=== PATIENT | female | born 1995 | race Caucasian/White ===

== ENCOUNTER 2022-09-23 14:35 | Outpatient (OUT) | payer BC, OTHER, SELFPAY ==
--- NOTE | 2022-09-23 14:37 | US_ITS ---
[address] [address] Patient Name: CARLOS ADAMS MRN: [id number] date: 1995 Sex: F Assigned Patient Location: [place] Current Patient Location: [place] Accession/Order Number: [id number] Exam Date: 09/23/2022 14:37 Report Date: 09/23/2022 16:47 At the request of: EDDIE VALIENTE Procedure: US OB growth EXAMINATION: US OB growth HISTORY: SIZE INCONSISTENT WITH DATES COMPARISON: No relevant comparison available. FINDINGS: Saavedra intrauterine gestation position: Cephalic presentation, longitudinal lie Amniotic fluid volume: 13.0 cm, normal. Largest fluid pocket: 4.8 cm Heart rate: 138 bpm BPD: 8.4 cm, 34 weeks 0 days, 65% Head circumference: 31.8 cm, 35 weeks 5 days, 77% Abdominal circumference: 32.5 cm, 36 weeks 3 days, greater than 97% Femur length: 7 cm, 35 weeks 5 days, 92% Estimated weight: 6 lbs. 2 oz., greater than 97% Clinical age: 33 weeks 2 days Clinical ROLANDO: 11/09/2022 Ultrasound age: 35 weeks 3 days Ultrasound ROLANDO: 10/25/2022 IMPRESSION: Large for gestational age with abdominal circumference and estimated weight greater than the 97th percentile Electronically authenticated by: EDITH WILLIS Date: 09/23/2022 16:47
== END 2022-09-23 14:36 ==
LOC: US 14:35
PROVIDERS: Visit Provider Obstetrics & Gynecology
DX: O26.843 Uterine size-date discrepancy, third trimester (principal); Z3A.33 33 weeks gestation of pregnancy
CPT/HCPCS: 76816

== ENCOUNTER 2022-10-04 07:44 | Outpatient (OUT) | payer BC, OTHER, SELFPAY ==
[2022-10-04 17:22] VITALS: BP 114/74; PULSE 87
--- NOTE | 2022-10-04 17:56 | US_ITS ---
[address] [address] Patient Name: CARLOS ADAMS MRN: [id number] date: 1995 Sex: F Assigned Patient Location: [facility] Current Patient Location: Accession/Order Number: [id number] Exam Date: 10/04/2022 18:00 Report Date: 10/07/2022 10:36 At the request of: EDDIE VALIENTE Procedure: US OB growth EXAMINATION: US OB growth HISTORY: LGA 036.60X9 ; large for gestational age COMPARISON: Ultrasound OB growth 09/23/2022 FINDINGS: Heart Rate: 159.8 bpm Number: 1.0 Position: CEPHALIC Amniotic Fluid Volume: 14.6 cm Maximum Vertical Pocket: 5.7 cm BIOMETRY: BPD: 8.9 cm cm; 36 weeks 1 days; 84% HC: 33.5 cmcm; 38 weeks 2 days; 92% AC: 36.1 cm cm; 40 weeks 0 days; >97% FL: 6.9 cm cm; 35 weeks 3 days; 59% EFW: 3468.7 grams; >97% FL/AC: 19.2 FL/BPD: 77.4 HC/AC: 0.9 GESTATIONAL AGE: Age by EDC: 34 weeks 6 days ROLANDO by EDC: 11/09/2022 Age by US: 37 weeks 3 days ROLANDO by US: 10/22/2022 IMPRESSION: 1. Single live intrauterine with growth detailed above. 2. Estimated weight is greater than 97th percentile. Electronically authenticated by: ABRIL SCANLON Date: 10/07/2022 10:36
--- NOTE | 2022-10-04 17:56 | US_ITS ---
[address] [address] Patient Name: CARLOS ADAMS MRN: [id number] date: 1995 Sex: F Assigned Patient Location: [facility] Current Patient Location: Accession/Order Number: [id number] Exam Date: 10/04/2022 18:00 Report Date: 10/07/2022 10:36 At the request of: EDDIE VALIENTE Procedure: US OB BPP w non-stress EXAMINATION: US OB BPP w non-stress HISTORY: LGA O36.60X9 COMPARISON: Ultrasound growth 09/23/2022 TECHNIQUE: Ultrasound biophysical profile was performed in the radiology department. BREATHING MOVEMENTS: 2.0 GROSS BODY MOVEMENTS: 2.0 TONE: 2.0 QUALITATIVE AMNIOTIC FLUID VOLUME: 2.0 PRESENTATION: CEPHALIC HEART RATE: 159.8 bpm bpm. AMNIOTIC FLUID VOLUME: 14.6 cm GESTATIONAL AGE: 34 weeks 6 days CONCLUSION: Total biophysical profile score 8.0. Electronically authenticated by: ABRIL SCANLON Date: 10/07/2022 10:36
== END 2022-10-04 19:00 | disposition home or self-care (01) ==
LOC: US 17:11 → FBC 17:17
PROVIDERS: Visit Provider Obstetrics & Gynecology
DX: O36.63X0 Maternal care for excessive fetal growth, third trimester, not applicable or unspecified (principal); Z3A.34 34 weeks gestation of pregnancy
CPT/HCPCS: 76816; 76818

== ENCOUNTER 2022-10-08 10:06 | Outpatient (OUT) | payer BC, OTHER, SELFPAY ==
[2022-10-08 10:21] VITALS: BP 106/64; PULSE 74
== END 2022-10-08 10:52 | disposition home or self-care (01) ==
LOC: US 10:07 → FBC 10:08
PROVIDERS: Visit Provider Obstetrics & Gynecology
DX: O36.60X0 Maternal care for excessive fetal growth, unspecified trimester, not applicable or unspecified (principal); Z3A.00 Weeks of gestation of pregnancy not specified
CPT/HCPCS: 59025

== ENCOUNTER 2022-10-11 10:03 | Outpatient (OUT) | payer BC, OTHER, SELFPAY ==
--- NOTE | 2022-10-11 10:03 | US_ITS ---
[address] [address] Patient Name: CARLOS ADAMS MRN: [id number] date: 1995 Sex: F Assigned Patient Location: [facility] Current Patient Location: Accession/Order Number: [id number] Exam Date: 10/11/2022 10:04 Report Date: 10/11/2022 16:34 At the request of: EDDIE VALIENTE Procedure: US OB BPP w non-stress EXAMINATION: US OB BPP w non-stress HISTORY: O36.60X9 LGA COMPARISON: No relevant comparison available. TECHNIQUE: Ultrasound biophysical profile was performed in the radiology department. FINDINGS: BREATHING MOVEMENTS: 2.0 GROSS BODY MOVEMENTS: 2.0 TONE: 2.0 QUALITATIVE AMNIOTIC FLUID VOLUME: 2.0 PRESENTATION: CEPHALIC HEART RATE: 146.7 bpm H.B./min AMNIOTIC FLUID VOLUME: 13.9 cm cm GESTATIONAL AGE: 35 weeks 6 days CONCLUSION: Total biophysical profile score: 8.0 Electronically authenticated by: EDITH WILLIS Date: 10/11/2022 16:34
== END 2022-10-11 10:56 | disposition home or self-care (01) ==
LOC: US 10:03 → FBC 10:06
PROVIDERS: Visit Provider Obstetrics & Gynecology
DX: O36.63X0 Maternal care for excessive fetal growth, third trimester, not applicable or unspecified (principal); Z3A.35 35 weeks gestation of pregnancy
CPT/HCPCS: 76818

== ENCOUNTER 2022-10-15 10:00 | Outpatient (OUT) | payer BC, OTHER, SELFPAY ==
[2022-10-15 10:07] VITALS: BP 110/68; PULSE 77
== END 2022-10-15 10:30 | disposition home or self-care (01) ==
LOC: FBCO 10:04 → FBC 10:04
PROVIDERS: Visit Provider Obstetrics & Gynecology
DX: O36.6 Maternal care for excessive fetal growth (principal)
CPT/HCPCS: 59025; 87081

== ENCOUNTER 2022-10-15 21:52 | Outpatient (REF) | payer BC, OTHER, SELFPAY | END 2022-10-15 21:53 | disposition home or self-care (01) | LOC: LAB 21:52 | PROVIDERS: Visit Provider Obstetrics & Gynecology | DX: Z34.93 Encounter for supervision of normal pregnancy, unspecified, third trimester (principal) | CPT/HCPCS: 87081 ==

== ENCOUNTER 2022-10-18 09:55 | Outpatient (OUT) | payer BC, OTHER, SELFPAY ==
--- NOTE | 2022-10-18 09:56 | US_ITS ---
[address] [address] Patient Name: CARLSO ADAMS MRN: [id number] date: 1995 Sex: F Assigned Patient Location: [facility] Current Patient Location: Accession/Order Number: [id number] Exam Date: 10/18/2022 09:57 Report Date: 10/18/2022 19:04 At the request of: EDDIE VALIENTE Procedure: US OB BPP w non-stress EXAMINATION: US OB BPP w non-stress HISTORY: O36.60X9 LARGE FOR GESTATIONAL AGE COMPARISON: Ultrasound biophysical 10/11/2022 TECHNIQUE: Ultrasound biophysical profile was performed in the radiology department. BREATHING MOVEMENTS: 2.0 GROSS BODY MOVEMENTS: 2.0 TONE: 2.0 QUALITATIVE AMNIOTIC FLUID VOLUME: 2.0 PRESENTATION: CEPHALIC HEART RATE: 153.4 bpm bpm. AMNIOTIC FLUID VOLUME: 14.8 cm GESTATIONAL AGE: 36 weeks 6 days CONCLUSION: Total biophysical profile score 8.0. Electronically authenticated by: ABRIL SCANLON Date: 10/18/2022 19:04
[2022-10-18 10:33] VITALS: BP 110/69; PULSE 74
== END 2022-10-18 11:10 | disposition home or self-care (01) ==
LOC: US 09:55 → FBC 09:57
PROVIDERS: Visit Provider Obstetrics & Gynecology
DX: O36.63X0 Maternal care for excessive fetal growth, third trimester, not applicable or unspecified (principal); Z3A.36 36 weeks gestation of pregnancy
CPT/HCPCS: 76818

== ENCOUNTER 2022-10-22 10:04 | Outpatient (OUT) | payer BC, OTHER, SELFPAY ==
[2022-10-22 10:14] VITALS: BP 118/76; PULSE 81
== END 2022-10-22 10:34 | disposition home or self-care (01) ==
LOC: FBCO 10:05 → FBC 10:07
PROVIDERS: Visit Provider Midwife
DX: O36.63X0 Maternal care for excessive fetal growth, third trimester, not applicable or unspecified (principal); Z3A.00 Weeks of gestation of pregnancy not specified
CPT/HCPCS: 59025

== ENCOUNTER 2022-10-25 10:02 | Outpatient (OUT) | payer BC, OTHER, SELFPAY ==
--- NOTE | 2022-10-25 10:03 | US_ITS ---
[address] [address] Patient Name: CARLOS ADAMS MRN: [id number] date: 1995 Sex: F Assigned Patient Location: [facility] Current Patient Location: Accession/Order Number: [id number] Exam Date: 10/25/2022 10:07 Report Date: 10/25/2022 18:07 At the request of: EDDIE VALIENTE Procedure: US OB BPP w non-stress EXAMINATION: US OB BPP w non-stress HISTORY: LGA 9O36.60X9 COMPARISON: No relevant comparison available. TECHNIQUE: Ultrasound biophysical profile was performed in the radiology department. FINDINGS: BREATHING MOVEMENTS: 2.0 GROSS BODY MOVEMENTS: 2.0 TONE: 2.0 QUALITATIVE AMNIOTIC FLUID VOLUME: 2.0 PRESENTATION: CEPHALIC HEART RATE: 147.5 bpm H.B./min AMNIOTIC FLUID VOLUME: 12.9 cm cm GESTATIONAL AGE: 37 weeks 6 days CONCLUSION: Total biophysical profile score: 8.0 Electronically authenticated by: EDITH WILLIS Date: 10/25/2022 18:07
[2022-10-25 10:41] VITALS: BP 115/75; PULSE 82
== END 2022-10-25 11:06 | disposition home or self-care (01) ==
LOC: US 10:02 → FBC 10:03
PROVIDERS: Visit Provider Obstetrics & Gynecology
DX: O36.63X0 Maternal care for excessive fetal growth, third trimester, not applicable or unspecified (principal); Z3A.37 37 weeks gestation of pregnancy
CPT/HCPCS: 59025; 76818

== ENCOUNTER 2022-10-29 10:12 | Outpatient (OUT) | payer BC, OTHER, SELFPAY ==
[2022-10-29 10:27] VITALS: BP 124/70; PULSE 102
== END 2022-10-29 10:49 | disposition home or self-care (01) ==
LOC: FBCO 10:13 → FBC 10:14
PROVIDERS: Visit Provider Obstetrics & Gynecology
DX: O36.6 Maternal care for excessive fetal growth (principal); Z3A.00 Weeks of gestation of pregnancy not specified
CPT/HCPCS: 59025

== ENCOUNTER 2022-11-01 10:00 | Outpatient (OUT) | payer BC, OTHER, SELFPAY ==
--- NOTE | 2022-11-01 10:13 | US_ITS ---
[address] [address] Patient Name: CARLOS ADAMS MRN: [id number] date: 1995 Sex: F Assigned Patient Location: [facility] Current Patient Location: Accession/Order Number: [id number] Exam Date: 11/01/2022 10:15 Report Date: 11/01/2022 15:39 At the request of: EDDIE VALIENTE Procedure: US OB BPP w non-stress EXAMINATION: US OB BPP w non-stress HISTORY: LGA O36.60X9 COMPARISON: Ultrasound biophysical 10/25/2022 TECHNIQUE: Ultrasound biophysical profile was performed in the radiology department. BREATHING MOVEMENTS: 2.0 GROSS BODY MOVEMENTS: 2.0 TONE: 2.0 QUALITATIVE AMNIOTIC FLUID VOLUME: 2.0 PRESENTATION: CEPHALIC HEART RATE: 147.5 bpm bpm. AMNIOTIC FLUID VOLUME: 8.0 cm GESTATIONAL AGE: 38 weeks 6 days CONCLUSION: Total biophysical profile score 8.0. Electronically authenticated by: ABRIL SCANLON Date: 11/01/2022 15:39
--- NOTE | 2022-11-01 10:14 | US_ITS ---
[address] [address] Patient Name: CARLOS ADAMS MRN: [id number] date: 1995 Sex: F Assigned Patient Location: [facility] Current Patient Location: Accession/Order Number: [id number] Exam Date: 11/01/2022 10:15 Report Date: 11/01/2022 15:16 At the request of: EDDIE VALIENTE Procedure: US OB growth EXAMINATION: US OB growth HISTORY: LGA 036.60X9 COMPARISON: Ultrasound OB growth 10/04/2022 FINDINGS: Heart Rate: 147.5 bpm Number: 1.0 Position: CEPHALIC Amniotic Fluid Volume: 8.0 cm Maximum Vertical Pocket: 3.3 cm BIOMETRY: BPD: 9.3 cm cm; 37 weeks 6 days; 55% HC: 35.9 cmcm; not recorded; 96% AC: 36.4 cm cm; 40 weeks 2 days; 95% FL: 7.6 cm cm; 38 weeks 5 days; 53% EFW: 3924.6 grams; 88% FL/AC: 20.8 FL/BPD: 81.3 HC/AC: 1.0 GESTATIONAL AGE: Age by EDC: 38 weeks 6 days ROLANDO by EDC: 11/09/2022 Age by US: 39 weeks 0 days ROLANDO by US: 11/08/2022 US/US OB growth IMPRESSION: 1. Single live intrauterine with growth detailed above. Electronically authenticated by: ABRIL SCANLON Date: 11/01/2022 15:16
[2022-11-01 10:44] VITALS: BP 112/68; PULSE 76
== END 2022-11-01 11:18 | disposition home or self-care (01) ==
LOC: US 10:07 → FBC 10:07
PROVIDERS: Visit Provider Obstetrics & Gynecology
DX: O36.6 Maternal care for excessive fetal growth (principal); Z3A.00 Weeks of gestation of pregnancy not specified
CPT/HCPCS: 76816; 76818

== ENCOUNTER 2022-11-05 10:00 | Outpatient (OUT) | payer BC, OTHER, SELFPAY ==
[2022-11-05 10:10] VITALS: BP 121/78; PULSE 71
== END 2022-11-05 10:35 | disposition home or self-care (01) ==
LOC: FBCO 10:02 → FBC 10:03
PROVIDERS: Visit Provider Midwife
DX: O36.6 Maternal care for excessive fetal growth (principal)
CPT/HCPCS: 59025

== ENCOUNTER 2022-11-08 04:45 | Inpatient (IN) | payer BC, OTHER, SELFPAY ==
[2022-11-08] VITALS (116 sets, daily range): BP systolic 95–144; BP diastolic 55–92; PULSE 58–141; RESP 6–25; TEMP 36.1–37.2; O2SAT 95–99
[2022-11-08 05:35] LABS: Hematocrit 32.8 % (36.0-48.0); Hemoglobin 10.8 g/dL (12.0-16.0); Mean Corpuscular HGB Conc 32.9 g/dL (29.9-35.2); Mean Corpuscular Hemoglobin 26.7 pg (26.7-34.0); Mean Platelet Volume 11.2 fL (9.5-13.5); Platelet Count 183 10^3/uL (150-450); Red Blood Count 4.05 10^6/uL (4.20-5.40); Red Cell Distribution Width 13.2 % (11.0-15.0); White Blood Count 9.2 10^3/uL (4.0-11.0)
[2022-11-08] MEDS: 0.9 % SODIUM CHLORIDE 1,000 ML 125 ML IV (05:35)
[2022-11-08 05:52] LABS: Amphetamine Screen Urine NEGATIVE (NEGATIVE); Barbiturates Screen Urine NEGATIVE (NEGATIVE); Benzodiazepines Screen Urine NEGATIVE (NEGATIVE); Buprenorphine Screen Urine NEGATIVE (NEGATIVE); Cannabinoid Screen Urine NEGATIVE (NEGATIVE); Cocaine Screen Urine NEGATIVE (NEGATIVE); Methadone Screen Urine NEGATIVE (NEGATIVE); Methamphetamines Screen Urine NEGATIVE (NEGATIVE); Opiate Screen Urine NEGATIVE (NEGATIVE); Oxycodone Screen Urine NEGATIVE (NEGATIVE); Phencyclidine Screen Urine NEGATIVE (NEGATIVE); Tricyclic Antidepressant Urine NEGATIVE (NEGATIVE)
[2022-11-08] MEDS: OXYTOCIN 10 UNIT in 0.9 % SODIUM CHLORIDE 500 ML 6.012 UNIT IV (06:11)
--- NOTE | 2022-11-08 07:24 | W.PC.ACHO ---
Registration Status: ADM IN Primary Language: Welsh Preferred Language: Welsh Active Medications Generic Name Dose Route Start Last Admin Trade Name Radha PRN Reason Stop Dose Admin Carboprost Tromethamine 250 mcg 11/08/22 04:48 Carboprost Tromethamine 250 Mcg/Ml 1 Ml Vial IM Q15M PRN Bleeding Diphenhydramine HCl 25 mg 11/08/22 05:22 Diphenhydramine Hcl 50 Mg/Ml (1ml) Vial IV Q6H PRN Itching Ephedrine Sulfate 5 mg 11/08/22 05:22 Ephedrine Sulfate 50 Mg/Ml Vial IV Q5M PRN Blood Pressure - Low Fentanyl Citrate 100 mcg 11/08/22 05:22 Fentanyl Citrate/Pf 100 Mcg/2 Ml Vial EPIDURAL Q4H PRN Pain Sodium Chloride 1,000 mls @ 125 mls/hr 11/08/22 05:00 11/08/22 05:35 Sodium Chloride 0.9% 1,000 Ml IV 125 mls/hr .Q8H PK Administration Oxytocin 10 unit/ Sodium 501 mls @ 6.012 mls/hr 11/08/22 05:00 11/08/22 06:11 Chloride IV 2 milliunit/min Q24H PK 6.012 mls/hr Administration 2 MILLIUNIT/MIN Ropivacaine/Sodium Chloride 400 mg in 200 mls @ 6 mls/hr 11/08/22 05:30 Naropin 0.2% 400 Mg/200 Ml Bag EPIDURAL Q24H PK Lidocaine 5 ml 11/08/22 04:48 Lidocaine Viscous 2% 15 Ml Topical Solution TOPICAL ONCE PRN Pain Lidocaine 1 ml 11/08/22 04:48 Lidocaine Hcl 1% 200 Mg/20 Ml Mdv INJ ONCE PRN Pain Lidocaine 5 ml 11/08/22 05:22 Lidocaine Hcl 2% Pf 100 Mg/5 Ml Vial INJ Q1H PRN Labor Pain Methylergonovine Maleate 0.2 mg 11/08/22 04:48 Methylergonovine Maleate 0.2 Mg Tablet PO Q4H PRN Uterine Contractility/Contract Methylergonovine Maleate 0.2 mg 11/08/22 04:48 Methylergonovine Maleate 0.2 Mg/Ml Ampule IM ONCE PRN Uterine Contractility/Contract Misoprostol 600 mcg 11/08/22 04:48 Misoprostol 100 Mcg Tablet PO ONCE PRN Uterine Bleeding Misoprostol 800 mcg 11/08/22 04:48 Misoprostol 100 Mcg Tablet SL ONCE PRN Uterine Bleeding Misoprostol 1,000 mcg 11/08/22 04:48 Misoprostol 100 Mcg Tablet TX ONCE PRN Uterine Bleeding Ondansetron HCl 4 mg 11/08/22 04:48 Ondansetron Pf 4 Mg/2 Ml Vial IV Q6H PRN Nausea And Vomiting Ondansetron HCl 4 mg 11/08/22 04:48 Ondansetron 4 Mg Rapdis Tablet SL Q6H PRN Nausea And Vomiting Oxytocin 10 unit 11/08/22 04:48 Oxytocin 100 Unit/10 Ml Vial IM ONCE PRN Uterine Bleeding Diet Category Date Time Status Clear Liquid Diet Diet 11/08/22 Breakfast Active Consults Category Date Time Status Consult to Anesthesiology Routine Cons 11/08/22 Ordered IV Insertion/Site Date of IV Line Insertion [20g 11/08/22 right Hand] IV Insertion Time [20g right 05:18 Hand] Neurology Patient orientation (short person,place,time,situation list)
[2022-11-08] MEDS: ROPIVACAINE HCL/PF 400 MG/200 ML PREMIX 6 MG EPIDURAL (08:03)
[2022-11-08] MEDS: FENTANYL CITRATE/PF 100 MCG/2 ML VIAL EPIDURAL (08:04)
[2022-11-08] MEDS: 0.9 % SODIUM CHLORIDE 1,000 ML 1000 ML IV ×2 (08:06→15:02)
--- NOTE | 2022-11-08 14:43 | PC.NURSE ---
b called iv wo pit off
[2022-11-08] MEDS: CLINDAMYCIN PHOSPHATE/D5W 900 MG/50 ML PIGGYBACK IV (15:03)
[2022-11-08] MEDS: FAMOTIDINE/PF 20 MG/2 ML VIAL IV (15:15)
[2022-11-08] MEDS: LACTATED RINGER'S SOLUTION 1,000 ML 50 ML IV (15:39)
[2022-11-08 19:14] LABS: Basophils Percent Auto 0.2 % (0.2-2.0); Hematocrit 27.9 % (36.0-48.0); Hemoglobin 8.8 g/dL (12.0-16.0); Immature Granulocytes Abs Auto 0.06 10^3/uL (0.00-0.03); Immature Granulocytes Pct Auto 0.5 % (0.0-0.5); Lymphocytes Absolute Auto 1.1 10^3/uL (1.2-3.8); Lymphocytes Percent Auto 9.2 % (20.5-60.0); Mean Corpuscular HGB Conc 31.5 g/dL (29.9-35.2); Mean Corpuscular Hemoglobin 26.4 pg (26.7-34.0); Mean Corpuscular Volume 83.8 fL (81.0-99.0); Monocytes Absolute Auto 1.1 10^3/uL (0.3-0.8); Monocytes Percent Auto 9.6 % (1.7-12.0); Neutrophils Absolute Auto 9.5 10^3/uL (1.4-6.5); Neutrophils Percent Auto 80.5 % (43.0-75.0); Platelet Count 151 10^3/uL (150-450); Red Blood Count 3.33 10^6/uL (4.20-5.40); Red Cell Distribution Width 13.3 % (11.0-15.0); White Blood Count 11.9 10^3/uL (4.0-11.0)
[2022-11-08] MEDS: CARBOPROST TROMETHAMINE 250 MCG/ML 1 ML VIAL IM (19:40)
[2022-11-08] MEDS: MORPHINE SULFATE 2 MG/ML SYRINGE 1 MG IV (19:40)
--- NOTE | 2022-11-08 21:34 | PC.NURSE ---
1830 pt has moderate gush blood, fundus firm, pericare done, gushes when lifts buttocks, pericare done and chux changed
--- NOTE | 2022-11-08 21:35 | PC.NURSE ---
1840 Pt states feels moderately large gush blood with one small clot, fundal massage, deviated to rt, Dr Bhatt called and notified, solorio draining watermelon pink color
--- NOTE | 2022-11-08 21:37 | PC.NURSE ---
[address] Bhatt, uterus now deviated to rt, large rubra noted, pt appears pale to lips, solorio now appears diamond red with clots, third chux and peripad saturated through with blood changed
--- NOTE | 2022-11-08 21:39 | PC.NURSE ---
190 Dr carcamo en route, orders for blood recieved after cbc drawn
[2022-11-08] MEDS: CLINDAMYCIN PHOSPHATE/D5W 900 MG/50 ML PIGGYBACK 100 MG IV (22:31)
[2022-11-09] VITALS (18 sets, daily range): BP systolic 102–129; BP diastolic 61–76; PULSE 67–90; RESP 9–20; TEMP 36.8–37.3; O2SAT 98–100
--- NOTE | 2022-11-09 00:42 | PC.NURSE ---
1930 Dr Bhatt at bedside, after assessing the patient, he manually evacuates large amount of clots and blood. orders received for stat morphine 1mg IV and hemabate per protocol. 1949 solorio irrigated and pericare provided. 1999 fundus 1/u, small to moderate lochia without clots. 1999 Dr Bhatt remains on unit and orders received for 1 unit PRBC'S now with PRN order for 2nd unit of PRBC's if patient becomes symptomatic and repeat cbc in the morning.
--- NOTE | 2022-11-09 01:24 | PC.NURSE ---
blood loss total from [id number] free flow and manual evacuation with clots.
[2022-11-09] MEDS: 0.9 % SODIUM CHLORIDE 1,000 ML 125 ML IV ×2 (02:00→08:45)
[2022-11-09] MEDS: KETOROLAC TROMETHAMINE 30 MG/ML VIAL IVP ×3 (04:29→20:38)
[2022-11-09 05:53] LABS: Basophils Percent Auto 0.2 % (0.2-2.0); Eosinophils Percent Auto 0.2 % (0.9-7.0); Hemoglobin 7.3 g/dL (12.0-16.0); Immature Granulocytes Abs Auto 0.03 10^3/uL (0.00-0.03); Immature Granulocytes Pct Auto 0.3 % (0.0-0.5); Lymphocytes Absolute Auto 1.4 10^3/uL (1.2-3.8); Lymphocytes Percent Auto 15.4 % (20.5-60.0); Mean Corpuscular HGB Conc 32.7 g/dL (29.9-35.2); Mean Corpuscular Hemoglobin 27.1 pg (26.7-34.0); Mean Corpuscular Volume 82.9 fL (81.0-99.0); Mean Platelet Volume 11.1 fL (9.5-13.5); Monocytes Absolute Auto 0.8 10^3/uL (0.3-0.8); Monocytes Percent Auto 8.3 % (1.7-12.0); Neutrophils Absolute Auto 6.9 10^3/uL (1.4-6.5); Neutrophils Percent Auto 75.6 % (43.0-75.0); Platelet Count 119 10^3/uL (150-450); Red Blood Count 2.69 10^6/uL (4.20-5.40); Red Cell Distribution Width 13.5 % (11.0-15.0); White Blood Count 9.1 10^3/uL (4.0-11.0)
[2022-11-09 06:14] LABS: Hematocrit 22.3 % (36.0-48.0)
[2022-11-09] MEDS: DOCUSATE SODIUM 100 MG CAPSULE PO ×2 (08:18→20:38)
[2022-11-09] MEDS: CITALOPRAM HYDROBROMIDE 20 MG TABLET 10 MG PO (08:18)
--- NOTE | 2022-11-09 10:13 | P.OBPN_ITS ---
OB - PN: Subj Subjective Patient comments: no complaints, pain well controlled, tolerating diet and flatus present [place] status: doing well Exam Constitutional Vital Signs, click to edit/add: Last Vital Signs Temp 98.3 F 11/09/22 04:30 Pulse 75 11/09/22 04:30 Resp 16 11/09/22 04:30 BP 115/72 11/09/22 04:30 Pulse Ox 100 11/09/22 04:30 O2 Del Method Room Air 11/09/22 04:30 Documenting provider has reviewed patient's vital signs: yes Common normals: no apparent distress Respiratory Common normals: normal respiratory effort and clear to auscultation bilaterally Cardio Common normals: regular rate and regular rhythm GI Common normals: Normal to inspection, nondistended, normoactive bowel sounds present and soft to palpation Extremity Common normals: no clubbing, cyanosis or edema and no calf tenderness Results Labs Labs: Short CBC 11/08/22 11/09/22 Range/Units 19:05 05:45 WBC 11.9 H 9.1 (4.0-11.0) 10^3/uL Hgb 8.8 L 7.3 L (12.0-16.0) g/dL Hct 27.9 L 22.3 L* (36.0-48.0) % Plt Count 151 119 L (150-450) 10^3/uL OB - PN: A/P Assessment and Plan (1) Acute blood loss anemia: Assessment and Plan: transfuse 2u prbcs Plan acute blood loss anemia-obtained 2u prbcs, cont to monitor, pt doing well Plan - day: 1 Plan: routine postop care Time Spent with Patient Time: Total time spent is greater than 50% in coordination of care (as documented) at patient's floor/unit and/or counseling patient: Total time spent with greater than 50% in coordination of care (as documented) at patient's floor/unit and/or counseling patient: less than 15 minutes
--- NOTE | 2022-11-09 14:48 | P.OBPRC_ITS ---
Procedure Pre-op/Post-op diagnoses: Pre-Op/Post-Op Diagnoses Operation Date: 11/08/22 15:30 <No data on this case meets the specified criteria> Procedure: Procedures Operation Date: 11/08/22 15:30 Actual Procedure Side Surgeon p Not Applicable Asif Bhatt DO Administrative Volunteer: Harmony Guzman Estimated blood loss (mL): 575 Disposition: PACU Anesthesia type: Epidural
--- NOTE | 2022-11-09 14:49 | P.ON_ITS ---
Brief Operative Note Date of procedure: 11/09/22 Pre-op diagnosis: iup at 39wks, lga, nonreassuring heart tones Post-op diagnosis: same Procedure: NAME OF PROCEDURE: [ section ] PROCEDURE: Patient was taken back to the Operating Room where she was given a spinal anesthesia with Duramorph without difficulty. She was prepped and draped in the normal sterile fashion. A Pfannenstiel skin incision was then made 2 cm above the symphysis pubis and carried down to underlying rectus fascia using a Bovie. The fascia was incised in the midline and extended laterally using Villagomez scissors. Two Brandon clamps were placed on the superior aspect of the fascia and dissected off the underlying rectus muscles. The same was performed on the inferior aspect as well. The muscles were then in the midline. Peritoneum was identified and entered bluntly. The peritoneum was then extended superiorly and inferiorly with good visualization of the bladder. The bladder blade was inserted. A low transverse incision was made on the patient's uterus and extended laterally digitally. The was then delivered atraumatically after the bladder blade was removed in the cephalic position. The cord was clamped and cut. Cord blood was obtained. The was handed off to awaiting team. The patient's placenta was spontaneously delivered. The uterus was then exteriorized. The uterus was cleared of all clots and debris. The bladder blade was reinserted. The patient's uterine incision was closed using #0 Vicryl in a running lock fashion. Excellent hemostasis was assured. The uterus was then returned to the patient's abdomen. The patient's abdomen was copiously irrigated using warm saline. Peritoneal gutters were cleared of all clots and debris. Again excellent hemostasis was assured. The patient's peritoneum was closed using 3-0 Vicryl in a running fashion. The patient's fascia was closed using #0 Vicryl in a running fashion. The patient's skin was closed using 4-0 Vicryl subcuticularly. The patient tolerated the procedure well. Sponge, lap, and needle counts were correct x2. The patient was taken to the Recovery Room in stable condition. Anesthesia: epidural Surgeon: Asif Bhatt [employer] Lab Technician: Harmony Guzman Estimated blood loss (mL): 575 Pathology: other (placenta) Condition: stable Disposition: floor
--- NOTE | 2022-11-09 19:44 | W.PC.ACHO ---
Registration Status: ADM IN Primary Language: Indonesian Preferred Language: Indonesian Active Medications Generic Name Dose Route Start Last Admin Trade Name Freq PRN Reason Stop Dose Admin Al Hydroxide/Mg Hydroxide 2,400 mg 11/08/22 15:54 Magnesium Hydroxide 2,400 Mg/10 Ml Oral.Susp PO Q6H PRN Dyspepsia Carboprost Tromethamine 250 mcg 11/08/22 04:48 11/08/22 19:40 Carboprost Tromethamine 250 Mcg/Ml 1 Ml Vial IM 250 mcg Q15M PRN Administration Bleeding Celecoxib 10 mg 11/09/22 09:00 11/09/22 08:18 Citalopram Hydrobromide 20 Mg Tablet PO 10 mg QD PK Administration Diphenhydramine HCl 25 mg 11/08/22 05:22 Diphenhydramine Hcl 50 Mg/Ml (1ml) Vial IV Q6H PRN Itching Diphenhydramine HCl 12.5 mg 11/08/22 08:46 Diphenhydramine Hcl 50 Mg/Ml (1ml) Vial IV ONCE PRN Itching Docusate Sodium 100 mg 11/09/22 09:00 11/09/22 08:18 Docusate Sodium 100 Mg Capsule PO 100 mg BID PK Administration Ephedrine Sulfate 5 mg 11/08/22 05:22 Ephedrine Sulfate 50 Mg/Ml Vial IV Q5M PRN Blood Pressure - Low Fentanyl Citrate 100 mcg 11/08/22 05:22 11/08/22 08:04 Fentanyl Citrate/Pf 100 Mcg/2 Ml Vial EPIDURAL 100 mcg Q4H PRN Administration Pain Sodium Chloride 1,000 mls @ 125 mls/hr 11/08/22 05:00 11/09/22 08:45 Sodium Chloride 0.9% 1,000 Ml IV 125 mls/hr .Q8H PK Administration Oxytocin 10 unit/ Sodium 501 mls @ 6.012 mls/hr 11/08/22 05:00 11/08/22 06:11 Chloride IV 2 milliunit/min Q24H PK 6.012 mls/hr Administration 2 MILLIUNIT/MIN Ropivacaine/Sodium Chloride 400 mg in 200 mls @ 6 mls/hr 11/08/22 05:30 11/08/22 08:03 Naropin 0.2% 400 Mg/200 Ml Bag EPIDURAL 6 ml/hr Q24H PK 6 mls/hr Administration Lactated Ringer's 1,000 mls @ 50 mls/hr 11/08/22 15:45 11/08/22 15:39 Lactated Ringers IV 50 mls/hr .Q20H PK Administration Ibuprofen 800 mg 11/08/22 15:54 Ibuprofen 400 Mg Tablet PO Q8H PRN Pain Ketorolac Tromethamine 30 mg 11/08/22 15:54 11/09/22 13:24 Ketorolac Tromethamine 30 Mg/Ml Vial IVP 11/10/22 15:55 30 mg Q6H PRN Administration Pain Lidocaine 5 ml 11/08/22 04:48 Lidocaine Viscous 2% 15 Ml Topical Solution TOPICAL ONCE PRN Pain Lidocaine 1 ml 11/08/22 04:48 Lidocaine Hcl 1% 200 Mg/20 Ml Mdv INJ ONCE PRN Pain Lidocaine 5 ml 11/08/22 05:22 Lidocaine Hcl 2% Pf 100 Mg/5 Ml Vial INJ Q1H PRN Labor Pain Methylergonovine Maleate 0.2 mg 11/08/22 04:48 Methylergonovine Maleate 0.2 Mg Tablet PO Q4H PRN Uterine Contractility/Contract Methylergonovine Maleate 0.2 mg 11/08/22 04:48 Methylergonovine Maleate 0.2 Mg/Ml Ampule IM ONCE PRN Uterine Contractility/Contract Misoprostol 600 mcg 11/08/22 04:48 Misoprostol 100 Mcg Tablet PO ONCE PRN Uterine Bleeding Misoprostol 800 mcg 11/08/22 04:48 Misoprostol 100 Mcg Tablet SL ONCE PRN Uterine Bleeding Misoprostol 1,000 mcg 11/08/22 04:48 Misoprostol 100 Mcg Tablet [place] ONCE PRN Uterine Bleeding Omeprazole 40 mg 11/09/22 09:00 11/09/22 08:20 Omeprazole 20 Mg Capsule.Dr PO Not Given QD PK Ondansetron HCl 4 mg 11/08/22 04:48 Ondansetron Pf 4 Mg/2 Ml Vial IV Q6H PRN Nausea And Vomiting Ondansetron HCl 4 mg 11/08/22 04:48 Ondansetron 4 Mg Rapdis Tablet SL Q6H PRN Nausea And Vomiting Ondansetron HCl 4 mg 11/08/22 15:54 Ondansetron Pf 4 Mg/2 Ml Vial IV Q6H PRN Nausea And Vomiting Ondansetron HCl 4 mg 11/08/22 15:54 Ondansetron 4 Mg Rapdis Tablet PO Q6H PRN Nausea And Vomiting Oxycodone/Acetaminophen 1 each 11/08/22 15:54 Oxycodone Hcl/Acetaminophen 5-325 Mg Tablet PO Q4H PRN Pain Oxycodone/Acetaminophen 2 each 11/08/22 15:54 Oxycodone Hcl/Acetaminophen 5-325 Mg Tablet PO Q4H PRN Pain Oxytocin 10 unit 11/08/22 04:48 Oxytocin 100 Unit/10 Ml Vial IM ONCE PRN Uterine Bleeding Senna 17.2 mg 11/08/22 20:00 Sennosides 8.6 Mg Tablet PO QHS PRN Constipation Simethicone 80 mg 11/08/22 15:54 Simethicone 80 Mg Tab.Chew PO QID PRN Abdominal Distention IV Insertion/Site Date of IV Line Insertion [20g 11/08/22 right Hand] IV Insertion Time [20g right 19:45 Hand] Respiratory Lung sounds [Bilateral Upper clear Lobe] Lung sounds [Bilateral Upper clear Lobe] Pulse Oximetry 100 Pulse Oximetry 100 Pulse Oximetry 100 Pulse Oximetry 100 Pulse Oximetry 100 Pulse Oximetry 99 Pulse Oximetry 98 Pulse Oximetry 99 Pulse Oximetry 99 Pulse Oximetry 98 Pulse Oximetry 98 Pulse Oximetry 98 Pulse Oximetry 98 Pulse Oximetry 98 Pulse Oximetry 97 Pulse Oximetry 97 Pulse Oximetry 97 Pulse Oximetry 98 Pulse Oximetry 98 Oxygen Delivery Method Room Air Oxygen Delivery Method Room Air Oxygen Delivery Method Room Air Oxygen Delivery Method Room Air Oxygen Delivery Method Room Air Oxygen Delivery Method Room Air Oxygen Delivery Method Room Air Oxygen Delivery Method Room Air Oxygen Delivery Method Room Air Oxygen Delivery Method Room Air Oxygen Delivery Method Room Air Catheter Date Urinary Catheter Removed 11/09/22
[2022-11-09] MEDS: SIMETHICONE 80 MG TAB.CHEW PO (20:37)
[2022-11-10] VITALS (7 sets, daily range): BP systolic 111–142; BP diastolic 63–89; PULSE 60–82; RESP 16–20; TEMP 36.6–37; O2SAT 97–100
[2022-11-10] MEDS: ACETAMINOPHEN 500 MG TABLET 1000 MG PO (00:16)
[2022-11-10 07:50] LABS: Basophils Percent Auto 0.1 % (0.2-2.0); Eosinophils Absolute Auto 0.1 10^3/uL (0.0-0.7); Eosinophils Percent Auto 0.9 % (0.9-7.0); Hematocrit 24.1 % (36.0-48.0); Hemoglobin 7.9 g/dL (12.0-16.0); Immature Granulocytes Abs Auto 0.11 10^3/uL (0.00-0.03); Immature Granulocytes Pct Auto 1.1 % (0.0-0.5); Lymphocytes Absolute Auto 1.9 10^3/uL (1.2-3.8); Lymphocytes Percent Auto 19.7 % (20.5-60.0); Mean Corpuscular HGB Conc 32.8 g/dL (29.9-35.2); Mean Corpuscular Hemoglobin 27.1 pg (26.7-34.0); Mean Corpuscular Volume 82.8 fL (81.0-99.0); Mean Platelet Volume 10.5 fL (9.5-13.5); Monocytes Absolute Auto 0.7 10^3/uL (0.3-0.8); Neutrophils Percent Auto 71.2 % (43.0-75.0); Nucleated Red Blood Cells 0; Platelet Count 132 10^3/uL (150-450); Red Blood Count 2.91 10^6/uL (4.20-5.40); Red Cell Distribution Width 14.3 % (11.0-15.0); White Blood Count 9.8 10^3/uL (4.0-11.0)
[2022-11-10] MEDS: KETOROLAC TROMETHAMINE 30 MG/ML VIAL IVP ×2 (08:00→14:17)
--- NOTE | 2022-11-10 08:04 | P.OBPN_ITS ---
OB - PN: Subj Subjective Patient comments: no complaints [place] status: doing well [place] feeding status: exclusively Exam Constitutional Vital Signs, click to edit/add: Last Vital Signs Temp 98.4 F 11/09/22 23:30 Pulse 86 11/09/22 23:30 Resp 18 11/09/22 23:30 BP 123/75 11/09/22 23:30 Pulse Ox 98 11/09/22 23:30 O2 Del Method Room Air 11/09/22 23:30 Documenting provider has reviewed patient's vital signs: yes Common normals: no apparent distress and oriented x3 General appearance: cooperative Orientation/consciousness: Yes awake, Yes oriented to person, Yes oriented to place and Yes oriented to time HENMT Common normals: normocephalic Neck & C-Spine Common normals: full ROM Lymph Lymphatic: no lymphadenopathy noted Chest Common normals: inspection of chest normal Respiratory Common normals: normal respiratory effort Auscultation: clear to auscultation bilaterally Cardio Common normals: regular rate and regular rhythm Rate: regular rate Rhythm: regular rhythm GI Common normals: Normal to inspection, nondistended, normoactive bowel sounds present Inspection: normal to inspection Auscultation: normoactive bowel sounds Common normals: no CVA tenderness Back & Pelvis Common normals: no CVA tenderness Extremity Common normals: normal to inspection Neuro Common normals: oriented x3 Psych Common normals: mental status grossly normal and thought process normal Attitude: calm Activity/motor behavior: appropriate eye contact Results Labs Labs: Short CBC 11/10/22 Range/Units 07:30 WBC 9.8 (4.0-11.0) 10^3/uL Hgb 7.9 L (12.0-16.0) g/dL Hct 24.1 L (36.0-48.0) % Plt Count 132 L (150-450) 10^3/uL OB - PN: A/P Assessment and Plan (1) Acute blood loss anemia: Plan - day: 1 Plan: routine postop care Time Spent with Patient Time: Total time spent is greater than 50% in coordination of care (as documented) at patient's floor/unit and/or counseling patient: Total time spent with greater than 50% in coordination of care (as documented) at patient's floor/unit and/or counseling patient: less than 15 minutes
[2022-11-10] MEDS: FERROUS SULFATE 325 MG TABLET PO ×2 (08:36→21:28)
[2022-11-10] MEDS: DOCUSATE SODIUM 100 MG CAPSULE PO ×2 (08:36→21:28)
[2022-11-10] MEDS: OMEPRAZOLE 20 MG CAPSULE.DR 40 MG PO (08:38)
[2022-11-10] MEDS: CITALOPRAM HYDROBROMIDE 20 MG TABLET 10 MG PO (08:38)
--- NOTE | 2022-11-10 09:37 | W.PC.ACHO ---
Registration Status: ADM IN Primary Language: [place] Preferred Language: [place] report received at 0700. Active Medications Generic Name Dose Route Start Last Admin Trade Name Freq PRN Reason Stop Dose Admin Acetaminophen 1,000 mg 11/09/22 23:20 11/10/22 00:16 Acetaminophen 500 Mg Tablet PO 1,000 mg Q6H PRN Administration Pain Scale 4-6 Al Hydroxide/Mg Hydroxide 2,400 mg 11/08/22 15:54 Magnesium Hydroxide 2,400 Mg/10 Ml Oral.Susp PO Q6H PRN Dyspepsia Carboprost Tromethamine 250 mcg 11/08/22 04:48 11/08/22 19:40 Carboprost Tromethamine 250 Mcg/Ml 1 Ml Vial IM 250 mcg Q15M PRN Administration Bleeding Celecoxib 10 mg 11/09/22 09:00 11/10/22 08:38 Citalopram Hydrobromide 20 Mg Tablet PO 10 mg QD PK Administration Diphenhydramine HCl 25 mg 11/08/22 05:22 Diphenhydramine Hcl 50 Mg/Ml (1ml) Vial IV Q6H PRN Itching Diphenhydramine HCl 12.5 mg 11/08/22 08:46 Diphenhydramine Hcl 50 Mg/Ml (1ml) Vial IV ONCE PRN Itching Docusate Sodium 100 mg 11/09/22 09:00 11/10/22 08:36 Docusate Sodium 100 Mg Capsule PO 100 mg BID PK Administration Ephedrine Sulfate 5 mg 11/08/22 05:22 Ephedrine Sulfate 50 Mg/Ml Vial IV Q5M PRN Blood Pressure - Low Fentanyl Citrate 100 mcg 11/08/22 05:22 11/08/22 08:04 Fentanyl Citrate/Pf 100 Mcg/2 Ml Vial EPIDURAL 100 mcg Q4H PRN Administration Pain Ferrous Sulfate 325 mg 11/10/22 09:00 11/10/22 08:36 Ferrous Sulfate 325 Mg Tablet PO 325 mg BID PK Administration Sodium Chloride 1,000 mls @ 125 mls/hr 11/08/22 05:00 11/09/22 08:45 Sodium Chloride 0.9% 1,000 Ml IV 125 mls/hr .Q8H PK Administration Oxytocin 10 unit/ Sodium 501 mls @ 6.012 mls/hr 11/08/22 05:00 11/08/22 06:11 Chloride IV 2 milliunit/min Q24H PK 6.012 mls/hr Administration 2 MILLIUNIT/MIN Ropivacaine/Sodium Chloride 400 mg in 200 mls @ 6 mls/hr 11/08/22 05:30 11/08/22 08:03 Naropin 0.2% 400 Mg/200 Ml Bag EPIDURAL 6 ml/hr Q24H PK 6 mls/hr Administration Lactated Ringer's 1,000 mls @ 50 mls/hr 11/08/22 15:45 11/08/22 15:39 Lactated Ringers IV 50 mls/hr .Q20H PK Administration Ibuprofen 800 mg 11/08/22 15:54 Ibuprofen 400 Mg Tablet PO Q8H PRN Pain Ketorolac Tromethamine 30 mg 11/08/22 15:54 11/10/22 08:00 Ketorolac Tromethamine 30 Mg/Ml Vial IVP 11/10/22 15:55 30 mg Q6H PRN Administration Pain Lidocaine 5 ml 11/08/22 04:48 Lidocaine Viscous 2% 15 Ml Topical Solution TOPICAL ONCE PRN Pain Lidocaine 1 ml 11/08/22 04:48 Lidocaine Hcl 1% 200 Mg/20 Ml Mdv INJ ONCE PRN Pain Lidocaine 5 ml 11/08/22 05:22 Lidocaine Hcl 2% Pf 100 Mg/5 Ml Vial INJ Q1H PRN Labor Pain Methylergonovine Maleate 0.2 mg 11/08/22 04:48 Methylergonovine Maleate 0.2 Mg Tablet PO Q4H PRN Uterine Contractility/Contract Methylergonovine Maleate 0.2 mg 11/08/22 04:48 Methylergonovine Maleate 0.2 Mg/Ml Ampule IM ONCE PRN Uterine Contractility/Contract Misoprostol 600 mcg 11/08/22 04:48 Misoprostol 100 Mcg Tablet PO ONCE PRN Uterine Bleeding Misoprostol 800 mcg 11/08/22 04:48 Misoprostol 100 Mcg Tablet SL ONCE PRN Uterine Bleeding Misoprostol 1,000 mcg 11/08/22 04:48 Misoprostol 100 Mcg Tablet [place] ONCE PRN Uterine Bleeding Omeprazole 40 mg 11/09/22 09:00 11/10/22 08:38 Omeprazole 20 Mg Capsule.Dr PO 40 mg QD PK Administration Ondansetron HCl 4 mg 11/08/22 04:48 Ondansetron Pf 4 Mg/2 Ml Vial IV Q6H PRN Nausea And Vomiting Ondansetron HCl 4 mg 11/08/22 04:48 Ondansetron 4 Mg Rapdis Tablet SL Q6H PRN Nausea And Vomiting Ondansetron HCl 4 mg 11/08/22 15:54 Ondansetron Pf 4 Mg/2 Ml Vial IV Q6H PRN Nausea And Vomiting Ondansetron HCl 4 mg 11/08/22 15:54 Ondansetron 4 Mg Rapdis Tablet PO Q6H PRN Nausea And Vomiting Oxycodone/Acetaminophen 1 each 11/08/22 15:54 Oxycodone Hcl/Acetaminophen 5-325 Mg Tablet PO Q4H PRN Pain Oxycodone/Acetaminophen 2 each 11/08/22 15:54 Oxycodone Hcl/Acetaminophen 5-325 Mg Tablet PO Q4H PRN Pain Oxytocin 10 unit 11/08/22 04:48 Oxytocin 100 Unit/10 Ml Vial IM ONCE PRN Uterine Bleeding Senna 17.2 mg 11/08/22 20:00 Sennosides 8.6 Mg Tablet PO QHS PRN Constipation Simethicone 80 mg 11/08/22 15:54 11/09/22 20:37 Simethicone 80 Mg Tab.Chew PO 80 mg QID PRN Administration Abdominal Distention Respiratory Lung sounds [Bilateral Upper clear Lobe] Lung sounds [Bilateral Upper clear Lobe] Lung sounds [Bilateral Upper clear Lobe] Pulse Oximetry 98 Pulse Oximetry 98 Pulse Oximetry 98 Pulse Oximetry 100 Pulse Oximetry 100 Pulse Oximetry 100 Oxygen Delivery Method Room Air Oxygen Delivery Method Room Air Oxygen Delivery Method Room Air Oxygen Delivery Method Room Air Oxygen Delivery Method Room Air Oxygen Delivery Method Room Air Bowels Bowel Pattern No Bowel Movement Renal Bladder Pattern Continent Catheter Date Urinary Catheter Removed 11/09/22
[2022-11-10] MEDS: SIMETHICONE 80 MG TAB.CHEW PO (14:19)
[2022-11-10] MEDS: IBUPROFEN 400 MG TABLET 800 MG PO (21:28)
[2022-11-11] MEDS: ACETAMINOPHEN 500 MG TABLET 1000 MG PO ×2 (03:35→09:59)
--- NOTE | 2022-11-11 07:58 | W.PC.ACHO ---
Registration Status: ADM IN Primary Language: [place] Preferred Language: [place] report received from [facility] Active Medications Generic Name Dose Route Start Last Admin Trade Name Freq PRN Reason Stop Dose Admin Acetaminophen 1,000 mg 11/09/22 23:20 11/11/22 03:35 Acetaminophen 500 Mg Tablet PO 1,000 mg Q6H PRN Administration Pain Scale 4-6 Al Hydroxide/Mg Hydroxide 2,400 mg 11/08/22 15:54 Magnesium Hydroxide 2,400 Mg/10 Ml Oral.Susp PO Q6H PRN Dyspepsia Carboprost Tromethamine 250 mcg 11/08/22 04:48 11/08/22 19:40 Carboprost Tromethamine 250 Mcg/Ml 1 Ml Vial IM 250 mcg Q15M PRN Administration Bleeding Celecoxib 10 mg 11/09/22 09:00 11/10/22 08:38 Citalopram Hydrobromide 20 Mg Tablet PO 10 mg QD PK Administration Diphenhydramine HCl 25 mg 11/08/22 05:22 Diphenhydramine Hcl 50 Mg/Ml (1ml) Vial IV Q6H PRN Itching Diphenhydramine HCl 12.5 mg 11/08/22 08:46 Diphenhydramine Hcl 50 Mg/Ml (1ml) Vial IV ONCE PRN Itching Docusate Sodium 100 mg 11/09/22 09:00 11/10/22 21:28 Docusate Sodium 100 Mg Capsule PO 100 mg BID PK Administration Ephedrine Sulfate 5 mg 11/08/22 05:22 Ephedrine Sulfate 50 Mg/Ml Vial IV Q5M PRN Blood Pressure - Low Fentanyl Citrate 100 mcg 11/08/22 05:22 11/08/22 08:04 Fentanyl Citrate/Pf 100 Mcg/2 Ml Vial EPIDURAL 100 mcg Q4H PRN Administration Pain Ferrous Sulfate 325 mg 11/10/22 09:00 11/10/22 21:28 Ferrous Sulfate 325 Mg Tablet PO 325 mg BID PK Administration Sodium Chloride 1,000 mls @ 125 mls/hr 11/08/22 05:00 11/09/22 08:45 Sodium Chloride 0.9% 1,000 Ml IV 125 mls/hr .Q8H PK Administration Oxytocin 10 unit/ Sodium 501 mls @ 6.012 mls/hr 11/08/22 05:00 11/08/22 06:11 Chloride IV 2 milliunit/min Q24H PK 6.012 mls/hr Administration 2 MILLIUNIT/MIN Ropivacaine/Sodium Chloride 400 mg in 200 mls @ 6 mls/hr 11/08/22 05:30 11/08/22 08:03 Naropin 0.2% 400 Mg/200 Ml Bag EPIDURAL 6 ml/hr Q24H PK 6 mls/hr Administration Lactated Ringer's 1,000 mls @ 50 mls/hr 11/08/22 15:45 11/08/22 15:39 Lactated Ringers IV 50 mls/hr .Q20H PK Administration Ibuprofen 800 mg 11/08/22 15:54 11/10/22 21:28 Ibuprofen 400 Mg Tablet PO 800 mg Q8H PRN Administration Pain Lidocaine 5 ml 11/08/22 04:48 Lidocaine Viscous 2% 15 Ml Topical Solution TOPICAL ONCE PRN Pain Lidocaine 1 ml 11/08/22 04:48 Lidocaine Hcl 1% 200 Mg/20 Ml Mdv INJ ONCE PRN Pain Lidocaine 5 ml 11/08/22 05:22 Lidocaine Hcl 2% Pf 100 Mg/5 Ml Vial INJ Q1H PRN Labor Pain Methylergonovine Maleate 0.2 mg 11/08/22 04:48 Methylergonovine Maleate 0.2 Mg Tablet PO Q4H PRN Uterine Contractility/Contract Methylergonovine Maleate 0.2 mg 11/08/22 04:48 Methylergonovine Maleate 0.2 Mg/Ml Ampule IM ONCE PRN Uterine Contractility/Contract Misoprostol 600 mcg 11/08/22 04:48 Misoprostol 100 Mcg Tablet PO ONCE PRN Uterine Bleeding Misoprostol 800 mcg 11/08/22 04:48 Misoprostol 100 Mcg Tablet SL ONCE PRN Uterine Bleeding Misoprostol 1,000 mcg 11/08/22 04:48 Misoprostol 100 Mcg Tablet [place] ONCE PRN Uterine Bleeding Omeprazole 40 mg 11/09/22 09:00 11/10/22 08:38 Omeprazole 20 Mg Capsule.Dr PO 40 mg QD PK Administration Ondansetron HCl 4 mg 11/08/22 04:48 Ondansetron Pf 4 Mg/2 Ml Vial IV Q6H PRN Nausea And Vomiting Ondansetron HCl 4 mg 11/08/22 04:48 Ondansetron 4 Mg Rapdis Tablet SL Q6H PRN Nausea And Vomiting Ondansetron HCl 4 mg 11/08/22 15:54 Ondansetron Pf 4 Mg/2 Ml Vial IV Q6H PRN Nausea And Vomiting Ondansetron HCl 4 mg 11/08/22 15:54 Ondansetron 4 Mg Rapdis Tablet PO Q6H PRN Nausea And Vomiting Oxycodone/Acetaminophen 1 each 11/08/22 15:54 Oxycodone Hcl/Acetaminophen 5-325 Mg Tablet PO Q4H PRN Pain Oxycodone/Acetaminophen 2 each 11/08/22 15:54 Oxycodone Hcl/Acetaminophen 5-325 Mg Tablet PO Q4H PRN Pain Oxytocin 10 unit 11/08/22 04:48 Oxytocin 100 Unit/10 Ml Vial IM ONCE PRN Uterine Bleeding Senna 17.2 mg 11/08/22 20:00 Sennosides 8.6 Mg Tablet PO QHS PRN Constipation Simethicone 80 mg 11/08/22 15:54 11/10/22 14:19 Simethicone 80 Mg Tab.Chew PO 80 mg QID PRN Administration Abdominal Distention Respiratory Lung sounds [Bilateral Upper clear Lobe] Lung sounds [Bilateral Upper clear Lobe] Pulse Oximetry 98 Pulse Oximetry 97 Pulse Oximetry 97 Pulse Oximetry 100 Oxygen Delivery Method Room Air Oxygen Delivery Method Room Air Oxygen Delivery Method Room Air Oxygen Delivery Method Room Air Cardiology Heart Sounds Regular Renal Bladder Pattern Continent
[2022-11-11 08:40] VITALS: BP 134/82; PULSE 56
[2022-11-11] MEDS: DOCUSATE SODIUM 100 MG CAPSULE PO (08:48)
[2022-11-11] MEDS: FERROUS SULFATE 325 MG TABLET PO (08:48)
[2022-11-11 10:02] VITALS: RESP 18; TEMP 36.4
--- NOTE | 2022-11-11 11:19 | PM.OBDS ---
DS: Providers Provider Date of admission: 11/08/22 04:45 Primary care physician: Non-Staff Physician, Attending physician on admission: Alejandra Bergeron Consults: 11/08/22 Consult to Anesthesiology Routine Consulting Provider: Mauricio Akins DS: Diagnosis Discharge Diagnosis (1) Acute blood loss anemia: Assessment and plan: ASSYMPTOMATIC, S/P TWO UNITS OF PRBC'S, TAKING IRON AND PNV (2) delivery delivered: Assessment and plan: NORMAL POST OP COURSE INSTRUCTIONS GIVEN WITH STATED UNDERSTANDING FOR DISCHARGE GIVEN SCRIPTS FOR PERCOCET, IRON AND COLACE CALL FOR PROBLEM OR CONCERN INCISION CHECK IN ONE WEEK AFTER DISCHARGE OB - DS: Summary Hospital Course Hospital Course: UNCOMPLICATED Time spent discussing smoking cessation with patient: more than 10 minutes Peripartum Data - Procedures: Procedures Operation Date: 11/08/22 15:30 Actual Procedure Side Surgeon p Not Applicable Asif Bhatt DO Peripartum Data - Vaginal Delivery Procedures: Procedures Operation Date: 11/08/22 15:30 Actual Procedure Side Surgeon p Not Applicable Asif Bhatt DO Complications complications: none Infant Delivery method: section Gender: male Discharge plan: home Time Spent with Patient Time attestation: Total time spent providing and/or coordinating discharge services: Time spent: greater than 30 minutes Exam Constitutional Vital Signs, click to edit/add: Last Vital Signs Temp 97.6 F 11/11/22 10:02 Pulse 56 L 11/11/22 08:40 Resp 18 11/11/22 10:02 BP 134/82 11/11/22 08:40 Pulse Ox 98 11/10/22 23:36 O2 Del Method Room Air 11/11/22 10:03 Documenting provider has reviewed patient's vital signs: yes Common normals: no apparent distress General appearance: cooperative, comfortable and well kempt Orientation/consciousness: Yes awake, Yes oriented to person, Yes oriented to place and Yes oriented to time HENMT Common normals: normocephalic and head/scalp atraumatic Eye Common normals: PERRL Pupil: accommodation reflex normal Neck & C-Spine Common normals: full ROM Respiratory Common normals: normal respiratory effort Cardio Common normals: regular rate and regular rhythm GI Common normals: Normal to inspection, nondistended, normoactive bowel sounds present Common normals: no CVA tenderness Extremity Common normals: normal to inspection (NORMAL POST CS DEPENDENT EDEMA) and full ROM Neuro Sensorium/orientation: awake, alert, oriented to person, oriented to place and oriented to time Motor exam: strength 5/5 throughout Psych Common normals: mental status grossly normal Discharge Plan Discharge Disposition: Home, Self-Care Assessment: AMBULATING, EATING AND ELIMINATING NORMALLY. NO SYMPTOMS FROM ANEMIA. PUMPING AND BREAST FEEDING. MOOD NORMAL. BONDING WELL WITH CHILD. INVOLVED AND GOOD SUPPORT PERSON. CLINICAL EXAM NON FOCAL. UNDERSTANDS DEPENDENT EDEMA WILL RESORB IN ABOUT THREE WEEKS. NO PROBLEMS OR COMPLAINTS VOICED Health Concerns: WILL CONTINUE PNV AND IRON FOR NEXT MONTH Plan of Treatment: DISCHARGE HOME, INSTRUCTIONS GIVEN, STATED UNDERSTANDING, SCRIPTS TO PATIENT FOR PERCOCET 5 325 # TEN, COLACE # SIXTY AND IRON 325 # SIXTY Discharge Medications: Continued pantoprazole 40 mg tablet,delayed release (DR/EC) 40 mg PO DAILY citalopram [Celexa] 20 mg tablet 10 mg PO DAILY PNV [id number] fumarate-FA [] 28 mg iron- 800 mcg tablet 1 tab PO DAILY Activity: resume usual activities as tolerated Diet: regular diet Patient Instructions: Acute Posthemorrhagic Anemia (DC) Activity Restrictions/Additional Instructions: INSTRUCTED ON ACCEPTABLE ACTIVITY AND EXERCISE NO SWIMMING SIX WEEKS NO BATHTUB 4 WEEKS, MAY SHOWER NO SEX SIX WEEKS ONLY LIFT BABY SPORTS BRA IF DECIDES TO STOP PUMPING AND KEEP ON 28/10 CALL FOR PROBLEM OR CONCERN Forms: Portal Instructions Follow Up Appointments: MAKE AN APPOINTMENT IN ONE WEEK WITH DR. BHATT FOR INCISION CHECK, BABY TO SEE PEDS WITHIN ONE WEEK OF DISCHARGE Discharge location: HOME
[2022-11-11 11:43] VITALS: O2SAT 98
== END 2022-11-11 12:30 | disposition home or self-care (01) | DRG 787 ==
PROVIDERS: Admitting Provider Obstetrics & Gynecology; Visit Provider Obstetrics & Gynecology
PROC: 10D00Z1 Extraction of Products of Conception, Low, Open Approach (ICD-10-PCS; CPT 59514; principal; 2022-11-08 15:30)
DX: O36.63X0 Maternal care for excessive fetal growth, third trimester, not applicable or unspecified (principal); D62 Acute posthemorrhagic anemia; O99.892 Other specified diseases and conditions complicating childbirth; O90.81 Anemia of the puerperium; O76 Abnormality in fetal heart rate and rhythm complicating labor and delivery; O99.62 Diseases of the digestive system complicating childbirth; Z3A.39 39 weeks gestation of pregnancy; Z37.0 Single live birth; M41.9 Scoliosis, unspecified; K21.9 Gastro-esophageal reflux disease without esophagitis; O99.344 Other mental disorders complicating childbirth; F43.21 Adjustment disorder with depressed mood; F41.9 Anxiety disorder, unspecified; Z79.899 Other long term (current) drug therapy; Z98.890 Other specified postprocedural states; Z88.0 Allergy status to penicillin; Z88.8 Allergy status to other drugs, medicaments and biological substances; Z81.8 Family history of other mental and behavioral disorders; Z80.8 Family history of malignant neoplasm of other organs or systems
CPT/HCPCS: 36415; 36430; 59050; 80307; 85025; 85027; 86850; 86900; 86901; 86920; 88307; 94667; 94668; 94761; 96374; 96375; 96376; P9016

== ENCOUNTER 2022-11-14 09:15 | Outpatient (RCR) | payer BC, OTHER, SELFPAY ==
[2022-11-14 17:08] VITALS: BP 129/88; PULSE 91; RESP 16; TEMP 37.1; O2SAT 96
--- NOTE | 2022-11-14 17:14 | PC.NURSE ---
Mom doing well, has been feeding with nipple shield today worked on latching without shield and does well. Aware of need for deep latch and how to assist baby to achieve. Does well with minimal assistance, verbal instructions mostly. Father of baby attentive and engaged.
--- NOTE | 2022-11-14 17:18 | PC.NURSE ---
Incision open to air, steristrips intact. Small blister to right of incision edge intact yet tender. Incision line clean, no redness or edema noted, no drainage noted. No concerns voiced by mom or partner at this time. States fels confident in care for self and .
== END 2022-11-14 11:30 | disposition home or self-care (01) ==
LOC: FBCO 09:15
PROVIDERS: Visit Provider Obstetrics & Gynecology
DX: Z39.2 Encounter for routine postpartum follow-up (principal)

== ENCOUNTER 2022-11-18 09:57 | Outpatient (OUT) | payer BC, OTHER, SELFPAY ==
[2022-11-18 10:16] LABS: Basophils Absolute Auto 0.1 10^3/uL (0.0-0.1); Basophils Percent Auto 0.4 % (0.2-2.0); Eosinophils Absolute Auto 0.1 10^3/uL (0.0-0.7); Hematocrit 32.5 % (36.0-48.0); Hemoglobin 10.4 g/dL (12.0-16.0); Immature Granulocytes Abs Auto 0.07 10^3/uL (0.00-0.03); Immature Granulocytes Pct Auto 0.6 % (0.0-0.5); Lymphocytes Absolute Auto 1.6 10^3/uL (1.2-3.8); Lymphocytes Percent Auto 14.3 % (20.5-60.0); Mean Corpuscular Hemoglobin 27.1 pg (26.7-34.0); Mean Corpuscular Volume 84.6 fL (81.0-99.0); Mean Platelet Volume 8.9 fL (9.5-13.5); Monocytes Absolute Auto 0.7 10^3/uL (0.3-0.8); Monocytes Percent Auto 6.1 % (1.7-12.0); Neutrophils Absolute Auto 8.9 10^3/uL (1.4-6.5); Neutrophils Percent Auto 77.6 % (43.0-75.0); Platelet Count 269 10^3/uL (150-450); Red Blood Count 3.84 10^6/uL (4.20-5.40); Red Cell Distribution Width 15.7 % (11.0-15.0); White Blood Count 11.5 10^3/uL (4.0-11.0)
== END 2022-11-18 09:58 | disposition home or self-care (01) ==
LOC: LAB 09:59
PROVIDERS: Visit Provider Physician Assistant
DX: R39.9 Unspecified symptoms and signs involving the genitourinary system (principal); Z98.890 Other specified postprocedural states
CPT/HCPCS: 36415; 85025

== ENCOUNTER 2022-11-18 20:09 | Outpatient (REF) | payer BC, OTHER, SELFPAY | END 2022-11-18 20:10 | disposition home or self-care (01) | LOC: LAB 20:09 | PROVIDERS: Visit Provider Physician Assistant | DX: R39.9 Unspecified symptoms and signs involving the genitourinary system (principal); Z98.890 Other specified postprocedural states | CPT/HCPCS: 36415; 85025; 87086; 87150; 87186 ==

== ENCOUNTER 2022-11-19 09:10 | Outpatient (RCR) | payer BC, OTHER, SELFPAY | END 2022-11-19 13:35 | disposition home or self-care (01) | LOC: FBCO 09:10 | PROVIDERS: Visit Provider Obstetrics & Gynecology | DX: Z39.1 Encounter for care and examination of lactating mother (principal) | CPT/HCPCS: G0463 ==

== ENCOUNTER 2022-12-04 08:20 | Outpatient (RCR) | payer BC, OTHER, SELFPAY | END 2022-12-04 11:15 | disposition home or self-care (01) | LOC: FBCO 08:20 | PROVIDERS: Visit Provider Obstetrics & Gynecology | DX: Z39.1 Encounter for care and examination of lactating mother (principal) | CPT/HCPCS: G0463 ==

== ENCOUNTER 2023-03-05 19:25 | Outpatient (REF) | payer BC, OTHER, SELFPAY ==
[2023-03-10 12:14] LABS: Age Gdln ACOG Testing Note (.); IGP, rfx Aptima HPV ASCU Note (.)
== END 2023-03-05 19:26 | disposition home or self-care (01) ==
LOC: LAB 19:25
PROVIDERS: Visit Provider Obstetrics & Gynecology
DX: Z01.419 Encounter for gynecological examination (general) (routine) without abnormal findings (principal)
CPT/HCPCS: G0145

== ENCOUNTER 2023-08-09 07:17 | Outpatient (OUT) | payer BC, SELFPAY ==
--- OUTSIDE RECORDS SUMMARY | 2023-08-09 07:22 | XMS_ITS | CCD ---
Author Organization [facility] Care Team Providers Care Child Welfare Counselor Name Role Phone Ben Rose Unavailable Mikael PHOTOGRAPH MOUNTER-C, Angeles A Admitting Unavailable Mikael PHOTOGRAPH MOUNTER-C, Angeles A Attending Unavailable Mikael PHOTOGRAPH MOUNTER-C, Angeles A Primary Care Unavailable Mikael PHOTOGRAPH MOUNTER-C, Angeles A Attending Unavailable Mikael PHOTOGRAPH MOUNTER-C, Angeles A Primary Care Unavailable ROCCO ., DR MORGAN Consulting Unavailable ROCCO ., DR MORGAN Attending Unavailable ROCCO ., DR MORGAN Admitting Unavailable REQUEST, DR NONE LISTED Primary Care Unavaila ble MIKAEL, ANGELES Attending Unavailable MIKAEL, ANGELES Primary Care Unavailable MIKAEL, ANGELES Admitting Unavailable ROCCO ., DR MORGAN Consulting Unavailable ROCCO ., DR MORGAN Attending Unavailable ROCCO ., DR MORGAN Admitting Unavailable REQUEST, DR NONE LISTED Primary Care Unavaila ble ZIEBER, DR ABRIL Jennings Consulting Unavailable MIKAEL, ANGELES Primary Care Unavailable ROCCO ., DR MORGAN Attending Unavailable ROCCO ., DR MORGAN Consulting Unavailable ROCCO ., DR MORGAN Admitting Unavailable ROCCO ., DR MORGNA Attending Unavailable ROCCO ., DR MORGAN Admitting Unavailable REQUEST, DR NONE LISTED Primary Care Unavaila ble TIN ., NNAMDI Consulting Unavailable TIN ., NNAMDI Attending Unavailable TIN ., NNAMDI Admitting Unavailable MIKAEL, ANGELES Primary Care Unavailable ROCCO ., DR MORGAN Consulting Unavailable ROCCO ., DR MORGAN Attending Unavailable ROCCO ., DR MORGAN Admitting Unavailable REQUEST, DR NONE LISTED Primary Care Unavaila ble MIKAEL, ANGELES Primary Care Unavailable ROCCO ., DR MORGAN Attending Unavailable ROCCO ., DR MORGAN Admitting Unavailable ROCCO ., DR MORGAN Consulting Unavailable ROCCO ., DR MORGAN Attending Unavailable ROCCO ., DR MORGAN Consulting Unavailable REQUEST, DR NONE LISTED Primary Care Unavaila ble ROCCO ., DR MORGAN Admitting Unavailable SHERRON ., NORA Consulting Unavailable SHERRON ., NORA Attending Unavailable SHERRON ., NORA Admitting Unavailable MIKAEL, ANGELES Primary Care Unavailable MIKAEL, ANGELES Primary Care Unavailable ROCCO ., DR MORGAN Attending Unavailable [place], DR EDITH Corey Consulting Unavailable ROCCO ., DR MORGAN Admitting Unavailable ROCCO ., DR MORGAN Consulting Unavailable ROCCO ., DR MORGAN Consulting Unavailable ROCCO ., DR MORGAN Admitting Unavailable REQUEST, DR NONE LISTED Primary Care Unavaila ble ROCCO ., DR MORGAN Attending Unavailable MIKAEL, ANGELES Primary Care Unavailable ROCCO ., DR MORGAN Attending Unavailable [place], DR EDITH Corey Consulting Unavailable ROCCO ., DR MORGAN Admitting Unavailable ROCCO ., DR MORGAN Consulting Unavailable MIKAEL, ANGELES Primary Care Unavailable ROCCO ., DR MORGAN Attending Unavailable ROCCO ., DR MORGAN Consulting Unavailable ROCCO ., DR MORGAN Admitting Unavailable ROCCO ., DR MORGAN Consulting Unavailable ROCCO ., DR MORGAN Attending Unavailable ROCCO ., DR MORGAN Admitting Unavailable REQUEST, DR NONE LISTED Primary Care Unavaila ble ROCCO ., DR MORGAN Consulting Unavailable ROCCO ., DR MORGAN Attending Unavailable ROCCO ., DR MORGAN Admitting Unavailable REQUEST, DR NONE LISTED Primary Care Unavaila ble ROCCO, EDDIE Attending Unavailable GENTRY KIM Attending Unavailable Allergies Allergy Classification Reported Allergen(s) Allergy Type Date of Onset Reaction(s) Facility (3 sources) Penicillin G Drug Allergy Unknown [employer] Other (1 source) busPIRone; Translations: [buspirone hcl] Drug Allergy [facility] Repository (1 source) Coconut extract; Translations: [coconut] Drug Allergy [facility] Repository (1 source) Penicillins; Translations: [penicillins] Propensity to adverse reactions to drug (disorder) [facility] Repository (1 source) Amoxicillin Drug Allergy [facility] Repository (1 source) Penicillin Drug Allergy [facility] Repository Medications Current Medications Medication Drug Class(es) Dates Sig (Normalized) Sig (Original) Cetirizine (2 sources) Histamine-1 Receptor Antagonist ZyrTEC Allergy Active hyoscyamine sulfate 0.125 mg sublingual tablet (2 sources) Start: 12-04-2021 take 1 tablet under the tongue four times daily as needed Hyoscyamine Sulfate 0.125 MG 1 tablet under the tongue and allow to dissolve as needed Sublingual FOUR TIMES DAILY NEEDED for 30 days PRN Nov, Active loratadine 10 mg oral tablet (1 source) take 1 tablet by mouth every twenty-four hours Claritin 10 MG 1 tablet Orally Once a day Active pantoprazole 40 mg delayed release oral tablet (3 sources) Proton Pump Inhibitor Start: 02-28-2021 take 1 tablet by mouth every twenty-four hours Pantoprazole Sodium 40 MG 1 tablet Orally Once a day for 30 days Feb, Active Probiotic (3 sources) Probiotic EVERY OTHER MONTH Active Problems Active Problems Problem Classification Problem Date Documented Da te Episodic/Chronic Abdominal pain (3 sources) Epigastric pain; Translations: [Lower abdominal pain, unspecified] Episodic Conditions associated with dizziness or vertigo (5 sources) Dizziness and giddiness; Translations: [DIZZINESS AND GIDDINESS] Onset: 3 Episodic Esophageal disorders (5 sources) Gastroesophageal reflux disease; Translations: [Gastro-esophageal reflux disease without esophagitis] Chronic Gastritis and duodenitis (3 sources) Gastritis; Translations: [Gastritis, unspecified, without bleeding] Episodic Headache; including migraine (3 sources) Tension-type headache; Translations: [Tension-type headache, unspecified, not intractable] Chronic Hemorrhage during ; abruptio placenta; placenta previa (1 source) Low lying placenta NOS or without hemorrhage, second trimester; Translations: [LOW LYING PL NOS W/O HEMORR 2ND TRI] Onset: 3 Episodic Immunizations and screening for infectious disease (2 sources) Encounter for screening for infections with a predominantly sexual mode of transmission; Translations: [Encounter for screening for human papillomavirus (HPV)] Onset: 2 Episodic Menstrual disorders (10 sources) Irregular menstruation, unspecified; Translations: [Dysmenorrhea, unspecified] Onset: 2 Chronic Nausea and vomiting (1 source) Nausea Episodic Other acquired deformities (4 sources) Scoliosis, unspecified; Translations: [SCOLIOSIS UNSPECIFIED] Onset: 2 Chronic Other complications of (1 source) Other specified related conditions, second trimester; Translations: [OTH SPEC PREG RELATED COND 2ND TRI] Onset: 3 Episodic Other disorders of stomach and duodenum (3 sources) Nonulcer dyspepsia; Translations: [Functional dyspepsia] Episodic Other disorders of stomach and duodenum (1 source) Functional dyspepsia Episodic Other female genital disorders (4 sources) Other specified noninflammatory disorders of vagina; Translations: [OTH SPEC NONINFLAMMATORY D/O VAGINA] Onset: 3 Episodic Other gastrointestinal disorders (1 source) Abdominal distension (gaseous) Episodic Other gastrointestinal disorders (1 source) Constipation; Translations: [Constipation, unspecified] Episodic Other gastrointestinal disorders (1 source) Constipation, unspecified Episodic Other and delivery including normal (9 sources) Encounter for supervision of normal , unspecified, unspecified trimester; Translations: [Encounter for supervision of normal first , first trimester] Onset: 3 Episodic Other screening for suspected conditions (not mental disorders or infectious disease) (12 sources) Encounter for screening for diabetes mellitus; Translations: [Encounter for screening, unspecified] Onset: 2 Episodic Residual codes; unclassified (1 source) 21 weeks gestation of ; Translations: [21 WEEKS GESTATION OF ] Onset: 3 Episodic Residual codes; unclassified (1 source) 16 weeks gestation of ; Translations: [16 WEEKS GESTATION OF ] Onset: 3 Episodic Syncope (1 source) Syncope and collapse; Translations: [SYNCOPE AND COLLAPSE] Onset: 3 Episodic Unclassified (1 source) LOW BACK PAIN, UNSPECIFIED; Translations: [LOW BACK PAIN, UNSPECIFIED] Onset: 2 Past or Other Problems Problem Classification Problem Date Documented Da te Episodic/Chronic Other connective tissue disease (1 source) Pain in right leg; Translations: [PAIN IN RIGHT LEG] Onset: 11-12-2021 Episodic Other connective tissue disease (1 source) Abnormal posture; Translations: [ABNORMAL POSTURE] Onset: 11-15-2021 Episodic Ovarian cyst (1 source) Other ovarian cyst, right side; Translations: [OTHER OVARIAN CYST RIGHT SIDE] Onset: 02-18-2022 Episodic Residual codes; unclassified (1 source) 9 weeks gestation of ; Translations: [9 WEEKS GESTATION OF ] Onset: 04-11-2022 Episodic Results Test Name Value Interpretation Reference Range Facility CBC AUTO DIFFon 07-25-2022 BASO # 0.0 103/ul Normal 0.0-0.1 [facility] Comment on above: Performed By: #### C BC #### [facility] [address] [address] [address] Jerry Samuel Basophils/100 WBC (Bld) 0.3 % Normal 0.2-2.0 [facility] Comment on above: Performed By: #### C BC #### [facility] [address] [address] [address] Jerry Samuel EO # 0.1 103/ul Normal 0.0-0.7 [facility] Comment on above: Performed By: #### C BC #### [facility] [address] [place] [address] Dr. Jerry Samuel Eosinophils/100 WBC (Bld) 1.4 % Normal 0.9-7.0 [facility] Comment on above: Performed By: #### C BC #### [facility] [address] [address] [address] Jerry Samuel Erythrocyte distribution width (RBC) [Ratio] 13.2 % Normal 11.0-15.0 [facility] Comment on above: Performed By: #### C BC #### [facility] [address] [place] [address] Dr. Jerry Samuel Hematocrit (Bld) [Volume fraction] 33.9 % Critically low 36.0-48.0 [facility] Comment on above: Performed By: #### C BC #### [facility] [address] [place] [address] Dr. Jerry Samuel Hemoglobin (Bld) [Mass/Vol] 11.3 g/dL Critically low 12.0-16.0 [facility] Comment on above: Performed By: #### C BC #### [facility] [address] [place] [address] Dr. Jerry Samuel IG # 0.04 10e3/ul Critically high 0.00-0.03 [facility] Comment on above: Performed By: #### C BC #### [facility] [address] [place] [address] Dr. Jerry Samuel IG % 0.6 % Critically high 0.0-0.5 [facility] Comment on above: Performed By: #### C BC #### [facility] [address] [place] [address] Dr. Jerry Samuel LYMPH # 1.9 103/ul Normal 1.2-3.8 [facility] Comment on above: Performed By: #### C BC #### [facility] [address] [place] [address] Dr. Jerry Samuel Lymphocytes/100 WBC (Bld) 30.2 % Normal 20.5-60.0 [facility] Comment on above: Performed By: #### C BC #### [facility] [address] [place] [address] Dr. Jerry Samuel MANUAL DIFF REQ NO Normal [facility] Comment on above: Performed By: #### C BC #### [facility] [address] [place] [address] Dr. Jerry Samuel MCH (RBC) [Entitic mass] 29.9 pg Normal 26.7-34.0 [facility] Comment on above: Performed By: #### C BC #### [facility] [address] [place] [address] Dr. Jerry Samuel MCHC (RBC) [Mass/Vol] 33.3 g/dL Normal 29.9-35.2 [facility] Comment on above: Performed By: #### C BC #### [facility] [address] [place] [address] Dr. Jerry aSmuel MCV (RBC) [Entitic vol] 89.7 fL Normal 81.0-99.0 [facility] Comment on above: Performed By: #### C BC #### [facility] [address] [place] [address] Dr. Jerry Samuel MONO # 0.5 103/ul Normal 0.3-0.8 [facility] Comment on above: Performed By: #### C BC #### [facility] [address] [place] [address] Dr. Jerry Samuel Monocytes/100 WBC (Bld) 7.2 % Normal 1.7-12.0 [facility] Comment on above: Performed By: #### C BC #### [facility] [address] [place] [address] Dr. Jerry Samuel NEUT # 3.8 103/ul Normal 1.4-6.5 [facility] Comment on above: Performed By: #### C BC #### [facility] [address] [place] [address] Dr. Jerry Samuel Neutrophils/100 WBC (Bld) 60.3 % Normal 43.0-75.0 [facility] Comment on above: Performed By: #### C BC #### [facility] [address] [place] [address] Dr. Jerry Samuel Platelet mean volume (Bld) [Entitic vol] 9.8 fL Normal 9.5-13.5 [facility] Comment on above: Performed By: #### C BC #### [facility] [address] [place] [address] Dr. Jerry Samuel PLT 188 103/ul Normal 150-450 [facility] Comment on above: Performed By: #### C BC #### [facility] [address] [place] [address] Dr. Jerry Samuel RBC 3.78 106/ul Critically low 4.20-5.40 [facility] Comment on above: Performed By: #### C BC #### [facility] [address] [place] [address] Dr. Jerry Samuel WBC 6.2 103/ul Normal 4.0-11.0 [facility] Comment on above: Performed By: #### C BC #### [facility] [address] [place] [address] Dr. Jerry Samuel GLUCOSE - 1HRon 07-25-2022 Glucose [Mass/Vol] 100 mg/dL Normal 74-106 [facility] Comment on above: Performed By: #### N BOX #### [facility] [address] [address] [address] Jerry Samuel US PREG ANATOMY SINGLEon US PREG ANATOMY SINGLE EXAMINATION: US PREG ANATOMY SINGLE HISTORY: anatomy study COMPARISON: No relevant comparison available. TECHNIQUE: Transabdominal sonographic examination was performed for obstetrical and evaluation. FINDINGS: Number: 1 Heart Rate: 150.0 bpm H.B. /min Amniotic Fluid Volume: Subjectively normal Placental Location: Posterior with lower margin 2.9 cm from internal os. Cervix Length: 4.9 cm, closed. ANATOMY: Normal Structures -cerebellum, choroid plexus, cisterna magna, lateral cerebral ventricles, orbits, midline falx, hard palate, four-chamber heart, RVOT, LVOT, stomach, kidneys, bladder, umbilical cord insertion into abdomen, three-vessel cord, cervical spine, thoracic spine, lumbar spine, sacral spine, right upper extremity, left upper extremity, right lower extremity, left lower extremity. SUBOPTIMALLY SEEN: None ABNORMALITIES: None BIOMETRY: BPD: 5.1 cm 21 weeks 2 days HC: 20.4 cm 22 weeks 3 days AC: 17.7 cm 22 weeks 4 days FL: 3.8 cm 22 weeks 2 days EFW:502.1 grams; ; 90% FL/AC: 21.7 FL/BPD: 76.0 HC/AC: 1.2 GESTATIONAL AGE: Age by EDC: 21 weeks 3 days ROLANDO by EDC: 11/09/2022 Age by current US: 22 weeks 1 days ROLANDO by current US: 11/04/2022 IMPRESSION: 1. Single live intrauterine with growth detailed above. 2. Low-lying posterior placenta. Electronically authenticated by: ABRIL SCANLON Date: 2022-07-02 13:45 Normal [facility] AFP MATERNAL FOR SPINA BIFID Aon 06-14-2022 AFP MoM 0.87 Normal [facility] Comment on above: Performed By: #### R PRQ #### [facility] [address] [address] [address] Jeryr Samuel AFP Value 39.6 ng/mL Normal [facility] Comment on above: Performed By: #### R PRQ #### [facility] [address] [address] [address] Jerry Samuel AFP, Serum for Spina Bifida Report Normal [facility] Comment on above: Performed By: #### R PRQ #### [facility] [address] [address] [address] Jerry Samuel Comment Comment Normal [facility] Comment on above: Result Comment: Irina Petersen, Ph.D., [facility] Director . References: Available Upon Request. . Multiples Of Median Cutoffs For AFP Elevations Patrick 2.5 Black 2.8 IDD 2.0 Twins 4.5 Abbreviation Definitions IDD - Insulin Dep Diabetes OSBR - Open Spina Bifida Risk . For further inquiries contact [facility] at [phone]. . This test was developed and its performance characteristics determined by [facility]. It has not been cleared or approved by the Food and Drug Administration. Performed By: #### R PRQ #### [facility] [address] [address] [address] Jerry Samuel Gest Age Collection Date 18.9 weeks Normal [facility] Comment on above: Performed By: #### R PRQ #### [facility] [address] [address] [address] Jerry Samuel Gestat, Age Based on Ultrasound Normal [facility] Comment on above: Result Comment: 09.0 on 04/04/2022 Recalculations are not recommended when gestational dating by LMP and ultrasound are within 10 days. Performed By: #### R PRQ #### [facility] [address] [place] [address] Dr. Jerry Samuel Insulin Dep Diabetes No Normal [facility] Comment on above: Performed By: #### R PRQ #### [facility] [address] [place] [address] Dr. Jerry Samuel Interpretation Comment Normal [facility] Comment on above: Result Comment: Inte rpretation: Screen Negative . This result is screen negative for OSB. The AFP MoM calculated is based on the gestational age provided. MS-AFP can identify up to 80% of open neural tube defects. Closed neural tube defects and some open defects may not be detected by this test. This test does not screen for Down Syndrome or Trisomy 18. If screening for Down Syndrome or Trisomy 18 is desired, contact [employer] [facility] to discuss available options. The [employer] recommends amniocentesis be offered to women age 35 and older. Performed By: #### R PRQ #### [facility] [address] [place] [address] Dr. Jerry Samuel [age] Normal [facility] Comment on above: Performed By: #### R PRQ #### [facility] [address] [place] [address] Dr. Jerry Samuel Multiple Gestation No Normal [facility] Comment on above: Performed By: #### R PRQ #### [facility] [address] [place] [address] Dr. Jerry Samuel OS[place] [address] Normal [facility] Comment on above: Performed By: #### R PRQ #### [facility] [address] [place] [address] Dr. Jerry Samuel PDF . Normal [facility] Comment on above: Performed By: #### R PRQ #### [facility] [address] [place] [address] Dr. Jerry Samuel Race Normal [facility] Comment on above: Performed By: #### R PRQ #### [facility] [address] [place] [address] Dr. Jerry Samuel Test Results: Negative Normal [facility] Comment on above: Performed By: #### R PRQ #### [facility] [address] [place] [address] Dr. Jerry Samuel CHLAMYDIA/GONOCOCCUS ELINOR (SW AB/URINE/PAPon 06-07-2022 Chlamydia trachomatis, ELINOR Negative Normal Negative [facility] Comment on above: Performed By: #### R PRQ #### [facility] [address] [place] [address] Dr. Jerry Samuel Neisseria gonorrhoeae, ELINOR Negative Normal Negative [facility] Comment on above: Performed By: #### R PRQ #### [facility] [address] [place] [address] Dr. Jerry Samuel VAGINITIS/VAGINOSIS DNA PROB Nayan 06-06-2022 Margaret species Negative Normal Negative [facility] Comment on above: Performed By: #### V AGINT #### [facility] [address] [place] [address] Dr. Jerry Samuel Gardnerella vaginalis Negative Normal Negative [facility] Comment on above: Performed By: #### V AGINT #### [facility] [address] [place] [address] Dr. Jerry Samuel Trichomonas vaginalis Negative Normal Negative [facility] Comment on above: Performed By: #### V AGINT #### [facility] [address] [place] [address] Dr. Jerry Samuel CBC AUTO DIFFon 05-26-2022 BASO # 0.0 103/ul Normal 0.0-0.1 [facility] Comment on above: Performed By: #### C BC #### [facility] [address] [place] [address] Dr. Jerry Samuel Basophils/100 WBC (Bld) 0.1 % Critically low 0.2-2.0 [facility] Comment on above: Performed By: #### C BC #### [facility] [address] [place] [address] Dr. Jerry Samuel EO # 0.0 103/ul Normal 0.0-0.7 [facility] Comment on above: Performed By: #### C BC #### [facility] [address] [place] [address] Dr. Jerry Samuel Eosinophils/100 WBC (Bld) 0.4 % Critically low 0.9-7.0 [facility] Comment on above: Performed By: #### C BC #### [facility] [address] [place] [address] Dr. Jerry Samuel Erythrocyte distribution width (RBC) [Ratio] 12.6 % Normal 11.0-15.0 [facility] Comment on above: Performed By: #### C BC #### [facility] [address] [place] [address] Dr. Jerry Samuel Hematocrit (Bld) [Volume fraction] 34.0 % Critically low 36.0-48.0 [facility] Comment on above: Performed By: #### C BC #### [facility] [address] [address] [address] Jerry Samuel Hemoglobin (Bld) [Mass/Vol] 11.6 g/dL Critically low 12.0-16.0 [facility] Comment on above: Performed By: #### C BC #### [facility] [address] [address] [address] Jerry Samuel IG # 0.03 10e3/ul Normal 0.00-0.03 [facility] Comment on above: Performed By: #### C BC #### [facility] [address] [place] [address] Dr. Jerry Samuel IG % 0.4 % Normal 0.0-0.5 [facility] Comment on above: Performed By: #### C BC #### [facility] [address] [place] [address] Dr. Jerry Samuel LYMPH # 1.1 103/ul Critically low 1.2-3.8 [facility] Comment on above: Performed By: #### C BC #### [facility] [address] [place] [address] Dr. Jerry Samuel Lymphocytes/100 WBC (Bld) 16.5 % Critically low 20.5-60.0 [facility] Comment on above: Performed By: #### C BC #### [facility] [address] [place] [address] Dr. Jerry Samuel MANUAL DIFF REQ NO Normal [facility] Comment on above: Performed By: #### C BC #### [facility] [address] [place] [address] Dr. Jerry Samuel MCH (RBC) [Entitic mass] 29.1 pg Normal 26.7-34.0 [facility] Comment on above: Performed By: #### C BC #### [facility] [address] [place] [address] Dr. Jerry Samuel MCHC (RBC) [Mass/Vol] 34.1 g/dL Normal 29.9-35.2 [facility] Comment on above: Performed By: #### C BC #### [facility] [address] [address] [address] Jerry Samuel MCV (RBC) [Entitic vol] 85.2 fL Normal 81.0-99.0 [facility] Comment on above: Performed By: #### C BC #### [facility] [address] [address] [address] Jerry Samuel MONO # 0.4 103/ul Normal 0.3-0.8 [facility] Comment on above: Performed By: #### C BC #### [facility] [address] [address] [address] Jerry Samuel Monocytes/100 WBC (Bld) 6.0 % Normal 1.7-12.0 [facility] Comment on above: Performed By: #### C BC #### [facility] [address] [address] [address] Jerry Samuel NEUT # 5.1 103/ul Normal 1.4-6.5 [facility] Comment on above: Performed By: #### C BC #### [facility] [address] [address] [address] Jerry Samuel Neutrophils/100 WBC (Bld) 76.6 % Critically high 43.0-75.0 [facility] Comment on above: Performed By: #### C BC #### [facility] [address] [address] [address] Jerry Samuel Platelet mean volume (Bld) [Entitic vol] 10.5 fL Normal 9.5-13.5 [facility] Comment on above: Performed By: #### C BC #### [facility] [address] [address] [address] Jerry Samuel PLT 207 103/ul Normal 150-450 [facility] Comment on above: Performed By: #### C BC #### [facility] [address] [address] [address] Jerry Samuel RBC 3.99 106/ul Critically low 4.20-5.40 [facility] Comment on above: Performed By: #### C BC #### [facility] [address] [address] [address] Jerry Samuel WBC 6.7 103/ul Normal 4.0-11.0 [facility] Comment on above: Performed By: #### C BC #### [facility] [address] [place] [address] Dr. Jerry Samuel ER URINE PROFILEon 3 Bilirubin Ql (U) Negative Normal NEGATIVE [facility] Comment on above: Performed By: #### E RUR #### [facility] [address] [place] [address] Dr. Jerry Samuel Clarity (U) CLEAR Normal CLEAR [facility] Comment on above: Performed By: #### E RUR #### [facility] [address] [place] [address] Dr. Jerry Samuel Color (U) LT. YELLOW Normal YELLOW [facility] Comment on above: Performed By: #### E RUR #### [facility] [address] [place] [address] Dr. Jerry Samuel ERUAHD A micrscopic examina tion will be performed if indicated. Normal [facility] Comment on above: Performed By: #### E RUR #### [facility] [address] [place] [address] Dr. Jerry Samuel Glucose Ql (U) Negative Normal NEGATIVE [facility] Comment on above: Performed By: #### E RUR #### [facility] [address] [place] [address] Dr. Jerry Samuel Hemoglobin Ql (U) Negative Normal NEGATIVE [facility] Comment on above: Performed By: #### E RUR #### [facility] [address] [place] [address] Dr. Jerry Samuel Ketones Ql (U) Negative Normal NEGATIVE [facility] Comment on above: Performed By: #### E RUR #### [facility] [address] [place] [address] Dr. Jerry Samuel LEUKOCYTES Negative Normal NEGATIVE [facility] Comment on above: Performed By: #### E RUR #### [facility] [address] [place] [address] Dr. Jerry Samuel Nitrite Ql (U) Negative Normal NEGATIVE [facility] Comment on above: Performed By: #### E RUR #### [facility] [address] [place] [address] Dr. Jerry Samuel pH (U) 6.5 [pH] Normal 5-9 [facility] Comment on above: Performed By: #### E RUR #### [facility] [address] [place] [address] Dr. Jerry Samuel SPEC GRAVITY <=1.005 Abnormal 1.005-<=1.025 [facility] Comment on above: Performed By: #### E RUR #### [facility] [address] [place] [address] Dr. Jerry Samuel UA PROTEIN Negative Normal NEGATIVE/ TRACE [facility] Comment on above: Performed By: #### E RUR #### [facility] [address] [place] [address] Dr. Jerry Samuel UR MICRO IND NOT INDICATED Normal [facility] Comment on above: Performed By: #### E RUR #### [facility] [address] [place] [address] Dr. Jerry Samuel Urobilinogen Qn (U) 0.2 {Charlette'U}/dL Normal 0.2 - 1. 0 [facility] Comment on above: Performed By: #### E RUR #### [facility] [address] [place] [address] Dr. Jerry Samuel PROF 14(COMP METB)on 023 Albumin [Mass/Vol] 3.4 g/dL Normal 3.4-5.0 [facility] Comment on above: Performed By: #### R PRQ #### [facility] [address] [place] [address] Dr. Jerry Samuel Albumin/Globulin [Mass ratio] 1.0 {ratio} Normal [facility] Comment on above: Performed By: #### R PRQ #### [facility] [address] [place] [address] Dr. Jerry Samuel ALP [Catalytic activity/Vol] 33 U/L Critically low 46-116 [facility] Comment on above: Performed By: #### R PRQ #### [facility] [address] [place] [address] Dr. Jerry Samuel ALT [Catalytic activity/Vol] 16 U/L Normal 14-59 [facility] Comment on above: Performed By: #### R PRQ #### [facility] [address] [address] [address] Jerry Samuel Anion gap [Moles/Vol] 8.5 mmol/L Normal [facility] Comment on above: Performed By: #### R PRQ #### [facility] [address] [place] [address] Dr. Jerry Samuel AST [Catalytic activity/Vol] 12 U/L Critically low 15-37 [facility] Comment on above: Performed By: #### R PRQ #### [facility] [address] [place] [address] Dr. Jerry Samuel Bilirubin [Mass/Vol] 0.3 mg/dL Normal 0.2-1.0 [facility] Comment on above: Performed By: #### R PRQ #### [facility] [address] [place] [address] Dr. Jerry Samuel Calcium [Mass/Vol] 9.2 mg/dL Normal 8.5-10.1 [facility] Comment on above: Performed By: #### R PRQ #### [facility] [address] [address] [address] Jerry Samuel Chloride [Moles/Vol] 105 mmol/L Normal 98-107 [facility] Comment on above: Performed By: #### R PRQ #### [facility] [address] [address] [address] Jerry Samuel CO2 [Moles/Vol] 25.0 mmol/L Normal 21.0-32.0 [facility] Comment on above: Performed By: #### R PRQ #### [facility] [address] [place] [address] Dr. Jerry Samuel Creatinine [Mass/Vol] 0.40 mg/dL Critically low 0.55-1.02 [facility] Comment on above: Performed By: #### R PRQ #### [facility] [address] [address] [address] Jerry Samuel EGFR-AF [place]AST [place] >60 Normal >=60 [facility] Comment on above: Performed By: #### R PRQ #### [facility] [address] [address] [address] Jerry Samuel EGFR-NON AF [place] >60 Normal >=60 [facility] Comment on above: Performed By: #### R PRQ #### [facility] [address] [address] [address] Jerry Samuel Globulin (S) [Mass/Vol] 3.5 g/dL Normal [facility] Comment on above: Performed By: #### R PRQ #### [facility] [address] [address] [address] Jerry Samuel Glucose [Mass/Vol] 94 mg/dL Normal 74-106 [facility] Comment on above: Performed By: #### R PRQ #### [facility] [address] [address] [address] Jerry Samuel Potassium [Moles/Vol] 3.5 mmol/L Normal 3.5-5.1 [facility] Comment on above: Performed By: #### R PRQ #### [facility] [address] [address] [address] Jerry Samuel Protein [Mass/Vol] 6.9 g/dL Normal 6.4-8.2 [facility] Comment on above: Performed By: #### R PRQ #### [facility] [address] [address] [address] Jerry Samuel Sodium [Moles/Vol] 135 mmol/L Critically low 136-145 [facility] Comment on above: Performed By: #### R PRQ #### [facility] [address] [address] [address] Jerry Samuel Urea nitrogen [Mass/Vol] 6.0 mg/dL Critically low 7.0-18.0 [facility] Comment on above: Performed By: #### R PRQ #### [facility] [address] [place] [address] Dr. Jerry Samuel Urea nitrogen/Creatinine [Mass ratio] 15.0 mg/mg Normal [facility] Comment on above: Performed By: #### R PRQ #### [facility] [address] [place] [address] Dr. Jerry Samuel DOROTEO BOX TEST PT SEND OUTo n 05-02-2022 SENT TO REF LAB 05/02/2022 Normal [facility] Comment on above: Performed By: #### N BOX #### [facility] [address] [place] [address] Dr. Jerry Samuel HEP B SURFACE ANTIGEN SCREEN on 04-05-2022 HBsAg Screen Negative Normal Negative [facility] Comment on above: Performed By: #### N BOX #### [facility] [address] [place] [address] Dr. Jerry Samuel HEPATITIS C VIRUS AB W/ REFL EX QUANTon 04-05-2022 HCV AB <0.1 Normal 0.0-0.9 [facility] Comment on above: Performed By: #### H CVPCRR #### [facility] [address] [place] [address] Dr. Jerry Samuel Interpretation: Comment Normal [facility] Comment on above: Result Comment: Nega tive Not infected with HCV, unless recent infection is suspected or other evidence exists to indicate HCV infection. Performed By: #### H CVPCRR #### [facility] [address] [place] [address] Dr. Jerry Samuel HIV 1 AND 2 WITH REFLEXon HIV Screen 4th Generation wRfx Non-Reactive Normal Non Reactive [facility] Comment on above: Result Comment: HIV Negative HIV-1/HIV-2 antibodies and HIV-1 p24 antigen were NOT detected. There is no laboratory evidence of HIV infection. Performed By: #### R PRQ #### [facility] [address] [place] [address] Dr. Jerry Samuel RPR QUANTon 04-05-2022 Rapid Plasma Reagin, Quant Non-Reactive Normal NonRea<1:1 [facility] Comment on above: Result Comment: Plea se Note: This test does not meet current guidelines for screening and diagnosis of syphilis. This test is intended for following treatment response in patients being treated for syphilis infection. To screen for syphilis infection, a reflex cascade that includes both RPR and a treponema-specific assay should be utilized, such as Treponema pallidum (Syphilis) Screening [place] (659825) or Rapid Plasma Reagin (RPR) Test With Reflex to Quantitative RPR and Confirmatory Treponema pallidum Antibodies (051126). Performed By: #### R PRQ #### [facility] [address] [place] [address] Dr. Jerry Samuel RUBELLA AB IGGon 04-05-2022 Rubella Antibodies, IgG 1.97 index Normal Immune >0.99 [facility] Comment on above: Result Comment: Non- immune <0.90 Equivocal 0.90 - 0.99 Immune >0.99 Performed By: #### R UBIGG #### [facility] [address] [place] [address] Dr. Jerry Samuel CBC AUTO DIFFon 04-04-2022 BASO # 0.0 103/ul Normal 0.0-0.1 [facility] Comment on above: Performed By: #### R PRQ #### [facility] [address] [place] [address] Dr. Jerry Samuel Basophils/100 WBC (Bld) 0.3 % Normal 0.2-2.0 [facility] Comment on above: Performed By: #### R PRQ #### [facility] [address] [place] [address] Dr. Jerry Samuel EO # 0.1 103/ul Normal 0.0-0.7 [facility] Comment on above: Performed By: #### R PRQ #### [facility] [address] [place] [address] Dr. Jerry Samuel Eosinophils/100 WBC (Bld) 0.7 % Critically low 0.9-7.0 [facility] Comment on above: Performed By: #### R PRQ #### [facility] [address] [place] [address] Dr. Jerry Samuel Erythrocyte distribution width (RBC) [Ratio] 12.3 % Normal 11.0-15.0 [facility] Comment on above: Performed By: #### R PRQ #### [facility] [address] [place] [address] Dr. Jerry Samuel Hematocrit (Bld) [Volume fraction] 35.1 % Critically low 36.0-48.0 [facility] Comment on above: Performed By: #### R PRQ #### [facility] [address] [place] [address] Dr. Jerry Samuel Hemoglobin (Bld) [Mass/Vol] 11.8 g/dL Critically low 12.0-16.0 [facility] Comment on above: Performed By: #### R PRQ #### [facility] [address] [place] [address] Dr. Jerry Samuel IG # 0.02 10e3/ul Normal 0.00-0.03 [facility] Comment on above: Performed By: #### R PRQ #### [facility] [address] [place] [address] Dr. Jerry Samuel IG % 0.3 % Normal 0.0-0.5 [facility] Comment on above: Performed By: #### R PRQ #### [facility] [address] [place] [address] Dr. Jerry Samuel LYMPH # 2.0 103/ul Normal 1.2-3.8 [facility] Comment on above: Performed By: #### R PRQ #### [facility] [address] [place] [address] Dr. Jerry Samuel Lymphocytes/100 WBC (Bld) 26.7 % Normal 20.5-60.0 [facility] Comment on above: Performed By: #### R PRQ #### [facility] [address] [place] [address] Dr. Jerry Samuel MANUAL DIFF REQ NO Normal [facility] Comment on above: Performed By: #### R PRQ #### [facility] [address] [place] [address] Dr. Jerry Samuel MCH (RBC) [Entitic mass] 29.0 pg Normal 26.7-34.0 [facility] Comment on above: Performed By: #### R PRQ #### [facility] [address] [place] [address] Dr. Jerry Samuel MCHC (RBC) [Mass/Vol] 33.6 g/dL Normal 29.9-35.2 [facility] Comment on above: Performed By: #### R PRQ #### [facility] [address] [place] [address] Dr. Jerry Samuel MCV (RBC) [Entitic vol] 86.2 fL Normal 81.0-99.0 [facility] Comment on above: Performed By: #### R PRQ #### [facility] [address] [place] [address] Dr. Jerry Samuel MONO # 0.5 103/ul Normal 0.3-0.8 [facility] Comment on above: Performed By: #### R PRQ #### [facility] [address] [place] [address] Dr. Jerry Samuel Monocytes/100 WBC (Bld) 6.7 % Normal 1.7-12.0 [facility] Comment on above: Performed By: #### R PRQ #### [facility] [address] [place] [address] Dr. Jerry Samuel NEUT # 4.9 103/ul Normal 1.4-6.5 [facility] Comment on above: Performed By: #### R PRQ #### [facility] [address] [place] [address] Dr. Jerry Samuel Neutrophils/100 WBC (Bld) 65.3 % Normal 43.0-75.0 [facility] Comment on above: Performed By: #### R PRQ #### [facility] [address] [place] [address] Dr. Jerry Samuel Platelet mean volume (Bld) [Entitic vol] 10.0 fL Normal 9.5-13.5 [facility] Comment on above: Performed By: #### R PRQ #### [facility] [address] [address] [address] Jerry Samuel PLT 218 103/ul Normal 150-450 [facility] Comment on above: Performed By: #### R PRQ #### [facility] [address] [address] [address] Jerry Samuel RBC 4.07 106/ul Critically low 4.20-5.40 [facility] Comment on above: Performed By: #### R PRQ #### [facility] [address] [address] [address] Jerry Samuel WBC 7.5 103/ul Normal 4.0-11.0 [facility] Comment on above: Performed By: #### R PRQ #### [facility] [address] [place] [address] Dr. Jerry Samuel CULTURE URINEon 04-04-2022 CULTURE URINE Culture Observations : NO GROWTH. Normal [facility] Comment on above: Performed By: #### N BOX #### [facility] [address] [place] [address] Dr. Jerry Samuel GLYCOHEMOGLOBIN A1Con 2021 ADA RECOMMENDATION SEE BELOW Normal [facility] Comment on above: Result Comment: ADA RECOMMENDED LIMIT 4.0 - 6.0 ADA THERAPEUTIC TARGET < 7.0 ACTION SUGGESTED > 7.0 Performed By: #### N BOX #### [facility] [address] [place] [address] Dr. Jerry Samuel Glucose [Mass/Vol] 97 mg/dL Normal [facility] Comment on above: Performed By: #### N BOX #### [facility] [address] [place] [address] Dr. Jerry Samuel HbA1c (Bld) [Mass fraction] 5.0 % Normal 4.5-6.2 [facility] Comment on above: Performed By: #### N BOX #### [facility] [address] [place] [address] Dr. Jerry Samuel TYPE AND SCREENon 04-04-2022 TYPE AND SCREEN Negative Normal [facility] Comment on above: Performed By: #### N BOX #### [facility] [address] [place] [address] Dr. Jerry Samuel US PREG TVon 04-04-2022 US PREG TV EXAMINATION: US PREG TV HISTORY: Missed period COMPARISON: No relevant comparison available. FINDINGS: Patrick intrauterine gestation Gestational sac: 3.6 cm, 9 weeks 1 day CRL: 2.32 cm, 9 weeks 0 days Yolk sac: 5.4 mm Heart rate: 182 bpm Cervix: Closed, 3.9 cm The uterus is normal in appearance, anteverted, anteflexed The ovaries are normal in appearance. Clinical age: 8 weeks 5 days Clinical ROLANDO: 11/09/2022 Ultrasound age: 9 weeks 0 days Ultrasound ROLANDO: 11/07/2022 IMPRESSION: Viable patrick intrauterine gestation measuring 9 weeks 0 days Electronically authenticated by: EDITH WILLIS Date: 2022-04-04 16:13 Normal [facility] PREG QUANT HCGon 03-07-2022 HCG QUANT 2201 mIU/mL Normal [facility] Comment on above: Performed By: #### R PRQ #### [facility] [address] [place] [address] Dr. Jerry Samuel HCG RANGE SEE BELOW Normal [facility] Comment on above: Result Comment: 5-50 0.2-1 WEEK 50-500 1-2 WEEKS 100-5,000 2-3 WEEKS 500-10,000 3-4 WEEKS 1,000-50,000 4-5 WEEKS 10,000-100,000 5-6 WEEKS 15,000-200,000 6-8 WEEKS 10,000-100,000 2-3 MONTHS Performed By: #### R PRQ #### [facility] [address] [place] [address] Dr. Jerry Samuel PREG QUANT HCGon 03-05-2022 HCG QUANT 820 mIU/mL Normal [facility] Comment on above: Performed By: #### R PRQ #### [facility] [address] [place] [address] Dr. Jerry Samuel HCG RANGE SEE BELOW Normal [facility] Comment on above: Result Comment: 5-50 0.2-1 WEEK 50-500 1-2 WEEKS 100-5,000 2-3 WEEKS 500-10,000 3-4 WEEKS 1,000-50,000 4-5 WEEKS 10,000-100,000 5-6 WEEKS 15,000-200,000 6-8 WEEKS 10,000-100,000 2-3 MONTHS Performed By: #### R PRQ #### [facility] [address] [address] [address] Jerry Samuel PAP ACOG PANEL 2: 21 to 29on 02-21-2022 . . Normal [facility] Comment on above: Performed By: #### R PRQ #### [facility] [address] [address] [address] Jerry Samuel Age Gdln ACOG Testing - [facility] Comment on above: Performed By: #### R PRQ #### [facility] [address] [place] [address] Dr. Jerry Samuel DIAGNOSIS: Comment [facility] Comment on above: Result Comment: NEGA TIVE FOR INTRAEPITHELIAL LESION OR MALIGNANCY. SPECIMEN REPROCESSED FOR INTERPRETATION. Performed By: #### R PRQ #### [facility] [address] [address] [address] Jerry Samuel Methodology: Comment [facility] Comment on above: Result Comment: This liquid based ThinPrep(R) pap test was screened with the use of an image guided system. Performed By: #### R PRQ #### [facility] [address] [place] [address] Dr. Jerry Samuel Note: Comment [facility] Comment on above: Result Comment: The Pap smear is a screening test designed to aid in the detection of premalignant and malignant conditions of the uterine cervix. It is not a diagnostic procedure and should not be used as the sole means of detecting cervical cancer. Both false-positive and false-negative reports do occur. . Performed By: #### R PRQ #### [facility] [address] [address] [address] Jerry Samuel Performed by: Comment [facility] Comment on above: Result Comment: Anders Roman, Reading Interventionist (ASCP) Performed By: #### R PRQ #### [facility] [address] [place] [address] Dr. Jerry Samule Reflex Criteria: Comment Normal [facility] Comment on above: Result Comment: The HPV DNA reflex criteria were not met with this specimen result therefore, no HPV testing was performed. . Performed By: #### R PRQ #### [facility] [address] [place] [address] Dr. Jerry Samuel Specimen adequacy: Comment Normal [facility] Comment on above: Result Comment: Sati sfactory for evaluation. Endocervical and/or squamous metaplastic cells (endocervical component) are present. Performed By: #### R PRQ #### [facility] [address] [place] [address] Dr. Jerry Samuel US PELVIS AND TRANSVAGon US PELVIS AND TRANSVAG EXAMINATION: US PELVIS AND TRANSVAG HISTORY: Dysmenorrhea COMPARISON: No relevant comparison available. FINDINGS: The uterus is normal in size, contour and echotexture measuring 7.4 x 4.6 x 3.7 cm. Anteverted. 1.3 cm hyperechogenic left uterine mass. The endometrium measures 10 mm, normal. The right ovary measures 3.1 x 1.8 x 2.2 cm. Normal color and Doppler flow. Area of anechoic echogenicity measuring 1.5 cm, simple cyst Left ovary is normal in appearance measuring 2.7 x 2.6 x 2.2 cm. Normal color and Doppler flow No free fluid IMPRESSION: 1.3 cm myometrial mass, a fibroid is favored 1.5 cm right ovarian simple cyst Electronically authenticated by: EDITH WILLIS Date: 2022-02-13 14:34 Normal [facility] CBC AUTO DIFFon 02-12-2022 BASO # 0.0 103/ul Normal 0.0-0.1 [facility] Comment on above: Performed By: #### C BC #### [facility] [address] [place] [address] Dr. Jerry Samuel Basophils/100 WBC (Bld) 0.6 % Normal 0.2-2.0 [facility] Comment on above: Performed By: #### C BC #### [facility] [address] [place] [address] Dr. Jerry Samuel EO # 0.1 103/ul Normal 0.0-0.7 [facility] Comment on above: Performed By: #### C BC #### [facility] [address] [place] [address] Dr. Jerry Samuel Eosinophils/100 WBC (Bld) 1.2 % Normal 0.9-7.0 [facility] Comment on above: Performed By: #### C BC #### [facility] [address] [place] [address] Dr. Jerry Samuel Erythrocyte distribution width (RBC) [Ratio] 11.9 % Normal 11.0-15.0 [facility] Comment on above: Performed By: #### C BC #### [facility] [address] [place] [address] Dr. Jerry Samuel Hematocrit (Bld) [Volume fraction] 39.1 % Normal 36.0-48.0 [facility] Comment on above: Performed By: #### C BC #### [facility] [address] [place] [address] Dr. Jerry Samuel Hemoglobin (Bld) [Mass/Vol] 13.0 g/dL Normal 12.0-16.0 [facility] Comment on above: Performed By: #### C BC #### [facility] [address] [place] [address] Dr. Jerry Samuel IG # 0.01 10e3/ul Normal 0.00-0.03 [facility] Comment on above: Performed By: #### C BC #### [facility] [address] [place] [address] Dr. Jerry Samuel IG % 0.2 % Normal 0.0-0.5 [facility] Comment on above: Performed By: #### C BC #### [facility] [address] [place] [address] Dr. Jerry Samuel LYMPH # 2.4 103/ul Normal 1.2-3.8 [facility] Comment on above: Performed By: #### C BC #### [facility] [address] [place] [address] Dr. Jerry Samuel Lymphocytes/100 WBC (Bld) 37.7 % Normal 20.5-60.0 [facility] Comment on above: Performed By: #### C BC #### [facility] [address] [place] [address] Dr. Jerry Samuel MANUAL DIFF REQ NO Normal [facility] Comment on above: Performed By: #### C BC #### [facility] [address] [place] [address] Dr. Jerry Samuel MCH (RBC) [Entitic mass] 29.2 pg Normal 26.7-34.0 [facility] Comment on above: Performed By: #### C BC #### [facility] [address] [place] [address] Dr. Jerry Samuel MCHC (RBC) [Mass/Vol] 33.2 g/dL Normal 29.9-35.2 [facility] Comment on above: Performed By: #### C BC #### [facility] [address] [place] [address] Dr. Jerry Samuel MCV (RBC) [Entitic vol] 87.9 fL Normal 81.0-99.0 [facility] Comment on above: Performed By: #### C BC #### [facility] [address] [place] [address] Dr. Jerry Samuel MONO # 0.4 103/ul Normal 0.3-0.8 [facility] Comment on above: Performed By: #### C BC #### [facility] [address] [place] [address] Dr. Jerry Samuel Monocytes/100 WBC (Bld) 5.9 % Normal 1.7-12.0 [facility] Comment on above: Performed By: #### C BC #### [facility] [address] [place] [address] Dr. Jerry Samuel NEUT # 3.5 103/ul Normal 1.4-6.5 [facility] Comment on above: Performed By: #### C BC #### [facility] [address] [place] [address] Dr. Jerry Samuel Neutrophils/100 WBC (Bld) 54.4 % Normal 43.0-75.0 [facility] Comment on above: Performed By: #### C BC #### [facility] [address] [place] [address] Dr. Jerry Samuel Platelet mean volume (Bld) [Entitic vol] 9.9 fL Normal 9.5-13.5 [facility] Comment on above: Performed By: #### C BC #### [facility] [address] [place] [address] Dr. Jerry Samuel PLT 229 103/ul Normal 150-450 [facility] Comment on above: Performed By: #### C BC #### [facility] [address] [place] [address] Dr. Jerry Samuel RBC 4.45 106/ul Normal 4.20-5.40 [facility] Comment on above: Performed By: #### C BC #### [facility] [address] [place] [address] Dr. Jerry Samuel WBC 6.5 103/ul Normal 4.0-11.0 [facility] Comment on above: Performed By: #### C BC #### [facility] [address] [place] [address] Dr. Jerry Samuel FREE T4on 02-12-2022 Free T4 [Mass/Vol] 0.99 ng/dL Normal 0.76-1.[address] [facility] Comment on above: Performed By: #### R PRQ #### [facility] [address] [place] [address] Dr. Jerry Samuel GLYCOHEMOGLOBIN A1Con 2021 ADA RECOMMENDATION SEE BELOW Normal [facility] Comment on above: Result Comment: ADA RECOMMENDED LIMIT 4.0 - 6.0 ADA THERAPEUTIC TARGET < 7.0 ACTION SUGGESTED > 7.0 Performed By: #### R PRQ #### [facility] [address] [place] [address] Dr. Jerry Samuel Glucose [Mass/Vol] 103 mg/dL Normal [facility] Comment on above: Performed By: #### R PRQ #### [facility] [address] [place] [address] Dr. Jerry Samuel HbA1c (Bld) [Mass fraction] 5.2 % Normal 4.5-6.2 [facility] Comment on above: Performed By: #### R PRQ #### [facility] [address] [place] [address] Dr. Jerry Samuel PROTIMEon 02-12-2022 INR Coag (PPP) [Relative time] 1.00 {INR} Normal [facility] Comment on above: Performed By: #### N BOX #### [facility] [address] [place] [address] Dr. Jerry Samuel INR GUIDELINES SEE BELOW Normal [facility] Comment on above: Result Comment: SACHA RED INR: 2.0 - 3.0 CONDITIONS NOT LISTED BELOW 2.5 - 3.5 FOR PROSTHETIC HEART VALVE REPLACEMENT 2.5 - 3.5 RECURRENT THROMBOSIS Performed By: #### N BOX #### [facility] [address] [place] [address] Dr. Jerry Samuel PT Coag (PPP) [Time] 10.8 s Normal 9.0-11.6 [facility] Comment on above: Performed By: #### N BOX #### [facility] [address] [place] [address] Dr. Jerry Samuel PTTon 02-12-2022 aPTT Coag (Bld) [Time] 27.8 s Normal 22.3-36.2 [facility] Comment on above: Performed By: #### N BOX #### [facility] [address] [place] [address] Dr. Jerry Samuel TSHon 02-12-2022 TSH 1.741 uIU/mL Normal 0.358-3.740 [facility] Comment on above: Performed By: #### T SH #### [facility] [address] [place] [address] Dr. Jerry Samuel Outside Recordson 11-20-2021 Outside Records [id number]#1.00OTG TIFF Normal [facility] Outside Recordson 11-16-2021 Outside Records [id number]#1.00OT GTIFF Normal [facility] HCG,Urineon 02-22-2021 Beta HCG ( test) Ql (U) Negative Normal [facility] Comment on above: Result Comment: PERF ORMED BY: [address] [place] [address] PATHOLOGIST [employer] PRIYA WHITE M.D. Performed By: #### U HCG #### [place] [id number] [facility] [place] Aditya 02-22-2021 L ---- Specimen: [id number] Received: 02/23/21 Status: DRE Elizabeth Num: [id number] Spec Type: Surgical Subm Dr: Edith Cagle Jr, DO Tissues: A Duodenum - Biopsy (DUODENUM BX) B Stomach - Biopsy/Polyp (ANTRUM BX) C Colon Biopsy (RANDOM COLON) Procedures: HE Stain/6, Gross/Micro L4/3 Patient Age/Sex Location Account Attending Physician Will Shay Jose Luis / [id number] Edith Cagle Jr, DO SPEC NUM: [id number] RECD: 02/23/21 STATUS: DRE ELIZABETH NUM: [id number] CASIMIRO: 02/22/21- DR: Edith Cagle Jr, DO ENTERED: 02/23/[address]: ANITA TYPE: Surgical DEPT: S ENTERED BY: [id number] RECV BY: [id number] ORDERED: HE Stain/6, Gross/Micro L4/3 ORDERED: HE Stain/6, Gross/Micro L4/3 Pathological Diagnosis A. Duodenum, biopsy: - Duodenal mucosa with no significant pathologic findings. - No villous atrophy are intraepithelial lymphocytosis identified. B. Stomach, antrum, biopsy: - Mild chronic gastritis. - H. pylori stain is negative for microorganisms. C. Random colon, biopsy: - Colonic mucosa with no significant pathologic findings. Clinical Information Dyspnea, GERD, abdominal pain, diarrhea Gross Description A. Received in formalin labeled with the patient's name, number and duodenum rule out celiac are 2 marsh tissue fragments, 0.3 cm and 0.4 cm. Entirely submitted in one cassette labeled A1. (SM/YJ) B. Received in formalin labeled with the patient's name, number and antrum rule out H. pylori is a 0.5 cm marsh tissue fragment. Entirely submitted in one cassette labeled B1. (SM/YJ) Specimen: [id number] Received: 02/23/21 Status: DRE Elizabeth Num: [id number] Spec Type: Surgical Subm Dr: Edith Cagle Jr, DO Tissues: A Duodenum - Biopsy (DUODENUM BX) B Stomach - Biopsy/Polyp (ANTRUM BX) C Colon Biopsy (RANDOM COLON) Procedures: HE Stain/6, Gross/Micro L4/3 Patient: Will Shay Jose Luis [id number] (Continued) Specimen: Received: 02/23/21 (Continued) Gross Description (Continued) Signed (signature on file) Gail Corckett MD 02/26/21 1601 Specimen: Received: 02/23/21 Status: DRE Elizabeth Num: [id number] Spec Type: Surgical Subm Dr: Edith Cagle Jr, DO Tissues: A Duodenum - Biopsy (DUODENUM BX) B Stomach - Biopsy/Polyp (ANTRUM BX) C Colon Biopsy (RANDOM COLON) Procedures: HE Stain/6, Gross/Micro L4/3 Patient: Wlil Shay [id number] (Continued) Specimen: [id number] Received: 02/23/21 (Continued) Gross Description (Continued) C. Received in formalin labeled with the patient's name, number and random colon rule out microscopic colitis are 2 marsh tissue fragments, 0.3 cm and 0.9 cm. Entirely submitted in one cassette labeled C1. (/Keith) Microscopic Description A. Two glass slides with H E stained material have been examined. The microscopic findings support the above pathologic diagnosis. B. Two glass slides with H E stained material and one IHC stained slide have been examined. The microscopic findings support the above pathologic diagnosis. C. Two glass slides with H E stained material have been examined. The microscopic findings support the above pathologic diagnosis. The use of one or more reagents in the above tests is regulated as an analyte specific reagent (ASR). The performance characteristics were determined by the Laboratory of [facility]. Immunohistochemistry assays have not been validated on decalcified tissue. Results should be interpreted with caution given the possibility of false negative results on decalcified specimens. They have not been cleared by the US Food and Drug Administration. The FDA has determined that such clearance or approval is not necessary. CPT Codes 32874?3, 03351 (more content not included)... 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 This test has not been FDA cleared or approved. This test has been authorized by FDA under an Emergency Use Authorization (EUA). This test has been validated in accordance with the FDA's Guidance Document (Policy for Diagnostics Testing in Laboratories Certified to Perform High Complexity Testing under CLIA prior to Emergency Use Authorization for Coronavirus Disease-2019 during the Public Health Emergency) issued on July 08, 2019. This test is only authorized for the duration of time the declaration that circumstances exist justifying the authorization of the emergency use of in vitro diagnostic tests for detection of SARS-CoV-2 virus and/or diagnosis of COVID-19 infection under section 564(b)(1) of the Act, 21 U.S.C. 360bbb-3(b)(1), unless the authorization is terminated or revoked sooner. PERFORMED BY: [facility] [place] [place] [address] PATHOLOGIST [employer] PRIYA WHITE M.D. Performed By: #### C OVID 19 [facility] [place] #### [address] Vital Signs Date Time Vital Sign Value Performing Clinician Facility 03-26-2023 13:45-0500 Body height 164.47 cm Ben Rose Other [facility] Other 03-26-2023 13:45-0500 Body mass index (BMI) [Ratio] 29.6 kg/m2 Ben Rose Other [facility] Other 03-26-2023 13:45-0500 Body weight 80.06 kg Ben Rose Other [facility] Other 03-26-2023 13:45-0500 Diastolic blood pressure 74 mm[Hg] Ben Moralesy Other [facility] Other 03-26-2023 13:45-0500 Systolic blood pressure 120 mm[Hg] Ben Elinortty Other [facility] Other 06-14-2022 17:07-0500 Body weight 79.[address] EDDIE VALIENTE . [facility] Comment on above: Performed By: #### RPRQ #### [facility] [address] [place] [address] Dr. Jerry Samuel 03-08-2022 11:15-0500 Body height 164.47 cm Ben Rose Other [facility] Other 03-08-2022 11:15-0500 Body mass index (BMI) [Ratio] 29.01 kg/m2 Ben Rose Other [facility] Other 03-08-2022 11:15-0500 Body weight 78.47 kg Ben Rose Other [facility] Other 03-08-2022 11:15-0500 Diastolic blood pressure 73 mm[Hg] Ben Rose Other [facility] Other 03-08-2022 11:15-0500 Systolic blood pressure 113 mm[Hg] Ben Rose Other [facility] Other Encounters Encounter Date Encounter Type Care Provider Facility Start: 03-27-2023 End: 03-27-2023 ambulatory GENTRY KIM Not Available Start: 03-26-2023 End: 03-26-2023 ambulatory Ben Rose Other [facility] Other Start: 03-26-2023 Patient encounter procedure Ben [facility] Start: 03-05-2023 End: 03-05-2023 ambulatory EDDIE VALIENTE Not Available Start: 01-24-2023 End: 01-24-2023 ambulatory Ben Rose Other [facility] Other Start: 01-24-2023 Telephone encounter Ben FORD [facility] Start: 07-25-2022 End: 07-26-[address] EDDIE VALIENTE . Facility:[facility] Start: 07-02-2022 End: 07-03-[address] EDDIE VALIENTE . Facility:[facility] Start: 06-12-2022 End: 06-13-[address] EDDIE VALIENTE . Facility:[facility] Start: 06-04-2022 End: 06-04-[address] EDDIE VALIENTE . Facility:[facility] Start: 05-26-2022 End: 05-26-2022 ambulatory NNAMDI CASTLE . Facility:[facility] Start: 05-02-2022 End: 05-03-[address] EDDIE VALIENTE . Facility:[facility] Start: 04-19-2022 End: 04-20-2022 ambulatory NORA SIU . Facility:[facility] Start: 04-04-2022 End: 04-05-[address] EDDIE VALIENTE . Facility:[facility] Start: 04-04-2022 End: 04-05-2022 ambulatory ANGELES MIKAEL Facility:[facility] Start: 03-08-2022 End: 03-08-2022 ambulatory Ben Rose Other [facility] Other Start: 03-08-2022 Patient encounter procedure Ben Rose [facility] Start: 03-07-2022 End: 03-08-[address] EDDIE VALIENTE . Facility:[facility] Start: 03-05-2022 End: 03-06-2022 ambulatory ANGELES MIKAEL Facility:[facility] Start: 02-13-2022 End: 02-14-2022 ambulatory ANGELES MIKAEL Facility:[facility] Start: 02-12-2022 End: 02-12-2022 ambulatory ANGELES MIKAEL Facility:[facility] Start: 02-12-2022 End: 02-13-2022 ambulatory ANGELES MIKAEL Facility:[facility] Start: 11-12-2021 End: 11-20-2021 ambulatory ANGELES MIKAEL Facility:[facility] Start: 11-06-2021 End: 11-06-2021 ambulatory Angeles A Mikael [employer] Facility:[facility] Start: 11-05-2021 End: 11-06-2021 ambulatory Angeles A Mikael [employer] Facility:[facility] Immunizations Immunization Date Immunization Notes Care Provider Michael albright 11-08-2014 human papilloma viru s vaccine, quadrivalent Ben Rose Other [facility] Other Payers Date Payer Category Payer Unknown [id number] 2021 Unknown [id number] 1996 Unknown [id number] 2.16.84 0.1.253932.3.579.2.8 1996 Unknown [id number] 2.16.8 40.1.293932.3.579.2.8 1996 Unknown [id number] 2.16.84 0.1.516212.3.579.2.593 1996 Unknown [id number] 2.16.84 0.1.517169.3.579.2.593 1996 Unknown [id number] 2.16.84 0.1.936896.3.579.2.593 1996 Unknown [id number] 2.16.84 0.1.365601.3.579.2.593 1996 Unknown [id number] 2.16.84 0.1.517656.3.579.2.593 1996 Unknown [id number] .16.84 0.1.463109.3.579.2.593 1996 Unknown [id number] .16.84 0.1.059042.3.579.2.593 1996 Unknown [id number] .16.84 0.1.020798.3.579.2.593 1996 Unknown [id number] 2.16.84 0.1.531830.3.579.2.593 1996 Unknown [id number] .16.84 0.1.625272.3.579.2.593 1996 Unknown [id number] .16.84 0.1.192219.3.579.2.593 1996 Unknown [id number] .16.84 0.1.620915.3.579.2.593 1996 Unknown [id number] .16.84 0.1.271903.3.579.2.593 1996 Unknown [id number] .16.84 0.1.171183.3.579.2.593 1996 Unknown [id number] .16.84 0.1.796404.3.579.2.593 1996 Unknown [id number] .16.840 .1.198870.3.579.2.1259 1996 Unknown [id number] 2.16.840 .1.588705.3.579.2.1259 1959 Self-pay 1959 Unknown [id number] 2.16. 840.1.692189.19 1959 Unknown [id number] 2. 16.840.1.288336.19 1959 Unknown [id number] 1959 Unknown [id number] Unknown [id number] 2.16.84 0.1.672431.3.579.2.593 Social History Date Type Detail Facility Unknown if ever smoked [facility] Other Sex Assigned At Sex Assigned At Bir th [facility] Other Evaluation note 03-26-2023 Note Date & Type Note Facility 03-26-2023 Evaluation note Encounter Date Diagnosis Assessment Notes Mar, GERD (gastroesophage al reflux disease) (ICD-10 - K21.9) Patient reports that she is doing well on pantoprazole 40 mg daily and will continue therapy Mar, Constipation (ICD-10 - K59.00) Patient reports that she has intermittent constipation Patient reports that she is Patient is advised to take an OTC fiber and will call office if she has no improvement [facility] Other Evaluation note 01-24-2023 Note Date & Type Note Facility 01-24-2023 Evaluation note Encounter Date Diagnosis Assessment Notes Jan, Epigastric burning sensation (ICD-10 - R10.13) [facility] Other Evaluation note 03-08-2022 Note Date & Type Note Facility 03-08-2022 Evaluation note Encounter Date Diagnosis Assessment Notes Mar, Nausea (ICD-10 - R11.0) Mar, Epigastric burning sensation (ICD-10 - R10.13) Mar, Lower abdominal pain (ICD-10 - R10.30) Mar, Bloating (ICD-10 - R14.0) Mar, Functional dyspepsia (ICD-10 - K30) Mar, GERD (gastroesopha geal reflux disease) (ICD-10 - K21.9) CONTINUE PANTOPRAZOLE 40 MG DAILY CONTINUE LEVSIN NEEDED RTO 1 YR [facility] Other History general Narrative - Reported Note Date & Type Note Facility History general Narrative - Reported Type Medical History scoliosis Medical History hx of mono Surgical History [place] teeth x4 [facility] Other History general Narrative - Reported Note Date & Type Note Facility History general Narrative - Reported Type Medical History scoliosis Medical History hx of mono Surgical History [place] teeth x4 Surgical History C section [employer] [facility] [employer] Other Summary Purpose Family History No Family History Records FoundNo Family History Records FoundNo Family History Records FoundNo Family History Records Found Advance Directives No Advanced Directives Records FoundNo Advanced Directives Records FoundNo Advanced Directives Records FoundNo Advanced Directives Records Found Additional Source Comments INFORMATION SOURCE (unrecogn ized section and content) DATE CREATED AUTHOR 02/27/2021 [facility] [place] DATE CREATED AUTHOR AUTHOR'S ORGANIZ ATION 07/24/2022 [facility] DATE CREATED AUTHOR AUTHOR'S ORGANIZ ATION 08/08/2022 [facility] DATE CREATED AUTHOR AUTHOR'S ORGANIZ ATION 03/28/2023 [facility] Special[facility] EPIC REASON FOR VISIT (unrecogniz ed section and content) PT HERE FOR 4 MONTH FOLLOW U PREFILL1 year Follow up FOR RECORDS PERTAINING TO PATIENTS WHO ARE OR HAVE BEEN ENROLLED IN A CHEMICAL DEPENDENCY/SUBSTANCEABUSE PROGRAM, SOME INFORMATION MAY BE OMITTED. This clinical summary was aggregated from multiple sources. Caution should be exercised in using it in the provision of clinical care. This summary normalizes information from multiple sources, and as a consequence, information in this document may materially change the coding, format and clinical context of patient data. In addition, data may be omitted in some cases. CLINICAL DECISIONS SHOULD BE BASED ON THE PRIMARY CLINICAL RECORDS. [employer] provides no warranty or guarantee of the accuracy or completeness of information in this document.
[2023-08-09 08:03] LABS: Basophils Percent Auto 0.7 % (0.2-2.0); Eosinophils Absolute Auto 0.1 10^3/uL (0.0-0.7); Eosinophils Percent Auto 1.7 % (0.9-7.0); Hematocrit 38.4 % (36.0-48.0); Hemoglobin 12.1 g/dL (12.0-16.0); Immature Granulocytes Abs Auto 0.01 10^3/uL (0.00-0.03); Immature Granulocytes Pct Auto 0.2 % (0.0-0.5); Lymphocytes Absolute Auto 2.2 10^3/uL (1.2-3.8); Lymphocytes Percent Auto 38.1 % (20.5-60.0); Mean Corpuscular HGB Conc 31.5 g/dL (29.9-35.2); Mean Corpuscular Hemoglobin 27.9 pg (26.7-34.0); Mean Corpuscular Volume 88.5 fL (81.0-99.0); Mean Platelet Volume 10.4 fL (9.5-13.5); Monocytes Absolute Auto 0.4 10^3/uL (0.3-0.8); Monocytes Percent Auto 6.4 % (1.7-12.0); Neutrophils Absolute Auto 3.1 10^3/uL (1.4-6.5); Neutrophils Percent Auto 52.9 % (43.0-75.0); Platelet Count 229 10^3/uL (150-450); Red Blood Count 4.34 10^6/uL (4.20-5.40); Red Cell Distribution Width 13.2 % (11.0-15.0); White Blood Count 5.8 10^3/uL (4.0-11.0)
[2023-08-09 08:19] LABS: Percent Iron Saturation 22.8 %
[2023-08-09 08:30] LABS: Alanine Aminotransferase 18 U/L (14-59); Albumin Level 3.7 g/dL (3.4-5.0); Alkaline Phosphatase 89 U/L (46-116); Anion Gap 12.8; Aspartate Amino Transferase 14 U/L (15-37); BUN Creatinine Ratio 16.9; Bilirubin Total 0.8 mg/dL (0.2-1.0); Calcium 8.8 mg/dL (8.5-10.1); Carbon Dioxide 27.1 mmol/L (21.0-32.0); Chloride 104 mmol/L (98-107); Chol HDL Ratio 2.1; Cholesterol 155 mg/dL (<=200); Estimated GFR (African America >60 (>=60); Estimated GFR (Non-African Ame >60 (>=60); Globulin 3.7 g/dL; Glucose 96 mg/dL (74-106); HDL Cholesterol 73 mg/dL (40-60); Potassium 3.9 mmol/L (3.5-5.1); Sodium 140 mmol/L (136-145); TSH W/ REFLEX FT4 1.701 uIU/mL (0.358-3.740); Total Protein 7.4 g/dL (6.4-8.2); Triglycerides 31 mg/dL (<=150); VLDL CHOLESTEROL 6.2 mg/dL
[2023-08-10 08:18] LABS: Estradiol 13.6 pg/mL (.); Luteinizing Hormone(LH) 7.6 mIU/mL (.); Progesterone 0.3 ng/mL (.)
== END 2023-08-09 07:18 | disposition home or self-care (01) ==
LOC: LAB 07:19
PROVIDERS: Visit Provider Nurse Practitioner Family
DX: R53.83 Other fatigue (principal); R23.3 Spontaneous ecchymoses; Z13.220 Encounter for screening for lipoid disorders; E55.9 Vitamin D deficiency, unspecified; Z13.228 Encounter for screening for other metabolic disorders; N92.6 Irregular menstruation, unspecified
CPT/HCPCS: 36415; 80053; 80061; 82306; 82670; 82672; 83002; 83540; 83550; 84144; 84443; 85025

== ENCOUNTER 2023-11-10 16:19 | Outpatient (OUT) | payer BC, SELFPAY ==
--- OUTSIDE RECORDS SUMMARY | 2023-11-10 16:33 | XMS_ITS | CCD ---
Author Organization [facility] CliniSyar Care Team Providers Care Lead Trainer Name Role Phone Ben Rose Unavailable Mikael HELIUM ARC WELDER-C, Angeles A Admitting Unavailable Mikael HELIUM ARC WELDER-C, Angeles A Attending Unavailable Mikael HELIUM ARC WELDER-C, Angeles A Primary Care Unavailable Mikael HELIUM ARC WELDER-C, Angeles A Attending Unavailable Mikael HELIUM ARC WELDER-C, Angeles A Primary Care Unavailable ROCCO ., [...] MORGAN Admitting Unavailable ROCCO ., DR MORGAN Attending Unavailable [...] DR MORGAN Attending Unavailable ROCCO ., DR MROGAN Admitting Unavailable ROCCO ., DR MORGAN Consulting [...] Unavailable ROCCO ., DR MORGAN Attending Unavailable HANCOCK, DR EDITH [employer] Consult[employer] Unavailable ROCCO ., DR MORGAN Admitting Unavailable ROCCO ., DR MORGAN Consulting Unavailable ROCCO ., DR MORGAN Consulting Unavailable ROCCO ., DR MORGAN Admitting Unavailable REQUEST, DR NONE LISTED Primary Care Unavaila ble ROCCO ., DR MORGAN Attending Unavailable MIKAEL, ANGELES Primary Care Unavailable ROCCO ., DR MORGAN Attending Unavailable HANCOCK, DR EDITH [employer] Unavailable ROCCO ., [...] (3 sources) Penicillin G Drug Allergy Unknown [employer] Other (1 source) busPIRone; Translations: [buspirone hcl] Drug Allergy [facility] Repository (1 source) Coconut extract; Translations: [coconut] Drug Allergy [facility] Repository (1 source) Penicillins; Translations: [penicillins] Propensity to adverse reactions to drug (disorder) [facility] Repository (1 source) Amoxicillin Drug Allergy [facility] Repository (1 source) Penicillin Drug Allergy [facility] Rep[facility] Medications Current Medications Medication Drug Class(es) [...] TIMES DAILY NEEDED for 30 days PRN 30 Nov, 2021 Active loratadine 10 mg oral tablet (1 [...] 07-25-2022 BASO # 0.0 103/ul Normal 0.0-0.1 [facility] Comment on above: Performed By: #### C BC #### [facility] [address] [address] [address] Jerry Samuel Basophils/100 WBC (Bld) 0.3 % Normal 0.2-2.0 [facility] Comment on above: Performed By: #### C BC #### [facility] [address] [address] [address] Jerry Samuel EO # 0.1 103/ul Normal 0.0-0.7 [facility] Comment on above: Performed By: #### C BC #### [facility] [address] [address] [address] Jerry Samuel Eosinophils/100 WBC (Bld) 1.4 % Normal 0.9-7.0 [facility] Comment on above: Performed By: #### C BC #### [facility] [address] [address] [address] Jerry Samuel Erythrocyte distribution width (RBC) [Ratio] 13.2 % Normal 11.0-15.0 [facility] Comment on above: Performed By: #### C BC #### [facility] [address] [address] [address] Jerry Samuel Hematocrit (Bld) [Volume fraction] 33.9 % Critically low 36.0-48.0 [facility] Comment on above: Performed By: #### C BC #### [facility] [address] [address] [address] Jerry Samuel Hemoglobin (Bld) [Mass/Vol] 11.3 g/dL Critically low 12.0-16.0 [facility] Comment on above: Performed By: #### C BC #### [facility] [address] [address] [address] Jerry Samuel IG # 0.04 10e3/ul Critically high 0.00-0.03 [facility] Comment on above: Performed By: #### C BC #### [facility] [address] [place] [address] Dr. Jerry Samuel IG % 0.6 % Critically high 0.0-0.5 [facility] Comment on above: Performed By: #### C BC #### [facility] [address] [place] [address] Dr. Jerry Samuel LYMPH # 1.9 103/ul Normal 1.2-3.8 [facility] Comment on above: Performed By: #### C BC #### [facility] [address] [place] [address] Dr. Jerry Samuel Lymphocytes/100 WBC (Bld) 30.2 % Normal 20.5-60.0 [facility] Comment on above: Performed By: #### C BC #### [facility] [address] [place] [address] Dr. Jerry Samuel MANUAL DIFF REQ NO Normal [facility] Comment on above: Performed By: #### C BC #### [facility] [address] [place] [address] Dr. Jerry Samuel MCH (RBC) [Entitic mass] 29.9 pg Normal 26.7-34.0 [facility] Comment on above: Performed By: #### C BC #### [facility] [address] [place] [address] Dr. Jerry Samuel MCHC (RBC) [Mass/Vol] 33.3 g/dL Normal 29.9-35.2 [facility] Comment on above: Performed By: #### C BC #### [facility] [address] [place] [address] Dr. Jerry Samuel MCV (RBC) [Entitic vol] 89.7 fL Normal 81.0-99.0 [facility] Comment on above: Performed By: #### C BC #### [facility] [address] [place] [address] Dr. Jerry Samuel MONO # 0.5 103/ul Normal 0.3-0.8 [facility] Comment on above: Performed By: #### C BC #### [facility] [address] [place] [address] Dr. Jerry Samuel Monocytes/100 WBC (Bld) 7.2 % Normal 1.7-12.0 [facility] Comment on above: Performed By: #### C BC #### [facility] [address] [address] [address] Jerry Samuel NEUT # 3.8 103/ul Normal 1.4-6.5 [facility] Comment on above: Performed By: #### C BC #### [facility] [address] [place] [address] Dr. Jerry Samuel Neutrophils/100 WBC (Bld) 60.3 % Normal 43.0-75.0 [facility] Comment on above: Performed By: #### C BC #### [facility] [address] [place] [address] Dr. Jerry Samuel Platelet mean volume (Bld) [Entitic vol] 9.8 fL Normal 9.5-13.5 [facility] Comment on above: Performed By: #### C BC #### [facility] [address] [place] [address] Dr. Jerry Samuel PLT 188 103/ul Normal 150-450 [facility] Comment on above: Performed By: #### C BC #### [facility] [address] [place] [address] Dr. Jerry Samuel RBC 3.78 106/ul Critically low 4.20-5.40 [facility] Comment on above: Performed By: #### C BC #### [facility] [address] [place] [address] Dr. Jerry Samuel WBC 6.2 103/ul Normal 4.0-11.0 [facility] Comment on above: Performed By: #### C BC #### [facility] [address] [place] [address] Dr. Jerry Samuel GLUCOSE - 1HRon 07-25-2022 Glucose [Mass/Vol] 100 mg/dL Normal 74-106 [facility] Comment on above: Performed By: #### N BOX #### [facility] [address] [address] [address] Jerry Samuel US PREG ANATOMY SINGLEon [...] ABRIL SCANLON Date: 2022-07-02 13:45 Normal [facility] AFP MATERNAL FOR SPINA BIFID Aon 06-14-2022 AFP MoM 0.87 Normal [facility] Comment on above: Performed By: #### R PRQ #### [facility] [address] [address] [address] Jerry Samuel AFP Value 39.6 ng/mL Normal [facility] Comment on above: Performed By: #### R PRQ #### [facility] [address] [address] [address] Jerry Samuel AFP, Serum for Spina Bifida Report Normal [facility] Comment on above: Performed By: #### R PRQ #### [facility] [address] [address] [address] Jerry Samuel Comment Comment Normal [facility] Comment on above: Result Comment: Irina Petersen, Ph.D., [facility] Director . References: Available Upon Request. . Multiples Of Median Cutoffs For AFP Elevations Patrick 2.5 Black 2.8 IDD 2.0 Twins 4.5 Abbreviation Definitions IDD - Insulin Dep Diabetes OSBR - Open Spina Bifida Risk . For further inquiries contact [employer] at [phone]. . This test was developed and its performance characteristics determined by [employer]. It has not been cleared or approved by the Food and Drug Administration. Performed By: #### R PRQ #### [facility] [address] [place] [address] Dr. Jerry Samuel Gest Age Collection Date 18.9 weeks Normal [facility] Comment on above: Performed By: #### R PRQ #### [facility] [address] [address] [address] Jerry Samuel Gestat, Age Based on Ultrasound Normal [facility] Comment on above: Result Comment: 09.0 on 04/04/2022 Recalculations are not recommended when gestational dating by LMP and ultrasound are within 10 days. Performed By: #### R PRQ #### [facility] [address] [place] [address] Dr. Jerry Samuel Insulin Dep Diabetes No Normal [facility] Comment on above: Performed By: #### R PRQ #### [facility] [address] [address] [address] Jerry Samuel Interpretation Comment Normal [facility] Comment on above: Result Comment: Inte rpretation: [...] Customer Services to discuss available options. The [employer] recommends amniocentesis be offered to women age 35 and older. Performed By: #### R PRQ #### [facility] [address] [place] [address] Dr. Jerry Samuel [age] Normal [facility] Comment on above: Performed By: #### R PRQ #### [facility] [address] [place] [address] Dr. Jerry Samuel Multiple Gestation No Normal [facility] Comment on above: Performed By: #### R PRQ #### [facility] [address] [place] [address] Dr. Jerry Samuel [place] [address] Normal [facility] Comment on above: Performed By: #### R PRQ #### [facility] [address] [place] [address] Dr. Jerry Samuel PDF . Normal [facility] Comment on above: Performed By: #### R PRQ #### [facility] [address] [place] [address] Dr. Jerry Samuel [facility] Comment on above: Performed By: #### R PRQ #### [facility] [address] [place] [address] Dr. Jerry Samuel Test Results: Negative Normal [facility] Comment on above: Performed By: #### R PRQ #### [facility] [address] [place] [address] Dr. Jerry Samuel CHLAMYDIA/GONOCOCCUS ELINOR (SW AB/URINE/PAPon 06-07-2022 Chlamydia trachomatis, ELINOR Negative Normal Negative [facility] Comment on above: Performed By: #### R PRQ #### [facility] [address] [place] [address] Dr. Jerry Samuel Neisseria gonorrhoeae, ELINOR Negative Normal Negative [facility] Comment on above: Performed By: #### R PRQ #### [facility] [address] [place] [address] Dr. Jerry Samuel VAGINITIS/VAGINOSIS DNA PROB Nayan 06-06-2022 Margaret species Negative Normal Negative [facility] Comment on above: Performed By: #### V AGINT #### [facility] [address] [place] [address] Dr. Jerry Samuel Gardnerella vaginalis Negative Normal Negative [facility] Comment on above: Performed By: #### V AGINT #### [facility] [address] [place] [address] Dr. Jerry Samuel Trichomonas vaginalis Negative Normal Negative [facility] Comment on above: Performed By: #### V AGINT #### [facility] [address] [place] [address] Dr. Jerry Samuel CBC AUTO DIFFon 05-26-2022 BASO # 0.0 103/ul Normal 0.0-0.1 [facility] Comment on above: Performed By: #### C BC #### [facility] [address] [place] [address] Dr. Jerry Samuel Basophils/100 WBC (Bld) 0.1 % Critically low 0.2-2.0 [facility] Comment on above: Performed By: #### C BC #### [facility] [address] [place] [address] Dr. Jerry Samuel EO # 0.0 103/ul Normal 0.0-0.7 [facility] Comment on above: Performed By: #### C BC #### [facility] [address] [place] [address] Dr. Jerry Samuel Eosinophils/100 WBC (Bld) 0.4 % Critically low 0.9-7.0 [facility] Comment on above: Performed By: #### C BC #### [facility] [address] [place] [address] Dr. Jerry Samuel Erythrocyte distribution width (RBC) [Ratio] 12.6 % Normal 11.0-15.0 [facility] Comment on above: Performed By: #### C BC #### [facility] [address] [place] [address] Dr. Jerry Samuel Hematocrit (Bld) [Volume fraction] 34.0 % Critically low 36.0-48.0 [facility] Comment on above: Performed By: #### C BC #### [facility] [address] [place] [address] Dr. Jerry Samuel Hemoglobin (Bld) [Mass/Vol] 11.6 g/dL Critically low 12.0-16.0 [facility] Comment on above: Performed By: #### C BC #### [facility] [address] [place] [address] Dr. Jerry Samuel IG # 0.03 10e3/ul Normal 0.00-0.03 [facility] Comment on above: Performed By: #### C BC #### [facility] [address] [place] [address] Dr. Jerry Samuel IG % 0.4 % Normal 0.0-0.5 [facility] Comment on above: Performed By: #### C BC #### [facility] [address] [place] [address] Dr. Jerry Samuel LYMPH # 1.1 103/ul Critically low 1.2-3.8 [facility] Comment on above: Performed By: #### C BC #### [facility] [address] [place] [address] Dr. Jerry Samuel Lymphocytes/100 WBC (Bld) 16.5 % Critically low 20.5-60.0 [facility] Comment on above: Performed By: #### C BC #### [facility] [address] [place] [address] Dr. Jerry Samuel MANUAL DIFF REQ NO Normal [facility] Comment on above: Performed By: #### C BC #### [facility] [address] [place] [address] Dr. Jerry Samuel MCH (RBC) [Entitic mass] 29.1 pg Normal 26.7-34.0 [facility] Comment on above: Performed By: #### C BC #### [facility] [address] [place] [address] Dr. Jerry Samuel MCHC (RBC) [Mass/Vol] 34.1 g/dL Normal 29.9-35.2 [facility] Comment on above: Performed By: #### C BC #### [facility] [address] [address] [address] Jerry Samuel MCV (RBC) [Entitic vol] 85.2 fL Normal 81.0-99.0 [facility] Comment on above: Performed By: #### C BC #### [facility] [address] [address] [address] Jerry Samuel MONO # 0.4 103/ul Normal 0.3-0.8 [facility] Comment on above: Performed By: #### C BC #### [facility] [address] [address] [address] Jerry Samuel Monocytes/100 WBC (Bld) 6.0 % Normal 1.7-12.0 [facility] Comment on above: Performed By: #### C BC #### [facility] [address] [address] [address] Jerry Samuel NEUT # 5.1 103/ul Normal 1.4-6.5 [facility] Comment on above: Performed By: #### C BC #### [facility] [address] [address] [address] Jerry Samuel Neutrophils/100 WBC (Bld) 76.6 % Critically high 43.0-75.0 [facility] Comment on above: Performed By: #### C BC #### [facility] [address] [address] [address] Jerry Samuel Platelet mean volume (Bld) [Entitic vol] 10.5 fL Normal 9.5-13.5 [facility] Comment on above: Performed By: #### C BC #### [facility] [address] [address] [address] Jerry Samuel PLT 207 103/ul Normal 150-450 [facility] Comment on above: Performed By: #### C BC #### [facility] [address] [address] [address] Jerry Samuel RBC 3.99 106/ul Critically low 4.20-5.40 [facility] Comment on above: Performed By: #### C BC #### [facility] [address] [place] [address] Dr. Jerry Samuel WBC 6.7 103/ul Normal 4.0-11.0 [facility] Comment on above: Performed By: #### C BC #### [facility] [address] [place] [address] Dr. Jerry Samuel ER URINE PROFILEon 3 Bilirubin Ql (U) Negative Normal NEGATIVE [facility] Comment on above: Performed By: #### E RUR #### [facility] [address] [place] [address] Dr. Jerry Samuel Clarity (U) CLEAR Normal CLEAR [facility] Comment on above: Performed By: #### E RUR #### [facility] [address] [place] [address] Dr. Jerry Samuel Color (U) LT. YELLOW Normal YELLOW [facility] Comment on above: Performed By: #### E RUR #### [facility] [address] [place] [address] Dr. Jerry Samuel ERUAHAnahy A micrscopic examina tion will be performed if indicated. Normal [facility] Comment on above: Performed By: #### E RUR #### [facility] [address] [place] [address] Dr. Jerry Samuel Glucose Ql (U) Negative Normal NEGATIVE [facility] Comment on above: Performed By: #### E RUR #### [facility] [address] [place] [address] Dr. Jerry Samuel Hemoglobin Ql (U) Negative Normal NEGATIVE [facility] Comment on above: Performed By: #### E RUR #### [facility] [address] [place] [address] Dr. Jerry Samuel Ketones Ql (U) Negative Normal NEGATIVE [facility] Comment on above: Performed By: #### E RUR #### [facility] [address] [place] [address] Dr. Jerry Samuel LEUKOCYTES Negative Normal NEGATIVE [facility] Comment on above: Performed By: #### E RUR #### [facility] [address] [place] [address] Dr. Jerry Samuel Nitrite Ql (U) Negative Normal NEGATIVE [facility] Comment on above: Performed By: #### E RUR #### [facility] [address] [place] [address] Dr. Jerry Samuel pH (U) 6.5 [pH] Normal 5-9 [facility] Comment on above: Performed By: #### E RUR #### [facility] [address] [place] [address] Dr. Jerry Samuel SPEC GRAVITY <=1.005 Abnormal 1.005-<=1.025 [facility] Comment on above: Performed By: #### E RUR #### [facility] [address] [place] [address] Dr. Jerry Samuel UA PROTEIN Negative Normal NEGATIVE/ TRACE [facility] Comment on above: Performed By: #### E RUR #### [facility] [address] [place] [address] Dr. Jerry Samuel UR MICRO IND NOT INDICATED Normal [facility] Comment on above: Performed By: #### E RUR #### [facility] [address] [place] [address] Dr. Jerry Samuel Urobilinogen Qn (U) 0.2 {Charlette'U}/dL Normal 0.2 - 1. 0 [facility] Comment on above: Performed By: #### E RUR #### [facility] [address] [place] [address] Dr. Jerry Samuel PROF 14(COMP METB)on 023 Albumin [Mass/Vol] 3.4 g/dL Normal 3.4-5.0 [facility] Comment on above: Performed By: #### R PRQ #### [facility] [address] [place] [address] Dr. Jerry Samuel Albumin/Globulin [Mass ratio] 1.0 {ratio} Normal [facility] Comment on above: Performed By: #### R PRQ #### [facility] [address] [place], [place] [id number] Dr. Jerry Samuel ALP [Catalytic activity/Vol] 33 U/L Critically low 46-116 [facility] Comment on above: Performed By: #### R PRQ #### [facility] [address] [place] [address] Dr. Jerry Samuel ALT [Catalytic activity/Vol] 16 U/L Normal 14-59 [facility] Comment on above: Performed By: #### R PRQ #### [facility] [address] [place] [address] Dr. Jerry Samuel Anion gap [Moles/Vol] 8.5 mmol/L Normal [facility] Comment on above: Performed By: #### R PRQ #### [facility] [address] [place] [address] Dr. Jerry Samuel AST [Catalytic activity/Vol] 12 U/L Critically low 15-37 [facility] Comment on above: Performed By: #### R PRQ #### [facility] [address] [place] [address] Dr. Jerry Samuel Bilirubin [Mass/Vol] 0.3 mg/dL Normal 0.2-1.0 [facility] Comment on above: Performed By: #### R PRQ #### [facility] [address] [place] [address] Dr. Jerry Samuel Calcium [Mass/Vol] 9.2 mg/dL Normal 8.5-10.1 [facility] Comment on above: Performed By: #### R PRQ #### [facility] [address] [place] [address] Dr. Jerry Samuel Chloride [Moles/Vol] 105 mmol/L Normal 98-107 [facility] Comment on above: Performed By: #### R PRQ #### [facility] [address] [place] [address] Dr. Jerry Samuel CO2 [Moles/Vol] 25.0 mmol/L Normal 21.0-32.0 [facility] Comment on above: Performed By: #### R PRQ #### [facility] [address] [place] [address] Dr. Jerry Samuel Creatinine [Mass/Vol] 0.40 mg/dL Critically low 0.55-1.02 [facility] Comment on above: Performed By: #### R PRQ #### [facility] [address] [address] [address] Jerry Samuel EGFR-AF ECUADOREAN >60 Normal >=60 [facility] Comment on above: Performed By: #### R PRQ #### [facility] [address] [address] [address] Jerry Samuel EGFR-NON AF ECUADOREAN >60 Normal >=60 [facility] Comment on above: Performed By: #### R PRQ #### [facility] [address] [address] [address] Jerry Samuel Globulin (S) [Mass/Vol] 3.5 g/dL Normal [facility] Comment on above: Performed By: #### R PRQ #### [facility] [address] [place] [address] Dr. Jerry Samuel Glucose [Mass/Vol] 94 mg/dL Normal 74-106 [facility] Comment on above: Performed By: #### R PRQ #### [facility] [address] [address] [address] Jerry Samuel Potassium [Moles/Vol] 3.5 mmol/L Normal 3.5-5.1 [facility] Comment on above: Performed By: #### R PRQ #### [facility] [address] [place] [address] Dr. Jerry Samuel Protein [Mass/Vol] 6.9 g/dL Normal 6.4-8.2 [facility] Comment on above: Performed By: #### R PRQ #### [facility] [address] [address] [address] Jerry Samuel Sodium [Moles/Vol] 135 mmol/L Critically low 136-145 [facility] Comment on above: Performed By: #### R PRQ #### [facility] [address] [place] [address] Dr. Jerry Samuel Urea nitrogen [Mass/Vol] 6.0 mg/dL Critically low 7.0-18.0 [facility] Comment on above: Performed By: #### R PRQ #### [facility] [address] [place] [address] Dr. Jerry Samuel Urea nitrogen/Creatinine [Mass ratio] 15.0 mg/mg Normal [facility] Comment on above: Performed By: #### R PRQ #### [facility] [address] [place] [address] Dr. Jerry Samuel DOROTEO BOX TEST PT SEND OUTo n 05-02-2022 SENT TO REF LAB 05/02/2022 Normal [facility] Comment on above: Performed By: #### N BOX #### [facility] [address] [place] [address] Dr. Jerry Samuel HEP B SURFACE ANTIGEN SCREEN on 04-05-2022 HBsAg Screen Negative Normal Negative [facility] Comment on above: Performed By: #### N BOX #### [facility] [address] [place] [address] Dr. Jerry Samuel HEPATITIS C VIRUS AB W/ REFL EX QUANTon 04-05-2022 HCV AB <0.1 Normal 0.0-0.9 [facility] Comment on above: Performed By: #### H CVPCRR #### [facility] [address] [place] [address] Dr. Jerry Samuel Interpretation: Comment Normal [facility] Comment on above: Result Comment: Nega tive Not infected with HCV, unless recent infection is suspected or other evidence exists to indicate HCV infection. Performed By: #### H CVPCRR #### [facility] [address] [place] [address] Dr. Jerry Samuel HIV 1 AND 2 WITH REFLEXon HIV Screen 4th Generation wRfx Non-Reactive Normal Non Reactive [facility] Comment on above: Result Comment: HIV Negative HIV-1/HIV-2 antibodies and HIV-1 p24 antigen were NOT detected. There is no laboratory evidence of HIV infection. Performed By: #### R PRQ #### [facility] [address] [place] [address] Dr. Jerry Samuel RPR QUANTon 04-05-2022 Rapid Plasma Reagin, Quant Non-Reactive Normal NonRea<1:1 [facility] Comment on above: Result Comment: Nathaly wilkes Note: This test does not meet current guidelines for screening and diagnosis of syphilis. This test is intended for following treatment response in patients being treated for syphilis infection. To screen for syphilis infection, a reflex cascade that includes both RPR and a treponema-specific assay should be utilized, such as Treponema pallidum (Syphilis) Screening [place] (545836) or Rapid Plasma Reagin (RPR) Test With Reflex to Quantitative RPR and Confirmatory Treponema pallidum Antibodies (884005). Performed By: #### R PRQ #### [facility] [address] [place] [address] Dr. Jerry Samuel RUBELLA AB IGGon 04-05-2022 Rubella Antibodies, IgG 1.97 index Normal Immune >0.99 [facility] Comment on above: Result Comment: Non- immune <0.90 Equivocal 0.90 - 0.99 Immune >0.99 Performed By: #### R UBIGG #### [facility] [address] [place] [address] Dr. Jerry Samuel CBC AUTO DIFFon 04-04-2022 BASO # 0.0 103/ul Normal 0.0-0.1 [facility] Comment on above: Performed By: #### R PRQ #### [facility] [address] [place] [address] Dr. Jerry Samuel Basophils/100 WBC (Bld) 0.3 % Normal 0.2-2.0 [facility] Comment on above: Performed By: #### R PRQ #### [facility] [address] [place] [address] Dr. Jerry Samuel EO # 0.1 103/ul Normal 0.0-0.7 [facility] Comment on above: Performed By: #### R PRQ #### [facility] [address] [place] [address] Dr. Jerry Samuel Eosinophils/100 WBC (Bld) 0.7 % Critically low 0.9-7.0 [facility] Comment on above: Performed By: #### R PRQ #### [facility] [address] [place] [address] Dr. Jerry Samuel Erythrocyte distribution width (RBC) [Ratio] 12.3 % Normal 11.0-15.0 [facility] Comment on above: Performed By: #### R PRQ #### [facility] [address] [place] [address] Dr. Jerry Samuel Hematocrit (Bld) [Volume fraction] 35.1 % Critically low 36.0-48.0 [facility] Comment on above: Performed By: #### R PRQ #### [facility] [address] [place] [address] Dr. Jerry Samuel Hemoglobin (Bld) [Mass/Vol] 11.8 g/dL Critically low 12.0-16.0 [facility] Comment on above: Performed By: #### R PRQ #### [facility] [address] [place] [address] Dr. Jerry Samuel IG # 0.02 10e3/ul Normal 0.00-0.03 [facility] Comment on above: Performed By: #### R PRQ #### [facility] [address] [place] [address] Dr. Jerry Samuel IG % 0.3 % Normal 0.0-0.5 [facility] Comment on above: Performed By: #### R PRQ #### [facility] [address] [place] [address] Dr. Jerry Samuel LYMPH # 2.0 103/ul Normal 1.2-3.8 [facility] Comment on above: Performed By: #### R PRQ #### [facility] [address] [place] [address] Dr. Jerry Samuel Lymphocytes/100 WBC (Bld) 26.7 % Normal 20.5-60.0 [facility] Comment on above: Performed By: #### R PRQ #### [facility] [address] [place] [address] Dr. Jerry Samuel MANUAL DIFF REQ NO Normal [facility] Comment on above: Performed By: #### R PRQ #### [facility] [address] [place] [address] Dr. Jerry Samuel MCH (RBC) [Entitic mass] 29.0 pg Normal 26.7-34.0 [facility] Comment on above: Performed By: #### R PRQ #### [facility] [address] [place] [address] Dr. Jerry Samuel MCHC (RBC) [Mass/Vol] 33.6 g/dL Normal 29.9-35.2 [facility] Comment on above: Performed By: #### R PRQ #### [facility] [address] [place] [address] Dr. Jerry Samuel MCV (RBC) [Entitic vol] 86.2 fL Normal 81.0-99.0 [facility] Comment on above: Performed By: #### R PRQ #### [facility] [address] [place] [address] Dr. Jerry Samuel MONO # 0.5 103/ul Normal 0.3-0.8 [facility] Comment on above: Performed By: #### R PRQ #### [facility] [address] [place] [address] Dr. Jerry Samuel Monocytes/100 WBC (Bld) 6.7 % Normal 1.7-12.0 [facility] Comment on above: Performed By: #### R PRQ #### [facility] [address] [place] [address] Dr. Jerry Samuel NEUT # 4.9 103/ul Normal 1.4-6.5 [facility] Comment on above: Performed By: #### R PRQ #### [facility] [address] [place] [address] Dr. Jerry Samuel Neutrophils/100 WBC (Bld) 65.3 % Normal 43.0-75.0 [facility] Comment on above: Performed By: #### R PRQ #### [facility] [address] [place] [address] Dr. Jerry Samuel Platelet mean volume (Bld) [Entitic vol] 10.0 fL Normal 9.5-13.5 [facility] Comment on above: Performed By: #### R PRQ #### [facility] [address] [address] [address] Jerry Samuel PLT 218 103/ul Normal 150-450 [facility] Comment on above: Performed By: #### R PRQ #### [facility] [address] [address] [address] Jerry Samuel RBC 4.07 106/ul Critically low 4.20-5.40 [facility] Comment on above: Performed By: #### R PRQ #### [facility] [address] [address] [address] Jerry Samuel WBC 7.5 103/ul Normal 4.0-11.0 [facility] Comment on above: Performed By: #### R PRQ #### [facility] [address] [place] [address] Dr. Jerry Samuel CULTURE URINEon 04-04-2022 CULTURE URINE Culture Observations : NO GROWTH. Normal [facility] Comment on above: Performed By: #### N BOX #### [facility] [address] [place] [address] Dr. Jerry Samuel GLYCOHEMOGLOBIN A1Con 2021 ADA RECOMMENDATION SEE BELOW Normal [facility] Comment on above: Result Comment: ADA RECOMMENDED LIMIT 4.0 - 6.0 ADA THERAPEUTIC TARGET < 7.0 ACTION SUGGESTED > 7.0 Performed By: #### N BOX #### [facility] [address] [place] [address] Dr. Jerry Samuel Glucose [Mass/Vol] 97 mg/dL Normal [facility] Comment on above: Performed By: #### N BOX #### [facility] [address] [address] [address] Jerry Samuel HbA1c (Bld) [Mass fraction] 5.0 % Normal 4.5-6.2 [facility] Comment on above: Performed By: #### N BOX #### [facility] [address] [place] [address] Dr. Jerry Samuel TYPE AND SCREENon 04-04-2022 TYPE AND SCREEN Negative Normal [facility] Comment on above: Performed By: #### N BOX #### [facility] [address] [place] [address] Dr. Jerry Samuel US PREG TVon 04-04-2022 [...] EDITH WILLIS Date: 2022-04-04 16:13 Normal [facility] PREG QUANT HCGon 03-07-2022 HCG QUANT 2201 mIU/mL Normal [facility] Comment on above: Performed By: #### R PRQ #### [facility] [address] [place] [address] Dr. Jerry Samuel HCG RANGE SEE BELOW Normal [facility] Comment on above: Result Comment: 5-50 0.2-1 WEEK 50-500 1-2 WEEKS 100-5,000 2-3 WEEKS 500-10,000 3-4 WEEKS 1,000-50,000 4-5 WEEKS 10,000-100,000 5-6 WEEKS 15,000-200,000 6-8 WEEKS 10,000-100,000 2-3 MONTHS Performed By: #### R PRQ #### [facility] [address] [place] [address] Dr. Jerry Samuel PREG QUANT HCGon 03-05-2022 HCG QUANT 820 mIU/mL Normal [facility] Comment on above: Performed By: #### R PRQ #### [facility] [address] [place] [address] Dr. Jerry Samuel HCG RANGE SEE BELOW Normal [facility] Comment on above: Result Comment: 5-50 0.2-1 WEEK 50-500 1-2 WEEKS 100-5,000 2-3 WEEKS 500-10,000 3-4 WEEKS 1,000-50,000 4-5 WEEKS 10,000-100,000 5-6 WEEKS 15,000-200,000 6-8 WEEKS 10,000-100,000 2-3 MONTHS Performed By: #### R PRQ #### [facility] [address] [place] [address] Dr. Jerry Samuel PAP ACOG PANEL 2: 21 to 29on 02-21-2022 . . Normal [facility] Comment on above: Performed By: #### R PRQ #### [facility] [address] [place] [address] Dr. Jerry Samuel Age Gdln ACOG Testing - [facility] Comment on above: Performed By: #### R PRQ #### [facility] [address] [place] [address] Dr. Jerry Samuel DIAGNOSIS: Comment [facility] Comment on above: Result Comment: NEGA TIVE FOR INTRAEPITHELIAL LESION OR MALIGNANCY. SPECIMEN REPROCESSED FOR INTERPRETATION. Performed By: #### R PRQ #### [facility] [address] [place] [address] Dr. Jerry Samuel Methodology: Comment [facility] Comment on above: Result Comment: This liquid based ThinPrep(R) pap test was screened with the use of an image guided system. Performed By: #### R PRQ #### [facility] [address] [place] [address] Dr. Jerry Samuel Note: Comment [facility] Comment on above: Result Comment: The Pap smear is a screening test designed to aid in the detection of premalignant and malignant conditions of the uterine cervix. It is not a diagnostic procedure and should not be used as the sole means of detecting cervical cancer. Both false-positive and false-negative reports do occur. . Performed By: #### R PRQ #### [facility] [address] [place] [address] Dr. Jerry Samuel Performed by: Comment [facility] Comment on above: Result Comment: Anders Roman, Mop Handle Assembler (ASCP) Performed By: #### R PRQ #### [facility] [address] [place] [address] Dr. Jerry Samuel Reflex Criteria: Comment Normal [facility] Comment on above: Result Comment: The HPV DNA reflex criteria were not met with this specimen result therefore, no HPV testing was performed. . Performed By: #### R PRQ #### [facility] [address] [place] [address] Dr. Jerry Samuel Specimen adequacy: Comment Normal [facility] Comment on above: Result Comment: Sati sfactory for evaluation. Endocervical and/or squamous metaplastic cells (endocervical component) are present. Performed By: #### R PRQ #### [facility] [address] [place] [address] Dr. Jerry Samuel US PELVIS AND TRANSVAGon [...] by: EDITH WILLIS Date: 2022-02-13 14:34 Normal [facility] CBC AUTO DIFFon 02-12-2022 BASO # 0.0 103/ul Normal 0.0-0.1 [facility] Comment on above: Performed By: #### C BC #### [facility] [address] [place] [address] Dr. Jerry Samuel Basophils/100 WBC (Bld) 0.6 % Normal 0.2-2.0 [facility] Comment on above: Performed By: #### C BC #### [facility] [address] [place] [address] Dr. Jerry Samuel EO # 0.1 103/ul Normal 0.0-0.7 [facility] Comment on above: Performed By: #### C BC #### [facility] [address] [place] [address] Dr. Jerry Samuel Eosinophils/100 WBC (Bld) 1.2 % Normal 0.9-7.0 [facility] Comment on above: Performed By: #### C BC #### [facility] [address] [place] [address] Dr. Jerry Samuel Erythrocyte distribution width (RBC) [Ratio] 11.9 % Normal 11.0-15.0 [facility] Comment on above: Performed By: #### C BC #### [facility] [address] [place] [address] Dr. Jerry Samuel Hematocrit (Bld) [Volume fraction] 39.1 % Normal 36.0-48.0 [facility] Comment on above: Performed By: #### C BC #### [facility] [address] [place] [address] Dr. Jerry Samuel Hemoglobin (Bld) [Mass/Vol] 13.0 g/dL Normal 12.0-16.0 [facility] Comment on above: Performed By: #### C BC #### [facility] [address] [place] [address] Dr. Jerry Samuel IG # 0.01 10e3/ul Normal 0.00-0.03 [facility] Comment on above: Performed By: #### C BC #### [facility] [address] [place] [address] Dr. Jerry Samuel IG % 0.2 % Normal 0.0-0.5 [facility] Comment on above: Performed By: #### C BC #### [facility] [address] [place] [address] Dr. Jerry Samuel LYMPH # 2.4 103/ul Normal 1.2-3.8 [facility] Comment on above: Performed By: #### C BC #### [facility] [address] [place] [address] Dr. Jerry Samuel Lymphocytes/100 WBC (Bld) 37.7 % Normal 20.5-60.0 [facility] Comment on above: Performed By: #### C BC #### [facility] [address] [place] [address] Dr. Jerry Samuel MANUAL DIFF REQ NO Normal [facility] Comment on above: Performed By: #### C BC #### [facility] [address] [place] [address] Dr. Jerry Samuel MCH (RBC) [Entitic mass] 29.2 pg Normal 26.7-34.0 [facility] Comment on above: Performed By: #### C BC #### [facility] [address] [place] [address] Dr. Jerry Samuel MCHC (RBC) [Mass/Vol] 33.2 g/dL Normal 29.9-35.2 [facility] Comment on above: Performed By: #### C BC #### [facility] [address] [place] [address] Dr. Jerry Samuel MCV (RBC) [Entitic vol] 87.9 fL Normal 81.0-99.0 [facility] Comment on above: Performed By: #### C BC #### [facility] [address] [place] [address] Dr. Jerry Samuel MONO # 0.4 103/ul Normal 0.3-0.8 [facility] Comment on above: Performed By: #### C BC #### [facility] [address] [place] [address] Dr. Jerry Samuel Monocytes/100 WBC (Bld) 5.9 % Normal 1.7-12.0 [facility] Comment on above: Performed By: #### C BC #### [facility] [address] [place] [address] Dr. Jerry Samuel NEUT # 3.5 103/ul Normal 1.4-6.5 [facility] Comment on above: Performed By: #### C BC #### [facility] [address] [place] [address] Dr. Jerry Samuel Neutrophils/100 WBC (Bld) 54.4 % Normal 43.0-75.0 [facility] Comment on above: Performed By: #### C BC #### [facility] [address] [place] [address] Dr. Jerry Samuel Platelet mean volume (Bld) [Entitic vol] 9.9 fL Normal 9.5-13.5 [facility] Comment on above: Performed By: #### C BC #### [facility] [address] [place] [address] Dr. Jerry Samuel PLT 229 103/ul Normal 150-450 [facility] Comment on above: Performed By: #### C BC #### [facility] [address] [place] [address] Dr. Jerry Samuel RBC 4.45 106/ul Normal 4.20-5.40 [facility] Comment on above: Performed By: #### C BC #### [facility] [address] [place] [address] Dr. Jerry Samuel WBC 6.5 103/ul Normal 4.0-11.0 [facility] Comment on above: Performed By: #### C BC #### [facility] [address] [place] [address] Dr. Jerry Samuel FREE T4on 02-12-2022 Free T4 [Mass/Vol] 0.99 ng/dL Normal 0.76-1.46 [facility] Comment on above: Performed By: #### R PRQ #### [facility] [address] [place] [address] Dr. Jerry Samuel GLYCOHEMOGLOBIN A1Con 2021 ADA RECOMMENDATION SEE BELOW Normal [facility] Comment on above: Result Comment: ADA RECOMMENDED LIMIT 4.0 - 6.0 ADA THERAPEUTIC TARGET < 7.0 ACTION SUGGESTED > 7.0 Performed By: #### R PRQ #### [facility] [address] [place] [address] Dr. Jerry Samuel Glucose [Mass/Vol] 103 mg/dL Normal [facility] Comment on above: Performed By: #### R PRQ #### [facility] [address] [place] [address] Dr. Jerry Samuel HbA1c (Bld) [Mass fraction] 5.2 % Normal 4.5-6.2 [facility] Comment on above: Performed By: #### R PRQ #### [facility] [address] [place] [address] Dr. Jerry Samuel PROTIMEon 02-12-2022 INR Coag (PPP) [Relative time] 1.00 {INR} Normal [facility] Comment on above: Performed By: #### N BOX #### [facility] [address] [place] [address] Dr. Jerry Samuel INR GUIDELINES SEE BELOW Normal [facility] Comment on above: Result Comment: SACHA RED INR: 2.0 - 3.0 CONDITIONS NOT LISTED BELOW 2.5 - 3.5 FOR PROSTHETIC HEART VALVE REPLACEMENT 2.5 - 3.5 RECURRENT THROMBOSIS Performed By: #### N BOX #### [facility] [address] [place] [address] Dr. Jerry Samuel PT Coag (PPP) [Time] 10.8 s Normal 9.0-11.6 [facility] Comment on above: Performed By: #### N BOX #### [facility] [address] [place] [address] Dr. Jerry Samuel PTTon 02-12-2022 aPTT Coag (Bld) [Time] 27.8 s Normal 22.3-36.2 [facility] Comment on above: Performed By: #### N BOX #### [facility] [address] [place] [address] Dr. Jerry Samuel TSHon 02-12-2022 TSH 1.741 uIU/mL Normal 0.358-3.740 [facility] Comment on above: Performed By: #### T SH #### [facility] [address] [place] [address] Dr. Jerry Samuel Outside [facility] 11-20-2021 Outside Records [id number]#1.00OTG TIFF Normal [facility] Outside [facility] 11-16-2021 Outside Records [id number]#1.00OT GTIFF Normal [facility] HCG,Urineon 02-22-2021 Beta HCG ( test) Ql (U) Negative Normal [facility] Comment on above: Result Comment: PERF ORMED BY: [place] [address] PATHOLOGIST MOTORMAN/WOMAN PRIYA WHITE M.D. Performed By: #### U HCG #### [id number] [facility] 02-22-2021 L ---- Specimen: [id number] Received: 02/23/21 Status: DRE Elizabeth Num: [id number] Spec Type: Surgical Subm Dr: Edith Cgale Jr, Tissues: A Duodenum - Biopsy (DUODENUM BX) B Stomach - Biopsy/Polyp (ANTRUM BX) C Colon Biopsy (RANDOM COLON) Procedures: HE Stain/6, Gross/Micro L4/3 Patient Age/Sex Location Account Attending Physician Will Shay Jose Luis / [id number] Edith Cagle Jr, DO SPEC NUM: [id number] RECD: 02/23/21 STATUS: DRE ELIZABETH NUM: [id number] CASIMIRO: 02/22/21- DR: Edith Cagle Jr, DO ENTERED: 02/23/[address]: ANITA TYPE: Surgical DEPT: S ENTERED BY: [id number] RECV BY: [id number] ORDERED: HE Stain/6, Gross/Micro L4/3 ORDERED: HE [...] in one cassette labeled B1. (SM/YJ) Specimen: [id number] Received: 02/23/21 Status: DRE Elizabeth Num: [id number] Spec Type: Surgical Subm Dr: Edith Cagle Jr, DO Tissues: A Duodenum - Biopsy (DUODENUM BX) B Stomach - Biopsy/Polyp (ANTRUM BX) C Colon Biopsy (RANDOM COLON) Procedures: HE Stain/6, Gross/Micro L4/3 Patient: LauritaNenomaria e Amaya [id number] (Continued) Specimen: Received: 02/23/21 (Continued) Gross Description (Continued) Signed (signature on file) Gail Crockett MD 02/26/21 1601 Specimen: [id number] Received: 02/23/21 Status: DRE Elizabeth Num: [id number] Spec Type: Surgical Subm Dr: Edith Cagle Jr, DO Tissues: A Duodenum - Biopsy (DUODENUM BX) B Stomach - Biopsy/Polyp (ANTRUM BX) C Colon Biopsy (RANDOM COLON) Procedures: HE Stain/6, Gross/Micro L4/3 Patient: Will Shay [id number] (Continued) Specimen: [id number] Received: 02/23/21 (Continued) Gross Description (Continued) C. Received in formalin labeled with the patient's name, number and random colon rule out microscopic colitis are 2 marsh tissue fragments, 0.3 cm and 0.9 cm. Entirely submitted in one cassette labeled C1. (/) Microscopic Description A. Two glass slides with [...] characteristics were determined by the Laboratory [facility]. Immunohistochemistry assays have not been validated on decalcified tissue. Results should be interpreted with caution given the possibility of false negative results on decalcified specimens. They have not been cleared by the [place] Food and Drug Administration. The FDA has determined that such clearance or approval is not necessary. CPT Codes 98851?3, 13101 (more content not included)... Normal [facility] [place]19 [facility] [place] [facility] [place] SARS-CoV-2 (COVID-19) RNA ELINOR+probe Ql (Unsp spec) Negative Normal Negative [facility] Comment on above: Order Comment: Healt hcare Worker?: N Result Comment: Testing for SARS-CoV-2 by RT-PCR This test was developed and its performance characteristics determined by [employer] and validated at the [facility]. This test has not been FDA cleared [...] is terminated or revoked sooner. PERFORMED BY: [facility] [address] PATHOLOGIST MOTORMAN/WOMAN PRIYA WHITE M.D. Performed By: #### C OVID 19 [facility] [place] #### [address] Vital Signs Date Time Vital Sign Value Performing Clinician Facility 03-26-2023 13:45-0500 Body height 164.47 cm Ben Rose Other [facility] Other 03-26-2023 13:45-0500 Body mass index (BMI) [Ratio] 29.6 kg/m2 Ben Rose Other [facility] Other 03-26-2023 13:45-0500 Body weight 80.06 kg Ben Rose Other [facility] Other 03-26-2023 13:45-0500 Diastolic blood pressure 74 mm[Hg] Ben Rose Other [facility] Other 03-26-2023 13:45-0500 Systolic blood pressure 120 mm[Hg] Ben Rose Other [facility] Other 06-14-2022 17:07-0500 Body weight 79.[address] EDDIE VALIENTE . [facility] Comment on above: Performed By: #### RPR[facility] #### [facility] [address] [place] [address] Dr. Jerry Samuel 03-08-2022 11:15-0500 Body height 164.47 cm Ben Rose Other [facility] Other 03-08-2022 11:15-0500 Body mass index (BMI) [Ratio] 29.01 kg/m2 Ben Rose Other [facility] Other 03-08-2022 11:15-0500 Body weight 78.47 kg Ben Rose Other [facility] Other 03-08-2022 11:15-0500 Diastolic blood pressure 73 mm[Hg] Ben Rose Other [facility] Other 03-08-2022 11:15-0500 Systolic blood pressure 113 mm[Hg] Ben Rose Other [facility] Other Encounters Encounter Date Encounter Type Care Provider Facility Start: 03-27-2023 End: 03-27-2023 ambulatory GENTRY KIM Not Available Start: 03-26-2023 End: 03-26-2023 ambulatory Ben Rose Other [facility] Other Start: 03-26-2023 Patient encounter procedure [facility] Start: 03-05-2023 End: 03-05-2023 ambulatory EDDIE VALIENTE Not Available Start: 01-24-2023 End: 01-24-2023 ambulatory Ben Rose Other [facility] Other Start: 01-24-2023 Telephone encounter Ben FORD [...] 03-08-2022 End: 03-08-2022 ambulatory Ben Rose Other [facility] Other Start: 03-08-2022 Patient encounter procedure Ben [...] 11-06-2021 End: 11-06-2021 ambulatory [place] A Mikael HELIUM ARC WELDER-C [facility] Start: 11-05-2021 End: 11-06-2021 ambulatory [place] A Mikael HELIUM AR[facility] WELDER-C Facility[facility] Immunizations Immunization Date Immunization Notes Care Provider Michael albright 11-08-2014 human papilloma viru s vaccine, quadrivalent Ben Rose Other [facility] Other Payers Date Payer Category Payer Unknown [id number] 2021 Unknown [id number] 1996 Unknown [id number] 2.16.84 0.1.374543.3.579.2.718 1996 Unknown [id number] 2.16.8 40.1.148838.3.579.2.718 1996 Unknown [id number] 2.16.84 0.1.385921.3.579.2.593 1996 Unknown [id number] 2.16.84 0.1.995731.3.579.2.593 1996 Unknown [id number] 2.16.84 0.1.702334.3.579.2.593 1996 Unknown [id number] 2.16.84 0.1.877799.3.579.2.593 1996 Unknown [id number] 2.16.84 0.1.336290.3.579.2.593 1996 Unknown [id number] 2.16.84 0.1.643994.3.579.2.593 1996 Unknown [id number] 2.16.84 0.1.174708.3.579.2.593 1996 Unknown [id number] 2.16.84 0.1.927177.3.579.2.593 1996 Unknown [id number] 2.16.84 0.1.448618.3.579.2.593 1996 Unknown [id number] 2.16.84 0.1.250893.3.579.2.593 1996 Unknown [id number] 2.16.84 0.1.170277.3.579.2.593 1996 Unknown [id number] 2.16.84 0.1.715219.3.579.2.593 1996 Unknown [id number] 2.16.84 0.1.905639.3.579.2.593 1996 Unknown [id number] 2.16.84 0.1.117207.3.579.2.593 1996 Unknown [id number] 2.16.84 0.1.723355.3.579.2.593 1996 Unknown [id number] 2.16.840 .1.966744.3.579.2.1259 1996 Unknown [id number] 2.16.840 .1.430014.3.579.2.1259 1959 Self-pay 1959 Unknown [id number] 2.16. 840.1.106557.19 1959 Unknown [id number] 2. 16.840.1.682828.19 1959 Unknown [id number] 1959 Unknown [id number] Unknown [id number] 2.16.84 0.1.246695.3.579.2.593 Social History Date Type Detail Facility Unknown if ever smoked [facility] Other Sex Assigned At [facility] Assigned At [facility] Other Evaluation note 03-26-2023 Note Date & [...] call office if she has no improvement [facility] Other Evaluation note 01-24-2023 Note Date & Type Note Facility 01-24-2023 Evaluation note Encounter Date Diagnosis Assessment Notes Jan, Epigastric burning sensation (ICD-10 - R10.13) [facility] Other Evaluation note 03-08-2022 Note Date & [...] DAILY CONTINUE LEVSIN NEEDED RTO 1 YR [facility] Other History general Narrative - Reported Note Date & Type Note Facility History general Narrative - Reported Type Medical History scoliosis Medical History hx of mono Surgical History [place] teeth x4 [facility] Other History general Narrative - Reported Note Date & Type Note Facility History general Narrative - Reported Type Medical History scoliosis Medical History hx of mono Surgical History [place] teeth x4 Surgical History C [facility] Other Summary Purpose Family History No Family History Records FoundNo Family History Records FoundNo Family History Records FoundNo Family History Records Found Advance Directives No Advanced Directives Records FoundNo Advanced Directives Records FoundNo Advanced Directives Records FoundNo Advanced Directives Records Found Additional Source Comments INFORMATION SOURCE (unrecogn ized section and content) DATE CREATED AUTHOR 02/27/2021 [facility] DATE CREATED AUTHOR AUTHOR'S ORGANIZ ATION 07/24/2022 [facility] DATE CREATED AUTHOR AUTHOR'S ORGANIZ ATION 08/08/2022 [facility] DATE CREATED AUTHOR AUTHOR'S ORGANIZ ATION 03/28/2023 [facility] EPIC REASON FOR VISIT (unrecogniz ed [...] BE BASED ON THE PRIMARY CLINICAL RECORDS. [employer] provides no warranty or guarantee of the accuracy or completeness of information in this document.
[2023-11-10 16:57] LABS: HCG Quantitative 116 mIU/mL
== END 2023-11-10 16:20 | disposition home or self-care (01) ==
PROVIDERS: Visit Provider Obstetrics & Gynecology
DX: N92.6 Irregular menstruation, unspecified (principal)
CPT/HCPCS: 36415; 84702

== ENCOUNTER 2023-11-12 16:20 | Outpatient (OUT) | payer BC, SELFPAY ==
--- OUTSIDE RECORDS SUMMARY | 2023-11-12 16:26 | XMS_ITS | CCD ---
Author Organization [facility] CliniSynv Care Team Providers Care Waste Collector Name Role Phone Ben Rose Unavailable Mikael ARTIST COLOR SEPARATION-C, Angeles A Admitting Unavailable Mikael ARTIST COLOR SEPARATION-C, Angeles A Attending Unavailable Mikael ARTIST COLOR SEPARATION-C, Angeles A Primary Care Unavailable Mikael ARTIST COLOR SEPARATION-C, Angeles A Attending Unavailable Mikael ARTIST COLOR SEPARATION-C, Angeles A Primary Care Unavailable ROCCO ., [...] Unavailable ROCCO ., DR MORGAN Attending Unavailable [place], DR EDITH Corey Consulting Unavailable ROCCO ., DR MORGAN Admitting Unavailable ROCCO ., DR MORGAN Consulting Unavailable ROCCO ., DR MORGAN Consulting Unavailable ROCCO ., DR MORGAN Admitting Unavailable REQUEST, DR NONE LISTED Primary Care Unavaila ble ROCCO ., DR MORGAN Attending Unavailable MIKAEL, ANGELES Primary Care Unavailable ROCCO ., DR MORGAN Attending Unavailable [place], DR EDITH Corey Consulting Unavailable ROCCO ., DR MORGAN Admitting Unavailable ROCCO ., DR MROGAN Consulting Unavailable MIKAEL, ANGELES Primary Care Unavailable [...] Care Unavaila ble ROCCO, EDDIE Attending Unavailable GETNRY KIM Attending Unavailable Allergies Allergy Classification Reported Allergen(s) Allergy Type Date of Onset Reaction(s) Facility (3 sources) Penicillin G Drug Allergy Unknown [facility] Other (1 source) busPIRone; Translations: [buspirone hcl] Drug Allergy [facility] Repository (1 source) Coconut extract; Translations: [coconut] Drug Allergy [facility] Repository (1 source) Penicillins; Translations: [penicillins] Propensity to adverse reactions to drug (disorder) [facility] Repository (1 source) Amoxicillin Drug Allergy [facility] Repository (1 source) Penicillin Drug Allergy [facility] Repository Medications Current Medications Medication Drug [...] 07-25-2022 BASO # 0.0 103/ul Normal 0.0-0.1 [facility] Comment on above: Performed By: #### C BC #### [facility] [address] [address] [address] Jerry Samuel Basophils/100 WBC (Bld) 0.3 % Normal 0.2-2.0 [facility] Comment on above: Performed By: #### C BC #### [facility] [address] [address] [address] Jerry Samuel EO # 0.1 103/ul Normal 0.0-0.7 [facility] Comment on above: Performed By: #### C BC #### [facility] [address] [address] [address] Jerry Samuel Eosinophils/100 WBC (Bld) 1.4 % Normal 0.9-7.0 [facility] Comment on above: Performed By: #### C BC #### [facility] [address] [address] [address] Jerry Samuel Erythrocyte distribution width (RBC) [Ratio] 13.2 % Normal 11.0-15.0 [facility] Comment on above: Performed By: #### C BC #### [facility] [address] [address] [address] Jerry Samuel Hematocrit (Bld) [Volume fraction] 33.9 % Critically low 36.0-48.0 [facility] Comment on above: Performed By: #### C BC #### [facility] [address] [address] [address] Jerry Samuel Hemoglobin (Bld) [Mass/Vol] 11.3 g/dL Critically low 12.0-16.0 [facility] Comment on above: Performed By: #### C BC #### [facility] [address] [address] [address] Jerry Samuel IG # 0.04 10e3/ul Critically high 0.00-0.03 [facility] Comment on above: Performed By: #### C BC #### [facility] [address] [place] [address] Dr. Jerry Samuel IG % 0.6 % Critically high 0.0-0.5 [facility] Comment on above: Performed By: #### C BC #### [facility] [address] [place] [address] Dr. Jerry Samuel LYMPH # 1.9 103/ul Normal 1.2-3.8 [facility] Comment on above: Performed By: #### C BC #### [facility] [address] [place] [address] Dr. Jerry Samuel Lymphocytes/100 WBC (Bld) 30.2 % Normal 20.5-60.0 [facility] Comment on above: Performed By: #### C BC #### [facility] [address] [place] [address] Dr. Jerry Samuel MANUAL DIFF REQ NO Normal [facility] Comment on above: Performed By: #### C BC #### [facility] [address] [place] [address] Dr. Jerry Samuel MCH (RBC) [Entitic mass] 29.9 pg Normal 26.7-34.0 [facility] Comment on above: Performed By: #### C BC #### [facility] [address] [place] [address] Dr. Jerry Samuel MCHC (RBC) [Mass/Vol] 33.3 g/dL Normal 29.9-35.2 [facility] Comment on above: Performed By: #### C BC #### [facility] [address] [place] [address] Dr. Jerry Samuel MCV (RBC) [Entitic vol] 89.7 fL Normal 81.0-99.0 [facility] Comment on above: Performed By: #### C BC #### [facility] [address] [place] [address] Dr. Jerry Samuel MONO # 0.5 103/ul Normal 0.3-0.8 [facility] Comment on above: Performed By: #### C BC #### [facility] [address] [place] [address] Dr. Jerry Samuel Monocytes/100 WBC (Bld) 7.2 % Normal 1.7-12.0 [facility] Comment on above: Performed By: #### C BC #### [facility] [address] [address] [address] Jerry Samuel NEUT # 3.8 103/ul Normal 1.4-6.5 [facility] Comment on above: Performed By: #### C BC #### [facility] [address] [place] [address] Dr. Jerry Samuel Neutrophils/100 WBC (Bld) 60.3 % Normal 43.0-75.0 [facility] Comment on above: Performed By: #### C BC #### [facility] [address] [place] [address] Dr. Jerry Samuel Platelet mean volume (Bld) [Entitic vol] 9.8 fL Normal 9.5-13.5 [facility] Comment on above: Performed By: #### C BC #### [facility] [address] [place] [address] Dr. Jerry Samuel PLT 188 103/ul Normal 150-450 [facility] Comment on above: Performed By: #### C BC #### [facility] [address] [place] [address] Dr. Jerry Samuel RBC 3.78 106/ul Critically low 4.20-5.40 [facility] Comment on above: Performed By: #### C BC #### [facility] [address] [place] [address] Dr. Jerry Samuel WBC 6.2 103/ul Normal 4.0-11.0 [facility] Comment on above: Performed By: #### C BC #### [facility] [address] [place] [address] Dr. Jerry Samuel GLUCOSE - 1HRon 07-25-2022 Glucose [Mass/Vol] 100 mg/dL Normal 74-106 [facility] Comment on above: Performed By: #### N BOX #### [facility] [address] [address] [address] Jerry Samuel US PREG ANATOMY SINGLEon [...] ABRIL SCANLON Date: 2022-07-02 13:45 Normal [facility] AFP MATERNAL FOR SPINA BIFID Aon 06-14-2022 AFP MoM 0.87 Normal [facility] Comment on above: Performed By: #### R PRQ #### [facility] [address] [address] [address] Jerry Samuel AFP Value 39.6 ng/mL Normal [facility] Comment on above: Performed By: #### R PRQ #### [facility] [address] [address] [address] Jerry Samuel AFP, Serum for Spina Bifida Report Normal [facility] Comment on above: Performed By: #### R PRQ #### [facility] [address] [address] [address] Jerry Samuel Comment Comment Normal [facility] Comment on above: Result Comment: Irina Petersen, Ph.D., [facility] Director . References: Available Upon Request. . Multiples Of Median Cutoffs For AFP Elevations Patrick 2.5 Black 2.8 IDD 2.0 Twins 4.5 Abbreviation Definitions IDD - Insulin Dep Diabetes OSBR - Open Spina Bifida Risk . For further inquiries contact [employer] at [phone]. . This test was developed and its performance characteristics determined by [employer]. It has not been cleared or approved by the Food and Drug Administration. Performed By: #### R PRQ #### [facility] [address] [place] [address] Dr. Jerry Samuel Gest Age Collection Date 18.9 weeks Normal [facility] Comment on above: Performed By: #### R PRQ #### [facility] [address] [address] [address] Jerry Samuel Gestat, Age Based on Ultrasound Normal [facility] Comment on above: Result Comment: 09.0 on 04/04/2022 Recalculations are not recommended when gestational dating by LMP and ultrasound are within 10 days. Performed By: #### R PRQ #### [facility] [address] [place] [address] Dr. Jerry Samuel Insulin Dep Diabetes No Normal [facility] Comment on above: Performed By: #### R PRQ #### [facility] [address] [address] [address] Jerry Samuel Interpretation Comment Normal [facility] Comment on above: Result Comment: Inte rpretation: [...] Customer Services to discuss available options. The [employer] recommends amniocentesis be offered to women age 35 and older. Performed By: #### R PRQ #### [facility] [address] [place] [address] Dr. Jerry Samuel [age] Normal [facility] Comment on above: Performed By: #### R PRQ #### [facility] [address] [place] [address] Dr. Jerry Samuel Multiple Gestation No Normal [facility] Comment on above: Performed By: #### R PRQ #### [facility] [address] [place] [address] Dr. Jerry Samuel [place] [id number] Normal [facility] Comment on above: Performed By: #### R PRQ #### [facility] [address] [place] [address] Dr. Jerry Samuel PDF . Normal [facility] Comment on above: Performed By: #### R PRQ #### [facility] [address] [place] [address] Dr. Jerry Samuel Race [facility] Comment on above: Performed By: #### R PRQ #### [facility] [address] [place] [address] Dr. Jerry Samuel Test Results: Negative Normal [facility] Comment on above: Performed By: #### R PRQ #### [facility] [address] [place] [address] Dr. Jerry Samuel CHLAMYDIA/GONOCOCCUS ELINOR (SW AB/URINE/PAPon 06-07-2022 Chlamydia trachomatis, ELINOR Negative Normal Negative [facility] Comment on above: Performed By: #### R PRQ #### [facility] [address] [place] [address] Dr. Jerry Samuel Neisseria gonorrhoeae, ELINOR Negative Normal Negative [facility] Comment on above: Performed By: #### R PRQ #### [facility] [address] [place] [address] Dr. Jerry Samuel VAGINITIS/VAGINOSIS DNA PROB Nayan 06-06-2022 Margaret species Negative Normal Negative [facility] Comment on above: Performed By: #### V AGINT #### [facility] [address] [place] [address] Dr. Jerry Samuel Gardnerella vaginalis Negative Normal Negative [facility] Comment on above: Performed By: #### V AGINT #### [facility] [address] [place] [address] Dr. Jerry Samuel Trichomonas vaginalis Negative Normal Negative [facility] Comment on above: Performed By: #### V AGINT #### [facility] [address] [place] [address] Dr. Jerry Samuel CBC AUTO DIFFon 05-26-2022 BASO # 0.0 103/ul Normal 0.0-0.1 [facility] Comment on above: Performed By: #### C BC #### [facility] [address] [place] [address] Dr. Jerry Samuel Basophils/100 WBC (Bld) 0.1 % Critically low 0.2-2.0 [facility] Comment on above: Performed By: #### C BC #### [facility] [address] [place] [address] Dr. Jerry Samuel EO # 0.0 103/ul Normal 0.0-0.7 [facility] Comment on above: Performed By: #### C BC #### [facility] [address] [place] [address] Dr. Jerry Samuel Eosinophils/100 WBC (Bld) 0.4 % Critically low 0.9-7.0 [facility] Comment on above: Performed By: #### C BC #### [facility] [address] [place] [address] Dr. Jerry Samuel Erythrocyte distribution width (RBC) [Ratio] 12.6 % Normal 11.0-15.0 [facility] Comment on above: Performed By: #### C BC #### [facility] [address] [place] [address] Dr. Jerry Samuel Hematocrit (Bld) [Volume fraction] 34.0 % Critically low 36.0-48.0 [facility] Comment on above: Performed By: #### C BC #### [facility] [address] [place] [address] Dr. Jerry Samuel Hemoglobin (Bld) [Mass/Vol] 11.6 g/dL Critically low 12.0-16.0 [facility] Comment on above: Performed By: #### C BC #### [facility] [address] [place] [address] Dr. Jerry Samuel IG # 0.03 10e3/ul Normal 0.00-0.03 [facility] Comment on above: Performed By: #### C BC #### [facility] [address] [place] [address] Dr. Jerry Samuel IG % 0.4 % Normal 0.0-0.5 [facility] Comment on above: Performed By: #### C BC #### [facility] [address] [place] [address] Dr. Jerry Samuel LYMPH # 1.1 103/ul Critically low 1.2-3.8 [facility] Comment on above: Performed By: #### C BC #### [facility] [address] [place] [address] Dr. Jerry Samuel Lymphocytes/100 WBC (Bld) 16.5 % Critically low 20.5-60.0 [facility] Comment on above: Performed By: #### C BC #### [facility] [address] [place] [address] Dr. Jerry Samuel MANUAL DIFF REQ NO Normal [facility] Comment on above: Performed By: #### C BC #### [facility] [address] [place] [address] Dr. Jerry Samuel MCH (RBC) [Entitic mass] 29.1 pg Normal 26.7-34.0 [facility] Comment on above: Performed By: #### C BC #### [facility] [address] [place] [address] Dr. Jerry Samuel MCHC (RBC) [Mass/Vol] 34.1 g/dL Normal 29.9-35.2 [facility] Comment on above: Performed By: #### C BC #### [facility] [address] [address] [address] Jerry Samuel MCV (RBC) [Entitic vol] 85.2 fL Normal 81.0-99.0 [facility] Comment on above: Performed By: #### C BC #### [facility] [address] [address] [address] Jerry Samuel MONO # 0.4 103/ul Normal 0.3-0.8 [facility] Comment on above: Performed By: #### C BC #### [facility] [address] [address] [address] Jerry Samuel Monocytes/100 WBC (Bld) 6.0 % Normal 1.7-12.0 [facility] Comment on above: Performed By: #### C BC #### [facility] [address] [address] [address] Jerry Samuel NEUT # 5.1 103/ul Normal 1.4-6.5 [facility] Comment on above: Performed By: #### C BC #### [facility] [address] [address] [address] Jerry Samuel Neutrophils/100 WBC (Bld) 76.6 % Critically high 43.0-75.0 [facility] Comment on above: Performed By: #### C BC #### [facility] [address] [address] [address] Jerry Samuel Platelet mean volume (Bld) [Entitic vol] 10.5 fL Normal 9.5-13.5 [facility] Comment on above: Performed By: #### C BC #### [facility] [address] [address] [address] Jerry Samuel PLT 207 103/ul Normal 150-450 [facility] Comment on above: Performed By: #### C BC #### [facility] [address] [address] [address] Jerry Samuel RBC 3.99 106/ul Critically low 4.20-5.40 [facility] Comment on above: Performed By: #### C BC #### [facility] [address] [place] [address] Dr. Jerry Samuel WBC 6.7 103/ul Normal 4.0-11.0 [facility] Comment on above: Performed By: #### C BC #### [facility] [address] [place] [address] Dr. Jerry Samuel ER URINE PROFILEon 3 Bilirubin Ql (U) Negative Normal NEGATIVE [facility] Comment on above: Performed By: #### E RUR #### [facility] [address] [place] [address] Dr. Jerry Samuel Clarity (U) CLEAR Normal CLEAR [facility] Comment on above: Performed By: #### E RUR #### [facility] [address] [place] [address] Dr. Jerry Samuel Color (U) LT. YELLOW Normal YELLOW [facility] Comment on above: Performed By: #### E RUR #### [facility] [address] [place] [address] Dr. Jerry Samuel ERUAHAnahy A micrscopic examina tion will be performed if indicated. Normal [facility] Comment on above: Performed By: #### E RUR #### [facility] [address] [place] [address] Dr. Jerry Samuel Glucose Ql (U) Negative Normal NEGATIVE [facility] Comment on above: Performed By: #### E RUR #### [facility] [address] [place] [address] Dr. Jerry Samuel Hemoglobin Ql (U) Negative Normal NEGATIVE [facility] Comment on above: Performed By: #### E RUR #### [facility] [address] [place] [address] Dr. Jerry Samuel Ketones Ql (U) Negative Normal NEGATIVE [facility] Comment on above: Performed By: #### E RUR #### [facility] [address] [place] [address] Dr. Jerry Samuel LEUKOCYTES Negative Normal NEGATIVE [facility] Comment on above: Performed By: #### E RUR #### [facility] [address] [place] [address] Dr. Jerry Samuel Nitrite Ql (U) Negative Normal NEGATIVE [facility] Comment on above: Performed By: #### E RUR #### [facility] [address] [place] [address] Dr. Jerry Samuel pH (U) 6.5 [pH] Normal 5-9 [facility] Comment on above: Performed By: #### E RUR #### [facility] [address] [place] [address] Dr. Jerry Samuel SPEC GRAVITY <=1.005 Abnormal 1.005-<=1.025 [facility] Comment on above: Performed By: #### E RUR #### [facility] [address] [place] [address] Dr. Jerry Samuel UA PROTEIN Negative Normal NEGATIVE/ TRACE [facility] Comment on above: Performed By: #### E RUR #### [facility] [address] [place] [address] Dr. Jerry Samuel UR MICRO IND NOT INDICATED Normal [facility] Comment on above: Performed By: #### E RUR #### [facility] [address] [place] [address] Dr. Jerry Samuel Urobilinogen Qn (U) 0.2 {Charlette'U}/dL Normal 0.2 - 1. 0 [facility] Comment on above: Performed By: #### E RUR #### [facility] [address] [place] [address] Dr. Jerry Samuel PROF 14(COMP METB)on 023 Albumin [Mass/Vol] 3.4 g/dL Normal 3.4-5.0 [facility] Comment on above: Performed By: #### R PRQ #### [facility] [address] [place] [address] Dr. Jerry Samuel Albumin/Globulin [Mass ratio] 1.0 {ratio} Normal [facility] Comment on above: Performed By: #### R PRQ #### [facility] [address] [place], [place] [id number] Dr. Jerry Samuel ALP [Catalytic activity/Vol] 33 U/L Critically low 46-116 [facility] Comment on above: Performed By: #### R PRQ #### [facility] [address] [place] [address] Dr. Jerry Samuel ALT [Catalytic activity/Vol] 16 U/L Normal 14-59 [facility] Comment on above: Performed By: #### R PRQ #### [facility] [address] [place] [address] Dr. Jerry Samuel Anion gap [Moles/Vol] 8.5 mmol/L Normal [facility] Comment on above: Performed By: #### R PRQ #### [facility] [address] [place] [address] Dr. Jerry Samuel AST [Catalytic activity/Vol] 12 U/L Critically low 15-37 [facility] Comment on above: Performed By: #### R PRQ #### [facility] [address] [place] [address] Dr. Jerry Samuel Bilirubin [Mass/Vol] 0.3 mg/dL Normal 0.2-1.0 [facility] Comment on above: Performed By: #### R PRQ #### [facility] [address] [place] [address] Dr. Jerry Samuel Calcium [Mass/Vol] 9.2 mg/dL Normal 8.5-10.1 [facility] Comment on above: Performed By: #### R PRQ #### [facility] [address] [place] [address] Dr. Jerry Samuel Chloride [Moles/Vol] 105 mmol/L Normal 98-107 [facility] Comment on above: Performed By: #### R PRQ #### [facility] [address] [place] [address] Dr. Jerry Samuel CO2 [Moles/Vol] 25.0 mmol/L Normal 21.0-32.0 [facility] Comment on above: Performed By: #### R PRQ #### [facility] [address] [place] [address] Dr. Jerry Samuel Creatinine [Mass/Vol] 0.40 mg/dL Critically low 0.55-1.02 [facility] Comment on above: Performed By: #### R PRQ #### [facility] [address] [address] [address] Jerry Samuel EGFR-AF ARMENIAN >60 Normal >=60 [facility] Comment on above: Performed By: #### R PRQ #### [facility] [address] [address] [address] Jerry Samuel EGFR-NON AF ARMENIAN >60 Normal >=60 [facility] Comment on above: Performed By: #### R PRQ #### [facility] [address] [address] [address] Jerry Samuel Globulin (S) [Mass/Vol] 3.5 g/dL Normal [facility] Comment on above: Performed By: #### R PRQ #### [facility] [address] [place] [address] Dr. Jerry Samuel Glucose [Mass/Vol] 94 mg/dL Normal 74-106 [facility] Comment on above: Performed By: #### R PRQ #### [facility] [address] [address] [address] Jerry Samuel Potassium [Moles/Vol] 3.5 mmol/L Normal 3.5-5.1 [facility] Comment on above: Performed By: #### R PRQ #### [facility] [address] [place] [address] Dr. Jerry Samuel Protein [Mass/Vol] 6.9 g/dL Normal 6.4-8.2 [facility] Comment on above: Performed By: #### R PRQ #### [facility] [address] [address] [address] Jerry Samuel Sodium [Moles/Vol] 135 mmol/L Critically low 136-145 [facility] Comment on above: Performed By: #### R PRQ #### [facility] [address] [place] [address] Dr. Jerry Samuel Urea nitrogen [Mass/Vol] 6.0 mg/dL Critically low 7.0-18.0 [facility] Comment on above: Performed By: #### R PRQ #### [facility] [address] [place] [address] Dr. Jerry Samuel Urea nitrogen/Creatinine [Mass ratio] 15.0 mg/mg Normal [facility] Comment on above: Performed By: #### R PRQ #### [facility] [address] [place] [address] Dr. Jerry Samuel DOROTEO BOX TEST PT SEND OUTo n 05-02-2022 SENT TO REF LAB 05/02/2022 Normal [facility] Comment on above: Performed By: #### N BOX #### [facility] [address] [place] [address] Dr. Jerry Samuel HEP B SURFACE ANTIGEN SCREEN on 04-05-2022 HBsAg Screen Negative Normal Negative [facility] Comment on above: Performed By: #### N BOX #### [facility] [address] [place] [address] Dr. Jerry Samuel HEPATITIS C VIRUS AB W/ REFL EX QUANTon 04-05-2022 HCV AB <0.1 Normal 0.0-0.9 [facility] Comment on above: Performed By: #### H CVPCRR #### [facility] [address] [place] [address] Dr. Jerry Samuel Interpretation: Comment Normal [facility] Comment on above: Result Comment: Nega tive Not infected with HCV, unless recent infection is suspected or other evidence exists to indicate HCV infection. Performed By: #### H CVPCRR #### [facility] [address] [place] [address] Dr. Jerry Samuel HIV 1 AND 2 WITH REFLEXon HIV Screen 4th Generation wRfx Non-Reactive Normal Non Reactive [facility] Comment on above: Result Comment: HIV Negative HIV-1/HIV-2 antibodies and HIV-1 p24 antigen were NOT detected. There is no laboratory evidence of HIV infection. Performed By: #### R PRQ #### [facility] [address] [place] [address] Dr. Jerry Samuel RPR QUANTon 04-05-2022 Rapid Plasma Reagin, Quant Non-Reactive Normal NonRea<1:1 [facility] Comment on above: Result Comment: Nathaly wilkes Note: This test does not meet current guidelines for screening and diagnosis of syphilis. This test is intended for following treatment response in patients being treated for syphilis infection. To screen for syphilis infection, a reflex cascade that includes both RPR and a treponema-specific assay should be utilized, such as Treponema pallidum (Syphilis) Screening [place] (226481) or Rapid Plasma Reagin (RPR) Test With Reflex to Quantitative RPR and Confirmatory Treponema pallidum Antibodies (060992). Performed By: #### R PRQ #### [facility] [address] [place] [address] Dr. Jerry Samuel RUBELLA AB IGGon 04-05-2022 Rubella Antibodies, IgG 1.97 index Normal Immune >0.99 [facility] Comment on above: Result Comment: Non- immune <0.90 Equivocal 0.90 - 0.99 Immune >0.99 Performed By: #### R UBIGG #### [facility] [address] [place] [address] Dr. Jerry Samuel CBC AUTO DIFFon 04-04-2022 BASO # 0.0 103/ul Normal 0.0-0.1 [facility] Comment on above: Performed By: #### R PRQ #### [facility] [address] [place] [address] Dr. Jerry Samuel Basophils/100 WBC (Bld) 0.3 % Normal 0.2-2.0 [facility] Comment on above: Performed By: #### R PRQ #### [facility] [address] [place] [address] Dr. Jerry Samuel EO # 0.1 103/ul Normal 0.0-0.7 [facility] Comment on above: Performed By: #### R PRQ #### [facility] [address] [place] [address] Dr. Jerry Samuel Eosinophils/100 WBC (Bld) 0.7 % Critically low 0.9-7.0 [facility] Comment on above: Performed By: #### R PRQ #### [facility] [address] [place] [address] Dr. Jerry Samuel Erythrocyte distribution width (RBC) [Ratio] 12.3 % Normal 11.0-15.0 [facility] Comment on above: Performed By: #### R PRQ #### [facility] [address] [place] [address] Dr. Jerry Samuel Hematocrit (Bld) [Volume fraction] 35.1 % Critically low 36.0-48.0 [facility] Comment on above: Performed By: #### R PRQ #### [facility] [address] [place] [address] Dr. Jerry Samuel Hemoglobin (Bld) [Mass/Vol] 11.8 g/dL Critically low 12.0-16.0 [facility] Comment on above: Performed By: #### R PRQ #### [facility] [address] [place] [address] Dr. Jerry Samuel IG # 0.02 10e3/ul Normal 0.00-0.03 [facility] Comment on above: Performed By: #### R PRQ #### [facility] [address] [place] [address] Dr. Jerry Samuel IG % 0.3 % Normal 0.0-0.5 [facility] Comment on above: Performed By: #### R PRQ #### [facility] [address] [place] [address] Dr. Jerry Samuel LYMPH # 2.0 103/ul Normal 1.2-3.8 [facility] Comment on above: Performed By: #### R PRQ #### [facility] [address] [place] [address] Dr. Jerry Samuel Lymphocytes/100 WBC (Bld) 26.7 % Normal 20.5-60.0 [facility] Comment on above: Performed By: #### R PRQ #### [facility] [address] [place] [address] Dr. Jerry Samuel MANUAL DIFF REQ NO Normal [facility] Comment on above: Performed By: #### R PRQ #### [facility] [address] [place] [address] Dr. Jerry Samuel MCH (RBC) [Entitic mass] 29.0 pg Normal 26.7-34.0 [facility] Comment on above: Performed By: #### R PRQ #### [facility] [address] [place] [address] Dr. Jerry Samuel MCHC (RBC) [Mass/Vol] 33.6 g/dL Normal 29.9-35.2 [facility] Comment on above: Performed By: #### R PRQ #### [facility] [address] [place] [address] Dr. Jerry Samuel MCV (RBC) [Entitic vol] 86.2 fL Normal 81.0-99.0 [facility] Comment on above: Performed By: #### R PRQ #### [facility] [address] [place] [address] Dr. Jerry Samuel MONO # 0.5 103/ul Normal 0.3-0.8 [facility] Comment on above: Performed By: #### R PRQ #### [facility] [address] [place] [address] Dr. Jerry Samuel Monocytes/100 WBC (Bld) 6.7 % Normal 1.7-12.0 [facility] Comment on above: Performed By: #### R PRQ #### [facility] [address] [place] [address] Dr. Jerry Samuel NEUT # 4.9 103/ul Normal 1.4-6.5 [facility] Comment on above: Performed By: #### R PRQ #### [facility] [address] [place] [address] Dr. Jerry Samuel Neutrophils/100 WBC (Bld) 65.3 % Normal 43.0-75.0 [facility] Comment on above: Performed By: #### R PRQ #### [facility] [address] [place] [address] Dr. Jerry Samuel Platelet mean volume (Bld) [Entitic vol] 10.0 fL Normal 9.5-13.5 [facility] Comment on above: Performed By: #### R PRQ #### [facility] [address] [address] [address] Jerry Samuel PLT 218 103/ul Normal 150-450 [facility] Comment on above: Performed By: #### R PRQ #### [facility] [address] [address] [address] Jerry Samuel RBC 4.07 106/ul Critically low 4.20-5.40 [facility] Comment on above: Performed By: #### R PRQ #### [facility] [address] [address] [address] Jerry Samuel WBC 7.5 103/ul Normal 4.0-11.0 [facility] Comment on above: Performed By: #### R PRQ #### [facility] [address] [place] [address] Dr. Jerry Samuel CULTURE URINEon 04-04-2022 CULTURE URINE Culture Observations : NO GROWTH. Normal [facility] Comment on above: Performed By: #### N BOX #### [facility] [address] [place] [address] Dr. Jerry Samuel GLYCOHEMOGLOBIN A1Con 2021 ADA RECOMMENDATION SEE BELOW Normal [facility] Comment on above: Result Comment: ADA RECOMMENDED LIMIT 4.0 - 6.0 ADA THERAPEUTIC TARGET < 7.0 ACTION SUGGESTED > 7.0 Performed By: #### N BOX #### [facility] [address] [place] [address] Dr. eJrry Samuel Glucose [Mass/Vol] 97 mg/dL Normal [facility] Comment on above: Performed By: #### N BOX #### [facility] [address] [address] [address] Jerry Samuel HbA1c (Bld) [Mass fraction] 5.0 % Normal 4.5-6.2 [facility] Comment on above: Performed By: #### N BOX #### [facility] [address] [place] [address] Dr. Jerry Samuel TYPE AND SCREENon 04-04-2022 TYPE AND SCREEN Negative Normal [facility] Comment on above: Performed By: #### N BOX #### [facility] [address] [place] [address] Dr. Jerry Samuel US PREG TVon 04-04-2022 [...] EDITH WILLIS Date: 2022-04-04 16:13 Normal [facility] PREG QUANT HCGon 03-07-2022 HCG QUANT 2201 mIU/mL Normal [facility] Comment on above: Performed By: #### R PRQ #### [facility] [address] [place] [address] Dr. Jerry Samuel HCG RANGE SEE BELOW Normal [facility] Comment on above: Result Comment: 5-50 0.2-1 WEEK 50-500 1-2 WEEKS 100-5,000 2-3 WEEKS 500-10,000 3-4 WEEKS 1,000-50,000 4-5 WEEKS 10,000-100,000 5-6 WEEKS 15,000-200,000 6-8 WEEKS 10,000-100,000 2-3 MONTHS Performed By: #### R PRQ #### [facility] [address] [place] [address] Dr. Jerry Samuel PREG QUANT HCGon 03-05-2022 HCG QUANT 820 mIU/mL Normal [facility] Comment on above: Performed By: #### R PRQ #### [facility] [address] [place] [address] Dr. Jerry Samuel HCG RANGE SEE BELOW Normal [facility] Comment on above: Result Comment: 5-50 0.2-1 WEEK 50-500 1-2 WEEKS 100-5,000 2-3 WEEKS 500-10,000 3-4 WEEKS 1,000-50,000 4-5 WEEKS 10,000-100,000 5-6 WEEKS 15,000-200,000 6-8 WEEKS 10,000-100,000 2-3 MONTHS Performed By: #### R PRQ #### [facility] [address] [place] [address] Dr. Jerry Samuel PAP ACOG PANEL 2: 21 to 29on 02-21-2022 . . Normal [facility] Comment on above: Performed By: #### R PRQ #### [facility] [address] [place] [address] Dr. Jerry Samuel Age Gdln ACOG Testing - [facility] Comment on above: Performed By: #### R PRQ #### [facility] [address] [place] [address] Dr. Jerry Samuel DIAGNOSIS: Comment [facility] Comment on above: Result Comment: NEGA TIVE FOR INTRAEPITHELIAL LESION OR MALIGNANCY. SPECIMEN REPROCESSED FOR INTERPRETATION. Performed By: #### R PRQ #### [facility] [address] [place] [address] Dr. Jerry Samuel Methodology: Comment [facility] Comment on above: Result Comment: This liquid based ThinPrep(R) pap test was screened with the use of an image guided system. Performed By: #### R PRQ #### [facility] [address] [place] [address] Dr. Jerry Samuel Note: Comment [facility] Comment on above: Result Comment: The Pap smear is a screening test designed to aid in the detection of premalignant and malignant conditions of the uterine cervix. It is not a diagnostic procedure and should not be used as the sole means of detecting cervical cancer. Both false-positive and false-negative reports do occur. . Performed By: #### R PRQ #### [facility] [address] [place] [address] Dr. Jerry Samuel Performed by: Comment [facility] Comment on above: Result Comment: Anders Roman, Mirror Maker (ASCP) Performed By: #### R PRQ #### [facility] [address] [place] [address] Dr. Jerry Samuel Reflex Criteria: Comment Normal [facility] Comment on above: Result Comment: The HPV DNA reflex criteria were not met with this specimen result therefore, no HPV testing was performed. . Performed By: #### R PRQ #### [facility] [address] [place] [address] Dr. Jerry Samuel Specimen adequacy: Comment Normal [facility] Comment on above: Result Comment: Sati sfactory for evaluation. Endocervical and/or squamous metaplastic cells (endocervical component) are present. Performed By: #### R PRQ #### [facility] [address] [place] [address] Dr. Jerry Samuel US PELVIS AND TRANSVAGon [...] EDITH WILLIS Date: 2022-02-13 14:34 Normal [facility] CBC AUTO DIFFon 02-12-2022 BASO # 0.0 103/ul Normal 0.0-0.1 [facility] Comment on above: Performed By: #### C BC #### [facility] [address] [place] [address] Dr. Jerry Samuel Basophils/100 WBC (Bld) 0.6 % Normal 0.2-2.0 [facility] Comment on above: Performed By: #### C BC #### [facility] [address] [place] [address] Dr. Jerry Samuel EO # 0.1 103/ul Normal 0.0-0.7 [facility] Comment on above: Performed By: #### C BC #### [facility] [address] [place] [address] Dr. Jerry Samuel Eosinophils/100 WBC (Bld) 1.2 % Normal 0.9-7.0 [facility] Comment on above: Performed By: #### C BC #### [facility] [address] [place] [address] Dr. Jerry Samuel Erythrocyte distribution width (RBC) [Ratio] 11.9 % Normal 11.0-15.0 [facility] Comment on above: Performed By: #### C BC #### [facility] [address] [place] [address] Dr. Jerry Samuel Hematocrit (Bld) [Volume fraction] 39.1 % Normal 36.0-48.0 [facility] Comment on above: Performed By: #### C BC #### [facility] [address] [place] [address] Dr. Jerry Samuel Hemoglobin (Bld) [Mass/Vol] 13.0 g/dL Normal 12.0-16.0 [facility] Comment on above: Performed By: #### C BC #### [facility] [address] [place] [address] Dr. Jerry Samuel IG # 0.01 10e3/ul Normal 0.00-0.03 [facility] Comment on above: Performed By: #### C BC #### [facility] [address] [place] [address] Dr. Jerry Samuel IG % 0.2 % Normal 0.0-0.5 [facility] Comment on above: Performed By: #### C BC #### [facility] [address] [place] [address] Dr. Jerry Samuel LYMPH # 2.4 103/ul Normal 1.2-3.8 [facility] Comment on above: Performed By: #### C BC #### [facility] [address] [place] [address] Dr. Jerry Samuel Lymphocytes/100 WBC (Bld) 37.7 % Normal 20.5-60.0 [facility] Comment on above: Performed By: #### C BC #### [facility] [address] [place] [address] Dr. Jerry Samuel MANUAL DIFF REQ NO Normal [facility] Comment on above: Performed By: #### C BC #### [facility] [address] [place] [address] Dr. Jerry Samuel MCH (RBC) [Entitic mass] 29.2 pg Normal 26.7-34.0 [facility] Comment on above: Performed By: #### C BC #### [facility] [address] [place] [address] Dr. Jerry Samuel MCHC (RBC) [Mass/Vol] 33.2 g/dL Normal 29.9-35.2 [facility] Comment on above: Performed By: #### C BC #### [facility] [address] [place] [address] Dr. Jerry Samuel MCV (RBC) [Entitic vol] 87.9 fL Normal 81.0-99.0 [facility] Comment on above: Performed By: #### C BC #### [facility] [address] [place] [address] Dr. Jerry Samuel MONO # 0.4 103/ul Normal 0.3-0.8 [facility] Comment on above: Performed By: #### C BC #### [facility] [address] [place] [address] Dr. Jerry Samuel Monocytes/100 WBC (Bld) 5.9 % Normal 1.7-12.0 [facility] Comment on above: Performed By: #### C BC #### [facility] [address] [place] [address] Dr. Jerry Samuel NEUT # 3.5 103/ul Normal 1.4-6.5 [facility] Comment on above: Performed By: #### C BC #### [facility] [address] [place] [address] Dr. Jerry Samuel Neutrophils/100 WBC (Bld) 54.4 % Normal 43.0-75.0 [facility] Comment on above: Performed By: #### C BC #### [facility] [address] [place] [address] Dr. Jerry Samuel Platelet mean volume (Bld) [Entitic vol] 9.9 fL Normal 9.5-13.5 [facility] Comment on above: Performed By: #### C BC #### [facility] [address] [place] [address] Dr. Jerry Samuel PLT 229 103/ul Normal 150-450 [facility] Comment on above: Performed By: #### C BC #### [facility] [address] [place] [address] Dr. Jerry Samuel RBC 4.45 106/ul Normal 4.20-5.40 [facility] Comment on above: Performed By: #### C BC #### [facility] [address] [place] [address] Dr. Jerry Samuel WBC 6.5 103/ul Normal 4.0-11.0 [facility] Comment on above: Performed By: #### C BC #### [facility] [address] [place] [address] Dr. Jerry Samuel FREE T4on 02-12-2022 Free T4 [Mass/Vol] 0.99 ng/dL Normal 0.76-1.46 [facility] Comment on above: Performed By: #### R PRQ #### [facility] [address] [place] [address] Dr. Jerry Samuel GLYCOHEMOGLOBIN A1Con 2021 ADA RECOMMENDATION SEE BELOW Normal [facility] Comment on above: Result Comment: ADA RECOMMENDED LIMIT 4.0 - 6.0 ADA THERAPEUTIC TARGET < 7.0 ACTION SUGGESTED > 7.0 Performed By: #### R PRQ #### [facility] [address] [place] [address] Dr. Jerry Samuel Glucose [Mass/Vol] 103 mg/dL Normal [facility] Comment on above: Performed By: #### R PRQ #### [facility] [address] [place] [address] Dr. Jerry Samuel HbA1c (Bld) [Mass fraction] 5.2 % Normal 4.5-6.2 [facility] Comment on above: Performed By: #### R PRQ #### [facility] [address] [place] [address] Dr. Jerry Samuel PROTIMEon 02-12-2022 INR Coag (PPP) [Relative time] 1.00 {INR} Normal [facility] Comment on above: Performed By: #### N BOX #### [facility] [address] [place] [address] Dr. Jerry Samuel INR GUIDELINES SEE BELOW Normal [facility] Comment on above: Result Comment: SACHA RED INR: 2.0 - 3.0 CONDITIONS NOT LISTED BELOW 2.5 - 3.5 FOR PROSTHETIC HEART VALVE REPLACEMENT 2.5 - 3.5 RECURRENT THROMBOSIS Performed By: #### N BOX #### [facility] [address] [place] [address] Dr. Jerry Samuel PT Coag (PPP) [Time] 10.8 s Normal 9.0-11.6 [facility] Comment on above: Performed By: #### N BOX #### [facility] [address] [place] [address] Dr. Jerry Samuel PTTon 02-12-2022 aPTT Coag (Bld) [Time] 27.8 s Normal 22.3-36.2 [facility] Comment on above: Performed By: #### N BOX #### [facility] [address] [place] [address] Dr. Jerry Samuel TSHon 02-12-2022 TSH 1.741 uIU/mL Normal 0.358-3.740 [facility] Comment on above: Performed By: #### T SH #### [facility] [address] [place] [address] Dr. Jerry Samuel [facility] 11-20-2021 Outside Records [id number] TIFF Normal [facility] 11-16-2021 Outside Records [id number] GTIFF Normal [facility] HCG,Urineon 02-22-2021 Beta HCG ( test) Ql (U) Negative Normal [facility] Comment on above: Result Comment: PERF ORMED BY: [place] [address] PATHOLOGIST PIPELINE GANG SUPERVISOR PRIYA WHITE M.D. Performed By: #### U HCG #### [place] [id number] [facility] 02-22-2021 L ---- Specimen: [id number] Received: 02/23/21 Status: DRE Elizabeth Num: [id number] Spec Type: Surgical Subm Dr: Edith Cagle Jr, Tissues: A Duodenum - Biopsy (DUODENUM BX) B Stomach - Biopsy/Polyp (ANTRUM BX) C Colon Biopsy (RANDOM COLON) Procedures: HE Stain/6, Gross/Micro L4/3 Patient Age/Sex Location Account Attending Physician Will Shay Jose Luis / [id number] Edith Cagle Jr, DO SPEC NUM: [id number] RECD: 02/23/21 STATUS: DRE ELIZABETH NUM: [id number] CASIMIRO: 02/22/21- DR: Edith Cagle Jr, DO ENTERED: 02/23/[address]: ANITA TYPE: Surgical DEPT: S ENTERED BY: [id number] RECV BY: [id number] ORDERED: HE Stain/6, Gross/Micro L4/3 ORDERED: HE [...] in one cassette labeled B1. (SM/YJ) Specimen: [id number] Received: 02/23/21 Status: DRE Elizabeth Num: [id number] Spec Type: Surgical Subm Dr: Edith Cagle Jr, DO Tissues: A Duodenum - Biopsy (DUODENUM BX) B Stomach - Biopsy/Polyp (ANTRUM BX) C Colon Biopsy (RANDOM COLON) Procedures: HE Stain/6, Gross/Micro L4/3 Patient: LauritaNenomaria e Amaya [id number] (Continued) Specimen: Received: 02/23/21 (Continued) Gross Description (Continued) Signed (signature on file) Gail Crockett MD 02/26/21 1601 Specimen: [id number] Received: 02/23/21 Status: DRE Elizabeth Num: [id number] Spec Type: Surgical Subm Dr: Edith Cagle Jr, DO Tissues: A Duodenum - Biopsy (DUODENUM BX) B Stomach - Biopsy/Polyp (ANTRUM BX) C Colon Biopsy (RANDOM COLON) Procedures: HE Stain/6, Gross/Micro L4/3 Patient: Will Shay [id number] (Continued) Specimen: [id number] Received: 02/23/21 (Continued) Gross Description (Continued) C. [...] characteristics were determined by the Laboratory of [facility]. Immunohistochemistry assays have not been validated on decalcified tissue. Results should be interpreted with caution given the possibility of false negative results on decalcified specimens. They have not been cleared by the [place] Food and Drug Administration. The FDA has determined that such clearance or approval is not necessary. CPT Codes 49884?3, 21923 (more content not included)... Normal [facility] SARS-CoV-2 (COVID-19) RNA ELINOR+probe Ql (Unsp spec) Negative Normal Negative [facility] Comment on above: Order Comment: Healt hcare Worker?: N Result Comment: Testing for SARS-CoV-2 by RT-PCR This test was developed and its performance characteristics determined by [employer] and validated at the [facility]. This test has not been FDA [...] is terminated or revoked sooner. PERFORMED BY: [facility] [place] [address] PATHOLOGIST [employer] SUPERVISOR PRIYA WHITE M.D. Performed By: #### C OVID 19 [facility] #### [address] Vital Signs Date Time Vital Sign Value Performing Clinician Facility 03-26-2023 13:45-0500 Body height 164.47 cm Ben [facility] Other [facility] 03-26-2023 13:45-0500 Body mass index (BMI) [Ratio] 29.6 kg/m2 Ben [facility] Other [facility] 03-26-2023 13:45-0500 Body weight 80.06 kg Ben Rose Other [facility] 03-26-2023 13:45-0500 Diastolic blood pressure 74 mm[Hg] Ben Rose Other [facility] 03-26-2023 13:45-0500 Systolic blood pressure 120 mm[Hg] Ben Rose Other [facility] 06-14-2022 17:07-0500 Body weight 79.[address] EDDIE VALIENTE . [facility] Comment on above: Performed By: #### RPRQ #### [facility] [address] [place] [address] Dr. Jerry Samuel 03-08-2022 11:15-0500 Body height 164.47 cm Ben Rose Other [facility] 03-08-2022 11:15-0500 Body mass index (BMI) [Ratio] 29.01 kg/m2 Ben Rose Other [facility] 03-08-2022 11:15-0500 Body weight 78.47 kg Ben Rose Other [facility] 03-08-2022 11:15-0500 Diastolic blood pressure 73 mm[Hg] Ben Rose Other [facility] 03-08-2022 11:15-0500 Systolic blood pressure 113 mm[Hg] Ben Rose Other [facility] Other Encounters Encounter Date Encounter Type Care Provider Facility Start: 03-27-2023 End: 03-27-2023 ambulatory GENTRY KIM Not Available Start: 03-26-2023 End: 03-26-2023 ambulatory Ben Rose Other [facility] Start: 03-26-2023 Patient encounter procedure [facility] Start: 03-05-2023 End: 03-05-2023 ambulatory EDDIE VALIENTE Not Available Start: 01-24-2023 End: 01-24-2023 ambulatory Ben Rose Other [facility] Start: 01-24-2023 Telephone encounter Ben FORD [...] MIKAEL Facility:[facility] Start: 03-08-2022 End: 03-08-2022 ambulatory Bne Rose Other [facility] Start: 03-08-2022 Patient encounter procedure Ben [...] 11-06-2021 End: 11-06-2021 ambulatory Angeles A Mikael [facility]PAR[facility]-C [facility] Start: 11-05-2021 End: 11-06-2021 ambulatory Angeles A Mikael ARTIST [facility] SEPARATION-C Facility[facility] Immunizations Immunization Date Immunization Notes Care Provider Michael albright 11-08-2014 human papilloma viru s vaccine, quadrivalent Ben Rose Other [facility] Other Payers Date Payer Category Payer Unknown [id number] 2021 Unknown [id number] 1996 Unknown [id number] 2.16.84 0.1.253466.3.579.2.718 1996 Unknown [id number] 2.16.8 40.1.256838.3.579.2.718 1996 Unknown [id number] 2.16.84 0.1.352494.3.579.2.593 1996 Unknown [id number] 2.16.84 0.1.328103.3.579.2.593 1996 Unknown [id number] 2.16.84 0.1.059260.3.579.2.593 1996 Unknown [id number] 2.16.84 0.1.463032.3.579.2.593 1996 Unknown [id number] 2.16.84 0.1.487031.3.579.2.593 1996 Unknown [id number] 2.16.84 0.1.878367.3.579.2.593 1996 Unknown [id number] 2.16.84 0.1.163890.3.579.2.593 1996 Unknown [id number] 2.16.84 0.1.941575.3.579.2.593 1996 Unknown [id number] 2.16.84 0.1.086037.3.579.2.593 1996 Unknown [id number] 2.16.84 0.1.526560.3.579.2.593 1996 Unknown [id number] 2.16.84 0.1.780531.3.579.2.593 1996 Unknown [id number] 2.16.84 0.1.872677.3.579.2.593 1996 Unknown [id number] 2.16.84 0.1.051032.3.579.2.593 1996 Unknown [id number] 2.16.84 0.1.476621.3.579.2.593 1996 Unknown [id number] 2.16.84 0.1.967728.3.579.2.593 1996 Unknown [id number] 2.16.840 .1.057448.3.579.2.1259 1996 Unknown [id number] 2.16.840 .1.877721.3.579.2.1259 1959 Self-pay 1959 Unknown [id number] 2.16. 840.1.972014.19 1959 Unknown [id number] 2. 16.840.1.701800.19 1959 Unknown [id number] 1959 Unknown [id number] Unknown [id number] 2.16.84 0.1.552353.3.579.2.593 Social History Date Type Detail Facility Unknown if ever smoked [facility] Sex Assigned At Sex Assigned At [facility] Evaluation note 03-26-2023 Note Date & [...] call office if she has no improvement [facility] Other Evaluation note 01-24-2023 Note Date & Type Note Facility 01-24-2023 Evaluation note Encounter Date Diagnosis Assessment Notes Jan, Epigastric burning sensation (ICD-10 - R10.13) [facility] Other Evaluation note 03-08-2022 Note Date & [...] DAILY CONTINUE LEVSIN NEEDED RTO 1 YR [facility] Other History general Narrative - Reported Note Date & Type Note Facility History general Narrative - Reported Type Medical History scoliosis Medical History hx of mono Surgical History [place] teeth x4 [facility] Other History general Narrative - Reported Note Date & Type Note Facility History general Narrative - Reported Type Medical History scoliosis Medical History hx of mono Surgical History [place] teeth x4 Surgical History C section [facility] [place] Other Summary Purpose Family History No Family History Records FoundNo Family History Records FoundNo Family History Records FoundNo Family History Records Found Advance Directives No Advanced Directives Records FoundNo Advanced Directives Records FoundNo Advanced Directives Records FoundNo Advanced Directives Records Found Additional Source Comments INFORMATION SOURCE (unrecogn ized section and content) DATE CREATED AUTHOR 02/27/2021 [facility] DATE CREATED AUTHOR AUTHOR'S ORGANIZ ATION 07/24/2022 [facility] DATE CREATED AUTHOR AUTHOR'S ORGANIZ ATION [facility] [facility] DATE CREATED AUTHOR AUTHOR'S ORGANIZ ATION 03/28/2023 [facility] EPIC REASON FOR VISIT (unrecogniz ed [...] BE BASED ON THE PRIMARY CLINICAL RECORDS. [employer] provides no warranty or guarantee of the accuracy or completeness of information in this document.
[2023-11-12 17:00] LABS: HCG Quantitative 277 mIU/mL
== END 2023-11-12 16:21 | disposition home or self-care (01) ==
PROVIDERS: Visit Provider Obstetrics & Gynecology
DX: N92.6 Irregular menstruation, unspecified (principal)
CPT/HCPCS: 36415; 84702

== ENCOUNTER 2023-11-13 08:57 | Emergency (ER) | payer BC, SELFPAY ==
[2023-11-13] VITALS (21 sets, daily range): BP systolic 91–118; BP diastolic 50–89; PULSE 65–86; TEMP 36.5; O2SAT 66–100; BMI 33.7
--- OUTSIDE RECORDS SUMMARY | 2023-11-13 09:12 | XMS_ITS | CCD ---
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 Role Phone Ben Rose Unavailable Mikael REROLLER HAND-C, Angeles A Admitting Unavailable Mikael REROLLER HAND-C, Angeles A Attending Unavailable Mikael REROLLER HAND-C, Angeles A Primary Care Unavailable Mikael REROLLER HAND-C, Angeles A Attending Unavailable Mikael REROLLER HAND-C, Angeles A Primary Care Unavailable ROCCO ., [...] Unavailable ROCCO ., DR MORGAN Attending Unavailable [place], DR EDITH Corey Consulting Unavailable ROCCO ., DR MORGAN Admitting Unavailable ROCCO ., DR MORGNA Consulting Unavailable ROCCO ., DR MORGAN Consulting Unavailable ROCCO ., DR MORGAN Admitting Unavailable REQUEST, DR NONE LISTED Primary Care Unavaila ble ROCCO ., DR MORGAN Attending Unavailable MIKAEL, ANGELES Primary Care Unavailable ROCCO ., DR MORGAN Attending Unavailable [place], DR EDITH Corey Consulting Unavailable ROCCO ., DR MORGAN Admitting Unavailable ROCCO ., DR MORGAN Consulting Unavailable MIKAEL, ANGEELS Primary Care Unavailable ROCCO ., DR MORGAN [...] (3 sources) Penicillin G Drug Allergy Unknown [employer] Other (1 source) busPIRone; Translations: [buspirone hcl] Drug Allergy [facility] Repository (1 source) Coconut extract; Translations: [coconut] Drug Allergy [facility] Repository (1 source) Penicillins; Translations: [penicillins] Propensity to adverse reactions to drug (disorder) [facility] Repository (1 source) Amoxicillin Drug Allergy [facility] Repository (1 source) Penicillin Drug Allergy [facility] Repository Medications Current Medications Medication Drug Class(es) [...] 07-25-2022 BASO # 0.0 103/ul Normal 0.0-0.1 [facility] Comment on above: Performed By: #### C BC #### [facility] [address] [address] [address] Jerry Samuel Basophils/100 WBC (Bld) 0.3 % Normal 0.2-2.0 [facility] Comment on above: Performed By: #### C BC #### [facility] [address] [address] [address] Jerry Samuel EO # 0.1 103/ul Normal 0.0-0.7 [facility] Comment on above: Performed By: #### C BC #### [facility] [address] [address] [address] Jerry Samuel Eosinophils/100 WBC (Bld) 1.4 % Normal 0.9-7.0 [facility] Comment on above: Performed By: #### C BC #### [facility] [address] [address] [address] Jerry Samuel Erythrocyte distribution width (RBC) [Ratio] 13.2 % Normal 11.0-15.0 [facility] Comment on above: Performed By: #### C BC #### [facility] [address] [address] [address] Jerry Samuel Hematocrit (Bld) [Volume fraction] 33.9 % Critically low 36.0-48.0 [facility] Comment on above: Performed By: #### C BC #### [facility] [address] [address] [address] Jerry Samuel Hemoglobin (Bld) [Mass/Vol] 11.3 g/dL Critically low 12.0-16.0 [facility] Comment on above: Performed By: #### C BC #### [facility] [address] [address] [address] Jerry Samuel IG # 0.04 10e3/ul Critically high 0.00-0.03 [facility] Comment on above: Performed By: #### C BC #### [facility] [address] [place] [address] Dr. Jerry Samuel IG % 0.6 % Critically high 0.0-0.5 [facility] Comment on above: Performed By: #### C BC #### [facility] [address] [place] [address] Dr. Jerry Samuel LYMPH # 1.9 103/ul Normal 1.2-3.8 [facility] Comment on above: Performed By: #### C BC #### [facility] [address] [place] [address] Dr. Jerry Samuel Lymphocytes/100 WBC (Bld) 30.2 % Normal 20.5-60.0 [facility] Comment on above: Performed By: #### C BC #### [facility] [address] [place] [address] Dr. Jerry Samuel MANUAL DIFF REQ NO Normal [facility] Comment on above: Performed By: #### C BC #### [facility] [address] [place] [address] Dr. Jerry Samuel MCH (RBC) [Entitic mass] 29.9 pg Normal 26.7-34.0 [facility] Comment on above: Performed By: #### C BC #### [facility] [address] [place] [address] Dr. Jerry Samuel MCHC (RBC) [Mass/Vol] 33.3 g/dL Normal 29.9-35.2 [facility] Comment on above: Performed By: #### C BC #### [facility] [address] [place] [address] Dr. Jerry Samuel MCV (RBC) [Entitic vol] 89.7 fL Normal 81.0-99.0 [facility] Comment on above: Performed By: #### C BC #### [facility] [address] [place] [address] Dr. Jerry Samuel MONO # 0.5 103/ul Normal 0.3-0.8 [facility] Comment on above: Performed By: #### C BC #### [facility] [address] [place] [address] Dr. Jerry Samuel Monocytes/100 WBC (Bld) 7.2 % Normal 1.7-12.0 [facility] Comment on above: Performed By: #### C BC #### [facility] [address] [address] [address] Jerry Samuel NEUT # 3.8 103/ul Normal 1.4-6.5 [facility] Comment on above: Performed By: #### C BC #### [facility] [address] [place] [address] Dr. Jerry Samuel Neutrophils/100 WBC (Bld) 60.3 % Normal 43.0-75.0 [facility] Comment on above: Performed By: #### C BC #### [facility] [address] [place] [address] Dr. Jerry Samuel Platelet mean volume (Bld) [Entitic vol] 9.8 fL Normal 9.5-13.5 [facility] Comment on above: Performed By: #### C BC #### [facility] [address] [place] [address] Dr. Jerry Samuel PLT 188 103/ul Normal 150-450 [facility] Comment on above: Performed By: #### C BC #### [facility] [address] [place] [address] Dr. Jerry Samuel RBC 3.78 106/ul Critically low 4.20-5.40 [facility] Comment on above: Performed By: #### C BC #### [facility] [address] [place] [address] Dr. Jerry Samuel WBC 6.2 103/ul Normal 4.0-11.0 [facility] Comment on above: Performed By: #### C BC #### [facility] [address] [place] [address] Dr. Jerry Samuel GLUCOSE - 1HRon 07-25-2022 Glucose [Mass/Vol] 100 mg/dL Normal 74-106 [facility] Comment on above: Performed By: #### N BOX #### [facility] [address] [address] [address] Jerry Samuel US PREG ANATOMY SINGLEon [...] ABRIL SCANLON Date: 2022-07-02 13:45 Normal [facility] AFP MATERNAL FOR SPINA BIFID Aon 06-14-2022 AFP MoM 0.87 Normal [facility] Comment on above: Performed By: #### R PRQ #### [facility] [address] [address] [address] Jerry Samuel AFP Value 39.6 ng/mL Normal [facility] Comment on above: Performed By: #### R PRQ #### [facility] [address] [address] [address] Jerry Samuel AFP, Serum for Spina Bifida Report Normal [facility] Comment on above: Performed By: #### R PRQ #### [facility] [address] [address] [address] Jerry Samuel Comment Comment Normal [facility] Comment on above: Result Comment: Irina Petersen, Ph.D., [facility] Director . References: Available Upon Request. . Multiples Of Median Cutoffs For AFP Elevations Patrick 2.5 Black 2.8 IDD 2.0 Twins 4.5 Abbreviation Definitions IDD - Insulin Dep Diabetes OSBR - Open Spina Bifida Risk . For further inquiries contact [employer] at [phone]. . This test was developed and its performance characteristics determined by [employer]. It has not been cleared or approved by the Food and Drug Administration. Performed By: #### R PRQ #### [facility] [address] [place] [address] Dr. Jerry Samuel Gest Age Collection Date 18.9 weeks Normal [facility] Comment on above: Performed By: #### R PRQ #### [facility] [address] [address] [address] Jerry Samuel Gestat, Age Based on Ultrasound Normal [facility] Comment on above: Result Comment: 09.0 on 04/04/2022 Recalculations are not recommended when gestational dating by LMP and ultrasound are within 10 days. Performed By: #### R PRQ #### [facility] [address] [place] [address] Dr. Jerry Samuel Insulin Dep Diabetes No Normal [facility] Comment on above: Performed By: #### R PRQ #### [facility] [address] [address] [address] Jerry Samuel Interpretation Comment Normal [facility] Comment on above: Result Comment: Inte rpretation: [...] Customer Services to discuss available options. The [employer] recommends amniocentesis be offered to women age 35 and older. Performed By: #### R PRQ #### [facility] [address] [place] [address] Dr. Jerry Samuel [age] Normal [facility] Comment on above: Performed By: #### R PRQ #### [facility] [address] [place] [address] Dr. Jerry Samuel Multiple Gestation No Normal [facility] Comment on above: Performed By: #### R PRQ #### [facility] [address] [place] [address] Dr. Jerry Samuel OS[place] [id number] Normal [facility] Comment on above: Performed By: #### R PRQ #### [facility] [address] [place] [address] Dr. Jerry Samuel PDF . Normal [facility] Comment on above: Performed By: #### R PRQ #### [facility] [address] [place] [address] Dr. Jerry Samuel Race [facility] Comment on above: Performed By: #### R PRQ #### [facility] [address] [place] [address] Dr. Jerry Samuel Test Results: Negative Normal [facility] Comment on above: Performed By: #### R PRQ #### [facility] [address] [place] [address] Dr. Jerry Samuel CHLAMYDIA/GONOCOCCUS ELINOR (SW AB/URINE/PAPon 06-07-2022 Chlamydia trachomatis, ELINOR Negative Normal Negative [facility] Comment on above: Performed By: #### R PRQ #### [facility] [address] [place] [address] Dr. Jerry Samuel Neisseria gonorrhoeae, ELINOR Negative Normal Negative [facility] Comment on above: Performed By: #### R PRQ #### [facility] [address] [place] [address] Dr. Jerry Samuel VAGINITIS/VAGINOSIS DNA PROB Nayan 06-06-2022 Margaret species Negative Normal Negative [facility] Comment on above: Performed By: #### V AGINT #### [facility] [address] [place] [address] Dr. Jerry Samuel Gardnerella vaginalis Negative Normal Negative [facility] Comment on above: Performed By: #### V AGINT #### [facility] [address] [place] [address] Dr. Jerry Samuel Trichomonas vaginalis Negative Normal Negative [facility] Comment on above: Performed By: #### V AGINT #### [facility] [address] [place] [address] Dr. Jerry Samuel CBC AUTO DIFFon 05-26-2022 BASO # 0.0 103/ul Normal 0.0-0.1 [facility] Comment on above: Performed By: #### C BC #### [facility] [address] [place] [address] Dr. Jerry Samuel Basophils/100 WBC (Bld) 0.1 % Critically low 0.2-2.0 [facility] Comment on above: Performed By: #### C BC #### [facility] [address] [place] [address] Dr. Jerry Samuel EO # 0.0 103/ul Normal 0.0-0.7 [facility] Comment on above: Performed By: #### C BC #### [facility] [address] [place] [address] Dr. Jerry Samuel Eosinophils/100 WBC (Bld) 0.4 % Critically low 0.9-7.0 [facility] Comment on above: Performed By: #### C BC #### [facility] [address] [place] [address] Dr. Jerry Samuel Erythrocyte distribution width (RBC) [Ratio] 12.6 % Normal 11.0-15.0 [facility] Comment on above: Performed By: #### C BC #### [facility] [address] [place] [address] Dr. Jerry Samuel Hematocrit (Bld) [Volume fraction] 34.0 % Critically low 36.0-48.0 [facility] Comment on above: Performed By: #### C BC #### [facility] [address] [place] [address] Dr. Jerry Samuel Hemoglobin (Bld) [Mass/Vol] 11.6 g/dL Critically low 12.0-16.0 [facility] Comment on above: Performed By: #### C BC #### [facility] [address] [place] [address] Dr. Jerry Samuel IG # 0.03 10e3/ul Normal 0.00-0.03 [facility] Comment on above: Performed By: #### C BC #### [facility] [address] [place] [address] Dr. Jerry Samuel IG % 0.4 % Normal 0.0-0.5 [facility] Comment on above: Performed By: #### C BC #### [facility] [address] [place] [address] Dr. Jerry Samuel LYMPH # 1.1 103/ul Critically low 1.2-3.8 [facility] Comment on above: Performed By: #### C BC #### [facility] [address] [place] [address] Dr. Jerry Samuel Lymphocytes/100 WBC (Bld) 16.5 % Critically low 20.5-60.0 [facility] Comment on above: Performed By: #### C BC #### [facility] [address] [place] [address] Dr. Jerry Samuel MANUAL DIFF REQ NO Normal [facility] Comment on above: Performed By: #### C BC #### [facility] [address] [place] [address] Dr. Jerry Samuel MCH (RBC) [Entitic mass] 29.1 pg Normal 26.7-34.0 [facility] Comment on above: Performed By: #### C BC #### [facility] [address] [place] [address] Dr. Jerry Samuel MCHC (RBC) [Mass/Vol] 34.1 g/dL Normal 29.9-35.2 [facility] Comment on above: Performed By: #### C BC #### [facility] [address] [address] [address] Jerry Samuel MCV (RBC) [Entitic vol] 85.2 fL Normal 81.0-99.0 [facility] Comment on above: Performed By: #### C BC #### [facility] [address] [address] [address] Jerry Samuel MONO # 0.4 103/ul Normal 0.3-0.8 [facility] Comment on above: Performed By: #### C BC #### [facility] [address] [address] [address] Jerry Samuel Monocytes/100 WBC (Bld) 6.0 % Normal 1.7-12.0 [facility] Comment on above: Performed By: #### C BC #### [facility] [address] [address] [address] Jerry Samuel NEUT # 5.1 103/ul Normal 1.4-6.5 [facility] Comment on above: Performed By: #### C BC #### [facility] [address] [address] [address] Jerry Samuel Neutrophils/100 WBC (Bld) 76.6 % Critically high 43.0-75.0 [facility] Comment on above: Performed By: #### C BC #### [facility] [address] [address] [address] Jerry Samuel Platelet mean volume (Bld) [Entitic vol] 10.5 fL Normal 9.5-13.5 [facility] Comment on above: Performed By: #### C BC #### [facility] [address] [address] [address] Jerry Samuel PLT 207 103/ul Normal 150-450 [facility] Comment on above: Performed By: #### C BC #### [facility] [address] [address] [address] Jerry Samuel RBC 3.99 106/ul Critically low 4.20-5.40 [facility] Comment on above: Performed By: #### C BC #### [facility] [address] [place] [address] Dr. Jerry Samuel WBC 6.7 103/ul Normal 4.0-11.0 [facility] Comment on above: Performed By: #### C BC #### [facility] [address] [place] [address] Dr. Jerry Samuel ER URINE PROFILEon 3 Bilirubin Ql (U) Negative Normal NEGATIVE [facility] Comment on above: Performed By: #### E RUR #### [facility] [address] [place] [address] Dr. Jerry Samuel Clarity (U) CLEAR Normal CLEAR [facility] Comment on above: Performed By: #### E RUR #### [facility] [address] [place] [address] Dr. Jerry Samuel Color (U) LT. YELLOW Normal YELLOW [facility] Comment on above: Performed By: #### E RUR #### [facility] [address] [place] [address] Dr. Jerry Samuel ERUAHAnahy A micrscopic examina tion will be performed if indicated. Normal [facility] Comment on above: Performed By: #### E RUR #### [facility] [address] [place] [address] Dr. Jerry Samuel Glucose Ql (U) Negative Normal NEGATIVE [facility] Comment on above: Performed By: #### E RUR #### [facility] [address] [place] [address] Dr. Jerry Samuel Hemoglobin Ql (U) Negative Normal NEGATIVE [facility] Comment on above: Performed By: #### E RUR #### [facility] [address] [place] [address] Dr. Jerry Samuel Ketones Ql (U) Negative Normal NEGATIVE [facility] Comment on above: Performed By: #### E RUR #### [facility] [address] [place] [address] Dr. Jerry Samuel LEUKOCYTES Negative Normal NEGATIVE [facility] Comment on above: Performed By: #### E RUR #### [facility] [address] [place] [address] Dr. Jerry Samuel Nitrite Ql (U) Negative Normal NEGATIVE [facility] Comment on above: Performed By: #### E RUR #### [facility] [address] [place] [address] Dr. Jerry Samuel pH (U) 6.5 [pH] Normal 5-9 [facility] Comment on above: Performed By: #### E RUR #### [facility] [address] [place] [address] Dr. Jerry Saumel SPEC GRAVITY <=1.005 Abnormal 1.005-<=1.025 [facility] Comment on above: Performed By: #### E RUR #### [facility] [address] [place] [address] Dr. Jerry Samuel UA PROTEIN Negative Normal NEGATIVE/ TRACE [facility] Comment on above: Performed By: #### E RUR #### [facility] [address] [place] [address] Dr. Jerry Samuel UR MICRO IND NOT INDICATED Normal [facility] Comment on above: Performed By: #### E RUR #### [facility] [address] [place] [address] Dr. Jerry Samuel Urobilinogen Qn (U) 0.2 {Charlette'U}/dL Normal 0.2 - 1. 0 [facility] Comment on above: Performed By: #### E RUR #### [facility] [address] [place] [address] Dr. Jerry Samuel PROF 14(COMP METB)on 023 Albumin [Mass/Vol] 3.4 g/dL Normal 3.4-5.0 [facility] Comment on above: Performed By: #### R PRQ #### [facility] [address] [place] [address] Dr. Jerry Samuel Albumin/Globulin [Mass ratio] 1.0 {ratio} Normal [facility] Comment on above: Performed By: #### R PRQ #### [facility] [address] [place], [place] [id number] Dr. Jerry Samuel ALP [Catalytic activity/Vol] 33 U/L Critically low 46-116 [facility] Comment on above: Performed By: #### R PRQ #### [facility] [address] [place] [address] Dr. Jerry Samuel ALT [Catalytic activity/Vol] 16 U/L Normal 14-59 [facility] Comment on above: Performed By: #### R PRQ #### [facility] [address] [place] [address] Dr. Jerry Samuel Anion gap [Moles/Vol] 8.5 mmol/L Normal [facility] Comment on above: Performed By: #### R PRQ #### [facility] [address] [place] [address] Dr. Jerry Samuel AST [Catalytic activity/Vol] 12 U/L Critically low 15-37 [facility] Comment on above: Performed By: #### R PRQ #### [facility] [address] [place] [address] Dr. Jerry Samuel Bilirubin [Mass/Vol] 0.3 mg/dL Normal 0.2-1.0 [facility] Comment on above: Performed By: #### R PRQ #### [facility] [address] [place] [address] Dr. Jerry Samuel Calcium [Mass/Vol] 9.2 mg/dL Normal 8.5-10.1 [facility] Comment on above: Performed By: #### R PRQ #### [facility] [address] [place] [address] Dr. Jerry Samuel Chloride [Moles/Vol] 105 mmol/L Normal 98-107 [facility] Comment on above: Performed By: #### R PRQ #### [facility] [address] [place] [address] Dr. Jerry Samuel CO2 [Moles/Vol] 25.0 mmol/L Normal 21.0-32.0 [facility] Comment on above: Performed By: #### R PRQ #### [facility] [address] [place] [address] Dr. Jerry Samuel Creatinine [Mass/Vol] 0.40 mg/dL Critically low 0.55-1.02 [facility] Comment on above: Performed By: #### R PRQ #### [facility] [address] [address] [address] Jerry Samuel EGFR-AF NIUEAN >60 Normal >=60 [facility] Comment on above: Performed By: #### R PRQ #### [facility] [address] [address] Dr. Jerry Samuel EGFR-NON AF NIUEAN >60 Normal >=60 [facility] Comment on above: Performed By: #### R PRQ #### [facility] [address] [address] [address] Jerry Samuel Globulin (S) [Mass/Vol] 3.5 g/dL Normal [facility] Comment on above: Performed By: #### R PRQ #### [facility] [address] [place] [address] Dr. Jerry Samuel Glucose [Mass/Vol] 94 mg/dL Normal 74-106 [facility] Comment on above: Performed By: #### R PRQ #### [facility] [address] [address] [address] Jerry Samuel Potassium [Moles/Vol] 3.5 mmol/L Normal 3.5-5.1 [facility] Comment on above: Performed By: #### R PRQ #### [facility] [address] [place] [address] Dr. Jerry Samuel Protein [Mass/Vol] 6.9 g/dL Normal 6.4-8.2 [facility] Comment on above: Performed By: #### R PRQ #### [facility] [address] [address] [address] Jerry Samuel Sodium [Moles/Vol] 135 mmol/L Critically low 136-145 [facility] Comment on above: Performed By: #### R PRQ #### [facility] [address] [place] [address] Dr. Jerry Samuel Urea nitrogen [Mass/Vol] 6.0 mg/dL Critically low 7.0-18.0 [facility] Comment on above: Performed By: #### R PRQ #### [facility] [address] [place] [address] Dr. Jerry Samuel Urea nitrogen/Creatinine [Mass ratio] 15.0 mg/mg Normal [facility] Comment on above: Performed By: #### R PRQ #### [facility] [address] [place] [address] Dr. Jerry Samuel DOROTEO BOX TEST PT SEND OUTo n 05-02-2022 SENT TO REF LAB 05/02/2022 Normal [facility] Comment on above: Performed By: #### N BOX #### [facility] [address] [place] [address] Dr. Jerry Samuel HEP B SURFACE ANTIGEN SCREEN on 04-05-2022 HBsAg Screen Negative Normal Negative [facility] Comment on above: Performed By: #### N BOX #### [facility] [address] [place] [address] Dr. Jerry Samuel HEPATITIS C VIRUS AB W/ REFL EX QUANTon 04-05-2022 HCV AB <0.1 Normal 0.0-0.9 [facility] Comment on above: Performed By: #### H CVPCRR #### [facility] [address] [place] [address] Dr. Jerry Samuel Interpretation: Comment Normal [facility] Comment on above: Result Comment: Nega tive Not infected with HCV, unless recent infection is suspected or other evidence exists to indicate HCV infection. Performed By: #### H CVPCRR #### [facility] [address] [place] [address] Dr. Jerry Samuel HIV 1 AND 2 WITH REFLEXon HIV Screen 4th Generation wRfx Non-Reactive Normal Non Reactive [facility] Comment on above: Result Comment: HIV Negative HIV-1/HIV-2 antibodies and HIV-1 p24 antigen were NOT detected. There is no laboratory evidence of HIV infection. Performed By: #### R PRQ #### [facility] [address] [place] [address] Dr. Jerry Samuel RPR QUANTon 04-05-2022 Rapid Plasma Reagin, Quant Non-Reactive Normal NonRea<1:1 [facility] Comment on above: Result Comment: Nathaly wilkes Note: This test does not meet current guidelines for screening and diagnosis of syphilis. This test is intended for following treatment response in patients being treated for syphilis infection. To screen for syphilis infection, a reflex cascade that includes both RPR and a treponema-specific assay should be utilized, such as Treponema pallidum (Syphilis) Screening [place] (875111) or Rapid Plasma Reagin (RPR) Test With Reflex to Quantitative RPR and Confirmatory Treponema pallidum Antibodies (638524). Performed By: #### R PRQ #### [facility] [address] [place] [address] Dr. Jerry Samuel RUBELLA AB IGGon 04-05-2022 Rubella Antibodies, IgG 1.97 index Normal Immune >0.99 [facility] Comment on above: Result Comment: Non- immune <0.90 Equivocal 0.90 - 0.99 Immune >0.99 Performed By: #### R UBIGG #### [facility] [address] [place] [address] Dr. Jerry Samuel CBC AUTO DIFFon 04-04-2022 BASO # 0.0 103/ul Normal 0.0-0.1 [facility] Comment on above: Performed By: #### R PRQ #### [facility] [address] [place] [address] Dr. Jerry Samuel Basophils/100 WBC (Bld) 0.3 % Normal 0.2-2.0 [facility] Comment on above: Performed By: #### R PRQ #### [facility] [address] [place] [address] Dr. Jerry Samuel EO # 0.1 103/ul Normal 0.0-0.7 [facility] Comment on above: Performed By: #### R PRQ #### [facility] [address] [place] [address] Dr. Jerry Samuel Eosinophils/100 WBC (Bld) 0.7 % Critically low 0.9-7.0 [facility] Comment on above: Performed By: #### R PRQ #### [facility] [address] [place] [address] Dr. Jerry Samuel Erythrocyte distribution width (RBC) [Ratio] 12.3 % Normal 11.0-15.0 [facility] Comment on above: Performed By: #### R PRQ #### [facility] [address] [place] [address] Dr. Jerry Samuel Hematocrit (Bld) [Volume fraction] 35.1 % Critically low 36.0-48.0 [facility] Comment on above: Performed By: #### R PRQ #### [facility] [address] [place] [address] Dr. Jerry Samuel Hemoglobin (Bld) [Mass/Vol] 11.8 g/dL Critically low 12.0-16.0 [facility] Comment on above: Performed By: #### R PRQ #### [facility] [address] [place] [address] Dr. Jerry Samuel IG # 0.02 10e3/ul Normal 0.00-0.03 [facility] Comment on above: Performed By: #### R PRQ #### [facility] [address] [place] [address] Dr. Jerry Samuel IG % 0.3 % Normal 0.0-0.5 [facility] Comment on above: Performed By: #### R PRQ #### [facility] [address] [place] [address] Dr. Jerry Samuel LYMPH # 2.0 103/ul Normal 1.2-3.8 [facility] Comment on above: Performed By: #### R PRQ #### [facility] [address] [place] [address] Dr. Jerry Samuel Lymphocytes/100 WBC (Bld) 26.7 % Normal 20.5-60.0 [facility] Comment on above: Performed By: #### R PRQ #### [facility] [address] [place] [address] Dr. Jerry Samuel MANUAL DIFF REQ NO Normal [facility] Comment on above: Performed By: #### R PRQ #### [facility] [address] [place] [address] Dr. Jerry Samuel MCH (RBC) [Entitic mass] 29.0 pg Normal 26.7-34.0 [facility] Comment on above: Performed By: #### R PRQ #### [facility] [address] [place] [address] Dr. Jerry Samuel MCHC (RBC) [Mass/Vol] 33.6 g/dL Normal 29.9-35.2 [facility] Comment on above: Performed By: #### R PRQ #### [facility] [address] [place] [address] Dr. Jerry Samuel MCV (RBC) [Entitic vol] 86.2 fL Normal 81.0-99.0 [facility] Comment on above: Performed By: #### R PRQ #### [facility] [address] [place] [address] Dr. Jerry Samuel MONO # 0.5 103/ul Normal 0.3-0.8 [facility] Comment on above: Performed By: #### R PRQ #### [facility] [address] [place] [address] Dr. Jerry Samuel Monocytes/100 WBC (Bld) 6.7 % Normal 1.7-12.0 [facility] Comment on above: Performed By: #### R PRQ #### [facility] [address] [place] [address] Dr. Jerry Samuel NEUT # 4.9 103/ul Normal 1.4-6.5 [facility] Comment on above: Performed By: #### R PRQ #### [facility] [address] [place] [address] Dr. Jerry Samuel Neutrophils/100 WBC (Bld) 65.3 % Normal 43.0-75.0 [facility] Comment on above: Performed By: #### R PRQ #### [facility] [address] [place] [address] Dr. Jerry Samuel Platelet mean volume (Bld) [Entitic vol] 10.0 fL Normal 9.5-13.5 [facility] Comment on above: Performed By: #### R PRQ #### [facility] [address] [address] [address] Jerry Samuel PLT 218 103/ul Normal 150-450 [facility] Comment on above: Performed By: #### R PRQ #### [facility] [address] [address] [address] Jerry Samuel RBC 4.07 106/ul Critically low 4.20-5.40 [facility] Comment on above: Performed By: #### R PRQ #### [facility] [address] [address] [address] Jerry Samuel WBC 7.5 103/ul Normal 4.0-11.0 [facility] Comment on above: Performed By: #### R PRQ #### [facility] [address] [place] [address] Dr. Jerry Samuel CULTURE URINEon 04-04-2022 CULTURE URINE Culture Observations : NO GROWTH. Normal [facility] Comment on above: Performed By: #### N BOX #### [facility] [address] [place] [address] Dr. Jerry Samuel GLYCOHEMOGLOBIN A1Con 2021 ADA RECOMMENDATION SEE BELOW Normal [facility] Comment on above: Result Comment: ADA RECOMMENDED LIMIT 4.0 - 6.0 ADA THERAPEUTIC TARGET < 7.0 ACTION SUGGESTED > 7.0 Performed By: #### N BOX #### [facility] [address] [place] [address] Dr. Jerry Samuel Glucose [Mass/Vol] 97 mg/dL Normal [facility] Comment on above: Performed By: #### N BOX #### [facility] [address] [address] [address] Jerry Samuel HbA1c (Bld) [Mass fraction] 5.0 % Normal 4.5-6.2 [facility] Comment on above: Performed By: #### N BOX #### [facility] [address] [place] [address] Dr. Jerry Samuel TYPE AND SCREENon 04-04-2022 TYPE AND SCREEN Negative Normal [facility] Comment on above: Performed By: #### N BOX #### [facility] [address] [place] [address] Dr. Jerry Samuel US PREG TVon 04-04-2022 [...] EDITH WILLIS Date: 2022-04-04 16:13 Normal [facility] PREG QUANT HCGon 03-07-2022 HCG QUANT 2201 mIU/mL Normal [facility] Comment on above: Performed By: #### R PRQ #### [facility] [address] [place] [address] Dr. Jerry Samuel HCG RANGE SEE BELOW Normal [facility] Comment on above: Result Comment: 5-50 0.2-1 WEEK 50-500 1-2 WEEKS 100-5,000 2-3 WEEKS 500-10,000 3-4 WEEKS 1,000-50,000 4-5 WEEKS 10,000-100,000 5-6 WEEKS 15,000-200,000 6-8 WEEKS 10,000-100,000 2-3 MONTHS Performed By: #### R PRQ #### [facility] [address] [place] [address] Dr. Jerry Samuel PREG QUANT HCGon 03-05-2022 HCG QUANT 820 mIU/mL Normal [facility] Comment on above: Performed By: #### R PRQ #### [facility] [address] [place] [address] Dr. Jerry Samuel HCG RANGE SEE BELOW Normal [facility] Comment on above: Result Comment: 5-50 0.2-1 WEEK 50-500 1-2 WEEKS 100-5,000 2-3 WEEKS 500-10,000 3-4 WEEKS 1,000-50,000 4-5 WEEKS 10,000-100,000 5-6 WEEKS 15,000-200,000 6-8 WEEKS 10,000-100,000 2-3 MONTHS Performed By: #### R PRQ #### [facility] [address] [place] [address] Dr. Jerry Samuel PAP ACOG PANEL 2: 21 to 29on 02-21-2022 . . Normal [facility] Comment on above: Performed By: #### R PRQ #### [facility] [address] [place] [address] Dr. Jerry Samuel Age Gdln ACOG Testing - [facility] Comment on above: Performed By: #### R PRQ #### [facility] [address] [place] [address] Dr. Jerry Samuel DIAGNOSIS: Comment [facility] Comment on above: Result Comment: NEGA TIVE FOR INTRAEPITHELIAL LESION OR MALIGNANCY. SPECIMEN REPROCESSED FOR INTERPRETATION. Performed By: #### R PRQ #### [facility] [address] [place] [address] Dr. Jerry Samuel Methodology: Comment [facility] Comment on above: Result Comment: This liquid based ThinPrep(R) pap test was screened with the use of an image guided system. Performed By: #### R PRQ #### [facility] [address] [place] [address] Dr. Jerry Samuel Note: Comment [facility] Comment on above: Result Comment: The Pap smear is a screening test designed to aid in the detection of premalignant and malignant conditions of the uterine cervix. It is not a diagnostic procedure and should not be used as the sole means of detecting cervical cancer. Both false-positive and false-negative reports do occur. . Performed By: #### R PRQ #### [facility] [address] [place] [address] Dr. Jerry Samuel Performed by: Comment [facility] Comment on above: Result Comment: Anders Roman, Ore Bridge Operator (ASCP) Performed By: #### R PRQ #### [facility] [address] [place] [address] Dr. Jerry Samuel Reflex Criteria: Comment Normal [facility] Comment on above: Result Comment: The HPV DNA reflex criteria were not met with this specimen result therefore, no HPV testing was performed. . Performed By: #### R PRQ #### [facility] [address] [place] [address] Dr. Jerry Samuel Specimen adequacy: Comment Normal [facility] Comment on above: Result Comment: Sati sfactory for evaluation. Endocervical and/or squamous metaplastic cells (endocervical component) are present. Performed By: #### R PRQ #### [facility] [address] [place] [address] Dr. Jerry Samuel US PELVIS AND TRANSVAGon [...] EDITH WILLIS Date: 2022-02-13 14:34 Normal [facility] CBC AUTO DIFFon 02-12-2022 BASO # 0.0 103/ul Normal 0.0-0.1 [facility] Comment on above: Performed By: #### C BC #### [facility] [address] [place] [address] Dr. Jerry Samuel Basophils/100 WBC (Bld) 0.6 % Normal 0.2-2.0 [facility] Comment on above: Performed By: #### C BC #### [facility] [address] [place] [address] Dr. Jerry Samuel EO # 0.1 103/ul Normal 0.0-0.7 [facility] Comment on above: Performed By: #### C BC #### [facility] [address] [place] [address] Dr. Jerry Samuel Eosinophils/100 WBC (Bld) 1.2 % Normal 0.9-7.0 [facility] Comment on above: Performed By: #### C BC #### [facility] [address] [place] [address] Dr. Jerry Samuel Erythrocyte distribution width (RBC) [Ratio] 11.9 % Normal 11.0-15.0 [facility] Comment on above: Performed By: #### C BC #### [facility] [address] [place] [address] Dr. Jerry Samuel Hematocrit (Bld) [Volume fraction] 39.1 % Normal 36.0-48.0 [facility] Comment on above: Performed By: #### C BC #### [facility] [address] [place] [address] Dr. Jerry Samuel Hemoglobin (Bld) [Mass/Vol] 13.0 g/dL Normal 12.0-16.0 [facility] Comment on above: Performed By: #### C BC #### [facility] [address] [place] [address] Dr. Jerry Samuel IG # 0.01 10e3/ul Normal 0.00-0.03 [facility] Comment on above: Performed By: #### C BC #### [facility] [address] [place] [address] Dr. Jerry Samuel IG % 0.2 % Normal 0.0-0.5 [facility] Comment on above: Performed By: #### C BC #### [facility] [address] [place] [address] Dr. Jerry Samuel LYMPH # 2.4 103/ul Normal 1.2-3.8 [facility] Comment on above: Performed By: #### C BC #### [facility] [address] [place] [address] Dr. Jerry Samuel Lymphocytes/100 WBC (Bld) 37.7 % Normal 20.5-60.0 [facility] Comment on above: Performed By: #### C BC #### [facility] [address] [place] [address] Dr. Jerry Samuel MANUAL DIFF REQ NO Normal [facility] Comment on above: Performed By: #### C BC #### [facility] [address] [place] [address] Dr. Jerry Samuel MCH (RBC) [Entitic mass] 29.2 pg Normal 26.7-34.0 [facility] Comment on above: Performed By: #### C BC #### [facility] [address] [place] [address] Dr. Jerry Samuel MCHC (RBC) [Mass/Vol] 33.2 g/dL Normal 29.9-35.2 [facility] Comment on above: Performed By: #### C BC #### [facility] [address] [place] [address] Dr. Jerry Samuel MCV (RBC) [Entitic vol] 87.9 fL Normal 81.0-99.0 [facility] Comment on above: Performed By: #### C BC #### [facility] [address] [place] [address] Dr. Jerry Samuel MONO # 0.4 103/ul Normal 0.3-0.8 [facility] Comment on above: Performed By: #### C BC #### [facility] [address] [place] [address] Dr. Jerry Samuel Monocytes/100 WBC (Bld) 5.9 % Normal 1.7-12.0 [facility] Comment on above: Performed By: #### C BC #### [facility] [address] [place] [address] Dr. Jerry Samuel NEUT # 3.5 103/ul Normal 1.4-6.5 [facility] Comment on above: Performed By: #### C BC #### [facility] [address] [place] [address] Dr. Jerry Samuel Neutrophils/100 WBC (Bld) 54.4 % Normal 43.0-75.0 [facility] Comment on above: Performed By: #### C BC #### [facility] [address] [place] [address] Dr. Jerry Samuel Platelet mean volume (Bld) [Entitic vol] 9.9 fL Normal 9.5-13.5 [facility] Comment on above: Performed By: #### C BC #### [facility] [address] [place] [address] Dr. Jerry Samuel PLT 229 103/ul Normal 150-450 [facility] Comment on above: Performed By: #### C BC #### [facility] [address] [place] [address] Dr. Jerry Samuel RBC 4.45 106/ul Normal 4.20-5.40 [facility] Comment on above: Performed By: #### C BC #### [facility] [address] [place] [address] Dr. Jerry Samuel WBC 6.5 103/ul Normal 4.0-11.0 [facility] Comment on above: Performed By: #### C BC #### [facility] [address] [place] [address] Dr. Jerry Samuel FREE T4on 02-12-2022 Free T4 [Mass/Vol] 0.99 ng/dL Normal 0.76-1.46 [facility] Comment on above: Performed By: #### R PRQ #### [facility] [address] [place] [address] Dr. Jerry Samuel GLYCOHEMOGLOBIN A1Con 2021 ADA RECOMMENDATION SEE BELOW Normal [facility] Comment on above: Result Comment: ADA RECOMMENDED LIMIT 4.0 - 6.0 ADA THERAPEUTIC TARGET < 7.0 ACTION SUGGESTED > 7.0 Performed By: #### R PRQ #### [facility] [address] [place] [address] Dr. Jerry Samuel Glucose [Mass/Vol] 103 mg/dL Normal [facility] Comment on above: Performed By: #### R PRQ #### [facility] [address] [place] [address] Dr. Jerry Samuel HbA1c (Bld) [Mass fraction] 5.2 % Normal 4.5-6.2 [facility] Comment on above: Performed By: #### R PRQ #### [facility] [address] [place] [address] Dr. Jerry Samuel PROTIMEon 02-12-2022 INR Coag (PPP) [Relative time] 1.00 {INR} Normal [facility] Comment on above: Performed By: #### N BOX #### [facility] [address] [place] [address] Dr. Jerry Samuel INR GUIDELINES SEE BELOW Normal [facility] Comment on above: Result Comment: SACHA RED INR: 2.0 - 3.0 CONDITIONS NOT LISTED BELOW 2.5 - 3.5 FOR PROSTHETIC HEART VALVE REPLACEMENT 2.5 - 3.5 RECURRENT THROMBOSIS Performed By: #### N BOX #### [facility] [address] [place] [address] Dr. Jerry Samuel PT Coag (PPP) [Time] 10.8 s Normal 9.0-11.6 [facility] Comment on above: Performed By: #### N BOX #### [facility] [address] [place] [address] Dr. Jerry Samuel PTTon 02-12-2022 aPTT Coag (Bld) [Time] 27.8 s Normal 22.3-36.2 [facility] Comment on above: Performed By: #### N BOX #### [facility] [address] [place] [address] Dr. Jerry Samuel TSHon 02-12-2022 TSH 1.741 uIU/mL Normal 0.358-3.740 [facility] Comment on above: Performed By: #### T SH #### [facility] [address] [place] [address] Dr. Jerry Samuel Outside Recordson 11-20-2021 Outside Records [id number]#1.00OTG TIFF Normal [facility] Outside Recordson 11-16-2021 Outside Records [id number]#1.00OT GTIFF Normal [facility] HCG,Urineon 02-22-2021 Beta HCG ( test) Ql (U) Negative Normal [facility] Comment on above: Result Comment: PERF ORMED BY: [place] [address] PATHOLOGIST LITHOGRAPH PRESS OPERATOR TINWARE PRIYA WHITE M.D. Performed By: #### U HCG #### [id number] [facility] [place] [facility] 02-22-2021 L ---- Specimen: [id number] Received: 02/23/21 Status: DRE Elizabeth Num: [id number] Spec Type: Surgical Subm Dr: Edith Cagle Jr, Tissues: A Duodenum - Biopsy (DUODENUM BX) B Stomach - Biopsy/Polyp (ANTRUM BX) C Colon Biopsy (RANDOM COLON) Procedures: HE Stain/6, Gross/Micro L4/3 Patient Age/Sex Location Account Attending Physician Will Shay Jose Luis / [id number] Edith Cagle Jr, DO SPEC NUM: [id number] RECD: 02/23/21 STATUS: DRE ELIZABETH NUM: [id number] CASIMIRO: 02/22/21- DR: Edith Cagle Jr, DO ENTERED: 02/23/[address]: ANITA TYPE: Surgical DEPT: S ENTERED BY: [id number] RECV BY: [id number] ORDERED: HE Stain/6, Gross/Micro L4/3 ORDERED: HE [...] in one cassette labeled B1. (SM/YJ) Specimen: [id number] Received: 02/23/21 Status: DRE Elizabeth Num: [id number] Spec Type: Surgical Subm Dr: Edith Cagle Jr, DO Tissues: A Duodenum - Biopsy (DUODENUM BX) B Stomach - Biopsy/Polyp (ANTRUM BX) C Colon Biopsy (RANDOM COLON) Procedures: HE Stain/6, Gross/Micro L4/3 Patient: LauritaNenomaria e Amaya [id number] (Continued) Specimen: Received: 02/23/21 (Continued) Gross Description (Continued) Signed (signature on file) Gail Crockett MD 02/26/21 1601 Specimen: [id number] Received: 02/23/21 Status: DRE Elizabeth Num: [id number] Spec Type: Surgical Subm Dr: Edith Cagle Jr, DO Tissues: A Duodenum - Biopsy (DUODENUM BX) B Stomach - Biopsy/Polyp (ANTRUM BX) C Colon Biopsy (RANDOM COLON) Procedures: HE Stain/6, Gross/Micro L4/3 Patient: Will Shay [id number] (Continued) Specimen: [id number] Received: 02/23/21 (Continued) Gross Description (Continued) C. [...] characteristics were determined by the Laboratory of [facility]. Immunohistochemistry assays have not been validated on decalcified tissue. Results should be interpreted with caution given the possibility of false negative results on decalcified specimens. They have not been cleared by the US Food and Drug Administration. The FDA has determined that such clearance or approval is not necessary. CPT Codes 56957?3, 56196 (more content not included)... Normal [facility] COVID[facility]19 [facility] SARS-CoV-2 (COVID-19) RNA ELINOR+probe Ql (Unsp spec) Negative Normal Negative [facility] Comment on above: Order Comment: Healt hcare Worker?: N Result Comment: Testing for SARS-CoV-2 by RT-PCR This test was developed and its performance characteristics determined by [employer], [employer]) and validated at the [facility]. This test has not been FDA [...] is terminated or revoked sooner. PERFORMED BY: [facility] [address] PATHOLOGIST LITHOGRAPH PRESS OPERATOR TINWARE PRIYA WHITE M.D. Performed By: #### C OVID 19 [facility] #### [address] Vital Signs Date Time Vital Sign Value Performing Clinician Facility 03-26-2023 13:45-0500 Body height 164.47 cm Ben Rose Other [facility] Other 03-26-2023 13:45-0500 Body mass index (BMI) [Ratio] 29.6 kg/m2 Ben Rose Other [facility] Other 03-26-2023 13:45-0500 Body weight 80.06 kg Ben Rose Other [facility] Other 03-26-2023 13:45-0500 Diastolic blood pressure 74 mm[Hg] Ben Rose Other [facility] Other 03-26-2023 13:45-0500 Systolic blood pressure 120 mm[Hg] Ben Rose Other [facility] Other 06-14-2022 17:07-0500 Body weight 79.[address] EDDIE VALIENTE . [facility] Comment on above: Performed By: #### RPRQ #### [facility] [address] [place] [address] Dr. Jerry Samuel 03-08-2022 11:15-0500 Body height 164.47 cm Ben Rose Other [facility] Other 03-08-2022 11:15-0500 Body mass index (BMI) [Ratio] 29.01 kg/m2 Ben Rose Other [facility] Other 03-08-2022 11:15-0500 Body weight 78.47 kg Ben Rose Other [facility] Other 03-08-2022 11:15-0500 Diastolic blood pressure 73 mm[Hg] Ben Rose Other [facility] Other 03-08-2022 11:15-0500 Systolic blood pressure 113 mm[Hg] Ben Rose Other [facility] Other Encounters Encounter Date Encounter Type Care Provider Facility Start: 03-27-2023 End: 03-27-2023 ambulatory GENTRY KIM Not Available Start: 03-26-2023 End: 03-26-2023 ambulatory Ben Rose Other [facility] Other Start: 03-26-2023 Patient encounter procedure Ben [facility] Start: 03-05-2023 End: 03-05-2023 ambulatory EDDIE VALIENTE Not Available Start: 01-24-2023 End: 01-24-2023 ambulatory Ben Rose Other [facility] Other Start: 01-24-2023 Telephone encounter Ben FORD [...] 03-08-2022 End: 03-08-2022 ambulatory Ben Rose Other [facility] Other Start: 03-08-2022 Patient encounter procedure Ben [...] 11-06-2021 End: 11-06-2021 ambulatory Angeles A Mikael REROLLER HAND-C Facility:[facility] Start: 11-05-2021 End: 11-06-2021 ambulatory Angeles A Mikael REROLLER HAND-C Facility:[facility] Immunizations Immunization Date Immunization Notes Care Provider Michael albright 11-08-2014 human papilloma viru s vaccine, quadrivalent Ben Rose Other [facility] Other Payers Date Payer Category Payer Unknown [id number] 2021 Unknown [id number] 1995 Unknown [id number] 2.16.84 0.1.522245.3.579.2.718 1996 Unknown [id number] 2.16.8 40.1.266574.3.579.2.718 1996 Unknown [id number] 2.16.84 0.1.460224.3.579.2.593 1996 Unknown [id number] 2.16.84 0.1.853307.3.579.2.593 1996 Unknown [id number] 2.16.84 0.1.250855.3.579.2.593 1996 Unknown [id number] 2.16.84 0.1.201530.3.579.2.593 1996 Unknown [id number] 2.16.84 0.1.104205.3.579.2.593 1996 Unknown [id number] 2.16.84 0.1.951324.3.579.2.593 1996 Unknown [id number] 2.16.84 0.1.653327.3.579.2.593 1996 Unknown [id number] 2.16.84 0.1.054488.3.579.2.593 1996 Unknown [id number] 2.16.84 0.1.175847.3.579.2.593 1996 Unknown [id number] 2.16.84 0.1.376971.3.579.2.593 1996 Unknown [id number] 2.16.84 0.1.173542.3.579.2.593 1996 Unknown [id number] 2.16.84 0.1.274227.3.579.2.593 1996 Unknown [id number] 2.16.84 0.1.978268.3.579.2.593 1996 Unknown [id number] 2.16.84 0.1.546746.3.579.2.593 1996 Unknown [id number] 2.16.84 0.1.757062.3.579.2.593 1996 Unknown [id number] 2.16.840 .1.050360.3.579.2.1259 1996 Unknown [id number] 2.16.840 .1.286990.3.579.2.1259 1959 Self-pay 1959 Unknown [id number] 2.16. 840.1.560969.19 1959 Unknown [id number] 2. 16.840.1.884952.19 1959 Unknown [id number] 1959 Unknown [id number] Unknown [id number] 2.16.84 0.1.377751.3.579.2.593 Social History Date Type Detail Facility Unknown if ever smoked [facility] Other Sex Assigned At Sex Assigned At [facility] th [facility] Other Evaluation note 03-26-2023 Note Date & [...] call office if she has no improvement [facility] Other Evaluation note 01-24-2023 Note Date & Type Note Facility 01-24-2023 Evaluation note Encounter Date Diagnosis Assessment Notes Jan, Epigastric burning sensation (ICD-10 - R10.13) [facility] Other Evaluation note 03-08-2022 Note Date & [...] DAILY CONTINUE LEVSIN NEEDED RTO 1 YR [facility] Other History general Narrative - Reported Note Date & Type Note Facility History general Narrative - Reported Type Medical History scoliosis Medical History hx of mono Surgical History [place] teeth x4 [facility] Other History general Narrative - Reported Note Date & Type Note Facility History general Narrative - Reported Type Medical History scoliosis Medical History hx of mono Surgical History [employer] [place] teeth x4 Surgical History C section Organic To Go [facility] Other Summary Purpose Family History No Family History Records FoundNo Family History Records FoundNo Family History Records FoundNo Family History Records Found Advance Directives No Advanced Directives Records FoundNo Advanced Directives Records FoundNo Advanced Directives Records FoundNo Advanced Directives Records Found Additional Source Comments INFORMATION SOURCE (unrecogn ized section and content) DATE CREATED AUTHOR 02/27/2021 [facility] DATE CREATED AUTHOR AUTHOR'S ORGANIZ ATION 07/24/2022 [facility] DATE CREATED AUTHOR AUTHOR'S ORGANIZ ATION 08/08/2022 [facility] DATE CREATED AUTHOR AUTHOR'S ORGANIZ ATION 03/28/2023 [facility] EPIC REASON FOR VISIT (unrecogniz ed [...] BE BASED ON THE PRIMARY CLINICAL RECORDS. [employer] provides no warranty or guarantee of the accuracy or completeness of information in this document.
--- NOTE | 2023-11-13 09:17 | ECG_ITS ---
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
--- NOTE | 2023-11-13 09:22 | ED.DIZZY1 ---
HPI - Dizziness General Chief Complaint: Dizziness Stated Complaint: DIZZY NEASUA Time Seen by Provider: 11/13/23 09:03 Source: patient Mode of arrival: Wheelchair Limitations: no limitations History of Present Illness HPI Narrative: 28-year-old female presents for dizziness. It started this morning. She feels like she is spinning and prefers to keep her eyes closed. This has never happened to her before. She is 4 weeks , no bleeding or abdominal pain. No recent fever cough or vomiting. Related Data Home Medications ?Medication ?Instructions ?Recorded ?Confirmed citalopram 20 mg tablet (Celexa) 10 mg PO DAILY 10/11/22 11/08/22 pantoprazole 40 mg tablet,delayed 40 mg PO DAILY 10/11/22 11/08/22 release vit no.95-ferrous 1 tab PO DAILY 10/15/22 11/08/22 fumarate 28 mg-folic acid 800 mcg tablet () Previous Rx's ?Medication ?Instructions ?Recorded meclizine 25 mg tablet 25 mg PO QID PRN dizziness #20 tabs 11/13/23 ondansetron 4 mg disintegrating 4 mg PO Q6H PRN nausea and 11/13/23 tablet vomiting #20 tabs Allergies Allergy/AdvReac Type Severity Reaction Status Date / Time Penicillins Allergy Verified 11/08/22 05:18 Review of Systems ROS Narrative A ten point review of systems is negative except as noted above. [facility] Medical History (Updated 11/13/23 @ 10:54 by Richard Herrera MD) delivery delivered ?O82 - Encounter for delivery without indication (ICD-10) Gastritis ?K29.70 - Gastritis, unspecified, without bleeding (ICD-10) Depression ?F32.A - Depression, unspecified (ICD-10) Anxiety ?F41.9 - Anxiety disorder, unspecified (ICD-10) Family History (Updated 11/08/22 @ 05:12 by Ivan Silverman) Grandmother Family history of cancer Family history of diabetes mellitus Grandfather Family history of myocardial infarction Other Family history of stroke Social History (Updated 11/08/22 @ 05:14 by Ivan Silverman) Within the past year, how often did you have a drink containing alcohol: never Within the past year, how often did you have six or more drinks on one occasion: never Score interpretation: A score less than 3 is consistent with normal alcohol consumption. Smoking status: Never smoker Non-prescribed substance use: denies use Highest level of school completed/degree received: Associate degree: academic program Are you now , , , , never or living with a partner: In a typical week, how many times do you talk on the telephone with family, friends, or neighbors: 3 or more times per week How often do you get together with friends or relatives: twice per week How often do you attend restorationist or oriental orthodox services: 4 or more times per year Do you belong to any clubs or organizations such as restorationist groups unions, fraternal or athletic groups, or school groups: no Total score: 3 Score interpretation: A score of greater than or equal to 2 indicates the lowest level of social isolation. Little interest or pleasure in doing things: not at all Feeling down, depressed, or hopeless: not at all Feel stressed/tense/nervous/anxious/difficulty sleeping: only a little Do you think of yourself as: straight/heterosexual Gender Identity: female Exam Narrative Exam Narrative: Nurses note and vital signs reviewed and patient is not hypoxic. General: The patient appears well and in no apparent distress. Patient is resting comfortably on cart. Skin: Warm, dry, pallor noted. There is no rash noted. Head: Normocephalic, atraumatic Eye: Normal conjunctiva, no drainage Ears, Nose, Mouth, and Throat: oral mucosa is moist. Nares patent. Cardiovascular: Regular Rate and Rhythm Respiratory: Patient is in no distress, no accessory muscle use, lungs are clear to auscultation, no wheezing, rales or rhonchi Back: non-tender GI: Soft and nontender Musculoskeletal: The patient has no evidence of calf tenderness, no pitting edema, symmetrical pulses noted bilaterally Neurological: A&O x4, normal speech, upper and lower extremity strength intact Psychiatric: Cooperative Constitutional Vital Signs, click to edit/add: Last Vital Signs Temp 97.7 F 11/13/23 09:02 Pulse 85 11/13/23 09:02 Resp 17 11/13/23 09:02 BP 118/89 11/13/23 09:02 Pulse Ox 98 11/13/23 09:02 O2 Del Method Room Air 11/13/23 09:02 Course Vital Signs Vital signs: Vital Signs Temperature 97.7 F 11/13/23 09:02 Pulse Rate 85 11/13/23 09:02 Respiratory Rate 17 11/13/23 09:02 Blood Pressure 118/89 11/13/23 09:02 Pulse Oximetry 98 11/13/23 09:02 Oxygen Delivery Method Room Air 11/13/23 09:02 Temperature 97.7 F 11/13/23 09:02 Pulse Rate 85 11/13/23 09:02 Respiratory Rate 17 11/13/23 09:02 Blood Pressure 118/89 11/13/23 09:02 Pulse Oximetry 98 11/13/23 09:02 Oxygen Delivery Method Room Air 11/13/23 09:02 MDM - Dizziness MDM Narrative Medical decision making narrative: Laboratory analysis is negative. She feels much better after being given Antivert and was given Zofran as well. She will be discharged home on Antivert and Zofran. Treatment diagnosis and follow-up were discussed with the patient. Her employee relations representative is being contacted. Differential Diagnosis Differential diagnosis: Likely benign paroxysmal positional vertigo and other (Dehydration, dysrhythmia) Lab Data Attestation: I reviewed the patient's lab results. Labs: Lab Results 11/13/23 Range/Units 09:14 WBC 5.2 (4.0-11.0) 10^3/uL RBC 4.51 (4.20-5.40) 10^6/uL Hgb 12.4 (12.0-16.0) g/dL Hct 38.5 (36.0-48.0) % MCV 85.4 (81.0-99.0) fL MCH 27.5 (26.7-34.0) pg MCHC 32.2 (29.9-35.2) g/dL RDW 13.0 (11.0-15.0) % Plt Count 211 (150-450) 10^3/uL MPV 10.7 (9.5-13.5) fL Neut % (Auto) 53.6 (43.0-75.0) % Lymph % (Auto) 35.7 (20.5-60.0) % [place] % (Auto) 8.5 (1.7-12.0) % Eos % (Auto) 1.2 (0.9-7.0) % Baso % (Auto) 0.6 (0.2-2.0) % Neut # (Auto) 2.8 (1.4-6.5) 10^3/uL Lymph # (Auto) 1.9 (1.2-3.8) 10^3/uL [place] # (Auto) 0.4 (0.3-0.8) 10^3/uL Eos # (Auto) 0.1 (0.0-0.7) 10^3/uL Baso # (Auto) 0.0 (0.0-0.1) 10^3/uL Abs Immat Gran (auto) 0.02 (0.00-0.03) 10^3/uL Imm/Tot Granulo (auto) 0.4 (0.0-0.5) % Sodium 135 L (136-145) mmol/L Potassium 3.5 (3.5-5.1) mmol/L Chloride 102 (98-107) mmol/L Carbon Dioxide 25.5 (21.0-32.0) mmol/L Anion Gap 11.0 BUN 8.0 (7.0-18.0) mg/dL Creatinine 0.55 (0.55-1.02) mg/dL Est GFR ( Amer) >60 (>=60) Est GFR (Non-Af Amer) >60 (>=60) BUN/Creatinine Ratio 14.5 Glucose 119 H (74-106) mg/dL Calcium 8.7 (8.5-10.1) mg/dL ECG Data Attestation: I personally reviewed and interpreted this ECG as follows: (EKG on my interpretation shows normal sinus rhythm with a rate of 86.) Discharge Plan Discharge Stand Alone Forms: Portal Instructions Chief Complaint: Dizziness Clinical Impression: Vertigo Patient Disposition: Home, Self-Care Time of Disposition Decision: 10:54 Condition: Good Mode of Transportation: Private Vehicle Prescriptions / Home Meds: New meclizine 25 mg tablet 25 mg PO QID PRN (Reason: dizziness) Qty: 20 0RF ondansetron 4 mg tablet,disintegrating 4 mg PO Q6H PRN (Reason: nausea and vomiting) Qty: 20 0RF No Action pantoprazole 40 mg tablet,delayed release (DR/EC) 40 mg PO DAILY citalopram [Celexa] 20 mg tablet 10 mg PO DAILY PNV cmb#95-ferrous fumarate-FA [] 28 mg iron- 800 mcg tablet 1 tab PO DAILY Print Language: Mohawk Instructions: Vertigo (ED) Referrals: Physician,Non-Staff, MD [Primary Care Provider] - 1 week
--- NOTE | 2023-11-13 09:22 | PC.NURSE ---
patient c/o dizziness, room spinning, that began about 1 hour after waking up when she stood up from eating breakfast. patient noted to be pale and nauseated.
[2023-11-13] MEDS: MECLIZINE HCL 12.5 MG TABLET 25 MG PO (09:31)
[2023-11-13] MEDS: 0.9 % SODIUM CHLORIDE 1,000 ML 1000 ML IV (09:31)
[2023-11-13] MEDS: ONDANSETRON PF 4 MG/2 ML VIAL IV (09:32)
[2023-11-13 09:42] LABS: Basophils Percent Auto 0.6 % (0.2-2.0); Eosinophils Absolute Auto 0.1 10^3/uL (0.0-0.7); Eosinophils Percent Auto 1.2 % (0.9-7.0); Hematocrit 38.5 % (36.0-48.0); Hemoglobin 12.4 g/dL (12.0-16.0); Immature Granulocytes Abs Auto 0.02 10^3/uL (0.00-0.03); Immature Granulocytes Pct Auto 0.4 % (0.0-0.5); Lymphocytes Absolute Auto 1.9 10^3/uL (1.2-3.8); Lymphocytes Percent Auto 35.7 % (20.5-60.0); Mean Corpuscular HGB Conc 32.2 g/dL (29.9-35.2); Mean Corpuscular Hemoglobin 27.5 pg (26.7-34.0); Mean Corpuscular Volume 85.4 fL (81.0-99.0); Mean Platelet Volume 10.7 fL (9.5-13.5); Monocytes Absolute Auto 0.4 10^3/uL (0.3-0.8); Monocytes Percent Auto 8.5 % (1.7-12.0); Neutrophils Absolute Auto 2.8 10^3/uL (1.4-6.5); Neutrophils Percent Auto 53.6 % (43.0-75.0); Platelet Count 211 10^3/uL (150-450); Red Blood Count 4.51 10^6/uL (4.20-5.40); White Blood Count 5.2 10^3/uL (4.0-11.0)
[2023-11-13 09:55] LABS: BUN Creatinine Ratio 14.5; Calcium 8.7 mg/dL (8.5-10.1); Carbon Dioxide 25.5 mmol/L (21.0-32.0); Chloride 102 mmol/L (98-107); Estimated GFR (African America >60 (>=60); Estimated GFR (Non-African Ame >60 (>=60); Glucose 119 mg/dL (74-106); Potassium 3.5 mmol/L (3.5-5.1); Sodium 135 mmol/L (136-145)
== END 2023-11-13 11:33 | disposition home or self-care (01) ==
PROVIDERS: Emergency Provider Emergency Medicine
DX: O26.891 Other specified pregnancy related conditions, first trimester (principal); R42 Dizziness and giddiness; Z3A.01 Less than 8 weeks gestation of pregnancy
CPT/HCPCS: 36415; 80048; 85025; 93005; 96361; 96374; 99284; J2405

== ENCOUNTER 2023-11-14 15:15 | Outpatient (RCR) | payer BC, SELFPAY ==
[2023-11-14 16:15] LABS: HCG Quantitative 606 mIU/mL
== END 2023-12-06 23:59 | disposition home or self-care (01) ==
LOC: LAB 15:15
PROVIDERS: Visit Provider Obstetrics & Gynecology
DX: N92.6 Irregular menstruation, unspecified (principal)
CPT/HCPCS: 36415; 84702

== ENCOUNTER 2023-12-12 08:32 | Outpatient (OUT) | payer BC, SELFPAY ==
--- NOTE | 2023-12-12 08:34 | US_ITS ---
[address] [address] Patient Name: CARLOS ADAMS MRN: [id number] date: 1995 Sex: F Assigned Patient Location: [facility] Current Patient Location: [facility] Accession/Order Number: [id number] Exam Date: 12/12/2023 08:34 Report Date: 12/12/2023 11:37 At the request of: EDDIE VALIENTE Procedure: US OB transvaginal EXAMINATION: US OB transvaginal HISTORY: MISSED MENSES COMPARISON: No relevant comparison available. FINDINGS: GESTATIONAL SAC: Present and normal appearing. YOLK SAC: Present and normal appearing. POLE: Present and normal appearing. CARDIAC: Present. UTERUS: Normal size and appearance. OVARIES: Right: Normal. Left: Normal. CERVIX: 3.6 cm in length and closed. CUL-DE-SAC: Normal. OTHER: None. AGE BY LMP: 8 weeks 4 days ROLANDO BY LMP: 07/19/2024 AGE BY US CRL: 8 weeks 4 days ROLANDO BY US CRL: 07/19/2024 US/US OB transvaginal IMPRESSION: 1. Single live intrauterine . Electronically authenticated by: ABRIL SCANLON Date: 12/12/2023 11:37
--- OUTSIDE RECORDS SUMMARY | 2023-12-12 08:37 | XMS_ITS | CCD ---
Author Organization [facility] Care Team Providers Care Adolescent Specialist Name Role Phone Ben Rose Unavailable Mikael RENT AND HOUSING INVESTIGATOR-C, [place] A Admitting Unavailable Mikael RENT AND HOUSING INVESTIGATOR-C, [place] A Attending Unavailable Mikael RENT AND HOUSING INVESTIGATOR-C, [place] A Primary Care Unavailable Mikael RENT AND HOUSING INVESTIGATOR-C, [place] A Attending Unavailable Mikael RENT AND HOUSING INVESTIGATOR-C, [place] A Primary Care Unavailable ROCCO ., [...] DR MORGAN Attending Unavailable ROCCO ., DR OMRGAN Consulting Unavailable REQUEST, DR NONE LISTED Primary Care Unavaila ble ROCCO ., DR MORGAN Admitting Unavailable SHERRON ., NORA Consulting Unavailable SHERRON ., NORA Attending Unavailable SHERRON ., NORA Admitting Unavailable MIKAEL, ANGELES Primary Care Unavailable MIKAEL, ANGELES Primary Care Unavailable ROCCO ., DR MORGAN Attending Unavailable [place], DR EDITH Corey Consulting Unavailable ROCCO ., DR MORGAN Admitting Unavailable ROCCO ., DR MORGAN Consulting Unavailable ROCCO ., DR MORGAN Consulting Unavailable ROCCO ., DR MORGAN Admitting Unavailable REQUEST, DR NONE LISTED Primary Care Unavaila ble ROCCO ., DR MORGAN Attending Unavailable MIKAEL, ANGELES Primary Care Unavailable ROCCO ., DR MORGAN Attending Unavailable [place], DR EDITH Corey Consulting Unavailable ROCCO ., [...] (3 sources) Penicillin G Drug Allergy Unknown [employer] Other (1 source) busPIRone; Translations: [buspirone hcl] Drug Allergy [facility] Repository (1 source) Coconut extract; Translations: [coconut] Drug Allergy [facility] Repository (1 source) Penicillins; Translations: [penicillins] Propensity to adverse reactions to drug (disorder) [facility] Repository (1 source) Amoxicillin Drug Allergy [facility] Repository (1 source) Penicillin Drug Allergy [facility] Repository Medications Current Medications Medication Drug Class(es) [...] 07-25-2022 BASO # 0.0 103/ul Normal 0.0-0.1 [facility] Comment on above: Performed By: #### C BC #### [facility] [address] [address] [address] Jerry Samuel Basophils/100 WBC (Bld) 0.3 % Normal 0.2-2.0 [facility] Comment on above: Performed By: #### C BC #### [facility] [address] [address] [address] Jerry Samuel EO # 0.1 103/ul Normal 0.0-0.7 [facility] Comment on above: Performed By: #### C BC #### [facility] [address] [address] [address] Jerry Samuel Eosinophils/100 WBC (Bld) 1.4 % Normal 0.9-7.0 [facility] Comment on above: Performed By: #### C BC #### [facility] [address] [address] [address] Jerry Samuel Erythrocyte distribution width (RBC) [Ratio] 13.2 % Normal 11.0-15.0 [facility] Comment on above: Performed By: #### C BC #### [facility] [address] [address] [address] Jerry Samuel Hematocrit (Bld) [Volume fraction] 33.9 % Critically low 36.0-48.0 [facility] Comment on above: Performed By: #### C BC #### [facility] [address] [address] [address] Jerry Samuel Hemoglobin (Bld) [Mass/Vol] 11.3 g/dL Critically low 12.0-16.0 [facility] Comment on above: Performed By: #### C BC #### [facility] [address] [address] [address] Jerry Samuel IG # 0.04 10e3/ul Critically high 0.00-0.03 [facility] Comment on above: Performed By: #### C BC #### [facility] [address] [place] [address] Dr. Jerry Samuel IG % 0.6 % Critically high 0.0-0.5 [facility] Comment on above: Performed By: #### C BC #### [facility] [address] [place] [address] Dr. Jerry Samuel LYMPH # 1.9 103/ul Normal 1.2-3.8 [facility] Comment on above: Performed By: #### C BC #### [facility] [address] [place] [address] Dr. Jerry Samuel Lymphocytes/100 WBC (Bld) 30.2 % Normal 20.5-60.0 [facility] Comment on above: Performed By: #### C BC #### [facility] [address] [place] [address] Dr. Jerry Samuel MANUAL DIFF REQ NO Normal [facility] Comment on above: Performed By: #### C BC #### [facility] [address] [place] [address] Dr. Jerry Samuel MCH (RBC) [Entitic mass] 29.9 pg Normal 26.7-34.0 [facility] Comment on above: Performed By: #### C BC #### [facility] [address] [place] [address] Dr. Jerry Samuel MCHC (RBC) [Mass/Vol] 33.3 g/dL Normal 29.9-35.2 [facility] Comment on above: Performed By: #### C BC #### [facility] [address] [place] [address] Dr. Jerry Samuel MCV (RBC) [Entitic vol] 89.7 fL Normal 81.0-99.0 [facility] Comment on above: Performed By: #### C BC #### [facility] [address] [place] [address] Dr. Jerry Samuel MONO # 0.5 103/ul Normal 0.3-0.8 [facility] Comment on above: Performed By: #### C BC #### [facility] [address] [place] [address] Dr. Jerry Samuel Monocytes/100 WBC (Bld) 7.2 % Normal 1.7-12.0 [facility] Comment on above: Performed By: #### C BC #### [facility] [address] [address] [address] Jerry Sameul NEUT # 3.8 103/ul Normal 1.4-6.5 [facility] Comment on above: Performed By: #### C BC #### [facility] [address] [place] [address] Dr. Jerry Samuel Neutrophils/100 WBC (Bld) 60.3 % Normal 43.0-75.0 [facility] Comment on above: Performed By: #### C BC #### [facility] [address] [place] [address] Dr. Jerry Samuel Platelet mean volume (Bld) [Entitic vol] 9.8 fL Normal 9.5-13.5 [facility] Comment on above: Performed By: #### C BC #### [facility] [address] [place] [address] Dr. Jerry Samuel PLT 188 103/ul Normal 150-450 [facility] Comment on above: Performed By: #### C BC #### [facility] [address] [place] [address] Dr. Jerry Samuel RBC 3.78 106/ul Critically low 4.20-5.40 [facility] Comment on above: Performed By: #### C BC #### [facility] [address] [place] [address] Dr. Jerry Samuel WBC 6.2 103/ul Normal 4.0-11.0 [facility] Comment on above: Performed By: #### C BC #### [facility] [address] [place] [address] Dr. Jerry Samuel GLUCOSE - 1HRon 07-25-2022 Glucose [Mass/Vol] 100 mg/dL Normal 74-106 [facility] Comment on above: Performed By: #### N BOX #### [facility] [address] [address] [address] Jerry Samuel US PREG ANATOMY SINGLEon [...] ABRIL SCANLON Date: 2022-07-02 13:45 Normal [facility] AFP MATERNAL FOR SPINA BIFID Aon 06-14-2022 AFP MoM 0.87 Normal [facility] Comment on above: Performed By: #### R PRQ #### [facility] [address] [address] [address] Jerry Samuel AFP Value 39.6 ng/mL Normal [facility] Comment on above: Performed By: #### R PRQ #### [facility] [address] [address] [address] Jerry Samuel AFP, Serum for Spina Bifida Report Normal [facility] Comment on above: Performed By: #### R PRQ #### [facility] [address] [address] [address] Jerry Samuel Comment Comment Normal [facility] Comment on above: Result Comment: Irina Petersen, Ph.D., [facility] Director . References: Available Upon Request. . Multiples Of Median Cutoffs For AFP Elevations Patrick 2.5 Black 2.8 IDD 2.0 Twins 4.5 Abbreviation Definitions IDD - Insulin Dep Diabetes OSBR - Open Spina Bifida Risk . For further inquiries contact [employer] at [phone]. . This test was developed and its performance characteristics determined by [employer]. It has not been cleared or approved by the Food and Drug Administration. Performed By: #### R PRQ #### [facility] [address] [place] [address] Dr. Jerry Samuel Gest Age Collection Date 18.9 weeks Normal [facility] Comment on above: Performed By: #### R PRQ #### [facility] [address] [address] [address] Jerry Samuel Gestat, Age Based on Ultrasound Normal [facility] Comment on above: Result Comment: 09.0 on 04/04/2022 Recalculations are not recommended when gestational dating by LMP and ultrasound are within 10 days. Performed By: #### R PRQ #### [facility] [address] [place] [address] Dr. Jerry Samuel Insulin Dep Diabetes No Normal [facility] Comment on above: Performed By: #### R PRQ #### [facility] [address] [address] [address] Jerry Samuel Interpretation Comment Normal [facility] Comment on above: Result Comment: Inte [...] Customer Services to discuss available options. The [employer] recommends amniocentesis be offered to women age 35 and older. Performed By: #### R PRQ #### [facility] [address] [place] [address] Dr. Jerry Samuel [age] Normal [facility] Comment on above: Performed By: #### R PRQ #### [facility] [address] [place] [address] Dr. Jerry Samuel Multiple Gestation No Normal [facility] Comment on above: Performed By: #### R PRQ #### [facility] [address] [place] [address] Dr. Jerry Samuel OS[place] [address] Normal [facility] Comment on above: Performed By: #### R PRQ #### [facility] [address] [place] [address] Dr. Jerry Samuel PDF . Normal [facility] Comment on above: Performed By: #### R PRQ #### [facility] [address] [place] [address] Dr. Jerry Samuel [facility] Comment on above: Performed By: #### R PRQ #### [facility] [address] [place] [address] Dr. Jerry Samuel Test Results: Negative Normal [facility] Comment on above: Performed By: #### R PRQ #### [facility] [address] [place] [address] Dr. Jerry Samuel CHLAMYDIA/GONOCOCCUS ELINOR (SW AB/URINE/PAPon 06-07-2022 Chlamydia trachomatis, ELINOR Negative Normal Negative [facility] Comment on above: Performed By: #### R PRQ #### [facility] [address] [place] [address] Dr. Jerry Samuel Neisseria gonorrhoeae, ELINOR Negative Normal Negative [facility] Comment on above: Performed By: #### R PRQ #### [facility] [address] [place] [address] Dr. Jerry Samuel VAGINITIS/VAGINOSIS DNA PROB Nayan 06-06-2022 Margaret species Negative Normal Negative [facility] Comment on above: Performed By: #### V AGINT #### [facility] [address] [place] [address] Dr. Jerry Samuel Gardnerella vaginalis Negative Normal Negative [facility] Comment on above: Performed By: #### V AGINT #### [facility] [address] [place] [address] Dr. Jerry Samuel Trichomonas vaginalis Negative Normal Negative [facility] Comment on above: Performed By: #### V AGINT #### [facility] [address] [place] [address] Dr. Jerry Samuel CBC AUTO DIFFon 05-26-2022 BASO # 0.0 103/ul Normal 0.0-0.1 [facility] Comment on above: Performed By: #### C BC #### [facility] [address] [place] [address] Dr. Jerry Samuel Basophils/100 WBC (Bld) 0.1 % Critically low 0.2-2.0 [facility] Comment on above: Performed By: #### C BC #### [facility] [address] [place] [address] Dr. Jerry Samuel EO # 0.0 103/ul Normal 0.0-0.7 [facility] Comment on above: Performed By: #### C BC #### [facility] [address] [place] [address] Dr. Jerry Saumel Eosinophils/100 WBC (Bld) 0.4 % Critically low 0.9-7.0 [facility] Comment on above: Performed By: #### C BC #### [facility] [address] [place] [address] Dr. Jerry Samuel Erythrocyte distribution width (RBC) [Ratio] 12.6 % Normal 11.0-15.0 [facility] Comment on above: Performed By: #### C BC #### [facility] [address] [place] [address] Dr. Jerry Samuel Hematocrit (Bld) [Volume fraction] 34.0 % Critically low 36.0-48.0 [facility] Comment on above: Performed By: #### C BC #### [facility] [address] [place] [address] Dr. Jerry Samuel Hemoglobin (Bld) [Mass/Vol] 11.6 g/dL Critically low 12.0-16.0 [facility] Comment on above: Performed By: #### C BC #### [facility] [address] [place] [address] Dr. Jerry Samuel IG # 0.03 10e3/ul Normal 0.00-0.03 [facility] Comment on above: Performed By: #### C BC #### [facility] [address] [place] [address] Dr. Jerry Samuel IG % 0.4 % Normal 0.0-0.5 [facility] Comment on above: Performed By: #### C BC #### [facility] [address] [place] [address] Dr. Jerry Samuel LYMPH # 1.1 103/ul Critically low 1.2-3.8 [facility] Comment on above: Performed By: #### C BC #### [facility] [address] [place] [address] Dr. Jerry Samuel Lymphocytes/100 WBC (Bld) 16.5 % Critically low 20.5-60.0 [facility] Comment on above: Performed By: #### C BC #### [facility] [address] [place] [address] Dr. Jerry Samuel MANUAL DIFF REQ NO Normal [facility] Comment on above: Performed By: #### C BC #### [facility] [address] [place] [address] Dr. Jerry Samuel MCH (RBC) [Entitic mass] 29.1 pg Normal 26.7-34.0 [facility] Comment on above: Performed By: #### C BC #### [facility] [address] [place] [address] Dr. Jerry Samuel MCHC (RBC) [Mass/Vol] 34.1 g/dL Normal 29.9-35.2 [facility] Comment on above: Performed By: #### C BC #### [facility] [address] [address] [address] Jerry Samuel MCV (RBC) [Entitic vol] 85.2 fL Normal 81.0-99.0 [facility] Comment on above: Performed By: #### C BC #### [facility] [address] [address] [address] Jerry Samuel MONO # 0.4 103/ul Normal 0.3-0.8 [facility] Comment on above: Performed By: #### C BC #### [facility] [address] [address] [address] Jerry Samuel Monocytes/100 WBC (Bld) 6.0 % Normal 1.7-12.0 [facility] Comment on above: Performed By: #### C BC #### [facility] [address] [address] [address] Jerry Samuel NEUT # 5.1 103/ul Normal 1.4-6.5 [facility] Comment on above: Performed By: #### C BC #### [facility] [address] [address] [address] Jerry Samuel Neutrophils/100 WBC (Bld) 76.6 % Critically high 43.0-75.0 [facility] Comment on above: Performed By: #### C BC #### [facility] [address] [address] [address] Jerry Samuel Platelet mean volume (Bld) [Entitic vol] 10.5 fL Normal 9.5-13.5 [facility] Comment on above: Performed By: #### C BC #### [facility] [address] [address] [address] Jerry Samuel PLT 207 103/ul Normal 150-450 [facility] Comment on above: Performed By: #### C BC #### [facility] [address] [address] [address] Jerry Samuel RBC 3.99 106/ul Critically low 4.20-5.40 [facility] Comment on above: Performed By: #### C BC #### [facility] [address] [place] [address] Dr. Jerry Samuel WBC 6.7 103/ul Normal 4.0-11.0 [facility] Comment on above: Performed By: #### C BC #### [facility] [address] [place] [address] Dr. Jerry Samuel ER URINE PROFILEon 3 Bilirubin Ql (U) Negative Normal NEGATIVE [facility] Comment on above: Performed By: #### E RUR #### [facility] [address] [place] [address] Dr. Jerry Samuel Clarity (U) CLEAR Normal CLEAR [facility] Comment on above: Performed By: #### E RUR #### [facility] [address] [place] [address] Dr. Jerry Samuel Color (U) LT. YELLOW Normal YELLOW [facility] Comment on above: Performed By: #### E RUR #### [facility] [address] [place] [address] Dr. Jerry Samuel ERUAHAnahy A micrscopic examina tion will be performed if indicated. Normal [facility] Comment on above: Performed By: #### E RUR #### [facility] [address] [place] [address] Dr. Jerry Samuel Glucose Ql (U) Negative Normal NEGATIVE [facility] Comment on above: Performed By: #### E RUR #### [facility] [address] [place] [address] Dr. Jerry Samuel Hemoglobin Ql (U) Negative Normal NEGATIVE [facility] Comment on above: Performed By: #### E RUR #### [facility] [address] [place] [address] Dr. Jerry Samuel Ketones Ql (U) Negative Normal NEGATIVE [facility] Comment on above: Performed By: #### E RUR #### [facility] [address] [place] [address] Dr. Jerry Samuel LEUKOCYTES Negative Normal NEGATIVE [facility] Comment on above: Performed By: #### E RUR #### [facility] [address] [place] [address] Dr. Jerry Samuel Nitrite Ql (U) Negative Normal NEGATIVE [facility] Comment on above: Performed By: #### E RUR #### [facility] [address] [place] [address] Dr. Jerry Samuel pH (U) 6.5 [pH] Normal 5-9 [facility] Comment on above: Performed By: #### E RUR #### [facility] [address] [place] [address] Dr. Jerry Samuel SPEC GRAVITY <=1.005 Abnormal 1.005-<=1.025 [facility] Comment on above: Performed By: #### E RUR #### [facility] [address] [place] [address] Dr. Jerry Samuel UA PROTEIN Negative Normal NEGATIVE/ TRACE [facility] Comment on above: Performed By: #### E RUR #### [facility] [address] [place] [address] Dr. Jerry Samuel UR MICRO IND NOT INDICATED Normal [facility] Comment on above: Performed By: #### E RUR #### [facility] [address] [place] [address] Dr. Jerry Samuel Urobilinogen Qn (U) 0.2 {Charlette'U}/dL Normal 0.2 - 1. 0 [facility] Comment on above: Performed By: #### E RUR #### [facility] [address] [place] [address] Dr. Jerry Samuel PROF 14(COMP METB)on 023 Albumin [Mass/Vol] 3.4 g/dL Normal 3.4-5.0 [facility] Comment on above: Performed By: #### R PRQ #### [facility] [address] [place] [address] Dr. Jerry Samuel Albumin/Globulin [Mass ratio] 1.0 {ratio} Normal [facility] Comment on above: Performed By: #### R PRQ #### [facility] [address] [place], [place] [id number] Dr. Jerry Samuel ALP [Catalytic activity/Vol] 33 U/L Critically low 46-116 [facility] Comment on above: Performed By: #### R PRQ #### [facility] [address] [place] [address] Dr. Jerry Samuel ALT [Catalytic activity/Vol] 16 U/L Normal 14-59 [facility] Comment on above: Performed By: #### R PRQ #### [facility] [address] [place] [address] Dr. Jerry Samuel Anion gap [Moles/Vol] 8.5 mmol/L Normal [facility] Comment on above: Performed By: #### R PRQ #### [facility] [address] [place] [address] Dr. Jerry Samuel AST [Catalytic activity/Vol] 12 U/L Critically low 15-37 [facility] Comment on above: Performed By: #### R PRQ #### [facility] [address] [place] [address] Dr. Jerry Samuel Bilirubin [Mass/Vol] 0.3 mg/dL Normal 0.2-1.0 [facility] Comment on above: Performed By: #### R PRQ #### [facility] [address] [place] [address] Dr. Jerry Samuel Calcium [Mass/Vol] 9.2 mg/dL Normal 8.5-10.1 [facility] Comment on above: Performed By: #### R PRQ #### [facility] [address] [place] [address] Dr. Jerry Samuel Chloride [Moles/Vol] 105 mmol/L Normal 98-107 [facility] Comment on above: Performed By: #### R PRQ #### [facility] [address] [place] [address] Dr. Jerry Samuel CO2 [Moles/Vol] 25.0 mmol/L Normal 21.0-32.0 [facility] Comment on above: Performed By: #### R PRQ #### [facility] [address] [place] [address] Dr. Jerry Samuel Creatinine [Mass/Vol] 0.40 mg/dL Critically low 0.55-1.02 [facility] Comment on above: Performed By: #### R PRQ #### [facility] [address] [address] [address] Jerry Samuel EGFR-AF ANDORRAN >60 Normal >=60 [facility] Comment on above: Performed By: #### R PRQ #### [facility] [address] [address] [address] Jerry Samuel EGFR-NON AF ANDORRAN >60 Normal >=60 [facility] Comment on above: Performed By: #### R PRQ #### [facility] [address] [address] [address] Jerry Samuel Globulin (S) [Mass/Vol] 3.5 g/dL Normal [facility] Comment on above: Performed By: #### R PRQ #### [facility] [address] [place] [address] Dr. Jerry Samuel Glucose [Mass/Vol] 94 mg/dL Normal 74-106 [facility] Comment on above: Performed By: #### R PRQ #### [facility] [address] [address] [address] Jerry Samuel Potassium [Moles/Vol] 3.5 mmol/L Normal 3.5-5.1 [facility] Comment on above: Performed By: #### R PRQ #### [facility] [address] [place] [address] Dr. Jerry Samuel Protein [Mass/Vol] 6.9 g/dL Normal 6.4-8.2 [facility] Comment on above: Performed By: #### R PRQ #### [facility] [address] [address] [address] Jerry Samuel Sodium [Moles/Vol] 135 mmol/L Critically low 136-145 [facility] Comment on above: Performed By: #### R PRQ #### [facility] [address] [place] [address] Dr. Jerry Samuel Urea nitrogen [Mass/Vol] 6.0 mg/dL Critically low 7.0-18.0 [facility] Comment on above: Performed By: #### R PRQ #### [facility] [address] [place] [address] Dr. Jerry Samuel Urea nitrogen/Creatinine [Mass ratio] 15.0 mg/mg Normal [facility] Comment on above: Performed By: #### R PRQ #### [facility] [address] [place] [address] Dr. Jerry Samuel DOROTEO BOX TEST PT SEND OUTo n 05-02-2022 SENT TO REF LAB 05/02/2022 Normal [facility] Comment on above: Performed By: #### N BOX #### [facility] [address] [place] [address] Dr. Jerry Samuel HEP B SURFACE ANTIGEN SCREEN on 04-05-2022 HBsAg Screen Negative Normal Negative [facility] Comment on above: Performed By: #### N BOX #### [facility] [address] [place] [address] Dr. Jerry Samuel HEPATITIS C VIRUS AB W/ REFL EX QUANTon 04-05-2022 HCV AB <0.1 Normal 0.0-0.9 [facility] Comment on above: Performed By: #### H CVPCRR #### [facility] [address] [place] [address] Dr. Jerry Samuel Interpretation: Comment Normal [facility] Comment on above: Result Comment: Nega tive Not infected with HCV, unless recent infection is suspected or other evidence exists to indicate HCV infection. Performed By: #### H CVPCRR #### [facility] [address] [place] [address] Dr. Jerry Samuel HIV 1 AND 2 WITH REFLEXon HIV Screen 4th Generation wRfx Non-Reactive Normal Non Reactive [facility] Comment on above: Result Comment: HIV Negative HIV-1/HIV-2 antibodies and HIV-1 p24 antigen were NOT detected. There is no laboratory evidence of HIV infection. Performed By: #### R PRQ #### [facility] [address] [place] [address] Dr. Jerry Samuel RPR QUANTon 04-05-2022 Rapid Plasma Reagin, Quant Non-Reactive Normal NonRea<1:1 [facility] Comment on above: Result Comment: Nathaly wilkes Note: This test does not meet current guidelines for screening and diagnosis of syphilis. This test is intended for following treatment response in patients being treated for syphilis infection. To screen for syphilis infection, a reflex cascade that includes both RPR and a treponema-specific assay should be utilized, such as Treponema pallidum (Syphilis) Screening [place] (303421) or Rapid Plasma Reagin (RPR) Test With Reflex to Quantitative RPR and Confirmatory Treponema pallidum Antibodies (250175). Performed By: #### R PRQ #### [facility] [address] [place] [address] Dr. Jerry Samuel RUBELLA AB IGGon 04-05-2022 Rubella Antibodies, IgG 1.97 index Normal Immune >0.99 [facility] Comment on above: Result Comment: Non- immune <0.90 Equivocal 0.90 - 0.99 Immune >0.99 Performed By: #### R UBIGG #### [facility] [address] [place] [address] Dr. Jerry Samuel CBC AUTO DIFFon 04-04-2022 BASO # 0.0 103/ul Normal 0.0-0.1 [facility] Comment on above: Performed By: #### R PRQ #### [facility] [address] [place] [address] Dr. Jerry Samuel Basophils/100 WBC (Bld) 0.3 % Normal 0.2-2.0 [facility] Comment on above: Performed By: #### R PRQ #### [facility] [address] [place] [address] Dr. Jerry Samuel EO # 0.1 103/ul Normal 0.0-0.7 [facility] Comment on above: Performed By: #### R PRQ #### [facility] [address] [place] [address] Dr. Jerry Samuel Eosinophils/100 WBC (Bld) 0.7 % Critically low 0.9-7.0 [facility] Comment on above: Performed By: #### R PRQ #### [facility] [address] [place] [address] Dr. Jerry Samuel Erythrocyte distribution width (RBC) [Ratio] 12.3 % Normal 11.0-15.0 [facility] Comment on above: Performed By: #### R PRQ #### [facility] [address] [place] [address] Dr. Jerry Samuel Hematocrit (Bld) [Volume fraction] 35.1 % Critically low 36.0-48.0 [facility] Comment on above: Performed By: #### R PRQ #### [facility] [address] [place] [address] Dr. Jerry Samuel Hemoglobin (Bld) [Mass/Vol] 11.8 g/dL Critically low 12.0-16.0 [facility] Comment on above: Performed By: #### R PRQ #### [facility] [address] [place] [address] Dr. Jerry Samuel IG # 0.02 10e3/ul Normal 0.00-0.03 [facility] Comment on above: Performed By: #### R PRQ #### [facility] [address] [place] [address] Dr. Jerry Samuel IG % 0.3 % Normal 0.0-0.5 [facility] Comment on above: Performed By: #### R PRQ #### [facility] [address] [place] [address] Dr. Jerry Samuel LYMPH # 2.0 103/ul Normal 1.2-3.8 [facility] Comment on above: Performed By: #### R PRQ #### [facility] [address] [place] [address] Dr. Jerry Samuel Lymphocytes/100 WBC (Bld) 26.7 % Normal 20.5-60.0 [facility] Comment on above: Performed By: #### R PRQ #### [facility] [address] [place] [address] Dr. Jerry Samuel MANUAL DIFF REQ NO Normal [facility] Comment on above: Performed By: #### R PRQ #### [facility] [address] [place] [address] Dr. Jerry Samuel MCH (RBC) [Entitic mass] 29.0 pg Normal 26.7-34.0 [facility] Comment on above: Performed By: #### R PRQ #### [facility] [address] [place] [address] Dr. Jerry Samuel MCHC (RBC) [Mass/Vol] 33.6 g/dL Normal 29.9-35.2 [facility] Comment on above: Performed By: #### R PRQ #### [facility] [address] [place] [address] Dr. Jerry Samuel MCV (RBC) [Entitic vol] 86.2 fL Normal 81.0-99.0 [facility] Comment on above: Performed By: #### R PRQ #### [facility] [address] [place] [address] Dr. Jerry Samuel MONO # 0.5 103/ul Normal 0.3-0.8 [facility] Comment on above: Performed By: #### R PRQ #### [facility] [address] [place] [address] Dr. Jerry Samuel Monocytes/100 WBC (Bld) 6.7 % Normal 1.7-12.0 [facility] Comment on above: Performed By: #### R PRQ #### [facility] [address] [place] [address] Dr. Jerry Samuel NEUT # 4.9 103/ul Normal 1.4-6.5 [facility] Comment on above: Performed By: #### R PRQ #### [facility] [address] [place] [address] Dr. Jerry Samuel Neutrophils/100 WBC (Bld) 65.3 % Normal 43.0-75.0 [facility] Comment on above: Performed By: #### R PRQ #### [facility] [address] [place] [address] Dr. Jerry Samuel Platelet mean volume (Bld) [Entitic vol] 10.0 fL Normal 9.5-13.5 [facility] Comment on above: Performed By: #### R PRQ #### [facility] [address] [address] [address] Jerry Samuel PLT 218 103/ul Normal 150-450 [facility] Comment on above: Performed By: #### R PRQ #### [facility] [address] [address] [address] Jerry Samuel RBC 4.07 106/ul Critically low 4.20-5.40 [facility] Comment on above: Performed By: #### R PRQ #### [facility] [address] [address] [address] Jerry Samuel WBC 7.5 103/ul Normal 4.0-11.0 [facility] Comment on above: Performed By: #### R PRQ #### [facility] [address] [place] [address] Dr. Jerry Samuel CULTURE URINEon 04-04-2022 CULTURE URINE Culture Observations : NO GROWTH. Normal [facility] Comment on above: Performed By: #### N BOX #### [facility] [address] [place] [address] Dr. Jerry Samuel GLYCOHEMOGLOBIN A1Con 2021 ADA RECOMMENDATION SEE BELOW Normal [facility] Comment on above: Result Comment: ADA RECOMMENDED LIMIT 4.0 - 6.0 ADA THERAPEUTIC TARGET < 7.0 ACTION SUGGESTED > 7.0 Performed By: #### N BOX #### [facility] [address] [place] [address] Dr. Jerry Samuel Glucose [Mass/Vol] 97 mg/dL Normal [facility] Comment on above: Performed By: #### N BOX #### [facility] [address] [address] [address] Jerry Samuel HbA1c (Bld) [Mass fraction] 5.0 % Normal 4.5-6.2 [facility] Comment on above: Performed By: #### N BOX #### [facility] [address] [place] [address] Dr. Jerry Samuel TYPE AND SCREENon 04-04-2022 TYPE AND SCREEN Negative Normal [facility] Comment on above: Performed By: #### N BOX #### [facility] [address] [place] [address] Dr. Jerry Samuel US PREG TVon 04-04-2022 [...] EDITH WILLIS Date: 2022-04-04 16:13 Normal [facility] PREG QUANT HCGon 03-07-2022 HCG QUANT 2201 mIU/mL Normal [facility] Comment on above: Performed By: #### R PRQ #### [facility] [address] [place] [address] Dr. Jerry Samuel HCG RANGE SEE BELOW Normal [facility] Comment on above: Result Comment: 5-50 0.2-1 WEEK 50-500 1-2 WEEKS 100-5,000 2-3 WEEKS 500-10,000 3-4 WEEKS 1,000-50,000 4-5 WEEKS 10,000-100,000 5-6 WEEKS 15,000-200,000 6-8 WEEKS 10,000-100,000 2-3 MONTHS Performed By: #### R PRQ #### [facility] [address] [place] [address] Dr. Jerry Samuel PREG QUANT HCGon 03-05-2022 HCG QUANT 820 mIU/mL Normal [facility] Comment on above: Performed By: #### R PRQ #### [facility] [address] [place] [address] Dr. Jerry Samuel HCG RANGE SEE BELOW Normal [facility] Comment on above: Result Comment: 5-50 0.2-1 WEEK 50-500 1-2 WEEKS 100-5,000 2-3 WEEKS 500-10,000 3-4 WEEKS 1,000-50,000 4-5 WEEKS 10,000-100,000 5-6 WEEKS 15,000-200,000 6-8 WEEKS 10,000-100,000 2-3 MONTHS Performed By: #### R PRQ #### [facility] [address] [place] [address] Dr. Jerry Sameul PAP ACOG PANEL 2: 21 to 29on 02-21-2022 . . Normal [facility] Comment on above: Performed By: #### R PRQ #### [facility] [address] [place] [address] Dr. Jerry Samuel Age Gdln ACOG Testing - [facility] Comment on above: Performed By: #### R PRQ #### [facility] [address] [place] [address] Dr. Jerry Samuel DIAGNOSIS: Comment [facility] Comment on above: Result Comment: NEGA TIVE FOR INTRAEPITHELIAL LESION OR MALIGNANCY. SPECIMEN REPROCESSED FOR INTERPRETATION. Performed By: #### R PRQ #### [facility] [address] [place] [address] Dr. Jerry Samuel Methodology: Comment [facility] Comment on above: Result Comment: This liquid based ThinPrep(R) pap test was screened with the use of an image guided system. Performed By: #### R PRQ #### [facility] [address] [place] [address] Dr. Jerry Samuel Note: Comment [facility] Comment on above: Result Comment: The Pap smear is a screening test designed to aid in the detection of premalignant and malignant conditions of the uterine cervix. It is not a diagnostic procedure and should not be used as the sole means of detecting cervical cancer. Both false-positive and false-negative reports do occur. . Performed By: #### R PRQ #### [facility] [address] [place] [address] Dr. Jerry Samuel Performed by: Comment [facility] Comment on above: Result Comment: Anders Roman, Enrober Tender (ASCP) Performed By: #### R PRQ #### [facility] [address] [place] [address] Dr. Jerry Samuel Reflex Criteria: Comment Normal [facility] Comment on above: Result Comment: The HPV DNA reflex criteria were not met with this specimen result therefore, no HPV testing was performed. . Performed By: #### R PRQ #### [facility] [address] [place] [address] Dr. Jerry Samuel Specimen adequacy: Comment Normal [facility] Comment on above: Result Comment: Sati sfactory for evaluation. Endocervical and/or squamous metaplastic cells (endocervical component) are present. Performed By: #### R PRQ #### [facility] [address] [place] [address] Dr. Jerry Samuel US PELVIS AND TRANSVAGon [...] EDITH WILLIS Date: 2022-02-13 14:34 Normal [facility] CBC AUTO DIFFon 02-12-2022 BASO # 0.0 103/ul Normal 0.0-0.1 [facility] Comment on above: Performed By: #### C BC #### [facility] [address] [place] [address] Dr. Jerry Samuel Basophils/100 WBC (Bld) 0.6 % Normal 0.2-2.0 [facility] Comment on above: Performed By: #### C BC #### [facility] [address] [place] [address] Dr. Jerry Samuel EO # 0.1 103/ul Normal 0.0-0.7 [facility] Comment on above: Performed By: #### C BC #### [facility] [address] [place] [address] Dr. Jerry Samuel Eosinophils/100 WBC (Bld) 1.2 % Normal 0.9-7.0 [facility] Comment on above: Performed By: #### C BC #### [facility] [address] [place] [address] Dr. Jerry Samuel Erythrocyte distribution width (RBC) [Ratio] 11.9 % Normal 11.0-15.0 [facility] Comment on above: Performed By: #### C BC #### [facility] [address] [place] [address] Dr. Jerry Samuel Hematocrit (Bld) [Volume fraction] 39.1 % Normal 36.0-48.0 [facility] Comment on above: Performed By: #### C BC #### [facility] [address] [place] [address] Dr. Jerry Samuel Hemoglobin (Bld) [Mass/Vol] 13.0 g/dL Normal 12.0-16.0 [facility] Comment on above: Performed By: #### C BC #### [facility] [address] [place] [address] Dr. Jerry Samuel IG # 0.01 10e3/ul Normal 0.00-0.03 [facility] Comment on above: Performed By: #### C BC #### [facility] [address] [place] [address] Dr. Jerry Samuel IG % 0.2 % Normal 0.0-0.5 [facility] Comment on above: Performed By: #### C BC #### [facility] [address] [place] [address] Dr. Jerry Samuel LYMPH # 2.4 103/ul Normal 1.2-3.8 [facility] Comment on above: Performed By: #### C BC #### [facility] [address] [place] [address] Dr. Jerry Samuel Lymphocytes/100 WBC (Bld) 37.7 % Normal 20.5-60.0 [facility] Comment on above: Performed By: #### C BC #### [facility] [address] [place] [address] Dr. Jerry Samuel MANUAL DIFF REQ NO Normal [facility] Comment on above: Performed By: #### C BC #### [facility] [address] [place] [address] Dr. Jerry Samuel MCH (RBC) [Entitic mass] 29.2 pg Normal 26.7-34.0 [facility] Comment on above: Performed By: #### C BC #### [facility] [address] [place] [address] Dr. Jerry Samuel MCHC (RBC) [Mass/Vol] 33.2 g/dL Normal 29.9-35.2 [facility] Comment on above: Performed By: #### C BC #### [facility] [address] [place] [address] Dr. Jerry Samuel MCV (RBC) [Entitic vol] 87.9 fL Normal 81.0-99.0 [facility] Comment on above: Performed By: #### C BC #### [facility] [address] [place] [address] Dr. Jerry Samuel MONO # 0.4 103/ul Normal 0.3-0.8 [facility] Comment on above: Performed By: #### C BC #### [facility] [address] [place] [address] Dr. Jerry Samuel Monocytes/100 WBC (Bld) 5.9 % Normal 1.7-12.0 [facility] Comment on above: Performed By: #### C BC #### [facility] [address] [place] [address] Dr. Jerry Samuel NEUT # 3.5 103/ul Normal 1.4-6.5 [facility] Comment on above: Performed By: #### C BC #### [facility] [address] [place] [address] Dr. Jerry Samuel Neutrophils/100 WBC (Bld) 54.4 % Normal 43.0-75.0 [facility] Comment on above: Performed By: #### C BC #### [facility] [address] [place] [address] Dr. Jerry Samuel Platelet mean volume (Bld) [Entitic vol] 9.9 fL Normal 9.5-13.5 [facility] Comment on above: Performed By: #### C BC #### [facility] [address] [place] [address] Dr. Jerry Samuel PLT 229 103/ul Normal 150-450 [facility] Comment on above: Performed By: #### C BC #### [facility] [address] [place] [address] Dr. Jerry Samuel RBC 4.45 106/ul Normal 4.20-5.40 [facility] Comment on above: Performed By: #### C BC #### [facility] [address] [place] [address] Dr. Jerry Samuel WBC 6.5 103/ul Normal 4.0-11.0 [facility] Comment on above: Performed By: #### C BC #### [facility] [address] [place] [address] Dr. Jerry Samuel FREE T4on 02-12-2022 Free T4 [Mass/Vol] 0.99 ng/dL Normal 0.76-1.46 [facility] Comment on above: Performed By: #### R PRQ #### [facility] [address] [place] [address] Dr. Jerry Samuel GLYCOHEMOGLOBIN A1Con 2021 ADA RECOMMENDATION SEE BELOW Normal [facility] Comment on above: Result Comment: ADA RECOMMENDED LIMIT 4.0 - 6.0 ADA THERAPEUTIC TARGET < 7.0 ACTION SUGGESTED > 7.0 Performed By: #### R PRQ #### [facility] [address] [place] [address] Dr. Jerry Samuel Glucose [Mass/Vol] 103 mg/dL Normal [facility] Comment on above: Performed By: #### R PRQ #### [facility] [address] [place] [address] Dr. Jerry Samuel HbA1c (Bld) [Mass fraction] 5.2 % Normal 4.5-6.2 [facility] Comment on above: Performed By: #### R PRQ #### [facility] [address] [place] [address] Dr. Jerry Samuel PROTIMEon 02-12-2022 INR Coag (PPP) [Relative time] 1.00 {INR} Normal [facility] Comment on above: Performed By: #### N BOX #### [facility] [address] [place] [address] Dr. Jerry Samuel INR GUIDELINES SEE BELOW Normal [facility] Comment on above: Result Comment: SACHA RED INR: 2.0 - 3.0 CONDITIONS NOT LISTED BELOW 2.5 - 3.5 FOR PROSTHETIC HEART VALVE REPLACEMENT 2.5 - 3.5 RECURRENT THROMBOSIS Performed By: #### N BOX #### [facility] [address] [place] [address] Dr. Jerry Samuel PT Coag (PPP) [Time] 10.8 s Normal 9.0-11.6 [facility] Comment on above: Performed By: #### N BOX #### [facility] [address] [place] [address] Dr. Jerry Samuel PTTon 02-12-2022 aPTT Coag (Bld) [Time] 27.8 s Normal 22.3-36.2 [facility] Comment on above: Performed By: #### N BOX #### [facility] [address] [place] [address] Dr. Jerry Samuel TSHon 02-12-2022 TSH 1.741 uIU/mL Normal 0.358-3.740 [facility] Comment on above: Performed By: #### T SH #### [facility] [address] [place] [address] Dr. Jerry Samuel Outside [facility]son 11-20-2021 Outside Records [id number] TIFF Normal [facility] Outside [facility] 11-16-2021 Outside Records [id number]#1.00OT GTIFF Normal [facility] HCG,Urineon 02-22-2021 Beta HCG ( test) Ql (U) Negative Normal [facility] Comment on above: Result Comment: PERF ORMED BY: [place] [address] PATHOLOGIST STRAIN TECHNICIAN PRIYA WHITE M.D. Performed By: #### U HCG #### [id number] [facility] 02-22-2021 L ---- Specimen: [id number] Received: 02/23/21 Status: DRE Elizabeth Num: [id number] Spec Type: Surgical Subm Dr: Edith Cagle Jr, Tissues: A Duodenum - Biopsy (DUODENUM BX) B Stomach - Biopsy/Polyp (ANTRUM BX) C Colon Biopsy (RANDOM COLON) Procedures: HE Stain/6, Gross/Micro L4/3 Patient Age/Sex Location Account Attending Physician Will Shay Jose Luis / [id number] Edith Cagle Jr, DO SPEC NUM: [id number] RECD: 02/23/21 STATUS: DRE ELIZABETH NUM: [id number] CASIMIRO: 02/22/21- DR: Edith Cagle Jr, DO ENTERED: 02/23/[address]: ANITA TYPE: Surgical DEPT: S ENTERED BY: [id number] RECV BY: [id number] ORDERED: HE Stain/6, Gross/Micro L4/3 ORDERED: HE [...] in one cassette labeled B1. (SM/YJ) Specimen: [id number] Received: 02/23/21 Status: DRE Elizabeth Num: [id number] Spec Type: Surgical Subm Dr: Edith Cagle Jr, DO Tissues: A Duodenum - Biopsy (DUODENUM BX) B Stomach - Biopsy/Polyp (ANTRUM BX) C Colon Biopsy (RANDOM COLON) Procedures: HE Stain/6, Gross/Micro L4/3 Patient: LauritaNenomaria e Amaya [id number] (Continued) Specimen: Received: 02/23/21 (Continued) Gross Description (Continued) Signed (signature on file) Gail Crockett MD 02/26/21 1601 Specimen: [id number] Received: 02/23/21 Status: DRE Elizabeth Num: [id number] Spec Type: Surgical Subm Dr: Edith Cagle Jr, DO Tissues: A Duodenum - Biopsy (DUODENUM BX) B Stomach - Biopsy/Polyp (ANTRUM BX) C Colon Biopsy (RANDOM COLON) Procedures: HE Stain/6, Gross/Micro L4/3 Patient: Will Shay [id number] (Continued) Specimen: [id number] Received: 02/23/21 (Continued) Gross Description (Continued) C. [...] characteristics were determined by the [facility]. Immunohistochemistry assays have not been validated on decalcified tissue. Results should be interpreted with caution given the possibility of false negative results on decalcified specimens. They have not been cleared by the [place] Food and Drug Administration. The FDA has determined that such clearance or approval is not necessary. CPT Codes 45643?3, 92824 (more content not included)... Normal [facility] SARS-CoV-2 (COVID-19) RNA ELINOR+probe Ql (Unsp spec) Negative Normal Negative [facility] Comment on above: Order Comment: Healt hcare Worker?: N Result Comment: Testing for SARS-CoV-2 by RT-PCR This test was developed and its performance characteristics determined by [employer] and validated at the [facility]. This test has not been FDA [...] is terminated or revoked sooner. PERFORMED BY: [facility] [place] [place] [address] PATHOLOGIST STRAIN TECHNICIAN PRIYA WHITE M.D. Performed By: #### C OVID 19 [facility] #### [address] Vital Signs Date Time Vital Sign Value Performing Clinician Facility 03-26-2023 13:45-0500 Body height 164.47 cm Ben Rose Other [facility] Other 03-26-2023 13:45-0500 Body mass index (BMI) [Ratio] 29.6 kg/m2 Ben Rose Other [facility] Other 03-26-2023 13:45-0500 Body weight 80.06 kg Ben Rose Other [facility] Other 03-26-2023 13:45-0500 Diastolic blood pressure 74 mm[Hg] Ben Rose Other [facility] Other 03-26-2023 13:45-0500 Systolic blood pressure 120 mm[Hg] Ben Rose Other [facility] Other 06-14-2022 17:07-0500 Body weight 79.[address] EDDIE VALIENTE . [facility] Comment on above: Performed By: #### RPRQ #### [facility] [address] [place] [address] Dr. Jerry Samuel 03-08-2022 11:15-0500 Body height 164.47 cm Ben Rose Other [facility] Other 03-08-2022 11:15-0500 Body mass index (BMI) [Ratio] 29.01 kg/m2 Ben Rose Other [facility] Other 03-08-2022 11:15-0500 Body weight 78.47 kg Ben Rose Other [facility] Other 03-08-2022 11:15-0500 Diastolic blood pressure 73 mm[Hg] Ben Rose Other [facility] Other 03-08-2022 11:15-0500 Systolic blood pressure 113 mm[Hg] Ben Rose Other [facility] Other Encounters Encounter Date Encounter Type Care Provider Facility Start: 03-27-2023 End: 03-27-2023 ambulatory GENTRY KIM Not Available Start: 03-26-2023 End: 03-26-2023 ambulatory Ben Rose Other [facility] Other Start: 03-26-2023 Patient encounter procedure Ben FLOR[facility] Start: 03-05-2023 End: 03-05-2023 ambulatory EDDIE VALIENTE Not Available Start: 01-24-2023 End: 01-24-2023 ambulatory Ben Rose Other [facility] Other Start: 01-24-2023 Telephone encounter Ben FORD [...] 03-08-2022 End: 03-08-2022 ambulatory Ben Rose Other [facility] Other Start: 03-08-2022 Patient encounter procedure Ben [...] 11-06-2021 End: 11-06-2021 ambulatory [place] A Mikael [employer] INVESTIGATOR-C [facility] Start: 11-05-2021 End: 11-06-2021 ambulatory [place] A 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046701.3.579.2.593 1996 Unknown [id number] 2.16.84 0.1.256055.3.579.2.593 1996 Unknown [id number] 2.16.84 0.1.470954.3.579.2.593 1996 Unknown [id number] 2.16.84 0.1.368235.3.579.2.593 1996 Unknown [id number] 2.16.84 0.1.945904.3.579.2.593 1996 Unknown [id number] 2.16.84 0.1.654244.3.579.2.593 1996 Unknown [id number] 2.16.84 0.1.958080.3.579.2.593 1996 Unknown [id number] 2.16.84 0.1.200472.3.579.2.593 1996 Unknown [id number] 2.16.84 0.1.392726.3.579.2.593 1996 Unknown [id number] 2.16.84 0.1.557122.3.579.2.593 1996 Unknown [id number] 2.16.84 0.1.494964.3.579.2.593 1996 Unknown [id number] 2.16.84 0.1.817156.3.579.2.593 1996 Unknown [id number] 2.16.840 .1.208008.3.579.2.1259 1996 Unknown [id number] 2.16.840 .1.227944.3.579.2.1259 1959 Self-pay 1959 Unknown [id number] 2.16. 840.1.241419.19 1959 Unknown [id number] 2. 16.840.1.368374.19 1959 Unknown [id number] 1959 Unknown [id number] Unknown [id number] 2.16.84 0.1.234755.3.579.2.593 Social History Date Type Detail Facility Unknown if ever smoked [facility] Other Sex Assigned At [facility] Assigned At [facility] Other Evaluation note 03-26-2023 Note Date & [...] call office if she has no improvement [facility] Other Evaluation note 01-24-2023 Note Date & Type Note Facility 01-24-2023 Evaluation note Encounter Date Diagnosis Assessment Notes Jan, Epigastric burning sensation (ICD-10 - R10.13) [facility] Other Evaluation note 03-08-2022 Note Date & [...] DAILY CONTINUE LEVSIN NEEDED RTO 1 YR [facility] Other History general Narrative - Reported Note Date & Type Note Facility History general Narrative - Reported Type Medical History scoliosis Medical History hx of mono Surgical History [place] teeth x4 [facility] Other History general Narrative - Reported Note Date & Type Note Facility History general Narrative - Reported Type Medical History scoliosis Medical History hx of mono Surgical History [place] teeth x4 Surgical History [facility] [employer] [facility] Other Summary Purpose Family History No Family History Records FoundNo Family History Records FoundNo Family History Records FoundNo Family History Records Found Advance Directives No Advanced Directives Records FoundNo Advanced Directives Records FoundNo Advanced Directives Records FoundNo Advanced Directives Records Found Additional Source Comments INFORMATION SOURCE (unrecogn ized section and content) DATE CREATED AUTHOR 02/27/2021 [facility] DATE CREATED AUTHOR AUTHOR'S ORGANIZ ATION 07/24/2022 [facility] DATE CREATED AUTHOR AUTHOR'S ORGANIZ ATION [facility] DATE CREATED AUTHOR AUTHOR'S ORGANIZ ATION 03/28/[address] [facility] EPIC REASON FOR VISIT (unrecogniz ed [...] BE BASED ON THE PRIMARY CLINICAL RECORDS. [employer] provides no warranty or guarantee of the accuracy or completeness of information in this document.
== END 2023-12-12 08:33 | disposition home or self-care (01) ==
LOC: NOMS 08:32
PROVIDERS: Visit Provider Obstetrics & Gynecology
DX: Z34.91 Encounter for supervision of normal pregnancy, unspecified, first trimester (principal); Z3A.08 8 weeks gestation of pregnancy; N92.6 Irregular menstruation, unspecified
CPT/HCPCS: 76817

== ENCOUNTER 2023-12-16 15:12 | Emergency (ER) | payer BC, SELFPAY ==
[2023-12-16 15:34] VITALS: BP 130/79; PULSE 92; TEMP 36.6; O2SAT 100; BMI 35.4
--- OUTSIDE RECORDS SUMMARY | 2023-12-16 16:05 | XMS_ITS | CCD ---
Author Organization [facility] CliniSyoh Care Team Providers Care Rn Visiting Name Role Phone Ben Rose Unavailable Mikael COTTRELL OPERATOR-C, Angeles A Admitting Unavailable Mikael COTTRELL OPERATOR-C, Angeles A Attending Unavailable Mikael COTTRELL OPERATOR-C, Angeles A Primary Care Unavailable Mikael COTTRELL OPERATOR-C, Angeles A Attending Unavailable Mikael COTTRELL OPERATOR-C, Angeles A Primary Care Unavailable ROCCO ., [...] Unavailable ROCCO ., DR MORGAN Attending Unavailable WILLMAR, DR EDITH Corey Consulting Unavailable ORCCO ., DR MORGAN Admitting Unavailable ROCCO ., DR MORGAN Consulting Unavailable ROCCO ., DR MORGAN Consulting Unavailable ROCCO ., DR MORGAN Admitting Unavailable REQUEST, DR NONE LISTED Primary Care Unavaila ble ROCCO ., DR MORGAN Attending Unavailable MIKAEL, ANGELES Primary Care Unavailable ROCCO ., DR MORGAN Attending Unavailable WEST, DR EDITH Corey Consulting Unavailable ROCCO ., [...] DR NONE LISTED Primary Care Unavaila ble DANTEMOND, GENTRY Lal Attending Unavailable ROCCO, EDDIE Attending Unavailable Allergies Allergy Classification Reported Allergen(s) Allergy Type Date of Onset Reaction(s) Facility (3 sources) Penicillin G Drug Allergy Unknown Viverae Other (1 source) busPIRone; Translations: [buspirone hcl] Drug Allergy [facility] Repository (1 source) Coconut extract; Translations: [coconut] Drug Allergy [facility] Repository (1 source) Penicillins; Translations: [penicillins] Propensity to adverse reactions to drug (disorder) [facility] Repository (1 source) Amoxicillin Drug Allergy [facility] Repository (1 source) Penicillin Drug Allergy [facility] Repository Medications Current Medications Medication Drug [...] 07-25-2022 BASO # 0.0 103/ul Normal 0.0-0.[address] [facility] Comment on above: Performed By: #### C BC #### [facility] [address] [address] [address] Jerry Samuel Basophils/100 WBC (Bld) 0.3 % Normal 0.2-2.[address] [facility] Comment on above: Performed By: #### C BC #### [facility] [address] [address] [address] Jerry Samuel EO # 0.1 103/ul Normal 0.0-0.[address] [facility] Comment on above: Performed By: #### C BC #### [facility] [address] [address] [address] Jerry Samuel Eosinophils/100 WBC (Bld) 1.4 % Normal 0.9-7.[address] [facility] Comment on above: Performed By: #### C BC #### [facility] [address] [address] [address] Jerry Samuel Erythrocyte distribution width (RBC) [Ratio] 13.2 % Normal 11.0-15.[address] [facility] Comment on above: Performed By: #### C BC #### [facility] [address] [address] [address] Jerry Samuel Hematocrit (Bld) [Volume fraction] 33.9 % Critically low 36.0-48.[address] [facility] Comment on above: Performed By: #### C BC #### [facility] [address] [address] [address] Jerry Samuel Hemoglobin (Bld) [Mass/Vol] 11.3 g/dL Critically low 12.0-16.[address] [facility] Comment on above: Performed By: #### C BC #### [facility] [address] [address] [address] Jerry Samuel IG # 0.04 10e3/ul Critically high 0.00-0.03 [facility] Comment on above: Performed By: #### C BC #### [facility] [address] [place] [address] Dr. Jerry Samuel IG % 0.6 % Critically high 0.0-0.5 [facility] Comment on above: Performed By: #### C BC #### [facility] [address] [place] [address] Dr. Jerry Samuel LYMPH # 1.9 103/ul Normal 1.2-3.[address] [facility] Comment on above: Performed By: #### C BC #### [facility] [address] [place] [address] Dr. Jerry Samuel Lymphocytes/100 WBC (Bld) 30.2 % Normal 20.5-60.[address] [facility] Comment on above: Performed By: #### C BC #### [facility] [address] [place] [address] Dr. Jerry Samuel MANUAL DIFF REQ NO Normal [facility] Comment on above: Performed By: #### C BC #### [facility] [address] [place] [address] Dr. Jerry Samuel MCH (RBC) [Entitic mass] 29.9 pg Normal 26.7-34.[address] [facility] Comment on above: Performed By: #### C BC #### [facility] [address] [place] [address] Dr. Jerry Samuel MCHC (RBC) [Mass/Vol] 33.3 g/dL Normal 29.9-35.[address] [facility] Comment on above: Performed By: #### C BC #### [facility] [address] [place] [address] Dr. Jerry Samuel MCV (RBC) [Entitic vol] 89.7 fL Normal 81.0-99.[address] [facility] Comment on above: Performed By: #### C BC #### [facility] [address] [place] [address] Dr. Jerry Samuel MONO # 0.5 103/ul Normal 0.3-0.[address] [facility] Comment on above: Performed By: #### C BC #### [facility] [address] [place] [address] Dr. Jerry Samuel Monocytes/100 WBC (Bld) 7.2 % Normal 1.7-12.[address] [facility] Comment on above: Performed By: #### C BC #### [facility] [address] [address] [address] Jerry Samuel NEUT # 3.8 103/ul Normal 1.4-6.[address] [facility] Comment on above: Performed By: #### C BC #### [facility] [address] [place] [address] Dr. Jerry Samuel Neutrophils/100 WBC (Bld) 60.3 % Normal 43.0-75.[address] [facility] Comment on above: Performed By: #### C BC #### [facility] [address] [place] [address] Dr. Jerry Samuel Platelet mean volume (Bld) [Entitic vol] 9.8 fL Normal 9.5-13.[address] [facility] Comment on above: Performed By: #### C BC #### [facility] [address] [place] [address] Dr. Jerry Samuel PLT 188 103/ul Normal 150-[address] [facility] Comment on above: Performed By: #### C BC #### [facility] [address] [place] [address] Dr. Jerry Samuel RBC 3.78 106/ul Critically low 4.20-5.40 [facility] Comment on above: Performed By: #### C BC #### [facility] [address] [place] [address] Dr. Jerry Samuel WBC 6.2 103/ul Normal 4.0-11.0 [facility] Comment on above: Performed By: #### C BC #### [facility] [address] [place] [address] Dr. Jerry Samuel GLUCOSE - 1HRon 07-25-2022 Glucose [Mass/Vol] 100 mg/dL Normal 74-106 [facility] Comment on above: Performed By: #### N BOX #### [facility] [address] [address] [address] Jerry Samuel US PREG ANATOMY SINGLEon [...] ABRIL SCANLON Date: 2022-07-02 13:45 Normal [facility] AFP MATERNAL FOR SPINA BIFID Aon 06-14-2022 AFP MoM 0.87 Normal [facility] Comment on above: Performed By: #### R PRQ #### [facility] [address] [address] [address] Jerry aSmuel AFP Value 39.6 ng/mL Normal [facility] Comment on above: Performed By: #### R PRQ #### [facility] [address] [address] [address] Jerry Samuel AFP, Serum for Spina Bifida Report Normal [facility] Comment on above: Performed By: #### R PRQ #### [facility] [address] [address] [address] Jerry Samuel Comment Comment Normal [facility] Comment on above: Result Comment: Irina Petersen, Ph.D., [facility] Director . References: Available Upon Request. . Multiples Of Median Cutoffs For AFP Elevations Patrick 2.5 Black 2.8 IDD 2.0 Twins 4.5 Abbreviation Definitions IDD - Insulin Dep Diabetes OSBR - Open Spina Bifida Risk . For further inquiries contact [employer] at [phone]. . This test was developed and its performance characteristics determined by [employer]. It has not been cleared or approved by the Food and Drug Administration. Performed By: #### R PRQ #### [facility] [address] [place] [address] Dr. Jerry Samuel Gest Age Collection Date 18.9 weeks Normal [facility] Comment on above: Performed By: #### R PRQ #### [facility] [address] [address] [address] Jerry Samuel Gestat, Age Based on Ultrasound Normal [facility] Comment on above: Result Comment: 09.0 on 04/04/2022 Recalculations are not recommended when gestational dating by LMP and ultrasound are within 10 days. Performed By: #### R PRQ #### [facility] [address] [place] [address] Dr. Jerry Samuel Insulin Dep Diabetes No Normal [facility] Comment on above: Performed By: #### R PRQ #### [facility] [address] [address] [address] Jerry Samuel Interpretation Comment Normal [facility] Comment on above: Result Comment: Inte rpretation: [...] Customer Services to discuss available options. The [employer] recommends amniocentesis be offered to women age 35 and older. Performed By: #### R PRQ #### [facility] [address] [place] [address] Dr. Jerry Samuel [age] Normal [facility] Comment on above: Performed By: #### R PRQ #### [facility] [address] [place] [address] Dr. Jerry Samuel Multiple Gestation No Normal [facility] Comment on above: Performed By: #### R PRQ #### [facility] [address] [place] [address] Dr. Jerry Samuel [place] [address] Normal [facility] Comment on above: Performed By: #### R PRQ #### [facility] [address] [place] [address] Dr. Jerry Samuel PDF . Normal [facility] Comment on above: Performed By: #### R PRQ #### [facility] [address] [place] [address] Dr. Jerry Samuel Race [facility] Comment on above: Performed By: #### R PRQ #### [facility] [address] [place] [address] Dr. Jerry Samuel Test Results: Negative Normal [facility] Comment on above: Performed By: #### R PRQ #### [facility] [address] [place] [address] Dr. Jerry Samuel CHLAMYDIA/GONOCOCCUS ELINOR (SW AB/URINE/PAPon 06-07-2022 Chlamydia trachomatis, ELINOR Negative Normal Negative [facility] Comment on above: Performed By: #### R PRQ #### [facility] [address] [place] [address] Dr. Jerry Samuel Neisseria gonorrhoeae, ELINOR Negative Normal Negative [facility] Comment on above: Performed By: #### R PRQ #### [facility] [address] [place] [address] Dr. Jerry Samuel VAGINITIS/VAGINOSIS DNA PROB Nayan 06-06-2022 Margaret species Negative Normal Negative [facility] Comment on above: Performed By: #### V AGINT #### [facility] [address] [place] [address] Dr. Jerry Samuel Gardnerella vaginalis Negative Normal Negative [facility] Comment on above: Performed By: #### V AGINT #### [facility] [address] [place] [address] Dr. Jerry Samuel Trichomonas vaginalis Negative Normal Negative [facility] Comment on above: Performed By: #### V AGINT #### [facility] [address] [place] [address] Dr. Jerry Samuel CBC AUTO DIFFon 05-26-2022 BASO # 0.0 103/ul Normal 0.0-0.[address] [facility] Comment on above: Performed By: #### C BC #### [facility] [address] [place] [address] Dr. Jerry Samuel Basophils/100 WBC (Bld) 0.1 % Critically low 0.2-2.[address] [facility] Comment on above: Performed By: #### C BC #### [facility] [address] [place] [address] Dr. Jerry Samuel EO # 0.0 103/ul Normal 0.0-0.[address] [facility] Comment on above: Performed By: #### C BC #### [facility] [address] [place] [address] Dr. Jerry Samuel Eosinophils/100 WBC (Bld) 0.4 % Critically low 0.9-7.[address] [facility] Comment on above: Performed By: #### C BC #### [facility] [address] [place] [address] Dr. Jerry Samuel Erythrocyte distribution width (RBC) [Ratio] 12.6 % Normal 11.0-15.[address] [facility] Comment on above: Performed By: #### C BC #### [facility] [address] [place] [address] Dr. Jerry Samuel Hematocrit (Bld) [Volume fraction] 34.0 % Critically low 36.0-48.[address] [facility] Comment on above: Performed By: #### C BC #### [facility] [address] [place] [address] Dr. Jerry Samuel Hemoglobin (Bld) [Mass/Vol] 11.6 g/dL Critically low 12.0-16.[address] [facility] Comment on above: Performed By: #### C BC #### [facility] [address] [place] [address] Dr. Jerry Samuel IG # 0.03 10e3/ul Normal 0.00-0.[address] [facility] Comment on above: Performed By: #### C BC #### [facility] [address] [place] [address] Dr. Jerry Samuel IG % 0.4 % Normal 0.0-0.[address] [facility] Comment on above: Performed By: #### C BC #### [facility] [address] [place] [address] Dr. Jerry Samuel LYMPH # 1.1 103/ul Critically low 1.2-3.8 [facility] Comment on above: Performed By: #### C BC #### [facility] [address] [place] [address] Dr. Jerry Samuel Lymphocytes/100 WBC (Bld) 16.5 % Critically low 20.5-60.[address] [facility] Comment on above: Performed By: #### C BC #### [facility] [address] [place] [address] Dr. Jerry Samuel MANUAL DIFF REQ NO Normal [facility] Comment on above: Performed By: #### C BC #### [facility] [address] [place] [address] Dr. Jerry Samuel MCH (RBC) [Entitic mass] 29.1 pg Normal 26.7-34.[address] [facility] Comment on above: Performed By: #### C BC #### [facility] [address] [place] [address] Dr. Jerry Samuel MCHC (RBC) [Mass/Vol] 34.1 g/dL Normal 29.9-35.[address] [facility] Comment on above: Performed By: #### C BC #### [facility] [address] [address] [address] Jerry Samuel MCV (RBC) [Entitic vol] 85.2 fL Normal 81.0-99.[address] [facility] Comment on above: Performed By: #### C BC #### [facility] [address] [address] [address] Jerry Samuel MONO # 0.4 103/ul Normal 0.3-0.[address] [facility] Comment on above: Performed By: #### C BC #### [facility] [address] [address] [address] Jerry Samuel Monocytes/100 WBC (Bld) 6.0 % Normal 1.7-12.[address] [facility] Comment on above: Performed By: #### C BC #### [facility] [address] [address] [address] Jerry Samuel NEUT # 5.1 103/ul Normal 1.4-6.[address] [facility] Comment on above: Performed By: #### C BC #### [facility] [address] [address] [address] Jerry Samuel Neutrophils/100 WBC (Bld) 76.6 % Critically high 43.0-75.[address] [facility] Comment on above: Performed By: #### C BC #### [facility] [address] [address] [address] Jerry Samuel Platelet mean volume (Bld) [Entitic vol] 10.5 fL Normal 9.5-13.[address] [facility] Comment on above: Performed By: #### C BC #### [facility] [address] [address] [address] Jerry Samuel PLT 207 103/ul Normal 150-450 [facility] Comment on above: Performed By: #### C BC #### [facility] [address] [address] [address] Jerry Samuel RBC 3.99 106/ul Critically low 4.20-5.40 [facility] Comment on above: Performed By: #### C BC #### [facility] [address] [place] [address] Dr. Jerry Samuel WBC 6.7 103/ul Normal 4.0-11.[address] [facility] Comment on above: Performed By: #### C BC #### [facility] [address] [place] [address] Dr. Jerry Samuel ER URINE PROFILEon 3 Bilirubin Ql (U) Negative Normal NEGATIVE [facility] Comment on above: Performed By: #### E RUR #### [facility] [address] [place] [address] Dr. Jerry Samuel Clarity (U) CLEAR Normal CLEAR [facility] Comment on above: Performed By: #### E RUR #### [facility] [address] [place] [address] Dr. Jerry Samuel Color (U) LT. YELLOW Normal YELLOW [facility] Comment on above: Performed By: #### E RUR #### [facility] [address] [place] [address] Dr. Jerry Samuel ERUAHAnahy A micrscopic examina tion will be performed if indicated. Normal [facility] Comment on above: Performed By: #### E RUR #### [facility] [address] [place] [address] Dr. Jerry Samuel Glucose Ql (U) Negative Normal NEGATIVE [facility] Comment on above: Performed By: #### E RUR #### [facility] [address] [place] [address] Dr. Jerry Samuel Hemoglobin Ql (U) Negative Normal NEGATIVE [facility] Comment on above: Performed By: #### E RUR #### [facility] [address] [place] [address] Dr. Jerry Samuel Ketones Ql (U) Negative Normal NEGATIVE [facility] Comment on above: Performed By: #### E RUR #### [facility] [address] [place] [address] Dr. Jerry Samuel LEUKOCYTES Negative Normal NEGATIVE [facility] Comment on above: Performed By: #### E RUR #### [facility] [address] [place] [address] Dr. Jerry Samuel Nitrite Ql (U) Negative Normal NEGATIVE [facility] Comment on above: Performed By: #### E RUR #### [facility] [address] [place] [address] Dr. Jerry Samuel pH (U) 6.5 [pH] Normal 5-[address] [facility] Comment on above: Performed By: #### E RUR #### [facility] [address] [place] [address] Dr. Jerry Samuel SPEC GRAVITY <=1.005 Abnormal 1.005-<=1.025 [facility] Comment on above: Performed By: #### E RUR #### [facility] [address] [place] [address] Dr. Jerry Samuel UA PROTEIN Negative Normal NEGATIVE/ TRACE [facility] Comment on above: Performed By: #### E RUR #### [facility] [address] [place] [address] Dr. Jerry Samuel UR MICRO IND NOT INDICATED Normal [facility] Comment on above: Performed By: #### E RUR #### [facility] [address] [place] [address] Dr. Jerry Samuel Urobilinogen Qn (U) 0.2 {Charlette'U}/dL Normal 0.2 - 1. [address] [facility] Comment on above: Performed By: #### E RUR #### [facility] [address] [place] [address] Dr. Jerry Samuel PROF 14(COMP METB)on 023 Albumin [Mass/Vol] 3.4 g/dL Normal 3.4-5.0 [facility] Comment on above: Performed By: #### R PRQ #### [facility] [address] [place] [address] Dr. Jerry Samuel Albumin/Globulin [Mass ratio] 1.0 {ratio} Normal [facility] Comment on above: Performed By: #### R PRQ #### [facility] [address] [place], [place] [id number] Dr. Jerry Samuel ALP [Catalytic activity/Vol] 33 U/L Critically low 46-[address] [facility] Comment on above: Performed By: #### R PRQ #### [facility] [address] [place] [address] Dr. Jerry Samuel ALT [Catalytic activity/Vol] 16 U/L Normal 14-[address] [facility] Comment on above: Performed By: #### R PRQ #### [facility] [address] [place] [address] Dr. Jerry Samuel Anion gap [Moles/Vol] 8.5 mmol/L Normal [facility] Comment on above: Performed By: #### R PRQ #### [facility] [address] [place] [address] Dr. Jerry Samuel AST [Catalytic activity/Vol] 12 U/L Critically low 15-[address] [facility] Comment on above: Performed By: #### R PRQ #### [facility] [address] [place] [address] Dr. Jerry Samuel Bilirubin [Mass/Vol] 0.3 mg/dL Normal 0.2-1.[address] [facility] Comment on above: Performed By: #### R PRQ #### [facility] [address] [place] [address] Dr. Jerry Samuel Calcium [Mass/Vol] 9.2 mg/dL Normal 8.5-10.1 [facility] Comment on above: Performed By: #### R PRQ #### [facility] [address] [place] [address] Dr. Jerry Samuel Chloride [Moles/Vol] 105 mmol/L Normal 98-[address] [facility] Comment on above: Performed By: #### R PRQ #### [facility] [address] [place] [address] Dr. Jerry Samuel CO2 [Moles/Vol] 25.0 mmol/L Normal 21.0-32.0 [facility] Comment on above: Performed By: #### R PRQ #### [facility] [address] [place] [address] Dr. Jerry Samuel Creatinine [Mass/Vol] 0.40 mg/dL Critically low 0.55-1.[address] [facility] Comment on above: Performed By: #### R PRQ #### [facility] [address] [address] [address] Jerry Samuel EGFR-AF BAHAMIAN >60 Normal >=60 [facility] Comment on above: Performed By: #### R PRQ #### [facility] [address] [address] [address] Jerry Samuel EGFR-NON AF BAHAMIAN >60 Normal >=[address] [facility] Comment on above: Performed By: #### R PRQ #### [facility] [address] [address] [address] Jerry Samuel Globulin (S) [Mass/Vol] 3.5 g/dL Normal [facility] Comment on above: Performed By: #### R PRQ #### [facility] [address] [place] [address] Dr. Jerry Samuel Glucose [Mass/Vol] 94 mg/dL Normal 74-106 [facility] Comment on above: Performed By: #### R PRQ #### [facility] [address] [address] [address] Jerry Samuel Potassium [Moles/Vol] 3.5 mmol/L Normal 3.5-5.[address] [facility] Comment on above: Performed By: #### R PRQ #### [facility] [address] [place] [address] Dr. Jerry Samuel Protein [Mass/Vol] 6.9 g/dL Normal 6.4-8.2 [facility] Comment on above: Performed By: #### R PRQ #### [facility] [address] [address] [address] Jerry Samuel Sodium [Moles/Vol] 135 mmol/L Critically low 136-145 [facility] Comment on above: Performed By: #### R PRQ #### [facility] [address] [place] [address] Dr. Jerry Samuel Urea nitrogen [Mass/Vol] 6.0 mg/dL Critically low 7.0-18.[address] [facility] Comment on above: Performed By: #### R PRQ #### [facility] [address] [place] [address] Dr. Jerry Samuel Urea nitrogen/Creatinine [Mass ratio] 15.0 mg/mg Normal [facility] Comment on above: Performed By: #### R PRQ #### [facility] [address] [place] [address] Dr. Jerry Samuel DOROTEO BOX TEST PT SEND OUTo n 05-02-2022 SENT TO REF LAB 05/02/2022 Normal [facility] Comment on above: Performed By: #### N BOX #### [facility] [address] [place] [address] Dr. Jerry Samuel HEP B SURFACE ANTIGEN SCREEN on 04-05-2022 HBsAg Screen Negative Normal Negative [facility] Comment on above: Performed By: #### N BOX #### [facility] [address] [place] [address] Dr. Jerry Samuel HEPATITIS C VIRUS AB W/ REFL EX QUANTon 04-05-2022 HCV AB <0.1 Normal 0.0-0.[address] [facility] Comment on above: Performed By: #### H CVPCRR #### [facility] [address] [place] [address] Dr. Jerry Samuel Interpretation: Comment Normal [facility] Comment on above: Result Comment: Nega tive Not infected with HCV, unless recent infection is suspected or other evidence exists to indicate HCV infection. Performed By: #### H CVPCRR #### [facility] [address] [place] [address] Dr. Jerry Samuel HIV 1 AND 2 WITH REFLEXon HIV Screen 4th Generation wRfx Non-Reactive Normal Non Reactive [facility] Comment on above: Result Comment: HIV Negative HIV-1/HIV-2 antibodies and HIV-1 p24 antigen were NOT detected. There is no laboratory evidence of HIV infection. Performed By: #### R PRQ #### [facility] [address] [place] [address] Dr. Jerry Samuel RPR QUANTon 04-05-2022 Rapid Plasma Reagin, Quant Non-Reactive Normal NonRea<1:1 [facility] Comment on above: Result Comment: Nathaly wilkes Note: This test does not meet current guidelines for screening and diagnosis of syphilis. This test is intended for following treatment response in patients being treated for syphilis infection. To screen for syphilis infection, a reflex cascade that includes both RPR and a treponema-specific assay should be utilized, such as Treponema pallidum (Syphilis) Screening [place] (125051) or Rapid Plasma Reagin (RPR) Test With Reflex to Quantitative RPR and Confirmatory Treponema pallidum Antibodies (155324). Performed By: #### R PRQ #### [facility] [address] [place] [address] Dr. Jerry Samuel RUBELLA AB IGGon 04-05-2022 Rubella Antibodies, IgG 1.97 index Normal Immune >0.[address] [facility] Comment on above: Result Comment: Non- immune <0.90 Equivocal 0.90 - 0.99 Immune >0.99 Performed By: #### R UBIGG #### [facility] [address] [place] [address] Dr. Jerry Samuel CBC AUTO DIFFon 04-04-2022 BASO # 0.0 103/ul Normal 0.0-0.[address] [facility] Comment on above: Performed By: #### R PRQ #### [facility] [address] [place] [address] Dr. Jerry aSmuel Basophils/100 WBC (Bld) 0.3 % Normal 0.2-2.0 [facility] Comment on above: Performed By: #### R PRQ #### [facility] [address] [place] [address] Dr. Jerry Samuel EO # 0.1 103/ul Normal 0.0-0.7 [facility] Comment on above: Performed By: #### R PRQ #### [facility] [address] [place] [address] Dr. Jerry Samuel Eosinophils/100 WBC (Bld) 0.7 % Critically low 0.9-7.0 [facility] Comment on above: Performed By: #### R PRQ #### [facility] [address] [place] [address] Dr. Jerry Samuel Erythrocyte distribution width (RBC) [Ratio] 12.3 % Normal 11.0-15.[address] [facility] Comment on above: Performed By: #### R PRQ #### [facility] [address] [place] [address] Dr. Jerry Samuel Hematocrit (Bld) [Volume fraction] 35.1 % Critically low 36.0-48.[address] [facility] Comment on above: Performed By: #### R PRQ #### [facility] [address] [place] [address] Dr. Jerry Samuel Hemoglobin (Bld) [Mass/Vol] 11.8 g/dL Critically low 12.0-16.[address] [facility] Comment on above: Performed By: #### R PRQ #### [facility] [address] [place] [address] Dr. Jerry Samuel IG # 0.02 10e3/ul Normal 0.00-0.[address] [facility] Comment on above: Performed By: #### R PRQ #### [facility] [address] [place] [address] Dr. Jerry Samuel IG % 0.3 % Normal 0.0-0.[address] [facility] Comment on above: Performed By: #### R PRQ #### [facility] [address] [place] [address] Dr. Jerry Samuel LYMPH # 2.0 103/ul Normal 1.2-3.8 [facility] Comment on above: Performed By: #### R PRQ #### [facility] [address] [place] [address] Dr. Jerry Samuel Lymphocytes/100 WBC (Bld) 26.7 % Normal 20.5-60.[address] [facility] Comment on above: Performed By: #### R PRQ #### [facility] [address] [place] [address] Dr. Jerry Samuel MANUAL DIFF REQ NO Normal [facility] Comment on above: Performed By: #### R PRQ #### [facility] [address] [place] [address] Dr. Jerry Samuel MCH (RBC) [Entitic mass] 29.0 pg Normal 26.7-34.0 [facility] Comment on above: Performed By: #### R PRQ #### [facility] [address] [place] [address] Dr. Jerry Samuel MCHC (RBC) [Mass/Vol] 33.6 g/dL Normal 29.9-35.2 [facility] Comment on above: Performed By: #### R PRQ #### [facility] [address] [place] [address] Dr. Jerry Samuel MCV (RBC) [Entitic vol] 86.2 fL Normal 81.0-99.[address] [facility] Comment on above: Performed By: #### R PRQ #### [facility] [address] [place] [address] Dr. Jerry Samuel MONO # 0.5 103/ul Normal 0.3-0.8 [facility] Comment on above: Performed By: #### R PRQ #### [facility] [address] [place] [address] Dr. Jerry Samuel Monocytes/100 WBC (Bld) 6.7 % Normal 1.7-12.0 [facility] Comment on above: Performed By: #### R PRQ #### [facility] [address] [place] [address] Dr. Jerry Samuel NEUT # 4.9 103/ul Normal 1.4-6.5 [facility] Comment on above: Performed By: #### R PRQ #### [facility] [address] [place] [address] Dr. Jerry Samuel Neutrophils/100 WBC (Bld) 65.3 % Normal 43.0-75.0 [facility] Comment on above: Performed By: #### R PRQ #### [facility] [address] [place] [address] Dr. Jerry Samuel Platelet mean volume (Bld) [Entitic vol] 10.0 fL Normal 9.5-13.5 [facility] Comment on above: Performed By: #### R PRQ #### [facility] [address] [address] [address] Jerry Samuel PLT 218 103/ul Normal 150-[address] [facility] Comment on above: Performed By: #### R PRQ #### [facility] [address] [address] [address] Jerry Samuel RBC 4.07 106/ul Critically low 4.20-5.40 [facility] Comment on above: Performed By: #### R PRQ #### [facility] [address] [address] [address] Jerry Samuel WBC 7.5 103/ul Normal 4.0-11.[address] [facility] Comment on above: Performed By: #### R PRQ #### [facility] [address] [place] [address] Dr. Jerry Samuel CULTURE URINEon 04-04-2022 CULTURE URINE Culture Observations : NO GROWTH. Normal [facility] Comment on above: Performed By: #### N BOX #### [facility] [address] [place] [address] Dr. Jerry Samuel GLYCOHEMOGLOBIN A1Con 2021 ADA RECOMMENDATION SEE BELOW Normal [facility] Comment on above: Result Comment: ADA RECOMMENDED LIMIT 4.0 - 6.0 ADA THERAPEUTIC TARGET < 7.0 ACTION SUGGESTED > 7.0 Performed By: #### N BOX #### [facility] [address] [place] [address] Dr. Jerry Samuel Glucose [Mass/Vol] 97 mg/dL Normal [facility] Comment on above: Performed By: #### N BOX #### [facility] [address] [address] [address] Jerry Samuel HbA1c (Bld) [Mass fraction] 5.0 % Normal 4.5-6.[address] [facility] Comment on above: Performed By: #### N BOX #### [facility] [address] [place] [address] Dr. Jerry Samuel TYPE AND SCREENon 04-04-2022 TYPE AND SCREEN Negative Normal [facility] Comment on above: Performed By: #### N BOX #### [facility] [address] [place] [address] Dr. Jerry Samuel US PREG TVon 04-04-2022 [...] EDITH WILLIS Date: 2022-04-04 16:13 Normal [facility] PREG QUANT HCGon 03-07-2022 HCG QUANT 2201 mIU/mL Normal [facility] Comment on above: Performed By: #### R PRQ #### [facility] [address] [place] [address] Dr. Jerry Samuel HCG RANGE SEE BELOW Normal [facility] Comment on above: Result Comment: 5-50 0.2-1 WEEK 50-500 1-2 WEEKS 100-5,000 2-3 WEEKS 500-10,000 3-4 WEEKS 1,000-50,000 4-5 WEEKS 10,000-100,000 5-6 WEEKS 15,000-200,000 6-8 WEEKS 10,000-100,000 2-3 MONTHS Performed By: #### R PRQ #### [facility] [address] [place] [address] Dr. Jerry Samuel PREG QUANT HCGon 03-05-2022 HCG QUANT 820 mIU/mL Normal [facility] Comment on above: Performed By: #### R PRQ #### [facility] [address] [place] [address] Dr. Jerry Samuel HCG RANGE SEE BELOW Normal [facility] Comment on above: Result Comment: 5-50 0.2-1 WEEK 50-500 1-2 WEEKS 100-5,000 2-3 WEEKS 500-10,000 3-4 WEEKS 1,000-50,000 4-5 WEEKS 10,000-100,000 5-6 WEEKS 15,000-200,000 6-8 WEEKS 10,000-100,000 2-3 MONTHS Performed By: #### R PRQ #### [facility] [address] [place] [address] Dr. Jerry Samuel PAP ACOG PANEL 2: 21 to 29on 02-21-2022 . . Normal [facility] Comment on above: Performed By: #### R PRQ #### [facility] [address] [place] [address] Dr. Jerry Samuel Age Gdln ACOG Testing - [facility] Comment on above: Performed By: #### R PRQ #### [facility] [address] [place] [address] Dr. Jerry Samuel DIAGNOSIS: Comment [facility] Comment on above: Result Comment: NEGA TIVE FOR INTRAEPITHELIAL LESION OR MALIGNANCY. SPECIMEN REPROCESSED FOR INTERPRETATION. Performed By: #### R PRQ #### [facility] [address] [place] [address] Dr. Jerry Samuel Methodology: Comment [facility] Comment on above: Result Comment: This liquid based ThinPrep(R) pap test was screened with the use of an image guided system. Performed By: #### R PRQ #### [facility] [address] [place] [address] Dr. Jerry Samuel Note: Comment [facility] Comment on above: Result Comment: The Pap smear is a screening test designed to aid in the detection of premalignant and malignant conditions of the uterine cervix. It is not a diagnostic procedure and should not be used as the sole means of detecting cervical cancer. Both false-positive and false-negative reports do occur. . Performed By: #### R PRQ #### [facility] [address] [place] [address] Dr. Jerry Samuel Performed by: Comment [facility] Comment on above: Result Comment: Anders Roman, Airdox Fitter (ASCP) Performed By: #### R PRQ #### [facility] [address] [place] [address] Dr. Jerry Samuel Reflex Criteria: Comment Normal [facility] Comment on above: Result Comment: The HPV DNA reflex criteria were not met with this specimen result therefore, no HPV testing was performed. . Performed By: #### R PRQ #### [facility] [address] [place] [address] Dr. Jerry Samuel Specimen adequacy: Comment Normal [facility] Comment on above: Result Comment: Sati sfactory for evaluation. Endocervical and/or squamous metaplastic cells (endocervical component) are present. Performed By: #### R PRQ #### [facility] [address] [place] [address] Dr. Jerry Samuel US PELVIS AND TRANSVAGon [...] EDITH WILLIS Date: 2022-02-13 14:34 Normal [facility] CBC AUTO DIFFon 02-12-2022 BASO # 0.0 103/ul Normal 0.0-0.[address] [facility] Comment on above: Performed By: #### C BC #### [facility] [address] [place] [address] Dr. Jerry Samuel Basophils/100 WBC (Bld) 0.6 % Normal 0.2-2.[address] [facility] Comment on above: Performed By: #### C BC #### [facility] [address] [place] [address] Dr. Jerry Samuel EO # 0.1 103/ul Normal 0.0-0.7 [facility] Comment on above: Performed By: #### C BC #### [facility] [address] [place] [address] Dr. Jerry Samuel Eosinophils/100 WBC (Bld) 1.2 % Normal 0.9-7.0 [facility] Comment on above: Performed By: #### C BC #### [facility] [address] [place] [address] Dr. Jerry Samuel Erythrocyte distribution width (RBC) [Ratio] 11.9 % Normal 11.0-15.0 [facility] Comment on above: Performed By: #### C BC #### [facility] [address] [place] [address] Dr. Jerry Samuel Hematocrit (Bld) [Volume fraction] 39.1 % Normal 36.0-48.[address] [facility] Comment on above: Performed By: #### C BC #### [facility] [address] [place] [address] Dr. Jerry Samuel Hemoglobin (Bld) [Mass/Vol] 13.0 g/dL Normal 12.0-16.[address] [facility] Comment on above: Performed By: #### C BC #### [facility] [address] [place] [address] Dr. Jerry Samuel IG # 0.01 10e3/ul Normal 0.00-0.03 [facility] Comment on above: Performed By: #### C BC #### [facility] [address] [place] [address] Dr. Jerry Samuel IG % 0.2 % Normal 0.0-0.5 [facility] Comment on above: Performed By: #### C BC #### [facility] [address] [place] [address] Dr. Jerry Samuel LYMPH # 2.4 103/ul Normal 1.2-3.8 [facility] Comment on above: Performed By: #### C BC #### [facility] [address] [place] [address] Dr. Jerry Samuel Lymphocytes/100 WBC (Bld) 37.7 % Normal 20.5-60.[address] [facility] Comment on above: Performed By: #### C BC #### [facility] [address] [place] [address] Dr. Jerry Samuel MANUAL DIFF REQ NO Normal [facility] Comment on above: Performed By: #### C BC #### [facility] [address] [place] [address] Dr. Jerry Samuel MCH (RBC) [Entitic mass] 29.2 pg Normal 26.7-34.0 [facility] Comment on above: Performed By: #### C BC #### [facility] [address] [place] [address] Dr. Jerry Samuel MCHC (RBC) [Mass/Vol] 33.2 g/dL Normal 29.9-35.[address] [facility] Comment on above: Performed By: #### C BC #### [facility] [address] [place] [address] Dr. Jerry Samuel MCV (RBC) [Entitic vol] 87.9 fL Normal 81.0-99.0 [facility] Comment on above: Performed By: #### C BC #### [facility] [address] [place] [address] Dr. Jerry Samuel MONO # 0.4 103/ul Normal 0.3-0.8 [facility] Comment on above: Performed By: #### C BC #### [facility] [address] [place] [address] Dr. Jerry Samuel Monocytes/100 WBC (Bld) 5.9 % Normal 1.7-12.0 [facility] Comment on above: Performed By: #### C BC #### [facility] [address] [place] [address] Dr. Jerry Samuel NEUT # 3.5 103/ul Normal 1.4-6.5 [facility] Comment on above: Performed By: #### C BC #### [facility] [address] [place] [address] Dr. Jerry Samuel Neutrophils/100 WBC (Bld) 54.4 % Normal 43.0-75.[address] [facility] Comment on above: Performed By: #### C BC #### [facility] [address] [place] [address] Dr. Jerry Samuel Platelet mean volume (Bld) [Entitic vol] 9.9 fL Normal 9.5-13.[address] [facility] Comment on above: Performed By: #### C BC #### [facility] [address] [place] [address] Dr. Jerry Samuel PLT 229 103/ul Normal 150-450 [facility] Comment on above: Performed By: #### C BC #### [facility] [address] [place] [address] Dr. Jerry Samuel RBC 4.45 106/ul Normal 4.20-5.[address] [facility] Comment on above: Performed By: #### C BC #### [facility] [address] [place] [address] Dr. Jerry Samuel WBC 6.5 103/ul Normal 4.0-11.[address] [facility] Comment on above: Performed By: #### C BC #### [facility] [address] [place] [address] Dr. Jerry Samuel FREE T4on 02-12-2022 Free T4 [Mass/Vol] 0.99 ng/dL Normal 0.76-1.46 [facility] Comment on above: Performed By: #### R PRQ #### [facility] [address] [place] [address] Dr. Jerry Samuel GLYCOHEMOGLOBIN A1Con 2021 ADA RECOMMENDATION SEE BELOW Normal [facility] Comment on above: Result Comment: ADA RECOMMENDED LIMIT 4.0 - 6.0 ADA THERAPEUTIC TARGET < 7.0 ACTION SUGGESTED > 7.0 Performed By: #### R PRQ #### [facility] [address] [place] [address] Dr. Jerry Samuel Glucose [Mass/Vol] 103 mg/dL Normal [facility] Comment on above: Performed By: #### R PRQ #### [facility] [address] [place] [address] Dr. Jerry Samuel HbA1c (Bld) [Mass fraction] 5.2 % Normal 4.5-6.2 [facility] Comment on above: Performed By: #### R PRQ #### [facility] [address] [place] [address] Dr. Jerry Samuel PROTIMEon 02-12-2022 INR Coag (PPP) [Relative time] 1.00 {INR} Normal [facility] Comment on above: Performed By: #### N BOX #### [facility] [address] [place] [address] Dr. Jerry Samuel INR GUIDELINES SEE BELOW Normal [facility] Comment on above: Result Comment: SACHA RED INR: 2.0 - 3.0 CONDITIONS NOT LISTED BELOW 2.5 - 3.5 FOR PROSTHETIC HEART VALVE REPLACEMENT 2.5 - 3.5 RECURRENT THROMBOSIS Performed By: #### N BOX #### [facility] [address] [place] [address] Dr. Jerry Samuel PT Coag (PPP) [Time] 10.8 s Normal 9.0-11.6 [facility] Comment on above: Performed By: #### N BOX #### [facility] [address] [place] [address] Dr. Jerry Samuel PTTon 02-12-2022 aPTT Coag (Bld) [Time] 27.8 s Normal 22.3-36.2 [facility] Comment on above: Performed By: #### N BOX #### [facility] [address] [place] [address] Dr. Jerry Samuel TSHon 02-12-2022 TSH 1.741 uIU/mL Normal 0.358-3.740 [facility] Comment on above: Performed By: #### T SH #### [facility] [address] [place] [address] Dr. Jerry Samuel [facility] 11-20-2021 Outside Records [id number]#1.00OTG TIFF Normal [facility] Outside [facility] 11-16-2021 Outside Records [id number]#1.00OT GTIFF Normal [facility] HCG,Urineon 02-22-2021 Beta HCG ( test) Ql (U) Negative Normal [facility] Comment on above: Result Comment: PERF ORMED BY: [place] [address] PATHOLOGIST ASSISTANT PROFESSOR OF FORESTRY PRIYA WHITE M.D. Performed By: #### U HCG #### [id number] [facility] 02-22-2021 L ---- Specimen: [id number] Received: 02/23/21 Status: DRE Elizabeth Num: [id number] Spec Type: Surgical Subm Dr: Edith Cagle Jr, Tissues: A Duodenum - Biopsy (DUODENUM BX) B Stomach - Biopsy/Polyp (ANTRUM BX) C Colon Biopsy (RANDOM COLON) Procedures: HE Stain/6, Gross/Micro L4/3 Patient Age/Sex Location Account Attending Physician Will Shay Jose Luis / [id number] Edith Cagle Jr, DO SPEC NUM: [id number] RECD: 02/23/21 STATUS: DRE ELIZABETH NUM: [id number] CASIMIRO: 02/22/21- DR: Edith Cagle Jr, DO ENTERED: 02/23/[address]: ANITA TYPE: Surgical DEPT: S ENTERED BY: [id number] RECV BY: [id number] ORDERED: HE Stain/6, Gross/Micro L4/3 ORDERED: HE [...] in one cassette labeled B1. (SM/YJ) Specimen: [id number] Received: 02/23/21 Status: DRE Elizabeth Num: [id number] Spec Type: Surgical Subm Dr: Edith Cagle Jr, DO Tissues: A Duodenum - Biopsy (DUODENUM BX) B Stomach - Biopsy/Polyp (ANTRUM BX) C Colon Biopsy (RANDOM COLON) Procedures: HE Stain/6, Gross/Micro L4/3 Patient: LauritaNenomaria e Amaya [id number] (Continued) Specimen: Received: 02/23/21 (Continued) Gross Description (Continued) Signed (signature on file) Gail Crockett MD 02/26/21 1601 Specimen: [id number] Received: 02/23/21 Status: DRE Elizabeth Num: [id number] Spec Type: Surgical Subm Dr: Edith Cagle Jr, DO Tissues: A Duodenum - Biopsy (DUODENUM BX) B Stomach - Biopsy/Polyp (ANTRUM BX) C Colon Biopsy (RANDOM COLON) Procedures: HE Stain/6, Gross/Micro L4/3 Patient: Will Shay [id number] (Continued) Specimen: [id number] Received: 02/23/21 (Continued) Gross Description (Continued) C. [...] were determined by the Laboratory of [facility]. Immunohistochemistry assays have not been validated on decalcified tissue. Results should be interpreted with caution given the possibility of false negative results on decalcified specimens. They have not been cleared by the [place] Food and Drug Administration. The FDA has determined that such clearance or approval is not necessary. CPT Codes 06879?3, 77668 (more content not included)... Normal [facility] SARS-CoV-2 (COVID-19) RNA ELINOR+probe Ql (Unsp spec) Negative Normal Negative [facility] Comment on above: Order Comment: Healt hcare Worker?: N Result Comment: Testing for SARS-CoV-2 by RT-PCR This test was developed and its performance characteristics determined by [employer] ([employer]) and validated at the [facility] [facility]. This test has not been FDA cleared [...] is terminated or revoked sooner. PERFORMED BY: [facility] [place] [address] PATHOLOGIST ASSISTANT PROFESSOR OF FORESTRY PRIYA WHITE M.D. Performed By: #### C OVID 19 [facility] #### [address] Vital Signs Date Time Vital Sign Value Performing Clinician Facility 03-26-2023 13:45-0500 Body height 164.47 cm Ben Rose Other [facility] Other 03-26-2023 13:45-0500 Body mass index (BMI) [Ratio] 29.6 kg/m2 Ben Rose Other [facility] Other 03-26-2023 13:45-0500 Body weight 80.06 kg Ben Rose Other [facility] Other 03-26-2023 13:45-0500 Diastolic blood pressure 74 mm[Hg] Ben Rose Other [facility] Other 03-26-2023 13:45-0500 Systolic blood pressure 120 mm[Hg] Ben Rose Other [facility] Other 06-14-2022 17:07-0500 Body weight 79.[address] EDDIE VALIENTE . [facility] Comment on above: Performed By: #### RPRQ #### [facility] [address] [place] [address] Dr. Jerry Samuel 03-08-2022 11:15-0500 Body height 164.47 cm Ben Rose Other [facility] Other 03-08-2022 11:15-0500 Body mass index (BMI) [Ratio] 29.01 kg/m2 Ben Rose Other [facility] Other 03-08-2022 11:15-0500 Body weight 78.47 kg Ben Rose Other [facility] Other 03-08-2022 11:15-0500 Diastolic blood pressure 73 mm[Hg] Ben Rose Other [facility] Other 03-08-2022 11:15-0500 Systolic blood pressure 113 mm[Hg] Ben Rose Other [facility] Other Encounters Encounter Date Encounter Type Care Provider Facility Start: 12-12-2023 End: 12-12-2023 ambulatory GENTRY KIM Not Available Start: 03-27-2023 End: 03-27-2023 ambulatory GENTRY KIM Not Available Start: 03-26-2023 End: 03-26-2023 ambulatory Ben Rose Other [facility] Other Start: 03-26-2023 Patient encounter procedure [facility] Start: 03-05-2023 End: 03-05-2023 ambulatory EDDIE VALIENTE Not Available Start: 01-24-2023 End: 01-24-2023 ambulatory Ben Rose Other [facility] Other Start: 01-24-2023 Telephone encounter Ben FORD [...] 03-08-2022 End: 03-08-2022 ambulatory Ben Rose Other [facility] Other Start: 03-08-2022 Patient encounter procedure Ben Rose [facility] Start: 03-07-2022 End: 03-08-[address] EDDIE VALIENTE . Facility:[facility] Start: 03-05-2022 End: 03-06-2022 ambulatory ANGELES MIKAEL Facility:[facility] Start: 02-13-2022 End: 02-14-2022 ambulatory AGNELES MIKAEL Facility:[facility] Start: 02-12-2022 End: 02-12-2022 ambulatory ANGELES MIKAEL Facility:[facility] Start: 02-12-2022 End: 02-13-2022 ambulatory ANGELES MIKAEL Facility:[facility] Start: 11-12-2021 End: 11-20-2021 ambulatory ANGELES MIKAEL Facility:[facility] Start: 11-06-2021 End: 11-06-2021 ambulatory Angeles A Mikael COTTRELL OPERATOR-C Facility:[facility] Start: 11-05-2021 End: 11-06-2021 ambulatory Angeles A Mikael COTTRELL OPERATOR-C Facility:[facility] Immunizations Immunization Date Immunization Notes Care Provider [facility] 11-08-2014 human papilloma viru s vaccine, quadrivalent Ben Rose Other [facility] Other Payers Date Payer Category Payer Unknown [id number] 2021 Unknown [id number] 1996 Unknown [id number] 2.16.84 0.1.209667.3.579.2.718 1996 Unknown [id number] 2.16.8 40.1.333397.3.579.2.718 1996 Unknown [id number] 2.16.84 0.1.353522.3.579.2.593 1996 Unknown [id number] 2.16.84 0.1.993506.3.579.2.593 1996 Unknown [id number] 2.16.84 0.1.223091.3.579.2.593 1996 Unknown [id number] 2.16.84 0.1.563170.3.579.2.593 1996 Unknown [id number] 2.16.84 0.1.532657.3.579.2.593 1996 Unknown [id number] 2.16.84 0.1.935721.3.579.2.593 1996 Unknown [id number] 2.16.84 0.1.787518.3.579.2.593 1996 Unknown [id number] 2.16.84 0.1.884913.3.579.2.593 1996 Unknown [id number] 2.16.84 0.1.611876.3.579.2.593 1996 Unknown [id number] 2.16.84 0.1.475267.3.579.2.593 1996 Unknown [id number] 2.16.84 0.1.850599.3.579.2.593 1996 Unknown [id number] 2.16.84 0.1.804874.3.579.2.593 1996 Unknown [id number] 2.16.84 0.1.314514.3.579.2.593 1996 Unknown [id number] 2.16.84 0.1.908562.3.579.2.593 1996 Unknown [id number] 2.16.84 0.1.471198.3.579.2.593 1996 Unknown [id number] 2.16.84 0.1.546808.3.579.2.1259 1996 Unknown [id number] 2.16.840 .1.886818.3.579.2.1259 1996 Unknown [id number] 2.16.840 .1.366049.3.579.2.1259 1959 Self-pay 1959 Unknown [id number] 2.16. 840.1.141351.19 1959 Unknown [id number] 2. 16.840.1.678481.19 1959 Unknown [id number] 1959 Unknown [id number] Unknown [id number] 2.16.84 0.1.216582.3.579.2.593 Social History Date Type Detail Facility Unknown if ever smoked [facility] Other Sex Assigned At Sex Assigned At [facility] Other Evaluation note 03-26-2023 Note Date & [...] call office if she has no improvement [facility] Other Evaluation note 01-24-2023 Note Date & Type Note Facility 01-24-2023 Evaluation note Encounter Date Diagnosis Assessment Notes Jan, Epigastric burning sensation (ICD-10 - R10.13) [facility] Other Evaluation note 03-08-2022 Note Date & [...] DAILY CONTINUE LEVSIN NEEDED RTO 1 YR [facility] Other History general Narrative - Reported Note Date & Type Note Facility History general Narrative - Reported Type Medical History scoliosis Medical History hx of mono Surgical History [place] teeth x4 [facility] Other History general Narrative - Reported Note Date & Type Note Facility History general Narrative - Reported Type Medical History scoliosis Medical History hx of mono Surgical History [place] teeth x4 Surgical History C section [facility] Other Summary Purpose Family History No Family History Records FoundNo Family History Records FoundNo Family History Records FoundNo Family History Records Found Advance Directives No Advanced Directives Records FoundNo Advanced Directives Records FoundNo Advanced Directives Records FoundNo Advanced Directives Records Found Additional Source Comments INFORMATION SOURCE (unrecogn ized section and content) DATE CREATED AUTHOR 02/27/2021 [facility] DATE CREATED AUTHOR AUTHOR'S ORGANIZ ATION 07/24/2022 [facility] DATE CREATED AUTHOR AUTHOR'S ORGANIZ ATION 08/08/2022 [facility] DATE CREATED AUTHOR AUTHOR'S ORGANIZ ATION 12/14/2023 [facility] EPIC REASON FOR VISIT (unrecogniz ed [...] BE BASED ON THE PRIMARY CLINICAL RECORDS. [employer] provides no warranty or guarantee of the accuracy or completeness of information in this document.
[2023-12-16 16:42] LABS: Basophils Percent Auto 0.4 % (0.2-2.0); Eosinophils Percent Auto 0.4 % (0.9-7.0); Hematocrit 38.1 % (36.0-48.0); Hemoglobin 12.5 g/dL (12.0-16.0); Immature Granulocytes Abs Auto 0.02 10^3/uL (0.00-0.03); Immature Granulocytes Pct Auto 0.3 % (0.0-0.5); Lymphocytes Absolute Auto 1.5 10^3/uL (1.2-3.8); Lymphocytes Percent Auto 20.9 % (20.5-60.0); Mean Corpuscular HGB Conc 32.8 g/dL (29.9-35.2); Mean Corpuscular Volume 85.4 fL (81.0-99.0); Mean Platelet Volume 10.4 fL (9.5-13.5); Monocytes Absolute Auto 0.7 10^3/uL (0.3-0.8); Monocytes Percent Auto 9.4 % (1.7-12.0); Neutrophils Absolute Auto 4.8 10^3/uL (1.4-6.5); Neutrophils Percent Auto 68.6 % (43.0-75.0); Platelet Count 257 10^3/uL (150-450); Red Blood Count 4.46 10^6/uL (4.20-5.40); Red Cell Distribution Width 13.1 % (11.0-15.0)
[2023-12-16] MEDS: 0.9 % SODIUM CHLORIDE 1,000 ML 1000 ML IV ×2 (17:04→17:55)
[2023-12-16] MEDS: ONDANSETRON PF 4 MG/2 ML VIAL IV (17:04)
[2023-12-16 17:13] LABS: Alanine Aminotransferase 19 U/L (14-59); Albumin Level 3.6 g/dL (3.4-5.0); Alkaline Phosphatase 43 U/L (46-116); Aspartate Amino Transferase 19 U/L (15-37); BUN Creatinine Ratio 11.8; Bilirubin Total 0.5 mg/dL (0.2-1.0); Carbon Dioxide 25.8 mmol/L (21.0-32.0); Chloride 101 mmol/L (98-107); Estimated GFR (African America >60 (>=60); Estimated GFR (Non-African Ame >60 (>=60); Globulin 3.7 g/dL; Glucose 91 mg/dL (74-106); Potassium 3.8 mmol/L (3.5-5.1); Sodium 137 mmol/L (136-145); Total Protein 7.3 g/dL (6.4-8.2)
[2023-12-16] MEDS: PROMETHAZINE HCL 12.5 MG in 0.9 % SODIUM CHLORIDE 50 ML 202 MG IV (18:26)
--- NOTE | 2023-12-16 18:32 | PC.NURSE ---
1822 JOSIAH Lofton, in the room discussing next steps with pt. Promethazine hung at this time. Pt denies any needs
[2023-12-16 19:17] LABS: Bilirubin Urine NEGATIVE (NEGATIVE); Blood Urine NEGATIVE (NEGATIVE); Clarity Urine CLEAR (CLEAR); Color Urine YELLOW (YELLOW); Glucose Urine UA NEGATIVE (NEGATIVE); Ketones Urine >=80 mg/dL (NEGATIVE); Leukocyte Esterase Urine NEGATIVE (NEGATIVE); Nitrite Urine NEGATIVE (NEGATIVE); Protein Urine NEGATIVE (NEG/TRACE); Specific Gravity Urine >=1.030 (1.005-1.025); Urobilinogen Urine 0.2 EU/dL (0.2-1.0)
--- NOTE | 2023-12-16 19:29 | ED_ITS ---
HPI HPI - General Adult General Chief complaint: Nausea/Vomiting/Diarrhea Stated complaint: General Weakness Time Seen by Provider: 12/16/23 16:19 Source: patient Mode of arrival: walk-in Limitations: no limitations History of Present Illness HPI narrative: 28-year-old 2 para 1 presents chief complaint nausea vomiting. She states she been able unable to keep any fluids down. She had her intake last week by her [facility] office. Patient called office today was referred to the emergency room for fluids as the office was closed. Patient did not need a Zofran pump previously but she was taking Zofran. Patient is alert and oriented denies any pain vaginal bleeding or discharge. She is afebrile nontoxic Related Data Home Medications ?Medication ?Instructions ?Recorded ?Confirmed citalopram 20 mg tablet (Celexa) 10 mg PO DAILY 10/11/22 12/16/23 pantoprazole 40 mg tablet,delayed 40 mg PO DAILY 10/11/22 12/16/23 release vit no.95-ferrous 1 tab PO DAILY 10/15/22 12/16/23 fumarate 28 mg-folic acid 800 mcg tablet () esomeprazole magnesium 40 mg mg 12/16/23 capsule,delayed release metoclopramide HCl 10 mg tablet mg 12/16/23 nitrofurantoin 12/16/23 monohydrate/macrocrystals 100 mg capsule Previous Rx's ?Medication ?Instructions ?Recorded meclizine 25 mg tablet 25 mg PO QID PRN dizziness #20 tabs 11/13/23 ondansetron 4 mg disintegrating 4 mg PO Q6H PRN nausea and 11/13/23 tablet vomiting #20 tabs Allergies Allergy/AdvReac Type Severity Reaction Status Date / Time Penicillins AdvReac Intermediate rash Verified 12/16/23 15:32 Opioid HPI Opioid Management Most Recent Opioid Data: Last Pain Scale 2 11/11/22 12:08 Ur Phencyclidine Scrn Negative (NEGATIVE) 11/08/22 05:15 Review of Systems ROS Narrative All Systems are negative except as noted/marked.All systems reviewed and otherwise negative [facility] Medical History (Updated 12/16/23 @ 19:27 by Kirsty Fenton) delivery delivered ?O82 - Encounter for delivery without indication (ICD-10) Gastritis ?K29.70 - Gastritis, unspecified, without bleeding (ICD-10) Depression ?F32.A - Depression, unspecified (ICD-10) Anxiety ?F41.9 - Anxiety disorder, unspecified (ICD-10) Family History (Updated 11/08/22 @ 05:12 by Ivan Silverman) Grandmother Family history of cancer Family history of diabetes mellitus Grandfather Family history of myocardial infarction Other Family history of stroke Social History (Updated 11/08/22 @ 05:14 by Ivan Silverman) Within the past year, how often did you have a drink containing alcohol: never Within the past year, how often did you have six or more drinks on one occasion: never Score interpretation: A score less than 3 is consistent with normal alcohol consumption. Smoking status: Never smoker Non-prescribed substance use: denies use Highest level of school completed/degree received: Associate degree: academic program Are you now , , , , never or living with a partner: In a typical week, how many times do you talk on the telephone with family, friends, or neighbors: 3 or more times per week How often do you get together with friends or relatives: twice per week How often do you attend sikh or islam services: 4 or more times per year Do you belong to any clubs or organizations such as sikh groups unions, fraternal or athletic groups, or school groups: no Total score: 3 Score interpretation: A score of greater than or equal to [address] [facility] [address] level of social isolation. Little interest or pleasure in doing things: not at all Feeling down, depressed, or hopeless: not at all Feel stressed/tense/nervous/anxious/difficulty sleeping: only a little Do you think of yourself as: straight/heterosexual Gender Identity: female Exam Narrative Exam Narrative: Nurses note and vital signs reviewed and patient is not hypoxic. General: The patient appears well and in no apparent distress. Patient is resting comfortably on cart. Skin: Warm, dry, no pallor noted. There is no rash noted. Head: Normocephalic, atraumatic Eye: Normal conjunctiva, no drainage, EOMI. PERRL Ears, Nose, Mouth, and Throat: oral mucosa is moist. Nares patent. Mouth without vesicles. Ear canals patent. Tm's without Erythema Cardiovascular: Regular Rate and Rhythm Respiratory: Patient is in no distress, no accessory muscle use, lungs are clear to auscultation, no wheezing, rales or rhonchi Back: non-tender, no CVA tenderness bilaterally to percussion. GI: Normal bowel sounds, no tenderness to palpation, no masses appreciated. No rebound, guarding, or rigidity noted. Musculoskeletal: The patient has no evidence of calf tenderness, no pitting edema, symmetrical pulses noted bilaterally Neurological: A&O x4, normal speech Psychiatric: Cooperative Constitutional Vital Signs, click to edit/add: Last Vital Signs Temp 97.9 F 12/16/23 15:34 Pulse 92 H 12/16/23 15:34 Resp 16 12/16/23 15:34 BP 130/79 12/16/23 15:34 Pulse Ox 100 12/16/23 15:34 O2 Del Method Room Air 12/16/23 15:34 Course Vital Signs Vital signs: Vital Signs Temperature 97.9 F 12/16/23 15:34 Pulse Rate 92 H 12/16/23 15:34 Respiratory Rate 16 12/16/23 15:34 Blood Pressure 130/79 12/16/23 15:34 Pulse Oximetry 100 12/16/23 15:34 Oxygen Delivery Method Room Air 12/16/23 15:34 Temperature 97.9 F 12/16/23 15:34 Pulse Rate 92 H 12/16/23 15:34 Respiratory Rate 16 12/16/23 15:34 Blood Pressure 130/79 12/16/23 15:34 Pulse Oximetry 100 12/16/23 15:34 Oxygen Delivery Method Room Air 12/16/23 15:34 Medical Decision Making MDM Narrative Medical decision making narrative: 28-year-old 2 para 1 presents chief complaint nausea vomiting. She states she been able unable to keep any fluids down. She had her intake last week by her [facility] office. Patient called office today was referred to the emergency room for fluids as the office was closed. Patient did not need a Zofran pump previously but she was taking Zofran. Patient is alert and oriented denies any pain vaginal bleeding or discharge. She is afebrile nontoxic Room IV was established she was given 2 L of IV fluids Zofran and then Phenergan. She was able to tolerate crackers and ice chips. She does feel be tter at this time. Patient is going to follow-up in her [facility] office tomorrow. It has been sped up and she will have it IV Zofran pump at home through [facility]. We will discuss this in office with her tomorrow. Patient is stable to discharge to home feels much better. Vital signs are stable blood work including CBC CMP are within normal limits. Urinalysis is negative for infection. Medical Records Medical records reviewed: Yes I reviewed the patient's medical records Lab Data Lab results reviewed: Yes I reviewed the patient's lab results Labs: Lab Results 12/16/23 12/16/23 Range/Units 16:15 18:40 WBC 7.0 (4.0-11.0) 10^3/uL RBC 4.46 (4.20-5.40) 10^6/uL Hgb 12.5 (12.0-16.0) g/dL Hct 38.1 (36.0-48.0) % MCV 85.4 (81.0-99.0) fL MCH 28.0 (26.7-34.0) pg MCHC 32.8 (29.9-35.2) g/dL RDW 13.1 (11.0-15.0) % Plt Count 257 (150-450) 10^3/uL MPV 10.4 (9.5-13.5) fL Neut % (Auto) 68.6 (43.0-75.0) % Lymph % (Auto) 20.9 (20.5-60.0) % [place] % (Auto) 9.4 (1.7-12.0) % Eos % (Auto) 0.4 L (0.9-7.0) % Baso % (Auto) 0.4 (0.2-2.0) % Neut # (Auto) 4.8 (1.4-6.5) 10^3/uL Lymph # (Auto) 1.5 (1.2-3.8) 10^3/uL [place] # (Auto) 0.7 (0.3-0.8) 10^3/uL Eos # (Auto) 0.0 (0.0-0.7) 10^3/uL Baso # (Auto) 0.0 (0.0-0.1) 10^3/uL Abs Immat Gran (auto) 0.02 (0.00-0.03) 10^3/uL Imm/Tot Granulo (auto) 0.3 (0.0-0.5) % Sodium 137 (136-145) mmol/L Potassium 3.8 (3.5-5.1) mmol/L Chloride 101 (98-107) mmol/L Carbon Dioxide 25.8 (21.0-32.0) mmol/L Anion Gap 14.0 BUN 6.0 L (7.0-18.0) mg/dL Creatinine 0.51 L (0.55-1.02) mg/dL Est GFR ( Amer) >60 (>=60) Est GFR (Non-Af Amer) >60 (>=60) BUN/Creatinine Ratio 11.8 Glucose 91 (74-106) mg/dL Calcium 9.0 (8.5-10.1) mg/dL Total Bilirubin 0.5 (0.2-1.0) mg/dL AST 19 (15-37) U/L ALT 19 (14-59) U/L Alkaline Phosphatase 43 L (46-116) U/L Total Protein 7.3 (6.4-8.2) g/dL Albumin 3.6 (3.4-5.0) g/dL Globulin 3.7 g/dL Albumin/Globulin Ratio 1.0 Urine Color Yellow (YELLOW) Urine Clarity Clear (CLEAR) Urine pH 6.0 (5.0-9.0) Ur Specific [place] >=1.030 A (1.005-1.025) Urine Protein Negative (NEG/TRACE) mg/dL Urine Glucose (UA) Negative (NEGATIVE) mg/dL Urine Ketones >=80 A (NEGATIVE) mg/dL Urine Occult Blood Negative (NEGATIVE) Urine Nitrite Negative (NEGATIVE) Urine Bilirubin Negative (NEGATIVE) Urine Urobilinogen 0.2 (0.2-1.0) EU/dL Ur Leukocyte Esterase Negative (NEGATIVE) Discharge Plan Discharge Chief Complaint: Nausea/Vomiting/Diarrhea Clinical Impression: Hyperemesis gravidarum Patient Disposition: Home, Self-Care Time of Disposition Decision: 19:26 Condition: Good Prescriptions / Home Meds: No Action pantoprazole 40 mg tablet,delayed release (DR/EC) 40 mg PO DAILY Hold Instructions: change medication citalopram [Celexa] 20 mg tablet 10 mg PO DAILY meclizine 25 mg tablet 25 mg PO QID PRN (Reason: dizziness) Qty: 20 0RF ondansetron 4 mg tablet,disintegrating 4 mg PO Q6H PRN (Reason: nausea and vomiting) Qty: 20 0RF PNV cmb#95-ferrous fumarate-FA [] 28 mg iron- 800 mcg tablet 1 tab PO DAILY esomeprazole magnesium 40 mg capsule,delayed release(DR/EC) nitrofurantoin monohyd/m-cryst 100 mg capsule metoclopramide HCl 10 mg tablet Print Language: [place] Instructions: Hyperemesis Gravidarum (ED) Referrals: Asif Bhatt DO [Physician] - 12/17/23 Physician,Non-Staff, [Primary Care Provider] - 1 week
[2023-12-16 19:31] LABS: Bacteria Urine TRACE #/HPF (NONE SEEN); Cast Seen? NONE SEEN #/LPF (NONE SEEN); Crystals Seen? None Seen #/HPF (None Seen); Mucus Urine NONE SEEN (NONE SEEN); RBC Urine 0-2 #/HPF (0-2); Squamous Epithelial Cell Urine MANY #/LPF (NONE/RARE); WBC Urine 0-2 #/HPF (NONE SEEN)
== END 2023-12-16 19:35 | disposition home or self-care (01) ==
PROVIDERS: Physician Assistant; Emergency Provider Emergency Medicine Emergency Medical Services
DX: O21.0 Mild hyperemesis gravidarum (principal); Z3A.09 9 weeks gestation of pregnancy
CPT/HCPCS: 36415; 80053; 81001; 85025; 96361; 96365; 96375; 99284; J2250; J2405

== ENCOUNTER 2023-12-22 16:15 | Outpatient (OUT) | payer BC, SELFPAY ==
--- OUTSIDE RECORDS SUMMARY | 2023-12-22 16:26 | XMS_ITS | CCD ---
Author Organization [facility]iniSy[facility] Care Team Providers Care Public Accountant Name Role Phone Ben Rose Unavailable Mikael FIELD MARKETING ASSOCIATE-C, [place] A Admitting Unavailable Mikael FIELD MARKETING ASSOCIATE-C, [place] A Attending Unavailable Mikael FIELD MARKETING ASSOCIATE-C, [place] A Primary Care Unavailable Mikael FIELD MARKETING ASSOCIATE-C, [place] A Attending Unavailable Mikael FIELD MARKETING ASSOCIATE-C, [place] A Primary Care Unavailable ROCCO ., [...] Unavailable ROCCO ., DR MORGAN Attending Unavailable [place], DR EDITH [employer] Unavailable ROCCO ., [...] Care Unavaila ble ROCCO, EDDIE Attending Unavailable SHERRON, NORA Attending Unavailable TESGENTRY MCQUEEN Attending Unavailable Allergies Allergy Classification Reported Allergen(s) Allergy Type Date of Onset Reaction(s) Facility (3 sources) Penicillin G Drug Allergy Unknown [facility] Other (1 source) busPIRone; Translations: [buspirone hcl] Drug Allergy [facility] Repository (1 source) Coconut extract; Translations: [coconut] Drug Allergy [facility] Repository (1 source) Penicillins; Translations: [penicillins] Propensity to adverse reactions to drug (disorder) [facility] Repository (1 source) Amoxicillin Drug Allergy [facility] Repository (1 source) Penicillin Drug Allergy [facility] Repository Medications Current Medications Medication Drug Class(es) [...] 07-25-2022 BASO # 0.0 103/ul Normal 0.0-0.1 [facility] Comment on above: Performed By: #### C BC #### [facility] [address] [address] [address] Jerry Samuel Basophils/100 WBC (Bld) 0.3 % Normal 0.2-2.0 [facility] Comment on above: Performed By: #### C BC #### [facility] [address] [address] [address] Jerry Samuel EO # 0.1 103/ul Normal 0.0-0.7 [facility] Comment on above: Performed By: #### C BC #### [facility] [address] [address] [address] Jerry Samuel Eosinophils/100 WBC (Bld) 1.4 % Normal 0.9-7.0 [facility] Comment on above: Performed By: #### C BC #### [facility] [address] [address] [address] Jerry Samuel Erythrocyte distribution width (RBC) [Ratio] 13.2 % Normal 11.0-15.0 [facility] Comment on above: Performed By: #### C BC #### [facility] [address] [address] [address] Jerry Samuel Hematocrit (Bld) [Volume fraction] 33.9 % Critically low 36.0-48.0 [facility] Comment on above: Performed By: #### C BC #### [facility] [address] [address] [address] Jerry Samuel Hemoglobin (Bld) [Mass/Vol] 11.3 g/dL Critically low 12.0-16.0 [facility] Comment on above: Performed By: #### C BC #### [facility] [address] [address] [address] Jerry Samuel IG # 0.04 10e3/ul Critically high 0.00-0.03 [facility] Comment on above: Performed By: #### C BC #### [facility] [address] [place] [address] Dr. Jerry Samuel IG % 0.6 % Critically high 0.0-0.5 [facility] Comment on above: Performed By: #### C BC #### [facility] [address] [place] [address] Dr. Jerry Samuel LYMPH # 1.9 103/ul Normal 1.2-3.8 [facility] Comment on above: Performed By: #### C BC #### [facility] [address] [place] [address] Dr. Jerry Samuel Lymphocytes/100 WBC (Bld) 30.2 % Normal 20.5-60.0 [facility] Comment on above: Performed By: #### C BC #### [facility] [address] [place] [address] Dr. Jerry Samuel MANUAL DIFF REQ NO Normal [facility] Comment on above: Performed By: #### C BC #### [facility] [address] [place] [address] Dr. Jerry Samuel MCH (RBC) [Entitic mass] 29.9 pg Normal 26.7-34.0 [facility] Comment on above: Performed By: #### C BC #### [facility] [address] [place] [address] Dr. Jerry Samuel MCHC (RBC) [Mass/Vol] 33.3 g/dL Normal 29.9-35.2 [facility] Comment on above: Performed By: #### C BC #### [facility] [address] [place] [address] Dr. Jerry Samuel MCV (RBC) [Entitic vol] 89.7 fL Normal 81.0-99.0 [facility] Comment on above: Performed By: #### C BC #### [facility] [address] [place] [address] Dr. Jerry Samuel MONO # 0.5 103/ul Normal 0.3-0.8 [facility] Comment on above: Performed By: #### C BC #### [facility] [address] [address] [address] Jerry Samuel Monocytes/100 WBC (Bld) 7.2 % Normal 1.7-12.0 [facility] Comment on above: Performed By: #### C BC #### [facility] [address] [address] [address] Jerry Samuel NEUT # 3.8 103/ul Normal 1.4-6.5 [facility] Comment on above: Performed By: #### C BC #### [facility] [address] [address] [address] Jerry Samuel Neutrophils/100 WBC (Bld) 60.3 % Normal 43.0-75.0 [facility] Comment on above: Performed By: #### C BC #### [facility] [address] [place] [address] Dr. Jerry Samuel Platelet mean volume (Bld) [Entitic vol] 9.8 fL Normal 9.5-13.5 [facility] Comment on above: Performed By: #### C BC #### [facility] [address] [address] [address] Jerry Samuel PLT 188 103/ul Normal 150-450 [facility] Comment on above: Performed By: #### C BC #### [facility] [address] [place] [address] Dr. Jerry Samuel RBC 3.78 106/ul Critically low 4.20-5.40 [facility] Comment on above: Performed By: #### C BC #### [facility] [address] [place] [address] Dr. Jerry Samuel WBC 6.2 103/ul Normal 4.0-11.0 [facility] Comment on above: Performed By: #### C BC #### [facility] [address] [place] [address] Dr. Jerry Samuel GLUCOSE - 1HRon 07-25-2022 Glucose [Mass/Vol] 100 mg/dL Normal 74-106 [facility] Comment on above: Performed By: #### N BOX #### [facility] [address] [address] [address] Jerry Samuel US PREG ANATOMY SINGLEon [...] ABRIL SCANLON Date: 2022-07-02 13:45 Normal [facility] AFP MATERNAL FOR SPINA BIFID Aon 06-14-2022 AFP MoM 0.87 Normal [facility] Comment on above: Performed By: #### R PRQ #### [facility] [address] [place] [address] Dr. Jerry Samuel AFP Value 39.6 ng/mL Normal [facility] Comment on above: Performed By: #### R PRQ #### [facility] [address] [place] [address] Dr. Jerry Samuel AFP, Serum for Spina Bifida Report Normal [facility] Comment on above: Performed By: #### R PRQ #### [facility] [address] [place] [address] Dr. Jerry Samuel Comment Comment Normal [facility] Comment on above: Result Comment: Irina Petersen, Ph.D., [facility] Director . References: Available Upon Request. . Multiples Of Median Cutoffs For AFP Elevations Patrick 2.5 Black 2.8 IDD 2.0 Twins 4.5 Abbreviation Definitions IDD - Insulin Dep Diabetes OSBR - Open Spina Bifida Risk . For further inquiries contact [employer] Services at [phone]. . This test was developed and its performance characteristics determined by [employer]. It has not been cleared or approved by the Food and Drug Administration. Performed By: #### R PRQ #### [facility] [address] [place] [address] Dr. Jerry Samuel Gest Age Collection Date 18.9 weeks Normal [facility] Comment on above: Performed By: #### R PRQ #### [facility] [address] [place] [address] Dr. Jerry Samuel Gestat, Age Based on Ultrasound Normal [facility] Comment on above: Result Comment: 09.0 on 04/04/2022 Recalculations are not recommended when gestational dating by LMP and ultrasound are within 10 days. Performed By: #### R PRQ #### [facility] [address] [place] [address] Dr. Jerry Samuel Insulin Dep Diabetes No Normal [facility] Comment on above: Performed By: #### R PRQ #### [facility] [address] [place] [address] Dr. Jerry Samuel Interpretation Comment Normal [facility] Comment on above: Result Comment: Inte rpretation: [...] Customer Services to discuss available options. The [employer] recommends amniocentesis be offered to women age 35 and older. Performed By: #### R PRQ #### [facility] [address] [address] [address] Jerry Samuel [age] Normal [facility] Comment on above: Performed By: #### R PRQ #### [facility] [address] [address] [address] Jerry Samuel Multiple Gestation No Normal [facility] Comment on above: Performed By: #### R PRQ #### [facility] [address] [place] [address] Dr. Jerry Samuel OS[place] [address] [place] [address] Normal [facility] Comment on above: Performed By: #### R PRQ #### [facility] [address] [place] [address] Dr. Jerry Samuel PDF . Normal [facility] Comment on above: Performed By: #### R PRQ #### [facility] [address] [address] [address] Jerry Samuel Race [facility] Comment on above: Performed By: #### R PRQ #### [facility] [address] [place] [address] Dr. Jerry Samuel Test Results: Negative Normal [facility] Comment on above: Performed By: #### R PRQ #### [facility] [address] [place] [address] Dr. Jerry Samuel CHLAMYDIA/GONOCOCCUS ELINOR (SW AB/URINE/PAPon 06-07-2022 Chlamydia trachomatis, ELINOR Negative Normal Negative [facility] Comment on above: Performed By: #### R PRQ #### [facility] [address] [place] [address] Dr. Jerry Samuel Neisseria gonorrhoeae, ELINOR Negative Normal Negative [facility] Comment on above: Performed By: #### R PRQ #### [facility] [address] [place] [address] Dr. Jerry Samuel VAGINITIS/VAGINOSIS DNA PROB Nayan 06-06-2022 Margaret species Negative Normal Negative [facility] Comment on above: Performed By: #### V AGINT #### [facility] [address] [place] [address] Dr. Jerry Samuel Gardnerella vaginalis Negative Normal Negative [facility] Comment on above: Performed By: #### V AGINT #### [facility] [address] [place] [address] Dr. Jerry Samuel Trichomonas vaginalis Negative Normal Negative [facility] Comment on above: Performed By: #### V AGINT #### [facility] [address] [place] [address] Dr. Jerry Samuel CBC AUTO DIFFon 05-26-2022 BASO # 0.0 103/ul Normal 0.0-0.1 [facility] Comment on above: Performed By: #### C BC #### [facility] [address] [place] [address] Dr. Jerry Samuel Basophils/100 WBC (Bld) 0.1 % Critically low 0.2-2.0 [facility] Comment on above: Performed By: #### C BC #### [facility] [address] [place] [address] Dr. Jerry Samuel EO # 0.0 103/ul Normal 0.0-0.7 [facility] Comment on above: Performed By: #### C BC #### [facility] [address] [place] [address] Dr. Jerry Samuel Eosinophils/100 WBC (Bld) 0.4 % Critically low 0.9-7.0 [facility] Comment on above: Performed By: #### C BC #### [facility] [address] [place] [address] Dr. Jerry Samuel Erythrocyte distribution width (RBC) [Ratio] 12.6 % Normal 11.0-15.0 [facility] Comment on above: Performed By: #### C BC #### [facility] [address] [place] [address] Dr. Jerry Samuel Hematocrit (Bld) [Volume fraction] 34.0 % Critically low 36.0-48.0 [facility] Comment on above: Performed By: #### C BC #### [facility] [address] [place] [address] Dr. Jerry Samuel Hemoglobin (Bld) [Mass/Vol] 11.6 g/dL Critically low 12.0-16.0 [facility] Comment on above: Performed By: #### C BC #### [facility] [address] [place] [address] Dr. Jerry Samuel IG # 0.03 10e3/ul Normal 0.00-0.03 [facility] Comment on above: Performed By: #### C BC #### [facility] [address] [place] [address] Dr. Jerry Samuel IG % 0.4 % Normal 0.0-0.5 [facility] Comment on above: Performed By: #### C BC #### [facility] [address] [place] [address] Dr. Jerry Samuel LYMPH # 1.1 103/ul Critically low 1.2-3.8 [facility] Comment on above: Performed By: #### C BC #### [facility] [address] [place] [address] Dr. Jerry Samuel Lymphocytes/100 WBC (Bld) 16.5 % Critically low 20.5-60.0 [facility] Comment on above: Performed By: #### C BC #### [facility] [address] [place] [address] Dr. Jerry Samuel MANUAL DIFF REQ NO Normal [facility] Comment on above: Performed By: #### C BC #### [facility] [address] [place] [address] Dr. Jerry Samuel MCH (RBC) [Entitic mass] 29.1 pg Normal 26.7-34.0 [facility] Comment on above: Performed By: #### C BC #### [facility] [address] [place] [address] Dr. Jerry Samuel MCHC (RBC) [Mass/Vol] 34.1 g/dL Normal 29.9-35.2 [facility] Comment on above: Performed By: #### C BC #### [facility] [address] [place] [address] Dr. Jerry Samuel MCV (RBC) [Entitic vol] 85.2 fL Normal 81.0-99.0 [facility] Comment on above: Performed By: #### C BC #### [facility] [address] [place] [address] Dr. Jerry Samuel MONO # 0.4 103/ul Normal 0.3-0.8 [facility] Comment on above: Performed By: #### C BC #### [facility] [address] [place] [address] Dr. Jerry Samuel Monocytes/100 WBC (Bld) 6.0 % Normal 1.7-12.0 [facility] Comment on above: Performed By: #### C BC #### [facility] [address] [place] [address] Dr. Jerry Samuel NEUT # 5.1 103/ul Normal 1.4-6.5 [facility] Comment on above: Performed By: #### C BC #### [facility] [address] [place] [address] Dr. Jerry Samuel Neutrophils/100 WBC (Bld) 76.6 % Critically high 43.0-75.0 [facility] Comment on above: Performed By: #### C BC #### [facility] [address] [place] [address] Dr. Jerry Samuel Platelet mean volume (Bld) [Entitic vol] 10.5 fL Normal 9.5-13.5 [facility] Comment on above: Performed By: #### C BC #### [facility] [address] [place] [address] Dr. Jerry Samuel PLT 207 103/ul Normal 150-450 [facility] Comment on above: Performed By: #### C BC #### [facility] [address] [place] [address] Dr. Jerry Samuel RBC 3.99 106/ul Critically low 4.20-5.40 [facility] Comment on above: Performed By: #### C BC #### [facility] [address] [place] [address] Dr. Jerry Samuel WBC 6.7 103/ul Normal 4.0-11.0 [facility] Comment on above: Performed By: #### C BC #### [facility] [address] [place] [address] Dr. Jerry Samuel ER URINE PROFILEon 3 Bilirubin Ql (U) Negative Normal NEGATIVE [facility] Comment on above: Performed By: #### E RUR #### [facility] [address] [place] [address] Dr. Jerry Samuel Clarity (U) CLEAR Normal CLEAR [facility] Comment on above: Performed By: #### E RUR #### [facility] [address] [place] [address] Dr. Jerry Samuel Color (U) LT. YELLOW Normal YELLOW [facility] Comment on above: Performed By: #### E RUR #### [facility] [address] [place] [address] Dr. Jerry Samuel ERUAHD A micrscopic examina tion will be performed if indicated. Normal [facility] Comment on above: Performed By: #### E RUR #### [facility] [address] [place] [address] Dr. Jerry Samuel Glucose Ql (U) Negative Normal NEGATIVE [facility] Comment on above: Performed By: #### E RUR #### [facility] [address] [address] [address] Jerry Samuel Hemoglobin Ql (U) Negative Normal NEGATIVE [facility] Comment on above: Performed By: #### E RUR #### [facility] [address] [place] [address] Dr. Jerry Samuel Ketones Ql (U) Negative Normal NEGATIVE [facility] Comment on above: Performed By: #### E RUR #### [facility] [address] [place] [address] Dr. Jerry Samuel LEUKOCYTES Negative Normal NEGATIVE [facility] Comment on above: Performed By: #### E RUR #### [facility] [address] [place] [address] Dr. Jerry Samuel Nitrite Ql (U) Negative Normal NEGATIVE [facility] Comment on above: Performed By: #### E RUR #### [facility] [address] [place] [address] Dr. Jerry Samuel pH (U) 6.5 [pH] Normal 5-9 [facility] Comment on above: Performed By: #### E RUR #### [facility] [address] [place] [address] Dr. Jerry Samuel SPEC GRAVITY <=1.005 Abnormal 1.005-<=1.025 [facility] Comment on above: Performed By: #### E RUR #### [facility] [address] [place] [address] Dr. Jerry Samuel UA PROTEIN Negative Normal NEGATIVE/ TRACE [facility] Comment on above: Performed By: #### E RUR #### [facility] [address] [place] [address] Dr. Jerry Samuel UR MICRO IND NOT INDICATED Normal [facility] Comment on above: Performed By: #### E RUR #### [facility] [address] [place] [address] Dr. Jerry Smauel Urobilinogen Qn (U) 0.2 {Charlette'U}/dL Normal 0.2 - 1. 0 [facility] Comment on above: Performed By: #### E RUR #### [facility] [address] [place] [address] Dr. Jerry Samuel PROF 14(COMP METB)on 023 Albumin [Mass/Vol] 3.4 g/dL Normal 3.4-5.0 [facility] Comment on above: Performed By: #### R PRQ #### [facility] [address] [place] [address] Dr. Jerry Samuel Albumin/Globulin [Mass ratio] 1.0 {ratio} Normal [facility] Comment on above: Performed By: #### R PRQ #### [facility] [address] [address] [address] Jerry Samuel ALP [Catalytic activity/Vol] 33 U/L Critically low 46-116 [facility] Comment on above: Performed By: #### R PRQ #### [facility] [address] [place] [address] Dr. Jerry Samuel ALT [Catalytic activity/Vol] 16 U/L Normal 14-59 [facility] Comment on above: Performed By: #### R PRQ #### [facility] [address] [address] [address] Jerry Samuel Anion gap [Moles/Vol] 8.5 mmol/L Normal [facility] Comment on above: Performed By: #### R PRQ #### [facility] [address] [place] [address] Dr. Jerry Samuel AST [Catalytic activity/Vol] 12 U/L Critically low 15-37 [facility] Comment on above: Performed By: #### R PRQ #### [facility] [address] [place] [address] Dr. Jerry Samuel Bilirubin [Mass/Vol] 0.3 mg/dL Normal 0.2-1.0 [facility] Comment on above: Performed By: #### R PRQ #### [facility] [address] [place] [address] Dr. Jerry Samuel Calcium [Mass/Vol] 9.2 mg/dL Normal 8.5-10.1 [facility] Comment on above: Performed By: #### R PRQ #### [facility] [address] [place] [address] Dr. Jerry Samuel Chloride [Moles/Vol] 105 mmol/L Normal 98-107 [facility] Comment on above: Performed By: #### R PRQ #### [facility] [address] [address] [address] Jerry Samuel CO2 [Moles/Vol] 25.0 mmol/L Normal 21.0-32.0 [facility] Comment on above: Performed By: #### R PRQ #### [facility] [address] [place] [address] Dr. Jerry Samuel Creatinine [Mass/Vol] 0.40 mg/dL Critically low 0.55-1.02 [facility] Comment on above: Performed By: #### R PRQ #### [facility] [address] [place] [address] Dr. Jerry Samuel EGFR-AF LIBYAN >60 Normal >=60 [facility] Comment on above: Performed By: #### R PRQ #### [facility] [address] [address] [address] Jerry Samuel EGFR-NON AF LIBYAN >60 Normal >=60 [facility] Comment on above: Performed By: #### R PRQ #### [facility] [address] [place] [address] Dr. Jerry Samuel Globulin (S) [Mass/Vol] 3.5 g/dL Normal [facility] Comment on above: Performed By: #### R PRQ #### [facility] [address] [place] [address] Dr. Jerry Samuel Glucose [Mass/Vol] 94 mg/dL Normal 74-106 [facility] Comment on above: Performed By: #### R PRQ #### [facility] [address] [place] [address] Dr. Jerry Samuel Potassium [Moles/Vol] 3.5 mmol/L Normal 3.5-5.1 [facility] Comment on above: Performed By: #### R PRQ #### [facility] [address] [place] [address] Dr. Jerry Samuel Protein [Mass/Vol] 6.9 g/dL Normal 6.4-8.2 [facility] Comment on above: Performed By: #### R PRQ #### [facility] [address] [place] [address] Dr. Jerry Samuel Sodium [Moles/Vol] 135 mmol/L Critically low 136-145 [facility] Comment on above: Performed By: #### R PRQ #### [facility] [address] [place] [address] Dr. Jerry Samuel Urea nitrogen [Mass/Vol] 6.0 mg/dL Critically low 7.0-18.0 [facility] Comment on above: Performed By: #### R PRQ #### [facility] [address] [place] [address] Dr. Jerry Samuel Urea nitrogen/Creatinine [Mass ratio] 15.0 mg/mg Normal [facility] Comment on above: Performed By: #### R PRQ #### [facility] [address] [place] [address] Dr. Jerry Samuel DOROTEO BOX TEST PT SEND OUTo n 05-02-2022 SENT TO REF LAB 05/02/2022 Normal [facility] Comment on above: Performed By: #### N BOX #### [facility] [address] [place] [address] Dr. Jerry Samuel HEP B SURFACE ANTIGEN SCREEN on 04-05-2022 HBsAg Screen Negative Normal Negative [facility] Comment on above: Performed By: #### N BOX #### [facility] [address] [place] [address] Dr. Jerry Samuel HEPATITIS C VIRUS AB W/ REFL EX QUANTon 04-05-2022 HCV AB <0.1 Normal 0.0-0.9 [facility] Comment on above: Performed By: #### H CVPCRR #### [facility] [address] [place] [address] Dr. Jerry Samuel Interpretation: Comment Normal [facility] Comment on above: Result Comment: Nega tive Not infected with HCV, unless recent infection is suspected or other evidence exists to indicate HCV infection. Performed By: #### H CVPCRR #### [facility] [address] [place] [address] Dr. Jerry Samuel HIV 1 AND 2 WITH REFLEXon HIV Screen 4th Generation wRfx Non-Reactive Normal Non Reactive [facility] Comment on above: Result Comment: HIV Negative HIV-1/HIV-2 antibodies and HIV-1 p24 antigen were NOT detected. There is no laboratory evidence of HIV infection. Performed By: #### R PRQ #### [facility] [address] [place] [address] Dr. Jerry Samuel RPR QUANTon 04-05-2022 Rapid Plasma Reagin, Quant Non-Reactive Normal NonRea<1:1 [facility] Comment on above: Result Comment: Nathaly wilkes Note: This test does not meet current guidelines for screening and diagnosis of syphilis. This test is intended for following treatment response in patients being treated for syphilis infection. To screen for syphilis infection, a reflex cascade that includes both RPR and a treponema-specific assay should be utilized, such as Treponema pallidum (Syphilis) Screening [place] (339857) or Rapid Plasma Reagin (RPR) Test With Reflex to Quantitative RPR and Confirmatory Treponema pallidum Antibodies (160768). Performed By: #### R PRQ #### [facility] [address] [place] [address] Dr. Jerry Samuel RUBELLA AB IGGon 04-05-2022 Rubella Antibodies, IgG 1.97 index Normal Immune >0.99 [facility] Comment on above: Result Comment: Non- immune <0.90 Equivocal 0.90 - 0.99 Immune >0.99 Performed By: #### R UBIGG #### [facility] [address] [place] [address] Dr. Jerry Samuel CBC AUTO DIFFon 04-04-2022 BASO # 0.0 103/ul Normal 0.0-0.1 [facility] Comment on above: Performed By: #### R PRQ #### [facility] [address] [place] [address] Dr. Jerry Samuel Basophils/100 WBC (Bld) 0.3 % Normal 0.2-2.0 [facility] Comment on above: Performed By: #### R PRQ #### [facility] [address] [place] [address] Dr. Jerry Samuel EO # 0.1 103/ul Normal 0.0-0.7 [facility] Comment on above: Performed By: #### R PRQ #### [facility] [address] [place] [address] Dr. Jerry Samuel Eosinophils/100 WBC (Bld) 0.7 % Critically low 0.9-7.0 [facility] Comment on above: Performed By: #### R PRQ #### [facility] [address] [place] [address] Dr. Jerry Samuel Erythrocyte distribution width (RBC) [Ratio] 12.3 % Normal 11.0-15.0 [facility] Comment on above: Performed By: #### R PRQ #### [facility] [address] [place] [address] Dr. Jerry Samuel Hematocrit (Bld) [Volume fraction] 35.1 % Critically low 36.0-48.0 [facility] Comment on above: Performed By: #### R PRQ #### [facility] [address] [place] [address] Dr. Jerry Samuel Hemoglobin (Bld) [Mass/Vol] 11.8 g/dL Critically low 12.0-16.0 [facility] Comment on above: Performed By: #### R PRQ #### [facility] [address] [place] [address] Dr. Jerry Samuel IG # 0.02 10e3/ul Normal 0.00-0.03 [facility] Comment on above: Performed By: #### R PRQ #### [facility] [address] [place] [address] Dr. Jerry Samuel IG % 0.3 % Normal 0.0-0.5 [facility] Comment on above: Performed By: #### R PRQ #### [facility] [address] [place] [address] Dr. Jerry Samuel LYMPH # 2.0 103/ul Normal 1.2-3.8 [facility] Comment on above: Performed By: #### R PRQ #### [facility] [address] [place] [address] Dr. Jerry Samuel Lymphocytes/100 WBC (Bld) 26.7 % Normal 20.5-60.0 [facility] Comment on above: Performed By: #### R PRQ #### [facility] [address] [place] [address] Dr. Jerry Samuel MANUAL DIFF REQ NO Normal [facility] Comment on above: Performed By: #### R PRQ #### [facility] [address] [address] [address] Jerry Samuel MCH (RBC) [Entitic mass] 29.0 pg Normal 26.7-34.0 [facility] Comment on above: Performed By: #### R PRQ #### [facility] [address] [place] [address] Dr. Jerry Samuel MCHC (RBC) [Mass/Vol] 33.6 g/dL Normal 29.9-35.2 [facility] Comment on above: Performed By: #### R PRQ #### [facility] [address] [place] [address] Dr. Jerry Samuel MCV (RBC) [Entitic vol] 86.2 fL Normal 81.0-99.0 [facility] Comment on above: Performed By: #### R PRQ #### [facility] [address] [place] [address] Dr. Jerry Samuel MONO # 0.5 103/ul Normal 0.3-0.8 [facility] Comment on above: Performed By: #### R PRQ #### [facility] [address] [place] [address] Dr. Jerry Samuel Monocytes/100 WBC (Bld) 6.7 % Normal 1.7-12.0 [facility] Comment on above: Performed By: #### R PRQ #### [facility] [address] [place] [address] Dr. Jerry Samuel NEUT # 4.9 103/ul Normal 1.4-6.5 [facility] Comment on above: Performed By: #### R PRQ #### [facility] [address] [place] [address] Dr. Jerry Samuel Neutrophils/100 WBC (Bld) 65.3 % Normal 43.0-75.0 [facility] Comment on above: Performed By: #### R PRQ #### [facility] [address] [place] [address] Dr. Jerry Samuel Platelet mean volume (Bld) [Entitic vol] 10.0 fL Normal 9.5-13.5 [facility] Comment on above: Performed By: #### R PRQ #### [facility] [address] [address] [address] Jerry Samuel PLT 218 103/ul Normal 150-450 [facility] Comment on above: Performed By: #### R PRQ #### [facility] [address] [address] [address] Jerry Samuel RBC 4.07 106/ul Critically low 4.20-5.[address] [facility] Comment on above: Performed By: #### R PRQ #### [facility] [address] [address] [address] Jerry Samuel WBC 7.5 103/ul Normal 4.0-11.0 [facility] Comment on above: Performed By: #### R PRQ #### [facility] [address] [place] [address] Dr. Jerry Samuel CULTURE URINEon 04-04-2022 CULTURE URINE Culture Observations : NO GROWTH. Normal [facility] Comment on above: Performed By: #### N BOX #### [facility] [address] [address] [address] Jerry Samuel GLYCOHEMOGLOBIN A1Con 2021 ADA RECOMMENDATION SEE BELOW Normal [facility] Comment on above: Result Comment: ADA RECOMMENDED LIMIT 4.0 - 6.0 ADA THERAPEUTIC TARGET < 7.0 ACTION SUGGESTED > 7.0 Performed By: #### N BOX #### [facility] [address] [address] [address] Jerry Samuel Glucose [Mass/Vol] 97 mg/dL Normal [facility] Comment on above: Performed By: #### N BOX #### [facility] [address] [address] [address] Jerry Samuel HbA1c (Bld) [Mass fraction] 5.0 % Normal 4.5-6.2 [facility] Comment on above: Performed By: #### N BOX #### [facility] [address] [address] [address] Jerry Samuel TYPE AND SCREENon 04-04-2022 TYPE AND SCREEN Negative Normal [facility] Comment on above: Performed By: #### N BOX #### [facility] [address] [address] [address] Jerry Samuel US PREG TVon 04-04-2022 [...] EDITH WILLIS Date: 2022-04-04 16:13 Normal [facility] PREG QUANT HCGon 03-07-2022 HCG QUANT 2201 mIU/mL Normal [facility] Comment on above: Performed By: #### R PRQ #### [facility] [address] [place] [address] Dr. Jerry Samuel HCG RANGE SEE BELOW Normal [facility] Comment on above: Result Comment: 5-50 0.2-1 WEEK 50-500 1-2 WEEKS 100-5,000 2-3 WEEKS 500-10,000 3-4 WEEKS 1,000-50,000 4-5 WEEKS 10,000-100,000 5-6 WEEKS 15,000-200,000 6-8 WEEKS 10,000-100,000 2-3 MONTHS Performed By: #### R PRQ #### [facility] [address] [place] [address] Dr. Jerry Samuel PREG QUANT HCGon 03-05-2022 HCG QUANT 820 mIU/mL Normal [facility] Comment on above: Performed By: #### R PRQ #### [facility] [address] [place] [address] Dr. Jerry Samuel HCG RANGE SEE BELOW Normal [facility] Comment on above: Result Comment: 5-50 0.2-1 WEEK 50-500 1-2 WEEKS 100-5,000 2-3 WEEKS 500-10,000 3-4 WEEKS 1,000-50,000 4-5 WEEKS 10,000-100,000 5-6 WEEKS 15,000-200,000 6-8 WEEKS 10,000-100,000 2-3 MONTHS Performed By: #### R PRQ #### [facility] [address] [place] [address] Dr. Jerry Samuel PAP ACOG PANEL 2: 21 to 29on 02-21-2022 . . Normal [facility] Comment on above: Performed By: #### R PRQ #### [facility] [address] [place] [address] Dr. Jerry Samuel Age Gdln ACOG Testing - [facility] Comment on above: Performed By: #### R PRQ #### [facility] [address] [place] [address] Dr. Jerry Samuel DIAGNOSIS: Comment [facility] Comment on above: Result Comment: NEGA TIVE FOR INTRAEPITHELIAL LESION OR MALIGNANCY. SPECIMEN REPROCESSED FOR INTERPRETATION. Performed By: #### R PRQ #### [facility] [address] [place] [address] Dr. Jerry Samuel Methodology: Comment [facility] Comment on above: Result Comment: This liquid based ThinPrep(R) pap test was screened with the use of an image guided system. Performed By: #### R PRQ #### [facility] [address] [place] [address] Dr. Jerry Samuel Note: Comment [facility] Comment on above: Result Comment: The Pap smear is a screening test designed to aid in the detection of premalignant and malignant conditions of the uterine cervix. It is not a diagnostic procedure and should not be used as the sole means of detecting cervical cancer. Both false-positive and false-negative reports do occur. . Performed By: #### R PRQ #### [facility] [address] [place] [address] Dr. Jerry Samuel Performed by: Comment [facility] Comment on above: Result Comment: Anders Roman, [employer] (ASCP) Performed By: #### R PRQ #### [facility] [address] [place] [address] Dr. Jerry Samuel Reflex Criteria: Comment Normal [facility] Comment on above: Result Comment: The HPV DNA reflex criteria were not met with this specimen result therefore, no HPV testing was performed. . Performed By: #### R PRQ #### [facility] [address] [place] [address] Dr. Jerry Samuel Specimen adequacy: Comment Normal [facility] Comment on above: Result Comment: Sati sfactory for evaluation. Endocervical and/or squamous metaplastic cells (endocervical component) are present. Performed By: #### R PRQ #### [facility] [address] [place] [address] Dr. Jerry Samuel US PELVIS AND TRANSVAGon [...] EDITH WILLIS Date: 2022-02-13 14:34 Normal [facility] CBC AUTO DIFFon 02-12-2022 BASO # 0.0 103/ul Normal 0.0-0.1 [facility] Comment on above: Performed By: #### C BC #### [facility] [address] [place] [address] Dr. Jerry Samuel Basophils/100 WBC (Bld) 0.6 % Normal 0.2-2.0 [facility] Comment on above: Performed By: #### C BC #### [facility] [address] [place] [address] Dr. Jerry Samuel EO # 0.1 103/ul Normal 0.0-0.7 [facility] Comment on above: Performed By: #### C BC #### [facility] [address] [place] [address] Dr. Jerry Samuel Eosinophils/100 WBC (Bld) 1.2 % Normal 0.9-7.0 [facility] Comment on above: Performed By: #### C BC #### [facility] [address] [place] [address] Dr. Jerry Samuel Erythrocyte distribution width (RBC) [Ratio] 11.9 % Normal 11.0-15.0 [facility] Comment on above: Performed By: #### C BC #### [facility] [address] [place] [address] Dr. Jerry Samuel Hematocrit (Bld) [Volume fraction] 39.1 % Normal 36.0-48.0 [facility] Comment on above: Performed By: #### C BC #### [facility] [address] [place] [address] Dr. Jerry Samuel Hemoglobin (Bld) [Mass/Vol] 13.0 g/dL Normal 12.0-16.0 [facility] Comment on above: Performed By: #### C BC #### [facility] [address] [place] [address] Dr. Jerry Samuel IG # 0.01 10e3/ul Normal 0.00-0.03 [facility] Comment on above: Performed By: #### C BC #### [facility] [address] [place] [address] Dr. Jerry Samuel IG % 0.2 % Normal 0.0-0.5 [facility] Comment on above: Performed By: #### C BC #### [facility] [address] [place] [address] Dr. Jerry Samuel LYMPH # 2.4 103/ul Normal 1.2-3.8 [facility] Comment on above: Performed By: #### C BC #### [facility] [address] [place] [address] Dr. Jerry Samuel Lymphocytes/100 WBC (Bld) 37.7 % Normal 20.5-60.0 [facility] Comment on above: Performed By: #### C BC #### [facility] [address] [place] [address] Dr. Jerry Samuel MANUAL DIFF REQ NO Normal [facility] Comment on above: Performed By: #### C BC #### [facility] [address] [place] [address] Dr. Jerry Samuel MCH (RBC) [Entitic mass] 29.2 pg Normal 26.7-34.0 [facility] Comment on above: Performed By: #### C BC #### [facility] [address] [place] [address] Dr. Jerry Samuel MCHC (RBC) [Mass/Vol] 33.2 g/dL Normal 29.9-35.2 [facility] Comment on above: Performed By: #### C BC #### [facility] [address] [place] [address] Dr. Jerry Samuel MCV (RBC) [Entitic vol] 87.9 fL Normal 81.0-99.0 [facility] Comment on above: Performed By: #### C BC #### [facility] [address] [place] [address] Dr. Jerry Samuel MONO # 0.4 103/ul Normal 0.3-0.8 [facility] Comment on above: Performed By: #### C BC #### [facility] [address] [place] [address] Dr. Jerry Samuel Monocytes/100 WBC (Bld) 5.9 % Normal 1.7-12.0 [facility] Comment on above: Performed By: #### C BC #### [facility] [address] [place] [address] Dr. Jerry Samuel NEUT # 3.5 103/ul Normal 1.4-6.5 [facility] Comment on above: Performed By: #### C BC #### [facility] [address] [place] [address] Dr. Jerry Samuel Neutrophils/100 WBC (Bld) 54.4 % Normal 43.0-75.0 [facility] Comment on above: Performed By: #### C BC #### [facility] [address] [place] [address] Dr. Jerry Samuel Platelet mean volume (Bld) [Entitic vol] 9.9 fL Normal 9.5-13.5 [facility] Comment on above: Performed By: #### C BC #### [facility] [address] [place] [address] Dr. Jerry Samuel PLT 229 103/ul Normal 150-450 [facility] Comment on above: Performed By: #### C BC #### [facility] [address] [place] [address] Dr. Jerry Samuel RBC 4.45 106/ul Normal 4.20-5.40 [facility] Comment on above: Performed By: #### C BC #### [facility] [address] [place] [address] Dr. Jerry Samuel WBC 6.5 103/ul Normal 4.0-11.0 [facility] Comment on above: Performed By: #### C BC #### [facility] [address] [place] [address] Dr. Jerry Samuel FREE T4on 02-12-2022 Free T4 [Mass/Vol] 0.99 ng/dL Normal 0.76-1.46 [facility] Comment on above: Performed By: #### R PRQ #### [facility] [address] [place] [address] Dr. Jerry Samuel GLYCOHEMOGLOBIN A1Con 2021 ADA RECOMMENDATION SEE BELOW Normal [facility] Comment on above: Result Comment: ADA RECOMMENDED LIMIT 4.0 - 6.0 ADA THERAPEUTIC TARGET < 7.0 ACTION SUGGESTED > 7.0 Performed By: #### R PRQ #### [facility] [address] [place] [address] Dr. Jerry Samuel Glucose [Mass/Vol] 103 mg/dL Normal [facility] Comment on above: Performed By: #### R PRQ #### [facility] [address] [place] [address] Dr. Jerry Samuel HbA1c (Bld) [Mass fraction] 5.2 % Normal 4.5-6.2 [facility] Comment on above: Performed By: #### R PRQ #### [facility] [address] [place] [address] Dr. Jerry Samuel PROTIMEon 02-12-2022 INR Coag (PPP) [Relative time] 1.00 {INR} Normal [facility] Comment on above: Performed By: #### N BOX #### [facility] [address] [place] [address] Dr. Jerry Samuel INR GUIDELINES SEE BELOW Normal [facility] Comment on above: Result Comment: SACHA RED INR: 2.0 - 3.0 CONDITIONS NOT LISTED BELOW 2.5 - 3.5 FOR PROSTHETIC HEART VALVE REPLACEMENT 2.5 - 3.5 RECURRENT THROMBOSIS Performed By: #### N BOX #### [facility] [address] [place] [address] Dr. Jerry Samuel PT Coag (PPP) [Time] 10.8 s Normal 9.0-11.6 [facility] Comment on above: Performed By: #### N BOX #### [facility] [address] [place] [address] Dr. Jerry Samuel PTTon 02-12-2022 aPTT Coag (Bld) [Time] 27.8 s Normal 22.3-36.2 [facility] Comment on above: Performed By: #### N BOX #### [facility] [address] [place] [address] Dr. Jerry Samuel TSHon 02-12-2022 TSH 1.741 uIU/mL Normal 0.358-3.740 [facility] Comment on above: Performed By: #### T SH #### [facility] [address] [place] [address] Dr. Jerry Samuel Outside Recordson 11-20-2021 Outside Records [id number] TIFF Normal [facility] Outside [facility] 11-16-2021 Outside Records [id number]#1.00OT GTIFF Normal [facility] HCG,Urineon 02-22-2021 Beta HCG ( test) Ql (U) Negative Normal [facility] Comment on above: Result Comment: PERF ORMED BY: [place] [address] PATHOLOGIST [employer] PRIYA WHITE M.D. Performed By: #### U HCG #### [place] [id number] [facility] 02-22-2021 L ---- Specimen: [id number] Received: 02/23/21 Status: DRE [place] Num: [id number] Spec Type: Surgical Subm Dr: Edith Cagle Jr, Tissues: A Duodenum - Biopsy (DUODENUM BX) B Stomach - Biopsy/Polyp (ANTRUM BX) C Colon Biopsy (RANDOM COLON) Procedures: HE Stain/6, Gross/Micro L4/3 Patient Age/Sex Location Account Attending Physician Will Shay Jose Luis [id number] Edith Cagle Jr, DO SPEC NUM: [id number] RECD: 02/23/21 STATUS: DRE ELIZABETH NUM: [id number] CASIMIRO: 02/22/21- DR: Edith Cagle Jr, ENTERED: 02/23/[address]: ANITA TYPE: Surgical DEPT: S ENTERED BY: [id number] RECV BY: [id number] ORDERED: HE Stain/6, Gross/Micro L4/3 ORDERED: HE [...] in one cassette labeled B1. (SM/YJ) Specimen: [id number] Received: 02/23/21 Status: DRE Elizabeth Num: [id number] Spec Type: Surgical Subm Dr: Edith Cagle Jr, Tissues: A Duodenum - Biopsy (DUODENUM BX) B Stomach - Biopsy/Polyp (ANTRUM BX) C Colon Biopsy (RANDOM COLON) Procedures: HE Stain/6, Gross/Micro L4/3 Patient: Will Shay [id number] (Continued) Specimen: [id number] Received: 02/23/21 (Continued) Gross Description (Continued) Signed (signature on file) Gail Crockett MD 02/26/21 1601 Specimen: [id number] Received: 02/23/21 Status: DRE Elizabeth Num: [id number] Spec Type: Surgical Subm Dr: Edith Cagle Jr, DO Tissues: A Duodenum - Biopsy (DUODENUM BX) B Stomach - Biopsy/Polyp (ANTRUM BX) C Colon Biopsy (RANDOM COLON) Procedures: HE Stain/6, Gross/Micro L4/3 Patient: Will Shay [id number] (Continued) Specimen: [id number] Received: 02/23/21 (Continued) Gross Description (Continued) C. Received in formalin labeled with the patient's name, number and random colon rule out microscopic colitis are 2 marsh tissue fragments, 0.3 cm and 0.9 cm. Entirely submitted in one cassette labeled C1. (/REINA) Microscopic Description A. Two glass slides with [...] determined by the Laboratory of [facility]. Immunohistochemistry assays have not been validated on decalcified tissue. Results should be interpreted with caution given the possibility of false negative results on decalcified specimens. They have not been cleared by the [place] Food and Drug Administration. The FDA has determined that such clearance or approval is not necessary. CPT Codes 75419?3, 35297 (more content not included)... Normal [facility] SARS-CoV-2 (COVID-19) RNA ELINOR+probe Ql (Unsp spec) Negative Normal Negative [facility] Comment on above: Order Comment: Healt hcare Worker?: N Result Comment: Testing for SARS-CoV-2 by RT-PCR This test was developed and its performance characteristics determined by [employer] and validated at the [facility]. This test has not been FDA [...] is terminated or revoked sooner. PERFORMED BY: [place] [address] PATHOLOGIST [employer] PRIYA WHITE M.D. Performed By: #### C OVID 19 [facility] #### [address] Vital Signs Date Time Vital Sign Value Performing Clinician Facility 03-26-2023 13:45-0500 Body height 164.47 cm Ben Rose Other [facility] Other 03-26-2023 13:45-0500 Body mass index (BMI) [Ratio] 29.6 kg/m2 Ben Rose Other [facility] Other 03-26-2023 13:45-0500 Body weight 80.06 kg Ben Rose Other [facility] Other 03-26-2023 13:45-0500 Diastolic blood pressure 74 mm[Hg] Ben Moralesy Other [facility] Other 03-26-2023 13:45-0500 Systolic blood pressure 120 mm[Hg] Ben Dirigobertoy Other [facility] Other 06-14-2022 17:07-0500 Body weight 79.[address] EDDIE VALIENTE . [facility] Comment on above: Performed By: #### RPRQ #### [facility] [address] [place] [address] Dr. Jerry Samuel 03-08-2022 11:15-0500 Body height 164.47 cm Ben Rose Other [facility] Other 03-08-2022 11:15-0500 Body mass index (BMI) [Ratio] 29.01 kg/m2 Ben Rose Other [facility] Other 03-08-2022 11:15-0500 Body weight 78.47 kg Ben Rose Other [facility] Other 03-08-2022 11:15-0500 Diastolic blood pressure 73 mm[Hg] Ben Rose Other [facility] Other 03-08-2022 11:15-0500 Systolic blood pressure 113 mm[Hg] Ben Rose Other [facility] Other Encounters Encounter Date Encounter Type Care Provider Facility Start: 12-17-2023 End: 12-17-2023 ambulatory NORA [facility] Not Available Start: 12-12-2023 End: 12-12-2023 ambulatory EDDIE VALIENTE Not Available Start: 03-27-2023 End: 03-27-2023 ambulatory GENTRY KIM Not Available Start: 03-26-2023 End: 03-26-2023 ambulatory Ben Rose Other [facility] Other Start: 03-26-2023 Patient encounter procedure [facility] Start: 03-05-2023 End: 03-05-2023 ambulatory EDDIE VALIENTE Not Available Start: 01-24-2023 End: 01-24-2023 ambulatory Ben Rose Other [facility] Other Start: 01-24-2023 Telephone encounter Ben FORD [...] 03-08-2022 End: 03-08-2022 ambulatory Ben Rose Other [facility] Other Start: 03-08-2022 Patient encounter procedure Ben [...] 11-06-2021 End: 11-06-2021 ambulatory [place] A Mikael [employer]ATE[employer]C Facility:[facility] Start: 11-05-2021 End: 11-06-2021 ambulatory [place] A Mikael [employer] MARKET[employer]OCIATE-C Facility:[facility] Immunizations Immunization Date Immunization Notes Care Provider Fa cility 11-08-2014 human papilloma viru s vaccine, quadrivalent Ben Rose Other [facility] Other Payers Date Payer Category Payer Unknown [id number] 2021 Unknown [id number] 1996 Unknown [id number] 2.16.84 0.1.657238.3.579.2.718 1996 Unknown [id number] 2.16.8 40.1.977513.3.579.2.718 1996 Unknown [id number] 2.16.84 0.1.091500.3.579.2.593 1996 Unknown [id number] 2.16.84 0.1.986827.3.579.2.593 1996 Unknown [id number] 2.16.84 0.1.694178.3.579.2.593 1996 Unknown [id number] 2.16.84 0.1.950464.3.579.2.593 1996 Unknown [id number] 2.16.84 0.1.944772.3.579.2.593 1996 Unknown [id number] ..84 0.1.156840.3.579.2.593 1996 Unknown [id number] .16.84 0.1.738071.3.579.2.593 1996 Unknown [id number] 2.16.84 0.1.091809.3.579.2.593 1996 Unknown [id number] .16.84 0.1.419277.3.579.2.593 1996 Unknown [id number] .16.84 0.1.694035.3.579.2.593 1996 Unknown [id number] .16.84 0.1.033575.3.579.2.593 1996 Unknown [id number] .16.84 0.1.865482.3.579.2.593 1996 Unknown [id number] 2.16.84 0.1.486166.3.579.2.593 1996 Unknown [id number] .16.84 0.1.630626.3.579.2.593 1996 Unknown [id number] 2.16.84 0.1.574795.3.579.2.593 1996 Unknown [id number] 2.16.84 0.1.908026.3.579.2.9 1996 Unknown [id number] 2.16.84 0.1.575684.3.579.2.1259 1996 Unknown [id number] 2.16.840 .1.136672.3.579.2.1259 1996 Unknown [id number] 2.16.840 .1.066639.3.579.2.1259 1959 Self-pay 1959 Unknown [id number] 2.16. 840.1.034719.19 1959 Unknown [id number] 2. 16.840.1.129483.19 1959 Unknown [id number] 1959 Unknown [id number] Unknown [id number] 2.16.84 0.1.439958.3.579.2.593 Social History Date Type Detail Facility Unknown if ever smoked [facility] Other Sex Assigned At Sex Assigned At Bir th [facility] Other Evaluation note 03-26-2023 Note Date & [...] call office if she has no improvement [facility] Other Evaluation note 01-24-2023 Note Date & Type Note Facility 01-24-2023 Evaluation note Encounter Date Diagnosis Assessment Notes Jan, Epigastric burning sensation (ICD-10 - R10.13) [facility] Other Evaluation note 03-08-2022 Note Date & [...] DAILY CONTINUE LEVSIN NEEDED RTO 1 YR [facility] Other History general Narrative - Reported Note Date & Type Note Facility History general Narrative - Reported Type Medical History scoliosis Medical History hx of mono Surgical History Shonto teeth x4 [facility] Other History general Narrative - Reported Note Date & Type Note Facility History general Narrative - Reported Type Medical History scoliosis Medical History hx of mono Surgical History Shonto teeth x4 Surgical History C section [facility] Other Summary Purpose Family History No Family History Records FoundNo Family History Records FoundNo Family History Records FoundNo Family History Records Found Advance Directives No Advanced Directives Records FoundNo Advanced Directives Records FoundNo Advanced Directives Records FoundNo Advanced Directives Records Found Additional Source Comments INFORMATION SOURCE (unrecogn ized section and content) DATE CREATED AUTHOR 02/27/2021 [facility] DATE CREATED AUTHOR AUTHOR'S ORGANIZ ATION 07/24/2022 [facility] DATE CREATED AUTHOR AUTHOR'S ORGANIZ ATION 08/08/2022 [facility] DATE CREATED AUTHOR AUTHOR'S ORGANIZ ATION 12/19/2023 [facility] EPIC REASON FOR VISIT (unrecogniz ed [...] BE BASED ON THE PRIMARY CLINICAL RECORDS. [employer] [facility]. provides no warranty or guarantee of the accuracy or completeness of information in this document.
[2023-12-22 16:39] LABS: Basophils Percent Auto 0.3 % (0.2-2.0); Eosinophils Absolute Auto 0.1 10^3/uL (0.0-0.7); Eosinophils Percent Auto 0.9 % (0.9-7.0); Hematocrit 39.1 % (36.0-48.0); Hemoglobin 12.8 g/dL (12.0-16.0); Immature Granulocytes Abs Auto 0.02 10^3/uL (0.00-0.03); Immature Granulocytes Pct Auto 0.3 % (0.0-0.5); Lymphocytes Absolute Auto 1.6 10^3/uL (1.2-3.8); Lymphocytes Percent Auto 20.4 % (20.5-60.0); Mean Corpuscular HGB Conc 32.7 g/dL (29.9-35.2); Mean Corpuscular Hemoglobin 27.8 pg (26.7-34.0); Mean Corpuscular Volume 84.8 fL (81.0-99.0); Mean Platelet Volume 10.2 fL (9.5-13.5); Monocytes Absolute Auto 0.6 10^3/uL (0.3-0.8); Monocytes Percent Auto 7.1 % (1.7-12.0); Neutrophils Absolute Auto 5.5 10^3/uL (1.4-6.5); Platelet Count 254 10^3/uL (150-450); Red Blood Count 4.61 10^6/uL (4.20-5.40); White Blood Count 7.7 10^3/uL (4.0-11.0)
[2023-12-22 17:24] LABS: Estimated Average Glucose 97 mg/dL
[2023-12-24 06:09] LABS: HBsAg Screen Negative (Negative); HCV Ab Non Reactive (Non Reactive); HIV Ab/p24 Ag Screen Non Reactive (Non Reactive); Rubella Antibodies, IgG 1.96 index (Immune >0.99)
[2023-12-24 14:10] LABS: Rapid Plasma Reagin, Quant Non Reactive titer (NonRea<1:1)
== END 2023-12-22 16:16 | disposition home or self-care (01) ==
PROVIDERS: Visit Provider Obstetrics & Gynecology
DX: N92.6 Irregular menstruation, unspecified (principal)
CPT/HCPCS: 36415; 83036; 85025; 86592; 86762; 86803; 86850; 86900; 86901; 87086; 87340; 87389

== ENCOUNTER 2024-01-08 12:09 | Outpatient (OUT) | payer BC, SELFPAY ==
--- OUTSIDE RECORDS SUMMARY | 2024-01-08 12:15 | XMS_ITS | CCD ---
Author Organization [facility] CliniSyde Care Team Providers Care Digital Marketing Intern Name Role Phone Ben Rose Unavailable Mikael PRESSFITTER-C, Angeles A Admitting Unavailable Mikael PRESSFITTER-C, Angeles A Attending Unavailable Mikael PRESSFITTER-C, [place] A Primary Care Unavailable Mikael PRESSFITTER-C, [place] A Attending Unavailable Mikael PRESSFITTER-C, [place] A Primary Care Unavailable ROCCO ., [...] Unavailable ROCCO ., DR MORGAN Attending Unavailable [place], DR EDITH [employer] Unavailable ROCCO ., [...] (3 sources) Penicillin G Drug Allergy Unknown Ofuz Other (1 source) busPIRone; Translations: [buspirone hcl] Drug Allergy [facility] Repository (1 source) Coconut extract; Translations: [coconut] Drug Allergy [facility] Repository (1 source) Penicillins; Translations: [penicillins] Propensity to adverse reactions to drug (disorder) [facility] Repository (1 source) Amoxicillin Drug Allergy [facility] Repository (1 source) Penicillin Drug Allergy [facility] Repository Medications Current Medications Medication Drug [...] 07-25-2022 BASO # 0.0 103/ul Normal 0.0-0.1 [facility] Comment on above: Performed By: #### C BC #### [facility] [address] [address] [address] Jerry Samuel Basophils/100 WBC (Bld) 0.3 % Normal 0.2-2.0 [facility] Comment on above: Performed By: #### C BC #### [facility] [address] [address] [address] Jerry Samuel EO # 0.1 103/ul Normal 0.0-0.7 [facility] Comment on above: Performed By: #### C BC #### [facility] [address] [address] [address] Jerry Samuel Eosinophils/100 WBC (Bld) 1.4 % Normal 0.9-7.0 [facility] Comment on above: Performed By: #### C BC #### [facility] [address] [address] [address] Jerry Samuel Erythrocyte distribution width (RBC) [Ratio] 13.2 % Normal 11.0-15.0 [facility] Comment on above: Performed By: #### C BC #### [facility] [address] [address] [address] Jerry Samuel Hematocrit (Bld) [Volume fraction] 33.9 % Critically low 36.0-48.0 [facility] Comment on above: Performed By: #### C BC #### [facility] [address] [address] [address] Jerry Samuel Hemoglobin (Bld) [Mass/Vol] 11.3 g/dL Critically low 12.0-16.0 [facility] Comment on above: Performed By: #### C BC #### [facility] [address] [address] [address] Jerry Samuel IG # 0.04 10e3/ul Critically high 0.00-0.03 [facility] Comment on above: Performed By: #### C BC #### [facility] [address] [place] [address] Dr. Jerry Samuel IG % 0.6 % Critically high 0.0-0.5 [facility] Comment on above: Performed By: #### C BC #### [facility] [address] [place] [address] Dr. Jerry Samuel LYMPH # 1.9 103/ul Normal 1.2-3.8 [facility] Comment on above: Performed By: #### C BC #### [facility] [address] [place] [address] Dr. Jerry Samuel Lymphocytes/100 WBC (Bld) 30.2 % Normal 20.5-60.0 [facility] Comment on above: Performed By: #### C BC #### [facility] [address] [place] [address] Dr. Jerry Samuel MANUAL DIFF REQ NO Normal [facility] Comment on above: Performed By: #### C BC #### [facility] [address] [place] [address] Dr. Jerry Samuel MCH (RBC) [Entitic mass] 29.9 pg Normal 26.7-34.0 [facility] Comment on above: Performed By: #### C BC #### [facility] [address] [place] [address] Dr. Jerry Samuel MCHC (RBC) [Mass/Vol] 33.3 g/dL Normal 29.9-35.2 [facility] Comment on above: Performed By: #### C BC #### [facility] [address] [place] [address] Dr. Jerry Samuel MCV (RBC) [Entitic vol] 89.7 fL Normal 81.0-99.0 [facility] Comment on above: Performed By: #### C BC #### [facility] [address] [place] [address] Dr. Jerry Samuel MONO # 0.5 103/ul Normal 0.3-0.8 [facility] Comment on above: Performed By: #### C BC #### [facility] [address] [address] [address] Jerry Samuel Monocytes/100 WBC (Bld) 7.2 % Normal 1.7-12.0 [facility] Comment on above: Performed By: #### C BC #### [facility] [address] [address] [address] Jerry Samuel NEUT # 3.8 103/ul Normal 1.4-6.5 [facility] Comment on above: Performed By: #### C BC #### [facility] [address] [address] [address] Jerry Samuel Neutrophils/100 WBC (Bld) 60.3 % Normal 43.0-75.0 [facility] Comment on above: Performed By: #### C BC #### [facility] [address] [place] [address] Dr. Jerry Samuel Platelet mean volume (Bld) [Entitic vol] 9.8 fL Normal 9.5-13.5 [facility] Comment on above: Performed By: #### C BC #### [facility] [address] [address] [address] Jerry Samuel PLT 188 103/ul Normal 150-450 [facility] Comment on above: Performed By: #### C BC #### [facility] [address] [place] [address] Dr. Jerry Samuel RBC 3.78 106/ul Critically low 4.20-5.40 [facility] Comment on above: Performed By: #### C BC #### [facility] [address] [place] [address] Dr. Jerry Samuel WBC 6.2 103/ul Normal 4.0-11.0 [facility] Comment on above: Performed By: #### C BC #### [facility] [address] [place] [address] Dr. Jerry Samuel GLUCOSE - 1HRon 07-25-2022 Glucose [Mass/Vol] 100 mg/dL Normal 74-[address] [facility] Comment on above: Performed By: #### N BOX #### [facility] [address] [address] [address] Jerry Samuel US PREG ANATOMY SINGLEon [...] ABRIL SCANLON Date: 2022-07-02 13:45 Normal [facility] AFP MATERNAL FOR SPINA BIFID Aon 06-14-2022 AFP MoM 0.87 Normal [facility] Comment on above: Performed By: #### R PRQ #### [facility] [address] [place] [address] Dr. Jerry Samuel AFP Value 39.6 ng/mL Normal [facility] Comment on above: Performed By: #### R PRQ #### [facility] [address] [place] [address] Dr. Jerry Samuel AFP, Serum for Spina Bifida Report Normal [facility] Comment on above: Performed By: #### R PRQ #### [facility] [address] [place] [address] Dr. Jerry Samuel Comment Comment Normal [facility] Comment on above: Result Comment: Irina Petersen, Ph.D., [facility] Director . References: Available Upon Request. . Multiples Of Median Cutoffs For AFP Elevations Ptarick 2.5 Black 2.8 IDD 2.0 Twins 4.5 Abbreviation Definitions IDD - Insulin Dep Diabetes OSBR - Open Spina Bifida Risk . For further inquiries contact [employer] at [phone]. . This test was developed and its performance characteristics determined by [employer]. It has not been cleared or approved by the Food and Drug Administration. Performed By: #### R PRQ #### [facility] [address] [place] [address] Dr. Jerry Samuel Gest Age Collection Date 18.9 weeks Normal [facility] Comment on above: Performed By: #### R PRQ #### [facility] [address] [place] [address] Dr. Jerry Samuel Gestat, Age Based on Ultrasound Normal [facility] Comment on above: Result Comment: 09.0 on 04/04/2022 Recalculations are not recommended when gestational dating by LMP and ultrasound are within 10 days. Performed By: #### R PRQ #### [facility] [address] [place] [address] Dr. Jerry Samuel Insulin Dep Diabetes No Normal [facility] Comment on above: Performed By: #### R PRQ #### [facility] [address] [place] [address] Dr. Jerry Samuel Interpretation Comment Normal [facility] Comment on above: Result Comment: [...] Customer Services to discuss available options. The [employer] recommends amniocentesis be offered to women age 35 and older. Performed By: #### R PRQ #### [facility] [address] [address] [address] Jerry Samuel [age] Normal [facility] Comment on above: Performed By: #### R PRQ #### [facility] [address] [address] [address] Jerry Samuel Multiple Gestation No Normal [facility] Comment on above: Performed By: #### R PRQ #### [facility] [address] [place] [address] Dr. Jerry Samuel [place] [address] Normal [facility] Comment on above: Performed By: #### R PRQ #### [facility] [address] [place] [address] Dr. Jerry Samuel PDF . Normal [facility] Comment on above: Performed By: #### R PRQ #### [facility] [address] [address] [address] Jerry Samuel [facility] Comment on above: Performed By: #### R PRQ #### [facility] [address] [place] [address] Dr. Jerry Samuel Test Results: Negative Normal [facility] Comment on above: Performed By: #### R PRQ #### [facility] [address] [place] [address] Dr. Jerry Samuel CHLAMYDIA/GONOCOCCUS ELINOR (SW AB/URINE/PAPon 06-07-2022 Chlamydia trachomatis, ELINOR Negative Normal Negative [facility] Comment on above: Performed By: #### R PRQ #### [facility] [address] [place] [address] Dr. Jerry Samuel Neisseria gonorrhoeae, ELINOR Negative Normal Negative [facility] Comment on above: Performed By: #### R PRQ #### [facility] [address] [place] [address] Dr. Jerry Samuel VAGINITIS/VAGINOSIS DNA PROB Nayan 06-06-2022 Margaret species Negative Normal Negative [facility] Comment on above: Performed By: #### V AGINT #### [facility] [address] [place] [address] Dr. Jerry Samuel Gardnerella vaginalis Negative Normal Negative [facility] Comment on above: Performed By: #### V AGINT #### [facility] [address] [place] [address] Dr. Jerry Samuel Trichomonas vaginalis Negative Normal Negative [facility] Comment on above: Performed By: #### V AGINT #### [facility] [address] [place] [address] Dr. Jerry Samuel CBC AUTO DIFFon 05-26-2022 BASO # 0.0 103/ul Normal 0.0-0.1 [facility] Comment on above: Performed By: #### C BC #### [facility] [address] [place] [address] Dr. Jerry Samuel Basophils/100 WBC (Bld) 0.1 % Critically low 0.2-2.0 [facility] Comment on above: Performed By: #### C BC #### [facility] [address] [place] [address] Dr. Jerry Samuel EO # 0.0 103/ul Normal 0.0-0.7 [facility] Comment on above: Performed By: #### C BC #### [facility] [address] [place] [address] Dr. Jerry Samuel Eosinophils/100 WBC (Bld) 0.4 % Critically low 0.9-7.0 [facility] Comment on above: Performed By: #### C BC #### [facility] [address] [place] [address] Dr. Jerry Samuel Erythrocyte distribution width (RBC) [Ratio] 12.6 % Normal 11.0-15.0 [facility] Comment on above: Performed By: #### C BC #### [facility] [address] [place] [address] Dr. Jerry Samuel Hematocrit (Bld) [Volume fraction] 34.0 % Critically low 36.0-48.0 [facility] Comment on above: Performed By: #### C BC #### [facility] [address] [place] [address] Dr. Jerry Samuel Hemoglobin (Bld) [Mass/Vol] 11.6 g/dL Critically low 12.0-16.0 [facility] Comment on above: Performed By: #### C BC #### [facility] [address] [place] [address] Dr. Jerry Samuel IG # 0.03 10e3/ul Normal 0.00-0.03 [facility] Comment on above: Performed By: #### C BC #### [facility] [address] [place] [address] Dr. Jerry Samuel IG % 0.4 % Normal 0.0-0.5 [facility] Comment on above: Performed By: #### C BC #### [facility] [address] [place] [address] Dr. Jerry Samuel LYMPH # 1.1 103/ul Critically low 1.2-3.8 [facility] Comment on above: Performed By: #### C BC #### [facility] [address] [place] [address] Dr. Jerry Samuel Lymphocytes/100 WBC (Bld) 16.5 % Critically low 20.5-60.0 [facility] Comment on above: Performed By: #### C BC #### [facility] [address] [place] [address] Dr. Jerry Samuel MANUAL DIFF REQ NO Normal [facility] Comment on above: Performed By: #### C BC #### [facility] [address] [place] [address] Dr. Jerry Samuel MCH (RBC) [Entitic mass] 29.1 pg Normal 26.7-34.0 [facility] Comment on above: Performed By: #### C BC #### [facility] [address] [place] [address] Dr. Jerry Samuel MCHC (RBC) [Mass/Vol] 34.1 g/dL Normal 29.9-35.2 [facility] Comment on above: Performed By: #### C BC #### [facility] [address] [place] [address] Dr. Jerry Samuel MCV (RBC) [Entitic vol] 85.2 fL Normal 81.0-99.0 [facility] Comment on above: Performed By: #### C BC #### [facility] [address] [place] [address] Dr. Jerry Samuel MONO # 0.4 103/ul Normal 0.3-0.8 [facility] Comment on above: Performed By: #### C BC #### [facility] [address] [place] [address] Dr. Jerry Samuel Monocytes/100 WBC (Bld) 6.0 % Normal 1.7-12.0 [facility] Comment on above: Performed By: #### C BC #### [facility] [address] [place] [address] Dr. Jerry Samuel NEUT # 5.1 103/ul Normal 1.4-6.5 [facility] Comment on above: Performed By: #### C BC #### [facility] [address] [place] [address] Dr. Jerry Samuel Neutrophils/100 WBC (Bld) 76.6 % Critically high 43.0-75.0 [facility] Comment on above: Performed By: #### C BC #### [facility] [address] [place] [address] Dr. Jerry Samuel Platelet mean volume (Bld) [Entitic vol] 10.5 fL Normal 9.5-13.5 [facility] Comment on above: Performed By: #### C BC #### [facility] [address] [place] [address] Dr. Jerry Samuel PLT 207 103/ul Normal 150-450 [facility] Comment on above: Performed By: #### C BC #### [facility] [address] [place] [address] Dr. Jerry Samuel RBC 3.99 106/ul Critically low 4.20-5.40 [facility] Comment on above: Performed By: #### C BC #### [facility] [address] [place] [address] Dr. Jerry Samuel WBC 6.7 103/ul Normal 4.0-11.0 [facility] Comment on above: Performed By: #### C BC #### [facility] [address] [place] [address] Dr. Jerry Samuel ER URINE PROFILEon 3 Bilirubin Ql (U) Negative Normal NEGATIVE [facility] Comment on above: Performed By: #### E RUR #### [facility] [address] [place] [address] Dr. Jerry Samuel Clarity (U) CLEAR Normal CLEAR [facility] Comment on above: Performed By: #### E RUR #### [facility] [address] [place] [address] Dr. Jerry Samuel Color (U) LT. YELLOW Normal YELLOW [facility] Comment on above: Performed By: #### E RUR #### [facility] [address] [place] [address] Dr. Jerry Samuel ERUAHD A micrscopic examina tion will be performed if indicated. Normal [facility] Comment on above: Performed By: #### E RUR #### [facility] [address] [place] [address] Dr. Jerry Samuel Glucose Ql (U) Negative Normal NEGATIVE [facility] Comment on above: Performed By: #### E RUR #### [facility] [address] [address] [address] Jerry Samuel Hemoglobin Ql (U) Negative Normal NEGATIVE [facility] Comment on above: Performed By: #### E RUR #### [facility] [address] [place] [address] Dr. Jerry Samuel Ketones Ql (U) Negative Normal NEGATIVE [facility] Comment on above: Performed By: #### E RUR #### [facility] [address] [place] [address] Dr. Jerry Samuel LEUKOCYTES Negative Normal NEGATIVE [facility] Comment on above: Performed By: #### E RUR #### [facility] [address] [place] [address] Dr. Jerry Samuel Nitrite Ql (U) Negative Normal NEGATIVE [facility] Comment on above: Performed By: #### E RUR #### [facility] [address] [place] [address] Dr. Jerry Samuel pH (U) 6.5 [pH] Normal 5-9 [facility] Comment on above: Performed By: #### E RUR #### [facility] [address] [place] [address] Dr. Jerry Samuel SPEC GRAVITY <=1.005 Abnormal 1.005-<=1.025 [facility] Comment on above: Performed By: #### E RUR #### [facility] [address] [place] [address] Dr. Jerry Samuel UA PROTEIN Negative Normal NEGATIVE/ TRACE [facility] Comment on above: Performed By: #### E RUR #### [facility] [address] [place] [address] Dr. Jerry Samuel UR MICRO IND NOT INDICATED Normal [facility] Comment on above: Performed By: #### E RUR #### [facility] [address] [place] [address] Dr. Jerry Samuel Urobilinogen Qn (U) 0.2 {Charlette'U}/dL Normal 0.2 - 1. 0 [facility] Comment on above: Performed By: #### E RUR #### [facility] [address] [place] [address] Dr. Jerry Samuel PROF 14(COMP METB)on 023 Albumin [Mass/Vol] 3.4 g/dL Normal 3.4-5.[address] [facility] Comment on above: Performed By: #### R PRQ #### [facility] [address] [place] [address] Dr. Jerry Samuel Albumin/Globulin [Mass ratio] 1.0 {ratio} Normal [facility] Comment on above: Performed By: #### R PRQ #### [facility] [address] [address] [address] Jerry Samuel ALP [Catalytic activity/Vol] 33 U/L Critically low 46-116 [facility] Comment on above: Performed By: #### R PRQ #### [facility] [address] [place] [address] Dr. Jerry Samuel ALT [Catalytic activity/Vol] 16 U/L Normal 14-59 [facility] Comment on above: Performed By: #### R PRQ #### [facility] [address] [address] [address] Jerry Samuel Anion gap [Moles/Vol] 8.5 mmol/L Normal [facility] Comment on above: Performed By: #### R PRQ #### [facility] [address] [place] [address] Dr. Jerry Samuel AST [Catalytic activity/Vol] 12 U/L Critically low 15-37 [facility] Comment on above: Performed By: #### R PRQ #### [facility] [address] [place] [address] Dr. Jerry Samuel Bilirubin [Mass/Vol] 0.3 mg/dL Normal 0.2-1.0 [facility] Comment on above: Performed By: #### R PRQ #### [facility] [address] [place] [address] Dr. Jerry Samuel Calcium [Mass/Vol] 9.2 mg/dL Normal 8.5-10.[address] [facility] Comment on above: Performed By: #### R PRQ #### [facility] [address] [place] [address] Dr. Jerry Samuel Chloride [Moles/Vol] 105 mmol/L Normal 98-107 [facility] Comment on above: Performed By: #### R PRQ #### [facility] [address] [address] [address] Jerry Samuel CO2 [Moles/Vol] 25.0 mmol/L Normal 21.0-32.0 [facility] Comment on above: Performed By: #### R PRQ #### [facility] [address] [place] [address] Dr. Jerry Samuel Creatinine [Mass/Vol] 0.40 mg/dL Critically low 0.55-1.02 [facility] Comment on above: Performed By: #### R PRQ #### [facility] [address] [place] [address] Dr. Jerry Samuel EGFR-AF JAMAICAN >60 Normal >=60 [facility] Comment on above: Performed By: #### R PRQ #### [facility] [address] [address] [address] Jerry Samuel EGFR-NON AF J[place]ICAN >60 Normal >=60 [facility] Comment on above: Performed By: #### R PRQ #### [facility] [address] [place] [address] Dr. Jerry Samuel Globulin (S) [Mass/Vol] 3.5 g/dL Normal [facility] Comment on above: Performed By: #### R PRQ #### [facility] [address] [place] [address] Dr. Jerry Samuel Glucose [Mass/Vol] 94 mg/dL Normal 74-[address] [facility] Comment on above: Performed By: #### R PRQ #### [facility] [address] [place] [address] Dr. Jerry Samuel Potassium [Moles/Vol] 3.5 mmol/L Normal 3.5-5.1 [facility] Comment on above: Performed By: #### R PRQ #### [facility] [address] [place] [address] Dr. Jerry Samuel Protein [Mass/Vol] 6.9 g/dL Normal 6.4-8.[address] [facility] Comment on above: Performed By: #### R PRQ #### [facility] [address] [place] [address] Dr. Jerry Samuel Sodium [Moles/Vol] 135 mmol/L Critically low 136-145 [facility] Comment on above: Performed By: #### R PRQ #### [facility] [address] [place] [address] Dr. Jerry Samuel Urea nitrogen [Mass/Vol] 6.0 mg/dL Critically low 7.0-18.0 [facility] Comment on above: Performed By: #### R PRQ #### [facility] [address] [place] [address] Dr. Jerry Samuel Urea nitrogen/Creatinine [Mass ratio] 15.0 mg/mg Normal [facility] Comment on above: Performed By: #### R PRQ #### [facility] [address] [place] [address] Dr. Jerry Samuel DOROTEO BOX TEST PT SEND OUTo n 05-02-2022 SENT TO REF LAB 05/02/2022 Normal [facility] Comment on above: Performed By: #### N BOX #### [facility] [address] [place] [address] Dr. Jerry Samuel HEP B SURFACE ANTIGEN SCREEN on 04-05-2022 HBsAg Screen Negative Normal Negative [facility] Comment on above: Performed By: #### N BOX #### [facility] [address] [place] [address] Dr. Jerry Samuel HEPATITIS C VIRUS AB W/ REFL EX QUANTon 04-05-2022 HCV AB <0.1 Normal 0.0-0.9 [facility] Comment on above: Performed By: #### H CVPCRR #### [facility] [address] [place] [address] Dr. Jerry Samuel Interpretation: Comment Normal [facility] Comment on above: Result Comment: Nega tive Not infected with HCV, unless recent infection is suspected or other evidence exists to indicate HCV infection. Performed By: #### H CVPCRR #### [facility] [address] [place] [address] Dr. Jerry Samuel HIV 1 AND 2 WITH REFLEXon HIV Screen 4th Generation wRfx Non-Reactive Normal Non Reactive [facility] Comment on above: Result Comment: HIV Negative HIV-1/HIV-2 antibodies and HIV-1 p24 antigen were NOT detected. There is no laboratory evidence of HIV infection. Performed By: #### R PRQ #### [facility] [address] [place] [place] [address] Dr. Jerry Samuel RPR QUANTon 04-05-2022 Rapid Plasma Reagin, Quant Non-Reactive Normal NonRea<1:1 [facility] Comment on above: Result Comment: Nathaly wilkes Note: This test does not meet current guidelines for screening and diagnosis of syphilis. This test is intended for following treatment response in patients being treated for syphilis infection. To screen for syphilis infection, a reflex cascade that includes both RPR and a treponema-specific assay should be utilized, such as Treponema pallidum (Syphilis) Screening [place] (851802) or Rapid Plasma Reagin (RPR) Test With Reflex to Quantitative RPR and Confirmatory Treponema pallidum Antibodies (851390). Performed By: #### R PRQ #### [facility] [address] [place] [address] Dr. Jerry Samuel RUBELLA AB IGGon 04-05-2022 Rubella Antibodies, IgG 1.97 index Normal Immune >0.99 [facility] Comment on above: Result Comment: Non- immune <0.90 Equivocal 0.90 - 0.99 Immune >0.99 Performed By: #### R UBIGG #### [facility] [address] [place] [address] Dr. Jerry Samuel CBC AUTO DIFFon 04-04-2022 BASO # 0.0 103/ul Normal 0.0-0.1 [facility] Comment on above: Performed By: #### R PRQ #### [facility] [address] [place] [address] Dr. Jerry Samuel Basophils/100 WBC (Bld) 0.3 % Normal 0.2-2.0 [facility] Comment on above: Performed By: #### R PRQ #### [facility] [address] [place] [address] Dr. Jerry Samuel EO # 0.1 103/ul Normal 0.0-0.7 [facility] Comment on above: Performed By: #### R PRQ #### [facility] [address] [place] [address] Dr. Jerry Samuel Eosinophils/100 WBC (Bld) 0.7 % Critically low 0.9-7.0 [facility] Comment on above: Performed By: #### R PRQ #### [facility] [address] [place] [address] Dr. Jerry Samuel Erythrocyte distribution width (RBC) [Ratio] 12.3 % Normal 11.0-15.0 [facility] Comment on above: Performed By: #### R PRQ #### [facility] [address] [place] [address] Dr. Jerry Samuel Hematocrit (Bld) [Volume fraction] 35.1 % Critically low 36.0-48.0 [facility] Comment on above: Performed By: #### R PRQ #### [facility] [address] [place] [address] Dr. Jerry Samuel Hemoglobin (Bld) [Mass/Vol] 11.8 g/dL Critically low 12.0-16.0 [facility] Comment on above: Performed By: #### R PRQ #### [facility] [address] [place] [address] Dr. Jerry Samuel IG # 0.02 10e3/ul Normal 0.00-0.03 [facility] Comment on above: Performed By: #### R PRQ #### [facility] [address] [place] [address] Dr. Jerry Samuel IG % 0.3 % Normal 0.0-0.5 [facility] Comment on above: Performed By: #### R PRQ #### [facility] [address] [place] [address] Dr. Jerry Samuel LYMPH # 2.0 103/ul Normal 1.2-3.8 [facility] Comment on above: Performed By: #### R PRQ #### [facility] [address] [place] [address] Dr. Jerry Samuel Lymphocytes/100 WBC (Bld) 26.7 % Normal 20.5-60.0 [facility] Comment on above: Performed By: #### R PRQ #### [facility] [address] [place] [address] Dr. Jerry Samuel MANUAL DIFF REQ NO Normal [facility] Comment on above: Performed By: #### R PRQ #### [facility] [address] [address] [address] Jerry Samuel MCH (RBC) [Entitic mass] 29.0 pg Normal 26.7-34.0 [facility] Comment on above: Performed By: #### R PRQ #### [facility] [address] [place] [address] Dr. Jerry Samuel MCHC (RBC) [Mass/Vol] 33.6 g/dL Normal 29.9-35.2 [facility] Comment on above: Performed By: #### R PRQ #### [facility] [address] [place] [address] Dr. Jerry Samuel MCV (RBC) [Entitic vol] 86.2 fL Normal 81.0-99.0 [facility] Comment on above: Performed By: #### R PRQ #### [facility] [address] [place] [address] Dr. Jerry Samuel MONO # 0.5 103/ul Normal 0.3-0.8 [facility] Comment on above: Performed By: #### R PRQ #### [facility] [address] [place] [address] Dr. Jerry Samuel Monocytes/100 WBC (Bld) 6.7 % Normal 1.7-12.0 [facility] Comment on above: Performed By: #### R PRQ #### [facility] [address] [place] [address] Dr. Jerry Samuel NEUT # 4.9 103/ul Normal 1.4-6.5 [facility] Comment on above: Performed By: #### R PRQ #### [facility] [address] [place] [address] Dr. Jerry Samuel Neutrophils/100 WBC (Bld) 65.3 % Normal 43.0-75.0 [facility] Comment on above: Performed By: #### R PRQ #### [facility] [address] [place] [address] Dr. Jerry Samuel Platelet mean volume (Bld) [Entitic vol] 10.0 fL Normal 9.5-13.5 [facility] Comment on above: Performed By: #### R PRQ #### [facility] [address] [address] [address] Jerry Samuel PLT 218 103/ul Normal 150-450 [facility] Comment on above: Performed By: #### R PRQ #### [facility] [address] [address] [address] Jerry Samuel RBC 4.07 106/ul Critically low 4.20-5.[address] [facility] Comment on above: Performed By: #### R PRQ #### [facility] [address] [address] [address] Jerry Samuel WBC 7.5 103/ul Normal 4.0-11.0 [facility] Comment on above: Performed By: #### R PRQ #### [facility] [address] [place] [address] Dr. Jerry Samuel CULTURE URINEon 04-04-2022 CULTURE URINE Culture Observations : NO GROWTH. Normal [facility] Comment on above: Performed By: #### N BOX #### [facility] [address] [address] [address] Jerry Samuel GLYCOHEMOGLOBIN A1Con 2021 ADA RECOMMENDATION SEE BELOW Normal [facility] Comment on above: Result Comment: ADA RECOMMENDED LIMIT 4.0 - 6.0 ADA THERAPEUTIC TARGET < 7.0 ACTION SUGGESTED > 7.0 Performed By: #### N BOX #### [facility] [address] [address] [address] Jerry Samuel Glucose [Mass/Vol] 97 mg/dL Normal [facility] Comment on above: Performed By: #### N BOX #### [facility] [address] [address] [address] Jerry Samuel HbA1c (Bld) [Mass fraction] 5.0 % Normal 4.5-6.2 [facility] Comment on above: Performed By: #### N BOX #### [facility] [address] [address] [address] Jerry Samuel TYPE AND SCREENon 04-04-2022 TYPE AND SCREEN Negative Normal [facility] Comment on above: Performed By: #### N BOX #### [facility] [address] [address] [address] Jerry Samuel US PREG TVon 04-04-2022 [...] EDITH WILLIS Date: 2022-04-04 16:13 Normal [facility] PREG QUANT HCGon 03-07-2022 HCG QUANT 2201 mIU/mL Normal [facility] Comment on above: Performed By: #### R PRQ #### [facility] [address] [place] [address] Dr. Jerry Samuel HCG RANGE SEE BELOW Normal [facility] Comment on above: Result Comment: 5-50 0.2-1 WEEK 50-500 1-2 WEEKS 100-5,000 2-3 WEEKS 500-10,000 3-4 WEEKS 1,000-50,000 4-5 WEEKS 10,000-100,000 5-6 WEEKS 15,000-200,000 6-8 WEEKS 10,000-100,000 2-3 MONTHS Performed By: #### R PRQ #### [facility] [address] [place] [address] Dr. Jerry Samuel PREG QUANT HCGon 03-05-2022 HCG QUANT 820 mIU/mL Normal [facility] Comment on above: Performed By: #### R PRQ #### [facility] [address] [place] [address] Dr. Jerry Samuel HCG RANGE SEE BELOW Normal [facility] Comment on above: Result Comment: 5-50 0.2-1 WEEK 50-500 1-2 WEEKS 100-5,000 2-3 WEEKS 500-10,000 3-4 WEEKS 1,000-50,000 4-5 WEEKS 10,000-100,000 5-6 WEEKS 15,000-200,000 6-8 WEEKS 10,000-100,000 2-3 MONTHS Performed By: #### R PRQ #### [facility] [address] [place] [address] Dr. Jerry Samuel PAP ACOG PANEL 2: 21 to 29on 02-21-2022 . . Normal [facility] Comment on above: Performed By: #### R PRQ #### [facility] [address] [place] [address] Dr. Jerry Samuel Age Gdln ACOG Testing - [facility] Comment on above: Performed By: #### R PRQ #### [facility] [address] [place] [address] Dr. Jerry Samuel DIAGNOSIS: Comment [facility] Comment on above: Result Comment: NEGA TIVE FOR INTRAEPITHELIAL LESION OR MALIGNANCY. SPECIMEN REPROCESSED FOR INTERPRETATION. Performed By: #### R PRQ #### [facility] [address] [place] [address] Dr. Jerry Samuel Methodology: Comment [facility] Comment on above: Result Comment: This liquid based ThinPrep(R) pap test was screened with the use of an image guided system. Performed By: #### R PRQ #### [facility] [address] [place] [address] Dr. Jerry Samuel Note: Comment [facility] Comment on above: Result Comment: The Pap smear is a screening test designed to aid in the detection of premalignant and malignant conditions of the uterine cervix. It is not a diagnostic procedure and should not be used as the sole means of detecting cervical cancer. Both false-positive and false-negative reports do occur. . Performed By: #### R PRQ #### [facility] [address] [place] [address] Dr. Jerry Samuel Performed by: Comment [facility] Comment on above: Result Comment: Anders Roman, Psychologist Personnel (ASCP) Performed By: #### R PRQ #### [facility] [address] [place] [address] Dr. Jerry Samuel Reflex Criteria: Comment Normal [facility] Comment on above: Result Comment: The HPV DNA reflex criteria were not met with this specimen result therefore, no HPV testing was performed. . Performed By: #### R PRQ #### [facility] [address] [place] [address] Dr. Jerry Samuel Specimen adequacy: Comment Normal [facility] Comment on above: Result Comment: Sati sfactory for evaluation. Endocervical and/or squamous metaplastic cells (endocervical component) are present. Performed By: #### R PRQ #### [facility] [address] [place] [address] Dr. Jerry Samuel US PELVIS AND TRANSVAGon [...] EDITH WILLIS Date: 2022-02-13 14:34 Normal [facility] CBC AUTO DIFFon 02-12-2022 BASO # 0.0 103/ul Normal 0.0-0.1 [facility] Comment on above: Performed By: #### C BC #### [facility] [address] [place] [address] Dr. Jerry Samuel Basophils/100 WBC (Bld) 0.6 % Normal 0.2-2.0 [facility] Comment on above: Performed By: #### C BC #### [facility] [address] [place] [address] Dr. Jerry Samuel EO # 0.1 103/ul Normal 0.0-0.7 [facility] Comment on above: Performed By: #### C BC #### [facility] [address] [place] [address] Dr. Jerry Samuel Eosinophils/100 WBC (Bld) 1.2 % Normal 0.9-7.0 [facility] Comment on above: Performed By: #### C BC #### [facility] [address] [place] [address] Dr. Jerry Samuel Erythrocyte distribution width (RBC) [Ratio] 11.9 % Normal 11.0-15.0 [facility] Comment on above: Performed By: #### C BC #### [facility] [address] [place] [address] Dr. Jerry Samuel Hematocrit (Bld) [Volume fraction] 39.1 % Normal 36.0-48.0 [facility] Comment on above: Performed By: #### C BC #### [facility] [address] [place] [address] Dr. Jerry Samuel Hemoglobin (Bld) [Mass/Vol] 13.0 g/dL Normal 12.0-16.0 [facility] Comment on above: Performed By: #### C BC #### [facility] [address] [place] [address] Dr. Jerry Samuel IG # 0.01 10e3/ul Normal 0.00-0.03 [facility] Comment on above: Performed By: #### C BC #### [facility] [address] [place] [address] Dr. Jerry Samuel IG % 0.2 % Normal 0.0-0.5 [facility] Comment on above: Performed By: #### C BC #### [facility] [address] [place] [address] Dr. Jerry Samuel LYMPH # 2.4 103/ul Normal 1.2-3.8 [facility] Comment on above: Performed By: #### C BC #### [facility] [address] [place] [address] Dr. Jerry Samuel Lymphocytes/100 WBC (Bld) 37.7 % Normal 20.5-60.0 [facility] Comment on above: Performed By: #### C BC #### [facility] [address] [place] [address] Dr. Jerry Samuel MANUAL DIFF REQ NO Normal [facility] Comment on above: Performed By: #### C BC #### [facility] [address] [place] [address] Dr. Jerry Samuel MCH (RBC) [Entitic mass] 29.2 pg Normal 26.7-34.0 [facility] Comment on above: Performed By: #### C BC #### [facility] [address] [place] [address] Dr. Jerry Samuel MCHC (RBC) [Mass/Vol] 33.2 g/dL Normal 29.9-35.2 [facility] Comment on above: Performed By: #### C BC #### [facility] [address] [place] [address] Dr. Jerry Samuel MCV (RBC) [Entitic vol] 87.9 fL Normal 81.0-99.0 [facility] Comment on above: Performed By: #### C BC #### [facility] [address] [place] [address] Dr. Jerry Samuel MONO # 0.4 103/ul Normal 0.3-0.8 [facility] Comment on above: Performed By: #### C BC #### [facility] [address] [place] [address] Dr. Jerry Samuel Monocytes/100 WBC (Bld) 5.9 % Normal 1.7-12.0 [facility] Comment on above: Performed By: #### C BC #### [facility] [address] [place] [address] Dr. Jerry Samuel NEUT # 3.5 103/ul Normal 1.4-6.5 [facility] Comment on above: Performed By: #### C BC #### [facility] [address] [place] [address] Dr. Jerry Samuel Neutrophils/100 WBC (Bld) 54.4 % Normal 43.0-75.0 [facility] Comment on above: Performed By: #### C BC #### [facility] [address] [place] [address] Dr. Jerry Samuel Platelet mean volume (Bld) [Entitic vol] 9.9 fL Normal 9.5-13.5 [facility] Comment on above: Performed By: #### C BC #### [facility] [address] [place] [address] Dr. Jerry Samuel PLT 229 103/ul Normal 150-450 [facility] Comment on above: Performed By: #### C BC #### [facility] [address] [place] [address] Dr. Jerry Samuel RBC 4.45 106/ul Normal 4.20-5.40 [facility] Comment on above: Performed By: #### C BC #### [facility] [address] [place] [address] Dr. Jerry Samuel WBC 6.5 103/ul Normal 4.0-11.0 [facility] Comment on above: Performed By: #### C BC #### [facility] [address] [place] [address] Dr. Jerry Samuel FREE T4on 02-12-2022 Free T4 [Mass/Vol] 0.99 ng/dL Normal 0.76-1.46 [facility] Comment on above: Performed By: #### R PRQ #### [facility] [address] [place] [address] Dr. Jerry Samuel GLYCOHEMOGLOBIN A1Con 2021 ADA RECOMMENDATION SEE BELOW Normal [facility] Comment on above: Result Comment: ADA RECOMMENDED LIMIT 4.0 - 6.0 ADA THERAPEUTIC TARGET < 7.0 ACTION SUGGESTED > 7.0 Performed By: #### R PRQ #### [facility] [address] [place] [address] Dr. Jerry Samuel Glucose [Mass/Vol] 103 mg/dL Normal [facility] Comment on above: Performed By: #### R PRQ #### [facility] [address] [place] [address] Dr. Jerry Samuel HbA1c (Bld) [Mass fraction] 5.2 % Normal 4.5-6.2 [facility] Comment on above: Performed By: #### R PRQ #### [facility] [address] [place] [address] Dr. Jerry Samuel PROTIMEon 02-12-2022 INR Coag (PPP) [Relative time] 1.00 {INR} Normal [facility] Comment on above: Performed By: #### N BOX #### [facility] [address] [place] [address] Dr. Jerry Samuel INR GUIDELINES SEE BELOW Normal [facility] Comment on above: Result Comment: SACHA RED INR: 2.0 - 3.0 CONDITIONS NOT LISTED BELOW 2.5 - 3.5 FOR PROSTHETIC HEART VALVE REPLACEMENT 2.5 - 3.5 RECURRENT THROMBOSIS Performed By: #### N BOX #### [facility] [address] [place] [address] Dr. Jerry Samuel PT Coag (PPP) [Time] 10.8 s Normal 9.0-11.6 [facility] Comment on above: Performed By: #### N BOX #### [facility] [address] [place] [address] Dr. Jerry Samuel PTTon 02-12-2022 aPTT Coag (Bld) [Time] 27.8 s Normal 22.3-36.2 [facility] Comment on above: Performed By: #### N BOX #### [facility] [address] [place] [address] Dr. Jerry Samuel TSHon 02-12-2022 TSH 1.741 uIU/mL Normal 0.358-3.740 [facility] Comment on above: Performed By: #### T SH #### [facility] [address] [place] [address] Dr. Jerry Samuel Outside Recordson 11-20-2021 Outside Records [id number]#1.00OTG TIFF Normal [facility] Outside Recordson 11-16-2021 Outside Records [id number]#1.00OT GTIFF Normal [facility] HCG,Urineon 02-22-2021 Beta HCG ( test) Ql (U) Negative Normal [facility] Comment on above: Result Comment: PERF ORMED BY: [place] [address] PATHOLOGIST [facility] [employer] WHITE M.D. Performed By: #### U HCG #### [place] [id number] [facility] 02-22-2021 L ---- Specimen: [id number] Received: 02/23/21 Status: DRE [place] Num: [id number] Spec Type: Surgical Subm Dr: Edith Cagle Jr, Tissues: A Duodenum - Biopsy (DUODENUM BX) B Stomach - Biopsy/Polyp (ANTRUM BX) C Colon Biopsy (RANDOM COLON) Procedures: HE Stain/6, Gross/Micro L4/3 Patient Age/Sex Location Account Attending Physician Will Shay Jose Luis [id number] Edith Cagle Jr, DO SPEC NUM: [id number] RECD: 02/23/21 STATUS: DRE ELIZABETH NUM: [id number] CASIMIRO: 02/22/21- DR: Edith Cagle Jr, ENTERED: 02/23/[address]: ANITA TYPE: Surgical DEPT: S ENTERED BY: [id number] RECV BY: [id number] ORDERED: HE Stain/6, Gross/Micro L4/3 ORDERED: HE [...] in one cassette labeled B1. (SM/YJ) Specimen: [id number] Received: 02/23/21 Status: DRE Elizabeth Num: [id number] Spec Type: Surgical Subm Dr: Edith Cagle Jr, Tissues: A Duodenum - Biopsy (DUODENUM BX) B Stomach - Biopsy/Polyp (ANTRUM BX) C Colon Biopsy (RANDOM COLON) Procedures: HE Stain/6, Gross/Micro L4/3 Patient: Will Shay [id number] (Continued) Specimen: [id number] Received: 02/23/21 (Continued) Gross Description (Continued) Signed (signature on file) Gail Crockett MD 02/26/21 1601 Specimen: [id number] Received: 02/23/21 Status: DRE Elizabeth Num: [id number] Spec Type: Surgical Subm Dr: Edith Cagle Jr, DO Tissues: A Duodenum - Biopsy (DUODENUM BX) B Stomach - Biopsy/Polyp (ANTRUM BX) C Colon Biopsy (RANDOM COLON) Procedures: HE Stain/6, Gross/Micro L4/3 Patient: Will Shay [id number] (Continued) Specimen: [id number] Received: 02/23/21 (Continued) Gross Description (Continued) C. [...] characteristics were determined by the Laboratory of [facility]. Immunohistochemistry assays have not been validated on decalcified tissue. Results should be interpreted with caution given the possibility of false negative results on decalcified specimens. They have not been cleared by the [place] Food and Drug Administration. The FDA has determined that such clearance or approval is not necessary. CPT Codes 86526?3, 88209 (more content not included)... Normal [facility] COVID-19 [facility] SARS-CoV-2 (COVID-19) RNA ELINOR+probe Ql (Unsp spec) Negative Normal Negative [facility] Comment on above: Order Comment: Healt hcare Worker?: N Result Comment: Testing for SARS-CoV-2 by RT-PCR This test was developed and its performance characteristics determined by [employer], Shahab P. Tabatabai, Broker ([employer]) and validated at the [facility]. This test has not been FDA [...] is terminated or revoked sooner. PERFORMED BY: [facility] [place] [address] PATHOLOGIST [facility] WHITE M.D. Performed By: #### C OVID 19 [facility] #### [address] Vital Signs Date Time Vital Sign Value Performing Clinician Facility 03-26-2023 13:45-0500 Body height 164.47 cm Ben Rose Other [facility] Other 03-26-2023 13:45-0500 Body mass index (BMI) [Ratio] 29.6 kg/m2 Ben Rose Other [facility] Other 03-26-2023 13:45-0500 Body weight 80.06 kg Ben Rose Other [facility] Other 03-26-2023 13:45-0500 Diastolic blood pressure 74 mm[Hg] Ben Moralesy Other [facility] Other 03-26-2023 13:45-0500 Systolic blood pressure 120 mm[Hg] Ben Dirigobertoy Other [facility] Other 06-14-2022 17:07-0500 Body weight 79.[address] EDDIE VALIENTE . [facility] Comment on above: Performed By: #### RPRQ #### [facility] [address] [place] [address] Dr. Jerry Samuel 03-08-2022 11:15-0500 Body height 164.47 cm Ben Rose Other [facility] Other 03-08-2022 11:15-0500 Body mass index (BMI) [Ratio] 29.01 kg/m2 Ben Rose Other [facility] Other 03-08-2022 11:15-0500 Body weight 78.47 kg Ben Rose Other [facility] Other 03-08-2022 11:15-0500 Diastolic blood pressure 73 mm[Hg] Ben Rose Other [facility] Other 03-08-2022 11:15-0500 Systolic blood pressure 113 mm[Hg] Ben Rose Other [facility] Other Encounters Encounter Date Encounter Type Care Provider Facility Start: 12-17-2023 End: 12-17-2023 ambulatory NORA SIU Not Available Start: 12-12-2023 End: 12-12-2023 ambulatory EDDIE VALIENTE Not Available Start: 03-27-2023 End: 03-27-2023 ambulatory GENTRY KIM Not Available Start: 03-26-2023 End: 03-26-2023 ambulatory Ben Rose Other [facility] Other Start: 03-26-2023 Patient encounter procedure Ben [facility] Start: 03-05-2023 End: 03-05-2023 ambulatory EDDIE VALIENTE Not Available Start: 01-24-2023 End: 01-24-2023 ambulatory Ben Rose Other [facility] Other Start: 01-24-2023 Telephone encounter Ben FORD [...] 03-08-2022 End: 03-08-2022 ambulatory Ben Rose Other [facility] Other Start: 03-08-2022 Patient encounter procedure Ben [...] 11-06-2021 End: 11-06-2021 ambulatory Angeles A Mikael PRESSFITTER-C Facility:[facility] Start: 11-05-2021 End: 11-06-2021 ambulatory Angeles A Mikael PRESSFITTER-C Facility:[facility] Immunizations Immunization Date Immunization Notes Care Provider Fa cility 11-08-2014 human papilloma viru s vaccine, quadrivalent Ben Rose Other [facility] Other Payers Date Payer Category Payer Unknown [id number] 2021 Unknown [id number] 1996 Unknown [id number] 2.16.84 [id number] 1996 Unknown [id number] 2.16.8 [id number] 1996 Unknown [id number] 2.16.84 [id number] 1996 Unknown [id number] 2.16.84 [id number] 1996 Unknown [id number] 2.16.84 [id number] 1996 Unknown [id number] 2.16.84 [id number] 1996 Unknown [id number] 2.16.84 0.1.915428.3.579.2.593 1996 Unknown [id number] [id number] 1996 Unknown [id number] .16.84 0.1.484001.3.579.2.593 1996 Unknown [id number] 2.16.84 [id number] 1996 Unknown [id number] .16.84 0.1.344269.3.579.2.593 1996 Unknown [id number] .16.84 0.1.450689.3.579.2.593 1996 Unknown [id number] .16.84 0.1.820273.3.579.2.593 1996 Unknown [id number] .16.84 0.1.429846.3.579.2.593 1996 Unknown [id number] 2.16.84 0.1.021063.3.579.2.593 1996 Unknown [id number] .16.84 0.1.118165.3.579.2.593 1996 Unknown [id number] 2.16.84 0.1.252773.3.579.2.593 1996 Unknown [id number] 2.16.84 0.1.984693.3.579.2.9 1996 Unknown [id number] 2.16.84 0.1.466828.3.579.2.1259 1996 Unknown [id number] 2.16.840 .1.860182.3.579.2.1259 1996 Unknown [id number] 2.16.840 .1.891601.3.579.2.1259 1959 Self-pay 1959 Unknown [id number] 2.16. 840.1.030593.19 1959 Unknown [id number] 2. 16.840.1.841870.19 1959 Unknown [id number] 1959 Unknown [id number] Unknown [id number] 2.16.84 0.1.556038.3.579.2.593 Social History Date Type Detail Facility Unknown if ever smoked [facility] Other Sex Assigned At Sex Assigned At Bir [facility] Other Evaluation note 03-26-2023 Note Date & [...] call office if she has no improvement [facility] Other Evaluation note 01-24-2023 Note Date & Type Note Facility 01-24-2023 Evaluation note Encounter Date Diagnosis Assessment Notes Jan, Epigastric burning sensation (ICD-10 - R10.13) [facility] Other Evaluation note 03-08-2022 Note Date & [...] DAILY CONTINUE LEVSIN NEEDED RTO 1 YR [facility] Other History general Narrative - Reported Note Date & Type Note Facility History general Narrative - Reported Type Medical History scoliosis Medical History hx of mono Surgical History [place] teeth x4 [facility] Other History general Narrative - Reported Note Date & Type Note Facility History general Narrative - Reported Type Medical History scoliosis Medical History hx of mono Surgical History [place] teeth x4 Surgical History C section [facility] Other Summary Purpose Family History No Family History Records FoundNo Family History Records FoundNo Family History Records FoundNo Family History Records Found Advance Directives No Advanced Directives Records FoundNo Advanced Directives Records FoundNo Advanced Directives Records FoundNo Advanced Directives Records Found Additional Source Comments INFORMATION SOURCE (unrecogn ized section and content) DATE CREATED AUTHOR 02/27/2021 [facility] DATE CREATED AUTHOR AUTHOR'S ORGANIZ ATION 07/24/2022 [facility] DATE CREATED AUTHOR AUTHOR'S ORGANIZ ATION 08/08/2022 [facility] DATE CREATED AUTHOR AUTHOR'S ORGANIZ ATION 12/19/2023 [facility] EPIC REASON FOR VISIT (unrecogniz [...] BE BASED ON THE PRIMARY CLINICAL RECORDS. [employer] [facility] provides no warranty or guarantee of the accuracy or completeness of information in this document.
[2024-01-08 12:32] LABS: Basophils Percent Auto 0.1 % (0.2-2.0); Eosinophils Absolute Auto 0.1 10^3/uL (0.0-0.7); Hematocrit 36.4 % (36.0-48.0); Hemoglobin 11.9 g/dL (12.0-16.0); Immature Granulocytes Abs Auto 0.01 10^3/uL (0.00-0.03); Immature Granulocytes Pct Auto 0.1 % (0.0-0.5); Lymphocytes Absolute Auto 1.5 10^3/uL (1.2-3.8); Lymphocytes Percent Auto 22.8 % (20.5-60.0); Mean Corpuscular HGB Conc 32.7 g/dL (29.9-35.2); Mean Corpuscular Hemoglobin 28.1 pg (26.7-34.0); Mean Corpuscular Volume 86.1 fL (81.0-99.0); Mean Platelet Volume 10.7 fL (9.5-13.5); Monocytes Absolute Auto 0.4 10^3/uL (0.3-0.8); Neutrophils Absolute Auto 4.7 10^3/uL (1.4-6.5); Platelet Count 213 10^3/uL (150-450); Red Blood Count 4.23 10^6/uL (4.20-5.40); Red Cell Distribution Width 13.2 % (11.0-15.0); White Blood Count 6.7 10^3/uL (4.0-11.0)
== END 2024-01-08 12:10 | disposition home or self-care (01) ==
LOC: LAB 12:10
PROVIDERS: Visit Provider Obstetrics & Gynecology
DX: O21.9 Vomiting of pregnancy, unspecified (principal); O26.899 Other specified pregnancy related conditions, unspecified trimester; R42 Dizziness and giddiness; Z3A.00 Weeks of gestation of pregnancy not specified
CPT/HCPCS: 36415; 85025

== ENCOUNTER 2024-02-18 12:38 | Outpatient (OUT) | payer BC, SELFPAY ==
--- OUTSIDE RECORDS SUMMARY | 2024-02-18 13:05 | XMS_ITS | CCD ---
Author Organization [facility] Care Team Providers Care Content Editor Name Role Phone Ben Rose Unavailable Mikael WAREHOUSE HANDLER-C, Angeles A Admitting Unavailable Mikael WAREHOUSE HANDLER-C, Angeles A Attending Unavailable Mikael WAREHOUSE HANDLER-C, Angeles A Primary Care Unavailable Mikael WAREHOUSE HANDLER-C, Angeles A Attending Unavailable Mikael WAREHOUSE HANDLER-C, Angeles A Primary Care Unavailable NOVA ., DR MORGAN Consulting Unavailable NOVA ., DR MORGAN Attending Unavailable NOVA ., DR MORGAN Admitting Unavailable REQUEST, DR NONE LISTED Primary Care Unavaila ble MIKAEL, ANGELES Attending Unavailable MIKAEL, ANGELES Primary Care Unavailable MIKAEL, ANGELES Admitting Unavailable NOVA ., DR MORGAN Consulting Unavailable NOVA ., DR MORGAN Attending Unavailable NOVA ., DR MORGAN Admitting Unavailable REQUEST, DR NONE LISTED Primary Care Unavaila ble ZIEBER, DR ABRIL Jennings Consulting Unavailable MIKAEL, ANGELES Primary Care Unavailable NVOA ., DR MORGAN Attending Unavailable NOVA ., DR MORGAN Consulting Unavailable NOVA ., DR MORGAN Admitting Unavailable NOVA ., DR MORGAN Attending Unavailable NOVA ., DR MORGAN Admitting Unavailable REQUEST, DR NONE LISTED Primary Care Unavaila ble TIN ., NNAMDI Consulting Unavailable TIN ., NNAMDI Attending Unavailable TIN ., NNAMDI Admitting Unavailable MIKAEL, ANGELES Primary Care Unavailable NOVA ., DR MORGAN Consulting Unavailable NOVA ., DR MORGAN Attending Unavailable NOVA ., DR MORGAN Admitting Unavailable REQUEST, DR NONE LISTED Primary Care Unavaila ble MIKAEL, ANGELES Primary Care Unavailable NOVA ., DR MORGAN Attending Unavailable NOVA ., DR MORGAN Admitting Unavailable NOVA ., DR MORGAN Consulting Unavailable NOVA ., DR MORGAN Attending Unavailable NOVA ., DR MORGAN Consulting Unavailable REQUEST, DR NONE LISTED Primary Care Unavaila ble NOVA ., DR MORGAN Admitting Unavailable SHERRON ., KIRSTY Consulting Unavailable SHERRON ., KIRSTY Attending Unavailable SHERRON ., KIRSTY Admitting Unavailable MIKAEL, ANGELES Primary Care Unavailable MIKAEL, ANGELES Primary Care Unavailable NOVA ., DR MORGAN Attending Unavailable WEST, DR EDITH Corey Consulting Unavailable NOVA ., DR MORGAN Admitting Unavailable NOVA ., DR MORGAN Consulting Unavailable NOVA ., DR MORGAN Consulting Unavailable NOVA ., DR MORGAN Admitting Unavailable REQUEST, DR NONE LISTED Primary Care Unavaila ble NOVA ., DR MORGAN Attending Unavailable MIKAEL, ANGELES Primary Care Unavailable NOVA ., DR MORGAN Attending Unavailable WEST, DR EDITH Corey Consulting Unavailable ONVA ., DR MORGAN Admitting Unavailable NOVA ., DR MORGAN Consulting Unavailable MIKAEL, ANGELES Primary Care Unavailable NOVA ., DR MORGAN Attending Unavailable NOVA ., DR MORGAN Consulting Unavailable NOVA ., DR MORGAN Admitting Unavailable NOVA ., DR MORGAN Consulting Unavailable NOVA ., DR MORGAN Attending Unavailable NOVA ., DR MORGAN Admitting Unavailable REQUEST, DR NONE LISTED Primary Care Unavaila ble NOVA ., DR MORGAN Consulting Unavailable NOVA ., DR MORGAN Attending Unavailable NOVA ., DR MORGAN Admitting Unavailable REQUEST, DR NONE LISTED Primary Care Unavaila ble Unavailable Primary Care Provider Unavailabl e NOVA, EDDIE Attending Unavailable GENTRY KIM Attending Unavailable SHERRON, KIRSTY Attending Unavailable NOVA, EDDIE Attending Unavailable NOVA, EDDIE Attending Unavailable Allergies Allergy Classification Reported Allergen(s) Allergy Type Date of Onset Reaction(s) Facility (3 sources) Penicillin G Drug Allergy Unknown [facility] DX Other (1 source) busPIRone; Translations: [buspirone hcl] Drug Allergy [facility] Repository (1 source) Coconut extract; Translations: [coconut] Drug Allergy [facility] Repository (9 sources) Penicillins; Translations: [penicillins] Propensity to adverse reactions to drug (disorder) [address] [facility] Repository (1 source) Amoxicillin Drug Allergy [facility] Repository (1 source) Penicillin Drug Allergy [facility] Repository (8 sources) busPIRone Drug Allergy 3 [facility] Work Phone: (8 sources) Minocycline Drug Allergy 3 Hives [facility] Medications Current Medications Medication Drug Class(es) Dates Sig (Normalized) Sig (Original) azithromycin 250 mg oral tablet (8 sources) Macrolide Antimicrobial Start: 3 azithromycin (Zithromax Z-Fredrick) 250 MG tablet Indications: COVID-19 Take as directed 6 tablet 03/27/2023 Active Cetirizine (2 sources) Histamine-1 Receptor Antagonist ZyrTEC Allergy Activ e citalopram 20 mg oral tablet (8 sources) Serotonin Reuptake Inhibitor Start: 4 End: 5 take 1 tablet by mouth in the morning citalopram (CeleXA) 20 MG tablet Indications: Anxiety, generalized (CMS/HCC) Take 1 tablet (20 mg) by mouth in the morning. 30 tablet 11 12/15/2023 12/14/2024 Active docusate sodium 100 mg oral capsule (7 sources) Start: 4 End: 5 take 1 capsule by mouth twice daily as needed for constipation docusate sodium (Colace) 100 MG capsule Indications: Constipation during in first trimester Take 1 capsule (100 mg) by mouth 2 (two) times a day as needed for constipation 60 capsule 5 01/07/2024 01/06/2025 Active esomeprazole 40 mg delayed release oral capsule (3 sources) Proton Pump Inhibitor Start: 4 take 1 capsule by mouth once daily esomeprazole (NexIUM) [address] capsule TAKE ONE CAPSULE BY MOUTH ONCE DAILY FOR 30 DAYS 10/29/2023 Active hyoscyamine sulfate 0.125 mg sublingual tablet (2 sources) Start: 2 take 1 tablet under the tongue four times daily as needed Hyoscyamine Sulfate 0.125 MG 1 tablet under the tongue and allow to dissolve as needed Sublingual FOUR TIMES DAILY NEEDED for 30 days PRN Nov, Active loratadine 10 mg oral tablet (1 source) take 1 tablet by mouth every twenty-four hours Claritin 10 MG 1 tablet Orally Once a day Active methylPREDNISolone (8 sources) Corticosteroid Start: 3 methylPREDNISolone (Medrol Dospak) 4 MG tablets Indications: COVID-19 As directed 21 tablet 03/27/2023 Active metoclopramide 10 mg oral tablet (7 sources) Dopamine-2 Receptor Antagonist Start: 4 End: 4 metoclopramide (Reglan) 10 MG tablet Indications: Nausea and vomiting in Take 1 tablet (10 mg) by mouth in the morning and 1 tablet (10 mg) at noon and 1 tablet (10 mg) in the evening. Take before meals. Take 1 tablet by mouth 30 minutes prior to meals 3 times daily as needed for nausea.. 90 tablet 3 12/11/2023 Active Misc. Devices (Medela Double Breast Pump) misc (7 sources) Start: 3 Misc. Devices (Medela Double Breast Pump) misc Indications: Mother currently breast-feeding 1 Device if needed (Use for based on desired schedule). 1 each 11/15/2022 Active omeprazole 20 mg delayed release oral capsule (4 sources) Proton Pump Inhibitor Start: 4 End: 4 take 1 capsule by mouth before mealtime omeprazole (PriLOSEC) [address] capsule Indications: Gastroesophageal Reflux Disease , Heartburn Take 1 capsule (20 mg) by mouth in the morning. Take before meals. Do not crush or chew.. 30 capsule 11 02/02/2024 03/03/2024 Active ondansetron 4 mg disintegrating oral tablet (4 sources) Serotonin-3 Receptor Antagonist Start: 4 End: 4 take 1 tablet by mouth every six hours for nausea ondansetron ODT (Zofran-ODT) 4 MG disintegrating tablet Indications: Nausea and vomiting during Take 1 tablet (4 mg) by mouth every 6 (six) hours if needed for nausea or vomiting 30 tablet 11 01/26/2024 02/25/2024 Active pantoprazole 40 mg delayed release oral tablet (7 sources) Proton Pump Inhibitor Start: 1 take 1 tablet by mouth every twenty-four hours Pantoprazole Sodium 40 MG 1 tablet Orally Once a day for 30 days Feb, Active Probiotic (3 sources) Probiotic EVERY OTHER MONTH Active promethazine hydrochloride 12.5 mg oral tablet (8 sources) Phenothiazine Start: 4 take 1 tablet by mouth every six hours as needed for nausea and nausea, then take 1 tablet by mouth every six hours as needed for nausea and nausea promethazine (Phenergan) 12.5 MG tablet Indications: Nausea and vomiting in Take 1 tablet (12.5 mg) by mouth every 6 (six) hours if needed for nausea or vomiting for up to 30 doses Take 1 tablet by mouth every 6 hours as needed for nausea. 30 tablet 11/24/2023 Active Problems Active Problems Problem Classification Problem Date Documented Da te Episodic/Chronic Abdominal pain (3 sources) Epigastric pain; Translations: [Lower abdominal pain, unspecified] Episodic Adjustment disorders (8 sources) Adjustment disorder with depressed mood; Translations: [Adjustment disorder with depressed mood] Onset: 3 09-13-2022 Chronic Anxiety disorders (8 sources) Anxiety; Translations: [Anxiety disorder, unspecified] Onset: 3 09-13-2022 Chronic Conditions associated with dizziness or vertigo (7 sources) Dizziness and giddiness; Translations: [Dizziness] Onset: 3 Episodic Esophageal disorders (13 sources) Gastroesophageal reflux disease; Translations: [Gastro-esophageal reflux disease without esophagitis] Onset: 3 Chronic Gastritis and duodenitis (3 sources) Gastritis; Translations: [Gastritis, unspecified, without bleeding] Episodic Headache; including migraine (3 sources) Tension-type headache; Translations: [Tension-type headache, unspecified, not intractable] Chronic Hemorrhage during ; abruptio placenta; placenta previa (1 source) Low lying placenta NOS or without hemorrhage, second trimester; Translations: [LOW LYING PL NOS W/O HEMORR 2ND TRI] Onset: 3 Episodic Immunizations and screening for infectious disease (4 sources) Encounter for screening for infections with a predominantly sexual mode of transmission; Translations: [Encounter for screening for human papillomavirus (HPV)] Onset: 2 02-09-2024 Episodic Menstrual disorders (18 sources) Irregular menstruation, unspecified; Translations: [Dysmenorrhea, unspecified] Onset: 2 Chronic Nausea and vomiting (1 source) Nausea Episodic Other acquired deformities (4 sources) Scoliosis, unspecified; Translations: [SCOLIOSIS UNSPECIFIED] Onset: 2 Chronic Other acquired deformities (8 sources) Acquired scoliosis; Translations: [Scoliosis, unspecified] Onset: 3 09-13-2022 Chronic Other complications of (1 source) Other specified related conditions, second trimester; Translations: [OTH SPEC PREG RELATED COND 2ND TRI] Onset: 3 Episodic Other complications of (2 sources) Vomiting of , unspecified; Translations: [Unspecified vomiting of , unspecified as to episode of care or not applicable] 01-07-2024 Episodic Other complications of (2 sources) Diseases of the digestive system complicating , first trimester; Translations: [Other current conditions classifiable elsewhere of mother, antepartum condition or complication] 01-07-2024 Episodic Other complications of (2 sources) Alpha-fetoprotein level - finding; Translations: [Abnormal hematological finding on screening of mother] 02-09-2024 Episodic Other disorders of stomach and duodenum [...] unspecified Episodic Other and delivery including normal (13 sources) Encounter for supervision of normal , unspecified, unspecified trimester; Translations: [Encounter for supervision of normal first , first trimester] Onset: 3 Episodic Other screening for suspected conditions (not mental disorders or infectious disease) (14 sources) Encounter for screening for diabetes mellitus; Translations: [Encounter for screening, unspecified] Onset: 2 Episodic Other upper respiratory disease (8 sources) Allergic rhinitis; Translations: [Allergic rhinitis, unspecified] Onset: 3 09-13-2022 Chronic Residual codes; unclassified (1 source) 21 weeks gestation of ; Translations: [21 WEEKS GESTATION OF ] Onset: 3 Episodic Residual codes; unclassified (1 source) 16 weeks gestation of ; Translations: [16 WEEKS GESTATION OF ] Onset: 3 Episodic Residual codes; unclassified (2 sources) Gestation period, 12 weeks; Translations: [12 weeks gestation of ] 01-07-2024 Episodic Residual codes; unclassified (2 sources) Gestation period, 17 weeks; Translations: [17 weeks gestation of ] 02-09-2024 Episodic Syncope (1 source) Syncope and collapse; Translations: [SYNCOPE AND COLLAPSE] Onset: 3 Episodic Unclassified (1 source) LOW BACK PAIN, UNSPECIFIED; Translations: [LOW BACK PAIN, UNSPECIFIED] Onset: 2 Past or Other Problems Problem Classification Problem Date Documented Da te Episodic/Chronic Gastrointestinal hemorrhage (8 sources) Blood-tinged feces; Translations: [Melena] Onset: 09-13-2022 09-13-2022 Episodic Mycoses (16 sources) Opportunistic mycosis; 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 09-13-2022 Episodic Other connective tissue disease (1 source) Pain in right leg; Translations: [PAIN IN RIGHT LEG] Onset: 11-12-2021 Episodic Other connective tissue disease (1 source) Abnormal posture; Translations: [ABNORMAL POSTURE] Onset: 11-15-2021 Episodic Other non-traumatic joint disorders (8 sources) Multiple joint pain; Translations: [Pain in unspecified joint] Onset: 09-13-2022 09-13-2022 Episodic Other skin disorders (8 sources) Acne; Translations: [Acne, unspecified] Onset: 09-13-2022 09-13-2022 Episodic Other skin disorders (8 sources) Subcutaneous nodule; Translations: [Localized swelling, mass and lump, unspecified] Onset: 09-13-2022 09-13-2022 Episodic Other upper respiratory infections (8 sources) Acute upper respiratory infection; Translations: [Acute upper respiratory infection, unspecified] Onset: 09-13-2022 09-13-2022 Episodic Ovarian cyst (1 source) Other ovarian cyst, right side; Translations: [OTHER OVARIAN CYST RIGHT SIDE] Onset: 02-18-2022 Episodic Residual codes; unclassified (1 source) 9 weeks gestation of ; Translations: [9 WEEKS GESTATION OF ] Onset: 04-11-2022 Episodic Residual codes; unclassified (8 sources) FH: Thyroid disorder; Translations: [Family history of other endocrine, nutritional and metabolic diseases] Onset: 09-13-2022 09-13-2022 Episodic Spondylosis; intervertebral disc disorders; other back problems (8 sources) Low back pain; Translations: [Low back pain] Onset: 09-13-2022 09-13-2022 Episodic Results Test Name Value Interpretation Reference Range Facility RECURRENT VAGINITIS (HTRX)on 02-11-2024 ATOPOBIUM VAGINAE 0 [facility] ATOPOBIUM VAGINAE Not detected [facility] BVAB 2,3 (BACTERIAL VAGINOSIS ASSOCIATED BACTERIA 2, 3); MOBILUNCUS SPP 0 [facility] BVAB 2,3 (BACTERIAL VAGINOSIS ASSOCIATED BACTERIA 2, 3); MOBILUNCUS SPP Not detected [facility] MARGARET ALBICANS, PARAPSILOSIS, TROPICALIS 0 [facility] MARGARET ALBICANS, PARAPSILOSIS, TROPICALIS Not detected [facility] MARGARET GLABRATA 0 [facility] MARGARET GLABRATA Not detected [facility] MARGARET KRUSEI 0 [facility] MARGARET KRUSEI Not detected [facility] CHLAMYDIA TRACHOMATIS 0 [facility] CHLAMYDIA TRACHOMATIS Not detected [facility] GARDNERELLA VAGINALIS 0 [facility] GARDNERELLA VAGINALIS Not detected [facility] MEGASPHAERA (TYPES 1, 2) 0 [facility] MEGASPHAERA (TYPES 1, 2) Not detected [facility] MYCOPLASMA GENITALIUM 0 [facility] MYCOPLASMA GENITALIUM Not detected [facility] NEISSERIA GONORRHOEAE 0 [facility] NEISSERIA GONORRHOEAE Not detected [facility] TRICHOMONAS VAGINALIS 0 [facility] TRICHOMONAS VAGINALIS Not detected [facility] Urinalysis macro (dipstick) panel (U)on 02-09-2024 Bilirubin, UA Negative Negative - 4(70) +++ mg/dL [facility] Blood, UA Negative Negative - 50 Daniel/mcL [facility] Clarity, UA Clear [facility] Color, UA Yellow [facility] Glucose, UA Negative Negative - 2000(110) ++++ mg/dL [facility] Interpretation and review of laboratory results Normal [facility] Ketones, UA Negative Negative - 160(16) ++++ mg/dL [facility] Leukocytes, UA Negative Negative - 500+++ Gavin/mcL [facility] Nitrite, UA Negative Negative - Positive [facility] pH, UA 5.5 5 - 9 [facility] Protein, UA Negative Negative - 2000(20) ++++ mg/dL [facility] Spec Grav, UA 1.02 1 - 1.03 [facility] Urobilinogen, UA 0.2 0.2 - 12 mg/dL [facility] ALL CBC WITH AUTO DIFFon BASOPHILS ABSOLUTE AUTO 0.0 [facility] Basophils/100 WBC (Bld) 0.1 % Low 0.2 - 2.0 % [facility] Eosinophils/100 WBC (Bld) 1.0 % 0.9 - 7.0 % [facility] Erythrocyte distribution width (RBC) [Ratio] 13.2 % 11.0 - 15.0 % [facility] Hematocrit (Bld) [Volume fraction] 36.4 % 36.0 - 48.0 % [facility] Hemoglobin (Bld) [Mass/Vol] 11.9 g/dL Low 12.0 - 16.0 g/dL [facility] IMMATURE GRANULOCYTES ABS AUTO 0.01 [facility] Immature granulocytes/100 WBC (Bld) 0.1 % 0.0 - 0.5 % [facility] Interpretation and review of laboratory results Abnormal [facility] LYMPHOCYTES ABSOLUTE AUTO 1.5 [facility] Lymphocytes/100 WBC (Bld) 22.8 % 20.5 - 60.0 % [facility] MCH (RBC) [Entitic mass] 28.1 pg 26.7 - 34.0 pg [facility] MCHC (RBC) [Mass/Vol] 32.7 g/dL 29.9 - 35.2 g/dL [facility] MCV (RBC) [Entitic vol] 86.1 fL 81.0 - 99.0 fL [facility] MONOCYTES ABSOLUTE AUTO 0.4 [facility] Monocytes/100 WBC (Bld) 6.0 % 1.7 - 12.0 % [facility] NEUTROPHILS ABSOLUTE AUTO 4.7 [facility] Neutrophils/100 WBC (Bld) 70.0 % 43.0 - 75.0 % [facility] Platelet mean volume (Bld) [Entitic vol] 10.7 fL 9.5 - 13.5 fL [facility] TBH EO # 0.1 [facility] PLT 213 [facility] RBC 4.23 [facility] WBC 6.7 [facility] Urinalysis macro (dipstick) panel (U)on 01-07-2024 Bilirubin, UA Negative Negative - 4(70) +++ mg/dL [facility] Blood, UA Negative Negative - 50 Daniel/mcL [facility] Clarity, UA Clear [facility] Color, UA Yellow [facility] Glucose, UA Negative Negative - 2000(110) ++++ mg/dL [facility] Interpretation and review of laboratory results Normal [facility] Ketones, UA Negative Negative - 160(16) ++++ mg/dL [facility] Leukocytes, UA Negative Negative - 500+++ Gavin/mcL [facility] Nitrite, UA Negative Negative - Positive [facility] pH, UA 6.5 5 - 9 [facility] Protein, UA Negative Negative - 2000(20) ++++ mg/dL [facility] Spec Grav, UA 1.020 1 - 1.03 [facility] Urobilinogen, UA 1.0 0.2 - 12 mg/dL [facility] CBC AUTO DIFFon 07-25-2022 BASO # 0.0 103/ul Normal 0.0-0.1 [facility] Comment on above: Performed By: #### C BC #### [facility] [address] [place] [address] Dr. Jerry Samuel Basophils/100 WBC (Bld) 0.3 % Normal 0.2-2.0 [facility] Comment on above: Performed By: #### C BC #### [facility] [address] [place] [address] Dr. Jerry Samuel EO # 0.1 103/ul Normal 0.0-0.7 [facility] Comment on above: Performed By: #### C BC #### [facility] [address] [place] [address] Dr. Jerry Samuel Eosinophils/100 WBC (Bld) 1.4 % Normal 0.9-7.0 [facility] Comment on above: Performed By: #### C BC #### [facility] [address] [place] [address] Dr. Jerry Samuel Erythrocyte distribution width (RBC) [Ratio] 13.2 % Normal 11.0-15.0 [facility] Comment on above: Performed By: #### C BC #### [facility] [address] [place] [address] Dr. Jerry Samuel Hematocrit (Bld) [Volume fraction] 33.9 % Critically low 36.0-48.0 [facility] Comment on above: Performed By: #### C BC #### [facility] [address] [place] [address] Dr. Jerry Samuel Hemoglobin (Bld) [Mass/Vol] 11.3 g/dL Critically low 12.0-16.0 [facility] Comment on above: Performed By: #### C BC #### [facility] [address] [place] [address] Dr. Jerry Samuel IG # 0.04 10e3/ul Critically high 0.00-0.03 [facility] Comment on above: Performed By: #### C BC #### [facility] [address] [place] [address] Dr. Jerry Samuel IG % 0.6 % Critically high 0.0-0.5 [facility] Comment on above: Performed By: #### C BC #### [facility] [address] [place] [address] Dr. Jerry Samuel LYMPH # 1.9 103/ul Normal 1.2-3.8 [facility] Comment on above: Performed By: #### C BC #### [facility] [address] [place] [address] Dr. Jerry Samuel Lymphocytes/100 WBC (Bld) 30.2 % Normal 20.5-60.0 [facility] Comment on above: Performed By: #### C BC #### [facility] [address] [place] [address] Dr. Jerry Samuel MANUAL DIFF REQ NO Normal [facility] Comment on above: Performed By: #### C BC #### [facility] [address] [place] [address] Dr. Jerry Samuel MCH (RBC) [Entitic mass] 29.9 pg Normal 26.7-34.0 [facility] Comment on above: Performed By: #### C BC #### [facility] [address] [address] [address] Jerry Samuel MCHC (RBC) [Mass/Vol] 33.3 g/dL Normal 29.9-35.2 [facility] Comment on above: Performed By: #### C BC #### [facility] [address] [place] [address] Dr. Jerry Samuel MCV (RBC) [Entitic vol] 89.7 fL Normal 81.0-99.0 [facility] Comment on above: Performed By: #### C BC #### [facility] [address] [place] [address] Dr. Jerry Samuel MONO # 0.5 103/ul Normal 0.3-0.8 [facility] Comment on above: Performed By: #### C BC #### [facility] [address] [place] [address] Dr. Jerry Samuel Monocytes/100 WBC (Bld) 7.2 % Normal 1.7-12.0 [facility] Comment on above: Performed By: #### C BC #### [facility] [address] [place] [address] Dr. Jerry Samuel NEUT # 3.8 103/ul Normal 1.4-6.5 [facility] Comment on above: Performed By: #### C BC #### [facility] [address] [place] [address] Dr. Jerry Samuel Neutrophils/100 WBC (Bld) 60.3 % Normal 43.0-75.0 [facility] Comment on above: Performed By: #### C BC #### [facility] [address] [place] [address] Dr. Jerry Samuel Platelet mean volume (Bld) [Entitic vol] 9.8 fL Normal 9.5-13.5 [facility] Comment on above: Performed By: #### C BC #### [facility] [address] [place] [address] Dr. Jerry Samuel PLT 188 103/ul Normal 150-450 [facility] Comment on above: Performed By: #### C BC #### [facility] [address] [place], [place] [address] Dr. Jerry Samuel RBC 3.78 106/ul Critically low 4.20-5.40 [facility] Comment on above: Performed By: #### C BC #### [facility] [address] [place], [place] [address] Dr. Jerry Samuel WBC 6.2 103/ul Normal 4.0-11.0 [facility] Comment on above: Performed By: #### C BC #### [facility] [address] [place], [place] [address] Dr. Jerry Samuel GLUCOSE - 1HRon 07-25-2022 Glucose [Mass/Vol] 100 mg/dL Normal 74-[address] [facility] Comment on above: Performed By: #### N BOX #### [facility] [address] [place], [place] [address] Dr. Jerry Samuel US PREG ANATOMY SINGLEon [...] ABRIL SCANLON Date: 2022-07-02 13:45 Normal [facility] AFP MATERNAL FOR SPINA BIFID Aon 06-14-2022 AFP MoM 0.87 Normal [facility] Comment on above: Performed By: #### R PRQ #### [facility] [address] [address] [address] Jerry Samuel AFP Value 39.6 ng/mL Normal [facility] Comment on above: Performed By: #### R PRQ #### [facility] [address] [address] [address] Jerry Samuel AFP, Serum for Spina Bifida Report Normal [facility] Comment on above: Performed By: #### R PRQ #### [facility] [address] [address] [address] Jerry Samuel Comment Comment Normal [facility] Comment on above: Result Comment: Irina Petersen, Ph.D., [facility] Director . References: Available Upon Request. . Multiples Of Median Cutoffs For AFP Elevations Patrick 2.5 Black 2.8 IDD 2.0 Twins 4.5 Abbreviation Definitions IDD - Insulin Dep Diabetes OSBR - Open Spina Bifida Risk . For further inquiries contact [employer] [facility] at [phone]. . This test was developed and its performance characteristics determined by [employer]. It has not been cleared or approved by the Food and Drug Administration. Performed By: #### R PRQ #### [facility] [address] [address] [address] Jerry Chinchilla Age Collection Date 18.9 weeks Normal [facility] Comment on above: Performed By: #### R PRQ #### [facility] [address] [address] [address] Jerry Samuel Gestat, Age Based on Ultrasound Normal [facility] Comment on above: Result Comment: 09.0 on 04/04/2022 Recalculations are not recommended when gestational dating by LMP and ultrasound are within 10 days. Performed By: #### R PRQ #### [facility] [address] [place] [address] Dr. Jerry Samuel Insulin Dep Diabetes No Normal [facility] Comment on above: Performed By: #### R PRQ #### [facility] [address] [place] [address] Dr. Jerry Samuel Interpretation Comment Normal [facility] Comment on above: Result Comment: [...] Customer Services to discuss available options. The [place] [employer] recommends amniocentesis be offered to women age 35 and older. Performed By: #### R PRQ #### [facility] [address] [place] [address] Dr. Jerry Samuel [age] [facility] Comment on above: Performed By: #### R PRQ #### [facility] [address] [place] [address] Dr. Jerry Samuel Multiple Gestation No Normal [facility] Comment on above: Performed By: #### R PRQ #### [facility] [address] [place] [address] Dr. Jerry Samuel OSBR Risk 1 [place] [address] [facility] Comment on above: Performed By: #### R PRQ #### [facility] [address] [place] [address] Dr. Jerry Samuel PDF . [facility] Comment on above: Performed By: #### R PRQ #### [facility] [address] [place] [address] Dr. Jerry Samuel [facility] Comment on above: Performed By: #### R PRQ #### [facility] [address] [place] [address] Dr. Jerry Samuel Test Results: Negative Normal [facility] Comment on above: Performed By: #### R PRQ #### [facility] [address] [place] [address] Dr. Jerry Samuel CHLAMYDIA/GONOCOCCUS ELINOR (SW AB/URINE/PAPon 06-07-2022 Chlamydia trachomatis, ELINOR Negative Normal Negative [facility] Comment on above: Performed By: #### R PRQ #### [facility] [address] [place] [address] Dr. Jerry Samuel Neisseria gonorrhoeae, ELINOR Negative Normal Negative [facility] Comment on above: Performed By: #### R PRQ #### [facility] [address] [place] [address] Dr. Jerry Samuel VAGINITIS/VAGINOSIS DNA PROB Nayan 06-06-2022 Margaret species Negative Normal Negative [facility] Comment on above: Performed By: #### V AGINT #### [facility] [address] [place] [address] Dr. Jerry Samuel Gardnerella vaginalis Negative Normal Negative [facility] Comment on above: Performed By: #### V AGINT #### [facility] [address] [place] [address] Dr. Jerry Samuel Trichomonas vaginalis Negative Normal Negative [facility] Comment on above: Performed By: #### V AGINT #### [facility] [address] [place] [address] Dr. Jerry Samuel CBC AUTO DIFFon 05-26-2022 BASO # 0.0 103/ul Normal 0.0-0.1 [facility] Comment on above: Performed By: #### C BC #### [facility] [address] [place] [address] Dr. Jerry Samuel Basophils/100 WBC (Bld) 0.1 % Critically low 0.2-2.0 [facility] Comment on above: Performed By: #### C BC #### [facility] [address] [place] [address] Dr. Jerry Samuel EO # 0.0 103/ul Normal 0.0-0.7 [facility] Comment on above: Performed By: #### C BC #### [facility] [address] [place] [address] Dr. Jerry Samuel Eosinophils/100 WBC (Bld) 0.4 % Critically low 0.9-7.0 [facility] Comment on above: Performed By: #### C BC #### [facility] [address] [place] [address] Dr. Jerry Samuel Erythrocyte distribution width (RBC) [Ratio] 12.6 % Normal 11.0-15.0 [facility] Comment on above: Performed By: #### C BC #### [facility] [address] [place] [address] Dr. Jerry Samuel Hematocrit (Bld) [Volume fraction] 34.0 % Critically low 36.0-48.0 [facility] Comment on above: Performed By: #### C BC #### [facility] [address] [place] [address] Dr. Jerry Samuel Hemoglobin (Bld) [Mass/Vol] 11.6 g/dL Critically low 12.0-16.0 [facility] Comment on above: Performed By: #### C BC #### [facility] [address] [place] [address] Dr. Jerry Samuel IG # 0.03 10e3/ul Normal 0.00-0.03 [facility] Comment on above: Performed By: #### C BC #### [facility] [address] [place] [address] Dr. Jerry Samuel IG % 0.4 % Normal 0.0-0.5 [facility] Comment on above: Performed By: #### C BC #### [facility] [address] [place] [address] Dr. Jerry Samuel LYMPH # 1.1 103/ul Critically low 1.2-3.8 [facility] Comment on above: Performed By: #### C BC #### [facility] [address] [place] [address] Dr. Jerry Samuel Lymphocytes/100 WBC (Bld) 16.5 % Critically low 20.5-60.0 [facility] Comment on above: Performed By: #### C BC #### [facility] [address] [place] [address] Dr. Jerry Samuel MANUAL DIFF REQ NO Normal [facility] Comment on above: Performed By: #### C BC #### [facility] [address] [place] [address] Dr. Jerry Samuel MCH (RBC) [Entitic mass] 29.1 pg Normal 26.7-34.0 [facility] Comment on above: Performed By: #### C BC #### [facility] [address] [place] [address] Dr. Jerry Samuel MCHC (RBC) [Mass/Vol] 34.1 g/dL Normal 29.9-35.2 [facility] Comment on above: Performed By: #### C BC #### [facility] [address] [place] [address] Dr. Jerry Samuel MCV (RBC) [Entitic vol] 85.2 fL Normal 81.0-99.0 [facility] Comment on above: Performed By: #### C BC #### [facility] [address] [place] [address] Dr. Jerry Samuel MONO # 0.4 103/ul Normal 0.3-0.8 [facility] Comment on above: Performed By: #### C BC #### [facility] [address] [place] [address] Dr. Jerry Samuel Monocytes/100 WBC (Bld) 6.0 % Normal 1.7-12.0 [facility] Comment on above: Performed By: #### C BC #### [facility] [address] [place] [address] Dr. Jerry Samuel NEUT # 5.1 103/ul Normal 1.4-6.5 [facility] Comment on above: Performed By: #### C BC #### [facility] [address] [place] [address] Dr. Jerry Samuel Neutrophils/100 WBC (Bld) 76.6 % Critically high 43.0-75.0 [facility] Comment on above: Performed By: #### C BC #### [facility] [address] [place] [address] Dr. Jerry Samuel Platelet mean volume (Bld) [Entitic vol] 10.5 fL Normal 9.5-13.5 [facility] Comment on above: Performed By: #### C BC #### [facility] [address] [place] [address] Dr. Jerry Samuel PLT 207 103/ul Normal 150-450 [facility] Comment on above: Performed By: #### C BC #### [facility] [address] [place] [address] Dr. Jerry Samuel RBC 3.99 106/ul Critically low 4.20-5.40 [facility] Comment on above: Performed By: #### C BC #### [facility] [address] [place] [address] Dr. Jerry Samuel WBC 6.7 103/ul Normal 4.0-11.0 [facility] Comment on above: Performed By: #### C BC #### [facility] [address] [place] [address] Dr. Jerry Samuel ER URINE PROFILEon 3 Bilirubin Ql (U) Negative Normal NEGATIVE [facility] Comment on above: Performed By: #### E RUR #### [facility] [address] [place] [address] Dr. Jerry Samuel Clarity (U) CLEAR Normal CLEAR [facility] Comment on above: Performed By: #### E RUR #### [facility] [address] [place] [address] Dr. Jerry Samuel Color (U) LT. YELLOW Normal YELLOW [facility] Comment on above: Performed By: #### E RUR #### [facility] [address] [place] [address] Dr. Jerry Samuel ERUAHD A micrscopic examina tion will be performed if indicated. Normal [facility] Comment on above: Performed By: #### E RUR #### [facility] [address] [place] [address] Dr. Jerry Samuel Glucose Ql (U) Negative Normal NEGATIVE [facility] Comment on above: Performed By: #### E RUR #### [facility] [address] [place] [address] Dr. Jerry Samuel Hemoglobin Ql (U) Negative Normal NEGATIVE [facility] Comment on above: Performed By: #### E RUR #### [facility] [address] [place] [address] Dr. Jerry Samuel Ketones Ql (U) Negative Normal NEGATIVE [facility] Comment on above: Performed By: #### E RUR #### [facility] [address] [place] [address] Dr. Jerry Samuel LEUKOCYTES Negative Normal NEGATIVE [facility] Comment on above: Performed By: #### E RUR #### [facility] [address] [place] [address] Dr. Jerry Samuel Nitrite Ql (U) Negative Normal NEGATIVE [facility] Comment on above: Performed By: #### E RUR #### [facility] [address] [place] [address] Dr. Jerry Samuel pH (U) 6.5 [pH] Normal 5-9 [facility] Comment on above: Performed By: #### E RUR #### [facility] [address] [place] [address] Dr. Jerry Samuel SPEC GRAVITY <=1.005 Abnormal 1.005-<=1.025 [facility] Comment on above: Performed By: #### E RUR #### [facility] [address] [place] [address] Dr. Jerry Samuel UA PROTEIN Negative Normal NEGATIVE/ TRACE [facility] Comment on above: Performed By: #### E RUR #### [facility] [address] [place] [address] Dr. Jerry Samuel UR MICRO IND NOT INDICATED Normal [facility] Comment on above: Performed By: #### E RUR #### [facility] [address] [place] [address] Dr. Jerry Samuel Urobilinogen Qn (U) 0.2 {Charlette'U}/dL Normal 0.2 - 1. 0 [facility] Comment on above: Performed By: #### E RUR #### [facility] [address] [address] [address] Jerry Samuel PROF 14(COMP METB)on 023 Albumin [Mass/Vol] 3.4 g/dL Normal 3.4-5.[address] [facility] Comment on above: Performed By: #### R PRQ #### [facility] [address] [place] [address] Dr. Jerry Samuel Albumin/Globulin [Mass ratio] 1.0 {ratio} Normal [facility] Comment on above: Performed By: #### R PRQ #### [facility] [address] [place] [address] Dr. Jerry Samuel ALP [Catalytic activity/Vol] 33 U/L Critically low 46-116 [facility] Comment on above: Performed By: #### R PRQ #### [facility] [address] [place] [address] Dr. Jerry Samuel ALT [Catalytic activity/Vol] 16 U/L Normal 14-59 [facility] Comment on above: Performed By: #### R PRQ #### [facility] [address] [place] [address] Dr. Jerry Samuel Anion gap [Moles/Vol] 8.5 mmol/L Normal [facility] Comment on above: Performed By: #### R PRQ #### [facility] [address] [place] [address] Dr. Jerry Samuel AST [Catalytic activity/Vol] 12 U/L Critically low 15-37 [facility] Comment on above: Performed By: #### R PRQ #### [facility] [address] [place] [address] Dr. Jerry Samuel Bilirubin [Mass/Vol] 0.3 mg/dL Normal 0.2-1.0 [facility] Comment on above: Performed By: #### R PRQ #### [facility] [address] [address] [address] Jerry Samuel Calcium [Mass/Vol] 9.2 mg/dL Normal 8.5-10.1 [facility] Comment on above: Performed By: #### R PRQ #### [facility] [address] [address] [address] Jerry Samuel Chloride [Moles/Vol] 105 mmol/L Normal 98-107 [facility] Comment on above: Performed By: #### R PRQ #### [facility] [address] [address] [address] Jerry Samuel CO2 [Moles/Vol] 25.0 mmol/L Normal 21.0-32.0 [facility] Comment on above: Performed By: #### R PRQ #### [facility] [address] [place] [address] Dr. Jerry Samuel Creatinine [Mass/Vol] 0.40 mg/dL Critically low 0.55-1.02 [facility] Comment on above: Performed By: #### R PRQ #### [facility] [address] [address] [address] Jerry Samuel EGFR-AF CAMBODIAN >60 Normal >=60 [facility] Comment on above: Performed By: #### R PRQ #### [facility] [address] [place] [address] Dr. Jerry Samuel EGFR-NON AF CAMBODIAN >60 Normal >=60 [facility] Comment on above: Performed By: #### R PRQ #### [facility] [address] [address] [address] Jerry Samuel Globulin (S) [Mass/Vol] 3.5 g/dL Normal [facility] Comment on above: Performed By: #### R PRQ #### [facility] [address] [address] [address] Jerry Samuel Glucose [Mass/Vol] 94 mg/dL Normal 74-106 [facility] Comment on above: Performed By: #### R PRQ #### [facility] [address] [place] [address] Dr. Jerry Samuel Potassium [Moles/Vol] 3.5 mmol/L Normal 3.5-5.1 [facility] Comment on above: Performed By: #### R PRQ #### [facility] [address] [address] [address] Jerry Samuel Protein [Mass/Vol] 6.9 g/dL Normal 6.4-8.[address] [facility] Comment on above: Performed By: #### R PRQ #### [facility] [address] [address] [address] Jerry Samuel Sodium [Moles/Vol] 135 mmol/L Critically low 136-145 [facility] Comment on above: Performed By: #### R PRQ #### [facility] [address] [place] [address] Dr. Jerry Samuel Urea nitrogen [Mass/Vol] 6.0 mg/dL Critically low 7.0-18.0 [facility] Comment on above: Performed By: #### R PRQ #### [facility] [address] [place] [address] Dr. Jerry Samuel Urea nitrogen/Creatinine [Mass ratio] 15.0 mg/mg Normal [facility] Comment on above: Performed By: #### R PRQ #### [facility] [address] [place] [address] Dr. Jerry BABIN TEST PT SEND OUTo n 05-02-2022 SENT TO REF LAB 05/02/2022 Normal [facility] Comment on above: Performed By: #### N BOX #### [facility] [address] [place] [address] Dr. Jerry Samuel HEP B SURFACE ANTIGEN SCREEN on 04-05-2022 HBsAg Screen Negative Normal Negative [facility] Comment on above: Performed By: #### N BOX #### [facility] [address] [place] [address] Dr. Jerry Samuel HEPATITIS C VIRUS AB W/ REFL EX QUANTon 04-05-2022 HCV AB <0.1 Normal 0.0-0.9 [facility] Comment on above: Performed By: #### H CVPCRR #### [facility] [address] [place] [address] Dr. Jerry Samuel Interpretation: Comment Normal [facility] Comment on above: Result Comment: Nega tive Not infected with HCV, unless recent infection is suspected or other evidence exists to indicate HCV infection. Performed By: #### H CVPCRR #### [facility] [address] [place] [address] Dr. Jerry Samuel HIV 1 AND 2 WITH REFLEXon HIV Screen 4th Generation wRfx Non-Reactive Normal Non Reactive [facility] Comment on above: Result Comment: HIV Negative HIV-1/HIV-2 antibodies and HIV-1 p24 antigen were NOT detected. There is no laboratory evidence of HIV infection. Performed By: #### R PRQ #### [facility] [address] [place] [address] Dr. Jerry Samuel RPR QUANTon 04-05-2022 Rapid Plasma Reagin, Quant Non-Reactive Normal NonRea<1:1 [facility] Comment on above: Result Comment: Plea se Note: This test does not meet current guidelines for screening and diagnosis of syphilis. This test is intended for following treatment response in patients being treated for syphilis infection. To screen for syphilis infection, a reflex cascade that includes both RPR and a treponema-specific assay should be utilized, such as Treponema pallidum (Syphilis) Screening [place] (108027) or Rapid Plasma Reagin (RPR) Test With Reflex to Quantitative RPR and Confirmatory Treponema pallidum Antibodies (007198). Performed By: #### R PRQ #### [facility] [address] [place] [address] Dr. Jerry Samuel RUBELLA AB IGGon 04-05-2022 Rubella Antibodies, IgG 1.97 index Normal Immune >0.99 [facility] Comment on above: Result Comment: Non- immune <0.90 Equivocal 0.90 - 0.99 Immune >0.99 Performed By: #### R UBIGG #### [facility] [address] [place] [address] Dr. Jerry Samuel CBC AUTO DIFFon 04-04-2022 BASO # 0.0 103/ul Normal 0.0-0.1 [facility] Comment on above: Performed By: #### R PRQ #### [facility] [address] [place] [address] Dr. Jerry Samuel Basophils/100 WBC (Bld) 0.3 % Normal 0.2-2.0 [facility] Comment on above: Performed By: #### R PRQ #### [facility] [address] [place] [address] Dr. Jerry Samuel EO # 0.1 103/ul Normal 0.0-0.7 [facility] Comment on above: Performed By: #### R PRQ #### [facility] [address] [place] [address] Dr. Jerry Samuel Eosinophils/100 WBC (Bld) 0.7 % Critically low 0.9-7.0 [facility] Comment on above: Performed By: #### R PRQ #### [facility] [address] [place] [address] Dr. Jerry Samuel Erythrocyte distribution width (RBC) [Ratio] 12.3 % Normal 11.0-15.0 [facility] Comment on above: Performed By: #### R PRQ #### [facility] [address] [place] [address] Dr. Jerry Samuel Hematocrit (Bld) [Volume fraction] 35.1 % Critically low 36.0-48.0 [facility] Comment on above: Performed By: #### R PRQ #### [facility] [address] [place] [address] Dr. Jerry Samuel Hemoglobin (Bld) [Mass/Vol] 11.8 g/dL Critically low 12.0-16.0 [facility] Comment on above: Performed By: #### R PRQ #### [facility] [address] [place] [address] Dr. Jerry Samuel IG # 0.02 10e3/ul Normal 0.00-0.03 [facility] Comment on above: Performed By: #### R PRQ #### [facility] [address] [place] [address] Dr. Jerry Samuel IG % 0.3 % Normal 0.0-0.5 [facility] Comment on above: Performed By: #### R PRQ #### [facility] [address] [place] [address] Dr. Jerry Samuel LYMPH # 2.0 103/ul Normal 1.2-3.8 [facility] Comment on above: Performed By: #### R PRQ #### [facility] [address] [place] [address] Dr. Jerry Samuel Lymphocytes/100 WBC (Bld) 26.7 % Normal 20.5-60.0 [facility] Comment on above: Performed By: #### R PRQ #### [facility] [address] [place] [address] Dr. Jeryr Samuel MANUAL DIFF REQ NO Normal [facility] Comment on above: Performed By: #### R PRQ #### [facility] [address] [place] [address] Dr. Jerry Samuel MCH (RBC) [Entitic mass] 29.0 pg Normal 26.7-34.0 [facility] Comment on above: Performed By: #### R PRQ #### [facility] [address] [place] [address] Dr. Jerry Samuel MCHC (RBC) [Mass/Vol] 33.6 g/dL Normal 29.9-35.2 [facility] Comment on above: Performed By: #### R PRQ #### [facility] [address] [place] [address] Dr. Jerry Samuel MCV (RBC) [Entitic vol] 86.2 fL Normal 81.0-99.0 [facility] Comment on above: Performed By: #### R PRQ #### [facility] [address] [place] [address] Dr. Jerry Samuel MONO # 0.5 103/ul Normal 0.3-0.8 [facility] Comment on above: Performed By: #### R PRQ #### [facility] [address] [place] [address] Dr. Jerry Samuel Monocytes/100 WBC (Bld) 6.7 % Normal 1.7-12.0 [facility] Comment on above: Performed By: #### R PRQ #### [facility] [address] [place] [address] Dr. Jerry Samuel NEUT # 4.9 103/ul Normal 1.4-6.5 [facility] Comment on above: Performed By: #### R PRQ #### [facility] [address] [address] [address] Jerry Samuel Neutrophils/100 WBC (Bld) 65.3 % Normal 43.0-75.0 [facility] Comment on above: Performed By: #### R PRQ #### [facility] [address] [place] [address] Dr. Jerry Samuel Platelet mean volume (Bld) [Entitic vol] 10.0 fL Normal 9.5-13.5 [facility] Comment on above: Performed By: #### R PRQ #### [facility] [address] [place] [address] Dr. Jerry Samuel PLT 218 103/ul Normal 150-450 [facility] Comment on above: Performed By: #### R PRQ #### [facility] [address] [place] [address] Dr. Jerry Samuel RBC 4.07 106/ul Critically low 4.20-5.40 [facility] Comment on above: Performed By: #### R PRQ #### [facility] [address] [place] [address] Dr. Jerry Samuel WBC 7.5 103/ul Normal 4.0-11.0 [facility] Comment on above: Performed By: #### R PRQ #### [facility] [address] [place] [address] Dr. Jerry Samuel CULTURE URINEon 04-04-2022 CULTURE URINE Culture Observations : NO GROWTH. Normal [facility] Comment on above: Performed By: #### N BOX #### [facility] [address] [place] [address] Dr. Jerry Samuel GLYCOHEMOGLOBIN A1Con 2021 ADA RECOMMENDATION SEE BELOW Normal [facility] Comment on above: Result Comment: ADA RECOMMENDED LIMIT 4.0 - 6.0 ADA THERAPEUTIC TARGET < 7.0 ACTION SUGGESTED > 7.0 Performed By: #### N BOX #### [facility] [address] [place] [address] Dr. Jerry Samuel Glucose [Mass/Vol] 97 mg/dL Normal [facility] Comment on above: Performed By: #### N BOX #### [facility] [address] [address] [address] Jerry Samuel HbA1c (Bld) [Mass fraction] 5.0 % Normal 4.5-6.2 [facility] Comment on above: Performed By: #### N BOX #### [facility] [address] [place] [address] Dr. Jerry Samuel TYPE AND SCREENon 04-04-2022 TYPE AND SCREEN Negative Normal [facility] Comment on above: Performed By: #### N BOX #### [facility] [address] [place] [address] Dr. Jerry Samuel US PREG TVon 04-04-2022 [...] EDITH WILLIS Date: 2022-04-04 16:13 Normal [facility] PREG QUANT HCGon 03-07-2022 HCG QUANT 2201 mIU/mL Normal [facility] Comment on above: Performed By: #### R PRQ #### [facility] [address] [place] [address] Dr. Jerry Samuel HCG RANGE SEE BELOW Normal [facility] Comment on above: Result Comment: 5-50 0.2-1 WEEK 50-500 1-2 WEEKS 100-5,000 2-3 WEEKS 500-10,000 3-4 WEEKS 1,000-50,000 4-5 WEEKS 10,000-100,000 5-6 WEEKS 15,000-200,000 6-8 WEEKS 10,000-100,000 2-3 MONTHS Performed By: #### R PRQ #### [facility] [address] [address] [address] Jerry Samuel PREG QUANT HCGon 03-05-2022 HCG QUANT 820 mIU/mL [facility] Comment on above: Performed By: #### R PRQ #### [facility] [address] [place] [address] Dr. Jerry Samuel HCG RANGE SEE BELOW [facility] Comment on above: Result Comment: 5-50 0.2-1 WEEK 50-500 1-2 WEEKS 100-5,000 2-3 WEEKS 500-10,000 3-4 WEEKS 1,000-50,000 4-5 WEEKS 10,000-100,000 5-6 WEEKS 15,000-200,000 6-8 WEEKS 10,000-100,000 2-3 MONTHS Performed By: #### R PRQ #### [facility] [address] [place] [address] Dr. Jerry Samuel PAP ACOG PANEL 2: 22 to 29on 02-21-2022 . . [facility] Comment on above: Performed By: #### R PRQ #### [facility] [address] [place] [address] Dr. Jerry Samuel Age Gdln ACOG Testing [facility] Comment on above: Performed By: #### R PRQ #### [facility] [address] [place] [address] Dr. Jerry Samuel DIAGNOSIS: Comment [facility] Comment on above: Result Comment: NEGA TIVE FOR INTRAEPITHELIAL LESION OR MALIGNANCY. SPECIMEN REPROCESSED FOR INTERPRETATION. Performed By: #### R PRQ #### [facility] [address] [place] [address] Dr. Jerry Samuel Methodology: Comment [facility] Comment on above: Result Comment: This liquid based ThinPrep(R) pap test was screened with the use of an image guided system. Performed By: #### R PRQ #### [facility] [address] [place] [address] Dr. Jerry Samuel Note: Comment Normal [facility] Comment on above: Result Comment: The Pap smear is a screening test designed to aid in the detection of premalignant and malignant conditions of the uterine cervix. It is not a diagnostic procedure and should not be used as the sole means of detecting cervical cancer. Both false-positive and false-negative reports do occur. . Performed By: #### R PRQ #### [facility] [address] [place] [address] Dr. Jerry Samuel Performed by: Comment Normal [facility] Comment on above: Result Comment: Anders Roman, Weaving Loom Operator (ASCP) Performed By: #### R PRQ #### [facility] [address] [place] [address] Dr. Jerry Samuel Reflex Criteria: Comment Normal [facility] Comment on above: Result Comment: The HPV DNA reflex criteria were not met with this specimen result therefore, no HPV testing was performed. . Performed By: #### R PRQ #### [facility] [address] [place] [address] Dr. Jerry Samuel Specimen adequacy: Comment Normal [facility] Comment on above: Result Comment: Sati sfactory for evaluation. Endocervical and/or squamous metaplastic cells (endocervical component) are present. Performed By: #### R PRQ #### [facility] [address] [place] [address] Dr. Jerry Samuel US PELVIS AND TRANSVAGon [...] EDITH WILLIS Date: 2022-02-13 14:34 Normal [facility] CBC AUTO DIFFon 02-12-2022 BASO # 0.0 103/ul Normal 0.0-0.1 [facility] Comment on above: Performed By: #### C BC #### [facility] [address] [place] [address] Dr. Jerry Samuel Basophils/100 WBC (Bld) 0.6 % Normal 0.2-2.0 [facility] Comment on above: Performed By: #### C BC #### [facility] [address] [place] [address] Dr. Jerry Samuel EO # 0.1 103/ul Normal 0.0-0.7 [facility] Comment on above: Performed By: #### C BC #### [facility] [address] [place] [address] Dr. Jerry Samuel Eosinophils/100 WBC (Bld) 1.2 % Normal 0.9-7.0 [facility] Comment on above: Performed By: #### C BC #### [facility] [address] [place] [address] Dr. Jerry Samuel Erythrocyte distribution width (RBC) [Ratio] 11.9 % Normal 11.0-15.0 [facility] Comment on above: Performed By: #### C BC #### [facility] [address] [place] [address] Dr. Jerry Samuel Hematocrit (Bld) [Volume fraction] 39.1 % Normal 36.0-48.0 [facility] Comment on above: Performed By: #### C BC #### [facility] [address] [place] [address] Dr. Jerry Samuel Hemoglobin (Bld) [Mass/Vol] 13.0 g/dL Normal 12.0-16.0 [facility] Comment on above: Performed By: #### C BC #### [facility] [address] [place] [address] Dr. Jerry Samuel IG # 0.01 10e3/ul Normal 0.00-0.03 [facility] Comment on above: Performed By: #### C BC #### [facility] [address] [place] [address] Dr. Jerry Samuel IG % 0.2 % Normal 0.0-0.5 [facility] Comment on above: Performed By: #### C BC #### [facility] [address] [place] [address] Dr. Jerry Samuel LYMPH # 2.4 103/ul Normal 1.2-3.8 [facility] Comment on above: Performed By: #### C BC #### [facility] [address] [place] [address] Dr. Jerry Samuel Lymphocytes/100 WBC (Bld) 37.7 % Normal 20.5-60.0 [facility] Comment on above: Performed By: #### C BC #### [facility] [address] [place] [address] Dr. Jerry Samuel MANUAL DIFF REQ NO Normal [facility] Comment on above: Performed By: #### C BC #### [facility] [address] [place] [address] Dr. Jerry Samuel MCH (RBC) [Entitic mass] 29.2 pg Normal 26.7-34.0 [facility] Comment on above: Performed By: #### C BC #### [facility] [address] [place] [address] Dr. Jerry Samuel MCHC (RBC) [Mass/Vol] 33.2 g/dL Normal 29.9-35.2 [facility] Comment on above: Performed By: #### C BC #### [facility] [address] [place] [address] Dr. Jerry Samuel MCV (RBC) [Entitic vol] 87.9 fL Normal 81.0-99.0 [facility] Comment on above: Performed By: #### C BC #### [facility] [address] [place] [address] Dr. Jerry Samuel MONO # 0.4 103/ul Normal 0.3-0.8 [facility] Comment on above: Performed By: #### C BC #### [facility] [address] [place] [address] Dr. Jerry Samuel Monocytes/100 WBC (Bld) 5.9 % Normal 1.7-12.0 [facility] Comment on above: Performed By: #### C BC #### [facility] [address] [place] [address] Dr. Jerry Samuel NEUT # 3.5 103/ul Normal 1.4-6.5 [facility] Comment on above: Performed By: #### C BC #### [facility] [address] [place] [address] Dr. Jerry Samuel Neutrophils/100 WBC (Bld) 54.4 % Normal 43.0-75.0 [facility] Comment on above: Performed By: #### C BC #### [facility] [address] [place] [address] Dr. Jerry Samuel Platelet mean volume (Bld) [Entitic vol] 9.9 fL Normal 9.5-13.5 [facility] Comment on above: Performed By: #### C BC #### [facility] [address] [place] [address] Dr. Jerry Samuel PLT 229 103/ul Normal 150-450 [facility] Comment on above: Performed By: #### C BC #### [facility] [address] [place] [address] Dr. Jerry Samuel RBC 4.45 106/ul Normal 4.20-5.40 [facility] Comment on above: Performed By: #### C BC #### [facility] [address] [place] [address] Dr. Jerry Samuel WBC 6.5 103/ul Normal 4.0-11.0 [facility] Comment on above: Performed By: #### C BC #### [facility] [address] [place] [address] Dr. Jerry Samuel FREE T4on 02-12-2022 Free T4 [Mass/Vol] 0.99 ng/dL Normal 0.76-1.46 [facility] Comment on above: Performed By: #### R PRQ #### [facility] [address] [place] [address] Dr. Jerry Samuel GLYCOHEMOGLOBIN A1Con 2021 ADA RECOMMENDATION SEE BELOW Normal [facility] Comment on above: Result Comment: ADA RECOMMENDED LIMIT 4.0 - 6.0 ADA THERAPEUTIC TARGET < 7.0 ACTION SUGGESTED > 7.0 Performed By: #### R PRQ #### [facility] [address] [address] [address] Jerry Samuel Glucose [Mass/Vol] 103 mg/dL Normal [facility] Comment on above: Performed By: #### R PRQ #### [facility] [address] [place] [address] Dr. Jerry Samuel HbA1c (Bld) [Mass fraction] 5.2 % Normal 4.5-6.2 [facility] Comment on above: Performed By: #### R PRQ #### [facility] [address] [address] [address] Jerry Samuel PROTIMEon 02-12-2022 INR Coag (PPP) [Relative time] 1.00 {INR} Normal [facility] Comment on above: Performed By: #### N BOX #### [facility] [address] [place] [address] Dr. Jerry Samuel INR GUIDELINES SEE BELOW Normal [facility] Comment on above: Result Comment: SACHA RED INR: 2.0 - 3.0 CONDITIONS NOT LISTED BELOW 2.5 - 3.5 FOR PROSTHETIC HEART VALVE REPLACEMENT 2.5 - 3.5 RECURRENT THROMBOSIS Performed By: #### N BOX #### [facility] [address] [place] [address] Dr. Jerry Samuel PT Coag (PPP) [Time] 10.8 s Normal 9.0-11.6 [facility] Comment on above: Performed By: #### N BOX #### [facility] [address] [place] [address] Dr. Jerry Samuel PTTon 02-12-2022 aPTT Coag (Bld) [Time] 27.8 s Normal 22.3-36.2 [facility] Comment on above: Performed By: #### N BOX #### [facility] [address] [address] [address] Jerry Samuel TSHon 02-12-2022 TSH 1.741 uIU/mL Normal 0.358-3.740 [facility] Comment on above: Performed By: #### T SH #### [facility] [address] [address] [address] Jerry Samuel Outside Recordson 11-20-2021 Outside Records [id number] TIFF [facility] Outside Recordson 11-16-2021 Outside Records [id number]#1.00OT GTIFF [facility] HCG,Urineon 02-22-2021 Beta HCG ( test) Ql (U) Negative Normal [facility] Comment on above: Result Comment: PERF ORMED BY: [place] [address] PATHOLOGIST WORKDAY MANAGER PRIYA WHITE M.D. Performed By: #### U HCG #### [address] 02-22-2021 L ---- Specimen: [id number] Received: 02/23/21 Status: DRE Elizabeth Num: [id number] Spec Type: Surgical Subm Dr: Edith Cagle Jr, DO Tissues: A Duodenum - Biopsy (DUODENUM BX) B Stomach - Biopsy/Polyp (ANTRUM BX) C Colon Biopsy (RANDOM COLON) Procedures: HE Stain/6, Gross/Micro L4/3 Patient Age/Sex Location Account Attending Physician Will Shay / [id number] Edith Cagle Jr, DO SPEC NUM: [id number] RECD: 02/23/21 STATUS: DRE ELIZABETH NUM: [id number] CASIMIRO: 02/22/21- SUBM DR: Edith Cagle Jr, DO ENTERED: 02/23/21 [facility] DR: ANITA TYPE: Surgical DEPT: S ENTERED BY: [id number] RECV BY: [id number] ORDERED: HE Stain/6, Gross/Micro L4/3 ORDERED: HE [...] in one cassette labeled B1. (SM/YJ) Specimen: [id number] Received: 02/23/21 Status: DRE Glenn Num: [id number] Spec Type: Surgical Subm Dr: Edith Cagle Jr, DO Tissues: A Duodenum - Biopsy (DUODENUM BX) B Stomach - Biopsy/Polyp (ANTRUM BX) C Colon Biopsy (RANDOM COLON) Procedures: HE Stain/6, Gross/Micro L4/3 Patient: Will Shay [id number] (Continued) Specimen: [id number] Received: 02/23/21 (Continued) Gross Description (Continued) Signed (signature on file) Gail Crockett MD 02/26/21 1601 Specimen: [id number] Received: 02/23/21 Status: DRE [place] Num: [id number] Spec Type: Surgical Subm Dr: Edith Cagle Jr, DO Tissues: A Duodenum - Biopsy (DUODENUM BX) B Stomach - Biopsy/Polyp (ANTRUM BX) C Colon Biopsy (RANDOM COLON) Procedures: HE Stain/6, Gross/Micro L4/3 Patient: Will Shay [id number] (Continued) Specimen: [id number] Received: 02/23/21 (Continued) Gross Description (Continued) C. Received in formalin labeled with the patient's name, number and random colon rule out microscopic colitis are 2 marsh tissue fragments, 0.3 cm and 0.9 cm. Entirely submitted in one cassette labeled C1. (SM/YJ) Microscopic Description A. Two glass slides with [...] characteristics were determined by the [facility] of [facility]. Immunohistochemistry assays have not been validated on decalcified tissue. Results should be interpreted with caution given the possibility of false negative results on decalcified specimens. They have not been cleared by the [place] Food and Drug Administration. The FDA has determined that such clearance or approval is not necessary. CPT Codes 71957?3, 35415 (more content not included)... Normal [facility] SARS-CoV-2 (COVID-19) RNA ELINOR+probe Ql (Unsp spec) Negative Normal Negative [facility] Comment on above: Order Comment: Healt hcare Worker?: N Result Comment: Testing for SARS-CoV-2 by RT-PCR This test was developed and its performance characteristics determined by [facility] [facility]) and validated at the [facility]. This test has not been [...] is terminated or revoked sooner. PERFORMED BY: [place] [id number] PATHOLOGIST WORKDAY MANAGER PRIYA WHITE M.D. Performed By: #### C OVID 19 [facility] #### [id number] [facility] Vital Signs Date Time Vital Sign Value Performing Clinician Facility 02-09-2024 16:03-0500 Body mass index (BMI) [Ratio] 30.11 kg/m2 EddieZigmo DO Work Phone: [facility] 02-09-2024 16:03-0500 Body weight 89.81 kg Eddie Nova DO Work Phone: [facility] 02-09-2024 16:03-0500 Diastolic blood pressure 70 mm[Hg] Eddie Nova DO Work Phone: [facility] 02-09-2024 16:03-0500 Systolic blood pressure 118 mm[Hg] Eddie Nova DO Work Phone: [facility] 01-07-2024 15:50-0400 Body mass index (BMI) [Ratio] 29.97 kg/m2 Eddie Nova DO Work Phone: [facility] 01-07-2024 15:50-0400 Body weight 89.41 kg Eddie Nova DO Work Phone: [facility] 01-07-2024 15:50-0400 Diastolic blood pressure 72 mm[Hg] Eddie Nova DO Work Phone: [facility] 01-07-2024 15:50-0400 Systolic blood pressure 106 mm[Hg] Eddie Nova DO Work Phone: [facility] 03-26-2023 13:45-0500 Body height 164.47 cm Ben Rose Other [facility] Other 03-26-2023 13:45-0500 Body mass index (BMI) [Ratio] 29.6 kg/m2 Ben Rose Other [facility] Other 03-26-2023 13:45-0500 Body weight 80.06 kg Ben Rose Other [facility] Other 03-26-2023 13:45-0500 Diastolic blood pressure 74 mm[Hg] Ben Dirigobertoy Other [facility] Other 03-26-2023 13:45-0500 Systolic blood pressure 120 mm[Hg] Ben Dirigobertoy Other [facility] Other 06-14-2022 17:07-0500 Body weight 79.[address] EDDIE BHATT . [facility] Comment on above: Performed By: #### RPRQ #### [facility] [address] [place] [address] Dr. Jerry Samuel 03-08-2022 11:15-0500 Body height 164.47 cm Ben Rose Other [facility] Other 03-08-2022 11:15-0500 Body mass index (BMI) [Ratio] 29.01 kg/m2 Ben Rose Other [facility] Other 03-08-2022 11:15-0500 Body weight 78.47 kg Ben Rose Other [facility] Other 03-08-2022 11:15-0500 Diastolic blood pressure 73 mm[Hg] Ben Rose Other [facility] Other 03-08-2022 11:15-0500 Systolic blood pressure 113 mm[Hg] Ben Rose Other [facility] Other Encounters Encounter Date Encounter Type Care Provider Facility Start: 02-09-2024 End: 02-09-2024 Patient encounter procedure Eddie Nova DO Work Phone: [facility] Start: 02-09-2024 End: 02-09-2024 flow sheet Eddie Nova DO Work Phone: [facility] Comment on above: Second trimester pre gnancy; 17 weeks gestation of ; Well woman exam with routine gynecological exam; Exposure to STD; MSAFP (maternal serum alpha-fetoprotein) decreased; Screening, , for anatomic survey Start: 02-09-2024 End: 02-09-2024 ambulatory EDDIE NOVA Not Available Start: 02-09-2024 End: 02-09-2024 Bamboo flowsheet Eddie Nova DO Work Phone: [facility] Start: 02-09-2024 End: 02-11-2024 Bamboo flowsheet Eddie Nova DO Work Phone: [facility] Start: 02-09-2024 End: 02-11-2024 External Result Encounter Kirsty RAHMAN Work Phone: [facility] Unsolicited Start: 01-08-2024 End: 01-08-2024 Clinisync Result Encounter Eddie Nova DO Work Phone: [facility] Unsolicited Start: 01-08-2024 End: 01-08-2024 Clinisync Result Encounter Eddie Nova DO Work Phone: [facility] External Department Unsolicited Start: 01-07-2024 End: 01-07-2024 flow sheet Eddie Nova DO Work Phone: [facility] Comment on above: First trimester preg baldev; 12 weeks gestation of ; Nausea and vomiting during ; Dizziness; Constipation during in first trimester Start: 01-07-2024 End: 01-07-2024 ambulatory EDDIE NOVA Not Available Start: 01-07-2024 End: 01-07-2024 Bamboo flowsheet Eddie Nova DO Work Phone: [facility] Start: 01-07-2024 End: 01-07-2024 Bamboo flowsheet Eddie Nova DO Work Phone: [facility] Start: 12-17-2023 End: 12-17-2023 ambulatory KIRSTY SIU Not Available Start: 12-12-2023 End: 12-12-2023 ambulatory EDDIE NOVA Not Available Start: 03-27-2023 End: 03-27-2023 ambulatory GENTRY KIM Not Available Start: 03-26-2023 End: 03-26-2023 ambulatory Ben Rose Other [facility] Other Start: 03-26-2023 Patient encounter procedure Ben FLORES [facility] Start: 03-05-2023 End: 03-05-2023 ambulatory EDDIE NOVA Not Available Start: 01-24-2023 End: 01-24-2023 ambulatory Ben Rose Other [facility] Other Start: 01-24-2023 Telephone encounter Ben FORD G [facility] Start: 07-25-2022 End: 07-26-[address] EDDIE BHATT . Facility: Start: 07-02-2022 End: 07-03-[address] EDDIE BHATT . Facility:[facility] Start: 06-12-2022 End: 06-13-[address] EDDIE BHATT . Facility:[facility] Start: 06-04-2022 End: 06-04-[address] EDDIE BHATT . Facility:[facility] Start: 05-26-2022 End: 05-26-2022 ambulatory NNAMDI CASTLE . Facility:[facility] Start: 05-02-2022 End: 05-03-[address] EDDIE BHATT . Facility:[facility] Start: 04-19-2022 End: 04-20-2022 ambulatory KIRSTY SHERRON . Facility:[facility] Start: 04-04-2022 End: 04-05-[address] EDDIE BHATT . Facility:[facility] Start: 04-04-2022 End: 04-05-2022 ambulatory ANGELES MIKAEL Facility:[facility] Start: 03-08-2022 End: 03-08-2022 ambulatory Ben Rose Other [facility] Other Start: 03-08-2022 Patient encounter procedure Ben Rose [facility] Start: 03-07-2022 End: 03-08-[address] EDDIE BHATT . Facility: Start: 03-05-2022 End: 03-06-2022 ambulatory ANGELES MIKAEL Facility: Start: 02-13-2022 End: 02-14-2022 ambulatory ANGELES MIKAEL Facility: Start: 02-12-2022 End: 02-12-2022 ambulatory ANGELES MIKAEL Facility:[facility] Start: 02-12-2022 End: 02-13-2022 ambulatory ANGELES MIKAEL Facility:[facility] Start: 11-12-2021 End: 11-20-2021 ambulatory ANGELES MIKAEL Facility:[facility] Start: 11-06-2021 End: 11-06-2021 ambulatory Angeles A Mikael [employer]HOUSE [employer]ER[employer] Facility: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 Facility:[facility] Procedures Date Procedure Procedure Detail Performing Clinician Start: 02-09-2024 Urnls dip stick/tabl et rgnt non-auto w/o micrscp Eddie Bhatt DO Work Phone: Start: 02-09-2024 RECURRENT VAGINITIS (HTRX) Kirsty Siu PA Work Phone: Start: 01-08-2024 ALL CBC WITH AUTO DIFF Eddie Rodriguezzio DO Work Phone: Start: 01-07-2024 Urnls dip stick/tabl et rgnt non-auto w/o micrscp Eddie Bhatt DO Work Phone: Plan of Treatment Date Care Activity Detail Author Start: 03-10-2024 End: 03-10-2024 Alpha fetoprotein, maternal Alpha fetoprotein, maternal Lab Routine MSAFP (maternal serum alpha-fetoprotein) decreased Expected: 03/10/2024 (Approximate), Expires: 03/10/2024 [facility] Comment on above: Expected: 03/10/2024 (Approximate), Expires: 03/10/2024 Start: 03-08-2024 End: 03-08-2024 Patient encounter procedure 03/08/2024 3:50 PM EST Routine [facility] [address] [place] [address] Eddie Bhatt, DO [address] [place], [place] [id number] [facility] Start: 03-01-2024 End: 03-01-2024 Professional / ancillary services management 03/01/2024 1:30 PM EST Ancillary Procedure [facility] [address] [place] [id number] [facility] Start: 02-09-2024 End: 02-09-2024 Patient encounter procedure [facility] Comment on above: Arrived Start: 02-09-2024 End: 02-08-2025 US for US OB ANATOMY SINGLE W US OB CERVICAL LENGTH Imaging Routine Screening, , for anatomic survey Expected: 02/09/2024 (Approximate), Expires: 02/08/2025 [facility] Comment on above: Expected: 02/09/2024 (Approximate), Expires: 02/08/2025 Start: 01-07-2024 End: 01-07-2024 Patient encounter procedure 01/07/2024 3:10 PM EDT Routine [facility] [address] [place] [place] [address] Eddie Bhatt, DO [address] [place] [address] Arrived [facility] Comment on above: Arrived CBC W Auto Different ial panel - Blood CBC and differential Lab Routine Nausea and vomiting during Dizziness Ordered: 01/07/2024 [facility] Work Phone: Comment on above: Ordered: 01/07/2024 CHLAMYDIA TRACHOMATI S (GENITO/STI) CHLAMYDIA TRACHOMATIS (GENITO/STI) Lab Routine Exposure to STD Ordered: 02/09/2024 [facility] Comment on above: Ordered: 02/09/2024 Neisseria gonorrhoea e DNA [Presence] in Unspecified specimen by ELINOR with probe detection Neisseria gonorrhea DNA probe, direct Lab Routine Exposure to STD Ordered: 02/09/2024 [facility] Comment on above: Ordered: 02/09/2024 SURESWAB(R) ADVANCED VAGINITIS PLUS, TMA SURESWAB(R) ADVANCED VAGINITIS PLUS, TMA Pathology and Cytology Routine Exposure to STD Ordered: 02/09/2024 [facility] Work Phone: Comment on above: Ordered: 02/09/2024 Immunizations Immunization Date Immunization Notes Care Provider Michael albright 11-08-2014 human papilloma viru s vaccine, quadrivalent Ben Rose Other [facility] Other Payers Date Payer Category Payer [facility] BCBS [id number] 2022 Unknown BCBS BCBS [id number] 2022-Present [phone] [address] [place] [id number] 2022 Unknown [id number] 2021 Unknown [id number] 1996 Unknown [id number] 2.16.840.1.524480.3.579.2.71 8 1996 Unknown [id number] 2.16.840.1.311435.3.579.2.71 8 1996 Unknown [id number] 2.16.840.1.767169.3.579.2.59 3 1996 Unknown [id number] 2.16.840.1.686582.3.579.2.59 3 1996 Unknown [id number] 2.16.840.1.011820.3.579.2.59 3 1996 Unknown [id number] 2.16.840.1.746145.3.579.2.59 3 1996 Unknown [id number] 2.16.840.1.670895.3.579.2.59 3 1996 Unknown [id number] 2.16.840.1.318372.3.579.2.59 3 1996 Unknown [id number] 2.16.840.1.086346.3.579.2.59 3 1996 Unknown [id number] 2.16.840.1.541103.3.579.2.59 3 1996 Unknown [id number] 2.16.840.1.726260.3.579.2.59 3 1996 Unknown [id number] 2.16.840.1.512854.3.579.2.59 3 1996 Unknown [id number] 2.16.840.1.518380.3.579.2.59 3 1996 Unknown [id number] 2.16.840.1.762564.3.579.2.59 3 1996 Unknown [id number] 2.16.840.1.201680.3.579.2.59 3 1996 Unknown [id number] 2.16.840.1.459012.3.579.2.59 3 1996 Unknown [id number] 2.16.840.1.355690.3.579.2.59 3 1996 Unknown [id number] 2.16.840.1.905533.3.579.2.12 59 1996 Unknown [id number] 2.16.840.1.595588.3.579.2.12 59 1996 Unknown [id number] 2.16.840.1.029091.3.579.2.12 59 1996 Unknown [id number] 2.16.840.1.584020.3.579.2.12 59 1995 Unknown [id number] 1995 Unknown [id number] 1959 Self-pay 1959 Unknown [id number] 1959 Unknown [id number] 1959 Unknown [id number] 1959 Unknown [id number] Unknown [id number] Social History Date Type Detail Facility Unknown if ever smoked [facility] [employer] Other Start: 03-27-2023 Sex Assigned At N [facility] [employer] Other Start: 09-17-2022 [facility] Start: 09-17-2022 Tobacco use and exposure Smokeless tobacco non-user [facility] Start: 12-17-2023 End: 01-07-2024 Alcoholic beverage intake Lifetime non-drinker (finding) [facility] Start: 03-27-2023 History of Social function [facility] Start: 10-27-2023 [facility] Start: 1995 Sex assigned at Not on file [facility] History of Present illness Narrative 02-09-2024 Leahjose f RamanYANIQUE - 02/09/2024 3:10 PM EST Note Date & Type Note Facility 02-09-2024 History of Presen t illness Narrative Reason for Appointment: Patient ID: Will Shay is a 28 y.o. female who presents for Routine Visit Patient presents today for Return OB appointment. MEDICATIONS Current Outpatient Medications Medication Instructions azithromycin (Zithromax Z-Fredrick) 250 MG tablet Take as directed citalopram (CELEXA) 20 mg, Oral, Every morning docusate sodium (COLACE) 100 mg, Oral, 2 times daily PRN methylPREDNISolone (Medrol Dospak) 4 MG tablets As directed metoclopramide (REGLAN) 10 mg, Oral, 3 times daily before meals, Take 1 tablet by mouth 30 minutes prior to meals 3 times daily as needed for nausea. Misc. Devices (Medela Double Breast Pump) misc 1 Device, Does not apply, As needed omeprazole (PRILOSEC) 20 mg, Oral, Daily before breakfast, Do not crush or chew. ondansetron ODT (ZOFRAN-ODT) 4 mg, Oral, Every 6 hours PRN promethazine (PHENERGAN) 12.5 mg, Oral, Every 6 hours PRN, Take 1 tablet by mouth every 6 hours as needed for nausea. 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 Subcutaneous nodule 09/13/2022 Tinea pedis 09/13/2022 Resolved Ambulatory Problems Diagnosis Date Noted No Resolved Ambulatory Problems Past Medical History: Diagnosis Date Depression ([facility]) HISTORY PAST MEDICAL HISTORY SOCIAL HISTORY Past Medical History: Diagnosis Date Anxiety Depression ([facility]) Social History Tobacco Use Smoking status: Never Smokeless tobacco: Never Substance Use Topics Alcohol use: Never Drug use: Never FAMILY HISTORY Family History Problem Relation Name Age of Onset Mental illness Mother Melanoma Neg Hx SURGICAL HISTORY Past Surgical History: Procedure Laterality Date SECTION, LOW TRANSVERSE 11/08/2022 MOUTH SURGERY REVIEW OF SYSTEMS Review of Systems: Review of Systems All other systems reviewed and are negative. OBJECTIVE Objective: Physical Exam Constitutional: Appearance: Normal appearance. She is well-developed. Genitourinary: Right Adnexa: not tender and no mass present. Left Adnexa: not tender and no mass present. No cervical discharge. Breasts: Breasts are soft. Right: Normal. Left: Normal. HENT: Head: Normocephalic. Nose: Nose normal. Mouth/Throat: Mouth: Mucous membranes are moist. Cardiovascular: Rate and Rhythm: Normal rate and regular rhythm. Pulmonary: Effort: Pulmonary effort is normal. Breath sounds: Normal breath sounds. Abdominal: General: Bowel sounds are normal. There is no distension. Palpations: Abdomen is soft. Tenderness: There is no abdominal tenderness. There is no guarding or rebound. Musculoskeletal: General: No swelling. Normal range of motion. Cervical back: Normal range of motion. Right lower leg: No edema. Left lower leg: No edema. Neurological: General: No focal deficit present. Mental Status: She is alert and oriented to person, place, and time. Skin: General: Skin is warm and dry. Psychiatric: Mood and Affect: Mood normal. Behavior: Behavior normal. Vitals and nursing note reviewed. Exam conducted with a pump service supervisor present. Vitals: Estimated body mass index is 29.97 kg/m as calculated from the following: Height as of 12/25/22: 5' 8 . Weight as of 01/07/24: 197 lb 1.9 oz. BP: Patient's last menstrual period was 10/13/2023. ASSESSMENT & PLAN ICD-10-CM 1. Second trimester Z34.92 POCT urinalysis dipstick manually resulted 2. 17 weeks gestation of Z3A.17 3. Well woman exam with routine gynecological exam Z01.419 Pap Smear 4. Exposure to STD Z20.2 SURESWAB(R) ADVANCED VAGINITIS PLUS, TMA CHLAMYDIA TRACHOMATIS (GENITO/STI) Neisseria gonorrhea DNA probe, direct 5. MSAFP (maternal serum alpha-fetoprotein) decreased O28.0 Alpha fetoprotein, maternal Alpha fetoprotein, maternal 6. Screening, , for anatomic survey Z36.89 US OB ANATOMY SINGLE W US OB CERVICAL LENGTH Return OB/Annual Exam: Patient presents today for CX'S/routine obstetrics appointment. Patient is currently 17w0d . Patient is doing well and states she has no complaints. Cultures was obtained without difficulty and patient was given msAFP and US anatomy order to have obtained. Orders Placed This Encounter Procedures US OB ANATOMY SINGLE W US OB CERVICAL LENGTH CHLAMYDIA TRACHOMATIS (GENITO/STI) Neisseria gonorrhea DNA probe, direct Alpha fetoprotein, maternal POCT urinalysis dipstick manually resulted Follow Up: Patient is to return to our office in 4 weeks for routine OB appointment Documented by Vicky Leyva LPN on behalf of: Kirsty Rico documented in this encounter [facility] History of Present illness Narrative 01-07-2024 Carmen Foster LPN - 01/07/2024 3:10 PM EDT Note Date & Type Note Facility 01-07-2024 History of Presen t illness Narrative Reason for Appointment: Patient ID: Will Shay is a 28 y.o. female who presents for Routine Visit Patient presents today for Return OB appointment. MEDICATIONS Current Outpatient Medications Medication Instructions azithromycin (Zithromax Z-Fredrick) 250 MG tablet Take as directed citalopram (CELEXA) 20 mg, Oral, Every morning esomeprazole (NexIUM) [address] capsule TAKE ONE CAPSULE BY MOUTH ONCE DAILY FOR 30 DAYS methylPREDNISolone (Medrol Dospak) 4 MG tablets As directed metoclopramide (REGLAN) 10 mg, Oral, 3 times daily before meals, Take 1 tablet by mouth 30 minutes prior to meals 3 times daily as needed for nausea. Misc. Devices (Medela Double Breast Pump) misc 1 Device, Does not apply, As needed promethazine (PHENERGAN) 12.5 mg, Oral, Every 6 hours PRN, Take 1 tablet by mouth every 6 hours as needed for nausea. 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 Subcutaneous nodule 09/13/2022 Tinea pedis 09/13/2022 Resolved Ambulatory Problems Diagnosis Date Noted No Resolved Ambulatory Problems Past Medical History: Diagnosis Date Depression ([facility]) HISTORY PAST MEDICAL HISTORY SOCIAL HISTORY Past Medical History: Diagnosis Date Anxiety Depression ([facility]) Social History Tobacco Use Smoking status: Never Smokeless tobacco: Never Substance Use Topics Alcohol use: Never Drug use: Never FAMILY HISTORY Family History Problem Relation Name Age of Onset Mental illness Mother Melanoma Neg Hx SURGICAL HISTORY Past Surgical History: Procedure Laterality Date SECTION, LOW TRANSVERSE 11/08/2022 MOUTH SURGERY REVIEW OF SYSTEMS Review of Systems: Review of Systems Constitutional: Negative. HENT: Negative. Eyes: Negative. Respiratory: Negative. Cardiovascular: Negative. Gastrointestinal: Negative. Genitourinary: Negative. Musculoskeletal: Negative. Skin: Negative. Neurological: Negative. All other systems reviewed and are negative. Hematological: Negative. Endocrine: Negative. Allergic/Immunologic: Negative. OBJECTIVE Objective: Physical Exam Constitutional: Appearance: Normal appearance. She is well-developed. Cardiovascular: Rate and Rhythm: Normal rate and regular rhythm. Pulmonary: Effort: Pulmonary effort is normal. Breath sounds: Normal breath sounds. Abdominal: General: Bowel sounds are normal. There is no distension. Palpations: Abdomen is soft. Tenderness: There is no abdominal tenderness. There is no guarding or rebound. Musculoskeletal: General: No swelling. Normal range of motion. Right lower leg: No edema. Left lower leg: No edema. Neurological: Mental Status: She is alert and oriented to person, place, and time. Skin: General: Skin is warm and dry. Psychiatric: Mood and Affect: Mood normal. Behavior: Behavior normal. Vitals and nursing note reviewed. Exam conducted with a pump service supervisor present. Vitals: Estimated body mass index is 29.97 kg/m as calculated from the following: Height as of 12/25/22: 5' 8 . Weight as of this encounter: 197 lb 1.9 oz. BP: 106/72 Patient's last menstrual period was 10/13/2023. ASSESSMENT & PLAN ICD-10-CM 1. First trimester Z34.91 Urine dip 2. 12 weeks gestation of Z3A.12 Urine dip New OB: Patient presents today for 1st time obstetrics appointment with provider. Patient is currently 12w2d . Patients history has been reviewed in great detail including any potential risks. Patient stated she currently has complaints of nausea and vomiting and vertigo. Given order for CBC- Expectations throughout regarding labs, ultrasounds, and appointments have been discussed with the patient in detail. It was reiterated that the patient is to drink 6-8 glasses of water a day, eat 6 small meals a day, do not consume raw or undercooked meat, and stay away from [facility]. Patient has been consulted regarding any further do's and don'ts of . Patient voiced understanding and all questions and concerns were answered. Orders Placed This Encounter Procedures Urine dip Follow Up: Patient is to return in 4 weeks for routine OB appointment. Documented by Carmen Foster LPN on behalf of: Kirsty Siu PA-C documented in this encounter [facility] Evaluation note 03-26-2023 Note Date & Type [...] call office if she has no improvement [facility] Other Evaluation note 01-24-2023 Note Date & Type Note Facility 01-24-2023 Evaluation note Encounter Date Diagnosis Assessment Notes Jan, Epigastric burning sensation (ICD-10 - R10.13) [facility] Other Evaluation note 03-08-2022 Note Date & [...] DAILY CONTINUE LEVSIN NEEDED RTO 1 YR [facility] Other Evaluation note Note Date & Type Note Facility Evaluation note Diagnosis First trimester state, incidental 12 weeks gestation of Nausea and vomiting during Dizziness Dizziness and giddiness Constipation during in first trimester documented in this encounter [facility] Evaluation note Note Date & Type Note Facility Evaluation note Diagnosis Second trimester state, incidental 17 weeks gestation of Well woman exam with routine gynecological exam Routine gynecological examination Exposure to STD MSAFP (maternal serum alpha-fetoprotein) decreased Abnormal findings on screening Screening, , for anatomic survey Encounter for anatomic survey documented in this encounter [facility] History general Narrative - Reported Note Date & Type Note Facility History general Narrative - Reported Type Medical History scoliosis Medical History hx of mono Surgical History [place] teeth x4 [facility] [employer] Other History general Narrative - Reported Note Date & Type Note Facility History general Narrative - Reported Type Medical History scoliosis Medical History hx of mono Surgical History [place] teeth x4 Surgical History C section [facility] [employer] Other Summary Purpose Family History No Family History Records FoundNo Family History Records FoundNo Family History Records FoundNo Family History Records Found Advance Directives No Advanced Directives Records FoundNo Advanced Directives Records FoundNo Advanced Directives Records FoundNo Advanced Directives Records Found Additional Source Comments INFORMATION SOURCE (unrecogn ized section and content) DATE CREATED AUTHOR 02/27/2021 [facility] DATE CREATED AUTHOR AUTHOR'S ORGANIZ ATION 07/24/2022 [facility] DATE CREATED AUTHOR AUTHOR'S ORGANIZ ATION 08/08/2022 [facility] DATE CREATED AUTHOR AUTHOR'S ORGANIZ ATION 02/10/2024 [facility] EPIC REASON FOR VISIT (unrecogniz ed section and content) Reason Comments Routine Visit FOR RECORDS PERTAINING TO PATIENTS WHO ARE [...] BE BASED ON THE PRIMARY CLINICAL RECORDS. [employer] provides no warranty or guarantee of the accuracy or completeness of information in this document.
[2024-02-20 01:08] LABS: AFP Value 27.2 ng/mL (.); Gest. Age on Collection Date 18.3 weeks (.); Insulin Dep Diabetes No (.); Maternal Age At EDD 27.7 yr (.); OSBR Risk 1 IN 10000 (.); Results Report (.)
== END 2024-02-18 12:39 | disposition home or self-care (01) ==
LOC: LAB 12:42
PROVIDERS: PCP Nurse Practitioner Family; Visit Provider Obstetrics & Gynecology
DX: O28.0 Abnormal hematological finding on antenatal screening of mother (principal)
CPT/HCPCS: 36415; 82105

== ENCOUNTER 2024-03-01 13:26 | Outpatient (OUT) | payer BC, SELFPAY ==
--- NOTE | 2024-03-01 13:27 | US_ITS ---
[address] [address] Patient Name: CARLOS ADAMS MRN: [id number] date: 1995 Sex: F Assigned Patient Location: [facility] Current Patient Location: Accession/Order Number: [id number] Exam Date: 03/01/2024 13:45 Report Date: 03/02/2024 06:27 At the request of: EDDIE VALIENTE Procedure: US OB anatomy EXAMINATION: US OB anatomy, US OB cervical length HISTORY: ANATOMY COMPARISON: No relevant comparison available. TECHNIQUE: Transabdominal sonographic examination was performed for obstetrical and evaluation. FINDINGS: Number: 1 Heart Rate: 136 bpm Amniotic Fluid Volume: Subjectively normal Placental Location: ANTERIOR with lower margin 7.3 cm from os. Cervix Length: 4.43 cm ; closed. ANATOMY: Normal Structures -cerebellum, choroid plexus, cisterna magna, lateral cerebral ventricles, orbits, midline falx, hard palate, four-chamber heart, RVOT, LVOT, stomach, kidneys, bladder, umbilical cord insertion into abdomen, three-vessel cord, cervical spine, thoracic spine, lumbar spine, sacral spine, right upper extremity, left upper extremity, right lower extremity, left lower extremity. SUBOPTIMALLY SEEN: None ABNORMALITIES: None BIOMETRY: BPD: 4.85 cm; 20 weeks 5 days; 85.30 % HC: 17.74 cm; 20 weeks 2 days; 66.20 % AC: 15.32 cm; 20 weeks 4 days; 71.50 % FL: 3.72 cm; 21 weeks 6 days; 96.30 % EFW:366.45 g; 97 % FL/AC: 24.28 FL/BPD: 76.70 HC/AC: 1.16 GESTATIONAL AGE: Age by EDC: 19 weeks 5 days Age by current US: 20 weeks 6 days ROLANDO by current US: 2024-07-13 ROLANDO by EDC: 2024-07-21 US/US OB anatomy IMPRESSION: 1. Single live intrauterine with growth detailed above. Electronically authenticated by: ABRIL SCNALON Date: 03/02/2024 06:27
--- NOTE | 2024-03-01 13:27 | US_ITS ---
[address] [address] Patient Name: CARLOS ADAMS MRN: [id number] date: 1995 Sex: F Assigned Patient Location: [facility] Current Patient Location: Accession/Order Number: [id number] Exam Date: 03/01/2024 13:45 Report Date: 03/02/2024 06:27 At the request of: EDDIE VALIENTE Procedure: US OB cervical length EXAMINATION: US OB anatomy, US OB cervical length HISTORY: ANATOMY COMPARISON: No relevant comparison available. TECHNIQUE: Transabdominal sonographic examination was performed for obstetrical and evaluation. FINDINGS: Number: 1 Heart Rate: 136 bpm Amniotic Fluid Volume: Subjectively normal Placental Location: ANTERIOR with lower margin 7.3 cm from os. Cervix Length: 4.43 cm ; closed. ANATOMY: Normal Structures -cerebellum, choroid plexus, cisterna magna, lateral cerebral ventricles, orbits, midline falx, hard palate, four-chamber heart, RVOT, LVOT, stomach, kidneys, bladder, umbilical cord insertion into abdomen, three-vessel cord, cervical spine, thoracic spine, lumbar spine, sacral spine, right upper extremity, left upper extremity, right lower extremity, left lower extremity. SUBOPTIMALLY SEEN: None ABNORMALITIES: None BIOMETRY: BPD: 4.85 cm; 20 weeks 5 days; 85.30 % HC: 17.74 cm; 20 weeks 2 days; 66.20 % AC: 15.32 cm; 20 weeks 4 days; 71.50 % FL: 3.72 cm; 21 weeks 6 days; 96.30 % EFW:366.45 g; 97 % FL/AC: 24.28 FL/BPD: 76.70 HC/AC: 1.16 GESTATIONAL AGE: Age by EDC: 19 weeks 5 days Age by current US: 20 weeks 6 days ROLANDO by current US: 2024-07-13 ROLANDO by EDC: 2024-07-21 US/US OB cervical length IMPRESSION: 1. Single live intrauterine with growth detailed above. Electronically authenticated by: ABRIL SCANLON Date: 03/02/2024 06:27
--- OUTSIDE RECORDS SUMMARY | 2024-03-01 13:49 | XMS_ITS | CCD ---
Author Organization [facility] Care Team Providers Care Human Capital Consultant Name Role Phone Ben Rose Unavailable Mikael WOODYARD OPERATOR-C, [place] A Admitting Unavailable Mikael WOODYARD OPERATOR-C, [place] A Attending Unavailable Mikael WOODYARD OPERATOR-C, [place] A Primary Care Unavailable Mikael WOODYARD OPERATOR-C, [place] A Attending Unavailable Mikael WOODYARD OPERATOR-C, [place] A Primary Care Unavailable NOVA ., [...] (3 sources) Penicillin G Drug Allergy Unknown [employer] Other (1 source) busPIRone; Translations: [buspirone hcl] Drug Allergy [facility] Repository (1 source) Coconut extract; Translations: [coconut] Drug Allergy [facility] Repository (10 sources) Penicillins; Translations: [penicillins] Propensity to adverse reactions to drug (disorder) 3 Rash [facility] Repository (1 source) Amoxicillin Drug Allergy [facility] Repository (1 source) Penicillin Drug Allergy [facility] Repository (9 sources) busPIRone Drug Allergy 3 [facility] Work Phone: (9 sources) Minocycline Drug Allergy 3 Hives [facility] Medications Current Medications Medication Drug Class(es) Dates Sig (Normalized) Sig (Original) azithromycin 250 mg oral tablet (9 sources) Macrolide Antimicrobial Start: 3 azithromycin (Zithromax Z-Fredrick) 250 MG tablet Indications: COVID-19 Take as directed 6 tablet 03/27/2023 Active 24 hr buPROPion hydrochloride 150 mg extended release oral tablet (1 source) Aminoketone Start: 4 End: 5 take 1 tablet by mouth once daily buPROPion XL (Wellbutrin XL) 150 MG 24 hr tablet Indications: Anxiety, generalized (CMS/HCC) Take 1 tablet (150 mg) by mouth Daily Do not crush, chew, or split. 30 tablet 11 02/18/2024 02/17/2025 Active Cetirizine (2 sources) Histamine-1 Receptor Antagonist ZyrTEC Allergy Activ e citalopram 20 mg oral tablet (9 sources) Serotonin Reuptake Inhibitor Start: 4 End: 5 take 1 tablet by mouth in the morning citalopram (CeleXA) 20 MG tablet Indications: Anxiety, generalized (CMS/HCC) Take 1 tablet (20 mg) by mouth in the morning. 30 tablet 11 12/15/2023 12/14/2024 Active docusate sodium 100 mg oral capsule (8 sources) Start: 4 End: 5 take 1 [...] tablet Orally Once a day Active methylPREDNISolone (9 sources) Corticosteroid Start: 3 methylPREDNISolone (Medrol Dospak) [...] omeprazole 20 mg delayed release oral capsule (5 sources) Proton Pump Inhibitor Start: 4 End: 4 take 1 capsule by mouth before mealtime omeprazole (PriLOSEC) [address] capsule Indications: Gastroesophageal Reflux Disease , Heartburn Take 1 capsule (20 mg) by mouth in the morning. Take before meals. Do not crush or chew.. 30 capsule 11 02/02/2024 03/03/2024 Active pantoprazole 40 mg delayed release oral tablet (7 sources) Proton Pump Inhibitor Start: 1 take 1 tablet by mouth every twenty-four hours Pantoprazole Sodium 40 MG 1 tablet Orally Once a day for 30 days Feb, Active Probiotic (3 sources) Probiotic EVERY OTHER MONTH Active promethazine hydrochloride 12.5 mg oral tablet (9 sources) Phenothiazine Start: take 1 tablet by mouth every six [...] needed for nausea. 30 tablet 11/24/2023 Active Completed/Discontinued Medications Medication Drug Class(es) Dates Sig (Normalized) Sig (Original) ondansetron 4 mg disintegrating oral tablet (5 sources) Serotonin-3 Receptor Antagonist Start: 01-26-2024 End: 02-25-2024 take 1 tablet by mouth every six hours for nausea ondansetron ODT (Zofran-ODT) 4 MG disintegrating tablet Indications: Nausea and vomiting during Take 1 tablet (4 mg) by mouth every 6 (six) hours if needed for nausea or vomiting 30 tablet 11 01/26/2024 02/25/2024 Problems Active Problems Problem Classification Problem Date Documented Da te Episodic/Chronic Abdominal pain (3 sources) Epigastric pain; Translations: [Lower abdominal pain, unspecified] Episodic Adjustment disorders (9 sources) Adjustment disorder with depressed mood; Translations: [Adjustment disorder with depressed mood] Onset: 3 09-13-2022 Chronic Anxiety disorders (9 sources) Anxiety; Translations: [Anxiety disorder, unspecified] Onset: 3 09-13-2022 Chronic Conditions associated with dizziness or vertigo (7 sources) Dizziness and giddiness; Translations: [Dizziness] Onset: 3 Episodic Esophageal disorders (14 sources) Gastroesophageal reflux disease; Translations: [Gastro-esophageal reflux [...] (HPV)] Onset: 2 02-09-2024 Episodic Menstrual disorders (19 sources) Irregular menstruation, unspecified; Translations: [Dysmenorrhea, unspecified] Onset: 2 Chronic Nausea and vomiting (1 source) Nausea Episodic Other acquired deformities (4 sources) Scoliosis, unspecified; Translations: [SCOLIOSIS UNSPECIFIED] Onset: 2 Chronic Other acquired deformities (9 sources) Acquired scoliosis; Translations: [Scoliosis, unspecified] Onset: [...] Onset: 2 Episodic Other upper respiratory disease (9 sources) Allergic rhinitis; Translations: [Allergic rhinitis, unspecified] [...] Date Documented Da te Episodic/Chronic Gastrointestinal hemorrhage (9 sources) Blood-tinged feces; Translations: [Melena] Onset: 09-13-2022 09-13-2022 Episodic Mycoses (18 sources) Opportunistic mycosis; 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 09-13-2022 Episodic Other connective tissue disease (1 source) Pain in right leg; Translations: [PAIN IN RIGHT LEG] Onset: 11-12-2021 Episodic Other connective tissue disease (1 source) Abnormal posture; Translations: [ABNORMAL POSTURE] Onset: 11-15-2021 Episodic Other non-traumatic joint disorders (9 sources) Multiple joint pain; Translations: [Pain in unspecified joint] Onset: 09-13-2022 09-13-2022 Episodic Other skin disorders (9 sources) Acne; Translations: [Acne, unspecified] Onset: 09-13-2022 09-13-2022 Episodic Other skin disorders (9 sources) Subcutaneous nodule; Translations: [Localized swelling, mass and lump, unspecified] Onset: 09-13-2022 09-13-2022 Episodic Other upper respiratory infections (9 sources) Acute upper respiratory infection; Translations: [Acute upper respiratory infection, unspecified] Onset: 09-13-2022 09-13-2022 Episodic Ovarian cyst (1 source) Other ovarian cyst, right side; Translations: [OTHER OVARIAN CYST RIGHT SIDE] Onset: 02-18-2022 Episodic Residual codes; unclassified (1 source) 9 weeks gestation of ; Translations: [9 WEEKS GESTATION OF ] Onset: 04-11-2022 Episodic Residual codes; unclassified (9 sources) FH: Thyroid disorder; Translations: [Family history of other endocrine, nutritional and metabolic diseases] Onset: 09-13-2022 09-13-2022 Episodic Spondylosis; intervertebral disc disorders; other back problems (9 sources) Low back pain; Translations: [Low back pain] Onset: 09-13-2022 09-13-2022 Episodic Results Test Name Value Interpretation Reference Range Facility AFP, SERUM, OPEN SPINA BIFID Aon 02-20-2024 AFP MOM 0.72 . [facility] AFP VALUE 27.2 ng/mL . [facility] COMMENT: Comment . [facility] Comment on above: Tiffanie Petersen , Ph.D., [facility] Director References: Available Upon Request. Multiples Of Median Cutoffs For AFP Elevations Patrick 2.5 Black 2.8 IDD 2.0 Twins 4.5 Abbreviation Definitions IDD - Insulin Dep Diabetes OSBR - Open Spina Bifida Risk For further inquiries contact [employer] [facility] at [phone]. This test was developed and its performance characteristics determined by [employer]. It has not been cleared or approved by the Food and Drug Administration. Performed at: [facility], [place], [place] [id number] [employer] Consultant: Tor Real [facility], Phone: [phone] GEST. AGE ON COLLECTION DATE 18.3 . weeks [facility] GESTAT. AGE BASED ON LMP . [facility] Comment on above: Recalculations are n ot recommended when gestational dating by LMP and ultrasound are within 10 days. INSULIN DEP DIABETES No . [facility] INTERPRETATION Comment . [facility] Comment on above: Interpretation: Scre en Negative This result is screen negative for OSB. [...] Customer Services to discuss available options. The [employer] recommends amniocentesis be offered to women age 35 and older. [age] [facility] MULTIPLE GESTATION No . [facility] [place] [id number] . [facility] RACE . [facility] RESULTS Report . [facility] TEST RESULTS: Negative . [facility] WEIGHT 198 . lbs [facility] N N LMP [id number] 17 N 1 Y 198 N N N N N White/ [facility] RECURRENT VAGINITIS (HTRX)on 02-11-2024 ATOPOBIUM VAGINAE 0 [facility] ATOPOBIUM VAGINAE Not detected [facility] BVAB 2,3 (BACTERIAL VAGINOSIS ASSOCIATED BACTERIA 2, 3); MOBILUNCUS SPP 0 [facility] BVAB 2,3 (BACTERIAL VAGINOSIS ASSOCIATED BACTERIA 2, 3); MOBILUNCUS SPP Not detected [facility] MARGARET ALBICANS, PARAPSILOSIS, TROPICALIS 0 [facility] MARGARET ALBICANS, PARAPSILOSIS, TROPICALIS Not detected [facility] MARGARET GLABRATA 0 [facility] MARGARET GLABRATA Not detected [facility] MARGARET KRUSEI 0 [facility] MARGARET KRUSEI Not detected [facility] CHLAMYDIA TRACHOMATIS 0 [facility] CHLAMYDIA TRACHOMATIS Not detected [facility] GARDNERELLA VAGINALIS 0 [facility] GARDNERELLA VAGINALIS Not detected [facility] MEGASPHAERA (TYPES 1, 2) 0 [facility] MEGASPHAERA (TYPES 1, 2) Not detected [facility] MYCOPLASMA GENITALIUM 0 [facility] MYCOPLASMA GENITALIUM Not detected [facility] NEISSERIA GONORRHOEAE 0 [facility] NEISSERIA GONORRHOEAE Not detected [facility] TRICHOMONAS VAGINALIS 0 [facility] TRICHOMONAS VAGINALIS Not detected [facility] Urinalysis macro (dipstick) panel (U)on 02-09-2024 Bilirubin, UA Negative Negative - 4(70) +++ mg/dL [facility] Blood, UA Negative Negative - 50 Daniel/mcL [facility] Clarity, UA Clear [facility] Color, UA Yellow [facility] Glucose, UA Negative Negative - 1999(110) ++++ mg/dL [facility] Interpretation and review of laboratory results Normal [facility] Ketones, UA Negative Negative - 160(16) ++++ mg/dL [facility] Leukocytes, UA Negative Negative - 500+++ Gavin/mcL [facility] Nitrite, UA Negative Negative - Positive [facility] pH, UA 5.5 5 - 9 [facility] Protein, UA Negative Negative - 1999(20) ++++ mg/dL [facility] Spec Grav, UA 1.02 1 - 1.03 [facility] Urobilinogen, UA 0.2 0.2 - 12 mg/dL [facility] ALL CBC WITH AUTO DIFFon BASOPHILS ABSOLUTE AUTO 0.0 [facility] Basophils/100 WBC (Bld) 0.1 % Low 0.2 - 2.0 % [facility] Eosinophils/100 WBC (Bld) 1.0 % 0.9 - 7.0 % [facility] Erythrocyte distribution width (RBC) [Ratio] 13.2 % 11.0 - 15.0 % [facility] Hematocrit (Bld) [Volume fraction] 36.4 % 36.0 - 48.0 % [facility] Hemoglobin (Bld) [Mass/Vol] 11.9 g/dL Low 12.0 - 16.0 g/dL [facility] IMMATURE GRANULOCYTES ABS AUTO 0.01 [facility] Immature granulocytes/100 WBC (Bld) 0.1 % 0.0 - 0.5 % [facility] Interpretation and review of laboratory results Abnormal [facility] LYMPHOCYTES ABSOLUTE AUTO 1.5 [facility] Lymphocytes/100 WBC (Bld) 22.8 % 20.5 - 60.0 % [facility] MCH (RBC) [Entitic mass] 28.1 pg 26.7 - 34.0 pg [facility] MCHC (RBC) [Mass/Vol] 32.7 g/dL 29.9 - 35.2 g/dL [facility] MCV (RBC) [Entitic vol] 86.1 fL 81.0 - 99.0 fL [facility] MONOCYTES ABSOLUTE AUTO 0.4 [facility] Monocytes/100 WBC (Bld) 6.0 % 1.7 - 12.0 % [facility] NEUTROPHILS ABSOLUTE AUTO 4.7 [facility] Neutrophils/100 WBC (Bld) 70.0 % 43.0 - 75.0 % [facility] Platelet mean volume (Bld) [Entitic vol] 10.7 fL 9.5 - 13.5 fL [facility] TBH EO # 0.1 [facility]H PLT [address] [facility] RBC 4.23 [facility] WBC 6.7 [facility] Urinalysis macro (dipstick) panel (U)on 01-07-2024 Bilirubin, UA Negative Negative - 4(70) +++ mg/dL [facility] Blood, UA Negative Negative - 50 Daniel/mcL [facility] Clarity, UA Clear [facility] Color, UA Yellow [facility] Glucose, UA Negative Negative - 2000(110) ++++ mg/dL [facility] Interpretation and review of laboratory results Normal [facility] Ketones, UA Negative Negative - 160(16) ++++ mg/dL [facility] Leukocytes, UA Negative Negative - 500+++ Gavin/mcL [facility] Nitrite, UA Negative Negative - Positive [facility] pH, UA 6.5 5 - 9 [facility] Protein, UA Negative Negative - 1999(20) ++++ mg/dL [facility] Spec Grav, UA 1.020 1 - 1.03 [facility] Urobilinogen, UA 1.0 0.2 - 12 mg/dL [facility] CBC AUTO DIFFon 07-25-2022 BASO # 0.0 103/ul Normal 0.0-0.1 [facility] Comment on above: Performed By: #### C BC #### [facility] [address] [place], [place] [address] Dr. Jerry Samuel Basophils/100 WBC (Bld) 0.3 % Normal 0.2-2.0 [facility] Comment on above: Performed By: #### C BC #### [facility] [address] [place], [place] [address] Dr. Jerry Samuel EO # 0.1 103/ul Normal 0.0-0.7 [facility] Comment on above: Performed By: #### C BC #### [facility] [address] [place] [address] [address] Jerry Samuel Eosinophils/100 WBC (Bld) 1.4 % Normal 0.9-7.0 [facility] Comment on above: Performed By: #### C BC #### [facility] [address] [place] [address] Dr. Jerry Samuel Erythrocyte distribution width (RBC) [Ratio] 13.2 % Normal 11.0-15.0 [facility] Comment on above: Performed By: #### C BC #### [facility] [address] [place] [address] Dr. Jerry Samuel Hematocrit (Bld) [Volume fraction] 33.9 % Critically low 36.0-48.0 [facility] Comment on above: Performed By: #### C BC #### [facility] [address] [place] [address] Dr. Jerry Samuel Hemoglobin (Bld) [Mass/Vol] 11.3 g/dL Critically low 12.0-16.0 [facility] Comment on above: Performed By: #### C BC #### [facility] [address] [place] [address] Dr. Jerry Samuel IG # 0.04 10e3/ul Critically high 0.00-0.03 [facility] Comment on above: Performed By: #### C BC #### [facility] [address] [place] [address] Dr. Jerry Samuel IG % 0.6 % Critically high 0.0-0.5 [facility] Comment on above: Performed By: #### C BC #### [facility] [address] [place] [address] Dr. Jerry Samuel LYMPH # 1.9 103/ul Normal 1.2-3.8 [facility] Comment on above: Performed By: #### C BC #### [facility] [address] [place] [address] Dr. Jerry Samuel Lymphocytes/100 WBC (Bld) 30.2 % Normal 20.5-60.0 [facility] Comment on above: Performed By: #### C BC #### [facility] [address] [place] [address] Dr. Jerry Samuel MANUAL DIFF REQ NO Normal [facility] Comment on above: Performed By: #### C BC #### [facility] [address] [place] [address] Dr. Jerry Samuel MCH (RBC) [Entitic mass] 29.9 pg Normal 26.7-34.0 [facility] Comment on above: Performed By: #### C BC #### [facility] [address] [place] [address] Dr. Jerry Samuel MCHC (RBC) [Mass/Vol] 33.3 g/dL Normal 29.9-35.2 [facility] Comment on above: Performed By: #### C BC #### [facility] [address] [place] [address] Dr. Jerry Samuel MCV (RBC) [Entitic vol] 89.7 fL Normal 81.0-99.0 [facility] Comment on above: Performed By: #### C BC #### [facility] [address] [place] [address] Dr. Jerry Samuel MONO # 0.5 103/ul Normal 0.3-0.8 [facility] Comment on above: Performed By: #### C BC #### [facility] [address] [place] [address] Dr. Jerry Samuel Monocytes/100 WBC (Bld) 7.2 % Normal 1.7-12.0 [facility] Comment on above: Performed By: #### C BC #### [facility] [address] [place] [address] Dr. Jerry Samuel NEUT # 3.8 103/ul Normal 1.4-6.5 [facility] Comment on above: Performed By: #### C BC #### [facility] [address] [place] [address] Dr. Jerry Samuel Neutrophils/100 WBC (Bld) 60.3 % Normal 43.0-75.0 [facility] Comment on above: Performed By: #### C BC #### [facility] [address] [place], [place] [id number] Dr. Jerry Samuel Platelet mean volume (Bld) [Entitic vol] 9.8 fL Normal 9.5-13.5 [facility] Comment on above: Performed By: #### C BC #### [facility] [address] [place] [address] Dr. Jerry Samuel PLT 188 103/ul Normal 150-450 [facility] Comment on above: Performed By: #### C BC #### [facility] [address] [place] [address] [address] Jerry Samuel RBC 3.78 106/ul Critically low 4.20-5.40 [facility] Comment on above: Performed By: #### C BC #### [facility] [address] [place] [address] Dr. Jerry Samuel WBC 6.2 103/ul Normal 4.0-11.0 [facility] Comment on above: Performed By: #### C BC #### [facility] [address] [place] [address] Dr. Jerry Samuel GLUCOSE - 1HRon 07-25-2022 Glucose [Mass/Vol] 100 mg/dL Normal 74-106 [facility] Comment on above: Performed By: #### N BOX #### [facility] [address] [place] [address] Dr. Jerry Samuel US PREG ANATOMY SINGLEon [...] ABRIL SCANLON Date: 2022-07-02 13:45 Normal [facility] AFP MATERNAL FOR SPINA BIFID Aon 06-14-2022 AFP MoM 0.87 Normal [facility] Comment on above: Performed By: #### R PRQ #### [facility] [address] [place] [address] [address] Jerry Samuel AFP Value 39.6 ng/mL Normal [facility] Comment on above: Performed By: #### R PRQ #### [facility] [address] [place] [address] [address] Jerry Samuel AFP, Serum for Spina Bifida Report Normal [facility] Comment on above: Performed By: #### R PRQ #### [facility] [address] [place] [address] [address] Jerry Samuel Comment Comment Normal [facility] Comment on above: Result Comment: Irina Petersen, Ph.D., [facility] Director . References: Available Upon Request. . Multiples Of Median Cutoffs For AFP Elevations Patrick 2.5 Black 2.8 IDD 2.0 Twins 4.5 Abbreviation Definitions IDD - Insulin Dep Diabetes OSBR - Open Spina Bifida Risk . For further inquiries contact [employer] [facility] [facility] at [phone]. . This test was developed and its performance characteristics determined by [employer]. It has not been cleared or approved by the Food and Drug Administration. Performed By: #### R PRQ #### [facility] [address] [place] [address] [address] Jerry Samuel Gest Age Collection Date 18.9 weeks Normal [facility] Comment on above: Performed By: #### R PRQ #### [facility] [address] [place] [address] [address] Jerry Samuel Gestat, Age Based on Ultrasound Normal [facility] Comment on above: Result Comment: 09.0 on 04/04/2022 Recalculations are not recommended when gestational dating by LMP and ultrasound are within 10 days. Performed By: #### R PRQ #### [facility] [address] [place] [address] [address] Jerry Samuel Insulin Dep Diabetes No Normal [facility] Comment on above: Performed By: #### R PRQ #### [facility] [address] [place] [address] Dr. Jerry Samuel Interpretation Comment Normal [facility] Comment on above: Result Comment: [...] Customer Services to discuss available options. The [employer] recommends amniocentesis be offered to women age 35 and older. Performed By: #### R PRQ #### [facility] [address] [place] [address] Dr. Jerry Samuel [age] Normal [facility] Comment on above: Performed By: #### R PRQ #### [facility] [address] [place] [address] Dr. Jerry Samuel Multiple Gestation No Normal [facility] Comment on above: Performed By: #### R PRQ #### [facility] [address] [place] [address] Dr. Jerry Samuel OS[place] 1 [place] [id number] Normal [facility] Comment on above: Performed By: #### R PRQ #### [facility] [address] [place] [address] Dr. Jerry Samuel PDF . Normal [facility] Comment on above: Performed By: #### R PRQ #### [facility] [address] [place] [address] Dr. Jerry Samuel Race Normal [facility] Comment on above: Performed By: #### R PRQ #### [facility] [address] [place] [address] Dr. Jerry Samuel Test Results: Negative Normal [facility] Comment on above: Performed By: #### R PRQ #### [facility] [address] [place] [address] Dr. Jerry Samuel CHLAMYDIA/GONOCOCCUS ELINOR ( AB/URINE/PAPon 06-07-2022 Chlamydia trachomatis, ELINOR Negative Normal Negative [facility] Comment on above: Performed By: #### R PRQ #### [facility] [address] [place] [address] Dr. Jerry Samuel Neisseria gonorrhoeae, ELINOR Negative Normal Negative [facility] Comment on above: Performed By: #### R PRQ #### [facility] [address] [place] [address] Dr. Jerry Samuel VAGINITIS/VAGINOSIS DNA PROB Nayan 06-06-2022 Margaret species Negative Normal Negative [facility] Comment on above: Performed By: #### V AGINT #### [facility] [address] [place] [address] Dr. Jerry Samule Gardnerella vaginalis Negative Normal Negative [facility] Comment on above: Performed By: #### V AGINT #### [facility] [address] [place] [address] Dr. Jerry Samuel Trichomonas vaginalis Negative Normal Negative [facility] Comment on above: Performed By: #### V AGINT #### [facility] [address] [place] [address] Dr. Jerry Samuel CBC AUTO DIFFon 05-26-2022 BASO # 0.0 103/ul Normal 0.0-0.1 [facility] Comment on above: Performed By: #### C BC #### [facility] [address] [address] [address] Jerry Samuel Basophils/100 WBC (Bld) 0.1 % Critically low 0.2-2.0 [facility] Comment on above: Performed By: #### C BC #### [facility] [address] [address] [address] Jerry Samuel EO # 0.0 103/ul Normal 0.0-0.7 [facility] Comment on above: Performed By: #### C BC #### [facility] [address] [address] [address] Jerry Samuel Eosinophils/100 WBC (Bld) 0.4 % Critically low 0.9-7.0 [facility] Comment on above: Performed By: #### C BC #### [facility] [address] [place] [address] Dr. Jerry Samuel Erythrocyte distribution width (RBC) [Ratio] 12.6 % Normal 11.0-15.0 [facility] Comment on above: Performed By: #### C BC #### [facility] [address] [place] [address] Dr. Jerry Samuel Hematocrit (Bld) [Volume fraction] 34.0 % Critically low 36.0-48.0 [facility] Comment on above: Performed By: #### C BC #### [facility] [address] [place] [address] Dr. Jerry Samuel Hemoglobin (Bld) [Mass/Vol] 11.6 g/dL Critically low 12.0-16.0 [facility] Comment on above: Performed By: #### C BC #### [facility] [address] [place] [address] Dr. Jerry Samuel IG # 0.03 10e3/ul Normal 0.00-0.03 [facility] Comment on above: Performed By: #### C BC #### [facility] [address] [place] [address] Dr. Jerry Samuel IG % 0.4 % Normal 0.0-0.5 [facility] Comment on above: Performed By: #### C BC #### [facility] [address] [address] [address] Jerry Samuel LYMPH # 1.1 103/ul Critically low 1.2-3.8 [facility] Comment on above: Performed By: #### C BC #### [facility] [address] [place] [address] Dr. Jerry Samuel Lymphocytes/100 WBC (Bld) 16.5 % Critically low 20.5-60.0 [facility] Comment on above: Performed By: #### C BC #### [facility] [address] [place] [address] Dr. Jerry Samuel MANUAL DIFF REQ NO Normal [facility] Comment on above: Performed By: #### C BC #### [facility] [address] [place] [address] Dr. Jerry Samuel MCH (RBC) [Entitic mass] 29.1 pg Normal 26.7-34.0 [facility] Comment on above: Performed By: #### C BC #### [facility] [address] [place] [address] Dr. Jerry Samuel MCHC (RBC) [Mass/Vol] 34.1 g/dL Normal 29.9-35.2 [facility] Comment on above: Performed By: #### C BC #### [facility] [address] [place] [address] Dr. Jerry Samuel MCV (RBC) [Entitic vol] 85.2 fL Normal 81.0-99.0 [facility] Comment on above: Performed By: #### C BC #### [facility] [address] [place] [address] Dr. Jerry Samuel MONO # 0.4 103/ul Normal 0.3-0.8 [facility] Comment on above: Performed By: #### C BC #### [facility] [address] [place] [address] Dr. Jerry Samuel Monocytes/100 WBC (Bld) 6.0 % Normal 1.7-12.0 [facility] Comment on above: Performed By: #### C BC #### [facility] [address] [place] [address] Dr. Jerry Samuel NEUT # 5.1 103/ul Normal 1.4-6.5 [facility] Comment on above: Performed By: #### C BC #### [facility] [address] [place] [address] Dr. Jerry Samuel Neutrophils/100 WBC (Bld) 76.6 % Critically high 43.0-75.0 [facility] Comment on above: Performed By: #### C BC #### [facility] [address] [place] [address] Dr. Jerry Samuel Platelet mean volume (Bld) [Entitic vol] 10.5 fL Normal 9.5-13.5 [facility] Comment on above: Performed By: #### C BC #### [facility] [address] [place] [address] Dr. Jerry Samuel PLT 207 103/ul Normal 150-450 [facility] Comment on above: Performed By: #### C BC #### [facility] [address] [place] [address] Dr. Jerry Samuel RBC 3.99 106/ul Critically low 4.20-5.40 [facility] Comment on above: Performed By: #### C BC #### [facility] [address] [place] [address] Dr. Jerry Samuel WBC 6.7 103/ul Normal 4.0-11.0 [facility] Comment on above: Performed By: #### C BC #### [facility] [address] [place] [address] Dr. Jerry Samuel ER URINE PROFILEon 3 Bilirubin Ql (U) Negative Normal NEGATIVE [facility] Comment on above: Performed By: #### E RUR #### [facility] [address] [place] [address] Dr. Jerry Samuel Clarity (U) CLEAR Normal CLEAR [facility] Comment on above: Performed By: #### E RUR #### [facility] [address] [place] [address] Dr. Jerry Samuel Color (U) LT. YELLOW Normal YELLOW [facility] Comment on above: Performed By: #### E RUR #### [facility] [address] [place] [address] Dr. Jerry HERMOSILLO A micrscopic examina tion will be performed if indicated. Normal [facility] Comment on above: Performed By: #### E RUR #### [facility] [address] [place] [address] Dr. Jerry Samuel Glucose Ql (U) Negative Normal NEGATIVE [facility] Comment on above: Performed By: #### E RUR #### [facility] [address] [place] [address] Dr. Jerry Samuel Hemoglobin Ql (U) Negative Normal NEGATIVE [facility] Comment on above: Performed By: #### E RUR #### [facility] [address] [place] [address] Dr. Jerry Samuel Ketones Ql (U) Negative Normal NEGATIVE [facility] Comment on above: Performed By: #### E RUR #### [facility] [address] [place] [address] Dr. Jerry Samuel LEUKOCYTES Negative Normal NEGATIVE [facility] Comment on above: Performed By: #### E RUR #### [facility] [address] [place] [address] Dr. Jerry Samuel Nitrite Ql (U) Negative Normal NEGATIVE [facility] Comment on above: Performed By: #### E RUR #### [facility] [address] [place] [address] Dr. Jerry Samuel pH (U) 6.5 [pH] Normal 5-9 [facility] Comment on above: Performed By: #### E RUR #### [facility] [address] [place] [address] Dr. Jerry Samuel SPEC GRAVITY <=1.005 Abnormal 1.005-<=1.025 [facility] Comment on above: Performed By: #### E RUR #### [facility] [address] [place] [address] Dr. Jerry Samuel UA PROTEIN Negative Normal NEGATIVE/ TRACE [facility] Comment on above: Performed By: #### E RUR #### [facility] [address] [address] [address] Jerry Samuel UR MICRO IND NOT INDICATED Normal [facility] Comment on above: Performed By: #### E RUR #### [facility] [address] [place] [address] Dr. Jerry Samuel Urobilinogen Qn (U) 0.2 {Charlette'U}/dL Normal 0.2 - 1. 0 [facility] Comment on above: Performed By: #### E RUR #### [facility] [address] [place] [address] Dr. Jerry Samuel PROF 14(COMP METB)on 023 Albumin [Mass/Vol] 3.4 g/dL Normal 3.4-5.0 [facility] Comment on above: Performed By: #### R PRQ #### [facility] [address] [place] [address] Dr. Jerry Samuel Albumin/Globulin [Mass ratio] 1.0 {ratio} Normal [facility] Comment on above: Performed By: #### R PRQ #### [facility] [address] [place] [address] Dr. Jerry Samuel ALP [Catalytic activity/Vol] 33 U/L Critically low 46-116 [facility] Comment on above: Performed By: #### R PRQ #### [facility] [address] [address] [address] Jerry Samuel ALT [Catalytic activity/Vol] 16 U/L Normal 14-59 [facility] Comment on above: Performed By: #### R PRQ #### [facility] [address] [place] [address] Dr. Jerry Samuel Anion gap [Moles/Vol] 8.5 mmol/L Normal [facility] Comment on above: Performed By: #### R PRQ #### [facility] [address] [place] [address] Dr. Jerry Samuel AST [Catalytic activity/Vol] 12 U/L Critically low 15-37 [facility] Comment on above: Performed By: #### R PRQ #### [facility] [address] [place] [address] Dr. Jerry Samuel Bilirubin [Mass/Vol] 0.3 mg/dL Normal 0.2-1.0 [facility] Comment on above: Performed By: #### R PRQ #### [facility] [address] [place] [address] Dr. Jerry Samuel Calcium [Mass/Vol] 9.2 mg/dL Normal 8.5-10.1 [facility] Comment on above: Performed By: #### R PRQ #### [facility] [address] [place] [address] Dr. Jerry Samuel Chloride [Moles/Vol] 105 mmol/L Normal 98-107 [facility] Comment on above: Performed By: #### R PRQ #### [facility] [address] [place] [address] Dr. Jerry Samuel CO2 [Moles/Vol] 25.0 mmol/L Normal 21.0-32.0 [facility] Comment on above: Performed By: #### R PRQ #### [facility] [address] [place] [address] Dr. Jerry Samuel Creatinine [Mass/Vol] 0.40 mg/dL Critically low 0.55-1.02 [facility] Comment on above: Performed By: #### R PRQ #### [facility] [address] [place] [address] Dr. Jerry Samuel EGFR-AF GAMBIAN >60 Normal >=60 [facility] Comment on above: Performed By: #### R PRQ #### [facility] [address] [place] [address] Dr. Jerry Samuel EGFR-NON AF GAMBIAN >60 Normal >=60 [facility] Comment on above: Performed By: #### R PRQ #### [facility] [address] [place] [address] Dr. Jerry Samuel Globulin (S) [Mass/Vol] 3.5 g/dL Normal [facility] Comment on above: Performed By: #### R PRQ #### [facility] [address] [address] [address] Jerry Samuel Glucose [Mass/Vol] 94 mg/dL Normal 74-106 [facility] Comment on above: Performed By: #### R PRQ #### [facility] [address] [address] [address] Jerry Samuel Potassium [Moles/Vol] 3.5 mmol/L Normal 3.5-5.1 [facility] Comment on above: Performed By: #### R PRQ #### [facility] [address] [address] [address] Jerry Samuel Protein [Mass/Vol] 6.9 g/dL Normal 6.4-8.2 [facility] Comment on above: Performed By: #### R PRQ #### [facility] [address] [address] [address] Jerry Samuel Sodium [Moles/Vol] 135 mmol/L Critically low 136-145 [facility] Comment on above: Performed By: #### R PRQ #### [facility] [address] [address] [address] Jerry Samuel Urea nitrogen [Mass/Vol] 6.0 mg/dL Critically low 7.0-18.0 [facility] Comment on above: Performed By: #### R PRQ #### [facility] [address] [address] [address] Jerry Samuel Urea nitrogen/Creatinine [Mass ratio] 15.0 mg/mg Normal [facility] Comment on above: Performed By: #### R PRQ #### [facility] [address] [address] [address] Jerry SADLER BOX TEST PT SEND OUTo n 05-02-2022 SENT TO REF LAB 05/02/2022 Normal [facility] Comment on above: Performed By: #### N BOX #### [facility] [address] [address] [address] Jerry Samuel HEP B SURFACE ANTIGEN SCREEN on 04-05-2022 HBsAg Screen Negative Normal Negative [facility] Comment on above: Performed By: #### N BOX #### [facility] [address] [address] [address] Jerry Samuel HEPATITIS C VIRUS AB W/ REFL EX QUANTon 04-05-2022 HCV AB <0.1 Normal 0.0-0.9 [facility] Comment on above: Performed By: #### H CVPCRR #### [facility] [address] [place] [address] Dr. Jerry Samuel Interpretation: Comment Normal [facility] Comment on above: Result Comment: Nega tive Not infected with HCV, unless recent infection is suspected or other evidence exists to indicate HCV infection. Performed By: #### H CVPCRR #### [facility] [address] [place] [address] Dr. Jerry Samuel HIV 1 AND 2 WITH REFLEXon HIV Screen 4th Generation wRfx Non-Reactive Normal Non Reactive [facility] Comment on above: Result Comment: HIV Negative HIV-1/HIV-2 antibodies and HIV-1 p24 antigen were NOT detected. There is no laboratory evidence of HIV infection. Performed By: #### R PRQ #### [facility] [address] [place] [address] Dr. Jerry Samuel RPR QUANTon 04-05-2022 Rapid Plasma Reagin, Quant Non-Reactive Normal NonRea<1:1 [facility] Comment on above: Result Comment: Plea se Note: This test does not meet current guidelines for screening and diagnosis of syphilis. This test is intended for following treatment response in patients being treated for syphilis infection. To screen for syphilis infection, a reflex cascade that includes both RPR and a treponema-specific assay should be utilized, such as Treponema pallidum (Syphilis) Screening [place] (786000) or Rapid Plasma Reagin (RPR) Test With Reflex to Quantitative RPR and Confirmatory Treponema pallidum Antibodies (522066). Performed By: #### R PRQ #### [facility] [address] [place] [address] Dr. Jerry Samuel RUBELLA AB IGGon 04-05-2022 Rubella Antibodies, IgG 1.97 index Normal Immune >0.99 [facility] Comment on above: Result Comment: Non- immune <0.90 Equivocal 0.90 - 0.99 Immune >0.99 Performed By: #### R UBIGG #### [facility] [address] [place] [address] Dr. Jerry Samuel CBC AUTO DIFFon 04-04-2022 BASO # 0.0 103/ul Normal 0.0-0.1 [facility] Comment on above: Performed By: #### R PRQ #### [facility] [address] [place] [address] Dr. Jerry Samuel Basophils/100 WBC (Bld) 0.3 % Normal 0.2-2.0 [facility] Comment on above: Performed By: #### R PRQ #### [facility] [address] [place] [address] Dr. Jerry Samuel EO # 0.1 103/ul Normal 0.0-0.7 [facility] Comment on above: Performed By: #### R PRQ #### [facility] [address] [place] [address] Dr. Jerry Samuel Eosinophils/100 WBC (Bld) 0.7 % Critically low 0.9-7.0 [facility] Comment on above: Performed By: #### R PRQ #### [facility] [address] [place] [address] Dr. Jerry Samuel Erythrocyte distribution width (RBC) [Ratio] 12.3 % Normal 11.0-15.0 [facility] Comment on above: Performed By: #### R PRQ #### [facility] [address] [place] [address] Dr. Jerry Samuel Hematocrit (Bld) [Volume fraction] 35.1 % Critically low 36.0-48.0 [facility] Comment on above: Performed By: #### R PRQ #### [facility] [address] [place] [address] Dr. Jerry Samuel Hemoglobin (Bld) [Mass/Vol] 11.8 g/dL Critically low 12.0-16.0 [facility] Comment on above: Performed By: #### R PRQ #### [facility] [address] [address] [address] Jerry Samuel IG # 0.02 10e3/ul Normal 0.00-0.03 [facility] Comment on above: Performed By: #### R PRQ #### [facility] [address] [place] [address] Dr. Jerry Samuel IG % 0.3 % Normal 0.0-0.5 [facility] Comment on above: Performed By: #### R PRQ #### [facility] [address] [place] [address] Dr. Jerry Samuel LYMPH # 2.0 103/ul Normal 1.2-3.8 [facility] Comment on above: Performed By: #### R PRQ #### [facility] [address] [place] [address] Dr. Jerry Samuel Lymphocytes/100 WBC (Bld) 26.7 % Normal 20.5-60.0 [facility] Comment on above: Performed By: #### R PRQ #### [facility] [address] [place] [address] Dr. Jerry Samuel MANUAL DIFF REQ NO Normal [facility] Comment on above: Performed By: #### R PRQ #### [facility] [address] [place] [address] Dr. Jerry Samuel MCH (RBC) [Entitic mass] 29.0 pg Normal 26.7-34.0 [facility] Comment on above: Performed By: #### R PRQ #### [facility] [address] [place] [address] Dr. Jerry Samuel MCHC (RBC) [Mass/Vol] 33.6 g/dL Normal 29.9-35.2 [facility] Comment on above: Performed By: #### R PRQ #### [facility] [address] [place] [address] Dr. Jerry Samuel MCV (RBC) [Entitic vol] 86.2 fL Normal 81.0-99.0 [facility] Comment on above: Performed By: #### R PRQ #### [facility] [address] [address] [address] Jerry Samuel MONO # 0.5 103/ul Normal 0.3-0.8 [facility] Comment on above: Performed By: #### R PRQ #### [facility] [address] [place] [address] Dr. Jerry Samuel Monocytes/100 WBC (Bld) 6.7 % Normal 1.7-12.0 [facility] Comment on above: Performed By: #### R PRQ #### [facility] [address] [place] [address] Dr. Jerry Samuel NEUT # 4.9 103/ul Normal 1.4-6.5 [facility] Comment on above: Performed By: #### R PRQ #### [facility] [address] [place] [address] Dr. Jerry Samuel Neutrophils/100 WBC (Bld) 65.3 % Normal 43.0-75.0 [facility] Comment on above: Performed By: #### R PRQ #### [facility] [address] [place] [address] Dr. Jerry Samuel Platelet mean volume (Bld) [Entitic vol] 10.0 fL Normal 9.5-13.5 [facility] Comment on above: Performed By: #### R PRQ #### [facility] [address] [place] [address] Dr. Jerry Samuel PLT 218 103/ul Normal 150-450 [facility] Comment on above: Performed By: #### R PRQ #### [facility] [address] [place] [address] Dr. Jerry Samuel RBC 4.07 106/ul Critically low 4.20-5.40 [facility] Comment on above: Performed By: #### R PRQ #### [facility] [address] [address] [address] Jerry Samuel WBC 7.5 103/ul Normal 4.0-11.0 [facility] Comment on above: Performed By: #### R PRQ #### [facility] [address] [place] [address] Dr. Jerry Samuel CULTURE URINEon 04-04-2022 CULTURE URINE Culture Observations : NO GROWTH. Normal [facility] Comment on above: Performed By: #### N BOX #### [facility] [address] [address] [address] Jerry Samuel GLYCOHEMOGLOBIN A1Con 2021 ADA RECOMMENDATION SEE BELOW Normal [facility] Comment on above: Result Comment: ADA RECOMMENDED LIMIT 4.0 - 6.0 ADA THERAPEUTIC TARGET < 7.0 ACTION SUGGESTED > 7.0 Performed By: #### N BOX #### [facility] [address] [address] [address] Jerry Samuel Glucose [Mass/Vol] 97 mg/dL Normal [facility] Comment on above: Performed By: #### N BOX #### [facility] [address] [address] [address] Jerry Samuel HbA1c (Bld) [Mass fraction] 5.0 % Normal 4.5-6.2 [facility] Comment on above: Performed By: #### N BOX #### [facility] [address] [address] [address] Jerry Samuel TYPE AND SCREENon 04-04-2022 TYPE AND SCREEN Negative Normal [facility] Comment on above: Performed By: #### N BOX #### [facility] [address] [place] [address] Dr. Jerry Samuel US PREG TVon 04-04-2022 [...] by: EDITH WILLIS Date: 2022-04-04 16:13 Normal [facility] PREG QUANT HCGon 03-07-2022 HCG QUANT 2201 mIU/mL Normal [facility] Comment on above: Performed By: #### R PRQ #### [facility] [address] [place] [address] Dr. Jerry Samuel HCG RANGE SEE BELOW Normal [facility] Comment on above: Result Comment: 5-50 0.2-1 WEEK 50-500 1-2 WEEKS 100-5,000 2-3 WEEKS 500-10,000 3-4 WEEKS 1,000-50,000 4-5 WEEKS 10,000-100,000 5-6 WEEKS 15,000-200,000 6-8 WEEKS 10,000-100,000 2-3 MONTHS Performed By: #### R PRQ #### [facility] [address] [place] [address] Dr. Jerry Samuel PREG QUANT HCGon 03-05-2022 HCG QUANT 820 mIU/mL Normal [facility] Comment on above: Performed By: #### R PRQ #### [facility] [address] [place] [address] Dr. Jerry Samuel HCG RANGE SEE BELOW [place] [facility] Comment on above: Result Comment: 5-50 0.2-1 WEEK 50-500 1-2 WEEKS 100-5,000 2-3 WEEKS 500-10,000 3-4 WEEKS 1,000-50,000 4-5 WEEKS 10,000-100,000 5-6 WEEKS 15,000-200,000 6-8 WEEKS 10,000-100,000 2-3 MONTHS Performed By: #### R PRQ #### [facility] [address] [place] [address] Dr. Jerry Samuel PAP ACOG PANEL 2: 21 to 29on 02-21-2022 . . Normal [facility] Comment on above: Performed By: #### R PRQ #### [facility] [address] [place] [address] Dr. Jerry Samuel Age Gdln ACOG Testing - [facility] Comment on above: Performed By: #### R PRQ #### [facility] [address] [place] [address] Dr. Jerry Samuel DIAGNOSIS: Comment Normal [facility] Comment on above: Result Comment: NEGA TIVE FOR INTRAEPITHELIAL LESION OR MALIGNANCY. SPECIMEN REPROCESSED FOR INTERPRETATION. Performed By: #### R PRQ #### [facility] [address] [place] [address] Dr. Jerry Samuel Methodology: Comment Normal [facility] Comment on above: Result Comment: This liquid based ThinPrep(R) pap test was screened with the use of an image guided system. Performed By: #### R PRQ #### [facility] [address] [place] [address] Dr. Jerry Samuel Note: Comment Normal [facility] Comment on above: Result Comment: The Pap smear is a screening test designed to aid in the detection of premalignant and malignant conditions of the uterine cervix. It is not a diagnostic procedure and should not be used as the sole means of detecting cervical cancer. Both false-positive and false-negative reports do occur. . Performed By: #### R PRQ #### [facility] [address] [place] [address] Dr. Jerry Samuel Performed by: Comment Normal [facility] Comment on above: Result Comment: Anders Roman, Cattle Examiner (ASCP) Performed By: #### R PRQ #### [facility] [address] [place] [address] Dr. Jerry Samuel Reflex Criteria: Comment Normal [facility] Comment on above: Result Comment: The HPV DNA reflex criteria were not met with this specimen result therefore, no HPV testing was performed. . Performed By: #### R PRQ #### [facility] [address] [place] [address] Dr. Jerry Samuel Specimen adequacy: Comment Normal [facility] Comment on above: Result Comment: Sati sfactory for evaluation. Endocervical and/or squamous metaplastic cells (endocervical component) are present. Performed By: #### R PRQ #### [facility] [address] [place] [address] Dr. Jerry Samuel US PELVIS AND TRANSVAGon [...] EDITH WILLIS Date: 2022-02-13 14:34 Normal [facility] CBC AUTO DIFFon 02-12-2022 BASO # 0.0 103/ul Normal 0.0-0.1 [facility] Comment on above: Performed By: #### C BC #### [facility] [address] [place] [address] Dr. Jerry Samuel Basophils/100 WBC (Bld) 0.6 % Normal 0.2-2.0 [facility] Comment on above: Performed By: #### C BC #### [facility] [address] [place] [address] Dr. Jerry Samuel EO # 0.1 103/ul Normal 0.0-0.7 [facility] Comment on above: Performed By: #### C BC #### [facility] [address] [place] [address] Dr. Jerry Samuel Eosinophils/100 WBC (Bld) 1.2 % Normal 0.9-7.0 [facility] Comment on above: Performed By: #### C BC #### [facility] [address] [place] [address] Dr. Jerry Samuel Erythrocyte distribution width (RBC) [Ratio] 11.9 % Normal 11.0-15.0 [facility] Comment on above: Performed By: #### C BC #### [facility] [address] [place] [address] Dr. Jerry Samuel Hematocrit (Bld) [Volume fraction] 39.1 % Normal 36.0-48.0 [facility] Comment on above: Performed By: #### C BC #### [facility] [address] [place] [address] Dr. Jerry Samuel Hemoglobin (Bld) [Mass/Vol] 13.0 g/dL Normal 12.0-16.0 [facility] Comment on above: Performed By: #### C BC #### [facility] [address] [place] [address] Dr. Jerry Samuel IG # 0.01 10e3/ul Normal 0.00-0.03 [facility] Comment on above: Performed By: #### C BC #### [facility] [address] [place] [address] Dr. Jerry Samuel IG % 0.2 % Normal 0.0-0.5 [facility] Comment on above: Performed By: #### C BC #### [facility] [address] [place] [address] Dr. Jerry Samuel LYMPH # 2.4 103/ul Normal 1.2-3.8 [facility] Comment on above: Performed By: #### C BC #### [facility] [address] [place] [address] Dr. Jerry Samuel Lymphocytes/100 WBC (Bld) 37.7 % Normal 20.5-60.0 [facility] Comment on above: Performed By: #### C BC #### [facility] [address] [place] [address] Dr. Jerry Samuel MANUAL DIFF REQ NO Normal [facility] Comment on above: Performed By: #### C BC #### [facility] [address] [place] [address] Dr. Jerry Samuel MCH (RBC) [Entitic mass] 29.2 pg Normal 26.7-34.0 [facility] Comment on above: Performed By: #### C BC #### [facility] [address] [place] [address] Dr. Jerry Samuel MCHC (RBC) [Mass/Vol] 33.2 g/dL Normal 29.9-35.2 [facility] Comment on above: Performed By: #### C BC #### [facility] [address] [place] [address] Dr. Jerry Samuel MCV (RBC) [Entitic vol] 87.9 fL Normal 81.0-99.0 [facility] Comment on above: Performed By: #### C BC #### [facility] [address] [place] [address] Dr. Jerry Samuel MONO # 0.4 103/ul Normal 0.3-0.8 [facility] Comment on above: Performed By: #### C BC #### [facility] [address] [place] [address] Dr. Jerry Samuel Monocytes/100 WBC (Bld) 5.9 % Normal 1.7-12.0 [facility] Comment on above: Performed By: #### C BC #### [facility] [address] [place] [address] Dr. Jerry Samuel NEUT # 3.5 103/ul Normal 1.4-6.5 [facility] Comment on above: Performed By: #### C BC #### [facility] [address] [place] [address] Dr. Jerry Samuel Neutrophils/100 WBC (Bld) 54.4 % Normal 43.0-75.0 [facility] Comment on above: Performed By: #### C BC #### [facility] [address] [place] [address] Dr. Jerry Samuel Platelet mean volume (Bld) [Entitic vol] 9.9 fL Normal 9.5-13.5 [facility] Comment on above: Performed By: #### C BC #### [facility] [address] [place] [address] Dr. Jerry Samuel PLT 229 103/ul Normal 150-450 [facility] Comment on above: Performed By: #### C BC #### [facility] [address] [place] [address] Dr. Jerry Samuel RBC 4.45 106/ul Normal 4.20-5.40 [facility] Comment on above: Performed By: #### C BC #### [facility] [address] [address] [address] Jerry Samuel WBC 6.5 103/ul Normal 4.0-11.0 [facility] Comment on above: Performed By: #### C BC #### [facility] [address] [address] [address] Jerry Samuel FREE T4on 02-12-2022 Free T4 [Mass/Vol] 0.99 ng/dL Normal 0.76-1.46 [facility] Comment on above: Performed By: #### R PRQ #### [facility] [address] [address] [address] Jerry Samuel GLYCOHEMOGLOBIN A1Con 2021 ADA RECOMMENDATION SEE BELOW Normal [facility] Comment on above: Result Comment: ADA RECOMMENDED LIMIT 4.0 - 6.0 ADA THERAPEUTIC TARGET < 7.0 ACTION SUGGESTED > 7.0 Performed By: #### R PRQ #### [facility] [address] [place] [address] Dr. Jerry Samuel Glucose [Mass/Vol] 103 mg/dL Normal [facility] Comment on above: Performed By: #### R PRQ #### [facility] [address] [address] [address] Jerry Samuel HbA1c (Bld) [Mass fraction] 5.2 % Normal 4.5-6.2 [facility] Comment on above: Performed By: #### R PRQ #### [facility] [address] [address] [address] Jerry Samuel PROTIMEon 02-12-2022 INR Coag (PPP) [Relative time] 1.00 {INR} Normal [facility] Comment on above: Performed By: #### N BOX #### [facility] [address] [place] [address] Dr. Jerry Samuel INR GUIDELINES SEE BELOW Normal [facility] Comment on above: Result Comment: SACHA RED INR: 2.0 - 3.0 CONDITIONS NOT LISTED BELOW 2.5 - 3.5 FOR PROSTHETIC HEART VALVE REPLACEMENT 2.5 - 3.5 RECURRENT THROMBOSIS Performed By: #### N BOX #### [facility] [address] [address] [address] Jerry Samuel PT Coag (PPP) [Time] 10.8 s Normal 9.0-11.6 [facility] Comment on above: Performed By: #### N BOX #### [facility] [address] [place] [address] Dr. Jerry Samuel PTTon 02-12-2022 aPTT Coag (Bld) [Time] 27.8 s Normal 22.3-36.2 [facility] Comment on above: Performed By: #### N BOX #### [facility] [address] [address] [address] Jerry Samuel TSHon 02-12-2022 TSH 1.741 uIU/mL Normal 0.358-3.740 [facility] Comment on above: Performed By: #### T SH #### [facility] [address] [place] [address] Dr. Jerry Samuel Outside Recordson 11-20-2021 Outside Records [id number] TIFF [facility] Outside Recordson 11-16-2021 Outside Records [id number] GTIFF [facility] HCG,Urineon 02-22-2021 Beta HCG ( test) Ql (U) Negative Normal [facility] Comment on above: Result Comment: PERF ORMED BY: [place] [address] PATHOLOGIST WOMEN'S MINISTRY DIRECTOR PRIYA WHITE M.D. Performed By: #### U HCG #### [address] Aditya 02-22-2021 L ---- Specimen: [id number] Received: 02/23/21 Status: DRE Ellsworthcornel Num: [id number] Spec Type: Surgical Subm Dr: Edith Cagle Jr, DO Tissues: A Duodenum - Biopsy (DUODENUM BX) B Stomach - Biopsy/Polyp (ANTRUM BX) C Colon Biopsy (RANDOM COLON) Procedures: HE Stain/6, Gross/Micro L4/3 Patient Age/Sex Location Account Attending Physician Will Shay 25/ [id number] Edith Cagle Jr, SPEC NUM: [id number] RECD: 02/23/21 STATUS: DRE MAGALLANES NUM: [id number] CASIMIRO: 02/22/21- [facility] DR: Edith Cagle Jr, DO ENTERED: 02/23/21 WOOD MARTÍNEZ: SPEC TYPE: Surgical DEPT: S ENTERED BY: [id number] RECV BY: [id number] ORDERED: HE Stain/6, Gross/Micro L4/3 ORDERED: HE [...] in one cassette labeled B1. (SM/YJ) Specimen: [id number] Received: 02/23/21 Status: DRE Glenn Num: [id number] Spec Type: Surgical Subm Dr: Edith Cagle Jr, DO Tissues: A Duodenum - Biopsy (DUODENUM BX) B Stomach - Biopsy/Polyp (ANTRUM BX) C Colon Biopsy (RANDOM COLON) Procedures: HE Stain/6, Gross/Micro L4/3 Patient: Will Shay [id number] (Continued) Specimen: [id number] Received: 02/23/21 (Continued) Gross Description (Continued) Signed (signature on file) Gail Crockett MD 02/26/21 1601 Specimen: [id number] Received: 02/23/21 Status: DER Glenn Num: [id number] Spec Type: Surgical Subm Dr: Edith Cagle Jr, Tissues: A Duodenum - Biopsy (DUODENUM BX) B Stomach - Biopsy/Polyp (ANTRUM BX) C Colon Biopsy (RANDOM COLON) Procedures: HE Stain/6, Gross/Micro L4/3 Patient: Will Shay [id number] (Continued) Specimen: [id number] Received: 02/23/21 (Continued) Gross Description (Continued) C. Received in formalin labeled with the patient's name, number and random colon rule out microscopic colitis are 2 marsh tissue fragments, 0.3 cm and 0.9 cm. Entirely submitted in one cassette labeled C1. (/YJose Luis) Microscopic Description A. Two glass slides with [...] characteristics were determined by the Laboratory of [facility]. Immunohistochemistry assays have not been validated on decalcified tissue. Results should be interpreted with caution given the possibility of false negative results on decalcified specimens. They have not been cleared by the [place] Food and Drug Administration. The FDA has determined that such clearance or approval is not necessary. CPT Codes 28972?3, 81252 (more content not included)... Normal [facility] COVID-19 [facility] 02-20-2021 SARS-CoV-2 (COVID-19) RNA ELINOR+probe Ql (Unsp spec) Negative Normal Negative [facility] Comment on above: Order Comment: Healt hcare Worker?: N Result Comment: Testing for SARS-CoV-2 by RT-PCR This test was developed and its performance characteristics determined by [employer] ([employer]) and validated at the [facility]. This test has not been FDA [...] is terminated or revoked sooner. PERFORMED BY: [place] [address] PATHOLOGIST WOMEN'S MINISTRY DIRECTOR PRIYA WHITE M.D. Performed By: #### C OVID 19 [facility] #### [address] Vital Signs Date Time Vital Sign Value Performing Clinician Facility 02-09-2024 16:03-0500 Body mass index (BMI) [Ratio] 30.11 kg/m2 Diaferon DO Work Phone: [facility] 02-09-2024 16:03-0500 Body weight 89.81 kg SergeMD Work Phone: [facility] 02-09-2024 16:03-0500 Diastolic blood pressure 70 mm[Hg] SergeMD Work Phone: [facility] 02-09-2024 16:03-0500 Systolic blood pressure 118 mm[Hg] SergeMD Work Phone: [facility] 01-07-2024 15:50-0400 Body mass index (BMI) [Ratio] 29.97 kg/m2 Eddie Nova DO Work Phone: [facility] 01-07-2024 15:50-0400 Body weight 89.41 kg Eddie Nova DO Work Phone: [facility] 01-07-2024 15:50-0400 Diastolic blood pressure 72 mm[Hg] Eddie Nova DO Work Phone: [facility] 01-07-2024 15:50-0400 Systolic blood pressure 106 mm[Hg] Eddie Nova DO Work Phone: [facility] 03-26-2023 13:45-0500 Body height 164.47 cm Ben Rose Other [employer] Other 03-26-2023 13:45-0500 Body mass index (BMI) [Ratio] 29.6 kg/m2 Ben Rose Other [employer] Other 03-26-2023 13:45-0500 Body weight 80.06 kg Ben Rose Other [employer] Other 03-26-2023 13:45-0500 Diastolic blood pressure 74 mm[Hg] Ben Rose Other [employer] Other 03-26-2023 13:45-0500 Systolic blood pressure 120 mm[Hg] Ben Rose Other [employer] Other 06-14-2022 17:07-0500 Body weight 79.[address] EDDIE BHATT . [facility] Comment on above: Performed By: #### RPRQ #### [facility] [address] [place] [address] Dr. Jerry Samuel 03-08-2022 11:15-0500 Body height 164.47 cm Ben Rose Other [employer] Other 03-08-2022 11:15-0500 Body mass index (BMI) [Ratio] 29.01 kg/m2 Ben Rose Other [employer] Other 03-08-2022 11:15-0500 Body weight 78.47 kg Ben Rose Other [employer] Other 03-08-2022 11:15-0500 Diastolic blood pressure 73 mm[Hg] Ben Rose Other [employer] Other 03-08-2022 11:15-0500 Systolic blood pressure 113 mm[Hg] Ben Rose Other [employer] Other Encounters Encounter Date Encounter Type Care Provider Facility Start: 02-18-2024 End: 02-20-2024 Clinisync Result Encounter Eddie Perezo DO Work Phone: [facility] External Department Unsolicited Start: 02-18-2024 End: 02-20-2024 Clinisync Result Encounter Eddie Perezo DO Work Phone: [facility] External Department Unsolicited Start: 02-09-2024 End: 02-09-2024 Patient encounter procedure Eddie Perezo DO Work Phone: [facility] Healthcare Start: 02-09-2024 End: 02-09-2024 flow sheet Eddie Perezo DO Work Phone: [facility] Comment on above: Second trimester [...] 02-09-2024 End: 02-11-2024 External Result Encounter Kirsty Siu PA Work Phone: [facility] External Department Unsolicited Start: 01-08-2024 End: 01-08-2024 Clinisync Result Encounter Eddie Nova DO Work Phone: [facility] External Department Unsolicited Start: 01-08-2024 End: 01-08-2024 Clinisync Result Encounter Eddie Nova DO Work Phone: [facility] External Department Unsolicited Start: 01-07-2024 End: 01-07-2024 flow sheet Eddie Nova DO Work Phone: [facility] Comment on above: First trimester preg baldev; 12 weeks gestation of ; Nausea and vomiting during ; Dizziness; Constipation during in first trimester Start: 01-07-2024 End: 01-07-2024 ambulatory EDDIE NOVA Not Available Start: 01-07-2024 End: 01-07-2024 Bamboo flowsheet Eddie Nova DO Work Phone: [facility] Start: 01-07-2024 End: 01-07-2024 Bamboo flowsheet Eddie Nova DO Work Phone: [facility] Start: 12-17-2023 End: 12-17-2023 ambulatory KIRSTY SIU Not Available Start: 12-12-2023 End: 12-12-2023 ambulatory EDDIE NOVA Not Available Start: 03-27-2023 End: 03-27-2023 ambulatory GENTRY KIM Not Available Start: 03-26-2023 End: 03-26-2023 ambulatory Ben Rose Other [employer] Other Start: 03-26-2023 Patient encounter procedure Ben Elinorvitaliy [facility] Start: 03-05-2023 End: 03-05-2023 ambulatory EDDIE BHATT Not Available Start: 01-24-2023 End: 01-24-2023 ambulatory Ben Elinorvitaliy Other [employer] Other Start: 01-24-2023 Telephone encounter Ben Rose [facility] Start: 07-25-2022 End: 07-26-[address] EDDIE BHATT . Facility:[facility] Start: 07-02-2022 End: 07-03-[address] EDDIE BHATT . Facility:[facility] Start: 06-12-2022 End: 06-13-[address] EDDIE BHATT . Facility:[facility] Start: 06-04-2022 End: 06-04-[address] EDDIE BHATT . Facility:[facility] Start: 05-26-2022 End: 05-26-2022 ambulatory NNAMDI CASTLE . Facility:[facility] Start: 05-02-2022 End: 05-03-[address] EDDIE BHATT . Facility:[facility] Start: 04-19-2022 End: 04-20-2022 ambulatory KIRSTY SIU . Facility:[facility] Start: 04-04-2022 End: 04-05-[address] EDDIE BHATT . Facility:[facility] Start: 04-04-2022 End: 04-05-2022 ambulatory ANGELES MIKAEL Facility:[facility] Start: 03-08-2022 End: 03-08-2022 ambulatory Ben Rose Other [employer] Other Start: 03-08-2022 Patient encounter procedure Ben Elinorrigobertoaugusto [facility] Start: 03-07-2022 End: 03-08-[address] EDDIE BHATT . Facility:[facility] Start: 03-05-2022 End: 03-06-2022 ambulatory ANGELES MIKAEL Facility:[facility] Start: 02-13-2022 End: 02-14-2022 ambulatory ANGELES MIKAEL Facility:[facility] Start: 02-12-2022 End: 02-12-2022 ambulatory ANGELES MIKAEL Facility:[facility] Start: 02-12-2022 End: 02-13-2022 ambulatory ANGELES MIKAEL Facility:[facility] Start: 11-12-2021 End: 11-20-2021 ambulatory ANGELES MIKAEL Facility:[facility] Start: 11-06-2021 End: 11-06-2021 ambulatory Angeles A Mikael WOODYARD OPERATOR-C Facility:[facility] Start: 11-05-2021 End: 11-06-2021 ambulatory Angeles A Mikael WOODYARD OPERATOR-C Facility:[facility] Procedures Date Procedure Procedure Detail Performing Clinician Start: 02-18-2024 AFP, SERUM, OPEN SPI NA BIFIDA Eddie Nova DO Work Phone: Start: 02-09-2024 Urnls dip stick/tabl et rgnt non-auto w/o micrscp Eddie Nova DO Work Phone: Start: 02-09-2024 RECURRENT VAGINITIS (HTRX) Kirsty RAHMAN Work Phone: Start: 01-08-2024 ALL CBC WITH AUTO DIFF Eddie Nova DO Work Phone: Start: 01-07-2024 Urnls dip stick/tabl et rgnt non-auto w/o micrscp Eddie Nova DO Work Phone: Plan of Treatment Date Care Activity Detail Author Start: 03-10-2024 End: 03-10-2024 Alpha fetoprotein, maternal Alpha fetoprotein, maternal Lab Routine MSAFP (maternal serum alpha-fetoprotein) decreased Expected: 03/10/2024 (Approximate), Expires: 03/10/2024 [facility] Comment on above: Expected: 03/10/2024 (Approximate), Expires: 03/10/2024 Start: 03-08-2024 End: 03-08-2024 Patient encounter procedure 03/08/2024 3:50 PM EST Routine [facility] [address] [place] [address] Eddie Bhatt, DO [address] [place] [address] [facility] Start: 03-01-2024 End: 03-01-2024 Professional / ancillary services management 03/01/2024 1:30 PM EST Ancillary Procedure [facility] [address] [facility] [place] [id number] [facility] Start: 02-09-2024 End: 02-09-2024 Patient encounter procedure [facility] Comment on above: Arrived Start: 02-09-2024 End: 02-08-2025 US for US OB ANATOMY SINGLE W US OB CERVICAL LENGTH Imaging Routine Screening, , for anatomic survey Expected: 02/09/2024 (Approximate), Expires: 02/08/2025 [facility] Comment on above: Expected: 02/09/2024 (Approximate), Expires: 02/08/2025 Start: 01-07-2024 End: 01-07-2024 Patient encounter procedure 01/07/2024 3:10 PM EDT Routine [facility] [address] [facility] [place] [id number] Eddie Bhatt, [address], [place] [id number] Arrived [facility] Comment on above: Arrived CBC W Auto Different ial panel - Blood CBC and differential Lab Routine Nausea and vomiting during Dizziness Ordered: 01/07/2024 [facility] Work Phone: Comment on above: Ordered: 01/07/2024 CHLAMYDIA TRACHOMATI S (GENITO/STI) CHLAMYDIA TRACHOMATIS (GENITO/STI) Lab Routine Exposure to STD Ordered: 02/09/2024 [facility] Comment on above: Ordered: 02/09/2024 Neisseria gonorrhoea e DNA [Presence] in Unspecified specimen by ELINOR with probe detection Neisseria gonorrhea DNA probe, direct Lab Routine Exposure to STD Ordered: 02/09/2024 [facility] Comment on above: Ordered: 02/09/2024 SURESWAB(R) ADVANCED VAGINITIS PLUS, TMA SURESWAB(R) ADVANCED VAGINITIS PLUS, TMA Pathology and Cytology Routine Exposure to STD Ordered: 02/09/2024 [facility] Work Phone: Comment on above: Ordered: 02/09/2024 Immunizations Immunization Date Immunization Notes Care Provider Michael albright 11-08-2014 human papilloma viru s vaccine, quadrivalent Ben Rose Other [employer] Other Payers Date Payer Category Payer [facility] BCBS Member Subscriber Plan / Payer (Effective 2022-Present) Name: Will Shay Member ID: [id number] Relation to Subscriber: Spouse Name: JUAN J SHAY V Subscriber ID: [id number] Date of : 1994 Address: [address] [place] [address] Payer ID: Not on file Type: Not on file Address: [id number] [place] [id number]. [id number] 2022 Unknown [facility] [id number] 2022-Present [id number] [place], [place] [address] [id number]. [id number] 2022 Unknown [id number] 2021 Unknown [id number] 1995 Unknown [id number] 2.16.840.1.517991.3.579.2.71 8 1996 Unknown [id number] 2.16.840.1.371551.3.579.2.71 8 1996 Unknown [id number] 2.16.840.1.716245.3.579.2.59 3 1996 Unknown [id number] 2.16.840.1.523972.3.579.2.59 3 1996 Unknown [id number] 2.16.840.1.855187.3.579.2.59 3 1996 Unknown [id number] 2.16.840.1.509900.3.579.2.59 3 1996 Unknown [id number] 2.16.840.1.433709.3.579.2.59 3 1996 Unknown [id number] 2.16.840.1.645810.3.579.2.59 3 1996 Unknown [id number] 2.16.840.1.507279.3.579.2.59 3 1996 Unknown [id number] 2.16.840.1.462382.3.579.2.59 3 1996 Unknown [id number] 2.16.840.1.752391.3.579.2.59 3 1996 Unknown [id number] 2.16.840.1.370898.3.579.2.59 3 1996 Unknown [id number] 2.16.840.1.604386.3.579.2.59 3 1996 Unknown [id number] 2.16.840.1.154918.3.579.2.59 3 1996 Unknown [id number] 2.16.840.1.986726.3.579.2.59 3 1996 Unknown [id number] 2.16.840.1.613210.3.579.2.59 3 1996 Unknown [id number] 2.16.840.1.670272.3.579.2.59 3 1996 Unknown [id number] 2.16.840.1.341565.3.579.2.12 59 1996 Unknown [id number] 2.16.840.1.157204.3.579.2.12 59 1996 Unknown [id number] 2.16.840.1.050839.3.579.2.12 59 1996 Unknown [id number] 2.16.840.1.325451.3.579.2.12 59 1996 Unknown [id number] 2.16.840.1.288167.3.579.2.12 59 1996 Unknown [id number] 2.16.840.1.748596.3.579.2.12 59 1959 Self-pay 1959 Unknown [id number] 2.16.840.1.109765.19 1959 Unknown [id number] 2.16.840.1.231742.19 1959 Unknown [id number] 1959 Unknown [id number] Unknown [id number] 2.16.840.1.481370.3.579.2.59 3 Social History Date Type Detail Facility Unknown if ever smoked [facility] [email or web address] Other Start: 03-27-2023 Sex Assigned At [address] [facility] [email or web address] Other Start: 09-17-2022 Tobacco smoking stat [facility] Never smoked tobacco [facility] Start: 09-17-2022 Tobacco use and exposure Smokeless tobacco non-user [facility] Start: 12-17-2023 End: 01-07-2024 Alcoholic beverage intake Lifetime non-drinker (finding) [facility] Start: 03-27-2023 History of Social function [facility] Start: 10-27-2023 [facility] Start: 1995 Sex assigned at Not on file [facility] History of Present illness Narrative 02-09-2024 Leah Raman MA - 02/09/2024 3:10 PM EST Note Date [...] infection 09/13/2022 Adjustment disorder with depressed mood ([facility]/HCC) 09/13/2022 Allergic rhinitis 09/13/2022 Anxiety 09/13/2022 Arthralgia of multiple joints 09/13/2022 Dysmenorrhea 09/13/2022 Family history of thyroid disease 09/13/2022 Hematochezia 09/13/2022 Low back pain 09/13/2022 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 Exam conducted with a structures technician present. Vitals: Estimated body mass index is [...] of: Kirsty Rico documented in this encounter [facility] History of Present illness Narrative 01-07-2024 Carmen [...] infection 09/13/2022 Adjustment disorder with depressed mood (CMS/HCC) 09/13/2022 Allergic rhinitis 09/13/2022 Anxiety 09/13/2022 Arthralgia of multiple joints 09/13/2022 Dysmenorrhea 09/13/2022 Family history of thyroid disease 09/13/2022 Hematochezia 09/13/2022 Low back pain 09/13/2022 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CMS/HCC) 09/13/2022 Subcutaneous nodule 09/13/2022 Tinea pedis 09/13/2022 Resolved Ambulatory Problems Diagnosis Date Noted No Resolved Ambulatory Problems Past Medical History: Diagnosis Date Depression (CMS/HCC) HISTORY PAST MEDICAL HISTORY SOCIAL HISTORY Past Medical History: Diagnosis Date Anxiety Depression ([facility]) Social History Tobacco Use Smoking status: Never [...] nursing note reviewed. Exam conducted with a structures technician present. Vitals: Estimated body mass index is [...] or undercooked meat, and stay away from [facility]. Patient has been consulted regarding any further do's and don'ts of . Patient voiced understanding and all questions and concerns were answered. Orders Placed This Encounter Procedures Urine dip Follow Up: Patient is to return in 4 weeks for routine OB appointment. Documented by Carmen Foster LPN on behalf of: Kirsty Siu PA-C documented in this encounter [facility] Evaluation note 03-26-2023 Note Date & Type [...] call office if she has no improvement [employer] Other Evaluation note 01-24-2023 Note Date & Type Note Facility 01-24-2023 Evaluation note Encounter Date Diagnosis Assessment Notes Jan, Epigastric burning sensation (ICD-10 - R10.13) [employer] Other Evaluation note 03-08-2022 Note Date & Type Note Facility 03-08-2022 Evaluation note Encounter Date Diagnosis Assessment Notes Mar, Nausea (ICD-10 - R11.0) Mar, Epigastric burning sensation (ICD-10 - R10.13) 02 Dec, 2022 Lower abdominal pain (ICD-10 - R10.30) Mar, Bloating (ICD-10 - R14.0) Mar, Functional dyspepsia (ICD-10 - K30) Mar, GERD (gastroesopha geal reflux disease) (ICD-10 - K21.9) CONTINUE PANTOPRAZOLE 40 MG DAILY CONTINUE LEVSIN NEEDED RTO 1 YR [employer] Other Evaluation note Note Date & Type Note Facility Evaluation note Diagnosis First trimester state, incidental 12 weeks gestation of Nausea and vomiting during Dizziness Dizziness and giddiness Constipation during in first trimester documented in this encounter [facility] Evaluation note Note Date & Type Note Facility Evaluation note Diagnosis Second trimester state, incidental 17 weeks gestation of Well woman exam with routine gynecological exam Routine gynecological examination Exposure to STD MSAFP (maternal serum alpha-fetoprotein) decreased Abnormal findings on screening Screening, , for anatomic survey Encounter for anatomic survey documented in this encounter [facility] History general Narrative - Reported Note Date & Type Note Facility History general Narrative - Reported Type Medical History scoliosis Medical History hx of mono Surgical History [place] teeth x4 [employer] Other History general Narrative - Reported Note Date & Type Note Facility History general Narrative - Reported Type Medical History scoliosis Medical History hx of mono Surgical History [place] teeth x4 Surgical History C section [employer] Other Summary Purpose Family History No Family History Records FoundNo Family History Records FoundNo Family History Records FoundNo Family History Records Found Advance Directives No Advanced Directives Records FoundNo Advanced Directives Records FoundNo Advanced Directives Records FoundNo Advanced Directives Records Found Additional Source Comments INFORMATION SOURCE (unrecogn ized section and content) DATE CREATED AUTHOR 02/27/2021 [facility] DATE CREATED AUTHOR AUTHOR'S ORGANIZ ATION 07/24/2022 [facility] DATE CREATED AUTHOR AUTHOR'S ORGANIZ ATION [facility] DATE CREATED AUTHOR AUTHOR'S ORGANIZ ATION 02/10/2024 [facility] EPIC REASON FOR VISIT (unrecogniz [...] BE BASED ON THE PRIMARY CLINICAL RECORDS. [facility]. provides no warranty or guarantee of the accuracy or completeness of information in this document.
== END 2024-03-01 13:27 | disposition home or self-care (01) ==
LOC: NOMS 13:26
PROVIDERS: PCP Nurse Practitioner Family; Visit Provider Obstetrics & Gynecology
DX: Z34.92 Encounter for supervision of normal pregnancy, unspecified, second trimester (principal); Z36.89 Encounter for other specified antenatal screening; Z3A.19 19 weeks gestation of pregnancy
CPT/HCPCS: 76805; 76817

== ENCOUNTER 2024-04-10 07:32 | Outpatient (OUT) | payer BC, SELFPAY ==
[2024-04-10 08:53] LABS: Basophils Percent Auto 0.5 % (0.2-2.0); Eosinophils Percent Auto 0.5 % (0.9-7.0); Hematocrit 33.7 % (36.0-48.0); Hemoglobin 10.8 g/dL (12.0-16.0); Immature Granulocytes Abs Auto 0.04 10^3/uL (0.00-0.03); Immature Granulocytes Pct Auto 0.6 % (0.0-0.5); Lymphocytes Absolute Auto 1.3 10^3/uL (1.2-3.8); Lymphocytes Percent Auto 20.2 % (20.5-60.0); Mean Corpuscular Hemoglobin 26.9 pg (26.7-34.0); Mean Corpuscular Volume 83.8 fL (81.0-99.0); Mean Platelet Volume 10.3 fL (9.5-13.5); Monocytes Absolute Auto 0.5 10^3/uL (0.3-0.8); Monocytes Percent Auto 8.6 % (1.7-12.0); Neutrophils Absolute Auto 4.4 10^3/uL (1.4-6.5); Neutrophils Percent Auto 69.6 % (43.0-75.0); Platelet Count 200 10^3/uL (150-450); Red Blood Count 4.02 10^6/uL (4.20-5.40); Red Cell Distribution Width 12.9 % (11.0-15.0); White Blood Count 6.3 10^3/uL (4.0-11.0)
[2024-04-10 09:20] LABS: Glucose 1 Hour 128 mg/dL (<130)
== END 2024-04-10 07:33 | disposition home or self-care (01) ==
LOC: LAB 07:33
PROVIDERS: PCP Nurse Practitioner Family; Visit Provider Physician Assistant
DX: Z34.92 Encounter for supervision of normal pregnancy, unspecified, second trimester (principal); Z3A.25 25 weeks gestation of pregnancy
CPT/HCPCS: 36415; 82950; 85025

== ENCOUNTER 2024-04-12 11:15 | Outpatient (OUT) | payer BC, SELFPAY ==
--- NOTE | 2024-04-12 | ECG_ITS ---
[facility] Test Date: 2024-04-12 Pat Name: CARLOS ADAMS Department: Room: - Gender: Female Foundation Maker: : 1995 Requested By: Britt Harris Order Number: [id number] Reading MD: LUIZ CHANG Measurements Intervals [place] Rate: 81 P: 70 TX: 150 QRS: 71 QRSD: 82 T: 44 QT: 356 QTc: 415 Interpretive Statements SINUS RHYTHM LOW QRS VOLTAGE IN PRECORDIAL LEADS [QRS DEFLECTION < 1.0 mV IN CHEST LEADS] NONSPECIFIC T-WAVE ABNORMALITY Compared to ECG 11/13/2023 09:06:11 Low QRS voltage now present T-wave abnormality now present Electronically Signed On 04-12-2024 20:27:39 EST by LUIZ CHANG
== END 2024-04-12 11:16 | disposition home or self-care (01) ==
LOC: CARD 11:16
PROVIDERS: PCP Nurse Practitioner Family; Visit Provider Nurse Practitioner Family
DX: R07.89 Other chest pain (principal)
CPT/HCPCS: 93005

== ENCOUNTER 2024-06-21 20:32 | Outpatient (REF) | payer BC, SELFPAY ==
--- OUTSIDE RECORDS SUMMARY | 2024-06-21 20:36 | XMS_ITS | CCD ---
Author Organization [facility] Care Team Providers Care Diver'S Tender Name Role Phone Ben Rose Unavailable Mikael ELEVATING GRADER OPERATOR-C, Angeles A Admitting Unavailable Mikael ELEVATING GRADER OPERATOR-C, Angeles A Attending Unavailable Mikael ELEVATING GRADER OPERATOR-C, Angeles A Primary Care Unavailable Mikael ELEVATING GRADER OPERATOR-C, Angeles A Attending Unavailable Mikael ELEVATING GRADER OPERATOR-C, Angeles A Primary Care Unavailable NOVA [...] NOVA ., DR MORGAN Attending Unavailable MIKAEL, ANEGLES Primary Care Unavailable NOVA ., DR MORGAN [...] Provider Unavailabl e NOVA, EDDIE Attending Unavailable SHERRON, KIRSTY Attending Unavailable SHERRON, KIRSTY Referring Unavailable NOVA, EDDIE Attending Unavailable NOVA, EDDIE Attending Unavailable SHERRON, KIRSTY Attending Unavailable NOVA, EDDIE Attending Unavailable NOVA, EDDIE Attending Unavailable NOVA, EDDIE Attending Unavailable SHERRON, KIRSTY Attending Unavailable Allergies Allergy Classification Reported Allergen(s) Allergy Type Date of Onset Reaction(s) Facility (3 sources) Penicillin G Drug Allergy Unknown IMN Other (1 source) busPIRone; Translations: [buspirone hcl] Drug Allergy [facility] Repository (1 source) Coconut extract; Translations: [coconut] Drug Allergy [facility] Repository (20 sources) Penicillins; Translations: [penicillins] Propensity to adverse reactions to drug (disorder) 3 Rash [facility] Repository (1 source) Amoxicillin Drug Allergy [facility] Repository (1 source) Penicillin Drug Allergy [facility] Repository (20 sources) busPIRone Drug Allergy 3 [facility] Work Phone: (20 sources) Minocycline Drug Allergy 3 Hives [facility] Medications Current Medications Medication Drug Class(es) Dates Sig (Normalized) Sig (Original) azithromycin 250 mg oral tablet (20 sources) Macrolide Antimicrobial Start: 03-27-2023 End: 05-11-2024 azithromycin (Zithromax Z-Fredrick) 250 MG tablet Indications: COVID-19 Take as directed 6 tablet 03/27/2023 05/11/2024 Discontinued 12 hr buPROPion hydrochloride 150 mg extended release oral tablet (19 sources) Aminoketone Start: 03-15-2024 End: 06-13-2024 take 1 tablet by mouth every twelve hours in the morning buPROPion SR (Wellbutrin SR) 150 MG 12 hr tablet Indications: Anxiety Take 1 tablet (150 mg) by mouth in the morning and 1 tablet (150 mg) before bedtime. Do not crush, chew, or split.. 180 tablet 1 03/15/2024 06/13/2024 Active Start: 02-18-2024 End: 02-17-2025 take 1 tablet by mouth once daily buPROPion XL (Wellbutrin XL) 150 MG 24 hr tablet Indications: Anxiety, generalized (CMS/HCC) Take 1 tablet (150 mg) by mouth Daily Do not crush, chew, or split. 30 tablet 11 02/18/2024 02/17/2025 Active Cetirizine (2 sources) Histamine-1 Receptor Antagonist ZyrTEC Allergy Active citalopram 10 mg oral tablet (20 sources) Serotonin Reuptake Inhibitor Start: End: 6 take 1 tablet by mouth at bedtime citalopram (CeleXA) 10 MG tablet Indications: Anxiety Take 1 tablet (10 mg) by mouth at bedtime 30 tablet 11 05/24/2024 05/24/2025 Active Start: 12-15-2023 End: 12-14-2024 take 1 tablet by mouth in the morning citalopram (CeleXA) 20 MG tablet Indications: Anxiety, generalized (CMS/HCC) Take 1 tablet (20 mg) by mouth in the morning. 30 tablet 11 12/15/2023 12/14/2024 Active Start: 06-11-2023 take 1 tablet by gia th once daily in the morning citalopram (CeleXA) 20 MG tablet Indications: Anxiety, generalized (CMS/HCC) TAKE ONE TABLET BY MOUTH ONCE DAILY IN THE MORNING 30 tablet 5 06/11/2023 Active esomeprazole 40 mg delayed release oral capsule (3 sources) Proton Pump Inhibitor Start: 10-29-2023 take 1 capsule by mouth once daily esomeprazole (NexIUM) [address] capsule TAKE ONE CAPSULE BY MOUTH ONCE DAILY FOR 30 DAYS 10/29/2023 Active hydrOXYzine hydrochloride 10 mg oral tablet (2 sources) Antihistamine Start: 06-07-2024 take 1 tablet by mouth every six hours as needed for anxiety and anxiety hydrOXYzine HCl (Atarax) 10 MG tablet Indications: Anxiety Take 1 tablet (10 mg) by mouth every 6 (six) hours if needed for itching for up to 30 doses 30 tablet 06/07/2024 Active hyoscyamine sulfate 0.125 mg sublingual tablet (2 sources) Start: 12-04-2021 take 1 tablet under the tongue four times daily as needed Hyoscyamine Sulfate 0.125 MG 1 tablet under the tongue and allow to dissolve as needed Sublingual FOUR TIMES DAILY NEEDED for 30 days PRN 30 Nov, 2021 Active loratadine 10 mg oral tablet (1 source) take 1 tablet by mouth every twenty-fou r hours Claritin 10 MG 1 tablet Orally Once a day Active methylPREDNISolone (20 sources) Corticosteroid Start: 03-27-2023 End: 05-11-2024 methylPREDNISolone (Medrol Dospak) 4 MG tablets Indications: COVID-19 As directed 21 tablet 03/27/2023 05/11/2024 Discontinued Start: 03-27-2023 methylPREDNISo lone (Medrol Dospak) 4 MG tablets Indications: COVID-19 As directed 21 tablet 03/27/2023 Active metoclopramide 10 mg oral tablet (20 sources) Dopamine-2 Receptor Antagonist Start: 04-14-2024 End: 08-03-2024 metoclopramide (Reglan) 10 MG tablet Indications: Heartburn during in second trimester Take 1 tablet (10 mg) by mouth in the morning and 1 tablet (10 mg) at noon and 1 tablet (10 mg) in the evening. Take before meals. Take 1 tablet by mouth 30 minutes prior to meals 3 times daily as needed for nausea.. 90 tablet 2 05/05/2024 08/03/2024 Active Start: 12-11-2023 End: 04-27-2024 metoclopramide (Reglan) 10 M G tablet Indications: Nausea and vomiting in Take 1 tablet (10 mg) by mouth in the morning and 1 tablet (10 mg) at noon and 1 tablet (10 mg) in the evening. Take before meals. Take 1 tablet by mouth 30 minutes prior to meals 3 times daily as needed for nausea.. 90 tablet 3 12/11/2023 04/27/2024 Discontinued (Other) nitrofurantoin, macrocrystals 25 mg / nitrofurantoin, monohydrate 75 mg oral capsule (3 sources) Nitrofuran Antibacterial Start: 12-12-2023 End: 12-19-2023 take 1 capsule by mouth in the morning nitrofurantoin, macrocrystal-monohydrate, (Macrobid) 100 MG capsule Indications: UTI symptoms Take 1 capsule (100 mg) by mouth in the morning and 1 capsule (100 mg) before bedtime. Do all this for 7 days. 14 capsule 12/12/2023 12/19/2023 Active ondansetron 4 mg disintegrating oral tablet (16 sources) Serotonin-3 Receptor Antagonist Start: 04-19-2024 take 1 tablet by mouth every eight hours as needed for nausea ondansetron ODT (Zofran-ODT) 4 MG disintegrating tablet Take 4 mg by mouth every 8 (eight) hours if needed for nausea 04/19/2024 Active Start: 01-26-2024 End: 02-25-2024 take 1 tablet by mouth every six hours for nausea ondansetron ODT (Zofran-ODT) 4 MG disintegrating tablet Indications: Nausea and vomiting during Take 1 tablet (4 mg) by mouth every 6 (six) hours if needed for nausea or vomiting 30 tablet 11 01/26/2024 02/25/2024 Start: 11-17-2023 End: 12-17-2023 take 1 tablet by mouth every six hours for nausea ondansetron ODT (Zofran-ODT) 4 MG disintegrating tablet Indications: Nausea and vomiting in Take 1 tablet (4 mg) by mouth every 6 (six) hours if needed for nausea or vomiting 30 tablet 3 11/17/2023 12/17/2023 Active pantoprazole 40 mg delayed release oral tablet (20 sources) Proton Pump Inhibitor Start: 02-28-2021 take 1 tablet by mouth every twenty-four hours Pantoprazole Sodium 40 MG 1 tablet Orally Once a day for 30 days Feb, Active Probiotic (3 sources) Probiotic EVERY OTHER MONTH Active promethazine hydrochloride 12.5 mg oral tablet (20 sources) Phenothiazine Start: 11-24-2023 End: 05-11-2024 take 1 tablet by mouth every six [...] as needed for nausea. 30 tablet 11/24/2023 05/11/2024 Discontinued Completed/Discontinued Medications Medication Drug Class(es) Dates Sig (Normalized) Sig (Original) docusate sodium 100 mg oral capsule (20 sources) Start: 01-07-2024 End: 01-06-2025 take 1 capsule by mouth twice daily as needed for constipation docusate sodium (Colace) 100 MG capsule Indications: Constipation during in first trimester Take 1 capsule (100 mg) by mouth 2 (two) times a day as needed for constipation 60 capsule 5 01/07/2024 06/07/2024 Discontinued Misc. Devices (Medela Double Breast Pump) misc (20 sources) Start: 11-15-2022 End: 04-27-2024 Misc. Devices (Medela Double Breast Pump) misc Indications: Mother currently breast-feeding 1 Device if needed (Use for based on desired schedule). 1 each 11/15/2022 04/27/2024 Discontinued (Other) Start: 11-15-2022 Misc. Devices (Medela Double Breast Pump) misc Indications: Mother currently breast-feeding 1 Device if needed (Use for based on desired schedule). 1 each 11/15/2022 Active omeprazole 20 mg delayed release oral capsule (15 sources) Proton Pump Inhibitor Start: 02-02-2024 End: 04-27-2024 take 1 capsule by mouth before mealtime omeprazole (PriLOSEC) [address] capsule Indications: Gastroesophageal Reflux Disease , Heartburn Take 1 capsule (20 mg) by mouth in the morning. Take before meals. Do not crush or chew.. 30 capsule 11 02/02/2024 04/27/2024 Discontinued (Other) Problems Active Problems Problem Classification Problem Date Documented Da te Episodic/Chronic Abdominal pain (3 sources) Epigastric pain; Translations: [Lower abdominal pain, unspecified] Episodic Adjustment disorders (20 sources) Adjustment disorder with depressed mood; Translations: [Adjustment disorder with depressed mood] Onset: 3 09-13-2022 Chronic Anxiety disorders (20 sources) Anxiety; Translations: [Anxiety disorder, unspecified] Onset: 3 09-13-2022 Chronic Conditions associated with dizziness or vertigo (7 sources) Dizziness and giddiness; Translations: [Dizziness] Onset: 3 Episodic Esophageal disorders (20 sources) Gastroesophageal reflux disease; Translations: [Gastro-esophageal reflux [...] (HPV)] Onset: 2 02-09-2024 Episodic Menstrual disorders (20 sources) Irregular menstruation, unspecified; Translations: [Dysmenorrhea, unspecified] Onset: 2 Chronic Nausea and vomiting (1 source) Nausea Episodic Other acquired deformities (4 sources) Scoliosis, unspecified; Translations: [SCOLIOSIS UNSPECIFIED] Onset: 2 Chronic Other acquired deformities (20 sources) Acquired scoliosis; Translations: [Scoliosis, unspecified] Onset: [...] on screening of mother] 02-09-2024 Episodic Other complications of (2 sources) size does not accord with dates; Translations: [Uterine size-date discrepancy, unspecified trimester] 05-11-2024 Episodic Other disorders of stomach and duodenum [...] unspecified Episodic Other and delivery including normal (20 sources) Encounter for supervision of normal , unspecified, unspecified trimester; Translations: [Encounter for supervision of normal first , first trimester] Onset: 3 Episodic Other screening for suspected conditions (not mental disorders or infectious disease) (15 sources) Encounter for screening for diabetes mellitus; Translations: [Encounter for screening, unspecified] Onset: 2 Episodic Other upper respiratory disease (20 sources) Allergic rhinitis; Translations: [Allergic rhinitis, unspecified] [...] [17 weeks gestation of ] 02-09-2024 Episodic Residual codes; unclassified (2 sources) Gestation period, 21 weeks; Translations: [21 weeks gestation of ] 03-08-2024 Episodic Residual codes; unclassified (15 sources) Gestation period, 25 weeks; Translations: [25 weeks gestation of ] Onset: 4 04-05-2024 Episodic Residual codes; unclassified (2 sources) Gestation period, 28 weeks; Translations: [28 weeks gestation of ] 04-27-2024 Episodic Residual codes; unclassified (2 sources) Gestation period, 30 weeks; Translations: [30 weeks gestation of ] 05-11-2024 Episodic Residual codes; unclassified (2 sources) Gestation period, 32 weeks; Translations: [32 weeks gestation of ] 05-24-2024 Episodic Residual codes; unclassified (2 sources) Gestation period, 34 weeks; Translations: [34 weeks gestation of ] 06-07-2024 Episodic Syncope (1 source) Syncope and collapse; Translations: [SYNCOPE AND COLLAPSE] Onset: 3 Episodic Unclassified (1 source) LOW BACK PAIN, UNSPECIFIED; Translations: [LOW BACK PAIN, UNSPECIFIED] Onset: 2 Past or Other Problems Problem Classification Problem Date Documented Da te Episodic/Chronic Gastrointestinal hemorrhage (20 sources) Blood-tinged feces; Translations: [Melena] Onset: 09-13-2022 09-13-2022 Episodic Mycoses (20 sources) Opportunistic mycosis; 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 09-13-2022 Episodic Other connective tissue disease (1 source) Pain in right leg; Translations: [PAIN IN RIGHT LEG] Onset: 11-12-2021 Episodic Other connective tissue disease (1 source) Abnormal posture; Translations: [ABNORMAL POSTURE] Onset: 11-15-2021 Episodic Other non-traumatic joint disorders (20 sources) Multiple joint pain; Translations: [Pain in unspecified joint] Onset: 09-13-2022 09-13-2022 Episodic Other skin disorders (20 sources) Acne; Translations: [Acne, unspecified] Onset: 09-13-2022 09-13-2022 Episodic Other skin disorders (20 sources) Subcutaneous nodule; Translations: [Localized swelling, mass and lump, unspecified] Onset: 09-13-2022 09-13-2022 Episodic Other upper respiratory infections (20 sources) Acute upper respiratory infection; Translations: [Acute upper respiratory infection, unspecified] Onset: 09-13-2022 09-13-2022 Episodic Ovarian cyst (1 source) Other ovarian cyst, right side; Translations: [OTHER OVARIAN CYST RIGHT SIDE] Onset: 02-18-2022 Episodic Residual codes; unclassified (1 source) 9 weeks gestation of ; Translations: [9 WEEKS GESTATION OF ] Onset: 04-11-2022 Episodic Residual codes; unclassified (20 sources) FH: Thyroid disorder; Translations: [Family history of other endocrine, nutritional and metabolic diseases] Onset: 09-13-2022 09-13-2022 Episodic Spondylosis; intervertebral disc disorders; other back problems (20 sources) Low back pain; Translations: [Low back pain] Onset: 09-13-2022 09-13-2022 Episodic Results Test Name Value Interpretation Reference Range Facility Urinalysis macro (dipstick) panel (U)on 06-07-2024 Bilirubin, UA Negative Negative - 4(70) +++ mg/dL [facility] Blood, UA Negative Negative - 50 Daniel/mcL [facility] Clarity, UA Clear [facility] Color, UA Colorless [facility] Glucose, UA Positive Negative - 2000(110) ++++ mg/dL [facility] Comment on above: 100 Interpretation and review of laboratory results Abnormal [facility] Ketones, UA Negative Negative - 160(16) ++++ mg/dL [facility] Leukocytes, UA Negative Negative - 500+++ Gavin/mcL [facility] Nitrite, UA Negative Negative - Positive [facility] pH, UA 6 5 - 9 [facility] Protein, UA Negative Negative - 2000(20) ++++ mg/dL [facility] Spec Grav, UA 1.005 1 - 1.03 [facility] Urobilinogen, UA 0.2 0.2 - 12 mg/dL Formerly [facility], 1928–1983 US OB FOLLOW UP TRANSABDOMIN AL APPROACHon 05-24-2024 US OB FOLLOW UP TRANSABDOMINAL APPROACH FINDINGS: No prior exams. A single, live intrauterine is present with normal cardiac rate of 134 beats per minute. Normal activity and amniotic fluid volume. Amniotic fluid index is 12 cm. Morphology is grossly normal. The cervix is not visualized due to positioning. The current sonographic age is 32 weeks and 5 days, based on the following measurements: BPD 7.6 cm (30 weeks, 4 days) Head Circumference 30.8 cm (34 weeks, 3 days) Abdominal Circumference 28.9 cm (33 weeks, 0 days) Femur Length 6.3 cm (32 weeks, 4 days) Presentation Cephalic Weight (g) by Percentile 65 % * These measurements result in an estimated date of delivery of July 14, 2024 The current estimated weight is 2048 grams IMPRESSION: Single, live intrauterine , current sonographic age of 32 weeks and 5 days, with an estimated date of delivery of July 14, 2024 * Estimated Weight (g) by Percentile is based upon an accurate estimated age based on last menstrual period. TRANSCRIBED BY: ELECTRONICALLY SIGNED BY: Ricardo Awan MD Normal Not Available Comment on above: Order Comment: US OB SCAN FOR GROWTH Estimated Date of Delivery: 07/19/24 Gestational Age as of 05/11/2024: 30w1d Urinalysis macro (dipstick) panel (U)on 05-24-2024 Bilirubin, UA Negative Negative - 4(70) +++ mg/dL [facility] Blood, UA Positive Negative - 50 Daniel/mcL [facility] Comment on above: TRACE-INTACT Clarity, UA Clear [facility] Color, UA Yellow [facility] Glucose, UA Negative Negative - 2000(110) ++++ mg/dL [facility] Interpretation and review of laboratory results Abnormal [facility] Ketones, UA Negative Negative - 160(16) ++++ mg/dL [facility] Leukocytes, UA Negative Negative - 500+++ Gavin/mcL [facility] Nitrite, UA Negative Negative - Positive [facility] pH, UA 6 5 - 9 [facility] Protein, UA Negative Negative - 1999(20) ++++ mg/dL [facility] Spec Grav, UA 1.005 1 - 1.03 [facility] Urobilinogen, UA 0.2 0.2 - 12 mg/dL [facility], [facility] Urinalysis macro (dipstick) panel (U)on 05-11-2024 Bilirubin, UA Negative Negative - 4(70) +++ mg/dL [facility] Blood, UA Negative Negative - 50 Daniel/mcL [facility] Clarity, UA Clear [facility] Color, UA Yellow [facility] Glucose, UA Negative Negative - 1999(110) ++++ mg/dL [facility] Interpretation and review of laboratory results Abnormal [facility] Ketones, UA Negative Negative - 160(16) ++++ mg/dL [facility] Leukocytes, UA Trace Negative - 500+++ Gavin/mcL [facility] Nitrite, UA Negative Negative - Positive [facility] pH, UA 6.5 5 - 9 [facility] Protein, UA Negative Negative - 1999(20) ++++ mg/dL [facility] Spec Grav, UA 1.02 1 - 1.03 [facility] Urobilinogen, UA 0.2 0.2 - 12 mg/dL [facility], [facility] Urinalysis macro (dipstick) panel (U)on 04-27-2024 Bilirubin, UA Negative Negative - 4(70) +++ mg/dL [facility] Blood, UA Negative Negative - 50 Daniel/mcL [facility] Clarity, UA Clear [facility] Color, UA Yellow [facility] Glucose, UA Negative Negative - 1999(110) ++++ mg/dL [facility] Interpretation and review of laboratory results Abnormal [facility] Ketones, UA Negative Negative - 160(16) ++++ mg/dL [facility] Leukocytes, UA Trace Negative - 500+++ Gavin/mcL [facility] Nitrite, UA Negative Negative - Positive [facility] pH, UA 7 5 - 9 [facility] Protein, UA Negative Negative - 1999(20) ++++ mg/dL [facility] Spec Grav, UA 1.01 1 - 1.03 [facility] Urobilinogen, UA 0.2 0.2 - 12 mg/dL [facility]ly [facility], [facility] ALL CBC WITH AUTO DIFFon BASOPHILS ABSOLUTE AUTO 0 [facility] Basophils/100 WBC (Bld) 0.5 % 0.2 - 2.0 % [facility] Eosinophils/100 WBC (Bld) 0.5 % Low 0.9 - 7.0 % [facility] Erythrocyte distribution width (RBC) [Ratio] 12.9 % 11.0 - 15.0 % [facility] Hematocrit (Bld) [Volume fraction] 33.7 % Low 36.0 - 48.0 % [facility] Hemoglobin (Bld) [Mass/Vol] 10.8 g/dL Low 12.0 - 16.0 g/dL [facility] IMMATURE GRANULOCYTES ABS AUTO 0.04 High [facility] Immature granulocytes/100 WBC (Bld) 0.6 % High 0.0 - 0.5 % [facility] Interpretation and review of laboratory results Abnormal [facility] LYMPHOCYTES ABSOLUTE AUTO 1.3 [facility] Lymphocytes/100 WBC (Bld) 20.2 % Low 20.5 - 60.0 % [facility] MCH (RBC) [Entitic mass] 26.9 pg 26.7 - 34.0 pg [facility] MCHC (RBC) [Mass/Vol] 32 g/dL 29.9 - 35.2 g/dL [facility] MCV (RBC) [Entitic vol] 83.8 fL 81.0 - 99.0 fL [facility] MONOCYTES ABSOLUTE AUTO 0.5 [facility] Monocytes/100 WBC (Bld) 8.6 % 1.7 - 12.0 % [facility] NEUTROPHILS ABSOLUTE AUTO 4.4 [facility] Neutrophils/100 WBC (Bld) 69.6 % 43.0 - 75.0 % [facility] Platelet mean volume (Bld) [Entitic vol] 10.3 fL 9.5 - 13.5 fL [facility] TBH EO # 0 [facility] TBH PLT 200 [facility] TB RBC 4.02 Low [facility] TBH WBC 6.3 [facility] Urinalysis macro (dipstick) panel (U)on 04-05-2024 Bilirubin, UA Negative Negative - 4(70) +++ mg/dL [facility] Blood, UA Negative Negative - 50 Daniel/mcL [facility] Clarity, UA Clear [facility] Color, UA Yellow [facility] Glucose, UA Negative Negative - 1999(110) ++++ mg/dL [facility] Interpretation and review of laboratory results Normal [facility] Ketones, UA Negative Negative - 160(16) ++++ mg/dL [facility] Leukocytes, UA Negative Negative - 500+++ Gavin/mcL [facility] Nitrite, UA Negative Negative - Positive [facility] pH, UA 5.5 5 - 9 [facility] Protein, UA Negative Negative - 2000(20) ++++ mg/dL [facility] Spec Grav, UA 1.025 1 - 1.03 [facility] Urobilinogen, UA 0.2 0.2 - 12 mg/dL [facility]ly [facility], [facility] AFP, SERUM, OPEN SPINA BIFID Aon 02-20-2024 AFP MOM 0.72 . [facility] AFP VALUE 27.2 ng/mL . [facility] COMMENT: Comment . [facility] Comment on above: Tiffanie Petersen , Ph.D., [facility] Director References: Available Upon Request. Multiples Of Median Cutoffs For AFP Elevations Patrick 2.5 Black 2.8 IDD 2.0 Twins 4.5 Abbreviation Definitions IDD - Insulin Dep Diabetes OSBR - Open Spina Bifida Risk For further inquiries contact [employer] [facility] at [phone]. This test was developed and its performance characteristics determined by [employer] It has not been cleared or approved by the Food and Drug Administration. Performed at: [facility] [address], [place] [id number] Staffing Analyst: Tor Real [facility], Phone: [phone] GEST. AGE ON COLLECTION DATE 18.3 . weeks [facility] GESTAT. AGE BASED ON LMP . [facility] Comment on above: Recalculations are n ot recommended when gestational dating by LMP and ultrasound are within 10 days. INSULIN DEP DIABETES No . [facility] INTERPRETATION Comment . [facility] [facility] Comment on above: Interpretation: Scre en [...] Customer Services to discuss available options. [employer] recommends amniocentesis be offered to women age 35 and older. [age] [facility] MULTIPLE GESTATION No . [facility] OSBR RISK [place] [id number] . [facility] RACE . [facility] RESULTS Report . [facility] TEST RESULTS: Negative . [facility] WEIGHT 198 . lbs [facility] N N LMP [id number] [phone] N 1 Y 198 N N N N N White/ [facility] RECURRENT VAGINITIS (HTRX)on 02-11-2024 ATOPOBIUM VAGINAE 0 [facility] ATOPOBIUM VAGINAE Not detected [facility] BVAB 2,3 (BACTERIAL VAGINOSIS ASSOCIATED BACTERIA 2, 3); MOBILUNCUS SPP 0 [facility] BVAB 2,3 (BACTERIAL VAGINOSIS ASSOCIATED BACTERIA 2, 3); MOBILUNCUS SPP Not detected [facility] MARGARET ALBICANS, PARAPSILOSIS, TROPICALIS 0 [facility] MARGARET ALBICANS, PARAPSILOSIS, TROPICALIS Not detected [facility] MARGARET GLABRATA 0 [facility] MARGARET GLABRATA Not detected [facility] MARGARET KRUSEI 0 [facility] MARGARET KRUSEI Not detected [facility] CHLAMYDIA TRACHOMATIS 0 [facility] CHLAMYDIA TRACHOMATIS Not detected [facility] GARDNERELLA VAGINALIS 0 [facility] GARDNERELLA VAGINALIS Not detected [facility] MEGASPHAERA (TYPES 1, 2) 0 [facility] MEGASPHAERA (TYPES 1, 2) Not detected [facility] MYCOPLASMA GENITALIUM 0 [facility] MYCOPLASMA GENITALIUM Not detected [facility] NEISSERIA GONORRHOEAE 0 [facility] NEISSERIA GONORRHOEAE Not detected [facility] TRICHOMONAS VAGINALIS 0 [facility] TRICHOMONAS VAGINALIS Not detected [facility], [facility] Urinalysis macro (dipstick) panel (U)on 02-09-2024 Bilirubin, UA Negative Negative - 4(70) +++ mg/dL [facility] Blood, UA Negative Negative - 50 Daniel/mcL [facility] Clarity, UA Clear [facility] Color, UA Yellow [facility] Glucose, UA Negative Negative - 2000(110) ++++ mg/dL [facility] Interpretation and review of laboratory results Normal [facility] Ketones, UA Negative Negative - 160(16) ++++ mg/dL [facility] Leukocytes, UA Negative Negative - 500+++ Gavin/mcL [facility] Nitrite, UA Negative Negative - Positive [facility] pH, UA 5.5 5 - 9 [facility] Protein, UA Negative Negative - 2000(20) ++++ mg/dL [facility] Spec Grav, UA 1.02 1 - 1.03 [facility] Urobilinogen, UA 0.2 0.2 - 12 mg/dL [facility] ALL CBC WITH AUTO DIFFon BASOPHILS ABSOLUTE AUTO 0.0 [facility] Basophils/100 WBC (Bld) 0.1 % Low 0.2 - 2.0 % [facility] Eosinophils/100 WBC (Bld) 1.0 % 0.9 - 7.0 % [facility] Erythrocyte distribution width (RBC) [Ratio] 13.2 % 11.0 - 15.0 % [facility] Hematocrit (Bld) [Volume fraction] 36.4 % 36.0 - 48.0 % [facility] Hemoglobin (Bld) [Mass/Vol] 11.9 g/dL Low 12.0 - 16.0 g/dL [facility] IMMATURE GRANULOCYTES ABS AUTO 0.01 [facility] Immature granulocytes/100 WBC (Bld) 0.1 % 0.0 - 0.5 % [facility] Interpretation and review of laboratory results Abnormal [facility] LYMPHOCYTES ABSOLUTE AUTO 1.5 [facility] Lymphocytes/100 WBC (Bld) 22.8 % 20.5 - 60.0 % [facility] MCH (RBC) [Entitic mass] 28.1 pg 26.7 - 34.0 pg [facility] MCHC (RBC) [Mass/Vol] 32.7 g/dL 29.9 - 35.2 g/dL [facility] MCV (RBC) [Entitic vol] 86.1 fL 81.0 - 99.0 fL [facility] MONOCYTES ABSOLUTE AUTO 0.4 [facility] Monocytes/100 WBC (Bld) 6.0 % 1.7 - 12.0 % [facility] NEUTROPHILS ABSOLUTE AUTO 4.7 [facility] Neutrophils/100 WBC (Bld) 70.0 % 43.0 - 75.0 % [facility] Platelet mean volume (Bld) [Entitic vol] 10.7 fL 9.5 - 13.5 fL [facility] TBH EO # 0.1 [facility] PLT 213 [facility] RBC 4.23 [facility] WBC 6.7 [facility] Urinalysis macro (dipstick) panel (U)on 01-07-2024 Bilirubin, UA Negative Negative - 4(70) +++ mg/dL [facility] Blood, UA Negative Negative - 50 Daniel/mcL [facility] Clarity, UA Clear [facility] Color, UA Yellow [facility] Glucose, UA Negative Negative - 1999(110) ++++ mg/dL [facility] Interpretation and review of laboratory results Normal [facility] Ketones, UA Negative Negative - 160(16) ++++ mg/dL [facility] Leukocytes, UA Negative Negative - 500+++ Gavin/mcL [facility] Nitrite, UA Negative Negative - Positive [facility] pH, UA 6.5 5 - 9 [facility] Protein, UA Negative Negative - 1999(20) ++++ mg/dL [facility] Spec Grav, UA 1.020 1 - 1.03 [facility] Urobilinogen, UA 1.0 0.2 - 12 mg/dL [facility], [facility] ALL CBC WITH AUTO DIFFon BASOPHILS ABSOLUTE AUTO 0.0 [facility] Basophils/100 WBC (Bld) 0.3 % 0.2 - 2.0 % [facility] Eosinophils/100 WBC (Bld) 0.9 % 0.9 - 7.0 % [facility] Erythrocyte distribution width (RBC) [Ratio] 13.0 % 11.0 - 15.0 % [facility] Hematocrit (Bld) [Volume fraction] 39.1 % 36.0 - 48.0 % [facility] Hemoglobin (Bld) [Mass/Vol] 12.8 g/dL 12.0 - 16.0 g/dL [facility] IMMATURE GRANULOCYTES ABS AUTO 0.02 [facility] Immature granulocytes/100 WBC (Bld) 0.3 % 0.0 - 0.5 % [facility] Interpretation and review of laboratory results Abnormal [facility] LYMPHOCYTES ABSOLUTE AUTO 1.6 [facility] Lymphocytes/100 WBC (Bld) 20.4 % Low 20.5 - 60.0 % [facility] MCH (RBC) [Entitic mass] 27.8 pg 26.7 - 34.0 pg [facility] MCHC (RBC) [Mass/Vol] 32.7 g/dL 29.9 - 35.2 g/dL [facility] MCV (RBC) [Entitic vol] 84.8 fL 81.0 - 99.0 fL [facility] MONOCYTES ABSOLUTE AUTO 0.6 [facility] Monocytes/100 WBC (Bld) 7.1 % 1.7 - 12.0 % [facility] NEUTROPHILS ABSOLUTE AUTO 5.5 [facility] Neutrophils/100 WBC (Bld) 71.0 % 43.0 - 75.0 % [facility] Platelet mean volume (Bld) [Entitic vol] 10.2 fL 9.5 - 13.5 fL [facility] TBH EO # 0.1 [facility] TB PLT 254 [facility] RBC 4.61 [facility] WBC 7.7 [facility] Urinalysis macro (dipstick) panel (U)on 12-17-2023 Bilirubin, UA Negative Negative - 4(70) +++ mg/dL [facility] Blood, UA Negative Negative - 50 Daniel/mcL [facility] Clarity, UA Clear [facility] Color, UA Yellow [facility] Glucose, UA Negative Negative - 1999(110) ++++ mg/dL [facility] Interpretation and review of laboratory results Abnormal [facility] Ketones, UA Positive Negative - 160(16) ++++ mg/dL [facility] Comment on above: 15 Leukocytes, UA Negative Negative - 500+++ Gavin/mcL [facility] Nitrite, UA Negative Negative - Positive [facility] pH, UA 6.5 5 - 9 [facility] Protein, UA Negative Negative - 1999(20) ++++ mg/dL [facility] Spec Grav, UA 1.030 1 - 1.03 [facility] Urobilinogen, UA 1.0 0.2 - 12 mg/dL [facility] HCG ( test) Ql (U)o n 12-12-2023 Interpretation and review of laboratory results Abnormal [facility] Preg Test, Ur Positive [facility] Urinalysis macro (dipstick) panel (U)on 12-12-2023 Bilirubin, UA Positive Negative - 4(70) +++ mg/dL [facility] Comment on above: small Blood, UA Negative Negative - 50 Daniel/mcL [facility] Clarity, UA Clear [facility] Color, UA Yellow [facility] Glucose, UA Negative Negative - 2000(110) ++++ mg/dL [facility] Interpretation and review of laboratory results Abnormal [facility] Ketones, UA Positive Negative - 160(16) ++++ mg/dL [facility] Comment on above: trace Leukocytes, UA Negative Negative - 500+++ Gavin/mcL [facility] Nitrite, UA Negative Negative - Positive [facility] pH, UA 6.0 5 - 9 [facility] Protein, UA Positive Negative - 2000(20) ++++ mg/dL [facility] Comment on above: 30 Spec Grav, UA 1.030 1 - 1.03 [facility] Urobilinogen, UA 0.2 0.2 - 12 mg/dL [facility] Cytology Cervical or vaginal smear or scraping studyon 03-05-2023 [facility] CBC AUTO DIFFon 07-25-2022 BASO # 0.0 103/ul Normal 0.0-0.1 [facility] Comment on above: Performed By: #### C BC #### [facility] [address] [place] [address] Dr. Jerry Samuel Basophils/100 WBC (Bld) 0.3 % Normal 0.2-2.0 [facility] Comment on above: Performed By: #### C BC #### [facility] [address] [place] [address] Dr. Jerry Samuel EO # 0.1 103/ul Normal 0.0-0.7 [facility] Comment on above: Performed By: #### C BC #### [facility] [address] [place] [address] Dr. Jerry Samuel Eosinophils/100 WBC (Bld) 1.4 % Normal 0.9-7.0 [facility] Comment on above: Performed By: #### C BC #### [facility] [address] [place] [address] Dr. Jerry Samuel Erythrocyte distribution width (RBC) [Ratio] 13.2 % Normal 11.0-15.0 [facility] Comment on above: Performed By: #### C BC #### [facility] [address] [place] [address] Dr. Jerry Samuel Hematocrit (Bld) [Volume fraction] 33.9 % Critically low 36.0-48.0 [facility] Comment on above: Performed By: #### C BC #### [facility] [address] [place] [address] Dr. Jerry Samuel Hemoglobin (Bld) [Mass/Vol] 11.3 g/dL Critically low 12.0-16.0 [facility] Comment on above: Performed By: #### C BC #### [facility] [address] [place] [address] Dr. Jerry Samuel IG # 0.04 10e3/ul Critically high 0.00-0.03 [facility] Comment on above: Performed By: #### C BC #### [facility] [address] [place] [address] Dr. Jerry Samuel IG % 0.6 % Critically high 0.0-0.5 [facility] Comment on above: Performed By: #### C BC #### [facility] [address] [place] [address] Dr. Jerry Samuel LYMPH # 1.9 103/ul Normal 1.2-3.8 [facility] Comment on above: Performed By: #### C BC #### [facility] [address] [place] [address] Dr. Jerry Samuel Lymphocytes/100 WBC (Bld) 30.2 % Normal 20.5-60.0 [facility] Comment on above: Performed By: #### C BC #### [facility] [address] [place] [address] Dr. Jerry Samuel MANUAL DIFF REQ NO Normal [facility] Comment on above: Performed By: #### C BC #### [facility] [address] [place] [address] Dr. Jerry Samuel MCH (RBC) [Entitic mass] 29.9 pg Normal 26.7-34.0 [facility] Comment on above: Performed By: #### C BC #### [facility] [address] [place] [address] Dr. Jerry Samuel MCHC (RBC) [Mass/Vol] 33.3 g/dL Normal 29.9-35.2 [facility] Comment on above: Performed By: #### C BC #### [facility] [address] [address] [address] Jerry Samuel MCV (RBC) [Entitic vol] 89.7 fL Normal 81.0-99.0 [facility] Comment on above: Performed By: #### C BC #### [facility] [address] [address] [address] Jerry Samuel MONO # 0.5 103/ul Normal 0.3-0.8 [facility] Comment on above: Performed By: #### C BC #### [facility] [address] [place] [address] Dr. Jerry Samuel Monocytes/100 WBC (Bld) 7.2 % Normal 1.7-12.0 [facility] Comment on above: Performed By: #### C BC #### [facility] [address] [place] [address] Dr. Jerry Samuel NEUT # 3.8 103/ul Normal 1.4-6.5 [facility] Comment on above: Performed By: #### C BC #### [facility] [address] [place] [address] Dr. Jerry Samuel Neutrophils/100 WBC (Bld) 60.3 % Normal 43.0-75.0 [facility] Comment on above: Performed By: #### C BC #### [facility] [address] [place] [address] Dr. Jerry Samuel Platelet mean volume (Bld) [Entitic vol] 9.8 fL Normal 9.5-13.5 [facility] Comment on above: Performed By: #### C BC #### [facility] [address] [place] [address] Dr. Jerry Samuel PLT 188 103/ul Normal 150-450 [facility] Comment on above: Performed By: #### C BC #### [facility] [address] [place] [address] Dr. Jerry Samuel RBC 3.78 106/ul Critically low 4.20-5.40 [facility] Comment on above: Performed By: #### C BC #### [facility] [address] [address] [address] Jerry Samuel WBC 6.2 103/ul Normal 4.0-11.0 [facility] Comment on above: Performed By: #### C BC #### [facility] [id number] Jerry Samuel GLUCOSE - 1HRon 07-25-2022 Glucose [Mass/Vol] 100 mg/dL Normal 74-106 [facility] Comment on above: Performed By: #### N BOX #### [facility] [address] [address] [address] Jerry Samuel US PREG ANATOMY SINGLEon [...] ABRIL SCANLON Date: 2022-07-02 13:45 Normal [facility] AFP MATERNAL FOR SPINA BIFID Aon 06-14-2022 AFP MoM 0.87 Normal [facility] Comment on above: Performed By: #### R PRQ #### [facility] [address] [address] [address] Jerry Samuel AFP Value 39.6 ng/mL Normal [facility] Comment on above: Performed By: #### R PRQ #### [facility] [address] [address] [address] Jerry Samuel AFP, Serum for Spina Bifida Report Normal [facility] Comment on above: Performed By: #### R PRQ #### [facility] [address] [place] [address] Dr. Jerry Samuel Comment Comment Normal [facility] Comment on above: Result Comment: Irina Petersen, Ph.D., [facility] Director . References: Available Upon Request. . Multiples Of Median Cutoffs For AFP Elevations Patrick 2.5 Black 2.8 IDD 2.0 Twins 4.5 Abbreviation Definitions IDD - Insulin Dep Diabetes OSBR - Open Spina Bifida Risk . For further inquiries contact [employer] [facility] at [phone]. . This test was developed and its performance characteristics determined by [employer] It has not been cleared or approved by the Food and Drug Administration. Performed By: #### R PRQ #### [facility] [address] [address] [address] Jerry Chinchilla Age Collection Date 18.9 weeks Normal [facility] Comment on above: Performed By: #### R PRQ #### [facility] [address] [place] [address] Dr. Jerry Samuel Gestat, Age Based on Ultrasound Normal [facility] Comment on above: Result Comment: 09.0 on 04/04/2022 Recalculations are not recommended when gestational dating by LMP and ultrasound are within 10 days. Performed By: #### R PRQ #### [facility] [address] [place] [address] Dr. Jerry Samuel Insulin Dep Diabetes No Normal [facility] Comment on above: Performed By: #### R PRQ #### [facility] [address] [place] [address] Dr. Jerry Samuel Interpretation Comment Normal [facility] Comment on above: Result Comment: Inte [...] Customer Services to discuss available options. [employer] recommends amniocentesis be offered to women age 35 and older. Performed By: #### R PRQ #### [facility] [address] [place] [address] Dr. Jerry Samuel [age] Normal [facility] Comment on above: Performed By: #### R PRQ #### [facility] [address] [place] [address] Dr. Jerry Samuel Multiple Gestation No Normal [facility] Comment on above: Performed By: #### R PRQ #### [facility] [address] [place] [address] Dr. Jerry Samuel OS[place] [id number] [facility] Comment on above: Performed By: #### R PRQ #### [facility] [address] [place] [address] Dr. Jerry Samuel PDF . [facility] Comment on above: Performed By: #### R PRQ #### [facility] [address] [place] [address] Dr. Jerry Samuel Race Normal [facility] Comment on above: Performed By: #### R PRQ #### [facility] [address] [place] [address] Dr. Jerry Samuel Test Results: Negative Normal [facility] Comment on above: Performed By: #### R PRQ #### [facility] [address] [place] [address] Dr. Jerry Samuel CHLAMYDIA/GONOCOCCUS ELINOR (SW AB/URINE/PAPon 06-07-2022 Chlamydia trachomatis, ELINOR Negative Normal Negative [facility] Comment on above: Performed By: #### R PRQ #### [facility] [address] [place] [address] Dr. Jerry Samuel Neisseria gonorrhoeae, ELINOR Negative Normal Negative [facility] Comment on above: Performed By: #### R PRQ #### [facility] [address] [place] [address] Dr. Jerry Samuel VAGINITIS/VAGINOSIS DNA PROB Nayan 06-06-2022 Margaret species Negative Normal Negative [facility] Comment on above: Performed By: #### V AGINT #### [facility] [address] [place] [address] Dr. Jerry Samuel Gardnerella vaginalis Negative Normal Negative [facility] Comment on above: Performed By: #### V AGINT #### [facility] [address] [place] [address] Dr. Jerry Samuel Trichomonas vaginalis Negative Normal Negative [facility] Comment on above: Performed By: #### V AGINT #### [facility] [address] [place] [address] Dr. Jerry Samuel CBC AUTO DIFFon 05-26-2022 BASO # 0.0 103/ul Normal 0.0-0.1 [facility] Comment on above: Performed By: #### C BC #### [facility] [address] [place] [address] Dr. Jerry Samuel Basophils/100 WBC (Bld) 0.1 % Critically low 0.2-2.0 [facility] Comment on above: Performed By: #### C BC #### [facility] [address] [place] [address] Dr. Jerry Samuel EO # 0.0 103/ul Normal 0.0-0.7 [facility] Comment on above: Performed By: #### C BC #### [facility] [address] [place] [address] Dr. Jerry Samuel Eosinophils/100 WBC (Bld) 0.4 % Critically low 0.9-7.0 [facility] Comment on above: Performed By: #### C BC #### [facility] [address] [place] [address] Dr. Jerry Samuel Erythrocyte distribution width (RBC) [Ratio] 12.6 % Normal 11.0-15.0 [facility] Comment on above: Performed By: #### C BC #### [facility] [address] [place] [address] Dr. Jerry Samuel Hematocrit (Bld) [Volume fraction] 34.0 % Critically low 36.0-48.0 [facility] Comment on above: Performed By: #### C BC #### [facility] [address] [place] [address] Dr. Jerry Samuel Hemoglobin (Bld) [Mass/Vol] 11.6 g/dL Critically low 12.0-16.0 [facility] Comment on above: Performed By: #### C BC #### [facility] [address] [place] [address] Dr. Jerry Samuel IG # 0.03 10e3/ul Normal 0.00-0.03 [facility] Comment on above: Performed By: #### C BC #### [facility] [address] [place] [address] Dr. Jerry Samuel IG % 0.4 % Normal 0.0-0.5 [facility] Comment on above: Performed By: #### C BC #### [facility] [address] [place] [address] Dr. Jerry Samuel LYMPH # 1.1 103/ul Critically low 1.2-3.8 [facility] Comment on above: Performed By: #### C BC #### [facility] [address] [place] [address] Dr. Jerry Samuel Lymphocytes/100 WBC (Bld) 16.5 % Critically low 20.5-60.0 [facility] Comment on above: Performed By: #### C BC #### [facility] [address] [place] [address] Dr. Jerry Samuel MANUAL DIFF REQ NO Normal [facility] Comment on above: Performed By: #### C BC #### [facility] [address] [place] [address] Dr. Jerry Samuel MCH (RBC) [Entitic mass] 29.1 pg Normal 26.7-34.0 [facility] Comment on above: Performed By: #### C BC #### [facility] [address] [place] [address] Dr. Jerry Samuel MCHC (RBC) [Mass/Vol] 34.1 g/dL Normal 29.9-35.2 [facility] Comment on above: Performed By: #### C BC #### [facility] [address] [place] [address] Dr. Jerry Samuel MCV (RBC) [Entitic vol] 85.2 fL Normal 81.0-99.0 [facility] Comment on above: Performed By: #### C BC #### [facility] [address] [place] [address] Dr. Jerry Samuel MONO # 0.4 103/ul Normal 0.3-0.8 [facility] Comment on above: Performed By: #### C BC #### [facility] [address] [place] [address] Dr. Jerry Samuel Monocytes/100 WBC (Bld) 6.0 % Normal 1.7-12.0 [facility] Comment on above: Performed By: #### C BC #### [facility] [address] [place] [address] Dr. Jerry Samuel NEUT # 5.1 103/ul Normal 1.4-6.5 [facility] Comment on above: Performed By: #### C BC #### [facility] [address] [place] [address] Dr. Jerry Samuel Neutrophils/100 WBC (Bld) 76.6 % Critically high 43.0-75.0 [facility] Comment on above: Performed By: #### C BC #### [facility] [address] [place] [address] Dr. Jerry Samuel Platelet mean volume (Bld) [Entitic vol] 10.5 fL Normal 9.5-13.5 [facility] Comment on above: Performed By: #### C BC #### [facility] [address] [place] [address] Dr. Jerry Samuel PLT 207 103/ul Normal 150-450 [facility] Comment on above: Performed By: #### C BC #### [facility] [address] [place] [address] Dr. Jerry Samuel RBC 3.99 106/ul Critically low 4.20-5.40 [facility] Comment on above: Performed By: #### C BC #### [facility] [address] [place] [address] Dr. Jerry Samuel WBC 6.7 103/ul Normal 4.0-11.0 [facility] Comment on above: Performed By: #### C BC #### [facility] [address] [place] [address] Dr. Jerry Samuel ER URINE PROFILEon 3 Bilirubin Ql (U) Negative Normal NEGATIVE [facility] Comment on above: Performed By: #### E RUR #### [facility] [address] [place] [address] Dr. Jerry Samuel Clarity (U) CLEAR Normal CLEAR [facility] Comment on above: Performed By: #### E RUR #### [facility] [address] [place] [address] Dr. Jerry Samuel Color (U) LT. YELLOW Normal YELLOW [facility] Comment on above: Performed By: #### E RUR #### [facility] [address] [place] [address] Dr. Jerry HERMOSILLO A micrscopic examina tion will be performed if indicated. Normal [facility] Comment on above: Performed By: #### E RUR #### [facility] [address] [place] [address] Dr. Jerry Samuel Glucose Ql (U) Negative Normal NEGATIVE [facility] Comment on above: Performed By: #### E RUR #### [facility] [address] [place] [address] Dr. Jerry Samuel Hemoglobin Ql (U) Negative Normal NEGATIVE [facility] [place] Comment on above: Performed By: #### E RUR #### [facility] [address] [place] [address] Dr. Jerry Samuel Ketones Ql (U) Negative Normal NEGATIVE [facility] Comment on above: Performed By: #### E RUR #### [facility] [address] [place] [address] Dr. Jerry Samuel LEUKOCYTES Negative Normal NEGATIVE [facility] Comment on above: Performed By: #### E RUR #### [facility] [address] [place] [address] Dr. Jerry Samuel Nitrite Ql (U) Negative Normal NEGATIVE [facility] Comment on above: Performed By: #### E RUR #### [facility] [address] [place] [address] Dr. Jerry Samuel pH (U) 6.5 [pH] Normal 5-9 [facility] Comment on above: Performed By: #### E RUR #### [facility] [address] [place] [address] Dr. Jerry Samuel SPEC GRAVITY <=1.005 Abnormal 1.005-<=1.025 [facility] Comment on above: Performed By: #### E RUR #### [facility] [address] [place] [address] Dr. Jerry Samuel UA PROTEIN Negative Normal NEGATIVE/ TRACE [facility] Comment on above: Performed By: #### E RUR #### [facility] [address] [place] [address] Dr. Jerry Samuel UR MICRO IND NOT INDICATED Normal [facility] Comment on above: Performed By: #### E RUR #### [facility] [address] [place] [address] Dr. Jerry Samuel Urobilinogen Qn (U) 0.2 {Charlette'U}/dL Normal 0.2 - 1. 0 [facility] Comment on above: Performed By: #### E RUR #### [facility] [address] [address] [address] Jerry Samuel PROF 14(COMP METB)on 023 Albumin [Mass/Vol] 3.4 g/dL Normal 3.4-5.0 [facility] Comment on above: Performed By: #### R PRQ #### [facility] [address] [place] [address] Dr. Jerry Samuel Albumin/Globulin [Mass ratio] 1.0 {ratio} Normal [facility] Comment on above: Performed By: #### R PRQ #### [facility] [address] [place] [address] Dr. Jerry Samuel ALP [Catalytic activity/Vol] 33 U/L Critically low 46-116 [facility] Comment on above: Performed By: #### R PRQ #### [facility] [address] [place] [address] Dr. Jerry Samuel ALT [Catalytic activity/Vol] 16 U/L Normal 14-59 [facility] Comment on above: Performed By: #### R PRQ #### [facility] [address] [place] [address] Dr. Jerry Samuel Anion gap [Moles/Vol] 8.5 mmol/L Normal [facility] Comment on above: Performed By: #### R PRQ #### [facility] [address] [place] [address] Dr. Jerry Samuel AST [Catalytic activity/Vol] 12 U/L Critically low 15-37 [facility] Comment on above: Performed By: #### R PRQ #### [facility] [address] [place] [address] Dr. Jerry Samuel Bilirubin [Mass/Vol] 0.3 mg/dL Normal 0.2-1.0 [facility] Comment on above: Performed By: #### R PRQ #### [facility] [address] [place] [address] Dr. Jerry Samuel Calcium [Mass/Vol] 9.2 mg/dL Normal 8.5-10.1 [facility] Comment on above: Performed By: #### R PRQ #### [facility] [address] [address] [address] Jerry Samuel Chloride [Moles/Vol] 105 mmol/L Normal 98-107 [facility] Comment on above: Performed By: #### R PRQ #### [facility] [address] [address] [address] Jerry Samuel CO2 [Moles/Vol] 25.0 mmol/L Normal 21.0-32.0 [facility] Comment on above: Performed By: #### R PRQ #### [facility] [address] [address] [address] Jerry Samuel Creatinine [Mass/Vol] 0.40 mg/dL Critically low 0.55-1.02 [facility] Comment on above: Performed By: #### R PRQ #### [facility] [address] [address] [address] Jerry Samuel EGFR-AF UGANDAN >60 Normal >=[address] [facility] Comment on above: Performed By: #### R PRQ #### [facility] [address] [address] [address] Jerry Samuel EGFR-NON AF UGANDAN >60 Normal >=60 [facility] Comment on above: Performed By: #### R PRQ #### [facility] [address] [address] [address] Jerry Samuel Globulin (S) [Mass/Vol] 3.5 g/dL Normal [facility] Comment on above: Performed By: #### R PRQ #### [facility] [address] [address] [address] Jerry Samuel Glucose [Mass/Vol] 94 mg/dL Normal 74-106 [facility] Comment on above: Performed By: #### R PRQ #### [facility] [address] [address] [address] Jerry Samuel Potassium [Moles/Vol] 3.5 mmol/L Normal 3.5-5.1 [facility] Comment on above: Performed By: #### R PRQ #### [facility] [address] [address] [address] Jerry Samuel Protein [Mass/Vol] 6.9 g/dL Normal 6.4-8.2 [facility] Comment on above: Performed By: #### R PRQ #### [facility] [address] [address] [address] Jerry Samuel Sodium [Moles/Vol] 135 mmol/L Critically low 136-145 [facility] Comment on above: Performed By: #### R PRQ #### [facility] [address] [place] [address] Dr. Jerry Samuel Urea nitrogen [Mass/Vol] 6.0 mg/dL Critically low 7.0-18.0 [facility] Comment on above: Performed By: #### R PRQ #### [facility] [address] [place] [address] Dr. Jerry Samuel Urea nitrogen/Creatinine [Mass ratio] 15.0 mg/mg Normal [facility] Comment on above: Performed By: #### R PRQ #### [facility] [address] [place] [address] Dr. Jerry BABIN TEST PT SEND OUTo n 05-02-2022 SENT TO REF LAB 05/02/2022 [facility] Comment on above: Performed By: #### N BOX #### [facility] [address] [place] [address] Dr. Jerry Samuel HEP B SURFACE ANTIGEN SCREEN on 04-05-2022 HBsAg Screen Negative Normal Negative [facility] Comment on above: Performed By: #### N BOX #### [facility] [address] [place] [address] Dr. Jerry Samuel HEPATITIS C VIRUS AB W/ REFL EX QUANTon 04-05-2022 HCV AB <0.1 Normal 0.0-0.9 [facility] Comment on above: Performed By: #### H CVPCRR #### [facility] [address] [place] [address] Dr. Jerry Samuel Interpretation: Comment Normal [facility] Comment on above: Result Comment: Nega tive Not infected with HCV, unless recent infection is suspected or other evidence exists to indicate HCV infection. Performed By: #### H CVPCRR #### [facility] [address] [place] [address] Dr. Jerry Samuel HIV 1 AND 2 WITH REFLEXon HIV Screen 4th Generation wRfx Non-Reactive Normal Non Reactive [facility] Comment on above: Result Comment: HIV Negative HIV-1/HIV-2 antibodies and HIV-1 p24 antigen were NOT detected. There is no laboratory evidence of HIV infection. Performed By: #### R PRQ #### [facility] [address] [place] [address] Dr. Jerry Samuel RPR QUANTon 04-05-2022 Rapid Plasma Reagin, Quant Non-Reactive Normal NonRea<1:1 [facility] Comment on above: Result Comment: Plea se Note: This test does not meet current guidelines for screening and diagnosis of syphilis. This test is intended for following treatment response in patients being treated for syphilis infection. To screen for syphilis infection, a reflex cascade that includes both RPR and a treponema-specific assay should be utilized, such as Treponema pallidum (Syphilis) Screening Pleasants (137242) or Rapid Plasma Reagin (RPR) Test With Reflex to Quantitative RPR and Confirmatory Treponema pallidum Antibodies (673623). Performed By: #### R PRQ #### [facility] [address] [place] [address] Dr. Jerry Samuel RUBELLA AB IGGon 04-05-2022 Rubella Antibodies, IgG 1.97 index Normal Immune >0.99 [facility] Comment on above: Result Comment: Non- immune <0.90 Equivocal 0.90 - 0.99 Immune >0.99 Performed By: #### R UBIGG #### [facility] [address] [place] [address] Dr. Jerry Samuel CBC AUTO DIFFon 04-04-2022 BASO # 0.0 103/ul Normal 0.0-0.1 [facility] Comment on above: Performed By: #### R PRQ #### [facility] [address] [place] [address] Dr. Jerry Samuel Basophils/100 WBC (Bld) 0.3 % Normal 0.2-2.0 [facility] Comment on above: Performed By: #### R PRQ #### [facility] [address] [place] [address] Dr. Jerry Samuel EO # 0.1 103/ul Normal 0.0-0.7 [facility] Comment on above: Performed By: #### R PRQ #### [facility] [address] [place] [address] Dr. Jerry Samuel Eosinophils/100 WBC (Bld) 0.7 % Critically low 0.9-7.0 [facility] Comment on above: Performed By: #### R PRQ #### [facility] [address] [place] [address] Dr. Jerry Samuel Erythrocyte distribution width (RBC) [Ratio] 12.3 % Normal 11.0-15.0 [facility] Comment on above: Performed By: #### R PRQ #### [facility] [address] [place] [address] Dr. Jerry Samuel Hematocrit (Bld) [Volume fraction] 35.1 % Critically low 36.0-48.0 [facility] Comment on above: Performed By: #### R PRQ #### [facility] [address] [place] [address] Dr. Jerry Samuel Hemoglobin (Bld) [Mass/Vol] 11.8 g/dL Critically low 12.0-16.0 [facility] Comment on above: Performed By: #### R PRQ #### [facility] [address] [place] [address] Dr. Jerry Samuel IG # 0.02 10e3/ul Normal 0.00-0.03 [facility] Comment on above: Performed By: #### R PRQ #### [facility] [address] [place] [address] Dr. Jerry Samuel IG % 0.3 % Normal 0.0-0.5 [facility] Comment on above: Performed By: #### R PRQ #### [facility] [address] [place] [address] Dr. Jerry Samuel LYMPH # 2.0 103/ul Normal 1.2-3.8 [facility] Comment on above: Performed By: #### R PRQ #### [facility] [address] [place] [address] Dr. Jerry Samuel Lymphocytes/100 WBC (Bld) 26.7 % Normal 20.5-60.0 [facility] Comment on above: Performed By: #### R PRQ #### [facility] [address] [place] [address] Dr. Jerry Samuel MANUAL DIFF REQ NO Normal [facility] Comment on above: Performed By: #### R PRQ #### [facility] [address] [place] [address] Dr. Jerry Samuel MCH (RBC) [Entitic mass] 29.0 pg Normal 26.7-34.0 [facility] Comment on above: Performed By: #### R PRQ #### [facility] [address] [place] [address] Dr. Jerry Samuel MCHC (RBC) [Mass/Vol] 33.6 g/dL Normal 29.9-35.2 [facility] Comment on above: Performed By: #### R PRQ #### [facility] [address] [place] [address] Dr. Jerry Samuel MCV (RBC) [Entitic vol] 86.2 fL Normal 81.0-99.0 [facility] Comment on above: Performed By: #### R PRQ #### [facility] [address] [place] [address] Dr. Jerry Samuel MONO # 0.5 103/ul Normal 0.3-0.8 [facility] Comment on above: Performed By: #### R PRQ #### [facility] [address] [place] [address] Dr. Jerry Samuel Monocytes/100 WBC (Bld) 6.7 % Normal 1.7-12.0 [facility] Comment on above: Performed By: #### R PRQ #### [facility] [address] [place] [address] Dr. Jerry Samuel NEUT # 4.9 103/ul Normal 1.4-6.5 [facility] Comment on above: Performed By: #### R PRQ #### [facility] [address] [place] [address] Dr. Jerry Samuel Neutrophils/100 WBC (Bld) 65.3 % Normal 43.0-75.0 [facility] Comment on above: Performed By: #### R PRQ #### [facility] [address] [place] [address] Dr. Jerry Samuel Platelet mean volume (Bld) [Entitic vol] 10.0 fL Normal 9.5-13.5 [facility] Comment on above: Performed By: #### R PRQ #### [facility] [address] [place] [address] Dr. Jerry Samuel PLT 218 103/ul Normal 150-450 [facility] Comment on above: Performed By: #### R PRQ #### [facility] [address] [place] [address] Dr. Jerry Samuel RBC 4.07 106/ul Critically low 4.20-5.40 [facility] Comment on above: Performed By: #### R PRQ #### [facility] [address] [place] [address] Dr. Jerry Samuel WBC 7.5 103/ul Normal 4.0-11.0 [facility] Comment on above: Performed By: #### R PRQ #### [facility] [address] [place] [address] Dr. Jerry Samuel CULTURE URINEon 04-04-2022 CULTURE URINE Culture Observations : NO GROWTH. Normal [facility] Comment on above: Performed By: #### N BOX #### [facility] [address] [place] [address] Dr. Jerry Samuel GLYCOHEMOGLOBIN A1Con 2021 ADA RECOMMENDATION SEE BELOW Normal [facility] Comment on above: Result Comment: ADA RECOMMENDED LIMIT 4.0 - 6.0 ADA THERAPEUTIC TARGET < 7.0 ACTION SUGGESTED > 7.0 Performed By: #### N BOX #### [facility] [address], [place] [address] Dr. Jerry Samuel Glucose [Mass/Vol] 97 mg/dL Normal [facility] Comment on above: Performed By: #### N BOX #### [facility] [id number] Jerry Samuel HbA1c (Bld) [Mass fraction] 5.0 % Normal 4.5-6.2 [facility] Comment on above: Performed By: #### N BOX #### [facility] [id number] Jerry Samuel TYPE AND SCREENon 04-04-2022 TYPE AND SCREEN Negative Normal [facility] Comment on above: Performed By: #### N BOX #### [facility] [id number] Jerry Samuel US PREG TVon 04-04-2022 [...] by: EDITH WILLIS Date: 2022-04-04 16:13 Normal [facility] PREG QUANT HCGon 03-07-2022 HCG QUANT 2201 mIU/mL Normal [facility] Comment on above: Performed By: #### R PRQ #### [facility] [address] [address] [address] Jerry Samuel HCG RANGE SEE BELOW Normal [facility] Comment on above: Result Comment: 5-50 0.2-1 WEEK 50-500 1-2 WEEKS 100-5,000 2-3 WEEKS 500-10,000 3-4 WEEKS 1,000-50,000 4-5 WEEKS 10,000-100,000 5-6 WEEKS 15,000-200,000 6-8 WEEKS 10,000-100,000 2-3 MONTHS Performed By: #### R PRQ #### [facility] [address] [place] [address] Dr. Jerry Samuel PREG QUANT HCGon 03-05-2022 HCG QUANT 820 mIU/mL [facility] Comment on above: Performed By: #### R PRQ #### [facility] [address] [place] [address] Dr. Jerry Samuel HCG RANGE SEE BELOW [facility] Comment on above: Result Comment: 5-50 0.2-1 WEEK 50-500 1-2 WEEKS 100-5,000 2-3 WEEKS 500-10,000 3-4 WEEKS 1,000-50,000 4-5 WEEKS 10,000-100,000 5-6 WEEKS 15,000-200,000 6-8 WEEKS 10,000-100,000 2-3 MONTHS Performed By: #### R PRQ #### [facility] [address] [place] [address] Dr. Jerry Samuel PAP ACOG PANEL 2: 21 to 29on 02-21-2022 . . Normal [facility] Comment on above: Performed By: #### R PRQ #### [facility] [address] [place] [address] Dr. Jerry Samuel Age Gdln ACOG Testing - [facility] Comment on above: Performed By: #### R PRQ #### [facility] [address] [place] [address] Dr. Jerry Samuel DIAGNOSIS: Comment [facility] Comment on above: Result Comment: NEGA TIVE FOR INTRAEPITHELIAL LESION OR MALIGNANCY. SPECIMEN REPROCESSED FOR INTERPRETATION. Performed By: #### R PRQ #### [facility] [address] [place] [address] Dr. Jerry Samuel Methodology: Comment [facility] Comment on above: Result Comment: This liquid based ThinPrep(R) pap test was screened with the use of an image guided system. Performed By: #### R PRQ #### [facility] [address] [place] [address] Dr. Jerry Samuel Note: Comment Normal [facility] Comment on above: Result Comment: The Pap smear is a screening test designed to aid in the detection of premalignant and malignant conditions of the uterine cervix. It is not a diagnostic procedure and should not be used as the sole means of detecting cervical cancer. Both false-positive and false-negative reports do occur. . Performed By: #### R PRQ #### [facility] [address] [place] [address] Dr. Jerry Samuel Performed by: Comment Normal [facility] Comment on above: Result Comment: Anders Roman, Instrument Tech (ASCP) Performed By: #### R PRQ #### [facility] [address] [place] [address] Dr. Jerry Samuel Reflex Criteria: Comment Normal [facility] Comment on above: Result Comment: The HPV DNA reflex criteria were not met with this specimen result therefore, no HPV testing was performed. . Performed By: #### R PRQ #### [facility] [address] [place] [address] Dr. Jerry Samuel Specimen adequacy: Comment Normal [facility] Comment on above: Result Comment: Sati sfactory for evaluation. Endocervical and/or squamous metaplastic cells (endocervical component) are present. Performed By: #### R PRQ #### [facility] [address] [place] [address] Dr. Jerry Samuel US PELVIS AND TRANSVAGon [...] EDITH WILLIS Date: 2022-02-13 14:34 Normal [facility] CBC AUTO DIFFon 02-12-2022 BASO # 0.0 103/ul Normal 0.0-0.1 [facility] Comment on above: Performed By: #### C BC #### [facility] [address] [place] [address] Dr. Jerry Samuel Basophils/100 WBC (Bld) 0.6 % Normal 0.2-2.0 [facility] Comment on above: Performed By: #### C BC #### [facility] [address] [place] [address] Dr. Jerry Samuel EO # 0.1 103/ul Normal 0.0-0.7 [facility] Comment on above: Performed By: #### C BC #### [facility] [address] [place] [address] Dr. Jerry Samuel Eosinophils/100 WBC (Bld) 1.2 % Normal 0.9-7.0 [facility] Comment on above: Performed By: #### C BC #### [facility] [address] [place] [address] Dr. Jerry Samuel Erythrocyte distribution width (RBC) [Ratio] 11.9 % Normal 11.0-15.0 [facility] Comment on above: Performed By: #### C BC #### [facility] [address] [place] [address] Dr. Jerry Samuel Hematocrit (Bld) [Volume fraction] 39.1 % Normal 36.0-48.0 [facility] Comment on above: Performed By: #### C BC #### [facility] [address] [place] [address] Dr. Jerry Samuel Hemoglobin (Bld) [Mass/Vol] 13.0 g/dL Normal 12.0-16.0 [facility] Comment on above: Performed By: #### C BC #### [facility] [address] [place] [address] Dr. Jerry Samuel IG # 0.01 10e3/ul Normal 0.00-0.03 [facility] Comment on above: Performed By: #### C BC #### [facility] [address] [place] [address] Dr. Jerry Samuel IG % 0.2 % Normal 0.0-0.5 [facility] Comment on above: Performed By: #### C BC #### [facility] [address] [place] [address] Dr. Jerry Samuel LYMPH # 2.4 103/ul Normal 1.2-3.8 [facility] Comment on above: Performed By: #### C BC #### [facility] [address] [place] [address] Dr. Jerry Samuel Lymphocytes/100 WBC (Bld) 37.7 % Normal 20.5-60.0 [facility] Comment on above: Performed By: #### C BC #### [facility] [address] [place] [address] Dr. Jerry Samuel MANUAL DIFF REQ NO Normal [facility] Comment on above: Performed By: #### C BC #### [facility] [address] [place] [address] Dr. Jerry Samuel MCH (RBC) [Entitic mass] 29.2 pg Normal 26.7-34.0 [facility] Comment on above: Performed By: #### C BC #### [facility] [address] [place] [address] Dr. Jerry Samuel MCHC (RBC) [Mass/Vol] 33.2 g/dL Normal 29.9-35.2 [facility] Comment on above: Performed By: #### C BC #### [facility] [address] [place] [address] Dr. Jerry Samuel MCV (RBC) [Entitic vol] 87.9 fL Normal 81.0-99.0 [facility] Comment on above: Performed By: #### C BC #### [facility] [address] [place] [address] Dr. Jerry Samuel MONO # 0.4 103/ul Normal 0.3-0.8 [facility] Comment on above: Performed By: #### C BC #### [facility] [address] [place] [address] Dr. Jerry Samule Monocytes/100 WBC (Bld) 5.9 % Normal 1.7-12.0 [facility] Comment on above: Performed By: #### C BC #### [facility] [address] [place] [address] Dr. Jerry Samuel NEUT # 3.5 103/ul Normal 1.4-6.5 [facility] Comment on above: Performed By: #### C BC #### [facility] [address] [place] [address] Dr. Jerry Samuel Neutrophils/100 WBC (Bld) 54.4 % Normal 43.0-75.0 [facility] Comment on above: Performed By: #### C BC #### [facility] [address] [place] [address] Dr. Jerry Samuel Platelet mean volume (Bld) [Entitic vol] 9.9 fL Normal 9.5-13.5 [facility] Comment on above: Performed By: #### C BC #### [facility] [address] [place] [address] Dr. Jerry Samuel PLT 229 103/ul Normal 150-450 [facility] Comment on above: Performed By: #### C BC #### [facility] [address] [place] [address] Dr. Jerry Samuel RBC 4.45 106/ul Normal 4.20-5.40 [facility] Comment on above: Performed By: #### C BC #### [facility] [address] [place] [address] Dr. Jerry Samuel WBC 6.5 103/ul Normal 4.0-11.0 [facility] Comment on above: Performed By: #### C BC #### [facility] [address] [place] [address] Dr. Jerry Samuel FREE T4on 02-12-2022 Free T4 [Mass/Vol] 0.99 ng/dL Normal 0.76-1.46 [facility] Comment on above: Performed By: #### R PRQ #### [facility] [address] [place] [address] Dr. Jerry Samuel GLYCOHEMOGLOBIN A1Con 2021 ADA RECOMMENDATION SEE BELOW Normal [facility] Comment on above: Result Comment: ADA RECOMMENDED LIMIT 4.0 - 6.0 ADA THERAPEUTIC TARGET < 7.0 ACTION SUGGESTED > 7.0 Performed By: #### R PRQ #### [facility] [address] [place] [address] Dr. Jrery Samuel Glucose [Mass/Vol] 103 mg/dL Normal [facility] Comment on above: Performed By: #### R PRQ #### [facility] [address] [place] [address] Dr. Jerry Samuel HbA1c (Bld) [Mass fraction] 5.2 % Normal 4.5-6.2 [facility] Comment on above: Performed By: #### R PRQ #### [facility] [address] [place] [address] Dr. Jerry Samuel PROTIMEon 02-12-2022 INR Coag (PPP) [Relative time] 1.00 {INR} Normal [facility] Comment on above: Performed By: #### N BOX #### [facility] [address] [place] [address] Dr. Jerry Samuel INR GUIDELINES SEE BELOW Normal [facility] Comment on above: Result Comment: SACHA RED INR: 2.0 - 3.0 CONDITIONS NOT LISTED BELOW 2.5 - 3.5 FOR PROSTHETIC HEART VALVE REPLACEMENT 2.5 - 3.5 RECURRENT THROMBOSIS Performed By: #### N BOX #### [facility] [address] [place] [address] Dr. Jerry Samuel PT Coag (PPP) [Time] 10.8 s Normal 9.0-11.6 [facility] Comment on above: Performed By: #### N BOX #### [facility] [address] [place] [address] Dr. Jerry Samuel PTTon 02-12-2022 aPTT Coag (Bld) [Time] 27.8 s Normal 22.3-36.2 [facility] Comment on above: Performed By: #### N BOX #### [facility] [address] [address] [address] Jerry Samuel TSHon 02-12-2022 TSH 1.741 uIU/mL Normal 0.358-3.740 [facility] Comment on above: Performed By: #### T SH #### [facility] [id number] Jerry Samuel Outside Recordson 11-20-2021 Outside Records [id number] TIFF [facility] Outside Recordson 11-16-2021 Outside Records [id number] GTIFF [facility] HCG,Urineon 02-22-2021 Beta HCG ( test) Ql (U) Negative Normal [facility] Comment on above: Result Comment: PERF ORMED BY: [place] [address] PATHOLOGIST WEED CUTTER PRIYA WHITE M.D. Performed By: #### U HCG #### [address] 02-22-2021 L ---- Specimen: [id number] Received: 02/23/21 Status: DRE Elizabeth Num: [id number] Spec Type: Surgical Subm Dr: Edith Cagle Jr, DO Tissues: A Duodenum - Biopsy (DUODENUM BX) B Stomach - Biopsy/Polyp (ANTRUM BX) C Colon Biopsy (RANDOM COLON) Procedures: HE Stain/6, Gross/Micro L4/3 Patient Age/Sex Location Account Attending Physician Will Shay [id number] Edith Cagle Jr, DO SPEC NUM: [id number] RECD: 02/23/21 STATUS: DRE ELIZABETH NUM: [id number] CASIMIRO: 02/22/21- [facility] DR: Edith Cagle Jr, DO ENTERED: 02/23/21 [facility] DR: ANITA TYPE: Surgical DEPT: S ENTERED BY: [id number] RECV BY: [id number] ORDERED: HE Stain/6, Gross/Micro L4/3 ORDERED: HE [...] Entirely submitted in one cassette labeled A1. (/YJ) B. Received in formalin labeled with the patient's name, number and antrum rule out H. pylori is a 0.5 cm marsh tissue fragment. Entirely submitted in one cassette labeled B1. (SM/YJ) Specimen: [id number] Received: 02/23/21 Status: DRE Elizabeth Num: [id number] Spec Type: Surgical Subm Dr: Edith Cagle Jr, DO Tissues: A Duodenum - Biopsy (DUODENUM BX) B Stomach - Biopsy/Polyp (ANTRUM BX) C Colon Biopsy (RANDOM COLON) Procedures: HE Stain/6, Gross/Micro L4/3 Patient: Will Shay [id number] (Continued) Specimen: [id number] Received: 02/23/21 (Continued) Gross Description (Continued) Signed (signature on file) Gail Crockett MD 02/26/21 1601 Specimen: [id number] Received: 02/23/21 Status: DRE Elizabeth Num: [id number] Spec Type: Surgical Subm Dr: Edith Cagle Jr, DO Tissues: A Duodenum - Biopsy (DUODENUM BX) B Stomach - Biopsy/Polyp (ANTRUM BX) C Colon Biopsy (RANDOM COLON) Procedures: HE Stain/6, Gross/Micro L4/3 Patient: Will Shay Jose Luis [id number] (Continued) Specimen: [id number] Received: 02/23/21 (Continued) Gross Description (Continued) C. Received in formalin labeled with the patient's name, number and random colon rule out microscopic colitis are 2 marsh tissue fragments, 0.3 cm and 0.9 cm. Entirely submitted in one cassette labeled C1. (MICHELE/REINA) Microscopic Description A. Two glass slides with [...] characteristics were determined by the [facility] of [facility]. Immunohistochemistry assays have not been validated on decalcified tissue. Results should be interpreted with caution given the possibility of false negative results on decalcified specimens. They have not been cleared by the [place] Food and Drug Administration. The FDA has determined that such clearance or approval is not necessary. CPT Codes 81626?3, 32679 (more content not included)... Normal [facility] SARS-CoV-2 (COVID-19) RNA ELINOR+probe Ql (Unsp spec) Negative Normal Negative [facility] Comment on above: Order Comment: Healt hcare Worker?: N Result Comment: Testing for SARS-CoV-2 by RT-PCR This test was developed and its performance characteristics determined by [employer]) and validated at the [facility]. This test has not been [...] is terminated or revoked sooner. PERFORMED BY: [place] [address] PATHOLOGIST WEED CUTTER PRIYA WHITE M.D. Performed By: #### C OVID 19 [facility] #### [address] Vital Signs Date Time Vital Sign Value Performing Clinician Facility 06-07-2024 15:03-0500 Body mass index (BMI) [Ratio] 28.86 kg/m2 Eddie Nova DO Work Phone: [facility] 06-07-2024 15:03-0500 Body weight 86.09 kg Eddie Nova DO Work Phone: [facility] 06-07-2024 15:03-0500 Diastolic blood pressure 70 mm[Hg] Eddie Nova DO Work Phone: [facility] 06-07-2024 15:03-0500 Systolic blood pressure 112 mm[Hg] Eddie Nova DO Work Phone: [facility] 05-24-2024 14:28-0500 Body mass index (BMI) [Ratio] 29.32 kg/m2 Eddie Nova DO Work Phone: [facility] 05-24-2024 14:28-0500 Body weight 87.45 kg Eddie Nova DO Work Phone: [facility] 05-24-2024 14:28-0500 Diastolic blood pressure 70 mm[Hg] Eddie Nova DO Work Phone: [facility] 05-24-2024 14:28-0500 Systolic blood pressure 120 mm[Hg] Eddie Nova DO Work Phone: [facility] 05-11-2024 13:15-0500 Body mass index (BMI) [Ratio] 29.19 kg/m2 Kirsty Sherron PA Work Phone: [facility] 05-11-2024 13:15-0500 Body weight 87.09 kg Kirsty Sherron PA Work Phone: [facility] 05-11-2024 13:15-0500 Diastolic blood pressure 60 mm[Hg] Kirsty Syracuse PA Work Phone: [facility] 05-11-2024 13:15-0500 Systolic blood pressure 110 mm[Hg] Kirsty Syracuse PA Work Phone: [facility] 04-27-2024 12:18-0500 Body mass index (BMI) [Ratio] 29.8 kg/m2 Eddie Nova DO Work Phone: [facility] 04-27-2024 12:18-0500 Body weight 88.91 kg Eddie Nova DO Work Phone: [facility] 04-27-2024 12:18-0500 Diastolic blood pressure 62 mm[Hg] Eddie Nova DO Work Phone: [facility] 04-27-2024 12:18-0500 Systolic blood pressure 106 mm[Hg] Eddie Nova DO Work Phone: [facility] 04-05-2024 13:24-0500 Body mass index (BMI) [Ratio] 30.38 kg/m2 Kirsty Sherron PA Work Phone: [facility] 04-05-2024 13:24-0500 Body weight 90.63 kg Kirsty Sherron PA Work Phone: [facility] 04-05-2024 13:24-0500 Diastolic blood pressure 64 mm[Hg] Kirsty Sherron PA Work Phone: [facility] 04-05-2024 13:24-0500 Systolic blood pressure 104 mm[Hg] Kirsty Sherron PA Work Phone: [facility] 03-08-2024 16:52-0500 Body mass index (BMI) [Ratio] 30.62 kg/m2 Eddie Nova DO Work Phone: [facility] 03-08-2024 16:52-0500 Body weight 91.35 kg Eddie Nova DO Work Phone: [facility] 03-08-2024 16:52-0500 Diastolic blood pressure 74 mm[Hg] Eddie Nova DO Work Phone: [facility] 03-08-2024 16:52-0500 Systolic blood pressure 116 mm[Hg] Eddie Nova DO Work Phone: [facility] 02-09-2024 16:03-0500 Body mass index (BMI) [Ratio] 30.11 kg/m2 Eddie Nova DO Work Phone: [facility] 02-09-2024 16:03-0500 Body weight 89.81 kg Eddie Nova DO Work Phone: [facility] 02-09-2024 16:03-0500 Diastolic blood pressure 70 mm[Hg] Eddie Nova DO Work Phone: [facility] 02-09-2024 16:03-0500 Systolic blood pressure 118 mm[Hg] Eddie Nova DO Work Phone: [facility] 01-07-2024 15:50-0400 Body mass index (BMI) [Ratio] 29.97 kg/m2 Eddie Nova DO Work Phone: [facility] 01-07-2024 15:50-0400 Body weight 89.41 kg Eddie Nova DO Work Phone: [facility] 01-07-2024 15:50-0400 Diastolic blood pressure 72 mm[Hg] Eddie Nova DO Work Phone: [facility] 01-07-2024 15:50-0400 Systolic blood pressure 106 mm[Hg] Eddie Nova DO Work Phone: [facility] 12-17-2023 11:17-0400 Body mass index (BMI) [Ratio] 30.33 kg/m2 Kirsty Siu PA Work Phone: [facility] 12-17-2023 11:17-0400 Body weight 90.49 kg Kirsty Siu PA Work Phone: [facility] 12-17-2023 11:17-0400 Diastolic blood pressure 70 mm[Hg] Kirsty Siu PA Work Phone: [facility] 12-17-2023 11:17-0400 Systolic blood pressure 104 mm[Hg] Kirsty Siu PA Work Phone: [facility] 12-12-2023 09:34-0400 Body mass index (BMI) [Ratio] 30.41 kg/m2 Noms Nurse [facility] 12-12-2023 09:34-0400 Body weight 90.72 kg Noms Nurse [facility] 12-12-2023 09:34-0400 Diastolic blood pressure 80 mm[Hg] Noms Nurse [facility] 12-12-2023 09:34-0400 Systolic blood pressure 120 mm[Hg] Noms Nurse [facility] 03-26-2023 13:45-0500 Body height 164.47 cm Ben Rose Other IM[facility] Other 03-26-2023 13:45-0500 Body mass index (BMI) [Ratio] 29.6 kg/m2 Ben Rose Other [facility] Other 03-26-2023 13:45-0500 Body weight 80.06 kg Ben Rose Other IM[facility] Other 03-26-2023 13:45-0500 Diastolic blood pressure 74 mm[Hg] Ben Rose Other IM[facility] Other 03-26-2023 13:45-0500 Systolic blood pressure 120 mm[Hg] Ben Rose Other IM[facility] Other 06-14-2022 17:07-0500 Body weight 79.[address] EDDIE BHATT . [facility] Comment on above: Performed By: #### RPRQ #### [facility] [address] [address] [address] Jerry Samuel 03-08-2022 11:15-0500 Body height 164.47 cm Ben Rose Other IM[facility] Other 03-08-2022 11:15-0500 Body mass index (BMI) [Ratio] 29.01 kg/m2 Ben Rose Other IM[facility] Other 03-08-2022 11:15-0500 Body weight 78.47 kg Ben Rose Other IM[facility] Other 03-08-2022 11:15-0500 Diastolic blood pressure 73 mm[Hg] Ben Rose Other IM[facility] Other 03-08-2022 11:15-0500 Systolic blood pressure 113 mm[Hg] Ben Rose Other IM[facility] Other Encounters Encounter Date Encounter Type Care Provider Facility Start: 06-07-2024 End: 06-07-2024 ambulatory EDDIE NOVA Not Available Start: 06-07-2024 End: 06-07-2024 flow sheet Eddie Nova DO Work Phone: [facility] Comment on above: 34 weeks gestation o f ; Third trimester ; Anxiety Start: 06-07-2024 End: 06-07-2024 Bamboo flowsheet Eddie Nova DO Work Phone: [facility] Start: 06-07-2024 End: 06-07-2024 Bamboo flowsheet Eddie Nova DO Work Phone: [facility] Start: 05-24-2024 End: 05-24-2024 flow sheet Eddie Nova DO Work Phone: [facility] Comment on above: 32 weeks gestation o f ; Third trimester ; Anxiety Start: 05-24-2024 End: 05-24-2024 ambulatory EDDIE NOVA Not Available Start: 05-11-2024 End: 05-11-2024 Bamboo flowsheet Kirsty RAHMAN Work Phone: [facility] Start: 05-11-2024 End: 05-11-2024 Bamboo flowsheet Kirsty RAHMAN Work Phone: [facility] Start: 05-11-2024 End: 05-11-2024 ambulatory KIRSTY SIU Not Available Start: 05-11-2024 End: 05-11-2024 flow sheet Kirsty RAHMAN Work Phone: [facility] Comment on above: size inconsist ent with dates (Primary Dx); 30 weeks gestation of ; Third trimester Start: 04-27-2024 End: 04-27-2024 Bamboo flowsheet Eddie Nova DO Work Phone: [facility] Start: 04-27-2024 End: 04-27-2024 Bamboo flowsheet Eddie Nova DO Work Phone: [facility] Start: 04-27-2024 End: 04-27-2024 ambulatory EDDIE NOVA Not Available Start: 04-27-2024 End: 04-27-2024 flow sheet Eddie Nova DO Work Phone: [facility] Comment on above: Second trimester pre gnancy; 28 weeks gestation of Start: 04-15-2024 End: 04-20-2024 Telephone encounter Alana Mcclendon LPN Work Phone: [facility] Start: 04-10-2024 End: 04-10-2024 Clinisync Result Encounter Kirsty RAHMAN Work Phone: [facility] Unsolicited Start: 04-10-2024 End: 04-10-2024 Clinisync Result Encounter Kirsty RAHMAN Work Phone: [facility] Unsolicited Start: 04-05-2024 End: 04-05-2024 Bamboo flowsheet Kirsty RAHMAN Work Phone: [facility] Start: 04-05-2024 End: 04-05-2024 Bamboo flowsheet Kirsty RAHMAN Work Phone: [facility] Start: 04-05-2024 End: 04-05-2024 flow sheet Kirsty RAHMAN Work Phone: [facility] Comment on above: 25 weeks gestation o f ; Second trimester ; Diabetes mellitus screening Start: 04-05-2024 End: 04-05-2024 ambulatory KIRSTY SIU Not Available Start: 03-08-2024 End: 03-08-2024 ambulatory EDDIE NOVA Not Available Start: 03-08-2024 End: 03-08-2024 flow sheet Eddie Nova DO Work Phone: [facility] Comment on above: Second trimester pre gnancy; 21 weeks gestation of Start: 03-08-2024 End: 03-08-2024 Bamboo flowsheet Eddie Nova DO Work Phone: [facility] Start: 03-08-2024 End: 03-08-2024 Bamboo flowsheet Eddie Nova DO Work Phone: [facility] Start: 02-18-2024 End: 02-20-2024 Clinisync Result Encounter Eddie Nova DO Work Phone: [facility] Unsolicited Start: 02-18-2024 End: 02-20-2024 Clinisync Result Encounter Eddie Nova DO Work Phone: [facility] Unsolicited Start: 02-09-2024 End: 02-09-2024 Patient encounter procedure Eddie Nova DO Work Phone: [facility] Start: 02-09-2024 End: 02-09-2024 flow sheet [...] Bamboo flowsheet Eddie Nova DO Work Phone: [facility] Start: 02-09-2024 End: 02-11-2024 External Result Encounter Kirsty Siu PA Work Phone: [facility] External Department Unsolicited Start: 01-08-2024 End: 01-08-2024 [...] Bamboo flowsheet Eddie Nova DO Work Phone: [facility] Start: 01-07-2024 End: 01-07-2024 Bamboo flowsheet Eddie Nova DO Work Phone: [facility] Start: 12-22-2023 End: 12-22-2023 Clinisync Result Encounter Eddie Nova DO Work Phone: [facility] Unsolicited Start: 12-22-2023 End: 12-22-2023 Clinisync Result Encounter Eddie Nova DO Work Phone: [facility] Unsolicited Start: 12-17-2023 End: 12-17-2023 Bamboo flowsheet Kirsty RAHMAN Work Phone: [facility] Start: 12-17-2023 End: 12-17-2023 Bamboo flowsheet Kirsty RAHMAN Work Phone: [facility] Start: 12-17-2023 End: 12-17-2023 flow sheet Kirsty RAHMAN Work Phone: [facility] Comment on above: First trimester preg baldev Start: 12-17-2023 End: 12-17-2023 ambulatory KIRSTY SIU Not Available Start: 12-12-2023 End: 12-12-2023 [facility]ulatory [facility] Nurse [facility] Comment on above: GA: 8w4d Start: 03-26-2023 End: 03-26-2023 ambulatory Ben Rose Other IMN Other Start: 03-26-2023 Patient encounter procedure Ben Rose [facility] Start: 01-24-2023 End: 01-24-2023 ambulatory Ben Rose Other IM[facility] Other Start: 01-24-2023 Telephone encounter Ben FORD [...] 03-08-2022 End: 03-08-2022 ambulatory Ben Rose Other IM[facility] Other Start: 03-08-2022 Patient encounter procedure Ben Rose [facility] Start: 03-07-2022 End: 03-08-[address] EDDIE BHATT . 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 Facility:[facility] Procedures Date Procedure Procedure Detail Performing Clinician Start: 06-07-2024 Urnls dip stick/tabl et rgnt non-auto w/o micrscp Eddie Bhatt DO Work Phone: Start: 05-24-2024 Urnls dip stick/tabl et rgnt non-auto w/o micrscp Eddie Nova DO Work Phone: Start: 05-11-2024 Urnls dip stick/tabl et rgnt non-auto w/o micrscp Kirsty RAHMAN Work Phone: Start: 04-27-2024 Urnls dip stick/tabl et rgnt non-auto w/o micrscp Eddie Nova DO Work Phone: Start: 04-10-2024 ALL CBC WITH AUTO DIFF Kirsty RAHMAN Work Phone: Start: 04-05-2024 Urnls dip stick/tabl et rgnt non-auto w/o micrscp Eddie Nova DO Work Phone: Start: 02-18-2024 AFP, SERUM, OPEN SPI NA [...] micrscp Eddie Nova DO Work Phone: Start: 12-22-2023 ALL CBC WITH AUTO DIFF Eddie Nova DO Work Phone: Start: 12-17-2023 Urnls dip stick/tabl et rgnt non-auto w/o micrscp Kirsty RAHMAN Work Phone: Start: 12-12-2023 Urnls dip stick/tabl et rgnt non-auto w/o micrscp Eddie Nova DO Work Phone: Start: 03-05-2023 Cytp cerv/vag auto t hin layer prep mnl screen Eddie Bhatt DO Work Phone: Plan of Treatment Date Care Activity Detail Author Start: 06-21-2024 End: 06-21-2024 Patient encounter procedure 06/21/2024 1:50 PM EDT Routine [facility] [address] [facility] [place] [address] Kirsty Siu, PA [address] [facility] [address] [place], [place] [id number] [facility] Start: 06-07-2024 End: 06-07-2024 Patient encounter procedure 06/07/2024 2:40 PM EST Routine [facility] [address] [place] [address] Eddie Bhatt, DO [address] [place], [place] [address]Ph[address] [place], [place] [id number] [facility] Start: 05-24-2024 End: 05-24-2024 Patient encounter procedure 05/24/2024 2:40 PM EST Routine [facility] [address] [place] [address] Eddie Bhatt, DO [address] [place] [address] Dr Sou[place], [place] [id number] [facility] Start: 05-24-2024 End: 05-24-2024 Professional / ancillary services management 05/24/2024 2:00 PM EST Ancillary Procedure [facility] [address] [place] [address] [facility] Start: 05-11-2024 End: 05-11-2025 US for US OB follow up transabdominal approach Imaging Routine size inconsistent with dates Expected: 05/11/2024, Expires: 05/11/2025 [facility] Work Phone: Comment on above: Expected: 05/11/2024 , Expires: 05/11/2025 Start: 05-11-2024 End: 05-11-2024 Patient encounter procedure 05/11/2024 1:00 PM EST Routine [facility] [address] [facility] [address] Eddie Bhatt, DO [address] [place] [address] [facility] Start: 04-27-2024 End: 04-27-2024 Patient encounter procedure 04/27/2024 11:20 AM EST Routine [facility] [address] [facility] [place] [address] Eddie Bhatt, DO [address] [place] [address] [facility] Start: 04-05-2024 End: 04-05-2025 CBC panel - Blood by Automated count CBC Lab Routine 25 weeks gestation of Second trimester Diabetes mellitus screening Expected: 04/05/2024 (Approximate), Expires: 04/05/2025 [facility] Work Phone: Comment on above: Expected: 04/05/2024 (Approximate), Expires: 04/05/2025 Start: 04-05-2024 End: 04-05-2025 Measurement of glucose 1 hour after glucose challenge for glucose tolerance test Glucose tolerance, 1 hour Lab Routine 25 weeks gestation of Second trimester Diabetes mellitus screening Expected: 04/05/2024 (Approximate), Expires: 04/05/2025 [facility] Comment on above: Expected: 04/05/2024 (Approximate), Expires: 04/05/2025 Start: 04-05-2024 End: 04-05-2024 Patient encounter procedure [facility] Comment on above: Arrived Start: 03-10-2024 End: 03-10-2024 Alpha fetoprotein, maternal Alpha fetoprotein, maternal Lab Routine MSAFP (maternal serum alpha-fetoprotein) decreased Expected: 03/10/2024 (Approximate), Expires: 03/10/2024 [facility] Comment on above: Expected: 03/10/2024 (Approximate), Expires: 03/10/2024 Start: 03-08-2024 End: 03-08-2024 Patient encounter procedure 03/08/2024 3:50 PM EST Routine [facility] [address] [facility] [place] [id number] Eddie Bhatt DO [address] [place], [place] [id number] [facility] Start: 03-01-2024 End: 03-01-2024 Professional / ancillary services management 03/01/2024 1:30 PM EST Ancillary Procedure [facility] [address] [facility] [place] [address] [facility] Start: 02-09-2024 End: 02-09-2024 Patient encounter procedure [facility] Comment on above: Arrived Start: 02-09-2024 End: 02-08-2025 US for US OB ANATOMY SINGLE W US OB CERVICAL LENGTH Imaging Routine Screening, , for anatomic survey Expected: 02/09/2024 (Approximate), Expires: 02/08/2025 [facility] Comment on above: Expected: 02/09/2024 (Approximate), Expires: 02/08/2025 Start: 01-07-2024 End: 01-07-2024 Patient encounter procedure [facility] Comment on above: Arrived Start: 12-17-2023 End: 12-17-2023 Patient encounter procedure 12/17/2023 11:00 AM EDT Office Visit [facility] [address] [place] [address] Kirsty Siu PA [address] [place], [place] [id number] Arrived [facility] Comment on above: Arrived Start: 12-12-2023 End: 12-11-2024 ABO/Rh ABO/Rh Lab Routine Missed menses Expected: 12/12/2023 (Approximate), Expires: 12/11/2024 [facility] Comment on above: Expected: 12/12/2023 (Approximate), Expires: 12/11/2024 Start: 12-12-2023 End: 12-11-2024 Blood type and Indirect antibody screen panel - Blood Type and screen Lab Routine Missed menses Expected: 12/12/2023 (Approximate), Expires: 12/11/2024 [facility] Work Phone: Comment on above: Expected: 12/12/2023 (Approximate), Expires: 12/11/2024 Start: 12-12-2023 End: 12-11-2024 US Pelvis transvaginal US OB transvaginal Imaging Routine Missed menses Expected: 12/12/2023 (Approximate), Expires: 12/11/2024 [facility] Comment on above: Expected: 12/12/2023 (Approximate), Expires: 12/11/2024 Bacteria identified in Urine by Culture Urine culture Microbiology Routine Missed menses Ordered: 12/12/2023 [facility] Comment on above: Ordered: 12/12/2023 CBC W Auto Different ial panel - Blood CBC and differential Lab Routine Nausea and vomiting during Dizziness Ordered: 01/07/2024 [facility] Work Phone: Comment on above: Ordered: 01/07/2024 CBC W Auto Different ial panel - Blood CBC and differential Lab Routine Missed menses Ordered: 12/12/2023 [facility] Comment on above: Ordered: 12/12/2023 CHLAMYDIA TRACHOMATI S (GENITO/STI) CHLAMYDIA TRACHOMATIS (GENITO/STI) Lab Routine Exposure to STD Ordered: 02/09/2024 [facility] Comment on above: Ordered: 02/09/2024 Hemoglobin A1c/Hemoglobin.total in Blood Hemoglobin A1c Lab Routine Missed menses Ordered: 12/12/2023 [facility] Comment on above: Ordered: 12/12/2023 Hepatitis B virus surface Ag [Presence] in Serum or Plasma by Immunoassay Hepatitis B surface antigen Lab Routine Missed menses Ordered: 12/12/2023 [facility] Comment on above: Ordered: 12/12/2023 Hepatitis C virus Ab [Presence] in Serum or Plasma by Immunoassay Hepatitis C antibody Lab Routine Missed menses Ordered: 12/12/2023 [facility] Comment on above: Ordered: 12/12/2023 HIV-1/HIV-2 antigen/antibody combination immunoassay HIV-1 and HIV-2 antibodies Lab Routine Missed menses Ordered: 12/12/2023 [facility] Comment on above: Ordered: 12/12/2023 Neisseria gonorrhoea e DNA [Presence] in Unspecified specimen by ELINOR with probe detection Neisseria gonorrhea DNA probe, direct Lab Routine Exposure to STD Ordered: 02/09/2024 [facility] Comment on above: Ordered: 02/09/2024 Reagin Ab [Presence] in Serum by RPR RPR Lab Routine Missed menses Ordered: 12/12/2023 [facility] Comment on above: Ordered: 12/12/2023 Rubella antibody, IgG Rubella an tibody, IgG Lab Routine Missed menses Ordered: 12/12/2023 [facility] Comment on above: Ordered: 12/12/2023 SURESWAB(R) ADVANCED VAGINITIS PLUS, TMA SURESWAB(R) ADVANCED VAGINITIS PLUS, TMA Pathology and Cytology Routine Exposure to STD Ordered: 02/09/2024 [facility] Work Phone: Comment on above: Ordered: 02/09/2024 Immunizations Immunization Date Immunization Notes Care Provider Michael albright 11-08-2014 human papilloma viru s vaccine, quadrivalent Ben Rose Other [employer] Other Payers Date Payer Category Payer Blue Cross Blue Shield [id number] 2022 Unknown BCBS BCBS [id number] 2022-Present [phone] [id number] [place] [address] [id number] 2022 Unknown [id number] 2021 Unknown [id number] 1996 Unknown [id number] 2.16.840.1.371707.3.579.2.718 1996 Unknown [id number] 2.16.840.1.006146.3.579.2.718 1996 Unknown [id number] 2.16.840.1.859930.3.579.2.593 1996 Unknown [id number] 2.16.840.1.215422.3.579.2.593 1996 Unknown [id number] 2.16.840.1.074921.3.579.2.593 1996 Unknown [id number] 2.16.840.1.354219.3.579.2.593 1996 Unknown [id number] 2.16.840.1.256181.3.579.2.593 1996 Unknown [id number] 2.16.840.1.164571.3.579.2.593 1996 Unknown [id number] 2.16.840.1.030279.3.579.2.593 1996 Unknown [id number] 2.16.840.1.422975.3.579.2.593 1996 Unknown [id number] 2.16.840.1.360125.3.579.2.593 1996 Unknown [id number] 2.16.840.1.203993.3.579.2.593 1996 Unknown [id number] 2.16.840.1.592054.3.579.2.593 1996 Unknown [id number] 2.16.840.1.530853.3.579.2.593 1996 Unknown [id number] 2.16.840.1.863828.3.579.2.593 1996 Unknown [id number] 2.16.840.1.912619.3.579.2.593 1996 Unknown [id number] 2.16.840.1.271698.3.579.2.593 1996 Unknown [id number] 2.16.840.1.510931.3.579.2.1258 1996 Unknown [id number] 2.16.840.1.468798.3.579.2.1258 1996 Unknown [id number] 2.16.840.1.083114.3.579.2.1258 1996 Unknown [id number] 2.16.840.1.625199.3.579.2.1258 1996 Unknown [id number] 2.16.840.1.639967.3.579.2.1258 1996 Unknown [id number] 2.16.840.1.334010.3.579.2.1258 1996 Unknown [id number] 2.16.840.1.381425.3.579.2.1258 1996 Unknown [id number] 2.16.840.1.393533.3.579.2.1258 1996 Unknown [id number] 2.16.840.1.840283.3.579.2.1258 1996 Unknown [id number] 2.16.840.1.349294.3.579.2.1258 1996 Unknown [id number] 2.16.840.1.053109.3.579.2.9 1959 Self-pay 1959 Unknown [id number] 2.16. 840.1.611831.19 1959 Unknown [id number] 2.16840.1.905814. 1959 Unknown [id number] 1959 Unknown [id number] Unknown [id number] 2.16.840.1.652084.3.579.2.593 Social History Date Type Detail Facility Unknown if ever smoked [facility] Other Start: 03-27-2023 End: 12-12-2023 Sex Assigned At [facility] Other Start[facility] 09[facility]17[facility] Start: 09-17-2022 Tobacco use and exposure Smokeless tobacco non-user [facility] Start: 12-17-2023 End: 06-07-2024 Alcoholic beverage intake Lifetime non-drinker (finding) [facility] Start: 03-27-2023 End: 12-12-2023 History of Social function [facility] Start: 10-27-2023 [facility] Start: 1995 Sex assigned at Not on file [facility] Clinical Notes 03-08-2022 to 06-07-2024 Vicky Leyva, [facility] - 06/07/2024 2:40 PM Rory Leyva, [facility] - 05/24/2024 2:40 PM Amaya Siu [facility] 05/11/2024 1:00 PM Farhan Foster, [facility] - 04/27/2024 11:20 AM EST Note Date & Type Note Facility 06-07-2024 History of Presen t illness Narrative Reason for Appointment: Patient ID: iWll Shay is a 28 y.o. female who presents for No chief complaint on file. Patient presents today for Return OB appointment. MEDICATIONS Current Outpatient Medications Medication Instructions buPROPion SR (WELLBUTRIN SR) 150 mg, Oral, 2 times daily, Do not crush, chew, or split. citalopram (CELEXA) 10 mg, Oral, Nightly citalopram (CELEXA) 10 mg, Oral, Nightly metoclopramide (REGLAN) 10 mg, Oral, 3 times daily before meals, Take 1 tablet by mouth 30 minutes prior to meals 3 times daily as needed for nausea. ondansetron ODT (ZOFRAN-ODT) 4 mg, Every 8 hours PRN pantoprazole (PROTONIX) 40 mg, Daily before breakfast ALLERGIES Allergies Allergen Reactions Buspirone Minocycline Hives Penicillins Rash PROBLEMS Active Ambulatory Problems Diagnosis Date Noted Acid reflux 09/13/2022 Acne 09/13/2022 Acquired scoliosis 09/13/2022 Acute upper respiratory infection 09/13/2022 Adjustment disorder with depressed mood ([facility]/HCC) 09/13/2022 Allergic rhinitis 09/13/2022 Anxiety 09/13/2022 Arthralgia of multiple joints 09/13/2022 Dysmenorrhea 09/13/2022 Family history of thyroid disease 09/13/2022 Hematochezia 09/13/2022 Low back pain 09/13/2022 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 Exam conducted with a needlemaker present. Vitals: Estimated body mass index is 28.86 kg/m as calculated from the following: Height as of 12/25/22: 5' 8 . Weight as of this encounter: 189 lb 12.8 oz. BP: 112/70 Patient's last menstrual period was 10/13/2023. ASSESSMENT & PLAN ICD-10-CM 1. 34 weeks gestation of Z3A.34 POCT urinalysis dipstick manually resulted 2. Third trimester Z34.93 POCT urinalysis dipstick manually resulted Patient presents today for a routine obstetrics appointment. Patient is currently 34w0d with a Estimated Date of Delivery: 07/19/24. Patient voiced that she has not had an appetite and is having some side effects from Celexa. Patient voiced she is still taking medication, but anxiety is still present. Patient also had questions answered in regards to . Atarax will be sent to patients pharmacy to help with symptoms. Patient to return to clinic in 1-2 weeks for routine OB appointment. Documented by Vicky Leyva LPN on behalf of: Eddie Bhatt DO documented in this encounter [facility] 05-24-2024 History of Presen t illness Narrative Reason for Appointment: Patient ID: Will Shay is a 28 y.o. female who presents for Routine Visit Patient presents today for Return OB appointment. MEDICATIONS Current Outpatient Medications Medication Instructions buPROPion SR (WELLBUTRIN SR) 150 mg, Oral, 2 times daily, Do not crush, chew, or split. citalopram (CELEXA) 10 mg, Oral, Nightly docusate sodium (COLACE) 100 mg, Oral, 2 times daily PRN metoclopramide (REGLAN) 10 mg, Oral, 3 times daily before meals, Take 1 tablet by mouth 30 minutes prior to meals 3 times daily as needed for nausea. ondansetron ODT (ZOFRAN-ODT) 4 mg, Every 8 hours PRN pantoprazole (PROTONIX) 40 mg, Daily before breakfast ALLERGIES Allergies Allergen Reactions [...] 09/13/2022 Subcutaneous nodule 09/13/2022 Tinea pedis 09/13/2022 25 weeks gestation of 04/05/2024 Second trimester 04/05/2024 Resolved Ambulatory Problems Diagnosis Date Noted No Resolved Ambulatory Problems Past Medical History: Diagnosis Date Depression (CMS/HCC) HISTORY PAST MEDICAL HISTORY SOCIAL HISTORY Past Medical History: Diagnosis Date Anxiety Depression (CMS/HCC) Social History Tobacco Use Smoking status: Never Smokeless tobacco: Never Substance Use Topics Alcohol use: Never Drug use: Never FAMILY HISTORY Family History Problem Relation Name Age of Onset Mental illness Mother Melanoma Neg Hx SURGICAL HISTORY Past Surgical History: Procedure Laterality Date SECTION, LOW TRANSVERSE 11/08/2022 MOUTH SURGERY REVIEW OF SYSTEMS Review of Systems: Review of Systems OBJECTIVE Objective: OBGyn Exam Vitals: Estimated body mass index is 29.32 kg/m as calculated from the following: Height as of 12/25/22: 5' 8 . Weight as of this encounter: 192 lb 12.8 oz. BP: 120/70 Patient's last menstrual period was 10/13/2023. ASSESSMENT & PLAN ICD-10-CM 1. 32 weeks gestation of Z3A.32 POCT urinalysis dipstick manually resulted 2. Third trimester Z34.93 POCT urinalysis dipstick manually resulted 3. Anxiety F41.9 citalopram (CeleXA) 10 MG tablet Patient presents today for a routine obstetrics appointment. Patient is currently 32w0d with a Estimated Date of Delivery: 07/19/24. Patient voiced that she jorge shave occasionally light-headed at times, but only mild symptoms. Discussed medication and patient is to start Celexa 10mg @ HS and patient will decrease Wellbutrin 150mg daily for 1 week and then every other day until weaned off medication. Documented by Vicky Leyva LPN on behalf of: Eddie Bhatt DO documented in this encounter [facility] 05-11-2024 History of Presen t illness Narrative Reason for Appointment: Patient ID: Will Shay is a 28 y.o. female who presents for Routine Visit Patient presents today for Return OB appointment. MEDICATIONS Current Outpatient Medications Medication Instructions buPROPion SR (WELLBUTRIN SR) 150 mg, Oral, 2 times daily, Do not crush, chew, or split. docusate sodium (COLACE) 100 mg, Oral, 2 times daily PRN metoclopramide (REGLAN) 10 mg, Oral, 3 times daily before meals, Take 1 tablet by mouth 30 minutes prior to meals 3 times daily as needed for nausea. ondansetron ODT (ZOFRAN-ODT) 4 mg, Every 8 hours PRN pantoprazole (PROTONIX) 40 mg, Daily before breakfast ALLERGIES Allergies Allergen Reactions Buspirone Minocycline Hives Penicillins Rash PROBLEMS Active Ambulatory Problems Diagnosis Date Noted Acid reflux 09/13/2022 Acne 09/13/2022 Acquired scoliosis 09/13/2022 Acute upper respiratory infection 09/13/2022 Adjustment disorder with depressed mood ([facility]/HCC) 09/13/2022 Allergic rhinitis 09/13/2022 Anxiety 09/13/2022 Arthralgia of multiple joints 09/13/2022 Dysmenorrhea 09/13/2022 Family history of thyroid disease 09/13/2022 Hematochezia 09/13/2022 Low back pain 09/13/2022 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[facility]) 09/13/2022 Subcutaneous nodule 09/13/2022 Tinea pedis 09/13/2022 25 weeks gestation of 04/05/2024 Second trimester 04/05/2024 Resolved Ambulatory Problems Diagnosis Date Noted No Resolved Ambulatory Problems Past Medical History: Diagnosis Date Depression ([facility]) HISTORY PAST MEDICAL HISTORY SOCIAL HISTORY Past Medical History: Diagnosis Date Anxiety Depression ([facility]) Social History Tobacco Use Smoking status: Never [...] Exam Constitutional: Appearance: Normal appearance. She is normal weight. HENT: Head: Normocephalic. Cardiovascular: Rate and Rhythm: Normal rate. Pulses: Normal pulses. Pulmonary: Effort: Pulmonary effort is normal. Breath sounds: Normal breath sounds. Abdominal: Palpations: Abdomen is soft. Musculoskeletal: General: Normal range of motion. Neurological: General: No focal deficit present. Mental Status: She is alert and oriented to person, place, and time. Psychiatric: Mood and Affect: Mood normal. Behavior: Behavior normal. Thought Content: Thought content normal. Judgment: Judgment normal. Vitals and nursing note reviewed. Vitals: Estimated body mass index is 29.19 kg/m as calculated from the following: Height as of 12/25/22: 5' 8 . Weight as of this encounter: 192 lb. BP: 110/60 Patient's last menstrual period was 10/13/2023. ASSESSMENT & PLAN ICD-10-CM 1. size inconsistent with dates O26.849 US OB follow up transabdominal approach 2. 30 weeks gestation of Z3A.30 POCT urinalysis dipstick manually resulted 3. Third trimester Z34.93 POCT urinalysis dipstick manually resulted Return OB: Patient presents today for a routine obstetrics appointment. Patient is currently 30w1d . Patient states she is doing well but has complaints of being tired due to current . Patient has verbalizes frequent movement. labor precautions was discussed/given and patient was instructed to perform kick counts three times a day. Orders Placed This Encounter Procedures US OB follow up transabdominal approach POCT urinalysis dipstick manually resulted Follow Up: Patient is to return to office in 2 week for routine OB appointment. Documented by JOSIAH Schilling on behalf of: JOSIAH Schilling documented in this encounter [facility] 04-27-2024 History of Presen t illness Narrative Reason for Appointment: Patient ID: Will Shay is a 28 y.o. female who presents for Routine Visit Patient presents today for Return OB appointment. MEDICATIONS Current Outpatient Medications Medication Instructions azithromycin (Zithromax Z-Fredrick) 250 MG tablet Take as directed buPROPion SR (WELLBUTRIN SR) 150 mg, Oral, 2 times daily, Do not crush, chew, or split. docusate sodium (COLACE) 100 mg, Oral, 2 times daily PRN methylPREDNISolone (Medrol Dospak) 4 MG tablets As directed metoclopramide (REGLAN) 10 mg, Oral, 3 times daily before meals, Take 1 tablet by mouth 30 minutes prior to meals 3 times daily as needed for nausea. pantoprazole (PROTONIX) 40 mg, Oral, Daily before breakfast, Do not crush, chew, or split. promethazine (PHENERGAN) 12.5 mg, Oral, Every 6 hours PRN, Take 1 tablet by mouth every 6 hours as needed for nausea. ALLERGIES Allergies Allergen Reactions Buspirone Minocycline Hives Penicillins Rash PROBLEMS Active Ambulatory Problems Diagnosis Date Noted Acid reflux 09/13/2022 Acne 09/13/2022 Acquired scoliosis 09/13/2022 Acute upper respiratory infection 09/13/2022 Adjustment disorder with depressed mood ([facility]) 09/13/2022 Allergic rhinitis 09/13/2022 Anxiety 09/13/2022 Arthralgia of multiple joints 09/13/2022 Dysmenorrhea 09/13/2022 Family history of thyroid disease 09/13/2022 Hematochezia 09/13/2022 Low back pain 09/13/2022 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[facility]) 09/13/2022 Subcutaneous nodule 09/13/2022 Tinea pedis 09/13/2022 25 weeks gestation of 04/05/2024 Second trimester 04/05/2024 Resolved Ambulatory Problems Diagnosis Date Noted No Resolved Ambulatory Problems Past Medical History: Diagnosis Date Depression ([facility]) HISTORY PAST MEDICAL HISTORY SOCIAL HISTORY Past Medical History: Diagnosis Date Anxiety Depression ([facility]) Social History Tobacco Use Smoking status: Never [...] nursing note reviewed. Exam conducted with a needlemaker present. Vitals: Estimated body mass index is 29.8 kg/m as calculated from the following: Height as of 12/25/22: 5' 8 . Weight as of this encounter: 196 lb. BP: 106/62 Patient's last menstrual period was 10/13/2023. ASSESSMENT & PLAN ICD-10-CM 1. Second trimester Z34.92 2. 28 weeks gestation of Z3A.28 POCT urinalysis dipstick manually resulted Return OB: Patient presents today for a routine obstetrics appointment. Patient is currently 28w1d . Patient states she is doing well but has complaints of being tired due to current . Patient has verbalizes frequent movement. labor precautions was discussed/given and patient was instructed to perform kick counts three times a day. Pt not feeling well. Pt to have growth ultrasound at 32 weeks. Orders Placed This Encounter Procedures POCT urinalysis dipstick manually resulted Follow Up: Patient is to return to office in 2 week for routine OB appointment. Documented by Carmen Foster LPN on behalf of: Eddie Bhatt DO documented in this encounter [facility] 04-15-2024 Telephone encount er Note Madhuri, my name is Will Shay. My birthday is 1995 and I was just calling because I am on Wellbutrin 150mg in the morning and 150mg at night and is not doing anything. I have been on it for a while now. I was trying to give it a chance, but I was also on Wellbutrin and then Celexa and the Celexa was like making me more anxious, I guess, but I had good luck with Celexa in my last , so I do not know if I should try that again or like how do I go off the well view trying to go on to something else? That makes me kind of nervous. But yeah, I do not know what my options are, but yeah, my anxiety is just out of control. So even with the Wellbutrin at 300, so I did not know if there was any other options or if maybe I should try Celexa again I do not know, but my phone numbers [phone], thank you, conye. I called pt to let her know that I would talk to Dr. Bhatt and see what he recommends. [facility] 04-15-2024 Miscellaneous Notes Formattin g of this note might be different from the original. Madhuri, my name is Will Shay. My birthday is 1995 and I was just calling because I am on Wellbutrin 150mg in the morning and 150mg at night and is not doing anything. I have been on it for a while now. I was trying to give it a chance, but I was also on Wellbutrin and then Celexa and the Celexa was like making me more anxious, I guess, but I had good luck with Celexa in my last , so I do not know if I should try that again or like how do I go off the well view trying to go on to something else? That makes me kind of nervous. But yeah, I do not know what my options are, but yeah, my anxiety is just out of control. So even with the Wellbutrin at 300, so I did not know if there was any other options or if maybe I should try Celexa again I do not know, but my phone numbers [phone], thank you, aurelio. I called pt to let her know that I would talk to Dr. Bhatt and see what he recommends. [facility]U documented in this encounter [facility] 04-05-2024 History of Presen t illness Narrative Reason for Appointment: Patient ID: Will Shay is a 28 y.o. female who presents for No chief complaint on file. Patient presents today for Return OB appointment. MEDICATIONS Current Outpatient Medications Medication Instructions azithromycin (Zithromax Z-Fredrick) 250 MG tablet Take as directed buPROPion SR (WELLBUTRIN SR) 150 mg, Oral, 2 times daily, Do not crush, chew, or split. docusate sodium (COLACE) 100 mg, Oral, 2 [...] before breakfast, Do not crush or chew. 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 She is normal weight. HENT: Head: Normocephalic. Cardiovascular: Rate and Rhythm: Normal rate. Pulses: Normal pulses. Pulmonary: Effort: Pulmonary effort is normal. Breath sounds: Normal breath sounds. Abdominal: Palpations: Abdomen is soft. Musculoskeletal: General: Normal range of motion. Neurological: General: No focal deficit present. Mental Status: She is alert and oriented to person, place, and time. Psychiatric: Mood and Affect: Mood normal. Behavior: Behavior normal. Thought Content: Thought content normal. Judgment: Judgment normal. Vitals and nursing note reviewed. Vitals: Estimated body mass index is 30.62 kg/m as calculated from the following: Height as of 12/25/22: 5' 8 . Weight as of 03/08/24: 201 lb 6.4 oz. BP: Patient's last menstrual period was 10/13/2023. ASSESSMENT & PLAN Patient presents today for a routine obstetrics appointment. Patient is currently 25w0d with a Estimated Date of Delivery: 07/19/24. Patient was given order for 1 hour gtt and CBC to have obtained prior to next appointment. Patient voiced that she is currently on Wellbutrin 150mg BID and would like to know if medication would be able to be increased and if so to how much. Patient does not desire to have increase at this time, but would like to know her options if needed. Documented by Vicky Leyva LPN on behalf of: JOSIAH Schilling documented in this encounter [facility] 03-08-2024 History of Presen t illness Narrative Reason for Appointment: Patient ID: Will Shay is a 28 y.o. female who presents for Routine Visit Patient presents today for Return OB appointment. MEDICATIONS Current Outpatient Medications Medication Instructions azithromycin (Zithromax Z-Fredrick) 250 MG tablet Take as directed buPROPion XL (WELLBUTRIN XL) 150 mg, Oral, Daily, Do not crush, chew, or split. citalopram (CELEXA) 20 mg, Oral, Every morning [...] before breakfast, Do not crush or chew. promethazine (PHENERGAN) 12.5 mg, Oral, Every 6 hours PRN, Take 1 tablet by mouth every 6 hours as needed for nausea. 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 Exam conducted with a needlemaker present. Vitals: Estimated body mass index is 30.62 kg/m as calculated from the following: Height as of 12/25/22: 5' 8 . Weight as of this encounter: 201 lb 6.4 oz. BP: 116/74 Patient's last menstrual period was 10/13/2023. ASSESSMENT & PLAN ICD-10-CM 1. Second trimester Z34.92 2. 21 weeks gestation of Z3A.21 Patient presents today for a routine obstetrics appointment. Patient is currently 21w0d with a Estimated Date of Delivery: 07/19/24. Patient to return to clinic in 4 weeks for routine OB appointment. Discussed as to when patient will restart Celexa if needed as well. Documented by Vicky Leyva LPN on behalf of: Eddie Bhatt DO documented in this encounter [facility] 02-09-2024 History of Presen t illness Narrative [...] infection 09/13/2022 Adjustment disorder with depressed mood ([facility]/HCC) 09/13/2022 Allergic rhinitis 09/13/2022 Anxiety 09/13/2022 Arthralgia of multiple joints 09/13/2022 Dysmenorrhea 09/13/2022 Family history of thyroid disease 09/13/2022 Hematochezia 09/13/2022 Low back pain 09/13/2022 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[facility]) 09/13/2022 Subcutaneous nodule 09/13/2022 Tinea pedis 09/13/2022 Resolved Ambulatory Problems Diagnosis Date Noted No Resolved Ambulatory Problems Past Medical History: Diagnosis Date Depression ([facility]) HISTORY PAST MEDICAL HISTORY SOCIAL HISTORY Past Medical History: Diagnosis Date Anxiety Depression ([facility]) Social History Tobacco Use Smoking status: Never [...] nursing note reviewed. Exam conducted with a needlemaker present. 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 Exam conducted with a needlemaker present. Vitals: Estimated body mass index is [...] or undercooked meat, and stay away from [facility]. Patient has been consulted regarding any further do's and don'ts of . Patient voiced understanding and all questions and concerns were answered. Orders Placed This Encounter Procedures Urine dip Follow Up: Patient is to return in 4 weeks for routine OB appointment. Documented by Carmen Foster LPN on behalf of: Kirsty Siu PA-C documented in this encounter [facility] 12-17-2023 History of Presen t illness Narrative Reason for Appointment: Patient ID: Will Shay is a 28 y.o. female who presents for No chief complaint on file. Patient presents today for Acute Visit. MEDICATIONS Current Outpatient Medications Medication Instructions azithromycin (Zithromax Z-Fredrick) 250 MG tablet Take as directed citalopram (CELEXA) 20 mg, Oral, Every morning methylPREDNISolone (Medrol Dospak) 4 MG tablets As directed metoclopramide (REGLAN) 10 mg, Oral, 3 times daily before meals, Take 1 tablet by mouth 30 minutes prior to meals 3 times daily as needed for nausea. Misc. Devices (Medela Double Breast Pump) misc 1 Device, Does not apply, As needed nitrofurantoin (macrocrystal-monohydrate) (MACROBID) 100 mg, Oral, 2 times daily ondansetron ODT (ZOFRAN-ODT) 4 mg, Oral, Every [...] infection 09/13/2022 Adjustment disorder with depressed mood ([facility]) 09/13/2022 Allergic rhinitis 09/13/2022 Anxiety 09/13/2022 Arthralgia of multiple joints 09/13/2022 Dysmenorrhea 09/13/2022 Family history of thyroid disease 09/13/2022 Hematochezia 09/13/2022 Low back pain 09/13/2022 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[facility]) 09/13/2022 Subcutaneous nodule 09/13/2022 Tinea pedis 09/13/2022 Resolved Ambulatory Problems Diagnosis Date Noted No Resolved Ambulatory Problems Past Medical History: Diagnosis Date Depression ([facility]) HISTORY PAST MEDICAL HISTORY SOCIAL HISTORY Past Medical History: Diagnosis Date Anxiety Depression ([facility]) Social History Tobacco Use Smoking status: Never [...] Exam Constitutional: Appearance: Normal appearance. She is normal weight. HENT: Head: Normocephalic. Cardiovascular: Rate and Rhythm: Normal rate. Pulses: Normal pulses. Pulmonary: Effort: Pulmonary effort is normal. Breath sounds: Normal breath sounds. Abdominal: Palpations: Abdomen is soft. Musculoskeletal: General: Normal range of motion. Neurological: General: No focal deficit present. Mental Status: She is alert and oriented to person, place, and time. Psychiatric: Mood and Affect: Mood normal. Behavior: Behavior normal. Thought Content: Thought content normal. Judgment: Judgment normal. Vitals and nursing note reviewed. Vitals: Estimated body mass index is 30.33 kg/m as calculated from the following: Height as of 12/25/22: 5' 8 . Weight as of this encounter: 199 lb 8 oz. BP: 104/70 Patient's last menstrual period was 10/13/2023. ASSESSMENT & PLAN ICD-10-CM 1. First trimester Z34.91 POCT urinalysis dipstick manually resulted Pt here for follow up er visit from yesterday. Pt has had nausea and vomiting for the past several days and felt dehydrated. She was seen in er and given 2l of iv fluids. Pt states she feels better today. We have discussed zofran pump for her but she is hesitant due to fear of needles. [employer] has been notified and will reach out to patient. Pt will follow up as scheduled or sooner if needed Documented by JOSIAH Schilling on behalf of: JOSIAH Schilling documented in this encounter [facility] 12-12-2023 History of Presen t illness Narrative Reason for Appointment: Patient ID: Will Shay is a 28 y.o. female who presents for Amenorrhea Patient presents today for a Nurse OB Intake appointment. Patient is 8w4d with a Estimated Date of Delivery: 07/19/24 OB History Para Term AB Living 2 1 1 1 SAB IAB Ectopic Multiple Live Births # Outcome Date GA Lbr Chilo/2nd Weight Sex Type Anes PTL Lv 2 Current 1 Term 11/08/22 39w6d 9 lb 10 oz M Current Medications: has a current medication list which includes the following prescription(s): azithromycin, citalopram, methylprednisolone, metoclopramide, medela double breast pump, ondansetron odt, promethazine, and protonix. Medical History: Active Ambulatory Problems Diagnosis Date Noted Acid [...] Past Medical History: Diagnosis Date Depression (CMS/HCC) Family History Problem Relation Name Age of Onset Mental illness Mother Melanoma Neg Hx Social History Tobacco Use Smoking status: Never Smokeless tobacco: Never Substance Use Topics Alcohol use: Never Drug use: Never Past Surgical History: Procedure Laterality Date SECTION, LOW TRANSVERSE 11/08/2022 MOUTH SURGERY Allergies Allergen Reactions Buspirone Minocycline Hives Penicillins Rash Vitals: Estimated body mass index is 30.41 kg/m as calculated from the following: Height as of 12/25/22: 5' 8 . Weight as of this encounter: 200 lb. BP: 120/80 Patient's last menstrual period was 10/13/2023. Assessment/Plan Diagnoses and all orders for this visit: Missed menses - Type and screen; Future - ABO/Rh; Future - CBC and differential - Hemoglobin A1c - RPR - Rubella antibody, IgG - Hepatitis B surface antigen - Hepatitis C antibody - HIV-1 and HIV-2 antibodies - Urine culture - US OB transvaginal; Future - POCT , urine manually resulted - POCT urinalysis dipstick manually resulted Nurse Note: Pt was given OB folder and desires [place] [facility]. Advised to have both and unity labs done at the same time at 10 weeks. Pt is currently 8 weeks 4 days . Pt is having nausea/vomiting symptoms w/ and was given reglan to begin taking. Advised if that does not work to call office so we can begin the [employer] zofran pump. Pt verbally understood. Pt to return in [address] Bhatt. Follow Up: Patient is to have labs drawn at directed and return to office for initial OB appointment with provider. Patient may call office as needed with any concerns or questions. Nurse Visit Completed by: Leah Raman MA documented in this encounter [facility] 03-26-2023 Evaluation note Encounter Date Diagnosis Assessment [...] call office if she has no improvement IMN Other 10-20-2023 Evaluation note* Encounter Date Diagnosis Assessment Notes Treatment Notes Treatment Clinical Notes Jan, Epigastric burning sensation (ICD-10 - R10.13) IMN Other 12-02-2022 Evaluation note* Encounter Date Diagnosis Assessment Notes Treatment Notes Treatment Clinical Notes Mar, Nausea (ICD-10 - R11.0) Mar, Epigastric burning sensation (ICD-10 - R10.13) Mar, Lower abdominal pain (ICD-10 - R10.30) Mar, Bloating (ICD-10 - R14.0) Mar, Functional dyspepsia (ICD-10 - K30) Mar, GERD (gastroesophageal reflux disease) (ICD-10 - K21.9) CONTINUE PANTOPRAZOLE 40 MG DAILY CONTINUE LEVSIN NEEDED RTO 1 YR IMN Other Evaluation note* Diagnosis First trimester state, incidental 12 weeks gestation of Nausea and vomiting during Dizziness Dizziness and giddiness Constipation during in first trimester documented in this encounter [facility]* Diagnosis Second trimester state, incidental 17 weeks gestation of Well woman exam with routine gynecological exam Routine gynecological examination Exposure to STD MSAFP (maternal serum alpha-fetoprotein) decreased Abnormal findings on screening Screening, , for anatomic survey Encounter for anatomic survey documented in this encounter [facility] HealthcareEvaluation note* Diagnosis Second trimester state, incidental 21 weeks gestation of documented in this encounter [facility] note* Diagnosis Missed menses documented in this encounter [facility]* Diagnosis First trimester state, incidental documented in this encounter [facility]* Diagnosis 25 weeks gestation of Second trimester state, incidental Diabetes mellitus screening Screening for diabetes mellitus documented in this encounter [facility]* Diagnosis Second trimester state, incidental 28 weeks gestation of documented in this encounter [facility]* Diagnosis size inconsistent with dates- Primary 30 weeks gestation of Third trimester state, incidental documented in this encounter [facility]* Diagnosis 32 weeks gestation of Third trimester state, incidental Anxiety Anxiety state, unspecified documented in this encounter [facility]* Diagnosis 34 weeks gestation of Third trimester state, incidental Anxiety Anxiety state, unspecified [facility] Narrative - Reported* Type Description Date Medical History scoliosis Medical History hx of mono Surgical History [place] teeth x4 IMN Other History general Narrative - Reported* Type Description Date Medical History scoliosis Medical History hx of mono Surgical History [place] teeth x4 Surgical History C section IMN Other Summary Purpose Family History No Family History Records FoundNo Family History Records FoundNo Family History Records FoundNo Family History Records Found Advance Directives No Advanced Directives Records FoundNo Advanced Directives Records FoundNo Advanced Directives Records FoundNo Advanced Directives Records Found Additional Source Comments INFORMATION SOURCE (unrecogn ized section and content) DATE CREATED AUTHOR 02/27/2021 [facility] DATE CREATED AUTHOR AUTHOR'S ORGANIZ ATION 07/24/2022 [facility] DATE CREATED AUTHOR AUTHOR'S ORGANIZ ATION 08/08/2022 [facility] DATE CREATED AUTHOR AUTHOR'S ORGANIZ ATION 06/08/2024 [facility] EPIC REASON FOR VISIT (unrecogniz ed section and content) Reason Comments Routine Visit Reason Comments Amenorrhea FOR RECORDS PERTAINING TO PATIENTS WHO ARE [...] BE BASED ON THE PRIMARY CLINICAL RECORDS. [facility] [employer] [facility]. provides no warranty or guarantee of the accuracy or completeness of information in this document.
== END 2024-06-21 20:33 | disposition home or self-care (01) ==
LOC: LAB 20:32
PROVIDERS: PCP Nurse Practitioner Family; Visit Provider Physician Assistant
DX: Z34.93 Encounter for supervision of normal pregnancy, unspecified, third trimester (principal)
CPT/HCPCS: 36415; 87081

== ENCOUNTER 2024-06-29 03:07 | Inpatient (IN) | payer BC, SELFPAY ==
[2024-06-29] VITALS (30 sets, daily range): BP systolic 91–143; BP diastolic 55–85; PULSE 45–110; TEMP 36.5–37.3; O2SAT 82–98
--- OUTSIDE RECORDS SUMMARY | 2024-06-29 03:12 | XMS_ITS | CCD ---
Author Organization [facility] Care Team Providers Care Benzene Washer Operator Name Role Phone Ben Rose Unavailable Mikael ACADEMIC SUPPORT ASSISTANT-C, Angeles A Admitting Unavailable Mikael ACADEMIC SUPPORT ASSISTANT-C, Angeles A Attending Unavailable Mikael ACADEMIC SUPPORT ASSISTANT-C, Angeles A Primary Care Unavailable Mikael ACADEMIC SUPPORT ASSISTANT-C, Angeles A Attending Unavailable Mikael ACADEMIC SUPPORT ASSISTANT-C, Angeles A Primary Care Unavailable NOVA ., [...] DR MORGAN Attending Unavailable NOVA ., DR MROGAN Admitting Unavailable REQUEST, DR NONE LISTED Primary [...] Unavailable NOVA ., DR MORGAN Admitting Unavailable ONVA ., DR MORGAN Consulting Unavailable MIKAEL, ANGELES [...] KIRSTY Attending Unavailable NOVA, EDDIE Attending Unavailable SHERRON, KIRSTY Attending Unavailable NOVA, EDDIE Attending Unavailable NOVA, EDDIE Attending Unavailable NOVA, EDDIE Attending Unavailable SHERRON, KIRSTY Attending Unavailable Allergies Allergy Classification Reported Allergen(s) Allergy Type Date of Onset Reaction(s) Facility (3 sources) Penicillin G Drug Allergy Unknown [id number] Other (1 source) busPIRone; Translations: [buspirone hcl] Drug Allergy [facility] Repository (1 source) Coconut extract; Translations: [coconut] Drug Allergy [facility] Repository (20 sources) Penicillins; Translations: [penicillins] Propensity to adverse reactions to drug (disorder) 3 Rash [facility] Repository (1 source) Amoxicillin Drug Allergy [facility] Repository (1 source) Penicillin Drug Allergy [facility] Repository (20 sources) busPIRone Drug Allergy [...] (20 sources) Serotonin Reuptake Inhibitor Start: End: take 1 tablet by mouth at bedtime [...] Active hydrOXYzine hydrochloride 10 mg oral tablet (3 sources) Antihistamine Start: 06-07-2024 take 1 tablet [...] Active ondansetron 4 mg disintegrating oral tablet (17 sources) Serotonin-3 Receptor Antagonist Start: 04-19-2024 take [...] each 11/15/2022 04/27/2024 Discontinued (Other) Start: 11-15-2022 [facility] [place]Medela [place] [facility] [place]: Mother currently breast-feeding 1 Device if [...] of ] 03-08-2024 Episodic Residual codes; unclassified (16 sources) Gestation period, 25 weeks; Translations: [25 [...] Test Name Value Interpretation Reference Range Facility ALL MISCELLANEOUS TESTon MISCELLANEOUS TEST COMMENT . [facility] Comment on above: Test Ordered: 760006 Strep Gp B Culture+Rflx Strep Gp B Culture+Rflx Positive [A ] CB Reference Range: Negative Centers for Disease Control and Prevention (CDC) and [place] [employer]nec[employer] (ACOG) guidelines for prevention of group B streptococcal (GBS) disease specify co-collection of a vaginal and rectal swab specimen to maximize sensitivity of GBS detection. Per the CDC and ACOG, swabbing both the lower vagina and rectum substantially increases the yield of detection compared with sampling the vagina alone. Penicillin G, ampicillin, or cefazolin are indicated for intrapartum prophylaxis of GBS colonization. Reflex susceptibility testing should be performed prior to use of clindamycin only on GBS isolates from penicillin- allergic women who are considered a high risk for anaphylaxis. Treatment with vancomycin without additional testing is warranted if resistance to clindamycin is noted. Organism Identification Comment Reference Range: . Beta hemolytic Streptococcus, group B Clindamycin Resistant [A ] CB Reference Range: . Testing for inducible clindamycin resistance was performed using erythromycin and clindamycin in the D-zone test. Per the Centers for Disease Control and Prevention (CDC), erythromycin is no longer an acceptable alternative for intrapartum group B Streptococcus (GBS) prophylaxis for penicillin-allergic women at high risk for anaphylaxis. Performed at: [facility] [id number] Outboard System Operator: Jose Alejandro Matthews PhD, Phone: [phone] GROUP B STREP [id number] CULTURE, GROUP B STREP [facility]USCEPT[facility] (dipstick) panel (U)on 06-07-2024 Bilirubin, UA Negative Negative - 4(70) +++ mg/dL [facility] Blood, UA Negative Negative - 50 Daniel/mcL [facility] Clarity, UA Clear [facility] Color, UA Colorless [facility] Glucose, UA Positive Negative - 2000(110) ++++ mg/dL [facility] Comment on above: 100 Interpretation and review of laboratory results Abnormal [facility] Ketones, UA Negative Negative - 160(16) ++++ mg/dL [facility] Leukocytes, UA Negative Negative - 500+++ Gavin/mcL [facility] Nitrite, UA Negative Negative - Positive [facility] pH, UA 6 5 - 9 [facility] Protein, UA Negative Negative - 2000(20) ++++ mg/dL [facility] Spec Grav, UA 1.005 1 - 1.03 [facility] Urobilinogen, UA 0.2 0.2 - 12 mg/dL [facility] US OB FOLLOW UP TRANSABDOMIN AL APPROACHon [...] UA Negative Negative - 4(70) +++ mg/dL [facility] Blood, UA Positive Negative - 50 Daniel/mcL [facility] Comment on above: TRACE-INTACT Clarity, UA Clear [facility] Color, UA Yellow [facility] Glucose, UA Negative Negative - 1999(110) ++++ mg/dL [facility] Interpretation and review of laboratory results Abnormal [facility] Ketones, UA Negative Negative - 160(16) ++++ mg/dL [facility] Leukocytes, UA Negative Negative - 500+++ Gavin/mcL [facility] Nitrite, UA Negative Negative - Positive [facility] pH, UA 6 5 - 9 [facility] Protein, UA Negative Negative - 2000(20) ++++ mg/dL [facility] Spec Grav, UA 1.005 1 - 1.03 [facility] Urobilinogen, UA 0.2 0.2 - 12 mg/dL [facility] Urinalysis macro (dipstick) panel (U)on 05-11-2024 Bilirubin, UA Negative Negative - 4(70) +++ mg/dL [facility] Blood, UA Negative Negative - 50 Daniel/mcL [facility] Clarity, UA Clear [facility] Color, UA Yellow [facility] Glucose, UA Negative Negative - 1999(110) ++++ mg/dL [facility] Interpretation and review of laboratory results Abnormal [facility] Ketones, UA Negative Negative - 160(16) ++++ mg/dL [facility] Leukocytes, UA Trace Negative - 500+++ Gavin/mcL [facility] Nitrite, UA Negative Negative - Positive [facility] pH, UA 6.5 5 - 9 [facility] Protein, UA Negative Negative - 1999(20) ++++ mg/dL [facility] Spec Grav, UA 1.02 1 - 1.03 [facility] Urobilinogen, UA 0.2 0.2 - 12 mg/dL [facility] Urinalysis macro (dipstick) panel (U)on 04-27-2024 Bilirubin, UA Negative Negative - 4(70) +++ mg/dL [facility] Blood, UA Negative Negative - 50 Daniel/mcL [facility] Clarity, UA Clear [facility] Color, UA Yellow [facility] Glucose, UA Negative Negative - 1999(110) ++++ mg/dL [facility] Interpretation and review of laboratory results Abnormal [facility] Ketones, UA Negative Negative - 160(16) ++++ mg/dL [facility] Leukocytes, UA Trace Negative - 500+++ Gavin/mcL [facility] Nitrite, UA Negative Negative - Positive [facility] pH, UA 7 5 - 9 [facility] Protein, UA Negative Negative - 1999(20) ++++ mg/dL [facility] Spec Grav, UA 1.01 1 - 1.03 [facility] Urobilinogen, UA 0.2 0.2 - 12 mg/dL [facility] ALL CBC WITH AUTO DIFFon BASOPHILS ABSOLUTE AUTO 0 [facility] Basophils/100 WBC (Bld) 0.5 % 0.2 - 2.0 % [facility] Eosinophils/100 WBC (Bld) 0.5 % Low 0.9 - 7.0 % [facility] Erythrocyte distribution width (RBC) [Ratio] 12.9 % 11.0 - 15.0 % [facility] Hematocrit (Bld) [Volume fraction] 33.7 % Low 36.0 - 48.0 % [facility] Hemoglobin (Bld) [Mass/Vol] 10.8 g/dL Low 12.0 - 16.0 g/dL [facility] IMMATURE GRANULOCYTES ABS AUTO 0.04 High [facility] Immature granulocytes/100 WBC (Bld) 0.6 % High 0.0 - 0.5 % [facility] Interpretation and review of laboratory results Abnormal [facility] LYMPHOCYTES ABSOLUTE AUTO 1.3 [facility] Lymphocytes/100 WBC (Bld) 20.2 % Low 20.5 - 60.0 % [facility] MCH (RBC) [Entitic mass] 26.9 pg 26.7 - 34.0 pg [facility] MCHC (RBC) [Mass/Vol] 32 g/dL 29.9 - 35.2 g/dL [facility] MCV (RBC) [Entitic vol] 83.8 fL 81.0 - 99.0 fL [facility] MONOCYTES ABSOLUTE AUTO 0.5 [facility] Monocytes/100 WBC (Bld) 8.6 % 1.7 - 12.0 % [facility] NEUTROPHILS ABSOLUTE AUTO 4.4 [facility] Neutrophils/100 WBC (Bld) 69.6 % 43.0 - 75.0 % [facility] Platelet mean volume (Bld) [Entitic vol] 10.3 fL 9.5 - 13.5 fL [facility] TBH EO # 0 [facility] TBH PLT 200 [facility] RBC 4.02 Low [facility] WBC 6.3 [facility] Urinalysis macro (dipstick) panel (U)on 04-05-2024 Bilirubin, UA Negative Negative - 4(70) +++ mg/dL [facility] Blood, UA Negative Negative - 50 Daniel/mcL [facility] Clarity, UA Clear [facility] Color, UA Yellow [facility] Glucose, UA Negative Negative - 1999(110) ++++ mg/dL [facility] Interpretation and review of laboratory results Normal [facility] Ketones, UA Negative Negative - 160(16) ++++ mg/dL [facility] Leukocytes, UA Negative Negative - 500+++ Gavin/mcL [facility] Nitrite, UA Negative Negative - Positive [facility] pH, UA 5.5 5 - 9 [facility] Protein, UA Negative Negative - 1999(20) ++++ mg/dL [facility] Spec Grav, UA 1.025 1 - 1.03 [facility] Urobilinogen, UA 0.2 0.2 - 12 mg/dL [facility] AFP, SERUM, OPEN SPINA BIFID Aon 02-20-2024 AFP MOM 0.72 . [facility] AFP VALUE 27.2 ng/mL . [facility] COMMENT: Comment . [facility] Comment on above: Tiffanie Petersen , Ph.D., [employer] Director References: Available Upon Request. Multiples Of Median Cutoffs For AFP Elevations Patrick 2.5 Black 2.8 IDD 2.0 Twins 4.5 Abbreviation Definitions IDD - Insulin Dep Diabetes OSBR - Open Spina Bifida Risk For further inquiries contact [employer] [facility] at [phone]. This test was developed and its performance characteristics determined by [employer]. It has not been cleared or approved by the Food and Drug Administration. Performed at: [facility] [address] [place], [place] [id number] Outboard System Operator: Tor Real [facility], Phone: [phone] GEST. AGE ON COLLECTION DATE 18.3 . weeks [facility] GESTAT. AGE BASED ON LMP . [facility] Comment on above: Recalculations are n ot recommended when gestational dating by LMP and ultrasound are within 10 days. INSULIN DEP DIABETES No . [facility] INTERPRETATION Comment . [facility] Comment on above: Interpretation: Scre [...] Customer Services to discuss available options. The [place] [employer] recommends amniocentesis be offered to women age 35 and older. [age] [facility] MULTIPLE GESTATION No . [facility] [place] [id number] . [facility] RACE . [facility] RESULTS Report . [facility] TEST RESULTS: Negative . [facility] WEIGHT 198 . lbs [facility] N N LMP [id number] N 1 Y 198 N N N N N White/ [facility] RECURRENT VAGINITIS (HTRX)on 02-11-2024 ATOPOBIUM VAGINAE 0 [facility] ATOPOBIUM VAGINAE Not detected [facility] BVAB 2,3 (BACTERIAL VAGINOSIS ASSOCIATED BACTERIA 2, 3); MOBILUNCUS SPP 0 [facility] BVAB 2,3 (BACTERIAL VAGINOSIS ASSOCIATED BACTERIA 2, 3); MOBILUNCUS SPP Not detected [facility] MARGARET ALBICANS, PARAPSILOSIS, TROPICALIS 0 [facility] MARGARET ALBICANS, PARAPSILOSIS, TROPICALIS Not detected [facility] MARGARET GLABRATA 0 [facility] MARGARET GLABRATA Not detected [facility] MARGARET KRUSEI 0 [facility] MARGARET KRUSEI Not detected [facility] CHLAMYDIA TRACHOMATIS 0 [facility] CHLAMYDIA TRACHOMATIS Not detected [facility] GARDNERELLA VAGINALIS 0 [facility] GARDNERELLA VAGINALIS Not detected [facility] MEGASPHAERA (TYPES 1, 2) 0 [facility] MEGASPHAERA (TYPES 1, 2) Not detected [facility] MYCOPLASMA GENITALIUM 0 [facility] MYCOPLASMA GENITALIUM Not detected [facility] NEISSERIA GONORRHOEAE 0 [facility] NEISSERIA GONORRHOEAE Not detected [facility] TRICHOMONAS VAGINALIS 0 [facility] TRICHOMONAS VAGINALIS Not detected [facility] Urinalysis macro (dipstick) panel (U)on 02-09-2024 Bilirubin, UA Negative Negative - 4(70) +++ mg/dL [facility] Blood, UA Negative Negative - 50 Daniel/mcL [facility] Clarity, UA Clear [facility] Color, UA Yellow [facility] Glucose, UA Negative Negative - 1999(110) ++++ mg/dL [facility] Interpretation and review of laboratory results Normal [facility] Ketones, UA Negative Negative - 160(16) ++++ mg/dL [facility] Leukocytes, UA Negative Negative - 500+++ Gavin/mcL [facility] Nitrite, UA Negative Negative - Positive [facility] pH, UA 5.5 5 - 9 [facility] Protein, UA Negative Negative - 1999(20) ++++ mg/dL [facility] Spec Grav, UA 1.02 1 - 1.03 [facility] Urobilinogen, UA 0.2 0.2 - 12 mg/dL [facility] ALL CBC WITH AUTO DIFFon BASOPHILS ABSOLUTE AUTO 0.0 [facility] Basophils/100 WBC (Bld) 0.1 % Low 0.2 - 2.0 % [facility] Eosinophils/100 WBC (Bld) 1.0 % 0.9 - 7.0 % [facility] Erythrocyte distribution width (RBC) [Ratio] 13.2 % 11.0 - 15.0 % [facility] Hematocrit (Bld) [Volume fraction] 36.4 % 36.0 - 48.0 % [facility] Hemoglobin (Bld) [Mass/Vol] 11.9 g/dL Low 12.0 - 16.0 g/dL [facility] IMMATURE GRANULOCYTES ABS AUTO 0.01 [facility] Immature granulocytes/100 WBC (Bld) 0.1 % 0.0 - 0.5 % [facility] Interpretation and review of laboratory results Abnormal [facility] LYMPHOCYTES ABSOLUTE AUTO 1.5 [facility] Lymphocytes/100 WBC (Bld) 22.8 % 20.5 - 60.0 % [facility] MCH (RBC) [Entitic mass] 28.1 pg 26.7 - 34.0 pg [facility] MCHC (RBC) [Mass/Vol] 32.7 g/dL 29.9 - 35.2 g/dL [facility] MCV (RBC) [Entitic vol] 86.1 fL 81.0 - 99.0 fL [facility] MONOCYTES ABSOLUTE AUTO 0.4 [facility] Monocytes/100 WBC (Bld) 6.0 % 1.7 - 12.0 % [facility] NEUTROPHILS ABSOLUTE AUTO 4.7 [facility] Neutrophils/100 WBC (Bld) 70.0 % 43.0 - 75.0 % [facility] Platelet mean volume (Bld) [Entitic vol] 10.7 fL 9.5 - 13.5 fL [facility] EO # 0.1 [facility] PLT 213 [facility] RBC 4.23 [facility] WBC 6.7 [facility] Urinalysis macro (dipstick) panel (U)on 01-07-2024 Bilirubin, UA Negative Negative - 4(70) +++ mg/dL [facility] Blood, UA Negative Negative - 50 Daniel/mcL [facility] Clarity, UA Clear [facility] Color, UA Yellow [facility] Glucose, UA Negative Negative - 2000(110) ++++ mg/dL [facility] Interpretation and review of laboratory results Normal [facility] Ketones, UA Negative Negative - 160(16) ++++ mg/dL [facility] Leukocytes, UA Negative Negative - 500+++ Gavin/mcL [facility] Nitrite, UA Negative Negative - Positive [facility] pH, UA 6.5 5 - 9 [facility] Protein, UA Negative Negative - 2000(20) ++++ mg/dL [facility] Spec Grav, UA 1.020 1 - 1.03 [facility] Urobilinogen, UA 1.0 0.2 - 12 mg/dL [facility] ALL CBC WITH AUTO DIFFon BASOPHILS ABSOLUTE AUTO 0.0 [facility] Basophils/100 WBC (Bld) 0.3 % 0.2 - 2.0 % [facility] Eosinophils/100 WBC (Bld) 0.9 % 0.9 - 7.0 % [facility] Erythrocyte distribution width (RBC) [Ratio] 13.0 % 11.0 - 15.0 % [facility] Hematocrit (Bld) [Volume fraction] 39.1 % 36.0 - 48.0 % [facility] Hemoglobin (Bld) [Mass/Vol] 12.8 g/dL 12.0 - 16.0 g/dL [facility] IMMATURE GRANULOCYTES ABS AUTO 0.02 [facility] Immature granulocytes/100 WBC (Bld) 0.3 % 0.0 - 0.5 % [facility] Interpretation and review of laboratory results Abnormal [facility] LYMPHOCYTES ABSOLUTE AUTO 1.6 [facility] Lymphocytes/100 WBC (Bld) 20.4 % Low 20.5 - 60.0 % [facility] MCH (RBC) [Entitic mass] 27.8 pg 26.7 - 34.0 pg [facility] MCHC (RBC) [Mass/Vol] 32.7 g/dL 29.9 - 35.2 g/dL [facility] MCV (RBC) [Entitic vol] 84.8 fL 81.0 - 99.0 fL [facility] MONOCYTES ABSOLUTE AUTO 0.6 [facility] Monocytes/100 WBC (Bld) 7.1 % 1.7 - 12.0 % [facility] NEUTROPHILS ABSOLUTE AUTO 5.5 [facility] Neutrophils/100 WBC (Bld) 71.0 % 43.0 - 75.0 % [facility] Platelet mean volume (Bld) [Entitic vol] 10.2 fL 9.5 - 13.5 fL [facility] EO # 0.1 [facility] PLT 254 [facility] RBC 4.61 [facility] WBC 7.7 [facility] Urinalysis macro (dipstick) panel (U)on 12-17-2023 Bilirubin, UA Negative Negative - 4(70) +++ mg/dL [facility] Blood, UA Negative Negative - 50 Daniel/mcL [facility] Clarity, UA Clear [facility] Color, UA Yellow [facility] Glucose, UA Negative Negative - 1999(110) ++++ mg/dL [facility] Interpretation and review of laboratory results Abnormal [facility] Ketones, UA Positive Negative - 160(16) ++++ mg/dL [facility] Comment on above: 15 Leukocytes, UA Negative Negative - 500+++ Gavin/mcL [facility] Nitrite, UA Negative Negative - Positive [facility] pH, UA 6.5 5 - 9 [facility] Protein, UA Negative Negative - 1999(20) ++++ mg/dL [facility] Spec Grav, UA 1.030 1 - 1.03 [facility] Urobilinogen, UA 1.0 0.2 - 12 mg/dL [facility] HCG ( test) Ql (U)o n 12-12-2023 Interpretation and review of laboratory results Abnormal [facility] Preg Test, Ur Positive [facility] Urinalysis macro (dipstick) panel (U)on 12-12-2023 Bilirubin, UA Positive Negative - 4(70) +++ mg/dL [facility] Comment on above: small Blood, UA Negative Negative - 50 Daniel/mcL [facility] Clarity, UA Clear [facility] Color, UA Yellow [facility] Glucose, UA Negative Negative - 1999(110) ++++ mg/dL [facility] Interpretation and review of laboratory results Abnormal [facility] Ketones, UA Positive Negative - 160(16) ++++ mg/dL [facility] Comment on above: trace Leukocytes, UA Negative Negative - 500+++ Gavin/mcL [facility] Nitrite, UA Negative Negative - Positive [facility] pH, UA 6.0 5 - 9 [facility] Protein, UA Positive Negative - 1999(20) ++++ mg/dL [facility] Comment on above: 30 Spec Grav, UA 1.030 1 - 1.03 [facility] Urobilinogen, UA 0.2 0.2 - 12 mg/dL [facility] Cytology Cervical or vaginal smear or scraping studyon 03-05-2023 [facility] CBC AUTO DIFFon 07-25-2022 BASO # 0.0 103/ul Normal 0.0-0.1 [facility] Comment on above: Performed By: #### C BC #### [facility] [address] [address] [address] Jerry Samuel Basophils/100 WBC (Bld) 0.3 % Normal 0.2-2.0 [facility] Comment on above: Performed By: #### C BC #### [facility] [address] [place] [address] Dr. Jerry Samuel EO # 0.1 103/ul Normal 0.0-0.7 [facility] Comment on above: Performed By: #### C BC #### [facility] [address] [place] [address] Dr. Jerry Samuel Eosinophils/100 WBC (Bld) 1.4 % Normal 0.9-7.0 [facility] Comment on above: Performed By: #### C BC #### [facility] [address] [place] [address] Dr. Jerry Samuel Erythrocyte distribution width (RBC) [Ratio] 13.2 % Normal 11.0-15.0 [facility] Comment on above: Performed By: #### C BC #### [facility] [address] [place] [address] Dr. Jerry Samuel Hematocrit (Bld) [Volume fraction] 33.9 % Critically low 36.0-48.0 [facility] Comment on above: Performed By: #### C BC #### [facility] [address] [place] [address] Dr. Jerry Samuel Hemoglobin (Bld) [Mass/Vol] 11.3 g/dL Critically low 12.0-16.0 [facility] Comment on above: Performed By: #### C BC #### [facility] [address] [place] [address] Dr. Jerry Samuel IG # 0.04 10e3/ul Critically high 0.00-0.03 [facility] Comment on above: Performed By: #### C BC #### [facility] [address] [place] [address] Dr. Jerry Samuel IG % 0.6 % Critically high 0.0-0.5 [facility] Comment on above: Performed By: #### C BC #### [facility] [address] [place] [address] Dr. Jerry Samuel LYMPH # 1.9 103/ul Normal 1.2-3.8 [facility] Comment on above: Performed By: #### C BC #### [facility] [address] [place] [address] Dr. Jerry Samuel Lymphocytes/100 WBC (Bld) 30.2 % Normal 20.5-60.0 [facility] Comment on above: Performed By: #### C BC #### [facility] [address] [place] [address] Dr. Jerry Samuel MANUAL DIFF REQ NO Normal [facility] Comment on above: Performed By: #### C BC #### [facility] [address] [place] [address] Dr. Jerry Samuel MCH (RBC) [Entitic mass] 29.9 pg Normal 26.7-34.0 [facility] Comment on above: Performed By: #### C BC #### [facility] [address] [place] [address] Dr. Jerry Samuel MCHC (RBC) [Mass/Vol] 33.3 g/dL Normal 29.9-35.2 [facility] Comment on above: Performed By: #### C BC #### [facility] [address] [place] [address] Dr. Jerry Samuel MCV (RBC) [Entitic vol] 89.7 fL Normal 81.0-99.0 [facility] Comment on above: Performed By: #### C BC #### [facility] [address] [place] [address] Dr. Jerry Samuel MONO # 0.5 103/ul Normal 0.3-0.8 [facility] Comment on above: Performed By: #### C BC #### [facility] [address] [place] [address] Dr. Jerry Samuel Monocytes/100 WBC (Bld) 7.2 % Normal 1.7-12.0 [facility] Comment on above: Performed By: #### C BC #### [facility] [address] [place] [address] Dr. Jerry Samuel NEUT # 3.8 103/ul Normal 1.4-6.5 [facility] Comment on above: Performed By: #### C BC #### [facility] [address] [place] [address] Dr. Jerry Samuel Neutrophils/100 WBC (Bld) 60.3 % Normal 43.0-75.0 [facility] Comment on above: Performed By: #### C BC #### [facility] [address] [place] [address] Dr. Jerry Samuel Platelet mean volume (Bld) [Entitic vol] 9.8 fL Normal 9.5-13.5 [facility] Comment on above: Performed By: #### C BC #### [facility] [address] [place] [address] Dr. Jerry Samuel PLT 188 103/ul Normal 150-450 [facility] Comment on above: Performed By: #### C BC #### [facility] [address] [place] [address] Dr. Jerry Samuel RBC 3.78 106/ul Critically low 4.20-5.40 [facility] Comment on above: Performed By: #### C BC #### [facility] [address] [place] [address] Dr. Jerry Samuel WBC 6.2 103/ul Normal 4.0-11.0 [facility] Comment on above: Performed By: #### C BC #### [facility] [address] [place] [address] Dr. Jerry Samuel GLUCOSE - 1HRon 07-25-2022 Glucose [Mass/Vol] 100 mg/dL Normal 74-106 [facility] Comment on above: Performed By: #### N BOX #### [facility] [address] [address] [address] Jerry Samuel US PREG ANATOMY SINGLEon [...] ABRIL SCANLON Date: 2022-07-02 13:45 Normal [facility] AFP MATERNAL FOR SPINA BIFID Aon 06-14-2022 AFP MoM 0.87 Normal [facility] Comment on above: Performed By: #### R PRQ #### [facility] [address] [address] [address] Jerry Samuel AFP Value 39.6 ng/mL Normal [facility] Comment on above: Performed By: #### R PRQ #### [facility] [address] [place] [address] Dr. Jerry Samuel AFP, Serum for Spina Bifida Report Normal [facility] Comment on above: Performed By: #### R PRQ #### [facility] [address] [place] [address] Dr. Jerry Samuel Comment Comment Normal [facility] Comment on above: Result Comment: Irina Petersen, Ph.D., [employer] Director . References: Available Upon Request. . Multiples Of Median Cutoffs For AFP Elevations Patrick 2.5 Black 2.8 IDD 2.0 Twins 4.5 Abbreviation Definitions IDD - Insulin Dep Diabetes OSBR - Open Spina Bifida Risk . For further inquiries contact [employer] [facility] at [phone]. . This test was developed and its performance characteristics determined by [employer]. It has not been cleared or approved by the Food and Drug Administration. Performed By: #### R PRQ #### [facility] [address] [place] [address] Dr. Jerry Samuel Gest Age Collection Date 18.9 weeks Normal [facility] Comment on above: Performed By: #### R PRQ #### [facility] [address] [place] [address] Dr. Jerry Samuel Gestat, Age Based on Ultrasound Normal [facility] Comment on above: Result Comment: 09.0 on 04/04/2022 Recalculations are not recommended when gestational dating by LMP and ultrasound are within 10 days. Performed By: #### R PRQ #### [facility] [address] [place] [address] Dr. Jerry Samuel Insulin Dep Diabetes No Normal [facility] Comment on above: Performed By: #### R PRQ #### [facility] [address] [place] [address] Dr. Jerry Samuel Interpretation Comment Normal [facility] Comment on above: Result Comment: Inte rpretation: [...] Customer Services to discuss available options. The [employer] recommends amniocentesis be offered to women age 35 and older. Performed By: #### R PRQ #### [facility] [address] [place] [address] Dr. Jerry Samuel Maternal Age at ROLANDO 27.[address] [facility] Comment on above: Performed By: #### R PRQ #### [facility] [address] [address] [address] Jerry Samuel Multiple Gestation No Normal [facility] Comment on above: Performed By: #### R PRQ #### [facility] [address] [place] [address] Dr. Jerry Samuel [place] [address] Normal [facility] Comment on above: Performed By: #### R PRQ #### [facility] [address] [place] [address] Dr. Jerry Samuel PDF . Normal [facility] Comment on above: Performed By: #### R PRQ #### [facility] [address] [place] [address] Dr. Jerry Samuel Race Normal [facility] Comment on above: Performed By: #### R PRQ #### [facility] [address] [place] [address] Dr. Jerry Samuel Test Results: Negative Normal [facility] Comment on above: Performed By: #### R PRQ #### [facility] [address] [place] [address] Dr. Jerry Samuel CHLAMYDIA/GONOCOCCUS ELINOR (SW AB/URINE/PAPon 06-07-2022 Chlamydia trachomatis, ELINOR Negative Normal Negative [facility] Comment on above: Performed By: #### R PRQ #### [facility] [address] [place] [address] Dr. Jerry Samuel Neisseria gonorrhoeae, ELINOR Negative Normal Negative [facility] Comment on above: Performed By: #### R PRQ #### [facility] [address] [place] [address] Dr. Jerry Samuel VAGINITIS/VAGINOSIS DNA PROB Nayan 06-06-2022 Margaret species Negative Normal Negative [facility] Comment on above: Performed By: #### V AGINT #### [facility] [address] [place] [address] Dr. Jerry Samuel Gardnerella vaginalis Negative Normal Negative [facility] Comment on above: Performed By: #### V AGINT #### [facility] [address] [place] [address] Dr. Jerry Samuel Trichomonas vaginalis Negative Normal Negative [facility] Comment on above: Performed By: #### V AGINT #### [facility] [address] [place] [address] Dr. Jerry Samuel CBC AUTO DIFFon 05-26-2022 BASO # 0.0 103/ul Normal 0.0-0.1 [facility] Comment on above: Performed By: #### C BC #### [facility] [address] [place] [address] Dr. Jerry Samuel Basophils/100 WBC (Bld) 0.1 % Critically low 0.2-2.0 [facility] Comment on above: Performed By: #### C BC #### [facility] [address] [place] [address] Dr. Jerry Samuel EO # 0.0 103/ul Normal 0.0-0.7 [facility] Comment on above: Performed By: #### C BC #### [facility] [address] [place] [address] Dr. Jerry Samuel Eosinophils/100 WBC (Bld) 0.4 % Critically low 0.9-7.0 [facility] Comment on above: Performed By: #### C BC #### [facility] [address] [place] [address] Dr. Jerry Samuel Erythrocyte distribution width (RBC) [Ratio] 12.6 % Normal 11.0-15.0 [facility] Comment on above: Performed By: #### C BC #### [facility] [address] [place] [address] Dr. Jerry Samuel Hematocrit (Bld) [Volume fraction] 34.0 % Critically low 36.0-48.0 [facility] Comment on above: Performed By: #### C BC #### [facility] [address] [place] [address] Dr. Jerry Samuel Hemoglobin (Bld) [Mass/Vol] 11.6 g/dL Critically low 12.0-16.0 [facility] Comment on above: Performed By: #### C BC #### [facility] [address] [place] [address] Dr. Jerry Samuel IG # 0.03 10e3/ul Normal 0.00-0.03 [facility] Comment on above: Performed By: #### C BC #### [facility] [address] [place] [address] Dr. Jerry Samuel IG % 0.4 % Normal 0.0-0.5 [facility] Comment on above: Performed By: #### C BC #### [facility] [address] [place] [address] Dr. Jerry Samuel LYMPH # 1.1 103/ul Critically low 1.2-3.8 [facility] Comment on above: Performed By: #### C BC #### [facility] [address] [place] [address] Dr. Jerry Samuel Lymphocytes/100 WBC (Bld) 16.5 % Critically low 20.5-60.0 [facility] Comment on above: Performed By: #### C BC #### [facility] [address] [place] [address] Dr. Jerry Samuel MANUAL DIFF REQ NO Normal [facility] Comment on above: Performed By: #### C BC #### [facility] [address] [place] [address] Dr. Jerry Samuel MCH (RBC) [Entitic mass] 29.1 pg Normal 26.7-34.0 [facility] Comment on above: Performed By: #### C BC #### [facility] [address] [place] [address] Dr. Jerry Samuel MCHC (RBC) [Mass/Vol] 34.1 g/dL Normal 29.9-35.2 [facility] Comment on above: Performed By: #### C BC #### [facility] [address] [place] [address] Dr. Jerry Samuel MCV (RBC) [Entitic vol] 85.2 fL Normal 81.0-99.0 [facility] Comment on above: Performed By: #### C BC #### [facility] [address] [place] [address] Dr. Jerry Samuel MONO # 0.4 103/ul Normal 0.3-0.8 [facility] Comment on above: Performed By: #### C BC #### [facility] [address] [place] [address] Dr. Jerry Samuel Monocytes/100 WBC (Bld) 6.0 % Normal 1.7-12.0 [facility] Comment on above: Performed By: #### C BC #### [facility] [address] [place] [address] Dr. Jerry Samuel NEUT # 5.1 103/ul Normal 1.4-6.5 [facility] Comment on above: Performed By: #### C BC #### [facility] [address] [place] [address] Dr. Jerry Samuel Neutrophils/100 WBC (Bld) 76.6 % Critically high 43.0-75.0 [facility] Comment on above: Performed By: #### C BC #### [facility] [address] [place] [address] Dr. Jerry Samuel Platelet mean volume (Bld) [Entitic vol] 10.5 fL Normal 9.5-13.5 [facility] Comment on above: Performed By: #### C BC #### [facility] [address] [place] [address] Dr. Jerry Samuel PLT 207 103/ul Normal 150-450 [facility] Comment on above: Performed By: #### C BC #### [facility] [address] [place] [address] Dr. Jerry Samuel RBC 3.99 106/ul Critically low 4.20-5.40 [facility] Comment on above: Performed By: #### C BC #### [facility] [address] [place] [address] Dr. Jerry Samuel WBC 6.7 103/ul Normal 4.0-11.0 [facility] Comment on above: Performed By: #### C BC #### [facility] [address] [place] [address] Dr. Jerry Samuel ER URINE PROFILEon 3 Bilirubin Ql (U) Negative Normal NEGATIVE [facility] Comment on above: Performed By: #### E RUR #### [facility] [address] [place] [address] Dr. Jerry Samuel Clarity (U) CLEAR Normal CLEAR [facility] Comment on above: Performed By: #### E RUR #### [facility] [address] [place] [address] Dr. Jerry Samuel Color (U) LT. YELLOW Normal YELLOW [facility] Comment on above: Performed By: #### E RUR #### [facility] [address] [place] [address] Dr. Jerry Samuel ERUSARAI A micrscopic examina tion will be performed if indicated. Normal [facility] Comment on above: Performed By: #### E RUR #### [facility] [address] [place] [address] Dr. Jerry Samuel Glucose Ql (U) Negative Normal NEGATIVE [facility] Comment on above: Performed By: #### E RUR #### [facility] [address] [place] [address] Dr. Jerry Samuel Hemoglobin Ql (U) Negative Normal NEGATIVE [facility] Comment on above: Performed By: #### E RUR #### [facility] [address] [place] [address] Dr. Jerry Samuel Ketones Ql (U) Negative Normal NEGATIVE [facility] Comment on above: Performed By: #### E RUR #### [facility] [address] [place] [address] Dr. Jerry Samuel LEUKOCYTES Negative Normal NEGATIVE [facility] Comment on above: Performed By: #### E RUR #### [facility] [address] [place] [address] Dr. Jerry Samuel Nitrite Ql (U) Negative Normal NEGATIVE [facility] Comment on above: Performed By: #### E RUR #### [facility] [address] [place] [address] Dr. Jerry Samuel pH (U) 6.5 [pH] Normal 5-9 [facility] Comment on above: Performed By: #### E RUR #### [facility] [address] [place] [address] Dr. Jerry Samuel SPEC GRAVITY <=1.005 Abnormal 1.005-<=1.025 [facility] Comment on above: Performed By: #### E RUR #### [facility] [address] [place] [address] Dr. Jerry Samuel UA PROTEIN Negative Normal NEGATIVE/ TRACE [facility] Comment on above: Performed By: #### E RUR #### [facility] [address] [place] [address] Dr. Jerry Samuel UR MICRO IND NOT INDICATED Normal [facility] Comment on above: Performed By: #### E RUR #### [facility] [address] [place] [address] Dr. Jerry Samuel Urobilinogen Qn (U) 0.2 {Charlette'U}/dL Normal 0.2 - 1. 0 [facility] Comment on above: Performed By: #### E RUR #### [facility] [address] [place] [address] Dr. Jerry Samuel PROF 14(COMP METB)on 023 Albumin [Mass/Vol] 3.4 g/dL Normal 3.4-5.0 [facility] Comment on above: Performed By: #### R PRQ #### [facility] [address] [place] [address] Dr. Jerry Samuel Albumin/Globulin [Mass ratio] 1.0 {ratio} Normal [facility] Comment on above: Performed By: #### R PRQ #### [facility] [address] [address] [address] Jerry Samuel ALP [Catalytic activity/Vol] 33 U/L Critically low 46-116 [facility] Comment on above: Performed By: #### R PRQ #### [facility] [address] [address] [address] Jerry Samuel ALT [Catalytic activity/Vol] 16 U/L Normal 14-59 [facility] Comment on above: Performed By: #### R PRQ #### [facility] [address] [address] [address] Jerry Samuel Anion gap [Moles/Vol] 8.5 mmol/L Normal [facility] Comment on above: Performed By: #### R PRQ #### [facility] [address] [place] [address] Dr. Jerry Samuel AST [Catalytic activity/Vol] 12 U/L Critically low 15-37 [facility] Comment on above: Performed By: #### R PRQ #### [facility] [address] [address] [address] Jerry Samuel Bilirubin [Mass/Vol] 0.3 mg/dL Normal 0.2-1.0 [facility] Comment on above: Performed By: #### R PRQ #### [facility] [address] [place] [address] Dr. Jerry Samuel Calcium [Mass/Vol] 9.2 mg/dL Normal 8.5-10.1 [facility] Comment on above: Performed By: #### R PRQ #### [facility] [address] [address] [address] Jerry Samuel Chloride [Moles/Vol] 105 mmol/L Normal 98-107 [facility] Comment on above: Performed By: #### R PRQ #### [facility] [address] [place] [address] Dr. Jerry Samuel CO2 [Moles/Vol] 25.0 mmol/L Normal 21.0-32.0 [facility] Comment on above: Performed By: #### R PRQ #### [facility] [address] [address] [address] Jerry Samuel Creatinine [Mass/Vol] 0.40 mg/dL Critically low 0.55-1.02 [facility] Comment on above: Performed By: #### R PRQ #### [facility] [address] [address] [address] Jerry Samuel EGFR-AF YEMENI >60 Normal >=60 [facility] Comment on above: Performed By: #### R PRQ #### [facility] [address] [address] [address] Jerry Samuel EGFR-NON AF YEMENI >60 Normal >=60 [facility] Comment on above: Performed By: #### R PRQ #### [facility] [address] [place] [address] Dr. Jerry Samuel Globulin (S) [Mass/Vol] 3.5 g/dL Normal [facility] Comment on above: Performed By: #### R PRQ #### [facility] [address] [place] [address] Dr. Jerry Samuel Glucose [Mass/Vol] 94 mg/dL Normal 74-106 [facility] Comment on above: Performed By: #### R PRQ #### [facility] [address] [place] [address] Dr. Jerry Samuel Potassium [Moles/Vol] 3.5 mmol/L Normal 3.5-5.1 [facility] Comment on above: Performed By: #### R PRQ #### [facility] [address] [place] [address] Dr. Jerry Samuel Protein [Mass/Vol] 6.9 g/dL Normal 6.4-8.2 [facility] Comment on above: Performed By: #### R PRQ #### [facility] [address] [place] [address] Dr. Jerry Samuel Sodium [Moles/Vol] 135 mmol/L Critically low 136-[address] [facility] Comment on above: Performed By: #### R PRQ #### [facility] [address] [place], [place] [address] Dr. Jerry Samuel Urea nitrogen [Mass/Vol] 6.0 mg/dL Critically low 7.0-18.0 [facility] Comment on above: Performed By: #### R PRQ #### [facility] [address] [place] [address] Dr. Jerry Samuel Urea nitrogen/Creatinine [Mass ratio] 15.0 mg/mg Normal [facility] Comment on above: Performed By: #### R PRQ #### [facility] [address] [place] [address] Dr. Jerry Samuel DOROTEO BOX TEST PT SEND OUTo n 05-02-2022 SENT TO REF LAB 05/02/2022 Normal [facility] Comment on above: Performed By: #### N BOX #### [facility] [address] [place] [address] Dr. Jerry Samuel HEP B SURFACE ANTIGEN SCREEN on 04-05-2022 HBsAg Screen Negative Normal Negative [facility] Comment on above: Performed By: #### N BOX #### [facility] [address] [place] [address] Dr. Jerry Samuel HEPATITIS C VIRUS AB W/ REFL EX QUANTon 04-05-2022 HCV AB <0.1 Normal 0.0-0.9 [facility] Comment on above: Performed By: #### H CVPCRR #### [facility] [address] [place] [address] Dr. Jerry Samuel Interpretation: Comment Normal [facility] Comment on above: Result Comment: Nega tive Not infected with HCV, unless recent infection is suspected or other evidence exists to indicate HCV infection. Performed By: #### H CVPCRR #### [facility] [address] [place] [address] Dr. Jerry Samuel HIV 1 AND 2 WITH REFLEXon HIV Screen 4th Generation wRfx Non-Reactive Normal Non Reactive [facility] Comment on above: Result Comment: HIV Negative HIV-1/HIV-2 antibodies and HIV-1 p24 antigen were NOT detected. There is no laboratory evidence of HIV infection. Performed By: #### R PRQ #### [facility] [address] [place] [address] Dr. Jerry Samuel RPR QUANTon 04-05-2022 Rapid Plasma Reagin, Quant Non-Reactive Normal NonRea<1:1 [facility] Comment on above: Result [...] utilized, such as Treponema pallidum (Syphilis) Screening [place] (591409) or Rapid Plasma Reagin (RPR) Test With Reflex to Quantitative RPR and Confirmatory Treponema pallidum Antibodies (823983). Performed By: #### R PRQ #### [facility] [address] [place] [address] Dr. Jerry Samuel RUBELLA AB IGGon 04-05-2022 Rubella Antibodies, IgG 1.97 index Normal Immune >0.99 [facility] Comment on above: Result Comment: Non- immune <0.90 Equivocal 0.90 - 0.99 Immune >0.99 Performed By: #### R UBIGG #### [facility] [address] [place] [address] Dr. Jerry Samuel CBC AUTO DIFFon 04-04-2022 BASO # 0.0 103/ul Normal 0.0-0.1 [facility] Comment on above: Performed By: #### R PRQ #### [facility] [address] [place] [address] Dr. Jerry Samuel Basophils/100 WBC (Bld) 0.3 % Normal 0.2-2.0 [facility] Comment on above: Performed By: #### R PRQ #### [facility] [address] [place] [address] Dr. Jerry Samuel EO # 0.1 103/ul Normal 0.0-0.7 [facility] Comment on above: Performed By: #### R PRQ #### [facility] [address] [place] [address] Dr. Jerry Samuel Eosinophils/100 WBC (Bld) 0.7 % Critically low 0.9-7.0 [facility] Comment on above: Performed By: #### R PRQ #### [facility] [address] [place] [address] Dr. Jerry Samuel Erythrocyte distribution width (RBC) [Ratio] 12.3 % Normal 11.0-15.0 [facility] Comment on above: Performed By: #### R PRQ #### [facility] [address] [place] [address] Dr. Jerry Samuel Hematocrit (Bld) [Volume fraction] 35.1 % Critically low 36.0-48.0 [facility] Comment on above: Performed By: #### R PRQ #### [facility] [address] [place] [address] Dr. Jerry Samuel Hemoglobin (Bld) [Mass/Vol] 11.8 g/dL Critically low 12.0-16.0 [facility] Comment on above: Performed By: #### R PRQ #### [facility] [address] [place] [address] Dr. Jerry Samuel IG # 0.02 10e3/ul Normal 0.00-0.03 [facility] Comment on above: Performed By: #### R PRQ #### [facility] [address] [place] [address] Dr. Jerry Samuel IG % 0.3 % Normal 0.0-0.5 [facility] Comment on above: Performed By: #### R PRQ #### [facility] [address] [place] [address] Dr. Jerry Samuel LYMPH # 2.0 103/ul Normal 1.2-3.8 [facility] Comment on above: Performed By: #### R PRQ #### [facility] [address] [place] [address] Dr. Jerry Samuel Lymphocytes/100 WBC (Bld) 26.7 % Normal 20.5-60.0 [facility] Comment on above: Performed By: #### R PRQ #### [facility] [address] [place] [address] Dr. Jerry Samuel MANUAL DIFF REQ NO Normal [facility] Comment on above: Performed By: #### R PRQ #### [facility] [address] [place] [address] Dr. Jerry Samuel MCH (RBC) [Entitic mass] 29.0 pg Normal 26.7-34.0 [facility] Comment on above: Performed By: #### R PRQ #### [facility] [address] [place] [address] Dr. Jerry Samuel MCHC (RBC) [Mass/Vol] 33.6 g/dL Normal 29.9-35.2 [facility] Comment on above: Performed By: #### R PRQ #### [facility] [address] [place] [address] Dr. Jerry Samuel MCV (RBC) [Entitic vol] 86.2 fL Normal 81.0-99.0 [facility] Comment on above: Performed By: #### R PRQ #### [facility] [address] [place] [address] Dr. Jerry Samuel MONO # 0.5 103/ul Normal 0.3-0.8 [facility] Comment on above: Performed By: #### R PRQ #### [facility] [address] [place] [address] Dr. Jerry Samuel Monocytes/100 WBC (Bld) 6.7 % Normal 1.7-12.0 [facility] Comment on above: Performed By: #### R PRQ #### [facility] [address] [place] [address] Dr. Jerry Samuel NEUT # 4.9 103/ul Normal 1.4-6.5 [facility] Comment on above: Performed By: #### R PRQ #### [facility] [address] [place] [address] Dr. Jerry Samuel Neutrophils/100 WBC (Bld) 65.3 % Normal 43.0-75.0 [facility] Comment on above: Performed By: #### R PRQ #### [facility] [address] [place] [address] Dr. Jerry Samuel Platelet mean volume (Bld) [Entitic vol] 10.0 fL Normal 9.5-13.5 [facility] Comment on above: Performed By: #### R PRQ #### [facility] [address] [place] [address] Dr. Jerry Samuel PLT 218 103/ul Normal 150-450 [facility] Comment on above: Performed By: #### R PRQ #### [facility] [address] [place] [address] Dr. Jerry Samuel RBC 4.07 106/ul Critically low 4.20-5.40 [facility] Comment on above: Performed By: #### R PRQ #### [facility] [address] [place] [address] Dr. Jerry Samuel WBC 7.5 103/ul Normal 4.0-11.0 [facility] Comment on above: Performed By: #### R PRQ #### [facility] [address] [place] [address] Dr. Jerry Samuel CULTURE URINEon 04-04-2022 CULTURE URINE Culture Observations : NO GROWTH. Normal [facility] Comment on above: Performed By: #### N BOX #### [facility] [address] [place] [address] Dr. Jerry Samuel GLYCOHEMOGLOBIN A1Con 2021 ADA RECOMMENDATION SEE BELOW Normal [facility] Comment on above: Result Comment: ADA RECOMMENDED LIMIT 4.0 - 6.0 ADA THERAPEUTIC TARGET < 7.0 ACTION SUGGESTED > 7.0 Performed By: #### N BOX #### [facility] [address] [place] [address] Dr. Jerry Samuel Glucose [Mass/Vol] 97 mg/dL Normal [facility] Comment on above: Performed By: #### N BOX #### [facility] [address] [place] [address] Dr. Jerry Samuel HbA1c (Bld) [Mass fraction] 5.0 % Normal 4.5-6.2 [facility] Comment on above: Performed By: #### N BOX #### [facility] [address] [place] [address] Dr. Jerry Samuel TYPE AND SCREENon 04-04-2022 TYPE AND SCREEN Negative Normal [facility] Comment on above: Performed By: #### N BOX #### [facility] [address] [place] [address] Dr. Jerry Samuel US PREG TVon 04-04-2022 [...] EDITH WILLIS Date: 2022-04-04 16:13 Normal [facility] PREG QUANT HCGon 03-07-2022 HCG QUANT 2201 mIU/mL Normal [facility] Comment on above: Performed By: #### R PRQ #### [facility] [address] [place] [address] Dr. Jerry Samuel HCG RANGE SEE BELOW Normal [facility] Comment on above: Result Comment: 5-50 0.2-1 WEEK 50-500 1-2 WEEKS 100-5,000 2-3 WEEKS 500-10,000 3-4 WEEKS 1,000-50,000 4-5 WEEKS 10,000-100,000 5-6 WEEKS 15,000-200,000 6-8 WEEKS 10,000-100,000 2-3 MONTHS Performed By: #### R PRQ #### [facility] [address] [address] [address] Jerry Samuel PREG QUANT HCGon 03-05-2022 HCG QUANT 820 mIU/mL Normal [facility] Comment on above: Performed By: #### R PRQ #### [facility] [address] [place] [address] Dr. Jerry Samuel HCG RANGE SEE BELOW Normal [facility] Comment on above: Result Comment: 5-50 0.2-1 WEEK 50-500 1-2 WEEKS 100-5,000 2-3 WEEKS 500-10,000 3-4 WEEKS 1,000-50,000 4-5 WEEKS 10,000-100,000 5-6 WEEKS 15,000-200,000 6-8 WEEKS 10,000-100,000 2-3 MONTHS Performed By: #### R PRQ #### [facility] [address] [place] [address] Dr. Jerry Samuel PAP ACOG PANEL 2: 22 to 30on 02-21-2022 . . [facility] Comment on above: Performed By: #### R PRQ #### [facility] [address] [place] [address] Dr. Jerry Samuel Age Gdln ACOG Testing - [facility] Comment on above: Performed By: #### R PRQ #### [facility] [address] [place] [address] Dr. Jerry Samuel DIAGNOSIS: Comment [facility] Comment on above: Result Comment: NEGA TIVE FOR INTRAEPITHELIAL LESION OR MALIGNANCY. SPECIMEN REPROCESSED FOR INTERPRETATION. Performed By: #### R PRQ #### [facility] [address] [place] [address] Dr. Jerry Samuel Methodology: Comment [facility] Comment on above: Result Comment: This liquid based ThinPrep(R) pap test was screened with the use of an image guided system. Performed By: #### R PRQ #### [facility] [address] [place] [address] Dr. Jerry Samuel Note: Comment [facility] Comment on above: Result Comment: The Pap smear is a screening test designed to aid in the detection of premalignant and malignant conditions of the uterine cervix. It is not a diagnostic procedure and should not be used as the sole means of detecting cervical cancer. Both false-positive and false-negative reports do occur. . Performed By: #### R PRQ #### [facility] [address] [place] [address] Dr. Jerry Samuel Performed by: Comment [facility] Comment on above: Result Comment: Anders Roman, Patient Transporter (ASCP) Performed By: #### R PRQ #### [facility] [address] [place] [address] Dr. Jerry Samuel Reflex Criteria: Comment Normal [facility] Comment on above: Result Comment: The HPV DNA reflex criteria were not met with this specimen result therefore, no HPV testing was performed. . Performed By: #### R PRQ #### [facility] [address] [place] [address] Dr. Jerry Samuel Specimen adequacy: Comment Normal [facility] Comment on above: Result Comment: Sati sfactory for evaluation. Endocervical and/or squamous metaplastic cells (endocervical component) are present. Performed By: #### R PRQ #### [facility] [address] [place] [address] Dr. Jerry Samuel US PELVIS AND TRANSVAGon [...] EDITH WILLIS Date: 2022-02-13 14:34 Normal [facility] CBC AUTO DIFFon 02-12-2022 BASO # 0.0 103/ul Normal 0.0-0.1 [facility] Comment on above: Performed By: #### C BC #### [facility] [address] [place] [address] Dr. Jerry Samuel Basophils/100 WBC (Bld) 0.6 % Normal 0.2-2.0 [facility] Comment on above: Performed By: #### C BC #### [facility] [address] [address] [address] Jerry Samuel EO # 0.1 103/ul Normal 0.0-0.7 [facility] Comment on above: Performed By: #### C BC #### [facility] [address] [place] [address] Dr. Jerry Samuel Eosinophils/100 WBC (Bld) 1.2 % Normal 0.9-7.0 [facility] Comment on above: Performed By: #### C BC #### [facility] [address] [place] [address] Dr. Jerry Samuel Erythrocyte distribution width (RBC) [Ratio] 11.9 % Normal 11.0-15.0 [facility] Comment on above: Performed By: #### C BC #### [facility] [address] [place] [address] Dr. Jerry Samuel Hematocrit (Bld) [Volume fraction] 39.1 % Normal 36.0-48.0 [facility] Comment on above: Performed By: #### C BC #### [facility] [address] [place] [address] Dr. Jerry Samuel Hemoglobin (Bld) [Mass/Vol] 13.0 g/dL Normal 12.0-16.0 [facility] Comment on above: Performed By: #### C BC #### [facility] [address] [place] [address] Dr. Jerry Samuel IG # 0.01 10e3/ul Normal 0.00-0.03 [facility] Comment on above: Performed By: #### C BC #### [facility] [address] [place] [address] Dr. Jerry Samuel IG % 0.2 % Normal 0.0-0.5 [facility] Comment on above: Performed By: #### C BC #### [facility] [address] [place] [address] Dr. Jerry Samuel LYMPH # 2.4 103/ul Normal 1.2-3.8 [facility] Comment on above: Performed By: #### C BC #### [facility] [address] [place] [address] Dr. Jerry Samuel Lymphocytes/100 WBC (Bld) 37.7 % Normal 20.5-60.0 [facility] Comment on above: Performed By: #### C BC #### [facility] [address] [place] [address] Dr. Jerry Samuel MANUAL DIFF REQ NO Normal [facility] Comment on above: Performed By: #### C BC #### [facility] [address] [place] [address] Dr. Jerry Samuel MCH (RBC) [Entitic mass] 29.2 pg Normal 26.7-34.0 [facility] Comment on above: Performed By: #### C BC #### [facility] [address] [place] [address] Dr. Jerry Samuel MCHC (RBC) [Mass/Vol] 33.2 g/dL Normal 29.9-35.2 [facility] Comment on above: Performed By: #### C BC #### [facility] [address] [place] [address] Dr. Jerry Samuel MCV (RBC) [Entitic vol] 87.9 fL Normal 81.0-99.0 [facility] Comment on above: Performed By: #### C BC #### [facility] [address] [place] [address] Dr. Jerry Samuel MONO # 0.4 103/ul Normal 0.3-0.8 [facility] Comment on above: Performed By: #### C BC #### [facility] [address] [place] [address] Dr. Jerry Samuel Monocytes/100 WBC (Bld) 5.9 % Normal 1.7-12.0 [facility] Comment on above: Performed By: #### C BC #### [facility] [address] [place] [address] Dr. Jerry Samuel NEUT # 3.5 103/ul Normal 1.4-6.5 [facility] Comment on above: Performed By: #### C BC #### [facility] [address] [place] [address] Dr. Jerry Samuel Neutrophils/100 WBC (Bld) 54.4 % Normal 43.0-75.0 [facility] Comment on above: Performed By: #### C BC #### [facility] [address] [place] [address] Dr. Jerry Samuel Platelet mean volume (Bld) [Entitic vol] 9.9 fL Normal 9.5-13.5 [facility] Comment on above: Performed By: #### C BC #### [facility] [address] [place] [address] Dr. Jerry Samuel PLT 229 103/ul Normal 150-450 [facility] Comment on above: Performed By: #### C BC #### [facility] [address] [place] [address] Dr. Jerry Samuel RBC 4.45 106/ul Normal 4.20-5.40 [facility] Comment on above: Performed By: #### C BC #### [facility] [address] [place] [address] Dr. Jerry Samuel WBC 6.5 103/ul Normal 4.0-11.0 [facility] Comment on above: Performed By: #### C BC #### [facility] [address] [place] [address] Dr. Jerry Samuel FREE T4on 02-12-2022 Free T4 [Mass/Vol] 0.99 ng/dL Normal 0.76-1.46 [facility] Comment on above: Performed By: #### R PRQ #### [facility] [address] [place] [address] Dr. Jerry Samuel GLYCOHEMOGLOBIN A1Con 2021 ADA RECOMMENDATION SEE BELOW Normal [facility] Comment on above: Result Comment: ADA RECOMMENDED LIMIT 4.0 - 6.0 ADA THERAPEUTIC TARGET < 7.0 ACTION SUGGESTED > 7.0 Performed By: #### R PRQ #### [facility] [address] [place] [address] Dr. Jerry Samuel Glucose [Mass/Vol] 103 mg/dL Normal [facility] Comment on above: Performed By: #### R PRQ #### [facility] [address] [address] [address] Jerry Samuel HbA1c (Bld) [Mass fraction] 5.2 % Normal 4.5-6.2 [facility] Comment on above: Performed By: #### R PRQ #### [facility] [address] [address] [address] Jerry Samuel PROTIMEon 02-12-2022 INR Coag (PPP) [Relative time] 1.00 {INR} Normal [facility] Comment on above: Performed By: #### N BOX #### [facility] [address] [place] [address] Dr. Jerry Samuel INR GUIDELINES SEE BELOW Normal [facility] Comment on above: Result Comment: SACHA RED INR: 2.0 - 3.0 CONDITIONS NOT LISTED BELOW 2.5 - 3.5 FOR PROSTHETIC HEART VALVE REPLACEMENT 2.5 - 3.5 RECURRENT THROMBOSIS Performed By: #### N BOX #### [facility] [address] [place] [address] Dr. Jerry Samuel PT Coag (PPP) [Time] 10.8 s Normal 9.0-11.6 [facility] Comment on above: Performed By: #### N BOX #### [facility] [address] [place] [address] Dr. Jerry Samuel PTTon 02-12-2022 aPTT Coag (Bld) [Time] 27.8 s Normal 22.3-36.2 [facility] Comment on above: Performed By: #### N BOX #### [facility] [address] [place] [address] Dr. Jerry Samuel TSHon 02-12-2022 TSH 1.741 uIU/mL Normal 0.358-3.740 [facility] Comment on above: Performed By: #### T SH #### [facility] [address] [place] [address] Dr. Jerry Samuel Outside Recordson 11-20-2021 Outside Records [id number]#1.00OTG TIFF [facility] Outside Recordson 11-16-2021 Outside Records [id number]#1.00OT GTIFF [facility] HCG,Urineon 02-22-2021 Beta HCG ( test) Ql (U) Negative Normal [facility] Comment on above: Result Comment: PERF ORMED BY: [facility] [address] [place] [address] PATHOLOGIST [employer] SPECIALIST PRIYA WHITE M.D. Performed By: #### U HCG #### [address] 02-22-2021 L ---- Specimen: [id number] Received: 02/23/21 Status: DRE Elizabeth Num: [id number] Spec Type: Surgical Subm Dr: Edith Cagle Jr, Tissues: A Duodenum - Biopsy (DUODENUM BX) B Stomach - Biopsy/Polyp (ANTRUM BX) C Colon Biopsy (RANDOM COLON) Procedures: HE Stain/6, Gross/Micro L4/3 Patient Age/Sex Location Account Attending Physician LauritaKarivilma Amaya [id number] Edith Cagle Jr, DO SPEC NUM: [id number] RECD: 02/23/21 STATUS: DRE ELIZABETH NUM: [id number] CASIMIRO: 02/22/21- SUBM DR: Edith Cagle Jr, DO ENTERED: 02/23/[address]: ANITA TYPE: Surgical DEPT: S ENTERED BY: [id number] RECV BY: [id number] ORDERED: HE Stain/6, Gross/Micro L4/3 ORDERED: HE [...] in one cassette labeled B1. (SM/YJ) Specimen: [id number] Received: 02/23/21 Status: DRE Elizabeth Num: [id number] Spec Type: Surgical Subm Dr: Edith Cagle Jr, DO Tissues: A Duodenum - Biopsy (DUODENUM BX) B Stomach - Biopsy/Polyp (ANTRUM BX) C Colon Biopsy (RANDOM COLON) Procedures: HE Stain/6, Gross/Micro L4/3 Patient: Will Shay [id number] (Continued) Specimen: [id number] Received: 02/23/21 (Continued) Gross Description (Continued) Signed (signature on file) Gail Crockett MD 02/26/21 1601 Specimen: [id number] Received: 02/23/21 Status: DRE Elizabeth Num: [id number] Spec Type: Surgical Subm Dr: Edith Cagle Jr, DO Tissues: A Duodenum - Biopsy (DUODENUM BX) B Stomach - Biopsy/Polyp (ANTRUM BX) C Colon Biopsy (RANDOM COLON) Procedures: HE Stain/6, Gross/Micro L4/3 Patient: Will Shay Jose Luis [id number] (Continued) Specimen: [id number] Received: 02/23/21 (Continued) Gross Description (Continued) C. Received in formalin labeled with the patient's name, number and random colon rule out microscopic colitis are 2 marsh tissue fragments, 0.3 cm and 0.9 cm. Entirely submitted in one cassette labeled C1. (/Augusto) Microscopic Description A. Two glass slides with [...] were determined by the [facility] of [facility]. Immunohistochemistry assays have not been validated on decalcified tissue. Results should be interpreted with caution given the possibility of false negative results on decalcified specimens. They have not been cleared by the [place] Food and Drug Administration. The FDA has determined that such clearance or approval is not necessary. CPT Codes 13957?3, 77098 (more content not included)... Normal [facility] SARS-CoV-2 (COVID-19) RNA ELINOR+probe Ql (Unsp spec) Negative Normal Negative [facility] Comment on above: Order Comment: Healt hcare Worker?: N Result Comment: Testing for SARS-CoV-2 by RT-PCR This test was developed and its performance characteristics determined by [employer] ([employer]) and validated at the [facility]. This test has not been [...] is terminated or revoked sooner. PERFORMED BY: [place] [address] PATHOLOGIST [employer] SPECIALIST PRIYA WHITE M.D. Performed By: #### C OVID 19 [facility] #### [id number] [facility] Vital Signs Date Time Vital Sign Value Performing Clinician Facility 06-07-2024 15:03-0500 Body mass index (BMI) [Ratio] 28.86 kg/m2 Eddie Nova DO Work Phone: [facility] 06-07-2024 15:03-0500 Body weight 86.09 kg Eddie Nova DO Work Phone: [facility] 06-07-2024 15:03-0500 Diastolic blood pressure 70 mm[Hg] Eddie Nova DO Work Phone: [facility] 06-07-2024 15:03-0500 Systolic blood pressure 112 mm[Hg] Eddie Nova DO Work Phone: [facility] 05-24-2024 14:28-0500 Body mass index (BMI) [Ratio] 29.32 kg/m2 Eddie Nova DO Work Phone: [facility] 05-24-2024 14:28-0500 Body weight 87.45 kg Eddie Nova DO Work Phone: [facility] 05-24-2024 14:28-0500 Diastolic blood pressure 70 mm[Hg] Eddie Nova DO Work Phone: [facility] 05-24-2024 14:28-0500 Systolic blood pressure 120 mm[Hg] Eddie Nova DO Work Phone: [facility] 05-11-2024 13:15-0500 Body mass index (BMI) [Ratio] 29.19 kg/m2 Kirsty RAHMAN Work Phone: [facility] 05-11-2024 13:15-0500 Body weight 87.09 kg Kirsty RAHMAN Work Phone: [facility] 05-11-2024 13:15-0500 Diastolic blood pressure 60 mm[Hg] Kirsty Siu PA Work Phone: [facility] 05-11-2024 13:15-0500 Systolic blood pressure 110 mm[Hg] Kirsty Siu PA Work Phone: [facility] 04-27-2024 12:18-0500 Body mass index (BMI) [Ratio] 29.8 kg/m2 Eddie Nova DO Work Phone: [facility] 04-27-2024 12:18-0500 Body weight 88.91 kg Eddie Nova DO Work Phone: [facility] 04-27-2024 12:18-0500 Diastolic blood pressure 62 mm[Hg] Eddie Nova DO Work Phone: [facility] 04-27-2024 12:18-0500 Systolic blood pressure 106 mm[Hg] Eddie Nova DO Work Phone: [facility] 04-05-2024 13:24-0500 Body mass index (BMI) [Ratio] 30.38 kg/m2 Kirsty Siu PA Work Phone: [facility] 04-05-2024 13:24-0500 Body weight 90.63 kg Kirsty Siu PA Work Phone: [facility] 04-05-2024 13:24-0500 Diastolic blood pressure 64 mm[Hg] Kirsty Siu PA Work Phone: [facility] 04-05-2024 13:24-0500 Systolic blood pressure 104 mm[Hg] Kirsty Siu PA Work Phone: [facility] 03-08-2024 16:52-0500 Body mass index (BMI) [Ratio] 30.62 kg/m2 Eddie Nova DO Work Phone: [facility] 03-08-2024 16:52-0500 Body weight 91.35 kg Eddie Nova DO Work Phone: [facility] 03-08-2024 16:52-0500 Diastolic blood pressure 74 mm[Hg] Eddie Nova DO Work Phone: [facility] 03-08-2024 16:52-0500 Systolic blood pressure 116 mm[Hg] Eddie Nova DO Work Phone: [facility] 02-09-2024 16:03-0500 Body mass index (BMI) [Ratio] 30.11 kg/m2 Eddie Nova DO Work Phone: [facility] 02-09-2024 16:03-0500 Body weight 89.81 kg Eddie Nova DO Work Phone: [facility] 02-09-2024 16:03-0500 Diastolic blood pressure 70 mm[Hg] Eddie Nova DO Work Phone: [facility] 02-09-2024 16:03-0500 Systolic blood pressure 118 mm[Hg] Eddie Nova DO Work Phone: [facility] 01-07-2024 15:50-0400 Body mass index (BMI) [Ratio] 29.97 kg/m2 Eddie Nova DO Work Phone: [facility] 01-07-2024 15:50-0400 Body weight 89.41 kg Eddie Nova DO Work Phone: [facility] 01-07-2024 15:50-0400 Diastolic blood pressure 72 mm[Hg] Eddie Nova DO Work Phone: [facility] 01-07-2024 15:50-0400 Systolic blood pressure 106 mm[Hg] Eddie Nova DO Work Phone: [facility] 12-17-2023 11:17-0400 Body mass index (BMI) [Ratio] 30.33 kg/m2 Kirsty RAHMAN Work Phone: [facility] 12-17-2023 11:17-0400 Body weight 90.49 kg Kirsty RAHMAN Work Phone: [facility] 12-17-2023 11:17-0400 Diastolic blood pressure 70 mm[Hg] Kirsty RAHMAN Work Phone: [facility] 12-17-2023 11:17-0400 Systolic blood pressure 104 mm[Hg] Kirsty RAHMAN Work Phone: [facility] 12-12-2023 09:34-0400 Body mass index (BMI) [Ratio] 30.41 kg/m2 [facility] 12-12-2023 09:34-0400 Body weight 90.72 kg [facility] Nurse [facility] 12-12-2023 09:34-0400 Diastolic blood pressure 80 mm[Hg] [facility] Nurse [facility] 12-12-2023 09:34-0400 Systolic blood pressure 120 mm[Hg] [facility] Nurse [facility] 03-26-2023 13:45-0500 Body height 164.47 cm Ben Rose Other [facility] Other 03-26-2023 13:45-0500 Body mass index (BMI) [Ratio] 29.6 kg/m2 Ben Rose Other [facility] Other 03-26-2023 13:45-0500 Body weight 80.06 kg Ben Rose Other [facility] Other 03-26-2023 13:45-0500 Diastolic blood pressure 74 mm[Hg] Ben Dirigobertoy Other [facility] Other 03-26-2023 13:45-0500 Systolic blood pressure 120 mm[Hg] Ben Moralesy Other [facility] Other 06-14-2022 17:07-0500 Body weight 79.[address] EDDIE BHATT . [facility] Comment on above: Performed By: #### RPRQ #### [facility] [address] [place] [address] Dr. Jerry Samuel 03-08-2022 11:15-0500 Body height 164.47 cm Ben Rose Other [facility] Other 03-08-2022 11:15-0500 Body mass index (BMI) [Ratio] 29.01 kg/m2 Ben Rose Other [facility] Other 03-08-2022 11:15-0500 Body weight 78.47 kg Ben Moralesaugusto Other [facility] Other 03-08-2022 11:15-0500 Diastolic blood pressure 73 mm[Hg] Ben Moralesaugusto Other [facility] Other 03-08-2022 11:15-0500 Systolic blood pressure 113 mm[Hg] Ben Rose Other [facility] Other Encounters Encounter Date Encounter Type Care Provider Facility Start: 06-28-2024 End: 06-28-2024 ambulatory EDDIE NOVA Not Available Start: 06-21-2024 End: 06-28-2024 Clinisync Result Encounter Kirsty RAHMAN Work Phone: [facility] Unsolicited Start: 06-21-2024 End: 06-28-2024 Clinisync Result Encounter Kirsty RAHMAN Work Phone: [facility] Unsolicited Start: 06-21-2024 End: 06-21-2024 ambulatory KIRSTY SIU Not Available Start: 06-07-2024 End: 06-07-2024 ambulatory EDDIE NOVA [...] encounter procedure Eddie Nova DO Work Phone: [facility] Start: 02-09-2024 End: [...] Bamboo flowsheet Eddie Nova DO Work Phone: [facility] Start: 02-09-2024 End: 02-11-2024 Bamboo flowsheet Eddie Nova DO Work Phone: [facility] Start: 02-09-2024 End: 02-11-2024 External Result Encounter Kirsty Siu PA Work Phone: [facility] External Department Unsolicited Start: 01-08-2024 End: 01-08-2024 Clinisync Result Encounter Eddie Nova DO Work Phone: [facility] Unsolicited Start: 01-08-2024 End: 01-08-2024 Clinisync Result Encounter Eddie Nova DO Work Phone: [facility] External Department Unsolicited Start: 01-07-2024 End: 01-07-2024 flow sheet Eddie Nova DO Work Phone: [facility] Comment on above: First trimester preg baldev; 12 weeks gestation of ; Nausea and vomiting during ; Dizziness; Constipation during in first trimester Start: 01-07-2024 End: 01-07-2024 ambulatory EDDIE NOVA Not Available Start: 01-07-2024 End: 01-07-2024 Bamboo flowsheet Eddie Nova DO Work Phone: [facility] Start: 01-07-2024 End: 01-07-2024 Bamboo flowsheet Eddie Nova DO Work Phone: [facility] Start: 12-22-2023 End: 12-22-2023 Clinisync Result Encounter Eddie Nvoa DO Work Phone: [facility] Unsolicited Start: 12-22-2023 End: 12-22-2023 Clinisync Result Encounter Eddie Noav DO Work Phone: [facility] Unsolicited Start: 12-17-2023 End: 12-17-2023 Bamboo flowsheet Kirsty RAHMAN Work Phone: [facility] Start: 12-17-2023 End: 12-17-2023 Bamboo flowsheet Kirsty RAHMAN Work Phone: [facility] Start: 12-17-2023 End: 12-17-2023 flow sheet Kirsty RAHMAN Work Phone: [facility] Comment on above: First trimester preg bladev Start: 12-17-2023 End: 12-17-2023 ambulatory KIRSTY SIU Not Available Start: 12-12-2023 End: 12-12-2023 ambulatory [facility] Nurse [facility] Comment on above: GA: 8w4d Start: 03-26-2023 End: 03-26-2023 ambulatory Ben Rose Other [facility] Other Start: 03-26-2023 Patient encounter procedure Ben FLORES [facility] Start: 01-24-2023 End: 01-24-2023 ambulatory Ben Rose Other [facility] Other Start: 01-24-2023 Telephone encounter Ben FORD [...] 03-08-2022 End: 03-08-2022 ambulatory Ben Rose Other [facility] Other Start: 03-08-2022 Patient encounter procedure Ben Rose [facility] Start: 03-07-2022 End: 03-08-[address] EDDIE BHATT . Facility:[facility] Start: 03-05-2022 End: 03-06-2022 ambulatory ANGELES MIKAEL Facility:[facility] Start: 02-13-2022 End: 02-14-2022 ambulatory ANGELSE MIKAEL Facility:[facility] Start: 02-12-2022 End: 02-12-2022 ambulatory ANGELES MIKAEL Facility:[facility] Start: 02-12-2022 End: 02-13-2022 ambulatory ANGELES MIKAEL Facility:[facility] Start: 11-12-2021 End: 11-20-2021 ambulatory ANGELES MIKAEL Facility:[facility] Start: 11-06-2021 End: 11-06-2021 ambulatory Angeles A Mikael ACADEMIC SUPPORT ASSISTANT-C Facility:[facility] Start: 11-05-2021 End: 11-06-2021 ambulatory Angeles A Mikael ACADEMIC SUPPORT ASSISTANT-C Facility:[facility] IC Procedures Date Procedure Procedure Detail Performing Clinician Start: 06-21-2024 ALL MISCELLANEOUS TEST Kirsty Siu PA Work Phone: Start: 06-07-2024 Urnls dip stick/tabl et rgnt non-auto w/o micrscp Eddie Nova DO Work Phone: Start: 05-24-2024 Urnls dip [...] micrscp Eddie Bhatt DO Work Phone: Start: 03-05-2023 Cytp cerv/vag auto t hin layer prep mnl screen Eddie Bhatt DO Work Phone: Plan of Treatment Date Care Activity Detail Author Start: 07-05-2024 End: 07-05-2024 Patient encounter procedure 07/05/2024 3:00 PM EDT Routine [facility] [address] [place] [phone] Eddie Bhatt, DO [address] [place], [place] [id number] [facility] Start: 06-21-2024 End: 06-21-2024 Patient encounter procedure 06/21/2024 1:50 PM EDT Routine [facility] [address] [place] [phone] Kirsty Siu PA [address] [place] [address] [facility] Start: 06-07-2024 End: 06-07-2024 Patient encounter procedure 06/07/2024 2:40 PM EST Routine [facility] [address] [place] [phone] Eddie Bhatt, [place] [address] [facility] Start: 05-24-2024 End: 05-24-2024 Patient encounter procedure 05/24/2024 2:40 PM EST Routine [facility] [address] [place] [phone] Eddie Bhatt, DO [address] [place] [address] [facility] Start: 05-24-2024 End: 05-24-2024 Professional / ancillary services management 05/24/2024 2:00 PM EST Ancillary Procedure [facility] [address] [place] [phone] [facility] Start: 05-11-2024 End: 05-11-2025 US for US OB follow up transabdominal approach Imaging Routine size inconsistent with dates Expected: 05/11/2024, Expires: 05/11/2025 [facility] Work Phone: Comment on above: Expected: 05/11/2024 , Expires: 05/11/2025 Start: 05-11-2024 End: 05-11-2024 Patient encounter procedure 05/11/2024 1:00 PM EST Routine [facility] [address] [place] [phone] Eddie Bhatt, DO [address], [place] [id number] [facility] Start: 04-27-2024 End: 04-27-2024 Patient encounter procedure 04/27/2024 11:20 AM EST Routine [facility] [address] [place] [phone] Eddie Bhatt, DO [address] [place] [address] [facility] Start: 04-05-2024 End: 04-05-2025 CBC panel - Blood by Automated count CBC Lab Routine 25 weeks gestation of Second trimester Diabetes mellitus screening Expected: 04/05/2024 (Approximate), Expires: 04/05/2025 [facility] [employer] Work Phone: Comment on above: Expected: 04/05/2024 (Approximate), Expires: 04/05/2025 Start: 04-05-2024 End: 04-05-2025 Measurement of glucose 1 hour after glucose challenge for glucose tolerance test Glucose tolerance, 1 hour Lab Routine 25 weeks gestation of Second trimester Diabetes mellitus screening Expected: 04/05/2024 (Approximate), Expires: 04/05/2025 [facility] Comment on above: Expected: 04/05/2024 (Approximate), Expires: [...] PM EST Routine [facility] [address] [facility] [phone] Eddie Bhatt, [address] [facility] [place] [address] [facility] Start: 03-01-2024 End: 03-01-2024 Professional / ancillary services management 03/01/2024 1:30 PM EST Ancillary Procedure [facility] [address] [facility] [phone] [facility] Start: 02-09-2024 End: 02-09-2024 [...] procedure 12/17/2023 11:00 AM EDT Office Visit [facility] [address] [facility] [address] Kirsty Siu PA [address] [facility] [place] [address] Arrived [facility] Comment on above: Arrived Start: 12-12-2023 End: 12-11-2024 ABO/Rh ABO/Rh Lab Routine Missed menses Expected: 12/12/2023 (Approximate), Expires: 12/11/2024 [facility] Comment on above: Expected: 12/12/2023 (Approximate), Expires: 12/11/2024 Start: 12-12-2023 End: 12-11-2024 Blood type and Indirect antibody screen panel - Blood Type and screen Lab Routine Missed menses Expected: 12/12/2023 (Approximate), Expires: 12/11/2024 [facility] Work Phone: Comment on above: Expected: 12/12/2023 (Approximate), Expires: 12/11/2024 Start: 12-12-2023 End: 12-11-2024 US Pelvis transvaginal US OB transvaginal Imaging Routine Missed menses Expected: 12/12/2023 (Approximate), Expires: 12/11/2024 [facility] Comment on above: Expected: 12/12/2023 (Approximate), Expires: 12/11/2024 Bacteria identified in Urine by Culture Urine culture Microbiology Routine Missed menses Ordered: 12/12/2023 [facility] Comment on above: Ordered: 12/12/2023 CBC W Auto Different ial panel - Blood CBC and differential Lab Routine Nausea and vomiting during Dizziness Ordered: 01/07/2024 [facility] Work Phone: Comment on above: Ordered: 01/07/2024 CBC W Auto Different ial panel - Blood CBC and differential Lab Routine Missed menses Ordered: 12/12/2023 [facility] Comment on above: Ordered: 12/12/2023 CHLAMYDIA TRACHOMATI S (GENITO/STI) CHLAMYDIA TRACHOMATIS (GENITO/STI) Lab Routine Exposure to STD Ordered: 02/09/2024 [facility] Comment on above: Ordered: 02/09/2024 Hemoglobin A1c/Hemoglobin.total in Blood Hemoglobin A1c Lab Routine Missed menses Ordered: 12/12/2023 [facility] Comment on above: Ordered: 12/12/2023 Hepatitis B virus surface Ag [Presence] in Serum or Plasma by Immunoassay Hepatitis B surface antigen Lab Routine Missed menses Ordered: 12/12/2023 [facility] Comment on above: Ordered: 12/12/2023 Hepatitis C virus Ab [Presence] in Serum or Plasma by Immunoassay Hepatitis C antibody Lab Routine Missed menses Ordered: 12/12/2023 [facility] Comment on above: Ordered: 12/12/2023 HIV-1/HIV-2 antigen/antibody combination immunoassay HIV-1 and HIV-2 antibodies Lab Routine Missed menses Ordered: 12/12/2023 [facility] Comment on above: Ordered: 12/12/2023 Neisseria gonorrhoea e DNA [Presence] in Unspecified specimen by ELINOR with probe detection Neisseria gonorrhea DNA probe, direct Lab Routine Exposure to STD Ordered: 02/09/2024 [facility] Comment on above: Ordered: 02/09/2024 Reagin Ab [Presence] in Serum by RPR RPR Lab Routine Missed menses Ordered: 12/12/2023 [facility] Comment on above: Ordered: 12/12/2023 Rubella antibody, IgG Rubella an tibody, IgG Lab Routine Missed menses Ordered: 12/12/2023 [facility] Comment on above: Ordered: 12/12/2023 SURESWAB(R) ADVANCED VAGINITIS PLUS, TMA SURESWAB(R) ADVANCED VAGINITIS PLUS, TMA Pathology and Cytology Routine Exposure to STD Ordered: 02/09/2024 [facility] Work Phone: Comment on above: Ordered: 02/09/2024 Immunizations Immunization Date Immunization Notes Care Provider Michael albright 11-08-2014 human papilloma viru s vaccine, quadrivalent Ben Rose Other [facility] Other Payers Date Payer Category Payer [employer] [id number] [id number] 2022 Unknown BCBS BCBS [id number] 2022-Present [phone] [address] [place] [address] [id number] 2022 Unknown [id number] 2021 Unknown [id number] 1996 Unknown [id number] 2.16.840.1.808109.3.579.2.718 1996 Unknown [id number] 2.16.840.1.783186.3.579.2.718 1996 Unknown [id number] 2.16.840.1.745344.3.579.2.593 1996 Unknown [id number] 2.16840.1.448378.3.579.2.593 1996 Unknown [id number] 2.16.840.1.866513.3.579.2.593 1996 Unknown [id number] 2.16.840.1.046893.3.579.2.593 1996 Unknown [id number] 2.16.840.1.400391.3.579.2.593 1996 Unknown [id number] 2.16.840.1.861488.3.579.2.593 1996 Unknown [id number] 2.16.840.1.838283.3.579.2.593 1996 Unknown [id number] 2.16.840.1.286092.3.579.2.593 1996 Unknown [id number] 2.16.840.1.989182.3.579.2.593 1996 Unknown [id number] 2.16.840.1.269777.3.579.2.593 1996 Unknown [id number] 2.16.840.1.986067.3.579.2.593 1996 Unknown [id number] 2.16.840.1.155208.3.579.2.593 1996 Unknown [id number] 2.16.840.1.426480.3.579.2.593 1996 Unknown [id number] 2.16.840.1.161280.3.579.2.59 1996 Unknown [id number] 2.16.840.1.196659.3.579.2.593 1996 Unknown [id number] 2.16.840.1.358891.3.579.2.1258 1996 Unknown [id number] 2.16840.1.422816.3.579.2.1258 1996 Unknown [id number] 2.16840.1.506514.3.579.2.1258 1996 Unknown [id number] 2.16840.1.177852.3.579.2.1258 1996 Unknown [id number] 2.16840.1.763713.3.579.2.1258 1996 Unknown [id number] 2.16.840.1.516513.3.579.2.1258 1996 Unknown [id number] 2.16.840.1.541082.3.579.2.1258 1996 Unknown [id number] 2.16.840.1.045033.3.579.2.1258 1996 Unknown [id number] 2.16.840.1.651779.3.579.2.1258 1996 Unknown [id number] 2.16.840.1.561768.3.579.2.1258 1996 Unknown [id number] 2.16.840.1.190619.3.579.2.1258 1996 Unknown [id number] 2.16.840.1.175671.3.579.2.1259 1996 Unknown [id number] 2.16.840.1.513717.3.579.2.1259 1959 Self-pay 1959 Unknown [id number] 2.16. 840.1.796363.19 1959 Unknown [id number] 2.16.840.1.432762.19 1959 Unknown [id number] 1959 Unknown [id number] Unknown [id number] 2.16.840.1.829482.3.579.2.593 Social History Date Type Detail Facility Unknown if ever smoked [id number] Other Start: 03-27-2023 End: 12-12-2023 Sex Assigned At [employer] Other Start: 09-17-2022 Tobacco smoking stat [facility] Never smoked tobacco [facility] Start: 09-17-2022 Tobacco use and exposure Smokeless tobacco non-user [facility] Start: 12-17-2023 End: 06-07-2024 Alcoholic beverage intake Lifetime non-drinker (finding) [facility] Start: 03-27-2023 End: 12-12-2023 History of Social function [facility] Start: 10-27-2023 [facility] Start: 1995 Sex assigned at Not on file [facility] Clinical Notes 03-08-2022 to 06-07-2024 Vicky Leyva LPN - 06/07/2024 2:40 PM Rory Leyva LPN - 05/24/2024 2:40 PM JOSIAH Acosta - 05/11/2024 1:00 PM Farhan Foster LPN - 04/27/2024 11:20 AM EST Note Date [...] infection 09/13/2022 Adjustment disorder with depressed mood ([facility]) 09/13/2022 Allergic rhinitis 09/13/2022 Anxiety 09/13/2022 Arthralgia of multiple joints 09/13/2022 Dysmenorrhea 09/13/2022 Family history of thyroid disease 09/13/2022 Hematochezia 09/13/2022 Low back pain 09/13/2022 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 Exam conducted with a hide paster present. 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 Subcutaneous nodule 09/13/2022 Tinea pedis 09/13/2022 25 weeks gestation of 04/05/2024 Second trimester 04/05/2024 Resolved Ambulatory Problems Diagnosis Date Noted No Resolved Ambulatory Problems Past Medical History: Diagnosis Date Depression ([facility]) HISTORY PAST MEDICAL HISTORY SOCIAL HISTORY Past Medical History: Diagnosis Date Anxiety Depression ([facility]) Social History Tobacco Use Smoking status: Never [...] Eddie Bhatt DO documented in this encounter [facility] 05-11-2024 History of Presen t illness [...] of: JOSIAH Schilling documented in this encounter [facility] 04-27-2024 History of Presen t illness [...] nursing note reviewed. Exam conducted with a hide paster present. Vitals: Estimated body mass index is [...] Eddie Bhatt DO documented in this encounter [facility] 04-15-2024 Telephone encount er Note Madhuri, my [...] do not know, but my phone numbers [phone], thank you, bye. I called pt to let her know that I would talk to Dr. Bhatt and see what he recommends. [facility] 04-15-2024 Miscellaneous Notes Formattin g of [...] do not know, but my phone numbers [phone], thank you, bye. I called pt to let her know that I would talk to Dr. Bhatt and see what he recommends. 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 Subcutaneous nodule 09/13/2022 Tinea pedis 09/13/2022 Resolved Ambulatory Problems Diagnosis Date Noted No Resolved Ambulatory Problems Past Medical History: Diagnosis Date Depression (CMS/HCC) HISTORY PAST MEDICAL HISTORY SOCIAL HISTORY Past Medical History: Diagnosis Date Anxiety Depression ([facility]) Social History Tobacco Use Smoking status: Never [...] of: JOSIAH Schilling documented in this encounter [facility] 03-08-2024 History of Presen t illness [...] infection 09/13/2022 Adjustment disorder with depressed mood ([facility]) 09/13/2022 Allergic rhinitis 09/13/2022 Anxiety 09/13/2022 Arthralgia of multiple joints 09/13/2022 Dysmenorrhea 09/13/2022 Family history of thyroid disease 09/13/2022 Hematochezia 09/13/2022 Low back pain 09/13/2022 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 Exam conducted with a hide paster present. 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 Exam conducted with a hide paster present. 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 Exam conducted with a hide paster present. Vitals: Estimated body mass index is [...] or undercooked meat, and stay away from [facility]. Patient has been consulted regarding any further do's and don'ts of . Patient voiced understanding and all questions and concerns were answered. Orders Placed This Encounter Procedures Urine dip Follow Up: Patient is to return in 4 weeks for routine OB appointment. 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 Subcutaneous nodule 09/13/2022 Tinea pedis 09/13/2022 Resolved Ambulatory Problems Diagnosis Date Noted No Resolved Ambulatory Problems Past Medical History: Diagnosis Date Depression ([facility]) HISTORY PAST MEDICAL HISTORY SOCIAL HISTORY Past Medical History: Diagnosis Date Anxiety Depression ([facility]) Social History Tobacco Use Smoking status: Never [...] of: JOSIAH Schilling documented in this encounter [facility] 12-12-2023 History of Presen t illness [...] infection 09/13/2022 Adjustment disorder with depressed mood ([facility]) 09/13/2022 Allergic rhinitis 09/13/2022 Anxiety 09/13/2022 Arthralgia of multiple joints 09/13/2022 Dysmenorrhea 09/13/2022 Family history of thyroid disease 09/13/2022 Hematochezia 09/13/2022 Low back pain 09/13/2022 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 Advised to have both and unity [...] Leah Raman MA documented in this encounter [facility] 03-26-2023 Evaluation note Encounter Date Diagnosis [...] call office if she has no improvement [id number] Other 10-20-2023 Evaluation note* Encounter Date Diagnosis Assessment Notes Treatment Notes Treatment Clinical Notes Jan, Epigastric burning sensation (ICD-10 - R10.13) e994 Other 12-02-2022 Evaluation note* Encounter Date Diagnosis Assessment Notes Treatment Notes Treatment Clinical Notes Mar, Nausea (ICD-10 - R11.0) Mar, Epigastric burning sensation (ICD-10 - R10.13) Mar, Lower abdominal pain (ICD-10 - R10.30) Mar, Bloating (ICD-10 - R14.0) Mar, Functional dyspepsia (ICD-10 - K30) Mar, GERD (gastroesophageal reflux disease) (ICD-10 - K21.9) CONTINUE PANTOPRAZOLE 40 MG DAILY CONTINUE LEVSIN NEEDED RTO 1 YR e994 Other Evaluation note* Diagnosis First trimester state, incidental 12 weeks gestation of Nausea and vomiting during Dizziness Dizziness and giddiness Constipation during in first trimester [facility] Diagnosis Second trimester state, incidental 17 weeks gestation of Well woman exam with routine gynecological exam Routine gynecological examination Exposure to STD MSAFP (maternal serum alpha-fetoprotein) decreased Abnormal findings on screening Screening, , for anatomic survey Encounter for anatomic survey [facility] Diagnosis Second trimester state, incidental 21 weeks gestation of [facility] Diagnosis Missed menses documented in [...] Medical History hx of mono Surgical History [place] teeth x4 e994 Other History general Narrative - Reported* Type Description Date Medical History scoliosis Medical History hx of mono Surgical History [place] teeth x4 Surgical History C section e994 Other Summary Purpose Family History No Family History Records FoundNo Family History Records FoundNo Family History Records FoundNo Family History Records Found Advance Directives No Advanced Directives Records FoundNo Advanced Directives Records FoundNo Advanced Directives Records FoundNo Advanced Directives Records Found Additional Source Comments INFORMATION SOURCE (unrecogn ized section and content) DATE CREATED AUTHOR 02/27/2021 [facility] DATE CREATED AUTHOR AUTHOR'S ORGANIZ ATION 07/24/2022 [facility] DATE CREATED AUTHOR AUTHOR'S ORGANIZ ATION 08/08/2022 [facility] DATE CREATED AUTHOR AUTHOR'S ORGANIZ ATION 06/28/2024 [facility] EPIC REASON FOR VISIT [...] BE BASED ON THE PRIMARY CLINICAL RECORDS. [employer] provides no warranty or guarantee of the accuracy or completeness of information in this document.
[2024-06-29 03:34] LABS: Bilirubin Urine NEGATIVE (NEGATIVE); Blood Urine NEGATIVE (NEGATIVE); Clarity Urine CLEAR (CLEAR); Color Urine LT. YELLOW (YELLOW); Glucose Urine UA NEGATIVE (NEGATIVE); Ketones Urine 40 mg/dL (NEGATIVE); Leukocyte Esterase Urine NEGATIVE (NEGATIVE); Nitrite Urine NEGATIVE (NEGATIVE); Protein Urine NEGATIVE (NEG/TRACE); Specific Gravity Urine 1.015 (1.005-1.025); Urine Microscopic Indicated YES; Urobilinogen Urine 0.2 EU/dL (0.2-1.0)
[2024-06-29 03:40] LABS: Bacteria Urine NONE SEEN #/HPF (NONE SEEN); Cast Seen? NONE SEEN #/LPF (NONE SEEN); Crystals Seen? None Seen #/HPF (None Seen); Mucus Urine NONE SEEN (NONE SEEN); RBC Urine 0-2 #/HPF (0-2); Squamous Epithelial Cell Urine RARE #/LPF (NONE/RARE); Transitional Epi Cells Urine RARE #/LPF (NONE SEEN); Urine Culture Indicated NO; WBC Urine 0-2 #/HPF (NONE SEEN)
[2024-06-29] MEDS: 0.9 % SODIUM CHLORIDE 1,000 ML 1000 ML IV ×2 (04:30→05:35)
[2024-06-29 04:36] LABS: Amphetamine Screen Urine NEGATIVE (NEGATIVE); Barbiturates Screen Urine NEGATIVE (NEGATIVE); Benzodiazepines Screen Urine NEGATIVE (NEGATIVE); Buprenorphine Screen Urine NEGATIVE (NEGATIVE); Cannabinoid Screen Urine NEGATIVE (NEGATIVE); Cocaine Screen Urine NEGATIVE (NEGATIVE); Methadone Screen Urine NEGATIVE (NEGATIVE); Methamphetamines Screen Urine NEGATIVE (NEGATIVE); Opiate Screen Urine NEGATIVE (NEGATIVE); Oxycodone Screen Urine NEGATIVE (NEGATIVE); Phencyclidine Screen Urine NEGATIVE (NEGATIVE); Tricyclic Antidepressant Urine NEGATIVE (NEGATIVE)
[2024-06-29 04:37] LABS: Basophils Percent Auto 0.3 % (0.2-2.0); Eosinophils Percent Auto 0.6 % (0.9-7.0); Hematocrit 31.6 % (36.0-48.0); Hemoglobin 10.2 g/dL (12.0-16.0); Immature Granulocytes Abs Auto 0.02 10^3/uL (0.00-0.03); Immature Granulocytes Pct Auto 0.3 % (0.0-0.5); Lymphocytes Absolute Auto 2.5 10^3/uL (1.2-3.8); Lymphocytes Percent Auto 35.7 % (20.5-60.0); Mean Corpuscular HGB Conc 32.3 g/dL (29.9-35.2); Mean Corpuscular Volume 74.4 fL (81.0-99.0); Monocytes Absolute Auto 0.5 10^3/uL (0.3-0.8); Monocytes Percent Auto 7.7 % (1.7-12.0); Neutrophils Absolute Auto 3.9 10^3/uL (1.4-6.5); Neutrophils Percent Auto 55.4 % (43.0-75.0); Platelet Count 213 10^3/uL (150-450); Red Blood Count 4.25 10^6/uL (4.20-5.40)
[2024-06-29] MEDS: CITRIC ACID/SODIUM CITRATE 30 ML SOLUTION ORACIT SHOHL'S SOLN PO (06:37)
[2024-06-29] MEDS: FAMOTIDINE/PF 20 MG/2 ML VIAL IV (06:38)
[2024-06-29] MEDS: CLINDAMYCIN PHOSPHATE/D5W 900 MG/50 ML PREMIX 100 MG IV ×2 (07:04→12:15)
[2024-06-29] MEDS: METOCLOPRAMIDE HCL 10 MG/2 ML VIAL IVP (07:05)
[2024-06-29] MEDS: LACTATED RINGER'S SOLUTION 1,000 ML 50 ML IV ×2 (07:44→07:55)
--- NOTE | 2024-06-29 07:47 | W.PC.ACHO ---
Registration Status: ADM IN Primary Language: [place] Citizen Preferred Language: [place] Citizen Report given to Terry WAYNE at 0700. Care relinquished. Active Medications Generic Name Dose Route Start Last Admin Trade Name Radha PRN Reason Stop Dose Admin Celecoxib 10 mg 06/30/24 06:15 Citalopram Hydrobromide 20 Mg Tablet PO QD PK Oxytocin/Sodium Chloride 20 units in 1,000 mls @ 125 mls/hr 06/29/24 05:14 Pitocin 20 Unit/1,000 Ml-Ns IV Q8H PRN POST DELIVERY Lactated Ringer's 1,000 mls @ 50 mls/hr 06/29/24 08:00 06/29/24 07:44 Lactated Ringers IV 50 mls/hr .Q20H PK Administration Consults Category Date Time Status Consult to Anesthesiology Routine Cons 06/29/24 Ordered IV Insertion/Site Date of IV Line Insertion [ 06/29/24 Short PIV (<1.75 in) 20g left Hand] Date of IV Line Insertion [ 06/29/24 Short PIV (<1.75 in) 20g left Antecubital] IV Insertion Time [Short PIV ( 04:25 <1.75 in) 20g left Hand] IV Insertion Time [Short PIV ( 04:10 <1.75 in) 20g left Antecubital ] Neurology Patient orientation (short person,place,time,situation list)
--- NOTE | 2024-06-29 07:47 | PC.NURSE ---
0320- Patient arrives to [facility] via ambulatory with . Pt calm, breathing through cxt's. Pt rates pain 4/10. Pt taken to room 250 and given gown and urine cup for sample. Pt states she began to have cxt's at 0000. Pt states she has been having to breath through cxt's. Pt denies vaginal bleeding or leaking of fluid. Pt states she had a cervical exam at office yesterday morning. Pt denies current complications. Pt repeat .Pt reports active movement. Pt placed on FHR/UC monitors. Allergies verified with pt.
--- NOTE | 2024-06-29 08:13 | P.ON_ITS ---
Brief Operative Note Date of procedure: 06/29/24 Pre-op diagnosis general: iup at 37 4/7wks, previous c/s Post-op diagnosis: same as pre-op Procedure: NAME OF PROCEDURE: [ section ] PROCEDURE: Patient was taken back to the Operating Room where she was given a spinal anesthesia with Duramorph without difficulty. She was prepped and draped in the normal sterile fashion. A Pfannenstiel skin incision was then made 2 cm above the symphysis pubis and carried down to underlying rectus fascia using a Bovie. The fascia was incised in the midline and extended laterally using Villagomez scissors. Two Brandon clamps were placed on the superior aspect of the fascia and dissected off the underlying rectus muscles. The same was performed on the inferior aspect as well. The muscles were then in the midline. Peritoneum was identified and entered bluntly. The peritoneum was then extended superiorly and inferiorly with good visualization of the bladder. The bladder blade was inserted. A low transverse incision was made on the patient's uterus and extended laterally digitally. The infant was then delivered atraumatically after the bladder blade was removed in the cephalic position. The cord was clamped and cut. Cord blood was obtained. The infant was handed off to awaiting team. The patient's placenta was spontaneously delivered. The uterus was then exteriorized. The uterus was cleared of all clots and debris. The bladder blade was reinserted. The patient's uterine incision was closed using #0 Vicryl in a running lock fashion. Excellent hemostasis was assured. The uterus was then returned to the patient's abdomen. The patient's abdomen was copiously irrigated using warm saline. Peritoneal gutters were cleared of all clots and debris. Again excellent hemostasis was assured. The patient's peritoneum was c losed using 3-0 Vicryl in a running fashion. The patient's fascia was closed using #0 Vicryl in a running fashion. The patient's skin was closed using 4-0 Vicryl subcuticularly. The patient tolerated the procedure well. Sponge, lap, and needle counts were correct x2. The patient was taken to the Recovery Room in stable condition. Anesthesia: SHAYNA Surgeon: Asif Bhatt [employer] Laborer: Asif Bhatt Estimated blood loss (mL): 575 Pathology: none sent Condition: stable Disposition: PACU Urinary Catheter Management Urinary Catheter Management Urethral: Cath placed during this visit: no
--- NOTE | 2024-06-29 08:14 | P.OBPRC_ITS ---
Procedure Pre-op/Post-op diagnoses: Pre-Op/Post-Op Diagnoses Operation Date: 06/29/24 07:30 <No data on this case meets the specified criteria> Procedure: Procedures Operation Date: 06/29/24 07:30 Actual Procedure Side Surgeon p Repeat , viable baby girl born Not Applicable Asif Bhatt DO [employer] Tester: Kim Alvarado Estimated blood loss (mL): 575 Disposition: PACU Anesthesia type: Spinal
[2024-06-29] MEDS: OXYTOCIN/0.9 % SODIUM CHLORIDE 20 UNITS/1,000 ML PLAST..BAG 125 UNIT IV (09:36)
[2024-06-29] MEDS: KETOROLAC TROMETHAMINE 30 MG/ML VIAL IVP ×2 (12:57→19:19)
[2024-06-29] MEDS: SIMETHICONE 80 MG TAB.CHEW PO ×2 (14:57→22:04)
[2024-06-29 16:09] LABS: Basophils Percent Auto 0.1 % (0.2-2.0); Eosinophils Percent Auto 0.1 % (0.9-7.0); Hematocrit 27.4 % (36.0-48.0); Hemoglobin 8.5 g/dL (12.0-16.0); Immature Granulocytes Abs Auto 0.03 10^3/uL (0.00-0.03); Immature Granulocytes Pct Auto 0.3 % (0.0-0.5); Lymphocytes Absolute Auto 0.8 10^3/uL (1.2-3.8); Lymphocytes Percent Auto 9.5 % (20.5-60.0); Mean Corpuscular Hemoglobin 23.3 pg (26.7-34.0); Mean Corpuscular Volume 75.1 fL (81.0-99.0); Mean Platelet Volume 10.9 fL (9.5-13.5); Monocytes Absolute Auto 0.3 10^3/uL (0.3-0.8); Monocytes Percent Auto 2.8 % (1.7-12.0); Neutrophils Absolute Auto 7.7 10^3/uL (1.4-6.5); Neutrophils Percent Auto 87.2 % (43.0-75.0); Platelet Count 169 10^3/uL (150-450); Red Blood Count 3.65 10^6/uL (4.20-5.40); Red Cell Distribution Width 13.8 % (11.0-15.0); White Blood Count 8.8 10^3/uL (4.0-11.0)
[2024-06-29] MEDS: ENOXAPARIN SODIUM 40 MG/0.4 ML SYRINGE SUBQ (20:50)
[2024-06-29] MEDS: OXYCODONE HCL/ACETAMINOPHEN 5MG/325MG 1 TAB PO (22:04)
[2024-06-30] VITALS (17 sets, daily range): BP systolic 111–135; BP diastolic 63–82; PULSE 50–86; TEMP 36.6–36.9
[2024-06-30] MEDS: KETOROLAC TROMETHAMINE 30 MG/ML VIAL IVP ×2 (02:01→13:08)
[2024-06-30] MEDS: OXYCODONE HCL/ACETAMINOPHEN 5MG/325MG 1 TAB PO ×3 (02:08→22:49)
[2024-06-30 06:46] LABS: Basophils Percent Auto 0.1 % (0.2-2.0); Hemoglobin 7.2 g/dL (12.0-16.0); Immature Granulocytes Abs Auto 0.04 10^3/uL (0.00-0.03); Immature Granulocytes Pct Auto 0.4 % (0.0-0.5); Lymphocytes Absolute Auto 2.4 10^3/uL (1.2-3.8); Lymphocytes Percent Auto 24.1 % (20.5-60.0); Mean Corpuscular HGB Conc 30.9 g/dL (29.9-35.2); Mean Corpuscular Hemoglobin 23.2 pg (26.7-34.0); Mean Corpuscular Volume 75.2 fL (81.0-99.0); Mean Platelet Volume 10.3 fL (9.5-13.5); Monocytes Absolute Auto 0.9 10^3/uL (0.3-0.8); Monocytes Percent Auto 9.4 % (1.7-12.0); Neutrophils Absolute Auto 6.6 10^3/uL (1.4-6.5); Platelet Count 169 10^3/uL (150-450); Red Cell Distribution Width 14.2 % (11.0-15.0); White Blood Count 10.1 10^3/uL (4.0-11.0)
[2024-06-30 06:57] LABS: Hematocrit 23.3 % (36.0-48.0)
[2024-06-30] MEDS: CITALOPRAM HYDROBROMIDE 20 MG TABLET 10 MG PO (08:24)
[2024-06-30] MEDS: SIMETHICONE 80 MG TAB.CHEW PO (08:25)
[2024-06-30] MEDS: DOCUSATE SODIUM 100 MG CAPSULE PO ×2 (08:25→21:00)
[2024-06-30] MEDS: 0.9 % SODIUM CHLORIDE 250 ML 10 ML IV (08:38)
--- NOTE | 2024-06-30 10:39 | PM.OBPN ---
OB - PN: Subj Subjective Patient comments: no complaints and pain well controlled [place] status: doing well Exam Constitutional Vital Signs, click to edit/add: Last Vital Signs Temp 97.9 F 06/30/24 10:30 Pulse 79 06/30/24 10:30 Resp 15 06/30/24 10:30 BP 112/77 06/30/24 10:30 Pulse Ox 94 L 06/29/24 10:45 O2 Del Method Room Air 06/30/24 08:00 Documenting provider has reviewed patient's vital signs: yes Common normals: no apparent distress Respiratory Common normals: normal respiratory effort and clear to auscultation bilaterally Cardio Common normals: regular rate and regular rhythm GI Common normals: Normal to inspection, nondistended, normoactive bowel sounds present Extremity Common normals: no calf tenderness Results Labs Labs: Short CBC 06/29/24 06/30/24 Range/Units 16:04 06:36 WBC 8.8 10.1 (4.0-11.0) 10^3/uL Hgb 8.5 L 7.2 L (12.0-16.0) g/dL Hct 27.4 L 23.3 L* (36.0-48.0) % Plt Count 169 169 (150-450) 10^3/uL Urinary Catheter Management Urinary Catheter Management Urethral: Cath placed during this visit: yes Urethral indwelling: No Insertion date: 06/29/24 Insertion time: 07:25 OB - PN: A/P Assessment and Plan (1) Acute blood loss as cause of postoperative anemia: Assessment and Plan: transfuse 2units, repeat cbc in am Plan - day: 1 Plan: routine postop care Time Spent with Patient Time: Total time spent is greater than 50% in coordination of care (as documented) at patient's floor/unit and/or counseling patient: Total time spent with greater than 50% in coordination of care (as documented) at patient's floor/unit and/or counseling patient: less than 15 minutes
[2024-06-30 15:24] LABS: Basophils Percent Auto 0.2 % (0.2-2.0); Eosinophils Percent Auto 0.3 % (0.9-7.0); Hematocrit 29.8 % (36.0-48.0); Hemoglobin 9.7 g/dL (12.0-16.0); Immature Granulocytes Abs Auto 0.05 10^3/uL (0.00-0.03); Immature Granulocytes Pct Auto 0.5 % (0.0-0.5); Lymphocytes Absolute Auto 3.1 10^3/uL (1.2-3.8); Lymphocytes Percent Auto 28.5 % (20.5-60.0); Mean Corpuscular HGB Conc 32.6 g/dL (29.9-35.2); Mean Corpuscular Hemoglobin 24.9 pg (26.7-34.0); Mean Corpuscular Volume 76.6 fL (81.0-99.0); Mean Platelet Volume 10.3 fL (9.5-13.5); Monocytes Absolute Auto 0.9 10^3/uL (0.3-0.8); Monocytes Percent Auto 8.4 % (1.7-12.0); Neutrophils Absolute Auto 6.7 10^3/uL (1.4-6.5); Neutrophils Percent Auto 62.1 % (43.0-75.0); Platelet Count 187 10^3/uL (150-450); Red Blood Count 3.89 10^6/uL (4.20-5.40); White Blood Count 10.8 10^3/uL (4.0-11.0)
[2024-06-30] MEDS: BUTALB/ACETAMINOPHEN/CAFFEINE 50-325-40MG TABLET 2 TAB PO (17:07)
[2024-06-30] MEDS: ONDANSETRON 4 MG RAPDIS TABLET PO (17:55)
[2024-06-30] MEDS: ENOXAPARIN SODIUM 40 MG/0.4 ML SYRINGE SUBQ (21:00)
[2024-07-01] VITALS (7 sets, daily range): BP systolic 108–134; BP diastolic 60–78; PULSE 56–81; TEMP 36.6–37.2
[2024-07-01] MEDS: OXYCODONE HCL/ACETAMINOPHEN 5MG/325MG 2 TAB PO (02:29)
[2024-07-01 06:24] LABS: Basophils Percent Auto 0.4 % (0.2-2.0); Eosinophils Absolute Auto 0.1 10^3/uL (0.0-0.7); Eosinophils Percent Auto 0.7 % (0.9-7.0); Hematocrit 28.8 % (36.0-48.0); Immature Granulocytes Abs Auto 0.04 10^3/uL (0.00-0.03); Immature Granulocytes Pct Auto 0.4 % (0.0-0.5); Lymphocytes Absolute Auto 3.8 10^3/uL (1.2-3.8); Lymphocytes Percent Auto 38.7 % (20.5-60.0); Mean Corpuscular HGB Conc 31.3 g/dL (29.9-35.2); Mean Corpuscular Hemoglobin 24.1 pg (26.7-34.0); Mean Corpuscular Volume 77.2 fL (81.0-99.0); Mean Platelet Volume 10.4 fL (9.5-13.5); Monocytes Absolute Auto 0.7 10^3/uL (0.3-0.8); Monocytes Percent Auto 7.2 % (1.7-12.0); Neutrophils Absolute Auto 5.1 10^3/uL (1.4-6.5); Neutrophils Percent Auto 52.6 % (43.0-75.0); Platelet Count 169 10^3/uL (150-450); Red Blood Count 3.73 10^6/uL (4.20-5.40); White Blood Count 9.7 10^3/uL (4.0-11.0)
--- NOTE | 2024-07-01 08:24 | P.OBPN_ITS ---
OB - PN: Subj Subjective Patient comments: no complaints and pain well controlled [place] status: doing well Exam Constitutional Vital Signs, click to edit/add: Last Vital Signs Temp 98.3 F 07/01/24 01:01 Pulse 56 L 07/01/24 01:01 Resp 15 06/30/24 13:32 BP 134/75 07/01/24 01:01 Pulse Ox 94 L 06/29/24 10:45 O2 Del Method Room Air 07/01/24 01:05 Documenting provider has reviewed patient's vital signs: yes Common normals: no apparent distress Respiratory Common normals: normal respiratory effort and clear to auscultation bilaterally Cardio Common normals: regular rate and regular rhythm GI Common normals: Normal to inspection, nondistended, normoactive bowel sounds present Extremity Common normals: no calf tenderness Results Labs Labs: Short CBC 06/30/24 07/01/24 Range/Units 15:19 06:16 WBC 10.8 9.7 (4.0-11.0) 10^3/uL Hgb 9.7 L 9.0 L (12.0-16.0) g/dL Hct 29.8 L 28.8 L (36.0-48.0) % Plt Count 187 169 (150-450) 10^3/uL Urinary Catheter Management Urinary Catheter Management Urethral: Cath placed during this visit: yes Urethral indwelling: No Insertion date: 06/29/24 Insertion time: 07:25 OB - PN: A/P Assessment and Plan (1) Acute blood loss as cause of postoperative anemia: Plan - day: 2 Plan: routine postop care, discharge home and other Comment: fu 1wk Time Spent with Patient Time: Total time spent is greater than 50% in coordination of care (as documented) at patient's floor/unit and/or counseling patient: Total time spent with greater than 50% in coordination of care (as documented) at patient's floor/unit and/or counseling patient: less than 15 minutes
[2024-07-01] MEDS: CITALOPRAM HYDROBROMIDE 20 MG TABLET 10 MG PO (09:02)
[2024-07-01] MEDS: DOCUSATE SODIUM 100 MG CAPSULE PO ×2 (09:03→20:47)
[2024-07-01] MEDS: OXYCODONE HCL/ACETAMINOPHEN 5MG/325MG 1 TAB PO ×4 (09:36→23:44)
[2024-07-01] MEDS: ONDANSETRON 4 MG RAPDIS TABLET PO (11:11)
--- NOTE | 2024-07-01 12:58 | W.PC.ACHO ---
Registration Status: ADM IN Primary Language: Iranian Preferred Language: Iranian Report received from Priti WAYNE at 0796. Active Medications Generic Name Dose Route Start Last Admin Trade Name Freq PRN Reason Stop Dose Admin Al Hydroxide/Mg Hydroxide 2,400 mg 06/29/24 08:15 Magnesium Hydroxide 2,400 Mg/10 Ml Oral.Susp PO Q6H PRN Dyspepsia Celecoxib 10 mg 06/30/24 06:15 07/01/24 09:02 Citalopram Hydrobromide 20 Mg Tablet PO 10 mg QD PK Administration Docusate Sodium 100 mg 06/30/24 09:00 07/01/24 09:03 Docusate Sodium 100 Mg Capsule PO 100 mg BID PK Administration Enoxaparin Sodium 40 mg 06/29/24 20:00 06/30/24 21:00 Enoxaparin Sodium 40 Mg/0.4 Ml Syringe SUBQ 40 mg Q24H PK Administration Promethazine HCl 25 mg/ Sodium 51 mls @ 204 mls/hr 06/29/24 08:15 Chloride IV Q6H PRN Nausea And Vomiting Sodium Chloride 1,000 mls @ 125 mls/hr 06/29/24 08:15 Sodium Chloride 0.9% 1,000 Ml IV .Q8H PRN IF NOT TOLERATING PO FLUIDS OR Sodium Chloride 250 mls @ 10 mls/hr 06/30/24 07:40 06/30/24 16:12 Sodium Chloride 0.9% 250 Ml IV Infused .Q24H PRN Infusion LINE CLEARANCE Ibuprofen 800 mg 06/29/24 08:15 Ibuprofen 400 Mg Tablet PO Q8H PRN Pain Ondansetron HCl 4 mg 06/29/24 08:15 Ondansetron Pf 4 Mg/2 Ml Vial IV Q6H PRN Nausea And Vomiting Ondansetron HCl 4 mg 06/29/24 08:15 07/01/24 11:11 Ondansetron 4 Mg Rapdis Tablet PO 4 mg Q6H PRN Administration Nausea And Vomiting Oxycodone/Acetaminophen 1 tab 06/30/24 19:27 07/01/24 09:36 Oxycodone Hcl/Acetaminophen 5mg/325mg PO 1 tab Q4H PRN Administration Pain Scale 4-6 Oxycodone/Acetaminophen 2 tab 06/30/24 19:27 07/01/24 02:29 Oxycodone Hcl/Acetaminophen 5mg/325mg PO 2 tab Q4H PRN Administration Pain Scale 7-10 Senna 17.2 mg 06/29/24 20:00 Sennosides 8.6 Mg Tablet PO QHS PRN Constipation Simethicone 80 mg 06/29/24 08:15 06/30/24 08:25 Simethicone 80 Mg Tab.Chew PO 80 mg QID PRN Administration Abdominal Distention Respiratory Oxygen Delivery Method Room Air Oxygen Delivery Method Room Air Bowels Bowel Pattern No Bowel Movement Renal Bladder Pattern Continent Bladder Pattern Continent Catheter Urinary Catheter Date of 06/29/24 Insertion [Urethral] Urinary Catheter Time of :25 Insertion [Urethral]
--- NOTE | 2024-07-01 13:57 | PC.NURSE ---
RN offers medications at this time. Pt denies.
--- NOTE | 2024-07-01 19:31 | W.PC.ACHO ---
Registration Status: ADM IN Primary Language: Burkinan Preferred Language: Burkinan Report given to Leslie WAYNE. Care relinquished. Active Medications Generic Name Dose Route Start Last Admin Trade Name Freq PRN Reason Stop Dose Admin Al Hydroxide/Mg Hydroxide 2,400 mg 06/29/24 08:15 Magnesium Hydroxide 2,400 Mg/10 Ml Oral.Susp PO Q6H PRN Dyspepsia Celecoxib 10 mg 06/30/24 06:15 07/01/24 09:02 Citalopram Hydrobromide 20 Mg Tablet PO 10 mg QD PK Administration Docusate Sodium 100 mg 06/30/24 09:00 07/01/24 09:03 Docusate Sodium 100 Mg Capsule PO 100 mg BID PK Administration Enoxaparin Sodium 40 mg 06/29/24 20:00 06/30/24 21:00 Enoxaparin Sodium 40 Mg/0.4 Ml Syringe SUBQ 40 mg Q24H PK Administration Promethazine HCl 25 mg/ Sodium 51 mls @ 204 mls/hr 06/29/24 08:15 Chloride IV Q6H PRN Nausea And Vomiting Sodium Chloride 1,000 mls @ 125 mls/hr 06/29/24 08:15 Sodium Chloride 0.9% 1,000 Ml IV .Q8H PRN IF NOT TOLERATING PO FLUIDS OR Sodium Chloride 250 mls @ 10 mls/hr 06/30/24 07:40 06/30/24 16:12 Sodium Chloride 0.9% 250 Ml IV Infused .Q24H PRN Infusion LINE CLEARANCE Ibuprofen 800 mg 06/29/24 08:15 Ibuprofen 400 Mg Tablet PO Q8H PRN Pain Ondansetron HCl 4 mg 06/29/24 08:15 Ondansetron Pf 4 Mg/2 Ml Vial IV Q6H PRN Nausea And Vomiting Ondansetron HCl 4 mg 06/29/24 08:15 07/01/24 11:11 Ondansetron 4 Mg Rapdis Tablet PO 4 mg Q6H PRN Administration Nausea And Vomiting Oxycodone/Acetaminophen 1 tab 06/30/24 19:27 07/01/24 19:27 Oxycodone Hcl/Acetaminophen 5mg/325mg PO 1 tab Q4H PRN Administration Pain Scale 4-6 Oxycodone/Acetaminophen 2 tab 06/30/24 19:27 07/01/24 02:29 Oxycodone Hcl/Acetaminophen 5mg/325mg PO 2 tab Q4H PRN Administration Pain Scale 7-10 Senna 17.2 mg 06/29/24 20:00 Sennosides 8.6 Mg Tablet PO QHS PRN Constipation Simethicone 80 mg 06/29/24 08:15 06/30/24 08:25 Simethicone 80 Mg Tab.Chew PO 80 mg QID PRN Administration Abdominal Distention Respiratory Oxygen Delivery Method Room Air Oxygen Delivery Method Room Air Oxygen Delivery Method Room Air Bowels Bowel Pattern No Bowel Movement Renal Bladder Pattern Continent Bladder Pattern Continent Bladder Pattern Continent Catheter Urinary Catheter Date of 06/29/24 Insertion [Urethral] Urinary Catheter Time of 07:25 Insertion [Urethral]
[2024-07-01] MEDS: ENOXAPARIN SODIUM 40 MG/0.4 ML SYRINGE SUBQ (20:47)
[2024-07-02] MEDS: OXYCODONE HCL/ACETAMINOPHEN 5MG/325MG 1 TAB PO ×3 (04:05→16:57)
--- NOTE | 2024-07-02 07:58 | P.OBPN_ITS ---
OB - PN: Subj Subjective Patient comments: no complaints and pain well controlled [place] status: doing well Exam Constitutional Vital Signs, click to edit/add: Last Vital Signs Temp 98.9 F 07/01/24 23:52 Pulse 58 L 07/01/24 20:52 Resp 16 07/01/24 23:53 BP 123/78 07/01/24 20:52 Pulse Ox 94 L 06/29/24 10:45 O2 Del Method Room Air 07/01/24 23:53 Documenting provider has reviewed patient's vital signs: yes Common normals: no apparent distress Respiratory Common normals: normal respiratory effort and clear to auscultation bilaterally Cardio Common normals: regular rate and regular rhythm GI Common normals: Normal to inspection, nondistended, normoactive bowel sounds present Urinary Catheter Management Urinary Catheter Management Urethral: Cath placed during this visit: yes Urethral indwelling: No Insertion date: 06/29/24 Insertion time: 07:25 OB - PN: A/P Assessment and Plan (1) Acute blood loss as cause of postoperative anemia: Plan - day: 3 Plan: routine postop care, discharge home and other Comment: fu 1wk Time Spent with Patient Time: Total time spent is greater than 50% in coordination of care (as documented) at patient's floor/unit and/or counseling patient: Total time spent with greater than 50% in coordination of care (as documented) at patient's floor/unit and/or counseling patient: less than 15 minutes
[2024-07-02] MEDS: CITALOPRAM HYDROBROMIDE 20 MG TABLET 10 MG PO (09:18)
[2024-07-02] MEDS: DOCUSATE SODIUM 100 MG CAPSULE PO (09:19)
[2024-07-02 09:23] VITALS: BP 113/70; PULSE 70
[2024-07-02 13:49] VITALS: BP 121/77; PULSE 85
--- NOTE | 2024-07-02 14:36 | PC.NURSE ---
1340: Blood patch procedure initiated per [facility]. 1345: 20 ml blood withdrawn form saline lock in left antecubital per Brian Collins RN and handed to [facility]. Saline lock removed at conclusion of procedure and site secured with bandaid. Patient lies supine with pillow support.Instructed per [facility] to lie supine for 2 hours. Vital signs recorded.
== END 2024-07-02 18:45 | disposition home or self-care (01) | DRG 787 ==
PROVIDERS: Admitting Provider Obstetrics & Gynecology; PCP Nurse Practitioner Family; Visit Provider Obstetrics & Gynecology
PROC: 10D00Z1 Extraction of Products of Conception, Low, Open Approach (ICD-10-PCS; CPT 59514; principal; 2024-06-29 07:30)
DX: O75.82 Onset (spontaneous) of labor after 37 completed weeks of gestation but before 39 completed weeks gestation, with delivery by (planned) cesarean section (principal); D62 Acute posthemorrhagic anemia; O34.211 Maternal care for low transverse scar from previous cesarean delivery; O99.824 Streptococcus B carrier state complicating childbirth; O90.81 Anemia of the puerperium; O74.5 Spinal and epidural anesthesia-induced headache during labor and delivery; Z3A.37 37 weeks gestation of pregnancy; Z37.0 Single live birth
CPT/HCPCS: 36415; 36430; 59025; 59050; 62273; 64488; 80307; 81001; 85025; 86850; 86900; 86901; 86923; 94667; 94668; J0131; J0665; J0736; J1100; J1650; J1885; J2274; J2371; J2405; J2590; J2704; J2765; J3490; P9016; Q0162

== ENCOUNTER 2024-07-07 08:26 | Outpatient (OUT) | payer BC, SELFPAY ==
--- OUTSIDE RECORDS SUMMARY | 2024-07-06 07:54 | XMS_ITS | CCD ---
Author Organization [facility] Care Team Providers Care Therapist Speech Name Role Phone Ben Rose Unavailable Mikael EXHIBITION SPECIALIST-C, Angeles A Admitting Unavailable Mikael EXHIBITION SPECIALIST-C, Angeles A Attending Unavailable Mikael EXHIBITION SPECIALIST-C, Angeles A Primary Care Unavailable Mikael EXHIBITION SPECIALIST-C, Angeles A Attending Unavailable Mikael EXHIBITION SPECIALIST-C, Angeles A Primary Care Unavailable NOVA ., [...] Referring Unavailable NOVA, EDDIE Attending Unavailable NOVA, DEDIE Attending Unavailable SHERRON, KIRSTY Attending Unavailable NOVA, EDDIE Attending Unavailable SHERRON, KIRSTY Attending Unavailable NOVA, EDDIE Attending Unavailable NOVA, EDDIE Attending Unavailable NOVA, EDDIE Attending Unavailable SHERRON, KIRSTY Attending Unavailable Allergies Allergy Classification Reported Allergen(s) Allergy Type Date of Onset Reaction(s) Facility (3 sources) Penicillin G Drug Allergy Unknown [employer] Other (1 source) busPIRone; Translations: [buspirone hcl] Drug Allergy [facility] Repository (1 source) Coconut extract; Translations: [coconut] Drug Allergy [facility] Repository (20 sources) Penicillins; Translations: [penicillins] Propensity to adverse reactions to drug (disorder) 3 Rash [facility] Repository (1 source) Amoxicillin Drug Allergy [facility] Repository (1 source) Penicillin Drug Allergy [facility] Repository (20 sources) busPIRone Drug Allergy 3 [facility] Work Phone: (20 sources) Minocycline Drug Allergy 3 Hives [facility] Medications Current Medications Medication Drug Class(es) Dates Sig (Normalized) Sig (Original) azithromycin 250 mg oral tablet (20 sources) Macrolide Antimicrobial Start: 03-27-2023 End: 05-11-2024 azithromycin (Zithromax Z-Fredrick) 250 MG tablet Indications: COVID-19 Take as directed 6 tablet 03/27/2023 05/11/2024 Discontinued Cetirizine (2 sources) Histamine-1 Receptor Antagonist ZyrTEC Allergy Active citalopram 20 mg oral tablet (20 sources) Serotonin Reuptake Inhibitor Start: 05-24-2024 End: 05-24-2025 take 1 tablet by mouth at bedtime citalopram (CeleXA) 10 MG tablet Indications: Anxiety Take 1 tablet (10 mg) by mouth at bedtime 30 tablet 11 05/24/2024 07/05/2024 Discontinued Start: 12-15-2023 End: 07-05-2025 take 1 tablet by mouth once daily citalopram (CeleXA) 20 MG tablet Indications: Anxiety Take 1 tablet (20 mg) by mouth Daily 30 tablet 11 07/05/2024 07/05/2025 Active Start: 06-11-2023 take 1 tablet by gia th once daily in the morning citalopram (CeleXA) 20 MG tablet Indications: Anxiety, generalized (CMS/HCC) TAKE ONE TABLET BY MOUTH ONCE DAILY IN THE MORNING 30 tablet 5 06/11/2023 Active hyoscyamine sulfate 0.125 mg sublingual tablet [...] COVID-19 As directed 21 tablet 03/27/2023 Active nitrofurantoin, macrocrystals 25 mg / nitrofurantoin, monohydrate [...] 7 days. 14 capsule 12/12/2023 12/19/2023 Active pantoprazole 40 mg delayed release oral tablet (20 sources) Proton Pump Inhibitor Start: 02-28-2021 take 1 tablet by mouth every twenty-fou r hours Pantoprazole Sodium 40 MG 1 tablet [...] Drug Class(es) Dates Sig (Normalized) Sig (Original) 12 hr buPROPion hydrochloride 150 mg extended release oral tablet (20 sources) Aminoketone Start: 03-15-2024 End: 07-05-2024 take 1 tablet by mouth every twelve hours in the morning buPROPion SR (Wellbutrin SR) 150 MG 12 hr tablet Indications: Anxiety Take 1 tablet (150 mg) by mouth in the morning and 1 tablet (150 mg) before bedtime. Do not crush, chew, or split.. 180 tablet 1 03/15/2024 07/05/2024 Discontinued Start: 02-18-2024 End: 02-17-2025 take 1 tablet by mouth once daily buPROPion XL (Wellbutrin XL) 150 MG 24 hr tablet Indications: Anxiety, generalized (CMS/HCC) Take 1 tablet (150 mg) by mouth Daily Do not crush, chew, or split. 30 tablet 11 02/18/2024 02/17/2025 Active docusate sodium 100 mg oral capsule (20 sources) Start: 01-07-2024 End: 01-06-2025 take 1 capsule by mouth twice daily as needed for constipation docusate sodium (Colace) 100 MG capsule Indications: Constipation during in first trimester Take 1 capsule (100 mg) by mouth 2 (two) times a day as needed for constipation 60 capsule 5 01/07/2024 06/07/2024 Discontinued esomeprazole 40 mg delayed release oral capsule (6 sources) Proton Pump Inhibitor Start: 04-15-2024 End: 07-05-2024 esomeprazole (NexIUM) [address] capsule TAKE ONE CAPSULE BY MOUTH DAILY 30 MINUTES BEFORE MORNING MEAL 04/15/2024 07/05/2024 Discontinued Start: 10-29-2023 take 1 capsule by [facility] once daily esomeprazole (NexIUM) [address] capsule TAKE ONE CAPSULE BY MOUTH ONCE DAILY FOR 30 DAYS 10/29/2023 Active hydrOXYzine hydrochloride 10 mg oral tablet (6 sources) Antihistamine Start: 06-07-2024 End: 07-05-2024 take 1 tablet by mouth every six hours as needed for anxiety and anxiety hydrOXYzine HCl (Atarax) 10 MG tablet Indications: Anxiety Take 1 tablet (10 mg) by mouth every 6 (six) hours if needed for itching for up to 30 doses 30 tablet 06/07/2024 07/05/2024 Discontinued metoclopramide 10 mg oral tablet (20 sources) [...] needed for nausea.. 90 tablet 2 05/05/2024 07/05/2024 Discontinued Start: 12-11-2023 End: 04-27-2024 metoclopramide (Reglan) 10 [...] 90 tablet 3 12/11/2023 04/27/2024 Discontinued (Other) Misc. Devices (Medela Double Breast Pump) misc [...] 30 capsule 11 02/02/2024 04/27/2024 Discontinued (Other) ondansetron 4 mg disintegrating oral tablet (20 sources) Serotonin-3 Receptor Antagonist Start: 04-19-2024 End: 07-05-2024 take 1 tablet by mouth every eight hours as needed for nausea ondansetron ODT (Zofran-ODT) 4 MG disintegrating tablet Take 4 mg by mouth every 8 (eight) hours if needed for nausea 04/19/2024 07/05/2024 Discontinued Start: 01-26-2024 End: 02-25-2024 take 1 tablet [...] vomiting 30 tablet 3 11/17/2023 12/17/2023 Active Problems Active Problems Problem Classification Problem [...] disorders (1 source) Constipation, unspecified Episodic Other screening for suspected conditions (not [...] of ] 03-08-2024 Episodic Residual codes; unclassified (2 sources) Gestation [...] unspecified joint] Onset: 09-13-2022 09-13-2022 Episodic Other and delivery including normal (20 sources) Encounter for supervision of normal , unspecified, unspecified trimester; Translations: [Encounter for supervision of normal first , first trimester] Onset: 04-11-2022 Episodic Other skin disorders (20 sources) Acne; [...] and metabolic diseases] Onset: 09-13-2022 09-13-2022 Episodic Residual codes; unclassified (19 sources) Gestation period, 25 weeks; Translations: [25 weeks gestation of ] Onset: 04-05-2024 04-05-2024 Episodic Spondylosis; intervertebral disc disorders; other back problems (20 sources) Low back pain; Translations: [Low back pain] Onset: 09-13-2022 09-13-2022 Episodic Results Test Name Value Interpretation Reference Range Facility Urinalysis macro (dipstick) panel (U)on 07-05-2024 Bilirubin, UA Negative Negative - 4(70) +++ mg/dL [facility] Blood, UA Positive Negative - 50 Daniel/mcL [facility] Clarity, UA Clear [facility] Color, UA Yellow [facility] Glucose, UA Negative Negative - 2000(110) ++++ mg/dL [facility] Interpretation and review of laboratory results Abnormal [facility] Ketones, UA Negative Negative - 160(16) ++++ mg/dL [facility] Leukocytes, UA Negative Negative - 500+++ Gavin/mcL [facility] Nitrite, UA Negative Negative - Positive [facility] pH, UA 7 5 - 9 [facility] Protein, UA Negative Negative - 2000(20) ++++ mg/dL [facility] Spec Grav, UA 1.015 1 - 1.03 [facility] Urobilinogen, UA 0.2 0.2 - 12 mg/dL [facility]H UA (CLEAN/CATCH) ANALYTICAL DATA MINER/AMBERLY RO IF IND.on 06-29-2024 BILIRUBIN URINE Negative NEGATIVE [facility] BLOOD URINE Negative NEGATIVE [facility] Clarity (U) CLEAR CLEAR [facility] Color (U) LT. YELLOW YELLOW [facility] GLUCOSE URINE UA Negative NEGATIVE mg/dL [facility] Interpretation and review of laboratory results Abnormal [facility] Ketones Ql (U) 40 mg/dL Abnormal NEGATIVE [facility] Leukocyte esterase Test strip Ql (U) Negative NEGATIVE [facility] NITRITE URINE Negative NEGATIVE [facility] pH (U) 6.0 [pH] 5.0 - 9.0 [facility] PROTEIN URINE Negative NEG/TRACE mg/dL [facility] SPECIFIC GRAVITY URINE 1.015 1.005 - 1.025 [facility] URINE MICROSCOPIC INDICATED YES [facility] UROBILINOGEN URINE 0.2 EU/dL 0.2 - 1.0 EU/dL [facility] ALL MISCELLANEOUS TESTon MISCELLANEOUS TEST COMMENT . [facility] Comment on above: Test Ordered: [id number] Strep Gp B Culture+Rflx Strep Gp B Culture+Rflx Positive [A ] CB Reference Range: Negative Centers for Disease Control and Prevention (CDC) and [place] [employer]stetricians and Gynecologists (ACOG) guidelines [...] to clindamycin is noted. Organism Identification Comment CB Reference Range: . Beta hemolytic Streptococcus, group [...] at high risk for anaphylaxis. Performed at: [facility] [address] [id number] [employer] Machine Operator: Jose Alejandro Matthews PhD, Phone: [phone] GROUP B STREP [id number] CULTURE, GROUP B STREP WITH [facility]USCEPTIBILITY [facility] macro (dipstick) panel (U)on 06-07-2024 Bilirubin, UA Negative Negative - 4(70) +++ mg/dL [facility] Blood, UA Negative Negative - 50 Daniel/mcL [facility] Clarity, UA Clear [facility] Color, UA Colorless [facility] Glucose, UA Positive Negative - 2000(110) ++++ mg/dL [facility] Comment on above: 100 Interpretation and review of laboratory results Abnormal [facility] Ketones, UA Negative Negative - 160(16) ++++ mg/dL [facility] Leukocytes, UA Negative Negative - 500+++ Gavin/mcL [facility] Nitrite, UA Negative Negative - Positive [facility] pH, UA 6 5 - 9 [facility] Protein, UA Negative Negative - 2000(20) ++++ mg/dL [facility] Spec Grav, UA 1.005 1 - 1.03 [facility] Urobilinogen, UA 0.2 0.2 - 12 mg/dL [facility] US OB FOLLOW UP TRANSABDOMIN AL [...] UA Negative Negative - 4(70) +++ mg/dL [facility] Blood, UA Positive Negative - 50 Daniel/mcL [facility] Comment on above: TRACE-INTACT Clarity, UA Clear [facility] Color, UA Yellow [facility] Glucose, UA Negative Negative - 1999(110) ++++ mg/dL [facility] Interpretation and review of laboratory results Abnormal [facility] Ketones, UA Negative Negative - 160(16) ++++ mg/dL [facility] Leukocytes, UA Negative Negative - 500+++ Gavin/mcL [facility] Nitrite, UA Negative Negative - Positive [facility] pH, UA 6 5 - 9 [facility] Protein, UA Negative Negative - 1999(20) ++++ mg/dL [facility] Spec Grav, UA 1.005 1 - 1.03 [facility] Urobilinogen, UA 0.2 0.2 - 12 mg/dL [facility] Urinalysis macro (dipstick) panel (U)on 05-11-2024 Bilirubin, UA Negative Negative - 4(70) +++ mg/dL [facility] Blood, UA Negative Negative - 50 Daniel/mcL [facility] Clarity, UA Clear [facility] Color, UA Yellow [facility] Glucose, UA Negative Negative - 1999(110) ++++ mg/dL [facility] Interpretation and review of laboratory results Abnormal [facility] Ketones, UA Negative Negative - 160(16) ++++ mg/dL [facility] Leukocytes, UA Trace Negative - 500+++ Gavin/mcL [facility] Nitrite, UA Negative Negative - Positive [facility] pH, UA 6.5 5 - 9 [facility] Protein, UA Negative Negative - 1999(20) ++++ mg/dL [facility] Spec Grav, UA 1.02 1 - 1.03 [facility] Urobilinogen, UA 0.2 0.2 - 12 mg/dL [facility] Urinalysis macro (dipstick) panel (U)on 04-27-2024 Bilirubin, UA Negative Negative - 4(70) +++ mg/dL [facility] Blood, UA Negative Negative - 50 Daniel/mcL [facility] Clarity, UA Clear [facility] Color, UA Yellow [facility] Glucose, UA Negative Negative - 1999(110) ++++ mg/dL [facility] Interpretation and review of laboratory results Abnormal [facility] Ketones, UA Negative Negative - 160(16) ++++ mg/dL [facility] Leukocytes, UA Trace Negative - 500+++ Gavin/mcL [facility] Nitrite, UA Negative Negative - Positive [facility] pH, UA 7 5 - 9 [facility] Protein, UA Negative Negative - 1999(20) ++++ mg/dL [facility] Spec Grav, UA 1.01 1 - 1.03 [facility] Urobilinogen, UA 0.2 0.2 - 12 mg/dL [facility] ALL CBC WITH AUTO DIFFon BASOPHILS ABSOLUTE AUTO 0 [facility] Basophils/100 WBC (Bld) 0.5 % 0.2 - 2.0 % [facility] Eosinophils/100 WBC (Bld) 0.5 % Low 0.9 - 7.0 % [facility] Erythrocyte distribution width (RBC) [Ratio] 12.9 % 11.0 - 15.0 % [facility] Hematocrit (Bld) [Volume fraction] 33.7 % Low 36.0 - 48.0 % [facility] Hemoglobin (Bld) [Mass/Vol] 10.8 g/dL Low 12.0 - 16.0 g/dL [facility] IMMATURE GRANULOCYTES ABS AUTO 0.04 High [facility] Immature granulocytes/100 WBC (Bld) 0.6 % High 0.0 - 0.5 % [facility] Interpretation and review of laboratory results Abnormal [facility] LYMPHOCYTES ABSOLUTE AUTO 1.3 [facility] Lymphocytes/100 WBC (Bld) 20.2 % Low 20.5 - 60.0 % [facility] MCH (RBC) [Entitic mass] 26.9 pg 26.7 - 34.0 pg [facility] MCHC (RBC) [Mass/Vol] 32 g/dL 29.9 - 35.2 g/dL [facility] MCV (RBC) [Entitic vol] 83.8 fL 81.0 - 99.0 fL [facility] MONOCYTES ABSOLUTE AUTO 0.5 [facility] Monocytes/100 WBC (Bld) 8.6 % 1.7 - 12.0 % [facility] NEUTROPHILS ABSOLUTE AUTO 4.4 [facility] Neutrophils/100 WBC (Bld) 69.6 % 43.0 - 75.0 % [facility] Platelet mean volume (Bld) [Entitic vol] 10.3 fL 9.5 - 13.5 fL [facility] TBH EO # 0 [facility] [address] [facility] RBC 4.02 Low [facility] WBC 6.3 [facility] Urinalysis macro (dipstick) panel (U)on 04-05-2024 Bilirubin, UA Negative Negative - 4(70) +++ mg/dL [facility] Blood, UA Negative Negative - 50 Daniel/mcL [facility] Clarity, UA Clear [facility] Color, UA Yellow [facility] Glucose, UA Negative Negative - 1999(110) ++++ mg/dL [facility] Interpretation and review of laboratory results Normal [facility] Ketones, UA Negative Negative - 160(16) ++++ mg/dL [facility] Leukocytes, UA Negative Negative - 500+++ Gavin/mcL [facility] Nitrite, UA Negative Negative - Positive [facility] pH, UA 5.5 5 - 9 [facility] Protein, UA Negative Negative - 1999(20) ++++ mg/dL [facility] Spec Grav, UA 1.025 1 - 1.03 [facility] Urobilinogen, UA 0.2 0.2 - 12 mg/dL [facility] AFP, SERUM, OPEN SPINA BIFID Aon 02-20-2024 AFP MOM 0.72 . [facility] AFP VALUE 27.2 ng/mL . [facility] COMMENT: Comment . [facility] Comment on above: Tiffanie Petersen , Ph.D., [facility] Director References: Available Upon Request. Multiples Of Median Cutoffs For AFP Elevations Patrick 2.5 Black 2.8 IDD 2.0 Twins 4.5 Abbreviation Definitions IDD - Insulin Dep Diabetes OSBR - Open Spina Bifida Risk For further inquiries contact [email or web address] at [phone]. This test was developed and its performance characteristics determined by [facility]. It has not been cleared or approved by the Food and Drug Administration. Performed at: [facility] [address] [place], [place] [id number] [employer] Machine Operator: Tor Real [facility], Phone: [phone] GEST. AGE ON COLLECTION DATE 18.3 . weeks [facility] GESTAT. AGE BASED ON LMP . [facility] Comment on above: Recalculations are n ot recommended when gestational dating by LMP and ultrasound are within 10 days. INSULIN DEP DIABETES No . [facility] INTERPRETATION Comment . [facility] Comment on above: Interpretation: Scre en Negative [...] Customer Services to discuss available options. The [employer] recommends amniocentesis be offered to women age 35 and older. [age] [facility] MULTIPLE GESTATION No . [facility] OSBR RISK [address] [place] [id number] . [facility] RACE . [facility] RESULTS Report . [facility] TEST RESULTS: Negative . [facility] WEIGHT 198 . lbs [facility] N N LMP [id number] [phone] N 1 Y 198 N N N N N White/ [facility] RECURRENT VAGINITIS (HTRX)on 02-11-2024 ATOPOBIUM VAGINAE 0 [facility] ATOPOBIUM VAGINAE Not detected [facility] BVAB 2,3 (BACTERIAL VAGINOSIS ASSOCIATED BACTERIA 2, 3); MOBILUNCUS SPP 0 [facility] BVAB 2,3 (BACTERIAL VAGINOSIS ASSOCIATED BACTERIA 2, 3); MOBILUNCUS SPP Not detected [facility] MARGARET ALBICANS, PARAPSILOSIS, TROPICALIS 0 [facility] MARGARET ALBICANS, PARAPSILOSIS, TROPICALIS Not detected [facility] MARGARET GLABRATA 0 [facility] MARGARET GLABRATA Not detected [facility] MARGARET KRUSEI 0 [facility] MARGARET KRUSEI Not detected [facility] CHLAMYDIA TRACHOMATIS 0 [facility] CHLAMYDIA TRACHOMATIS Not detected [facility] GARDNERELLA VAGINALIS 0 [facility] GARDNERELLA VAGINALIS Not detected [facility] MEGASPHAERA (TYPES 1, 2) 0 [facility] MEGASPHAERA (TYPES 1, 2) Not detected [facility] MYCOPLASMA GENITALIUM 0 [facility] MYCOPLASMA GENITALIUM Not detected [facility] NEISSERIA GONORRHOEAE 0 [facility] NEISSERIA GONORRHOEAE Not detected [facility] TRICHOMONAS VAGINALIS 0 [facility] TRICHOMONAS VAGINALIS Not detected [facility] Urinalysis macro (dipstick) panel (U)on 02-09-2024 Bilirubin, UA Negative Negative - 4(70) +++ mg/dL [facility] Blood, UA Negative Negative - 50 Daniel/mcL [facility] Clarity, UA Clear [facility] Color, UA Yellow [facility] Glucose, UA Negative Negative - 1999(110) ++++ mg/dL [facility] Interpretation and review of laboratory results Normal [facility] Ketones, UA Negative Negative - 160(16) ++++ mg/dL [facility] Leukocytes, UA Negative Negative - 500+++ Gavin/mcL [facility] Nitrite, UA Negative Negative - Positive [facility] pH, UA 5.5 5 - 9 [facility] Protein, UA Negative Negative - 1999(20) ++++ mg/dL [facility] Spec Grav, UA 1.02 1 - 1.03 [facility] Urobilinogen, UA 0.2 0.2 - 12 mg/dL [facility] ALL CBC WITH AUTO DIFFon BASOPHILS ABSOLUTE AUTO 0.0 [facility] Basophils/100 WBC (Bld) 0.1 % Low 0.2 - 2.0 % [facility] Eosinophils/100 WBC (Bld) 1.0 % 0.9 - 7.0 % [facility] Erythrocyte distribution width (RBC) [Ratio] 13.2 % 11.0 - 15.0 % [facility] Hematocrit (Bld) [Volume fraction] 36.4 % 36.0 - 48.0 % [facility] Hemoglobin (Bld) [Mass/Vol] 11.9 g/dL Low 12.0 - 16.0 g/dL [facility] IMMATURE GRANULOCYTES ABS AUTO 0.01 [facility] Immature granulocytes/100 WBC (Bld) 0.1 % 0.0 - 0.5 % [facility] Interpretation and review of laboratory results Abnormal [facility] LYMPHOCYTES ABSOLUTE AUTO 1.5 [facility] Lymphocytes/100 WBC (Bld) 22.8 % 20.5 - 60.0 % [facility] MCH (RBC) [Entitic mass] 28.1 pg 26.7 - 34.0 pg [facility] MCHC (RBC) [Mass/Vol] 32.7 g/dL 29.9 - 35.2 g/dL [facility] MCV (RBC) [Entitic vol] 86.1 fL 81.0 - 99.0 fL [facility] MONOCYTES ABSOLUTE AUTO 0.4 [facility] Monocytes/100 WBC (Bld) 6.0 % 1.7 - 12.0 % [facility] NEUTROPHILS ABSOLUTE AUTO 4.7 [facility] Neutrophils/100 WBC (Bld) 70.0 % 43.0 - 75.0 % [facility] Platelet mean volume (Bld) [Entitic vol] 10.7 fL 9.5 - 13.[address] [facility] EO # 0.[address] [facility] [address] [facility] RBC 4.23 [facility] WBC 6.7 [facility] Urinalysis macro (dipstick) panel (U)on 01-07-2024 Bilirubin, UA Negative Negative - 4(70) +++ mg/dL [facility] Blood, UA Negative Negative - 50 Daniel/mcL [facility] Clarity, UA Clear [facility] Color, UA Yellow [facility] Glucose, UA Negative Negative - 2000(110) ++++ mg/dL [facility] Interpretation and review of laboratory results Normal [facility] Ketones, UA Negative Negative - 160(16) ++++ mg/dL [facility] Leukocytes, UA Negative Negative - 500+++ Gavin/mcL [facility] Nitrite, UA Negative Negative - Positive [facility] pH, UA 6.5 5 - 9 [facility] Protein, UA Negative Negative - 2000(20) ++++ mg/dL [facility] Spec Grav, UA 1.020 1 - 1.03 [facility] Urobilinogen, UA 1.0 0.2 - 12 mg/dL [facility] ALL CBC WITH AUTO DIFFon BASOPHILS ABSOLUTE AUTO 0.0 [facility] Basophils/100 WBC (Bld) 0.3 % 0.2 - 2.0 % [facility] Eosinophils/100 WBC (Bld) 0.9 % 0.9 - 7.0 % [facility] Erythrocyte distribution width (RBC) [Ratio] 13.0 % 11.0 - 15.0 % [facility] Hematocrit (Bld) [Volume fraction] 39.1 % 36.0 - 48.0 % [facility] Hemoglobin (Bld) [Mass/Vol] 12.8 g/dL 12.0 - 16.0 g/dL [facility] IMMATURE GRANULOCYTES ABS AUTO 0.02 [facility] Immature granulocytes/100 WBC (Bld) 0.3 % 0.0 - 0.5 % [facility] Interpretation and review of laboratory results Abnormal [facility] [facility] LYMPHOCYTES ABSOLUTE AUTO 1.6 [facility] Lymphocytes/100 WBC (Bld) 20.4 % Low 20.5 - 60.0 % [facility] MCH (RBC) [Entitic mass] 27.8 pg 26.7 - 34.0 pg [facility] MCHC (RBC) [Mass/Vol] 32.7 g/dL 29.9 - 35.2 g/dL [facility] MCV (RBC) [Entitic vol] 84.8 fL 81.0 - 99.0 fL [facility] MONOCYTES ABSOLUTE AUTO 0.6 [facility] Monocytes/100 WBC (Bld) 7.1 % 1.7 - 12.0 % [facility] NEUTROPHILS ABSOLUTE AUTO 5.5 [facility] Neutrophils/100 WBC (Bld) 71.0 % 43.0 - 75.0 % [facility] Platelet mean volume (Bld) [Entitic vol] 10.2 fL 9.5 - 13.5 fL [facility] TBH EO # 0.1 [facility] PLT 254 [facility] RBC 4.61 [facility] WBC 7.7 [facility] Urinalysis macro (dipstick) panel (U)on 12-17-2023 Bilirubin, UA Negative Negative - 4(70) +++ mg/dL [facility] Blood, UA Negative Negative - 50 Daniel/mcL [facility] Clarity, UA Clear [facility] Color, UA Yellow [facility] Glucose, UA Negative Negative - 1999(110) ++++ mg/dL [facility] Interpretation and review of laboratory results Abnormal [facility] Ketones, UA Positive Negative - 160(16) ++++ mg/dL [facility] Comment on above: 15 Leukocytes, UA Negative Negative - 500+++ Gavin/mcL [facility] Nitrite, UA Negative Negative - Positive [facility] pH, UA 6.5 5 - 9 [facility] Protein, UA Negative Negative - 1999(20) ++++ mg/dL [facility] Spec Grav, UA 1.030 1 - 1.03 [facility] Urobilinogen, UA 1.0 0.2 - 12 mg/dL [facility] HCG ( test) Ql (U)o n 12-12-2023 Interpretation and review of laboratory results Abnormal [facility] Preg Test, Ur Positive [facility] Urinalysis macro (dipstick) panel (U)on 12-12-2023 Bilirubin, UA Positive Negative - 4(70) +++ mg/dL [facility] Comment on above: small Blood, UA Negative Negative - 50 Daniel/mcL [facility] Clarity, UA Clear [facility] Color, UA Yellow [facility] Glucose, UA Negative Negative - 1999(110) ++++ mg/dL [facility] Interpretation and review of laboratory results Abnormal [facility] Ketones, UA Positive Negative - 160(16) ++++ mg/dL [facility] Comment on above: trace Leukocytes, UA Negative Negative - 500+++ Gavin/mcL [facility] Nitrite, UA Negative Negative - Positive [facility] pH, UA 6.0 5 - 9 [facility] Protein, UA Positive Negative - 1999(20) ++++ mg/dL [facility] Comment on above: 30 Spec Grav, UA 1.030 1 - 1.03 [facility] Urobilinogen, UA 0.2 0.2 - 12 mg/dL [facility] Cytology Cervical or vaginal smear or scraping studyon 03-05-2023 [facility] CBC AUTO DIFFon 07-25-2022 BASO # 0.0 103/ul Normal 0.0-0.1 [facility] Comment on above: Performed By: #### C BC #### [facility] [address] [address] [address] Jerry Samuel Basophils/100 WBC (Bld) 0.3 % Normal 0.2-2.0 [facility] Comment on above: Performed By: #### C BC #### [facility] [address] [address] [address] Jerry Samuel EO # 0.1 103/ul Normal 0.0-0.7 [facility] Comment on above: Performed By: #### C BC #### [facility] [address] [address] [address] Jerry Samuel Eosinophils/100 WBC (Bld) 1.4 % Normal 0.9-7.0 [facility] Comment on above: Performed By: #### C BC #### [facility] [address] [address] [address] Jerry Samuel Erythrocyte distribution width (RBC) [Ratio] 13.2 % Normal 11.0-15.0 [facility] Comment on above: Performed By: #### C BC #### [facility] [address] [address] [address] Jerry Samuel Hematocrit (Bld) [Volume fraction] 33.9 % Critically low 36.0-48.0 [facility] Comment on above: Performed By: #### C BC #### [facility] [address] [address] [address] Jerry Samuel Hemoglobin (Bld) [Mass/Vol] 11.3 g/dL Critically low 12.0-16.0 [facility] Comment on above: Performed By: #### C BC #### [facility] [address] [address] [address] Jerry Samuel IG # 0.04 10e3/ul Critically high 0.00-0.[address] [facility] Comment on above: Performed By: #### C BC #### [facility] [address] [place] [address] Dr. Jerry Samuel IG % 0.6 % Critically high 0.0-0.5 [facility] Comment on above: Performed By: #### C BC #### [facility] [address] [place] [address] Dr. Jerry Samuel LYMPH # 1.9 103/ul Normal 1.2-3.8 [facility] Comment on above: Performed By: #### C BC #### [facility] [address] [place] [address] Dr. Jerry Samuel Lymphocytes/100 WBC (Bld) 30.2 % Normal 20.5-60.0 [facility] Comment on above: Performed By: #### C BC #### [facility] [address] [place] [address] Dr. Jerry Samuel MANUAL DIFF REQ NO Normal [facility] Comment on above: Performed By: #### C BC #### [facility] [address] [place] [address] Dr. Jerry Samuel MCH (RBC) [Entitic mass] 29.9 pg Normal 26.7-34.0 [facility] Comment on above: Performed By: #### C BC #### [facility] [address] [place] [address] Dr. Jerry Samuel MCHC (RBC) [Mass/Vol] 33.3 g/dL Normal 29.9-35.2 [facility] Comment on above: Performed By: #### C BC #### [facility] [address] [place] [address] Dr. Jerry Samuel MCV (RBC) [Entitic vol] 89.7 fL Normal 81.0-99.0 [facility] Comment on above: Performed By: #### C BC #### [facility] [address] [place] [address] Dr. Jerry Samuel MONO # 0.5 103/ul Normal 0.3-0.8 [facility] Comment on above: Performed By: #### C BC #### [facility] [address] [address] [address] Jerry Samuel Monocytes/100 WBC (Bld) 7.2 % Normal 1.7-12.0 [facility] Comment on above: Performed By: #### C BC #### [facility] [address] [address] [address] Jerry Samuel NEUT # 3.8 103/ul Normal 1.4-6.5 [facility] Comment on above: Performed By: #### C BC #### [facility] [address] [address] [address] Jerry Samuel Neutrophils/100 WBC (Bld) 60.3 % Normal 43.0-75.0 [facility] Comment on above: Performed By: #### C BC #### [facility] [address] [place] [address] Dr. Jerry Samuel Platelet mean volume (Bld) [Entitic vol] 9.8 fL Normal 9.5-13.5 [facility] Comment on above: Performed By: #### C BC #### [facility] [address] [address] [address] Jerry Samuel PLT 188 103/ul Normal 150-450 [facility] Comment on above: Performed By: #### C BC #### [facility] [address] [place] [address] Dr. Jerry Samuel RBC 3.78 106/ul Critically low 4.20-5.40 [facility] Comment on above: Performed By: #### C BC #### [facility] [address] [place] [address] Dr. Jerry Samuel WBC 6.2 103/ul Normal 4.0-11.0 [facility] Comment on above: Performed By: #### C BC #### [facility] [address] [place] [address] Dr. Jerry Samuel GLUCOSE - 1HRon 07-25-2022 Glucose [Mass/Vol] 100 mg/dL Normal 74-106 [facility] Comment on above: Performed By: #### N BOX #### [facility] [address] [address] [address] Jerry Samuel US PREG ANATOMY SINGLEon [...] ABRIL SCANLON Date: 2022-07-02 13:45 Normal [facility] AFP MATERNAL FOR SPINA BIFID Aon 06-14-2022 AFP MoM 0.87 Normal [facility] Comment on above: Performed By: #### R PRQ #### [facility] [address] [place] [address] Dr. Jerry Samuel AFP Value 39.6 ng/mL Normal [facility] Comment on above: Performed By: #### R PRQ #### [facility] [address] [place] [address] Dr. Jerry Samuel AFP, Serum for Spina Bifida Report Normal [facility] Comment on above: Performed By: #### R PRQ #### [facility] [address] [place] [address] Dr. Jerry Samuel Comment Comment Normal [facility] Comment on above: Result Comment: Irina Petersen, Ph.D., [facility] Director . References: Available Upon Request. . Multiples Of Median Cutoffs For AFP Elevations Patrick 2.5 Black 2.8 IDD 2.0 Twins 4.5 Abbreviation Definitions IDD - Insulin Dep Diabetes OSBR - Open Spina Bifida Risk . For further inquiries contact [email or web address] at [phone]. . This test was developed and its performance characteristics determined by [employer]. It has not been cleared or approved by the Food and Drug Administration. Performed By: #### R PRQ #### [facility] [address] [place] [address] Dr. Jerry Samuel Gest Age Collection Date 18.9 weeks Normal [facility] Comment on above: Performed By: #### R PRQ #### [facility] [address] [place] [address] Dr. Jerry Samuel Gestat, Age Based on Ultrasound Normal [facility] Comment on above: Result Comment: 09.0 on 04/04/2022 Recalculations are not recommended when gestational dating by LMP and ultrasound are within 10 days. Performed By: #### R PRQ #### [facility] [address] [place] [address] Dr. Jerry Samuel Insulin Dep Diabetes No Normal [facility] Comment on above: Performed By: #### R PRQ #### [facility] [address] [place] [address] Dr. Jerry Samuel Interpretation Comment Normal [facility] Comment on above: Result Comment: [...] Customer Services to discuss available options. The [employer] recommends amniocentesis be offered to women age 35 and older. Performed By: #### R PRQ #### [facility] [address] [address] [address] Jerry Samuel [age] Normal [facility] Comment on above: Performed By: #### R PRQ #### [facility] [address] [address] [address] Jerry Samuel Multiple Gestation No Normal [facility] Comment on above: Performed By: #### R PRQ #### [facility] [address] [place] [address] Dr. Jerry Samuel OS[place] [address] Normal [facility] Comment on above: Performed By: #### R PRQ #### [facility] [address] [place] [address] Dr. Jerry Samuel PDF . Normal [facility] Comment on above: Performed By: #### R PRQ #### [facility] [address] [address] [address] Jerry Samuel Race [facility] Comment on above: Performed By: #### R PRQ #### [facility] [address] [place] [address] Dr. Jerry Samuel Test Results: Negative Normal [facility] Comment on above: Performed By: #### R PRQ #### [facility] [address] [place] [address] Dr. Jerry Samuel CHLAMYDIA/GONOCOCCUS ELINOR (SW AB/URINE/PAPon 06-07-2022 Chlamydia trachomatis, ELINOR Negative Normal Negative [facility] Comment on above: Performed By: #### R PRQ #### [facility] [address] [place] [address] Dr. Jerry Samuel Neisseria gonorrhoeae, ELINOR Negative Normal Negative [facility] Comment on above: Performed By: #### R PRQ #### [facility] [address] [place] [address] Dr. Jerry Samuel VAGINITIS/VAGINOSIS DNA PROB Nayan 06-06-2022 Margaret species Negative Normal Negative [facility] Comment on above: Performed By: #### V AGINT #### [facility] [address] [place] [address] Dr. Jerry Samuel Gardnerella vaginalis Negative Normal Negative [facility] Comment on above: Performed By: #### V AGINT #### [facility] [address] [place] [address] Dr. Jerry Samuel Trichomonas vaginalis Negative Normal Negative [facility] Comment on above: Performed By: #### V AGINT #### [facility] [address] [place] [address] Dr. Jerry Samuel CBC AUTO DIFFon 05-26-2022 BASO # 0.0 103/ul Normal 0.0-0.1 [facility] Comment on above: Performed By: #### C BC #### [facility] [address] [place] [address] Dr. Jerry Samuel Basophils/100 WBC (Bld) 0.1 % Critically low 0.2-2.0 [facility] Comment on above: Performed By: #### C BC #### [facility] [address] [place] [address] Dr. Jerry Samuel EO # 0.0 103/ul Normal 0.0-0.7 [facility] Comment on above: Performed By: #### C BC #### [facility] [address] [place] [address] Dr. Jerry Samuel Eosinophils/100 WBC (Bld) 0.4 % Critically low 0.9-7.0 [facility] Comment on above: Performed By: #### C BC #### [facility] [address] [place] [address] Dr. Jerry Samuel Erythrocyte distribution width (RBC) [Ratio] 12.6 % Normal 11.0-15.0 [facility] Comment on above: Performed By: #### C BC #### [facility] [address] [place] [address] Dr. Jerry Samuel Hematocrit (Bld) [Volume fraction] 34.0 % Critically low 36.0-48.0 [facility] Comment on above: Performed By: #### C BC #### [facility] [address] [place] [address] Dr. Jerry Samuel Hemoglobin (Bld) [Mass/Vol] 11.6 g/dL Critically low 12.0-16.0 [facility] Comment on above: Performed By: #### C BC #### [facility] [address] [place] [address] Dr. Jerry Samuel IG # 0.03 10e3/ul Normal 0.00-0.03 [facility] Comment on above: Performed By: #### C BC #### [facility] [address] [place] [address] Dr. Jerry Samuel IG % 0.4 % Normal 0.0-0.5 [facility] Comment on above: Performed By: #### C BC #### [facility] [address] [place] [address] Dr. Jerry Samuel LYMPH # 1.1 103/ul Critically low 1.2-3.8 [facility] Comment on above: Performed By: #### C BC #### [facility] [address] [place] [address] Dr. Jerry Samuel Lymphocytes/100 WBC (Bld) 16.5 % Critically low 20.5-60.0 [facility] Comment on above: Performed By: #### C BC #### [facility] [address] [place] [address] Dr. Jerry Samuel MANUAL DIFF REQ NO Normal [facility] Comment on above: Performed By: #### C BC #### [facility] [address] [place] [address] Dr. Jerry Samuel MCH (RBC) [Entitic mass] 29.1 pg Normal 26.7-34.0 [facility] Comment on above: Performed By: #### C BC #### [facility] [address] [place] [address] Dr. Jerry Samuel MCHC (RBC) [Mass/Vol] 34.1 g/dL Normal 29.9-35.2 [facility] Comment on above: Performed By: #### C BC #### [facility] [address] [place] [address] Dr. Jerry Samuel MCV (RBC) [Entitic vol] 85.2 fL Normal 81.0-99.0 [facility] Comment on above: Performed By: #### C BC #### [facility] [address] [place] [address] Dr. Jerry Samuel MONO # 0.4 103/ul Normal 0.3-0.8 [facility] Comment on above: Performed By: #### C BC #### [facility] [address] [place] [address] Dr. Jerry Samuel Monocytes/100 WBC (Bld) 6.0 % Normal 1.7-12.0 [facility] Comment on above: Performed By: #### C BC #### [facility] [address] [place] [address] Dr. Jerry Samuel NEUT # 5.1 103/ul Normal 1.4-6.5 [facility] Comment on above: Performed By: #### C BC #### [facility] [address] [place] [address] Dr. Jerry Samuel Neutrophils/100 WBC (Bld) 76.6 % Critically high 43.0-75.0 [facility] Comment on above: Performed By: #### C BC #### [facility] [address] [place] [address] Dr. Jerry Samuel Platelet mean volume (Bld) [Entitic vol] 10.5 fL Normal 9.5-13.5 [facility] Comment on above: Performed By: #### C BC #### [facility] [address] [place] [address] Dr. Jerry Samuel PLT 207 103/ul Normal 150-450 [facility] Comment on above: Performed By: #### C BC #### [facility] [address] [place] [address] Dr. Jerry Samuel RBC 3.99 106/ul Critically low 4.20-5.40 [facility] Comment on above: Performed By: #### C BC #### [facility] [address] [place] [address] Dr. Jerry Samuel WBC 6.7 103/ul Normal 4.0-11.0 [facility] Comment on above: Performed By: #### C BC #### [facility] [address] [place] [address] Dr. Jerry Samuel ER URINE PROFILEon 3 Bilirubin Ql (U) Negative Normal NEGATIVE [facility] Comment on above: Performed By: #### E RUR #### [facility] [address] [place] [address] Dr. Jerry Samuel Clarity (U) CLEAR Normal CLEAR [facility] Comment on above: Performed By: #### E RUR #### [facility] [address] [place] [address] Dr. Jerry Samuel Color (U) LT. YELLOW Normal YELLOW [facility] Comment on above: Performed By: #### E RUR #### [facility] [address] [place] [address] Dr. Jerry Samuel ERUAHD A micrscopic examina tion will be performed if indicated. Normal [facility] Comment on above: Performed By: #### E RUR #### [facility] [address] [place] [address] Dr. Jerry Samuel Glucose Ql (U) Negative Normal NEGATIVE [facility] Comment on above: Performed By: #### E RUR #### [facility] [address] [address] [address] Jerry Samuel Hemoglobin Ql (U) Negative Normal NEGATIVE [facility] Comment on above: Performed By: #### E RUR #### [facility] [address] [place] [address] Dr. Jerry Samuel Ketones Ql (U) Negative Normal NEGATIVE [facility] Comment on above: Performed By: #### E RUR #### [facility] [address] [place] [address] Dr. Jerry Samuel LEUKOCYTES Negative Normal NEGATIVE [facility] Comment on above: Performed By: #### E RUR #### [facility] [address] [place] [address] Dr. Jerry Samuel Nitrite Ql (U) Negative Normal NEGATIVE [facility] Comment on above: Performed By: #### E RUR #### [facility] [address] [place] [address] Dr. Jerry Samuel pH (U) 6.5 [pH] Normal 5-9 [facility] Comment on above: Performed By: #### E RUR #### [facility] [address] [place] [address] Dr. Jerry Samuel SPEC GRAVITY <=1.005 Abnormal 1.005-<=1.025 [facility] Comment on above: Performed By: #### E RUR #### [facility] [address] [place] [address] Dr. Jerry Samuel UA PROTEIN Negative Normal NEGATIVE/ TRACE [facility] Comment on above: Performed By: #### E RUR #### [facility] [address] [place] [address] Dr. Jerry Smauel UR MICRO IND NOT INDICATED Normal [facility] Comment on above: Performed By: #### E RUR #### [facility] [address] [place] [address] Dr. Jerry Samuel Urobilinogen Qn (U) 0.2 {Charlette'U}/dL Normal 0.2 - 1. 0 [facility] Comment on above: Performed By: #### E RUR #### [facility] [address] [place] [address] Dr. Jerry Samuel PROF 14(COMP METB)on 023 Albumin [Mass/Vol] 3.4 g/dL Normal 3.4-5.0 [facility] Comment on above: Performed By: #### R PRQ #### [facility] [address] [place] [address] Dr. Jerry Samuel Albumin/Globulin [Mass ratio] 1.0 {ratio} Normal [facility] Comment on above: Performed By: #### R PRQ #### [facility] [address] [address] [address] Jerry Samuel ALP [Catalytic activity/Vol] 33 U/L Critically low 46-116 [facility] Comment on above: Performed By: #### R PRQ #### [facility] [address] [place] [address] Dr. Jerry Samuel ALT [Catalytic activity/Vol] 16 U/L Normal 14-59 [facility] Comment on above: Performed By: #### R PRQ #### [facility] [address] [address] [address] Jerry Samuel Anion gap [Moles/Vol] 8.5 mmol/L Normal [facility] Comment on above: Performed By: #### R PRQ #### [facility] [address] [place] [address] Dr. Jerry Samuel AST [Catalytic activity/Vol] 12 U/L Critically low 15-37 [facility] Comment on above: Performed By: #### R PRQ #### [facility] [address] [place] [address] Dr. Jerry Samuel Bilirubin [Mass/Vol] 0.3 mg/dL Normal 0.2-1.0 [facility] Comment on above: Performed By: #### R PRQ #### [facility] [address] [place] [address] Dr. Jerry Samuel Calcium [Mass/Vol] 9.2 mg/dL Normal 8.5-10.1 [facility] Comment on above: Performed By: #### R PRQ #### [facility] [address] [place] [address] Dr. Jerry Samuel Chloride [Moles/Vol] 105 mmol/L Normal 98-107 [facility] Comment on above: Performed By: #### R PRQ #### [facility] [address] [address] [address] Jerry Samuel CO2 [Moles/Vol] 25.0 mmol/L Normal 21.0-32.0 [facility] Comment on above: Performed By: #### R PRQ #### [facility] [address] [place] [address] Dr. Jerry Samuel Creatinine [Mass/Vol] 0.40 mg/dL Critically low 0.55-1.02 [facility] Comment on above: Performed By: #### R PRQ #### [facility] [address] [place] [address] Dr. Jerry Samuel EGFR-AF MALTESE >60 Normal >=60 [facility] Comment on above: Performed By: #### R PRQ #### [facility] [address] [address] [address] Jerry Samuel EGFR-NON AF MALTESE >60 Normal >=60 [facility] Comment on above: Performed By: #### R PRQ #### [facility] [facility] [address] [place] [address] Dr. Jerry Samuel Globulin (S) [Mass/Vol] 3.5 g/dL Normal [facility] Comment on above: Performed By: #### R PRQ #### [facility] [address] [place] [address] Dr. Jerry Samuel Glucose [Mass/Vol] 94 mg/dL Normal 74-106 [facility] Comment on above: Performed By: #### R PRQ #### [facility] [address] [place] [address] Dr. Jerry Samuel Potassium [Moles/Vol] 3.5 mmol/L Normal 3.5-5.1 [facility] Comment on above: Performed By: #### R PRQ #### [facility] [address] [place] [address] Dr. Jerry Samuel Protein [Mass/Vol] 6.9 g/dL Normal 6.4-8.2 [facility] Comment on above: Performed By: #### R PRQ #### [facility] [address] [place] [address] Dr. Jerry Samuel Sodium [Moles/Vol] 135 mmol/L Critically low 136-145 [facility] Comment on above: Performed By: #### R PRQ #### [facility] [address] [place] [address] Dr. Jerry Samuel Urea nitrogen [Mass/Vol] 6.0 mg/dL Critically low 7.0-18.0 [facility] Comment on above: Performed By: #### R PRQ #### [facility] [address] [place] [address] Dr. Jerry Samuel Urea nitrogen/Creatinine [Mass ratio] 15.0 mg/mg Normal [facility] Comment on above: Performed By: #### R PRQ #### [facility] [address] [place] [address] Dr. Jerry Samuel DOROTEO BOX TEST PT SEND OUTo n 05-02-2022 SENT TO REF LAB 05/02/2022 Normal [facility] Comment on above: Performed By: #### N BOX #### [facility] [address] [place] [address] Dr. Jerry Samuel HEP B SURFACE ANTIGEN SCREEN on 04-05-2022 HBsAg Screen Negative Normal Negative [facility] Comment on above: Performed By: #### N BOX #### [facility] [address] [place] [address] Dr. Jerry Samuel HEPATITIS C VIRUS AB W/ REFL EX QUANTon 04-05-2022 HCV AB <0.1 Normal 0.0-0.9 [facility] Comment on above: Performed By: #### H CVPCRR #### [facility] [address] [place] [address] Dr. Jerry Samuel Interpretation: Comment Normal [facility] Comment on above: Result Comment: Nega tive Not infected with HCV, unless recent infection is suspected or other evidence exists to indicate HCV infection. Performed By: #### H CVPCRR #### [facility] [address] [place] [address] Dr. Jerry Samuel HIV 1 AND 2 WITH REFLEXon HIV Screen 4th Generation wRfx Non-Reactive Normal Non Reactive [facility] Comment on above: Result Comment: HIV Negative HIV-1/HIV-2 antibodies and HIV-1 p24 antigen were NOT detected. There is no laboratory evidence of HIV infection. Performed By: #### R PRQ #### [facility] [address] [place] [address] Dr. Jerry Samuel RPR QUANTon 04-05-2022 Rapid Plasma Reagin, Quant Non-Reactive Normal NonRea<1:1 [facility] Comment on above: Result Comment: Nathaly wilkes Note: This test does not meet current guidelines for screening and diagnosis of syphilis. This test is intended for following treatment response in patients being treated for syphilis infection. To screen for syphilis infection, a reflex cascade that includes both RPR and a treponema-specific assay should be utilized, such as Treponema pallidum (Syphilis) Screening [place] (186479) or Rapid Plasma Reagin (RPR) Test With Reflex to Quantitative RPR and Confirmatory Treponema pallidum Antibodies (165554). Performed By: #### R PRQ #### [facility] [address] [place] [address] Dr. Jerry Samuel RUBELLA AB IGGon 04-05-2022 Rubella Antibodies, IgG 1.97 index Normal Immune >0.99 [facility] Comment on above: Result Comment: Non- immune <0.90 Equivocal 0.90 - 0.99 Immune >0.99 Performed By: #### R UBIGG #### [facility] [address] [place] [address] Dr. Jerry Samuel CBC AUTO DIFFon 04-04-2022 BASO # 0.0 103/ul Normal 0.0-0.1 [facility] Comment on above: Performed By: #### R PRQ #### [facility] [address] [place] [address] Dr. Jerry Samuel Basophils/100 WBC (Bld) 0.3 % Normal 0.2-2.0 [facility] Comment on above: Performed By: #### R PRQ #### [facility] [address] [place] [address] Dr. Jerry Samuel EO # 0.1 103/ul Normal 0.0-0.7 [facility] Comment on above: Performed By: #### R PRQ #### [facility] [address] [place] [address] Dr. Jerry Samuel Eosinophils/100 WBC (Bld) 0.7 % Critically low 0.9-7.0 [facility] Comment on above: Performed By: #### R PRQ #### [facility] [address] [place] [address] Dr. Jerry Samuel Erythrocyte distribution width (RBC) [Ratio] 12.3 % Normal 11.0-15.0 [facility] Comment on above: Performed By: #### R PRQ #### [facility] [address] [place] [address] Dr. Jerry Samuel Hematocrit (Bld) [Volume fraction] 35.1 % Critically low 36.0-48.0 [facility] Comment on above: Performed By: #### R PRQ #### [facility] [address] [place] [address] Dr. Jerry Samuel Hemoglobin (Bld) [Mass/Vol] 11.8 g/dL Critically low 12.0-16.0 [facility] Comment on above: Performed By: #### R PRQ #### [facility] [address] [place] [address] Dr. Jerry Samuel IG # 0.02 10e3/ul Normal 0.00-0.03 [facility] Comment on above: Performed By: #### R PRQ #### [facility] [address] [place] [address] Dr. Jerry Samuel IG % 0.3 % Normal 0.0-0.5 [facility] Comment on above: Performed By: #### R PRQ #### [facility] [address] [place] [address] Dr. Jerry Samuel LYMPH # 2.0 103/ul Normal 1.2-3.8 [facility] Comment on above: Performed By: #### R PRQ #### [facility] [address] [place] [address] Dr. Jerry Samuel Lymphocytes/100 WBC (Bld) 26.7 % Normal 20.5-60.0 [facility] Comment on above: Performed By: #### R PRQ #### [facility] [address] [place] [address] Dr. Jerry Samuel MANUAL DIFF REQ NO Normal [facility] Comment on above: Performed By: #### R PRQ #### [facility] [address] [address] [address] Jerry Samuel MCH (RBC) [Entitic mass] 29.0 pg Normal 26.7-34.0 [facility] Comment on above: Performed By: #### R PRQ #### [facility] [address] [place] [address] Dr. Jerry Samuel MCHC (RBC) [Mass/Vol] 33.6 g/dL Normal 29.9-35.2 [facility] Comment on above: Performed By: #### R PRQ #### [facility] [address] [place] [address] Dr. Jerry Samuel MCV (RBC) [Entitic vol] 86.2 fL Normal 81.0-99.0 [facility] Comment on above: Performed By: #### R PRQ #### [facility] [address] [place] [address] Dr. Jerry Samuel MONO # 0.5 103/ul Normal 0.3-0.8 [facility] Comment on above: Performed By: #### R PRQ #### [facility] [address] [place] [address] Dr. Jerry Samuel Monocytes/100 WBC (Bld) 6.7 % Normal 1.7-12.0 [facility] Comment on above: Performed By: #### R PRQ #### [facility] [address] [place] [address] Dr. Jerry Samuel NEUT # 4.9 103/ul Normal 1.4-6.5 [facility] Comment on above: Performed By: #### R PRQ #### [facility] [address] [place] [address] Dr. Jerry Samuel Neutrophils/100 WBC (Bld) 65.3 % Normal 43.0-75.0 [facility] Comment on above: Performed By: #### R PRQ #### [facility] [address] [place] [address] Dr. Jerry Samuel Platelet mean volume (Bld) [Entitic vol] 10.0 fL Normal 9.5-13.5 [facility] Comment on above: Performed By: #### R PRQ #### [facility] [address] [address] [address] Jerry Samuel PLT 218 103/ul Normal 150-450 [facility] Comment on above: Performed By: #### R PRQ #### [facility] [address] [address] [address] Jerry Samuel RBC 4.07 106/ul Critically low 4.20-5.40 [facility] Comment on above: Performed By: #### R PRQ #### [facility] [address] [address] [address] Jerry Samuel WBC 7.5 103/ul Normal 4.0-11.0 [facility] Comment on above: Performed By: #### R PRQ #### [facility] [address] [place] [address] Dr. Jerry Samuel CULTURE URINEon 04-04-2022 CULTURE URINE Culture Observations : NO GROWTH. Normal [facility] Comment on above: Performed By: #### N BOX #### [facility] [address] [address] [address] Jerry Samuel GLYCOHEMOGLOBIN A1Con 2021 ADA RECOMMENDATION SEE BELOW Normal [facility] Comment on above: Result Comment: ADA RECOMMENDED LIMIT 4.0 - 6.0 ADA THERAPEUTIC TARGET < 7.0 ACTION SUGGESTED > 7.0 Performed By: #### N BOX #### [facility] [address] [address] [address] Jerry Samuel Glucose [Mass/Vol] 97 mg/dL Normal [facility] Comment on above: Performed By: #### N BOX #### [facility] [address] [address] [address] Jerry Samuel HbA1c (Bld) [Mass fraction] 5.0 % Normal 4.5-6.2 [facility] Comment on above: Performed By: #### N BOX #### [facility] [address] [address] [address] Jerry Samuel TYPE AND SCREENon 04-04-2022 TYPE AND SCREEN Negative Normal [facility] Comment on above: Performed By: #### N BOX #### [facility] [address] [address] [address] Jerry Samuel US PREG TVon 04-04-2022 [...] EDITH WILLIS Date: 2022-04-04 16:13 Normal [facility] PREG QUANT HCGon 03-07-2022 HCG QUANT 2201 mIU/mL Normal [facility] Comment on above: Performed By: #### R PRQ #### [facility] [address] [place] [address] Dr. Jerry Samuel HCG RANGE SEE BELOW Normal [facility] Comment on above: Result Comment: 5-50 0.2-1 WEEK 50-500 1-2 WEEKS 100-5,000 2-3 WEEKS 500-10,000 3-4 WEEKS 1,000-50,000 4-5 WEEKS 10,000-100,000 5-6 WEEKS 15,000-200,000 6-8 WEEKS 10,000-100,000 2-3 MONTHS Performed By: #### R PRQ #### [facility] [address] [place] [address] Dr. Jerry Samuel PREG QUANT HCGon 03-05-2022 HCG QUANT 820 mIU/mL Normal [facility] Comment on above: Performed By: #### R PRQ #### [facility] [address] [place] [address] Dr. Jerry Samuel HCG RANGE SEE BELOW Normal [facility] Comment on above: Result Comment: 5-50 0.2-1 WEEK 50-500 1-2 WEEKS 100-5,000 2-3 WEEKS 500-10,000 3-4 WEEKS 1,000-50,000 4-5 WEEKS 10,000-100,000 5-6 WEEKS 15,000-200,000 6-8 WEEKS 10,000-100,000 2-3 MONTHS Performed By: #### R PRQ #### [facility] [address] [place] [address] Dr. Jerry Samuel PAP ACOG PANEL 2: 22 to 30on 02-21-2022 . . Normal [facility] Comment on above: Performed By: #### R PRQ #### [facility] [address] [place] [address] Dr. Jerry Samuel Age Gdln ACOG Testing - [facility] Comment on above: Performed By: #### R PRQ #### [facility] [address] [place] [address] Dr. Jerry Samuel DIAGNOSIS: Comment [facility] Comment on above: Result Comment: NEGA TIVE FOR INTRAEPITHELIAL LESION OR MALIGNANCY. SPECIMEN REPROCESSED FOR INTERPRETATION. Performed By: #### R PRQ #### [facility] [address] [place] [address] Dr. Jerry Samuel Methodology: Comment [facility] Comment on above: Result Comment: This liquid based ThinPrep(R) pap test was screened with the use of an image guided system. Performed By: #### R PRQ #### [facility] [address] [place] [address] Dr. Jerry Samuel Note: Comment [facility] Comment on above: Result Comment: The Pap smear is a screening test designed to aid in the detection of premalignant and malignant conditions of the uterine cervix. It is not a diagnostic procedure and should not be used as the sole means of detecting cervical cancer. Both false-positive and false-negative reports do occur. . Performed By: #### R PRQ #### [facility] [address] [place] [address] Dr. Jerry Samuel Performed by: Comment [facility] Comment on above: Result Comment: Anders Roman, Aerial Lineman (ASCP) Performed By: #### R PRQ #### [facility] [address] [place] [address] Dr. Jerry Samuel Reflex Criteria: Comment Normal [facility] Comment on above: Result Comment: The HPV DNA reflex criteria were not met with this specimen result therefore, no HPV testing was performed. . Performed By: #### R PRQ #### [facility] [address] [place] [address] Dr. Jerry Samuel Specimen adequacy: Comment Normal [facility] Comment on above: Result Comment: Sati sfactory for evaluation. Endocervical and/or squamous metaplastic cells (endocervical component) are present. Performed By: #### R PRQ #### [facility] [address] [place] [address] Dr. Jerry Samuel US PELVIS AND TRANSVAGon [...] EDITH WILLIS Date: 2022-02-13 14:34 Normal [facility] CBC AUTO DIFFon 02-12-2022 BASO # 0.0 103/ul Normal 0.0-0.1 [facility] Comment on above: Performed By: #### C BC #### [facility] [address] [place] [address] Dr. Jerry Samuel Basophils/100 WBC (Bld) 0.6 % Normal 0.2-2.0 [facility] Comment on above: Performed By: #### C BC #### [facility] [address] [place] [address] Dr. Jerry Samuel EO # 0.1 103/ul Normal 0.0-0.7 [facility] Comment on above: Performed By: #### C BC #### [facility] [address] [place] [address] Dr. Jerry Samuel Eosinophils/100 WBC (Bld) 1.2 % Normal 0.9-7.0 [facility] Comment on above: Performed By: #### C BC #### [facility] [address] [place] [address] Dr. Jerry Samuel Erythrocyte distribution width (RBC) [Ratio] 11.9 % Normal 11.0-15.0 [facility] Comment on above: Performed By: #### C BC #### [facility] [address] [place] [address] Dr. Jerry Samuel Hematocrit (Bld) [Volume fraction] 39.1 % Normal 36.0-48.0 [facility] Comment on above: Performed By: #### C BC #### [facility] [address] [place] [address] Dr. Jerry Samuel Hemoglobin (Bld) [Mass/Vol] 13.0 g/dL Normal 12.0-16.0 [facility] Comment on above: Performed By: #### C BC #### [facility] [address] [place] [address] Dr. Jerry Samuel IG # 0.01 10e3/ul Normal 0.00-0.03 [facility] Comment on above: Performed By: #### C BC #### [facility] [address] [place] [address] Dr. Jerry Samuel IG % 0.2 % Normal 0.0-0.5 [facility] Comment on above: Performed By: #### C BC #### [facility] [address] [place] [address] Dr. Jerry Samuel LYMPH # 2.4 103/ul Normal 1.2-3.8 [facility] Comment on above: Performed By: #### C BC #### [facility] [address] [place] [address] Dr. Jerry Samuel Lymphocytes/100 WBC (Bld) 37.7 % Normal 20.5-60.0 [facility] Comment on above: Performed By: #### C BC #### [facility] [address] [place] [address] Dr. Jerry Samuel MANUAL DIFF REQ NO Normal [facility] Comment on above: Performed By: #### C BC #### [facility] [address] [place] [address] Dr. Jerry Samuel MCH (RBC) [Entitic mass] 29.2 pg Normal 26.7-34.0 [facility] Comment on above: Performed By: #### C BC #### [facility] [address] [place] [address] Dr. Jerry Samuel MCHC (RBC) [Mass/Vol] 33.2 g/dL Normal 29.9-35.2 [facility] Comment on above: Performed By: #### C BC #### [facility] [address] [place] [address] Dr. Jerry Samuel MCV (RBC) [Entitic vol] 87.9 fL Normal 81.0-99.0 [facility] Comment on above: Performed By: #### C BC #### [facility] [address] [place] [address] Dr. Jerry Samuel MONO # 0.4 103/ul Normal 0.3-0.8 [facility] Comment on above: Performed By: #### C BC #### [facility] [address] [place] [address] Dr. Jerry Samuel Monocytes/100 WBC (Bld) 5.9 % Normal 1.7-12.0 [facility] Comment on above: Performed By: #### C BC #### [facility] [address] [place] [address] Dr. Jerry Samuel NEUT # 3.5 103/ul Normal 1.4-6.5 [facility] Comment on above: Performed By: #### C BC #### [facility] [address] [place] [address] Dr. Jerry Samuel Neutrophils/100 WBC (Bld) 54.4 % Normal 43.0-75.0 [facility] Comment on above: Performed By: #### C BC #### [facility] [address] [place] [address] Dr. Jerry Samuel Platelet mean volume (Bld) [Entitic vol] 9.9 fL Normal 9.5-13.5 [facility] Comment on above: Performed By: #### C BC #### [facility] [address] [place] [address] Dr. Jerry Samuel PLT 229 103/ul Normal 150-450 [facility] Comment on above: Performed By: #### C BC #### [facility] [address] [place] [address] Dr. Jerry Samuel RBC 4.45 106/ul Normal 4.20-5.40 [facility] Comment on above: Performed By: #### C BC #### [facility] [address] [place] [address] Dr. Jerry Samuel WBC 6.5 103/ul Normal 4.0-11.0 [facility] Comment on above: Performed By: #### C BC #### [facility] [address] [place] [address] Dr. Jerry Samuel FREE T4on 02-12-2022 Free T4 [Mass/Vol] 0.99 ng/dL Normal 0.76-1.[address] [facility] Comment on above: Performed By: #### R PRQ #### [facility] [address] [place] [address] Dr. Jerry Samuel GLYCOHEMOGLOBIN A1Con 2021 ADA RECOMMENDATION SEE BELOW Normal [facility] Comment on above: Result Comment: ADA RECOMMENDED LIMIT 4.0 - 6.0 ADA THERAPEUTIC TARGET < 7.0 ACTION SUGGESTED > 7.0 Performed By: #### R PRQ #### [facility] [address] [place] [address] Dr. Jerry Samuel Glucose [Mass/Vol] 103 mg/dL Normal [facility] Comment on above: Performed By: #### R PRQ #### [facility] [address] [place] [address] Dr. Jerry Samuel HbA1c (Bld) [Mass fraction] 5.2 % Normal 4.5-6.2 [facility] Comment on above: Performed By: #### R PRQ #### [facility] [address] [place] [address] Dr. Jerry Samuel PROTIMEon 02-12-2022 INR Coag (PPP) [Relative time] 1.00 {INR} Normal [facility] Comment on above: Performed By: #### N BOX #### [facility] [address] [place] [address] Dr. Jerry Samuel INR GUIDELINES SEE BELOW Normal [facility] Comment on above: Result Comment: SACHA RED INR: 2.0 - 3.0 CONDITIONS NOT LISTED BELOW 2.5 - 3.5 FOR PROSTHETIC HEART VALVE REPLACEMENT 2.5 - 3.5 RECURRENT THROMBOSIS Performed By: #### N BOX #### [facility] [address] [place] [address] Dr. Jerry Samuel PT Coag (PPP) [Time] 10.8 s Normal 9.0-11.6 [facility] Comment on above: Performed By: #### N BOX #### [facility] [address] [place] [address] Dr. Jerry Samuel PTTon 02-12-2022 aPTT Coag (Bld) [Time] 27.8 s Normal 22.3-36.2 [facility] Comment on above: Performed By: #### N BOX #### [facility] [address] [place] [address] Dr. Jerry Samuel TSHon 02-12-2022 TSH 1.741 uIU/mL Normal 0.358-3.740 [facility] Comment on above: Performed By: #### T SH #### [facility] [address] [place] [address] Dr. Jerry Samuel Outside Recordson 11-20-2021 Outside Records [id number] TIFF Normal [facility] Outside Recordson 11-16-2021 Outside Records [id number]#1.00OT GTIFF Normal [facility] HCG,Urineon 02-22-2021 Beta HCG ( test) Ql (U) Negative Normal [facility] Comment on above: Result Comment: PERF ORMED BY: [place] [address] PATHOLOGIST MANAGER TRANSITION PRIYA WHITE M.D. Performed By: #### U HCG #### [place] [id number] [facility] 02-22-2021 L ---- Specimen: [id number] Received: 02/23/21 Status: DRE [place] Num: [id number] Spec Type: Surgical Subm Dr: Edith Cagle Jr, Tissues: A Duodenum - Biopsy (DUODENUM BX) B Stomach - Biopsy/Polyp (ANTRUM BX) C Colon Biopsy (RANDOM COLON) Procedures: HE Stain/6, Gross/Micro L4/3 Patient Age/Sex Location Account Attending Physician Will Shay Jose Luis [id number] Edith Cagle Jr, DO SPEC NUM: [id number] RECD: 02/23/21 STATUS: DRE ELIZABETH NUM: [id number] CASIMIRO: 02/22/21- DR: Edith Cagle Jr, ENTERED: 02/23/[address]: ANITA TYPE: Surgical DEPT: S ENTERED BY: [id number] RECV BY: [id number] ORDERED: HE Stain/6, Gross/Micro L4/3 ORDERED: HE [...] in one cassette labeled B1. (SM/YJ) Specimen: [id number] Received: 02/23/21 Status: DRE Elizabeth Num: [id number] Spec Type: Surgical Subm Dr: Edith Cagle Jr, Tissues: A Duodenum - Biopsy (DUODENUM BX) B Stomach - Biopsy/Polyp (ANTRUM BX) C Colon Biopsy (RANDOM COLON) Procedures: HE Stain/6, Gross/Micro L4/3 Patient: Will Shay [id number] (Continued) Specimen: [id number] Received: 02/23/21 (Continued) Gross Description (Continued) Signed (signature on file) Gail Crockett MD 02/26/21 1601 Specimen: [id number] Received: 02/23/21 Status: DRE Elizabeth Num: [id number] Spec Type: Surgical Subm Dr: Edith Cagle Jr, DO Tissues: A Duodenum - Biopsy (DUODENUM BX) B Stomach - Biopsy/Polyp (ANTRUM BX) C Colon Biopsy (RANDOM COLON) Procedures: HE Stain/6, Gross/Micro L4/3 Patient: Will Shay [id number] (Continued) Specimen: [id number] Received: 02/23/21 (Continued) Gross Description (Continued) C. [...] characteristics were determined by the Laboratory of [facility]. Immunohistochemistry assays have not been validated on decalcified tissue. Results should be interpreted with caution given the possibility of false negative results on decalcified specimens. They have not been cleared by the [place] Food and Drug Administration. The FDA has determined that such clearance or approval is not necessary. CPT Codes 20060?3, 82736 (more content not included)... Normal [facility] SARS-CoV-2 (COVID-19) RNA ELINOR+probe Ql (Unsp spec) Negative Normal Negative [facility] Comment on above: Order Comment: Healt hcare Worker?: N Result Comment: Testing for SARS-CoV-2 by RT-PCR This test was developed and its performance characteristics determined by [employer] ([id number]) and validated at the [facility]. This test has not been FDA [...] or revoked sooner. PERFORMED BY: [facility] [place] [address] PATHOLOGIST MANAGER TRANSITION PRIYA WHITE M.D. Performed By: #### C OVID 19 [facility] #### [address] Vital Signs Date Time Vital Sign Value Performing Clinician Facility 07-05-2024 15:29-0400 Body mass index (BMI) [Ratio] 28.55 kg/m2 Eddie Nova DO Work Phone: [facility] 07-05-2024 15:29-0400 Body weight 85.19 kg Eddie Nova DO Work Phone: [facility] 07-05-2024 15:29-0400 Diastolic blood pressure 78 mm[Hg] Eddie Nova DO Work Phone: [facility] 07-05-2024 15:29-0400 Systolic blood pressure 118 mm[Hg] Eddie Nova DO Work Phone: [facility] 06-07-2024 15:03-0500 Body mass index (BMI) [Ratio] 28.86 kg/m2 Eddei Nova DO Work Phone: [facility] 06-07-2024 15:03-0500 Body weight 86.09 kg Eddie Nova DO Work Phone: [facility] 06-07-2024 15:03-0500 Diastolic blood pressure 70 mm[Hg] Eddie Nova DO Work Phone: [facility] 06-07-2024 15:03-0500 Systolic blood pressure 112 mm[Hg] Eddie Nova DO Work Phone: [facility] 05-24-2024 14:28-0500 Body mass index (BMI) [Ratio] 29.32 kg/m2 Eddie Nova DO Work Phone: [facility] 05-24-2024 14:28-0500 Body weight 87.45 kg Eddie Nova DO Work Phone: [facility] 05-24-2024 14:28-0500 Diastolic blood pressure 70 mm[Hg] Eddie Nova DO Work Phone: [facility] 05-24-2024 14:28-0500 Systolic blood pressure 120 mm[Hg] Eddie Nova DO Work Phone: [facility] 05-11-2024 13:15-0500 Body mass index (BMI) [Ratio] 29.19 kg/m2 Kirsty Sherron PA Work Phone: [facility] 05-11-2024 13:15-0500 Body weight 87.09 kg Kirsty Julian PA Work Phone: [facility] 05-11-2024 13:15-0500 Diastolic blood pressure 60 mm[Hg] Kirsty Sherron PA Work Phone: [facility] 05-11-2024 13:15-0500 Systolic blood pressure 110 mm[Hg] Kirsty Julian PA Work Phone: [facility] 04-27-2024 12:18-0500 Body mass index (BMI) [Ratio] 29.8 kg/m2 Eddie Nova DO Work Phone: [facility] 04-27-2024 12:18-0500 Body weight 88.91 kg Eddie Nova DO Work Phone: [facility] 04-27-2024 12:18-0500 Diastolic blood pressure 62 mm[Hg] Eddie Nova DO Work Phone: [facility] 04-27-2024 12:18-0500 Systolic blood pressure 106 mm[Hg] Eddie Nova DO Work Phone: [facility] 04-05-2024 13:24-0500 Body mass index (BMI) [Ratio] 30.38 kg/m2 Kirsty Sherron PA Work Phone: [facility] 04-05-2024 13:24-0500 Body weight 90.63 kg Kirsty Julian PA Work Phone: [facility] 04-05-2024 13:24-0500 Diastolic blood pressure 64 mm[Hg] Kirsty Sherron PA Work Phone: [facility] 04-05-2024 13:24-0500 Systolic blood pressure 104 mm[Hg] Kirsty RAHMAN Work Phone: [facility] 03-08-2024 16:52-0500 Body mass index (BMI) [Ratio] 30.62 kg/m2 Eddie Nova DO Work Phone: [facility] 03-08-2024 16:52-0500 Body weight 91.35 kg Eddie Nova DO Work Phone: [facility] 03-08-2024 16:52-0500 Diastolic blood pressure 74 mm[Hg] Eddie Nova DO Work Phone: [facility] 03-08-2024 16:52-0500 Systolic blood pressure 116 mm[Hg] Eddie Nova DO Work Phone: [facility] 02-09-2024 16:03-0500 Body mass index (BMI) [Ratio] 30.11 kg/m2 Eddie Nova DO Work Phone: [facility] 02-09-2024 16:03-0500 Body weight 89.81 kg Eddie Nova DO Work Phone: [facility] 02-09-2024 16:03-0500 Diastolic blood pressure 70 mm[Hg] Eddie Nova DO Work Phone: [facility] 02-09-2024 16:03-0500 Systolic blood pressure 118 mm[Hg] Eddie Nova DO Work Phone: [facility] 01-07-2024 15:50-0400 Body mass index (BMI) [Ratio] 29.97 kg/m2 Eddie Nova DO Work Phone: [facility] 01-07-2024 15:50-0400 Body weight 89.41 kg Eddie Nova DO Work Phone: [facility] 01-07-2024 15:50-0400 Diastolic blood pressure 72 mm[Hg] Eddie Nova DO Work Phone: [facility] 01-07-2024 15:50-0400 Systolic blood pressure 106 mm[Hg] Eddie Nova DO Work Phone: [facility] 12-17-2023 11:17-0400 Body mass index (BMI) [Ratio] 30.33 kg/m2 Kirsty Siu PA Work Phone: [facility] 12-17-2023 11:17-0400 Body weight 90.49 kg Kirsty Siu PA Work Phone: [facility] 12-17-2023 11:17-0400 Diastolic blood pressure 70 mm[Hg] Kirsty Siu PA Work Phone: [facility] 12-17-2023 11:17-0400 Systolic blood pressure 104 mm[Hg] Kirsty iSu PA Work Phone: [facility] 12-12-2023 09:34-0400 Body mass index (BMI) [Ratio] 30.41 kg/m2 [facility] Nurse [facility] 12-12-2023 09:34-0400 Body weight 90.72 kg Noms Nurse [facility] 12-12-2023 09:34-0400 Diastolic blood pressure 80 mm[Hg] [facility] Nurse [facility] 12-12-2023 09:34-0400 Systolic blood pressure 120 mm[Hg] [facility] 03-26-2023 13:45-0500 Body height 164.47 cm Ben Rose Other [employer] Other 03-26-2023 13:45-0500 Body mass index (BMI) [Ratio] 29.6 kg/m2 Ben Rose Other [employer] [facility] Other 03-26-2023 13:45-0500 Body weight 80.06 kg Ben Rose Other [employer] [facility] Other 03-26-2023 13:45-0500 Diastolic blood pressure 74 mm[Hg] Ben Rose Other [employer] [facility] Other 03-26-2023 13:45-0500 Systolic blood pressure 120 mm[Hg] Ben Rose Other [employer] Other 06-14-2022 17:07-0500 Body weight 79.[address] EDDIE BHATT . [facility] Comment on above: Performed By: #### RPRQ #### [facility] [address] [place] [address] Dr. Jerry Samuel 03-08-2022 11:15-0500 Body height 164.47 cm Ben Rose Other [employer] Other 03-08-2022 11:15-0500 Body mass index (BMI) [Ratio] 29.01 kg/m2 Ben Rose Other [facility] [employer] [facility] Other 03-08-2022 11:15-0500 Body weight 78.47 kg Ben Rose Other [facility] [employer] [facility] Other 03-08-2022 11:15-0500 Diastolic blood pressure 73 mm[Hg] Ben Rose Other [employer] [facility] Other 03-08-2022 11:15-0500 Systolic blood pressure 113 mm[Hg] Ben Rose Other [employer] Other Encounters Encounter Date Encounter Type Care Provider Facility Start: 07-05-2024 End: 07-05-2024 Postop follow up visit related to original px Eddie Bhatt DO Work Phone: [facility] Comment on above: S/P ; Anxiety Start: 06-29-2024 End: 06-29-2024 Clinisync Result Encounter Eddie Bhatt DO Work Phone: [facility] Unsolicited Start: 06-29-2024 End: 06-29-2024 Clinisync Result Encounter Eddie Nova DO Work Phone: [facility] Unsolicited Start: 06-28-2024 End: 06-28-2024 ambulatory EDDIE NOVA [...] Start: 05-11-2024 End: 05-11-2024 flow sheet Kirsty RHAMAN Work Phone: [facility] Comment on [...] 04-15-2024 End: 04-20-2024 Telephone encounter Alana Mcclendon CLAIMS CUSTOMER SERVICE REPRESENTATIVE Work Phone: [facility] Start: 04-10-2024 [...] Available Start: 03-08-2024 End: 03-08-2024 ambulatory EDDIE ALTAMIRANOO Not Available Start: 03-08-2024 End: 03-08-2024 flow [...] encounter procedure Eddie Nova DO Work Phone: [facility] Start: 02-09-2024 End: 02-09-2024 flow sheet Eddie [...] Start: 12-17-2023 End: 12-17-2023 flow sheet Kirsty Siu PA Work Phone: [facility] Comment on above: First trimester preg baldev Start: 12-17-2023 End: 12-17-2023 ambulatory KIRSTY SIU Not Available Start: 12-12-2023 End: 12-12-2023 ambulatory [facility] Nova Nurse [facility] Comment on above: GA: 8w4d Start: 03-26-2023 End: 03-26-2023 ambulatory Ben Rose Other [facility] Other Start: 03-26-2023 Patient encounter procedure Ben Rose [facility] Start: 01-24-2023 End: 01-24-2023 ambulatory Ben Rose Other [facility] Other Start: 01-24-2023 Telephone encounter Ben Rose [...] Facility:[facility] Start: 04-04-2022 End: 04-05-2022 ambulatory ANGELES NICOLE Facility:[facility] Start: 03-08-2022 End: 03-08-2022 ambulatory Ben Rose Other [facility] Other Start: 03-08-2022 Patient encounter procedure Ben Rose [facility] Start: 03-07-2022 End: 03-08-[address] EDDIE BHATT . Facility: Start: 03-05-2022 End: 03-06-2022 ambulatory ANGELES MIKAEL Facility: Start: 02-13-2022 End: 02-14-2022 ambulatory ANGELES MIKAEL Facility:[facility] Start: 02-12-2022 End: 02-12-2022 ambulatory ANGELES MIKAEL Facility:[facility] Start: 02-12-2022 End: 02-13-2022 ambulatory ANGELES MIKAEL Facility:[facility] Start: 11-12-2021 End: 11-20-2021 ambulatory ANGELES MIKAEL Facility: Start: 11-06-2021 End: 11-06-2021 ambulatory Angeles A Mikael EXHIBITION SPECIALIST-C Facility:[facility] Start: 11-05-2021 End: 11-06-2021 ambulatory Angeles A Mikael EXHIBITION SPECIALIST-C Facility:[facility] IC Procedures Date Procedure Procedure Detail Performing Clinician Start: 07-05-2024 Urnls dip stick/tabl et rgnt non-auto w/o micrscp Eddie Nova DO Work Phone: Start: 06-29-2024 TB UA (CLEAN/CATCH) ANALYTICAL DATA MINER/MICRO IF IND. Eddie Nova DO Work Phone: Start: 06-21-2024 ALL MISCELLANEOUS TEST Kirsty RAHMAN Work Phone: Start: 06-07-2024 Urnls dip stick/tabl [...] t hin layer prep mnl screen Eddie Nova DO Work Phone: H/O: section S/P Eddie Nova DO Work Phone: Plan of Treatment Date Care Activity Detail Author Start: 08-09-2024 End: 08-09-2024 ambulatory 08/09/2024 2:30 PM EDT Visit [facility] [address] [place] [address] Kirsty Siu PA [address] [place] [address] [facility] Start: 07-05-2024 End: 07-05-2024 Patient encounter procedure 07/05/2024 3:00 PM EDT Routine [facility] [address] [place] [id number] Eddie Bhatt, DO [address] [place] [address] [facility] Start: 06-21-2024 End: 06-21-2024 Patient encounter procedure 06/21/2024 1:50 PM EDT Routine [facility] [address] [place] [address] Kirsty Siu PA [address] [facility] [place] [address] [facility] Start: 06-07-2024 End: 06-07-2024 Patient encounter procedure 06/07/2024 2:40 PM EST Routine [facility] [address] [place] [id number] Eddie Bhatt, DO [address] [place] [address] [facility] Start: 05-24-2024 End: 05-24-2024 Patient encounter procedure 05/24/2024 2:40 PM EST Routine [facility] [address] [place] [id number] Eddie Bhatt, DO [address] [place] [address] [facility] Start: 05-24-2024 End: 05-24-2024 Professional / ancillary services management 05/24/2024 2:00 PM EST Ancillary Procedure [facility] [address] [place] [id number] [facility] Start: 05-11-2024 End: 05-11-2025 US for US OB follow up transabdominal approach Imaging Routine size inconsistent with dates Expected: 05/11/2024, Expires: 05/11/2025 [facility] Work Phone: Comment on above: Expected: 05/11/2024 , Expires: 05/11/2025 Start: 05-11-2024 End: 05-11-2024 Patient encounter procedure 05/11/2024 1:00 PM EST Routine [facility] [address] [place] [phone] Eddie Bhatt, DO [address] [place] [address] [facility] Start: 04-27-2024 End: 04-27-2024 Patient encounter procedure 04/27/2024 11:20 AM EST Routine [facility] [address] [place] [address] Eddie Bhatt, DO [address] [place] [address] [facility] Start: 04-05-2024 End: 04-05-2025 CBC panel - Blood by Automated count CBC Lab Routine 25 weeks gestation of Second trimester Diabetes mellitus screening Expected: 04/05/2024 (Approximate), Expires: 04/05/2025 [facility] Work Phone: Comment on above: Expected: 04/05/2024 [...] PM EST Routine [facility] [address] [facility] [place] [address] Eddie Bhatt, [address] [facility] [place] [address] [facility] Start: 03-01-2024 End: 03-01-2024 Professional / ancillary services management 03/01/2024 1:30 PM EST Ancillary Procedure [facility] [address] [facility] [place] [phone] [facility] Start: 02-09-2024 End: 02-09-2024 [...] procedure 12/17/2023 11:00 AM EDT Office Visit [facility] [address] [facility] [place] [address] Kirsty Siu PA [address] [facility] [place] [address] Arrived [facility] Comment on above: Arrived Start: 12-12-2023 End: 12-11-2024 ABO/Rh ABO/Rh Lab Routine Missed menses Expected: 12/12/2023 (Approximate), Expires: 12/11/2024 [facility] Comment on above: Expected: 12/12/2023 (Approximate), Expires: 12/11/2024 Start: 12-12-2023 End: 12-11-2024 Blood type and Indirect antibody screen panel - Blood Type and screen Lab Routine Missed menses Expected: 12/12/2023 (Approximate), Expires: 12/11/2024 [facility] Work Phone: Comment on above: Expected: 12/12/2023 (Approximate), Expires: 12/11/2024 Start: 12-12-2023 End: 12-11-2024 US Pelvis transvaginal US OB transvaginal Imaging Routine Missed menses Expected: 12/12/2023 (Approximate), Expires: 12/11/2024 [facility] Comment on above: Expected: 12/12/2023 (Approximate), Expires: 12/11/2024 Bacteria identified in Urine by Culture Urine culture Microbiology Routine Missed menses Ordered: 12/12/2023 [facility] Comment on above: Ordered: 12/12/2023 CBC W Auto Different ial panel - Blood CBC and differential Lab Routine Nausea and vomiting during Dizziness Ordered: 01/07/2024 [facility] Work Phone: Comment on above: Ordered: 01/07/2024 CBC W Auto Different ial panel - Blood CBC and differential Lab Routine Missed menses Ordered: 12/12/2023 [facility] Comment on above: Ordered: 12/12/2023 CHLAMYDIA TRACHOMATI S (GENITO/STI) CHLAMYDIA TRACHOMATIS (GENITO/STI) Lab Routine Exposure to STD Ordered: 02/09/2024 [facility] Comment on above: Ordered: 02/09/2024 Hemoglobin A1c/Hemoglobin.total in Blood Hemoglobin A1c Lab Routine Missed menses Ordered: 12/12/2023 [facility] Comment on above: Ordered: 12/12/2023 Hepatitis B virus surface Ag [Presence] in Serum or Plasma by Immunoassay Hepatitis B surface antigen Lab Routine Missed menses Ordered: 12/12/2023 [facility] Comment on above: Ordered: 12/12/2023 Hepatitis C virus Ab [Presence] in Serum or Plasma by Immunoassay Hepatitis C antibody Lab Routine Missed menses Ordered: 12/12/2023 [facility] Comment on above: Ordered: 12/12/2023 HIV-1/HIV-2 antigen/antibody combination immunoassay HIV-1 and HIV-2 antibodies Lab Routine Missed menses Ordered: 12/12/2023 [facility] Comment on above: Ordered: 12/12/2023 Neisseria gonorrhoea e DNA [Presence] in Unspecified specimen by ELINOR with probe detection Neisseria gonorrhea DNA probe, direct Lab Routine Exposure to STD Ordered: 02/09/2024 [facility] Comment on above: Ordered: 02/09/2024 Reagin Ab [Presence] in Serum by RPR RPR Lab Routine Missed menses Ordered: 12/12/2023 [facility] Comment on above: Ordered: 12/12/2023 Rubella antibody, IgG Rubella an tibody, IgG Lab Routine Missed menses Ordered: 12/12/2023 [facility] Comment on above: Ordered: 12/12/2023 SURESWAB(R) ADVANCED VAGINITIS PLUS, TMA SURESWAB(R) ADVANCED VAGINITIS PLUS, TMA Pathology and Cytology Routine Exposure to STD Ordered: 02/09/2024 [facility] Work Phone: Comment on above: Ordered: 02/09/2024 Immunizations Immunization Date Immunization Notes Care Provider Michael albright 11-08-2014 human papilloma viru s vaccine, quadrivalent Ben Rose Other [employer] [facility] Other Payers Date Payer Category Payer Blue Cross Blue Shield [id number] [id number] 2022 Unknown BCBS BCBS [id number] 2022-Present [phone] [address] [place] [address] [id number]. [id number] 2022 Unknown [id number] 2021 Unknown [id number] 1996 Unknown [id number] 2.16.840.1.368869.3.579.2.718 1996 Unknown [id number] 2.16.840.1.392347.3.579.2.718 1996 Unknown [id number] 2.16.840.1.835789.3.579.2.593 1996 Unknown [id number] 2.16.840.1.183947.3.579.2.593 1996 Unknown [id number] 2.16.840.1.398972.3.579.2.593 1996 Unknown [id number] 2.16.840.1.272768.3.579.2.593 1996 Unknown [id number] 2.16.840.1.037139.3.579.2.593 1996 Unknown [id number] 2.16.840.1.002226.3.579.2.593 1996 Unknown [id number] 2.16.840.1.445537.3.579.2.593 1996 Unknown [id number] 2.16.840.1.970928.3.579.2.593 1996 Unknown [id number] 2.16.840.1.711001.3.579.2.593 1996 Unknown [id number] 2.16.840.1.191715.3.579.2.593 1996 Unknown [id number] 2.16.840.1.808449.3.579.2.593 1996 Unknown [id number] 2.16.840.1.175913.3.579.2.593 1996 Unknown [id number] 2.16.840.1.527710.3.579.2.593 1996 Unknown [id number] 2.16.840.1.519731.3.579.2.59 1996 Unknown [id number] 2.16.840.1.944836.3.579.2.59 1996 Unknown [id number] 2.16.840.1.629236.3.579.2.1258 1996 Unknown [id number] 2.16.840.1.045716.3.579.2.1258 1996 Unknown [id number] 2.16840.1.180410.3.579.2.1258 1996 Unknown [id number] 2.16.840.1.199211.3.579.2.1258 1996 Unknown [id number] 2.16.840.1.270485.3.579.2.1258 1996 Unknown [id number] 2.16.840.1.157769.3.579.2.1258 1996 Unknown [id number] 2.16.840.1.711556.3.579.2.1258 1996 Unknown [id number] 2.16.840.1.692742.3.579.2.1258 1996 Unknown [id number] 2.16.840.1.151672.3.579.2.1258 1996 Unknown [id number] 2.16.840.1.066823.3.579.2.1258 1996 Unknown [id number] 2.16.840.1.385463.3.579.2.9 1996 Unknown [id number] 2.16.840.1.697743.3.579.2.1259 1996 Unknown [id number] 2.16.840.1.616317.3.579.2.1259 1959 Self-pay 1959 Unknown [id number] 2.16. 840.1.884483.19 1959 Unknown [id number] 2.16.840.1.509609.19 1959 Unknown [id number] 1959 Unknown [id number] Unknown [id number] 2.16.840.1.601250.3.579.2.593 Social History Date Type Detail Facility Unknown if ever smoked [employer] [facility] Other Start: 03-27-2023 End: 12-12-2023 Sex Assigned At [employer] Other Start: 09-17-2022 Tobacco smoking stat [facility] Never smoked tobacco [facility] Start: 09-17-2022 Tobacco use and exposure Smokeless tobacco non-user [facility] Start: 12-17-2023 End: 07-05-2024 Alcoholic beverage intake Lifetime non-drinker (finding) [facility] Start: 03-27-2023 End: 12-12-2023 History of Social function [facility] Start: 10-27-2023 [facility] Start: 1995 Sex assigned at Not on file [facility] Clinical Notes 03-08-2022 to 07-05-2024 Peri Peterson NP - 07/05/2024 3:00 PM Sammie Leyva LPN - 06/07/2024 2:40 PM Rory Leyva LPN - 05/24/2024 2:40 PM JOSIAH Acosta - 05/11/2024 1:00 PM EST Note Date & Type Note Facility 07-05-2024 History of Presen t illness Narrative Reason for Appointment: Patient ID: Will Shay is a 28 y.o. female who presents for s/p c- section Patient presents today for 1 Week Post Op Follow Up appointment. MEDICATIONS Current Outpatient Medications Medication Instructions pantoprazole (PROTONIX) 40 mg, Daily before breakfast ALLERGIES Allergies Allergen Reactions Buspirone Minocycline Hives Penicillins Rash PROBLEMS Active Ambulatory Problems Diagnosis Date Noted Acid reflux 09/13/2022 Acne 09/13/2022 Acquired scoliosis 09/13/2022 Acute upper respiratory infection 09/13/2022 Adjustment disorder with depressed mood ([facility]/HCC) 09/13/2022 Allergic rhinitis 09/13/2022 Anxiety 09/13/2022 Arthralgia of multiple joints 09/13/2022 Dysmenorrhea 09/13/2022 Family history of thyroid disease 09/13/2022 Hematochezia 09/13/2022 Low back pain 09/13/2022 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 Subcutaneous nodule 09/13/2022 Tinea pedis 09/13/2022 25 weeks gestation of 04/05/2024 Second trimester 04/05/2024 Resolved Ambulatory Problems Diagnosis Date Noted No Resolved Ambulatory Problems Past Medical History: Diagnosis Date Depression (CMS/HCC) HISTORY PAST MEDICAL HISTORY SOCIAL HISTORY Past Medical History: Diagnosis Date Anxiety Depression ([facility]) Social History Tobacco Use Smoking status: Never Smokeless tobacco: Never Substance Use Topics Alcohol use: Never Drug use: Never FAMILY HISTORY Family History Problem Relation Name Age of Onset Mental illness Mother Melanoma Neg Hx SURGICAL HISTORY Past Surgical History: Procedure Laterality Date SECTION, LOW TRANSVERSE 11/08/2022 SECTION, LOW TRANSVERSE 06/29/2024 MOUTH SURGERY REVIEW OF SYSTEMS Review of Systems: Review of Systems Constitutional: Negative. HENT: Negative. Eyes: Negative. Respiratory: Negative. Cardiovascular: Negative. Gastrointestinal: Negative. Genitourinary: Negative. Musculoskeletal: Negative. Skin: Negative. Neurological: Negative. All other systems reviewed and are negative. Hematological: Negative. Endocrine: Negative. Allergic/Immunologic: Negative. OBJECTIVE Objective: Physical Exam Constitutional: Appearance: Normal appearance. She is well-developed. HENT: Right Ear: External ear normal. Cardiovascular: Rate and Rhythm: Normal rate and [...] Skin: General: Skin is warm and dry. Comments: Low transverse incision with wound edges that are well approximated without drainage, discharge or surrounding erythema no evidence of secondary infection Psychiatric: Mood and Affect: Mood normal. Behavior: Behavior normal. Vitals and nursing note reviewed. Exam conducted with a business strategist present. Vitals: Estimated body mass index is 28.55 kg/m as calculated from the following: Height as of 12/25/22: 5' 8 . Weight as of this encounter: 187 lb 12.8 oz. BP: 118/78 Patient's last menstrual period was 10/13/2023. ASSESSMENT & PLAN ICD-10-CM 1. S/P Z98.891 POCT urinalysis dipstick manually resulted 2. Anxiety F41.9 Patient presents today for a one week postop section check. Patient is doing well with minor complaints of pain. Incision has been noted as healing well with no signs and symptoms of infection. Patient reports increased anxiety and we will increase dose of Celexa. Follow Up: Patient is to return in 5 weeks for 6 week evaluation. 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 Exam conducted with a business strategist present. 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 Subcutaneous nodule 09/13/2022 Tinea pedis 09/13/2022 25 weeks gestation of 04/05/2024 Second trimester 04/05/2024 Resolved Ambulatory Problems Diagnosis Date Noted No Resolved Ambulatory Problems Past Medical History: Diagnosis Date Depression ([facility]) HISTORY PAST MEDICAL HISTORY SOCIAL HISTORY Past Medical History: Diagnosis Date Anxiety Depression ([facility]) Social History Tobacco Use Smoking status: [...] Eddie Bhatt DO documented in this encounter [facility] 05-11-2024 History of Presen t illness Narrative [...] infection 09/13/2022 Adjustment disorder with depressed mood ([facility]/HCC) 09/13/2022 Allergic rhinitis 09/13/2022 Anxiety 09/13/2022 Arthralgia of multiple joints 09/13/2022 Dysmenorrhea 09/13/2022 Family history of thyroid disease 09/13/2022 Hematochezia 09/13/2022 Low back pain 09/13/2022 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 Subcutaneous nodule 09/13/2022 Tinea pedis 09/13/2022 25 weeks gestation of 04/05/2024 Second trimester 04/05/2024 Resolved Ambulatory Problems Diagnosis Date Noted No Resolved Ambulatory Problems Past Medical History: Diagnosis Date Depression ([facility]/HCC) HISTORY PAST MEDICAL HISTORY SOCIAL HISTORY Past Medical History: Diagnosis Date Anxiety Depression ([facility]) Social History Tobacco Use Smoking status: [...] of: JOSIAH Schilling documented in this encounter [facility] 04-27-2024 History of Presen t illness Narrative [...] infection 09/13/2022 Adjustment disorder with depressed mood ([facility]) 09/13/2022 Allergic rhinitis 09/13/2022 Anxiety 09/13/2022 Arthralgia of multiple joints 09/13/2022 Dysmenorrhea 09/13/2022 Family history of thyroid disease 09/13/2022 Hematochezia 09/13/2022 Low back pain 09/13/2022 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 Exam conducted with a business strategist present. Vitals: Estimated body mass index is [...] Eddie Bhatt DO documented in this encounter [facility] 04-15-2024 Telephone encount er Note Madhuri, my [...] do not know, but my phone numbers [phone], thank you, bymatilda. I called pt to let her know that I would talk to Dr. Bhatt and see what he recommends. [facility] 04-15-2024 Miscellaneous Notes Formattin g of this [...] do not know, but my phone numbers [phone], thank you, bye. I called pt to let her know that I would talk to Dr. Bhatt and see what he recommends. 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 Subcutaneous nodule 09/13/2022 Tinea pedis 09/13/2022 Resolved Ambulatory Problems Diagnosis Date Noted No Resolved Ambulatory Problems Past Medical History: Diagnosis Date Depression ([facility]) HISTORY PAST MEDICAL HISTORY SOCIAL HISTORY Past Medical History: Diagnosis Date Anxiety Depression ([facility]) Social History Tobacco Use Smoking status: [...] of: JOSIAH Schilling documented in this encounter [facility] 03-08-2024 History of Presen t illness Narrative [...] infection 09/13/2022 Adjustment disorder with depressed mood ([facility]/HCC) 09/13/2022 Allergic rhinitis 09/13/2022 Anxiety 09/13/2022 Arthralgia of multiple joints 09/13/2022 Dysmenorrhea 09/13/2022 Family history of thyroid disease 09/13/2022 Hematochezia 09/13/2022 Low back pain 09/13/2022 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[facility]/HCC) 09/13/2022 Subcutaneous nodule 09/13/2022 Tinea pedis 09/13/2022 Resolved Ambulatory Problems Diagnosis Date Noted No Resolved Ambulatory Problems Past Medical History: Diagnosis Date Depression ([facility]/HCC) HISTORY PAST MEDICAL HISTORY SOCIAL HISTORY Past Medical History: Diagnosis Date Anxiety Depression ([facility]) Social History Tobacco Use Smoking status: [...] nursing note reviewed. Exam conducted with a business strategist present. Vitals: Estimated body mass index is [...] Eddie Bhatt DO documented in this encounter [facility] 02-09-2024 History of Presen t illness Narrative [...] nursing note reviewed. Exam conducted with a business strategist present. 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 Exam conducted with a business strategist present. Vitals: Estimated body mass index is [...] or undercooked meat, and stay away from [facility]. Patient has been consulted regarding any further do's and don'ts of . Patient voiced understanding and all questions and concerns were answered. Orders Placed This Encounter Procedures Urine dip Follow Up: Patient is to return in 4 weeks for routine OB appointment. 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 Subcutaneous nodule 09/13/2022 Tinea pedis 09/13/2022 Resolved Ambulatory Problems Diagnosis Date Noted No Resolved Ambulatory Problems Past Medical History: Diagnosis Date Depression ([facility]) HISTORY PAST MEDICAL HISTORY SOCIAL HISTORY Past Medical History: Diagnosis Date Anxiety Depression ([facility]) Social History Tobacco Use Smoking status: [...] of: JOSIAH Schilling documented in this encounter [facility] 12-12-2023 History of Presen t illness Narrative [...] infection 09/13/2022 Adjustment disorder with depressed mood ([facility]/HCC) 09/13/2022 Allergic rhinitis 09/13/2022 Anxiety 09/13/2022 Arthralgia of multiple joints 09/13/2022 Dysmenorrhea 09/13/2022 Family history of thyroid disease 09/13/2022 Hematochezia 09/13/2022 Low back pain 09/13/2022 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 Advised to have both and unity [...] Leah Raman MA documented in this encounter [facility] 03-26-2023 Evaluation note Encounter Date Diagnosis Assessment [...] call office if she has no improvement [employer] [facility] Other 10-20-2023 Evaluation note* Encounter Date Diagnosis Assessment Notes Treatment Notes Treatment Clinical Notes Jan, Epigastric burning sensation (ICD-10 - R10.13) [facility] Other 12-02-2022 Evaluation note* Encounter Date Diagnosis Assessment Notes Treatment Notes Treatment Clinical Notes Mar, Nausea (ICD-10 - R11.0) Mar, Epigastric burning sensation (ICD-10 - R10.13) Mar, Lower abdominal pain (ICD-10 - R10.30) Mar, Bloating (ICD-10 - R14.0) Mar, Functional dyspepsia (ICD-10 - K30) Mar, GERD (gastroesophageal reflux disease) (ICD-10 - K21.9) CONTINUE PANTOPRAZOLE 40 MG DAILY CONTINUE LEVSIN NEEDED RTO 1 YR [facility] Other Evaluation note* Diagnosis First trimester state, incidental 12 weeks gestation of Nausea and vomiting during Dizziness Dizziness and giddiness Constipation during in first trimester [facility] Second trimester state, incidental 17 [...] [facility] S/P Anxiety Anxiety state, unspecified [facility] - Reported* Type Description Date Medical History scoliosis Medical History hx of mono Surgical History [place] teeth x4 [employer] [facility] Other History general Narrative - Reported* Type Description Date Medical History scoliosis Medical History hx of mono Surgical History [place] teeth x4 Surgical History C section [employer] [facility] Other Summary Purpose Family History No Family History Records FoundNo Family History Records FoundNo Family History Records FoundNo Family History Records Found Advance Directives No Advanced Directives Records FoundNo Advanced Directives Records FoundNo Advanced Directives Records FoundNo Advanced Directives Records Found Additional Source Comments INFORMATION SOURCE (unrecogn ized section and content) DATE CREATED AUTHOR 02/27/2021 [facility] DATE CREATED AUTHOR AUTHOR'S ORGANIZ ATION 07/24/2022 [facility] DATE CREATED AUTHOR AUTHOR'S ORGANIZ ATION 08/08/2022 [facility] DATE CREATED AUTHOR AUTHOR'S LOUIE MCDUFFIE 06/28/2024 [facility] EPIC REASON FOR VISIT (unrecogniz ed section and content) Reason Comments Routine Visit Reason Comments Amenorrhea Reason Comments s/p c- section FOR RECORDS PERTAINING TO PATIENTS WHO ARE [...] BE BASED ON THE PRIMARY CLINICAL RECORDS. [facility] [employer] provides no warranty or guarantee of the accuracy or completeness of information in this document.
--- OUTSIDE RECORDS SUMMARY | 2024-07-07 08:46 | XMS_ITS | CCD ---
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 Name Role Phone Ben Rose Unavailable Mikael ATHLETE MANAGER-C, Angeles A Admitting Unavailable Mikael ATHLETE MANAGER-C, Angeles A Attending Unavailable Mikael ATHLETE MANAGER-C, Angeles A Primary Care Unavailable Mikael ATHLETE MANAGER-C, Angeles A Attending Unavailable Mikael ATHLETE MANAGER-C, Angeles A Primary Care Unavailable NOVA ., [...] DR MORGAN Consulting Unavailable NOVA ., DR MROGAN Attending Unavailable NOVA ., DR MORGAN Admitting [...] Unavailable SHERRON, KIRSTY Attending Unavailable SHERRON, KIRSTY Attending Unavailable NOVA, EDDIE Attending Unavailable NOVA, EDDIE Attending Unavailable NOVA, EDDIE Attending Unavailable SHERRON, KIRSTY Attending Unavailable NOVA, EDDIE Attending Unavailable NOVA, EDDIE Attending Unavailable Allergies Allergy Classification Reported Allergen(s) Allergy Type Date of Onset Reaction(s) Facility (3 sources) Penicillin G Drug Allergy Unknown [facility] Other (1 source) busPIRone; Translations: [buspirone hcl] Drug Allergy [facility] Repository (1 source) Coconut extract; Translations: [coconut] Drug Allergy [facility] Repository (20 sources) Penicillins; Translations: [penicillins] Propensity to adverse reactions to drug (disorder) 3 Rash [facility] Repository (1 source) Amoxicillin Drug Allergy [facility] Repository (1 source) Penicillin Drug Allergy [facility] Repository (20 sources) busPIRone Drug Allergy [...] Discontinued Start: 10-29-2023 take 1 capsule by [facility] once daily esomeprazole (NexIUM) 40 MG [...] mycosis; 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 3 Episodic Other connective tissue disease (1 source) [...] UA Negative Negative - 4(70) +++ mg/dL [facility] Blood, UA Positive Negative - 50 Daniel/mcL [facility] Clarity, UA Clear [facility] Color, UA Yellow [facility] Glucose, UA Negative Negative - 2000(110) ++++ mg/dL [facility] Interpretation and review of laboratory results Abnormal [facility] Ketones, UA Negative Negative - 160(16) ++++ mg/dL [facility] Leukocytes, UA Negative Negative - 500+++ Gavin/mcL [facility] Nitrite, UA Negative Negative - Positive [facility] pH, UA 7 5 - 9 [facility] Protein, UA Negative Negative - 2000(20) ++++ mg/dL [facility] Spec Grav, UA 1.015 1 - 1.03 [facility] Urobilinogen, UA 0.2 0.2 - 12 mg/dL [facility] UA (CLEAN/CATCH) GRE TUTOR/AMBERLY RO IF IND.on 06-29-2024 BILIRUBIN URINE Negative NEGATIVE [facility] BLOOD URINE Negative NEGATIVE [facility] Clarity (U) CLEAR CLEAR [facility] Color (U) LT. YELLOW YELLOW [facility] GLUCOSE URINE UA Negative NEGATIVE mg/dL [facility] Interpretation and review of laboratory results Abnormal [facility] Ketones Ql (U) 40 mg/dL Abnormal NEGATIVE [facility] Leukocyte esterase Test strip Ql (U) Negative NEGATIVE [facility] NITRITE URINE Negative NEGATIVE [facility] pH (U) 6.0 [pH] 5.0 - 9.0 [facility] PROTEIN URINE Negative NEG/TRACE mg/dL [facility] SPECIFIC GRAVITY URINE 1.015 1.005 - 1.025 [facility] URINE MICROSCOPIC INDICATED YES [facility] UROBILINOGEN URINE 0.2 EU/dL 0.2 - 1.0 EU/dL [facility] ALL MISCELLANEOUS TESTon MISCELLANEOUS TEST COMMENT . [facility] Comment on above: Test Ordered: [id number] Strep Gp B Culture+Rflx Strep Gp B Culture+Rflx Positive [A ] CB Reference Range: Negative Centers for Disease Control and Prevention (CDC) and [place] [employer]nec[employer] (ACOG) guidelines [...] at high risk for anaphylaxis. Performed at: [facility] [address] [id number] Scraper Tender: Jose Alejandro Matthews PhD, Phone: [phone] GROUP B STREP [id number] CULTURE, GROUP B STRE[facility]CEPT[facility] (dipstick) panel (U)on 06-07-2024 Bilirubin, UA Negative Negative - 4(70) +++ mg/dL [facility] Blood, UA Negative Negative - 50 Daniel/mcL [facility] Clarity, UA Clear [facility] Color, UA Colorless [facility] Glucose, UA Positive Negative - 2000(110) ++++ mg/dL [facility] Comment on above: 100 Interpretation and review of laboratory results Abnormal [facility] Ketones, UA Negative Negative - 160(16) ++++ mg/dL [facility] Leukocytes, UA Negative Negative - 500+++ Gavin/mcL [facility] Nitrite, UA Negative Negative - Positive [facility] pH, UA 6 5 - 9 [facility] Protein, UA Negative Negative - 2000(20) ++++ mg/dL [facility] Spec Grav, UA 1.005 1 - 1.03 [facility] Urobilinogen, UA 0.2 0.2 - 12 mg/dL [facility] US OB FOLLOW UP TRANSABDOMIN AL APPROACHon [...] 14, 2024 The current estimated weight is 8 grams IMPRESSION: Single, live intrauterine , current [...] UA Negative Negative - 4(70) +++ mg/dL [facility] Blood, UA Positive Negative - 50 Daniel/mcL [facility] Comment on above: TRACE-INTACT Clarity, UA Clear [facility] Color, UA Yellow [facility] Glucose, UA Negative Negative - 1999(110) ++++ mg/dL [facility] Interpretation and review of laboratory results Abnormal [facility] Ketones, UA Negative Negative - 160(16) ++++ mg/dL [facility] Leukocytes, UA Negative Negative - 500+++ Gavin/mcL [facility] Nitrite, UA Negative Negative - Positive [facility] pH, UA 6 5 - 9 [facility] Protein, UA Negative Negative - 2000(20) ++++ mg/dL [facility] Spec Grav, UA 1.005 1 - 1.03 [facility] Urobilinogen, UA 0.2 0.2 - 12 mg/dL [facility] Urinalysis macro (dipstick) panel (U)on 05-11-2024 Bilirubin, UA Negative Negative - 4(70) +++ mg/dL [facility] Blood, UA Negative Negative - 50 Daniel/mcL [facility] Clarity, UA Clear [facility] Color, UA Yellow [facility] Glucose, UA Negative Negative - 1999(110) ++++ mg/dL [facility] Interpretation and review of laboratory results Abnormal [facility] Ketones, UA Negative Negative - 160(16) ++++ mg/dL [facility] Leukocytes, UA Trace Negative - 500+++ Gavin/mcL [facility] Nitrite, UA Negative Negative - Positive [facility] pH, UA 6.5 5 - 9 [facility] Protein, UA Negative Negative - 1999(20) ++++ mg/dL [facility] Spec Grav, UA 1.02 1 - 1.03 [facility] Urobilinogen, UA 0.2 0.2 - 12 mg/dL [facility] Urinalysis macro (dipstick) panel (U)on 04-27-2024 Bilirubin, UA Negative Negative - 4(70) +++ mg/dL [facility] Blood, UA Negative Negative - 50 Daniel/mcL [facility] Clarity, UA Clear [facility] Color, UA Yellow [facility] Glucose, UA Negative Negative - 1999(110) ++++ mg/dL [facility] Interpretation and review of laboratory results Abnormal [facility] Ketones, UA Negative Negative - 160(16) ++++ mg/dL [facility] Leukocytes, UA Trace Negative - 500+++ Gavin/mcL [facility] Nitrite, UA Negative Negative - Positive [facility] pH, UA 7 5 - 9 [facility] Protein, UA Negative Negative - 1999(20) ++++ mg/dL [facility] Spec Grav, UA 1.01 1 - 1.03 [facility] Urobilinogen, UA 0.2 0.2 - 12 mg/dL [facility] ALL CBC WITH AUTO DIFFon BASOPHILS ABSOLUTE AUTO 0 [facility] Basophils/100 WBC (Bld) 0.5 % 0.2 - 2.0 % [facility] Eosinophils/100 WBC (Bld) 0.5 % Low 0.9 - 7.0 % [facility] Erythrocyte distribution width (RBC) [Ratio] 12.9 % 11.0 - 15.0 % [facility] Hematocrit (Bld) [Volume fraction] 33.7 % Low 36.0 - 48.0 % [facility] Hemoglobin (Bld) [Mass/Vol] 10.8 g/dL Low 12.0 - 16.0 g/dL [facility] IMMATURE GRANULOCYTES ABS AUTO 0.04 High [facility] Immature granulocytes/100 WBC (Bld) 0.6 % High 0.0 - 0.5 % [facility] Interpretation and review of laboratory results Abnormal [facility] LYMPHOCYTES ABSOLUTE AUTO 1.3 [facility] Lymphocytes/100 WBC (Bld) 20.2 % Low 20.5 - 60.0 % [facility] MCH (RBC) [Entitic mass] 26.9 pg 26.7 - 34.0 pg [facility] MCHC (RBC) [Mass/Vol] 32 g/dL 29.9 - 35.2 g/dL [facility] MCV (RBC) [Entitic vol] 83.8 fL 81.0 - 99.0 fL [facility] MONOCYTES ABSOLUTE AUTO 0.5 [facility] Monocytes/100 WBC (Bld) 8.6 % 1.7 - 12.0 % [facility] NEUTROPHILS ABSOLUTE AUTO 4.4 [facility] Neutrophils/100 WBC (Bld) 69.6 % 43.0 - 75.0 % [facility] Platelet mean volume (Bld) [Entitic vol] 10.3 fL 9.5 - 13.5 fL [facility] EO # 0 [facility] PLT 200 [facility] RBC 4.02 Low [facility] WBC 6.3 [facility] Urinalysis macro (dipstick) panel (U)on 04-05-2024 Bilirubin, UA Negative Negative - 4(70) +++ mg/dL [facility] Blood, UA Negative Negative - 50 Daniel/mcL [facility] Clarity, UA Clear [facility] Color, UA Yellow [facility] Glucose, UA Negative Negative - 1999(110) ++++ mg/dL [facility] Interpretation and review of laboratory results Normal [facility] Ketones, UA Negative Negative - 160(16) ++++ mg/dL [facility] Leukocytes, UA Negative Negative - 500+++ Gavin/mcL [facility] Nitrite, UA Negative Negative - Positive [facility] pH, UA 5.5 5 - 9 [facility] Protein, UA Negative Negative - 1999(20) ++++ mg/dL [facility] Spec Grav, UA 1.025 1 - 1.03 [facility] Urobilinogen, UA 0.2 0.2 - 12 mg/dL [facility] AFP, SERUM, OPEN SPINA BIFID Aon 02-20-2024 AFP MOM 0.72 . [facility] AFP VALUE 27.2 ng/mL . [facility] COMMENT: Comment . [facility] Comment on above: Tiffanie Petersen , Ph.D., [facility] Director References: Available Upon Request. Multiples Of Median Cutoffs For AFP Elevations Patrick 2.5 Black 2.8 IDD 2.0 Twins 4.5 Abbreviation Definitions IDD - Insulin Dep Diabetes OSBR - Open Spina Bifida Risk For further inquiries contact [facility] at [phone]. This test was developed and its performance characteristics determined by [employer]. It has not been cleared or approved by the Food and Drug Administration. Performed at: [facility] [address] [place] [id number] Scraper Tender: Tor Real [facility], Phone: [phone] GEST. AGE ON COLLECTION DATE 18.3 . weeks [facility] GESTAT. AGE BASED ON LMP . [facility] Comment on above: Recalculations are n ot recommended when gestational dating by LMP and ultrasound are within 10 days. INSULIN DEP DIABETES No . [facility] INTERPRETATION Comment . [facility] Comment on above: Interpretation: Scre en Negative [...] Customer Services to discuss available options. The [place] [employer] recommends amniocentesis be offered to women age 35 and older. [age] [facility] MULTIPLE GESTATION No . [facility] [place] [id number] . [facility] RACE . [facility] RESULTS Report . [facility] TEST RESULTS: Negative . [facility] WEIGHT 198 . lbs [facility] N N LMP [id number] N 1 Y 198 N N N N N White/ [facility] RECURRENT VAGINITIS (HTRX)on 02-11-2024 ATOPOBIUM VAGINAE 0 [facility] ATOPOBIUM VAGINAE Not detected [facility] BVAB 2,3 (BACTERIAL VAGINOSIS ASSOCIATED BACTERIA 2, 3); MOBILUNCUS SPP 0 [facility] BVAB 2,3 (BACTERIAL VAGINOSIS ASSOCIATED BACTERIA 2, 3); MOBILUNCUS SPP Not detected [facility] MARGARET ALBICANS, PARAPSILOSIS, TROPICALIS 0 [facility] MARGARET ALBICANS, PARAPSILOSIS, TROPICALIS Not detected [facility] MARGARET GLABRATA 0 [facility] MARGARET GLABRATA Not detected [facility] MARGARET KRUSEI 0 [facility] MARGARET KRUSEI Not detected [facility] CHLAMYDIA TRACHOMATIS 0 [facility] CHLAMYDIA TRACHOMATIS Not detected [facility] GARDNERELLA VAGINALIS 0 [facility] GARDNERELLA VAGINALIS Not detected [facility] MEGASPHAERA (TYPES 1, 2) 0 [facility] MEGASPHAERA (TYPES 1, 2) Not detected [facility] MYCOPLASMA GENITALIUM 0 [facility] MYCOPLASMA GENITALIUM Not detected [facility] NEISSERIA GONORRHOEAE 0 [facility] NEISSERIA GONORRHOEAE Not detected [facility] TRICHOMONAS VAGINALIS 0 [facility] TRICHOMONAS VAGINALIS Not detected [facility] Urinalysis macro (dipstick) panel (U)on 02-09-2024 Bilirubin, UA Negative Negative - 4(70) +++ mg/dL [facility] Blood, UA Negative Negative - 50 Daniel/mcL [facility] Clarity, UA Clear [facility] Color, UA Yellow [facility] Glucose, UA Negative Negative - 1999(110) ++++ mg/dL [facility] Interpretation and review of laboratory results Normal [facility] Ketones, UA Negative Negative - 160(16) ++++ mg/dL [facility] Leukocytes, UA Negative Negative - 500+++ Gavin/mcL [facility] Nitrite, UA Negative Negative - Positive [facility] pH, UA 5.5 5 - 9 [facility] Protein, UA Negative Negative - 1999(20) ++++ mg/dL [facility] Spec Grav, UA 1.02 1 - 1.03 [facility] Urobilinogen, UA 0.2 0.2 - 12 mg/dL [facility] ALL CBC WITH AUTO DIFFon BASOPHILS ABSOLUTE AUTO 0.0 [facility] Basophils/100 WBC (Bld) 0.1 % Low 0.2 - 2.0 % [facility] Eosinophils/100 WBC (Bld) 1.0 % 0.9 - 7.0 % [facility] Erythrocyte distribution width (RBC) [Ratio] 13.2 % 11.0 - 15.0 % [facility] Hematocrit (Bld) [Volume fraction] 36.4 % 36.0 - 48.0 % [facility] Hemoglobin (Bld) [Mass/Vol] 11.9 g/dL Low 12.0 - 16.0 g/dL [facility] IMMATURE GRANULOCYTES ABS AUTO 0.01 [facility] Immature granulocytes/100 WBC (Bld) 0.1 % 0.0 - 0.5 % [facility] Interpretation and review of laboratory results Abnormal [facility] LYMPHOCYTES ABSOLUTE AUTO 1.5 [facility] Lymphocytes/100 WBC (Bld) 22.8 % 20.5 - 60.0 % [facility] MCH (RBC) [Entitic mass] 28.1 pg 26.7 - 34.0 pg [facility] MCHC (RBC) [Mass/Vol] 32.7 g/dL 29.9 - 35.2 g/dL [facility] MCV (RBC) [Entitic vol] 86.1 fL 81.0 - 99.0 fL [facility] MONOCYTES ABSOLUTE AUTO 0.4 [facility] Monocytes/100 WBC (Bld) 6.0 % 1.7 - 12.0 % [facility] NEUTROPHILS ABSOLUTE AUTO 4.7 [facility] Neutrophils/100 WBC (Bld) 70.0 % 43.0 - 75.0 % [facility] Platelet mean volume (Bld) [Entitic vol] 10.7 fL 9.5 - 13.5 [facility] PLT 213 [facility] RBC 4.23 [facility] WBC 6.7 [facility] Urinalysis macro (dipstick) panel (U)on 01-07-2024 Bilirubin, UA Negative Negative - 4(70) +++ mg/dL [facility] Blood, UA Negative Negative - 50 Daniel/mcL [facility] Clarity, UA Clear [facility] Color, UA Yellow [facility] Glucose, UA Negative Negative - 2000(110) ++++ mg/dL [facility] Interpretation and review of laboratory results Normal [facility] Ketones, UA Negative Negative - 160(16) ++++ mg/dL [facility] Leukocytes, UA Negative Negative - 500+++ Gavin/mcL [facility] Nitrite, UA Negative Negative - Positive [facility] pH, UA 6.5 5 - 9 [facility] Protein, UA Negative Negative - 2000(20) ++++ mg/dL [facility] Spec Grav, UA 1.020 1 - 1.03 [facility] Urobilinogen, UA 1.0 0.2 - 12 mg/dL [facility] ALL CBC WITH AUTO DIFFon BASOPHILS ABSOLUTE AUTO 0.0 [facility] Basophils/100 WBC (Bld) 0.3 % 0.2 - 2.0 % [facility] Eosinophils/100 WBC (Bld) 0.9 % 0.9 - 7.0 % [facility] Erythrocyte distribution width (RBC) [Ratio] 13.0 % 11.0 - 15.0 % [facility] Hematocrit (Bld) [Volume fraction] 39.1 % 36.0 - 48.0 % [facility] Hemoglobin (Bld) [Mass/Vol] 12.8 g/dL 12.0 - 16.0 g/dL [facility] IMMATURE GRANULOCYTES ABS AUTO 0.02 [facility] Immature granulocytes/100 WBC (Bld) 0.3 % 0.0 - 0.5 % [facility] Interpretation and review of laboratory results Abnormal [facility] LYMPHOCYTES ABSOLUTE AUTO 1.6 [facility] Lymphocytes/100 WBC (Bld) 20.4 % Low 20.5 - 60.0 % [facility] MCH (RBC) [Entitic mass] 27.8 pg 26.7 - 34.0 pg [facility] MCHC (RBC) [Mass/Vol] 32.7 g/dL 29.9 - 35.2 g/dL [facility] MCV (RBC) [Entitic vol] 84.8 fL 81.0 - 99.0 fL [facility] MONOCYTES ABSOLUTE AUTO 0.6 [facility] Monocytes/100 WBC (Bld) 7.1 % 1.7 - 12.0 % [facility] NEUTROPHILS ABSOLUTE AUTO 5.5 [facility] Neutrophils/100 WBC (Bld) 71.0 % 43.0 - 75.0 % [facility] Platelet mean volume (Bld) [Entitic vol] 10.2 fL 9.5 - 13.5 fL [facility] EO # 0.1 [facility] PLT 254 [facility] RBC 4.61 [facility] WBC 7.7 [facility] Urinalysis macro (dipstick) panel (U)on 12-17-2023 Bilirubin, UA Negative Negative - 4(70) +++ mg/dL [facility] Blood, UA Negative Negative - 50 Daniel/mcL [facility] Clarity, UA Clear [facility] Color, UA Yellow [facility] Glucose, UA Negative Negative - 1999(110) ++++ mg/dL [facility] Interpretation and review of laboratory results Abnormal [facility] Ketones, UA Positive Negative - 160(16) ++++ mg/dL [facility] Comment on above: 15 Leukocytes, UA Negative Negative - 500+++ Gavin/mcL [facility] Nitrite, UA Negative Negative - Positive [facility] pH, UA 6.5 5 - 9 [facility] Protein, UA Negative Negative - 1999(20) ++++ mg/dL [facility] Spec Grav, UA 1.030 1 - 1.03 [facility] Urobilinogen, UA 1.0 0.2 - 12 mg/dL [facility] HCG ( test) Ql (U)o n 12-12-2023 Interpretation and review of laboratory results Abnormal [facility] Preg Test, Ur Positive [facility] Urinalysis macro (dipstick) panel (U)on 12-12-2023 Bilirubin, UA Positive Negative - 4(70) +++ mg/dL [facility] Comment on above: small Blood, UA Negative Negative - 50 Daniel/mcL [facility] Clarity, UA Clear [facility] Color, UA Yellow [facility] Glucose, UA Negative Negative - 2000(110) ++++ mg/dL [facility] Interpretation and review of laboratory results Abnormal [facility] Ketones, UA Positive Negative - 160(16) ++++ mg/dL [facility] Comment on above: trace Leukocytes, UA Negative Negative - 500+++ Gavin/mcL [facility] Nitrite, UA Negative Negative - Positive [facility] pH, UA 6.0 5 - 9 [facility] Protein, UA Positive Negative - 1999(20) ++++ mg/dL [facility] Comment on above: 30 Spec Grav, UA 1.030 1 - 1.03 [facility] Urobilinogen, UA 0.2 0.2 - 12 mg/dL [facility] Cytology Cervical or vaginal smear or scraping studyon 03-05-2023 [facility] CBC AUTO DIFFon 07-25-2022 BASO # 0.0 103/ul Normal 0.0-0.1 [facility] Comment on above: Performed By: #### C BC #### [facility] [address] [place] [address] Dr. Jerry Samuel Basophils/100 WBC (Bld) 0.3 % Normal 0.2-2.0 [facility] Comment on above: Performed By: #### C BC #### [facility] [address] [place] [address] Dr. Jerry Samuel EO # 0.1 103/ul Normal 0.0-0.7 [facility] Comment on above: Performed By: #### C BC #### [facility] [address] [place] [address] Dr. Jerry Samuel Eosinophils/100 WBC (Bld) 1.4 % Normal 0.9-7.0 [facility] Comment on above: Performed By: #### C BC #### [facility] [address] [place] [address] Dr. Jerry Samuel Erythrocyte distribution width (RBC) [Ratio] 13.2 % Normal 11.0-15.0 [facility] Comment on above: Performed By: #### C BC #### [facility] [address] [place] [address] Dr. Jerry Samuel Hematocrit (Bld) [Volume fraction] 33.9 % Critically low 36.0-48.0 [facility] Comment on above: Performed By: #### C BC #### [facility] [address] [place] [address] Dr. Jerry Samuel Hemoglobin (Bld) [Mass/Vol] 11.3 g/dL Critically low 12.0-16.0 [facility] Comment on above: Performed By: #### C BC #### [facility] [address] [place] [address] Dr. Jerry Samuel IG # 0.04 10e3/ul Critically high 0.00-0.03 [facility] Comment on above: Performed By: #### C BC #### [facility] [address] [place] [address] Dr. Jerry Samuel IG % 0.6 % Critically high 0.0-0.5 [facility] Comment on above: Performed By: #### C BC #### [facility] [address] [place] [address] Dr. Jerry Samuel LYMPH # 1.9 103/ul Normal 1.2-3.8 [facility] Comment on above: Performed By: #### C BC #### [facility] [address] [place] [address] Dr. Jerry Samuel Lymphocytes/100 WBC (Bld) 30.2 % Normal 20.5-60.0 [facility] Comment on above: Performed By: #### C BC #### [facility] [address] [place] [address] Dr. Jerry Samuel MANUAL DIFF REQ NO Normal [facility] Comment on above: Performed By: #### C BC #### [facility] [address] [place] [address] Dr. Jerry Samuel MCH (RBC) [Entitic mass] 29.9 pg Normal 26.7-34.0 [facility] Comment on above: Performed By: #### C BC #### [facility] [address] [place] [address] Dr. Jerry Samuel MCHC (RBC) [Mass/Vol] 33.3 g/dL Normal 29.9-35.2 [facility] Comment on above: Performed By: #### C BC #### [facility] [address] [place] [address] Dr. Jerry Samuel MCV (RBC) [Entitic vol] 89.7 fL Normal 81.0-99.0 [facility] Comment on above: Performed By: #### C BC #### [facility] [address] [place] [address] Dr. Jerry Samuel MONO # 0.5 103/ul Normal 0.3-0.8 [facility] Comment on above: Performed By: #### C BC #### [facility] [address] [address] [address] Jerry Samuel Monocytes/100 WBC (Bld) 7.2 % Normal 1.7-12.0 [facility] Comment on above: Performed By: #### C BC #### [facility] [address] [address] [address] Jerry Samuel NEUT # 3.8 103/ul Normal 1.4-6.5 [facility] Comment on above: Performed By: #### C BC #### [facility] [address] [address] [address] Jerry Samuel Neutrophils/100 WBC (Bld) 60.3 % Normal 43.0-75.0 [facility] Comment on above: Performed By: #### C BC #### [facility] [address] [place] [address] Dr. Jerry Samuel Platelet mean volume (Bld) [Entitic vol] 9.8 fL Normal 9.5-13.5 [facility] Comment on above: Performed By: #### C BC #### [facility] [address] [place] [address] Dr. Jerry Samuel PLT 188 103/ul Normal 150-450 [facility] Comment on above: Performed By: #### C BC #### [facility] [address] [address] [address] Jerry Samuel RBC 3.78 106/ul Critically low 4.20-5.40 [facility] Comment on above: Performed By: #### C BC #### [facility] [address] [address] [address] Jerry Samuel WBC 6.2 103/ul Normal 4.0-11.0 [facility] Comment on above: Performed By: #### C BC #### [facility] [address] [place] [address] Dr. Jerry Samuel GLUCOSE - 1HRon 07-25-2022 Glucose [Mass/Vol] 100 mg/dL Normal 74-106 [facility] Comment on above: Performed By: #### N BOX #### [facility] [address] [place], [place] [address] Dr. Jerry Samuel US PREG ANATOMY SINGLEon [...] ABRIL SCANLON Date: 2022-07-02 13:45 Normal [facility] AFP MATERNAL FOR SPINA BIFID Aon 06-14-2022 AFP MoM 0.87 Normal [facility] Comment on above: Performed By: #### R PRQ #### [facility] [address] [place], [place] [address] Dr. Jerry Samuel AFP Value 39.6 ng/mL Normal [facility] Comment on above: Performed By: #### R PRQ #### [facility] [address] [place] [address] Dr. Jerry Samuel AFP, Serum for Spina Bifida Report Normal [facility] Comment on above: Performed By: #### R PRQ #### [facility] [address] [place] [address] Dr. Jerry Samuel Comment Comment Normal [facility] Comment on above: Result Comment: Irina Petersen, Ph.D., [facility] Director . References: Available Upon Request. . Multiples Of Median Cutoffs For AFP Elevations Patrick 2.5 Black 2.8 IDD 2.0 Twins 4.5 Abbreviation Definitions IDD - Insulin Dep Diabetes OSBR - Open Spina Bifida Risk . For further inquiries contact [facility] at [phone]. . This test was developed and its performance characteristics determined by [employer]. It has not been cleared or approved by the Food and Drug Administration. Performed By: #### R PRQ #### [facility] [address] [place] [address] Dr. Jerry Samuel Gest Age Collection Date 18.9 weeks Normal [facility] Comment on above: Performed By: #### R PRQ #### [facility] [address] [place] [address] Dr. Jerry Samuel Gestat, Age Based on Ultrasound Normal [facility] Comment on above: Result Comment: 09.0 on 04/04/2022 Recalculations are not recommended when gestational dating by LMP and ultrasound are within 10 days. Performed By: #### R PRQ #### [facility] [address] [place] [address] Dr. Jerry Samuel Insulin Dep Diabetes No Normal [facility] Comment on above: Performed By: #### R PRQ #### [facility] [address] [place] [address] Dr. Jerry Samuel Interpretation Comment Normal [facility] Comment on above: Result Comment: Inte [...] Customer Services to discuss available options. The [employer] recommends amniocentesis be offered to women age 35 and older. Performed By: #### R PRQ #### [facility] [address] [place] [address] Dr. Jerry Smauel [age] Normal [facility] Comment on above: Performed By: #### R PRQ #### [facility] [address] [place] [address] Dr. Jerry Samuel Multiple Gestation No Normal [facility] Comment on above: Performed By: #### R PRQ #### [facility] [address] [place] [address] Dr. Jerry Samuel [place] [address] Normal [facility] Comment on above: Performed By: #### R PRQ #### [facility] [address] [address] [address] Jerry Samuel PDF . Normal [facility] Comment on above: Performed By: #### R PRQ #### [facility] [address] [place] [address] Dr. Jerry Samuel Race Normal [facility] Comment on above: Performed By: #### R PRQ #### [facility] [address] [place] [address] Dr. Jerry Samuel Test Results: Negative Normal [facility] Comment on above: Performed By: #### R PRQ #### [facility] [address] [place] [address] Dr. Jerry Samuel CHLAMYDIA/GONOCOCCUS ELINOR (SW AB/URINE/PAPon 06-07-2022 Chlamydia trachomatis, ELINOR Negative Normal Negative [facility] Comment on above: Performed By: #### R PRQ #### [facility] [address] [place] [address] Dr. Jerry Samuel Neisseria gonorrhoeae, ELINOR Negative Normal Negative [facility] Comment on above: Performed By: #### R PRQ #### [facility] [address] [place] [address] Dr. Jerry Samuel VAGINITIS/VAGINOSIS DNA PROB Nayan 06-06-2022 Margaret species Negative Normal Negative [facility] Comment on above: Performed By: #### V AGINT #### [facility] [address] [place] [address] Dr. Jerry Samuel Gardnerella vaginalis Negative Normal Negative [facility] Comment on above: Performed By: #### V AGINT #### [facility] [address] [place] [address] Dr. Jerry Samuel Trichomonas vaginalis Negative Normal Negative [facility] Comment on above: Performed By: #### V AGINT #### [facility] [address] [place] [address] Dr. Jerry Samuel CBC AUTO DIFFon 05-26-2022 BASO # 0.0 103/ul Normal 0.0-0.1 [facility] Comment on above: Performed By: #### C BC #### [facility] [address] [place] [address] Dr. Jerry Samuel Basophils/100 WBC (Bld) 0.1 % Critically low 0.2-2.0 [facility] Comment on above: Performed By: #### C BC #### [facility] [address] [place] [address] Dr. Jerry Samuel EO # 0.0 103/ul Normal 0.0-0.7 [facility] Comment on above: Performed By: #### C BC #### [facility] [address] [place] [address] Dr. Jerry Samuel Eosinophils/100 WBC (Bld) 0.4 % Critically low 0.9-7.0 [facility] Comment on above: Performed By: #### C BC #### [facility] [address] [place] [address] Dr. Jerry Samuel Erythrocyte distribution width (RBC) [Ratio] 12.6 % Normal 11.0-15.0 [facility] Comment on above: Performed By: #### C BC #### [facility] [address] [place] [address] Dr. Jerry Samuel Hematocrit (Bld) [Volume fraction] 34.0 % Critically low 36.0-48.0 [facility] Comment on above: Performed By: #### C BC #### [facility] [address] [place] [address] Dr. Jerry Samuel Hemoglobin (Bld) [Mass/Vol] 11.6 g/dL Critically low 12.0-16.0 [facility] Comment on above: Performed By: #### C BC #### [facility] [address] [place] [address] Dr. Jerry Samuel IG # 0.03 10e3/ul Normal 0.00-0.03 [facility] Comment on above: Performed By: #### C BC #### [facility] [address] [place] [address] Dr. Jerry Samuel IG % 0.4 % Normal 0.0-0.5 [facility] Comment on above: Performed By: #### C BC #### [facility] [address] [place] [address] Dr. Jerry Samuel LYMPH # 1.1 103/ul Critically low 1.2-3.8 [facility] Comment on above: Performed By: #### C BC #### [facility] [address] [place] [address] Dr. Jerry Samuel Lymphocytes/100 WBC (Bld) 16.5 % Critically low 20.5-60.0 [facility] Comment on above: Performed By: #### C BC #### [facility] [address] [place] [address] Dr. Jerry Samuel MANUAL DIFF REQ NO Normal [facility] Comment on above: Performed By: #### C BC #### [facility] [address] [place] [address] Dr. Jerry Samuel MCH (RBC) [Entitic mass] 29.1 pg Normal 26.7-34.0 [facility] Comment on above: Performed By: #### C BC #### [facility] [address] [place] [address] Dr. Jerry Sameul MCHC (RBC) [Mass/Vol] 34.1 g/dL Normal 29.9-35.2 [facility] Comment on above: Performed By: #### C BC #### [facility] [address] [place] [address] Dr. Jerry Samuel MCV (RBC) [Entitic vol] 85.2 fL Normal 81.0-99.0 [facility] Comment on above: Performed By: #### C BC #### [facility] [address] [place] [address] Dr. Jerry Samuel MONO # 0.4 103/ul Normal 0.3-0.8 [facility] Comment on above: Performed By: #### C BC #### [facility] [address] [place] [address] Dr. Jerry Samuel Monocytes/100 WBC (Bld) 6.0 % Normal 1.7-12.0 [facility] Comment on above: Performed By: #### C BC #### [facility] [address] [place] [address] Dr. Jerry Samuel NEUT # 5.1 103/ul Normal 1.4-6.5 [facility] Comment on above: Performed By: #### C BC #### [facility] [address] [place] [address] Dr. Jerry Samuel Neutrophils/100 WBC (Bld) 76.6 % Critically high 43.0-75.0 [facility] Comment on above: Performed By: #### C BC #### [facility] [address] [place] [address] Dr. Jerry Samuel Platelet mean volume (Bld) [Entitic vol] 10.5 fL Normal 9.5-13.5 [facility] Comment on above: Performed By: #### C BC #### [facility] [address] [place] [address] Dr. Jerry Samuel PLT 207 103/ul Normal 150-450 [facility] Comment on above: Performed By: #### C BC #### [facility] [address] [place] [address] Dr. Jerry Samuel RBC 3.99 106/ul Critically low 4.20-5.40 [facility] Comment on above: Performed By: #### C BC #### [facility] [address] [place] [address] Dr. Jerry Samuel WBC 6.7 103/ul Normal 4.0-11.0 [facility] Comment on above: Performed By: #### C BC #### [facility] [address] [place] [address] Dr. Jerry Samuel ER URINE PROFILEon 3 Bilirubin Ql (U) Negative Normal NEGATIVE [place] Comment on above: Performed By: #### E RUR #### [facility] [address] [place] [address] Dr. Jerry Samuel Clarity (U) CLEAR Normal CLEAR [facility] Comment on above: Performed By: #### E RUR #### [facility] [address] [place] [address] Dr. Jerry Samuel Color (U) LT. YELLOW Normal YELLOW [facility] Comment on above: Performed By: #### E RUR #### [facility] [address] [place] [address] Dr. Jerry Samuel ERUAHD A micrscopic examina tion will be performed if indicated. Normal [facility] Comment on above: Performed By: #### E RUR #### [facility] [address] [place] [address] Dr. Jerry Samuel Glucose Ql (U) Negative Normal NEGATIVE [facility] Comment on above: Performed By: #### E RUR #### [facility] [address] [place] [address] Dr. Jerry Samuel Hemoglobin Ql (U) Negative Normal NEGATIVE [facility] Comment on above: Performed By: #### E RUR #### [facility] [address] [place] [address] Dr. Jerry Samuel Ketones Ql (U) Negative Normal NEGATIVE [facility] Comment on above: Performed By: #### E RUR #### [facility] [address] [place] [address] Dr. Jerry Samuel LEUKOCYTES Negative Normal NEGATIVE [facility] Comment on above: Performed By: #### E RUR #### [facility] [address] [place] [address] Dr. Jerry Samuel Nitrite Ql (U) Negative Normal NEGATIVE [facility] Comment on above: Performed By: #### E RUR #### [facility] [address] [place] [address] Dr. Jerry Samuel pH (U) 6.5 [pH] Normal 5-9 [facility] Comment on above: Performed By: #### E RUR #### [facility] [address] [place] [address] Dr. Jerry Samuel SPEC GRAVITY <=1.005 Abnormal 1.005-<=1.025 [facility] Comment on above: Performed By: #### E RUR #### [facility] [address] [place] [address] Dr. Jerry Samuel UA PROTEIN Negative Normal NEGATIVE/ TRACE [facility] Comment on above: Performed By: #### E RUR #### [facility] [address] [place] [address] Dr. Jerry Samuel UR MICRO IND NOT INDICATED Normal [facility] Comment on above: Performed By: #### E RUR #### [facility] [address] [place] [address] Dr. Jerry Samuel Urobilinogen Qn (U) 0.2 {Charlette'U}/dL Normal 0.2 - 1. 0 [facility] Comment on above: Performed By: #### E RUR #### [facility] [address] [place] [address] Dr. Jerry Samuel PROF 14(COMP METB)on 023 Albumin [Mass/Vol] 3.4 g/dL Normal 3.4-5.0 [facility] Comment on above: Performed By: #### R PRQ #### [facility] [address] [place] [address] Dr. Jerry Samuel Albumin/Globulin [Mass ratio] 1.0 {ratio} Normal [facility] Comment on above: Performed By: #### R PRQ #### [facility] [address] [address] [address] Jerry Samuel ALP [Catalytic activity/Vol] 33 U/L Critically low 46-116 [facility] Comment on above: Performed By: #### R PRQ #### [facility] [address] [address] [address] Jerry Samuel ALT [Catalytic activity/Vol] 16 U/L Normal 14-59 [facility] Comment on above: Performed By: #### R PRQ #### [facility] [address] [address] [address] Jerry Samuel Anion gap [Moles/Vol] 8.5 mmol/L Normal [facility] Comment on above: Performed By: #### R PRQ #### [facility] [address] [address] [address] Jerry Samuel AST [Catalytic activity/Vol] 12 U/L Critically low 15-37 [facility] Comment on above: Performed By: #### R PRQ #### [facility] [address] [address] [address] Jerry Samuel Bilirubin [Mass/Vol] 0.3 mg/dL Normal 0.2-1.0 [facility] Comment on above: Performed By: #### R PRQ #### [facility] [address] [address] [address] Jerry Samuel Calcium [Mass/Vol] 9.2 mg/dL Normal 8.5-10.1 [facility] Comment on above: Performed By: #### R PRQ #### [facility] [address] [address] [address] Jerry Samuel Chloride [Moles/Vol] 105 mmol/L Normal 98-107 [facility] Comment on above: Performed By: #### R PRQ #### [facility] [address] [address] [address] Jerry Samuel CO2 [Moles/Vol] 25.0 mmol/L Normal 21.0-32.0 [facility] Comment on above: Performed By: #### R PRQ #### [facility] [address] [place] [address] Dr. Jerry Samuel Creatinine [Mass/Vol] 0.40 mg/dL Critically low 0.55-1.02 [facility] Comment on above: Performed By: #### R PRQ #### [facility] [address] [address] [address] Jerry Samuel EGFR-AF [place]LANDER >60 Normal >=60 [place] Comment on above: Performed By: #### R PRQ #### [facility] [address] [address] [address] Jerry Samuel EGFR-NON AF [place]ER >60 Normal >=60 [facility] Comment on above: Performed By: #### R PRQ #### [facility] [address] [place] [address] Dr. Jerry Samuel Globulin (S) [Mass/Vol] 3.5 g/dL Normal [facility] Comment on above: Performed By: #### R PRQ #### [facility] [address] [address] [address] Jerry Samuel Glucose [Mass/Vol] 94 mg/dL Normal 74-106 [facility] Comment on above: Performed By: #### R PRQ #### [facility] [address] [place] [address] Dr. Jerry Samuel Potassium [Moles/Vol] 3.5 mmol/L Normal 3.5-5.1 [facility] Comment on above: Performed By: #### R PRQ #### [facility] [address] [address] [address] Jerry Samuel Protein [Mass/Vol] 6.9 g/dL Normal 6.4-8.2 [facility] Comment on above: Performed By: #### R PRQ #### [facility] [address] [place] [address] Dr. Jerry Samuel Sodium [Moles/Vol] 135 mmol/L Critically low 136-145 [facility] Comment on above: Performed By: #### R PRQ #### [facility] [address] [place] [address] Dr. Jerry Samuel Urea nitrogen [Mass/Vol] 6.0 mg/dL Critically low 7.0-18.0 [facility] Comment on above: Performed By: #### R PRQ #### [facility] [address] [place] [address] Dr. Jerry Samuel Urea nitrogen/Creatinine [Mass ratio] 15.0 mg/mg Normal [facility] Comment on above: Performed By: #### R PRQ #### [facility] [address] [place] [address] Dr. Jerry Samuel DOROTEO BOX TEST PT SEND OUTo n 05-02-2022 SENT TO REF LAB 05/02/2022 Normal [facility] Comment on above: Performed By: #### N BOX #### [facility] [address] [place] [address] Dr. Jerry Samuel HEP B SURFACE ANTIGEN SCREEN on 04-05-2022 HBsAg Screen Negative Normal Negative [facility] Comment on above: Performed By: #### N BOX #### [facility] [address] [place] [address] Dr. Jerry Samuel HEPATITIS C VIRUS AB W/ REFL EX QUANTon 04-05-2022 HCV AB <0.1 Normal 0.0-0.9 [facility] Comment on above: Performed By: #### H CVPCRR #### [facility] [address] [place] [address] Dr. Jerry Samuel Interpretation: Comment Normal [facility] Comment on above: Result Comment: Nega tive Not infected with HCV, unless recent infection is suspected or other evidence exists to indicate HCV infection. Performed By: #### H CVPCRR #### [facility] [address] [place] [address] Dr. Jerry Samuel HIV 1 AND 2 WITH REFLEXon HIV Screen 4th Generation wRfx Non-Reactive Normal Non Reactive [facility] Comment on above: Result Comment: HIV Negative HIV-1/HIV-2 antibodies and HIV-1 p24 antigen were NOT detected. There is no laboratory evidence of HIV infection. Performed By: #### R PRQ #### [facility] [address] [place] [address] Dr. Jerry Samuel RPR QUANTon 04-05-2022 Rapid Plasma Reagin, Quant Non-Reactive Normal NonRea<1:1 [facility] Comment on above: Result Comment: Nathaly wilkes Note: This test does not meet current guidelines for screening and diagnosis of syphilis. This test is intended for following treatment response in patients being treated for syphilis infection. To screen for syphilis infection, a reflex cascade that includes both RPR and a treponema-specific assay should be utilized, such as Treponema pallidum (Syphilis) Screening [place] (944200) or Rapid Plasma Reagin (RPR) Test With Reflex to Quantitative RPR and Confirmatory Treponema pallidum Antibodies (971947). Performed By: #### R PRQ #### [facility] [address] [place] [address] Dr. Jerry Samuel RUBELLA AB IGGon 04-05-2022 Rubella Antibodies, IgG 1.97 index Normal Immune >0.99 [facility] Comment on above: Result Comment: Non- immune <0.90 Equivocal 0.90 - 0.99 Immune >0.99 Performed By: #### R UBIGG #### [facility] [address] [place] [address] Dr. Jerry Samuel CBC AUTO DIFFon 04-04-2022 BASO # 0.0 103/ul Normal 0.0-0.1 [facility] Comment on above: Performed By: #### R PRQ #### [facility] [address] [place] [address] Dr. Jerry Samuel Basophils/100 WBC (Bld) 0.3 % Normal 0.2-2.0 [facility] Comment on above: Performed By: #### R PRQ #### [facility] [address] [place] [address] Dr. Jerry Samuel EO # 0.1 103/ul Normal 0.0-0.7 [facility] Comment on above: Performed By: #### R PRQ #### [facility] [address] [place] [address] Dr. Jerry Samuel Eosinophils/100 WBC (Bld) 0.7 % Critically low 0.9-7.0 [facility] Comment on above: Performed By: #### R PRQ #### [facility] [address] [place] [address] Dr. Jerry Samuel Erythrocyte distribution width (RBC) [Ratio] 12.3 % Normal 11.0-15.0 [facility] Comment on above: Performed By: #### R PRQ #### [facility] [address] [place] [address] Dr. Jerry Samuel Hematocrit (Bld) [Volume fraction] 35.1 % Critically low 36.0-48.0 [facility] Comment on above: Performed By: #### R PRQ #### [facility] [address] [place] [address] Dr. Jerry Samuel Hemoglobin (Bld) [Mass/Vol] 11.8 g/dL Critically low 12.0-16.0 [facility] Comment on above: Performed By: #### R PRQ #### [facility] [address] [place] [address] Dr. Jerry Samuel IG # 0.02 10e3/ul Normal 0.00-0.03 [facility] Comment on above: Performed By: #### R PRQ #### [facility] [address] [place] [address] Dr. Jerry Samuel IG % 0.3 % Normal 0.0-0.5 [facility] Comment on above: Performed By: #### R PRQ #### [facility] [address] [place] [address] Dr. Jerry Samuel LYMPH # 2.0 103/ul Normal 1.2-3.8 [facility] Comment on above: Performed By: #### R PRQ #### [facility] [address] [place] [address] Dr. Jerry Samuel Lymphocytes/100 WBC (Bld) 26.7 % Normal 20.5-60.0 [facility] Comment on above: Performed By: #### R PRQ #### [facility] [address] [place] [address] Dr. Jerry Samuel MANUAL DIFF REQ NO Normal [facility] Comment on above: Performed By: #### R PRQ #### [facility] [address] [address] [address] Jerry Samuel MCH (RBC) [Entitic mass] 29.0 pg Normal 26.7-34.0 [facility] Comment on above: Performed By: #### R PRQ #### [facility] [address] [place] [address] Dr. Jerry Samuel MCHC (RBC) [Mass/Vol] 33.6 g/dL Normal 29.9-35.2 [facility] Comment on above: Performed By: #### R PRQ #### [facility] [address] [place] [address] Dr. Jerry Samuel MCV (RBC) [Entitic vol] 86.2 fL Normal 81.0-99.0 [facility] Comment on above: Performed By: #### R PRQ #### [facility] [address] [place] [address] Dr. Jerry Samuel MONO # 0.5 103/ul Normal 0.3-0.8 [facility] Comment on above: Performed By: #### R PRQ #### [facility] [address] [place] [address] Dr. Jerry Samuel Monocytes/100 WBC (Bld) 6.7 % Normal 1.7-12.0 [facility] Comment on above: Performed By: #### R PRQ #### [facility] [address] [place] [address] Dr. Jerry Samuel NEUT # 4.9 103/ul Normal 1.4-6.5 [facility] Comment on above: Performed By: #### R PRQ #### [facility] [address] [place] [address] Dr. Jerry Samuel Neutrophils/100 WBC (Bld) 65.3 % Normal 43.0-75.0 [facility] Comment on above: Performed By: #### R PRQ #### [facility] [address] [place] [address] Dr. Jerry Samuel Platelet mean volume (Bld) [Entitic vol] 10.0 fL Normal 9.5-13.5 [facility] Comment on above: Performed By: #### R PRQ #### [facility] [address] [address] [address] Jerry Samuel PLT 218 103/ul Normal 150-450 [facility] Comment on above: Performed By: #### R PRQ #### [facility] [address] [address] [address] Jerry Samuel RBC 4.07 106/ul Critically low 4.20-5.40 [facility] Comment on above: Performed By: #### R PRQ #### [facility] [address] [address] [address] Jerry Samuel WBC 7.5 103/ul Normal 4.0-11.0 [facility] Comment on above: Performed By: #### R PRQ #### [facility] [address] [place] [address] Dr. Jerry Samuel CULTURE URINEon 04-04-2022 CULTURE URINE Culture Observations : NO GROWTH. Normal [facility] Comment on above: Performed By: #### N BOX #### [facility] [address] [address] [address] Jerry Samuel GLYCOHEMOGLOBIN A1Con 2021 ADA RECOMMENDATION SEE BELOW Normal [facility] Comment on above: Result Comment: ADA RECOMMENDED LIMIT 4.0 - 6.0 ADA THERAPEUTIC TARGET < 7.0 ACTION SUGGESTED > 7.0 Performed By: #### N BOX #### [facility] [address] [address] [address] Jerry Samuel Glucose [Mass/Vol] 97 mg/dL Normal [facility] Comment on above: Performed By: #### N BOX #### [facility] [address] [place] [address] Dr. Jerry Samuel HbA1c (Bld) [Mass fraction] 5.0 % Normal 4.5-6.2 [facility] Comment on above: Performed By: #### N BOX #### [facility] [address] [place] [address] Dr. Jerry Samuel TYPE AND SCREENon 04-04-2022 TYPE AND SCREEN Negative Normal [facility] Comment on above: Performed By: #### N BOX #### [facility] [address] [place] [address] Dr. Jerry Samuel US PREG TVon 04-04-2022 [...] EDITH WILLIS Date: 2022-04-04 16:13 Normal [facility] PREG QUANT HCGon 03-07-2022 HCG QUANT 2201 mIU/mL Normal [facility] Comment on above: Performed By: #### R PRQ #### [facility] [address] [place] [address] Dr. Jerry Samuel HCG RANGE SEE BELOW Normal [facility] Comment on above: Result Comment: 5-50 0.2-1 WEEK 50-500 1-2 WEEKS 100-5,000 2-3 WEEKS 500-10,000 3-4 WEEKS 1,000-50,000 4-5 WEEKS 10,000-100,000 5-6 WEEKS 15,000-200,000 6-8 WEEKS 10,000-100,000 2-3 MONTHS Performed By: #### R PRQ #### [facility] [address] [place] [address] Dr. Jerry Samuel PREG QUANT HCGon 03-05-2022 HCG QUANT 820 mIU/mL Normal [facility] Comment on above: Performed By: #### R PRQ #### [facility] [address] [place] [address] Dr. Jerry Samuel HCG RANGE SEE BELOW Normal [facility] Comment on above: Result Comment: 5-50 0.2-1 WEEK 50-500 1-2 WEEKS 100-5,000 2-3 WEEKS 500-10,000 3-4 WEEKS 1,000-50,000 4-5 WEEKS 10,000-100,000 5-6 WEEKS 15,000-200,000 6-8 WEEKS 10,000-100,000 2-3 MONTHS Performed By: #### R PRQ #### [facility] [address] [place] [address] Dr. Jerry Samuel PAP ACOG PANEL 2: 22 to 30on 02-21-2022 . . [facility] Comment on above: Performed By: #### R PRQ #### [facility] [address] [address] [address] Jerry Samuel Age Gdln ACOG Testing - [facility] Comment on above: Performed By: #### R PRQ #### [facility] [address] [place] [address] Dr. Jerry Samuel DIAGNOSIS: Comment [facility] Comment on above: Result Comment: NEGA TIVE FOR INTRAEPITHELIAL LESION OR MALIGNANCY. SPECIMEN REPROCESSED FOR INTERPRETATION. Performed By: #### R PRQ #### [facility] [address] [place] [address] Dr. Jerry Samuel Methodology: Comment [facility] Comment on above: Result Comment: This liquid based ThinPrep(R) pap test was screened with the use of an image guided system. Performed By: #### R PRQ #### [facility] [address] [place] [address] Dr. Jerry Samuel Note: Comment [facility] Comment on above: Result Comment: The Pap smear is a screening test designed to aid in the detection of premalignant and malignant conditions of the uterine cervix. It is not a diagnostic procedure and should not be used as the sole means of detecting cervical cancer. Both false-positive and false-negative reports do occur. . Performed By: #### R PRQ #### [facility] [address] [place] [address] Dr. Jerry Samuel Performed by: Comment [facility] Comment on above: Result Comment: Anders Roman, Glove Turner And Former (ASCP) Performed By: #### R PRQ #### [facility] [address] [place] [address] Dr. Jerry Samuel Reflex Criteria: Comment Normal [place] Comment on above: Result Comment: The HPV DNA reflex criteria were not met with this specimen result therefore, no HPV testing was performed. . Performed By: #### R PRQ #### [facility] [address] [place] [address] Dr. Jerry Samuel Specimen adequacy: Comment Normal [facility] Comment on above: Result Comment: Sati sfactory for evaluation. Endocervical and/or squamous metaplastic cells (endocervical component) are present. Performed By: #### R PRQ #### [facility] [address] [place] [address] Dr. Jerry Samuel US PELVIS AND TRANSVAGon [...] by: EDITH WILLIS Date: 2022-02-13 14:34 Normal [facility] CBC AUTO DIFFon 02-12-2022 BASO # 0.0 103/ul Normal 0.0-0.1 [facility] Comment on above: Performed By: #### C BC #### [facility] [address] [place] [address] Dr. Jerry Samuel Basophils/100 WBC (Bld) 0.6 % Normal 0.2-2.0 [facility] Comment on above: Performed By: #### C BC #### [facility] [address] [place] [address] Dr. Jerry Samuel EO # 0.1 103/ul Normal 0.0-0.7 [facility] Comment on above: Performed By: #### C BC #### [facility] [address] [place] [address] Dr. Jerry Samuel Eosinophils/100 WBC (Bld) 1.2 % Normal 0.9-7.0 [facility] Comment on above: Performed By: #### C BC #### [facility] [address] [place] [address] Dr. Jerry Samuel Erythrocyte distribution width (RBC) [Ratio] 11.9 % Normal 11.0-15.0 [facility] Comment on above: Performed By: #### C BC #### [facility] [address] [place] [address] Dr. Jerry Samuel Hematocrit (Bld) [Volume fraction] 39.1 % Normal 36.0-48.0 [facility] Comment on above: Performed By: #### C BC #### [facility] [address] [place] [address] Dr. Jerry Samuel Hemoglobin (Bld) [Mass/Vol] 13.0 g/dL Normal 12.0-16.0 [facility] Comment on above: Performed By: #### C BC #### [facility] [address] [place] [address] Dr. Jerry Samuel IG # 0.01 10e3/ul Normal 0.00-0.03 [facility] Comment on above: Performed By: #### C BC #### [facility] [address] [place] [address] Dr. Jerry Samuel IG % 0.2 % Normal 0.0-0.5 [facility] Comment on above: Performed By: #### C BC #### [facility] [address] [place] [address] Dr. Jerry Samuel LYMPH # 2.4 103/ul Normal 1.2-3.8 [facility] Comment on above: Performed By: #### C BC #### [facility] [address] [place] [address] Dr. Jerry Samuel Lymphocytes/100 WBC (Bld) 37.7 % Normal 20.5-60.0 [facility] Comment on above: Performed By: #### C BC #### [facility] [address] [place] [address] Dr. Jerry Samuel MANUAL DIFF REQ NO Normal [facility] Comment on above: Performed By: #### C BC #### [facility] [address] [place] [address] Dr. Jerry Samuel MCH (RBC) [Entitic mass] 29.2 pg Normal 26.7-34.0 [facility] Comment on above: Performed By: #### C BC #### [facility] [address] [place] [address] Dr. Jerry Samuel MCHC (RBC) [Mass/Vol] 33.2 g/dL Normal 29.9-35.2 [facility] Comment on above: Performed By: #### C BC #### [facility] [address] [place] [address] Dr. Jerry Samuel MCV (RBC) [Entitic vol] 87.9 fL Normal 81.0-99.0 [facility] Comment on above: Performed By: #### C BC #### [facility] [address] [place] [address] Dr. Jerry Samuel MONO # 0.4 103/ul Normal 0.3-0.8 [facility] Comment on above: Performed By: #### C BC #### [facility] [address] [place] [address] Dr. Jerry Samuel Monocytes/100 WBC (Bld) 5.9 % Normal 1.7-12.0 [facility] Comment on above: Performed By: #### C BC #### [facility] [address] [place] [address] Dr. Jerry Samuel NEUT # 3.5 103/ul Normal 1.4-6.5 [facility] Comment on above: Performed By: #### C BC #### [facility] [address] [place] [address] Dr. Jerry Samuel Neutrophils/100 WBC (Bld) 54.4 % Normal 43.0-75.0 [facility] Comment on above: Performed By: #### C BC #### [facility] [address] [place] [address] Dr. Jerry Samuel Platelet mean volume (Bld) [Entitic vol] 9.9 fL Normal 9.5-13.5 [facility] Comment on above: Performed By: #### C BC #### [facility] [address] [place] [address] Dr. Jerry Samuel PLT 229 103/ul Normal 150-450 [facility] Comment on above: Performed By: #### C BC #### [facility] [address] [place] [address] Dr. Jerry Samuel RBC 4.45 106/ul Normal 4.20-5.40 [facility] Comment on above: Performed By: #### C BC #### [facility] [address] [place] [address] Dr. Jerry Samuel WBC 6.5 103/ul Normal 4.0-11.0 [facility] Comment on above: Performed By: #### C BC #### [facility] [address] [place] [address] Dr. Jerry Samuel FREE T4on 02-12-2022 Free T4 [Mass/Vol] 0.99 ng/dL Normal 0.76-1.46 [facility] Comment on above: Performed By: #### R PRQ #### [facility] [address] [place] [address] Dr. Jerry Samuel GLYCOHEMOGLOBIN A1Con 2021 ADA RECOMMENDATION SEE BELOW Normal [facility] Comment on above: Result Comment: ADA RECOMMENDED LIMIT 4.0 - 6.0 ADA THERAPEUTIC TARGET < 7.0 ACTION SUGGESTED > 7.0 Performed By: #### R PRQ #### [facility] [address] [place] [address] Dr. Jerry Samuel Glucose [Mass/Vol] 103 mg/dL Normal [facility] Comment on above: Performed By: #### R PRQ #### [facility] [address] [address] [address] Jerry Samuel HbA1c (Bld) [Mass fraction] 5.2 % Normal 4.5-6.2 [facility] Comment on above: Performed By: #### R PRQ #### [facility] [address] [place] [address] Dr. Jerry Samuel PROTIMEon 02-12-2022 INR Coag (PPP) [Relative time] 1.00 {INR} Normal [facility] Comment on above: Performed By: #### N BOX #### [facility] [address] [place] [address] Dr. Jerry Samuel INR GUIDELINES SEE BELOW Normal [facility] Comment on above: Result Comment: SACHA RED INR: 2.0 - 3.0 CONDITIONS NOT LISTED BELOW 2.5 - 3.5 FOR PROSTHETIC HEART VALVE REPLACEMENT 2.5 - 3.5 RECURRENT THROMBOSIS Performed By: #### N BOX #### [facility] [address] [place] [address] Dr. Jerry Samuel PT Coag (PPP) [Time] 10.8 s Normal 9.0-11.6 [facility] Comment on above: Performed By: #### N BOX #### [facility] [address] [place] [address] Dr. Jerry Samuel PTTon 02-12-2022 aPTT Coag (Bld) [Time] 27.8 s Normal 22.3-36.2 [facility] Comment on above: Performed By: #### N BOX #### [facility] [address] [place] [address] Dr. Jerry Samuel TSHon 02-12-2022 TSH 1.741 uIU/mL Normal 0.358-3.740 [facility] Comment on above: Performed By: #### T SH #### [facility] [address] [place] [address] Dr. Jerry Samuel Outside Recordson 11-20-2021 Outside Records [id number]#[id number] TIFF [facility] Outside Recordson 11-16-2021 Outside Records [id number]#1.00OT GTIFF [facility] HCG,Urineon 02-22-2021 Beta HCG ( test) Ql (U) Negative Normal [facility] Comment on above: Result Comment: PERF ORMED BY: [place] [id number] PATHOLOGIST [employer]SEMBLER PRIYA WHITE M.D. Performed By: #### U HCG #### [address] 02-22-2021 L ---- Specimen: [id number] Received: 02/23/21 Status: DRE Glenn Num: [id number] Spec Type: Surgical Subm Dr: Edith Cagle Jr, DO Tissues: A Duodenum - Biopsy (DUODENUM BX) B Stomach - Biopsy/Polyp (ANTRUM BX) C Colon Biopsy (RANDOM COLON) Procedures: HE Stain/6, Gross/Micro L4/3 Patient Age/Sex Location Account Attending Physician LauritaKarivilma Amaya / [id number] Edith Cagle Jr, DO SPEC NUM: [id number] RECD: 02/23/21 STATUS: DRE ELIZABETH NUM: [id number] CASIMIRO: 02/22/21- SUBM DR: Edith Cagle Jr, DO ENTERED: 02/23/[address]: ANITA TYPE: Surgical DEPT: S ENTERED BY: [id number] RECV BY: [id number] ORDERED: HE Stain/6, Gross/Micro L4/3 ORDERED: HE [...] in one cassette labeled B1. (SM/YJ) Specimen: [id number] Received: 02/23/21 Status: DRE Elizabeth Num: [id number] Spec Type: Surgical Subm Dr: Edith Cagle Jr, DO Tissues: A Duodenum - Biopsy (DUODENUM BX) B Stomach - Biopsy/Polyp (ANTRUM BX) C Colon Biopsy (RANDOM COLON) Procedures: HE Stain/6, Gross/Micro L4/3 Patient: Will Shay [id number] (Continued) Specimen: [id number] Received: 02/23/21 (Continued) Gross Description (Continued) Signed (signature on file) Gail Crockett MD 02/26/21 1601 Specimen: [id number] Received: 02/23/21 Status: DRE Elizabeth Num: [id number] Spec Type: Surgical Subm Dr: Edith Cagle Jr, DO Tissues: A Duodenum - Biopsy (DUODENUM BX) B Stomach - Biopsy/Polyp (ANTRUM BX) C Colon Biopsy (RANDOM COLON) Procedures: HE Stain/6, Gross/Micro L4/3 Patient: Will Shay [id number] (Continued) Specimen: [id number] Received: 02/23/21 (Continued) Gross Description (Continued) C. Received in formalin labeled with the patient's name, number and random colon rule out microscopic colitis are 2 marsh tissue fragments, 0.3 cm and 0.9 cm. Entirely submitted in one cassette labeled C1. (/YJ) Microscopic Description A. Two glass slides with [...] characteristics were determined by the [facility] of [facility]. Immunohistochemistry assays have not been validated on decalcified tissue. Results should be interpreted with caution given the possibility of false negative results on decalcified specimens. They have not been cleared by the US Food and Drug Administration. The FDA has determined that such clearance or approval is not necessary. CPT Codes 07976?3, 64511 (more content not included)... Normal [facility] SARS-CoV-2 (COVID-19) RNA ELINOR+probe Ql (Unsp spec) Negative Normal Negative [facility] Comment on above: Order Comment: Healt hcare Worker?: N Result Comment: Testing for SARS-CoV-2 by RT-PCR This test was developed and its performance characteristics determined by [employer] and validated at the [facility]. This test has not been [...] is terminated or revoked sooner. PERFORMED BY: [facility] [place] [address] PATHOLOGIST [employer] ASSEMBLER PRIYA WHITE M.D. Performed By: #### C OVID 19 [facility] #### [address] Vital Signs Date Time Vital Sign Value Performing Clinician Facility 07-05-2024 15:29-0400 Body mass index (BMI) [Ratio] 28.55 kg/m2 Eddie Nova DO Work Phone: [facility] 07-05-2024 15:29-0400 Body weight 85.19 kg Eddie Nova DO Work Phone: [facility] 07-05-2024 15:29-0400 Diastolic blood pressure 78 mm[Hg] Eddie Nova DO Work Phone: [facility] 07-05-2024 15:29-0400 Systolic blood pressure 118 mm[Hg] Eddie Nova DO Work Phone: [facility] 06-07-2024 15:03-0500 Body mass index (BMI) [Ratio] 28.86 kg/m2 Eddie Nova DO Work Phone: [facility] 06-07-2024 15:03-0500 Body weight 86.09 kg Eddie Nova DO Work Phone: [facility] 06-07-2024 15:03-0500 Diastolic blood pressure 70 mm[Hg] Eddie Nova DO Work Phone: [facility] 06-07-2024 15:03-0500 Systolic blood pressure 112 mm[Hg] Eddie Nova DO Work Phone: [facility] 05-24-2024 14:28-0500 Body mass index (BMI) [Ratio] 29.32 kg/m2 Eddie Nova DO Work Phone: [facility] 05-24-2024 14:28-0500 Body weight 87.45 kg Eddie Nova DO Work Phone: [facility] 05-24-2024 14:28-0500 Diastolic blood pressure 70 mm[Hg] Eddie Nova DO Work Phone: [facility] 05-24-2024 14:28-0500 Systolic blood pressure 120 mm[Hg] Eddie Nova DO Work Phone: [facility] 05-11-2024 13:15-0500 Body mass index (BMI) [Ratio] 29.19 kg/m2 Kirsty Sherron PA Work Phone: [facility] 05-11-2024 13:15-0500 Body weight 87.09 kg Kirsty Sherron PA Work Phone: [facility] 05-11-2024 13:15-0500 Diastolic blood pressure 60 mm[Hg] Kirsty Sherron PA Work Phone: [facility] 05-11-2024 13:15-0500 Systolic blood pressure 110 mm[Hg] Kirsty Sherron PA Work Phone: [facility] 04-27-2024 12:18-0500 Body mass index (BMI) [Ratio] 29.8 kg/m2 Eddie Nova DO Work Phone: [facility] 04-27-2024 12:18-0500 Body weight 88.91 kg Eddie Nova DO Work Phone: [facility] 04-27-2024 12:18-0500 Diastolic blood pressure 62 mm[Hg] Eddie Nova DO Work Phone: [facility] 04-27-2024 12:18-0500 Systolic blood pressure 106 mm[Hg] Eddie Nova DO Work Phone: [facility] 04-05-2024 13:24-0500 Body mass index (BMI) [Ratio] 30.38 kg/m2 Kirsty Sherron PA Work Phone: [facility] 04-05-2024 13:24-0500 Body weight 90.63 kg Kirsty [place] PA Work Phone: [facility] 04-05-2024 13:24-0500 Diastolic blood pressure 64 mm[Hg] Kirsty Sherron PA Work Phone: [facility] 04-05-2024 13:24-0500 Systolic blood pressure 104 mm[Hg] Kirsty RAHMAN Work Phone: [facility] 03-08-2024 16:52-0500 Body mass index (BMI) [Ratio] 30.62 kg/m2 Eddie Nova DO Work Phone: [facility] 03-08-2024 16:52-0500 Body weight 91.35 kg Eddie Nova DO Work Phone: [facility] 03-08-2024 16:52-0500 Diastolic blood pressure 74 mm[Hg] Eddie Nova DO Work Phone: [facility] 03-08-2024 16:52-0500 Systolic blood pressure 116 mm[Hg] Eddie Nova DO Work Phone: [facility] 02-09-2024 16:03-0500 Body mass index (BMI) [Ratio] 30.11 kg/m2 Eddie Nova DO Work Phone: [facility] 02-09-2024 16:03-0500 Body weight 89.81 kg Eddie Nova DO Work Phone: [facility] 02-09-2024 16:03-0500 Diastolic blood pressure 70 mm[Hg] Eddie Nova DO Work Phone: [facility] 02-09-2024 16:03-0500 Systolic blood pressure 118 mm[Hg] Eddie Nova DO Work Phone: [facility] 01-07-2024 15:50-0400 Body mass index (BMI) [Ratio] 29.97 kg/m2 Eddie Nova DO Work Phone: [facility] 01-07-2024 15:50-0400 Body weight 89.41 kg Eddie Nova DO Work Phone: [facility] 01-07-2024 15:50-0400 Diastolic blood pressure 72 mm[Hg] Eddie Nova DO Work Phone: [facility] 01-07-2024 15:50-0400 Systolic blood pressure 106 mm[Hg] Eddie Bhatt DO Work Phone: [facility] 12-17-2023 11:17-0400 Body mass index (BMI) [Ratio] 30.33 kg/m2 Kirsty Siu PA Work Phone: [facility] 12-17-2023 11:17-0400 Body weight 90.49 kg Kirsty Siu PA Work Phone: [facility] 12-17-2023 11:17-0400 Diastolic blood pressure 70 mm[Hg] Kirsty Siu PA Work Phone: [facility] 12-17-2023 11:17-0400 Systolic blood pressure 104 mm[Hg] Kirsty Siu PA Work Phone: [facility] 12-12-2023 09:34-0400 Body mass index (BMI) [Ratio] 30.41 kg/m2 [facility] 12-12-2023 09:34-0400 Body weight 90.72 kg [facility] Nurse [facility] 12-12-2023 09:34-0400 Diastolic blood pressure 80 mm[Hg] [employer] [facility] [facility] 12-12-2023 09:34-0400 Systolic blood pressure 120 mm[Hg] [employer] [facility] 03-26-2023 13:45-0500 Body height 164.47 cm Ben Rose Other [facility] Other 03-26-2023 13:45-0500 Body mass index (BMI) [Ratio] 29.6 kg/m2 eBn Rose Other [facility] Other 03-26-2023 13:45-0500 Body weight 80.06 kg Ben Moralesaugusto Other [facility] Other 03-26-2023 13:45-0500 Diastolic blood pressure 74 mm[Hg] Ben Rose Other [facility] Other 03-26-2023 13:45-0500 Systolic blood pressure 120 mm[Hg] Ben Rose Other [facility] Other 06-14-2022 17:07-0500 Body weight 79.[address] EDDIE BHATT . [facility] Comment on above: Performed By: #### RPRQ #### [facility] [address] [place] [address] Dr. Jerry Samuel 03-08-2022 11:15-0500 Body height 164.47 cm Ben Rose Other [facility] Other 03-08-2022 11:15-0500 Body mass index (BMI) [Ratio] 29.01 kg/m2 Ben Rose Other [facility] Other 03-08-2022 11:15-0500 Body weight 78.47 kg Ben Rose Other [facility] Other 03-08-2022 11:15-0500 Diastolic blood pressure 73 mm[Hg] Ben Rose Other [facility] Other 03-08-2022 11:15-0500 Systolic blood pressure 113 mm[Hg] Ben Rose Other [facility] Other Encounters Encounter Date Encounter Type Care Provider Facility Start: 07-05-2024 End: 07-05-2024 ambulatory EDDIE BHATT Not Available Start: 07-05-2024 End: 07-05-2024 Postop follow up visit related to original px Eddie Perezo DO Work Phone: [facility] Comment [...] Not Available Start: 06-07-2024 End: 06-07-2024 ambulatory DEDIE NOVA Not Available Start: 06-07-2024 End: 06-07-2024 [...] 04-15-2024 End: 04-20-2024 Telephone encounter Alana Mcclendon GAY Work Phone: [facility] Start: 04-10-2024 [...] Result Encounter Eddie Nova DO Work Phone: [facility] External Department Unsolicited Start: 02-18-2024 End: 02-20-2024 Clinisync Result Encounter Eddie Nova DO Work Phone: [facility] External Department Unsolicited Start: 02-09-2024 End: 02-09-2024 Patient encounter procedure Eddie Nova DO Work Phone: [facility] Start: 02-09-2024 End: 02-09-2024 [...] flow sheet Eddie Nova DO Work Phone: [facility] Comment on above: First [...] 03-26-2023 End: 03-26-2023 ambulatory Ben Rose Other [facility] Other Start: 03-26-2023 Patient encounter procedure Ben Rose [facility] Start: 01-24-2023 End: 01-24-2023 ambulatory Ben Rose Other [facility] Other Start: 01-24-2023 Telephone encounter Ben Rose [...] 03-08-2022 End: 03-08-2022 ambulatory Ben Rose Other [facility] [employer] Other Start: 03-08-2022 Patient encounter procedure Ben Rose [facility] Start: 03-07-2022 End: 03-08-[address] EDDIE BHATT . Facility: Start: 03-05-2022 End: 03-06-2022 ambulatory ANGELES MIKAEL Facility: Start: 02-13-2022 End: 02-14-2022 ambulatory ANGELES MIKAEL Facility:[facility] Start: 02-12-2022 End: 02-12-2022 ambulatory ANGELES MIKAEL Facility: Start: 02-12-2022 End: 02-13-2022 ambulatory ANGELES MIKAEL Facility:[facility] Start: 11-12-2021 End: 11-20-2021 ambulatory ANGELES MIKAEL Facility: Start: 11-06-2021 End: 11-06-2021 ambulatory Angeles A Mikael ATHLETE MANAGER-C Facility:[facility] Start: 11-05-2021 End: 11-06-2021 ambulatory Angeles A Mikael ATHLETE MANAGER-C Facility:[facility] IC Procedures Date Procedure Procedure Detail Performing Clinician Start: 07-05-2024 Urnls dip stick/tabl et rgnt non-auto w/o micrscp Eddie Nova DO Work Phone: Start: 06-29-2024 TB UA (CLEAN/CATCH) GRE TUTOR/MICRO IF IND. Eddie Nova DO Work Phone: Start: 06-21-2024 ALL MISCELLANEOUS TEST Kirsty Siu [...] Phone: Start: 02-09-2024 RECURRENT VAGINITIS (HTRX) Kirsty RAHAMN Work Phone: Start: 01-08-2024 ALL CBC WITH [...] PM EDT Visit [facility] [address] [place] [id number] Kirsty Siu PA [address] [place] [address] [facility] Start: 07-05-2024 End: 07-05-2024 Patient encounter procedure 07/05/2024 3:00 PM EDT Routine [facility] [address] [place] [id number] Eddie Bhatt, DO [address] [place] [address] [facility] Start: 06-21-2024 End: 06-21-2024 Patient encounter procedure 06/21/2024 1:50 PM EDT Routine [facility] [address] [place] [address] Kirsty Siu, PA [address] [place] [address] [facility] Start: 06-07-2024 End: 06-07-2024 Patient encounter procedure 06/07/2024 2:40 PM EST Routine [facility] [address] [place] [address] Eddie Bhatt, DO [address] [place] [address] [facility] Start: 05-24-2024 End: 05-24-2024 Patient encounter procedure 05/24/2024 2:40 PM EST Routine [facility] [address] [place] [phone] Eddie Bhatt, DO [address] [place] [address] [facility] Start: 05-24-2024 End: 05-24-2024 Professional / ancillary services management 05/24/2024 2:00 PM EST Ancillary Procedure [facility] [address] [facility] [place] [address] [facility] Start: 05-11-2024 End: 05-11-2025 US for US OB follow up transabdominal approach Imaging Routine size inconsistent with dates Expected: 05/11/2024, Expires: 05/11/2025 [facility] Work Phone: Comment on above: Expected: 05/11/2024 , Expires: 05/11/2025 Start: 05-11-2024 End: 05-11-2024 Patient encounter procedure 05/11/2024 1:00 PM EST Routine [facility] [address] [facility] [place] [phone] Eddie Bhatt, DO [address] [facility] [place] [address] [facility] Start: 04-27-2024 End: 04-27-2024 Patient encounter procedure 04/27/2024 11:20 AM EST Routine [facility] [address] [facility] [place] [phone] Eddie Bhatt, DO [address] [place] [address] [facility] Start: 04-05-2024 End: 04-05-2025 CBC panel - Blood by Automated count CBC Lab Routine 25 weeks gestation of Second trimester Diabetes mellitus screening Expected: 04/05/2024 (Approximate), Expires: 04/05/2025 [facility] Work Phone: Comment on above: Expected: 04/05/2024 [...] alpha-fetoprotein) decreased Expected: 03/10/2024 (Approximate), Expires: 03/10/2024 [facility] Comment on above: Expected: 03/10/2024 (Approximate), Expires: 03/10/2024 Start: 03-08-2024 End: 03-08-2024 Patient encounter procedure 03/08/2024 3:50 PM EST Routine [facility] [address] [facility] [phone] Eddie Bhatt, DO [address] [place], [place] [id number] [facility] Start: 03-01-2024 End: 03-01-2024 Professional / ancillary services management 03/01/2024 1:30 PM EST Ancillary Procedure [facility] [address] [facility] [place] [phone] [facility] Start: 02-09-2024 End: 02-09-2024 Patient encounter procedure [facility] Comment on above: Arrived Start: 02-09-2024 End: 02-08-2025 US for US OB ANATOMY SINGLE W US OB CERVICAL LENGTH Imaging Routine Screening, , for anatomic survey Expected: 02/09/2024 (Approximate), Expires: 02/08/2025 [facility] Comment on above: Expected: 02/09/2024 (Approximate), Expires: 02/08/2025 Start: 01-07-2024 End: 01-07-2024 Patient encounter procedure [facility] Comment on above: Arrived Start: 12-17-2023 End: 12-17-2023 Patient encounter procedure 12/17/2023 11:00 AM EDT Office Visit [facility] [address] [facility] [address] Kirsty Siu PA [address] [facility] [place] [address] Arrived [facility] Comment on above: Arrived Start: 12-12-2023 End: 12-11-2024 ABO/Rh ABO/Rh Lab Routine Missed menses Expected: 12/12/2023 (Approximate), Expires: 12/11/2024 [facility] Comment on above: Expected: 12/12/2023 (Approximate), Expires: 12/11/2024 Start: 12-12-2023 End: 12-11-2024 Blood type and Indirect antibody screen panel - Blood Type and screen Lab Routine Missed menses Expected: 12/12/2023 (Approximate), Expires: 12/11/2024 [facility] Work Phone: Comment on above: Expected: 12/12/2023 (Approximate), Expires: 12/11/2024 Start: 12-12-2023 End: 12-11-2024 US Pelvis transvaginal US OB transvaginal Imaging Routine Missed menses Expected: 12/12/2023 (Approximate), Expires: 12/11/2024 [facility] Comment on above: Expected: 12/12/2023 (Approximate), Expires: 12/11/2024 Bacteria identified in Urine by Culture Urine culture Microbiology Routine Missed menses Ordered: 12/12/2023 [facility] Comment on above: Ordered: 12/12/2023 CBC W Auto Different ial panel - Blood CBC and differential Lab Routine Nausea and vomiting during Dizziness Ordered: 01/07/2024 [facility] Work Phone: Comment on above: Ordered: 01/07/2024 CBC W Auto Different ial panel - Blood CBC and differential Lab Routine Missed menses Ordered: 12/12/2023 [facility] Comment on above: Ordered: 12/12/2023 CHLAMYDIA TRACHOMATI S (GENITO/STI) CHLAMYDIA TRACHOMATIS (GENITO/STI) Lab Routine Exposure to STD Ordered: 02/09/2024 [facility] Comment on above: Ordered: 02/09/2024 Hemoglobin A1c/Hemoglobin.total in Blood Hemoglobin A1c Lab Routine Missed menses Ordered: 12/12/2023 [facility] Comment on above: Ordered: 12/12/2023 Hepatitis B virus surface Ag [Presence] in Serum or Plasma by Immunoassay Hepatitis B surface antigen Lab Routine Missed menses Ordered: 12/12/2023 [facility] Comment on above: Ordered: 12/12/2023 Hepatitis C virus Ab [Presence] in Serum or Plasma by Immunoassay Hepatitis C antibody Lab Routine Missed menses Ordered: 12/12/2023 [facility] Comment on above: Ordered: 12/12/2023 HIV-1/HIV-2 antigen/antibody combination immunoassay HIV-1 and HIV-2 antibodies Lab Routine Missed menses Ordered: 12/12/2023 [facility] Comment on above: Ordered: 12/12/2023 Neisseria gonorrhoea e DNA [Presence] in Unspecified specimen by ELINOR with probe detection Neisseria gonorrhea DNA probe, direct Lab Routine Exposure to STD Ordered: 02/09/2024 [facility] Comment on above: Ordered: 02/09/2024 Reagin Ab [Presence] in Serum by RPR RPR Lab Routine Missed menses Ordered: 12/12/2023 [facility] Comment on above: Ordered: 12/12/2023 Rubella antibody, IgG Rubella an tibody, IgG Lab Routine Missed menses Ordered: 12/12/2023 [facility] Comment on above: Ordered: 12/12/2023 SURESWAB(R) ADVANCED VAGINITIS PLUS, TMA SURESWAB(R) ADVANCED VAGINITIS PLUS, TMA Pathology and Cytology Routine Exposure to STD Ordered: 02/09/2024 [facility] Work Phone: Comment on above: Ordered: 02/09/2024 Immunizations Immunization Date Immunization Notes Care Provider Michael albright 11-08-2014 human papilloma viru s vaccine, quadrivalent [facility] Other [facility] Other Payers Date Payer Category Payer Blue Cross Blue Shield [id number] [id number] 2022 Unknown BCBS BCBS [id number] 2022-Present [phone] [address] [place] [address] [id number] 2022 Unknown [id number] 2021 Unknown [id number] 1996 Unknown [id number] 2.16.840.1.516547.3.579.2.718 1996 Unknown [id number] 2.16.840.1.661794.3.579.2.718 1996 Unknown [id number] 2.16.840.1.842491.3.579.2.593 1996 Unknown [id number] 2.16.840.1.183404.3.579.2.593 1996 Unknown [id number] 2.16.840.1.902995.3.579.2.593 1996 Unknown [id number] 2.16.840.1.235699.3.579.2.593 1996 Unknown [id number] 2.16.840.1.313077.3.579.2.593 1996 Unknown [id number] 2.16.840.1.994550.3.579.2.593 1996 Unknown [id number] 2.16.840.1.705916.3.579.2.593 1996 Unknown [id number] 2.16.840.1.843676.3.579.2.593 1996 Unknown [id number] 2.16.840.1.989525.3.579.2.593 1996 Unknown [id number] 2.16.840.1.576296.3.579.2.593 1996 Unknown [id number] 2.16.840.1.987275.3.579.2.593 1996 Unknown [id number] 2.16.840.1.321454.3.579.2.593 1996 Unknown [id number] 2.16.840.1.983396.3.579.2.59 1996 Unknown [id number] 2.16.840.1.835288.3.579.2.59 1996 Unknown [id number] 2.16.840.1.503780.3.579.2.59 1996 Unknown [id number] 2.16.840.1.549254.3.579.2.1258 1996 Unknown [id number] 2.16.840.1.677085.3.579.2.1258 1996 Unknown [id number] 2.16.840.1.986870.3.579.2.1258 1996 Unknown [id number] 2.16.840.1.367133.3.579.2.1258 1996 Unknown [id number] 2.16.840.1.234789.3.579.2.1258 1996 Unknown [id number] 2.16.840.1.824715.3.579.2.1258 1996 Unknown [id number] 2.16.840.1.168872.3.579.2.1258 1996 Unknown [id number] 2.16.840.1.499825.3.579.2.1258 1996 Unknown [id number] 2.16.840.1.961215.3.579.2.1258 1996 Unknown [id number] 2.16.840.1.069505.3.579.2.9 1996 Unknown [id number] 2.16.840.1.100195.3.579.2.1259 1996 Unknown [id number] 2.16.840.1.626516.3.579.2.1259 1996 Unknown [id number] 2.16.840.1.275072.3.579.2.1259 1996 Unknown [id number] 2.16.840.1.318402.3.579.2.1259 1959 Self-pay 1959 Unknown [id number] 2.16. 840.1.186057.19 1959 Unknown [id number] 2.16.840.1.937421.19 1959 Unknown [id number] 1959 Unknown [id number] Unknown [id number] 2.16.840.1.425906.3.579.2.593 Social History Date Type Detail Facility Unknown if ever smoked [facility] Other Start: 03-27-2023 End: 12-12-2023 Sex Assigned At [facility] Other Start: 09-17-2022 Tobacco smoking stat [facility] Never smoked tobacco [facility] Start: 09-17-2022 Tobacco use and exposure Smokeless tobacco non-user [facility] Start: 12-17-2023 End: 07-05-2024 Alcoholic beverage intake Lifetime non-drinker (finding) [facility] Start: 03-27-2023 End: 12-12-2023 History of Social function [facility] Start: 10-27-2023 [facility] Start: 1996 Sex assigned at Not on file N [facility] Clinical Notes 03-08-2022 to 07-05-2024 Peri Peterson, MATHEW - 07/05/2024 3:00 PM Sammie Leyva LPN - 06/07/2024 2:40 PM ESTSranda Leyva LPN - 05/24/2024 2:40 PM JOSIAH [...] infection 09/13/2022 Adjustment disorder with depressed mood ([facility]CC) 09/13/2022 Allergic rhinitis 09/13/2022 Anxiety 09/13/2022 Arthralgia of multiple joints 09/13/2022 Dysmenorrhea 09/13/2022 Family history of thyroid disease 09/13/2022 Hematochezia 09/13/2022 Low back pain 09/13/2022 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 Exam conducted with a gas cutting machine operator present. Vitals: Estimated body mass index is [...] Eddie Bhatt DO documented in this encounter [facility] 06-07-2024 History of Presen t illness Narrative [...] infection 09/13/2022 Adjustment disorder with depressed mood ([facility]CC) 09/13/2022 Allergic rhinitis 09/13/2022 Anxiety 09/13/2022 Arthralgia of multiple joints 09/13/2022 Dysmenorrhea 09/13/2022 Family history of thyroid disease 09/13/2022 Hematochezia 09/13/2022 Low back pain 09/13/2022 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[facility]) 09/13/2022 Subcutaneous nodule 09/13/2022 Tinea pedis 09/13/2022 25 weeks gestation of 04/05/2024 Second trimester 04/05/2024 Resolved Ambulatory Problems Diagnosis Date Noted No Resolved Ambulatory Problems Past Medical History: Diagnosis Date Depression ([facility]) HISTORY PAST MEDICAL HISTORY SOCIAL HISTORY Past Medical History: Diagnosis Date Anxiety Depression ([facility]) Social [...] nursing note reviewed. Exam conducted with a gas cutting machine operator present. Vitals: Estimated body mass index is [...] Eddie Bhatt DO documented in this encounter [facility] 05-24-2024 History of Presen t illness Narrative [...] infection 09/13/2022 Adjustment disorder with depressed mood ([facility]) 09/13/2022 Allergic rhinitis 09/13/2022 Anxiety 09/13/2022 Arthralgia of multiple joints 09/13/2022 Dysmenorrhea 09/13/2022 Family history of thyroid disease 09/13/2022 Hematochezia 09/13/2022 Low back pain 09/13/2022 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[facility]) 09/13/2022 Subcutaneous nodule 09/13/2022 Tinea pedis 09/13/2022 25 weeks gestation of 04/05/2024 Second trimester 04/05/2024 Resolved Ambulatory Problems Diagnosis Date Noted No Resolved Ambulatory Problems Past Medical History: Diagnosis Date Depression ([facility]) HISTORY PAST MEDICAL HISTORY SOCIAL HISTORY Past Medical History: Diagnosis Date Anxiety Depression ([facility]) Social [...] Eddie Bhatt DO documented in this encounter [facility] 05-11-2024 History of Presen t illness Narrative [...] infection 09/13/2022 Adjustment disorder with depressed mood ([facility]) 09/13/2022 Allergic rhinitis 09/13/2022 Anxiety 09/13/2022 Arthralgia of multiple joints 09/13/2022 Dysmenorrhea 09/13/2022 Family history of thyroid disease 09/13/2022 Hematochezia 09/13/2022 Low back pain 09/13/2022 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[facility]) 09/13/2022 Subcutaneous nodule 09/13/2022 Tinea pedis 09/13/2022 25 weeks gestation of 04/05/2024 Second trimester 04/05/2024 Resolved Ambulatory Problems Diagnosis Date Noted No Resolved Ambulatory Problems Past Medical History: Diagnosis Date Depression ([facility]) HISTORY PAST MEDICAL HISTORY SOCIAL HISTORY Past Medical History: Diagnosis Date Anxiety Depression ([facility]) Social History Tobacco Use Smoking status: Never [...] of: JOSIAH Schilling documented in this encounter [facility] 04-27-2024 History of Presen t illness Narrative [...] nursing note reviewed. Exam conducted with a gas cutting machine operator present. Vitals: Estimated body mass index is [...] Eddie Bhatt DO documented in this encounter [facility] 04-15-2024 Telephone encount er Note Madhuri, my [...] do not know, but my phone numbers [phone], thank you, bye. I called pt to let her know that I would talk to Dr. Bhatt and see what he recommends. [facility] 04-15-2024 Miscellaneous Notes Formattin g of this [...] do not know, but my phone numbers [phone], thank you, conye. I called pt to let her know that I would talk to Dr. Bhatt and see what he recommends. 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) HISTORY PAST MEDICAL HISTORY SOCIAL HISTORY Past Medical History: Diagnosis Date Anxiety Depression (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 Exam conducted with a gas cutting machine operator present. 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 Exam conducted with a gas cutting machine operator present. 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 Exam conducted with a gas cutting machine operator present. Vitals: Estimated body mass index is [...] or undercooked meat, and stay away from [facility]. Patient has been consulted regarding any further do's and don'ts of . Patient voiced understanding and all questions and concerns were answered. Orders Placed This Encounter Procedures Urine dip Follow Up: Patient is to return in 4 weeks for routine OB appointment. 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[facility]) 09/13/2022 Subcutaneous nodule 09/13/2022 Tinea pedis 09/13/2022 Resolved Ambulatory Problems Diagnosis Date Noted No Resolved Ambulatory Problems Past Medical History: Diagnosis Date Depression ([facility]) HISTORY PAST MEDICAL HISTORY SOCIAL HISTORY Past Medical History: Diagnosis Date Anxiety Depression ([facility]) Social [...] of: JOSIAH Schilling documented in this encounter [facility] 12-12-2023 History of Presen t illness Narrative [...] infection 09/13/2022 Adjustment disorder with depressed mood ([facility]) 09/13/2022 Allergic rhinitis 09/13/2022 Anxiety 09/13/2022 Arthralgia of multiple joints 09/13/2022 Dysmenorrhea 09/13/2022 Family history of thyroid disease 09/13/2022 Hematochezia 09/13/2022 Low back pain 09/13/2022 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 Advised to have both and unity [...] Leah Raman MA documented in this encounter [facility] 03-26-2023 Evaluation note Encounter Date Diagnosis Assessment [...] call office if she has no improvement [facility] Other 10-20-2023 Evaluation note* Encounter Date Diagnosis Assessment Notes Treatment Notes Treatment Clinical Notes Jan, Epigastric burning sensation (ICD-10 - R10.13) [facility] Other 12-02-2022 Evaluation note* Encounter Date Diagnosis Assessment Notes Treatment Notes Treatment Clinical Notes Mar, Nausea (ICD-10 - R11.0) Mar, Epigastric burning sensation (ICD-10 - R10.13) Mar, Lower abdominal pain (ICD-10 - R10.30) Mar, Bloating (ICD-10 - R14.0) Mar, Functional dyspepsia (ICD-10 - K30) Mar, GERD (gastroesophageal reflux disease) (ICD-10 - K21.9) CONTINUE PANTOPRAZOLE 40 MG DAILY CONTINUE LEVSIN NEEDED RTO 1 YR [facility] Other Evaluation note* Diagnosis First trimester state, [...] Medical History hx of mono Surgical History [place] teeth x4 [facility] Other History general Narrative - Reported* Type Description Date Medical History scoliosis Medical History hx of mono Surgical History [place] teeth x4 Surgical History C section [facility] Other Summary Purpose Family History No Family History Records FoundNo Family History Records FoundNo Family History Records FoundNo Family History Records Found Advance Directives No Advanced Directives Records FoundNo Advanced Directives Records FoundNo Advanced Directives Records FoundNo Advanced Directives Records Found Additional Source Comments INFORMATION SOURCE (unrecogn ized section and content) DATE CREATED AUTHOR 02/27/2021 [facility] DATE CREATED AUTHOR AUTHOR'S ORGANIZ ATION 07/24/2022 [facility] DATE CREATED AUTHOR AUTHOR'S ORGANIZ ATION 08/08/2022 [facility] DATE CREATED AUTHOR AUTHOR'S ORGANIZ ATION 07/06/2024 [facility] EPIC REASON FOR VISIT [...] BE BASED ON THE PRIMARY CLINICAL RECORDS. [employer] provides no warranty or guarantee of the accuracy or completeness of information in this document.
[2024-07-07 11:40] VITALS: BP 122/84; PULSE 83; TEMP 36.9; O2SAT 96
--- NOTE | 2024-07-07 12:26 | PC.NURSE ---
1035- arrives with mother for follow up visit. Mother states will not latch to breast, so has been feeding 2 oz. of pumped breastmilk every 2-3 hours. Adequate voids and yellow stool. Infant assessed and weight obtained. to breast on R side with shield, deep latch and active suck noted, occasional swallows at breast, maintains latch for 7 minutes on this side. 1100-Infant to L side, arching and crying at breast, assisted into football hold, infant latches with deep latch on shield, active suck with intermittent swallowing, maintains latch for 7 minutes. 1110- fed 50ml of pumped breast milk per bottle. Mother educated on slow-paced bottle feeding, states that will sometimes choke and stop breathing with bottle. Discussed suck, swallow, breathing with 37 week GA , does choke on bottle at end of feeding and becomes dusky in lips for 3-4 secs, mother sits infant upright and pats back and lips immediately pink and breathing non-labored. HR- 140, RR-40 Spo2- 97% immediately after episode. [place] lung sounds clear. Discussed respiratory s/s that would indicate infant needs immediately evaluation, verbalizes understanding. 1150- Feeding plan reviewed to continue to latch to breast with shield and feed 10 minutes/ side, unless vigorous and frequent swallow noted. After feeding at breast, feed 1-2 oz. of pumped breastmilk and continuing current pumping schedule, mother verbalizes understanding. Follow up visit scheduled 1200- Discharged home in stable condition.
== END 2024-07-07 08:27 | disposition home or self-care (01) ==
PROVIDERS: PCP Nurse Practitioner Family; Visit Provider Obstetrics & Gynecology
DX: Z39.1 Encounter for care and examination of lactating mother (principal)
CPT/HCPCS: G0463

== ENCOUNTER 2024-07-12 07:59 | Outpatient (OUT) | payer BC, SELFPAY ==
--- NOTE | 2024-07-12 11:03 | PC.NURSE ---
1030- Patient arrives with for visit. [place] asleep, mother states she is eating every 2-3 hours, a few minutes at the breast then 2 oz. of pumped breast milk, slow paced bottle fed. Mother states she is pumping 10-14 oz each pumping session, and pumps 3 times per day. Educated mother on potential need to pump every 4 hours during the day to maintain the milk supply, verbalizes understanding. States infant will go to breast for about 5 minutes each side, with the shield, but will not maintain a vigorous suck or swallow. weighed 7# 2 oz., 3220 grams. Infant to breast, latches to Right side without a shield, sucks a few time then falls asleep, previous feeding was at 0900. Attempt to re-latch however remains asleep. 1045- Plan of care reviewed to increase pumping schedule, also recommended to pump for 3-5 minutes prior to feeding, then latch to breast so that the milk is flowing and encourage infant to maintain vigorous latch, verbalizes understanding. follow up offered, pt. states will call for an appt. 1055- Discharged home with infant.
== END 2024-07-12 11:00 | disposition home or self-care (01) ==
LOC: FBCO 08:00
PROVIDERS: PCP Nurse Practitioner Family; Visit Provider Obstetrics & Gynecology
DX: Z39.1 Encounter for care and examination of lactating mother (principal)

== ENCOUNTER 2024-07-14 01:44 | Emergency (ER) | payer BC, SELFPAY ==
[2024-07-14 01:46] VITALS: BP 144/90; PULSE 72; TEMP 36.6; O2SAT 98; BMI 31.9
--- OUTSIDE RECORDS SUMMARY | 2024-07-14 01:51 | XMS_ITS | CCD ---
Author Organization [facility] Care Team Providers Care Cattle Sorter Name Role Phone Ben Rose Unavailable Mikael PHARMACY MANAGER-C, Angeles A Admitting Unavailable Mikael PHARMACY MANAGER-C, Angeles A Attending Unavailable Mikael PHARMACY MANAGER-C, Angeles A Primary Care Unavailable Mikael PHARMACY MANAGER-C, Angeles A Attending Unavailable Mikael PHARMACY MANAGER-C, Angeles A Primary Care Unavailable NOVA [...] NOVA ., DR MORGAN Consulting Unavailable MIKAEL, ANGEELS Primary Care Unavailable NOVA ., DR MORGAN [...] (3 sources) Penicillin G Drug Allergy Unknown [email or web address] Other (1 source) busPIRone; Translations: [buspirone hcl] Drug Allergy [facility] Repository (1 source) Coconut extract; Translations: [coconut] Drug Allergy [facility] Repository (20 sources) Penicillins; Translations: [penicillins] Propensity to adverse reactions to drug (disorder) 3 Rash [facility] Repository (1 source) Amoxicillin Drug Allergy [facility] Repository (1 source) Penicillin Drug Allergy [facility] Repository (20 sources) busPIRone Drug [...] Discontinued Start: 10-29-2023 take [facility] esomeprazole (NexIUM) 40 MG [...] UA Negative Negative - 4(70) +++ mg/dL [facility] Blood, UA Positive Negative - 50 Daniel/mcL [facility] Clarity, UA Clear [facility] Color, UA Yellow [facility] Glucose, UA Negative Negative - 2000(110) ++++ mg/dL [facility] Interpretation and review of laboratory results Abnormal [facility] Ketones, UA Negative Negative - 160(16) ++++ mg/dL [facility] Leukocytes, UA Negative Negative - 500+++ Gavin/mcL [facility] Nitrite, UA Negative Negative - Positive [facility] pH, UA 7 5 - 9 [facility] Protein, UA Negative Negative - 2000(20) ++++ mg/dL [facility] Spec Grav, UA 1.015 1 - 1.03 [facility] Urobilinogen, UA 0.2 0.2 - 12 mg/dL [facility] UA (CLEAN/CATCH) ADMINISTRATIVE PERSONAL ASSISTANT/AMBERLY RO IF IND.on 06-29-2024 BILIRUBIN URINE Negative NEGATIVE [facility] BLOOD URINE Negative NEGATIVE [facility] Clarity (U) CLEAR CLEAR [facility] Color (U) LT. YELLOW YELLOW [facility] GLUCOSE URINE UA Negative NEGATIVE mg/dL [facility] Interpretation and review of laboratory results Abnormal [facility] Ketones Ql (U) 40 mg/dL Abnormal NEGATIVE [facility] Leukocyte esterase Test strip Ql (U) Negative NEGATIVE [facility] NITRITE URINE Negative NEGATIVE [facility] pH (U) 6.0 [pH] 5.0 - 9.0 [facility] PROTEIN URINE Negative NEG/TRACE mg/dL [facility] SPECIFIC GRAVITY URINE 1.015 1.005 - 1.025 [facility] URINE MICROSCOPIC INDICATED YES [facility] UROBILINOGEN URINE 0.2 EU/dL 0.2 - 1.0 EU/dL [facility] ALL MISCELLANEOUS TESTon MISCELLANEOUS TEST COMMENT . [facility] Comment on above: Test Ordered: [id number] Strep Gp B Culture+Rflx Strep Gp B Culture+Rflx Positive [A ] CB Reference Range: Negative Centers for Disease Control and Prevention (CDC) and [place] [employer] Gynec[employer] (ACOG) guidelines [...] at high risk for anaphylaxis. Performed at: [facility] [address] [id number] [employer] Architect: Jose Alejandro Matthews PhD, Phone: [phone] GROUP B STREP [id number] CULTURE, GROUP B STREP WITH [facility]USCEPTIBILITY [facility] macro (dipstick) panel (U)on 06-07-2024 Bilirubin, UA Negative Negative - 4(70) +++ mg/dL [facility] Blood, UA Negative Negative - 50 Daniel/mcL [facility] Clarity, UA Clear [facility] Color, UA Colorless [facility] Glucose, UA Positive Negative - 2000(110) ++++ mg/dL [facility] Comment on above: 100 Interpretation and review of laboratory results Abnormal [facility] Ketones, UA Negative Negative - 160(16) ++++ mg/dL [facility] Leukocytes, UA Negative Negative - 500+++ Gavin/mcL [facility] Nitrite, UA Negative Negative - Positive [facility] pH, UA 6 5 - 9 [facility] Protein, UA Negative Negative - 2000(20) ++++ mg/dL [facility] Spec Grav, UA 1.005 1 - 1.03 [facility] Urobilinogen, UA 0.2 0.2 - 12 mg/dL [facility] US OB FOLLOW UP TRANSABDOMIN AL APPROACHon [...] UA Negative Negative - 4(70) +++ mg/dL [facility] Blood, UA Positive Negative - 50 Daniel/mcL [facility] Comment on above: TRACE-INTACT Clarity, UA Clear [facility] Color, UA Yellow [facility] Glucose, UA Negative Negative - 1999(110) ++++ mg/dL [facility] Interpretation and review of laboratory results Abnormal [facility] Ketones, UA Negative Negative - 160(16) ++++ mg/dL [facility] Leukocytes, UA Negative Negative - 500+++ Gavin/mcL [facility] Nitrite, UA Negative Negative - Positive [facility] pH, UA 6 5 - 9 [facility] Protein, UA Negative Negative - 2000(20) ++++ mg/dL [facility] Spec Grav, UA 1.005 1 - 1.03 [facility] Urobilinogen, UA 0.2 0.2 - 12 mg/dL [facility] Urinalysis macro (dipstick) panel (U)on 05-11-2024 Bilirubin, UA Negative Negative - 4(70) +++ mg/dL [facility] Blood, UA Negative Negative - 50 Daniel/mcL [facility] Clarity, UA Clear [facility] Color, UA Yellow [facility] Glucose, UA Negative Negative - 1999(110) ++++ mg/dL [facility] Interpretation and review of laboratory results Abnormal [facility] Ketones, UA Negative Negative - 160(16) ++++ mg/dL [facility] Leukocytes, UA Trace Negative - 500+++ Gavin/mcL [facility] Nitrite, UA Negative Negative - Positive [facility] pH, UA 6.5 5 - 9 [facility] Protein, UA Negative Negative - 1999(20) ++++ mg/dL [facility] Spec Grav, UA 1.02 1 - 1.03 [facility] Urobilinogen, UA 0.2 0.2 - 12 mg/dL [facility] Urinalysis macro (dipstick) panel (U)on 04-27-2024 Bilirubin, UA Negative Negative - 4(70) +++ mg/dL [facility] Blood, UA Negative Negative - 50 Daniel/mcL [facility] Clarity, UA Clear [facility] Color, UA Yellow [facility] Glucose, UA Negative Negative - 1999(110) ++++ mg/dL [facility] Interpretation and review of laboratory results Abnormal [facility] Ketones, UA Negative Negative - 160(16) ++++ mg/dL [facility] Leukocytes, UA Trace Negative - 500+++ Gavin/mcL [facility] Nitrite, UA Negative Negative - Positive [facility] pH, UA 7 5 - 9 [facility] Protein, UA Negative Negative - 1999(20) ++++ mg/dL [facility] Spec Grav, UA 1.01 1 - 1.03 [facility] Urobilinogen, UA 0.2 0.2 - 12 mg/dL [facility] ALL CBC WITH AUTO DIFFon BASOPHILS ABSOLUTE AUTO 0 [facility] Basophils/100 WBC (Bld) 0.5 % 0.2 - 2.0 % [facility] Eosinophils/100 WBC (Bld) 0.5 % Low 0.9 - 7.0 % [facility] Erythrocyte distribution width (RBC) [Ratio] 12.9 % 11.0 - 15.0 % [facility] Hematocrit (Bld) [Volume fraction] 33.7 % Low 36.0 - 48.0 % [facility] Hemoglobin (Bld) [Mass/Vol] 10.8 g/dL Low 12.0 - 16.0 g/dL [facility] IMMATURE GRANULOCYTES ABS AUTO 0.04 High [facility] Immature granulocytes/100 WBC (Bld) 0.6 % High 0.0 - 0.5 % [facility] Interpretation and review of laboratory results Abnormal [facility] LYMPHOCYTES ABSOLUTE AUTO 1.3 [facility] Lymphocytes/100 WBC (Bld) 20.2 % Low 20.5 - 60.0 % [facility] MCH (RBC) [Entitic mass] 26.9 pg 26.7 - 34.0 pg [facility] MCHC (RBC) [Mass/Vol] 32 g/dL 29.9 - 35.2 g/dL [facility] MCV (RBC) [Entitic vol] 83.8 fL 81.0 - 99.0 fL [facility] MONOCYTES ABSOLUTE AUTO 0.5 [facility] Monocytes/100 WBC (Bld) 8.6 % 1.7 - 12.0 % [facility] NEUTROPHILS ABSOLUTE AUTO 4.4 [facility] Neutrophils/100 WBC (Bld) 69.6 % 43.0 - 75.0 % [facility] Platelet mean volume (Bld) [Entitic vol] 10.3 fL 9.5 - 13.5 fL [facility] EO # 0 [facility] PLT 200 [facility] RBC 4.02 Low [facility] WBC 6.3 [facility] Urinalysis macro (dipstick) panel (U)on 04-05-2024 Bilirubin, UA Negative Negative - 4(70) +++ mg/dL [facility] Blood, UA Negative Negative - 50 Daniel/mcL [facility] Clarity, UA Clear [facility] Color, UA Yellow [facility] Glucose, UA Negative Negative - 1999(110) ++++ mg/dL [facility] Interpretation and review of laboratory results Normal [facility] Ketones, UA Negative Negative - 160(16) ++++ mg/dL [facility] Leukocytes, UA Negative Negative - 500+++ Gavin/mcL [facility] Nitrite, UA Negative Negative - Positive [facility] pH, UA 5.5 5 - 9 [facility] Protein, UA Negative Negative - 1999(20) ++++ mg/dL [facility] Spec Grav, UA 1.025 1 - 1.03 [facility] Urobilinogen, UA 0.2 0.2 - 12 mg/dL [facility] AFP, SERUM, OPEN SPINA BIFID Aon 02-20-2024 AFP MOM 0.72 . [facility] AFP VALUE 27.2 ng/mL . [facility] COMMENT: Comment . [facility] Comment on above: Tiffanie Petersen , Ph.D., [facility] Director References: Available Upon Request. Multiples Of Median Cutoffs For AFP Elevations Patrick 2.5 Black 2.8 IDD 2.0 Twins 4.5 Abbreviation Definitions IDD - Insulin Dep Diabetes OSBR - Open Spina Bifida Risk For further inquiries contact [employer] [facility] at [phone]. This test was developed and its performance characteristics determined by [employer]. It has not been cleared or approved by the Food and Drug Administration. Performed at: [facility] [address] [place] [id number] [employer] Architect: Tor Real [facility], Phone: [phone] GEST. AGE ON COLLECTION DATE 18.3 . weeks [facility] GESTAT. AGE BASED ON LMP . [facility] Comment on above: Recalculations are n ot recommended when gestational dating by LMP and ultrasound are within 10 days. INSULIN DEP DIABETES No . [facility] INTERPRETATION Comment . [facility] Comment on above: Interpretation: Scre en [...] Customer Services to discuss available options. The [place] [employer] recommends amniocentesis be offered to women age 35 and older. [age] [facility] MULTIPLE GESTATION No . [facility] [place] [id number] . [facility] RACE . [facility] RESULTS Report . [facility] TEST RESULTS: Negative . [facility] WEIGHT 198 . lbs [facility] N N LMP [id number] 17 N 1 Y 198 N N N N N [facility]/ [facility] RECURRENT VAGINITIS (HTRX)on 02-11-2024 ATOPOBIUM VAGINAE 0 [facility] ATOPOBIUM VAGINAE Not detected [facility] BVAB 2,3 (BACTERIAL VAGINOSIS ASSOCIATED BACTERIA 2, 3); MOBILUNCUS SPP 0 [facility] BVAB 2,3 (BACTERIAL VAGINOSIS ASSOCIATED BACTERIA 2, 3); MOBILUNCUS SPP Not detected [facility] MARGARET ALBICANS, PARAPSILOSIS, TROPICALIS 0 [facility] MARGARET ALBICANS, PARAPSILOSIS, TROPICALIS Not detected [facility] MARGARET GLABRATA 0 [facility] MARGARET GLABRATA Not detected [facility] MARGARET KRUSEI 0 [facility] MARGARET KRUSEI Not detected [facility] CHLAMYDIA TRACHOMATIS 0 [facility] CHLAMYDIA TRACHOMATIS Not detected [facility] GARDNERELLA VAGINALIS 0 [facility] GARDNERELLA VAGINALIS Not detected [facility] MEGASPHAERA (TYPES 1, 2) 0 [facility] MEGASPHAERA (TYPES 1, 2) Not detected [facility] MYCOPLASMA GENITALIUM 0 [facility] MYCOPLASMA GENITALIUM Not detected [facility] NEISSERIA GONORRHOEAE 0 [facility] NEISSERIA GONORRHOEAE Not detected [facility] TRICHOMONAS VAGINALIS 0 [facility] TRICHOMONAS VAGINALIS Not detected [facility] Urinalysis macro (dipstick) panel (U)on 02-09-2024 Bilirubin, UA Negative Negative - 4(70) +++ mg/dL [facility] Blood, UA Negative Negative - 50 Daniel/mcL [facility] Clarity, UA Clear [facility] Color, UA Yellow [facility] Glucose, UA Negative Negative - 1999(110) ++++ mg/dL [facility] Interpretation and review of laboratory results Normal [facility] Ketones, UA Negative Negative - 160(16) ++++ mg/dL [facility] Leukocytes, UA Negative Negative - 500+++ Gavin/mcL [facility] Nitrite, UA Negative Negative - Positive [facility] pH, UA 5.5 5 - 9 [facility] Protein, UA Negative Negative - 1999(20) ++++ mg/dL [facility] Spec Grav, UA 1.02 1 - 1.03 [facility] Urobilinogen, UA 0.2 0.2 - 12 mg/dL [facility] ALL CBC WITH AUTO DIFFon BASOPHILS ABSOLUTE AUTO 0.0 [facility] Basophils/100 WBC (Bld) 0.1 % Low 0.2 - 2.0 % [facility] Eosinophils/100 WBC (Bld) 1.0 % 0.9 - 7.0 % [facility] Erythrocyte distribution width (RBC) [Ratio] 13.2 % 11.0 - 15.0 % [facility] Hematocrit (Bld) [Volume fraction] 36.4 % 36.0 - 48.0 % [facility] Hemoglobin (Bld) [Mass/Vol] 11.9 g/dL Low 12.0 - 16.0 g/dL [facility] IMMATURE GRANULOCYTES ABS AUTO 0.01 [facility] Immature granulocytes/100 WBC (Bld) 0.1 % 0.0 - 0.5 % [facility] Interpretation and review of laboratory results Abnormal [facility] LYMPHOCYTES ABSOLUTE AUTO 1.5 [facility] Lymphocytes/100 WBC (Bld) 22.8 % 20.5 - 60.0 % [facility] MCH (RBC) [Entitic mass] 28.1 pg 26.7 - 34.0 pg [facility] MCHC (RBC) [Mass/Vol] 32.7 g/dL 29.9 - 35.2 g/dL [facility] MCV (RBC) [Entitic vol] 86.1 fL 81.0 - 99.0 fL [facility] MONOCYTES ABSOLUTE AUTO 0.4 [facility] Monocytes/100 WBC (Bld) 6.0 % 1.7 - 12.0 % [facility] NEUTROPHILS ABSOLUTE AUTO 4.7 [facility] Neutrophils/100 WBC (Bld) 70.0 % 43.0 - 75.0 % [facility] Platelet mean volume (Bld) [Entitic vol] 10.7 fL 9.5 - 13.5 fL [facility]1 [facility] PLT 213 [facility] RBC 4.23 [facility] WBC 6.7 [facility] Urinalysis macro (dipstick) panel (U)on 01-07-2024 Bilirubin, UA Negative Negative - 4(70) +++ mg/dL [facility] Blood, UA Negative Negative - 50 Daniel/mcL [facility] Clarity, UA Clear [facility] Color, UA Yellow [facility] Glucose, UA Negative Negative - 2000(110) ++++ mg/dL [facility] Interpretation and review of laboratory results Normal [facility] Ketones, UA Negative Negative - 160(16) ++++ mg/dL [facility] Leukocytes, UA Negative Negative - 500+++ Gavin/mcL [facility] Nitrite, UA Negative Negative - Positive [facility] pH, UA 6.5 5 - 9 [facility] Protein, UA Negative Negative - 2000(20) ++++ mg/dL [facility] Spec Grav, UA 1.020 1 - 1.03 [facility] Urobilinogen, UA 1.0 0.2 - 12 mg/dL [facility] ALL CBC WITH AUTO DIFFon BASOPHILS ABSOLUTE AUTO 0.0 [facility] Basophils/100 WBC (Bld) 0.3 % 0.2 - 2.0 % [facility] Eosinophils/100 WBC (Bld) 0.9 % 0.9 - 7.0 % [facility] Erythrocyte distribution width (RBC) [Ratio] 13.0 % 11.0 - 15.0 % [facility] Hematocrit (Bld) [Volume fraction] 39.1 % 36.0 - 48.0 % [facility] Hemoglobin (Bld) [Mass/Vol] 12.8 g/dL 12.0 - 16.0 g/dL [facility] IMMATURE GRANULOCYTES ABS AUTO 0.02 [facility] Immature granulocytes/100 WBC (Bld) 0.3 % 0.0 - 0.5 % [facility] Interpretation and review of laboratory results Abnormal [facility] LYMPHOCYTES ABSOLUTE AUTO 1.6 [facility] Lymphocytes/100 WBC (Bld) 20.4 % Low 20.5 - 60.0 % [facility] MCH (RBC) [Entitic mass] 27.8 pg 26.7 - 34.0 pg [facility] MCHC (RBC) [Mass/Vol] 32.7 g/dL 29.9 - 35.2 g/dL [facility] MCV (RBC) [Entitic vol] 84.8 fL 81.0 - 99.0 fL [facility] MONOCYTES ABSOLUTE AUTO 0.6 [facility] Monocytes/100 WBC (Bld) 7.1 % 1.7 - 12.0 % [facility] NEUTROPHILS ABSOLUTE AUTO 5.5 [facility] Neutrophils/100 WBC (Bld) 71.0 % 43.0 - 75.0 % [facility] Platelet mean volume (Bld) [Entitic vol] 10.2 fL 9.5 - 13.5 fL [facility] EO # 0.1 [facility] PLT 254 [facility] RBC 4.61 [facility] WBC 7.7 [facility] Urinalysis macro (dipstick) panel (U)on 12-17-2023 Bilirubin, UA Negative Negative - 4(70) +++ mg/dL [facility] Blood, UA Negative Negative - 50 Daniel/mcL [facility] Clarity, UA Clear [facility] Color, UA Yellow [facility] Glucose, UA Negative Negative - 1999(110) ++++ mg/dL [facility] Interpretation and review of laboratory results Abnormal [facility] Ketones, UA Positive Negative - 160(16) ++++ mg/dL [facility] Comment on above: 15 Leukocytes, UA Negative Negative - 500+++ Gavin/mcL [facility] Nitrite, UA Negative Negative - Positive [facility] pH, UA 6.5 5 - 9 [facility] Protein, UA Negative Negative - 1999(20) ++++ mg/dL [facility] Spec Grav, UA 1.030 1 - 1.03 [facility] Urobilinogen, UA 1.0 0.2 - 12 mg/dL [facility] HCG ( test) Ql (U)o n 12-12-2023 Interpretation and review of laboratory results Abnormal [facility] Preg Test, Ur Positive [facility] Urinalysis macro (dipstick) panel (U)on 12-12-2023 Bilirubin, UA Positive Negative - 4(70) +++ mg/dL [facility] Comment on above: small Blood, UA Negative Negative - 50 Daniel/mcL [facility] Clarity, UA Clear [facility] Color, UA Yellow [facility] Glucose, UA Negative Negative - 2000(110) ++++ mg/dL [facility] Interpretation and review of laboratory results Abnormal [facility] Ketones, UA Positive Negative - 160(16) ++++ mg/dL [facility] Comment on above: trace Leukocytes, UA Negative Negative - 500+++ Gavin/mcL [facility] Nitrite, UA Negative Negative - Positive [facility] pH, UA 6.0 5 - 9 [facility] Protein, UA Positive Negative - 1999(20) ++++ mg/dL [facility] Comment on above: 30 Spec Grav, UA 1.030 1 - 1.03 [facility] Urobilinogen, UA 0.2 0.2 - 12 mg/dL [facility] Cytology Cervical or vaginal smear or scraping studyon 03-05-2023 [facility] CBC AUTO DIFFon 07-25-2022 BASO # 0.0 103/ul Normal 0.0-0.1 [facility] Comment on above: Performed By: #### C BC #### [facility] [address] [place] [address] Dr. Jerry Samuel Basophils/100 WBC (Bld) 0.3 % Normal 0.2-2.0 [facility] Comment on above: Performed By: #### C BC #### [facility] [address] [place] [address] Dr. Jerry Samuel EO # 0.1 103/ul Normal 0.0-0.7 [facility] Comment on above: Performed By: #### C BC #### [facility] [address] [place] [address] Dr. Jerry Samuel Eosinophils/100 WBC (Bld) 1.4 % Normal 0.9-7.0 [facility] Comment on above: Performed By: #### C BC #### [facility] [address] [place] [address] Dr. Jerry Samuel Erythrocyte distribution width (RBC) [Ratio] 13.2 % Normal 11.0-15.0 [facility] Comment on above: Performed By: #### C BC #### [facility] [address] [place] [address] Dr. Jerry Samuel Hematocrit (Bld) [Volume fraction] 33.9 % Critically low 36.0-48.0 [facility] Comment on above: Performed By: #### C BC #### [facility] [address] [place] [address] Dr. Jerry Samuel Hemoglobin (Bld) [Mass/Vol] 11.3 g/dL Critically low 12.0-16.0 [facility] Comment on above: Performed By: #### C BC #### [facility] [address] [place] [address] Dr. Jerry Samuel IG # 0.04 10e3/ul Critically high 0.00-0.03 [facility] Comment on above: Performed By: #### C BC #### [facility] [address] [place] [address] Dr. Jerry Samuel IG % 0.6 % Critically high 0.0-0.5 [facility] Comment on above: Performed By: #### C BC #### [facility] [address] [place] [address] Dr. Jerry Samuel LYMPH # 1.9 103/ul Normal 1.2-3.8 [facility] Comment on above: Performed By: #### C BC #### [facility] [address] [place] [address] Dr. Jerry Samuel Lymphocytes/100 WBC (Bld) 30.2 % Normal 20.5-60.0 [facility] Comment on above: Performed By: #### C BC #### [facility] [address] [place] [address] Dr. Jerry Samuel MANUAL DIFF REQ NO Normal [facility] Comment on above: Performed By: #### C BC #### [facility] [address] [place] [address] Dr. Jerry Samuel MCH (RBC) [Entitic mass] 29.9 pg Normal 26.7-34.0 [facility] Comment on above: Performed By: #### C BC #### [facility] [address] [place] [address] Dr. Jerry Samuel MCHC (RBC) [Mass/Vol] 33.3 g/dL Normal 29.9-35.2 [facility] Comment on above: Performed By: #### C BC #### [facility] [address] [place] [address] Dr. Jerry Samuel MCV (RBC) [Entitic vol] 89.7 fL Normal 81.0-99.0 [facility] Comment on above: Performed By: #### C BC #### [facility] [address] [place] [address] Dr. Jerry Samuel MONO # 0.5 103/ul Normal 0.3-0.8 [facility] Comment on above: Performed By: #### C BC #### [facility] [address] [address] [address] Jerry Samuel Monocytes/100 WBC (Bld) 7.2 % Normal 1.7-12.0 [facility] Comment on above: Performed By: #### C BC #### [facility] [address] [address] [address] Jerry Samuel NEUT # 3.8 103/ul Normal 1.4-6.5 [facility] Comment on above: Performed By: #### C BC #### [facility] [address] [address] [address] Jerry Samuel Neutrophils/100 WBC (Bld) 60.3 % Normal 43.0-75.0 [facility] Comment on above: Performed By: #### C BC #### [facility] [address] [place] [address] Dr. Jerry Samuel Platelet mean volume (Bld) [Entitic vol] 9.8 fL Normal 9.5-13.5 [facility] Comment on above: Performed By: #### C BC #### [facility] [address] [place] [address] Dr. Jerry Samuel PLT 188 103/ul Normal 150-450 [facility] Comment on above: Performed By: #### C BC #### [facility] [address] [address] [address] Jerry Samuel RBC 3.78 106/ul Critically low 4.20-5.40 [facility] Comment on above: Performed By: #### C BC #### [facility] [address] [address] [address] Jerry Samuel WBC 6.2 103/ul Normal 4.0-11.0 [facility] Comment on above: Performed By: #### C BC #### [facility] [address] [place] [address] Dr. Jerry Samuel GLUCOSE - 1HRon 07-25-2022 Glucose [Mass/Vol] 100 mg/dL Normal 74-106 [facility] Comment on above: Performed By: #### N BOX #### [facility] [address] [place], [place] [address] Dr. Jerry Samuel US PREG ANATOMY SINGLEon [...] ABRIL SCANLON Date: 2022-07-02 13:45 Normal [facility] AFP MATERNAL FOR SPINA BIFID Aon 06-14-2022 AFP MoM 0.87 Normal [facility] Comment on above: Performed By: #### R PRQ #### [facility] [address] [place], [place] [address] Dr. Jerry Samuel AFP Value 39.6 ng/mL Normal [facility] Comment on above: Performed By: #### R PRQ #### [facility] [address] [place] [address] Dr. Jerry Samuel AFP, Serum for Spina Bifida Report Normal [facility] Comment on above: Performed By: #### R PRQ #### [facility] [address] [place] [address] Dr. Jerry Samuel Comment Comment Normal [facility] Comment on above: Result Comment: Irina Petersen, Ph.D., [facility] Director . References: Available Upon Request. . Multiples Of Median Cutoffs For AFP Elevations Patrick 2.5 Black 2.8 IDD 2.0 Twins 4.5 Abbreviation Definitions IDD - Insulin Dep Diabetes OSBR - Open Spina Bifida Risk . For further inquiries contact [employer] [facility] at [phone]. . This test was developed and its performance characteristics determined by [employer]. It has not been cleared or approved by the Food and Drug Administration. Performed By: #### R PRQ #### [facility] [address] [place] [address] Dr. Jerry Samuel Gest Age Collection Date 18.9 weeks Normal [facility] Comment on above: Performed By: #### R PRQ #### [facility] [address] [place] [address] Dr. Jerry Samuel Gestat, Age Based on Ultrasound Normal [facility] Comment on above: Result Comment: 09.0 on 04/04/2022 Recalculations are not recommended when gestational dating by LMP and ultrasound are within 10 days. Performed By: #### R PRQ #### [facility] [address] [place] [address] Dr. Jerry Samuel Insulin Dep Diabetes No Normal [facility] Comment on above: Performed By: #### R PRQ #### [facility] [address] [place] [address] Dr. Jerry Samuel Interpretation Comment Normal [facility] Comment on above: Result Comment: Inte [...] Customer Services to discuss available options. The [employer] recommends amniocentesis be offered to women age 35 and older. Performed By: #### R PRQ #### [facility] [address] [place] [address] Dr. Jrery Samuel [age] Normal [facility] Comment on above: Performed By: #### R PRQ #### [facility] [address] [place] [address] Dr. Jerry Samuel Multiple Gestation No Normal [facility] Comment on above: Performed By: #### R PRQ #### [facility] [address] [place] [address] Dr. Jerry Samuel [place] [address] Normal [facility] Comment on above: Performed By: #### R PRQ #### [facility] [address] [address] [address] Jerry Samuel PDF . Normal [facility] Comment on above: Performed By: #### R PRQ #### [facility] [address] [place] [address] Dr. Jerry Samuel Race Normal [facility] Comment on above: Performed By: #### R PRQ #### [facility] [address] [place] [address] Dr. Jerry Samuel Test Results: Negative Normal [facility] Comment on above: Performed By: #### R PRQ #### [facility] [address] [place] [address] Dr. Jerry Samuel CHLAMYDIA/GONOCOCCUS ELINOR (SW AB/URINE/PAPon 06-07-2022 Chlamydia trachomatis, ELINOR Negative Normal Negative [facility] Comment on above: Performed By: #### R PRQ #### [facility] [address] [place] [address] Dr. Jerry Samuel Neisseria gonorrhoeae, ELINOR Negative Normal Negative [facility] Comment on above: Performed By: #### R PRQ #### [facility] [address] [place] [address] Dr. Jerry Samuel VAGINITIS/VAGINOSIS DNA PROB Nayan 06-06-2022 Margaret species Negative Normal Negative [facility] Comment on above: Performed By: #### V AGINT #### [facility] [address] [place] [address] Dr. Jerry Samuel Gardnerella vaginalis Negative Normal Negative [facility] Comment on above: Performed By: #### V AGINT #### [facility] [address] [place] [address] Dr. Jerry Samuel Trichomonas vaginalis Negative Normal Negative [facility] Comment on above: Performed By: #### V AGINT #### [facility] [address] [place] [address] Dr. Jerry Samuel CBC AUTO DIFFon 05-26-2022 BASO # 0.0 103/ul Normal 0.0-0.1 [facility] Comment on above: Performed By: #### C BC #### [facility] [address] [place] [address] Dr. Jerry Samuel Basophils/100 WBC (Bld) 0.1 % Critically low 0.2-2.0 [facility] Comment on above: Performed By: #### C BC #### [facility] [address] [place] [address] Dr. Jerry Samuel EO # 0.0 103/ul Normal 0.0-0.7 [facility] Comment on above: Performed By: #### C BC #### [facility] [address] [place] [address] Dr. Jerry Samuel Eosinophils/100 WBC (Bld) 0.4 % Critically low 0.9-7.0 [facility] Comment on above: Performed By: #### C BC #### [facility] [address] [place] [address] Dr. Jerry Samuel Erythrocyte distribution width (RBC) [Ratio] 12.6 % Normal 11.0-15.0 [facility] Comment on above: Performed By: #### C BC #### [facility] [address] [place] [address] Dr. Jeryr Samuel Hematocrit (Bld) [Volume fraction] 34.0 % Critically low 36.0-48.0 [facility] Comment on above: Performed By: #### C BC #### [facility] [address] [place] [address] Dr. Jerry Samuel Hemoglobin (Bld) [Mass/Vol] 11.6 g/dL Critically low 12.0-16.0 [facility] Comment on above: Performed By: #### C BC #### [facility] [address] [place] [address] Dr. Jerry Samuel IG # 0.03 10e3/ul Normal 0.00-0.03 [facility] Comment on above: Performed By: #### C BC #### [facility] [address] [place] [address] Dr. Jerry Samuel IG % 0.4 % Normal 0.0-0.5 [facility] Comment on above: Performed By: #### C BC #### [facility] [address] [place] [address] Dr. Jerry Samuel LYMPH # 1.1 103/ul Critically low 1.2-3.8 [facility] Comment on above: Performed By: #### C BC #### [facility] [address] [place] [address] Dr. Jerry Samuel Lymphocytes/100 WBC (Bld) 16.5 % Critically low 20.5-60.0 [facility] Comment on above: Performed By: #### C BC #### [facility] [address] [place] [address] Dr. Jerry Samuel MANUAL DIFF REQ NO Normal [facility] Comment on above: Performed By: #### C BC #### [facility] [address] [place] [address] Dr. Jerry Samuel MCH (RBC) [Entitic mass] 29.1 pg Normal 26.7-34.0 [facility] Comment on above: Performed By: #### C BC #### [facility] [address] [place] [address] Dr. Jerry Samuel MCHC (RBC) [Mass/Vol] 34.1 g/dL Normal 29.9-35.2 [facility] Comment on above: Performed By: #### C BC #### [facility] [address] [place] [address] Dr. Jerry Samuel MCV (RBC) [Entitic vol] 85.2 fL Normal 81.0-99.0 [facility] Comment on above: Performed By: #### C BC #### [facility] [address] [place] [address] Dr. Jerry Samuel MONO # 0.4 103/ul Normal 0.3-0.8 [facility] Comment on above: Performed By: #### C BC #### [facility] [address] [place] [address] Dr. Jerry Samuel Monocytes/100 WBC (Bld) 6.0 % Normal 1.7-12.0 [facility] Comment on above: Performed By: #### C BC #### [facility] [address] [place] [address] Dr. Jerry Samuel NEUT # 5.1 103/ul Normal 1.4-6.5 [facility] Comment on above: Performed By: #### C BC #### [facility] [address] [place] [address] Dr. Jerry Samuel Neutrophils/100 WBC (Bld) 76.6 % Critically high 43.0-75.0 [facility] Comment on above: Performed By: #### C BC #### [facility] [address] [place] [address] Dr. Jerry Samuel Platelet mean volume (Bld) [Entitic vol] 10.5 fL Normal 9.5-13.5 [facility] Comment on above: Performed By: #### C BC #### [facility] [address] [place] [address] Dr. Jerry Samuel PLT 207 103/ul Normal 150-450 [facility] Comment on above: Performed By: #### C BC #### [facility] [address] [place] [address] Dr. Jerry Samuel RBC 3.99 106/ul Critically low 4.20-5.40 [facility] Comment on above: Performed By: #### C BC #### [facility] [address] [place] [address] Dr. Jerry Samuel WBC 6.7 103/ul Normal 4.0-11.0 [facility] Comment on above: Performed By: #### C BC #### [facility] [address] [place] [address] Dr. Jerry Samuel ER URINE PROFILEon 3 Bilirubin Ql (U) Negative Normal NEGATIVE [facility] Comment on above: Performed By: #### E RUR #### [facility] [address] [place] [address] Dr. Jerry Samuel Clarity (U) CLEAR Normal CLEAR [facility] Comment on above: Performed By: #### E RUR #### [facility] [address] [place] [address] Dr. Jerry Samuel Color (U) LT. YELLOW Normal YELLOW [facility] Comment on above: Performed By: #### E RUR #### [facility] [address] [place] [address] Dr. Jerry Samuel ERUAHD A micrscopic examina tion will be performed if indicated. Normal [facility] Comment on above: Performed By: #### E RUR #### [facility] [address] [place] [address] Dr. Jerry Samuel Glucose Ql (U) Negative Normal NEGATIVE [facility] Comment on above: Performed By: #### E RUR #### [facility] [address] [place] [address] Dr. Jerry Samuel Hemoglobin Ql (U) Negative Normal NEGATIVE [facility] Comment on above: Performed By: #### E RUR #### [facility] [address] [place] [address] Dr. Jerry Samuel Ketones Ql (U) Negative Normal NEGATIVE [facility] Comment on above: Performed By: #### E RUR #### [facility] [address] [place] [address] Dr. Jerry Samuel LEUKOCYTES Negative Normal NEGATIVE [facility] Comment on above: Performed By: #### E RUR #### [facility] [address] [place] [address] Dr. Jerry Samuel Nitrite Ql (U) Negative Normal NEGATIVE [facility] Comment on above: Performed By: #### E RUR #### [facility] [address] [place] [address] Dr. Jerry Samuel pH (U) 6.5 [pH] Normal 5-9 [facility] Comment on above: Performed By: #### E RUR #### [facility] [address] [place] [address] Dr. Jerry Samuel SPEC GRAVITY <=1.005 Abnormal 1.005-<=1.025 [facility] Comment on above: Performed By: #### E RUR #### [facility] [address] [place] [address] Dr. Jerry Samuel UA PROTEIN Negative Normal NEGATIVE/ TRACE [facility] Comment on above: Performed By: #### E RUR #### [facility] [address] [place] [address] Dr. Jerry Samuel UR MICRO IND NOT INDICATED Normal [facility] Comment on above: Performed By: #### E RUR #### [facility] [address] [place] [address] Dr. Jerry Samuel Urobilinogen Qn (U) 0.2 {Charlette'U}/dL Normal 0.2 - 1. 0 [facility] Comment on above: Performed By: #### E RUR #### [facility] [address] [place] [address] Dr. Jerry Samuel PROF 14(COMP METB)on 023 Albumin [Mass/Vol] 3.4 g/dL Normal 3.4-5.0 [facility] Comment on above: Performed By: #### R PRQ #### [facility] [address] [place] [address] Dr. Jerry Samuel Albumin/Globulin [Mass ratio] 1.0 {ratio} Normal [facility] Comment on above: Performed By: #### R PRQ #### [facility] [address] [address] [address] Jerry Samuel ALP [Catalytic activity/Vol] 33 U/L Critically low 46-116 [facility] Comment on above: Performed By: #### R PRQ #### [facility] [address] [address] [address] Jerry Samuel ALT [Catalytic activity/Vol] 16 U/L Normal 14-59 [facility] Comment on above: Performed By: #### R PRQ #### [facility] [address] [address] [address] Jerry Samuel Anion gap [Moles/Vol] 8.5 mmol/L Normal [facility] Comment on above: Performed By: #### R PRQ #### [facility] [address] [address] [address] Jerry Samuel AST [Catalytic activity/Vol] 12 U/L Critically low 15-37 [facility] Comment on above: Performed By: #### R PRQ #### [facility] [address] [address] [address] Jerry Samuel Bilirubin [Mass/Vol] 0.3 mg/dL Normal 0.2-1.0 [facility] Comment on above: Performed By: #### R PRQ #### [facility] [address] [address] [address] Jerry Samuel Calcium [Mass/Vol] 9.2 mg/dL Normal 8.5-10.1 [facility] Comment on above: Performed By: #### R PRQ #### [facility] [address] [address] [address] Jerry Samuel Chloride [Moles/Vol] 105 mmol/L Normal 98-107 [facility] Comment on above: Performed By: #### R PRQ #### [facility] [address] [address] [address] Jerry Samuel CO2 [Moles/Vol] 25.0 mmol/L Normal 21.0-32.0 [facility] Comment on above: Performed By: #### R PRQ #### [facility] [address] [place] [address] Dr. Jerry Samuel Creatinine [Mass/Vol] 0.40 mg/dL Critically low 0.55-1.02 [facility] Comment on above: Performed By: #### R PRQ #### [facility] [address] [address] [address] Jerry Samuel EGFR-AF CENTRAL AFRICAN >60 Normal >=60 [facility] Comment on above: Performed By: #### R PRQ #### [facility] [address] [address] [address] Jerry Samuel EGFR-NON AF CENTRAL AFRICAN >60 Normal >=60 [facility] Comment on above: Performed By: #### R PRQ #### [facility] [address] [place] [address] Dr. Jerry Samuel Globulin (S) [Mass/Vol] 3.5 g/dL Normal [facility] Comment on above: Performed By: #### R PRQ #### [facility] [address] [address] [address] Jerry Samuel Glucose [Mass/Vol] 94 mg/dL Normal 74-106 [facility] Comment on above: Performed By: #### R PRQ #### [facility] [address] [place] [address] Dr. Jerry Samule Potassium [Moles/Vol] 3.5 mmol/L Normal 3.5-5.1 [facility] Comment on above: Performed By: #### R PRQ #### [facility] [address] [address] [address] Jerry Samuel Protein [Mass/Vol] 6.9 g/dL Normal 6.4-8.2 [facility] Comment on above: Performed By: #### R PRQ #### [facility] [address] [place] [address] Dr. Jerry Samuel Sodium [Moles/Vol] 135 mmol/L Critically low 136-145 [facility] Comment on above: Performed By: #### R PRQ #### [facility] [address] [place] [address] Dr. Jerry Samuel Urea nitrogen [Mass/Vol] 6.0 mg/dL Critically low 7.0-18.0 [facility] Comment on above: Performed By: #### R PRQ #### [facility] [address] [place] [address] Dr. Jerry Samuel Urea nitrogen/Creatinine [Mass ratio] 15.0 mg/mg Normal [facility] Comment on above: Performed By: #### R PRQ #### [facility] [address] [place] [address] Dr. Jerry Samuel DOROTEO BOX TEST PT SEND OUTo n 05-02-2022 SENT TO REF LAB 05/02/2022 Normal [facility] Comment on above: Performed By: #### N BOX #### [facility] [address] [place] [address] Dr. Jerry Samuel HEP B SURFACE ANTIGEN SCREEN on 04-05-2022 HBsAg Screen Negative Normal Negative [facility] Comment on above: Performed By: #### N BOX #### [facility] [address] [place] [address] Dr. Jerry Samuel HEPATITIS C VIRUS AB W/ REFL EX QUANTon 04-05-2022 HCV AB <0.1 Normal 0.0-0.9 [facility] Comment on above: Performed By: #### H CVPCRR #### [facility] [address] [place] [address] Dr. Jerry Samuel Interpretation: Comment Normal [facility] Comment on above: Result Comment: Nega tive Not infected with HCV, unless recent infection is suspected or other evidence exists to indicate HCV infection. Performed By: #### H CVPCRR #### [facility] [address] [place] [address] Dr. Jerry Samuel HIV 1 AND 2 WITH REFLEXon HIV Screen 4th Generation wRfx Non-Reactive Normal Non Reactive [facility] Comment on above: Result Comment: HIV Negative HIV-1/HIV-2 antibodies and HIV-1 p24 antigen were NOT detected. There is no laboratory evidence of HIV infection. Performed By: #### R PRQ #### [facility] [address] [place] [address] Dr. Jerry Samuel RPR QUANTon 04-05-2022 Rapid Plasma Reagin, Quant Non-Reactive Normal NonRea<1:1 [facility] Comment on above: Result Comment: Nathaly wilkes Note: This test does not meet current guidelines for screening and diagnosis of syphilis. This test is intended for following treatment response in patients being treated for syphilis infection. To screen for syphilis infection, a reflex cascade that includes both RPR and a treponema-specific assay should be utilized, such as Treponema pallidum (Syphilis) Screening [place] (481578) or Rapid Plasma Reagin (RPR) Test With Reflex to Quantitative RPR and Confirmatory Treponema pallidum Antibodies (903821). Performed By: #### R PRQ #### [facility] [address] [place] [address] Dr. Jerry Samuel RUBELLA AB IGGon 04-05-2022 Rubella Antibodies, IgG 1.97 index Normal Immune >0.99 [facility] Comment on above: Result Comment: Non- immune <0.90 Equivocal 0.90 - 0.99 Immune >0.99 Performed By: #### R UBIGG #### [facility] [address] [place] [address] Dr. Jerry Samuel CBC AUTO DIFFon 04-04-2022 BASO # 0.0 103/ul Normal 0.0-0.1 [facility] [facility] Comment on above: Performed By: #### R PRQ #### [facility] [address] [place] [address] Dr. Jerry Samuel Basophils/100 WBC (Bld) 0.3 % Normal 0.2-2.0 [facility] Comment on above: Performed By: #### R PRQ #### [facility] [address] [place] [address] Dr. Jerry Samuel EO # 0.1 103/ul Normal 0.0-0.7 [facility] Comment on above: Performed By: #### R PRQ #### [facility] [address] [place] [address] Dr. Jerry Samuel Eosinophils/100 WBC (Bld) 0.7 % Critically low 0.9-7.0 [facility] Comment on above: Performed By: #### R PRQ #### [facility] [address] [place] [address] Dr. Jerry Samuel Erythrocyte distribution width (RBC) [Ratio] 12.3 % Normal 11.0-15.0 [facility] Comment on above: Performed By: #### R PRQ #### [facility] [address] [place] [address] Dr. Jerry Samuel Hematocrit (Bld) [Volume fraction] 35.1 % Critically low 36.0-48.0 [facility] Comment on above: Performed By: #### R PRQ #### [facility] [address] [place] [address] Dr. Jerry Samuel Hemoglobin (Bld) [Mass/Vol] 11.8 g/dL Critically low 12.0-16.0 [facility] Comment on above: Performed By: #### R PRQ #### [facility] [address] [place] [address] Dr. Jerry Samuel IG # 0.02 10e3/ul Normal 0.00-0.03 [facility] Comment on above: Performed By: #### R PRQ #### [facility] [address] [place] [address] Dr. Jerry Samuel IG % 0.3 % Normal 0.0-0.5 [facility] Comment on above: Performed By: #### R PRQ #### [facility] [address] [place] [address] Dr. Jerry Samule LYMPH # 2.0 103/ul Normal 1.2-3.8 [facility] Comment on above: Performed By: #### R PRQ #### [facility] [address] [place] [address] Dr. Jerry Samuel Lymphocytes/100 WBC (Bld) 26.7 % Normal 20.5-60.0 [facility] Comment on above: Performed By: #### R PRQ #### [facility] [address] [place] [address] Dr. Jerry Samuel MANUAL DIFF REQ NO Normal [facility] Comment on above: Performed By: #### R PRQ #### [facility] [address] [address] [address] Jerry Samuel MCH (RBC) [Entitic mass] 29.0 pg Normal 26.7-34.0 [facility] Comment on above: Performed By: #### R PRQ #### [facility] [address] [place] [address] Dr. Jerry Samuel MCHC (RBC) [Mass/Vol] 33.6 g/dL Normal 29.9-35.2 [facility] Comment on above: Performed By: #### R PRQ #### [facility] [address] [place] [address] Dr. Jerry Samuel MCV (RBC) [Entitic vol] 86.2 fL Normal 81.0-99.0 [facility] Comment on above: Performed By: #### R PRQ #### [facility] [address] [place] [address] Dr. Jerry Samuel MONO # 0.5 103/ul Normal 0.3-0.8 [facility] Comment on above: Performed By: #### R PRQ #### [facility] [address] [place] [address] Dr. Jerry Samuel Monocytes/100 WBC (Bld) 6.7 % Normal 1.7-12.0 [facility] Comment on above: Performed By: #### R PRQ #### [facility] [address] [place] [address] Dr. Jerry Samuel NEUT # 4.9 103/ul Normal 1.4-6.5 [facility] Comment on above: Performed By: #### R PRQ #### [facility] [address] [place] [address] Dr. Jerry Samuel Neutrophils/100 WBC (Bld) 65.3 % Normal 43.0-75.0 [facility] Comment on above: Performed By: #### R PRQ #### [facility] [address] [place] [address] Dr. Jerry Samuel Platelet mean volume (Bld) [Entitic vol] 10.0 fL Normal 9.5-13.5 [facility] Comment on above: Performed By: #### R PRQ #### [facility] [address] [address] [address] Jerry Samuel PLT 218 103/ul Normal 150-450 [facility] Comment on above: Performed By: #### R PRQ #### [facility] [address] [address] [address] Jerry Samuel RBC 4.07 106/ul Critically low 4.20-5.40 [facility] Comment on above: Performed By: #### R PRQ #### [facility] [address] [address] [address] Jerry Samuel WBC 7.5 103/ul Normal 4.0-11.0 [facility] Comment on above: Performed By: #### R PRQ #### [facility] [address] [place] [address] Dr. Jerry Samuel CULTURE URINEon 04-04-2022 CULTURE URINE Culture Observations : NO GROWTH. Normal [facility] Comment on above: Performed By: #### N BOX #### [facility] [address] [address] [address] Jerry Samuel GLYCOHEMOGLOBIN A1Con 2021 ADA RECOMMENDATION SEE BELOW Normal [facility] Comment on above: Result Comment: ADA RECOMMENDED LIMIT 4.0 - 6.0 ADA THERAPEUTIC TARGET < 7.0 ACTION SUGGESTED > 7.0 Performed By: #### N BOX #### [facility] [address] [address] [address] Jerry Samuel Glucose [Mass/Vol] 97 mg/dL Normal [facility] Comment on above: Performed By: #### N BOX #### [facility] [address] [place] [address] Dr. Jerry Samuel HbA1c (Bld) [Mass fraction] 5.0 % Normal 4.5-6.2 [facility] Comment on above: Performed By: #### N BOX #### [facility] [address] [place] [address] Dr. Jerry Samuel TYPE AND SCREENon 04-04-2022 TYPE AND SCREEN Negative Normal [facility] Comment on above: Performed By: #### N BOX #### [facility] [address] [place] [address] Dr. Jerry Samuel US PREG TVon 04-04-2022 [...] EDITH WILLIS Date: 2022-04-04 16:13 Normal [facility] PREG QUANT HCGon 03-07-2022 HCG QUANT 2201 mIU/mL Normal [facility] Comment on above: Performed By: #### R PRQ #### [facility] [address] [place] [address] Dr. Jerry Samuel HCG RANGE SEE BELOW Normal [facility] Comment on above: Result Comment: 5-50 0.2-1 WEEK 50-500 1-2 WEEKS 100-5,000 2-3 WEEKS 500-10,000 3-4 WEEKS 1,000-50,000 4-5 WEEKS 10,000-100,000 5-6 WEEKS 15,000-200,000 6-8 WEEKS 10,000-100,000 2-3 MONTHS Performed By: #### R PRQ #### [facility] [address] [place] [address] Dr. Jerry Samuel PREG QUANT HCGon 03-05-2022 HCG QUANT 820 mIU/mL Normal [facility] Comment on above: Performed By: #### R PRQ #### [facility] [address] [place] [address] Dr. Jerry Samuel HCG RANGE SEE BELOW Normal [facility] Comment on above: Result Comment: 5-50 0.2-1 WEEK 50-500 1-2 WEEKS 100-5,000 2-3 WEEKS 500-10,000 3-4 WEEKS 1,000-50,000 4-5 WEEKS 10,000-100,000 5-6 WEEKS 15,000-200,000 6-8 WEEKS 10,000-100,000 2-3 MONTHS Performed By: #### R PRQ #### [facility] [address] [place] [address] Dr. Jerry Samuel PAP ACOG PANEL 2: 21 to 29on 02-21-2022 . . [facility] Comment on above: Performed By: #### R PRQ #### [facility] [address] [address] [address] Jerry Samuel Age Gdln ACOG Testing - [facility] Comment on above: Performed By: #### R PRQ #### [facility] [address] [place] [address] Dr. Jerry Samuel DIAGNOSIS: Comment [facility] Comment on above: Result Comment: NEGA TIVE FOR INTRAEPITHELIAL LESION OR MALIGNANCY. SPECIMEN REPROCESSED FOR INTERPRETATION. Performed By: #### R PRQ #### [facility] [address] [place] [address] Dr. Jerry Samuel Methodology: Comment [facility] Comment on above: Result Comment: This liquid based ThinPrep(R) pap test was screened with the use of an image guided system. Performed By: #### R PRQ #### [facility] [address] [place] [address] Dr. Jerry Samuel Note: Comment [facility] Comment on above: Result Comment: The Pap smear is a screening test designed to aid in the detection of premalignant and malignant conditions of the uterine cervix. It is not a diagnostic procedure and should not be used as the sole means of detecting cervical cancer. Both false-positive and false-negative reports do occur. . Performed By: #### R PRQ #### [facility] [address] [place] [address] Dr. Jerry Samuel Performed by: Comment [facility] Comment on above: Result Comment: nAders Roman, Gold Layer (ASCP) Performed By: #### R PRQ #### [facility] [address] [place] [address] Dr. Jerry Samuel Reflex Criteria: Comment Normal [facility] Comment on above: Result Comment: The HPV DNA reflex criteria were not met with this specimen result therefore, no HPV testing was performed. . Performed By: #### R PRQ #### [facility] [address] [place] [address] Dr. Jerry Samuel Specimen adequacy: Comment Normal [facility] Comment on above: Result Comment: Sati sfactory for evaluation. Endocervical and/or squamous metaplastic cells (endocervical component) are present. Performed By: #### R PRQ #### [facility] [address] [place] [address] Dr. Jerry Samuel US PELVIS AND TRANSVAGon [...] by: EDITH WILLIS Date: 2022-02-13 14:34 Normal [facility] CBC AUTO DIFFon 02-12-2022 BASO # 0.0 103/ul Normal 0.0-0.1 [facility] Comment on above: Performed By: #### C BC #### [facility] [address] [place] [address] Dr. Jerry Samuel Basophils/100 WBC (Bld) 0.6 % Normal 0.2-2.0 [facility] Comment on above: Performed By: #### C BC #### [facility] [address] [place] [address] Dr. Jerry Samuel EO # 0.1 103/ul Normal 0.0-0.7 [facility] Comment on above: Performed By: #### C BC #### [facility] [address] [place] [address] Dr. Jerry Samuel Eosinophils/100 WBC (Bld) 1.2 % Normal 0.9-7.0 [facility] Comment on above: Performed By: #### C BC #### [facility] [address] [place] [address] Dr. Jerry Samuel Erythrocyte distribution width (RBC) [Ratio] 11.9 % Normal 11.0-15.0 [facility] Comment on above: Performed By: #### C BC #### [facility] [address] [place] [address] Dr. Jerry Samuel Hematocrit (Bld) [Volume fraction] 39.1 % Normal 36.0-48.0 [facility] Comment on above: Performed By: #### C BC #### [facility] [address] [place] [address] Dr. Jerry Samuel Hemoglobin (Bld) [Mass/Vol] 13.0 g/dL Normal 12.0-16.0 [facility] Comment on above: Performed By: #### C BC #### [facility] [address] [place] [address] Dr. Jerry Samuel IG # 0.01 10e3/ul Normal 0.00-0.03 [facility] Comment on above: Performed By: #### C BC #### [facility] [address] [place] [address] Dr. Jerry Samuel IG % 0.2 % Normal 0.0-0.5 [facility] Comment on above: Performed By: #### C BC #### [facility] [address] [place] [address] Dr. Jerry Samuel LYMPH # 2.4 103/ul Normal 1.2-3.8 [facility] Comment on above: Performed By: #### C BC #### [facility] [address] [place] [address] Dr. Jerry Sameul Lymphocytes/100 WBC (Bld) 37.7 % Normal 20.5-60.0 [facility] Comment on above: Performed By: #### C BC #### [facility] [address] [place] [address] Dr. Jerry Samuel MANUAL DIFF REQ NO Normal [facility] Comment on above: Performed By: #### C BC #### [facility] [address] [place] [address] Dr. Jerry Samuel MCH (RBC) [Entitic mass] 29.2 pg Normal 26.7-34.0 [facility] Comment on above: Performed By: #### C BC #### [facility] [address] [place] [address] Dr. Jerry Samuel MCHC (RBC) [Mass/Vol] 33.2 g/dL Normal 29.9-35.2 [facility] Comment on above: Performed By: #### C BC #### [facility] [address] [place] [address] Dr. Jerry Samuel MCV (RBC) [Entitic vol] 87.9 fL Normal 81.0-99.0 [facility] Comment on above: Performed By: #### C BC #### [facility] [address] [place] [address] Dr. Jerry Samuel MONO # 0.4 103/ul Normal 0.3-0.8 [facility] Comment on above: Performed By: #### C BC #### [facility] [address] [place] [address] Dr. Jerry Samuel Monocytes/100 WBC (Bld) 5.9 % Normal 1.7-12.0 [facility] Comment on above: Performed By: #### C BC #### [facility] [address] [place] [address] Dr. Jerry Samuel NEUT # 3.5 103/ul Normal 1.4-6.5 [facility] Comment on above: Performed By: #### C BC #### [facility] [address] [place] [address] Dr. Jerry Samuel Neutrophils/100 WBC (Bld) 54.4 % Normal 43.0-75.0 [facility] Comment on above: Performed By: #### C BC #### [facility] [address] [place] [address] Dr. Jerry Samuel Platelet mean volume (Bld) [Entitic vol] 9.9 fL Normal 9.5-13.5 [facility] Comment on above: Performed By: #### C BC #### [facility] [address] [place] [address] Dr. Jerry Samuel PLT 229 103/ul Normal 150-450 [facility] Comment on above: Performed By: #### C BC #### [facility] [address] [place] [address] Dr. Jerry Samuel RBC 4.45 106/ul Normal 4.20-5.40 [facility] Comment on above: Performed By: #### C BC #### [facility] [address] [place] [address] Dr. Jerry Samuel WBC 6.5 103/ul Normal 4.0-11.0 [facility] Comment on above: Performed By: #### C BC #### [facility] [address] [place] [address] Dr. Jerry Samuel FREE T4on 02-12-2022 Free T4 [Mass/Vol] 0.99 ng/dL Normal 0.76-1.46 [facility] Comment on above: Performed By: #### R PRQ #### [facility] [address] [place] [address] Dr. Jerry Samuel GLYCOHEMOGLOBIN A1Con 2021 ADA RECOMMENDATION SEE BELOW Normal [facility] Comment on above: Result Comment: ADA RECOMMENDED LIMIT 4.0 - 6.0 ADA THERAPEUTIC TARGET < 7.0 ACTION SUGGESTED > 7.0 Performed By: #### R PRQ #### [facility] [address] [place] [address] Dr. Jerry Samuel Glucose [Mass/Vol] 103 mg/dL Normal [facility] Comment on above: Performed By: #### R PRQ #### [facility] [address] [address] [address] Jerry Samuel HbA1c (Bld) [Mass fraction] 5.2 % Normal 4.5-6.2 [facility] Comment on above: Performed By: #### R PRQ #### [facility] [address] [place] [address] Dr. Jerry Samuel PROTIMEon 02-12-2022 INR Coag (PPP) [Relative time] 1.00 {INR} Normal [facility] Comment on above: Performed By: #### N BOX #### [facility] [address] [place] [address] Dr. Jerry Samuel INR GUIDELINES SEE BELOW Normal [facility] Comment on above: Result Comment: SACHA RED INR: 2.0 - 3.0 CONDITIONS NOT LISTED BELOW 2.5 - 3.5 FOR PROSTHETIC HEART VALVE REPLACEMENT 2.5 - 3.5 RECURRENT THROMBOSIS Performed By: #### N BOX #### [facility] [address] [place] [address] Dr. Jerry Samuel PT Coag (PPP) [Time] 10.8 s Normal 9.0-11.6 [facility] Comment on above: Performed By: #### N BOX #### [facility] [address] [place] [address] Dr. Jerry Samuel PTTon 02-12-2022 aPTT Coag (Bld) [Time] 27.8 s Normal 22.3-36.2 [facility] Comment on above: Performed By: #### N BOX #### [facility] [address] [place] [address] Dr. Jerry Samuel TSHon 02-12-2022 TSH 1.741 uIU/mL Normal 0.358-3.740 [facility] Comment on above: Performed By: #### T SH #### [facility] [address] [place] [address] Dr. Jerry Samuel Outside Recordson 11-20-2021 Outside Records [id number]#1.00OTG TIFF [facility] Outside Recordson 11-16-2021 Outside Records [id number]#1.00OT GTIFF [facility] HCG,Urineon 02-22-2021 Beta HCG ( test) Ql (U) Negative Normal [facility] Comment on above: Result Comment: PERF ORMED BY: [place] [id number] PATHOLOGIST [employer] PRIYA WHITE M.D. Performed By: #### U HCG #### [address] 02-22-2021 L ---- Specimen: [id number] Received: 02/23/21 Status: DRE Glenn Num: [id number] Spec Type: Surgical Subm Dr: Edith Cagle Jr, DO Tissues: A Duodenum - Biopsy (DUODENUM BX) B Stomach - Biopsy/Polyp (ANTRUM BX) C Colon Biopsy (RANDOM COLON) Procedures: HE Stain/6, Gross/Micro L4/3 Patient Age/Sex Location Account Attending Physician LauritaKarivilma Amaya / [id number] Edith Cagle Jr, DO SPEC NUM: [id number] RECD: 02/23/21 STATUS: DRE ELIZABETH NUM: [id number] CASIMIRO: 02/22/21- SUBM DR: Edith Cagle Jr, DO ENTERED: 02/23/[address]: ANITA TYPE: Surgical DEPT: S ENTERED BY: [id number] RECV BY: [id number] ORDERED: HE Stain/6, Gross/Micro L4/3 ORDERED: HE [...] in one cassette labeled B1. (SM/YJ) Specimen: [id number] Received: 02/23/21 Status: DRE Elizabeth Num: [id number] Spec Type: Surgical Subm Dr: Edith Cagle Jr, DO Tissues: A Duodenum - Biopsy (DUODENUM BX) B Stomach - Biopsy/Polyp (ANTRUM BX) C Colon Biopsy (RANDOM COLON) Procedures: HE Stain/6, Gross/Micro L4/3 Patient: Will Shay [id number] (Continued) Specimen: [id number] Received: 02/23/21 (Continued) Gross Description (Continued) Signed (signature on file) Gail Crockett MD 02/26/21 1601 Specimen: [id number] Received: 02/23/21 Status: DRE Elizabeth Num: [id number] Spec Type: Surgical Subm Dr: Edith Cagle Jr, DO Tissues: A Duodenum - Biopsy (DUODENUM BX) B Stomach - Biopsy/Polyp (ANTRUM BX) C Colon Biopsy (RANDOM COLON) Procedures: HE Stain/6, Gross/Micro L4/3 Patient: Will Shay [id number] (Continued) Specimen: [id number] Received: 02/23/21 (Continued) Gross Description (Continued) C. [...] determined by the Laboratory of [facility]. Immunohistochemistry assays have not been validated on decalcified tissue. Results should be interpreted with caution given the possibility of false negative results on decalcified specimens. They have not been cleared by the [place] Food and Drug Administration. The FDA has determined that such clearance or approval is not necessary. CPT Codes 84486?3, 03472 (more content not included)... Normal [facility] [place] [facility] [place] SARS-CoV-2 (COVID-19) RNA ELINOR+probe Ql (Unsp spec) Negative Normal Negative [facility] Comment on above: Order Comment: Healt hcare Worker?: N Result Comment: Testing for SARS-CoV-2 by RT-PCR This test was developed and its performance characteristics determined by [employer] and validated at the [facility]. This test has not been FDA cleared [...] is terminated or revoked sooner. PERFORMED BY: [facility] [place] [address] PATHOLOGIST [employer] PRIYA WHITE M.D. Performed By: #### C OVID 19 [facility] [place] #### [address] Vital Signs Date Time Vital Sign Value Performing Clinician Facility 07-05-2024 15:29-0400 Body mass index (BMI) [Ratio] 28.55 kg/m2 Eddie Nova DO Work Phone: [facility] 07-05-2024 15:29-0400 Body weight 85.19 kg Eddie Nova DO Work Phone: [facility] 07-05-2024 15:29-0400 Diastolic blood pressure 78 mm[Hg] Eddie Nova DO Work Phone: [facility] 07-05-2024 15:29-0400 Systolic blood pressure 118 mm[Hg] Eddie Nova DO Work Phone: [facility] 06-07-2024 15:03-0500 Body mass index (BMI) [Ratio] 28.86 kg/m2 Eddie Nova DO Work Phone: [facility] 06-07-2024 15:03-0500 Body weight 86.09 kg Eddie Nova DO Work Phone: [facility] 06-07-2024 15:03-0500 Diastolic blood pressure 70 mm[Hg] Eddie Nova DO Work Phone: [facility] 06-07-2024 15:03-0500 Systolic blood pressure 112 mm[Hg] Eddie Nova DO Work Phone: [facility] 05-24-2024 14:28-0500 Body mass index (BMI) [Ratio] 29.32 kg/m2 Eddie Nova DO Work Phone: [facility] 05-24-2024 14:28-0500 Body weight 87.45 kg Eddie Nova DO Work Phone: [facility] 05-24-2024 14:28-0500 Diastolic blood pressure 70 mm[Hg] Eddie Nova DO Work Phone: [facility] 05-24-2024 14:28-0500 Systolic blood pressure 120 mm[Hg] Eddie Nova DO Work Phone: [facility] 05-11-2024 13:15-0500 Body mass index (BMI) [Ratio] 29.19 kg/m2 Kirsty Sherron PA Work Phone: [facility] 05-11-2024 13:15-0500 Body weight 87.09 kg Kirsty Sherron PA Work Phone: [facility] 05-11-2024 13:15-0500 Diastolic blood pressure 60 mm[Hg] Kirsty Sherron PA Work Phone: [facility] 05-11-2024 13:15-0500 Systolic blood pressure 110 mm[Hg] Kirsty Sherron PA Work Phone: [facility] 04-27-2024 12:18-0500 Body mass index (BMI) [Ratio] 29.8 kg/m2 Eddie Nova DO Work Phone: [facility] 04-27-2024 12:18-0500 Body weight 88.91 kg Eddie Nova DO Work Phone: [facility] 04-27-2024 12:18-0500 Diastolic blood pressure 62 mm[Hg] Edide Nova DO Work Phone: [facility] [facility] 04-27-2024 12:18-0500 Systolic blood pressure 106 mm[Hg] Eddie Nova DO Work Phone: [facility] 04-05-2024 13:24-0500 Body mass index (BMI) [Ratio] 30.38 kg/m2 Kirsty Sherron PA Work Phone: [facility] 04-05-2024 13:24-0500 Body weight 90.63 kg Kirsty [place] PA Work Phone: [facility] 04-05-2024 13:24-0500 Diastolic blood pressure 64 mm[Hg] Kirsty Sherron PA Work Phone: [facility] 04-05-2024 13:24-0500 Systolic blood pressure 104 mm[Hg] Kirsty RAHMAN Work Phone: [facility] 03-08-2024 16:52-0500 Body mass index (BMI) [Ratio] 30.62 kg/m2 Eddie Nova DO Work Phone: [facility] 03-08-2024 16:52-0500 Body weight 91.35 kg Eddie Nova DO Work Phone: [facility] 03-08-2024 16:52-0500 Diastolic blood pressure 74 mm[Hg] Eddie Nova DO Work Phone: [facility] 03-08-2024 16:52-0500 Systolic blood pressure 116 mm[Hg] Eddie Nova DO Work Phone: [facility] 02-09-2024 16:03-0500 Body mass index (BMI) [Ratio] 30.11 kg/m2 Eddie Nova DO Work Phone: [facility] 02-09-2024 16:03-0500 Body weight 89.81 kg Eddie Nova DO Work Phone: [facility] 02-09-2024 16:03-0500 Diastolic blood pressure 70 mm[Hg] Eddie Nova DO Work Phone: [facility] 02-09-2024 16:03-0500 Systolic blood pressure 118 mm[Hg] Eddie Nova DO Work Phone: [facility] 01-07-2024 15:50-0400 Body mass index (BMI) [Ratio] 29.97 kg/m2 Eddie Nova DO Work Phone: [facility] 01-07-2024 15:50-0400 Body weight 89.41 kg Eddie Nova DO Work Phone: [facility] 01-07-2024 15:50-0400 Diastolic blood pressure 72 mm[Hg] Eddie Nova DO Work Phone: [facility] 01-07-2024 15:50-0400 Systolic blood pressure 106 mm[Hg] Eddie Bhatt DO Work Phone: [facility] 12-17-2023 11:17-0400 Body mass index (BMI) [Ratio] 30.33 kg/m2 Kirsty Siu PA Work Phone: [facility] 12-17-2023 11:17-0400 Body weight 90.49 kg Kirsty Siu PA Work Phone: [facility] 12-17-2023 11:17-0400 Diastolic blood pressure 70 mm[Hg] Kirsty Siu PA Work Phone: [facility] 12-17-2023 11:17-0400 Systolic blood pressure 104 mm[Hg] Kirsty Siu PA Work Phone: [facility] 12-12-2023 09:34-0400 Body mass index (BMI) [Ratio] 30.41 kg/m2 [facility] 12-12-2023 09:34-0400 Body weight 90.72 kg [facility] 12-12-2023 09:34-0400 Diastolic blood pressure 80 mm[Hg] [facility] Nurse [facility] 12-12-2023 09:34-0400 Systolic blood pressure 120 mm[Hg] [facility] Nurse [facility] 03-26-2023 13:45-0500 Body height 164.47 cm Ben Rose Other [email or web address] Other 03-26-2023 13:45-0500 Body mass index (BMI) [Ratio] 29.6 kg/m2 Ben Rose Other [email or web address] Other 03-26-2023 13:45-0500 Body weight 80.06 kg Ben Moralesaugusto Other [email or web address] Other 03-26-2023 13:45-0500 Diastolic blood pressure 74 mm[Hg] Ben Rose Other [email or web address] Other 03-26-2023 13:45-0500 Systolic blood pressure 120 mm[Hg] Ben Rose Other [email or web address] Other 06-14-2022 17:07-0500 Body weight 79.[address] EDDIE BHATT . [facility] Comment on above: Performed By: #### RPRQ #### [facility] [address] [place] [address] Dr. Jerry Samuel 03-08-2022 11:15-0500 Body height 164.47 cm Ben Rose Other [email or web address] Other 03-08-2022 11:15-0500 Body mass index (BMI) [Ratio] 29.01 kg/m2 Ben Rose Other [email or web address] Other 03-08-2022 11:15-0500 Body weight 78.47 kg Ben Rose Other [email or web address] Other 03-08-2022 11:15-0500 Diastolic blood pressure 73 mm[Hg] Ben Rose Other [email or web address] Other 03-08-2022 11:15-0500 Systolic blood pressure 113 mm[Hg] Ben Rose Other [email or web address] Other Encounters Encounter Date Encounter Type Care [...] Result Encounter Eddie Nova DO Work Phone: [facility] External Department Unsolicited Start: 02-18-2024 End: 02-20-2024 Clinisync Result Encounter Eddie Nova DO Work Phone: [facility] External Department Unsolicited Start: 02-09-2024 End: 02-09-2024 Patient encounter procedure Eddie Nova DO Work Phone: [facility] Start: 02-09-2024 End: 02-09-2024 flow [...] flow sheet Eddie Nova DO Work Phone: [facility] Comment on above: First [...] 03-26-2023 End: 03-26-2023 ambulatory Ben Rose Other [email or web address] Other Start: 03-26-2023 Patient encounter procedure Ben Rose [facility] Start: 01-24-2023 End: 01-24-2023 ambulatory Ben Rose Other [email or web address] Other Start: 01-24-2023 Telephone encounter Ben Rose [...] 03-08-2022 End: 03-08-2022 ambulatory Ben Rose Other [facility] [employer] Other Start: 03-08-2022 Patient encounter procedure Ben [...] 11-06-2021 End: 11-06-2021 ambulatory Angeles A Mikael PHARMACY MANAGER-C Facility:[facility] Start: 11-05-2021 End: 11-06-2021 ambulatory Angeles A Mikael PHARMACY MANAGER-C Facility:[facility] IC Procedures Date Procedure Procedure Detail Performing Clinician Start: 07-05-2024 Urnls dip stick/tabl et rgnt non-auto w/o micrscp Eddie Nova DO Work Phone: Start: 06-29-2024 TB UA (CLEAN/CATCH) ADMINISTRATIVE PERSONAL ASSISTANT/MICRO IF IND. Eddie Nova DO Work Phone: [...] [facility] [address] [place] [phone] Kirsty Siu PA [address] [place] [address] [facility] Start: 07-05-2024 End: 07-05-2024 Patient encounter procedure 07/05/2024 3:00 PM EDT Routine [facility] [address] [place] [phone] Eddie Bhatt, DO [address] [place] [address] [facility] Start: 06-21-2024 End: 06-21-2024 Patient encounter procedure 06/21/2024 1:50 PM EDT Routine [facility] [address] [place] [phone] Kirsty Siu, PA [address] [place] [address] [facility] Start: 06-07-2024 End: 06-07-2024 Patient encounter procedure 06/07/2024 2:40 PM EST Routine [facility] [address] [place] [phone] Eddie Bhatt, DO [address] [place] [address] [facility] Start: 05-24-2024 End: 05-24-2024 Patient encounter procedure 05/24/2024 2:40 PM EST Routine [facility] [address] [place] [phone] Eddie Bhatt, DO [address] [place] [address] [facility] Start: 05-24-2024 End: 05-24-2024 Professional / ancillary services management 05/24/2024 2:00 PM EST Ancillary Procedure [facility] [address] [facility] [place] [address] [facility] Start: 05-11-2024 End: 05-11-2025 US for US OB follow up transabdominal approach Imaging Routine size inconsistent with dates Expected: 05/11/2024, Expires: 05/11/2025 [facility] Work Phone: Comment on above: Expected: 05/11/2024 , Expires: 05/11/2025 Start: 05-11-2024 End: 05-11-2024 Patient encounter procedure 05/11/2024 1:00 PM EST Routine [facility] [address] [facility] [address] Eddie Bhatt, DO [address] [facility] [place] [address] [facility] Start: 04-27-2024 End: 04-27-2024 Patient encounter procedure 04/27/2024 11:20 AM EST Routine [facility] [address] [facility] [place] [phone] Eddie Bhatt, DO [address] [place] [address] [facility] Start: 04-05-2024 End: 04-05-2025 [...] PM EST Routine [facility] [address] [facility] [phone] Eddie Bhatt, DO [address] [place], [place] [id number] [facility] Start: 03-01-2024 End: 03-01-2024 Professional / ancillary services management 03/01/2024 1:30 PM EST Ancillary Procedure [facility] [address] [facility] [place] [phone] [facility] Start: 02-09-2024 End: 02-09-2024 Patient encounter procedure [facility] Comment on above: Arrived Start: 02-09-2024 End: 02-08-2025 US for US OB ANATOMY SINGLE W US OB CERVICAL LENGTH Imaging Routine Screening, , for anatomic survey Expected: 02/09/2024 (Approximate), Expires: 02/08/2025 [facility] Comment on above: Expected: 02/09/2024 (Approximate), Expires: 02/08/2025 Start: 01-07-2024 End: 01-07-2024 Patient encounter procedure [facility] Comment on above: Arrived Start: 12-17-2023 End: 12-17-2023 Patient encounter procedure 12/17/2023 11:00 AM EDT Office Visit [facility] [address] [facility] [address] Kirsty Siu PA [address] [facility] [place] [address] Arrived [facility] Comment on above: Arrived Start: 12-12-2023 End: 12-11-2024 ABO/Rh ABO/Rh Lab Routine Missed menses Expected: 12/12/2023 (Approximate), Expires: 12/11/2024 [facility] Comment on above: Expected: 12/12/2023 (Approximate), Expires: 12/11/2024 Start: 12-12-2023 End: 12-11-2024 Blood type and Indirect antibody screen panel - Blood Type and screen Lab Routine Missed menses Expected: 12/12/2023 (Approximate), Expires: 12/11/2024 [facility] Work Phone: Comment on above: Expected: 12/12/2023 (Approximate), Expires: 12/11/2024 Start: 12-12-2023 End: 12-11-2024 US Pelvis transvaginal US OB transvaginal Imaging Routine Missed menses Expected: 12/12/2023 (Approximate), Expires: 12/11/2024 [facility] Comment on above: Expected: 12/12/2023 (Approximate), Expires: 12/11/2024 Bacteria identified in Urine by Culture Urine culture Microbiology Routine Missed menses Ordered: 12/12/2023 [facility] Comment on above: Ordered: 12/12/2023 CBC W Auto Different ial panel - Blood CBC and differential Lab Routine Nausea and vomiting during Dizziness Ordered: 01/07/2024 [facility] Work Phone: Comment on above: Ordered: 01/07/2024 CBC W Auto Different ial panel - Blood CBC and differential Lab Routine Missed menses Ordered: 12/12/2023 [facility] Comment on above: Ordered: 12/12/2023 CHLAMYDIA TRACHOMATI S (GENITO/STI) CHLAMYDIA TRACHOMATIS (GENITO/STI) Lab Routine Exposure to STD Ordered: 02/09/2024 [facility] Comment on above: Ordered: 02/09/2024 Hemoglobin A1c/Hemoglobin.total in Blood Hemoglobin A1c Lab Routine Missed menses Ordered: 12/12/2023 [facility] Comment on above: Ordered: 12/12/2023 Hepatitis B virus surface Ag [Presence] in Serum or Plasma by Immunoassay Hepatitis B surface antigen Lab Routine Missed menses Ordered: 12/12/2023 [facility] Comment on above: Ordered: 12/12/2023 Hepatitis C virus Ab [Presence] in Serum or Plasma by Immunoassay Hepatitis C antibody Lab Routine Missed menses Ordered: 12/12/2023 [facility] Comment on above: Ordered: 12/12/2023 HIV-1/HIV-2 antigen/antibody combination immunoassay HIV-1 and HIV-2 antibodies Lab Routine Missed menses Ordered: 12/12/2023 [facility] Comment on above: Ordered: 12/12/2023 Neisseria gonorrhoea e DNA [Presence] in Unspecified specimen by ELINOR with probe detection Neisseria gonorrhea DNA probe, direct Lab Routine Exposure to STD Ordered: 02/09/2024 [facility] Comment on above: Ordered: 02/09/2024 Reagin Ab [Presence] in Serum by RPR RPR Lab Routine Missed menses Ordered: 12/12/2023 [facility] Comment on above: Ordered: 12/12/2023 Rubella antibody, IgG Rubella an tibody, IgG Lab Routine Missed menses Ordered: 12/12/2023 [facility] Comment on above: Ordered: 12/12/2023 SURESWAB(R) ADVANCED VAGINITIS PLUS, TMA SURESWAB(R) ADVANCED VAGINITIS PLUS, TMA Pathology and Cytology Routine Exposure to STD Ordered: 02/09/2024 [facility] Work Phone: Comment on above: Ordered: 02/09/2024 Immunizations Immunization Date Immunization Notes Care Provider Michael albright 11-08-2014 human papilloma viru s vaccine, quadrivalent Ben Rose Other [email or web address] Other Payers Date Payer Category Payer Blue Cross Blue Shield [id number] 2022 Unknown BCBS BCBS [id number] 2022-Present [phone] [address] [place] [address] [id number]. [id number] 2022 Unknown [id number] 2021 Unknown [id number] 1996 Unknown [id number] 2.16.840.1.219238.3.579.2.718 1996 Unknown [id number] 2.16.840.1.205473.3.579.2.718 1996 Unknown [id number] 2.16.840.1.813075.3.579.2.593 1996 Unknown [id number] 2.16.840.1.293221.3.579.2.593 1996 Unknown [id number] 2.16.840.1.132856.3.579.2.593 1996 Unknown [id number] 2.16.840.1.015079.3.579.2.593 1996 Unknown [id number] 2.16.840.1.329178.3.579.2.593 1996 Unknown [id number] 2.16.840.1.837951.3.579.2.593 1996 Unknown [id number] 2.16.840.1.032273.3.579.2.593 1996 Unknown [id number] 2.16.840.1.667119.3.579.2.593 1996 Unknown [id number] 2.16.840.1.556136.3.579.2.593 1996 Unknown [id number] 2.16.840.1.160698.3.579.2.593 1996 Unknown [id number] 2.16.840.1.184046.3.579.2.593 1996 Unknown [id number] 2.16.840.1.070267.3.579.2.593 1996 Unknown [id number] 2.16.840.1.494633.3.579.2.59 1996 Unknown [id number] 2.16.840.1.694084.3.579.2.59 1996 Unknown [id number] 2.16.840.1.350852.3.579.2.59 1996 Unknown [id number] 2.16.840.1.874916.3.579.2.1258 1996 Unknown [id number] 2.16.840.1.156715.3.579.2.1258 1996 Unknown [id number] 2.16.840.1.984508.3.579.2.1258 1996 Unknown [id number] 2.16.840.1.770303.3.579.2.1258 1996 Unknown [id number] 2.16.840.1.286743.3.579.2.1258 1996 Unknown [id number] 2.16.840.1.120129.3.579.2.1258 1996 Unknown [id number] 2.16.840.1.354076.3.579.2.1258 1996 Unknown [id number] 2.16.840.1.151879.3.579.2.1258 1996 Unknown [id number] 2.16.840.1.805474.3.579.2.1258 1996 Unknown [id number] 2.16.840.1.403109.3.579.2.9 1996 Unknown [id number] 2.16.840.1.695319.3.579.2.1259 1996 Unknown [id number] 2.16.840.1.718928.3.579.2.1259 1996 Unknown [id number] 2.16.840.1.076223.3.579.2.1259 1996 Unknown [id number] 2.16.840.1.912090.3.579.2.1259 1959 Self-pay 1959 Unknown [id number] 2.16. 840.1.093603.19 1959 Unknown [id number] 2.16.840.1.852619.19 1959 Unknown [id number] 1959 Unknown [id number] Unknown [id number] 2.16.840.1.671905.3.579.2.593 Social History Date Type Detail Facility Unknown if ever smoked [email or web address] Other Start: 03-27-2023 End: 12-12-2023 Sex Assigned At [facility] Other Start: 09-17-2022 Tobacco smoking stat [facility] Never smoked tobacco [facility] Start: 09-17-2022 Tobacco use and exposure Smokeless tobacco non-user [facility] Start: 12-17-2023 End: 07-05-2024 Alcoholic beverage intake Lifetime non-drinker (finding) [facility] Start: 03-27-2023 End: 12-12-2023 History of Social function [facility] Start: 10-27-2023 [facility] Start: 1995 Sex assigned at Not on file N [facility] Clinical Notes 03-08-2022 to 07-05-2024 Peri [...] infection 09/13/2022 Adjustment disorder with depressed mood ([facility]/HCC) 09/13/2022 Allergic rhinitis 09/13/2022 Anxiety 09/13/2022 Arthralgia of multiple joints 09/13/2022 Dysmenorrhea 09/13/2022 Family history of thyroid disease 09/13/2022 Hematochezia 09/13/2022 Low back pain 09/13/2022 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[facility]/HCC) 09/13/2022 Subcutaneous nodule 09/13/2022 Tinea pedis 09/13/2022 25 weeks gestation of 04/05/2024 Second trimester 04/05/2024 Resolved Ambulatory Problems Diagnosis Date Noted No Resolved Ambulatory Problems Past Medical History: Diagnosis Date Depression (CMS/HCC) HISTORY PAST MEDICAL HISTORY SOCIAL HISTORY Past Medical History: Diagnosis Date Anxiety Depression ([facility]) Social History Tobacco Use Smoking status: Never [...] nursing note reviewed. Exam conducted with a maxillofacial pathology present. Vitals: Estimated body mass index is [...] Eddie Bhatt DO documented in this encounter [facility] 06-07-2024 History of Presen t illness [...] infection 09/13/2022 Adjustment disorder with depressed mood ([facility]/HCC) 09/13/2022 Allergic rhinitis 09/13/2022 Anxiety 09/13/2022 Arthralgia of multiple joints 09/13/2022 Dysmenorrhea 09/13/2022 Family history of thyroid disease 09/13/2022 Hematochezia 09/13/2022 Low back pain 09/13/2022 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[facility]) 09/13/2022 Subcutaneous nodule 09/13/2022 Tinea pedis 09/13/2022 25 weeks gestation of 04/05/2024 Second trimester 04/05/2024 Resolved Ambulatory Problems Diagnosis Date Noted No Resolved Ambulatory Problems Past Medical History: Diagnosis Date Depression ([facility]) HISTORY PAST MEDICAL HISTORY SOCIAL HISTORY Past Medical History: Diagnosis Date Anxiety Depression ([facility]) Social History Tobacco Use Smoking status: Never [...] nursing note reviewed. Exam conducted with a maxillofacial pathology present. Vitals: Estimated body mass index is [...] Eddie Bhatt DO documented in this encounter [facility] 05-24-2024 History of Presen t illness [...] infection 09/13/2022 Adjustment disorder with depressed mood ([facility]/HCC) 09/13/2022 Allergic rhinitis 09/13/2022 Anxiety 09/13/2022 Arthralgia of multiple joints 09/13/2022 Dysmenorrhea 09/13/2022 Family history of thyroid disease 09/13/2022 Hematochezia 09/13/2022 Low back pain 09/13/2022 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[facility]) 09/13/2022 Subcutaneous nodule 09/13/2022 Tinea pedis 09/13/2022 25 weeks gestation of 04/05/2024 Second trimester 04/05/2024 Resolved Ambulatory Problems Diagnosis Date Noted No Resolved Ambulatory Problems Past Medical History: Diagnosis Date Depression ([facility]) HISTORY PAST MEDICAL HISTORY SOCIAL HISTORY Past Medical History: Diagnosis Date Anxiety Depression ([facility]) Social History Tobacco Use Smoking status: Never [...] Eddie Bhatt DO documented in this encounter [facility] 05-11-2024 History of Presen t illness [...] infection 09/13/2022 Adjustment disorder with depressed mood ([facility]/HCC) 09/13/2022 Allergic rhinitis 09/13/2022 Anxiety 09/13/2022 Arthralgia of multiple joints 09/13/2022 Dysmenorrhea 09/13/2022 Family history of thyroid disease 09/13/2022 Hematochezia 09/13/2022 Low back pain 09/13/2022 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[facility]) 09/13/2022 Subcutaneous nodule 09/13/2022 Tinea pedis 09/13/2022 25 weeks gestation of 04/05/2024 Second trimester 04/05/2024 Resolved Ambulatory Problems Diagnosis Date Noted No Resolved Ambulatory Problems Past Medical History: Diagnosis Date Depression ([facility]/HCC) HISTORY PAST MEDICAL HISTORY SOCIAL HISTORY Past Medical History: Diagnosis Date Anxiety Depression ([facility]/HCC) Social History Tobacco Use Smoking status: Never [...] of: JOSIAH Schilling documented in this encounter [facility] 04-27-2024 History of Presen t illness [...] nursing note reviewed. Exam conducted with a maxillofacial pathology present. Vitals: Estimated body mass index is [...] Eddie Bhatt DO documented in this encounter [facility] 04-15-2024 Telephone encount er Note Madhuri, [...] do not know, but my phone numbers [phone], thank you, bye. I called pt to let her know that I would talk to Dr. Bhatt and see what he recommends. [facility] 04-15-2024 Miscellaneous Notes Formattin g of [...] do not know, but my phone numbers [phone], thank you, conye. I called pt to let her know that I would talk to Dr. Bhatt and see what he recommends. [facility] documented in this encounter [facility] 04-05-2024 History of Presen t illness [...] infection 09/13/2022 Adjustment disorder with depressed mood ([facility]) 09/13/2022 Allergic rhinitis 09/13/2022 Anxiety 09/13/2022 Arthralgia of multiple joints 09/13/2022 Dysmenorrhea 09/13/2022 Family history of thyroid disease 09/13/2022 Hematochezia 09/13/2022 Low back pain 09/13/2022 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[facility]) 09/13/2022 Subcutaneous nodule 09/13/2022 Tinea pedis 09/13/2022 Resolved Ambulatory Problems Diagnosis Date Noted No Resolved Ambulatory Problems Past Medical History: Diagnosis Date Depression ([facility]) HISTORY PAST MEDICAL HISTORY SOCIAL HISTORY Past Medical History: Diagnosis Date Anxiety Depression ([facility]) Social History Tobacco Use Smoking status: Never [...] of: JOSIAH Schilling documented in this encounter [facility] 03-08-2024 History of Presen t illness [...] infection 09/13/2022 Adjustment disorder with depressed mood ([facility]/HCC) 09/13/2022 Allergic rhinitis 09/13/2022 Anxiety 09/13/2022 Arthralgia of multiple joints 09/13/2022 Dysmenorrhea 09/13/2022 Family history of thyroid disease 09/13/2022 Hematochezia 09/13/2022 Low back pain 09/13/2022 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[facility]) 09/13/2022 Subcutaneous nodule 09/13/2022 Tinea pedis 09/13/2022 Resolved Ambulatory Problems Diagnosis Date Noted No Resolved Ambulatory Problems Past Medical History: Diagnosis Date Depression ([facility]) HISTORY PAST MEDICAL HISTORY SOCIAL HISTORY Past Medical History: Diagnosis Date Anxiety Depression ([facility]) Social History Tobacco Use Smoking status: Never [...] nursing note reviewed. Exam conducted with a maxillofacial pathology present. Vitals: Estimated body mass index is [...] Eddie Bhatt DO documented in this encounter [facility] 02-09-2024 History of Presen t illness [...] infection 09/13/2022 Adjustment disorder with depressed mood (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) Social History Tobacco Use Smoking status: Never [...] nursing note reviewed. Exam conducted with a maxillofacial pathology present. Vitals: Estimated body mass index is [...] of: Kirsty Rico documented in this encounter [facility] 01-07-2024 History of Presen t illness [...] infection 09/13/2022 Adjustment disorder with depressed mood ([facility]) 09/13/2022 Allergic rhinitis 09/13/2022 Anxiety 09/13/2022 Arthralgia of multiple joints 09/13/2022 Dysmenorrhea 09/13/2022 Family history of thyroid disease 09/13/2022 Hematochezia 09/13/2022 Low back pain 09/13/2022 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[facility]) 09/13/2022 Subcutaneous nodule 09/13/2022 Tinea pedis 09/13/2022 Resolved Ambulatory Problems Diagnosis Date Noted No Resolved Ambulatory Problems Past Medical History: Diagnosis Date Depression ([facility]) HISTORY PAST MEDICAL HISTORY SOCIAL HISTORY Past Medical History: Diagnosis Date Anxiety Depression ([facility]) Social History Tobacco Use Smoking status: Never [...] nursing note reviewed. Exam conducted with a maxillofacial pathology present. Vitals: Estimated body mass index is [...] meat, and stay away from [facility]. Patient has been consulted regarding any further do's and don'ts of . Patient voiced understanding and all questions and concerns were answered. Orders Placed This Encounter Procedures Urine dip Follow Up: Patient is to return in 4 weeks for routine OB appointment. Documented by Carmen Foster LPN on behalf of: Kirsty Siu PA-C documented in this encounter [facility] 12-17-2023 History of Presen t illness [...] infection 09/13/2022 Adjustment disorder with depressed mood ([facility]/HCC) 09/13/2022 Allergic rhinitis 09/13/2022 Anxiety 09/13/2022 Arthralgia of multiple joints 09/13/2022 Dysmenorrhea 09/13/2022 Family history of thyroid disease 09/13/2022 Hematochezia 09/13/2022 Low back pain 09/13/2022 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[facility]) 09/13/2022 Subcutaneous nodule 09/13/2022 Tinea pedis 09/13/2022 Resolved Ambulatory Problems Diagnosis Date Noted No Resolved Ambulatory Problems Past Medical History: Diagnosis Date Depression ([facility]) HISTORY PAST MEDICAL HISTORY SOCIAL HISTORY Past Medical History: Diagnosis Date Anxiety Depression ([facility]) Social History Tobacco Use Smoking status: Never [...] of: JOSIAH Schilling documented in this encounter [facility] 12-12-2023 History of Presen t illness [...] infection 09/13/2022 Adjustment disorder with depressed mood ([facility]/HCC) 09/13/2022 Allergic rhinitis 09/13/2022 Anxiety 09/13/2022 Arthralgia of multiple joints 09/13/2022 Dysmenorrhea 09/13/2022 Family history of thyroid disease 09/13/2022 Hematochezia 09/13/2022 Low back pain 09/13/2022 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[facility]) 09/13/2022 Subcutaneous nodule 09/13/2022 Tinea pedis 09/13/2022 Resolved Ambulatory Problems Diagnosis Date Noted No Resolved Ambulatory Problems Past Medical History: Diagnosis Date Depression ([facility]) Family History Problem Relation Name Age of [...] Pt was given OB folder and desires [place] 22. Advised to have both and unity [...] Leah Raman MA documented in this encounter [facility] 03-26-2023 Evaluation note Encounter Date Diagnosis [...] call office if she has no improvement [email or web address] Other 10-20-2023 Evaluation note* Encounter Date Diagnosis Assessment Notes Treatment Notes Treatment Clinical Notes Jan, Epigastric burning sensation (ICD-10 - R10.13) [email or web address] Other 12-02-2022 Evaluation note* Encounter Date Diagnosis Assessment Notes Treatment Notes Treatment Clinical Notes Mar, Nausea (ICD-10 - R11.0) Mar, Epigastric burning sensation (ICD-10 - R10.13) Mar, Lower abdominal pain (ICD-10 - R10.30) Mar, Bloating (ICD-10 - R14.0) Mar, Functional dyspepsia (ICD-10 - K30) Mar, GERD (gastroesophageal reflux disease) (ICD-10 - K21.9) CONTINUE PANTOPRAZOLE 40 MG DAILY CONTINUE LEVSIN NEEDED RTO 1 YR [email or web address] Other Evaluation note* Diagnosis First trimester state, [...] Medical History hx of mono Surgical History [place] teeth x4 [email or web address] Other History general Narrative - Reported* Type Description Date Medical History scoliosis Medical History hx of mono Surgical History [place] teeth x4 Surgical History C section [email or web address] Other Summary Purpose Family History No Family History Records FoundNo Family History Records FoundNo Family History Records FoundNo Family History Records Found Advance Directives No Advanced Directives Records FoundNo Advanced Directives Records FoundNo Advanced Directives Records FoundNo Advanced Directives Records Found Additional Source Comments INFORMATION SOURCE (unrecogn ized section and content) DATE CREATED AUTHOR 02/27/2021 [facility] DATE CREATED AUTHOR AUTHOR'S ORGANIZ ATION 07/24/2022 [facility] DATE CREATED AUTHOR AUTHOR'S ORGANIZ ATION 08/08/2022 [facility] DATE CREATED AUTHOR AUTHOR'S ORGANIZ ATION 07/06/2024 [facility] EPIC REASON FOR VISIT [...] BE BASED ON THE PRIMARY CLINICAL RECORDS. [employer] provides no warranty or guarantee of the accuracy or completeness of information in this document.
--- NOTE | 2024-07-14 01:58 | ECG_ITS ---
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
--- NOTE | 2024-07-14 02:06 | ED_ITS ---
HPI - Abdominal Pain General Chief Complaint: Abdominal Pain Stated Complaint: ABDOMINAL PAIN Time Seen by Provider: 07/14/24 01:46 Source: patient and family Mode of arrival: walk-in History of Present Illness HPI narrative: This 28-year-old female who is 2 weeks after having a presents for evaluation of intermittent sharp, severe abdominal pain. She states the pain is in her upper abdomen and goes into her chest. When she is having the pain she is also short of breath. She has nausea but no vomiting. She has been having bowel movements every other day. She denies any diarrhea. She has not had a fever. She states she does not feel like the pain is in her pelvis. She denies any resting shortness of breath. She has not had any dizziness or syncope. She did require blood transfusions after her . She is currently breast-feeding but states she has milk set aside if she needs pain medication. She has not had a fever or cough. She does not smoke. She is not having any lower extremity pain or swelling. She states the pain started yesterday during the day and became increasingly severe as the day went on causing her to double over at times and become short of breath and sweaty. She is having some mild lochia but no bleeding or drainage from her incision site. Related Data Home Medications ?Medication ?Instructions ?Recorded ?Confirmed citalopram 20 mg tablet (Celexa) 10 mg PO DAILY 10/11/22 07/14/24 pantoprazole 40 mg tablet,delayed 40 mg PO DAILY 10/11/22 07/14/24 release vit no.95-ferrous 1 tab PO DAILY 10/15/22 06/29/24 fumarate 28 mg-folic acid 800 mcg tablet () metoclopramide HCl 10 mg tablet 10 mg PO PRN 12/16/23 06/29/24 Previous Rx's ?Medication ?Instructions ?Recorded meclizine 25 mg tablet 25 mg PO QID PRN dizziness #20 tabs 11/13/23 ondansetron 4 mg disintegrating 4 mg PO Q6H PRN nausea and 11/13/23 tablet vomiting #20 tabs ibuprofen 800 mg tablet 800 mg PO Q8H PRN pain 14 days #40 07/01/24 tabs oxycodone-acetaminophen 5 mg-325 1 tab PO Q6H PRN pain 7 days #28 07/01/24 mg tablet (Percocet) tabs Allergies Allergy/AdvReac Type Severity Reaction Status Date / Time Penicillins AdvReac Intermediate rash Verified 07/14/24 01:50 Review of Systems ROS Status of ROS 10 or more systems reviewed and unremark able except as noted in history and below [facility] Medical History (Updated 07/14/24 @ 04:44 by Jennifer Moe MD) Blood transfusion without reported diagnosis ?Z51.89 - Encounter for other specified aftercare (ICD-10) Delayed hemorrhage ?O72.2 - Delayed and secondary hemorrhage (ICD-10) delivery delivered ?O82 - Encounter for delivery without indication (ICD-10) Gastritis ?K29.70 - Gastritis, unspecified, without bleeding (ICD-10) Depression ?F32.A - Depression, unspecified (ICD-10) Anxiety ?F41.9 - Anxiety disorder, unspecified (ICD-10) Surgical History (Updated 06/29/24 @ 05:40 by Ania Castro) H/O wisdom tooth extraction ?K08.409 - Partial loss of teeth, unspecified cause, unspecified class (ICD- 10) Family History (Updated 06/29/24 @ 05:43 by Ania Castro) Grandmother Family history of cancer Family history of diabetes mellitus Grandfather Family history of myocardial infarction Family history of hypertension Other Family history of stroke Social History (Updated 11/08/22 @ 05:14 by Ivan Silverman) Within the past year, how often did you have a drink containing alcohol: never Within the past year, how often did you have six or more drinks on one occasion: never Score interpretation: A score less than 3 is consistent with normal alcohol consumption. Smoking status: Never smoker Non-prescribed substance use: denies use Highest level of school completed/degree received: Associate degree: academic program Are you now , , , , never or living with a partner: In a typical week, how many times do you talk on the telephone with family, friends, or neighbors: 3 or more times per week How often do you get together with friends or relatives: twice per week How often do you attend rastafari or mosque services: 4 or more times per year Do you belong to any clubs or organizations such as rastafari groups unions, fraternal or athletic groups, or school groups: no Total score: 3 Score interpretation: A score of greater than or equal to 2 indicates the lowest level of social isolation. Little interest or pleasure in doing things: not at all Feeling down, depressed, or hopeless: not at all Feel stressed/tense/nervous/anxious/difficulty sleeping: only a little Do you think of yourself as: straight/heterosexual Gender Identity: female Exam Narrative Exam Narrative: Vital signs and Nursing Notes reviewed: Patient is afebrile with a normal pulse, blood pressure is mildly elevated 144/90, she is not hypoxic with pulse ox of 98% on room air General: Awake, alert, oriented, no acute distress, lying comfortably on the stretcher-patient denied any complaint of pain during my initial assessment HEENT: Normocephalic atraumatic, mucous membranes are moist and pink, eyes are clear, normal conjunctiva, vision is grossly intact, posterior pharynx is normal in appearance. Neck: Supple, no meningeal signs Chest: Lungs are clear to auscultation with good air entry, there is no wheezing rhonchi or rales appreciated no accessory muscle use, patient is speaking in complete sentences-no chest wall tenderness to palpation CVS: Regular rate and rhythm S1-S2, no murmurs rubs or gallops, pulses are brisk and equal bilaterally ABD: Soft, nondistended, no reproducible tenderness in the right upper quadrant, epigastrium or left upper quadrant. No pulsatile masses appreciated. Lower abdomen is soft with no reproducible tenderness. There are some mild bruising in the left lower quadrant adjacent to the Pfannenstiel incision. Steri-Strips are still present over the Pfannenstiel incision without any notable redness, swelling drainage or tenderness in this area Extremities: Moving all extremities, no lower extremity tenderness or swelling noted, negative Homans' sign, pulses are brisk and equal bilaterally Skin: Normal in appearance without rash,pallor, petechiae or purpura Neuro: No focal deficits Constitutional Vital Signs, click to edit/add: Last Vital Signs Temp 97.9 F 07/14/24 01:46 Pulse 72 07/14/24 01:46 Resp 18 07/14/24 01:46 BP 144/90 H 07/14/24 01:46 Pulse Ox 98 07/14/24 01:46 O2 Del Method Room Air 07/14/24 01:46 Course Vital Signs Vital signs: Vital Signs Temperature 97.9 F 07/14/24 01:46 Pulse Rate 72 07/14/24 01:46 Respiratory Rate 18 07/14/24 01:46 Blood Pressure 144/90 H 07/14/24 01:46 Pulse Oximetry 98 07/14/24 01:46 Oxygen Delivery Method Room Air 07/14/24 01:46 Temperature 97.9 F 07/14/24 01:46 Pulse Rate 72 07/14/24 01:46 Respiratory Rate 18 07/14/24 01:46 Blood Pressure 144/90 H 07/14/24 01:46 Pulse Oximetry 98 07/14/24 01:46 Oxygen Delivery Method Room Air 07/14/24 01:46 MDM - Abdominal Pain MDM Narrative Medical decision making narrative: This 28-year-old female who is 2 weeks after having a delivery complicated by blood loss and requiring a blood patch after the procedure presents for evaluation of intermittent episodes of sharp stabbing cramping abdominal pain. She is having some degree of lochia. She is still breast-feeding. She has not had any fever or cough. She states she has been urinating normally. She has been having bowel movements approximately every other day. She is well-appearing. She has not had a fever. Her abdomen is soft and flat. I could not elicit any severe tenderness in her epigastrium right upper quadrant or left upper quadrant. There was no lower abdominal tenderness. Her Pfannenstiel incision is healing well with Steri-Strips in place at this time. Due to her status and the fact that she said that when her pain struck she was nauseated diaphoretic and short of breath a cardiac workup including D-dimer was ordered. EKG is a sinus bradycardia with no acute changes. Labs are reviewed. She has a normal white count and her hemoglobin has improved since discharge and is currently 10.9. Electrolytes are normal. D-dimer was elevated at 2.5. Urine is negative for infection. CT angiogram of the chest abdomen pelvis was ordered. It shows normal heart size with very small right and left pleural effusions, no thoracic aortic aneurysm or dissection. No pulmonary embolism. No endobronchial lesion. No pneumothorax. Normal thyroid gland. No acute process seen in the liver gallbladder spleen pancreas adrenal glands or kidneys. Mild constipation involving the right colon and transverse colon segments. Small umbilical hernia. Mildly enlarged uterus consistent with post gravid status. No acute process seen in the fluid-filled distended bladder. Her bladder was scanned after she urinated revealing only [address] scan also showed some mild stranding in the anterior pelvic wall subcutaneous fat consistent with postoperative change related to edema and stranding from prior and recent . There is no features of colitis or enteritis. Nonspecific right lower quadrant lymph nodes were also present. Results of the CT scan were discussed with the patient and her . She was given a copy for her records. Overall I suspect that her symptoms are related to some degree of constipation. She will be given a Colace prior to discharge and discharged home with prescription for Zofran and Colace. I also encouraged her to use a fiber supplement such as Metamucil or MiraLAX ongoing until her bowels have regulated and her status has resolved. Lab Data Labs: Lab Results 07/14/24 07/14/24 Range/Units 02:16 03:58 WBC 6.2 (4.0-11.0) 10^3/uL RBC 4.37 (4.20-5.40) 10^6/uL Hgb 10.9 L (12.0-16.0) g/dL Hct 35.1 L (36.0-48.0) % MCV 80.3 L (81.0-99.0) fL MCH 24.9 L (26.7-34.0) pg MCHC 31.1 (29.9-35.2) g/dL RDW 18.1 H (11.0-15.0) % Plt Count 195 (150-450) 10^3/uL MPV 10.6 (9.5-13.5) fL Neut % (Auto) 46.6 (43.0-75.0) % Lymph % (Auto) 43.9 (20.5-60.0) % Russell % (Auto) 6.9 (1.7-12.0) % Eos % (Auto) 1.8 (0.9-7.0) % Baso % (Auto) 0.5 (0.2-2.0) % Neut # (Auto) 2.9 (1.4-6.5) 10^3/uL Lymph # (Auto) 2.7 (1.2-3.8) 10^3/uL Russell # (Auto) 0.4 (0.3-0.8) 10^3/uL Eos # (Auto) 0.1 (0.0-0.7) 10^3/uL Baso # (Auto) 0.0 (0.0-0.1) 10^3/uL Abs Immat Gran (auto) 0.02 (0.00-0.03) 10^3/uL Imm/Tot Granulo (auto) 0.3 (0.0-0.5) % D-Dimer 2.52 H* (<=0.59) mg/L FEU Sodium 140 (136-145) mmol/L Potassium 3.9 (3.5-5.1) mmol/L Chloride 105 (98-107) mmol/L Carbon Dioxide 26.8 (21.0-32.0) mmol/L Anion Gap 12.1 BUN 9.0 (7.0-18.0) mg/dL Creatinine 0.56 (0.55-1.02) mg/dL Est GFR ( Amer) >60 (>=60 mL/min/1.73m^2) Est GFR (Non-Af Amer) >60 (>=60 mL/min/1.73m^2) BUN/Creatinine Ratio 16.1 Glucose 98 (74-106) mg/dL Lactate 0.9 (0.4-2.0) mmol/L Calcium 8.4 L (8.5-10.1) mg/dL Total Bilirubin 0.5 (0.2-1.0) mg/dL AST 14 L (15-37) U/L ALT 16 (14-59) U/L Alkaline Phosphatase 69 (46-116) U/L Troponin I High Sens <4.0 L (4.0-51.3) pg/mL Total Protein 6.2 L (6.4-8.2) g/dL Albumin 2.9 L (3.4-5.0) g/dL Globulin 3.3 g/dL Albumin/Globulin Ratio 0.9 Urine Color Lt. yellow (YELLOW) Urine Clarity Clear (CLEAR) Urine pH 7.0 (5.0-9.0) Ur Specific [place] <=1.005 A (1.005-1.025) Urine Protein Negative (NEG/TRACE) mg/dL Urine Glucose (UA) Negative (NEGATIVE) mg/dL Urine Ketones Negative (NEGATIVE) mg/dL Urine Occult Blood Large A (NEGATIVE) Urine Nitrite Negative (NEGATIVE) Urine Bilirubin Negative (NEGATIVE) Urine Urobilinogen 0.2 (0.2-1.0) EU/dL Ur Leukocyte Esterase Small A (NEGATIVE) Urine RBC 2-5 A (0-2) #/HPF Urine WBC 0-2 A (NONE SEEN) #/HPF Ur Squamous Epith Cells Few A (NONE/RARE) #/LPF Ur Transition Epith Cell Rare A (NONE SEEN) #/LPF Urine Crystals None seen (None Seen) #/HPF Urine Bacteria Small A (NONE SEEN) #/HPF Urine Casts None seen (NONE SEEN) #/LPF Urine Mucus None seen (NONE SEEN) Ur Culture Indicated? [facility] [place] ECG Data Attestation: I personally reviewed and interpreted this ECG as follows: (Sinus bradycardia with sinus arrhythmia at 40 bpm, right axis deviation, low QRS in chest leads, no acute ST segment elevation or T wave inversion) Discharge Plan Discharge Chief Complaint: Abdominal Pain Clinical Impression: Abdominal pain, Constipation Prescriptions / Home Meds: No Action pantoprazole 40 mg tablet,delayed release (DR/EC) 40 mg PO DAILY citalopram [Celexa] 20 mg tablet 10 mg PO DAILY meclizine 25 mg tablet 25 mg PO QID PRN (Reason: dizziness) Qty: 20 0RF ondansetron 4 mg tablet,disintegrating 4 mg PO Q6H PRN (Reason: nausea and vomiting) Qty: 20 0RF PNV cmb#95-ferrous fumarate-FA [] 28 mg iron- 800 mcg tablet 1 tab PO DAILY metoclopramide HCl 10 mg tablet 10 mg PO PRN ibuprofen 800 mg tablet 800 mg PO Q8H PRN (Reason: pain) 14 Days Qty: 40 0RF oxycodone-acetaminophen [Percocet] 5-325 mg tablet 1 tab PO Q6H PRN (Reason: pain) 7 Days Qty: 28 0RF Print Language: Divehi Referrals: BRAULIO FUENTES [Primary Care Provider] - 1 week
[2024-07-14 02:23] LABS: Basophils Percent Auto 0.5 % (0.2-2.0); Eosinophils Absolute Auto 0.1 10^3/uL (0.0-0.7); Eosinophils Percent Auto 1.8 % (0.9-7.0); Hematocrit 35.1 % (36.0-48.0); Hemoglobin 10.9 g/dL (12.0-16.0); Immature Granulocytes Abs Auto 0.02 10^3/uL (0.00-0.03); Immature Granulocytes Pct Auto 0.3 % (0.0-0.5); Lymphocytes Absolute Auto 2.7 10^3/uL (1.2-3.8); Lymphocytes Percent Auto 43.9 % (20.5-60.0); Mean Corpuscular HGB Conc 31.1 g/dL (29.9-35.2); Mean Corpuscular Hemoglobin 24.9 pg (26.7-34.0); Mean Corpuscular Volume 80.3 fL (81.0-99.0); Mean Platelet Volume 10.6 fL (9.5-13.5); Monocytes Absolute Auto 0.4 10^3/uL (0.3-0.8); Monocytes Percent Auto 6.9 % (1.7-12.0); Neutrophils Absolute Auto 2.9 10^3/uL (1.4-6.5); Neutrophils Percent Auto 46.6 % (43.0-75.0); Platelet Count 195 10^3/uL (150-450); Red Blood Count 4.37 10^6/uL (4.20-5.40); Red Cell Distribution Width 18.1 % (11.0-15.0); White Blood Count 6.2 10^3/uL (4.0-11.0)
[2024-07-14] MEDS: 0.9 % SODIUM CHLORIDE 1,000 ML 1000 ML IV (02:24)
[2024-07-14] MEDS: ONDANSETRON PF 4 MG/2 ML VIAL IV (02:24)
[2024-07-14 02:40] LABS: D Dimer 2.52 mg/L FEU (<=0.59)
[2024-07-14 02:42] LABS: Alanine Aminotransferase 16 U/L (14-59); Albumin Globulin Ratio 0.9; Albumin Level 2.9 g/dL (3.4-5.0); Alkaline Phosphatase 69 U/L (46-116); Anion Gap 12.1; Aspartate Amino Transferase 14 U/L (15-37); BUN Creatinine Ratio 16.1; Bilirubin Total 0.5 mg/dL (0.2-1.0); Calcium 8.4 mg/dL (8.5-10.1); Carbon Dioxide 26.8 mmol/L (21.0-32.0); Chloride 105 mmol/L (98-107); Estimated GFR (African America >60 (>=60 mL/min/1.73m^2); Estimated GFR (Non-African Ame >60 (>=60 mL/min/1.73m^2); Globulin 3.3 g/dL; Glucose 98 mg/dL (74-106); Lactate/Lactic Acid 0.9 mmol/L (0.4-2.0); Potassium 3.9 mmol/L (3.5-5.1); Sodium 140 mmol/L (136-145); Total Protein 6.2 g/dL (6.4-8.2); Troponin I High Sensitivity <4.0 pg/mL (4.0-51.3)
--- NOTE | 2024-07-14 04:01 | PC.NURSE ---
Urine sent to lab. Pt scanned for PVR --this was found to be 20 ml.
[2024-07-14 04:33] LABS: Bilirubin Urine NEGATIVE (NEGATIVE); Blood Urine LARGE (NEGATIVE); Clarity Urine CLEAR (CLEAR); Color Urine LT. YELLOW (YELLOW); Glucose Urine UA NEGATIVE (NEGATIVE); Ketones Urine NEGATIVE (NEGATIVE); Leukocyte Esterase Urine SMALL (NEGATIVE); Nitrite Urine NEGATIVE (NEGATIVE); Protein Urine NEGATIVE (NEG/TRACE); Specific Gravity Urine <=1.005 (1.005-1.025); Urobilinogen Urine 0.2 EU/dL (0.2-1.0)
[2024-07-14 04:41] LABS: Bacteria Urine SMALL #/HPF (NONE SEEN); Cast Seen? NONE SEEN #/LPF (NONE SEEN); Crystals Seen? None Seen #/HPF (None Seen); Mucus Urine NONE SEEN (NONE SEEN); Squamous Epithelial Cell Urine FEW #/LPF (NONE/RARE); Transitional Epi Cells Urine RARE #/LPF (NONE SEEN); Urine Culture Indicated YES-FRMC; WBC Urine 0-2 #/HPF (NONE SEEN)
[2024-07-14] MEDS: DOCUSATE SODIUM 100 MG CAPSULE PO (05:04)
[2024-07-14 05:07] VITALS: BP 141/80; PULSE 80; O2SAT 98
== END 2024-07-14 05:09 | disposition home or self-care (01) ==
PROVIDERS: Emergency Provider Emergency Medicine; PCP Nurse Practitioner Family
DX: O90.89 Other complications of the puerperium, not elsewhere classified (principal); R10.9 Unspecified abdominal pain; O99.63 Diseases of the digestive system complicating the puerperium; K59.00 Constipation, unspecified
CPT/HCPCS: 36415; 71275; 74174; 80053; 81001; 83605; 84484; 85025; 85378; 87086; 93005; 96374; 99285; J2405; Q9967

== ENCOUNTER 2024-11-19 09:59 | Outpatient (OUT) | payer BC, SELFPAY ==
--- OUTSIDE RECORDS SUMMARY | 2024-11-17 05:59 | XMS_ITS | Continuity of Care Document ---
Author Organization [facility] Address [address] [place] [address] Phone Care Team Providers Care Insulation Hoseman Name Role Phone Britt Harris APRN Primary Care Provider Ben Rose MD Attending Provider Britt Harris APRN Attending Provider Care Teams Patient Care Team Team Status: Active Member Role Status Dates Britt Harris APRN CARE COORDINATION MANAGER-C Primary Care Provider Active Visit Care Team Team Status: Inactive Member Role Status Dates Britt Harris APRN CARE COORDINATION MANAGER-C Primary Care Provider Active Start: September 08, 2024 End: September 08, 2024 Ben Rose MD Attending Provider Active S tart: September 08, 2024 End: September 08, 2024 Patient Care Team Team Status: Inactive Member Role Status Dates Britt Harris APRN CARE COORDINATION MANAGER-C Primary Care Provider Active Start: November 17, 2024 End: November 17, 2024 FRANNIE Jung Attending Provider Act ramsey Start: November 17, 2024 End: November 17, 2024 Chief Complaint and Reason for Visit Chief Complaint Admit Date 6 month follow up September 08, 2024 2:10p m hairloss, loss of appetite November 17, 2024 9:26am Reason for Visit Admit Date Chronic GERD September 08, 2024 2:10p m Anxiety November 17, 2024 9: 26am Easy bruising November 17, 2024 9: 26am Hair thinning November 17, 2024 9: 26am Allergies, Adverse Reactions, Alerts Allergen Type Severity Reaction Last Updated Verified Status Penicillins Allergy Unknown Rash November 17, 2024 9:27am Yes Active Social History Smoking Status Status Start Date End Date Date of Observa tion Never smoked tobacco (finding) February 22, 2021 12:53pm Observation Status Observation Response Date of Response Legal Sex Female (finding) Sex Assigned At Female 1995 Status N November 17 Family History Relationship Condition Age at Onset Recorded Date/T darrius grandparent Malignant neoplasm of breast Unknown mother Colitis Unknown Problems Active Problems Medical Problem Onset Date Status Comments Fatigue Unknown Active Irregular menses Unknown Active 26 weeks gestation of Unknown Active Anxiety Unknown Active Gastritis Unknown Active Wellness examination Unknown Active Easy bruising Unknown Active Screening for metabolic disorder Unknown Active Atypical chest pain Unknown Active Screening for lipid disorders Unknown Active Vertigo Unknown Active Chronic GERD Unknown Active Constipation Unknown Active Vitamin D deficiency Unknown Active Hair thinning Unknown Active Inactive/Resolved Problems Medical Problem Onset Date Status Comments Dyspepsia and disorder of function of stomach Unknown Resolved Problem List clean-u p per request of Phys. EHR Cmte Diarrhea Unknown Resolved Problem List cl alex-up per request of Phys. EHR Cmte GERD (gastroesophageal reflu x disease) Unknown Resolved Problem List clean-u p per request of Phys. EHR Cmte Abdominal pain Unknown Resolved Problem List clean-up per request of Phys. EHR Cmte Medications Medication Status Dose Units Route Directions Qty Days St art Date Stop Date End Date Instructions Adherence Pantoprazol e 40 mg tablet,huber yed release (DR/EC) Discont inued 40 MG PO Daily August 05, 2023 11:17a m October 29, 2023 1:39p m Omeprazole 40 mg capsule,del ayed release(DR/ EC) Discont inued 40 MG PO Daily August 28, 2023 12:00a m October 29, 2023 1:39p m 30 minutes prior to eating Esomeprazol e Magnesium 40 mg capsule,del ayed release(DR/ EC) Discont inued 40 MG PO Daily October 29, 2023 12:00a m Octob er 2023 9:06a m Esomeprazol e Magnesium 40 mg capsule,del ayed release(DR/ EC) Discont inued 40 MG PO Daily Janobe r 2023 12:00a m Decem thuy 2023 2:17p m Esomeprazol e Magnesium 40 mg capsule,del ayed release(DR/ EC) Discont inued 40 MG PO Daily 2024 1:00am August 12, 2024 2:14p m Take 1 capsule orally 30 minutes before morning meal. Pantoprazol e (Protonix) 40 mg tablet,huber yed release (DR/EC) Discont inued 40 MG PO Daily 2024 1:00am August 12, 2024 2:13p m Take 1 tablet orally 30 minutes before morning meal. Esomeprazol e Magnesium 40 mg capsule,del ayed release(DR/ EC) Discont inued 40 MG PO Daily August 12, 2024 2:14pm Augus t 2024 9:34a m Take 1 capsule orally 30 minutes before morning meal. Lactobacill us Combination No.4 (Probiotic) 3 billion cell Capsule Discont inued 3000 MMU CELLS PO Daily Novem er 2020 1:00am Octob er 2023 9:09a m Omeprazole 20 mg capsule,del ayed release(DR/ EC) Discont inued 20 MG PO Dece er 2023 1:00am 2024 11:41 am Bupropion Hcl 150 mg tablet extended release 24 hr Discont inued MG PO Dece er 2023 1:00am ry 2024 11:42 am Metoclopram hussein Hcl 10 mg tablet Discont inued 10 MG PO [facility] er 2023 1:00am September 08, 2024 2:16p m Omeprazole 40 mg capsule,del ayed release(DR/ EC) Discont inued 40 MG PO Daily er 2023 1:00am May 8th, 2025 2:13p m Metoclopram hussein Hcl 10 mg tablet Active 10 MG PO as needed September 08, 2024 2:15pm Complies with drug therapy Citalopram (Celexa) 20 mg tablet Active 20 MG PO Daily September 08, 2024 12:00a m Complies with drug therapy Esomeprazol e Magnesium 40 mg capsule,del ayed release(DR/ EC) Active 40 MG PO Twice daily 60 30 September 08, 2024 12:00a m Take 1 capsule orally 30 minutes before morning meal and 30 minutes before evening meal. Complies with drug therapy Loratadine (Claritin) 10 mg tablet Active 10 MG PO Daily August 05, 2023 12:00a m Complies with drug therapy Pantoprazol e 40 mg tablet,huber yed release (DR/EC) Discont inued 40 MG PO Daily August 05, 2023 12:00a m August 05, 2023 11:18 am Citalopram 20 mg tablet Discont inued 20 MG PO Daily August 06, 2023 12:00a m Octob er 2023 9:06a m vitamin d Discont inued PO August 06, 2023 12:00a m Octob er 2023 9:09a m Womens Multi Discont inued PO August 06, 2023 12:00a m Octob er 2023 9:09a m Omeprazole 40 mg capsule,del ayed release(DR/ EC) Discont inued 40 MG PO Daily Octobe r 2023 12:00a m Octob er 2023 10:05 am Meclizine 25 mg tablet Discont inued 25 MG PO as needed Octobe r 2023 12:00a m Octob er 2023 9:33a m 75-Iron Fum-Folic-O m3 (One Daily ) 28-800-440 mg-mcg-mg combo pack Active PKG PO Octobe r 2023 12:00a m Complies with drug therapy Meclizine 25 mg tablet Active 25 MG PO Three times daily as needed for dizziness 90 30 Octobe r 2023 9:25am Complies with drug therapy Bupropion Hcl 150 mg tablet extended release 24 hr Discont inued MG PO Twice daily 2024 11:42a m September 08, 2024 2:15p m Buspirone 5 mg tablet Active 5 MG PO Twice daily 60 30 November 17, 2024 12:00a m Complies with drug therapy Immunizations Immunization Event Date Not Given Reason Dose Number Radio Broadcaster Lot Number Vaccine Information Statement (VIS) Detail Administration Location Human Papillomavirus Vaccine, quadrivalent November 08, 2014 Vital Signs Vital Reading Result Reference Range Collection Date/Time Height 64.75 [in_i] September 08, 2024 2:13pm Weight 77.11 kg September 08, 2024 2:13pm Heart Rate 71 /min 60-100 September 08, 2024 2:13pm BP Systolic 135 mm[Hg] 100-140 September 08, 2024 2:13pm BP Diastolic 80 mm[Hg] 60-100 September 08, 2024 2:13pm BMI (Body Mass Index) 28.5 kg/m2 September 082024 2:13pm Height 64.75 [in_i] November 17 9:29am Weight 75.74 kg November 17 9:29am Body Temperature 97.6 [degF] 97.6-99.0 November 9:29am Heart Rate 91 /min 60-100 November 17 9:29am Oxygen saturation by Pulse oximetry 97 % 95-100 November 17, 2024 9: 29am BP Systolic 118 mm[Hg] 100-140 November 17 9:29am BP Diastolic 64 mm[Hg] 60-100 November 17 9:29am BMI (Body Mass Index) 28.0 kg/m2 November 17, 2024 9:29am Advance Directives Advance Directive Response Recorded Date/ Time Advance Directives No February 11:33am Insurance Providers Guarantor Will Shay Address [address] [facility] [address] Contact Info. Home Phone: Payer Policy Id Subscriber's Name Subscriber Id Effective Date Expiration Date [facility] [id number] Will Shay [id number] Esther CHEUNG/AKILA [id number] Jessica Shay [id number] [place] Advantage [id number] Will Shay [id number] [employer] [id number] Will Shay [id number] Encounters Encounter Location(s) Arrival/Admit Date Discharge/Depart Date Provider(s) Departed Physician/Prov ider Office Visit -[facility] September 08, 2024 2:10pm September 08, 2024 2:31pm Ben Rose MD Departed Physician/Prov ider Office Visit -[facility] November 17, 2024 9:26am November 17, 2024 9:58am Britt Harris APRN CNP Recent Diagnosis Onset Date Admit Date Chronic GERD Unknown September 08, 2024 2 :10pm Anxiety Unknown November 17 9:26am Easy bruising Unknown November 17 9:26am Hair thinning Unknown November 17 9:26am Assessments Diagnosis Onset Date Resolution Status Admit Date Chronic GERD acute September 08 2:10pm Anxiety acute November 17, 025 9:26am Easy bruising acute November 9:26am Hair thinning acute November 9:26am Plan of Treatment Author Ben Rose [facility] Authored September 08, 2024 2:31p m We did extensive counseling about dietary and lifestyle modification. Additionally getting back to her prepregnancy weight will be helpful in reducing her heartburn symptoms. She does not have any correctable organic causes such as a large hiatal hernia. We will increase her esomeprazole to 40 mg twice daily. I explained to her that this is present in breastmilk mostly within the first 4 hours of taking her medicine, however it is present and microtip picogram amounts, additionally I did explain that esomeprazole is a medicine that we do give babies and children with severe heartburn so micro exposures would generally be safe. She will decide whether she wants to pump and dump after taking her medicine for the first couple hours or not. I will see her back in about 8 weeks to ensure her symptoms are improving on the higher dose of esomeprazole, if not we will need to try to get her on Dexlansoprazole Moderate complexity medical decision making. I spent greater than 30 minutes for services relating to this encounter on this date, including reviewing other provider documentation, labs and radiology studies, endoscopy reports, discussion and counseling with patient/family and formulating a plan of care. Reviewing the chart prior to the visit. Time spent after the visit on documentation. Future Tests Future scheduled test information is unavailable Pending Tests Pending diagnostic test information is unavailable Future Visits Future appointment information is unavailable Referrals to Other Providers Referral information is unavailable Future Procedures Procedure Name Ordered Date Scheduled Date Iron and TIBC Profile November 17, 2024 9:46am Thyroid Stim Hormone w/Rflx November 17, 2024 9: 46am Future Medications Future medication information is unavailable Patient Instructions Patient instructions are unavailable
--- OUTSIDE RECORDS SUMMARY | 2024-11-19 10:02 | XMS_ITS | Encounter Summary ---
Author Organization [facility] Address [address] [place] [address] Care Team Providers Care Wrapper Sizer Name Role Phone Unavailable Primary Care Provider Unavailabl e Encounter Details Date Type Department Care Team (Late st Contact Info) Description 03/02/2024 Clinisync Result Encounter [facility] External Department Unsolicited Eddie Bhatt, DO [address] [facility] [address] Sou[address] Aburto [place], [place] [id number] Social History Tobacco Use Types Packs/Day Years Used Date Smoking Tobacco: Never Smokeless Tobacco: Never Alcohol Use Standard Drinks/Week Comments Never 0 (1 standard drink = 0.6 oz pur e alcohol) Comments Yes Sex and Gender Information Value Date Recorded Sex Assigned at Not on file Legal Sex Female 7:14 PM EDT Gender Identity Not on file Sexual Orientation Not on file documented as of this encounter Plan of Treatment Not on file documented as of this encounter Procedures Procedure Name Priority Date/Time Associated Diagnosis Comments US OB CERVICAL LENGTH 03/02/2024 6:27 AM EST documented in this encounter Results * US OB CERVICAL LENGTH (03/02/2024 6:27 AM EST) Anatomical Region Laterality Modality Other 03/02/2024 6:27 AM EST Narrative 03/02/2024 6:29 AM EST The [address] [address] Ultrasound Report Signed Patient: WILL DAAMS MR#: [id number] : 1995 Acct:[id number] Age/Sex: 28 / F ADM Date: 03/01/24 Loc: [facility] Attending Dr: Eddie Bhatt D.O. Ordering Physician: Eddie Bhatt D.O. Date of Service: 03/01/24 Procedure(s): US OB cervical length Accession Number(s): [id number] cc: Eddie Bhatt D.O.; BRAULIO FUENTES [place] [id number] Patient Name: WILL ADAMS MRN: [id number] date: 1995 Sex: F Assigned Patient Location: [facility] Current Patient Location: Accession/Order Number: [id number] Exam Date: 03/01/2024 13:45 Report Date: 03/02/2024 06:27 At the request of: EDDIE BHATT Procedure: US OB cervical length EXAMINATION: US OB anatomy, US OB cervical length HISTORY: ANATOMY COMPARISON: No relevant comparison available. TECHNIQUE: Transabdominal sonographic examination was performed for obstetrical and evaluation. FINDINGS: Number: 1 Heart Rate: 136 bpm Amniotic Fluid Volume: Subjectively normal Placental Location: ANTERIOR with lower margin 7.3 cm from os. Cervix Length: 4.43 cm ; closed. ANATOMY: Normal Structures -cerebellum, choroid plexus, cisterna magna, lateral cerebral ventricles, orbits, midline falx, hard palate, four-chamber heart, RVOT, LVOT, stomach, kidneys, bladder, umbilical cord insertion into abdomen, three-vessel cord, cervical spine, thoracic spine, lumbar spine, sacral spine, right upper extremity, left upper extremity, right lower extremity, left lower extremity. SUBOPTIMALLY SEEN: None ABNORMALITIES: None BIOMETRY: BPD: 4.85 cm; 20 weeks 5 days; 85.30 % HC: 17.74 cm; 20 weeks 2 days; 66.20 % AC: 15.32 cm; 20 weeks 4 days; 71.50 % FL: 3.72 cm; 21 weeks 6 days; 96.30 % EFW:366.45 g; 97 % FL/AC: 24.28 FL/BPD: 76.70 HC/AC: 1.16 GESTATIONAL AGE: Age by EDC: 19 weeks 5 days Age by current US: 20 weeks 6 days ROLANDO by current US: 2024-07-13 ROLANDO by EDC: 2024-07-21 US/US OB cervical length IMPRESSION: 1. Single live intrauterine with growth detailed above. Electronically authenticated by: TREVOR GUILLEN Date: 03/02/2024 06:27 Dictated By: Trevor Guillen M.D. Signed By: 03/02/24628 DD/ 6 TD/TT: Manager Hiv: Procedure Note Radiology, Radiologist, MD - 03/02/2024 [place] [address] Ultrasound Report Signed Patient: WILL ADAMS JMR#: [id number] : 1995Acct:[id number] Age/Sex: 28 FADM Date: 03/01/24 Loc: [facility] Attending Dr: Eddie Bhatt D.O. Ordering Physician: Eddie Bhatt D.O. Date of Service: 03/01/24 Procedure(s): US OB cervical length Accession Number(s): [id number] cc: Eddie Bhatt D.O.; BRAULIO FUENTES [place] [address] Patient Name: WILL ADAMS MRN: [id number] date: 1995 Sex: F Assigned Patient Location: [facility] Current Patient Location: Accession/Order Number: [id number] Exam Date: 03/01/2024 13:45 Report Date: 03/02/2024 06:27 At the request of: EDDIE BHATT Procedure: US OB cervical length EXAMINATION: US OB anatomy, US OB cervical length HISTORY: ANATOMY COMPARISON: No relevant comparison available. TECHNIQUE: Transabdominal sonographic examination was performed for obstetrical and evaluation. FINDINGS: Number: 1 Heart Rate: 136 bpm Amniotic Fluid Volume: Subjectively normal Placental Location: ANTERIOR with lower margin 7.3 cm from os. Cervix Length: 4.43 cm ; closed. ANATOMY: Normal Structures -cerebellum, choroid plexus, cisterna magna, lateral cerebral ventricles, orbits, midline falx, hard palate, four-chamberheart, RVOT, LVOT, stomach, kidneys, bladder, umbilical cord insertion intoabdomen, three-vessel cord, cervical spine, thoracic spine, lumbar spine, sacralspine, right upper extremity, left upper extremity, right lower extremity, leftlower extremity. SUBOPTIMALLY SEEN: None ABNORMALITIES: None BIOMETRY: BPD: 4.85 cm; 20 weeks 5 days; 85.30 % HC: 17.74 cm; 20 weeks 2 days; 66.20 % AC: 15.32 cm; 20 weeks 4 days; 71.50 % FL: 3.72 cm; 21 weeks 6 days; 96.30 % EFW:366.45 g; 97 % FL/AC: 24.28 FL/BPD: 76.70 HC/AC: 1.16 GESTATIONAL AGE: Age by EDC: 19 weeks 5 days Age by current US: 20 weeks 6 days ROLANDO by current US: 2024-07-13 ROLANDO by EDC: 2024-07-21 US/US OB cervical length IMPRESSION: 1. Single live intrauterine with growth detailed above. Electronically authenticated by: TREVOR GUILLEN Date: 03/02/2024 06:27 Dictated By: Trevor Guillen M.D. Signed By:03/02/24628 DD/ 6 TD/TT: Manager Hiv: Eddie Bhatt DO [facility] Final Result documented in this encounter Visit Diagnoses Not on filedocumented in this encounter
--- OUTSIDE RECORDS SUMMARY | 2024-11-19 10:02 | XMS_ITS | Patient Health Record ---
Author Organization [facility] [place] Address [address] [place] [address] Care Team Providers Care Ocean Freight Agent Name Role Phone None, Unknown or Primary Care Provider Unavailab le Allergies Allergen (clinical drug ingredient) Drug/Non Drug Allergy documented on EMR Reaction Allergy Type Onset Date Status pcn (uncoded) rash Allergy Active seasonal allergies (uncoded) Unknown Allergy Active Reason For Referral No Information Medications Medication SIG (Take, Route, Frequency, Duration) Notes Start Date End Date Status Sulfamethoxazole-Trimetho prim 200-40 MG/5ML 5 ml Orally BID 11/04/2017 Not-Ta ramya Zofran 8 MG 1 tablet Orally Twic e a day for 5 days 11/13/2017 Not-Taking Zithromax Z-Fredrick 250 MG 2 tablets on the first day, then 1 tablet daily for 4 days Orally Once a day for 5 day(s) 11/13/2017 Not-Taki ng Clindamycin Phosphate 1 % 1 application to affected area Externally Once a day 09/08/2017 Active Fexofenadine HCl 180 MG 1 tablet as need ed Orally Once a day for 30 day(s) 09/29/2017 Active Lexapro 10 MG 1 tablet Orally Once a day for 30 Active Bactrim DS 800-160 MG 1 tablet Orally Daily 2017 Not-Taking Immunizations Vaccine Route Administration Date Status Comme nts Tdap (Adacel) Unknown 09/08/2014 Administered Social History Tobacco Use: Social History Observation Description Date Details (start date - stop date) Never Smoker NA - NA Tobacco Use/Smoking Question Answer Notes Patient is a nonsmoker Alcohol Screen (Audit-C) Question Answer Notes Did you have a drink containing alcohol in the p ast year? No Points 0 Interpretation Negative Problems Problem Type SNOMED Code ICD Code Onset Dates Problem Status W/U Status Risk Notes Problem 434376348 Other obesity due to excess calories (E66.09) Active confirmed Problem 93696928 CONY (generalized anxiety disorder) (F41.1) Active confirmed Problem 61954847 Chronic fatigue (R53.82) Active confirmed Problem 887566986 Body mass index (BMI) of 31.0-31.9 in adult (Z68.31) Active confirmed Problem 05331584 Other depression (F32.89) Active confirmed Problem 047997 PMDD (premenstrual dysphoric disorder) (F32.81) Active confirmed Plan Of Treatment No Information Insurance Providers Payer Name Payer Address Payer Phone Subscriber Number Group Number Insured Name Patient Relationship to Insured Coverage Start Date Coverage End Date ANTHEM ACCESS PPO PLUS LOCAL PLAN [address] [place] [address] [id number] Will Verduzco Self - patient is the insured Medical (General) History Medical History History ICD Code acne scoliosis Surgical History Surgery Date(Month/Year) wisdom teeth 2014 Hospitalization History Reason Date(Month/Year) [facility] pain 11/11/17
--- OUTSIDE RECORDS SUMMARY | 2024-11-19 10:02 | XMS_ITS | Encounter Summary ---
Author Organization [facility] Address [address] [facility] [place] [address] Care Team Providers Care Control Clerk Repairs Name Role Phone Unavailable Primary Care Provider Unavailabl e Encounter Details Date Type Department Care Team (Late st Contact Info) Description 03/19/2024 Abstract [facility] [address] [facility] [place] [phone] Asif Bhatt DO [address] [place] [address] Social History Tobacco Use Types Packs/Day Years [...] on file documented as of this encounter Visit Diagnoses Not on filedocumented in this encounter
--- OUTSIDE RECORDS SUMMARY | 2024-11-19 10:02 | XMS_ITS | Encounter Summary ---
Author Organization [facility] Address [address] [place] [address] Care Team Providers Care [employer] Sales [employer] Lending Team Member Name Role Phone Wesley Jackson DO Unavailable [phone] Encounter Details Date Type Department Care Team (Late st Contact Info) Description 10/15/2022 Abstract [facility] [address] [place] [phone] Asif Bhatt DO [address] [facility] [address] [facility] [address] Sou[address] [place], [facility] Social History Tobacco Use Types Packs/Day Years [...] Diagnoses Not on filedocumented in this encounter Care Teams [employer] Team Member Relationship Specialty Start Date End Date Wesley Jackson DO [address] [place] [address] PCP - [place] [employer] 08/06/23 documented as of this encounter
--- OUTSIDE RECORDS SUMMARY | 2024-11-19 10:02 | XMS_ITS | Encounter Summary ---
Author Organization [facility] Address [address] [facility] [place] [address] Care Team Providers Care Commercial Census Taker Name Role Phone Unavailable Primary Care Provider Unavailabl e Encounter Details Date Type Department Care Team (Late st Contact Info) Description 06/29/2024 Abstract [facility] [address] [facility] [facility] [place] [phone] Asif Bhatt DO [address] [place] [address] Social History Tobacco Use Types Packs/Day Years [...]
--- OUTSIDE RECORDS SUMMARY | 2024-11-19 10:02 | XMS_ITS | Encounter Summary ---
Author Organization [facility] Address [address] [facility] [place] [address] Care Team Providers Care Refuge Manager Name Role Phone Unavailable Primary Care Provider Unavailabl e Encounter Details Date Type Department Care Team (Late st Contact Info) Description 03/19/2024 Abstract [facility] [address] [place] [phone] Asif Bhatt DO [address] [place] [address] Social History Tobacco Use Types Packs/Day Years [...]
--- OUTSIDE RECORDS SUMMARY | 2024-11-19 10:02 | XMS_ITS | Clinical Summary ---
Author Organization [facility] Healthcare Address [address] [place] [address] Care Team Providers Care Urban Design Consultant Name Role Phone Unavailable Primary Care Provider Unavailabl e Allergies Active Allergy Reactions Criticality Noted Date Comments Buspirone 09/03/2022 Minocycline Hives 09/03/2022 Penicillins Rash Low 09/03/2022 Medications pantoprazole (ProtoNix) 40 MG EC tablet Take 40 mg by mouth in the morning. Take before meals. Do not crush, chew, or split.. Active citalopram (CeleXA) 20 MG tabletIndication s:Anxiety Take 1 tablet (20 mg) by mouth Daily 30 tablet 11 07/05/2024 Active Active Problems Problem Noted Date Diagnosed Date 25 weeks gestation of ([facility]) 2023 Second trimester ([facility]) 04/05/2024 Acid reflux 09/13/2022 Acne 09/13/2022 Acquired scoliosis 09/13/2022 Acute upper respiratory infection 09/13/2022 Adjustment disorder with depressed mood 09/14/19 23 Allergic rhinitis 09/13/2022 Anxiety 09/13/2022 Arthralgia of multiple joints 09/13/2022 Dysmenorrhea 09/13/2022 Family history of thyroid disease 09/13/2022 Hematochezia 09/13/2022 Low back pain 09/13/2022 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 Subcutaneous nodule 09/13/2022 Tinea pedis 09/13/2022 Family History Medical History Relation Name Comments Mental illness Mother Melanoma Neg Hx Relation Name Status Comments Father Alive Mother Alive Social History Tobacco Use Types Packs/Day Years Used Date Smoking Tobacco: Never Smokeless Tobacco: Never Tobacco Cessation:Counseling Given: Not Answered Alcohol Use Standard Drinks/Week Comments Never 0 (1 standard drink = 0.6 oz pur e alcohol) Comments No Sex and Gender Information Value Date Recorded Sex Assigned at Not on file Legal Sex Female 7:14 PM EDT Gender Identity Not on file Sexual Orientation Not on file Last Filed Vital Signs Vital Sign Reading Time Taken Comments Blood Pressure 118/78 07/05/2024 3:29 PM EDT Pulse 130 03/27/2023 10:31 AM EST pt c/o anxiety Temperature 36.7 C (98 F) 03/27/2023 10:31 AM EST Respiratory Rate - - Oxygen Saturation 99% 03/27/2023 10: 31 AM EST Inhaled Oxygen Concentration - - Weight 85.2 kg (187 lb 12.8 oz) 07/05/2024 3:29 PM EDT Height 172.7 cm (5' 8 ) 12/25/2022 10:5 3 AM EDT Body Mass Index 28.55 12/25/2022 10:53 AM EDT Plan of Treatment Not on file Insurance [facility]
--- OUTSIDE RECORDS SUMMARY | 2024-11-19 10:02 | XMS_ITS | Encounter Summary ---
Author Organization [facility] Address [address] [place] [address] Care Team Providers Care Mutuel Machine Operator Name Role Phone Wesley Jackson DO Unavailable [phone] Encounter Details Date Type Department Care Team (Late st Contact Info) Description 11/14/2022 Abstract [facility] [address] [facility] [place] [phone] Kirsty Fenton PA [address] [facility] [address] [place], [facility] Social History Tobacco Use Types Packs/Day Years [...] on filedocumented in this encounter Care Teams Mutuel Machine Operator Relationship Specialty Start Date End Date Wesley Jackson DO [address] [place] [address] PCP - Esther Commercial 08/06/23 documented as of this encounter
--- OUTSIDE RECORDS SUMMARY | 2024-11-19 10:02 | XMS_ITS | Encounter Summary ---
Author Organization [facility] Address [address] [facility] [place] [address] Care Team Providers Care Transportation Aide Name Role Phone Unavailable Primary Care Provider Unavailabl e Encounter Details Date Type Department Care Team (Late st Contact Info) Description 02/09/2024 Abstract [facility] [address] [facility] [place] [phone] Asif Bhatt DO [address] [place] [address] Social History Tobacco Use Types Packs/Day Years [...]
--- OUTSIDE RECORDS SUMMARY | 2024-11-19 10:02 | XMS_ITS | Encounter Summary ---
Author Organization [facility] Address [address] [facility] [place] [address] Care Team Providers Care Vessel Captain Name Role Phone Unavailable Primary Care Provider Unavailabl e Encounter Details Date Type Department Care Team (Late st Contact Info) Description 04/01/2024 Abstract [facility] [address] [facility] [place] [phone] Asif Bhatt DO [address] [place] [address] Social History Tobacco Use Types Packs/Day Years [...]
--- OUTSIDE RECORDS SUMMARY | 2024-11-19 10:02 | XMS_ITS | Encounter Summary ---
Author Organization [facility] Address [address] [facility] [place] [address] Care Team Providers Care Spinner Fixer Name Role Phone Unavailable Primary Care Provider Unavailabl e Encounter Details Date Type Department Care Team (Late st Contact Info) Description 04/28/2024 Abstract [facility] [address] [facility] [place] [phone] Asif Bhatt DO [address] [place] [address] Social History Tobacco Use Types Packs/Day Years [...]
--- OUTSIDE RECORDS SUMMARY | 2024-11-19 10:02 | XMS_ITS | Encounter Summary ---
Author Organization [facility] Address [address] [place] [address] Care Team Providers Care Snap Attacher Name Role Phone Wesley Jackson DO Unavailable [phone] Encounter Details Date Type Department Care Team (Late st Contact Info) Description 10/04/2022 Abstract [facility] [address] [facility] [phone] Asif Bhatt DO [address] [facility] [address] Soumya Elizabeth, [facility] Social History Tobacco Use Types Packs/Day [...] on filedocumented in this encounter Care Teams Snap Attacher Relationship Specialty Start Date End Date Wesley Jackson DO [address] [place] [address] PCP - [place] Commercial 08/06/23 documented as of this encounter
--- OUTSIDE RECORDS SUMMARY | 2024-11-19 10:02 | XMS_ITS | Encounter Summary ---
Author Organization [facility] Address [address] [place] [address] Care Team Providers Care Events Director Name Role Phone Unavailable Primary Care Provider Unavailabl e Encounter Details Date Type Department Care Team (Late st Contact Info) Description 03/02/2024 Clinisync Result Encounter [facility] External Department Unsolicited Eddie Bhatt, DO [address] [facility] [address] Soumya Aburto [place] [phone] Social History Tobacco Use Types Packs/Day Years [...] Priority Date/Time Associated Diagnosis Comments US OB ANATOMY 03/02/2024 6:27 AM EST documented in this encounter Results * US OB ANATOMY (03/02/2024 6:27 AM EST) Anatomical Region Laterality Modality Other 03/02/2024 6:27 AM EST Narrative 03/02/2024 6:29 AM EST The [address] [address] Ultrasound Report Signed Patient: WILL ADAMS MR#: [id number] : 1995 Acct:[id number] Age/Sex: 28 / F ADM Date: 03/01/24 Loc: [facility] Attending Dr: Eddie Bhatt D.O. Ordering Physician: Eddie Bhatt D.O. Date of Service: 03/01/24 Procedure(s): US OB anatomy Accession Number(s): [id number] cc: Eddie Bhatt D.O.; BRAULIO FUENTES [place] [address] Patient Name: WILL ADAMS MRN: [facility]:[id number] date: 1995 Sex: F Assigned Patient Location: [facility] Current Patient Location: Accession/Order Number: [id number] Exam Date: 03/01/2024 13:45 Report Date: 03/02/2024 06:27 At the request of: EDDIE BHATT Procedure: US OB anatomy EXAMINATION: US OB anatomy, US OB cervical [...] 2024-07-13 ROLANDO by EDC: 2024-07-21 US/US OB anatomy IMPRESSION: 1. Single live intrauterine with growth detailed above. Electronically authenticated by: TREVOR GUILLEN Date: 03/02/2024 06:27 Dictated By: Trevor Guillen M.D. Signed By: 03/02/24628 DD/ 6 TD/TT: Commercial Lender: Procedure Note Radiology, Radiologist, MD - 03/02/2024 [place] [address] Ultrasound Report Signed Patient: WILL ADAMS JMR#: [id number] : 1995Acct:[id number] Age/Sex: Date: 03/01/24 Loc: [facility] Attending Dr: Eddie Bhatt D.O. Ordering Physician: Eddie Bhatt D.O. Date of Service: 03/01/24 Procedure(s): US OB anatomy Accession Number(s): [id number] cc: Eddie Bhatt D.O.; BRAULIO FUENTES [place] [id number] Patient Name: WILL ADAMS MRN: [id number] date: 1995 Sex: F Assigned Patient Location: [facility] Current Patient Location: Accession/Order Number: [id number] Exam Date: 03/01/2024 13:45 Report Date: 03/02/2024 06:27 At the request of: EDDIE BHATT Procedure: US OB anatomy EXAMINATION: US OB anatomy, US OB cervical [...] 2024-07-13 ROLANDO by EDC: 2024-07-21 US/US OB anatomy IMPRESSION: 1. Single live intrauterine with growth detailed above. Electronically authenticated by: TREVOR GUILLEN Date: 03/02/2024 06:27 Dictated By: Trevor Guillen M.D. Signed By:03/02/24628 DD/ 6 TD/TT: Commercial Lender: Eddie Bhatt DO [facility] Final Result documented in this encounter Visit Diagnoses Not on filedocumented in this encounter
--- OUTSIDE RECORDS SUMMARY | 2024-11-19 10:03 | XMS_ITS | Encounter Summary ---
Author Organization [facility] Address [address] [facility] [place] [address] Care Team Providers Care Prosthodontist Name Role Phone Unavailable Primary Care Provider Unavailabl e Encounter Details Date Type Department Care Team (Late st Contact Info) Description 12/18/2023 Abstract [facility] [address] [place] [phone] Alana Mcclendon LPN [address] [place] [address] Social History Tobacco Use Types Packs/Day Years [...]
--- OUTSIDE RECORDS SUMMARY | 2024-11-19 10:03 | XMS_ITS | Encounter Summary ---
Author Organization [facility] Address [address] [facility] [place] [address] Care Team Providers Care Outreach Team Member Name Role Phone Unavailable Primary Care Provider Unavailabl e Encounter Details Date Type Department Care Team (Late st Contact Info) Description 11/28/2023 Abstract [facility] [address] [facility] [place] [phone] Asif Bhatt DO [address] [place] [address] Social History Tobacco Use Types Packs/Day Years Used Date Smoking Tobacco: Never Smokeless Tobacco: Never Alcohol Use Standard Drinks/Week Comments Never 0 (1 standard drink = 0.6 oz pur e alcohol) Comments Unknown Sex and Gender Information Value Date Recorded Sex Assigned at Not on file Legal Sex Female 7:14 PM EDT Gender Identity Not on file Sexual Orientation Not on file documented as of this encounter Plan of Treatment Not on file documented as of this encounter Visit Diagnoses Not on filedocumented in this encounter
--- OUTSIDE RECORDS SUMMARY | 2024-11-19 10:03 | XMS_ITS | Encounter Summary ---
Author Organization [facility] Address [address] [facility] [place] [address] Care Team Providers Care Probate Judge Name Role Phone Unavailable Primary Care Provider Unavailabl e Encounter Details Date Type Department Care Team (Late st Contact Info) Description 12/22/2023 Abstract [facility] [address] [facility] [phone] Asif Bhatt DO [address] [place] [address] Social History Tobacco Use Types Packs/Day Years [...]
--- OUTSIDE RECORDS SUMMARY | 2024-11-19 10:03 | XMS_ITS | Encounter Summary ---
Author Organization [facility] Address [address] [facility] [place] [address] Care Team Providers Care Rugby Union Footballer Name Role Phone Unavailable Primary Care Provider Unavailabl e Encounter Details Date Type Department Care Team (Late st Contact Info) Description 11/21/2023 Abstract [facility] [address] [facility] [phone] Asif Bhatt DO [address] [place] [address] Social History Tobacco Use Types Packs/Day Years [...]
--- OUTSIDE RECORDS SUMMARY | 2024-11-19 10:03 | XMS_ITS | Encounter Summary ---
Author Organization [facility] Address [address] [place] [address] Care Team Providers Care Statistical Financial Analyst Name Role Phone Unavailable Primary Care Provider Unavailabl e Encounter Details Date Type Department Care Team (Late st Contact Info) Description 12/12/2023 Clinisync Result Encounter [facility] External Department Unsolicited Eddie Bhatt, DO [address] [facility] [address] Aburto [place], [place] [phone] Social History Tobacco Use Types Packs/Day Years [...] Priority Date/Time Associated Diagnosis Comments US OB TRANSVAGINAL 12/12/2023 11 :37 AM EDT documented in this encounter Results * US OB TRANSVAGINAL (12/12/2023 11:37 AM EDT) Anatomical Region Laterality Modality Other 12/12/2023 11:3 7 AM EDT Narrative 12/12/2023 11:39 AM EDT The [address] [address] Ultrasound Report Signed Patient: WILL ADAMS MR#: [id number] : 1995 Acct:[id number] Age/Sex: 28 / F ADM Date: 12/12/23 Loc: [facility] Attending Dr: Eddie Bhatt D.O. Ordering Physician: Eddie Bhatt D.O. Date of Service: 12/12/23 Procedure(s): US OB transvaginal Accession Number(s): [id number] cc: Eddie Bhatt D.O.; Physician,Non-Staff Talia The [place] [address] Patient Name: WILL ADAMS MRN: [id number] date: 1995 Sex: F Assigned Patient Location: [facility] Current Patient Location: [facility] Accession/Order Number: [id number] Exam Date: 12/12/2023 08:34 Report Date: 12/12/2023 11:37 At the request of: EDDIE BHATT Procedure: US OB transvaginal EXAMINATION: US OB transvaginal HISTORY: MISSED MENSES COMPARISON: No relevant comparison available. FINDINGS: GESTATIONAL SAC: Present and normal appearing. YOLK SAC: Present and normal appearing. POLE: Present and normal appearing. CARDIAC: Present. UTERUS: Normal size and appearance. OVARIES: Right: Normal. Left: Normal. CERVIX: 3.6 cm in length and closed. CUL-DE-SAC: Normal. OTHER: None. AGE BY LMP: 8 weeks 4 days ROLANDO BY LMP: 07/19/2024 AGE BY US CRL: 8 weeks 4 days ROLANDO BY US CRL: 07/19/2024 US/US OB transvaginal IMPRESSION: 1. Single live intrauterine . Electronically authenticated by: TREVOR GUILLEN Date: 12/12/2023 11:37 Dictated By: Trevor Guillen M.D. Signed By: 12/12/23 1139 DD/ 1137 TD/TT: Contact Printer Dry Film: Procedure Note Radiology, Radiologist, MD - 12/12/2023 [place] [address] Ultrasound Report Signed Patient: WILL ADAMS R#: [id number] : 1995Acct:[id number] Age/Sex: 28 / FADM Date: 12/12/23 Loc: [facility] Attending Dr: Eddie Bhatt D.O. Ordering Physician: Eddie Bhatt D.O. Date of Service: 12/12/23 Procedure(s): US OB transvaginal Accession Number(s): [id number] cc: Eddie Bhatt D.O.; Physician,Non-Staff Tal[place] [address] Patient Name: WILL ADAMS MRN: [id number] date: 1995 Sex: F Assigned Patient Location: [facility] Current Patient Location: [facility] Accession/Order Number: [id number] Exam Date: 12/12/2023 08:34 Report Date: 12/12/2023 11:37 At the request of: EDDIE BHATT Procedure: US OB transvaginal EXAMINATION: US OB transvaginal HISTORY: MISSED MENSES COMPARISON: No relevant comparison available. FINDINGS: GESTATIONAL SAC: Present and normal appearing. YOLK SAC: Present and normal appearing. POLE: Present and normal appearing. CARDIAC: Present. UTERUS: Normal size and appearance. OVARIES: Right: Normal. Left: Normal. CERVIX: 3.6 cm in length and closed. CUL-DE-SAC: Normal. OTHER: None. AGE BY LMP: 8 weeks 4 days ROLANDO BY LMP: 07/19/2024 AGE BY US CRL: 8 weeks 4 days ROLANDO BY US CRL: 07/19/2024 US/US OB transvaginal IMPRESSION: 1. Single live intrauterine . Electronically authenticated by: TREVOR GUILLEN Date: 12/12/2023 11:37 Dictated By: Trevor Guillen M.D. Signed By:12/12/23 1139 DD/ 1137 TD/TT: Contact Printer Dry Film: us Eddie Bhatt DO [facility] Final Result documented in this encounter Visit Diagnoses Not on filedocumented in this encounter
--- OUTSIDE RECORDS SUMMARY | 2024-11-19 10:03 | XMS_ITS | Encounter Summary ---
Author Organization [facility] Address [address] [facility] [place] [address] Care Team Providers Care Taper Operator Name Role Phone Unavailable Primary Care Provider Unavailabl e Encounter Details Date Type Department Care Team (Late st Contact Info) Description 12/12/2023 Abstract [facility] Elizabeth [facility] [address] [facility] [phone] Asif Bhatt DO [address] [address] Social History Tobacco Use Types Packs/Day Years [...]
--- OUTSIDE RECORDS SUMMARY | 2024-11-19 10:05 | XMS_ITS | CCD ---
Author Organization [facility] Team Providers Care Water Main P[employer] Name Role Phone Ben Rose Unavailable Mikael CONCILIATION COURT JUDGE-C, Angeles A Admitting Unavailable Mikael CONCILIATION COURT JUDGE-C, Angeles A Attending Unavailable Mikael CONCILIATION COURT JUDGE-C, Angeles A Primary Care Unavailable Mikael CONCILIATION COURT JUDGE-C, Angeles A Attending Unavailable Mikael CONCILIATION COURT JUDGE-C, Angeles A Primary Care Unavailable NOVA ., [...] ble NOVA ., DR MORGAN Admitting Unavailable ELICEO ., KIRSTY Consulting Unavailable ELICEO ., KIRSTY Attending Unavailable ELICEO ., KIRSTY Admitting Unavailable MIKAEL, ANGELES Primary Care Unavailable MIKAEL, ANGELES Primary Care Unavailable NOVA ., DR MORGAN Attending Unavailable EARLIMART, DR EDITH Corey Consulting Unavailable NOVA ., DR MORGAN Admitting Unavailable NOVA ., DR MORGAN Consulting Unavailable NOVA ., DR MORGAN Consulting Unavailable NOVA ., DR MORGAN Admitting Unavailable REQUEST, DR NONE LISTED Primary Care Unavaila ble NOVA ., DR MORGAN Attending Unavailable MIKAEL, ANGELES Primary Care Unavailable NOVA ., DR MORGAN Attending Unavailable EARLIMART, DR EDITH Corey Consulting Unavailable NOVA ., [...] Unavailable Primary Care Provider Unavailabl e NOVA, ASIF Attending Unavailable ELICEO, KIRSTY Attending Unavailable ELICEO, KIRSTY Referring Unavailable NOVA, ASIF Attending Unavailable NOVA, ASIF Attending Unavailable ELICEO, KIRSTY Attending Unavailable ELICEO, KIRSTY Attending Unavailable NOVA, ASIF Attending Unavailable NOVA, ASIF Attending Unavailable NOVA, ASIF Attending Unavailable ELICEO, KIRSTY Attending Unavailable NOVA, ASIF Attending Unavailable NOVA, ASIF Attending Unavailable Marker , Jennifer Wilcox Attending Provider [phone] MarkerJennifer Attending Unavailable Marker, Jennifer Wilcox Admitting Unavailable Britt Harris APRN Primary Care Provider Ben Rose MD Attending Provider Britt Harris APRN Attending Provider [phone] Allergies Allergy Classification Reported Allergen(s) Allergy Type Date of Onset Reaction(s) Facility (3 sources) Penicillin G Drug Allergy Unknown [employer] Other (1 source) busPIRone; Translations: [buspirone hcl] Drug Allergy [facility] (1 source) Coconut extract; Translations: [coconut] Drug Allergy [facility] (20 sources) Penicillins; Translations: [penicillins] Propensity to adverse reactions to drug (disorder) 3 Rash [facility] (1 source) Amoxicillin Drug Allergy [...] as directed 6 tablet 03/27/2023 05/11/2024 Discontinued busPIRone hydrochloride 5 mg oral tablet (1 source) Start: 11-17-2024 take 1 tablet by mouth twice daily Buspirone 5 mg tablet Active 5 MG PO Twice daily 60 November 17, 2024 12:00am Complies with drug therapy Cetirizine (2 sources) Histamine-1 Receptor Antagonist ZyrTEC Allergy Active citalopram 20 mg oral tablet (20 sources) Serotonin Reuptake Inhibitor Start: 05-24-2024 End: 05-24-2025 take 1 tablet by mouth at bedtime citalopram (CeleXA) 10 MG tablet Indications: Anxiety Take 1 tablet (10 mg) by mouth at bedtime 30 tablet 11 05/24/2024 07/05/2024 Discontinued Start: 06-11-2023 End: 07-05-2025 take 1 tablet by mouth once daily Citalopram 20 mg tablet Discontinued 20 MG PO Daily August 06, 2023 12:00am January 30, 2024 9:06am esomeprazole 40 mg delayed release oral capsule (19 sources) Proton Pump Inhibitor Start: 09-08-2024 Esomeprazole Magnesi um 40 mg capsule,delayed release(DR/EC) Active 40 MG PO Twice daily September 08, 2024 12:00am Take 1 capsule orally 30 minutes before morning meal and 30 minutes before evening meal. Complies with drug therapy Start: 04-15-2024 End: 11-17-2024 Esomeprazole Magnesium 40 mg capsule,delayed release(DR/EC) Discontinued 40 MG PO Daily August 12, 2024 2:14pm November 17, 2024 9:34am Take 1 capsule orally 30 minutes before morning meal. Start: 02-02-2024 End: 03-25-2024 take 1 capsule by mouth once daily Esomeprazole Magnesium 40 mg capsule,delayed release(DR/EC) Discontinued 40 MG PO Daily February 02, 2024 12:00am March 25, 2024 2:17pm Start: 10-29-2023 End: 01-30-2024 take 1 capsule by mouth once daily Esomeprazole Magnesium 40 mg capsule,delayed release(DR/EC) Discontinued 40 MG PO Daily October 29, 2023 12:00am January 30, 2024 9:06am hyoscyamine sulfate 0.125 mg sublingual tablet (2 sources) Start: 12-04-2021 take 1 tablet under the tongue four times daily as needed Hyoscyamine Sulfate 0.125 MG 1 tablet under the tongue and allow to dissolve as needed Sublingual FOUR TIMES DAILY NEEDED for 30 days PRN Nov, Active loratadine 10 mg oral tablet (4 sources) Start: 08-05-2023 take 1 tablet by mouth once daily Loratadine (Claritin) 10 mg tablet Active 10 MG PO Daily August 05, 2023 12:00am Complies with drug therapy take 1 tablet by gia th every twenty-four hours Claritin 10 MG 1 tablet Orally Once a day Active meclizine hydrochloride 25 mg oral tablet (6 sources) Antiemetic Start: 01-30-2024 End: 01-30-2024 take 1 tablet by mouth three times daily as needed for dizziness Meclizine 25 mg tablet Active 25 MG PO Three times daily as needed for dizziness January 30, 2024 9:25am Complies with drug therapy methylPREDNISolone (20 sources) Corticosteroid Start: 03-27-2023 End: [...] 2 05/05/2024 07/05/2024 Discontinued Start: 12-11-2023 End: 09-08-2024 Metoclopramide Hcl 10 mg tab let Discontinued 10 MG PO March 25, 2024 1:00am September 08, 2024 2:16pm nitrofurantoin, macrocrystals 25 mg / nitrofurantoin, monohydrate [...] 7 days. 14 capsule 12/12/2023 12/19/2023 Active Staghm42-[id number] Fum-Folic Ac-Om3 (One Daily ) 28-800-440 mg-mcg-mg combo pack (2 sources) Start: 01-30-2024 Ehihmx51-Xhxx Fum-Folic Ac-Om3 (One Daily ) 28-800-440 mg-mcg-mg combo pack Active PKG PO January 30, 2024 12:00am 75-Iron [id number] (One Daily ) 28-800-440 mg-mcg-mg combo pack (1 source) Start: 01-30-2024 75-Iron Zex-Webjz-Ps2 (One Daily ) 28-800-440 mg-mcg-mg combo pack Active PKG PO January 30, 2024 12:00am Complies with drug therapy Probiotic (3 sources) Probiotic EVERY OTHER MONTH [...] Drug Class(es) Dates Sig (Normalized) Sig (Original) 24 hr buPROPion hydrochloride 150 mg extended release oral tablet (20 sources) Aminoketone Start: 04-12-2024 End: 09-08-2024 take 1 tablet by mouth twice daily Bupropion Hcl 150 mg tablet extended release 24 hr Discontinued MG PO Twice daily April 12, 2024 11:42am September 08, 2024 2:15pm Start: 03-25-2024 End: 04-12-2024 take 1 tablet by mouth every twenty-four hours Bupropion Hcl 150 mg tablet extended release 24 hr Discontinued MG PO March 25, 2024 1:00am April 12, 2024 11:42am Start: 03-25-2024 End: 04-12-2024 take 1 tablet by mouth every twenty-four hours Bupropion Hcl 150 mg tablet extended release 24 hr Discontinued MG PO March 25, 2024 1:00am April 12, 2024 11:42am Start: 03-15-2024 End: 07-05-2024 take 1 tablet [...] tablet by mouth once daily buPROPion XL (Wellbu shanae XL) 150 MG 24 hr tablet Indications: [...] constipation 60 capsule 5 01/07/2024 06/07/2024 Discontinued hydrOXYzine hydrochloride 10 mg oral tablet (6 sources) Antihistamine Start: 06-07-2024 End: 07-05-2024 take 1 tablet by mouth every six hours as needed for anxiety and anxiety hydrOXYzine HCl (Atarax) 10 MG tablet Indications: Anxiety Take 1 tablet (10 mg) by mouth every 6 (six) hours if needed for itching for up to 30 doses 30 tablet 06/07/2024 07/05/2024 Discontinued Lactobacillus Combination No.4 (Probiotic) 3 billion cell Capsule (3 sources) Start: 02-22-2021 End: 01-30-2024 take 3 capsules by mouth once daily Lactobacillus Combination No.4 (Probiotic) 3 billion cell Capsule Discontinued 3000 MMU CELLS PO Daily February 22, 2021 1:00am January 30, 2024 9:09am Misc. Devices (Medela Double Breast Pump) misc [...] desired schedule). 1 each 11/15/2022 Active omeprazole 40 mg delayed release oral capsule (20 sources) Proton Pump Inhibitor Start: 03-25-2024 End: 08-12-2024 take 1 capsule by mouth once daily Omeprazole 40 mg capsule,delayed release(DR/EC) Discontinued 40 MG PO Daily March 25, 2024 1:00am August 12, 2024 2:13pm Start: 02-02-2024 End: 04-27-2024 Omeprazole 20 mg capsule,del ayed release(DR/EC) Discontinued 20 MG PO March 25, 2024 1:00am April 12, 2024 11:41am Start: 01-30-2024 End: 02-02-2024 take 1 capsule by mouth once daily Omeprazole 40 mg capsule,delayed release(DR/EC) Discontinued 40 MG PO Daily January 30, 2024 12:00am February 02, 2024 10:05am Start: 08-28-2023 End: 10-29-2023 take 1 capsule by mouth once daily Omeprazole 40 mg capsule,delayed release(DR/EC) Discontinued 40 MG PO Daily August 28, 2023 12:00am October 29, 2023 1:39pm 30 minutes prior to eating Omeprazole 20 mg capsule,delayed release(DR/EC) (2 sources) Start: 03-25-2024 End: 04-12-2024 Omeprazole 20 mg capsule,delayed release(DR/EC) Discontinued 20 MG PO March 25, 2024 1:00am April 12, 2024 11:41am ondansetron 4 mg disintegrating oral tablet (20 [...] tablet (20 sources) Proton Pump Inhibitor Start: 04-19-2024 End: 08-12-2024 Pantoprazole (Protonix) 40 mg tablet,delayed release (DR/EC) Discontinued 40 MG PO Daily April 19, 2024 1:00am August 12, 2024 2:13pm Take 1 tablet orally 30 minutes before morning meal. Start: 02-28-2021 End: 10-29-2023 take 1 tablet by mouth once daily Pantoprazole 40 mg tablet,delayed release (DR/EC) Discontinued 40 MG PO Daily August 05, 2023 12:00am August 05, 2023 11:18am Vitamin D (3 sources) Start: 08-06-2023 End: 01-30-2024 vitamin d Discontinued PO 2023 12:00am January 30, 2024 9:09am Womens Multi (3 sources) Start: 08-06-2023 End: 01-30-2024 Womens Multi Discontinued PO August 06, 2023 12:00am January 30, 2024 9:09am Problems Active Problems Problem Classification Problem Date Documented Da te Episodic/Chronic Abdominal pain (6 sources) Epigastric pain; Translations: [Lower abdominal pain, unspecified] Episodic Comment on above: Problem List clean-u p per request of Phys. EHR Cmte Adjustment disorders (20 sources) Adjustment disorder with depressed mood; Translations: [Adjustment disorder with depressed mood] Onset: 3 09-13-2022 Chronic Anxiety disorders (20 sources) Anxiety; Translations: [Anxiety disorder, unspecified] Onset: 3 09-13-2022 Chronic Coagulation and hemorrhagic disorders (4 sources) Easy bruising; Translations: [Spontaneous ecchymoses] 08-06-2023 Episodic Conditions associated with dizziness or vertigo (10 sources) Dizziness and giddiness; Translations: [Dizziness] Onset: 3 Episodic Esophageal disorders (20 sources) Gastroesophageal reflux disease; Translations: [Gastro-esophageal reflux disease without esophagitis] Onset: 3 Chronic Comment on above: Problem List clean-u p per request of Phys. EHR Cmte Gastritis and duodenitis (6 sources) Gastritis; Translations: [Gastritis, unspecified, without bleeding] 03-25-2024 Episodic Headache; including migraine (3 sources) Tension-type [...] human papillomavirus (HPV)] Onset: 2 02-09-2024 Episodic Malaise and fatigue (3 sources) Fatigue; Translations: [Other fatigue] 08-06-2023 Episodic Menstrual disorders (20 sources) Irregular menstruation, unspecified; Translations: [Dysmenorrhea, unspecified] Onset: 2 Chronic Nausea and vomiting (1 source) Nausea Episodic Nonspecific chest pain (3 sources) Atypical chest pain; Translations: [Other chest pain] 04-12-2024 Episodic Nutritional deficiencies (3 sources) Vitamin D deficiency; Translations: [Vitamin D deficiency, unspecified] 08-06-2023 Chronic Other acquired deformities (4 sources) Scoliosis, unspecified; [...] duodenum (1 source) Functional dyspepsia Episodic Other disorders of stomach and duodenum (3 sources) Disorder of function of stomach; Translations: [Disease of stomach and duodenum, unspecified] 03-19-2023 Episodic Comment on above: Problem List clean-u p per request of Phys. EHR Cmte Other female genital disorders (4 sources) Other specified noninflammatory disorders of vagina; Translations: [OTH SPEC NONINFLAMMATORY D/O VAGINA] Onset: 3 Episodic Other gastrointestinal disorders (1 source) Abdominal distension (gaseous) Episodic Other gastrointestinal disorders (4 sources) Constipation; Translations: [Constipation, unspecified] 03-25-2024 Episodic Other gastrointestinal disorders (1 source) Constipation, unspecified Episodic Other gastrointestinal disorders (3 sources) Diarrhea; Translations: [Diarrhea, unspecified] 03-19-2023 Episodic Comment on above: Problem List clean-u p per request of Phys. EHR Cmte Other screening for suspected conditions (not mental disorders or infectious disease) (20 sources) Encounter for screening for diabetes mellitus; Translations: [Encounter for screening, unspecified] Onset: 2 Episodic Other skin disorders (2 sources) Loss of hair; Translations: [Nonscarring hair loss, unspecified] 11-17-2024 Episodic Other upper respiratory disease (20 sources) [...] [34 weeks gestation of ] 06-07-2024 Episodic Residual codes; unclassified (3 sources) Gestation period, 26 weeks; Translations: [26 weeks gestation of ] 04-12-2024 Episodic Syncope (1 source) Syncope and collapse; [...] Test Name Value Interpretation Reference Range Facility Basophils Auto (Bld) [#/Vol] on 07-14-2024 Basophils (Bld) [#/Vol] Automated basophil count 0.0-0.1 [facility] Basophils/100 WBC Auto (Bld) on 07-14-2024 Basophils/100 WBC (Bld) Automated basophil % 0.2-2.0 [facility] Eosinophils/100 WBC Auto (Bl d)on 07-14-2024 Eosinophils/100 WBC (Bld) Automated eosinophil % 0.9-7.0 [facility] Erythrocyte distribution wid th Auto (RBC) [Ratio]on 07-14-2024 Erythrocyte distribution width (RBC) [Ratio] Erythrocyte distribution width [Ratio] by Automated count High 11.0-15.0 [facility] Estimated glomerular filtrat ion rate (GFR) non- Americanon 07-14-2024 GFR/1.73 sq M.predicted among non-blacks MDRD (S/P/Bld) [Vol rate/Area] Estimated glomerular filtration rate (GFR) non- >=60 mL/min/1.73m 2 [facility] Fibrin D-dimer [Presence] in Platelet poor plasma by Latex agglutinationon 07-14-2024 Fibrin D-dimer LA Ql (PPP) Fibrin D-dimer [Presence] in Platelet poor plasma by Latex agglutination Critically high <=0.59 [facility] Comment on above: RESULTS CALLED TO DAVI MEDINA RN @BY Linda Chi [phone] in D-Dimer concentration observed withthromboembolic events can be variable due to localization,size, and age of the thrombus. Therefore, a thromboembolicevent cannot be diagnosed with certainty on the basis of thereference range. D-Dimers may also be elevated for a varietyof disorders including advanced age, , coronarydisease, cancer, liver disease, infection, inflammation,hematoma, DIC, trauma, post-surgery, diabetes, thrombolyticor anticoagulant therapy, stress, and generalizedhospitalization. Globulin Calc (S) [Mass/Vol] on 07-14-2024 Globulin (S) [Mass/Vol] Serum globulin measurement by calculation (mass/volume) [facility] Hematocrit Auto (Bld) [Volum e fraction]on 07-14-2024 Hematocrit (Bld) [Volume fraction] Hematocrit [Volume Fraction] of Blood by Automated count Low 36.0-48.0 [facility] Hemoglobin [Mass/volume] in Bloodon 07-14-2024 Hemoglobin (Bld) [Mass/Vol] Hemoglobin [Mass/volume] in Blood Low 12.0-16.0 [facility] Laboratory - Chemistry and C hemistry - challengeon 07-14-2024 Albumin [Mass/Vol] 2.9 g/dL Low 3.4-5.0 [facility] ALP [Catalytic activity/Vol] 69 U/L 46-116 [facility] ALT [Catalytic activity/Vol] 16 U/L 14-59 [facility] AST [Catalytic activity/Vol] 14 U/L Low 15-37 [facility] Bilirubin [Mass/Vol] 0.5 mg/dL 0.2-1.0 [facility] Calcium [Mass/Vol] 8.4 mg/dL Low 8.5-10.1 [facility] Chloride [Moles/Vol] 105 mmol/L 98-107 [facility] CO2 [Moles/Vol] 26.8 mmol/L 21.0-32.0 [facility] Creatinine [Mass/Vol] 0.56 mg/dL 0.55-1.02 [facility] GFR/1.73 sq M.predicted MDRD (S/P/Bld) [Vol rate/Area] mL/min/{1.73_m2} >=60 mL/min/1.73m 2 [facility] Glucose [Mass/Vol] 98 mg/dL 74-106 [facility] Lactate [Moles/Vol] 0.9 mmol/L 0.4-2.0 [facility] Potassium [Moles/Vol] 3.9 mmol/L 3.5-5.1 [facility] Protein [Mass/Vol] 6.2 g/dL Low 6.4-8.2 [facility] Sodium [Moles/Vol] 140 mmol/L 136-145 [facility] Urea nitrogen [Mass/Vol] 9.0 mg/dL 7.0-18.0 [facility] Urea nitrogen/Creatinine [Mass ratio] 16.1 mg/mg [facility] Laboratory - Hematology and Cell countson 07-14-2024 Immature granulocytes/100 WBC (Bld) 0.3 % 0.0-0.5 [facility] Leukocytes [#/volume] correc ailyn for nucleated erythrocytes in Blood by Automated counon 07-14-2024 WBC corrected for nucl RBC Auto (Bld) [#/Vol] Leukocytes [#/volume] corrected for nucleated erythrocytes in Blood by Automated coun 4.0-11.0 [facility] Lymphocytes Auto (Bld) [#/Vo l]on 07-14-2024 Lymphocytes (Bld) [#/Vol] Lymphocytes [#/volume] in Blood by Automated count 1.2-3.8 [facility] Lymphocytes/100 WBC Auto (Bl d)on 07-14-2024 Lymphocytes/100 WBC (Bld) Lymphocytes/100 leukocytes in Blood by Automated count 20.5-60.0 [facility] MCH Auto (RBC) [Entitic mass ]on 07-14-2024 MCH (RBC) [Entitic mass] MCH [Entitic mass] by Automated count Low 26.7-34.0 [facility] MCHC Auto (RBC) [Mass/Vol]on 07-14-2024 MCHC (RBC) [Mass/Vol] MCHC [Mass/volume] by Automated count 29.9-35.2 [facility] MCV Auto (RBC) [Entitic vol] on 07-14-2024 MCV (RBC) [Entitic vol] MCV [Entitic volume] by Automated count Low 81.0-99.0 [facility] Monocytes Auto (Bld) [#/Vol] on 07-14-2024 Monocytes (Bld) [#/Vol] Automated blood monocyte count 0.3-0.8 [facility] Monocytes/100 WBC Auto (Bld) on 07-14-2024 Monocytes/100 WBC (Bld) Automated monocyte % 1.7-12.0 [facility] Neutrophils Auto (Bld) [#/Vo l]on 07-14-2024 Neutrophils (Bld) [#/Vol] Neutrophils [#/volume] in Blood by Automated count 1.4-6.5 [facility] Neutrophils/100 WBC Auto (Bl d)on 07-14-2024 Neutrophils/100 WBC (Bld) Automated neutrophil % 43.0-75.0 [facility] No Panel Informationon 07-14 Eosinophils # (Auto) 0.1 10 3/uL 0.0-0.7 [facility] Immature Granulocyte # (Auto) 0.02 10 3/uL 0.00-0.03 [facility] Troponin I High Sensitivity <4.0 pg/mL Low 4.0-51.3 [facility] Comment on above: CUT-OFF POINTS HAVE BEEN ESTABLISHED BASED ON THE FOURTHUNIVERSAL DEFINITION OF MYOCARDIAL INFARCTION. THE UPPERREFERENCE LIMIT (URL) OF TROPONIN, DEFINED THE 99THPERCENTILE OF cTnI DISTRIBUTION IN A REFERENCE POPULATION,HAS BEEN CONFIRMED THE DECISION THRESHOLD FOR MIDIAGNOSIS.99TH PERCENTILE = 51.4 PG/MLNOTE: HIGH-SENSITIVITY TROPONIN ASSAY IS NOT INTENDED TO BEUSED IN ISOLATION BUT SHOULD BE INTERPRETED IN CONJUNCTIONWITH OTHER DIAGNOSTIC AND CLINICAL INFORMATION. Platelet mean volume Auto (B ld) [Entitic vol]on 07-14-2024 Platelet mean volume (Bld) [Entitic vol] Platelet mean volume [Entitic volume] in Blood by Automated count 9.5-13.5 [facility] Platelets Auto (Bld) [#/Vol] on 07-14-2024 Platelets (Bld) [#/Vol] Platelets [#/volume] in Blood by Automated count 150-450 [facility] RBC Auto (Bld) [#/Vol]on RBC (Bld) [#/Vol] Erythrocytes [#/volu me] in Blood by Automated count 4.20-5.40 [facility] Serum or plasma albumin/glob ulin mass ratioon 07-14-2024 Albumin/Globulin [Mass ratio] Serum or plasma albumin/globulin mass ratio [facility] Serum or plasma anion gap de terminationon 07-14-2024 Anion gap [Moles/Vol] Serum or plasma anion gap determination [facility] Urine Cultureon 07-14-2024 Bacteria identified Cx Nom (U) 25,000 colonies/ml mixed bacterial skin contaminants 2 Days PERFORMED BY: [place] [address] PATHOLOGIST CLINICAL CODER STEVE RICK M.D. Normal [facility] Comment on above: Performed By: #### C UU #### [address] Urine cultureOrdered By: Myriam jenn Marker on 07-14-2024 Bacteria identified Cx Nom (U) Urine culture [facility] Urinalysis macro (dipstick) panel (U)on 07-05-2024 Bilirubin, UA Negative Negative - 4(70) +++ mg/dL [facility] Blood, UA Positive Negative - 50 Daniel/mcL [facility] Clarity, UA Clear [facility] Color, UA Yellow [facility] Glucose, UA Negative Negative - 1999(110) ++++ mg/dL [facility] Interpretation and review of laboratory results Abnormal [facility] Ketones, UA Negative Negative - 160(16) ++++ mg/dL [facility] Leukocytes, UA Negative Negative - 500+++ Gavin/mcL [facility] Nitrite, UA Negative Negative - Positive [facility] pH, UA 7 5 - 9 [facility] Protein, UA Negative Negative - 1999(20) ++++ mg/dL [facility] Spec Grav, UA 1.015 1 - 1.03 [facility] Urobilinogen, UA 0.2 0.2 - 12 mg/dL Count includes the [facility] Basophils Auto (Bld) [#/Vol] on 07-01-2024 Basophils (Bld) [#/Vol] Automated basophil count 0.0-0.1 [facility] Basophils/100 WBC Auto (Bld) on 07-01-2024 Basophils/100 WBC (Bld) Automated basophil % 0.2-2.0 [facility] Eosinophils/100 WBC Auto (Bl d)on 07-01-2024 Eosinophils/100 WBC (Bld) Automated eosinophil % Low 0.9-7.0 [facility] Erythrocyte distribution wid th Auto (RBC) [Ratio]on 07-01-2024 Erythrocyte distribution width (RBC) [Ratio] Erythrocyte distribution width [Ratio] by Automated count 11.0-15.0 [facility] Hematocrit Auto (Bld) [Volum e fraction]on 07-01-2024 Hematocrit (Bld) [Volume fraction] Hematocrit [Volume Fraction] of Blood by Automated count Low 36.0-48.0 [facility] Hemoglobin [Mass/volume] in Bloodon 07-01-2024 Hemoglobin (Bld) [Mass/Vol] Hemoglobin [Mass/volume] in Blood Low 12.0-16.0 [facility] Laboratory - Hematology and Cell countson 07-01-2024 Immature granulocytes/100 WBC (Bld) 0.4 % 0.0-0.5 [facility] Leukocytes [#/volume] correc ailyn for nucleated erythrocytes in Blood by Automated counon 07-01-2024 WBC corrected for nucl RBC Auto (Bld) [#/Vol] Leukocytes [#/volume] corrected for nucleated erythrocytes in Blood by Automated coun 4.0-11.0 [facility] Lymphocytes Auto (Bld) [#/Vo l]on 07-01-2024 Lymphocytes (Bld) [#/Vol] Lymphocytes [#/volume] in Blood by Automated count 1.2-3.8 [facility] Lymphocytes/100 WBC Auto (Bl d)on 07-01-2024 Lymphocytes/100 WBC (Bld) Lymphocytes/100 leukocytes in Blood by Automated count 20.5-60.0 [facility] MCH Auto (RBC) [Entitic mass ]on 07-01-2024 MCH (RBC) [Entitic mass] MCH [Entitic mass] by Automated count Low 26.7-34.0 [facility] MCHC Auto (RBC) [Mass/Vol]on 07-01-2024 MCHC (RBC) [Mass/Vol] MCHC [Mass/volume] by Automated count 29.9-35.2 [facility] MCV Auto (RBC) [Entitic vol] on 07-01-2024 MCV (RBC) [Entitic vol] MCV [Entitic volume] by Automated count Low 81.0-99.0 [facility] Monocytes Auto (Bld) [#/Vol] on 07-01-2024 Monocytes (Bld) [#/Vol] Automated blood monocyte count 0.3-0.8 [facility] Monocytes/100 WBC Auto (Bld) on 07-01-2024 Monocytes/100 WBC (Bld) Automated monocyte % 1.7-12.0 [facility] Neutrophils Auto (Bld) [#/Vo l]on 07-01-2024 Neutrophils (Bld) [#/Vol] Neutrophils [#/volume] in Blood by Automated count 1.4-6.5 [facility] Neutrophils/100 WBC Auto (Bl d)on 07-01-2024 Neutrophils/100 WBC (Bld) Automated neutrophil % 43.0-75.0 [facility] No Panel Informationon 07-01 Eosinophils # (Auto) 0.1 10 3/uL 0.0-0.7 [facility] Immature Granulocyte # (Auto) 0.04 10 3/uL High 0.00-0.03 [facility] Platelet mean volume Auto (B ld) [Entitic vol]on 07-01-2024 Platelet mean volume (Bld) [Entitic vol] Platelet mean volume [Entitic volume] in Blood by Automated count 9.5-13.5 [facility] Platelets Auto (Bld) [#/Vol] on 07-01-2024 Platelets (Bld) [#/Vol] Platelets [#/volume] in Blood by Automated count 150-450 [facility] RBC Auto (Bld) [#/Vol]on RBC (Bld) [#/Vol] Erythrocytes [#/volu me] in Blood by Automated count Low 4.20-5.40 [facility] Basophils Auto (Bld) [#/Vol] on 06-30-2024 Basophils (Bld) [#/Vol] Automated basophil count 0.0-0.1 [facility] Basophils/100 WBC Auto (Bld) on 06-30-2024 Basophils/100 WBC (Bld) Automated basophil % 0.2-2.0 [facility] Eosinophils/100 WBC Auto (Bl d)on 06-30-2024 Eosinophils/100 WBC (Bld) Automated eosinophil % Low 0.9-7.0 [facility] Erythrocyte distribution wid th Auto (RBC) [Ratio]on 06-30-2024 Erythrocyte distribution width (RBC) [Ratio] Erythrocyte distribution width [Ratio] by Automated count 11.0-15.0 [facility] Hematocrit Auto (Bld) [Volum e fraction]on 06-30-2024 Hematocrit (Bld) [Volume fraction] Hematocrit [Volume Fraction] of Blood by Automated count Low 36.0-48.0 [facility] Hemoglobin [Mass/volume] in Bloodon 06-30-2024 Hemoglobin (Bld) [Mass/Vol] Hemoglobin [Mass/volume] in Blood Low 12.0-16.0 [facility] Laboratory - Hematology and Cell countson 06-30-2024 Immature granulocytes/100 WBC (Bld) 0.5 % 0.0-0.5 [facility] Leukocytes [#/volume] correc ailyn for nucleated erythrocytes in Blood by Automated counon 06-30-2024 WBC corrected for nucl RBC Auto (Bld) [#/Vol] Leukocytes [#/volume] corrected for nucleated erythrocytes in Blood by Automated coun 4.0-11.0 [facility] Lymphocytes Auto (Bld) [#/Vo l]on 06-30-2024 Lymphocytes (Bld) [#/Vol] Lymphocytes [#/volume] in Blood by Automated count 1.2-3.8 [facility] Lymphocytes/100 WBC Auto (Bl d)on 06-30-2024 Lymphocytes/100 WBC (Bld) Lymphocytes/100 leukocytes in Blood by Automated count 20.5-60.0 [facility] MCH Auto (RBC) [Entitic mass ]on 06-30-2024 MCH (RBC) [Entitic mass] MCH [Entitic mass] by Automated count Low 26.7-34.0 [facility] MCHC Auto (RBC) [Mass/Vol]on 06-30-2024 MCHC (RBC) [Mass/Vol] MCHC [Mass/volume] by Automated count 29.9-35.2 [facility] MCV Auto (RBC) [Entitic vol] on 06-30-2024 MCV (RBC) [Entitic vol] MCV [Entitic volume] by Automated count Low 81.0-99.0 [facility] Monocytes Auto (Bld) [#/Vol] on 06-30-2024 Monocytes (Bld) [#/Vol] Automated blood monocyte count High 0.3-0.8 [facility] Monocytes/100 WBC Auto (Bld) on 06-30-2024 Monocytes/100 WBC (Bld) Automated monocyte % 1.7-12.0 [facility] Neutrophils Auto (Bld) [#/Vo l]on 06-30-2024 Neutrophils (Bld) [#/Vol] Neutrophils [#/volume] in Blood by Automated count High 1.4-6.5 [facility] Neutrophils/100 WBC Auto (Bl d)on 06-30-2024 Neutrophils/100 WBC (Bld) Automated neutrophil % 43.0-75.0 [facility] No Panel Informationon 06-30 Eosinophils # (Auto) 0.0 10 3/uL 0.0-0.7 [facility] Immature Granulocyte # (Auto) 0.05 10 3/uL High 0.00-0.03 [facility] Platelet mean volume Auto (B ld) [Entitic vol]on 06-30-2024 Platelet mean volume (Bld) [Entitic vol] Platelet mean volume [Entitic volume] in Blood by Automated count 9.5-13.5 [facility] Platelets Auto (Bld) [#/Vol] on 06-30-2024 Platelets (Bld) [#/Vol] Platelets [#/volume] in Blood by Automated count 150-450 [facility] RBC Auto (Bld) [#/Vol]on RBC (Bld) [#/Vol] Erythrocytes [#/volu me] in Blood by Automated count Low 4.20-5.40 [facility] Basophils Auto (Bld) [#/Vol] on 06-29-2024 Basophils (Bld) [#/Vol] Automated basophil count 0.0-0.1 [facility] Basophils/100 WBC Auto (Bld) on 06-29-2024 Basophils/100 WBC (Bld) Automated basophil % Low 0.2-2.0 [facility] Buprenorphine [Presence] in Urineon 06-29-2024 Buprenorphine Ql (U) Buprenorphine [Presence] in Urine NEGATIVE [facility] Comment on above: DRUG CLASS TEST SYST EM CUT-OFF CONCENTRATIONS ARE ASFOLLOWS:AMP (Amphetamine): 500 ng/mLBAR (Barbiturates): 200 ng/mLBZO (Benzodiazepines): 150 ng/mLBUP (Buprenorphine): 10 ng/mLCOC (Cocaine): 150 ng/mLmAMP (Methamphetamine): 500 ng/mLMTD (Methadone): 200 ng/mLOPI (Opiates): 100 ng/mLOXY (Oxycodone): 100 ng/mLPCP (Phencyclidine): 25 ng/mLTHC (Cannabinoids): 50 ng/mLTCA (Trycyclic Antidepressants): 300 ng/mL Eosinophils/100 WBC Auto (Bl d)on 06-29-2024 Eosinophils/100 WBC (Bld) Automated eosinophil % Low 0.9-7.0 [facility] Erythrocyte distribution wid th Auto (RBC) [Ratio]on 06-29-2024 Erythrocyte distribution width (RBC) [Ratio] Erythrocyte distribution width [Ratio] by Automated count 11.0-15.0 [facility] Hematocrit Auto (Bld) [Volum e fraction]on 06-29-2024 Hematocrit (Bld) [Volume fraction] Hematocrit [Volume Fraction] of Blood by Automated count Low 36.0-48.0 [facility] Hemoglobin [Mass/volume] in Bloodon 06-29-2024 Hemoglobin (Bld) [Mass/Vol] Hemoglobin [Mass/volume] in Blood Low 12.0-16.0 [facility] Laboratory - Drug toxicology on 06-29-2024 Amphetamines Ql (U) Negative NEGATIVE [facility] Benzodiazepines Ql (U) Negative NEGATIVE [facility] Cocaine Ql (U) Negative NEGATIVE [facility] Opiates Ql (U) Negative NEGATIVE [facility] Phencyclidine Ql (U) Negative NEGATIVE [facility] Laboratory - Hematology and Cell countson 06-29-2024 Immature granulocytes/100 WBC (Bld) 0.3 % 0.0-0.5 [facility] Laboratory - Urinalysison Mucus Ql (Urine sed) NONE SEEN NONE SEEN [facility] Leukocytes [#/volume] correc ailyn for nucleated erythrocytes in Blood by Automated counon 06-29-2024 WBC corrected for nucl RBC Auto (Bld) [#/Vol] Leukocytes [#/volume] corrected for nucleated erythrocytes in Blood by Automated coun 4.0-11.0 [facility] Lymphocytes Auto (Bld) [#/Vo l]on 06-29-2024 Lymphocytes (Bld) [#/Vol] Lymphocytes [#/volume] in Blood by Automated count Low 1.2-3.8 [facility] Lymphocytes/100 WBC Auto (Bl d)on 06-29-2024 Lymphocytes/100 WBC (Bld) Lymphocytes/100 leukocytes in Blood by Automated count Low 20.5-60.0 [facility] MCH Auto (RBC) [Entitic mass ]on 06-29-2024 MCH (RBC) [Entitic mass] MCH [Entitic mass] by Automated count Low 26.7-34.0 [facility] MCHC Auto (RBC) [Mass/Vol]on 06-29-2024 MCHC (RBC) [Mass/Vol] MCHC [Mass/volume] by Automated count 29.9-35.2 [facility] MCV Auto (RBC) [Entitic vol] on 06-29-2024 MCV (RBC) [Entitic vol] MCV [Entitic volume] by Automated count Low 81.0-99.0 [facility] Methadone [Presence] in Urin e by Screen methodon 06-29-2024 Methadone Screen Ql (U) Methadone [Presence] in Urine by Screen method NEGATIVE [facility] Monocytes Auto (Bld) [#/Vol] on 06-29-2024 Monocytes (Bld) [#/Vol] Automated blood monocyte count 0.3-0.8 [facility] Monocytes/100 WBC Auto (Bld) on 06-29-2024 Monocytes/100 WBC (Bld) Automated monocyte % 1.7-12.0 [facility] Neutrophils Auto (Bld) [#/Vo l]on 06-29-2024 Neutrophils (Bld) [#/Vol] Neutrophils [#/volume] in Blood by Automated count High 1.4-6.5 [facility] Neutrophils/100 WBC Auto (Bl d)on 06-29-2024 Neutrophils/100 WBC (Bld) Automated neutrophil % High 43.0-75.0 [facility] No Panel Informationon 06-29 Eosinophils # (Auto) 0.0 10 3/uL 0.0-0.7 [facility] Immature Granulocyte # (Auto) 0.03 10 3/uL 0.00-0.03 [facility] Urine Bacteria NONE SEEN #/HPF NONE SEEN [facility] Barbiturates Screen Negative NEGATIVE [facility] Urine Culture Reflexed NO [facility] Urine Marijuana (THC) Screen Negative NEGATIVE [facility] Urine Methamphetamines Screen Negative NEGATIVE [facility] Urine Other Casts NONE SEEN #/LPF NONE SEEN [facility] Urine Other Crystals None Seen #/HPF None Seen [facility] Urine RBC 0-2 #/HPF 0-2 [facility] Urine Squamous Epithelial Cells RARE #/LPF NONE/RARE [facility] Urine Transitional Epithelial Cells RARE #/LPF Abnormal NONE SEEN [facility] Urine WBC 0-2 #/HPF Abnormal NONE SEEN [facility] Platelet mean volume Auto (B ld) [Entitic vol]on 06-29-2024 Platelet mean volume (Bld) [Entitic vol] Platelet mean volume [Entitic volume] in Blood by Automated count 9.5-13.5 [facility] Platelets Auto (Bld) [#/Vol] on 06-29-2024 Platelets (Bld) [#/Vol] Platelets [#/volume] in Blood by Automated count 150-450 [facility] RBC Auto (Bld) [#/Vol]on RBC (Bld) [#/Vol] Erythrocytes [#/volu me] in Blood by Automated count Low 4.20-5.40 [facility] UA (CLEAN/CATCH) SPEECH AND LANGUAGE CLINICIAN/AMBERLY RO IF IND.on 06-29-2024 BILIRUBIN URINE Negative NEGATIVE [facility] BLOOD URINE Negative NEGATIVE [facility] Clarity (U) CLEAR CLEAR [facility] Color (U) LT. YELLOW YELLOW [facility] GLUCOSE URINE UA Negative NEGATIVE mg/dL [facility] Interpretation and review of laboratory results Abnormal [facility] Ketones Ql (U) 40 mg/dL Abnormal NEGATIVE [facility] Leukocyte esterase Test strip Ql (U) Negative NEGATIVE [facility] NITRITE URINE Negative NEGATIVE [facility] pH (U) 6.0 [pH] 5.0 - 9.0 [facility] PROTEIN URINE Negative NEG/TRACE mg/dL [facility] SPECIFIC GRAVITY URINE 1.015 1.005 - 1.025 [facility] URINE MICROSCOPIC INDICATED YES [facility] UROBILINOGEN URINE 0.2 EU/dL 0.2 - 1.0 EU/dL [facility] Urine tricyclic antidepressa nt measurementon 06-29-2024 Tricyclic antidepressants (U) [Mass/Vol] Urine tricyclic antidepressant measurement NEGATIVE [facility] oxyCODONE+oxyMORphone [Prese nce] in Urine by Screen methodon 06-29-2024 oxyCODONE+oxyMORphon e Screen Ql (U) oxyCODONE+oxyMORphone [Presence] in Urine by Screen method NEGATIVE [facility] ALL MISCELLANEOUS TESTon MISCELLANEOUS TEST COMMENT . [facility] Comment on above: Test Ordered: [id number] Strep Gp B Culture+Rflx Strep Gp B Culture+Rflx Positive [A ] CB Reference Range: Negative Centers for Disease Control and Prevention (CDC) and [place] [employer] (ACOG) guidelines [...] at high risk for anaphylaxis. Performed at: [facility] [id number] [employer] Operations Dispatch Clerk: Jose Alejandro Matthews PhD, Phone: [phone] GROUP B STREP [id number] CULTURE, GROUP B STREP WITH SUSCEPTIBILITY [facility] No Panel Informationon 06-21 Miscellaneous Test COMMENT . [facility] Comment on above: Test Ordered: [id number] Strep Gp B Culture+RflxStrep Gp B Culture+Rflx Positive [A ] CB Reference Range: NegativeCenters for Disease Control and Prevention (CDC) andAmerican Congress of Obstetricians and Gynecologists (ACOG)guidelines for prevention of group Bstreptococcal (GBS) disease specify co-collection of avaginal and rectal swab specimen to maximize sensitivity ofGBS detection. Per the CDC and ACOG, swabbing both thelower vagina and rectum substantially increases the yieldof detection compared with sampling the vagina alone.Penicillin G, ampicillin, or cefazolin are indicated forintrapartum prophylaxis of GBS colonization.Reflex susceptibility testing should be performed prior touse of clindamycin only on GBS isolates from penicillin-allergic women who are considered a high risk foranaphylaxis. Treatment with vancomycin without additionaltesting is warranted if resistance to clindamycin is noted.Organism Identification Comment Reference Range: .Beta hemolytic Streptococcus, group BClindamycin Resistant [A ] CB Reference Range: .Testing for inducible clindamycin resistance was performedusing erythromycin and clindamycin in the D-zone test. Pert Centers for Disease Control and Prevention (CDC),erythromycin is no longer an acceptable alternative forintrapartum group B Streptococcus (GBS) prophylaxis forpenicillin-allergic women at high risk for anaphylaxis.Performed at: [facility] [id number] Director: Jose Alejandro Matthews PhD, Phone: [phone] Urinalysis macro (dipstick) panel (U)on 06-07-2024 Bilirubin, UA Negative Negative - 4(70) +++ mg/dL [facility] Blood, UA Negative Negative - 50 Daniel/mcL [facility] Clarity, UA Clear [facility] Color, UA Colorless [facility] Glucose, UA Positive Negative - 2000(110) ++++ mg/dL [facility] Comment on above: 100 Interpretation and review of laboratory results Abnormal [facility] Ketones, UA Negative Negative - 160(16) ++++ mg/dL [facility] Leukocytes, UA Negative Negative - 500+++ Gavin/mcL [facility] Nitrite, UA Negative Negative - Positive [facility] pH, UA 6 5 - 9 [facility] Protein, UA Negative Negative - 2000(20) ++++ mg/dL [facility] Spec Grav, UA 1.005 1 - 1.03 [facility] Urobilinogen, UA 0.2 0.2 - 12 mg/dL Count includes the [facility] US OB FOLLOW UP TRANSABDOMIN AL [...] Negative Negative - 4(70) +++ mg/dL [facility] Blood, UA Positive Negative - 50 Daniel/mcL [facility] Comment on above: TRACE-INTACT Clarity, UA Clear [facility] Color, UA Yellow [facility] Glucose, UA Negative Negative - 1999(110) ++++ mg/dL [facility] Interpretation and review of laboratory results Abnormal [facility] Ketones, UA Negative Negative - 160(16) ++++ mg/dL [facility] Leukocytes, UA Negative Negative - 500+++ Gavin/mcL [facility] Nitrite, UA Negative Negative - Positive [facility] pH, UA 6 5 - 9 [facility] Protein, UA Negative Negative - 2000(20) ++++ mg/dL [facility] Spec Grav, UA 1.005 1 - 1.03 [facility] Urobilinogen, UA 0.2 0.2 - 12 mg/dL Count includes the [facility] Urinalysis macro (dipstick) panel (U)on 05-11-2024 Bilirubin, UA Negative Negative - 4(70) +++ mg/dL [facility] Blood, UA Negative Negative - 50 Daniel/mcL [facility] Clarity, UA Clear [facility] Color, UA Yellow [facility] Glucose, UA Negative Negative - 1999(110) ++++ mg/dL [facility] Interpretation and review of laboratory results Abnormal [facility] Ketones, UA Negative Negative - 160(16) ++++ mg/dL [facility] Leukocytes, UA Trace Negative - 500+++ Gavin/mcL [facility] Nitrite, UA Negative Negative - Positive [facility] pH, UA 6.5 5 - 9 [facility] Protein, UA Negative Negative - 1999(20) ++++ mg/dL [facility] Spec Grav, UA 1.02 1 - 1.03 [facility] Urobilinogen, UA 0.2 0.2 - 12 mg/dL Count includes the [facility] Urinalysis macro (dipstick) panel (U)on 04-27-2024 Bilirubin, UA Negative Negative - 4(70) +++ mg/dL [facility] Blood, UA Negative Negative - 50 Daniel/mcL [facility] Clarity, UA Clear [facility] Color, UA Yellow [facility] Glucose, UA Negative Negative - 1999(110) ++++ mg/dL [facility] Interpretation and review of laboratory results Abnormal [facility] Ketones, UA Negative Negative - 160(16) ++++ mg/dL [facility] Leukocytes, UA Trace Negative - 500+++ Gavin/mcL [facility] Nitrite, UA Negative Negative - Positive [facility] pH, UA 7 5 - 9 [facility] Protein, UA Negative Negative - 1999(20) ++++ mg/dL [facility] Spec Grav, UA 1.01 1 - 1.03 [facility] Urobilinogen, UA 0.2 0.2 - 12 mg/dL Count includes the [facility] ALL CBC WITH AUTO DIFFon BASOPHILS ABSOLUTE AUTO 0 [facility] Basophils/100 WBC (Bld) 0.5 % 0.2 - 2.0 % [facility] Eosinophils/100 WBC (Bld) 0.5 % Low 0.9 - 7.0 % [facility] Erythrocyte distribution width (RBC) [Ratio] 12.9 % 11.0 - 15.0 % [facility] Hematocrit (Bld) [Volume fraction] 33.7 % Low 36.0 - 48.0 % [facility] Hemoglobin (Bld) [Mass/Vol] 10.8 g/dL Low 12.0 - 16.0 g/dL [facility] IMMATURE GRANULOCYTES ABS AUTO 0.04 High [facility] Immature granulocytes/100 WBC (Bld) 0.6 % High 0.0 - 0.5 % [facility] Interpretation and review of laboratory results Abnormal [facility] LYMPHOCYTES ABSOLUTE AUTO 1.3 [facility] Lymphocytes/100 WBC (Bld) 20.2 % Low 20.5 - 60.0 % [facility] MCH (RBC) [Entitic mass] 26.9 pg 26.7 - 34.0 pg [facility] MCHC (RBC) [Mass/Vol] 32 g/dL 29.9 - 35.2 g/dL [facility] MCV (RBC) [Entitic vol] 83.8 fL 81.0 - 99.0 fL [facility] MONOCYTES ABSOLUTE AUTO 0.5 [facility] Monocytes/100 WBC (Bld) 8.6 % 1.7 - 12.0 % [facility] NEUTROPHILS ABSOLUTE AUTO 4.4 [facility] Neutrophils/100 WBC (Bld) 69.6 % 43.0 - 75.0 % [facility] Platelet mean volume (Bld) [Entitic vol] 10.3 fL 9.5 - 13.5 fL [facility]H EO # 0 [facility] PLT [address] [facility] RBC 4.[address] [facility] WBC 6.3 [facility] Urinalysis macro (dipstick) panel (U)on 04-05-2024 Bilirubin, UA Negative Negative - 4(70) +++ mg/dL [facility] Blood, UA Negative Negative - 50 Daniel/mcL [facility] Clarity, UA Clear [facility] Color, UA Yellow [facility] Glucose, UA Negative Negative - 1999(110) ++++ mg/dL [facility] Interpretation and review of laboratory results Normal [facility] Ketones, UA Negative Negative - 160(16) ++++ mg/dL [facility] Leukocytes, UA Negative Negative - 500+++ Gavin/mcL [facility] Nitrite, UA Negative Negative - Positive [facility] pH, UA 5.5 5 - 9 [facility] Protein, UA Negative Negative - 1999(20) ++++ mg/dL [facility] Spec Grav, UA 1.025 1 - 1.03 [facility] Urobilinogen, UA 0.2 0.2 - 12 mg/dL Count includes the [facility] AFP, SERUM, OPEN SPINA BIFID Aon 02-20-2024 AFP MOM 0.72 . [facility] AFP VALUE 27.2 ng/mL . [facility] COMMENT: Comment . [facility] Comment on above: Tiffanie Petersen , Ph.D., [facility] Director References: Available Upon Request. Multiples Of Median Cutoffs For AFP Elevations Patrick 2.5 Black 2.8 IDD 2.0 Twins 4.5 Abbreviation Definitions IDD - Insulin Dep Diabetes OSBR - Open Spina Bifida Risk For further inquiries contact [employer] [facility] at [phone]. This test was developed and its performance characteristics determined by [employer]. It has not been cleared or approved by the Food and Drug Administration. Performed at: [facility] [address] [place] [id number] Flight Operations Dispatch Clerk: Tor Real [facility], Phone: [phone] GEST. AGE ON COLLECTION DATE 18.3 . weeks [facility] GESTAT. AGE BASED ON LMP . [facility] Comment on above: Recalculations are n ot recommended when gestational dating by LMP and ultrasound are within 10 days. INSULIN DEP DIABETES No . [facility] INTERPRETATION Comment . [facility] Comment on above: Interpretation: Scre en Negative [...] Customer Services to discuss available options. The [place] [employer] recommends amniocentesis be offered to women age 35 and older. [age] [facility] MULTIPLE GESTATION No . [facility] OSBR RISK [place] [id number] . [facility] RACE . [facility] RESULTS Report . [facility] TEST RESULTS: Negative . [facility] WEIGHT 198 . lbs [facility] N N LMP [id number] [phone] N 1 Y 198 N N N N N White/ [facility] RECURRENT VAGINITIS (HTRX)on 02-11-2024 ATOPOBIUM VAGINAE 0 [facility] ATOPOBIUM VAGINAE Not detected [facility] BVAB 2,3 (BACTERIAL VAGINOSIS ASSOCIATED BACTERIA 2, 3); MOBILUNCUS SPP 0 [facility] BVAB 2,3 (BACTERIAL VAGINOSIS ASSOCIATED BACTERIA 2, 3); MOBILUNCUS SPP Not detected [facility] SAIRA ALBICANS, PARAPSILOSIS, TROPICALIS 0 [facility] SAIRA ALBICANS, PARAPSILOSIS, TROPICALIS Not detected [facility] SAIRA GLABRATA 0 [facility] SAIRA GLABRATA Not detected [facility] SAIRA KRUSEI 0 [facility] SAIRA KRUSEI Not detected [facility] CHLAMYDIA TRACHOMATIS 0 [facility] CHLAMYDIA TRACHOMATIS Not detected [facility] GARDNERELLA VAGINALIS 0 [facility] GARDNERELLA VAGINALIS Not detected [facility] MEGASPHAERA (TYPES 1, 2) 0 [facility] MEGASPHAERA (TYPES 1, 2) Not detected [facility] MYCOPLASMA GENITALIUM 0 [facility] MYCOPLASMA GENITALIUM Not detected [facility] NEISSERIA GONORRHOEAE 0 [facility] NEISSERIA GONORRHOEAE Not detected [facility] TRICHOMONAS VAGINALIS 0 [facility] TRICHOMONAS VAGINALIS Not detected Count includes the [facility] Urinalysis macro (dipstick) panel (U)on 02-09-2024 Bilirubin, UA Negative Negative - 4(70) +++ mg/dL [facility] Blood, UA Negative Negative - 50 Daniel/mcL [facility] Clarity, UA Clear [facility] Color, UA Yellow [facility] Glucose, UA Negative Negative - 1999(110) ++++ mg/dL [facility] Interpretation and review of laboratory results Normal [facility] Ketones, UA Negative Negative - 160(16) ++++ mg/dL [facility] Leukocytes, UA Negative Negative - 500+++ Gavin/mcL [facility] Nitrite, UA Negative Negative - Positive [facility] pH, UA 5.5 5 - 9 [facility] Protein, UA Negative Negative - 1999(20) ++++ mg/dL [facility] Spec Grav, UA 1.02 1 - 1.03 [facility] Urobilinogen, UA 0.2 0.2 - 12 mg/dL Count includes the [facility] ALL CBC WITH AUTO DIFFon BASOPHILS ABSOLUTE AUTO 0.0 [facility] Basophils/100 WBC (Bld) 0.1 % Low 0.2 - 2.0 % [facility] Eosinophils/100 WBC (Bld) 1.0 % 0.9 - 7.0 % [facility] Erythrocyte distribution width (RBC) [Ratio] 13.2 % 11.0 - 15.0 % [facility] Hematocrit (Bld) [Volume fraction] 36.4 % 36.0 - 48.0 % [facility] Hemoglobin (Bld) [Mass/Vol] 11.9 g/dL Low 12.0 - 16.0 g/dL [facility] IMMATURE GRANULOCYTES ABS AUTO 0.01 [facility] Immature granulocytes/100 WBC (Bld) 0.1 % 0.0 - 0.5 % [facility] Interpretation and review of laboratory results Abnormal [facility] LYMPHOCYTES ABSOLUTE AUTO 1.5 [facility] Lymphocytes/100 WBC (Bld) 22.8 % 20.5 - 60.0 % [facility] MCH (RBC) [Entitic mass] 28.1 pg 26.7 - 34.0 pg [facility] MCHC (RBC) [Mass/Vol] 32.7 g/dL 29.9 - 35.2 g/dL [facility] MCV (RBC) [Entitic vol] 86.1 fL 81.0 - 99.0 fL [facility] MONOCYTES ABSOLUTE AUTO 0.4 [facility] Monocytes/100 WBC (Bld) 6.0 % 1.7 - 12.0 % [facility] NEUTROPHILS ABSOLUTE AUTO 4.7 [facility] Neutrophils/100 WBC (Bld) 70.0 % 43.0 - 75.0 % [facility] Platelet mean volume (Bld) [Entitic vol] 10.7 fL 9.5 - 13.5 [facility]L [facility]1 [facility] PLT 213 [facility] RBC 4.23 [facility] WBC 6.7 [facility] Urinalysis macro (dipstick) panel (U)on 01-07-2024 Bilirubin, UA Negative Negative - 4(70) +++ mg/dL [facility] Blood, UA Negative Negative - 50 Daniel/mcL [facility] Clarity, UA Clear [facility] Color, UA Yellow [facility] Glucose, UA Negative Negative - 2000(110) ++++ mg/dL [facility] Interpretation and review of laboratory results Normal [facility] Ketones, UA Negative Negative - 160(16) ++++ mg/dL [facility] Leukocytes, UA Negative Negative - 500+++ Gavin/mcL [facility] Nitrite, UA Negative Negative - Positive [facility] pH, UA 6.5 5 - 9 [facility] Protein, UA Negative Negative - 2000(20) ++++ mg/dL [facility] Spec Grav, UA 1.020 1 - 1.03 [facility] Urobilinogen, UA 1.0 0.2 - 12 mg/dL Count includes the [facility] ALL CBC WITH AUTO DIFFon BASOPHILS ABSOLUTE AUTO 0.0 [facility] Basophils/100 WBC (Bld) 0.3 % 0.2 - 2.0 % [facility] Eosinophils/100 WBC (Bld) 0.9 % 0.9 - 7.0 % [facility] Erythrocyte distribution width (RBC) [Ratio] 13.0 % 11.0 - 15.0 % [facility] Hematocrit (Bld) [Volume fraction] 39.1 % 36.0 - 48.0 % [facility] Hemoglobin (Bld) [Mass/Vol] 12.8 g/dL 12.0 - 16.0 g/dL [facility] IMMATURE GRANULOCYTES ABS AUTO 0.02 [facility] Immature granulocytes/100 WBC (Bld) 0.3 % 0.0 - 0.5 % [facility] Interpretation and review of laboratory results Abnormal [facility] LYMPHOCYTES ABSOLUTE AUTO 1.6 [facility] Lymphocytes/100 WBC (Bld) 20.4 % Low 20.5 - 60.0 % [facility] MCH (RBC) [Entitic mass] 27.8 pg 26.7 - 34.0 pg [facility] MCHC (RBC) [Mass/Vol] 32.7 g/dL 29.9 - 35.2 g/dL [facility] MCV (RBC) [Entitic vol] 84.8 fL 81.0 - 99.0 fL [facility] MONOCYTES ABSOLUTE AUTO 0.6 [facility] Monocytes/100 WBC (Bld) 7.1 % 1.7 - 12.0 % [facility] NEUTROPHILS ABSOLUTE AUTO 5.5 [facility] Neutrophils/100 WBC (Bld) 71.0 % 43.0 - 75.0 % [facility] Platelet mean volume (Bld) [Entitic vol] 10.2 fL 9.5 - 13.[address] [facility] EO # 0.1 [facility] PLT 254 [facility] RBC 4.61 [facility] WBC 7.7 [facility] Urinalysis macro (dipstick) panel (U)on 12-17-2023 Bilirubin, UA Negative Negative - 4(70) +++ mg/dL [facility] Blood, UA Negative Negative - 50 Daniel/mcL [facility] Clarity, UA Clear [facility] Color, UA Yellow [facility] Glucose, UA Negative Negative - 1999(110) ++++ mg/dL [facility] Interpretation and review of laboratory results Abnormal [facility] Ketones, UA Positive Negative - 160(16) ++++ mg/dL [facility] Comment on above: 15 Leukocytes, UA Negative Negative - 500+++ Gavin/mcL [facility] Nitrite, UA Negative Negative - Positive [facility] pH, UA 6.5 5 - 9 [facility] Protein, UA Negative Negative - 1999(20) ++++ mg/dL [facility] Spec Grav, UA 1.030 1 - 1.03 [facility] Urobilinogen, UA 1.0 0.2 - 12 mg/dL Count includes the [facility] HCG ( test) Ql (U)o n 12-12-2023 Interpretation and review of laboratory results Abnormal [facility] Preg Test, Ur Positive Count includes the [facility] Urinalysis macro (dipstick) panel (U)on 12-12-2023 Bilirubin, UA Positive Negative - 4(70) +++ mg/dL [facility] Comment on above: small Blood, UA Negative Negative - 50 Daniel/mcL [facility] Clarity, UA Clear [facility] Color, UA Yellow [facility] Glucose, UA Negative Negative - 2000(110) ++++ mg/dL [facility] Interpretation and review of laboratory results Abnormal [facility] Ketones, UA Positive Negative - 160(16) ++++ mg/dL [facility] Comment on above: trace Leukocytes, UA Negative Negative - 500+++ Gavin/mcL [facility] Nitrite, UA Negative Negative - Positive [facility] pH, UA 6.0 5 - 9 [facility] Protein, UA Positive Negative - 1999(20) ++++ mg/dL [facility] Comment on above: 30 Spec Grav, UA 1.030 1 - 1.03 [facility] Urobilinogen, UA 0.2 0.2 - 12 mg/dL Count includes the [facility] Cytology Cervical or vaginal smear or scraping studyon 03-05-2023 [facility] CBC AUTO DIFFon 07-25-2022 BASO # 0.0 103/ul Normal 0.0-0.1 [facility] Comment on above: Performed By: #### C BC #### [facility] [address] [place] [address] Dr. Jerry Samuel Basophils/100 WBC (Bld) 0.3 % Normal 0.2-2.0 [facility] Comment on above: Performed By: #### C BC #### [facility] [address] [place] [address] Dr. Jerry Samuel EO # 0.1 103/ul Normal 0.0-0.7 [facility] Comment on above: Performed By: #### C BC #### [facility] [address] [place] [address] Dr. Jerry Samuel Eosinophils/100 WBC (Bld) 1.4 % Normal 0.9-7.0 [facility] Comment on above: Performed By: #### C BC #### [facility] [address] [place] [address] Dr. Jerry Samuel Erythrocyte distribution width (RBC) [Ratio] 13.2 % Normal 11.0-15.0 [facility] Comment on above: Performed By: #### C BC #### [facility] [address] [place] [address] Dr. Jerry Samuel Hematocrit (Bld) [Volume fraction] 33.9 % Critically low 36.0-48.0 [facility] Comment on above: Performed By: #### C BC #### [facility] [address] [place] [address] Dr. Jerry Samuel Hemoglobin (Bld) [Mass/Vol] 11.3 g/dL Critically low 12.0-16.0 [facility] Comment on above: Performed By: #### C BC #### [facility] [address] [place] [address] Dr. Jerry Samuel IG # 0.04 10e3/ul Critically high 0.00-0.03 [facility] Comment on above: Performed By: #### C BC #### [facility] [address] [place] [address] Dr. Jerry Samuel IG % 0.6 % Critically high 0.0-0.5 [facility] Comment on above: Performed By: #### C BC #### [facility] [address] [place] [address] Dr. Jerry Samuel LYMPH # 1.9 103/ul Normal 1.2-3.8 [facility] Comment on above: Performed By: #### C BC #### [facility] [address] [place] [address] Dr. Jerry Samuel Lymphocytes/100 WBC (Bld) 30.2 % Normal 20.5-60.0 [facility] Comment on above: Performed By: #### C BC #### [facility] [address] [place] [address] Dr. Jerry Samuel MANUAL DIFF REQ NO Normal [facility] Comment on above: Performed By: #### C BC #### [facility] [address] [place] [address] Dr. Jerry Samuel MCH (RBC) [Entitic mass] 29.9 pg Normal 26.7-34.0 [facility] Comment on above: Performed By: #### C BC #### [facility] [address] [place] [address] Dr. Jerry Samuel MCHC (RBC) [Mass/Vol] 33.3 g/dL Normal 29.9-35.2 [facility] Comment on above: Performed By: #### C BC #### [facility] [address] [place] [address] Dr. Jerry Samuel MCV (RBC) [Entitic vol] 89.7 fL Normal 81.0-99.0 [facility] Comment on above: Performed By: #### C BC #### [facility] [address] [place] [address] Dr. Jerry Samuel MONO # 0.5 103/ul Normal 0.3-0.8 [facility] Comment on above: Performed By: #### C BC #### [facility] [address] [address] [address] Jerry Samuel Monocytes/100 WBC (Bld) 7.2 % Normal 1.7-12.0 [facility] Comment on above: Performed By: #### C BC #### [facility] [address] [address] [address] Jerry Samuel NEUT # 3.8 103/ul Normal 1.4-6.5 [facility] Comment on above: Performed By: #### C BC #### [facility] [address] [address] [address] Jerry Samuel Neutrophils/100 WBC (Bld) 60.3 % Normal 43.0-75.0 [facility] Comment on above: Performed By: #### C BC #### [facility] [address] [place] [address] Dr. Jerry Samuel Platelet mean volume (Bld) [Entitic vol] 9.8 fL Normal 9.5-13.5 [facility] Comment on above: Performed By: #### C BC #### [facility] [address] [place] [address] Dr. Jerry Samuel PLT 188 103/ul Normal 150-450 [facility] Comment on above: Performed By: #### C BC #### [facility] [address] [address] [address] Jerry Samuel RBC 3.78 106/ul Critically low 4.20-5.40 [facility] Comment on above: Performed By: #### C BC #### [facility] [address] [address] [address] Jerry Samuel WBC 6.2 103/ul Normal 4.0-11.0 [facility] Comment on above: Performed By: #### C BC #### [facility] [address] [place] [address] Dr. Jerry Samuel GLUCOSE - 1HRon 07-25-2022 Glucose [Mass/Vol] 100 mg/dL Normal 74-106 [facility] Comment on above: Performed By: #### N BOX #### [facility] [address] [place], [place] [address] Dr. Jerry Samuel US PREG ANATOMY SINGLEon [...] PRQ #### [facility] [address] [place], [place] [address] Dr. Jerry Samuel AFP Value 39.6 ng/mL Normal [facility] Comment on above: Performed By: #### R PRQ #### [facility] [address] [place] [address] Dr. Jerry Samuel AFP, Serum for Spina Bifida Report Normal [facility] Comment on above: Performed By: #### R PRQ #### [facility] [address] [place] [address] Dr. Jerry Samuel Comment Comment Normal [facility] Comment on above: Result Comment: Irina Petersen, Ph.D., [facility] Director . References: Available Upon Request. . Multiples Of Median Cutoffs For AFP Elevations Patrick 2.5 Black 2.8 IDD 2.0 Twins 4.5 Abbreviation Definitions IDD - Insulin Dep Diabetes OSBR - Open Spina Bifida Risk . For further inquiries contact [employer] [facility] at [phone]. . This test was developed and its performance characteristics determined by [employer]. It has not been cleared or approved by the Food and Drug Administration. Performed By: #### R PRQ #### [facility] [address] [place] [address] Dr. Jerry Samuel Gest Age Collection Date 18.9 weeks Normal [facility] Comment on above: Performed By: #### R PRQ #### [facility] [address] [place] [address] Dr. Jerry Samuel Gestat, Age Based on Ultrasound Normal [facility] Comment on above: Result Comment: 09.0 on 04/04/2022 Recalculations are not recommended when gestational dating by LMP and ultrasound are within 10 days. Performed By: #### R PRQ #### [facility] [address] [place] [address] Dr. Jerry Samuel Insulin Dep Diabetes No Normal [facility] Comment on above: Performed By: #### R PRQ #### [facility] [address] [place] [address] Dr. Jerry Samuel Interpretation Comment Normal [facility] Comment on above: Result Comment: Inte [...] Customer Services to discuss available options. The [employer] recommends amniocentesis be offered to women age 35 and older. Performed By: #### R PRQ #### [facility] [address] [place] [address] Dr. Jerry Samuel [age] Normal [facility] Comment on above: Performed By: #### R PRQ #### [facility] [address] [place] [address] Dr. Jerry Samuel Multiple Gestation No Normal [facility] Comment on above: Performed By: #### R PRQ #### [facility] [address] [place] [address] Dr. Jerry Samuel [place] [address] Normal [facility] Comment on above: Performed By: #### R PRQ #### [facility] [address] [address] [address] Jerry Samuel PDF . Normal [facility] Comment on above: Performed By: #### R PRQ #### [facility] [address] [place] [address] Dr. Jerry Samuel Race Normal [facility] Comment on above: Performed By: #### R PRQ #### [facility] [address] [place] [address] Dr. Jerry Samuel Test Results: Negative Normal [facility] Comment on above: Performed By: #### R PRQ #### [facility] [address] [place] [address] Dr. Jerry Samuel CHLAMYDIA/GONOCOCCUS ELINOR (SW AB/URINE/PAPon 06-07-2022 Chlamydia trachomatis, ELINOR Negative Normal Negative [facility] Comment on above: Performed By: #### R PRQ #### [facility] [address] [place] [address] Dr. Jerry Samuel Neisseria gonorrhoeae, ELINOR Negative Normal Negative [facility] Comment on above: Performed By: #### R PRQ #### [facility] [address] [place] [address] Dr. Jerry Samuel VAGINITIS/VAGINOSIS DNA PROB Nayan 06-06-2022 Saira species Negative Normal Negative [facility] Comment on above: Performed By: #### V AGINT #### [facility] [address] [place] [address] Dr. Jerry Samuel Gardnerella vaginalis Negative Normal Negative [facility] Comment on above: Performed By: #### V AGINT #### [facility] [address] [place] [address] Dr. Jerry Samuel Trichomonas vaginalis Negative Normal Negative [facility] Comment on above: Performed By: #### V AGINT #### [facility] [address] [place] [address] Dr. Jerry Samuel CBC AUTO DIFFon 05-26-2022 BASO # 0.0 103/ul Normal 0.0-0.1 [facility] Comment on above: Performed By: #### C BC #### [facility] [address] [place] [address] Dr. Jerry Samuel Basophils/100 WBC (Bld) 0.1 % Critically low 0.2-2.0 [facility] Comment on above: Performed By: #### C BC #### [facility] [address] [place] [address] Dr. Jerry Samuel EO # 0.0 103/ul Normal 0.0-0.7 [facility] Comment on above: Performed By: #### C BC #### [facility] [address] [place] [address] Dr. Jerry Samuel Eosinophils/100 WBC (Bld) 0.4 % Critically low 0.9-7.0 [facility] Comment on above: Performed By: #### C BC #### [facility] [address] [place] [address] Dr. Jerry Samuel Erythrocyte distribution width (RBC) [Ratio] 12.6 % Normal 11.0-15.0 [facility] Comment on above: Performed By: #### C BC #### [facility] [address] [place] [address] Dr. Jerry Samuel Hematocrit (Bld) [Volume fraction] 34.0 % Critically low 36.0-48.0 [facility] Comment on above: Performed By: #### C BC #### [facility] [address] [place] [address] Dr. Jerry Samuel Hemoglobin (Bld) [Mass/Vol] 11.6 g/dL Critically low 12.0-16.0 [facility] Comment on above: Performed By: #### C BC #### [facility] [address] [place] [address] Dr. Jerry Samuel IG # 0.03 10e3/ul Normal 0.00-0.03 [facility] Comment on above: Performed By: #### C BC #### [facility] [address] [place] [address] Dr. Jerry Samuel IG % 0.4 % Normal 0.0-0.5 [facility] Comment on above: Performed By: #### C BC #### [facility] [address] [place] [address] Dr. Jerry Samuel LYMPH # 1.1 103/ul Critically low 1.2-3.8 [facility] Comment on above: Performed By: #### C BC #### [facility] [address] [place] [address] Dr. Jerry Samuel Lymphocytes/100 WBC (Bld) 16.5 % Critically low 20.5-60.0 [facility] Comment on above: Performed By: #### C BC #### [facility] [address] [place] [address] Dr. Jerry Samuel MANUAL DIFF REQ NO Normal [facility] Comment on above: Performed By: #### C BC #### [facility] [address] [place] [address] Dr. Jerry Samuel MCH (RBC) [Entitic mass] 29.1 pg Normal 26.7-34.0 [facility] Comment on above: Performed By: #### C BC #### [facility] [address] [place] [address] Dr. Jerry Samuel MCHC (RBC) [Mass/Vol] 34.1 g/dL Normal 29.9-35.2 [facility] Comment on above: Performed By: #### C BC #### [facility] [address] [place] [address] Dr. Jerry Samuel MCV (RBC) [Entitic vol] 85.2 fL Normal 81.0-99.0 [facility] Comment on above: Performed By: #### C BC #### [facility] [address] [place] [address] Dr. Jerry Samuel MONO # 0.4 103/ul Normal 0.3-0.8 [facility] Comment on above: Performed By: #### C BC #### [facility] [address] [place] [address] Dr. Jerry Samuel Monocytes/100 WBC (Bld) 6.0 % Normal 1.7-12.0 [facility] Comment on above: Performed By: #### C BC #### [facility] [address] [place] [address] Dr. Jerry Samuel NEUT # 5.1 103/ul Normal 1.4-6.5 [facility] Comment on above: Performed By: #### C BC #### [facility] [address] [place] [address] Dr. Jerry Samuel Neutrophils/100 WBC (Bld) 76.6 % Critically high 43.0-75.0 [facility] Comment on above: Performed By: #### C BC #### [facility] [address] [place] [address] Dr. Jerry Samuel Platelet mean volume (Bld) [Entitic vol] 10.5 fL Normal 9.5-13.5 [facility] Comment on above: Performed By: #### C BC #### [facility] [address] [place] [address] Dr. Jerry Samuel PLT 207 103/ul Normal 150-450 [facility] Comment on above: Performed By: #### C BC #### [facility] [address] [place] [address] Dr. Jerry Samuel RBC 3.99 106/ul Critically low 4.20-5.40 [facility] Comment on above: Performed By: #### C BC #### [facility] [address] [place] [address] Dr. Jeryr Samuel WBC 6.7 103/ul Normal 4.0-11.0 [facility] Comment on above: Performed By: #### C BC #### [facility] [address] [place] [address] Dr. Jerry Samuel ER URINE PROFILEon 3 Bilirubin Ql (U) Negative Normal NEGATIVE [facility] Comment on above: Performed By: #### E RUR #### [facility] [address] [place] [address] Dr. Jerry Samuel Clarity (U) CLEAR Normal CLEAR [facility] Comment on above: Performed By: #### E RUR #### [facility] [address] [place] [address] Dr. Jerry Samuel Color (U) LT. YELLOW Normal YELLOW [facility] Comment on above: Performed By: #### E RUR #### [facility] [address] [place] [address] Dr. Jerry MUÑIZAnhay A micrscopic examination will be performed if indicated. Normal [facility] Comment on above: Performed By: #### E RUR #### [facility] [address] [place] [address] Dr. Jerry Samuel Glucose Ql (U) Negative Normal NEGATIVE [facility] Comment on above: Performed By: #### E RUR #### [facility] [address] [place] [address] Dr. Jerry Samuel Hemoglobin Ql (U) Negative Normal NEGATIVE [facility] Comment on above: Performed By: #### E RUR #### [facility] [address] [place] [address] Dr. Jerry Samuel Ketones Ql (U) Negative Normal NEGATIVE [facility] Comment on above: Performed By: #### E RUR #### [facility] [address] [place] [address] Dr. Jerry Samuel LEUKOCYTES Negative Normal NEGATIVE [facility] Comment on above: Performed By: #### E RUR #### [facility] [address] [place] [address] Dr. Jerry Samuel Nitrite Ql (U) Negative Normal NEGATIVE [facility] Comment on above: Performed By: #### E RUR #### [facility] [address] [place] [address] Dr. Jerry Samuel pH (U) 6.5 [pH] Normal 5-9 [facility] Comment on above: Performed By: #### E RUR #### [facility] [address] [place] [address] Dr. Jerry Samuel SPEC GRAVITY <=1.005 Abnormal 1.005-<=1.025 [facility] Comment on above: Performed By: #### E RUR #### [facility] [address] [place] [address] Dr. Jerry Samuel UA PROTEIN Negative Normal NEGATIVE/ TRACE [facility] Comment on above: Performed By: #### E RUR #### [facility] [address] [place] [address] Dr. Jerry Samuel UR MICRO IND NOT INDICATED Normal [facility] Comment on above: Performed By: #### E RUR #### [facility] [address] [place] [address] Dr. Jerry Samuel Urobilinogen Qn (U) 0.2 {Charlette'U}/dL Normal 0.2 - 1. 0 [facility] Comment on above: Performed By: #### E RUR #### [facility] [address] [place] [address] Dr. Jerry Samuel PROF 14(COMP METB)on 023 Albumin [Mass/Vol] 3.4 g/dL Normal 3.4-5.0 [facility] Comment on above: Performed By: #### R PRQ #### [facility] [address] [place] [address] Dr. Jerry Samuel Albumin/Globulin [Mass ratio] 1.0 {ratio} Normal [facility] Comment on above: Performed By: #### R PRQ #### [facility] [address] [address] [address] Jerry Samuel ALP [Catalytic activity/Vol] 33 U/L Critically low 46-116 [facility] Comment on above: Performed By: #### R PRQ #### [facility] [address] [address] [address] Jerry Samuel ALT [Catalytic activity/Vol] 16 U/L Normal 14-59 [facility] Comment on above: Performed By: #### R PRQ #### [facility] [address] [address] [address] Jerry Samuel Anion gap [Moles/Vol] 8.5 mmol/L Normal [facility] Comment on above: Performed By: #### R PRQ #### [facility] [address] [place] [address] Dr. Jerry Samuel AST [Catalytic activity/Vol] 12 U/L Critically low 15-37 [facility] Comment on above: Performed By: #### R PRQ #### [facility] [address] [address] [address] Jerry Samuel Bilirubin [Mass/Vol] 0.3 mg/dL Normal 0.2-1.0 [facility] Comment on above: Performed By: #### R PRQ #### [facility] [address] [place] [address] Dr. Jerry Samuel Calcium [Mass/Vol] 9.2 mg/dL Normal 8.5-10.1 [facility] Comment on above: Performed By: #### R PRQ #### [facility] [address] [address] [address] Jerry Samuel Chloride [Moles/Vol] 105 mmol/L Normal 98-107 [facility] Comment on above: Performed By: #### R PRQ #### [facility] [address] [address] [address] Jerry Samuel CO2 [Moles/Vol] 25.0 mmol/L Normal 21.0-32.0 [facility] Comment on above: Performed By: #### R PRQ #### [facility] [address] [place] [address] Dr. Jerry Samuel Creatinine [Mass/Vol] 0.40 mg/dL Critically low 0.55-1.02 [facility] Comment on above: Performed By: #### R PRQ #### [facility] [address] [place] [address] Dr. Jerry Samuel EGFR-AF [place] >60 Normal >=60 [facility] Comment on above: Performed By: #### R PRQ #### [facility] [address] [place] [address] Dr. Jerry Samuel EGFR-NON AF [place] >60 Normal >=60 [facility] Comment on above: Performed By: #### R PRQ #### [facility] [address] [place] [address] Dr. Jerry Samuel Globulin (S) [Mass/Vol] 3.5 g/dL Normal [facility] Comment on above: Performed By: #### R PRQ #### [facility] [address] [place] [address] Dr. Jerry Samuel Glucose [Mass/Vol] 94 mg/dL Normal 74-106 [facility] Comment on above: Performed By: #### R PRQ #### [facility] [address] [place] [address] Dr. Jerry Samuel Potassium [Moles/Vol] 3.5 mmol/L Normal 3.5-5.1 [facility] Comment on above: Performed By: #### R PRQ #### [facility] [address] [place] [address] Dr. Jerry Samuel Protein [Mass/Vol] 6.9 g/dL Normal 6.4-8.2 [facility] Comment on above: Performed By: #### R PRQ #### [facility] [address] [place] [address] Dr. Jerry Samuel Sodium [Moles/Vol] 135 mmol/L Critically low 136-145 [facility] Comment on above: Performed By: #### R PRQ #### [facility] [address] [place] [address] Dr. Jerry Samuel Urea nitrogen [Mass/Vol] 6.0 mg/dL Critically low 7.0-18.0 [facility] Comment on above: Performed By: #### R PRQ #### [facility] [address] [place] [address] Dr. Jerry Samuel Urea nitrogen/Creatinine [Mass ratio] 15.0 mg/mg Normal [facility] Comment on above: Performed By: #### R PRQ #### [facility] [address] [place] [address] Dr. Jerry Samuel DOROTEO BOX TEST PT SEND OUTo n 05-02-2022 SENT TO REF LAB 05/02/2022 Normal [facility] Comment on above: Performed By: #### N BOX #### [facility] [address] [place] [address] Dr. Jerry Samuel HEP B SURFACE ANTIGEN SCREEN on 04-05-2022 HBsAg Screen Negative Normal Negative [facility] Comment on above: Performed By: #### N BOX #### [facility] [address] [place] [address] Dr. Jerry Samuel HEPATITIS C VIRUS AB W/ REFL EX QUANTon 04-05-2022 HCV AB <0.1 Normal 0.0-0.9 [facility] Comment on above: Performed By: #### H CVPCRR #### [facility] [address] [place] [address] Dr. Jerry Samuel Interpretation: Comment Normal [facility] Comment on above: Result Comment: Nega tive Not infected with HCV, unless recent infection is suspected or other evidence exists to indicate HCV infection. Performed By: #### H CVPCRR #### [facility] [address] [place] [address] Dr. Jerry Samuel HIV 1 AND 2 WITH REFLEXon HIV Screen 4th Generation wRfx Non-Reactive Normal Non Reactive [facility] Comment on above: Result Comment: HIV Negative HIV-1/HIV-2 antibodies and HIV-1 p24 antigen were NOT detected. There is no laboratory evidence of HIV infection. Performed By: #### R PRQ #### [facility] [address] [place] [address] Dr. Jerry Samuel RPR QUANTon 04-05-2022 Rapid Plasma Reagin, Quant Non-Reactive Normal NonRea<1:1 [facility] Comment on above: Result Comment: Nathaly wilkes Note: This test does not meet current guidelines for screening and diagnosis of syphilis. This test is intended for following treatment response in patients being treated for syphilis infection. To screen for syphilis infection, a reflex cascade that includes both RPR and a treponema-specific assay should be utilized, such as Treponema pallidum (Syphilis) Screening Qulin (648038) or Rapid Plasma Reagin (RPR) Test With Reflex to Quantitative RPR and Confirmatory Treponema pallidum Antibodies (135881). Performed By: #### R PRQ #### [facility] [address] [place] [address] Dr. Jerry Samuel RUBELLA AB IGGon 04-05-2022 Rubella Antibodies, IgG 1.97 index Normal Immune >0.99 [facility] Comment on above: Result Comment: Non- immune <0.90 Equivocal 0.90 - 0.99 Immune >0.99 Performed By: #### R UBIGG #### [facility] [address] [place] [address] Dr. Jerry Samuel CBC AUTO DIFFon 04-04-2022 BASO # 0.0 103/ul Normal 0.0-0.1 [facility] Comment on above: Performed By: #### R PRQ #### [facility] [address] [place] [address] Dr. Jerry Samuel Basophils/100 WBC (Bld) 0.3 % Normal 0.2-2.0 [facility] Comment on above: Performed By: #### R PRQ #### [facility] [address] [place] [address] Dr. Jerry Samuel EO # 0.1 103/ul Normal 0.0-0.7 [facility] Comment on above: Performed By: #### R PRQ #### [facility] [address] [place] [address] Dr. Jerry Samuel Eosinophils/100 WBC (Bld) 0.7 % Critically low 0.9-7.0 [facility] Comment on above: Performed By: #### R PRQ #### [facility] [address] [place] [address] Dr. Jerry Samuel Erythrocyte distribution width (RBC) [Ratio] 12.3 % Normal 11.0-15.0 [facility] Comment on above: Performed By: #### R PRQ #### [facility] [address] [place] [address] Dr. Jerry Samuel Hematocrit (Bld) [Volume fraction] 35.1 % Critically low 36.0-48.0 [facility] Comment on above: Performed By: #### R PRQ #### [facility] [address] [place] [address] Dr. Jerry Samuel Hemoglobin (Bld) [Mass/Vol] 11.8 g/dL Critically low 12.0-16.0 [facility] Comment on above: Performed By: #### R PRQ #### [facility] [address] [place] [address] Dr. Jerry Samuel IG # 0.02 10e3/ul Normal 0.00-0.03 [facility] Comment on above: Performed By: #### R PRQ #### [facility] [address] [place] [address] Dr. Jerry Samuel IG % 0.3 % Normal 0.0-0.5 [facility] Comment on above: Performed By: #### R PRQ #### [facility] [address] [place] [address] Dr. Jerry Samuel LYMPH # 2.0 103/ul Normal 1.2-3.8 [facility] Comment on above: Performed By: #### R PRQ #### [facility] [address] [place] [address] Dr. Jerry Samuel Lymphocytes/100 WBC (Bld) 26.7 % Normal 20.5-60.0 [facility] Comment on above: Performed By: #### R PRQ #### [facility] [address] [place] [address] Dr. Jerry Samuel MANUAL DIFF REQ NO Normal [facility] Comment on above: Performed By: #### R PRQ #### [facility] [address] [address] [address] Jerry Samuel MCH (RBC) [Entitic mass] 29.0 pg Normal 26.7-34.0 [facility] Comment on above: Performed By: #### R PRQ #### [facility] [address] [place] [address] Dr. Jerry Samuel MCHC (RBC) [Mass/Vol] 33.6 g/dL Normal 29.9-35.2 [facility] Comment on above: Performed By: #### R PRQ #### [facility] [address] [place] [address] Dr. Jerry Samuel MCV (RBC) [Entitic vol] 86.2 fL Normal 81.0-99.0 [facility] Comment on above: Performed By: #### R PRQ #### [facility] [address] [place] [address] Dr. Jerry Samuel MONO # 0.5 103/ul Normal 0.3-0.8 [facility] Comment on above: Performed By: #### R PRQ #### [facility] [address] [place] [address] Dr. Jerry Samuel Monocytes/100 WBC (Bld) 6.7 % Normal 1.7-12.0 [facility] Comment on above: Performed By: #### R PRQ #### [facility] [address] [place] [address] Dr. Jerry Samuel NEUT # 4.9 103/ul Normal 1.4-6.5 [facility] Comment on above: Performed By: #### R PRQ #### [facility] [address] [place] [address] Dr. Jerry Samuel Neutrophils/100 WBC (Bld) 65.3 % Normal 43.0-75.0 [facility] Comment on above: Performed By: #### R PRQ #### [facility] [address] [place] [address] Dr. Jerry Samuel Platelet mean volume (Bld) [Entitic vol] 10.0 fL Normal 9.5-13.5 [facility] Comment on above: Performed By: #### R PRQ #### [facility] [address] [address] [address] Jerry Samuel PLT 218 103/ul Normal 150-450 [facility] Comment on above: Performed By: #### R PRQ #### [facility] [address] [address] [address] Jerry Samuel RBC 4.07 106/ul Critically low 4.20-5.40 [facility] Comment on above: Performed By: #### R PRQ #### [facility] [address] [address] [address] Jerry Samuel WBC 7.5 103/ul Normal 4.0-11.0 [facility] Comment on above: Performed By: #### R PRQ #### [facility] [address] [place] [address] Dr. Jerry Samuel CULTURE URINEon 04-04-2022 CULTURE URINE Culture Observations : NO GROWTH. Normal [facility] Comment on above: Performed By: #### N BOX #### [facility] [address] [address] [address] Jerry Samuel GLYCOHEMOGLOBIN A1Con 2021 ADA RECOMMENDATION SEE BELOW Normal [facility] Comment on above: Result Comment: ADA RECOMMENDED LIMIT 4.0 - 6.0 ADA THERAPEUTIC TARGET < 7.0 ACTION SUGGESTED > 7.0 Performed By: #### N BOX #### [facility] [address] [address] [address] Jerry Samuel Glucose [Mass/Vol] 97 mg/dL Normal [facility] Comment on above: Performed By: #### N BOX #### [facility] [address] [address] [address] Jerry Samuel HbA1c (Bld) [Mass fraction] 5.0 % Normal 4.5-6.2 [facility] Comment on above: Performed By: #### N BOX #### [facility] [address] [address] [address] Jerry Samuel TYPE AND SCREENon 04-04-2022 TYPE AND SCREEN Negative Normal [facility] Comment on above: Performed By: #### N BOX #### [facility] [address] [place] [address] Dr. Jerry Samuel US PREG TVon 04-04-2022 [...] HCGon 03-07-2022 HCG QUANT 2201 mIU/mL Normal [facility] Comment on above: Performed By: #### R PRQ #### [facility] [address] [place] [address] Dr. Jerry Samuel HCG RANGE SEE BELOW Normal [facility] Comment on above: Result Comment: 5-50 0.2-1 WEEK 50-500 1-2 WEEKS 100-5,000 2-3 WEEKS 500-10,000 3-4 WEEKS 1,000-50,000 4-5 WEEKS 10,000-100,000 5-6 WEEKS 15,000-200,000 6-8 WEEKS 10,000-100,000 2-3 MONTHS Performed By: #### R PRQ #### [facility] [address] [place] [address] Dr. Jerry Samuel PREG QUANT HCGon 03-05-2022 HCG QUANT 820 mIU/mL Normal [facility] Comment on above: Performed By: #### R PRQ #### [facility] [address] [place] [address] Dr. Jerry Samuel HCG RANGE SEE BELOW Normal [facility] Comment on above: Result Comment: 5-50 0.2-1 WEEK 50-500 1-2 WEEKS 100-5,000 2-3 WEEKS 500-10,000 3-4 WEEKS 1,000-50,000 4-5 WEEKS 10,000-100,000 5-6 WEEKS 15,000-200,000 6-8 WEEKS 10,000-100,000 2-3 MONTHS Performed By: #### R PRQ #### [facility] [address] [place] [address] Dr. Jerry Samuel PAP ACOG PANEL 2: 22 to 30on 02-21-2022 . . [facility] Comment on above: Performed By: #### R PRQ #### [facility] [address] [place] [address] Dr. Jerry Samuel Age Gdln ACOG Testing - [facility] Comment on above: Performed By: #### R PRQ #### [facility] [address] [place] [address] Dr. Jerry Samuel DIAGNOSIS: Comment [facility] Comment on above: Result Comment: NEGA TIVE FOR INTRAEPITHELIAL LESION OR MALIGNANCY. SPECIMEN REPROCESSED FOR INTERPRETATION. Performed By: #### R PRQ #### [facility] [address] [address] [address] Jerry Samuel Methodology: Comment [facility] Comment on above: Result Comment: This liquid based ThinPrep(R) pap test was screened with the use of an image guided system. Performed By: #### R PRQ #### [facility] [address] [place] [address] Dr. Jerry Samuel Note: Comment [facility] Comment on above: Result Comment: The [...] R PRQ #### [facility] [address] [place] [address] Dr. Jerry Samuel Performed by: Comment [facility] Comment on above: Result Comment: Anders Roman, Floor Plan Adjuster (ASCP) Performed By: #### R PRQ #### [facility] [address] [place] [address] Dr. Jerry Samuel Reflex Criteria: Comment Normal [facility] Comment on above: Result Comment: The HPV DNA reflex criteria were not met with this specimen result therefore, no HPV testing was performed. . Performed By: #### R PRQ #### [facility] [address] [place] [address] Dr. Jerry Samuel Specimen adequacy: Comment Normal [facility] Comment on above: Result Comment: Sati sfactory for evaluation. Endocervical and/or squamous metaplastic cells (endocervical component) are present. Performed By: #### R PRQ #### [facility] [address] [place] [address] Dr. Jerry Samuel US PELVIS AND TRANSVAGon [...] EDITH WILLIS Date: 2022-02-13 14:34 Normal [facility] CBC AUTO DIFFon 02-12-2022 BASO # 0.0 103/ul Normal 0.0-0.1 [facility] Comment on above: Performed By: #### C BC #### [facility] [address] [place] [address] Dr. Jerry Samuel Basophils/100 WBC (Bld) 0.6 % Normal 0.2-2.0 [facility] Comment on above: Performed By: #### C BC #### [facility] [address] [place] [address] Dr. Jerry Samuel EO # 0.1 103/ul Normal 0.0-0.7 [facility] Comment on above: Performed By: #### C BC #### [facility] [address] [place] [address] Dr. Jerry Samuel Eosinophils/100 WBC (Bld) 1.2 % Normal 0.9-7.0 [facility] Comment on above: Performed By: #### C BC #### [facility] [address] [place] [address] Dr. Jerry Samuel Erythrocyte distribution width (RBC) [Ratio] 11.9 % Normal 11.0-15.0 [facility] Comment on above: Performed By: #### C BC #### [facility] [address] [place] [address] Dr. Jerry Samuel Hematocrit (Bld) [Volume fraction] 39.1 % Normal 36.0-48.0 [facility] Comment on above: Performed By: #### C BC #### [facility] [address] [place] [address] Dr. Jerry Samuel Hemoglobin (Bld) [Mass/Vol] 13.0 g/dL Normal 12.0-16.0 [facility] Comment on above: Performed By: #### C BC #### [facility] [address] [place] [address] Dr. Jerry Samuel IG # 0.01 10e3/ul Normal 0.00-0.03 [facility] Comment on above: Performed By: #### C BC #### [facility] [address] [place] [address] Dr. Jerry Samuel IG % 0.2 % Normal 0.0-0.5 [facility] Comment on above: Performed By: #### C BC #### [facility] [address] [place] [address] Dr. Jerry Samuel LYMPH # 2.4 103/ul Normal 1.2-3.8 [facility] Comment on above: Performed By: #### C BC #### [facility] [address] [place] [address] Dr. Jerry Samuel Lymphocytes/100 WBC (Bld) 37.7 % Normal 20.5-60.0 [facility] Comment on above: Performed By: #### C BC #### [facility] [address] [place] [address] Dr. Jerry Samuel MANUAL DIFF REQ NO Normal [facility] Comment on above: Performed By: #### C BC #### [facility] [address] [place] [address] Dr. Jerry Samuel MCH (RBC) [Entitic mass] 29.2 pg Normal 26.7-34.0 [facility] Comment on above: Performed By: #### C BC #### [facility] [address] [place] [address] Dr. Jerry Samuel MCHC (RBC) [Mass/Vol] 33.2 g/dL Normal 29.9-35.2 [facility] Comment on above: Performed By: #### C BC #### [facility] [address] [place] [address] Dr. Jerry Samuel MCV (RBC) [Entitic vol] 87.9 fL Normal 81.0-99.0 [facility] Comment on above: Performed By: #### C BC #### [facility] [address] [place] [address] Dr. Jerry Samuel MONO # 0.4 103/ul Normal 0.3-0.8 [facility] Comment on above: Performed By: #### C BC #### [facility] [address] [place] [address] Dr. Jerry Samuel Monocytes/100 WBC (Bld) 5.9 % Normal 1.7-12.0 [facility] Comment on above: Performed By: #### C BC #### [facility] [address] [place] [address] Dr. Jerry Samuel NEUT # 3.5 103/ul Normal 1.4-6.5 [facility] Comment on above: Performed By: #### C BC #### [facility] [address] [place] [address] Dr. Jerry Samuel Neutrophils/100 WBC (Bld) 54.4 % Normal 43.0-75.0 [facility] Comment on above: Performed By: #### C BC #### [facility] [address] [place] [address] Dr. Jerry Samuel Platelet mean volume (Bld) [Entitic vol] 9.9 fL Normal 9.5-13.5 [facility] Comment on above: Performed By: #### C BC #### [facility] [address] [place] [address] Dr. Jerry Samuel PLT 229 103/ul Normal 150-450 [facility] Comment on above: Performed By: #### C BC #### [facility] [address] [place] [address] Dr. Jerry Samuel RBC 4.45 106/ul Normal 4.20-5.40 [facility] Comment on above: Performed By: #### C BC #### [facility] [address] [place] [address] Dr. Jerry Samuel WBC 6.5 103/ul Normal 4.0-11.0 [facility] Comment on above: Performed By: #### C BC #### [facility] [address] [place] [address] Dr. Jerry Samuel FREE T4on 02-12-2022 Free T4 [Mass/Vol] 0.99 ng/dL Normal 0.76-1.46 [facility] Comment on above: Performed By: #### R PRQ #### [facility] [address] [place] [address] Dr. Jerry Samuel GLYCOHEMOGLOBIN A1Con 2021 ADA RECOMMENDATION SEE BELOW Normal [facility] Comment on above: Result Comment: ADA RECOMMENDED LIMIT 4.0 - 6.0 ADA THERAPEUTIC TARGET < 7.0 ACTION SUGGESTED > 7.0 Performed By: #### R PRQ #### [facility] [address] [place] [address] Dr. Jerry Samuel Glucose [Mass/Vol] 103 mg/dL Normal [facility] Comment on above: Performed By: #### R PRQ #### [facility] [address] [place] [address] Dr. Jerry Samuel HbA1c (Bld) [Mass fraction] 5.2 % Normal 4.5-6.2 [facility] Comment on above: Performed By: #### R PRQ #### [facility] [address] [place] [address] Dr. Jerry Samuel PROTIMEon 02-12-2022 INR Coag (PPP) [Relative time] 1.00 {INR} Normal [facility] Comment on above: Performed By: #### N BOX #### [facility] [address] [place] [address] Dr. Jerry Samuel INR GUIDELINES SEE BELOW Normal [facility] Comment on above: Result Comment: SACHA RED INR: 2.0 - 3.0 CONDITIONS NOT LISTED BELOW 2.5 - 3.5 FOR PROSTHETIC HEART VALVE REPLACEMENT 2.5 - 3.5 RECURRENT THROMBOSIS Performed By: #### N BOX #### [facility] [address] [place] [address] Dr. Jerry Samuel PT Coag (PPP) [Time] 10.8 s Normal 9.0-11.6 [facility] Comment on above: Performed By: #### N BOX #### [facility] [address] [place] [address] Dr. Jerry Samuel PTTon 02-12-2022 aPTT Coag (Bld) [Time] 27.8 s Normal 22.3-36.2 [facility] Comment on above: Performed By: #### N BOX #### [facility] [address] [place] [address] Dr. Jerry Samuel TSHon 02-12-2022 TSH 1.741 uIU/mL Normal 0.358-3.[address] [facility] Comment on above: Performed By: #### T SH #### [facility] [address] [place] [address] Dr. Jerry Samuel Outside [facility] 11-20-2021 Outside Records [id number] 11-16-2021 Outside Records [id number] [facility] Vital Signs Date Time Vital Sign Value Performing Clinician Facility 11-17-2024 09:29-0400 Body height 164.47 cm Britt Kimberly KATHLEEN Work Phone: [facility] 11-17-2024 09:29-0400 Body mass index (BMI) [Ratio] 28 kg/m2 Britt Kimberly FILLER SPREADER Work Phone: [facility] 11-17-2024 09:29-0400 Body temperature 97.6 [degF] Britt Kimberly CRUMN Work Phone: [facility] 11-17-2024 09:29-0400 Body weight 75.74 kg Britt Kimberly CRUMN Work Phone: [facility] 11-17-2024 09:29-0400 Diastolic blood pressure 64 mm[Hg] Britt Kimberly FILLER SPREADER Work Phone: [facility] 11-17-2024 09:29-0400 Heart rate 91 /min Britt Kimberly CRUMN Work Phone: [facility] 11-17-2024 09:29-0400 SaO2% (BldA) [Mass fraction] 97 % Britt Harris APRN Work Phone: [facility] 11-17-2024 09:29-0400 Systolic blood pressure 118 mm[Hg] Britt Harris APRN Work Phone: [facility] 09-08-2024 14:13-0400 Body height 164.47 cm Jennifer Marker DO Work Phone: [facility] 09-08-2024 14:13-0400 Body mass index (BMI) [Ratio] 28.5 kg/m2 Jennifer Marker DO Work Phone: [facility] 09-08-2024 14:13-0400 Body weight 77.11 kg Jennifer Marker DO Work Phone: [facility] 09-08-2024 14:13-0400 Diastolic blood pressure 80 mm[Hg] Jennifer Marker DO Work Phone: [facility] 09-08-2024 14:13-0400 Heart rate 71 /min Jennifer Marker DO Work Phone: [facility] 09-08-2024 14:13-0400 Systolic blood pressure 135 mm[Hg] Jennifer Marker DO Work Phone: [facility] 07-05-2024 15:29-0400 Body mass index (BMI) [Ratio] 28.55 kg/m2 Asif Nova DO Work Phone: [facility] 07-05-2024 15:29-0400 Body weight 85.19 kg Asif Nova DO Work Phone: [facility] 07-05-2024 15:29-0400 Diastolic blood pressure 78 mm[Hg] Asif Nova DO Work Phone: [facility] 07-05-2024 15:29-0400 Systolic blood pressure 118 mm[Hg] Asif Nova DO Work Phone: [facility] 06-07-2024 15:03-0500 Body mass index (BMI) [Ratio] 28.86 kg/m2 Asif Nova DO Work Phone: [facility] 06-07-2024 15:03-0500 Body weight 86.09 kg Asif Nova DO Work Phone: [facility] 06-07-2024 15:03-0500 Diastolic blood pressure 70 mm[Hg] Asif Nova DO Work Phone: [facility] 06-07-2024 15:03-0500 Systolic blood pressure 112 mm[Hg] Asif Nova DO Work Phone: [facility] 05-24-2024 14:28-0500 Body mass index (BMI) [Ratio] 29.32 kg/m2 Asif Nova DO Work Phone: [facility] 05-24-2024 14:28-0500 Body weight 87.45 kg Asif Nova DO Work Phone: [facility] 05-24-2024 14:28-0500 Diastolic blood pressure 70 mm[Hg] Asif Nova DO Work Phone: [facility] 05-24-2024 14:28-0500 Systolic blood pressure 120 mm[Hg] Asif Nova DO Work Phone: [facility] 05-11-2024 13:15-0500 Body mass index (BMI) [Ratio] 29.19 kg/m2 Kirsty Laurel PA Work Phone: [facility] 05-11-2024 13:15-0500 Body weight 87.09 kg Kirsty Laurel PA Work Phone: [facility] 05-11-2024 13:15-0500 Diastolic blood pressure 60 mm[Hg] Kirsty Eliceo PA Work Phone: [facility] 05-11-2024 13:15-0500 Systolic blood pressure 110 mm[Hg] Kirsty Laurel PA Work Phone: [facility] 04-27-2024 12:18-0500 Body mass index (BMI) [Ratio] 29.8 kg/m2 Asif Nova DO Work Phone: [facility] 04-27-2024 12:18-0500 Body weight 88.91 kg Asif Nova DO Work Phone: [facility] 04-27-2024 12:18-0500 Diastolic blood pressure 62 mm[Hg] Asif Nova DO Work Phone: [facility] 04-27-2024 12:18-0500 Systolic blood pressure 106 mm[Hg] Asif Nova DO Work Phone: [facility] 04-05-2024 13:24-0500 Body mass index (BMI) [Ratio] 30.38 kg/m2 Kirsty Siu JOSIAH Work Phone: [facility] 04-05-2024 13:24-0500 Body weight 90.63 kg Kirsty Siu PA Work Phone: [facility] 04-05-2024 13:24-0500 Diastolic blood pressure 64 mm[Hg] Kirsty Siu PA Work Phone: [facility] 04-05-2024 13:24-0500 Systolic blood pressure 104 mm[Hg] Kirsty Siu PA Work Phone: [facility] 03-08-2024 16:52-0500 Body mass index (BMI) [Ratio] 30.62 kg/m2 Asif Nova DO Work Phone: [facility] 03-08-2024 16:52-0500 Body weight 91.35 kg Asif Nova DO Work Phone: [facility] 03-08-2024 16:52-0500 Diastolic blood pressure 74 mm[Hg] Asif Nova DO Work Phone: [facility] 03-08-2024 16:52-0500 Systolic blood pressure 116 mm[Hg] Asif Nova DO Work Phone: [facility] 02-09-2024 16:03-0500 Body mass index (BMI) [Ratio] 30.11 kg/m2 Asif Onva DO Work Phone: [facility] 02-09-2024 16:03-0500 Body weight 89.81 kg Asif Nova DO Work Phone: [facility] 02-09-2024 16:03-0500 Diastolic blood pressure 70 mm[Hg] Asif Nova DO Work Phone: [facility] 02-09-2024 16:03-0500 Systolic blood pressure 118 mm[Hg] Asif Nova DO Work Phone: [facility] 01-07-2024 15:50-0400 Body mass index (BMI) [Ratio] 29.97 kg/m2 Asif Nova DO Work Phone: [facility] 01-07-2024 15:50-0400 Body weight 89.41 kg Asif Nova DO Work Phone: [facility] 01-07-2024 15:50-0400 Diastolic blood pressure 72 mm[Hg] Asif Nova DO Work Phone: [facility] 01-07-2024 15:50-0400 Systolic blood pressure 106 mm[Hg] Asif Nova DO Work Phone: [facility] 12-17-2023 11:17-0400 Body mass index (BMI) [Ratio] 30.33 kg/m2 Kirsty Eliceo PA Work Phone: [facility] 12-17-2023 11:17-0400 Body weight 90.49 kg Kirsty Laurel PA Work Phone: [facility] 12-17-2023 11:17-0400 Diastolic blood pressure 70 mm[Hg] Kirsty Laurel PA Work Phone: [facility] 12-17-2023 11:17-0400 Systolic blood pressure 104 mm[Hg] Kirsty Laurel PA Work Phone: [facility] 12-12-2023 09:34-0400 Body mass index (BMI) [Ratio] 30.41 kg/m2 [facility] 12-12-2023 09:34-0400 Body weight 90.72 kg Noms Nurse [facility] 12-12-2023 09:34-0400 Diastolic blood pressure 80 mm[Hg] [facility] 12-12-2023 09:34-0400 Systolic blood pressure 120 mm[Hg] [facility] 03-26-2023 13:45-0500 Body height 164.47 cm Ben Rose Other [employer] Other 03-26-2023 13:45-0500 Body mass index (BMI) [Ratio] 29.6 kg/m2 Ben Rsoe Other [employer] Other 03-26-2023 13:45-0500 Body weight 80.06 kg Ben Aldrichrigobertoaugusto Other [employer] Other 03-26-2023 13:45-0500 Diastolic blood pressure 74 mm[Hg] Ben Moralesy Other [employer] Other 03-26-2023 13:45-0500 Systolic blood pressure 120 mm[Hg] Ben Rose Other [employer] Other 06-14-2022 17:07-0500 Body weight 79.[address] ASIF BHATT . [facility] Comment on above: Performed By: #### RPRQ #### [facility] [address] [place] [address] Dr. Jerry Samuel 03-08-2022 11:15-0500 Body height 164.47 cm Ben Ditty Other [employer] Other 03-08-2022 11:15-0500 Body mass index (BMI) [Ratio] 29.01 kg/m2 Ben Elinorvitaliy Other [employer] Other 03-08-2022 11:15-0500 Body weight 78.47 kg Ben Rose Other [employer] Other 03-08-2022 11:15-0500 Diastolic blood pressure 73 mm[Hg] Ben Elinorrigobertoy Other [employer] Other 03-08-2022 11:15-0500 Systolic blood pressure 113 mm[Hg] Ben Elinortty Other [employer] Other Encounters Encounter Date Encounter Type Care Provider Facility Start: 11-17-2024 End: 11-17-2024 ambulatory Britt Kimberly KATHLEEN Work Phone: [facility] Work Phone: Start: 11-17-2024 End: 11-17-2024 Patient encounter procedure Britt Kimberly KATHLEEN [facility] Work Phone: Start: 09-08-2024 End: 09-08-2024 ambulatory Jennifer Marker DO Work Phone: [facility] Work Phone: Start: 09-08-2024 End: 09-08-2024 Patient encounter procedure Jennifer Marker DO Work Phone: [facility] Physician [facility] Work Phone: Start: 07-14-2024 Non-patient / Non-visit Meliss a Marker DO Work Phone: [facility] Physician [facility] Work Phone: Start: 07-14-2024 End: 07-14-2024 ambulatory Jennifer Jeri Marker [facility] Work Phone: Start: 07-14-2024 End: 07-14-2024 Departed Referred Jennifer Marker DO Work Phone: [facility] Start: 07-14-2024 Non-patient / Non-visit Meliss a Marker DO Work Phone: [facility] Physician [facility] Work Phone: Start: 07-05-2024 End: 07-05-2024 ambulatory ASIF NOVA Not Available Start: 07-05-2024 End: 07-05-2024 Postop follow up visit related to original px Asif Nova DO Work Phone: [facility] Comment on above: S/P ; Anxiety Start: 07-01-2024 Non-patient / Non-visit Meliss a Marker DO Work Phone: [facility] Work Phone: Start: 06-30-2024 Non-patient / Non-visit Meliss a Marker DO Work Phone: [facility] Work Phone: Start: 06-29-2024 End: 06-29-2024 Clinisync Result Encounter Asif Nova DO Work Phone: [facility] Unsolicited Start: 06-29-2024 End: 06-29-2024 Clinisync Result Encounter Asif Nova DO Work Phone: [facility] Unsolicited Start: 06-29-2024 Non-patient / Non-visit Meliss a Marker DO Work Phone: [facility] Work Phone: Start: 06-28-2024 End: 06-28-2024 ambulatory ASIF NOVA Not Available Start: 06-21-2024 Non-patient / Non-visit Meliss a Marker DO Work Phone: [facility] Work Phone: Start: 06-21-2024 End: 06-28-2024 Clinisync Result Encounter Kirsty RAHMAN Work Phone: [facility] Unsolicited Start: 06-21-2024 End: 06-28-2024 Clinisync Result Encounter Kirsty RAHMAN Work Phone: [facility] Unsolicited Start: 06-21-2024 End: 06-21-2024 ambulatory KIRSTY SIU Not Available Start: 06-07-2024 End: 06-07-2024 ambulatory ASIF NOVA Not Available Start: 06-07-2024 End: 06-07-2024 flow sheet Asif Nova DO Work Phone: [facility] Comment on above: 34 weeks gestation o f ; Third trimester ; Anxiety Start: 06-07-2024 End: 06-07-2024 Bamboo flowsheet Asif Nova DO Work Phone: [facility] Start: 06-07-2024 End: 06-07-2024 Bamboo flowsheet Asif Nova DO Work Phone: [facility] Start: 05-24-2024 End: 05-24-2024 flow sheet Asif Nova DO Work Phone: [facility] Comment on above: 32 weeks gestation o f ; Third trimester ; Anxiety Start: 05-24-2024 End: 05-24-2024 ambulatory ASIF NOVA Not Available Start: 05-11-2024 End: 05-11-2024 [...] trimester Start: 04-27-2024 End: 04-27-2024 Bamboo flowsheet Asif Nova DO Work Phone: [facility] Start: 04-27-2024 End: 04-27-2024 Bamboo flowsheet Asif Nova DO Work Phone: [facility] Start: 04-27-2024 End: 04-27-2024 ambulatory ASIF NOVA Not Available Start: 04-27-2024 End: 04-27-2024 flow sheet Asif Nova DO Work Phone: [facility] [...] Not Available Start: 03-08-2024 End: 03-08-2024 ambulatory ASIF NOVA Not Available Start: 03-08-2024 End: 03-08-2024 flow sheet Asif Nova DO Work Phone: [facility] Comment on above: Second trimester pre gnancy; 21 weeks gestation of Start: 03-08-2024 End: 03-08-2024 Bamboo flowsheet Asif Nova DO Work Phone: [facility] Start: 03-08-2024 End: 03-08-2024 Bamboo flowsheet Asif Nova DO Work Phone: [facility] Start: 02-18-2024 End: 02-20-2024 Clinisync Result Encounter Asif Nova DO Work Phone: [facility] Unsolicited Start: 02-18-2024 End: 02-20-2024 Clinisync Result Encounter Asif Nova DO Work Phone: [facility] External Department Unsolicited Start: 02-09-2024 End: 02-09-2024 Patient encounter procedure Asif Nova DO Work Phone: [facility] Start: 02-09-2024 End: 02-09-2024 flow sheet Asif Nova DO Work Phone: [facility] Comment on above: Second trimester pre gnancy; 17 weeks gestation of ; Well woman exam with routine gynecological exam; Exposure to STD; MSAFP (maternal serum alpha-fetoprotein) decreased; Screening, , for anatomic survey Start: 02-09-2024 End: 02-09-2024 ambulatory ASIF NOVA Not Available Start: 02-09-2024 End: 02-09-2024 Bamboo flowsheet Asif Nova DO Work Phone: [facility] Start: 02-09-2024 End: 02-11-2024 Bamboo flowsheet Asif Nova DO Work Phone: [facility] Start: 02-09-2024 End: 02-11-2024 External Result Encounter Kirsty Silverey PA Work Phone: [facility] External Department Unsolicited Start: 01-08-2024 End: 01-08-2024 Clinisync Result Encounter Asif Nova DO Work Phone: [facility] External Department Unsolicited Start: 01-08-2024 End: 01-08-2024 Clinisync Result Encounter Asif Nova DO Work Phone: [facility] External Department Unsolicited Start: 01-07-2024 End: 01-07-2024 flow sheet Asif Nova DO Work Phone: [facility] Comment on above: First trimester preg baldev; 12 weeks gestation of ; Nausea and vomiting during ; Dizziness; Constipation during in first trimester Start: 01-07-2024 End: 01-07-2024 ambulatory ASIF NOVA Not Available Start: 01-07-2024 End: 01-07-2024 Bamboo flowsheet Asif Nova DO Work Phone: [facility] Start: 01-07-2024 End: 01-07-2024 Bamboo flowsheet Asif Nova DO Work Phone: [facility] Start: 12-22-2023 End: 12-22-2023 Clinisync Result Encounter Asif Nova DO Work Phone: [facility] Unsolicited Start: 12-22-2023 End: 12-22-2023 Clinisync Result Encounter Asif Nova DO Work Phone: [facility] [...] OB Comment on above: GA: 8w4d Start: 08-06-2023 Patient encounter status Jennifer Marker DO Work Phone: [facility] Start: 03-26-2023 End: 03-26-2023 ambulatory Ben Rose Other [employer] Other Start: 03-26-2023 Patient encounter procedure Ben Rose [facility] Start: 01-24-2023 End: 01-24-2023 ambulatory Ben Rose Other [employer] Other Start: 01-24-2023 Telephone encounter Ben FORD [facility] Start: 07-25-2022 End: 07-26-[address] ASIF BHATT . Facility:[facility] Start: 07-02-2022 End: 07-03-[address] ASIF BHATT . Facility:[facility] Start: 06-12-2022 End: 06-13-[address] ASIF BHATT . Facility:[facility] Start: 06-04-2022 End: 06-04-[address] ASIF BHATT . Facility:[facility] Start: 05-26-2022 End: 05-26-2022 ambulatory NNAMDI CASTLE . Facility:[facility] Start: 05-02-2022 End: 05-03-[address] ASIF BHATT . Facility:[facility] Start: 04-19-2022 End: 04-20-2022 ambulatory KIRSTY SIU . Facility:[facility] Start: 04-04-2022 End: 04-05-[address] ASIF BHATT . Facility:[facility] Start: 04-04-2022 End: 04-05-2022 ambulatory ANGELES MIKAEL Facility:[facility] Start: 03-08-2022 End: 03-08-2022 ambulatory Ben Rose Other [employer] Other Start: 03-08-2022 Patient encounter procedure Ben FLORES [facility] Start: 03-07-2022 End: 03-08-[address] ASIF BHATT . Facility:[facility] Start: 03-05-2022 End: 03-06-2022 ambulatory ANGELES MIKAEL Facility:[facility] Start: 02-13-2022 End: 02-14-2022 ambulatory ANGELES MIKAEL Facility:[facility] Start: 02-12-2022 End: 02-12-2022 ambulatory ANGELES MIKAEL Facility:[facility] Start: 02-12-2022 End: 02-13-2022 ambulatory ANGELES MIKAEL Facility:[facility] Start: 11-12-2021 End: 11-20-2021 ambulatory ANGELES MIKAEL Facility:[facility] Start: 11-06-2021 End: 11-06-2021 ambulatory Angeles A Mikael [employer] JUDGE-C Facility:[facility] Start: 11-05-2021 End: 08-02-2022 ambulatory Angeles A Mikael [facility]ATION [facility] JUDGE-C Facility:[facility] Procedures Date Procedure Procedure Detail Performing Clinician Start: 07-14-2024 Urine culture Jennifer dunbar DO Work Phone: Start: 07-05-2024 Urnls dip stick/tabl et rgnt non-auto w/o micrscp Asif Nova DO Work Phone: Start: 06-29-2024 [facility] UA (CLEAN/CATCH) SPEECH AND LANGUAGE CLINICIAN/MICRO IF IND. Asif Nova DO Work Phone: Start: 06-21-2024 ALL MISCELLANEOUS TEST Kirsty RAHMAN Work Phone: Start: 06-07-2024 Urnls dip stick/tabl et rgnt non-auto w/o micrscp Asif Nova DO Work Phone: Start: 05-24-2024 Urnls dip stick/tabl et rgnt non-auto w/o micrscp Asif Nova DO Work Phone: Start: 05-11-2024 Urnls dip stick/tabl et rgnt non-auto w/o micrscp Kirsty RAHMAN Work Phone: Start: 04-27-2024 Urnls dip stick/tabl et rgnt non-auto w/o micrscp Asif Nova DO Work Phone: Start: 04-10-2024 ALL CBC WITH AUTO DIFF Kirsty RAHMAN Work Phone: Start: 04-05-2024 Urnls dip stick/tabl et rgnt non-auto w/o micrscp Asif Nova DO Work Phone: Start: 02-18-2024 AFP, SERUM, OPEN SPI NA BIFIDA Asif Nova DO Work Phone: Start: 02-09-2024 Urnls dip stick/tabl et rgnt non-auto w/o micrscp Asif Nova DO Work Phone: Start: 11-04-2024 RECURRENT VAGINITIS (HTRX) Kirsty RAHMAN Work Phone: Start: 01-08-2024 ALL CBC WITH AUTO DIFF Asif Nova DO Work Phone: Start: 01-07-2024 Urnls dip stick/tabl et rgnt non-auto w/o micrscp Asif Nova DO Work Phone: Start: 12-22-2023 ALL CBC WITH AUTO DIFF Asif Nova DO Work Phone: Start: 12-17-2023 Urnls dip stick/tabl et rgnt non-auto w/o micrscp Kirsty RAHMAN Work Phone: Start: 12-12-2023 Urnls dip stick/tabl et rgnt non-auto w/o micrscp Asif Nova DO Work Phone: Start: 03-05-2023 Cytp cerv/vag auto t hin layer prep mnl screen Asif Nova DO Work Phone: H/O: section S/P Asif Nova DO Work Phone: Plan of Treatment Date Care Activity Detail Author Start: 08-09-2024 End: 08-09-2024 ambulatory 08/09/2024 2:30 PM EDT Visit [facility] [address] [place] [address] Kirsty Siu PA [address] [place] [address] [facility] Start: 07-14-2024 Bacteria identified in Urine by Culture Urine Culture [facility] Start: 07-14-2024 Urine culture [facility] Start: 07-05-2024 End: 07-05-2024 Patient encounter procedure 07/05/2024 3:00 PM EDT Routine [facility] [address] [place] [address] sAif Bhatt, DO [address] [place] [address] [facility] Start: 06-21-2024 End: 06-21-2024 Patient encounter procedure 06/21/2024 1:50 PM EDT Routine [facility] [address] [place] [phone] Kirsty Siu PA [address] [place] [address] [facility] Start: 06-07-2024 End: 06-07-2024 Patient encounter procedure 06/07/2024 2:40 PM EST Routine [facility] [address] [place] [phone] Asif Bhatt, [address] [place] [address] [facility] Start: 05-24-2024 End: 05-24-2024 Patient encounter procedure 05/24/2024 2:40 PM EST Routine [facility] [address] [place] [phone] Asif Bhatt, [address] [place] [address] [facility] Start: 05-24-2024 End: 05-24-2024 Professional / ancillary services management 05/24/2024 2:00 PM EST Ancillary Procedure [facility] [address] [place] [phone] [facility] Start: 05-11-2024 End: 05-11-2025 US for US OB follow up transabdominal approach Imaging Routine size inconsistent with dates Expected: 05/11/2024, Expires: 05/11/2025 [facility] Work Phone: Comment on above: Expected: 05/11/2024 , Expires: 05/11/2025 Start: 05-11-2024 End: 05-11-2024 Patient encounter procedure 05/11/2024 1:00 PM EST Routine [facility] [address] [facility] [place] [phone] Asif Bhatt, DO [address] [place] [address] [facility] Start: 04-27-2024 End: 04-27-2024 Patient encounter procedure 04/27/2024 11:20 AM EST Routine [facility] [address] [facility] [place] [address] Asif Bhatt, DO [address] [place] [address] [facility] Start: 04-05-2024 End: 04-05-2025 CBC panel - Blood by Automated count CBC Lab Routine 25 weeks gestation of Second trimester Diabetes mellitus screening Expected: 04/05/2024 (Approximate), Expires: 04/05/2025 [facility] Work Phone: Comment on above: Expected: 04/05/2024 (Approximate), Expires: 04/05/2025 Start: 04-05-2024 End: 04-05-2025 Measurement of glucose 1 hour after glucose challenge for glucose tolerance test Glucose tolerance, 1 hour Lab Routine 25 weeks gestation of Second trimester Diabetes mellitus screening Expected: 04/05/2024 (Approximate), Expires: 04/05/2025 [facility] Comment on above: Expected: 04/05/2024 (Approximate), Expires: 04/05/2025 Start: 04-05-2024 End: 04-05-2024 Patient encounter procedure [facility] Comment on above: Arrived Start: 03-10-2024 End: 03-10-2024 Alpha fetoprotein, maternal Alpha fetoprotein, maternal Lab Routine MSAFP (maternal serum alpha-fetoprotein) decreased Expected: 03/10/2024 (Approximate), Expires: 03/10/2024 [facility] Comment on above: Expected: 03/10/2024 (Approximate), Expires: 03/10/2024 Start: 03-08-2024 End: 03-08-2024 Patient encounter procedure 03/08/2024 3:50 PM EST Routine [facility] [address] [facility] [place] [phone] Asif Bhatt DO [address] [place] [address] [facility] Start: 03-01-2024 End: 03-01-2024 Professional / ancillary services management 03/01/2024 1:30 PM EST Ancillary Procedure [facility] [address] [facility] [place] [place] [phone] [facility] Start: 02-09-2024 End: 02-09-2024 [...] EDT Office Visit [facility] [address] [place] [phone] Kirsty Siu PA [address] [place] [address] Arrived [facility] Comment on above: Arrived Start: 12-12-2023 End: 12-11-2024 ABO/Rh ABO/Rh Lab Routine Missed menses Expected: 12/12/2023 (Approximate), Expires: 12/11/2024 [facility] Comment on above: Expected: 12/12/2023 (Approximate), [...] menses Expected: 12/12/2023 (Approximate), Expires: 12/11/2024 [facility] Comment on above: Expected: 12/12/2023 (Approximate), Expires: 12/11/2024 Bacteria identified in Urine by Culture Urine culture Microbiology Routine Missed menses Ordered: 12/12/2023 [facility] Comment on above: Ordered: 12/12/2023 CBC W Auto Different ial panel - Blood CBC and differential Lab Routine Nausea and vomiting during Dizziness Ordered: 01/07/2024 [facility] Work Phone: Comment on above: Ordered: 01/07/2024 CBC W Auto Different ial panel - Blood CBC and differential Lab Routine Missed menses Ordered: 12/12/2023 [facility] Comment on above: Ordered: 12/12/2023 CHLAMYDIA TRACHOMATI S (GENITO/STI) CHLAMYDIA TRACHOMATIS (GENITO/STI) Lab Routine Exposure to STD Ordered: 02/09/2024 [facility] Comment on above: Ordered: 02/09/2024 Hemoglobin A1c/Hemoglobin.total in Blood Hemoglobin A1c Lab Routine Missed menses Ordered: 12/12/2023 [facility] Comment on above: Ordered: 12/12/2023 Hepatitis B virus surface Ag [Presence] in Serum or Plasma by Immunoassay Hepatitis B surface antigen Lab Routine Missed menses Ordered: 12/12/2023 [facility] Comment on above: Ordered: 12/12/2023 Hepatitis C virus Ab [Presence] in Serum or Plasma by Immunoassay Hepatitis C antibody Lab Routine Missed menses Ordered: 12/12/2023 [facility] Comment on above: Ordered: 12/12/2023 HIV-1/HIV-2 antigen/antibody combination immunoassay HIV-1 and HIV-2 antibodies Lab Routine Missed menses Ordered: 12/12/2023 [facility] Comment on above: Ordered: 12/12/2023 Neisseria gonorrhoea e DNA [Presence] in Unspecified specimen by ELINOR with probe detection Neisseria gonorrhea DNA probe, direct Lab Routine Exposure to STD Ordered: 02/09/2024 [facility] Comment on above: Ordered: 02/09/2024 Reagin Ab [Presence] in Serum by RPR RPR Lab Routine Missed menses Ordered: 12/12/2023 [facility] Comment on above: Ordered: 12/12/2023 Rubella antibody, IgG Rubella an tibody, IgG Lab Routine Missed menses Ordered: 12/12/2023 [facility] Comment on above: Ordered: 12/12/2023 SURESWAB(R) ADVANCED VAGINITIS PLUS, TMA SURESWAB(R) ADVANCED VAGINITIS PLUS, TMA Pathology and Cytology Routine Exposure to STD Ordered: 02/09/2024 [facility] Work Phone: Comment on above: Ordered: 02/09/2024 [facility] Immunizations Immunization Date Immunization Notes Care Provider Michael albright 11-08-2014 human papilloma viru s vaccine, quadrivalent [facility] Payers Date Payer Category Payer Blue Cross Blue Shield [id number] 2022 Unknown BCBS BCBS [id number] 2022-Present [phone] [address] [place] [address] [id number] 2022 Unknown [id number] 2021 Unknown [id number] 1996 Unknown [id number] 2.16.840.1.936887.3.579.2.718 1996 Unknown [id number] 2.16.840.1.798503.3.579.2.718 1996 Unknown [id number] 2.16.840.1.590932.3.579.2.593 1996 Unknown [id number] 2.16.840.1.985871.3.579.2.593 1996 Unknown [id number] 2.16.840.1.649340.3.579.2.593 1996 Unknown [id number] 2.16.840.1.959865.3.579.2.593 1996 Unknown [id number] 2.16.840.1.726478.3.579.2.593 1996 Unknown [id number] 2.16.840.1.069224.3.579.2.593 1996 Unknown [id number] 2.16.840.1.150801.3.579.2.593 1996 Unknown [id number] 2.16.840.1.757561.3.579.2.593 1996 Unknown [id number] 2.16.840.1.465007.3.579.2.593 1996 Unknown [id number] 2.16.840.1.877374.3.579.2.593 1996 Unknown [id number] 2.16.840.1.595529.3.579.2.593 1996 Unknown [id number] 2.16.840.1.294472.3.579.2.593 1996 Unknown [id number] 2.16.840.1.424585.3.579.2.593 1996 Unknown [id number] 2.16.840.1.589686.3.579.2.593 1996 Unknown [id number] 2.16.840.1.784853.3.579.2.593 1996 Unknown [id number] 2.16.840.1.243243.3.579.2.125 9 1996 Unknown [id number] 2.16.840.1.895724.3.579.2.125 9 1996 Unknown [id number] 2.16.840.1.477693.3.579.2.125 9 1996 Unknown [id number] 2.16.840.1.093591.3.579.2.125 9 1996 Unknown [id number] 2.16.840.1.367134.3.579.2.125 9 1996 Unknown [id number] 2.16.840.1.329504.3.579.2.125 9 1996 Unknown [id number] 2.16.840.1.798005.3.579.2.125 9 1996 Unknown [id number] 2.16.840.1.305306.3.579.2.125 9 1996 Unknown [id number] 2.16.840.1.427935.3.579.2.125 1996 Unknown [id number] 2.16.840.1.792439.3.579.2.125 1996 Unknown [id number] 2.16.840.1.223164.3.579.2.125 1996 Unknown [id number] 2.16.840.1.479280.3.579.2.125 1996 Unknown [id number] 2.16.840.1.388472.3.579.2.125 1996 Unknown [id number] 2.16.840.1.020927.3.579.2.125 1959 Self-pay 1959 Unknown [id number] 2.16.840.1.821330. 1959 Unknown [id number] 2.16.840.1.958595. 1959 Unknown [id number] 1959 Unknown [id number] Unknown [id number] 2.16.840.1.229837.3.579.2.593 Unknown [employer] [id number] Unknown [id number] 2.16.840.1.148211.3.579.2.531 Social History Date Type Detail Facility Unknown if ever smoked [employer] Other Start: 03-27-2023 End: 12-12-2023 Sex Assigned At [employer] Other Start: 02-22-2021 End: 09-17-2022 Tobacco smoking status WAIS Never smoked tobacco [facility] Start: 09-17-2022 Tobacco use and exposure Smokeless tobacco non-user [facility] Start: 12-17-2023 End: 07-05-2024 Alcoholic beverage intake Lifetime non-drinker (finding) [facility] Start: 03-27-2023 End: 12-12-2023 History of Social function [facility] Start: 10-27-2023 [facility] Start: 1995 Sex assigned at Not on file [facility] Start: 07-15-2024 End: 09-08-2024 Sex Female (finding) [facility] Start: 1995 Sex Assigned At Female [facility] NEGATED: Highlighted row N [facility] Clinical Notes 03-08-2022 to 09-08-2024 Note Date & Type Note Facility 09-08-2024 Evaluation note Diagnosis Onset Date Resolution Chronic GERD acute September 08 2:10pm Anxiety acute November 17, 2 025 9:26am Easy bruising acute November 9:26am Hair thinning acute November 9:26am [facility] Work Phone: [phone] History of Present illness Narrative* Peri Peterson NP - 07/05/2024 3:00 PM EDT Reason for Appointment: Patient ID: Will Shay [...] infection 09/13/2022 Adjustment disorder with depressed mood ([facility]) 09/13/2022 Allergic rhinitis 09/13/2022 Anxiety 09/13/2022 Arthralgia of multiple joints 09/13/2022 Dysmenorrhea 09/13/2022 Family history of thyroid disease 09/13/2022 Hematochezia 09/13/2022 Low back pain 09/13/2022 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 Exam conducted with a nursing home aide present. Vitals: Estimated body mass index is [...] by Peri Peterson NP on behalf of: Asif Bhatt DO documented in this encounterSaint [facility]'s [facility] [id number] History of Present illness Narrative* Vicky Leyva LPN - 06/07/2024 2:40 PM EST Reason for Appointment: Patient ID: Will Shay [...] infection 09/13/2022 Adjustment disorder with depressed mood ([facility]) 09/13/2022 Allergic rhinitis 09/13/2022 Anxiety 09/13/2022 Arthralgia of multiple joints 09/13/2022 Dysmenorrhea 09/13/2022 Family history of thyroid disease 09/13/2022 Hematochezia 09/13/2022 Low back pain 09/13/2022 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[facility]) 09/13/2022 Subcutaneous nodule 09/13/2022 Tinea pedis 09/13/2022 25 weeks gestation of 04/05/2024 Second trimester 04/05/2024 Resolved Ambulatory Problems Diagnosis Date Noted No Resolved Ambulatory Problems Past Medical History: Diagnosis Date Depression ([facility]) HISTORY PAST MEDICAL HISTORY SOCIAL HISTORY Past Medical History: Diagnosis Date Anxiety Depression ([facility]) Social History Tobacco Use Smoking status: [...] nursing note reviewed. Exam conducted with a nursing home aide present. Vitals: Estimated body mass index is [...] by Vicky Leyva LPN on behalf of: Asif Bhatt DO documented in this encounterSaint Luke's [facility] Hospital[facility] [id number] History of Present illness Narrative* Vicky Leyva LPN - 05/24/2024 2:40 PM EST Reason for Appointment: Patient ID: Will Shay [...] infection 09/13/2022 Adjustment disorder with depressed mood ([facility]) 09/13/2022 Allergic rhinitis 09/13/2022 Anxiety 09/13/2022 Arthralgia of multiple joints 09/13/2022 Dysmenorrhea 09/13/2022 Family history of thyroid disease 09/13/2022 Hematochezia 09/13/2022 Low back pain 09/13/2022 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[facility]) 09/13/2022 Subcutaneous nodule 09/13/2022 Tinea pedis 09/13/2022 25 weeks gestation of 04/05/2024 Second trimester 04/05/2024 Resolved Ambulatory Problems Diagnosis Date Noted No Resolved Ambulatory Problems Past Medical History: Diagnosis Date Depression (CMS/HCC) HISTORY PAST MEDICAL HISTORY SOCIAL HISTORY Past Medical History: Diagnosis Date Anxiety Depression ([facility]) Social History Tobacco Use Smoking status: [...] by Vicky Leyva LPN on behalf of: Asif Bhatt DO documented in this encounterSaint Luke's North Hospital[facility] [id number] History of Present illness Narrative* JOSIAH Schilling - 05/11/2024 1:00 PM EST Reason for Appointment: Patient ID: Will Shay [...] 09/13/2022 Low back pain 09/13/2022 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[facility]) 09/13/2022 Subcutaneous nodule 09/13/2022 Tinea pedis 09/13/2022 25 weeks gestation of 04/05/2024 Second trimester 04/05/2024 Resolved Ambulatory Problems Diagnosis Date Noted No Resolved Ambulatory Problems Past Medical History: Diagnosis Date Depression ([facility]) HISTORY PAST MEDICAL HISTORY SOCIAL HISTORY Past Medical History: Diagnosis Date Anxiety Depression ([facility]) Social History Tobacco Use Smoking status: Never [...] behalf of: JOSIAH Schilling documented in this encounterSaint Luke's North Hospital[facility] [id number] History of Present illness Narrative* Carmen Foster, QUARRY WORKER - 04/27/2024 11:20 AM EST Reason for Appointment: Patient ID: Will Shay [...] nursing note reviewed. Exam conducted with a nursing home aide present. Vitals: Estimated body mass index is [...] by Carmen Foster LPN on behalf of: Asif Bhatt DO documented in this encounterSaint Luke's North Hospital–[facility] [id number] Telephone encounter Note* Telephone Encounter - Alana Mcclendon LPN - 04/15/2024 4:43 PM EST Madhuri, my name is Will Shay. My birthday is 1995 and I was just calling because I am on Wellbutrin 150mg in the morning and 150mg at night and is not doing anything. I have been on itfor a while now. I was trying to give it a chance, but I was also on Wellbutrin and then Celexa andthe Celexa was like making me more anxious, I guess, but I had good luck with Celexa in my last preg baldev, so I do not know if I should try that again or like how do I go off the well view trying to go on to something else? That makes me kind of nervous. But yeah, I do not know what my options are,but yeah, my anxiety is just out of control. So even with the Wellbutrin at 300, so I did not know if there was any other options or if maybe I should try Celexa again I do not know, but my phone numbers [phone], thank you, bye. I called pt to let her know that I would talk to Dr. hBatt and see what he recommends. PVU [facility] [id number] Miscellaneous Notes* Telephone Encounter - Alana Mcclendon LPN - 04/15/2024 4:43 PM EST Madhuri, my name is Will Shay. My birthday is 1995 and I was just calling because I am on Wellbutrin 150mg in the morning and 150mg at night and is not doing anything. I have been on itfor a while now. I was trying to give it a chance, but I was also on Wellbutrin and then Celexa andthe Celexa was like making me more anxious, I guess, but I had good luck with Celexa in my last preg baldev, so I do not know if I should try that again or like how do I go off the well view trying to go on to something else? That makes me kind of nervous. But yeah, I do not know what my options are,but yeah, my anxiety is just out of control. So even with the Wellbutrin at 300, so I did not know if there was any other options or if maybe I should try Celexa again I do not know, but my phone numbers [phone], thank you, aurelio. I called pt to let her know that I would talk to Dr. Bhatt and see what he recommends. 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[facility]) 09/13/2022 Subcutaneous nodule 09/13/2022 Tinea pedis 09/13/2022 Resolved Ambulatory Problems Diagnosis Date Noted No Resolved Ambulatory Problems Past Medical History: Diagnosis Date Depression ([facility]) HISTORY PAST MEDICAL HISTORY SOCIAL HISTORY Past Medical History: Diagnosis Date Anxiety Depression ([facility]) Social History Tobacco Use Smoking status: [...] if so to how much. Patient does notdesire to have increase at this time, but would like to know her options if needed. Documented by Vicky Leyva LPN on behalf of: JOSIAH Schilling documented in this encounterSaint Luke's North Hospital–[facility] [id number] History of Present illness Narrative* Vicky Leyva LPN - 03/08/2024 3:50 PM EST Reason for Appointment: Patient ID: Will Shay [...] infection 09/13/2022 Adjustment disorder with depressed mood ([facility]) 09/13/2022 Allergic rhinitis 09/13/2022 Anxiety 09/13/2022 Arthralgia of multiple joints 09/13/2022 Dysmenorrhea 09/13/2022 Family history of thyroid disease 09/13/2022 Hematochezia 09/13/2022 Low back pain 09/13/2022 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[facility]) 09/13/2022 Subcutaneous nodule 09/13/2022 Tinea pedis 09/13/2022 Resolved Ambulatory Problems Diagnosis Date Noted No Resolved Ambulatory Problems Past Medical History: Diagnosis Date Depression ([facility]) HISTORY PAST MEDICAL HISTORY SOCIAL HISTORY Past Medical History: Diagnosis Date Anxiety Depression ([facility]) Social History Tobacco Use Smoking status: [...] nursing note reviewed. Exam conducted with a nursing home aide present. Vitals: Estimated body mass index is [...] by Vicky Leyva LPN on behalf of: Asif Bhatt DO documented in this encounterSaint Luke's North Hospital[facility] [id number] History of Present illness Narrative* Leah Raman MA - 02/09/2024 3:10 PM EST Reason for Appointment: Patient ID: Will Shay [...] infection 09/13/2022 Adjustment disorder with depressed mood ([facility]) 09/13/2022 Allergic rhinitis 09/13/2022 Anxiety 09/13/2022 Arthralgia of multiple joints 09/13/2022 Dysmenorrhea 09/13/2022 Family history of thyroid disease 09/13/2022 Hematochezia 09/13/2022 Low back pain 09/13/2022 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 Exam conducted with a nursing home aide present. Vitals: Estimated body mass index is [...] behalf of: Kirsty Rico documented in this encounterSaint Luke's North Hospital–[facility] [id number] History of Present illness Narrative* Carmen Foster, QUARRY WORKER - 01/07/2024 3:10 PM EDT Reason for Appointment: Patient ID: Will Shay [...] infection 09/13/2022 Adjustment disorder with depressed mood ([facility]) 09/13/2022 Allergic rhinitis 09/13/2022 Anxiety 09/13/2022 Arthralgia of multiple joints 09/13/2022 Dysmenorrhea 09/13/2022 Family history of thyroid disease 09/13/2022 Hematochezia 09/13/2022 Low back pain 09/13/2022 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 Exam conducted with a nursing home aide present. Vitals: Estimated body mass index is [...] or undercooked meat, and [facility] Patient hasbeen consulted regarding any further do's and don'ts of . Patient voiced understanding andall questions and concerns were answered. Orders Placed This Encounter Procedures Urine dip Follow Up: Patient is to return in 4 weeks for routine OB appointment. Documented by Carmen Foster LPN on behalf of: Kirsty Siu PA-C documented in this encounterSaint Luke's North Hospital[facility] [id number] History of Present illness Narrative* JOSIAH Schilling - 12/17/2023 11:00 AM EDT Reason for Appointment: Patient ID: Will Shay [...] Past Medical History: Diagnosis Date Anxiety Depression ([facility]) Social History Tobacco Use Smoking status: Never [...] behalf of: JOSIAH Schilling documented in this encounterSaint Luke's North Hospital[facility] [id number] History of Present illness Narrative* Leah Raman MA - 12/12/2023 9:00 AM EDT Reason for Appointment: Patient ID: Will Shay [...] medela double breast pump, ondansetron odt, promethazine, andprotonix. 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 Advised to have both and unity [...] by: Leah Raman MA documented in this encounterSaint Luke's North Hospital[facility] [id number] Evaluation note* Encounter Date Diagnosis Assessment Notes Treatment Notes Treatment Clinical Notes Mar, GERD (gastroesophageal reflux disease) (ICD-10 - K21.9) Patient reports that she is doing well on pantoprazole 40 mg daily and will continue therapy Mar, Constipation (ICD-10 - K59.00) Patient reports that she has intermittent constipation Patient reports that she is Patient is advised to take an OTC fiber and will call office if she has no improvement [employer] Other 10-20-2023 Evaluation note* Encounter Date Diagnosis Assessment Notes Treatment Notes Treatment Clinical Notes Jan, Epigastric burning sensation (ICD-10 - R10.13) [employer] Other 12-02-2022 Evaluation note* Encounter Date Diagnosis Assessment Notes Treatment Notes Treatment Clinical Notes Mar, Nausea (ICD-10 - R11.0) Mar, Epigastric burning sensation (ICD-10 - R10.13) Mar, Lower abdominal pain (ICD-10 - R10.30) Mar, Bloating (ICD-10 - R14.0) Mar, Functional dyspepsia (ICD-10 - K30) Mar, GERD (gastroesophageal reflux disease) (ICD-10 - K21.9) CONTINUE PANTOPRAZOLE 40 MG DAILY CONTINUE LEVSIN NEEDED RTO 1 YR [employer] Other Evaluation note* Diagnosis First trimester state, [...] unspecified documented in this encounter [facility] HealthcareEvaluation noteNo assessment information availableJoint Township District [facility] Work Phone: Evaluation note* Diagnosis Onset Date Resolution Status Admit Date Chronic GERD acute September 08 2:10pm [facility] Work Phone: Hisabis general Narrative - Reported* Type Description Date Medical History scoliosis Medical History hx of mono Surgical History Banks teeth x4 [facility] [employer] Other History general Narrative - Reported* Type Description Date Medical History scoliosis Medical History hx of mono Surgical History Banks teeth x4 Surgical History C section [facility] [employer] Other Reason for referral (narrative)No reason for referral information availablePremier Health Work Phone: Summary Purpose Family History Relationship Condition Age at Onset Recorded Date/T darrius grandparent Malignant neoplasm of breast Unknown mother Colitis Unknown Advance Directives Advance Directive Response Recorded Date/ Time Advance Directives No February 11:33am Chief Complaint and Reason for Visit Chief Complaint Admit Date 6 month follow up September 08, 2024 2:10p m hairloss, loss of appetite November 17, 2024 9:26am Reason for Visit Admit Date Chronic GERD September 08, 2024 2:10p m Anxiety November 17, 2024 9: 26am Easy bruising November 17, 2024 9: 26am Hair thinning November 17, 2024 9: 26am Chief Complaint Admit Date Unknown July 14, 2024 3:58 am Amb Documentation July 14, 2024 10:5 2am 6 month follow up September 08, 2024 2:10p m Reason for Visit Admit Date Chronic GERD September 08, 2024 2:10p m Additional Source Comments REASON FOR VISIT (unrecogniz ed section and content) Reason Comments Routine Visit Reason Comments Amenorrhea Reason Comments s/p c- section INFORMATION SOURCE (unrecogn ized section and content) DATE CREATED AUTHOR 07/24/2022 [facility] DATE CREATED AUTHOR AUTHOR'S ORGANIZ ATION 08/08/2022 [facility] DATE CREATED AUTHOR AUTHOR'S ORGANIZ ATION 07/06/2024 [facility] EPIC DATE CREATED AUTHOR AUTHOR'S ORGANIZ ATION 08/05/2024 [facility] Care Teams (unrecognized sec tion and content) Team Status: Active Member Role Status Dates Britt Harris APRN CONCILIATION [employer] JUDGE-C Primary Care Provider Active Start: June 21, 2024 Kirsty Siu PA-C Attending Provider Active Start : June 21, 2024 Team Status: Active Member Role Status Dates Britt Harris APRN CONCILIATION [employer] JUDGE-C Primary Care Provider Active Start: June 29, 2024 Asif Bhatt DO Attending Provider Active Start : June 29, 2024 Team Status: Active Member Role Status Dates Britt Harris APRN CONCILIATION [employer] JUDGE-C Primary Care Provider Active Start: June 30, 2024 Asif Bhatt , Attending Provider Active Start : June 30, 2024 Team Status: Active Member Role Status Dates Britt Harris APRN CONCILIATION [employer] JUDGE-C Primary Care Provider Active Start: July 01, 2024 Asif Bhatt DO Attending Provider Active Start : July 01, 2024 Team Status: Active Member Role Status Dates Britt Harris APRN CONCILIATION [employer] JUDGE-C Primary Care Provider Active Start: July 14, 2024 Jennifer Moe DO Attending Provider Active Start: July 14, 2024 Team Status: Inactive Member Role Status Dates Jennifer Moe DO Attending Provider Active Start: July 14, 2024 End: July 14, 2024 Team Status: Active Member Role Status Dates Britt Harris APRN CONCILIATION [employer] JUDGE-C Primary Care Provider Active Start: July 14, 2024 Jeannette Domingo CMA Attending Provider Active Start: July 14, 2024 Team Status: Active Member Role Status Dates Britt Harris APRN CONCILIATION [employer] JUDGE-C Primary Care Provider Active Team Status: Inactive Member Role Status Dates Britt Harris APRN CONCILIATION [employer] JUDGE-C Primary Care Provider Active Start: September 08, 2024 End: September 08, 2024 Ben Rose MD Attending Provider Active S tart: September 08, 2024 End: September 08, 2024 Team Status: Inactive Member Role Status Dates Britt Harris APRN [employer] JUDGE-C Primary Care Provider Active Start: November 17, 2024 End: November 17, 2024 FRANNIE Jung Attending Provider Act ramsey Start: November 17, 2024 End: November 17, 2024 Goals (unrecognized section and content) Goals may be documented in a n alternate section FOR RECORDS PERTAINING TO PATIENTS WHO [...] BE BASED ON THE PRIMARY CLINICAL RECORDS. [facility] [employer] [facility]. provides no warranty or guarantee of the accuracy or completeness of information in this document.
[2024-11-19 10:56] LABS: TSH W/ REFLEX FT4 1.283 uIU/mL (0.358-3.740)
[2024-11-19 11:15] LABS: Iron 68.0 ug/dL (50.0-170.0); Percent Iron Saturation 17.2 %; Total Iron Binding Capacity 395.0 ug/dL (250.0-450.0)
== END 2024-11-19 10:00 | disposition home or self-care (01) ==
PROVIDERS: PCP Nurse Practitioner Family; Visit Provider Nurse Practitioner Family
DX: R23.3 Spontaneous ecchymoses (principal); L65.9 Nonscarring hair loss, unspecified
CPT/HCPCS: 36415; 83540; 83550; 84443

== ENCOUNTER 2024-12-17 09:45 | Outpatient (OUT) | payer BC, SELFPAY ==
--- OUTSIDE RECORDS SUMMARY | 2024-12-17 09:58 | XMS_ITS | CCD ---
Author Organization [facility] Providers Care Core Stacker Name Role Phone Ben Rose Unavailable Mikael ADULT CARE MANAGER-C, Angeles A Admitting Unavailable Mikael ADULT CARE MANAGER-C, Angeles A Attending Unavailable Mikael ADULT CARE MANAGER-C, Angeles A Primary Care Unavailable Mikael ADULT CARE MANAGER-C, Angeles A Attending Unavailable Mikael ADULT CARE MANAGER-C, Angeles A Primary Care Unavailable NOVA [...] Unavailable NOVA ., DR MORGAN Attending Unavailable [place], DR EDITH Corey Consulting Unavailable NOVA ., DR MORGAN Admitting Unavailable NOVA ., DR MORGAN Consulting Unavailable NOVA ., DR MORGAN Consulting Unavailable NOVA ., DR MORGAN Admitting Unavailable REQUEST, DR NONE LISTED Primary Care Unavaila ble NOVA ., DR MORGAN Attending Unavailable MIKAEL, ANGELES Primary Care Unavailable NOVA ., DR MORGAN Attending Unavailable [place], DR EDITH Corey Consulting Unavailable NOVA ., [...] Unavailable Marker , Jennifer Wilcox Attending Provider MarkerJennifer Attending Unavailable Marker, Jennifer Wilcox Admitting Unavailable Britt Harris APRN Primary Care Provider Ben Rose MD Attending Provider Britt Harris APRN Attending Provider Allergies Allergy Classification Reported Allergen(s) Allergy Type Date of Onset Reaction(s) Facility (3 sources) Penicillin G Drug Allergy Unknown timeplazza Other (1 source) busPIRone; Translations: [buspirone hcl] Drug Allergy [facility] Repository (1 source) Coconut extract; Translations: [coconut] Drug Allergy [facility] Repository (20 sources) Penicillins; Translations: [penicillins] Propensity to adverse reactions to drug (disorder) 3 Rash [facility] Repository (1 source) Amoxicillin Drug Allergy [facility] Repository (1 source) Penicillin Drug Allergy [facility] Repository (20 sources) busPIRone Drug Allergy 3 [...] 7 days. 14 capsule 12/12/2023 12/19/2023 Active Hldphf92-Kkhb Fum-Folic Ac-Om3 (One Daily ) 28-800-440 mg-mcg-mg combo pack (2 sources) Start: 01-30-2024 Vjfnod92-Syke Fum-Folic Ac-Om3 (One Daily ) 28-800-440 mg-mcg-mg combo pack Active PKG PO January 30, 2024 12:00am 75-Iron Jqt-Znjwe-Rv0 (One Daily ) 28-800-440 mg-mcg-mg combo pack (1 source) Start: 01-30-2024 75-Iron Zcs-Ckffh-Kv5 (One Daily ) 28-800-440 mg-mcg-mg combo pack [...] Basophils (Bld) [#/Vol] Automated basophil count 0.0-0.1 [facility] Basophils/100 WBC Auto (Bld) on 07-14-2024 Basophils/100 WBC (Bld) Automated basophil % 0.2-2.0 [facility] Eosinophils/100 WBC Auto (Bl d)on 07-14-2024 Eosinophils/100 WBC (Bld) Automated eosinophil % 0.9-7.0 [facility] Erythrocyte distribution wid th Auto (RBC) [Ratio]on 07-14-2024 Erythrocyte distribution width (RBC) [Ratio] Erythrocyte distribution width [Ratio] by Automated count High 11.0-15.0 [facility] Estimated glomerular filtrat ion rate (GFR) non- Americanon 07-14-2024 GFR/1.73 sq M.predicted among non-blacks MDRD (S/P/Bld) [Vol rate/Area] Estimated glomerular filtration rate (GFR) non- >=60 mL/min/1.73m 2 [facility] Fibrin D-dimer [Presence] in Platelet poor plasma by Latex agglutinationon 07-14-2024 Fibrin D-dimer LA Ql (PPP) Fibrin D-dimer [Presence] in Platelet poor plasma by Latex agglutination Critically high <=0.59 [facility] Comment on above: RESULTS CALLED TO DAVI [...] [Mass/Vol] Serum globulin measurement by calculation (mass/volume) [facility] Hematocrit Auto (Bld) [Volum e fraction]on 07-14-2024 Hematocrit (Bld) [Volume fraction] Hematocrit [Volume Fraction] of Blood by Automated count Low 36.0-48.0 [facility] Hemoglobin [Mass/volume] in Bloodon 07-14-2024 Hemoglobin (Bld) [Mass/Vol] Hemoglobin [Mass/volume] in Blood Low 12.0-16.0 [facility] Laboratory - Chemistry and C hemistry - challengeon 07-14-2024 Albumin [Mass/Vol] 2.9 g/dL Low 3.4-5.0 [facility] ALP [Catalytic activity/Vol] 69 U/L 46-116 [facility] ALT [Catalytic activity/Vol] 16 U/L 14-59 [facility] AST [Catalytic activity/Vol] 14 U/L Low 15-37 [facility] Bilirubin [Mass/Vol] 0.5 mg/dL 0.2-1.0 [facility] Calcium [Mass/Vol] 8.4 mg/dL Low 8.5-10.1 [facility] Chloride [Moles/Vol] 105 mmol/L 98-107 [facility] CO2 [Moles/Vol] 26.8 mmol/L 21.0-32.0 [facility] Creatinine [Mass/Vol] 0.56 mg/dL 0.55-1.02 [facility] GFR/1.73 sq M.predicted MDRD (S/P/Bld) [Vol rate/Area] mL/min/{1.73_m2} >=60 mL/min/1.73m 2 [facility] Glucose [Mass/Vol] 98 mg/dL 74-106 [facility] Lactate [Moles/Vol] 0.9 mmol/L 0.4-2.0 [facility] Potassium [Moles/Vol] 3.9 mmol/L 3.5-5.1 [facility] Protein [Mass/Vol] 6.2 g/dL Low 6.4-8.2 [facility] Sodium [Moles/Vol] 140 mmol/L 136-145 [facility] Urea nitrogen [Mass/Vol] 9.0 mg/dL 7.0-18.0 [facility] Urea nitrogen/Creatinine [Mass ratio] 16.1 mg/mg [facility] Laboratory - Hematology and Cell countson 07-14-2024 Immature granulocytes/100 WBC (Bld) 0.3 % 0.0-0.5 [facility] Leukocytes [#/volume] correc ailyn for nucleated erythrocytes in Blood by Automated counon 07-14-2024 WBC corrected for nucl RBC Auto (Bld) [#/Vol] Leukocytes [#/volume] corrected for nucleated erythrocytes in Blood by Automated coun 4.0-11.0 [facility] Lymphocytes Auto (Bld) [#/Vo l]on 07-14-2024 Lymphocytes (Bld) [#/Vol] Lymphocytes [#/volume] in Blood by Automated count 1.2-3.8 [facility] Lymphocytes/100 WBC Auto (Bl d)on 07-14-2024 Lymphocytes/100 WBC (Bld) Lymphocytes/100 leukocytes in Blood by Automated count 20.5-60.0 [facility] MCH Auto (RBC) [Entitic mass ]on 07-14-2024 MCH (RBC) [Entitic mass] MCH [Entitic mass] by Automated count Low 26.7-34.0 [facility] MCHC Auto (RBC) [Mass/Vol]on 07-14-2024 MCHC (RBC) [Mass/Vol] MCHC [Mass/volume] by Automated count 29.9-35.2 [facility] MCV Auto (RBC) [Entitic vol] on 07-14-2024 MCV (RBC) [Entitic vol] MCV [Entitic volume] by Automated count Low 81.0-99.0 [facility] Monocytes Auto (Bld) [#/Vol] on 07-14-2024 Monocytes (Bld) [#/Vol] Automated blood monocyte count 0.3-0.8 [facility] Monocytes/100 WBC Auto (Bld) on 07-14-2024 Monocytes/100 WBC (Bld) Automated monocyte % 1.7-12.0 [facility] Neutrophils Auto (Bld) [#/Vo l]on 07-14-2024 Neutrophils (Bld) [#/Vol] Neutrophils [#/volume] in Blood by Automated count 1.4-6.5 [facility] Neutrophils/100 WBC Auto (Bl d)on 07-14-2024 Neutrophils/100 WBC (Bld) Automated neutrophil % 43.0-75.0 [facility] No Panel Informationon 07-14 Eosinophils # (Auto) 0.1 10 3/uL 0.0-0.7 [facility] Immature Granulocyte # (Auto) 0.02 10 3/uL 0.00-0.03 [facility] Troponin I High Sensitivity <4.0 pg/mL Low 4.0-51.3 [facility] Comment on above: CUT-OFF POINTS HAVE BEEN [...] volume] in Blood by Automated count 9.5-13.5 [facility] Platelets Auto (Bld) [#/Vol] on 07-14-2024 Platelets (Bld) [#/Vol] Platelets [#/volume] in Blood by Automated count 150-450 [facility] RBC Auto (Bld) [#/Vol]on RBC (Bld) [#/Vol] Erythrocytes [#/volu me] in Blood by Automated count 4.20-5.40 [facility] Serum or plasma albumin/glob ulin mass ratioon 07-14-2024 Albumin/Globulin [Mass ratio] Serum or plasma albumin/globulin mass ratio [facility] Serum or plasma anion gap de terminationon 07-14-2024 Anion gap [Moles/Vol] Serum or plasma anion gap determination [facility] Urine Cultureon 07-14-2024 Bacteria identified Cx Nom (U) 25,000 colonies/ml mixed bacterial skin contaminants 2 Days PERFORMED BY: [place] [id number] PATHOLOGIST UNIFORM CAP OPERATOR STEVE RICK M.D. Normal [facility] Comment on above: Performed By: #### C UU #### [address] Urine cultureOrdered By: Myriam jenn Marker on 07-14-2024 Bacteria identified Cx Nom (U) Urine culture [facility] Urinalysis macro (dipstick) panel (U)on 07-05-2024 Bilirubin, UA Negative Negative - 4(70) +++ mg/dL [facility] Blood, UA Positive Negative - 50 Daniel/mcL [facility] Clarity, UA Clear [facility] Color, UA Yellow [facility] Glucose, UA Negative Negative - 1999(110) ++++ mg/dL [facility] Interpretation and review of laboratory results Abnormal [facility] Ketones, UA Negative Negative - 160(16) ++++ mg/dL [facility] Leukocytes, UA Negative Negative - 500+++ Gavin/mcL [facility] Nitrite, UA Negative Negative - Positive [facility] pH, UA 7 5 - 9 [facility] Protein, UA Negative Negative - 1999(20) ++++ mg/dL [facility] Spec Grav, UA 1.015 1 - 1.03 [facility] Urobilinogen, UA 0.2 0.2 - 12 mg/dL [facility] Basophils Auto (Bld) [#/Vol] on 07-01-2024 Basophils (Bld) [#/Vol] Automated basophil count 0.0-0.1 [facility] Basophils/100 WBC Auto (Bld) on 07-01-2024 Basophils/100 WBC (Bld) Automated basophil % 0.2-2.0 [facility] Eosinophils/100 WBC Auto (Bl d)on 07-01-2024 Eosinophils/100 WBC (Bld) Automated eosinophil % Low 0.9-7.0 [facility] Erythrocyte distribution wid th Auto (RBC) [Ratio]on 07-01-2024 Erythrocyte distribution width (RBC) [Ratio] Erythrocyte distribution width [Ratio] by Automated count 11.0-15.0 [facility] Hematocrit Auto (Bld) [Volum e fraction]on 07-01-2024 Hematocrit (Bld) [Volume fraction] Hematocrit [Volume Fraction] of Blood by Automated count Low 36.0-48.0 [facility] Hemoglobin [Mass/volume] in Bloodon 07-01-2024 Hemoglobin (Bld) [Mass/Vol] Hemoglobin [Mass/volume] in Blood Low 12.0-16.0 [facility] Laboratory - Hematology and Cell countson 07-01-2024 Immature granulocytes/100 WBC (Bld) 0.4 % 0.0-0.5 [facility] Leukocytes [#/volume] correc ailyn for nucleated erythrocytes in Blood by Automated counon 07-01-2024 WBC corrected for nucl RBC Auto (Bld) [#/Vol] Leukocytes [#/volume] corrected for nucleated erythrocytes in Blood by Automated coun 4.0-11.0 [facility] Lymphocytes Auto (Bld) [#/Vo l]on 07-01-2024 Lymphocytes (Bld) [#/Vol] Lymphocytes [#/volume] in Blood by Automated count 1.2-3.8 [facility] Lymphocytes/100 WBC Auto (Bl d)on 07-01-2024 Lymphocytes/100 WBC (Bld) Lymphocytes/100 leukocytes in Blood by Automated count 20.5-60.0 [facility] MCH Auto (RBC) [Entitic mass ]on 07-01-2024 MCH (RBC) [Entitic mass] MCH [Entitic mass] by Automated count Low 26.7-34.0 [facility] MCHC Auto (RBC) [Mass/Vol]on 07-01-2024 MCHC (RBC) [Mass/Vol] MCHC [Mass/volume] by Automated count 29.9-35.2 [facility] MCV Auto (RBC) [Entitic vol] on 07-01-2024 MCV (RBC) [Entitic vol] MCV [Entitic volume] by Automated count Low 81.0-99.0 [facility] Monocytes Auto (Bld) [#/Vol] on 07-01-2024 Monocytes (Bld) [#/Vol] Automated blood monocyte count 0.3-0.8 [facility] Monocytes/100 WBC Auto (Bld) on 07-01-2024 Monocytes/100 WBC (Bld) Automated monocyte % 1.7-12.0 [facility] Neutrophils Auto (Bld) [#/Vo l]on 07-01-2024 Neutrophils (Bld) [#/Vol] Neutrophils [#/volume] in Blood by Automated count 1.4-6.5 [facility] Neutrophils/100 WBC Auto (Bl d)on 07-01-2024 Neutrophils/100 WBC (Bld) Automated neutrophil % 43.0-75.0 [facility] No Panel Informationon 07-01 Eosinophils # (Auto) 0.1 10 3/uL 0.0-0.7 [facility] Immature Granulocyte # (Auto) 0.04 10 3/uL High 0.00-0.03 [facility] Platelet mean volume Auto (B ld) [Entitic vol]on 07-01-2024 Platelet mean volume (Bld) [Entitic vol] Platelet mean volume [Entitic volume] in Blood by Automated count 9.5-13.5 [facility] Platelets Auto (Bld) [#/Vol] on 07-01-2024 Platelets (Bld) [#/Vol] Platelets [#/volume] in Blood by Automated count 150-450 [facility] RBC Auto (Bld) [#/Vol]on RBC (Bld) [#/Vol] Erythrocytes [#/volu me] in Blood by Automated count Low 4.20-5.40 [facility] Basophils Auto (Bld) [#/Vol] on 06-30-2024 Basophils (Bld) [#/Vol] Automated basophil count 0.0-0.1 [facility] Basophils/100 WBC Auto (Bld) on 06-30-2024 Basophils/100 WBC (Bld) Automated basophil % 0.2-2.0 [facility] Eosinophils/100 WBC Auto (Bl d)on 06-30-2024 Eosinophils/100 WBC (Bld) Automated eosinophil % Low 0.9-7.0 [facility] Erythrocyte distribution wid th Auto (RBC) [Ratio]on 06-30-2024 Erythrocyte distribution width (RBC) [Ratio] Erythrocyte distribution width [Ratio] by Automated count 11.0-15.0 [facility] Hematocrit Auto (Bld) [Volum e fraction]on 06-30-2024 Hematocrit (Bld) [Volume fraction] Hematocrit [Volume Fraction] of Blood by Automated count Low 36.0-48.0 [facility] Hemoglobin [Mass/volume] in Bloodon 06-30-2024 Hemoglobin (Bld) [Mass/Vol] Hemoglobin [Mass/volume] in Blood Low 12.0-16.0 [facility] Laboratory - Hematology and Cell countson 06-30-2024 Immature granulocytes/100 WBC (Bld) 0.5 % 0.0-0.5 [facility] Leukocytes [#/volume] correc ailyn for nucleated erythrocytes in Blood by Automated counon 06-30-2024 WBC corrected for nucl RBC Auto (Bld) [#/Vol] Leukocytes [#/volume] corrected for nucleated erythrocytes in Blood by Automated coun 4.0-11.0 [facility] Lymphocytes Auto (Bld) [#/Vo l]on 06-30-2024 Lymphocytes (Bld) [#/Vol] Lymphocytes [#/volume] in Blood by Automated count 1.2-3.8 [facility] Lymphocytes/100 WBC Auto (Bl d)on 06-30-2024 Lymphocytes/100 WBC (Bld) Lymphocytes/100 leukocytes in Blood by Automated count 20.5-60.0 [facility] MCH Auto (RBC) [Entitic mass ]on 06-30-2024 MCH (RBC) [Entitic mass] MCH [Entitic mass] by Automated count Low 26.7-34.0 [facility] MCHC Auto (RBC) [Mass/Vol]on 06-30-2024 MCHC (RBC) [Mass/Vol] MCHC [Mass/volume] by Automated count 29.9-35.2 [facility] MCV Auto (RBC) [Entitic vol] on 06-30-2024 MCV (RBC) [Entitic vol] MCV [Entitic volume] by Automated count Low 81.0-99.0 [facility] Monocytes Auto (Bld) [#/Vol] on 06-30-2024 Monocytes (Bld) [#/Vol] Automated blood monocyte count High 0.3-0.8 [facility] Monocytes/100 WBC Auto (Bld) on 06-30-2024 Monocytes/100 WBC (Bld) Automated monocyte % 1.7-12.0 [facility] Neutrophils Auto (Bld) [#/Vo l]on 06-30-2024 Neutrophils (Bld) [#/Vol] Neutrophils [#/volume] in Blood by Automated count High 1.4-6.5 [facility] Neutrophils/100 WBC Auto (Bl d)on 06-30-2024 Neutrophils/100 WBC (Bld) Automated neutrophil % 43.0-75.0 [facility] No Panel Informationon 06-30 Eosinophils # (Auto) 0.0 10 3/uL 0.0-0.7 [facility] Immature Granulocyte # (Auto) 0.05 10 3/uL High 0.00-0.03 [facility] Platelet mean volume Auto (B ld) [Entitic vol]on 06-30-2024 Platelet mean volume (Bld) [Entitic vol] Platelet mean volume [Entitic volume] in Blood by Automated count 9.5-13.5 [facility] Platelets Auto (Bld) [#/Vol] on 06-30-2024 Platelets (Bld) [#/Vol] Platelets [#/volume] in Blood by Automated count 150-450 [facility] RBC Auto (Bld) [#/Vol]on RBC (Bld) [#/Vol] Erythrocytes [#/volu me] in Blood by Automated count Low 4.20-5.40 [facility] Basophils Auto (Bld) [#/Vol] on 06-29-2024 Basophils (Bld) [#/Vol] Automated basophil count 0.0-0.1 [facility] Basophils/100 WBC Auto (Bld) on 06-29-2024 Basophils/100 WBC (Bld) Automated basophil % Low 0.2-2.0 [facility] Buprenorphine [Presence] in Urineon 06-29-2024 Buprenorphine Ql (U) Buprenorphine [Presence] in Urine NEGATIVE [facility] Comment on above: DRUG CLASS TEST SYST EM CUT-OFF CONCENTRATIONS ARE ASFOLLOWS:AMP (Amphetamine): 500 ng/mLBAR (Barbiturates): 200 ng/mLBZO (Benzodiazepines): 150 ng/mLBUP (Buprenorphine): 10 ng/mLCOC (Cocaine): 150 ng/mLmAMP (Methamphetamine): 500 ng/mLMTD (Methadone): 200 ng/mLOPI (Opiates): 100 ng/mLOXY (Oxycodone): 100 ng/mLPCP (Phencyclidine): 25 ng/mLTHC (Cannabinoids): 50 ng/mLTCA (Trycyclic Antidepressants): 300 ng/mL Eosinophils/100 WBC Auto (Bl d)on 06-29-2024 Eosinophils/100 WBC (Bld) Automated eosinophil % Low 0.9-7.0 [facility] Erythrocyte distribution wid th Auto (RBC) [Ratio]on 06-29-2024 Erythrocyte distribution width (RBC) [Ratio] Erythrocyte distribution width [Ratio] by Automated count 11.0-15.0 [facility] Hematocrit Auto (Bld) [Volum e fraction]on 06-29-2024 Hematocrit (Bld) [Volume fraction] Hematocrit [Volume Fraction] of Blood by Automated count Low 36.0-48.0 [facility] Hemoglobin [Mass/volume] in Bloodon 06-29-2024 Hemoglobin (Bld) [Mass/Vol] Hemoglobin [Mass/volume] in Blood Low 12.0-16.0 [facility] Laboratory - Drug toxicology on 06-29-2024 Amphetamines Ql (U) Negative NEGATIVE [facility] Benzodiazepines Ql (U) Negative NEGATIVE [facility] Cocaine Ql (U) Negative NEGATIVE [facility] Opiates Ql (U) Negative NEGATIVE [facility] Phencyclidine Ql (U) Negative NEGATIVE [facility] Laboratory - Hematology and Cell countson 06-29-2024 Immature granulocytes/100 WBC (Bld) 0.3 % 0.0-0.5 [facility] Laboratory - Urinalysison Mucus Ql (Urine sed) NONE SEEN NONE SEEN [facility] Leukocytes [#/volume] correc ailyn for nucleated erythrocytes in Blood by Automated counon 06-29-2024 WBC corrected for nucl RBC Auto (Bld) [#/Vol] Leukocytes [#/volume] corrected for nucleated erythrocytes in Blood by Automated coun 4.0-11.0 [facility] Lymphocytes Auto (Bld) [#/Vo l]on 06-29-2024 Lymphocytes (Bld) [#/Vol] Lymphocytes [#/volume] in Blood by Automated count Low 1.2-3.8 [facility] Lymphocytes/100 WBC Auto (Bl d)on 06-29-2024 Lymphocytes/100 WBC (Bld) Lymphocytes/100 leukocytes in Blood by Automated count Low 20.5-60.0 [facility] MCH Auto (RBC) [Entitic mass ]on 06-29-2024 MCH (RBC) [Entitic mass] MCH [Entitic mass] by Automated count Low 26.7-34.0 [facility] MCHC Auto (RBC) [Mass/Vol]on 06-29-2024 MCHC (RBC) [Mass/Vol] MCHC [Mass/volume] by Automated count 29.9-35.2 [facility] MCV Auto (RBC) [Entitic vol] on 06-29-2024 MCV (RBC) [Entitic vol] MCV [Entitic volume] by Automated count Low 81.0-99.0 [facility] Methadone [Presence] in Urin e by Screen methodon 06-29-2024 Methadone Screen Ql (U) Methadone [Presence] in Urine by Screen method NEGATIVE [facility] Monocytes Auto (Bld) [#/Vol] on 06-29-2024 Monocytes (Bld) [#/Vol] Automated blood monocyte count 0.3-0.8 [facility] Monocytes/100 WBC Auto (Bld) on 06-29-2024 Monocytes/100 WBC (Bld) Automated monocyte % 1.7-12.0 [facility] Neutrophils Auto (Bld) [#/Vo l]on 06-29-2024 Neutrophils (Bld) [#/Vol] Neutrophils [#/volume] in Blood by Automated count High 1.4-6.5 [facility] Neutrophils/100 WBC Auto (Bl d)on 06-29-2024 Neutrophils/100 WBC (Bld) Automated neutrophil % High 43.0-75.0 [facility] No Panel Informationon 06-29 Eosinophils # (Auto) 0.0 10 3/uL 0.0-0.7 [facility] Immature Granulocyte # (Auto) 0.03 10 3/uL 0.00-0.03 [facility] Urine Bacteria NONE SEEN #/HPF NONE SEEN [facility] Urine Barbiturates Screen Negative NEGATIVE [facility] Urine Culture Reflexed NO [facility] Urine Marijuana (THC) Screen Negative NEGATIVE [facility] Urine Methamphetamines Screen Negative NEGATIVE [facility] Urine Other Casts NONE SEEN #/LPF NONE SEEN [facility] Urine Other Crystals None Seen #/HPF None Seen [facility] Urine RBC 0-2 #/HPF 0-2 [facility] Urine Squamous Epithelial Cells RARE #/LPF NONE/RARE [facility] Urine Transitional Epithelial Cells RARE #/LPF Abnormal NONE SEEN [facility] Urine WBC 0-2 #/HPF Abnormal NONE SEEN [facility] Platelet mean volume Auto (B ld) [Entitic vol]on 06-29-2024 Platelet mean volume (Bld) [Entitic vol] Platelet mean volume [Entitic volume] in Blood by Automated count 9.5-13.5 [facility] Platelets Auto (Bld) [#/Vol] on 06-29-2024 Platelets (Bld) [#/Vol] Platelets [#/volume] in Blood by Automated count 150-450 [facility] RBC Auto (Bld) [#/Vol]on RBC (Bld) [#/Vol] Erythrocytes [#/volu me] in Blood by Automated count Low 4.20-5.40 [facility]H UA (CLEAN/CATCH) TELEPHONE SALES REPRESENTATIVE/AMBERLY RO IF IND.on 06-29-2024 BILIRUBIN URINE Negative NEGATIVE [facility] BLOOD URINE Negative NEGATIVE [facility] Clarity (U) CLEAR CLEAR [facility] Color (U) LT. YELLOW YELLOW [facility] GLUCOSE URINE UA Negative NEGATIVE mg/dL [facility] Interpretation and review of laboratory results Abnormal [facility] Ketones Ql (U) 40 mg/dL Abnormal NEGATIVE [facility] Leukocyte esterase Test strip Ql (U) Negative NEGATIVE [facility] NITRITE URINE Negative NEGATIVE [facility] pH (U) 6.0 [pH] 5.0 - 9.0 [facility] PROTEIN URINE Negative NEG/TRACE mg/dL [facility] SPECIFIC GRAVITY URINE 1.015 1.005 - 1.025 [facility] URINE MICROSCOPIC INDICATED YES [facility] UROBILINOGEN URINE 0.2 EU/dL 0.2 - 1.0 EU/dL [facility] Urine tricyclic antidepressa nt measurementon 06-29-2024 Tricyclic antidepressants (U) [Mass/Vol] Urine tricyclic antidepressant measurement NEGATIVE [facility] oxyCODONE+oxyMORphone [Prese nce] in Urine by Screen methodon 06-29-2024 oxyCODONE+oxyMORphon e Screen Ql (U) oxyCODONE+oxyMORphone [Presence] in Urine by Screen method NEGATIVE [facility] ALL MISCELLANEOUS TESTon MISCELLANEOUS TEST COMMENT . [facility] Comment on above: Test Ordered: [id number] Strep Gp B Culture+Rflx Strep Gp B Culture+Rflx Positive [A ] CB Reference Range: Negative Centers for Disease Control and Prevention (CDC) and [place] [employer]nec[employer] (ACOG) guidelines [...] at high risk for anaphylaxis. Performed at: [facility] [address] [id number] [place] Fitter: Jose Alejandro Matthews PhD, Phone: [phone] GROUP B STREP [id number] CULTURE, GROUP B STREP WITH SUSCEPTIBILITY [facility] No Panel Informationon 06-21 Miscellaneous Test COMMENT . [facility] Comment on above: Test Ordered: [id number] Strep Gp B Culture+RflxStrep Gp B Culture+Rflx [...] women at high risk for anaphylaxis.Performed at: [facility] [id number] Director: Jose Alejandro Matthews PhD, Phone: [phone] Urinalysis macro (dipstick) panel (U)on 06-07-2024 Bilirubin, UA Negative Negative - 4(70) +++ mg/dL [facility] Blood, UA Negative Negative - 50 Daniel/mcL [facility] Clarity, UA Clear [facility] Color, UA Colorless [facility] Glucose, UA Positive Negative - 2000(110) ++++ mg/dL [facility] Comment on above: 100 Interpretation and review of laboratory results Abnormal [facility] Ketones, UA Negative Negative - 160(16) ++++ mg/dL [facility] Leukocytes, UA Negative Negative - 500+++ Gavin/mcL [facility] Nitrite, UA Negative Negative - Positive [facility] pH, UA 6 5 - 9 [facility] Protein, UA Negative Negative - 2000(20) ++++ mg/dL [facility] Spec Grav, UA 1.005 1 - 1.03 [facility] Urobilinogen, UA 0.2 0.2 - 12 mg/dL [facility] US OB FOLLOW UP TRANSABDOMIN [...] UA Negative Negative - 4(70) +++ mg/dL [facility] Blood, UA Positive Negative - 50 Daniel/mcL [facility] Comment on above: TRACE-INTACT Clarity, UA Clear [facility] Color, UA Yellow [facility] Glucose, UA Negative Negative - 1999(110) ++++ mg/dL [facility] Interpretation and review of laboratory results Abnormal [facility] Ketones, UA Negative Negative - 160(16) ++++ mg/dL [facility] Leukocytes, UA Negative Negative - 500+++ Gavin/mcL [facility] Nitrite, UA Negative Negative - Positive [facility] pH, UA 6 5 - 9 [facility] Protein, UA Negative Negative - 2000(20) ++++ mg/dL [facility] Spec Grav, UA 1.005 1 - 1.03 [facility] Urobilinogen, UA 0.2 0.2 - 12 mg/dL [facility] Urinalysis macro (dipstick) panel (U)on 05-11-2024 Bilirubin, UA Negative Negative - 4(70) +++ mg/dL [facility] Blood, UA Negative Negative - 50 Daniel/mcL [facility] Clarity, UA Clear [facility] Color, UA Yellow [facility] Glucose, UA Negative Negative - 1999(110) ++++ mg/dL [facility] Interpretation and review of laboratory results Abnormal [facility] Ketones, UA Negative Negative - 160(16) ++++ mg/dL [facility] Leukocytes, UA Trace Negative - 500+++ Gavin/mcL [facility] Nitrite, UA Negative Negative - Positive [facility] pH, UA 6.5 5 - 9 [facility] Protein, UA Negative Negative - 1999(20) ++++ mg/dL [facility] Spec Grav, UA 1.02 1 - 1.03 [facility] Urobilinogen, UA 0.2 0.2 - 12 mg/dL [facility] Urinalysis macro (dipstick) panel (U)on 04-27-2024 Bilirubin, UA Negative Negative - 4(70) +++ mg/dL [facility] Blood, UA Negative Negative - 50 Daniel/mcL [facility] Clarity, UA Clear [facility] Color, UA Yellow [facility] Glucose, UA Negative Negative - 1999(110) ++++ mg/dL [facility] Interpretation and review of laboratory results Abnormal [facility] Ketones, UA Negative Negative - 160(16) ++++ mg/dL [facility] Leukocytes, UA Trace Negative - 500+++ Gavin/mcL [facility] Nitrite, UA Negative Negative - Positive [facility] pH, UA 7 5 - 9 [facility] Protein, UA Negative Negative - 1999(20) ++++ mg/dL [facility] Spec Grav, UA 1.01 1 - 1.03 [facility] Urobilinogen, UA 0.2 0.2 - 12 mg/dL [facility] ALL CBC WITH AUTO DIFFon BASOPHILS ABSOLUTE AUTO 0 [facility] Basophils/100 WBC (Bld) 0.5 % 0.2 - 2.0 % [facility] Eosinophils/100 WBC (Bld) 0.5 % Low 0.9 - 7.0 % [facility] Erythrocyte distribution width (RBC) [Ratio] 12.9 % 11.0 - 15.0 % [facility] Hematocrit (Bld) [Volume fraction] 33.7 % Low 36.0 - 48.0 % [facility] Hemoglobin (Bld) [Mass/Vol] 10.8 g/dL Low 12.0 - 16.0 g/dL [facility] IMMATURE GRANULOCYTES ABS AUTO 0.04 High [facility] Immature granulocytes/100 WBC (Bld) 0.6 % High 0.0 - 0.5 % [facility] Interpretation and review of laboratory results Abnormal [facility] LYMPHOCYTES ABSOLUTE AUTO 1.3 [facility] Lymphocytes/100 WBC (Bld) 20.2 % Low 20.5 - 60.0 % [facility] MCH (RBC) [Entitic mass] 26.9 pg 26.7 - 34.0 pg [facility] MCHC (RBC) [Mass/Vol] 32 g/dL 29.9 - 35.2 g/dL [facility] MCV (RBC) [Entitic vol] 83.8 fL 81.0 - 99.0 fL [facility] MONOCYTES ABSOLUTE AUTO 0.5 [facility] Monocytes/100 WBC (Bld) 8.6 % 1.7 - 12.0 % [facility] NEUTROPHILS ABSOLUTE AUTO 4.4 [facility] Neutrophils/100 WBC (Bld) 69.6 % 43.0 - 75.0 % [facility] Platelet mean volume (Bld) [Entitic vol] 10.3 fL 9.5 - 13.5 fL [facility] EO # 0 [facility] PLT 200 [facility] RBC 4.02 Low [facility] WBC 6.3 [facility] Urinalysis macro (dipstick) panel (U)on 04-05-2024 Bilirubin, UA Negative Negative - 4(70) +++ mg/dL [facility] Blood, UA Negative Negative - 50 Daniel/mcL [facility] Clarity, UA Clear [facility] Color, UA Yellow [facility] Glucose, UA Negative Negative - 1999(110) ++++ mg/dL [facility] Interpretation and review of laboratory results Normal [facility] Ketones, UA Negative Negative - 160(16) ++++ mg/dL [facility] Leukocytes, UA Negative Negative - 500+++ Gavin/mcL [facility] Nitrite, UA Negative Negative - Positive [facility] pH, UA 5.5 5 - 9 [facility] Protein, UA Negative Negative - 1999(20) ++++ mg/dL [facility] Spec Grav, UA 1.025 1 - 1.03 [facility] Urobilinogen, UA 0.2 0.2 - 12 mg/dL [facility] AFP, SERUM, OPEN SPINA BIFID Aon 02-20-2024 AFP MOM 0.72 . [facility] AFP VALUE 27.2 ng/mL . [facility] COMMENT: Comment . [facility] Comment on above: Tiffanie Petersen , Ph.D., [facility] Director References: Available Upon Request. Multiples Of Median Cutoffs For AFP Elevations Patrick 2.5 Black 2.8 IDD 2.0 Twins 4.5 Abbreviation Definitions IDD - Insulin Dep Diabetes OSBR - Open Spina Bifida Risk For further inquiries contact [facility] at [phone]. This test was developed and its performance characteristics determined by [facility]. It has not been cleared or approved by the Food and Drug Administration. Performed at: [facility] [address] [place] [address] [id number] [employer] Fitter: Tor Real [facility], Phone: [phone] GEST. AGE ON COLLECTION DATE 18.3 . weeks [facility] GESTAT. AGE BASED ON LMP . [facility] Comment on above: Recalculations are n ot recommended when gestational dating by LMP and ultrasound are within 10 days. INSULIN DEP DIABETES No . [facility] INTERPRETATION Comment . [facility] Comment on above: Interpretation: Scre en [...] Customer Services to discuss available options. The [employer] recommends amniocentesis be offered to women age 35 and older. [age] [facility] MULTIPLE GESTATION No . [facility] OSBR R[place]K [place] [id number] . [facility] RACE . [facility] RESULTS Report . [facility] TEST RESULTS: Negative . [facility] WEIGHT 198 . lbs [facility] N N LMP [id number] [phone] N 1 Y 198 N N N N N White/ [facility] RECURRENT VAGINITIS (HTRX)on 02-11-2024 ATOPOBIUM VAGINAE 0 [facility] ATOPOBIUM VAGINAE Not detected [facility] BVAB 2,3 (BACTERIAL VAGINOSIS ASSOCIATED BACTERIA 2, 3); MOBILUNCUS SPP 0 [facility] BVAB 2,3 (BACTERIAL VAGINOSIS ASSOCIATED BACTERIA 2, 3); MOBILUNCUS SPP Not detected [facility] SAIRA ALBICANS, PARAPSILOSIS, TROPICALIS 0 [facility] SAIRA ALBICANS, PARAPSILOSIS, TROPICALIS Not detected [facility] SAIRA GLABRATA 0 [facility] SAIRA GLABRATA Not detected [facility] SAIRA KRUSEI 0 [facility] SAIRA KRUSEI Not detected [facility] CHLAMYDIA TRACHOMATIS 0 [facility] CHLAMYDIA TRACHOMATIS Not detected [facility] GARDNERELLA VAGINALIS 0 [facility] GARDNERELLA VAGINALIS Not detected [facility] MEGASPHAERA (TYPES 1, 2) 0 [facility] MEGASPHAERA (TYPES 1, 2) Not detected [facility] MYCOPLASMA GENITALIUM 0 [facility] MYCOPLASMA GENITALIUM Not detected [facility] NEISSERIA GONORRHOEAE 0 [facility] NEISSERIA GONORRHOEAE Not detected [facility] TRICHOMONAS VAGINALIS 0 [facility] TRICHOMONAS VAGINALIS Not detected [facility] Urinalysis macro (dipstick) panel (U)on 02-09-2024 Bilirubin, UA Negative Negative - 4(70) +++ mg/dL [facility] Blood, UA Negative Negative - 50 Daniel/mcL [facility] Clarity, UA Clear [facility] Color, UA Yellow [facility] Glucose, UA Negative Negative - 1999(110) ++++ mg/dL [facility] Interpretation and review of laboratory results Normal [facility] Ketones, UA Negative Negative - 160(16) ++++ mg/dL [facility] Leukocytes, UA Negative Negative - 500+++ Gavin/mcL [facility] Nitrite, UA Negative Negative - Positive [facility] pH, UA 5.5 5 - 9 [facility] Protein, UA Negative Negative - 1999(20) ++++ mg/dL [facility] Spec Grav, UA 1.02 1 - 1.03 [facility] Urobilinogen, UA 0.2 0.2 - 12 mg/dL [facility] ALL CBC WITH AUTO DIFFon BASOPHILS ABSOLUTE AUTO 0.0 [facility] Basophils/100 WBC (Bld) 0.1 % Low 0.2 - 2.0 % [facility] Eosinophils/100 WBC (Bld) 1.0 % 0.9 - 7.0 % [facility] Erythrocyte distribution width (RBC) [Ratio] 13.2 % 11.0 - 15.0 % [facility] Hematocrit (Bld) [Volume fraction] 36.4 % 36.0 - 48.0 % [facility] Hemoglobin (Bld) [Mass/Vol] 11.9 g/dL Low 12.0 - 16.0 g/dL [facility] IMMATURE GRANULOCYTES ABS AUTO 0.01 [facility] Immature granulocytes/100 WBC (Bld) 0.1 % 0.0 - 0.5 % [facility] Interpretation and review of laboratory results Abnormal [facility] LYMPHOCYTES ABSOLUTE AUTO 1.5 [facility] Lymphocytes/100 WBC (Bld) 22.8 % 20.5 - 60.0 % [facility] MCH (RBC) [Entitic mass] 28.1 pg 26.7 - 34.0 pg [facility] MCHC (RBC) [Mass/Vol] 32.7 g/dL 29.9 - 35.2 g/dL [facility] MCV (RBC) [Entitic vol] 86.1 fL 81.0 - 99.0 fL [facility] MONOCYTES ABSOLUTE AUTO 0.4 [facility] Monocytes/100 WBC (Bld) 6.0 % 1.7 - 12.0 % [facility] NEUTROPHILS ABSOLUTE AUTO 4.7 [facility] Neutrophils/100 WBC (Bld) 70.0 % 43.0 - 75.0 % [facility] Platelet mean volume (Bld) [Entitic vol] 10.7 fL 9.5 - 13.5 fL [facility]1 [facility] PLT 213 [facility] RBC 4.23 [facility] WBC 6.7 [facility] Urinalysis macro (dipstick) panel (U)on 01-07-2024 Bilirubin, UA Negative Negative - 4(70) +++ mg/dL [facility] Blood, UA Negative Negative - 50 Daniel/mcL [facility] Clarity, UA Clear [facility] Color, UA Yellow [facility] Glucose, UA Negative Negative - 2000(110) ++++ mg/dL [facility] Interpretation and review of laboratory results Normal [facility] Ketones, UA Negative Negative - 160(16) ++++ mg/dL [facility] Leukocytes, UA Negative Negative - 500+++ Gavin/mcL [facility] Nitrite, UA Negative Negative - Positive [facility] pH, UA 6.5 5 - 9 [facility] Protein, UA Negative Negative - 2000(20) ++++ mg/dL [facility] Spec Grav, UA 1.020 1 - 1.03 [facility] Urobilinogen, UA 1.0 0.2 - 12 mg/dL [facility] ALL CBC WITH AUTO DIFFon BASOPHILS ABSOLUTE AUTO 0.0 [facility] Basophils/100 WBC (Bld) 0.3 % 0.2 - 2.0 % [facility] Eosinophils/100 WBC (Bld) 0.9 % 0.9 - 7.0 % [facility] Erythrocyte distribution width (RBC) [Ratio] 13.0 % 11.0 - 15.0 % [facility] Hematocrit (Bld) [Volume fraction] 39.1 % 36.0 - 48.0 % [facility] Hemoglobin (Bld) [Mass/Vol] 12.8 g/dL 12.0 - 16.0 g/dL [facility] IMMATURE GRANULOCYTES ABS AUTO 0.02 [facility] Immature granulocytes/100 WBC (Bld) 0.3 % 0.0 - 0.5 % [facility] Interpretation and review of laboratory results Abnormal [facility] LYMPHOCYTES ABSOLUTE AUTO 1.6 [facility] Lymphocytes/100 WBC (Bld) 20.4 % Low 20.5 - 60.0 % [facility] MCH (RBC) [Entitic mass] 27.8 pg 26.7 - 34.0 pg [facility] MCHC (RBC) [Mass/Vol] 32.7 g/dL 29.9 - 35.2 g/dL [facility] MCV (RBC) [Entitic vol] 84.8 fL 81.0 - 99.0 fL [facility] MONOCYTES ABSOLUTE AUTO 0.6 [facility] Monocytes/100 WBC (Bld) 7.1 % 1.7 - 12.0 % [facility] NEUTROPHILS ABSOLUTE AUTO 5.5 [facility] Neutrophils/100 WBC (Bld) 71.0 % 43.0 - 75.0 % [facility] Platelet mean volume (Bld) [Entitic vol] 10.2 fL 9.5 - 13.5 fL [facility] EO # 0.1 [facility] PLT 254 [facility] RBC 4.61 [facility] WBC 7.7 [facility] Urinalysis macro (dipstick) panel (U)on 12-17-2023 Bilirubin, UA Negative Negative - 4(70) +++ mg/dL [facility] Blood, UA Negative Negative - 50 Daniel/mcL [facility] Clarity, UA Clear [facility] Color, UA Yellow [facility] Glucose, UA Negative Negative - 1999(110) ++++ mg/dL [facility] Interpretation and review of laboratory results Abnormal [facility] Ketones, UA Positive Negative - 160(16) ++++ mg/dL [facility] Comment on above: 15 Leukocytes, UA Negative Negative - 500+++ Gavin/mcL [facility] Nitrite, UA Negative Negative - Positive [facility] pH, UA 6.5 5 - 9 [facility] Protein, UA Negative Negative - 1999(20) ++++ mg/dL [facility] Spec Grav, UA 1.030 1 - 1.03 [facility] Urobilinogen, UA 1.0 0.2 - 12 mg/dL [facility] HCG ( test) Ql (U)o n 12-12-2023 Interpretation and review of laboratory results Abnormal [facility] Preg Test, Ur Positive [facility] Urinalysis macro (dipstick) panel (U)on 12-12-2023 Bilirubin, UA Positive Negative - 4(70) +++ mg/dL [facility] Comment on above: small Blood, UA Negative Negative - 50 Daniel/mcL [facility] Clarity, UA Clear [facility] Color, UA Yellow [facility] Glucose, UA Negative Negative - 2000(110) ++++ mg/dL [facility] Interpretation and review of laboratory results Abnormal [facility] Ketones, UA Positive Negative - 160(16) ++++ mg/dL [facility] Comment on above: trace Leukocytes, UA Negative Negative - 500+++ Gavin/mcL [facility] Nitrite, UA Negative Negative - Positive [facility] pH, UA 6.0 5 - 9 [facility] Protein, UA Positive Negative - 1999(20) ++++ mg/dL [facility] Comment on above: 30 Spec Grav, UA 1.030 1 - 1.03 [facility] Urobilinogen, UA 0.2 0.2 - 12 mg/dL [facility] Cytology Cervical or vaginal smear or scraping studyon 03-05-2023 [facility] CBC AUTO DIFFon 07-25-2022 BASO # 0.0 103/ul Normal 0.0-0.1 [facility] Comment on above: Performed By: #### C BC #### [facility] [address] [place] [address] Dr. Jerry Samuel Basophils/100 WBC (Bld) 0.3 % Normal 0.2-2.0 [facility] Comment on above: Performed By: #### C BC #### [facility] [address] [place] [address] Dr. Jerry Samuel EO # 0.1 103/ul Normal 0.0-0.7 [facility] Comment on above: Performed By: #### C BC #### [facility] [address] [place] [address] Dr. Jerry Samuel Eosinophils/100 WBC (Bld) 1.4 % Normal 0.9-7.0 [facility] Comment on above: Performed By: #### C BC #### [facility] [address] [place] [address] Dr. Jerry Samuel Erythrocyte distribution width (RBC) [Ratio] 13.2 % Normal 11.0-15.0 [facility] Comment on above: Performed By: #### C BC #### [facility] [address] [place] [address] Dr. Jerry Samuel Hematocrit (Bld) [Volume fraction] 33.9 % Critically low 36.0-48.0 [facility] Comment on above: Performed By: #### C BC #### [facility] [address] [place] [address] Dr. Jerry Samuel Hemoglobin (Bld) [Mass/Vol] 11.3 g/dL Critically low 12.0-16.0 [facility] Comment on above: Performed By: #### C BC #### [facility] [address] [place] [address] Dr. Jerry Samuel IG # 0.04 10e3/ul Critically high 0.00-0.03 [facility] Comment on above: Performed By: #### C BC #### [facility] [address] [place] [address] Dr. Jerry Samuel IG % 0.6 % Critically high 0.0-0.5 [facility] Comment on above: Performed By: #### C BC #### [facility] [address] [place] [address] Dr. Jerry Samuel LYMPH # 1.9 103/ul Normal 1.2-3.8 [facility] Comment on above: Performed By: #### C BC #### [facility] [address] [place] [address] Dr. Jerry Samuel Lymphocytes/100 WBC (Bld) 30.2 % Normal 20.5-60.0 [facility] Comment on above: Performed By: #### C BC #### [facility] [address] [place] [address] Dr. Jerry Samuel MANUAL DIFF REQ NO Normal [facility] Comment on above: Performed By: #### C BC #### [facility] [address] [place] [address] Dr. Jerry Samuel MCH (RBC) [Entitic mass] 29.9 pg Normal 26.7-34.0 [facility] Comment on above: Performed By: #### C BC #### [facility] [address] [place] [address] Dr. Jerry Samuel MCHC (RBC) [Mass/Vol] 33.3 g/dL Normal 29.9-35.2 [facility] Comment on above: Performed By: #### C BC #### [facility] [address] [place] [address] Dr. Jerry Samuel MCV (RBC) [Entitic vol] 89.7 fL Normal 81.0-99.0 [facility] Comment on above: Performed By: #### C BC #### [facility] [address] [place] [address] Dr. Jerry Samuel MONO # 0.5 103/ul Normal 0.3-0.8 [facility] Comment on above: Performed By: #### C BC #### [facility] [address] [address] [address] Jerry Samuel Monocytes/100 WBC (Bld) 7.2 % Normal 1.7-12.0 [facility] Comment on above: Performed By: #### C BC #### [facility] [address] [address] [address] Jerry Samuel NEUT # 3.8 103/ul Normal 1.4-6.5 [facility] Comment on above: Performed By: #### C BC #### [facility] [address] [address] [address] Jerry Samuel Neutrophils/100 WBC (Bld) 60.3 % Normal 43.0-75.0 [facility] Comment on above: Performed By: #### C BC #### [facility] [address] [place] [address] Dr. Jerry Samuel Platelet mean volume (Bld) [Entitic vol] 9.8 fL Normal 9.5-13.5 [facility] Comment on above: Performed By: #### C BC #### [facility] [address] [place] [address] Dr. Jerry Samuel PLT 188 103/ul Normal 150-450 [facility] Comment on above: Performed By: #### C BC #### [facility] [address] [address] [address] Jerry Samuel RBC 3.78 106/ul Critically low 4.20-5.40 [facility] Comment on above: Performed By: #### C BC #### [facility] [address] [address] [address] Jerry Samuel WBC 6.2 103/ul Normal 4.0-11.0 [facility] Comment on above: Performed By: #### C BC #### [facility] [address] [place] [address] Dr. Jerry Samuel GLUCOSE - 1HRon 07-25-2022 Glucose [Mass/Vol] 100 mg/dL Normal 74-106 [facility] Comment on above: Performed By: #### N BOX #### [facility] [address], [place] [address] Dr. Jerry Samuel US PREG ANATOMY SINGLEon [...] Low-lying posterior placenta. Electronically authenticated by: ABRIL SCANLNO Date: 2022-07-02 13:45 Normal [facility] AFP MATERNAL FOR SPINA BIFID Aon 06-14-2022 AFP MoM 0.87 Normal [facility] Comment on above: Performed By: #### R PRQ #### [facility] [address], [place] [address] Dr. Jerry Samuel AFP Value 39.6 ng/mL Normal [facility] Comment on above: Performed By: #### R PRQ #### [facility] [address] [place] [address] Dr. Jerry Samuel AFP, Serum for Spina Bifida Report Normal [facility] Comment on above: Performed By: #### R PRQ #### [facility] [address] [place] [address] Dr. Jerry Samuel Comment Comment Normal [facility] Comment on above: Result Comment: Irina Petersen, Ph.D., [facility] Director . References: Available Upon Request. . Multiples Of Median Cutoffs For AFP Elevations Patrick 2.5 Black 2.8 IDD 2.0 Twins 4.5 Abbreviation Definitions IDD - Insulin Dep Diabetes OSBR - Open Spina Bifida Risk . For further inquiries contact [employer] [facility] at [phone]. . This test was developed and its performance characteristics determined by [facility]. It has not been cleared or approved by the Food and Drug Administration. Performed By: #### R PRQ #### [facility] [address] [place] [address] Dr. Jerry Samuel Gest Age Collection Date 18[age][address] [facility] Comment on above: Performed By: #### R PRQ #### [facility] [address] [place] [address] Dr. Jerry Samuel Gestat, Age Based on Ultrasound Normal [facility] Comment on above: Result Comment: 09.0 on 04/04/2022 Recalculations are not recommended when gestational dating by LMP and ultrasound are within 10 days. Performed By: #### R PRQ #### [facility] [address] [place] [address] Dr. Jerry Samuel Insulin Dep Diabetes No Normal [facility] Comment on above: Performed By: #### R PRQ #### [facility] [address] [place] [address] Dr. Jerry Samuel Interpretation Comment Normal [facility] Comment on above: Result Comment: Inte [...] Customer Services to discuss available options. The [employer] recommends amniocentesis be offered to women age 35 and older. Performed By: #### R PRQ #### [facility] [address] [place] [address] Dr. Jerry Samuel [age] Normal [facility] Comment on above: Performed By: #### R PRQ #### [facility] [address] [place] [address] Dr. Jerry Samuel Multiple Gestation No Normal [facility] Comment on above: Performed By: #### R PRQ #### [facility] [address] [place] [address] Dr. Jerry Samuel OS[place] [id number] Normal [facility] Comment on above: Performed By: #### R PRQ #### [facility] [address] [address] [address] Jerry Samuel PDF . Normal [facility] Comment on above: Performed By: #### R PRQ #### [facility] [address] [place] [address] Dr. Jerry Samuel Race Normal [facility] Comment on above: Performed By: #### R PRQ #### [facility] [address] [place] [address] Dr. Jerry Samuel Test Results: Negative Normal [facility] Comment on above: Performed By: #### R PRQ #### [facility] [address] [place] [address] Dr. Jerry Samuel CHLAMYDIA/GONOCOCCUS ELINOR (SW AB/URINE/PAPon 06-07-2022 Chlamydia trachomatis, ELINOR Negative Normal Negative [facility] Comment on above: Performed By: #### R PRQ #### [facility] [address] [place] [address] Dr. Jerry Samuel Neisseria gonorrhoeae, ELINOR Negative Normal Negative [facility] Comment on above: Performed By: #### R PRQ #### [facility] [address] [place] [address] Dr. Jerry Samuel VAGINITIS/VAGINOSIS DNA PROB Nayan 06-06-2022 Saira species Negative Normal Negative [facility] Comment on above: Performed By: #### V AGINT #### [facility] [address] [place] [address] Dr. Jerry Samuel Gardnerella vaginalis Negative Normal Negative [facility] Comment on above: Performed By: #### V AGINT #### [facility] [address] [place] [address] Dr. Jerry Samuel Trichomonas vaginalis Negative Normal Negative [facility] Comment on above: Performed By: #### V AGINT #### [facility] [address] [place] [address] Dr. Jerry Samuel CBC AUTO DIFFon 05-26-2022 BASO # 0.0 103/ul Normal 0.0-0.1 [facility] Comment on above: Performed By: #### C BC #### [facility] [address] [place] [address] Dr. Jerry Samuel Basophils/100 WBC (Bld) 0.1 % Critically low 0.2-2.0 [facility] Comment on above: Performed By: #### C BC #### [facility] [address] [place] [address] Dr. Jerry Samuel EO # 0.0 103/ul Normal 0.0-0.7 [facility] Comment on above: Performed By: #### C BC #### [facility] [address] [place] [address] Dr. Jerry Samuel Eosinophils/100 WBC (Bld) 0.4 % Critically low 0.9-7.0 [facility] Comment on above: Performed By: #### C BC #### [facility] [address] [place] [address] Dr. Jerry Samuel Erythrocyte distribution width (RBC) [Ratio] 12.6 % Normal 11.0-15.0 [facility] Comment on above: Performed By: #### C BC #### [facility] [address] [place] [address] Dr. Jerry Samuel Hematocrit (Bld) [Volume fraction] 34.0 % Critically low 36.0-48.0 [facility] Comment on above: Performed By: #### C BC #### [facility] [address] [place] [address] Dr. Jerry Samuel Hemoglobin (Bld) [Mass/Vol] 11.6 g/dL Critically low 12.0-16.0 [facility] Comment on above: Performed By: #### C BC #### [facility] [address] [place] [address] Dr. Jerry Samuel IG # 0.03 10e3/ul Normal 0.00-0.03 [facility] Comment on above: Performed By: #### C BC #### [facility] [address] [place] [address] Dr. Jerry Samuel IG % 0.4 % Normal 0.0-0.5 [facility] Comment on above: Performed By: #### C BC #### [facility] [address] [place] [address] Dr. Jerry Samuel LYMPH # 1.1 103/ul Critically low 1.2-3.8 [facility] Comment on above: Performed By: #### C BC #### [facility] [address] [place] [address] Dr. Jerry Samuel Lymphocytes/100 WBC (Bld) 16.5 % Critically low 20.5-60.0 [facility] Comment on above: Performed By: #### C BC #### [facility] [address] [place] [address] Dr. Jerry Samuel MANUAL DIFF REQ NO Normal [facility] Comment on above: Performed By: #### C BC #### [facility] [address] [place] [address] Dr. Jerry Samuel MCH (RBC) [Entitic mass] 29.1 pg Normal 26.7-34.0 [facility] Comment on above: Performed By: #### C BC #### [facility] [address] [place] [address] Dr. Jerry Samuel MCHC (RBC) [Mass/Vol] 34.1 g/dL Normal 29.9-35.2 [facility] Comment on above: Performed By: #### C BC #### [facility] [address] [place] [address] Dr. Jerry Samuel MCV (RBC) [Entitic vol] 85.2 fL Normal 81.0-99.0 [facility] Comment on above: Performed By: #### C BC #### [facility] [address] [place] [address] Dr. Jerry Samuel MONO # 0.4 103/ul Normal 0.3-0.8 [facility] Comment on above: Performed By: #### C BC #### [facility] [address] [place] [address] Dr. Jerry Samuel Monocytes/100 WBC (Bld) 6.0 % Normal 1.7-12.0 [facility] Comment on above: Performed By: #### C BC #### [facility] [address] [place] [address] Dr. Jerry Samuel NEUT # 5.1 103/ul Normal 1.4-6.5 [facility] Comment on above: Performed By: #### C BC #### [facility] [address] [place] [address] Dr. Jerry Samuel Neutrophils/100 WBC (Bld) 76.6 % Critically high 43.0-75.0 [facility] Comment on above: Performed By: #### C BC #### [facility] [address] [place] [address] Dr. Jerry Samuel Platelet mean volume (Bld) [Entitic vol] 10.5 fL Normal 9.5-13.5 [facility] Comment on above: Performed By: #### C BC #### [facility] [address] [place] [address] Dr. Jerry Samuel PLT 207 103/ul Normal 150-450 [facility] Comment on above: Performed By: #### C BC #### [facility] [address] [place] [address] Dr. Jerry Samuel RBC 3.99 106/ul Critically low 4.20-5.40 [facility] Comment on above: Performed By: #### C BC #### [facility] [address] [place] [address] Dr. Jeryr Samuel WBC 6.7 103/ul Normal 4.0-11.0 [facility] Comment on above: Performed By: #### C BC #### [facility] [address] [place] [address] Dr. Jerry Samuel ER URINE PROFILEon 3 Bilirubin Ql (U) Negative Normal NEGATIVE [facility] Comment on above: Performed By: #### E RUR #### [facility] [address] [place] [address] Dr. Jerry Samuel Clarity (U) CLEAR Normal CLEAR [facility] Comment on above: Performed By: #### E RUR #### [facility] [address] [place] [address] Dr. Jerry Samuel Color (U) LT. YELLOW Normal YELLOW [facility] Comment on above: Performed By: #### E RUR #### [facility] [address] [place] [address] Dr. Jerry MUÑIZAnahy A micrscopic examination will be performed if indicated. Normal [facility] Comment on above: Performed By: #### E RUR #### [facility] [address] [place] [address] Dr. Jerry Samuel Glucose Ql (U) Negative Normal NEGATIVE [facility] Comment on above: Performed By: #### E RUR #### [facility] [address] [place] [address] Dr. Jerry Samuel Hemoglobin Ql (U) Negative Normal NEGATIVE [facility] Comment on above: Performed By: #### E RUR #### [facility] [address] [place] [address] Dr. Jerry Samuel Ketones Ql (U) Negative Normal NEGATIVE [facility] Comment on above: Performed By: #### E RUR #### [facility] [address] [place] [address] Dr. Jerry Samuel LEUKOCYTES Negative Normal NEGATIVE [facility] Comment on above: Performed By: #### E RUR #### [facility] [address] [place] [address] Dr. Jerry Samuel Nitrite Ql (U) Negative Normal NEGATIVE [facility] Comment on above: Performed By: #### E RUR #### [facility] [address] [place] [address] Dr. Jerry Samuel pH (U) 6.5 [pH] Normal 5-9 [facility] Comment on above: Performed By: #### E RUR #### [facility] [address] [place] [address] Dr. Jerry Samuel SPEC GRAVITY <=1.005 Abnormal 1.005-<=1.025 [facility] Comment on above: Performed By: #### E RUR #### [facility] [address] [place] [address] Dr. Jerry Samuel UA PROTEIN Negative Normal NEGATIVE/ TRACE [facility] Comment on above: Performed By: #### E RUR #### [facility] [address] [place] [address] Dr. Jerry Samuel UR MICRO IND NOT INDICATED Normal [facility] Comment on above: Performed By: #### E RUR #### [facility] [address] [place] [address] Dr. Jerry Samuel Urobilinogen Qn (U) 0.2 {Charlette'U}/dL Normal 0.2 - 1. 0 [facility] Comment on above: Performed By: #### E RUR #### [facility] [address] [place] [address] Dr. Jerry Samuel PROF 14(COMP METB)on 023 Albumin [Mass/Vol] 3.4 g/dL Normal 3.4-5.0 [facility] Comment on above: Performed By: #### R PRQ #### [facility] [address] [place] [address] Dr. Jerry Samuel Albumin/Globulin [Mass ratio] 1.0 {ratio} Normal [facility] Comment on above: Performed By: #### R PRQ #### [facility] [address] [address] [address] Jerry Samuel ALP [Catalytic activity/Vol] 33 U/L Critically low 46-116 [facility] Comment on above: Performed By: #### R PRQ #### [facility] [address] [address] [address] Jerry Samuel ALT [Catalytic activity/Vol] 16 U/L Normal 14-59 [facility] Comment on above: Performed By: #### R PRQ #### [facility] [address] [address] [address] Jerry Samuel Anion gap [Moles/Vol] 8.5 mmol/L Normal [facility] Comment on above: Performed By: #### R PRQ #### [facility] [address] [place] [address] Dr. Jerry Samuel AST [Catalytic activity/Vol] 12 U/L Critically low 15-37 [facility] Comment on above: Performed By: #### R PRQ #### [facility] [address] [address] [address] Jerry Samuel Bilirubin [Mass/Vol] 0.3 mg/dL Normal 0.2-1.0 [facility] Comment on above: Performed By: #### R PRQ #### [facility] [address] [place] [address] Dr. Jerry Samuel Calcium [Mass/Vol] 9.2 mg/dL Normal 8.5-10.1 [facility] Comment on above: Performed By: #### R PRQ #### [facility] [address] [address] [address] Jerry Samuel Chloride [Moles/Vol] 105 mmol/L Normal 98-107 [facility] Comment on above: Performed By: #### R PRQ #### [facility] [address] [address] [address] Jerry Samuel CO2 [Moles/Vol] 25.0 mmol/L Normal 21.0-32.0 [facility] Comment on above: Performed By: #### R PRQ #### [facility] [address] [place] [address] Dr. Jerry Samuel Creatinine [Mass/Vol] 0.40 mg/dL Critically low 0.55-1.02 [facility] Comment on above: Performed By: #### R PRQ #### [facility] [address] [place] [address] Dr. Jerry Samuel EGFR-AF JAPANESE >60 Normal >=60 [facility] Comment on above: Performed By: #### R PRQ #### [facility] [address] [place] [address] Dr. Jerry Samuel EGFR-NON AF JAPANESE >60 Normal >=60 [facility] Comment on above: Performed By: #### R PRQ #### [facility] [address] [place] [address] Dr. Jerry Samuel Globulin (S) [Mass/Vol] 3.5 g/dL Normal [facility] Comment on above: Performed By: #### R PRQ #### [facility] [address] [place] [address] Dr. Jerry Samuel Glucose [Mass/Vol] 94 mg/dL Normal 74-106 [facility] Comment on above: Performed By: #### R PRQ #### [facility] [address] [place] [address] Dr. Jerry Samuel Potassium [Moles/Vol] 3.5 mmol/L Normal 3.5-5.1 [facility] Comment on above: Performed By: #### R PRQ #### [facility] [address] [place] [address] Dr. Jerry Samuel Protein [Mass/Vol] 6.9 g/dL Normal 6.4-8.2 [facility] Comment on above: Performed By: #### R PRQ #### [facility] [address] [place] [address] Dr. Jerry Samuel Sodium [Moles/Vol] 135 mmol/L Critically low 136-145 [facility] Comment on above: Performed By: #### R PRQ #### [facility] [address] [place] [address] Dr. Jerry Samuel Urea nitrogen [Mass/Vol] 6.0 mg/dL Critically low 7.0-18.0 [facility] Comment on above: Performed By: #### R PRQ #### [facility] [address] [place] [address] Dr. Jerry Samuel Urea nitrogen/Creatinine [Mass ratio] 15.0 mg/mg Normal [facility] Comment on above: Performed By: #### R PRQ #### [facility] [address] [place] [address] Dr. Jerry Samuel DOROTEO BOX TEST PT SEND OUTo n 05-02-2022 SENT TO REF LAB 05/02/2022 Normal [facility] Comment on above: Performed By: #### N BOX #### [facility] [address] [place] [address] Dr. Jerry Samuel HEP B SURFACE ANTIGEN SCREEN on 04-05-2022 HBsAg Screen Negative Normal Negative [facility] Comment on above: Performed By: #### N BOX #### [facility] [address] [place] [address] Dr. Jerry Samuel HEPATITIS C VIRUS AB W/ REFL EX QUANTon 04-05-2022 HCV AB <0.1 Normal 0.0-0.9 [facility] Comment on above: Performed By: #### H CVPCRR #### [facility] [address] [place] [address] Dr. Jerry Samuel Interpretation: Comment Normal [facility] Comment on above: Result Comment: Nega tive Not infected with HCV, unless recent infection is suspected or other evidence exists to indicate HCV infection. Performed By: #### H CVPCRR #### [facility] [address] [place] [address] Dr. Jerry Samuel HIV 1 AND 2 WITH REFLEXon HIV Screen 4th Generation wRfx Non-Reactive Normal Non Reactive [facility] Comment on above: Result Comment: HIV Negative HIV-1/HIV-2 antibodies and HIV-1 p24 antigen were NOT detected. There is no laboratory evidence of HIV infection. Performed By: #### R PRQ #### [facility] [address] [place] [address] Dr. Jrery Samuel RPR QUANTon 04-05-2022 Rapid Plasma Reagin, Quant Non-Reactive Normal NonRea<1:1 [facility] Comment on above: Result Comment: Nathaly wilkes Note: This test does not meet current guidelines for screening and diagnosis of syphilis. This test is intended for following treatment response in patients being treated for syphilis infection. To screen for syphilis infection, a reflex cascade that includes both RPR and a treponema-specific assay should be utilized, such as Treponema pallidum (Syphilis) Screening Vance (696915) or Rapid Plasma Reagin (RPR) Test With Reflex to Quantitative RPR and Confirmatory Treponema pallidum Antibodies (170977). Performed By: #### R PRQ #### [facility] [address] [place] [address] Dr. Jerry Samuel RUBELLA AB IGGon 04-05-2022 Rubella Antibodies, IgG 1.97 index Normal Immune >0.99 [facility] Comment on above: Result Comment: Non- immune <0.90 Equivocal 0.90 - 0.99 Immune >0.99 Performed By: #### R UBIGG #### [facility] [address] [place] [address] Dr. Jerry Samuel CBC AUTO DIFFon 04-04-2022 BASO # 0.0 103/ul Normal 0.0-0.1 [facility] Comment on above: Performed By: #### R PRQ #### [facility] [address] [place] [address] Dr. Jerry Samuel Basophils/100 WBC (Bld) 0.3 % Normal 0.2-2.0 [facility] Comment on above: Performed By: #### R PRQ #### [facility] [address] [place] [address] Dr. Jerry Samuel EO # 0.1 103/ul Normal 0.0-0.7 [facility] Comment on above: Performed By: #### R PRQ #### [facility] [address] [place] [address] Dr. Jerry Samuel Eosinophils/100 WBC (Bld) 0.7 % Critically low 0.9-7.0 [facility] Comment on above: Performed By: #### R PRQ #### [facility] [address] [place] [address] Dr. Jerry Samuel Erythrocyte distribution width (RBC) [Ratio] 12.3 % Normal 11.0-15.0 [facility] Comment on above: Performed By: #### R PRQ #### [facility] [address] [place] [address] Dr. Jerry Samuel Hematocrit (Bld) [Volume fraction] 35.1 % Critically low 36.0-48.0 [facility] Comment on above: Performed By: #### R PRQ #### [facility] [address] [place] [address] Dr. Jerry Samuel Hemoglobin (Bld) [Mass/Vol] 11.8 g/dL Critically low 12.0-16.0 [facility] Comment on above: Performed By: #### R PRQ #### [facility] [address] [place] [address] Dr. Jerry Samuel IG # 0.02 10e3/ul Normal 0.00-0.03 [facility] Comment on above: Performed By: #### R PRQ #### [facility] [address] [place] [address] Dr. Jerry Samuel IG % 0.3 % Normal 0.0-0.5 [facility] Comment on above: Performed By: #### R PRQ #### [facility] [address] [place] [address] Dr. Jerry Samuel LYMPH # 2.0 103/ul Normal 1.2-3.8 [facility] Comment on above: Performed By: #### R PRQ #### [facility] [address] [place] [address] Dr. Jerry Samuel Lymphocytes/100 WBC (Bld) 26.7 % Normal 20.5-60.0 [facility] Comment on above: Performed By: #### R PRQ #### [facility] [address] [place] [address] Dr. Jerry Samuel MANUAL DIFF REQ NO Normal [facility] Comment on above: Performed By: #### R PRQ #### [facility] [address] [address] [address] Jerry Samuel MCH (RBC) [Entitic mass] 29.0 pg Normal 26.7-34.0 [facility] Comment on above: Performed By: #### R PRQ #### [facility] [address] [place] [address] Dr. Jerry Samuel MCHC (RBC) [Mass/Vol] 33.6 g/dL Normal 29.9-35.2 [facility] Comment on above: Performed By: #### R PRQ #### [facility] [address] [place] [address] Dr. Jerry Samuel MCV (RBC) [Entitic vol] 86.2 fL Normal 81.0-99.0 [facility] Comment on above: Performed By: #### R PRQ #### [facility] [address] [place] [address] Dr. Jerry Samuel MONO # 0.5 103/ul Normal 0.3-0.8 [facility] Comment on above: Performed By: #### R PRQ #### [facility] [address] [place] [address] Dr. Jerry Samuel Monocytes/100 WBC (Bld) 6.7 % Normal 1.7-12.0 [facility] Comment on above: Performed By: #### R PRQ #### [facility] [address] [place] [address] Dr. Jerry Samuel NEUT # 4.9 103/ul Normal 1.4-6.5 [facility] Comment on above: Performed By: #### R PRQ #### [facility] [address] [place] [address] Dr. Jerry Samuel Neutrophils/100 WBC (Bld) 65.3 % Normal 43.0-75.0 [facility] Comment on above: Performed By: #### R PRQ #### [facility] [address] [place] [address] Dr. Jerry Samuel Platelet mean volume (Bld) [Entitic vol] 10.0 fL Normal 9.5-13.5 [facility] Comment on above: Performed By: #### R PRQ #### [facility] [address] [address] [address] Jerry Samuel PLT 218 103/ul Normal 150-450 [facility] Comment on above: Performed By: #### R PRQ #### [facility] [address] [address] [address] Jerry Samuel RBC 4.07 106/ul Critically low 4.20-5.40 [facility] Comment on above: Performed By: #### R PRQ #### [facility] [address] [address] [address] Jerry Samuel WBC 7.5 103/ul Normal 4.0-11.0 [facility] Comment on above: Performed By: #### R PRQ #### [facility] [address] [place] [address] Dr. Jerry Samuel CULTURE URINEon 04-04-2022 CULTURE URINE Culture Observations : NO GROWTH. Normal [facility] Comment on above: Performed By: #### N BOX #### [facility] [address] [address] [address] Jerry Samuel GLYCOHEMOGLOBIN A1Con 2021 ADA RECOMMENDATION SEE BELOW Normal [facility] Comment on above: Result Comment: ADA RECOMMENDED LIMIT 4.0 - 6.0 ADA THERAPEUTIC TARGET < 7.0 ACTION SUGGESTED > 7.0 Performed By: #### N BOX #### [facility] [address] [address] [address] Jerry Samuel Glucose [Mass/Vol] 97 mg/dL Normal [facility] Comment on above: Performed By: #### N BOX #### [facility] [address] [address] [address] Jerry Samuel HbA1c (Bld) [Mass fraction] 5.0 % Normal 4.5-6.2 [facility] [facility] Comment on above: Performed By: #### N BOX #### [facility] [address] [address] [address] Jerry Samuel TYPE AND SCREENon 04-04-2022 TYPE AND SCREEN Negative Normal [facility] Comment on above: Performed By: #### N BOX #### [facility] [address] [place] [address] Dr. Jerry Samuel US PREG TVon 04-04-2022 [...] EDITH WILLIS Date: 2022-04-04 16:13 Normal The [facility] PREG QUANT HCGon 03-07-2022 HCG QUANT 2201 mIU/mL Normal [facility] Comment on above: Performed By: #### R PRQ #### [facility] [address] [place] [address] Dr. Jerry Samuel HCG RANGE SEE BELOW Normal The [facility] Comment on above: Result Comment: 5-50 0.2-1 WEEK 50-500 1-2 WEEKS 100-5,000 2-3 WEEKS 500-10,000 3-4 WEEKS 1,000-50,000 4-5 WEEKS 10,000-100,000 5-6 WEEKS 15,000-200,000 6-8 WEEKS 10,000-100,000 2-3 MONTHS Performed By: #### R PRQ #### [facility] [address] [place] [address] Dr. Jerry Samuel PREG QUANT HCGon 03-05-2022 HCG QUANT 820 mIU/mL Normal [facility] Comment on above: Performed By: #### R PRQ #### [facility] [address] [place] [address] Dr. Jerry Samuel HCG RANGE SEE BELOW Normal The [facility] Comment on above: Result Comment: 5-50 0.2-1 WEEK 50-500 1-2 WEEKS 100-5,000 2-3 WEEKS 500-10,000 3-4 WEEKS 1,000-50,000 4-5 WEEKS 10,000-100,000 5-6 WEEKS 15,000-200,000 6-8 WEEKS 10,000-100,000 2-3 MONTHS Performed By: #### R PRQ #### [facility] [address] [place] [address] Dr. Jerry Samuel PAP ACOG PANEL 2: 22 to 29on 02-21-2022 . . [facility] Comment on above: Performed By: #### R PRQ #### [facility] [address] [place] [address] Dr. Jerry Samuel Age Gdln ACOG Testing - [facility] Comment on above: Performed By: #### R PRQ #### [facility] [address] [place] [address] Dr. Jerry Samuel DIAGNOSIS: Comment [facility] Comment on above: Result Comment: NEGA TIVE FOR INTRAEPITHELIAL LESION OR MALIGNANCY. SPECIMEN REPROCESSED FOR INTERPRETATION. Performed By: #### R PRQ #### [facility] [address] [address] [address] Jerry Samuel Methodology: Comment [facility] Comment on above: Result Comment: This liquid based ThinPrep(R) pap test was screened with the use of an image guided system. Performed By: #### R PRQ #### [facility] [address] [place] [address] Dr. Jerry Samuel Note: Comment [facility] Comment on above: Result Comment: The Pap smear is a screening test designed to aid in the detection of premalignant and malignant conditions of the uterine cervix. It is not a diagnostic procedure and should not be used as the sole means of detecting cervical cancer. Both false-positive and false-negative reports do occur. . Performed By: #### R PRQ #### [facility] [address] [place] [address] Dr. Jerry Samuel Performed by: Comment [facility] Comment on above: Result Comment: Anders Roman, Metal Stamping Machine Operator (ASCP) Performed By: #### R PRQ #### [facility] [address] [place] [address] Dr. Jerry Samuel Reflex Criteria: Comment Normal [facility] Comment on above: Result Comment: The HPV DNA reflex criteria were not met with this specimen result therefore, no HPV testing was performed. . Performed By: #### R PRQ #### [facility] [address] [place] [address] Dr. Jerry Samuel Specimen adequacy: Comment Normal [facility] Comment on above: Result Comment: Sati sfactory for evaluation. Endocervical and/or squamous metaplastic cells (endocervical component) are present. Performed By: #### R PRQ #### [facility] [address] [place] [address] Dr. Jerry Samuel US PELVIS AND TRANSVAGon [...] EDITH WILLIS Date: 2022-02-13 14:34 Normal The [facility] CBC AUTO DIFFon 02-12-2022 BASO # 0.0 103/ul Normal 0.0-0.1 [facility] Comment on above: Performed By: #### C BC #### [facility] [address] [place] [address] Dr. Jerry Samuel Basophils/100 WBC (Bld) 0.6 % Normal 0.2-2.0 [facility] Comment on above: Performed By: #### C BC #### [facility] [address] [place] [address] Dr. Jerry Samuel EO # 0.1 103/ul Normal 0.0-0.7 [facility] Comment on above: Performed By: #### C BC #### [facility] [address] [place] [address] Dr. Jerry Samuel Eosinophils/100 WBC (Bld) 1.2 % Normal 0.9-7.0 [facility] Comment on above: Performed By: #### C BC #### [facility] [address] [place] [address] Dr. Jerry Samuel Erythrocyte distribution width (RBC) [Ratio] 11.9 % Normal 11.0-15.0 [facility] Comment on above: Performed By: #### C BC #### [facility] [address] [place] [address] Dr. Jerry Samuel Hematocrit (Bld) [Volume fraction] 39.1 % Normal 36.0-48.0 [facility] Comment on above: Performed By: #### C BC #### [facility] [address] [place] [address] Dr. Jerry Samuel Hemoglobin (Bld) [Mass/Vol] 13.0 g/dL Normal 12.0-16.0 [facility] Comment on above: Performed By: #### C BC #### [facility] [address] [place] [address] Dr. Jerry Samuel IG # 0.01 10e3/ul Normal 0.00-0.03 [facility] Comment on above: Performed By: #### C BC #### [facility] [address] [place] [address] Dr. Jerry Samuel IG % 0.2 % Normal 0.0-0.5 The [facility] Comment on above: Performed By: #### C BC #### [facility] [address] [place] [address] Dr. Jerry Samuel LYMPH # 2.4 103/ul Normal 1.2-3.8 The [facility] Comment on above: Performed By: #### C BC #### [facility] [address] [place] [address] Dr. Jerry Samuel Lymphocytes/100 WBC (Bld) 37.7 % Normal 20.5-60.0 [facility] Comment on above: Performed By: #### C BC #### [facility] [address] [place] [address] Dr. Jerry Samuel MANUAL DIFF REQ NO Normal [facility] Comment on above: Performed By: #### C BC #### [facility] [address] [place] [address] Dr. Jerry Samuel MCH (RBC) [Entitic mass] 29.2 pg Normal 26.7-34.0 The [facility] Comment on above: Performed By: #### C BC #### [facility] [address] [place] [address] Dr. Jerry Samuel MCHC (RBC) [Mass/Vol] 33.2 g/dL Normal 29.9-35.2 [facility] Comment on above: Performed By: #### C BC #### [facility] [address] [place] [address] Dr. Jerry Samuel MCV (RBC) [Entitic vol] 87.9 fL Normal 81.0-99.0 [facility] Comment on above: Performed By: #### C BC #### [facility] [address] [place] [address] Dr. Jerry Samuel MONO # 0.4 103/ul Normal 0.3-0.8 [facility] Comment on above: Performed By: #### C BC #### [facility] [address] [place] [address] Dr. Jerry Samuel Monocytes/100 WBC (Bld) 5.9 % Normal 1.7-12.0 The [facility] Comment on above: Performed By: #### C BC #### [facility] [address] [place] [address] Dr. Jerry Samuel NEUT # 3.5 103/ul Normal 1.4-6.5 The [facility] Comment on above: Performed By: #### C BC #### [facility] [address] [place] [address] Dr. Jerry Samuel Neutrophils/100 WBC (Bld) 54.4 % Normal 43.0-75.0 [facility] Comment on above: Performed By: #### C BC #### [facility] [address] [place] [address] Dr. Jerry Samuel Platelet mean volume (Bld) [Entitic vol] 9.9 fL Normal 9.5-13.5 [facility] Comment on above: Performed By: #### C BC #### [facility] [address] [place] [address] Dr. Jerry Samuel PLT 229 103/ul Normal 150-450 [facility] Comment on above: Performed By: #### C BC #### [facility] [address] [place] [address] Dr. Jerry Samuel RBC 4.45 106/ul Normal 4.20-5.40 [facility] Comment on above: Performed By: #### C BC #### [facility] [address] [place] [address] Dr. Jerry Samuel WBC 6.5 103/ul Normal 4.0-11.0 [facility] Comment on above: Performed By: #### C BC #### [facility] [address] [place] [address] Dr. Jerry Samuel FREE T4on 02-12-2022 Free T4 [Mass/Vol] 0.99 ng/dL Normal 0.76-1.46 [facility] Comment on above: Performed By: #### R PRQ #### [facility] [address] [place] [address] Dr. Jerry Samuel GLYCOHEMOGLOBIN A1Con 2021 ADA RECOMMENDATION SEE BELOW Normal [facility] Comment on above: Result Comment: ADA RECOMMENDED LIMIT 4.0 - 6.0 ADA THERAPEUTIC TARGET < 7.0 ACTION SUGGESTED > 7.0 Performed By: #### R PRQ #### [facility] [address] [place] [address] Dr. Jerry Samuel Glucose [Mass/Vol] 103 mg/dL Normal [facility] Comment on above: Performed By: #### R PRQ #### [facility] [address] [place] [address] Dr. Jerry Samuel HbA1c (Bld) [Mass fraction] 5.2 % Normal 4.5-6.2 [facility] Comment on above: Performed By: #### R PRQ #### [facility] [address] [place] [address] Dr. Jerry Samuel PROTIMEon 02-12-2022 INR Coag (PPP) [Relative time] 1.00 {INR} Normal The [facility] Comment on above: Performed By: #### N BOX #### [facility] [address] [place] [address] Dr. Jerry Samuel INR GUIDELINES SEE BELOW Normal The [facility] Comment on above: Result Comment: SACHA RED INR: 2.0 - 3.0 CONDITIONS NOT LISTED BELOW 2.5 - 3.5 FOR PROSTHETIC HEART VALVE REPLACEMENT 2.5 - 3.5 RECURRENT THROMBOSIS Performed By: #### N BOX #### [facility] [address] [place] [address] Dr. Jerry Samuel PT Coag (PPP) [Time] 10.8 s Normal 9.0-11.6 [facility] Comment on above: Performed By: #### N BOX #### [facility] [address] [place] [address] Dr. Jerry Samuel PTTon 02-12-2022 aPTT Coag (Bld) [Time] 27.8 s Normal 22.3-36.2 [facility] Comment on above: Performed By: #### N BOX #### [facility] [address] [place] [address] Dr. Jerry Samuel TSHon 02-12-2022 TSH 1.741 uIU/mL Normal 0.358-3.740 [facility] Comment on above: Performed By: #### T SH #### [facility] [address] [place] [address] Dr. Jerry Samuel [facility] 11-20-2021 Outside Records [id number]-16-2021 Outside Records [id number] [facility] Vital Signs Date Time Vital Sign Value Performing Clinician Facility 11-17-2024 09:29-0400 Body height 164.47 cm Britt Kimberly KATHLEEN Work Phone: [facility] 11-17-2024 09:29-0400 Body mass index (BMI) [Ratio] 28 kg/m2 Britt Kimberly BUSINESS ANALYSIS CONSULTANT Work Phone: [facility] 11-17-2024 09:29-0400 Body temperature 97.6 [degF] Britt Kimberly CRUMN Work Phone: [facility] 11-17-2024 09:29-0400 Body weight 75.74 kg Britt Kimberly CRUMN Work Phone: [facility] 11-17-2024 09:29-0400 Diastolic blood pressure 64 mm[Hg] Britt Kimberly BUSINESS ANALYSIS CONSULTANT Work Phone: [facility] 11-17-2024 09:29-0400 Heart rate 91 /min Britt Kimberly CRUMN Work Phone: [facility] 11-17-2024 09:29-0400 SaO2% (BldA) [Mass fraction] 97 % Britt Harris APRN Work Phone: [facility] 11-17-2024 09:29-0400 Systolic blood pressure 118 mm[Hg] Britt Harris APRN Work Phone: [facility] 09-08-2024 14:13-0400 Body height 164.47 cm Jennifer Marker DO Work Phone: [facility] 09-08-2024 14:13-0400 Body mass index (BMI) [Ratio] 28.5 kg/m2 Jennifer Marker DO Work Phone: [facility] 09-08-2024 14:13-0400 Body weight 77.11 kg Jennifer Marker DO Work Phone: [facility] 09-08-2024 14:13-0400 Diastolic blood pressure 80 mm[Hg] Jennifer Marker DO Work Phone: [facility] 09-08-2024 14:13-0400 Heart rate 71 /min Jennifer Marker DO Work Phone: [facility] 09-08-2024 14:13-0400 Systolic blood pressure 135 mm[Hg] Jennifer Marker DO Work Phone: [facility] 07-05-2024 15:29-0400 Body mass index (BMI) [Ratio] 28.55 kg/m2 Asif Nova DO Work Phone: [facility] 07-05-2024 15:29-0400 Body weight 85.19 kg Asif Nova DO Work Phone: [facility] 07-05-2024 15:29-0400 Diastolic blood pressure 78 mm[Hg] Asif Nova DO Work Phone: [facility] 07-05-2024 15:29-0400 Systolic blood pressure 118 mm[Hg] Asif Nova DO Work Phone: [facility] 06-07-2024 15:03-0500 Body mass index (BMI) [Ratio] 28.86 kg/m2 Asif Nova DO Work Phone: [facility] 06-07-2024 15:03-0500 Body weight 86.09 kg Asif Nova DO Work Phone: [facility] 06-07-2024 15:03-0500 Diastolic blood pressure 70 mm[Hg] Asif Nova DO Work Phone: [facility] 06-07-2024 15:03-0500 Systolic blood pressure 112 mm[Hg] Asif Nova DO Work Phone: [facility] 05-24-2024 14:28-0500 Body mass index (BMI) [Ratio] 29.32 kg/m2 Asif Nova DO Work Phone: [facility] 05-24-2024 14:28-0500 Body weight 87.45 kg Asif Nova DO Work Phone: [facility] 05-24-2024 14:28-0500 Diastolic blood pressure 70 mm[Hg] Asif Nova DO Work Phone: [facility] 05-24-2024 14:28-0500 Systolic blood pressure 120 mm[Hg] Asif Nova DO Work Phone: [facility] 05-11-2024 13:15-0500 Body mass index (BMI) [Ratio] 29.19 kg/m2 Kirsty Eliceo PA Work Phone: [facility] 05-11-2024 13:15-0500 Body weight 87.09 kg Kirsty Eliceo PA Work Phone: [facility] 05-11-2024 13:15-0500 Diastolic blood pressure 60 mm[Hg] Kirsty Eliceo PA Work Phone: [facility] 05-11-2024 13:15-0500 Systolic blood pressure 110 mm[Hg] Kirsty Eliceo PA Work Phone: [facility] 04-27-2024 12:18-0500 Body mass index (BMI) [Ratio] 29.8 kg/m2 Asif Nova DO Work Phone: [facility] 04-27-2024 12:18-0500 Body weight 88.91 kg Asif Nova DO Work Phone: [facility] 04-27-2024 12:18-0500 Diastolic blood pressure 62 mm[Hg] Asif Nova DO Work Phone: [facility] 04-27-2024 12:18-0500 Systolic blood pressure 106 mm[Hg] Asif Nova DO Work Phone: [facility] 04-05-2024 13:24-0500 Body mass index (BMI) [Ratio] 30.38 kg/m2 Kirsty Siu JOSIAH Work Phone: [facility] 04-05-2024 13:24-0500 Body weight 90.63 kg Kirsty Siu PA Work Phone: [facility] 04-05-2024 13:24-0500 Diastolic blood pressure 64 mm[Hg] Kirsty Siu PA Work Phone: [facility] 04-05-2024 13:24-0500 Systolic blood pressure 104 mm[Hg] Kirsty Siu PA Work Phone: [facility] 03-08-2024 16:52-0500 Body mass index (BMI) [Ratio] 30.62 kg/m2 Asif Nova DO Work Phone: [facility] 03-08-2024 16:52-0500 Body weight 91.35 kg Asif Nova DO Work Phone: [facility] 03-08-2024 16:52-0500 Diastolic blood pressure 74 mm[Hg] Asif Nova DO Work Phone: [facility] 03-08-2024 16:52-0500 Systolic blood pressure 116 mm[Hg] Asif Nova DO Work Phone: [facility] 02-09-2024 16:03-0500 Body mass index (BMI) [Ratio] 30.11 kg/m2 Asif Nova DO Work Phone: [facility] 02-09-2024 16:03-0500 Body weight 89.81 kg Asif Nova DO Work Phone: [facility] 02-09-2024 16:03-0500 Diastolic blood pressure 70 mm[Hg] Asif Nova DO Work Phone: [facility] 02-09-2024 16:03-0500 Systolic blood pressure 118 mm[Hg] Asif Nova DO Work Phone: [facility] 01-07-2024 15:50-0400 Body mass index (BMI) [Ratio] 29.97 kg/m2 Asif Nova DO Work Phone: [facility] 01-07-2024 15:50-0400 Body weight 89.41 kg Asif Nova DO Work Phone: [facility] 01-07-2024 15:50-0400 Diastolic blood pressure 72 mm[Hg] Asif Nova DO Work Phone: [facility] 01-07-2024 15:50-0400 Systolic blood pressure 106 mm[Hg] Asif Nova DO Work Phone: [facility] 12-17-2023 11:17-0400 Body mass index (BMI) [Ratio] 30.33 kg/m2 Kirsty Eliceo PA Work Phone: [facility] 12-17-2023 11:17-0400 Body weight 90.49 kg Kirsty Eliceo PA Work Phone: [facility] 12-17-2023 11:17-0400 Diastolic blood pressure 70 mm[Hg] Kirsty Eliceo PA Work Phone: [facility] 12-17-2023 11:17-0400 Systolic blood pressure 104 mm[Hg] Kirsty Brent PA Work Phone: [facility] 12-12-2023 09:34-0400 Body mass index (BMI) [Ratio] 30.41 kg/m2 [facility] Nurse [facility] 12-12-2023 09:34-0400 Body weight 90.72 kg Noms Nurse [facility] 12-12-2023 09:34-0400 Diastolic blood pressure 80 mm[Hg] Noms Nurse [facility] 12-12-2023 09:34-0400 Systolic blood pressure 120 mm[Hg] [facility] 03-26-2023 13:45-0500 Body height 164.47 cm Ben Rose Other [facility] Other 03-26-2023 13:45-0500 Body mass index (BMI) [Ratio] 29.6 kg/m2 Ben Rose Other [facility] Other 03-26-2023 13:45-0500 Body weight 80.06 kg Ben Aldrichrigobertoaugusto Other [facility] Other 03-26-2023 13:45-0500 Diastolic blood pressure 74 mm[Hg] Ben Moralesy Other [facility] Other 03-26-2023 13:45-0500 Systolic blood pressure 120 mm[Hg] Ben Rose Other [facility] Other 06-14-2022 17:07-0500 Body weight 79.[address] ASIF BHATT . [facility] Comment on above: Performed By: #### RPRQ #### [facility] [address] [place] [address] Dr. Jerry Samuel 03-08-2022 11:15-0500 Body height 164.47 cm Ben Ditty Other [facility] Other 03-08-2022 11:15-0500 Body mass index (BMI) [Ratio] 29.01 kg/m2 Ben Elinorvitaliy Other [facility] Other 03-08-2022 11:15-0500 Body weight 78.47 kg Ben Rose Other [facility] Other 03-08-2022 11:15-0500 Diastolic blood pressure 73 mm[Hg] Ben Elinorrigobertoy Other [facility] Other 03-08-2022 11:15-0500 Systolic blood pressure 113 mm[Hg] Ben Elinortty Other [employer] Other Encounters Encounter Date Encounter Type Care Provider Facility Start: 11-17-2024 End: 11-17-2024 ambulatory Britt Kimberly KATHLEEN Work Phone: [facility] Work Phone: Start: 11-17-2024 End: 11-17-2024 Patient encounter procedure Britt Kimberly KATHLEEN [facility] Work Phone: Start: 09-08-2024 End: 09-08-2024 ambulatory Jennifer Marker DO Work Phone: [facility] Work Phone: Start: 09-08-2024 End: 09-08-2024 Patient encounter procedure Jennifer Marker DO Work Phone: [facility] Work Phone: Start: 07-14-2024 Non-patient / Non-visit Meliss a Marker DO Work Phone: [facility] Work Phone: Start: 07-14-2024 End: 07-14-2024 ambulatory Jennifer Jeri Marker [facility] Work Phone: Start: 07-14-2024 End: 07-14-2024 Departed Referred Jennifer Marker DO Work Phone: [facility] Start: 07-14-2024 Non-patient / Non-visit Meliss a Marker DO Work Phone: [facility] Work Phone: Start: 07-05-2024 End: 07-05-2024 ambulatory ASIF NOVA Not Available Start: 07-05-2024 End: 07-05-2024 Postop follow up visit related to original px Asif Nova DO Work Phone: [facility] Comment on above: S/P ; Anxiety Start: 07-01-2024 Non-patient / Non-visit Meliss a Marker DO Work Phone: [facility] Work Phone: Start: 06-30-2024 Non-patient / Non-visit Meliss a Marker DO Work Phone: [facility] Work Phone: Start: 06-29-2024 End: 06-29-2024 Clinisync Result Encounter Asif Nova DO Work Phone: [facility] External Department Unsolicited Start: 06-29-2024 End: 06-29-2024 Clinisync Result Encounter Asif Nova DO Work Phone: [facility] External Department Unsolicited Start: 06-29-2024 Non-patient / Non-visit Meliss a Marker DO Work Phone: [facility] Work Phone: Start: 06-28-2024 End: 06-28-2024 ambulatory ASIF NOVA Not Available Start: 06-21-2024 Non-patient / Non-visit Meliss a Marker DO Work Phone: [facility] Work Phone: Start: 06-21-2024 End: [...] Result Encounter Asif Nova DO Work Phone: [facility] External Department Unsolicited Start: 02-09-2024 End: 02-09-2024 Patient encounter procedure Asif Nova DO Work Phone: [facility] Start: 02-09-2024 End: 02-09-2024 flow sheet Asif Nova DO Work Phone: [facility] Comment on above: Second trimester pre gnancy; 17 weeks gestation of ; Well woman exam with routine gynecological exam; Exposure to STD; MSAFP (maternal serum alpha-fetoprotein) decreased; Screening, , for anatomic survey Start: 02-09-2024 End: 02-09-2024 ambulatory ASIF NOVA Not Available Start: 02-09-2024 End: 02-09-2024 Bamboo flowsheet Asif Nova DO Work Phone: [facility] Start: 02-09-2024 End: 02-11-2024 Bamboo flowsheet Asif Nova DO Work Phone: [facility] Start: 02-09-2024 End: 02-11-2024 External Result Encounter Kirsty Silverey PA Work Phone: [facility] External Department Unsolicited Start: 01-08-2024 End: 01-08-2024 Clinisync Result Encounter Asif Nova DO Work Phone: [facility] External Department Unsolicited Start: 01-08-2024 End: 01-08-2024 Clinisync Result Encounter Asif Nova DO Work Phone: [facility] External Department Unsolicited Start: 01-07-2024 End: 01-07-2024 flow sheet Asif Nova DO Work Phone: [facility] Comment on above: First [...] encounter status Jennifer Marker DO Work Phone: [facility] Start: 03-26-2023 End: 03-26-2023 ambulatory Ben Rose Other [facility] Other Start: 03-26-2023 Patient encounter procedure Ben Rose [facility] Start: 01-24-2023 End: 01-24-2023 ambulatory Ben Rose Other [facility] Other Start: 01-24-2023 Telephone encounter Ben FORD [...] 03-08-2022 End: 03-08-2022 ambulatory Ben Rose Other [facility] Other Start: 03-08-2022 Patient encounter procedure Ben [...] 11-06-2021 End: 11-06-2021 ambulatory Angeles A Mikael ADULT CARE MANAGER-C Facility:[facility] Start: 11-05-2021 End: 08-02-2022 ambulatory Angeles A Mikael ADULT CARE MANAGER-C Facility:[facility] IC Procedures Date Procedure Procedure Detail Performing Clinician Start: 07-14-2024 Urine culture Jennifer dunbar DO Work Phone: Start: 07-05-2024 Urnls dip stick/tabl et rgnt non-auto w/o micrscp Asif Nova DO Work Phone: Start: 06-29-2024 [facility] (CLEAN/CATCH) TELEPHONE SALES REPRESENTATIVE/MICRO IF IND. Asif Nova DO Work Phone: [...] Visit [facility] [address] [place] [address] Kirsty Siu PA [address] [place] [address] [facility] Start: 07-14-2024 Bacteria identified in Urine by Culture Urine Culture [facility] Start: 07-14-2024 Urine culture [facility] Start: 07-05-2024 End: 07-05-2024 Patient encounter procedure 07/05/2024 3:00 PM EDT Routine [facility] [address] [place] [address] Asif Bhatt, DO [address] [place] [address] [facility] Start: 06-21-2024 End: 06-21-2024 Patient encounter procedure 06/21/2024 1:50 PM EDT Routine [facility] [address] [place] [phone] Kirsty Siu PA [address] [place] [address] [facility] Start: 06-07-2024 End: 06-07-2024 Patient encounter procedure 06/07/2024 2:40 PM EST Routine [facility] [address] [place] [id number] Aisf Bhatt, [address] [place] [address] [facility] Start: 05-24-2024 End: 05-24-2024 Patient encounter procedure 05/24/2024 2:40 PM EST Routine [facility] [address] [place] [phone] Asif Bhatt, [address] [place] [place] [address] [facility] Start: 05-24-2024 End: 05-24-2024 Professional / ancillary services management 05/24/2024 2:00 PM EST Ancillary Procedure [facility] [address] [place] [address] [facility] Start: 05-11-2024 End: 05-11-2025 US for US OB follow up transabdominal approach Imaging Routine size inconsistent with dates Expected: 05/11/2024, Expires: 05/11/2025 [facility] Work Phone: Comment on above: Expected: 05/11/2024 , Expires: 05/11/2025 Start: 05-11-2024 End: 05-11-2024 Patient encounter procedure 05/11/2024 1:00 PM EST Routine [facility] [address] [facility] [place] [address] Asif Bhatt, DO [address] [place] [address] [facility] Start: 04-27-2024 End: 04-27-2024 Patient encounter procedure 04/27/2024 11:20 AM EST Routine [facility] [address] [facility] [place] [address] Asif Bhatt, DO [address] [place] [address] [facility] Start: 04-05-2024 End: 04-05-2025 CBC panel - Blood by Automated count CBC Lab Routine 25 weeks gestation of Second trimester Diabetes mellitus screening Expected: 04/05/2024 (Approximate), Expires: 04/05/2025 [facility] Work Phone: Comment on above: Expected: 04/05/2024 (Approximate), Expires: 04/05/2025 Start: 04-05-2024 End: 04-05-2025 Measurement of glucose 1 hour after glucose challenge for glucose tolerance test Glucose tolerance, 1 hour Lab Routine 25 weeks gestation of Second trimester Diabetes mellitus screening Expected: 04/05/2024 (Approximate), Expires: 04/05/2025 [facility] Comment on above: Expected: 04/05/2024 (Approximate), Expires: 04/05/2025 Start: 04-05-2024 End: 04-05-2024 Patient encounter procedure [facility] Comment on above: Arrived Start: 03-10-2024 End: 03-10-2024 Alpha fetoprotein, maternal Alpha fetoprotein, maternal Lab Routine MSAFP (maternal serum alpha-fetoprotein) decreased Expected: 03/10/2024 (Approximate), Expires: 03/10/2024 [facility] Comment on above: Expected: 03/10/2024 (Approximate), Expires: 03/10/2024 Start: 03-08-2024 End: 03-08-2024 Patient encounter procedure 03/08/2024 3:50 PM EST Routine [facility] [address] [facility] [place] [id number] Asif Bhatt DO [address] [place] [address] [facility] Start: 03-01-2024 End: 03-01-2024 Professional / ancillary services management 03/01/2024 1:30 PM EST Ancillary Procedure [facility] [address] [place] [phone] [facility] Start: 02-09-2024 End: 02-09-2024 [...] EDT Office Visit [facility] [address] [facility] [place] [address] Kirsty Siu PA [address] [facility] [place] [address] Arrived [facility] Comment on above: [...] Missed menses Expected: 12/12/2023 (Approximate), Expires: 12/11/2024 [facility] Comment on above: Expected: 12/12/2023 (Approximate), Expires: 12/11/2024 Bacteria identified in Urine by Culture Urine culture Microbiology Routine Missed menses Ordered: 12/12/2023 [facility] Comment on above: Ordered: 12/12/2023 CBC W Auto Different ial panel - Blood CBC and differential Lab Routine Nausea and vomiting during Dizziness Ordered: 01/07/2024 [facility] Work Phone: Comment on above: Ordered: 01/07/2024 CBC W Auto Different ial panel - Blood CBC and differential Lab Routine Missed menses Ordered: 12/12/2023 [facility] Comment on above: Ordered: 12/12/2023 CHLAMYDIA TRACHOMATI S (GENITO/STI) CHLAMYDIA TRACHOMATIS (GENITO/STI) Lab Routine Exposure to STD Ordered: 02/09/2024 [facility] Comment on above: Ordered: 02/09/2024 Hemoglobin A1c/Hemoglobin.total in Blood Hemoglobin A1c Lab Routine Missed menses Ordered: 12/12/2023 [facility] Comment on above: Ordered: 12/12/2023 Hepatitis B virus surface Ag [Presence] in Serum or Plasma by Immunoassay Hepatitis B surface antigen Lab Routine Missed menses Ordered: 12/12/2023 [facility] Comment on above: Ordered: 12/12/2023 Hepatitis C virus Ab [Presence] in Serum or Plasma by Immunoassay Hepatitis C antibody Lab Routine Missed menses Ordered: 12/12/2023 [facility] Comment on above: Ordered: 12/12/2023 HIV-1/HIV-2 antigen/antibody combination immunoassay HIV-1 and HIV-2 antibodies Lab Routine Missed menses Ordered: 12/12/2023 [facility] Comment on above: Ordered: 12/12/2023 Neisseria gonorrhoea e DNA [Presence] in Unspecified specimen by ELINOR with probe detection Neisseria gonorrhea DNA probe, direct Lab Routine Exposure to STD Ordered: 02/09/2024 [facility] Comment on above: Ordered: 02/09/2024 Reagin Ab [Presence] in Serum by RPR RPR Lab Routine Missed menses Ordered: 12/12/2023 [facility] Comment on above: Ordered: 12/12/2023 Rubella antibody, IgG Rubella an tibody, IgG Lab Routine Missed menses Ordered: 12/12/2023 [facility] Comment on above: Ordered: 12/12/2023 SURESWAB(R) ADVANCED VAGINITIS PLUS, TMA SURESWAB(R) ADVANCED VAGINITIS PLUS, TMA Pathology and Cytology Routine Exposure to STD Ordered: 02/09/2024 [facility] Work Phone: Comment on above: Ordered: 02/09/2024 [facility] Immunizations Immunization Date Immunization Notes Care Provider Michael albright 11-08-2014 human papilloma viru s vaccine, quadrivalent Ben Rose Other [facility] Payers Date Payer Category Payer Blue Cross Blue Shield [id number] 2022 Unknown BCBS BCBS xxxxxx [id number] 2022-Present [phone] [address] [place] [address] [id number] 2022 Unknown [id number] 2021 Unknown [id number] 1996 Unknown [id number] 2.16.840.1.844511.3.579.2.718 1996 Unknown [id number] 2.16.840.1.577561.3.579.2.718 1996 Unknown [id number] 2.16.840.1.215113.3.579.2.593 1996 Unknown [id number] 2.16.840.1.639613.3.579.2.593 1996 Unknown [id number] 2.16.840.1.744422.3.579.2.593 1996 Unknown [id number] 2.16.840.1.111308.3.579.2.593 1996 Unknown [id number] 2.16.840.1.805514.3.579.2.593 1996 Unknown [id number] 2.16.840.1.507102.3.579.2.593 1996 Unknown [id number] 2.16.840.1.926949.3.579.2.593 1996 Unknown [id number] 2.16.840.1.654872.3.579.2.593 1996 Unknown [id number] 2.16.840.1.367874.3.579.2.593 1996 Unknown [id number] 2.16.840.1.569564.3.579.2.593 1996 Unknown [id number] 2.16.840.1.246291.3.579.2.593 1996 Unknown [id number] 2.16.840.1.472515.3.579.2.593 1996 Unknown [id number] 2.16.840.1.855187.3.579.2.593 1996 Unknown [id number] 2.16.840.1.670179.3.579.2.593 1996 Unknown [id number] 2.16.840.1.667173.3.579.2.593 1996 Unknown [id number] 2.16.840.1.317661.3.579.2.125 9 1996 Unknown [id number] 2.16.840.1.326841.3.579.2.125 9 1996 Unknown [id number] 2.16.840.1.770998.3.579.2.125 9 1996 Unknown [id number] 2.16.840.1.184494.3.579.2.125 9 1996 Unknown [id number] 2.16.840.1.343942.3.579.2.125 9 1996 Unknown [id number] 2.16.840.1.242107.3.579.2.125 9 1996 Unknown [id number] 2.16.840.1.386130.3.579.2.125 9 1996 Unknown [id number] 2.16.840.1.233812.3.579.2.125 9 1996 Unknown [id number] 2.16.840.1.023451.3.579.2.125 1996 Unknown [id number] 2.16.840.1.873783.3.579.2.125 1996 Unknown [id number] 2.16.840.1.048026.3.579.2.125 1996 Unknown [id number] 2.16.840.1.957086.3.579.2.125 1996 Unknown [id number] 2.16.840.1.770025.3.579.2.125 1996 Unknown [id number] 2.16.840.1.219983.3.579.2.125 1959 Self-pay 1959 Unknown [id number] 2.16.840.1.256696. 1959 Unknown [id number] 2.16.840.1.354271. 1959 Unknown [id number] 1959 Unknown [id number] Unknown [id number] 2.16.840.1.737604.3.579.2.593 Unknown [employer] [id number] Unknown [id number] 2.16.840.1.045491.3.579.2.531 Social History Date Type Detail Facility Unknown if ever smoked [facility] Other Start: 03-27-2023 End: 12-12-2023 Sex Assigned At [facility] Other Start: 02-22-2021 End: 09-17-2022 Tobacco smoking status ARIS Never smoked tobacco [facility] Start: 09-17-2022 Tobacco use and exposure Smokeless tobacco non-user [facility] Start: 12-17-2023 End: 07-05-2024 Alcoholic beverage intake Lifetime non-drinker (finding) [facility] Start: 03-27-2023 End: 12-12-2023 History of Social function [facility] Start: 10-27-2023 [facility] Start: 1995 Sex assigned at Not on file [facility] Start: 07-15-2024 End: 09-08-2024 Sex Female (finding) [facility] Start: 1995 Sex Assigned At Female [facility] NEGATED: Highlighted row N [facility] Clinical Notes 03-08-2022 to 09-08-2024 Note Date & Type Note Facility 09-08-2024 Evaluation note Diagnosis Onset Date Resolution Chronic GERD acute September 08 2:10pm Anxiety acute November 17, 2 025 9:26am Easy bruising acute November 9:26am Hair thinning acute November 9:26am [facility] Work Phone: [phone]) 946-115203-31-2025 History of Present illness Narrative* Peri Peterson [...] infection 09/13/2022 Adjustment disorder with depressed mood ([facility]/HCC) 09/13/2022 Allergic rhinitis 09/13/2022 Anxiety 09/13/2022 Arthralgia of multiple joints 09/13/2022 Dysmenorrhea 09/13/2022 Family history of thyroid disease 09/13/2022 Hematochezia 09/13/2022 Low back pain 09/13/2022 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 Exam conducted with a captain airline pilot present. 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[facility]) 09/13/2022 Subcutaneous nodule 09/13/2022 Tinea pedis 09/13/2022 25 weeks gestation of 04/05/2024 Second trimester 04/05/2024 Resolved Ambulatory Problems Diagnosis Date Noted No Resolved Ambulatory Problems Past Medical History: Diagnosis Date Depression ([facility]) HISTORY PAST MEDICAL HISTORY SOCIAL HISTORY Past Medical History: Diagnosis Date Anxiety Depression ([facility]) Social History Tobacco Use Smoking status: Never [...] nursing note reviewed. Exam conducted with a captain airline pilot present. 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[facility]) 09/13/2022 Subcutaneous nodule 09/13/2022 Tinea pedis 09/13/2022 25 weeks gestation of 04/05/2024 Second trimester 04/05/2024 Resolved Ambulatory Problems Diagnosis Date Noted No Resolved Ambulatory Problems Past Medical History: Diagnosis Date Depression (CMS/HCC) HISTORY PAST MEDICAL HISTORY SOCIAL HISTORY Past Medical History: Diagnosis Date Anxiety Depression ([facility]) Social History Tobacco Use Smoking status: Never [...] of: Asif Bhatt DO documented in this encounterSac-Osage [id number] History of Present illness Narrative* JOSIAH Schilling [...] 09/13/2022 Low back pain 09/13/2022 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[facility]) 09/13/2022 Subcutaneous nodule 09/13/2022 Tinea pedis 09/13/2022 25 weeks gestation of 04/05/2024 Second trimester 04/05/2024 Resolved Ambulatory Problems Diagnosis Date Noted No Resolved Ambulatory Problems Past Medical History: Diagnosis Date Depression ([facility]/HCC) HISTORY PAST MEDICAL HISTORY SOCIAL HISTORY Past Medical History: Diagnosis Date Anxiety Depression ([facility]/HCC) Social History Tobacco Use Smoking status: [...] behalf of: JOSIAH Schilling documented in this encounterSac-Osage [id number] History of Present illness Narrative* Carmen Foster, HAND CLOTH FOLDER - 04/27/2024 11:20 AM EST Reason for [...] nursing note reviewed. Exam conducted with a captain airline pilot present. Vitals: Estimated body mass index is [...] of: Asif Bhatt DO documented in this encounterSac-Osage [id number] Telephone encounter Note* Telephone Encounter - Alana [...] do not know, but my phone numbers [phone], thank you, bye. I called pt to let her know that I would talk to Dr. Bhatt and see what he recommends. [facility] [id number] Miscellaneous Notes* Telephone Encounter - Alana Mcclendon [...] do not know, but my phone numbers [phone], thank you, aurelio. I called pt to let her know that I would talk to Dr. Bhatt and see what he recommends. 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[facility]) 09/13/2022 Subcutaneous nodule 09/13/2022 Tinea pedis 09/13/2022 Resolved Ambulatory Problems Diagnosis Date Noted No Resolved Ambulatory Problems Past Medical History: Diagnosis Date Depression ([facility]) HISTORY PAST MEDICAL HISTORY SOCIAL HISTORY Past Medical History: Diagnosis Date Anxiety Depression ([facility]) Social History Tobacco Use Smoking status: Never [...] behalf of: JOSIAH Schilling documented in this encounterSac-Osage [id number] History of Present illness Narrative* Vicky Leyva LPN - 03/08/2024 3:50 PM EST Reason for Appointment: Patient ID: iWll Shay [...] infection 09/13/2022 Adjustment disorder with depressed mood ([facility]) 09/13/2022 Allergic rhinitis 09/13/2022 Anxiety 09/13/2022 Arthralgia of multiple joints 09/13/2022 Dysmenorrhea 09/13/2022 Family history of thyroid disease 09/13/2022 Hematochezia 09/13/2022 Low back pain 09/13/2022 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[facility]) 09/13/2022 Subcutaneous nodule 09/13/2022 Tinea pedis 09/13/2022 Resolved Ambulatory Problems Diagnosis Date Noted No Resolved Ambulatory Problems Past Medical History: Diagnosis Date Depression ([facility]) HISTORY PAST MEDICAL HISTORY SOCIAL HISTORY Past Medical History: Diagnosis Date Anxiety Depression ([facility]) Social History Tobacco Use Smoking status: Never [...] nursing note reviewed. Exam conducted with a captain airline pilot present. 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 Exam conducted with a captain airline pilot present. Vitals: Estimated body mass index is [...] behalf of: Kirsty Rico documented in this encounterSac-Osage [id number] History of Present illness Narrative* Carmen Foster, HAND CLOTH FOLDER - 01/07/2024 3:10 PM EDT Reason for [...] infection 09/13/2022 Adjustment disorder with depressed mood ([facility]/HCC) 09/13/2022 Allergic rhinitis 09/13/2022 Anxiety 09/13/2022 Arthralgia of multiple joints 09/13/2022 Dysmenorrhea 09/13/2022 Family history of thyroid disease 09/13/2022 Hematochezia 09/13/2022 Low back pain 09/13/2022 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[facility]/HCC) 09/13/2022 Subcutaneous nodule 09/13/2022 Tinea pedis 09/13/2022 Resolved Ambulatory Problems Diagnosis Date Noted No Resolved Ambulatory Problems Past Medical History: Diagnosis Date Depression (CMS/HCC) HISTORY PAST MEDICAL HISTORY SOCIAL HISTORY Past Medical History: Diagnosis Date Anxiety Depression ([facility]) Social History Tobacco Use Smoking status: Never [...] nursing note reviewed. Exam conducted with a captain airline pilot present. Vitals: Estimated body mass index is [...] undercooked meat, and stay away from [facility]. Patient hasbeen consulted regarding any further do's and don'ts of . Patient voiced understanding andall questions and concerns were answered. Orders Placed This Encounter Procedures Urine dip Follow Up: Patient is to return in 4 weeks for routine OB appointment. Documented by Carmen Foster LPN on behalf of: Kirsty Siu PA-C documented in this encounterSac-Osage [id number] History of Present illness Narrative* JOSIAH Schilling [...] Past Medical History: Diagnosis Date Anxiety Depression ([facility]/HCC) Social History Tobacco Use Smoking status: [...] behalf of: JOSIAH Schilling documented in this encounterSac-Osage [id number] History of Present illness Narrative* Leah Raman [...] infection 09/13/2022 Adjustment disorder with depressed mood ([facility]/HCC) 09/13/2022 Allergic rhinitis 09/13/2022 Anxiety 09/13/2022 Arthralgia of multiple joints 09/13/2022 Dysmenorrhea 09/13/2022 Family history of thyroid disease 09/13/2022 Hematochezia 09/13/2022 Low back pain 09/13/2022 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[facility]/HCC) 09/13/2022 Subcutaneous nodule 09/13/2022 Tinea pedis 09/13/2022 Resolved Ambulatory Problems Diagnosis Date Noted No Resolved Ambulatory Problems Past Medical History: Diagnosis Date Depression ([facility]) Family History Problem Relation Name Age of [...] Pt was given OB folder and desires [place] 22. Advised to have both and unity [...] by: Leah Raman MA documented in this encounterSac-Osage [id number] Evaluation note* Encounter Date Diagnosis Assessment Notes [...] call office if she has no improvement [facility] Other 10-20-2023 Evaluation note* Encounter Date Diagnosis Assessment Notes Treatment Notes Treatment Clinical Notes Jan, Epigastric burning sensation (ICD-10 - R10.13) [facility] Other 12-02-2022 Evaluation note* Encounter Date Diagnosis Assessment Notes Treatment Notes Treatment Clinical Notes Mar, Nausea (ICD-10 - R11.0) Mar, Epigastric burning sensation (ICD-10 - R10.13) Mar, Lower abdominal pain (ICD-10 - R10.30) Mar, Bloating (ICD-10 - R14.0) Mar, Functional dyspepsia (ICD-10 - K30) Mar, GERD (gastroesophageal reflux disease) (ICD-10 - K21.9) CONTINUE PANTOPRAZOLE 40 MG DAILY CONTINUE LEVSIN NEEDED RTO 1 YR [facility] Other Evaluation note* Diagnosis First trimester state, [...] this encounter [facility]Evaluation noteNo assessment information availableC[facility] Clinic Work Phone: Evaluation note* Diagnosis Onset Date Resolution Status Admit Date Chronic GERD acute September 08 2:10pm [facility] Work Phone: Hishnlt general Narrative - Reported* Type Description Date Medical History scoliosis Medical History hx of mono Surgical History [place] teeth x4 Luxury Retreats [facility] [place] Other History general Narrative - Reported* Type Description Date Medical History scoliosis Medical History hx of mono Surgical History [place] teeth x4 Surgical History C section [facility] [place] Other Reason for referral (narrative)No reason for referral information availableOhiohealth Work Phone: Summary Purpose Family History Relationship [...] section and content) DATE CREATED AUTHOR 07/24/2022 [facility] DATE CREATED AUTHOR AUTHOR'S ORGANIZ ATION 08/08/2022 [facility] DATE CREATED AUTHOR AUTHOR'S ORGANIZ ATION 07/06/2024 [facility] EPIC DATE CREATED AUTHOR AUTHOR'S ORGANIZ ATION 08/05/2024 [facility] Care Teams (unrecognized sec tion and content) Team Status: Active Member Role Status Dates Britt Harris APRN ADULT CARE MANAGER-C Primary Care Provider Active Start: June 21, 2024 Kirsty Siu PA-C Attending Provider Active Start : June 21, 2024 Team Status: Active Member Role Status Dates Britt Harris APRN ADULT CARE MANAGER-C Primary Care Provider Active Start: June 29, 2024 Asif Bhatt DO Attending Provider Active Start : June 29, 2024 Team Status: Active Member Role Status Dates Britt Harris APRN ADULT CARE MANAGER-C Primary Care Provider Active Start: June 30, 2024 Asif Bhatt , Attending Provider Active Start : June 30, 2024 Team Status: Active Member Role Status Dates Britt Harris APRN ADULT CARE MANAGER-C Primary Care Provider Active Start: July 01, 2024 Asif Bhatt DO Attending Provider Active Start : July 01, 2024 Team Status: Active Member Role Status Dates Britt Harris APRN ADULT CARE MANAGER-C Primary Care Provider Active Start: July 14, 2024 Jennifer Moe DO Attending Provider Active Start: July 14, 2024 Team Status: Inactive Member Role Status Dates Jennifer Moe DO Attending Provider Active Start: July 14, 2024 End: July 14, 2024 Team Status: Active Member Role Status Dates Britt Harris APRN ADULT CARE MANAGER-C Primary Care Provider Active Start: July 14, 2024 Jeannette Domingo CMA Attending Provider Active Start: July 14, 2024 Team Status: Active Member Role Status Dates Britt Harris APRN ADULT CARE MANAGER-C Primary Care Provider Active Team Status: Inactive Member Role Status Dates Britt Harris APRN ADULT CARE MANAGER-C Primary Care Provider Active Start: September 08, 2024 End: September 08, 2024 Ben Rose MD Attending Provider Active S tart: September 08, 2024 End: September 08, 2024 Team Status: Inactive Member Role Status Dates Britt Harris APRN ADULT CARE MANAGER-C Primary Care Provider Active Start: November [...] BE BASED ON THE PRIMARY CLINICAL RECORDS. [facility] [employer] [facility]. provides no warranty or guarantee of the accuracy or completeness of information in this document.
[2024-12-17 10:47] LABS: Hematocrit 39.3 % (36.0-48.0); Hemoglobin 12.8 g/dL (12.0-16.0); Immature Granulocytes Abs Auto 0.01 10^3/uL (0.00-0.03); Immature Granulocytes Pct Auto 0.2 % (0.0-0.5); Lymphocytes Absolute Auto 1.9 10^3/uL (1.2-3.8); Mean Corpuscular HGB Conc 32.6 g/dL (29.9-35.2); Mean Corpuscular Hemoglobin 28.0 pg (26.7-34.0); Mean Corpuscular Volume 86.0 fL (81.0-99.0); Platelet Count 225 10^3/uL (150-450); Red Blood Count 4.57 10^6/uL (4.20-5.40); White Blood Count 5.6 10^3/uL (4.0-11.0)
[2024-12-17 12:39] LABS: Ferritin 41.0 ng/mL (8.0-252.0)
[2024-12-18 09:09] LABS: Transferrin 321 mg/dL (192-364)
== END 2024-12-17 09:46 | disposition home or self-care (01) ==
LOC: LAB 09:45
PROVIDERS: PCP Nurse Practitioner Family; Visit Provider Obstetrics & Gynecology
DX: E61.1 Iron deficiency (principal)
CPT/HCPCS: 36415; 82728; 84466; 85025

== ENCOUNTER 2025-01-29 07:45 | Outpatient (OUT) | payer BC, SELFPAY ==
--- OUTSIDE RECORDS SUMMARY | 2021-12-26 10:30 | XMS_ITS | Continuity of Care Document ---
Author Organization [facility] Address [address] [place] [address] Phone Care Team Providers Care Health Information Technologist Name Role Phone Mari Cifuentes MD Unavailable Unavailable Allergies, Adverse Reactions, Alerts Substance Reaction Status Criticality coconut GI Problems Active No Information PENICILLIN RashRash Active No Information Medications Medication Instructions Dosage Effective Dates (start - stop) Status Comments pantoprazole 40 mg tablet,delayed release take 1 tablet by oral route every day 40 MG - Active Zyrtec 10 mg tablet take 1 tablet by ora l route every day 10 MG - Active Procedures Procedure Date Ophthal DX Image Post Retina I And R Uni Or Bi OFFICE/OUTPATIENT VISIT, NEW OCT No Charge Uni Or Bi Advance Directives Directive Yes / No Effective Date File Name No Information Encounters Encounter Description Practice Location Reason(s) For Visit Diagnoses Date Provider Providers Copied on Encounter OFFICE/OUTPATI ENT VISIT, [facility] , [address] [place], [address], [place] tel:[phone] RVA Nina Retinal Lesion (chief complaint) Benign neoplasm of left choroid Esau Guerra. [address], [address], [place], [place], [id number], [place]. tel:[phone] Specialist: [address], [place], [address]. tel:[phone] Provider: [address], [place], [address]. tel:[phone] ring Provider: Lilli Yadav, [address], [place], [address]. tel:[phone] [facility] , [address], [place], [address], [place] tel:[phone] GELACIO Wood No Information Esau Guerra. [address], [address], [place], [place], [id number], [place]. tel:[phone] Family History Family Member Type Diagnosis Age At Onset No Information Payers Payer name Insurance type Covered alliance party ID Guille combs(s) Esther [employer] Bs [facility] [place] [id number] [facility] [place] [id number] [facility] [id number] Social History Type Description Quantity Date Captured Comments Alcohol Use Details Unknown Caffeine Use Details Unknown Tobacco Use Status Current non-smoker Smoking Status Never smoker Sex Female Vital Signs Date / Time: Height Weight BMI Pulse Rate Blood Pressure Temperature Respiratory Rate Body Surface Area Head Circumference Head Circ. Percentile Wt./Chilo. Percentile BMI percentile Pulse Ox Inhaled Ox 3:26 PM 110/63 mm[Hg] Chief Complaint And Reason For Visit From encounter dated '12/26/2021 14:30'. Retinal Lesion (chief complaint). Description: The 26 year old female presents for retinal evaluation. Patient states she was told about 4 months ago she had a retinal lesion. She went back to see her eye doctor who stated the lesion was now raised and she should be evaluated by a specialist. Reason For Referral Reason For Referral No Information History Of Present Illness Encounter Date Complaint History Of Prese nt Illness Retinal Lesion The 26 year old female presents for retinal evaluation. Patient states she was told about 4 months ago she had a retinal lesion. She went back to see her eye doctor who stated the lesion was now raised and she should be evaluated by a specialist. 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
--- OUTSIDE RECORDS SUMMARY | 2025-01-25 07:24 | XMS_ITS | Continuity of Care Document ---
Author Organization [facility] Address [address] [place] [address] Phone Care Team Providers Care Centrifugal Casting Machine Tender Name Role Phone Britt Harris APRN Primary Care Provider Britt Harris APRN Attending Provider Asif Bhatt DO Attending Provider Care Teams Patient Care Team Team Status: Active Member Role/Relationship Status Dates Britt Harris APRN MORTGAGE LOAN ASSISTANT-C Primary Care Provider Active Visit Care Team Team Status: Inactive Member Role/Relationship Status Dates Britt Harris APRN MORTGAGE LOAN ASSISTANT-C Primary Care Provider Active Start: November 17, 2024 End: November 17, 2024Britt Harris APRN MORTGAGE LOAN ASSISTANT-CAttending ProviderActive Start: November 17, 2024 End: November 17, 2024 Patient Care Team Team Status: Active Member Role/Relationship Status Dates Britt Harris APRN MORTGAGE LOAN ASSISTANT-C Primary Care Provider Active Start: November 19, 2024 Britt Harris APRN MORTGAGE LOAN ASSISTANT-CAttending ProviderActiveStart: November 19, 2024 Patient Care Team Team Status: Active Member Role/Relationship Status Dates Britt Harris APRN MORTGAGE LOAN ASSISTANT-C Primary Care Provider Active Start: December 062024 Tom Mccoy ProviderActiveStart: December 17, 2024 Patient Care Team Team Status: Inactive Member Role/Relationship Status Dates Britt Harris APRN MORTGAGE LOAN ASSISTANT-C Primary Care Provider Active Start: January End: January 25, 2025Britt Harris APRN MORTGAGE LOAN ASSISTANT-CAttending ProviderActive Start: January 25, 2025 End: January 25, 2025 Chief Complaint and Reason for Visit Chief Complaint Admit Date hairloss, loss of appetite November 17, 2024 9:26am Pain, Upper Rt Abdomen January 25 10:56am Reason for Visit Admit Date Anxiety November 17, 2024 9: 26am Easy bruising November 17, 2024 9: 26am Hair thinning November 17, 2024 9: 26am Easy bruising January 25, 2025 1 0:56am Iron deficiency anemia January 25 10:56am Right upper quadrant pain January 25, 2025 10:56am Reason for Referral Type Reason(s) Provider Provider Contact Information P [facility] Address Start Date Bruises easily Iron deficiency anemia R23.3 - Spontaneous ecchymoses,D50.9 - Iron deficiency anemia, nbbbtfboyvuY68.3 - Spontaneous ecchymoses,D50.9 - Iron deficiency anemia, unspecifiedApoorva MD GuidoWork Phone: [phone] [facility] [id number] Allergies, Adverse Reactions, Alerts Allergen Type Severity Reaction Last Updated Verified Status Penicillins Allergy Unknown Rash January 25, 2025 10:09am Y es Active Social History Smoking Status Status Start Date End Date Date of Observa tion Never smoked tobacco (finding) February 22, 2021 12:53pm Observation Status Observation Response Date of Response Legal Sex Female (finding) Sex Assigned At BirthFemaleJuly 1995Pregnancy StatusNOctober 2024N November 17, 2024 Family History Relationship Condition Age at Onset Recorded Date/T darrius grandparent Malignant neoplasm of breast Unknown motherColitisUnknown Problems Active Problems Problem Diagnosis/Recorded Date Onset Date Status C omments Right upper quadrant pain January 25, 2025 11:15am Unkno wn Active FatigueMay 2023 3:41pmUnknownActiveIrregular mensesMay 2023 3:46pm QbpckmwXxshpc55 weeks gestation of pregnancyJanuary 2024 12:18pmUnknown ActiveAnxietyMay 2023 3:33pmUnknownActiveGastritisApril 2023 9:01am UnknownActiveWellness examinationMay 2023 3:52pmUnknownActiveEasy bruising August 06, 2023 3:44pmUnknownActiveScreening for metabolic disorderMay 2023 3:42pmUnknownActiveAtypical chest painJanuary 2024 11:49amUnknownActive Screening for lipid disordersMay 2023 3:42pmUnknownActiveVertigoOctober 2023 9:26amUnknownActiveChronic GERDDecember 2023 2:19pmUnknown ActiveIron deficiency anemiaOctober 2024 11:18amUnknownActiveConstipation March 25, 2024 2:31pmUnknownActiveVitamin D deficiencyMay 2023 3:44pm UnknownActiveHair thinningAugust 2024 9:48amUnknownActiveInactive/Resolved Problems Problem Diagnosis/Recorded Date Onset Date Status C omments Dyspepsia and disorder of function of stomach February 22, 2021 1:52pm Unknown Resolved Probl em List clean-up per request of Phys. EHR Cmte Diarrhea February 22, 2021 1:53pm Unknown Resolved Problem List clean-up per request of Phys. EHR Cmte GERD (gastroesophageal reflux disease) February 22, 2021 1:52pm Unknown Resolved Probl em List clean-up per request of Phys. EHR Cmte Abdominal pain February 22, 2021 1:53pm Unknown Resol giovana Problem List clean-up per request of Phys. EHR Cmte Medications Medication Status Dose Units Route Directions Qty Days Refills S tart Date Stop Date End Date Reason(s) Instructions Adherence Pantoprazole 40 mg tablet,delayed release (DR/EC) Discontinued 40 MG PO Daily 30 30 8 Jul il 2023 11:17am October 29, 2023 1:39pmOmeprazole 40 mg capsule,delayed release(DR/EC) Vezsgadvafon50FONKEosbc19976Rxy 2023 12:00amJuly 2023 1:39pm30 minutes prior to eatingEsomeprazole Magnesium 40 mg capsule,delayed release(DR/EC)Rsdhfhgqgbbr08IJOBAsrrq84766Odte 2023 12:00amOctober 2023 9:06amEsomeprazole Magnesium 40 mg capsule,delayed release(DR/EC) Iswsvcoljfmb73RPOJXnyxg29148Mhocdpp 2023 12:00amDecember 2023 2:17pm Esomeprazole Magnesium 40 mg capsule,delayed release(DR/EC)Vtmsjpeovyui26ZEJM Kzbit374789Vnqyipn 2024 1:00amMay 2024 2:14pmTake 1 capsule orally 30 minutes before morning meal.Pantoprazole (Protonix) 40 mg tablet,delayed release (DR/EC)Zmuwqmtqhywh51SDAWCahwr338777Hwkbymg 2024 1:00amMay 2024 2:13pmTake 1 tablet orally 30 minutes before morning meal.Esomeprazole Magnesium 40 mg capsule,delayed release(DR/EC)Jwbqgmotswcs98HCDXLgcuw180924Yus 2024 2:14pmAugust 2024 9:34amTake 1 capsule orally 30 minutes before morning meal.Lactobacillus Combination No.4 (Probiotic) 3 billion cell Capsule Kprwwfrtooez6768SCZ CELLSPODailyNovember 2020 1:00amOctober 2023 9:09amOmeprazole 20 mg capsule,delayed release(DR/EC)Jocvxvfkdbvq06VXWVVxftwprj 2023 1:00amJanuary 2024 11:41amBupropion Hcl 150 mg tablet extended release 24 hrDiscontinuedMGPODecember 2023 1:00amJanuary 2024 11:42am Metoclopramide Hcl 10 mg scoralStkrojwfacox67NLEIAinuorqa 2023 1:00amJune 2024 2:16pmOmeprazole 40 mg capsule,delayed release(DR/EC)Zcbzphodwgbs24DR EKXhwrc838925Obhjbfdt 2023 1:00amMay 2024 2:13pmMetoclopramide Hcl 10 mg frheujHfchgqdrkpfz29QHRSim neededJune 2024 2:15pmOctober 2024 11:02amCitalopram (Celexa) 20 mg rvxcngIejpln48EEBXFlgvrJlkx 2024 12:00am Complies with drug therapyEsomeprazole Magnesium 40 mg capsule,delayed release(DR/EC)Yylmmi43YAUMKceyo srqbx489356Pfme 2024 12:00amTake 1 capsule orally 30 minutes before morning meal and 30 minutes before evening meal. Complies with drug therapyMultivitamin With Minerals (Multiple Vitamin-Minerals) odiahaTqpypb5YXBYFPjmlyIslxeyv 2024 12:00amComplies with drug therapy Loratadine (Claritin) 10 mg hciiyuTgyoah04AAGRUnyitHdcfd 2023 12:00am Complies with drug therapyPantoprazole 40 mg tablet,delayed release (DR/EC) Yrtropzzmuqi62PHUKItwakOzgmy 2023 12:00amApril 2023 11:18am Citalopram 20 mg pakufpNvswnhovbnbp52WSNNYdbgsUwa 2023 12:00amOctober 2023 9:06amvitamin dDiscontinuedPOMay 2023 12:00amOctober 2023 9:09am Womens MultiDiscontinuedPOMay 2023 12:00amOctober 2023 9:09am Omeprazole 40 mg capsule,delayed release(DR/EC)Qcauuwesxgdo94QCAVKyztaMmrdotg 2023 12:00amOctober 2023 10:05amMeclizine 25 mg zvttccPbxtlsvettxk47 MGPOas neededOctober 2023 12:00amOctober 2023 9:33amPrenatal 75-Iron Wej-Qmyrl-Ij9 (One Daily ) 28-800-440 mg-mcg-mg combo packDiscontinued PKGPOOctober 2023 12:00amOctober 2024 11:02amMeclizine 25 mg tablet Ypqocw36OJLAZqoox times daily as needed for jinfktdud27532Exfqonu 2023 9:25amVertigo Dizziness and giddinessComplies with drug therapyBupropion Hcl 150 mg tablet extended release 24 hrDiscontinuedMGPOTwice dailyJanuary 2024 11:42amJune 2024 2:15pmBuspirone 5 mg rnnrzxYesewajsmcpx0XMSCGbrcf ipwma43086Iqoigl 2024 12:00amOctober 2024 11:01amAnxiety Anxiety disorder, unspecified Immunizations Immunization Event Date Not Given Reason Dose Number Winder Hand Lot Number Reason(s) Given Vaccine Information Statement (VIS) Detail Administration Location Human Papillomavirus Vaccine, quadrivalent Novus t 2014 Relevant Diagnostic Tests and/or Laboratory Data Laboratory Results Test Collection Date/Time Result Date/Time Result Interpretation Reference Range Result Comment Performing Site Thyroid Stimulating Hormone November 19, 2024 10:12am November 19, 2024 10:12am 1.283 u[iU]/mL 0.358-3.740Iron SaturationAugust 2024 10:122024 10:12am17.2 %TransferrinSept2024 10:01amSept2024 10:68do582 mg/dL 192-364Performed at: [facility] [address] [id number] Director: Jose Alejandro Matthews PhD, Phone: [phone] 12th, 2025 10:01amSept2024 10:01am41.0 ng/mL8.0-252.0Basophils # (Auto)December 17, 2024 10:01amSept2024 10:01am0.0 10 3/uL0.0-0.1 Iron LevelAugust 2024 10:2024 10:12am68.0 ug/dL50.0-170.0 Basophils (%) (Auto)December 17, 2024 10:01amSept2024 10:01am0.5 %0.2-2.0Total Iron Binding CapacityAugust 2024 10:122024 10:84kh845.0 ug/dL250.0-450.0Eosinophils # (Auto)December 17, 2024 10:01am December 17, 2024 10:01am0.1 10 3/uL0.0-0.7Eosinophils (%) (Auto)December 17, 2024 10:01amSept2024 10:01am2.0 %0.9-7.0HematocritSept2024 10:01amSept2024 10:01am39.3 %36.0-48.0HemoglobinSept2024 10:01amSept2024 10:01am12.8 g/dL12.0-16.0Immature Granulocyte # (Auto)December 17, 2024 10:01amSept2024 10:01am0.01 10 3/uL0.00-0.03Immature Granulocyte % (Auto)December 17, 2024 10:01am December 17, 2024 10:01am0.2 %0.0-0.5Lymphocytes # (Auto)December 17, 2024 10:01amSept2024 10:01am1.9 10 3/uL1.2-3.8Lymphocytes (%) (Auto) December 17, 2024 10:01amSept2024 10:01am33.7 %20.5-60.0Mean Corpuscular HemoglobinSept2024 10:01amSept2024 10:01am 28.0 pg26.7-34.0Mean Corpuscular Hemoglobin ConcentSept2024 10:01am December 17, 2024 10:01am32.6 g/dL29.9-35.2Mean Corpuscular VolumeSept2024 10:01amSept2024 10:01am86.0 fL81.0-99.0Monocytes # (Auto) December 17, 2024 10:01amSept2024 10:01am0.4 10 3/uL0.3-0.8 Monocytes (%) (Auto)December 17, 2024 10:01amSept2024 10:01am6.7 %1.7-12.0Mean Platelet VolumeS2024 10:01amSept2024 10:01am10.4 fL9.5-13.5Neutrophils # (Auto)December 17, 2024 10:01amSept2024 10:01am3.2 10 3/uL1.4-6.5Neutrophils (%) (Auto)December 17, 2024 10:01amSept2024 10:01am56.9 %43.0-75.0Platelet CountS2024 10:01amSept2024 10:89kv203 10 3/mI062-024Wit Blood Count December 17, 2024 10:01amSept2024 10:01am4.57 10 6/uL4.20-5.40Red Cell Distribution WidthS2024 10:01amSept2024 10:01am 13.1 %11.0-15.0Corrected White Blood CountSept2024 10:01amSept2024 10:01am5.6 10 3/uL4.0-11.0 Vital Signs Vital Reading Result Reference Range Collection Date/Time Height 64.75 [in_i] November 17, 2024 9:13clByorja18.74 kgAugust 2024 9:29amBody Temperature 97.6 [degF]97.6-99.0August 2024 9:29amHeart Rate91 /dya18-171Xglxfp 2024 9:29amOxygen saturation by Pulse hnxtfwux35 %95-100Augus2024 9:29am BP Fqibuxeb716 mm[Hg]100-140Au2024 9:29amBP Lmjuoqiiq89 mm[Hg]60-100 November 17, 2024 9:29amBMI (Body Mass Index)28.0 kg/y5Tcwjpf 2024 9:29am Mhafbb65.75 [in_i]January 25, 2025 10:24plMsdzum43.92 kgOctober 21st, 2025 10:57amBody Gdlinqvzlzj11.0 [degF]97.6-99.0[facility] 2024 10:57amHeart Rate 90 /csv44-553Vknaawo 2024 10:57amOxygen saturation by Pulse btsoykii17 % 95-100[facility] 2024 10:57amBP Ugsnhjlh399 mm[Hg]100-140[facility] 2024 10:57amBP Dqmtlwemc18 mm[Hg]60-100[facility] 2024 10:57amBMI (Body Mass Index)29.2 kg/x1Rltimhg 2024 10:57am Advance Directives Advance Directive Response Recorded Date/ Time Advance Directives No February 11:33am Insurance Providers Guarantor Will Shay Address [address] [place] [address]Dnaqjmz Info.Home Phone: Payer Group Member ID Coverage Type Subscriber Relationship to Subscriber Effective Date Expiration Date MMO Unemployed Id: [id number] J Lilly Id: [id number] [address] [place] [address] Home Phone: Email: [email or web address] CHEUNG/AKILA Id: [id number] Laurita V Id: [id number] [address] [place] [address] Home Phone: Email: [email or web address] Advantage Unemployed Id: [id number] J Lilly Id: [id number] [address] [place] [address] Home Phone: Email: [address] [email or web address]'s Hospital Medicaid Unemployed Id: [id number] J Lilly Id: [id number] [address] [place] [address] Home Phone: Email: [email or web address] Encounters Encounter Location(s) Arrival/Admit Date Discharge/Departure Date Discharge/Departure Disposition Provider(s) Departed Physician/ Provider Office Visit -[facility] November 17, 2024 9:26am November 17, 2024 9:58am Discharged to home care or self care (routine discharge) Britt Harris APRN CNP Non-patient / Non-visit -[facility] ugust 2024 10:12am Britt Harris APRN CNPNon-patient / [facility]qa[facility]September 2024 10:01amCorey FazioDeparted Physician/Provider [facility] 10[facility]56amOctober 2024 11:23amDischarged to home care or self care (routine discharge)Britt Harris APRN CNP Recent Diagnosis Onset Date Admit Date Anxiety Unknown November 17 9:26am Easy bruising Unknown November 17 9:26am Hair thinning Unknown November 17 9:26am Easy bruising Unknown January 25 10:56am Iron deficiency anemia Unknown January 062024 10:56am Right upper quadrant pain Unknown Janobe r 2024 10:56am Assessments Diagnosis Onset Date Resolution Status Admit Date Anxiety acuteAugust 2024 9:26amEasy bruisingacuteAugust 2024 9:26amHair thinningacuteAugust 2024 9:26amEasy bruisingacuteOctober 2024 10:56amIron deficiency anemiaacuteOctober 2024 10:56amRight upper quadrant painacuteOctober 2024 10:56am Plan of Treatment Author Britt Harris [facility] HospitalAuthoredAugust 2024 10:18amReports easy busing and hair thinning, will proceed with iron studies and thyroid. Will call with results. Discussed that hair loss/thinning could be related to recent of daughter and continuing to breast feed. Pt verbalizes understanding. Will call with results. Patient is not suicidal or homicidal at this time. Discussed treatment options with patient today. It was decided in collaboration with the patient to continue celexa and add BuSpar daily for management with depression/anxiety. Medication profile and possible SE reviewed with patient today. Patient to take medication as directed and prescribed. Do not skip/miss doses and do not stop abruptly. Patient is not interested in counseling at this time. Warning s/s reviewed with patient today. Patient to go immediately to the ER should patient experience any of these. Follow up in 4 weeks to assess symptoms and medication effectiveness. Patient verbalizes understanding and agrees to treatment plan. Future Tests Future scheduled test information is unavailable Pending Tests Test Name Ordered Date Scheduled Date US gall bladder January 25, 2025 11:15am Future Visits Future appointment information is unavailable Future Procedures Procedure Name Ordered Date Scheduled Date Iron and TIBC Profile November 17, 2024 9:46am Thyroid Stim Hormone w/RflxAugust 2024 9:46am Future Medications Future medication information is unavailable Patient Instructions Patient instructions are unavailable Hospital Discharge Instructions Ambulatory Orders* Referral to Hematology Time Frame: 01/25/25, Location: None Selected
--- NOTE | 2025-01-29 | US_ITS ---
The [address] [address] Patient Name: CARLOS ADAMS MRN: [id number] date: 1995 Sex: F Assigned Patient Location: US Current Patient Location: US Accession/Order Number: [id number] Exam Date: 01/29/2025 07:49 Report Date: 01/29/2025 09:20 At the request of: BRAULIO FUENTES Procedure: US right upper quadrant LIMITED ABDOMINAL ULTRASOUND WITH ASSESSMENT OF RIGHT UPPER QUADRANT HISTORY: Right upper quadrant pain for 9 months COMPARISON: None Negative ultrasound Noriega's sign reported. COMMON BILE DUCT: Normal caliber. No intraluminal abnormality. LIVER CONTOUR: Normal. LIVER PARENCHYMA: Normal echogenicity HEPATIC LESION: Tiny left anechoic hepatic cyst. INTRAHEPATIC BILIARY DUCTAL DILATATION No ductal dilatation identified. GALLSTONES: No shadowing gallstones. GALLBLADDER SLUDGE: No gallbladder sludge. GALLBLADDER WALL: Normal thickness PERICHOLECYSTIC FLUID: None Pancreas: Unremarkable PORTAL VEIN: Normal blood flow. Liver size: Normal No RIGHT hydronephrosis identified. US/US right upper quadrant IMPRESSION: Unremarkable exam Impression dictated by: Nickolas Christensen M.D. 01/29/2025 9:20 AM Dictation Location: [place] [address] Electronically authenticated by: [id number] Y Date: 01/29/2025 09:20
--- OUTSIDE RECORDS SUMMARY | 2025-01-29 07:48 | XMS_ITS | Clinical Summary ---
Author Organization [facility] Healthcare Address [address] [place] [address] Care Team Providers Care Ladle Patcher Name Role Phone Unavailable Primary Care Provider Unavailabl e Allergies Active AllergyReactionsCriticalityNoted CkbhHzaicomlKibldosmo14/30/2023 UdbljyypqenCfdxf41/30/8131FuqogrwdkvdTuktBbv35/30/2023 Medications MedicationSigDispense QuantityRefillsLast FilledStart DateEnd DateStatus pantoprazole (ProtoNix) 40 MG EC tablet Take 40 mg by mouth in the morning. Take before meals. Do not crush, chew, or split..Active citalopram (CeleXA) 20 MG tablet Indications:AnxietyTake 1 tablet (20 mg) by mouth Daily 30 tablet 110506Active Active Problems ProblemNoted DateDiagnosed Date25 weeks gestation of ([facility]) 04/05/2024Second trimester ([facility])4Acid ioqjpo2009/13/2022 Acne09/13/2022cquired yohpwrlsl65/09/2023cute upper respiratory infection 09/13/2022djustment disorder with depressed mood09/13/2022llergic rhinitis 09/13/20225856Nxmjuio66/09/2023rthralgia of multiple mmqshz6409/13/2022ysmenorrhea 09/13/2022Family history of thyroid foefhag9709/13/20225166Nhjlidbjzuxl63/09/2023Low back pain09/13/2022Opportunistic lpoxtsq1309/13/2022Subcutaneous axnnjq7909/13/2022 Tinea pedis09/13/2022 Encounters DateTypeDepartmentCare VpdoJtxfepnwpqi19/12/2025Clinisync Result Encounter [facility] External Department Unsolicited Asif Bhatt, 12/15/2024Telephone [facility] [address] [place] [address] [place] [address] Danelle AlanaGAY from Last 3 Months Family History Medical HistoryRelationNameCommentsMental illnessMotherMelanomaNeg HxRelation NameStatusCommentsFatherAliveMotherAlive Social History Tobacco UseTypesPacks/DayYears UsedDateSmoking Tobacco: NeverSmokeless Tobacco: Never Tobacco Cessation:Counseling Given: Not Answered Alcohol UseStandard Drinks/WeekCommentsNever0 (1 standard drink = 0.6 oz pure alcohol)CommentsNoSex and Gender InformationValueDate RecordedSex Assigned at BirthNot on fileLegal XkvJitepl36/15/2023 7:14 PM EDTGender Identity Not on fileSexual OrientationNot on file Last Filed Vital Signs Vital SignReadingTime TakenCommentsBlood Ysaqtecb686/78007/05/2024 3:29 PM EDT Revdf63453/21/2023 10:31 AM ESTpt c/o vycdhdrWonzrkjpicy26.7 ??C (98 ??F) 03/27/2023 10:31 AM ESTRespiratory Rate--Oxygen Mxfwermumz68%03/27/2023 10:31 AM ESTInhaled Oxygen Concentration--Lawhoy70.2 kg (187 lb 12.8 oz)07/05/2024 3:29 PM YLIPzvnej502.7 cm (5' 8 )12/25/2022 10:53 AM EDTBody Mass Index28.55 12/25/2022 10:53 AM EDT Plan of Treatment Not on file Procedures Procedure NamePriorityDate/TimeAssociated DiagnosisCommentsTRANSFERRINRoutine 12/17/2024 10:01 AM EDT [facility] XTLJXEFWBflgpdi65/12/2025 10:01 AM EDT ALL CBC WITH AUTO YJMAXaokrws46/12/2025 10:01 AM EDT from Last 3 Months Results * TRANSFERRIN (12/17/2024 10:01 AM EDT)ComponentValueRef RangeTest Method Analysis TimePerformed AtPathologist NebnzfsqbKLVYDFSEMYL468089 - 364 mg/dLTBH Comment: Performed at: ??CB - [facility] [address] ??[id number] [employer] Worker: Jose Alejandro Matthews PhD, Phone: ??[phone] Specimen (Source)Anatomical Location / LateralityCollection Method / Volume Collection TimeReceived Time12/17/2024 10:01 AM EDT12/17/2024 10:11 AM EDT Narrative [facility] - 12/18/2024 9:09 AM EDT Authorizing ProviderResult TypeResult StatusCorey Nvoa DOLAB BLOOD ORDERABLES Final ResultPerforming OrganizationAddressCity/State/ZIP CodePhone Number [facility] * [facility] FERRITIN (12/17/2024 10:01 AM EDT)ComponentValueRef RangeTest Method Analysis TimePerformed AtPathologist MjjjvqrhjWOLHTCZM80.08.0 - 252.0 ng/mLTBH Specimen (Source)Anatomical Location / LateralityCollection Method / Volume Collection TimeReceived Time12/17/2024 10:01 AM EDT12/17/2024 10:11 AM EDT Narrative [facility] - 12/17/2024 1:08 PM EDT Authorizing ProviderResult TypeResult StatusCorey Nova DOCLINISYNCFinal Result Performing OrganizationAddressCity/State/ZIP CodePhone Number [facility] * ALL CBC WITH AUTO DIFF (12/17/2024 10:01 AM EDT)ComponentValueRef RangeTest MethodAnalysis TimePerformed AtPathologist SignatureTBH WBC5.64.0 - 11.0 10 3/uLTBHTBH RBC4.574.20 - 5.40 10 6/uLTBHTBH HGB12.812.0 - 16.0 g/dLTBHTBH HCT 39.336.0 - 48.0 %TBHTBH MCV86.081.0 - 99.0 fLTBHTBH MCH28.026.7 - 34.0 pgTBH TBH MCHC32.629.9 - 35.2 g/dLTBHTBH RDW13.111.0 - 15.0 %TBHTBH RUI652138 - 450 10 3/uLTBHTBH MPV10.49.5 - 13.5 fLTBHNEUTROPHILS PERCENT AUTO56.943.0 - 75.0 % TBHLYMPHOCYTES PERCENT AUTO33.720.5 - 60.0 %TBHMONOCYTES PERCENT AUTO6.71.7 - 12.0 %TBHTBH EO %2.00.9 - 7.0 %TBHBASOPHILS PERCENT AUTO0.50.2 - 2.0 %TBH IMMATURE GRANULOCYTES PCT AUTO0.20.0 - 0.5 %TBHNEUTROPHILS ABSOLUTE AUTO3.21.4 - 6.5 10 3/uLTBHLYMPHOCYTES ABSOLUTE AUTO1.91.2 - 3.8 10 3/uLTBHMONOCYTES ABSOLUTE AUTO0.40.3 - 0.8 10 3/uLTBHTBH EO #0.10.0 - 0.7 10 3/uLTBHBASOPHILS ABSOLUTE AUTO0.00.0 - 0.1 10 3/uLTBHIMMATURE GRANULOCYTES ABS AUTO0.010.00 - 0.03 10 3/uLTBHSpecimen (Source)Anatomical Location / LateralityCollection Method / VolumeCollection TimeReceived Time12/17/2024 10:01 AM EDT12/17/2024 10:11 AM EDT Narrative [facility] - 12/17/2024 10:50 AM EDT Authorizing ProviderResult TypeResult StatusCorey Nova DOCLINISYNCFinal Result Performing OrganizationAddressCity/State/ZIP CodePhone Number [facility] from Last 3 Months Insurance
--- OUTSIDE RECORDS SUMMARY | 2025-01-29 07:48 | XMS_ITS | CCD ---
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 Facilities Name Role Phone Ben Rose Unavailable Mikael PRODUCTION STAGE MANAGER-C, Angeles A Admitting Unavailable Mikael PRODUCTION STAGE MANAGER-C, Angeles A Attending Unavailable Mikael PRODUCTION STAGE MANAGER-C, Angeles A Primary Care Unavailable Mikael PRODUCTION STAGE MANAGER-C, Angeles A Attending Unavailable Mikael PRODUCTION STAGE MANAGER-C, Angeles A Primary Care Unavailable NOVA ., DR MORGAN Consulting Unavailable NOVA ., DR MORGAN Attending Unavailable NOVA ., DR MORGAN Admitting Unavailable REQUEST, DR NONE LISTED Primary Care Unavaila ble MIKAEL, ANGELES Attending Unavailable MIKAEL, ANGELES Primary Care Unavailable MIKAEL, ANGELES Admitting Unavailable NOVA ., DR MROGAN Consulting Unavailable NOVA ., DR MORGAN Attending [...] Unavailable NOVA ., DR MORGAN Attending Unavailable LELAND, DR EDITH Corey Consulting Unavailable NOVA ., DR MORGAN Admitting Unavailable NOVA ., DR MORGAN Consulting Unavailable NOVA ., DR MORGAN Consulting Unavailable NOVA ., DR MORGAN Admitting Unavailable REQUEST, DR NONE LISTED Primary Care Unavaila ble NOVA ., DR MORGAN Attending Unavailable MIKAEL, ANGELES Primary Care Unavailable NOVA ., DR MORGAN Attending Unavailable LELAND, DR EDITH Corey Consulting Unavailable NOVA ., [...] Attending Unavailable NOVA, ASIF Attending Unavailable Marker Jennifer NINO Attending Provider MarkerJennifer Attending Unavailable MarkerJennifer Admitting Unavailable Britt Harris APRN Primary Care Provider Ben Rose MD Attending Provider Britt Harirs APRN Attending Provider [phone] Britt Harris APRN Primary Care Provider Asif Bhatt DO Attending Provider Allergies Allergy ClassificationReported Allergen(s)Allergy TypeDate of OnsetReaction(s) Facility (3 sources)Penicillin GDrug [facility]ergyUnk[facility]Har[facility] Netlist Other (1 source)busPIRone; Translations: [buspirone hcl][facility] (1 source)Coconut extract; Translations: [coconut][facility] Repository (20 sources)Penicillins; Translations: [penicillins]Propensity to adverse reactions to drug (disorder)16[facility]36[facility]42[facility] (1 source)[facility]icillinD[facility] Repository (1 source)PenicillinDrug [facility]ergyGen[facility] Hospital Repository (20 sources)busPIRoneDrug [id number] Work Phone: (20 sources)MinocyclineDrug [id number] Healthcare Medications Current Medications MedicationDrug Class(es)DatesSig (Normalized)Sig (Original)azithromycin 250 mg oral tablet (20 sources)Macrolide AntimicrobialStart: 03-27-2023 End: 02-23-1358ubctswtvnoiz (Zithromax Z-Fredrick) 250 MG tablet Indications: COVID- 19 Take as directed 6 tablet 03/27/2023 05/11/2024 DiscontinuedCetirizine (2 sources)Histamine-1 Receptor AntagonistZyrTEC Allergy Activecitalopram 20 mg oral tablet (20 sources)Serotonin Reuptake InhibitorStart: 05-24-2024 End: 60-52-9608rptm 1 tablet by mouth at bedtimecitalopram (CeleXA) 10 MG tablet Indications: Anxiety Take 1 tablet (10 mg) by mouth at bedtime 30 tablet 11 05/24/2024 07/05/2024 DiscontinuedStart: 06-11-2023 End: 34-88-1332ranl 1 tablet by mouth once dailyCitalopram 20 mg tablet Discontinued 20 MG PO Daily August 06, 2023 12:00am January 30, 2024 9:06am esomeprazole 40 mg delayed release oral capsule (20 sources)Proton Pump InhibitorStart: 27-23-7131Papqzujuqfzq Magnesium 40 mg capsule,delayed release(DR/EC) Active 40 MG PO Twice daily 60 30 11 September 08, 2024 12:00am Take 1 capsule orally 30 minutes before morning meal and 30 minutes before evening meal. Complies with drug therapyStart: 04-15-2024 End: 82-74-6118Vsofxjwtizpc Magnesium 40 mg capsule,delayed release(DR/EC) Discontinued 40 MG PO Daily 30 30 August 12, 2024 2:14pm November 17, 2024 9:34am Take 1 capsule orally 30 minutes before morning meal.Start: 02-02-2024 End: 39-79-9452plgi 1 capsule by mouth once dailyEsomeprazole Magnesium 40 mg capsule,delayed release(DR/EC) Discontinued 40 MG PO Daily 30 30 February 02, 2024 12:00am March 25, 2024 2:17pmStart: 10-29-2023 End: 44-01-6902fvqd 1 capsule by mouth once dailyEsomeprazole Magnesium 40 mg capsule,delayed release(DR/EC) Discontinued 40 MG PO Daily 30 30 October 29, 2023 12:00am January 30, 2024 9:06amhyoscyamine sulfate 0.125 mg sublingual tablet (2 sources)Start: 94-65-5554kgjc 1 tablet under the tongue four times daily as neededHyoscyamine Sulfate 0.125 MG 1 tablet under the tongue and allow to dissolve as needed Sublingual FOUR TIMES DAILY NEEDED for 30 days PRN Nov, Activeloratadine 10 mg oral tablet (5 sources)Start: 61-37-7138bmcx 1 tablet by mouth once dailyLoratadine (Claritin) 10 mg tablet Active 10 MG PO Daily August 05, 2023 12:00am Complies with drug therapytake 1 tablet by mouth every twenty-four hoursClaritin 10 MG 1 tablet Orally Once a day Activemeclizine hydrochloride 25 mg oral tablet (8 sources)AntiemeticStart: 01-30-2024 End: 45-93-1718bcgs 1 tablet by mouth three times daily as needed for dizziness Meclizine 25 mg tablet Active 25 MG PO Three times daily as needed for dizziness 90 30 0 January 30, 2024 9:25am Vertigo Dizziness and giddiness Complies with drug therapymethylPREDNISolone (20 sources)CorticosteroidStart: 03-27-2023 End: 07-54-0853cnucbbLXIFEXUiwwfg (Medrol Dospak) 4 MG tablets Indications: COVID-19 As directed 21 tablet 03/27/2023 05/11/2024 DiscontinuedStart: 31-32-8851lpjuzjEBQEEWTuliwe (Medrol Dospak) 4 MG tablets Indications: COVID-19 As directed 21 tablet 03/27/2023 ActiveMultivitamin With Minerals (Multiple Vitamin-Minerals) tablet (1 source)Start: 05-90-5144uikj 1 tablet by mouth once dailyMultivitamin With Minerals (Multiple Vitamin-Minerals) tablet Active 1 TAB PO Daily January 25, 2025 12:00am Complies with drug therapynitrofurantoin, macrocrystals 25 mg / nitrofurantoin, monohydrate 75 mg oral capsule (3 sources)Nitrofuran AntibacterialStart: 12-12-2023 End: 11-46-5236take 1 capsule by mouth in the morningnitrofurantoin, macrocrystal-monohydrate, (Macrobid) 100 MG capsule Indications: UTI symptoms Take 1 capsule (100 mg) by mouth in the morning and 1 capsule (100 mg) before bedtime. Do all this for 7 days. 14 capsule 12/12/2023 12/19/2023 Active Agtwnl12-Usjk Fum-Folic Ac-Om3 (One Daily ) 28-800-440 mg-mcg-mg combo pack (2 sources)Start: 82-82-9964Vquxur87-Iron Fum-Folic Ac-Om3 (One Daily ) 28-800-440 mg-mcg-mg combo pack Active PKG PO January 30, 2024 12:00am Probiotic (3 sources)Probiotic EVERY OTHER MONTH Activepromethazine hydrochloride 12.5 mg oral tablet (20 sources)PhenothiazineStart: 11-24-2023 End: 97-95-7339jxxy 1 tablet by mouth every six hours as needed for nausea and nausea, then take 1 tablet by mouthevery six hours as needed for nausea and nauseapromethazine (Phenergan) 12.5 MG tablet Indications: Nausea and vomiting in Take 1 tablet(12.5 mg) by mouth every 6 (six) hours if needed for nausea or vomiting for up to 30 doses Take 1 tablet by mouth every 6 hours as needed for nausea. 30 tablet 11/24/2023 05/11/2024 Discontinued Completed/Discontinued Medications MedicationDrug Class(es)DatesSig (Normalized)Sig (Original)24 hr buPROPion hydrochloride 150 mg extended release oral tablet (20 sources)AminoketoneStart: 04-12-2024 End: 87-89-3996vmdy 1 tablet by mouth twice dailyBupropion Hcl 150 mg tablet extended release 24 hr Discontinued MG PO Twice daily April 121:42am September 08, 2024 2:15pmStart: 03-25-2024 End: 40-72-7996mihc 1 tablet by mouth every twenty-four hoursBupropion Hcl 150 mg tablet extended release 24 hr Discontinued MG PO March 25, 2024 1:00am April 12, 2024 11:42amStart: 03-25-2024 End: 50-50-8383qlos 1 tablet by mouth every twenty-four hoursBupropion Hcl 150 mg tablet extended release 24 hr Discontinued MG PO March 25, 2024 1:00am April 12, 2024 11:42amStart: 03-15-2024 End: 72-43-8530knuw 1 tablet by mouth every twelve hours in the morningbuPROPion SR (Wellbutrin SR) 150 MG 12 hr tablet Indications: Anxiety Take 1 tablet (150 mg) by mouth in the morning and 1 tablet (150 mg) before bedtime. Do not crush, chew, or split.. 180 tablet 1 03/15/2024 07/05/2024 DiscontinuedStart: 02-18-2024 End: 07-41-0876gyvw 1 tablet by mouth once dailybuPROPion XL (Wellbutrin XL) 150 MG 24 hr tablet Indications: Anxiety, generalized (CMS/HCC) Take 1tablet (150 mg) by mouth Daily Do not crush, chew, or split. 30 tablet 11 02/18/2024 02/17/2025 ActivebusPIRone hydrochloride 5 mg oral tablet (2 sources)Start: 11-17-2024 End: 61-74-8606ooag 1 tablet by mouth twice dailyBuspirone 5 mg tablet Discontinued 5 MG PO Twice daily 60 30 0 November 17, 2024 12:00am January 25, 2025 11:01am Anxiety Anxiety disorder, unspecifieddocusate sodium 100 mg oral capsule (20 sources)Start: 01-07-2024 End: 87-75-6363kryv 1 capsule by mouth twice daily as needed for constipation docusate sodium (Colace) 100 MG capsule Indications: Constipation during in first trimester Take 1 capsule (100 mg) by mouth 2 (two) times a day as needed for constipation 60 capsule 5 01/07/2024 06/07/2024 Discontinued hydrOXYzine hydrochloride 10 mg oral tablet (6 sources)AntihistamineStart: 06-07-2024 End: 90-44-9109ltqb 1 tablet by mouth every six hours as needed for anxiety and anxietyhydrOXYzine HCl (Atarax) 10 MG tablet Indications: Anxiety Take 1 tablet (10 mg) by mouth every 6 (six) hours if needed for itching for up to 30 doses 30 tablet 06/07/2024 07/05/2024 DiscontinuedLactobacillus Combination No.4 (Probiotic) 3 billion cell Capsule (4 sources)Start: 02-22-2021 End: 06-63-1269okwo 3 capsules by mouth once dailyLactobacillus Combination No.4 (Probiotic) 3 billion cell Capsule Discontinued 3000 MMU CELLS PO Daily February 22, 2021 1:00am January 30, 2024 9:09ammetoclopramide 10 mg oral tablet (20 sources)Dopamine-2 Receptor AntagonistStart: 04-14-2024 End: 98-28-9852qjfsmaifsibyvj (Reglan) 10 MG tablet Indications: Heartburn during in second trimester Take 1 tablet (10 mg) by mouth in the morning and 1 tablet (10 mg) at noon and 1 tablet (10 mg) in theevening. Take before meals. Take 1 tablet by mouth 30 minutes prior to meals 3 times daily as needed for nausea.. 90 tablet 2 05/05/2024 07/05/2024 DiscontinuedStart: 12-11-2023 End: 51-26-0951Ztpthgqqwpfgzz Hcl 10 mg tablet Discontinued 10 MG PO as needed September 08, 2024 2:15pm January 11:02amMisc. Devices (Medela Double Breast Pump) misc (20 sources)Start: 11-15-2022 End: 84-34-1691Ojht. Devices (Medela Double Breast Pump[place] [facility] [place]: Mother currently breast-feeding 1 Device if needed (Use for based on desired schedule). 1 each 11/15/2022 04/27/2024 Discontinued (Other)Start: 67-46-0028Suns. Devices (Medela Double Breast Pump[place] [facility] [place]: Mother currently breast-feeding 1 Device if needed (Use for based on desired schedule). 1 each 11/15/2022 Activeomeprazole 40 mg delayed release oral capsule (20 sources)Proton Pump InhibitorStart: 03-25-2024 End: 78-17-3412slzt 1 capsule by mouth once dailyOmeprazole 40 mg capsule,delayed release(DR/EC) Discontinued 40 MG PO Daily 30 30 March 1:00am August 12, 2024 2:13pmStart: 02-02-2024 End: 65-91-7799Pirfrflfft 20 mg capsule,delayed release(DR/EC) Discontinued 20 MG PO March 25, 2024 1:00am April 12, 2024 11:41amStart: 01-30-2024 End: 28-75-2835tjlm 1 capsule by mouth once dailyOmeprazole 40 mg capsule,delayed release(DR/EC) Discontinued 40 MG PO Daily January 30, 2024 12:00am February 02, 2024 10:05amStart: 08-28-2023 End: 43-96-8262qkeu 1 capsule by mouth once dailyOmeprazole 40 mg capsule,delayed release(DR/EC) Discontinued 40 MG PO Daily 30 30 August 28, 2023 12:00am October 29, 2023 1:39pm 30 minutes prior to eatingOmeprazole 20 mg capsule,delayed release(DR/EC) (2 sources)Start: 03-25-2024 End: 53-27-8626Yygqmlmurt 20 mg capsule,delayed release(DR/EC) Discontinued 20 MG PO March 25, 2024 1:00am April 12, 2024 11:41amondansetron 4 mg disintegrating oral tablet (20 sources)Serotonin-3 Receptor AntagonistStart: 04-19-2024 End: 59-55-5106uidy 1 tablet by mouth every eight hours as needed for nausea ondansetron ODT (Zofran-ODT) 4 MG disintegrating tablet Take 4 mg by mouth every 8 (eight) hours ifneeded for nausea 04/19/2024 07/05/2024 DiscontinuedStart: 01-26-2024 End: 14-86-5090dlsm 1 tablet by mouth every six hours for nauseaondansetron ODT (Zofran-ODT) 4 MG disintegrating tablet Indications: Nausea and vomiting during Take 1 tablet (4 mg) by mouth every 6 (six) hours if needed for nausea or vomiting 30 tablet 11 01/26/2024 02/25/2024 ExpiredStart: 11-17-2023 End: 23-81-2499msck 1 tablet by mouth every six hours for nauseaondansetron ODT (Zofran-ODT) 4 MG disintegrating tablet Indications: Nausea and vomiting in Take 1 tablet (4 mg) by mouth every 6 (six) hours if needed for nausea or vomiting 30 tablet 3 11/17/2023 12/17/2023 Activepantoprazole 40 mg delayed release oral tablet (20 sources)Proton Pump InhibitorStart: 04-19-2024 End: 43-12-3076Lmbajqqfqyed (Protonix) 40 mg tablet,delayed release (DR/EC) Discontinued 40 MG PO Daily 30 30 April 19, 2024 1:00am August 12, 2024 2:13pm Take 1 tablet orally 30 minutes before morning meal.Start: 02-28-2021 End: 18-38-6879whwm 1 tablet by mouth once dailyPantoprazole 40 mg tablet,delayed release (DR/EC) Discontinued 40 MG PO Daily August 05, 2023 12:00am August 05, 2023 11:18amPrenatal 75-Iron Wbh-Rmlxw-Gn0 (One Daily ) 28-800-440 mg-mcg-mg combo pack (2 sources)Start: 01-30-2024 End: 33-06-8274Zxnarcti 75-Iron Tdq-Kqwsu-Mj0 (One Daily ) 28-800-440 mg-mcg-mg combo pack Discontinued PKG PO January 30, 2024 12:00am January 25, 2025 11:02amStart: 75-41-3562Fgvqzkdt 75-Iron Rpb-Shcye-Mb6 (One Daily ) 28-800-440 mg-mcg-mg combo pack Active PKG PO January 30, 2024 12:00am Complies with drug therapyVitamin D (4 sources)Start: 08-06-2023 End: 13-07-7960agpmxfe d Discontinued PO August 06, 2023 12:00am January 30, 2024 9:09amWomens Multi (4 sources)Start: 08-06-2023 End: 70-47-4535Rqefqz Multi Discontinued PO August 06, 2023 12:00am January 30, 2024 9:09am Problems Active Problems Problem ClassificationProblemDateDocumented DateEpisodic/ChronicAbdominal pain (9 sources)Epigastric pain; Translations: [Lower abdominal pain, unspecified] EpisodicComment on above:Problem List clean-up per request of Phys. EHR Cmte Adjustment disorders (20 sources)Adjustment disorder with depressed mood; Translations: [Adjustment disorder with depressed mood]Onset: 726321-34-3024MlssibmTwblbsp disorders (20 sources)Anxiety; Translations: [Anxiety disorder, unspecified]Onset: 907476-41-4099OnweullIehxrpraxxy and hemorrhagic disorders (8 sources)Easy bruising; Translations: [Spontaneous ecchymoses]08-06-2023 EpisodicConditions associated with dizziness or vertigo (11 sources)Dizziness and giddiness; Translations: [Dizziness]Onset: 04-26-2022 EpisodicDeficiency and other anemia (3 sources)Iron deficiency anemia; Translations: [Iron deficiency anemia, unspecified]EpisodicDeficiency and other anemia (2 sources)Deficiency and other anemiaEsophageal disorders (20 sources)Gastroesophageal reflux disease; Translations: [Gastro-esophageal reflux disease without esophagitis]Onset: 55-66-7562LgswdpcMerzoto on above: Problem List clean-up per request of Phys. EHR CmteGastritis and duodenitis (7 sources)Gastritis; Translations: [Gastritis, unspecified, without bleeding] 11-30-7654ZdrghbwzYwbzryit; including migraine (3 sources)Tension-type headache; Translations: [Tension-type headache, unspecified, not intractable]ChronicHemorrhage during ; abruptio placenta; placenta previa (1 source)Low lying placenta NOS or without hemorrhage, second trimester; Translations: [LOW LYING PL NOS W/OHEMORR 2ND TRI]Onset: 20-58-0197Lmwkgtfq Immunizations and screening for infectious disease (4 sources)Encounter for screening for infections with a predominantly sexual mode of transmission; Translations: [Encounter for screening for human papillomavirus (HPV)]Onset: 625556-98-9729UqfjddgkHmhfgsh and fatigue (4 sources)Fatigue; Translations: [Other fatigue]49-54-4876XwxxgjheLkxqunhvp disorders (20 sources)Irregular menstruation, unspecified; Translations: [Dysmenorrhea, unspecified]Onset: 37-14-9787QbeptqhMrajmy and vomiting (1 source)NauseaEpisodicNonspecific chest pain (4 sources)Atypical chest pain; Translations: [Other chest pain]04-12-2024 EpisodicNutritional deficiencies (4 sources)Vitamin D deficiency; Translations: [Vitamin D deficiency, unspecified]38-44-6848FxbgrdcJtpvy acquired deformities (4 sources)Scoliosis, unspecified; Translations: [SCOLIOSIS UNSPECIFIED]Onset: 24-61-8957IeurcxuDxywg acquired deformities (20 sources)Acquired scoliosis; Translations: [Scoliosis, unspecified]Onset: 908863-12-3159FvyxbemIxaew complications of (1 source)Other specified related conditions, second trimester; Translations: [OTH SPEC PREG RELATED COND 2ND TRI]Onset: 64-60-6852IurizdftEwyxh complications of (2 sources)Vomiting of , unspecified; Translations: [Unspecified vomiting of , unspecified as to episode of care or not applicable] 20-89-7529PcqxkiisQocvu complications of (2 sources)Diseases of the digestive system complicating , first trimester; Translations: [Other current conditions classifiable elsewhere of mother, antepartum condition or complication]55-70-9633TzkevxllCcxpi complications of (2 sources)Alpha-fetoprotein level - finding; Translations: [Abnormal hematological finding on screening of mother]40-16-5052QhlddruuVzynb complications of (2 sources) size does not accord with dates; Translations: [Uterine size- date discrepancy, unspecified trimester]60-46-3800HktawgfxRgynk disorders of stomach and duodenum (3 sources)Nonulcer dyspepsia; Translations: [Functional dyspepsia]EpisodicOther disorders of stomach and duodenum (1 source)Functional dyspepsiaEpisodicOther disorders of stomach and duodenum (4 sources)Disorder of function of stomach; Translations: [Disease of stomach and duodenum, unspecified]12-44-0991YlcbjyuqKmzbfjs on above:Problem List clean- up per request of Phys. EHR CmteOther female genital disorders (4 sources)Other specified noninflammatory disorders of vagina; Translations: [OTH SPEC NONINFLAMMATORY D/O VAGINA]Onset: 01-90-8865EjhcdhxgGhtbi gastrointestinal disorders (1 source)Abdominal distension (gaseous)EpisodicOther gastrointestinal disorders (5 sources)Constipation; Translations: [Constipation, unspecified]03-25-2024 EpisodicOther gastrointestinal disorders (1 source)Constipation, unspecifiedEpisodicOther gastrointestinal disorders (4 sources)Diarrhea; Translations: [Diarrhea, unspecified]15-61-6567Jylpjtpy Comment on above:Problem List clean-up per request of Phys. EHR CmteOther screening for suspected conditions (not mental disorders or infectious disease) (20 sources)Encounter for screening for diabetes mellitus; Translations: [Encounter for screening, unspecified]Onset: 82-42-4505MnxwfdvlBrkmq skin disorders (4 sources)Loss of hair; Translations: [Nonscarring hair loss, unspecified] 66-17-2246SvpilrumOcewb upper respiratory disease (20 sources)Allergic rhinitis; Translations: [Allergic rhinitis, unspecified] Onset: 595780-30-1076VgnoyldAfequiby codes; unclassified (1 source)21 weeks gestation of ; Translations: [21 WEEKS GESTATION OF ]Onset: 67-38-3723YgkdfabqYlkbklka codes; unclassified (1 source)16 weeks gestation of ; Translations: [16 WEEKS GESTATION OF ]Onset: 10-02-3753IdtxgyzuSdvgbgta codes; unclassified (2 sources)Gestation period, 12 weeks; Translations: [12 weeks gestation of ]08-85-7093ThyjokihDmqfupvb codes; unclassified (2 sources)Gestation period, 17 weeks; Translations: [17 weeks gestation of ]97-18-7617DfgfjeliQpjpzczv codes; unclassified (2 sources)Gestation period, 21 weeks; Translations: [21 weeks gestation of ]19-40-4545KblqajwqIzyepqvc codes; unclassified (2 sources)Gestation period, 28 weeks; Translations: [28 weeks gestation of ]21-28-4471KfqmabobSzihlgya codes; unclassified (2 sources)Gestation period, 30 weeks; Translations: [30 weeks gestation of ]24-54-1197QzesopxwAtssxtyq codes; unclassified (2 sources)Gestation period, 32 weeks; Translations: [32 weeks gestation of ]66-83-0014RrfduzjqMtfldgnp codes; unclassified (2 sources)Gestation period, 34 weeks; Translations: [34 weeks gestation of ]55-80-1732ZfykzxlgUldrmucm codes; unclassified (4 sources)Gestation period, 26 weeks; Translations: [26 weeks gestation of ]78-18-0142IvbsqpljJmxxhbl (1 source)Syncope and collapse; Translations: [SYNCOPE AND COLLAPSE]Onset: 95-94-2395WlgdqlmlYpwtcymqjacn (1 source)LOW BACK PAIN, UNSPECIFIED; Translations: [LOW BACK PAIN, UNSPECIFIED] Onset: 11-12-2021 Past or Other Problems Problem ClassificationProblemDateDocumented DateEpisodic/ChronicGastrointestinal hemorrhage (20 sources)Blood-tinged feces; Translations: [Melena]Onset: 09-13-2022 62-21-7425QvhsyzwcXuqrxyy (20 sources)Opportunistic mycosis; Translations: [Other specified mycoses]Onset: 561363-25-9172CmfksgwfAiznx connective tissue disease (1 source)Pain in right leg; Translations: [PAIN IN RIGHT LEG]Onset: 11-12-2021 EpisodicOther connective tissue disease (1 source)Abnormal posture; Translations: [ABNORMAL POSTURE]Onset: 11-15-2021 EpisodicOther non-traumatic joint disorders (20 sources)Multiple joint pain; Translations: [Pain in unspecified joint]Onset: 856492-81-6380KzsqxhqyIetfl and delivery including normal (20 sources)Encounter for supervision of normal , unspecified, unspecified trimester; Translations: [Encounter for supervision of normal first , first trimester]Onset: 09-66-7149JedkjkdxUsbjq skin disorders (20 sources)Acne; Translations: [Acne, unspecified]Onset: EpisodicOther skin disorders (20 sources)Subcutaneous nodule; Translations: [Localized swelling, mass and lump, unspecified]Onset: 062855-92-2233OpltcjjdWfxnc upper respiratory infections (20 sources)Acute upper respiratory infection; Translations: [Acute upper respiratory infection, unspecified]Onset: 487416-05-6995SxvqtuisQixtkbk cyst (1 source)Other ovarian cyst, right side; Translations: [OTHER OVARIAN CYST RIGHT SIDE]Onset: 02-01-2820VedcoznfMvuidijs codes; unclassified (1 source)9 weeks gestation of ; Translations: [9 WEEKS GESTATION OF ]Onset: 41-95-5166WyglqmlpBqraismt codes; unclassified (20 sources)FH: Thyroid disorder; Translations: [Family history of other endocrine, nutritional and metabolic diseases]Onset: EpisodicResidual codes; unclassified (20 sources)Gestation period, 25 weeks; Translations: [25 weeks gestation of ]Onset: 453986-16-0791CzwhttylInizgovonhw; intervertebral disc disorders; other back problems (20 sources)Low back pain; Translations: [Low back pain]Onset: 09-13-2022 45-84-2209Qcwjdjjt Results Test NameValueInterpretationReference RangeFacilityALL CBC WITH AUTO DIFFon 46-12-1887UGOBKQPQZ ABSOLUTE [id number] HealthcareBasophils/100 WBC (Bld)0.5 %0.2 - 2.0 %[facility] HealthcareEosinophils/100 WBC (Bld)2 %0.9 - 7.0 %[facility] Erythrocyte distribution width (RBC) [Ratio]13.1 %11.0 - 15.0 %[facility] Hematocrit (Bld) [Volume fraction]39.3 %36.0 - 48.0 %[facility] HealthcareHemoglobin (Bld) [Mass/Vol]12.8 g/dL12.0 - 16.0 g/dLFitzgibbon HospitalIMMATURE GRANULOCYTES ABS AUTO0.01NOCarondelet HealthImmature granulocytes/100 WBC (Bld)0.2 %0.0 - 0.5 % [facility] HospitalLYMPHOCYTES ABSOLUTE AUTO1.9[facility] HealthcareLymphocytes/100 WBC (Bld)33.7 %20.5 - 60.0 %[facility] SystemH (RBC) [Entitic mass]28 pg26.7 - 34.0 pgFitzgibbon HospitalMCHC (RBC) [Mass/Vol]32.6 g/dL29.9 - 35.2 g/dLFitzgibbon Hospital MCV (RBC) [Entitic vol]86 fL81.0 - 99.0 fLFitzgibbon HospitalMONOCYTES ABSOLUTE AUTO 0.4NOCarondelet HealthMonocytes/100 WBC (Bld)6.7 %1.7 - 12.0 %[facility] NEUTROPHILS ABSOLUTE AUTO3.2[facility] HealthNeutrophils/100 WBC (Bld)56.9 %43.0 - 75.0 %[facility] HospitalPlatelet mean volume (Bld) [Entitic vol]10.4 fL9.5 - 13.5 fLNOMS Parkview HealthTBH EO #0.1N[facility] HealthTBH [id number] County Memorial Hospital RBC4.57 NOMKansas City Va Medical CenterTB WBC5.6NOHI HealthcareCLINISYNCNOMS HealthcareBasophils Auto (Bld) [#/Vol]Ordered By: Asif Bhatt on 39-79-1057Fhimmdxgi (Bld) [#/Vol]0.0 10 3/uL0.0-0.1FHolzer Medical Center – JacksonBasophils/100 WBC Auto (Bld)Ordered By: Asif Bhatt on 74-22-5983Astwsgtpp/100 WBC (Bld)0.5 %0.2-2.0[facility] CenterEosinophils/100 WBC Auto (Bld)Ordered By: Asif Bhatt on 17-87-5972Drwrrkifydk/100 WBC (Bld)2.0 %0.9-7.0[facility] Erythrocyte distribution width Auto (RBC) [Ratio]Ordered By: Asif Bhatt on 12-38-3089Jcqewztjpub distribution width (RBC) [Ratio]13.1 %11.0-15.0[facility] CenterHematocrit Auto (Bld) [Volume fraction]Ordered By: Asif Bhatt on 03-24-7878Dlwhilfgca (Bld) [Volume fraction]39.3 %36.0-48.0[facility] CenterHemoglobin [Mass/volume] in BloodOrdered By: Asif Bhatt on 37-37-0374Zxcyfzjkmm (Bld) [Mass/Vol]12.8 g/dL12.0-16.0[facility] CenterLaboratory - Chemistry and Chemistry - challengeOrdered By: Asif Bhatt on 32-17-4737Khmullzq [Mass/Vol]41.0 ng/mL8.0-252.0[facility] CenterTransferrin [Mass/Vol]321 mg/iV841-504CpdqzwbnhCincinnati Va Medical CenterComment on above:Performed at: [facility] [id number] Director: Jose Alejandro Matthews PhD, Phone: [phone] Laboratory - Hematology and Cell countsOrdered By: Asif Bhatt on 12-17-2024 Immature granulocytes/100 WBC (Bld)0.2 %0.0-0.5FHolzer Medical Center – Jackson Leukocytes [#/volume] corrected for nucleated erythrocytes in Blood by Automated counOrdered By: Asif Bhatt on 65-74-9802DIK corrected for nucl RBC Auto (Bld) [#/Vol]5.6 10 3/uL4.0-11.0[facility] CenterLymphocytes Auto (Bld) [#/Vol]Ordered By: Asif Bhatt on 77-58-4331Ldkohsiseec (Bld) [#/Vol]1.9 10 3/uL1.2-3.8[facility] CenterLymphocytes/100 WBC Auto (Bld) Ordered By: Asif Bhatt on 43-25-2118Rsyobxeasmr/100 WBC (Bld)33.7 %20.5-60.0 [facility] Auto (RBC) [Entitic mass]Ordered By: Asif Bhatt on 38-09-1010WJX (RBC) [Entitic mass]28.0 pg26.7-34.0[facility] CenterMCHC Auto (RBC) [Mass/Vol]Ordered By: Asif Bhatt on 12-17-2024 MCHC (RBC) [Mass/Vol]32.6 g/dL29.9-35.2FHolzer Medical Center – JacksonMCV Auto (RBC) [Entitic vol]Ordered By: Asif Bhatt on 37-07-4957WCV (RBC) [Entitic vol] 86.0 fL81.0-99.0[facility] CenterMonocytes Auto (Bld) [#/Vol] Ordered By: Asif Bhatt on 57-96-2541Odpmqdkpe (Bld) [#/Vol]0.4 10 3/uL0.3-0.8 [facility] CenterMonocytes/100 WBC Auto (Bld)Ordered By: Asif Bhatt on 88-66-5223Lbmyqipzu/100 WBC (Bld)6.7 %1.7-12.0[facility] CenterNeutrophils Auto (Bld) [#/Vol]Ordered By: Asif Bhatt on 13-17-5153Ocqtejdfsxq (Bld) [#/Vol]3.2 10 3/uL1.4-6.5FHolzer Medical Center – JacksonNeutrophils/100 WBC Auto (Bld)Ordered By: Asif Bhatt on 12-17-2024 Neutrophils/100 WBC (Bld)56.9 %43.0-75.0[facility] CenterNo Panel InformationOrdered By: Asif Bhatt on 46-92-1412Kwholikpanv # (Auto)0.1 10 3/uL0.0-0.7FHolzer Medical Center – JacksonImmature Granulocyte # (Auto)0.01 10 3/uL0.00-0.03[facility] CenterPlatelet mean volume Auto (Bld) [Entitic vol]Ordered By: Asif Bhatt on 43-19-6534Pzumyfyv mean volume (Bld) [Entitic vol]10.4 fL9.5-13.5FHolzer Medical Center – JacksonPlatelets Auto (Bld) [#/Vol]Ordered By: Asif Bhatt on 35-61-5078Gqnttagic (Bld) [#/Vol]225 10 3/fU497-310OyxyqvvrwCincinnati Va Medical CenterRBC Auto (Bld) [#/Vol]Ordered By: Asif Bhatt on 47-92-3403PWY (Bld) [#/Vol]4.57 10 6/uL4.20-5.40[facility] CenterIron binding capacity [Mass/volume] in Serum or Plasma Ordered By: Britt Harris on 86-76-3383Kqjf binding capacity [Mass/Vol] 395.0 ug/dL250.0-450.0[facility] CenterIron saturation [Mass Fraction] in Serum or PlasmaOrdered By: Britt Harris on 61-96-9790Sqxw saturation [Mass fraction]17.2 %[facility] CenterLaboratory - Chemistry and Chemistry - challengeOrdered By: Britt Harris on 11-19-2024 Iron [Mass/Vol]68.0 ug/dL50.0-170.0[facility] CenterTSH Qn1.283 m[IU]/L0.358-3.740[facility] CenterBasophils Auto (Bld) [#/Vol] on 90-95-0171Lsgakjzxz (Bld) [#/Vol]Automated basophil count0.0-0.1FHolzer Medical Center – JacksonBasophils/100 WBC Auto (Bld)on 01-56-3470Trewcgsly/100 WBC (Bld)Automated basophil %0.2-2.0[facility] Eosinophils/100 WBC Auto (Bld)on 65-61-4914Unuwfkvjvzr/100 WBC (Bld)Automated eosinophil %0.9-7.0[facility] CenterErythrocyte distribution width Auto (RBC) [Ratio]on 49-00-5083Crxjgbrtkdp distribution width (RBC) [Ratio]Erythrocyte distribution width [Ratio] by Automated tmdviAxcd73.0-15.0 [facility] CenterEstimated glomerular filtration rate (GFR) non- Americanon 35-47-4454ICM/1.73 sq M.predicted among non-blacks MDRD (S/P/Bld) [Vol rate/Area]Estimated glomerular filtration rate (GFR) non->=60 mL/min/1.73m 2FHolzer Medical Center – JacksonFibrin D-dimer [Presence] in Platelet poor plasma by Latex agglutinationon 02-02-4661Xaonze D- dimer LA Ql (PPP)Fibrin D-dimer [Presence] in Platelet poor plasma by Latex agglutinationCritically high<=0.59[facility] CenterComment on above:RESULTS CALLED TO WILFRID MEDINA RN @BY Linda Chi [address]Increases in D-Dimer concentration observed withthromboembolic events can be variable due to localization,size, and age of the thrombus. Therefore, a thromboembolicevent cannot be diagnosed with certainty on the basis of thereference range. D-Dimers may also be elevated for a varietyof disorders including advanced age, , coronarydisease, cancer, liver disease, infection, inflammation,hematoma, DIC, trauma, post-surgery,diabetes, thrombolyticor anticoagulant therapy, stress, and generalizedhospitalization. Globulin Calc (S) [Mass/Vol]on 25-24-0041Cqenxikp (S) [Mass/Vol]Serum globulin measurement by calculation (mass/volume)[facility] Hematocrit Auto (Bld) [Volume fraction]on 14-60-7955Hkyhxjhstx (Bld) [Volume fraction]Hematocrit [Volume Fraction] of Blood by Automated qtqanDai11.0-48.0 [facility] CenterHemoglobin [Mass/volume] in Bloodon 07-14-2024 Hemoglobin (Bld) [Mass/Vol]Hemoglobin [Mass/volume] in NrjphKmt39.0-16.0 [facility] CenterLaboratory - Chemistry and Chemistry - challengeon 19-99-8055Ampmtei [Mass/Vol]2.9 g/dLLow3.4-5.0[facility] CenterALP [Catalytic activity/Vol]69 U/U65-429IwnomyfewCincinnati Va Medical CenterALT [Catalytic activity/Vol]16 U/M03-45DdmxmeivpCincinnati Va Medical Center AST [Catalytic activity/Vol]14 U/CRgu08-47SxvylmbiqCincinnati Va Medical Center Bilirubin [Mass/Vol]0.5 mg/dL0.2-1.0[facility] CenterCalcium [Mass/Vol]8.4 mg/dLLow8.5-10.1FHolzer Medical Center – JacksonChloride [Moles/Vol]105 mmol/L59-224LcfxdoymdCincinnati Va Medical CenterCO2 [Moles/Vol]26.8 mmol/L21.0-32.0[facility] CenterCreatinine [Mass/Vol]0.56 mg/dL 0.55-1.02[facility] CenterGFR/1.73 sq M.predicted MDRD (S/P/Bld) [Vol rate/Area]mL/min/{1.73_m2}>=60 mL/min/1.73m 2FHolzer Medical Center – JacksonGlucose [Mass/Vol]98 mg/fG86-747XdwjxbxiuCincinnati Va Medical CenterLactate [Moles/Vol]0.9 mmol/L0.4-2.0[facility] CenterPotassium [Moles/Vol]3.9 mmol/L3.5-5.1FHolzer Medical Center – JacksonProtein [Mass/Vol] 6.2 g/dLLow6.4-8.2FDayton VA Medical Centerodium [Moles/Vol]140 mmol/L 136-145[facility] CenterUrea nitrogen [Mass/Vol]9.0 mg/dL 7.0-18.0[facility] CenterUrea nitrogen/Creatinine [Mass ratio] 16.1 mg/mgCincinnati Va Medical CenterLaboratory - Hematology and Cell countson 70-61-9443Trnasbkn granulocytes/100 WBC (Bld)0.3 %0.0-0.5FHolzer Medical Center – JacksonLeukocytes [#/volume] corrected for nucleated erythrocytes in Blood by Automated counon 73-99-5639YVA corrected for nucl RBC Auto (Bld) [#/Vol]Leukocytes [#/volume] corrected for nucleated erythrocytes in Blood by Automated coun4.0-11.0[facility] CenterLymphocytes Auto (Bld) [#/Vol]on 49-08-9325Aiwbenurwzr (Bld) [#/Vol]Lymphocytes [#/volume] in Blood by Automated count1.2-3.8[facility] CenterLymphocytes/100 WBC Auto (Bld)on 36-78-3290Iqzdgzmwmig/100 WBC (Bld)Lymphocytes/100 leukocytes in Blood by Automated count20.5-60.0[facility] HospitalH Auto (RBC) [Entitic mass]on 02-80-0996UXL (RBC) [Entitic mass]MCH [Entitic mass] by Automated jyswyCqg55.7-34.0[facility] CenterMCHC Auto (RBC) [Mass/Vol]on 61-95-9055YNFV (RBC) [Mass/Vol]MCHC [Mass/volume] by Automated count29.9-35.2FHolzer Medical Center – JacksonMCV Auto (RBC) [Entitic vol]on 63-67-7204OHE (RBC) [Entitic vol]MCV [Entitic volume] by Automated countLow 81.0-99.0[facility] CenterMonocytes Auto (Bld) [#/Vol]on 32-36-2120Cuxuhcnor (Bld) [#/Vol]Automated blood monocyte count0.3-0.8[facility] CenterMonocytes/100 WBC Auto (Bld)on 74-79-1977Yjftmfxoa/100 WBC (Bld)Automated monocyte %1.7-12.0[facility] Neutrophils Auto (Bld) [#/Vol]on 18-88-5258Jeaopmaqgup (Bld) [#/Vol]Neutrophils [#/volume] in Blood by Automated count1.4-6.5FHolzer Medical Center – Jackson Neutrophils/100 WBC Auto (Bld)on 89-48-4809Avixvelkfax/100 WBC (Bld)Automated neutrophil %43.0-75.0[facility] CenterNo Panel Informationon 95-19-6942Ojsoymqfqgw # (Auto)0.1 10 3/uL0.0-0.7FHolzer Medical Center – JacksonImmature Granulocyte # (Auto)0.02 10 3/uL0.00-0.03[facility] CenterTroponin I High Sensitivity<4.0 pg/mLLow4.0-51.3FHolzer Medical Center – JacksonComment on above:CUT-OFF POINTS HAVE BEEN ESTABLISHED BASED ON THE FOURTHUNIVERSAL DEFINITION OF MYOCARDIAL INFARCTION. THE UPPERREFERENCE LIMIT (URL) OF TROPONIN, DEFINED THE 99THPERCENTILE OF cTnI DISTRIBUTION IN A REFERENCE POPULATION,HAS BEEN CONFIRMED THE DECISION THRESHOLD FOR MIDIAGNOSIS.99TH PERCENTILE = 51.4 PG/MLNOTE: HIGH-SENSITIVITY TROPONIN ASSAY IS NOT INTENDED TO BEUSED IN ISOLATION BUT SHOULD BE INTERPRETED IN CONJUNCTIONWITH OTHER DIAGNOSTIC AND CLINICAL INFORMATION.Platelet mean volume Auto (Bld) [Entitic vol]on 94-14-1467Azhlgves mean volume (Bld) [Entitic vol] Platelet mean volume [Entitic volume] in Blood by Automated count9.5-13.5 [facility] CenterPlatelets Auto (Bld) [#/Vol]on 07-14-2024 Platelets (Bld) [#/Vol]Platelets [#/volume] in Blood by Automated xvyri364-800 [facility] CenterRBC Auto (Bld) [#/Vol]on 15-51-5334GSA (Bld) [#/Vol]Erythrocytes [#/volume] in Blood by Automated count4.20-5.40[facility] Hospitalerum or plasma albumin/globulin mass ratioon 07-14-2024 Albumin/Globulin [Mass ratio]Serum or plasma albumin/globulin mass ratio [facility] Hospitalerum or plasma anion gap determinationon 22-20-9575Jyurx gap [Moles/Vol]Serum or plasma anion gap determinationCincinnati Va Medical CenterUrine Cultureon 60-54-3099Gxlbgwrd identified Cx Nom (U) 25,000 colonies/ml mixed bacterial skin contaminants 2 Days PERFORMED BY: [place] [address] PATHOLOGIST JOB CHECKER STEVE RICK M.D.NormalThe [facility] Charlotte Physician GroupComment on above: Performed By: #### CUU #### [place] [address] USAUrine cultureOrdered By: Jennifer Marker on 07-14-2024 Bacteria identified Cx Nom (U)Urine cultureCincinnati Va Medical Center Urinalysis macro (dipstick) panel (U)on 62-54-7872Pcikhnryc, UANegativeNegative - 4(70) +++ mg/dLNOMS HealthcareBlood, UAPositiveNegative - 50 Daniel/mcLNOMS HealthcareClarity, UAClearNOMS HealthcareColor, UAYellowNOMS HealthcareGlucose, UANegativeNegative - 2000(110) ++++ mg/dLNOMS HealthcareInterpretation and review of laboratory resultsAbnormalNOMS HealthcareKetones, UANegativeNegative - 160(16) ++++ mg/dLNOMS HealthcareLeukocytes, UANegativeNegative - 500+++ Gavin/mcLNOMS HealthcareNitrite, UANegativeNegative - PositiveNOMS HealthcarepH, UA75 - 9NOMS HealthcareProtein, UANegativeNegative - 2000(20) ++++ mg/dLNOMS HealthcareSpec Grav, UA1.0151 - 1.03NOMS HealthcareUrobilinogen, UA0.20.2 - 12 mg/dLNOMS HealthcareNOMS HealthcareBasophils Auto (Bld) [#/Vol]on 07-01-2024 Basophils (Bld) [#/Vol]Automated basophil count0.0-0.1FHolzer Medical Center – JacksonBasophils/100 WBC Auto (Bld)on 46-99-2984Ipfjimriw/100 WBC (Bld)Automated basophil %0.2-2.0[facility] CenterEosinophils/100 WBC Auto (Bld)on 38-85-1552Vurklllddqw/100 WBC (Bld)Automated eosinophil %Low0.9-7.0 [facility] CenterErythrocyte distribution width Auto (RBC) [Ratio]on 51-56-9442Rycuactuwkf distribution width (RBC) [Ratio]Erythrocyte distribution width [Ratio] by Automated count11.0-15.0[facility] CenterHematocrit Auto (Bld) [Volume fraction]on 95-82-9322Vepngatqab (Bld) [Volume fraction]Hematocrit [Volume Fraction] of Blood by Automated countLow 36.0-48.0[facility] CenterHemoglobin [Mass/volume] in Bloodon 37-75-3634Kxknrqspxh (Bld) [Mass/Vol]Hemoglobin [Mass/volume] in BloodLow 12.0-16.0[facility] CenterLaboratory - Hematology and Cell countson 30-11-7728Bgtzoylb granulocytes/100 WBC (Bld)0.4 %0.0-0.5FHolzer Medical Center – JacksonLeukocytes [#/volume] corrected for nucleated erythrocytes in Blood by Automated counon 74-48-5457CUG corrected for nucl RBC Auto (Bld) [#/Vol]Leukocytes [#/volume] corrected for nucleated erythrocytes in Blood by Automated coun4.0-11.0[facility] CenterLymphocytes Auto (Bld) [#/Vol]on 00-03-8537Rqxmkhbhpjd (Bld) [#/Vol]Lymphocytes [#/volume] in Blood by Automated count1.2-3.8[facility] CenterLymphocytes/100 WBC Auto (Bld)on 95-91-7671Zbfdijfxecw/100 WBC (Bld)Lymphocytes/100 leukocytes in Blood by Automated count20.5-60.0[facility] CenterMCH Auto (RBC) [Entitic mass]on 15-37-3328NKP (RBC) [Entitic mass]MCH [Entitic mass] by Automated ueugaCat29.7-34.0[facility] CenterMCHC Auto (RBC) [Mass/Vol]on 93-50-0673UNWX (RBC) [Mass/Vol]MCHC [Mass/volume] by Automated count29.9-35.2FHolzer Medical Center – JacksonMCV Auto (RBC) [Entitic vol]on 02-76-7457RUA (RBC) [Entitic vol]MCV [Entitic volume] by Automated countLow 81.0-99.0[facility] CenterMonocytes Auto (Bld) [#/Vol]on 69-45-4624Arubeqtsp (Bld) [#/Vol]Automated blood monocyte count0.3-0.8[facility] CenterMonocytes/100 WBC Auto (Bld)on 64-51-6245Nrfenxonh/100 WBC (Bld)Automated monocyte %1.7-12.0[facility] Neutrophils Auto (Bld) [#/Vol]on 35-07-3363Hmkpdkwhifs (Bld) [#/Vol]Neutrophils [#/volume] in Blood by Automated count1.4-6.5FHolzer Medical Center – Jackson Neutrophils/100 WBC Auto (Bld)on 77-29-8967Caghsgyfxvg/100 WBC (Bld)Automated neutrophil %43.0-75.0[facility] CenterNo Panel Informationon 82-26-5800Qmcvnctdjhk # (Auto)0.1 10 3/uL0.0-0.7FHolzer Medical Center – JacksonImmature Granulocyte # (Auto)0.04 10 3/uLHigh0.00-0.03[facility] CenterPlatelet mean volume Auto (Bld) [Entitic vol]on 23-34-0010Dlqadshp mean volume (Bld) [Entitic vol]Platelet mean volume [Entitic volume] in Blood by Automated count9.5-13.5FHolzer Medical Center – JacksonPlatelets Auto (Bld) [#/Vol]on 65-04-1372Uywdalmav (Bld) [#/Vol]Platelets [#/volume] in Blood by Automated ugsgz523-870LpygvqexbCincinnati Va Medical CenterRBC Auto (Bld) [#/Vol]on 86-27-1634RUP (Bld) [#/Vol]Erythrocytes [#/volume] in Blood by Automated count Low4.20-5.40[facility] CenterBasophils Auto (Bld) [#/Vol]on 79-20-2187Okztaaadp (Bld) [#/Vol]Automated basophil count0.0-0.1FHolzer Medical Center – JacksonBasophils/100 WBC Auto (Bld)on 00-24-1542Lzbkeccjs/100 WBC (Bld)Automated basophil %0.2-2.0[facility] Eosinophils/100 WBC Auto (Bld)on 42-93-1066Lftvskuldge/100 WBC (Bld)Automated eosinophil %Low0.9-7.0[facility] CenterErythrocyte distribution width Auto (RBC) [Ratio]on 58-32-3246Spewpdxtdjh distribution width (RBC) [Ratio]Erythrocyte distribution width [Ratio] by Automated count11.0-15.0 [facility] CenterHematocrit Auto (Bld) [Volume fraction]on 00-76-3314Wjsyjlepou (Bld) [Volume fraction]Hematocrit [Volume Fraction] of Blood by Automated orougHns20.0-48.0[facility] CenterHemoglobin [Mass/volume] in Bloodon 05-93-1010Qjwftqkbhi (Bld) [Mass/Vol]Hemoglobin [Mass/volume] in JvtifWxi65.0-16.0[facility] CenterLaboratory - Hematology and Cell countson 30-63-5801Eecmrvgh granulocytes/100 WBC (Bld)0.5 % 0.0-0.5FHolzer Medical Center – JacksonLeukocytes [#/volume] corrected for nucleated erythrocytes in Blood by Automated counon 04-69-5361PDY corrected for nucl RBC Auto (Bld) [#/Vol]Leukocytes [#/volume] corrected for nucleated erythrocytes in Blood by Automated coun4.0-11.0[facility] Lymphocytes Auto (Bld) [#/Vol]on 48-77-5658Ykggdyhiesd (Bld) [#/Vol]Lymphocytes [#/volume] in Blood by Automated count1.2-3.8[facility] Lymphocytes/100 WBC Auto (Bld)on 59-95-7209Klyiupacrae/100 WBC (Bld) Lymphocytes/100 leukocytes in Blood by Automated count20.5-60.0[facility] HospitalH Auto (RBC) [Entitic mass]on 37-95-8801YPB (RBC) [Entitic mass]MCH [Entitic mass] by Automated yfxqkDoq07.7-34.0[facility] CenterMCHC Auto (RBC) [Mass/Vol]on 07-59-6429ZMFO (RBC) [Mass/Vol]MCHC [Mass/volume] by Automated count29.9-35.2FHolzer Medical Center – JacksonMCV Auto (RBC) [Entitic vol]on 44-57-7340LEF (RBC) [Entitic vol] MCV [Entitic volume] by Automated ugakqPyz20.0-99.0[facility] CenterMonocytes Auto (Bld) [#/Vol]on 04-52-8817Ovuzhdhgd (Bld) [#/Vol]Automated blood monocyte countHigh0.3-0.8[facility] CenterMonocytes/100 WBC Auto (Bld)on 17-12-0805Wrenloeih/100 WBC (Bld)Automated monocyte %1.7-12.0 [facility] CenterNeutrophils Auto (Bld) [#/Vol]on 06-30-2024 Neutrophils (Bld) [#/Vol]Neutrophils [#/volume] in Blood by Automated countHigh 1.4-6.5FHolzer Medical Center – JacksonNeutrophils/100 WBC Auto (Bld)on 32-61-1321Icilvyynslc/100 WBC (Bld)Automated neutrophil %43.0-75.0[facility] CenterNo Panel Informationon 40-28-8465Cvmmiogpofo # (Auto)0.0 10 3/uL0.0-0.7FHolzer Medical Center – JacksonImmature Granulocyte # (Auto)0.05 10 3/uLHigh0.00-0.03[facility] CenterPlatelet mean volume Auto (Bld) [Entitic vol]on 60-71-0135Mfxayuvr mean volume (Bld) [Entitic vol]Platelet mean volume [Entitic volume] in Blood by Automated count9.5-13.5FHolzer Medical Center – JacksonPlatelets Auto (Bld) [#/Vol]on 73-68-2642Dvnikxwtx (Bld) [#/Vol]Platelets [#/volume] in Blood by Automated wmivn943-345VyoafkfnqCincinnati Va Medical CenterRBC Auto (Bld) [#/Vol]on 19-87-7538KVM (Bld) [#/Vol]Erythrocytes [#/volume] in Blood by Automated countLow4.20-5.40[facility] CenterBasophils Auto (Bld) [#/Vol]on 80-12-0680Vyqanlfrr (Bld) [#/Vol]Automated basophil count0.0-0.1FHolzer Medical Center – JacksonBasophils/100 WBC Auto (Bld)on 38-60-6909Vbrkhaita/100 WBC (Bld)Automated basophil %Low0.2-2.0[facility] CenterBuprenorphine [Presence] in Urineon 06-29-2024 Buprenorphine Ql (U)Buprenorphine [Presence] in UrineNEGAdams County Regional Medical CenterComment on above:DRUG CLASS TEST SYSTEM CUT-OFF CONCENTRATIONS ARE ASFOLLOWS:AMP (Amphetamine): 500 ng/mLBAR (Barbiturates): 200 ng/mLBZO (Benzodiazepines): 150 ng/mLBUP (Buprenorphine): 10 ng/mLCOC (Cocaine): 150 ng/ mLmAMP (Methamphetamine): 500 ng/mLMTD (Methadone): 200 ng/mLOPI (Opiates): 100 ng/mLOXY (Oxycodone): 100 ng/mLPCP (Phencyclidine): 25 ng/mLTHC (Cannabinoids): 50 ng/mLTCA (Trycyclic Antidepressants): 300 ng/mLEosinophils/100 WBC Auto (Bld) on 02-12-2195Qxlffbqjgnn/100 WBC (Bld)Automated eosinophil %Low0.9-7.0[facility] CenterErythrocyte distribution width Auto (RBC) [Ratio]on 49-01-7237Lxtdntxasyg distribution width (RBC) [Ratio]Erythrocyte distribution width [Ratio] by Automated count11.0-15.0[facility] Hematocrit Auto (Bld) [Volume fraction]on 12-76-2434Eaemkraxgg (Bld) [Volume fraction]Hematocrit [Volume Fraction] of Blood by Automated aszktBhg03.0-48.0 [facility] CenterHemoglobin [Mass/volume] in Bloodon 06-29-2024 Hemoglobin (Bld) [Mass/Vol]Hemoglobin [Mass/volume] in FddpsEzp62.0-16.0 [facility] CenterLaboratory - Drug toxicologyon 06-29-2024 Amphetamines Ql (U)NegativeNEGATIVECincinnati Va Medical Center Benzodiazepines Ql (U)NegativeNEGATIVECincinnati Va Medical CenterCocaine Ql (U)NegativeNEGATIVECincinnati Va Medical CenterOpiates Ql (U)Negative NEGATIVECincinnati Va Medical CenterPhencyclidine Ql (U)NegativeNEGATIVE [facility] CenterLaboratory - Hematology and Cell countson 34-81-2812Ulouejdx granulocytes/100 WBC (Bld)0.3 %0.0-0.5FHolzer Medical Center – JacksonLaboratory - Urinalysison 31-98-5570Twtij Ql (Urine sed)NONE SEEN NONE SEENCincinnati Va Medical CenterLeukocytes [#/volume] corrected for nucleated erythrocytes in Blood by Automated counon 02-63-3144ZYZ corrected for nucl RBC Auto (Bld) [#/Vol]Leukocytes [#/volume] corrected for nucleated erythrocytes in Blood by Automated coun4.0-11.0[facility] Lymphocytes Auto (Bld) [#/Vol]on 30-65-3644Ykdywrbljos (Bld) [#/Vol]Lymphocytes [#/volume] in Blood by Automated countLow1.2-3.8[facility] CenterLymphocytes/100 WBC Auto (Bld)on 62-32-5330Yqthhfesxan/100 WBC (Bld) Lymphocytes/100 leukocytes in Blood by Automated vieycZmb32.5-60.0[facility] HospitalH Auto (RBC) [Entitic mass]on 76-48-8239LAN (RBC) [Entitic mass]MCH [Entitic mass] by Automated xckoxXkx24.7-34.0[facility] CenterMCHC Auto (RBC) [Mass/Vol]on 28-06-7769QNNN (RBC) [Mass/Vol]MCHC [Mass/volume] by Automated count29.9-35.2FHolzer Medical Center – JacksonMCV Auto (RBC) [Entitic vol]on 98-40-9179ANN (RBC) [Entitic vol] MCV [Entitic volume] by Automated rzvwgAzi69.0-99.0[facility] CenterMethadone [Presence] in Urine by Screen methodon 36-22-7161Aqlnwhfcy Screen Ql (U)Methadone [Presence] in Urine by Screen methodNEGATIVECincinnati Va Medical CenterMonocytes Auto (Bld) [#/Vol]on 17-93-2128Uefyvzokf (Bld) [#/Vol]Automated blood monocyte count0.3-0.8[facility] Monocytes/100 WBC Auto (Bld)on 08-16-0797Sfbburnfg/100 WBC (Bld)Automated monocyte %1.7-12.0[facility] CenterNeutrophils Auto (Bld) [#/Vol]on 47-05-7719Vegufmkdhis (Bld) [#/Vol]Neutrophils [#/volume] in Blood by Automated countHigh1.4-6.5FHolzer Medical Center – JacksonNeutrophils/100 WBC Auto (Bld)on 86-76-8959Ulsecpxdchd/100 WBC (Bld)Automated neutrophil %High 43.0-75.0[facility] CenterNo Panel Informationon 06-29-2024 Eosinophils # (Auto)0.0 10 3/uL0.0-0.7FHolzer Medical Center – JacksonImmature Granulocyte # (Auto)0.03 10 3/uL0.00-0.03[facility] CenterUrine BacteriaNONE SEEN #/HPFNONE [facility] HealthUrine Barbiturates ScreenNegativeNEGATIVECincinnati Va Medical CenterUrine Culture ReflexedNOCincinnati Va Medical CenterUrine Marijuana (THC) Screen NegativeNEGAdams County Regional Medical CenterUrine Methamphetamines Screen NegativeNEGATIVECincinnati Va Medical CenterUrine Other CastsNONE SEEN #/LPFNONE [facility] HealthUrine Other CrystalsNone Seen #/HPFNone [facility] CenterUrine RBC0-2 #/HPF0-2FHolzer Medical Center – JacksonUrine Squamous Epithelial CellsRARE #/LPFNONE/RARE [facility] CenterUrine Transitional Epithelial CellsRARE #/LPF AbnormalNONE [facility] HealthUrine WBC0-2 #/HPFAbnormalNONE [facility] HealthPlatelet mean volume Auto (Bld) [Entitic vol]on 89-19-0181Staaygjm mean volume (Bld) [Entitic vol]Platelet mean volume [Entitic volume] in Blood by Automated count9.5-13.5FHolzer Medical Center – JacksonPlatelets Auto (Bld) [#/Vol]on 68-40-6785Uxlqjpxkj (Bld) [#/Vol]Platelets [#/volume] in Blood by Automated ewlkj764-064OnckpepkdCincinnati Va Medical Center RBC Auto (Bld) [#/Vol]on 02-53-4100BLP (Bld) [#/Vol]Erythrocytes [#/volume] in Blood by Automated countLow4.20-5.40[facility] CenterTBH UA (CLEAN/CATCH) GLASS SCIENCE ENGINEER/MICRO IF IND.on 52-42-6935DDSVNRLKN URINENegativeNEGATIVENOMS HealthcareBLOOD URINENegativeNEGATIVENOHI HealthcareClarity (U)CLEARCLEARNOMS HealthcareColor (U)LT. YELLOWYELLOWNOMS HealthcareGLUCOSE URINE UANegative NEGATIVE mg/dLNOHI HealthcareInterpretation and review of laboratory results AbnormalNOMS HealthcareKetones Ql (U)40 mg/dLAbnormalNEGATIVENOHI Healthcare Leukocyte esterase Test strip Ql (U)NegativeNEGATIVENOMS HealthcareNITRITE URINE NegativeNEGATIVENOMS HealthcarepH (U)6.0 [pH]5.0 - 9.0NOMS HealthcarePROTEIN URINENegativeNEG/TRACE mg/dLNOHI HealthcareSPECIFIC GRAVITY URINE1.0151.005 - 1.025NOHI HealthcareURINE MICROSCOPIC INDICATEDYESNOHI HealthcareUROBILINOGEN URINE0.2 EU/dL0.2 - 1.0 EU/dLNOHI HealthcareCLINISYNCNOMS HealthcareUrine tricyclic antidepressant measurementon 68-11-1773Gajjmfvvh antidepressants (U) [Mass/Vol]Urine tricyclic antidepressant measurementNEGATIVECincinnati Va Medical CenteroxyCODONE+oxyMORphone [Presence] in Urine by Screen methodon 36-10-3467urkMESEBO+oxyMORphone Screen Ql (U)oxyCODONE+oxyMORphone [Presence] in Urine by Screen methodNEGATIVECincinnati Va Medical CenterALL MISCELLANEOUS TESTon [id number] TESTCOMMENT.NOMS HealthcareComment on above:Test Ordered: [id number] Strep Gp B Culture+Rflx Strep Gp B Culture+Rflx Positive [A ] CB Reference Range: Negative Centers for Disease Control and Prevention (CDC) and [place] [employer] of Obstetricians and Gynecologists (ACOG) guidelines [...] at high risk for anaphylaxis. Performed at: [facility] [facility] [address] [place] [id number] Security System Sales Consultant: Jose Alejandro Matthews PhD, Phone: [phone] GROUP B STREP 189027 CULTURE, GROUP B STREP WITH SUSCEPTIBILITY Formerly [facility] Panel Informationon 80-58-3747Bsuwhcnjhjbgz Test COMMENT.[facility]innati Va Medical CenterComment on above:Test Ordered: [id number] Strep Gp B Culture+RflxStrep Gp B Culture+Rflx [...] resistance to clindamycin is noted.Organism Identification Comment CB Reference Range: .Beta hemolytic Streptococcus, group BClindamycin Resistant [A ] CB Reference Range: .Testing for inducible clindam ycin resistance was performedusing erythromycin and clindamycin in the D-zone test. Perthe Centers for Disease Control and Prevention (CDC),erythromycin is no longer an acceptable alternative forintrapartum group B Streptococcus (GBS) prophylaxis forpenicillin-allergic women at high risk for anaphylaxis.Performed at: [facility]St[facility] CenterLapenw[address] [place], [place] [id number] Director: Jose Alejandro Matthews PhD, Phone: [phone] macro (dipstick) panel (U)on 71-15-2947Fwoqvvcej, UANegativeNegative - 4(70) +++ mg/dLNOMS HealthcareBlood, UANegativeNegative - 50 Daniel/mcLNOMS HealthcareClarity, UAClearNOMS Healthcare Color, UAColorlessNOMS HealthcareGlucose, UAPositiveNegative - 2000(110) ++++ mg/dLNOMS HealthcareComment on above:100Interpretation and review of laboratory resultsAbnormalNOMS HealthcareKetones, UANegativeNegative - 160(16) ++++ mg/dL NOMS HealthcareLeukocytes, UANegativeNegative - 500+++ Gavin/mcLNOMS Healthcare Nitrite, UANegativeNegative - PositiveNOMS HealthcarepH, UA65 - 9NOMS Healthcare Protein, UANegativeNegative - 2000(20) ++++ mg/dLNOMS HealthcareSpec Grav, UA 1.0051 - 1.03NOMS HealthcareUrobilinogen, UA0.20.2 - 12 mg/dLNOMS HealthcareNOMS HealthcareUS OB FOLLOW UP TRANSABDOMINAL APPROACHon 53-01-3510II OB FOLLOW UP TRANSABDOMINAL APPROACHFINDINGS: No prior exams. A single, live intrauterine [...] menstrual period. TRANSCRIBED BY: ELECTRONICALLY SIGNED BY: Belkis Cavazos AvailableComment on above:Order Comment: US OB SCAN FOR GROWTH Estimated Date of Delivery: 07/19/24 Gestational Age as of 05/11/2024: 22b2pDabqapmbxf macro (dipstick) panel (U)on 75-64-3192Ohwkhfmhu, UANegativeNegative - 4(70) +++ mg/dLNOMS HealthcareBlood, UAPositiveNegative - 50 Daniel/mcLNOMS HealthcareComment on above:TRACE-INTACT Clarity, UAClearNOMS HealthcareColor, UAYellowNOMS HealthcareGlucose, UANegative Negative - 2000(110) ++++ mg/dLNOMS HealthcareInterpretation and review of laboratory resultsAbnormalNOMS HealthcareKetones, UANegativeNegative - 160(16) ++++ mg/dLNOMS HealthcareLeukocytes, UANegativeNegative - 500+++ Gavin/mcLNOMS HealthcareNitrite, UANegativeNegative - PositiveNOMS HealthcarepH, UA65 - 9NOMS HealthcareProtein, UANegativeNegative - 2000(20) ++++ mg/dLNOMS HealthcareSpec Grav, UA1.0051 - 1.03NOMS HealthcareUrobilinogen, UA0.20.2 - 12 mg/dLNOMS HealthcareNOMS HealthcareUrinalysis macro (dipstick) panel (U)on 05-11-2024 Bilirubin, UANegativeNegative - 4(70) +++ mg/dLNOMS HealthcareBlood, UANegative Negative - 50 Daniel/mcLNOMS HealthcareClarity, UAClearNOMS HealthcareColor, UA YellowNOMS HealthcareGlucose, UANegativeNegative - 2000(110) ++++ mg/dLNOMS HealthcareInterpretation and review of laboratory resultsAbnormalNOMS Healthcare Ketones, UANegativeNegative - 160(16) ++++ mg/dLNOMS HealthcareLeukocytes, UA TraceNegative - 500+++ Gavin/mcLNOMS HealthcareNitrite, UANegativeNegative - PositiveNOMS HealthcarepH, UA6.55 - 9NOMS HealthcareProtein, UANegativeNegative - 2000(20) ++++ mg/dLNOMS HealthcareSpec Grav, UA1.021 - 1.03NOHI Healthcare Urobilinogen, UA0.20.2 - 12 mg/dLNOCarondelet HealthNOHI HealthcareUrinalysis macro (dipstick) panel (U)on 88-69-4779Kvdripqpf, UANegativeNegative - 4(70) +++ mg/dL NOMS HealthcareBlood, UANegativeNegative - 50 Daniel/mcLNOHI HealthcareClarity, UA ClearNOMS HealthcareColor, UAYellowNOHI HealthcareGlucose, UANegativeNegative - 2000(110) ++++ mg/dLNOHI HealthcareInterpretation and review of laboratory resultsAbnormalFitzgibbon HospitalKetones, UANegativeNegative - 160(16) ++++ mg/dL NOMS HealthcareLeukocytes, UATraceNegative - 500+++ Gavin/mcLNOHI Healthcare Nitrite, UANegativeNegative - PositiveNOMS HealthcarepH, UA75 - 9NOHI Healthcare Protein, UANegativeNegative - 1999(20) ++++ mg/dLNOHI HealthcareSpec Grav, UA 1.011 - 1.03NOHI HealthcareUrobilinogen, UA0.20.2 - 12 mg/dLNOCarondelet HealthNOHI HealthcareALL CBC WITH AUTO DIFFon 87-89-2042KQFNUYUGF ABSOLUTE WWCI4QOVR HealthcareBasophils/100 WBC (Bld)0.5 %0.2 - 2.0 %NOMS HealthcareEosinophils/100 WBC (Bld)0.5 %Low0.9 - 7.0 %NOMKansas City Va Medical CenterErythrocyte distribution width (RBC) [Ratio]12.9 %11.0 - 15.0 %NOMS HealthcareHematocrit (Bld) [Volume fraction]33.7 %Low36.0 - 48.0 %NOMKansas City Va Medical CenterHemoglobin (Bld) [Mass/Vol]10.8 g/dLLow12.0 - 16.0 g/dLNOCarondelet HealthIMMATURE GRANULOCYTES ABS AUTO0.04HighNOCarondelet Health Immature granulocytes/100 WBC (Bld)0.6 %High0.0 - 0.5 %[facility] Interpretation and review of laboratory resultsAbnoPaoli Hospital LYMPHOCYTES ABSOLUTE AUTO1.3NOMS HealthcareLymphocytes/100 WBC (Bld)20.2 %Low 20.5 - 60.0 %[facility] Health SystemH (RBC) [Entitic mass]26.9 pg26.7 - 34.0 pgDeaconess Incarnate Word Health SystemHC (RBC) [Mass/Vol]32 g/dL29.9 - 35.2 g/dLDeaconess Incarnate Word Health SystemV (RBC) [Entitic vol]83.8 fL81.0 - 99.0 fLLAYTON HOSPITAL HealthcareMONOCYTES ABSOLUTE AUTO0.5NOHI HealthcareMonocytes/100 WBC (Bld)8.6 %1.7 - 12.0 %[facility] HealthcareNEUTROPHILS ABSOLUTE AUTO4.4NOHI HealthcareNeutrophils/100 WBC (Bld)69.6 %43.0 - 75.0 %[facility] HealthcarePlatelet mean volume (Bld) [Entitic vol]10.3 fL9.5 - 13.5 fLFitzgibbon HospitalTBH EO #0NOMS HealthcareTBH SHG311ZJOACedar County Memorial Hospital RBC4.02LowMissouri Baptist Hospital-Sullivan WBC6.3NOHI HealthcareCLINISYNCNPUSHMATAHA HOSPITAL – ANTLERS HealthcareUrinalysis macro (dipstick) panel (U)on 66-34-5408Kehletycc, UANegativeNegative - 4(70) +++ mg/dL NOMS HealthcareBlood, UANegativeNegative - 50 Daniel/mcLNOMS HealthcareClarity, UA ClearNOMS HealthcareColor, UAYellowNOMS HealthcareGlucose, UANegativeNegative - 2000(110) ++++ mg/dLNOHI HealthcareInterpretation and review of laboratory resultsNormalNOHI HealthcareKetones, UANegativeNegative - 160(16) ++++ mg/dLNOHI HealthcareLeukocytes, UANegativeNegative - 500+++ Gavin/mcLNOMS HealthcareNitrite, UANegativeNegative - PositiveNOMS HealthcarepH, UA5.55 - 9N[facility] Healthcare Protein, UANegativeNegative - 2000(20) ++++ mg/dLNOMS HealthcareSpec Grav, UA 1.0251 - 1.03NOMS HealthcareUrobilinogen, UA0.20.2 - 12 mg/dLNOHI HealthcareNOMS HealthcareAFP, SERUM, OPEN SPINA BIFIDAon 80-45-4195RXF MOM0.72.[facility] AFP VALUE27.2 ng/mL.[facility] HealthcareCOMMENT:Comment.[facility] HospitalComment on above:Tiffanie Petersen, Ph.D., [facility] Director References: Available Upon Request. Multiples Of Median Cutoffs For AFP Elevations Patrick 2.5 Black 2.8 IDD 2.0 Twins 4.5 Abbreviation Definitions IDD - Insulin Dep Diabetes OSBR - Open Spina Bifida Risk For further inquiries contact [employer] at [phone]. This test was developed and its performance characteristics determined by [employer]. It has not been cleared or approved by the Food and Drug Administration. Performed at: [facility] [employer] [place], [place] [id number] Security System Sales Consultant: Tor Real [facility], Phone: [phone] GEST. AGE ON COLLECTION DATE18.3. weeksNOHI HealthcareGESTAT. AGE BASED ONLMP. [facility] HealthcareComment on above:Recalculations are not recommended when gestational dating by LMP and ultrasound are within 10 days. INSULIN DEP DIABETESNo.[facility] HealthcareINTERPRETATIONComment.[facility] Comment on above:Interpretation: Screen Negative This result is screen negative for [...] Customer Services to discuss available options. The [place] [employer] Gynec[employer] recommends amniocentesis be offered to women age 35 and older. MATERNAL AGE AT EDD27.7. yrNOHI HealthcareMULTIPLE GESTATIONNo.[facility] OSBR RISK 1 [id number].[facility] HealthcareRACECaucasian.[facility] HospitalRESULTSReport. [facility] HospitalTEST RESULTS:Negative.[facility]ibbon HospitalQbnitwjuuiAFQVUZ727. lbsNOHI HealthcarePREGNANCY N N LMP [id number] [phone] N 1 Y 198 N N N N N White/ CLINISYNCNOHI HealthcareRECURRENT VAGINITIS (HTRX)on 82-75-1364TVTZDMOPN VAGINAE 0NOHI HealthcareATOPOBIUM VAGINAENot detectedNOMS HealthcareBVAB 2,3 (BACTERIAL VAGINOSIS ASSOCIATED BACTERIA 2, 3); MOBILUNCUS EOJ7HRDM HealthcareBVAB 2,3 (BACTERIAL VAGINOSIS ASSOCIATED BACTERIA 2, 3); MOBILUNCUS SPPNot detectedNOMS HealthcareCANDIDA ALBICANS, PARAPSILOSIS, PHUPDMIZOQ7QNBI HealthcareCANDIDA ALBICANS, PARAPSILOSIS, TROPICALISNot detectedNOMS HealthcareCANDIDA GLABRATA0 NOMS HealthcareCANDIDA GLABRATANot detectedNOMS HealthcareCANDIDA AYGNSI5SRPT HealthcareCANDIDA KRUSEINot detectedNOMS HealthcareCHLAMYDIA AVZVILULMGM6TKOH HealthcareCHLAMYDIA TRACHOMATISNot detectedNOMS HealthcareGARDNERELLA VAGINALIS0 NOMS HealthcareGARDNERELLA VAGINALISNot detectedNOMS HealthcareMEGASPHAERA (TYPES 1, 2)0NOMS HealthcareMEGASPHAERA (TYPES 1, 2)Not detectedNOMS Healthcare MYCOPLASMA JXJQNRRXYV6OVDA HealthcareMYCOPLASMA GENITALIUMNot detectedNOMS HealthcareNEISSERIA DTANAZYOCRD1NMAB HealthcareNEISSERIA GONORRHOEAENot detected NOMS HealthcareTRICHOMONAS [id number] HealthcareTRICHOMONAS VAGINALISNot detectedNOMS HealthcareNOMS HealthcareUrinalysis macro (dipstick) panel (U)on 20-86-7962Rgzohbjzi, UANegativeNegative - 4(70) +++ mg/dLNOHI HealthcareBlood, UANegativeNegative - 50 Daniel/mcLNOHI HealthcareClarity, UAClearNOMS Healthcare Color, UAYellowNOMS HealthcareGlucose, UANegativeNegative - 2000(110) ++++ mg/dL [facility] HealthcareInterpretation and review of laboratory resultsNormalNOHI HealthcareKetones, UANegativeNegative - 160(16) ++++ mg/dLNOHI Healthcare Leukocytes, UANegativeNegative - 500+++ Gavin/mcLNOMS HealthcareNitrite, UA NegativeNegative - PositiveNOHI HealthcarepH, UA5.55 - 9NOMS HealthcareProtein, UANegativeNegative - 2000(20) ++++ mg/dLNOHI HealthcareSpec Grav, UA1.021 - 1.03 NOMS HealthcareUrobilinogen, UA0.20.2 - 12 mg/dLNOHI HealthcareNOHI Healthcare ALL CBC WITH AUTO DIFFon [id number] ABSOLUTE AUTO0.0NOCarondelet Health Basophils/100 WBC (Bld)0.1 %Low0.2 - 2.0 %NOMKansas City Va Medical CenterEosinophils/100 WBC (Bld)1.0 %0.9 - 7.0 %[facility] HospitalErythrocyte distribution width (RBC) [Ratio] 13.2 %11.0 - 15.0 %[facility] HospitalHematocrit (Bld) [Volume fraction]36.4 %36.0 - 48.0 %[facility] HospitalHemoglobin (Bld) [Mass/Vol]11.9 g/dLLow12.0 - 16.0 g/dLFitzgibbon HospitalIMMATURE GRANULOCYTES ABS AUTO0.01NOCarondelet HealthImmature granulocytes/100 WBC (Bld)0.1 %0.0 - 0.5 %[facility] HospitalInterpretation and review of laboratory resultsAbnormalNOCarondelet HealthLYMPHOCYTES ABSOLUTE AUTO1.5 [facility] HospitalLymphocytes/100 WBC (Bld)22.8 %20.5 - 60.0 %[facility] SystemH (RBC) [Entitic mass]28.1 pg26.7 - 34.0 pgDeaconess Incarnate Word Health SystemHC (RBC) [Mass/Vol] 32.7 g/dL29.9 - 35.2 g/dLDeaconess Incarnate Word Health SystemV (RBC) [Entitic vol]86.1 fL81.0 - 99.0 fLFitzgibbon HospitalMONOCYTES ABSOLUTE AUTO0.4NOCarondelet HealthMonocytes/100 WBC (Bld)6.0 %1.7 - 12.0 %[facility] HospitalNEUTROPHILS ABSOLUTE AUTO4.7NOCarondelet Health Neutrophils/100 WBC (Bld)70.0 %43.0 - 75.0 %F[facility] HospitalPlatelet mean volume (Bld) [Entitic vol]10.7 fL9.5 - 13.5 fLFitzgibbon HospitalTB EO #0.1NOMS [facility] TB [id number] County Memorial Hospital RBC4.23NOMS [facility] WBC6.7NOCarondelet Health CLINISYNCFitzgibbon HospitalUrinalysis macro (dipstick) panel (U)on 01-07-2024 Bilirubin, UANegativeNegative - 4(70) +++ mg/dLNOMS HealthcareBlood, UANegative Negative - 50 Daniel/mcLNOHI HealthcareClarity, UAClearNOHI HealthcareColor, UA YellowNOHI HealthcareGlucose, UANegativeNegative - 2000(110) ++++ mg/dLLAYTON HOSPITAL HealthcareInterpretation and review of laboratory resultsNormBarix Clinics of Pennsylvania Ketones, UANegativeNegative - 160(16) ++++ mg/dLFitzgibbon HospitalLeukocytes, UA NegativeNegative - 500+++ Gavin/mcLLAYTON HOSPITAL HealthcareNitrite, UANegativeNegative - PositiveNOHI HealthcarepH, UA6.55 - 9NOHI HealthcareProtein, UANegativeNegative - 2000(20) ++++ mg/dLLAYTON HOSPITAL HealthcareSpec Grav, UA1.0201 - 1.03NOCarondelet Health Urobilinogen, UA1.00.2 - 12 mg/dLParkland Health Center HealthcareALL CBC WITH AUTO DIFFon 51-16-5855LTBSZMRON ABSOLUTE AUTO0.0NOCarondelet HealthBasophils/100 WBC (Bld)0.3 %0.2 - 2.0 %NOMS [facility] HealthEosinophils/100 WBC (Bld)0.9 %0.9 - 7.0 % [facility] HospitalErythrocyte distribution width (RBC) [Ratio]13.0 %11.0 - 15.0 % NOMKansas City Va Medical CenterHematocrit (Bld) [Volume fraction]39.1 %36.0 - 48.0 %[facility] HospitalHemoglobin (Bld) [Mass/Vol]12.8 g/dL12.0 - 16.0 g/dLFitzgibbon Hospital IMMATURE GRANULOCYTES ABS AUTO0.02NOCarondelet HealthImmature granulocytes/100 WBC (Bld)0.3 %0.0 - 0.5 %[facility] HospitalInterpretation and review of laboratory resultsAbnoPaoli HospitalLYMPHOCYTES ABSOLUTE AUTO1.6NOMS [facility] Lymphocytes/100 WBC (Bld)20.4 %Low20.5 - 60.0 %[facility] SystemH (RBC) [Entitic mass]27.8 pg26.7 - 34.0 pgNOCarondelet HealthMCHC (RBC) [Mass/Vol]32.7 g/dL29.9 - 35.2 g/dLFitzgibbon HospitalMCV (RBC) [Entitic vol]84.8 fL81.0 - 99.0 fLNOHI HealthcareMONOCYTES ABSOLUTE AUTO0.6NOHI HealthcareMonocytes/100 WBC (Bld)7.1 % 1.7 - 12.0 %NOMS HealthcareNEUTROPHILS ABSOLUTE AUTO5.5NOMS Healthcare Neutrophils/100 WBC (Bld)71.0 %43.0 - 75.0 %NOMS HealthcarePlatelet mean volume (Bld) [Entitic vol]10.2 fL9.5 - 13.5 fLNOMS HealthcareTBH EO #0.1N[facility]S Healthcare TBH PHU126EKSI HealthcareTBH RBC4.61NOMS HealthcareTBH WBC7.7NOMS Healthcare CLINISYNCNOHI HealthcareUrinalysis macro (dipstick) panel (U)on 12-17-2023 Bilirubin, UANegativeNegative - 4(70) +++ mg/dLNOMS HealthcareBlood, UANegative Negative - 50 Daniel/mcLNOMS HealthcareClarity, UAClearNOHI HealthcareColor, UA YellowNOHI HealthcareGlucose, UANegativeNegative - 1999(110) ++++ mg/dLNOHI HealthcareInterpretation and review of laboratory resultsAbnormBarix Clinics of [place] Ketones, UAPositiveNegative - 160(16) ++++ mg/dLNOMS HealthcareComment on above: 15Leukocytes, UANegativeNegative - 500+++ Gavin/mcLNOHI HealthcareNitrite, UA NegativeNegative - PositiveNOMS HealthcarepH, UA6.55 - 9NOMS HealthcareProtein, UANegativeNegative - 2000(20) ++++ mg/dLNOHI HealthcareSpec Grav, UA1.0301 - 1.03NOHI HealthcareUrobilinogen, UA1.00.2 - 12 mg/dLNOMS HealthcareNOHI HealthcareHCG ( test) Ql (U)on 64-12-0520Idsnjshglskcft and review of laboratory resultsAbrmBarix Clinics of PennsylvaniaPreg Test, UrPositiveNOCarondelet Health NOMS HealthcareUrinalysis macro (dipstick) panel (U)on 46-49-4788Ooqtdwinm, UA PositiveNegative - 4(70) +++ mg/dLNOMS HealthcareComment on above:smallBlood, UA NegativeNegative - 50 Daniel/mcLNOMS HealthcareClarity, UAClearNOMS Healthcare Color, UAYellowNOHI HealthcareGlucose, UANegativeNegative - 2000(110) ++++ mg/dL NOMS HealthcareInterpretation and review of laboratory resultsAbnormalNOHI HealthcareKetones, UAPositiveNegative - 160(16) ++++ mg/dLNOHI HealthcareComment on above:traceLeukocytes, UANegativeNegative - 500+++ Gavin/mcLLAYTON HOSPITAL Healthcare Nitrite, UANegativeNegative - PositiveNOMS HealthcarepH, UA6.05 - 9NOHI HealthcareProtein, UAPositiveNegative - 2000(20) ++++ mg/dLNOHI Healthcare Comment on above:30Spec Grav, UA1.0301 - 1.03NOHI HealthcareUrobilinogen, UA0.2 0.2 - 12 mg/dLFitzgibbon HospitalNOHI HealthcareCytology Cervical or vaginal smear or scraping studyon 55-18-1581DMUGFitzgibbon HospitalCBC AUTO DIFFon 40-93-1398ZLHR #0.0 103/ulNormal0.0-0.1Genesis HospitalComment on above:Performed By: #### CBC #### [facility] [address] [address] [address] Jerry SamuelBasophils/100 WBC (Bld)0.3 %Normal0.2-2.0[facility] Comment on above:Performed By: #### CBC #### [facility] [address] [address] [address] Jerry Landry #0.1 103/ulNormal0.0-0.7The [facility] HospitalComment on above: Performed By: #### CBC #### [facility] [address] [address] [address] Jerry Gonzalesosinophils/100 WBC (Bld)1.4 %Normal0.9-7.0[facility] Comment on above:Performed By: #### CBC #### [facility] [address] [address] [address] Jerry Gonzalesrythrocyte distribution width (RBC) [Ratio]13.2 %Wfdzla79.0-15.0 The [facility]ountain HospitalComment on above:Performed By: #### CBC #### [facility] [address] [place] [address] Dr. Jerry SamuelHematocrit (Bld) [Volume fraction]33.9 %Critically low36.0-48.0 The [facility] HospitalComment on above:Performed By: #### CBC #### [facility] [address] [place] [address] Dr. Jerry SamuelHemoglobin (Bld) [Mass/Vol]11.3 g/dLCritically low12.0-16.0The [facility] HospitalComment on above:Performed By: #### CBC #### [facility] [address] [place] [address] Dr. Jerry Luu #0.04 10e3/ulCritically high0.00-0.03The [facility] Comment on above:Performed By: #### CBC #### [facility] [address] [place] [address] Dr. Jerry Luu %0.6 %Critically high0.0-0.5The [facility] HospitalComment on above:Performed By: #### CBC #### [facility] [address] [place] [address] Dr. Jerry Loyd #1.9 103/ulNormal1.2-3.8The [facility] HospitalComment on above:Performed By: #### CBC #### [facility] [address] [place] [address] Dr. Jerry Kwanhocytes/100 WBC (Bld)30.2 %Dlytlu11.5-60.0The [facility] HospitalComment on above:Performed By: #### CBC #### [facility] [address] [place] [address] Dr. Jerry AldanaUAL DIFF REQNONormalThe [facility] HospitalComment on above: Performed By: #### CBC #### [facility] [address] [place] [address] Dr. Jerry Gentile (RBC) [Entitic mass]29.9 dcOzrsrd61.7-34.0The [facility] HospitalComment on above:Performed By: #### CBC #### [facility] [address] [place] [address] Dr. Jerry Aggarwal (RBC) [Mass/Vol]33.3 g/mNTukbmd72.9-35.2The [facility] HospitalComment on above:Performed By: #### CBC #### [facility] [address] [place] [address] Dr. Jerry Aggarwal (RBC) [Entitic vol]89.7 kSEtnfat89.0-99.0The [facility] HospitalComment on above:Performed By: #### CBC #### [facility] [address] [place] [address] Dr. Jerry Antony #0.5 103/ulNormal0.3-0.8The [facility] HospitalComment on above:Performed By: #### CBC #### [facility] [address] [place] [address] Dr. Jerry Maysocytes/100 WBC (Bld)7.2 %Normal1.7-12.0The [facility] Comment on above:Performed By: #### CBC #### [facility] [address] [place] [address] Dr. Jerry Story #3.8 103/ulNormal1.4-6.5The [facility] HospitalComment on above:Performed By: #### CBC #### [facility] [address] [place] [address] Dr. Jerry Richardophils/100 WBC (Bld)60.3 %Ziihvt42.0-75.0The [facility] HospitalComment on above:Performed By: #### CBC #### [facility] [address] [place] [address] Dr. Jerry Granados mean volume (Bld) [Entitic vol]9.8 fLNormal9.5-13.5The [facility] HospitalComment on above:Performed By: #### CBC #### [facility] [address] [place] [address] Dr. Jerry SamulePLT188 103/kmYvfdyy983-391Xzf [facility] HospitalComment on above: Performed By: #### CBC #### [facility] [address] [place] [address] Dr. Jerry SamuelRBC3.78 106/ulCritically low4.20-5.40The [facility] HospitalComment on above:Performed By: #### CBC #### [facility] [address] [place] [address] Dr. Jerry SamuelWBC6.2 103/ulNormal4.0-11.0The [facility] HospitalComment on above: Performed By: #### CBC #### [facility] [address] [place] [address] Dr. Jerry SamuelGLUCOSE - 1HRon 00-23-2933Gbmytco [Mass/Vol]100 mg/hUCgxkkg38-472 The [facility] HospitalComment on above:Performed By: #### NBOX #### [facility] [address] [place] [address] Dr. Jerry SamuelUS PREG ANATOMY SINGLEon 30-10-4698YP PREG ANATOMY SINGLE EXAMINATION: US PREG ANATOMY [...] Electronically authenticated by: ABRIL SCANLON Date: 2022-07-02 13:45[facility] CenterAFP MATERNAL FOR SPINA BIFIDAon 21-65-7553SGT MoM0.87[facility] Medical CenterComment on above:Performed By: #### RPRQ #### [facility] [address] [place] [address] Dr. Jerry Telles Value39.6 ng/mLNOhioHealth Marion General HospitalComment on above: Performed By: #### RPRQ #### [facility] [address] [place] [address] Dr. Jerry Telles, Serum for Spina BifidaReportCoshocton Regional Medical Center Comment on above:Performed By: #### RPRQ #### [facility] [address] [place] [address] Dr. Jerry JackPremier Health Atrium Medical CenterComment on above:Result Comment: Tiffanie Petersen, Ph.D., [facility] Director . References: Available Upon Request. . Multiples Of Median Cutoffs For AFP Elevations Patrick 2.5 Black 2.8 IDD 2.0 Twins 4.5 Abbreviation Definitions IDD - Insulin Dep Diabetes OSBR - Open Spina Bifida Risk . For further inquiries contact [employer] at [phone]. . This test was developed and its performance characteristics determined by [employer]. It has not been cleared or approved by the Food and Drug Administration.Performed By: #### RPRQ #### [facility] [address] [place] [address] Dr. Jerry Ball Age Collection Date18.9 weeksCos[facility] Comment on above:Performed By: #### RPRQ #### [facility] [address] [place] [address] Dr. Jerry Ballat, Age Based onUltrasoundCoshocton Regional [facility] on above:Result Comment: 09.0 on 04/04/2022 Recalculations are not recommended when gestational dating by LMP and ultrasound are within 10 days.Performed By: #### RPRQ #### [facility] [address] [place] [address] Dr. Jerry SamuelInsulin Dep DiabetesUniversity Hospitals Geauga Medical CenterComment on above:Performed By: #### RPRQ #### [facility] [address] [place] [address] Dr. Jerry SamuelInterpretationPremier Health Atrium Medical CenterComkarmanos cancer center on above: Result Comment: Interpretation: Screen Negative . This result is screen [...] Customer Services to discuss available options. The [employer] recommends amniocentesis be offered to women age 35 and older.Performed By: #### RPRQ #### [facility] [address] [place] [address] Dr. Jerry SamuelMaternajose f Age at EDD27.0 yrCoshocton Regional [facility] CenterComkar[facility]os cancer center on above:Performed By: #### RPRQ #### [facility] [address] [place] [address] Dr. Jerry SamuelMultiple [facility]Com[facility] on above: Performed By: #### RPRQ #### [facility] [address] [place] [address] Dr. Jerry SamuelOSBR Risk 1 [id number] Regional Medical CenterComkarmanos cancer center on above: Performed By: #### RPRQ #### [facility] [address] [place] [address] Dr. Jerry SamuelPDF.NormalThe [facility] HospitalComment on above:Performed By: #### RPRQ #### [facility] [address] [address] [address] Jerry VailCaucasianNormalGenesis HospitalComment on above: Performed By: #### RPRQ #### [facility] [address] [place] [address] Dr. Jerry SamuelTest Results:NegativeNormalThe [facility] HospitalComment on above: Performed By: #### RPRQ #### [facility] [address] [place] [address] Dr. Jerry SamuelCHLAMYDIA/GONOCOCCUS ELINOR (SWAB/URINE/PAPon 68-82-6137Dhpbrwoxu trachomatis, NAANegativeNormalNegativeGenesis HospitalComkarmanos cancer center on above: Performed By: #### RPRQ #### [facility] [address] [place] [address] Dr. Jerry SamuelNeisseria gonorrhoeae, NAANegativeNormalNegativeGenesis HospitalComment on above:Performed By: #### RPRQ #### [facility] [address] [place] [address] Dr. Jerry SamuelVAGINITIS/VAGINOSIS DNA PROBEon 64-26-6893Hahumsy speciesNegative NormalNegativeGenesis HospitalComkarmanos cancer center on above:Performed By: #### VAGINT #### [facility] [address] [place] [address] Dr. Jerry Hamptonerella vaginalisNegativeNormalNegativeGenesis Hospital Comment on above:Performed By: #### VAGINT #### [facility] [address] [place] [address] Dr. Jerry SamuelTrichomonas vaginalisNegativermalNegativeGenesis Hospital Comment on above:Performed By: #### VAGINT #### [facility] [address] [place] [address] Dr. Jerry SamuelCBC AUTO DIFFon 50-45-8567STBC #0.0 103/ulNormal0.0-0.1The [facility] HospitalComment on above:Performed By: #### CBC #### [facility] [address] [place] [address] Dr. Jerry SamuelBasophils/100 WBC (Bld)0.1 %Critically low0.2-2.0Genesis HospitalComment on above:Performed By: #### CBC #### [facility] [address] [place] [address] Dr. Jerry Landry #0.0 103/ulNormal0.0-0.7The [facility] HospitalComment on above: Performed By: #### CBC #### [facility] [address] [place] [address] Dr. Jerry Gonzalesosinophils/100 WBC (Bld)0.4 %Critically low0.9-7.0The [facility] HospitalComment on above:Performed By: #### CBC #### [facility] [address] [place] [address] Dr. Jerry Gonzalesrythrocyte distribution width (RBC) [Ratio]12.6 %Qpjxwb26.0-15.0 The [facility] HospitalComment on above:Performed By: #### CBC #### [facility] [address] [place] [address] Dr. Jerry Maloneatocrit (Bld) [Volume fraction]34.0 %Critically low36.0-48.0 Genesis HospitalComment on above:Performed By: #### CBC #### [facility] [address] [place] [address] Dr. Jerry SamuelHemoglobin (Bld) [Mass/Vol]11.6 g/dLCritically low12.0-16.0Genesis HospitalComment on above:Performed By: #### CBC #### [facility] [address] [place] [address] Dr. Jerry Luu #0.03 10e3/ulNormal0.00-0.03Genesis HospitalComment on above:Performed By: #### CBC #### [facility] [address] [place] [address] Dr. Jerry Luu %0.4 %Normal0.0-0.5The [facility] HospitalComment on above: Performed By: #### CBC #### [facility] [address] [place] [address] Dr. Jerry Loyd #1.1 103/ulCritically low1.2-3.8The [facility] Comment on above:Performed By: #### CBC #### [facility] [address] [place] [address] Dr. Jerry Kwanhocytes/100 WBC (Bld)16.5 %Critically low20.5-60.0The [facility] HospitalComment on above:Performed By: #### CBC #### [facility] [address] [place] [address] Dr. Jerry Hodgson DIFF REQNONormalThe [facility] HospitalComment on above: Performed By: #### CBC #### [facility] [address] [place] [address] Dr. Jerry Aggarwal (RBC) [Entitic mass]29.1 yeNzucgl87.7-34.0The [facility] HospitalComment on above:Performed By: #### CBC #### [facility] [address] [place] [address] Dr. Jerry Aggarwal (RBC) [Mass/Vol]34.1 g/zAGwzgpg81.9-35.2The [facility] HospitalComment on above:Performed By: #### CBC #### [facility] [address] [place] [address] Dr. Jerry Aggarwal (RBC) [Entitic vol]85.2 lRHhhifn85.0-99.0The [facility] HospitalComment on above:Performed By: #### CBC #### [facility] [address] [place] [address] Dr. Jerry Antony #0.4 103/ulNormal0.3-0.8The [facility] HospitalComment on above:Performed By: #### CBC #### [facility] [address] [place] [address] Dr. Jerry Maysocytes/100 WBC (Bld)6.0 %Normal1.7-12.0The [facility] Comment on above:Performed By: #### CBC #### [facility] [address] [place] [address] Dr. Jerry MarinelliUT #5.1 103/ulNormal1.4-6.5The [facility] HospitalComment on above:Performed By: #### CBC #### [facility] [address] [place] [address] Dr. Jerry Marinelliutrophils/100 WBC (Bld)76.6 %Critically high43.0-75.0The [facility] HospitalComment on above:Performed By: #### CBC #### [facility] [address] [place] [address] Dr. Jerry Mendozalet mean volume (Bld) [Entitic vol]10.5 fLNormal9.5-13.5The [facility] HospitalComment on above:Performed By: #### CBC #### [facility] [address] [place] [address] Dr. Jerry SamuelPLT207 103/mmGisnjc730-175Bsd [facility] HospitalComment on above: Performed By: #### CBC #### [facility] [address] [place] [address] Dr. Jerry SamuelRBC3.99 106/ulCritically low4.20-5.40The [facility] HospitalComment on above:Performed By: #### CBC #### [facility] [address] [place] [address] Dr. Jerry SamuelWBC6.7 103/ulNormal4.0-11.0The [facility] HospitalComment on above: Performed By: #### CBC #### [facility] [address] [place] [address] Dr. Jerry Montgomery URINE PROFILEon 07-32-1912Vfbyeauvd Ql (U)NegativeNormal NEGATIVEThe [facility] HospitalComment on above:Performed By: #### ERUR #### [facility] [address] [place] [address] Dr. Jerry Maxwell (U)CLEARNormalCLEARGenesis HospitalComment on above: Performed By: #### ERUR #### [facility] [address] [place] [address] Dr. Jerry Vizcaino (U)LT. YELLOWNormalYELLOWGenesis HospitalComment on above:Performed By: #### ERUR #### [facility] [address] [place] [address] Dr. Jerry Vogt micrscopic examination will be performed if indicated. NormalGenesis HospitalComment on above:Performed By: #### ERUR #### [facility] [address] [place] [address] Dr. Jerry SamuelGlucose Ql (U)NegativeNormalNEGATIVEGenesis HospitalComment on above:Performed By: #### ERUR #### [facility] [address] [place] [address] Dr. Jerry SamuelHemoglobin Ql (U)NegativeNormalNEGATIVELima Memorial Hospital on above:Performed By: #### ERUR #### [facility] [address] [place] [address] Dr. Jerry SamuelKetones Ql (U)NegativeNormalNEGATIVEGenesis HospitalComment on above:Performed By: #### ERUR #### [facility] [address] [place] [address] Dr. Jerry SamuelLEUKOCYTESNegativeNormalNEGATIVEGenesis HospitalComment on above:Performed By: #### ERUR #### [facility] [address] [place] [address] Dr. Jerry SamuelNitrite Ql (U)NegativeNormalNEGATIVEGenesis HospitalComment on above:Performed By: #### ERUR #### [facility] [address] [place] [address] Dr. Jerry SamuelpH (U)6.5 [pH]Normal5-9Genesis HospitalComment on above: Performed By: #### ERUR #### [facility] [address] [place] [address] Dr. Jerry Solorzano GRAVITY<=1.050Cfrxwglm0.005-<=1.025The [facility] Comment on above:Performed By: #### ERUR #### [facility] [address] [place] [address] Dr. Jerry Barger PROTEINNegativeNormalNEGATIVE/ TRACEThe [facility] Comment on above:Performed By: #### ERUR #### [facility] [address] [place] [address] Dr. Jerry Kerr MICRO INDNOT INDICATEDNormalThe [facility] HospitalComment on above:Performed By: #### ERUR #### [facility] [address] [place] [address] Dr. Jerry Cruzbilinogen Qn (U)0.2 {Charlette'U}/dLNormal0.2 - 1.0The [facility] HospitalComment on above:Performed By: #### ERUR #### [facility] [address] [place] [address] Dr. Jerry McdonoughF 14(COMP METB)on 12-37-7320Tnbtyrx [Mass/Vol]3.4 g/dLNormal 3.4-5.0The [facility] HospitalComment on above:Performed By: #### RPRQ #### [facility] [address] [place] [address] Dr. Jerry SamuelAlbumin/Globulin [Mass ratio]1.0 {ratio}NormalThe [facility] HospitalComment on above:Performed By: #### RPRQ #### [facility] [address] [place] [address] Dr. Jerry Orta [Catalytic activity/Vol]33 U/LCritically bmk57-173Ine [facility] HospitalComment on above:Performed By: #### RPRQ #### [facility] [address] [place] [address] Dr. Jerry AbdiT [Catalytic activity/Vol]16 U/CAyrfpk28-16Ioa [facility] HospitalComment on above:Performed By: #### RPRQ #### [facility] [address] [address] [address] Jerry SamuelAnion gap [Moles/Vol]8.5 mmol/LNormalThe [facility] HospitalComment on above:Performed By: #### RPRQ #### [facility] [address] [address] [address] Jerry SamuelAST [Catalytic activity/Vol]12 U/LCritically bkl14-73Qgb [facility] HospitalComment on above:Performed By: #### RPRQ #### [facility] [address] [place] [address] Dr. Jerry SamuelBilirubin [Mass/Vol]0.3 mg/dLNormal0.2-1.0The [facility] Comment on above:Performed By: #### RPRQ #### [facility] [address] [place] [address] Dr. Jerry SamuelCalcium [Mass/Vol]9.2 mg/dLNormal8.5-10.1The [facility] Comment on above:Performed By: #### RPRQ #### [facility] [address] [place] [address] Dr. Jerry SamuelChloride [Moles/Vol]105 mmol/EWckrsb33-160Yts [facility] Comment on above:Performed By: #### RPRQ #### [facility] [address] [place] [address] Dr. Jerry SamuelCO2 [Moles/Vol]25.0 mmol/INteyff01.0-32.0The [facility] Comment on above:Performed By: #### RPRQ #### [facility] [address] [place] [address] Dr. Jerry SamuelCreatinine [Mass/Vol]0.40 mg/dLCritically low0.55-1.02The [facility] HospitalComment on above:Performed By: #### RPRQ #### [facility] [address] [place] [address] Dr. Edwards ChangEGFR-AF GUAMANIAN>60Normal>=60The [facility] HospitalComment on above:Performed By: #### RPRQ #### [facility] [address] [address] [address] Jerry GonzalesGFR-NON AF GUAMANIAN>60Normal>=60The [facility] HospitalComment on above:Performed By: #### RPRQ #### [facility] [address] [address] [address] Jerry SamuelGlobulin (S) [Mass/Vol]3.5 g/dLNormBarnesville HospitalComment on above:Performed By: #### RPRQ #### [facility] [address] [place] [address] Dr. Jerry SamuelGlucose [Mass/Vol]94 mg/hQRkefgc44-718Van [facility] Comment on above:Performed By: #### RPRQ #### [facility] [address] [place] [address] Dr. Jerry SamuelPotassium [Moles/Vol]3.5 mmol/LNormal3.5-5.1The [facility] Comment on above:Performed By: #### RPRQ #### [facility] [address] [place] [address] Dr. Jerry SamuelProtein [Mass/Vol]6.9 g/dLNormal6.4-8.2The [facility] Comment on above:Performed By: #### RPRQ #### [facility] [address] [place] [address] Dr. Jerry SamuelSodium [Moles/Vol]135 mmol/LCritically fre909-693Zmo [facility] HospitalComment on above:Performed By: #### RPRQ #### [facility] [address] [place] [address] Dr. Jerry SamuelUrea nitrogen [Mass/Vol]6.0 mg/dLCritically low7.0-18.0The [facility] HospitalComment on above:Performed By: #### RPRQ #### [facility] [address] [place] [address] Dr. Jerry SamuelUrea nitrogen/Creatinine [Mass ratio]15.0 mg/mgNormalThe [facility] HospitalComment on above:Performed By: #### RPRQ #### [facility] [address] [place] [address] Dr. Jerry Bloom BOX TEST PT SEND OUTon [id number] TO REF LAB05/02/2022 NormalThe [facility] on above:Performed By: #### NBOX #### [facility] [address] [place] [address] Dr. Jerry Carter B SURFACE ANTIGEN SCREENon 28-35-6025FKnEv ScreenNegative NormalNegativeThe [facility] HospitalComment on above:Performed By: #### NBOX #### [facility] [address] [place] [address] Dr. Jerry CantrellTIS C VIRUS AB W/ REFLEX QUANTon [id number] AB<0.1Normal 0.0-0.9The [facility] on above:Performed By: #### HCVPCRR #### [facility] [address] [place] [address] Dr. Jerry SamuelInterpretation:CommentNormalThe [facility] HospitalComkarmanos cancer center on above:Result Comment: Negative Not infected with HCV, unless recent infection is suspected or other evidence exists to indicate HCV infection.Performed By: #### HCVPCRR #### [facility] [address] [place] [address] Dr. Jerry SamuelHIV 1 AND 2 WITH REFLEXon 95-59-2849MOK Screen 4th Generation wRfxNon-ReactiveNormalNon ReactiveThe [facility] HospitalComkarmanos cancer center on above:Result Comment: HIV Negative HIV-1/HIV-2 antibodies and HIV-1 p24 antigen were NOT detected. There is no laboratory evidence of HIV infection.Performed By: #### RPRQ #### [facility] [address] [place] [address] Dr. Jerry SamuelRPR QUANTon 62-79-3473Zcbub Plasma Reagin, QuantNon-Reactive NormalNonRea<1:1The [facility] on above:Result Comment: Please Note: This test does not meet current guidelines for screening and diagnosis of syphilis. This test is intended for following treatment response in patients being treated for syphilis infection. To screen for syphilis infection, a reflex cascade that includes both RPR and a treponema-specific assay should be utilized, such as Treponema pallidum (Syphilis) Screening Dane (034291) or Rapid Plasma Reagin (RPR) Test With Reflex to Quantitative RPR and Confirmatory Treponema pallidum Antibodies (764926).Performed By: #### RPRQ #### [facility] [address] [place] [address] Dr. Jerry Akhtar AB IGGon 19-21-2176Cjviblo Antibodies, IgG1.97 index NormalImmune >0.99The [facility] HospitalComment on above:Result Comment: Non- immune <0.90 Equivocal 0.90 - 0.99 Immune >0.99Performed By: #### RUBIGG #### [facility] [address] [place] [address] Dr. Jerry Miller AUTO DIFFon 90-60-0604QWTW #0.0 103/ulNormal0.0-0.1The [facility] HospitalComment on above:Performed By: #### RPRQ #### [facility] [address] [place] [address] Dr. Jerry Tylersophils/100 WBC (Bld)0.3 %Normal0.2-2.0The [facility] Comment on above:Performed By: #### RPRQ #### [facility] [address] [place] [address] Dr. Jerry Landry #0.1 103/ulNormal0.0-0.7The [facility] HospitalComment on above: Performed By: #### RPRQ #### [facility] [address] [place] [address] Dr. Jerry Gonzalesosinophils/100 WBC (Bld)0.7 %Critically low0.9-7.0The [facility] HospitalComment on above:Performed By: #### RPRQ #### [facility] [address] [place] [address] Dr. Jerry Gonzalesrythrocyte distribution width (RBC) [Ratio]12.3 %Vpmpya40.0-15.0 The [facility] HospitalComment on above:Performed By: #### RPRQ #### [facility] [address] [place] [address] Dr. Jerry SamuelHematocrit (Bld) [Volume fraction]35.1 %Critically low36.0-48.0 The [facility] HospitalComment on above:Performed By: #### RPRQ #### [facility] [address] [place] [address] Dr. Jerry SamuelHemoglobin (Bld) [Mass/Vol]11.8 g/dLCritically low12.0-16.0The [facility] HospitalComment on above:Performed By: #### RPRQ #### [facility] [address] [place] [address] Dr. Jerry Luu #0.02 10e3/ulNormal0.00-0.03The [facility] HospitalComment on above:Performed By: #### RPRQ #### [facility] [address] [place] [address] Dr. Jerry Luu %0.3 %Normal0.0-0.5The [facility] HospitalComment on above: Performed By: #### RPRQ #### [facility] [address] [place] [address] Dr. Jerry Loyd #2.0 103/ulNormal1.2-3.8The [facility] HospitalComment on above:Performed By: #### RPRQ #### [facility] [address] [place] [address] Dr. Jerry Kwanhocytes/100 WBC (Bld)26.7 %Qpjvjv38.5-60.0The [facility] HospitalComment on above:Performed By: #### RPRQ #### [facility] [address] [place] [address] Dr. Jerry AldanaUAL DIFF REQNONormalThe [facility] HospitalComment on above: Performed By: #### RPRQ #### [facility] [address] [place] [address] Dr. Jerry Gentile (RBC) [Entitic mass]29.0 vsYvadga56.7-34.0The [facility] HospitalComment on above:Performed By: #### RPRQ #### [facility] [address] [place] [address] Dr. Jerry Aggarwal (RBC) [Mass/Vol]33.6 g/cOIjyafc02.9-35.2The [facility] HospitalComment on above:Performed By: #### RPRQ #### [facility] [address] [place] [address] Dr. Jerry Aggarwal (RBC) [Entitic vol]86.2 nAOlxvwz24.0-99.0The [facility] HospitalComment on above:Performed By: #### RPRQ #### [facility] [address] [place] [address] Dr. Jerry Antony #0.5 103/ulNormal0.3-0.8The [facility] HospitalComment on above:Performed By: #### RPRQ #### [facility] [address] [place] [address] Dr. Jerry Maysocytes/100 WBC (Bld)6.7 %Normal1.7-12.0The [facility] Comment on above:Performed By: #### RPRQ #### [facility] [address] [place] [address] Dr. Jerry Story #4.9 103/ulNormal1.4-6.5The [facility] HospitalComment on above:Performed By: #### RPRQ #### [facility] [address] [place] [address] Dr. Jerry Marinelliutrophils/100 WBC (Bld)65.3 %Ymvbwl27.0-75.0The [facility] HospitalComment on above:Performed By: #### RPRQ #### [facility] [address] [place] [address] Dr. Jerry Mendozalet mean volume (Bld) [Entitic vol]10.0 fLNormal9.5-13.5The [facility] HospitalComment on above:Performed By: #### RPRQ #### [facility] [address] [address] [address] Jerry SamuelPLT218 103/qdZaucvg306-434Zku [facility] on above: Performed By: #### RPRQ #### [facility] [address] [place] [address] Dr. Jerry SamuelRBC4.07 106/ulCritically low4.20-5.40The [facility] HospitalComkarmanos cancer center on above:Performed By: #### RPRQ #### [facility] [address] [place] [address] Dr. Jerry SamuelWBC7.5 103/ulNormal4.0-11.0The [facility] on above: Performed By: #### RPRQ #### [facility] [address] [place] [address] Dr. Jerry SamuelCULTURE URINEon 83-97-0138LXOMSNI URINECulture Observations: NO GROWTH.NormalThe [facility] HospitalComment on above:Performed By: #### NBOX #### [facility] [address] [place] [address] Dr. Jerry SamuelGLYCOHEMOGLOBIN A1Con [id number] RECOMMENDATIONSEE BELOWNormal [facility] HospitalComkarmanos [facility] on above:Result Comment: ADA RECOMMENDED LIMIT 4.0 - 6.0 ADA THERAPEUTIC TARGET < 7.0 ACTION SUGGESTED > 7.0Performed By: #### NBOX #### [facility] [address] [place] [address] Dr. Jerry SamuelGlucose [Mass/Vol]97 mg/dLNormalThGrant Hospital on above:Performed By: #### NBOX #### [facility] [address] [place] [address] Dr. Jerry SamuelHbA1c (Bld) [Mass fraction]5.0 %Normal4.5-6.2The [facility] Systemment on above:Performed By: #### NBOX #### [facility] [address] [place] [address] Dr. Jerry Tayolr AND SCREENon 41-96-0525TYYE AND SCREENNegativeCoshocton Regional Medical CenterComment on above:Performed By: #### NBOX #### [facility] [address] [place] [address] Dr. Jerry Nieto PREG TVon [id number] PREG TVEXAMINATION: US PREG TV HISTORY: Missed period COMPARISON: [...] Electronically authenticated by: EDITH WILLIS Date: 2022-04-04 16:13[facility] Medical CenterPREG QUANT HCGon 28-25-7379ZMZ ODZPB0386 mIU/mLNormalGenesis HospitalComment on above:Performed By: #### RPRQ #### [facility] [address] [place] [address] Dr. Jerry ReidG RANGESEE [facility] Healthcare SystemComment on above: Result Comment: 5-50 0.2-1 WEEK 50-500 1-2 WEEKS 100-5,000 2-3 WEEKS 500-10,000 3-4 WEEKS 1,000-50,000 4-5 WEEKS 10,000-100,000 5-6 WEEKS 15,000-200,000 6-8 WEEKS 10,000-100,000 2-3 MONTHSPerformed By: #### RPRQ #### [facility] [address] [place] [address] Dr. Jerry Gannon QUANT HCGon 76-97-7858IYK TIAIM399 mIU/mLNormalGenesis HospitalComment on above:Performed By: #### RPRQ #### [facility] [address] [place] [address] Dr. Jerry SamuelHCG [facility] on above: Result Comment: 5-50 0.2-1 WEEK 50-500 1-2 WEEKS 100-5,000 2-3 WEEKS 500-10,000 3-4 WEEKS 1,000-50,000 4-5 WEEKS 10,000-100,000 5-6 WEEKS 15,000-200,000 6-8 WEEKS 10,000-100,000 2-3 MONTHSPerformed By: #### RPRQ #### [facility] [address] [place] [address] Dr. Jerry Perkins ACOG PANEL 2: 21 to 29on 02-21-2022..NormalMer[facility] on above:Performed By: #### RPRQ #### [facility] [address] [place] [address] Dr. Jerry Tovar Gdln [facility] [place] Kxcscde48-13TrhltjCckUniversity Hospitals Conneaut Medical Center on above:Performed By: #### RPRQ #### [facility] [address] [place] [address] Dr. Jerry SamuelDIAGNOSIS:CommentUniversity Hospitals Conneaut Medical Center on above: Result Comment: NEGATIVE FOR INTRAEPITHELIAL LESION OR MALIGNANCY. SPECIMEN REPROCESSED FOR INTERPRETATION.Performed By: #### RPRQ #### [facility] [address] [place] [address] Dr. Jerry SamuelMethodology:CommentUniversity Hospitals Conneaut Medical Center on above: Result Comment: This liquid based ThinPrep(R) pap test was screened with the use of an image guided system.Performed By: #### RPRQ #### [facility] [address] [place] [address] Dr. Jerry SamuelNote:CommentUniversity Hospitals Conneaut Medical Center on above:Result Comment: The Pap smear is a screening test designed to aid in the detection of premalignant and malignant conditions of the uterine cervix. It is not a diagnostic procedure and should not be used as the sole means of detecting cervical cancer. Both false-positive and false-negative reports do occur. .Performed By: #### RPRQ #### [facility] [address] [place] [address] Dr. Jerry SamuelPerformed by:CommentUniversity Hospitals Conneaut Medical Center on above: Result Comment: Ger Roman, Data Modeling Specialist (ASCP)Performed By: #### RPRQ #### [facility] [address] [place] [address] Dr. Jerry SamuelReflex Criteria:CommentUniversity Hospitals Conneaut Medical Center on above:Result Comment: The HPV DNA reflex criteria were not met with this specimen result therefore, no HPV testing was performed. .Performed By: #### RPRQ #### [facility] [address] [place] [address] Dr. Jerry SamuelSpecimen adequacy:CommentUniversity Hospitals Conneaut Medical Center on above:Result Comment: Satisfactory for evaluation. Endocervical and/or squamous metaplastic cells (endocervical component) are present.Performed By: #### RPRQ #### [facility] [address] [place] [address] Dr. Jerry SamuelUS PELVIS AND TRANSVAGon 28-03-0564NH PELVIS AND TRANSVAG EXAMINATION: US PELVIS AND [...] Electronically authenticated by: EDITH WILLIS Date: 2022-02-13 14:34[facility] AUTO DIFFon [id number] #0.0 103/ulNormal0.0-0.1The [facility] on above:Performed By: #### CBC #### [facility] [address] [address] [address] Jerry SamuelBasophils/100 WBC (Bld)0.6 %Normal0.2-2.0The [facility] Comment on above:Performed By: #### CBC #### [facility] [address] [address] [address] Jerry Landry #0.1 103/ulNormal0.0-0.7The [facility] HospitalComment on above: Performed By: #### CBC #### [facility] [address] [place] [address] Dr. Jerry Gonzalesosinophils/100 WBC (Bld)1.2 %Normal0.9-7.0The [facility] Comment on above:Performed By: #### CBC #### [facility] [address] [place] [address] Dr. Jerry Gonzalesrythrocyte distribution width (RBC) [Ratio]11.9 %Dkceec84.0-15.0 The [facility] HospitalComment on above:Performed By: #### CBC #### [facility] [address] [place] [address] Dr. Jerry SamuelHematocrit (Bld) [Volume fraction]39.1 %Fvgpoa81.0-48.0The [facility] HospitalComment on above:Performed By: #### CBC #### [facility] [address] [place] [address] Dr. Jerry SamuelHemoglobin (Bld) [Mass/Vol]13.0 g/bZSpzowd12.0-16.0The [facility] HospitalComment on above:Performed By: #### CBC #### [facility] [address] [place] [address] Dr. Jerry Luu #0.01 10e3/ulNormal0.00-0.03The [facility] HospitalComment on above:Performed By: #### CBC #### [facility] [address] [place] [address] Dr. Jerry Luu %0.2 %Normal0.0-0.5The [facility] HospitalComment on above: Performed By: #### CBC #### [facility] [address] [address] [address] Jerry Loyd #2.4 103/ulNormal1.2-3.8The [facility] on above:Performed By: #### CBC #### [facility] [address] [place] [address] Dr. Jerry Kwanhocytes/100 WBC (Bld)37.7 %Ycpwak13.5-60.0The [facility] HospitalComment on above:Performed By: #### CBC #### [facility] [address] [place] [address] Dr. Jerry Hodgson DIFF REQNONormalThe [facility] HospitalComment on above: Performed By: #### CBC #### [facility] [address] [place] [address] Dr. Jerry Gentile (RBC) [Entitic mass]29.2 mwFtytng25.7-34.0The [facility] HospitalComment on above:Performed By: #### CBC #### [facility] [address] [place] [address] Dr. Jerry Aggarwal (RBC) [Mass/Vol]33.2 g/aYJjpulx06.9-35.2The [facility] on above:Performed By: #### CBC #### [facility] [address] [place] [address] Dr. Jerry Aggarwal (RBC) [Entitic vol]87.9 fVAenyhs50.0-99.0The [facility] HospitalComment on above:Performed By: #### CBC #### [facility] [address] [place] [address] Dr. Jerry Antony #0.4 103/ulNormal0.3-0.8The [facility] on above:Performed By: #### CBC #### [facility] [address] [place] [address] Dr. Jerry Maysocytes/100 WBC (Bld)5.9 %Normal1.7-12.0The [facility] Comment on above:Performed By: #### CBC #### [facility] [address] [place] [address] Dr. Jerry Story #3.5 103/ulNormal1.4-6.5The [facility] HospitalComment on above:Performed By: #### CBC #### [facility] [address] [place] [address] Dr. Jerry Marinelliutrophils/100 WBC (Bld)54.4 %Mlcjzh44.0-75.0The [facility] HospitalComment on above:Performed By: #### CBC #### [facility] [address] [place] [address] Dr. Jerry Granados mean volume (Bld) [Entitic vol]9.9 fLNormal9.5-13.5The [facility] HospitalComment on above:Performed By: #### CBC #### [facility] [address] [place] [address] Dr. Jerry SamuelPLT229 103/syBgtkqs558-514Avb [facility] HospitalComment on above: Performed By: #### CBC #### [facility] [address] [place] [address] Dr. Jerry SamuelRBC4.45 106/ulNormal4.20-5.40The [facility] HospitalComment on above:Performed By: #### CBC #### [facility] [address] [place] [address] Dr. Jerry SamuelWBC6.5 103/ulNormal4.0-11.0The [facility] HospitalComment on above: Performed By: #### CBC #### [facility] [address] [place] [address] Dr. Jerry Merrill T4on 23-09-6857Cmei T4 [Mass/Vol]0.99 ng/dLNormal0.76-1.46 The [facility] HospitalComment on above:Performed By: #### RPRQ #### [facility] [address] [place] [address] Dr. Jerry CastellonCOHEMOGLOBIN A1Con [id number] RECOMMENDATIONSEE BELOWPateros The [facility] HospitalComkarmanos cancer center on above:Result Comment: ADA RECOMMENDED LIMIT 4.0 - 6.0 ADA THERAPEUTIC TARGET < 7.0 ACTION SUGGESTED > 7.0Performed By: #### RPRQ #### [facility] [address] [place] [address] Dr. Jerry SamuelGlucose [Mass/Vol]103 mg/dLNoPike Community HospitalComment on above:Performed By: #### RPRQ #### [facility] [address] [place] [address] Dr. Jerry SamuelHbA1c (Bld) [Mass fraction]5.2 %Normal4.5-6.2The [facility] HospitalComment on above:Performed By: #### RPRQ #### [facility] [address] [place] [address] Dr. Jerry SamuelPROTIMEon 58-94-1618ROX Coag (PPP) [Relative time]1.00 {INR} NormalMercy Health Fairfield Hospital on above:Performed By: #### NBOX #### [facility] [address] [place] [address] Dr. Jerry Joseph GUIDELINESSEE [facility] Healthcare SystemComkarmanos cancer center on above:Result Comment: DESIRED INR: 2.0 - 3.0 CONDITIONS NOT LISTED BELOW 2.5 - 3.5 FOR PROSTHETIC HEART VALVE REPLACEMENT 2.5 - 3.5 RECURRENT THROMBOSIS Performed By: #### NBOX #### [facility] [address] [place] [address] Dr. Jerry SamuelPT Coag (PPP) [Time]10.8 sNormal9.0-11.6The [facility] Comment on above:Performed By: #### NBOX #### [facility] [address] [place] [address] Dr. Jerry Agustin 59-99-4404lPWN Coag (Bld) [Time]27.8 nEpozkh25.3-36.2The [facility] HospitalComment on above:Performed By: #### NBOX #### [facility] [address] [address] [address] Jerry Villa 34-84-6932HPL4.741 uIU/mLNormal0.358-3.740The [facility] HospitalComment on above:Performed By: #### TSH #### [facility] [address] [address] [address] Jrery Garcia Recordson 82-38-4701Vlcbdmx Records [id number]#1.00[facility] Outside Recordson 93-29-2603Iaketcv Records [id number]#1.00[facility] Vital Signs Date TimeVital SignValuePerforming DyviphbruTahnzimn49-49-5405 10:57-0400Body qudqdl630.47 cmBritt Harris APRN Work Phone: [phone] [place], [place] 1667410-21-2025 10:57-0400 Body mass index (BMI) [Ratio]29.2 kg/x1EfankfkmBritt Harris DIRECTOR OF ADVERTISING SALES Work Phone: [phone])[phone] [place], [place] 1667410-21-2025 10:57-0400 Body hfouijaehlb93 [degF]Britt Harris DIRECTOR OF ADVERTISING SALES Work Phone: [phone] [place], [place] 1667410-21-2025 10:57-0400 Body ripbpo69.92 kgBritt Harris DIRECTOR OF ADVERTISING SALES Work Phone: [phone]10-21-2025 10:57-0400 Diastolic blood daftyvlz19 mm[Hg]Britt Harris DIRECTOR OF ADVERTISING SALES Work Phone: [phone]10-21-2025 10:57-0400 Heart rate90 /minBritt Harris DIRECTOR OF ADVERTISING SALES Work Phone: [phone])479-[address] [place], [place] 16[address]10-21-2025 10:57-0400 SaO2% (BldA) [Mass fraction]98 %Britt Steinacher DIRECTOR OF ADVERTISING SALES Work Phone: [phone]10-21-2025 10:57-0400 Systolic blood ntkquebd405 mm[Hg]Britt Gordonmercedes DIRECTOR OF ADVERTISING SALES Work Phone: 1(678)564-[address] [place], [place] 1667408-13-2025 09:29-0400 Body ubbozf624.47 cmBritt Gordonsherylesthercarola DIRECTOR OF ADVERTISING SALES Work Phone: [phone])[address]08-13-2025 09:29-0400 Body mass index (BMI) [Ratio]28 kg/p9NjkrstpfBritt Mckeoncarola DIRECTOR OF ADVERTISING SALES Work Phone: [phone] [place], [place] 287[address]108-13-2025 09:29-0400 Body xagukgdwhqb98.6 [degF]Britt Gordonmercedes DIRECTOR OF ADVERTISING SALES Work Phone: [phone] [place], [place] 2876108-13-2025 09:29-0400 Body ugeysg10.74 kgBritt Gordonsherylesthercarola DIRECTOR OF ADVERTISING SALES Work Phone: [phone]08-13-2025 09:29-0400 Diastolic blood eafdoffe47 mm[Hg]Britt Gordonmercedes DIRECTOR OF ADVERTISING SALES Work Phone: [phone]08-13-2025 09:29-0400 Heart rate91 /minBritt Mckeoncarola DIRECTOR OF ADVERTISING SALES Work Phone: [phone] [place], [place] 287[address]108-13-2025 09:29-0400 SaO2% (BldA) [Mass fraction]97 %Britt Gordonmercedes DIRECTOR OF ADVERTISING SALES Work Phone: 1(387)273-[address] [place], [place] 1667408-13-2025 09:29-0400 Systolic blood grhtnoky659 mm[Hg]Britt Gordonmercedes DIRECTOR OF ADVERTISING SALES Work Phone: [phone])[address]49 [address]06-04-2025 14:13-0400 Body oztdpd590.47 cmMelissa Marker DO Work Phone: [facility]06-04-2025 14:13-0400 Body mass index (BMI) [Ratio]28.5 kg/x2Pcckfde Marker DO Work Phone: [phone])644-[address] [place], [place] 7494006-04-2025 14:13-0400 Body mgajft04.11 kgMelissa Marker DO Work Phone: [phone])528-[address] [place], [place] 7494006-04-2025 14:13-0400 Diastolic blood ppkkbyho19 mm[Hg]Jennifer Marker DO Work Phone: [phone] [place], [place] 7494006-04-2025 14:13-0400 Heart rate71 /minMelissa Marker DO Work Phone: [phone] [place], [place] 7494006-04-2025 14:13-0400 Systolic blood gftmexcb416 mm[Hg]Jennifer Marker DO Work Phone: [phone]03-31-2025 15:29-0400 Body mass index (BMI) [Ratio]28.55 kg/g6Amceh Nova DO Work Phone: [facility] HospitalXeafekzrgz92-57-4427 15:29-0400Body pbyouu89.19 kgCorey Nova DO Work Phone: [facility] HospitalQduboejiey62-81-9016 15:29-0400Diastolic blood chbumdyd02 mm[Hg]Asif Nova DO Work Phone: [facility] HospitalTanmvpbbwp48-86-7489 15:29-0400Systolic blood lavbnmfs638 mm[Hg]Asif Nova DO Work Phone: [facility] HospitalAxncapabtn26-72-6750 15:03-0500Body mass index (BMI) [Ratio]28.86 kg/z9Qkqes Nova DO Work Phone: [facility] HospitalPlidrbqtvp66-13-0276 15:03-0500Body .09 kgCorey Nova DO Work Phone: [facility] HospitalWkcgjtyztw89-87-7835 15:03-0500Diastolic blood xuvjobbg20 mm[Hg]Asif Nova DO Work Phone: [facility] HospitalEdcoocazfe07-24-5599 15:03-0500Systolic blood vkumeyyp545 mm[Hg]Asif Nova DO Work Phone: [phone] [place], [place] [address]Bhcnfvgesw08-00-2247 14:28-0500Body mass index (BMI) [Ratio]29.32 kg/y9Oputo Nova DO Work Phone: [phone]-Critical access hospital5[facility] HospitalXgcprfpayd98-93-0558 14:28-0500Body vlyfhf22.45 kgCorey Nova DO Work Phone: 1(280)[facility] [place], [place] [address]Egfegbqrrh20-14-0373 14:28-0500Diastolic blood pnmegery81 mm[Hg]Asif Nova DO Work Phone: [phone] [place], [place] [address]Dfextmubqn84-46-7772 14:28-0500Systolic blood tvdsisjs137 mm[Hg]Asif Nova DO Work Phone: [phone])[facility] [place], [place] [address]Uaixphxnpc57-73-2542 13:15-0500Body mass index (BMI) [Ratio]29.19 kg/m2Kirsty Eliceo RAHMAN Work Phone: 1(284)[facility] [place], [place] [address]Ujrmlspxwb70-47-3226 13:15-0500Body .09 kgAmy Eliceo RAHMAN Work Phone: 1(248)[facility] [place], [place] [address]Xfgtqdcxrp09-14-7571 13:15-0500Diastolic blood yzzuemyv36 mm[Hg]Kirsty RAHMAN Work Phone: [phone] [place], [place] [address]Jtramwkybu47-70-7655 13:15-0500Systolic blood vzignfke975 mm[Hg]Kirsty RAHMAN Work Phone: 1(377)[facility] [place], [place] [address]Mzxkptsehf60-32-8590 12:18-0500Body mass index (BMI) [Ratio]29.8 kg/k0Oawha Nova DO Work Phone: 1(418)[facility] [place], [place] [address]Hpyjbzhqcx22-25-6714 12:18-0500Body raurjw32.91 kgCorey Nova DO Work Phone: 1(785)[facility] [place], [place] [address]Rculwtjkdz49-50-9296 12:18-0500Diastolic blood qcebothh87 mm[Hg]Asif Nova DO Work Phone: 1(482)[facility] [place], [place] [address]Fpmzhwyfmu41-86-1746 12:18-0500Systolic blood vplchqvi091 mm[Hg]Asif Nova DO Work Phone: [facility] HospitalWzvqkhthwp79-24-8026 13:24-0500Body mass index (BMI) [Ratio]30.38 kg/m2Kirsty Fenton JOSIAH Work Phone: [facility] HospitalRtlnkedssy44-05-7458 13:24-0500Body zusrke86.63 kgKirsty Fenton JOSIAH Work Phone: [facility] HospitalVlpssmwasj59-71-5227 13:24-0500Diastolic blood hognqhtu49 mm[Hg]Kirsty Fenton JOSIAH Work Phone: [facility] HospitalGsoawczxtt27-79-1642 13:24-0500Systolic blood mm[Hg]Kirsty Fenton PA Work Phone: [phone] [place], [place] [address]Tmgjqrnnmp87-58-5905 16:52-0500Body mass index (BMI) [Ratio]30.62 kg/n3Qtitj Nova DO Work Phone: [phone])323-[address] [place], [place] [address]Ajlwhitvgl48-81-2389 16:52-0500Body qjwyoj11.35 kgCorey Nova DO Work Phone: [phone]-Critical access hospital7[facility] HospitalXwtyjkolnd26-08-5534 16:52-0500Diastolic blood kstvevfm02 mm[Hg]Asif Nova DO Work Phone: [facility] HospitalQastzeqgjj17-61-9597 16:52-0500Systolic blood gehbzaad259 mm[Hg]Asif Nova DO Work Phone: [phone] [place], [place] [address]Avvkjwezpz44-20-8978 16:03-0500Body mass index (BMI) [Ratio]30.11 kg/x0Pbdhm Nova DO Work Phone: [phone])406-[address] [place], [place] [address]Inmhehztmf18-77-7645 16:03-0500Body gwmykl24.81 kgCorey Nova DO Work Phone: 1(454)142-[address] [place] [address]-04-2024 16:03-0500Diastolic blood ezmthwql01 mm[Hg]Asif Nova DO Work Phone: [phone])058-Critical access hospital[address] [address]Wyupgsjzvv42-06-8669 16:03-0500Systolic blood ueqyuxcm320 mm[Hg]Asif Nova DO Work Phone: [facility] HospitalPxijbvrhak88-13-2994 15:50-0400Body mass index (BMI) [Ratio]29.97 kg/w3Hjrsd Nova DO Work Phone: [facility] HospitalVolgdyqmhm11-43-9960 15:50-0400Body kzqaqc80.41 kgCorey Nova DO Work Phone: [facility] HospitalBctxcbcima24-18-3104 15:50-0400Diastolic blood mm[Hg]Asif Nova DO Work Phone: [facility] HospitalOtburzflst45-42-3348 15:50-0400Systolic blood mm[Hg]Asif Nova DO Work Phone: [facility] HospitalRdkjyaslfr89-21-5609 11:17-0400Body mass index (BMI) [Ratio]30.33 kg/m2Kirsty RAHMAN Work Phone: [facility] HospitalWvobbhigzi02-17-4035 11:17-0400Body rphlim42.49 kgKirsty RAHMAN Work Phone: [facility] HospitalUnrfyutbdc74-98-0791 11:17-0400Diastolic blood hnsfaszh16 mm[Hg]Kirsty RAHMAN Work Phone: [facility] HospitalEhsxigzxqe88-84-4715 11:17-0400Systolic blood bwrwkmih662 mm[Hg]Kirsty RAHMAN Work Phone: [facility] HospitalMwnreynfzb38-80-9810 09:34-0400Body mass index (BMI) [Ratio]30.41 kg/m2NoNortheast [facility]09-06-2024 09:34-0400Body .72 kgNowi NurseFitzgibbon HospitalAeuucoidwf70-36-1618 09:34-0400Diastolic blood igfdpvqc80 mm[Hg][facility] NurseFitzgibbon HospitalVuovfanezx79-95-6256 09:34-0400Systolic blood posybbai634 mm[Hg][facility]12-20-2023 13:45-0500Body height 164.47 Jaquanameron Ditty Other [employer] Other 12-20-2023 13:45-0500Body mass index (BMI) [Ratio]29.6 kg/d3Akcemcn Ditty Other [employer] Other 12-20-2023 13:45-0500Body ubfzyw08.06 kgCameron Ditty Other [employer] Other 12-20-2023 13:45-0500Diastolic blood cxkotkbq68 mm[Hg] Ben Ditty Other [employer] Other 12-20-2023 13:45-0500Systolic blood qdqqaepu401 mm[Hg] Ben Carmeny Other [employer] Other 03-10-2023 17:07-0500Body rbewti55.8336 kgDR ASIFAugusto BHATT .The [facility] HospitalComment on above:Performed By: #### RPRQ #### [facility] [address] [place] [address] Dr. Jerry Samuel12-02-2022 11:15-0500Body .47 cmCameron Ditty Other [employer] Other 12-02-2022 11:15-0500Body mass index (BMI) [Ratio] 29.01 kg/z9Ncrgedh Ditty Other [employer] Other 12-02-2022 11:15-0500Body sfxyfq39.47 kgCameron Ditty Other [employer] Other 12-02-2022 11:15-0500Diastolic blood acnqersm27 mm[Hg] Ben Rose Other [employer] Other 12-02-2022 11:15-0500Systolic blood mm[Hg] Ben Rose Other [employer] Other Encounters Encounter DateEncounter TypeCare ProviderFacilityStart: 01-25-2025 End: 24-58-0089kosaisjnptXfcalvcy Evanrbacher DIRECTOR OF ADVERTISING SALES Work Phone: -[facility]edotart: 01-25-2025 End: 86-42-9359Zrjvigm encounter procedureJennifer Saritaacher DIRECTOR OF ADVERTISING SALES [facility] Work Phone: Start: 12-17-2024 End: 19-85-0370Riopslnbz Result EncounterCorey Nova DO Work Phone: noms External Department UnsolicitedStart: 12-17-2024 End: 01-34-3267Rozeksjgq Result EncounterCorey Nova DO Work Phone: noms External Department UnsolicitedStart: 12-17-2024 Non-patient / Non-visitCorey Nova-[facility] Work Phone: Start: 39-95-4593Pqt-patient / Non-visitJennifer Evanrbacher DIRECTOR OF ADVERTISING SALES [facility] Work Phone: Start: 11-17-2024 End: 42-15-0461ygnpdjyninWwlvefax Evanrbacher DIRECTOR OF ADVERTISING SALES Work Phone: [facility] Work Phone: Start: 11-17-2024 End: 30-63-6859Avdxzaa encounter procedureJennifer Saritaacher DIRECTOR OF ADVERTISING SALES [facility] Work Phone: Start: 09-08-2024 End: 12-68-2134bfzlcxpfubSvyhutm Marker DO Work Phone: [facility] Work Phone: Start: 09-08-2024 End: 73-46-2385Ybvndos encounter procedureMelissa Marker DO Work Phone: [facility] Work Phone: Start: 69-03-7843Fql-patient / Non-visitMelissa Marker DO Work Phone: [facility] [facility] Work Phone: Start: 07-14-2024 End: 76-44-0481whmltzppklTlkziyy Jeri [facility] Work Phone: Start: 07-14-2024 End: 40-13-9810Mjpddxma ReferredMelissa Marker DO Work Phone: [facility]-LAB Path Spec [facility] HospStart: 26-43-9594Hml-patient / Non-visitMelissa Marker DO Work Phone: [facility] Work Phone: Start: 07-05-2024 End: 18-07-4194fnkwpuxukgFNSBH FAZIONot AvailableStart: 07-05-2024 End: 06-08-6838Eqefmx follow up visit related to original pxCorey Nova DO Work Phone: NODM BCP OBComment on above:S/P ; AnxietyStart: 55-96-4238Hkz-patient / Non-visitMelissa Marker DO Work Phone: [facility] Work Phone: Start: 54-73-4322Mye-patient / Non-visitMelissa Marker DO Work Phone: [facility] Work Phone: Start: 06-29-2024 End: 78-40-5106Svpkyzbrw Result EncounterCorey Nova DO Work Phone: noms External Department UnsolicitedStart: 06-29-2024 End: 93-69-6041Wsklnsdqo Result EncounterCorey Nova DO Work Phone: NOMS External Department UnsolicitedStart: 06-29-2024 Non-patient / Non-visitMelissa Marker DO Work Phone: [facility] Work Phone: Start: 06-28-2024 End: 29-16-3923wcdwkdwyhtZWQPA FAZIONot AvailableStart: 24-32-8576Rev-patient / Non-visitMelissa Marker DO Work Phone: [facility] Work Phone: Start: 06-21-2024 End: 71-94-0146Txngyqkml Result EncounterAmy Eliceo RAHMAN Work Phone: noMS External Department UnsolicitedStart: 06-21-2024 End: 87-64-7569Tjrwijppi Result EncounterAmy Eliceo RAHMAN Work Phone: noMS External Department UnsolicitedStart: 06-21-2024 End: 95-21-0404arlbmtohzyRNQ RAMEYNot AvailableStart: 06-07-2024 End: 91-70-3254jctpeucjjqXPBER FAZIONot AvailableStart: 06-07-2024 End: 89-42-2876Zoxbyomp flow sheetCorey Nova DO Work Phone: NOMS BCP OBComment on above:34 weeks gestation of ; Third trimester ; AnxietyStart: 06-07-2024 End: 54-69-1237Tjyppk flowsheetCorey Nova DO Work Phone: NOMS BCP OBStart: 06-07-2024 End: 31-47-6324Oagttj flowsheetCorey Nova DO Work Phone: NOMS BCP OBStart: 05-24-2024 End: 19-35-8434Gojfkckj flow sheetCorey Nova DO Work Phone: NOMS BCP OBComment on above:32 weeks gestation of ; Third trimester ; AnxietyStart: 05-24-2024 End: 98-84-2043wyrllkblhuFADNL FAZIONot AvailableStart: 05-11-2024 End: 55-83-7835Wkxjbh Chris RAHMAN Work Phone: NOMS BCP OBStart: 05-11-2024 End: 23-58-4123Zmodgb flowsMmata RAHMAN Work Phone: N[facility] BCP OBStart: 05-11-2024 End: 42-02-9175sxcustomywIFK Abigail AvailableStart: 05-11-2024 End: 42-58-1422Qlvvbmou flow sheetKirsty RAHMAN Work Phone: NOMS BCP OBComment on above: size inconsistent with dates (Primary Dx); 30 weeks gestation of ; Third trimester pregnancyStart: 04-27-2024 End: 06-68-6506Yhwrto flowsheetCorey Nova DO Work Phone: N[facility]S BCP OBStart: 04-27-2024 End: 34-31-6813Zdoetm flowsheetCorey Nova DO Work Phone: NOMS BCP OBStart: 04-27-2024 End: 43-42-9564qucezlhrxuJGIDQ FAZIONot AvailableStart: 04-27-2024 End: 31-66-9788Yigmrsdf flow sheetCorey Nova DO Work Phone: NOMS BCP OBComment on above:Second trimester ; 28 weeks gestation of pregnancyStart: 04-15-2024 End: 10-27-8166Lvytvbzec encounterEricleann Mcclendon LPN Work Phone: NOMS BCP OBStart: 04-10-2024 End: 25-05-5024Dgyxbuqkt Result EncounterKirsty RAHMAN Work Phone: NOMS External Department UnsolicitedStart: 04-10-2024 End: 34-25-2187Epavypwvk Result EncounterKirsty RAHMAN Work Phone: NOMS External Department UnsolicitedStart: 04-05-2024 End: 50-57-2622Vnlgcw flowsheetKirsty RAHMAN Work Phone: NOMS BCP OBStart: 04-05-2024 End: 37-86-4264Ryqbqj flowsheetKirsty RAHMAN Work Phone: NOMS BCP OBStart: 04-05-2024 End: 43-36-2651Smssqzyr flow sheetKirsty RAHMAN Work Phone: NOMS BCP OBComment on above:25 weeks gestation of ; Second trimester ; Diabetes mellitus screeningStart: 04-05-2024 End: 41-06-5265bvvxfvwuujHSL RAMEYNot AvailableStart: 03-08-2024 End: 46-98-3144pwxiybmekqKRVLO FAZIONot AvailableStart: 03-08-2024 End: 73-54-9509Hzqriwpf flow sheetCorey Nova DO Work Phone: NOMS BCP OBComment on above:Second trimester ; 21 weeks gestation of pregnancyStart: 03-08-2024 End: 11-95-6541Ljilrh flowsheetCorey Nova DO Work Phone: NOMS BCP OBStart: 03-08-2024 End: 57-97-1040Wjnleu flowsheetCorey Nova DO Work Phone: NOMS BCP OBStart: 02-18-2024 End: 47-88-2470Nipykibio Result EncounterCorey Nova DO Work Phone: NOMS External Department UnsolicitedStart: 02-18-2024 End: 75-39-6150Erkfimeak Result EncounterCorey Nova DO Work Phone: noMS External Department UnsolicitedStart: 02-09-2024 End: 66-69-3610Ilgytma encounter procedureCorey Nova DO Work Phone: NOMS HealthcareStart: 02-09-2024 End: 42-41-9247Kqepeatu flow sheetCorey Nova DO Work Phone: noms BCP OBComment on above:Second trimester ; 17 weeks gestation of ; Well woman exam with routine gynecological exam; Exposure to STD; MSAFP (maternal serum alpha-fetoprotein) decreased; Screening, , for anatomic surveyStart: 02-09-2024 End: 25-71-2387svpjaizscvMOUHZ FAZIONot AvailableStart: 02-09-2024 End: 04-37-2353Dmlvsw flowsheetCorey Nova DO Work Phone: noms BCP OBStart: 02-09-2024 End: 20-13-0132Wgmxqn flowsheetCorey Nova DO Work Phone: noms BCP OBStart: 02-09-2024 End: 45-28-8426Jzkqqiqt Result EncounterAmy Eliceo PA Work Phone: noms External Department UnsolicitedStart: 01-08-2024 End: 05-85-4597Gexinkkig Result EncounterCorey Nova DO Work Phone: noms External Department UnsolicitedStart: 01-08-2024 End: 85-39-3903Hkrjqgryg Result EncounterCorey Nova DO Work Phone: noms External Department UnsolicitedStart: 01-07-2024 End: 14-02-6498Zilgudyr flow sheetCorey Nova DO Work Phone: noms BCP OBComment on above:First trimester ; 12 weeks gestation of ; Nausea and vomiting during ; Dizziness; Constipation during in first trimesterStart: 01-07-2024 End: 19-32-4293qcxmrexytiWIEBA FAZIONot AvailableStart: 01-07-2024 End: 69-19-6638Jebbbr flowsheetCorey Nova DO Work Phone: noms BCP OBStart: 01-07-2024 End: 80-94-0357Qlzfde flowsheetCorey Nova DO Work Phone: noms BCP OBStart: 12-22-2023 End: 45-06-4944Rafjcppqr Result EncounterCorey Nova DO Work Phone: NOMS External Department UnsolicitedStart: 12-22-2023 End: 60-85-9485Buypmttcn Result EncounterCorey Nova DO Work Phone: NOMS External Department UnsolicitedStart: 12-17-2023 End: 40-23-3537Abqnqr flowsheetKirsty RAHMAN Work Phone: NOMS BCP OBStart: 12-17-2023 End: 21-97-1414Mukvqo flowsheetKirsty RAHMAN Work Phone: NOMS BCP OBStart: 12-17-2023 End: 00-04-7133Qjmolgky flow sheetKirsty Fenton PA Work Phone: noms BCP OBComment on above:First trimester Start: 12-17-2023 End: 61-08-2035rdgiqoasqkUMW RAMEYNot AvailableStart: 12-12-2023 End: 66-63-2895mvtxgdhivrRvun Bcp Ob Nova NurseNOMS BCP OBComment on above:GA: 8v0mFortv: 13-91-1961Vyukfhf encounter statusMelissa Marker DO Work Phone: [facility]: 03-26-2023 End: 25-28-8093hsyxwhmtidDlzgngl Ditty Other [employer] Other Start: 59-15-2953Kgevnsm encounter procedureCameron DittyFPG GastroenterologyStart: 01-24-2023 End: 11-72-1688jfnhlrnlicTkopnct Ditty Other [employer] Other Start: 31-18-4170Wrjtkaski encounterCameron DittyFPG GastroenterologyStart: 07-25-2022 End: 29-99-8303qdhnfhvcnwEY ASIF NOVA .Facility:M5Argqd: 07-02-2022 End: 97-05-4496jvpakmxtujIB ASIF NOVA .Facility:U4Dgxsf: 06-12-2022 End: 80-67-1219cuhdzjpxzcQT ASIF NOVA .Facility:Y5Bfdzf: 06-04-2022 End: 90-63-2980jcfmopudmmDN ASIF NOVA .Facility:V4Etzia: 05-26-2022 End: 89-37-7298fwtprisjxeOTKFHX TIN .Facility:V9Fqcfm: 05-02-2022 End: 14-70-4768jcaiketmpeQY ASIF NOVA .Facility:H0Uaiej: 04-19-2022 End: 83-91-2247tpwqrczaejGXO ELICEO .Facility:W0Nthec: 04-04-2022 End: 09-71-7904pwotmkmtxuAW ASIF NOVA .Facility:L8Pfjyt: 04-04-2022 End: 69-06-3781djbsptirpzQSNK EBERTFacility:M1Axwxs: 03-08-2022 End: 18-37-0091qclbidcufdQjsbmfg Elinorvitaliy Other [employer] [employer] Other Start: 10-29-9658Wunveqd encounter procedureCamivett RoseAUR[facility]A [facility] GastroenterologyStart: 03-07-2022 End: 49-56-0609qverwgapkyLM ASIF NOVA .Facility:L9Qbvng: 03-05-2022 End: 11-05-1866hzzwtuwpdbLOBK EBERTFacility:W0Xavmg: 02-13-2022 End: 85-82-5173zennqaudwtTWPE EBERTFacility:J6Wgaet: 02-12-2022 End: 69-41-2983bydlbgfwdhCTKU EBERTFacility:I8Bpruk: 02-12-2022 End: 35-01-0229purmenbymoXGGU EBERTFacility:K3Qdkpp: 11-12-2021 End: 99-22-4993shnjhxawvtLQVO EBERTFacility:S3Ydkur: 11-06-2021 End: 74-72-0569cxztorpwbjNyct A Mikael PRODUCTION STAGE MANAGER-CFacility:[facility]art: 11-05-2021 End: 12-54-8065ukzlsxkrbwDctq A Ebert PRODUCTION STAGE MANAGER-CFacility:[facility] Procedures DateProcedureProcedure DetailPerforming ClinicianStart: 09-69-7870PPI CBC WITH AUTO DIFFCorey Nova DO Work Phone: Start: 63-63-2788Rpwex cultureMelissa Marker DO Work Phone: start: 70-35-3868Bcmzv dip stick/tablet rgnt non-auto w/o micrscpCorey Nova DO Work Phone: Start: 62-43-0177VAR UA (CLEAN/CATCH) GLASS SCIENCE ENGINEER/MICRO IF IND.Asif Nova DO Work Phone: Start: 14-70-9362GHJ MISCELLANEOUS TESTKirsty RAHMAN Work Phone: Start: 82-27-8244Jksxg dip stick/tablet rgnt non-auto w/o micrscpCorey Nova DO Work Phone: Start: 22-88-6742Ykjos dip stick/tablet rgnt non-auto w/o micrscpCorey Nova DO Work Phone: Start: 28-85-0460Ajvmr dip stick/tablet rgnt non-auto w/o micrscpAmy Eliceo RAHMAN Work Phone: Start: 91-54-8480Lfmpz dip stick/tablet rgnt non-auto w/o micrscpCorey Nova DO Work Phone: Start: 93-13-8192BFG CBC WITH AUTO DIFFAmy Eliceo RAHMAN Work Phone: Start: 86-60-9584Kmagv dip stick/tablet rgnt non-auto w/o micrscpCorey Nova DO Work Phone: Start: 54-87-0504SCH, SERUM, OPEN SPINA BIFIDACorey Nova DO Work Phone: Start: 40-66-0456Lxxsa dip stick/tablet rgnt non-auto w/o micrscpCorey Nova DO Work Phone: Start: 99-00-5144CUKTAOSON VAGINITIS (HTRX)Kirsty RAHMAN Work Phone: Start: 44-43-9561CNJ CBC WITH AUTO DIFFCorey Nova DO Work Phone: Start: 30-46-1726Lzmcw dip stick/tablet rgnt non-auto w/o micrscpCorey Nova DO Work Phone: Start: 30-85-0131WXO CBC WITH AUTO DIFFCorey Nova DO Work Phone: Start: 65-58-5731Wkakq dip stick/tablet rgnt non-auto w/o micrscpAmy Eliceo RAHMAN Work Phone: Start: 98-12-3616Ndpvb dip stick/tablet rgnt non-auto w/o micrscpCorey Nova DO Work Phone: Start: 15-75-7972Zvxq cerv/vag auto thin layer prep mnl screenCorey Nova DO Work Phone: H/O: sectionS/P C-sectionCorey Nova DO Work Phone: Plan of Treatment DateCare ActivityDetailAuthorStart: 08-09-2024 End: 95-28-0273uhcgbvtcsv91/05/2025 2:30 PM EDT Visit [facility] BCP OB [address] [place] [address] Kirsty Fenton PA [address] [place] [address] NOMS BCP OBStart: 63-68-0854Uqbcmzky identified in Urine by CultureUrine Culture [facility]tart: 73-13-5894Lrfzp cultureHocking Valley Community Hospitaltart: 07-05-2024 End: 53-43-2230Egxlrzp encounter ofdanwsct83/31/2025 3:00 PM EDT Routine [facility]CP OB [address] [place] [address] Asif Bhatt, [address] [place] [address] NOM[facility] BCP OBStart: 06-21-2024 End: 84-56-9228Tzkvxzx encounter jyiylijmh35/17/2025 1:50 PM EDT Routine [facility] BCP OB [address] [place] [id number] Kirsty Fenton, PA [address] [place] [address] NOMS BCP OBStart: 06-07-2024 End: 11-71-9601Vywckfq encounter wqumpdaqr82/03/2025 2:40 PM EST Routine [facility] BCP OB [address] [place] [address] Asif Bhatt, [address] [place] [address] NOMS BCP OBStart: 05-24-2024 End: 84-84-3118Whfszac encounter pyihslxmi50/17/2025 2:40 PM EST Routine [facility] BCP OB [address] [place] [address] [place] [phone] Asif Bhatt, [address] [place] [address] NOMS BCP OBStart: 05-24-2024 End: 71-03-4286Iynifdtkwvma / ancillary services /17/2025 2:00 PM EST Ancillary Procedure [facility] OB [address] [place] [address] NOMS BCP OBStart: 05-11-2024 End: 57-93-5438LH for pregnancyUS OB follow up transabdominal approach Imaging Routine size inconsistent with dates Expected: 05/11/2024, Expires: 05/11/2025[facility] Work Phone: comment on above:Expected: 05/11/2024, Expires: 05/11/2025Start: 05-11-2024 End: 55-80-6504Rlkluaq encounter vxhipsjzw03/04/2025 1:00 PM EST Routine [facility] OB [address] [place] [address] Asif Bhatt, DO [address] [place] [address] NOMS BCP OBStart: 04-27-2024 End: 91-42-3202Zkcswuh encounter /21/2025 11:20 AM EST Routine [facility] OB [address] [place] [address] Asif Bhatt, DO [address] [place] [address] NOMS BCP OBStart: 04-05-2024 End: 45-57-6477LLV panel - Blood by Automated countCBC Lab Routine 25 weeks gestation of Second trimester Diabetes mellitus screening Expected: 04/05/2024 (Approximate), Expires: 04/05/2025[facility] Work Phone: comment on above:Expected: 04/05/2024 (Approximate), Expires: 04/05/2025Start: 04-05-2024 End: 93-20-0069Kdxwmouqlns of glucose 1 hour after glucose challenge for glucose tolerance testGlucose tolerance, 1 hour Lab Routine 25 weeks gestation of Second trimester Diabetes mellitus screening Expected: 04/05/2024 (Approximate), Expires: 04/05/2025[facility] HealthcareComment on above: Expected: 04/05/2024 (Approximate), Expires: 04/05/2025Start: 04-05-2024 End: 57-32-7346Qsfprnt encounter procedureNOADVENTIST HEALTH TEHACHAPI OBComment on above:Arrived Start: 03-10-2024 End: 06-64-9070Ojjfd fetoprotein, maternalAlpha fetoprotein, maternal Lab Routine MSAFP (maternal serum alpha-fetoprotein) decreased Expected: 03/10/2024 (Approximate), Expires: 03/10/2024[facility] HealthcareComment on above:Expected: 03/10/2024 (Approximate), Expires: 03/10/2024Start: 03-08-2024 End: 11-43-4304Jhzbujn encounter tspyyevje30/02/2024 3:50 PM EST Routine [facility] [address] [place] [address] Asif Bhatt DO [address] [place] [address] N[facility] BCP OBStart: 03-01-2024 End: 24-12-9106Cvvtzooajnks / ancillary services qeawsouluq75/25/2024 1:30 PM EST Ancillary Procedure [facility] [address] [place] [address] [phone] BCP OBStart: 02-09-2024 End: 28-06-2434Rqvsuvp encounter procedureNOMS BCP OBComment on above:Arrived Start: 02-09-2024 End: 12-07-3191YC for pregnancyUS OB ANATOMY SINGLE W US OB CERVICAL LENGTH Imaging Routine Screening, , for anatomic survey Expected: 02/09/2024 (Approximate), Expires: 02/08/2025[facility] HealthcareComment on above: Expected: 02/09/2024 (Approximate), Expires: 02/08/2025Start: 01-07-2024 End: 17-89-4195Zapmkme encounter procedureNOMS BCP OBComment on above:Arrived Start: 12-17-2023 End: 66-69-0815Lmcmwzv encounter mrmoaiglw16/11/2024 11:00 AM EDT Office Visit [facility] OB [address] [place] [phone] Kirsty Fenton PA [address] [place] [address] [facility] OBComment on above:ArrivedStart: 12-12-2023 End: 50-55-8346GFU/RhABO/Rh Lab Routine Missed menses Expected: 12/12/2023 (Approximate), Expires: 12/11/2024[facility] HealthcareComment on above:Expected: 12/12/2023 (Approximate), Expires: 12/11/2024Start: 12-12-2023 End: 82-32-7611Amsio type and Indirect antibody screen panel - BloodType and screen Lab Routine Missed menses Expected: 12/12/2023 (Approximate), Expires: 12/11/2024[facility] Work Phone: comment on above:Expected: 12/12/2023 (Approximate), Expires: 12/11/2024Start: 12-12-2023 End: 77-65-4725LB Pelvis transvaginalUS OB transvaginal Imaging Routine Missed menses Expected: 12/12/2023 (Approximate), Expires: 12/11/2024[facility] Comment on above:Expected: 12/12/2023 (Approximate), Expires: 12/11/2024acteria identified in Urine by CultureUrine culture Microbiology Routine Missed menses Ordered: 12/12/2023[facility] HealthcareComment on above:Ordered: 12/12/2023BC W Auto Differential panel - BloodCBC and differential Lab Routine Nausea and vomiting during Dizziness Ordered: 01/07/2024[facility] Work Phone: comment on above:Ordered: 01/07/2024BC W Auto Differential panel - BloodCBC and differential Lab Routine Missed menses Ordered: 12/12/2023[facility] HealthcareComment on above:Ordered: 12/12/2023HLAMYDIA TRACHOMATIS (GENITO/STI)CHLAMYDIA TRACHOMATIS (GENITO/STI) Lab Routine Exposure to STD Ordered: 02/09/2024[facility] HealthcareComment on above:Ordered: 02/09/2024 Hemoglobin A1c/Hemoglobin.total in BloodHemoglobin A1c Lab Routine Missed menses Ordered: 12/12/2023[facility] HealthcareComment on above:Ordered: 12/12/2023Hepatitis B virus surface Ag [Presence] in Serum or Plasma by ImmunoassayHepatitis B surface antigen Lab Routine Missed menses Ordered: 12/12/2023[facility] Comment on above:Ordered: 12/12/2023Hepatitis C virus Ab [Presence] in Serum or Plasma by ImmunoassayHepatitis C antibody Lab Routine Missed menses Ordered: 12/12/2023[facility] HealthcareComment on above:Ordered: 12/12/2023HIV-1/HIV-2 antigen/antibody combination immunoassayHIV-1 and HIV-2 antibodies Lab Routine Missed menses Ordered: 12/12/2023[facility] HealthcareComment on above:Ordered: 12/12/2023Neisseria gonorrhoeae DNA [Presence] in Unspecified specimen by ELINOR with probe detectionNeisseria gonorrhea DNA probe, direct Lab Routine Exposure to STD Ordered: 02/09/2024[facility] HealthcareComment on above:Ordered: 02/09/2024 Reagin Ab [Presence] in Serum by RPRRPR Lab Routine Missed menses Ordered: 12/12/2023[facility] HealthcareComment on above:Ordered: 4Rubella antibody, IgGRubella antibody, IgG Lab Routine Missed menses Ordered: 12/12/2023[facility] HealthcareComment on above:Ordered: 12/12/2023SURESWAB(R) ADVANCED VAGINITIS PLUS, TMASURESWAB(R) ADVANCED VAGINITIS PLUS, TMA Pathology and Cytology Routine Exposure to STD Ordered: 02/09/2024[facility] Work Phone: comment on above:Ordered: 02/09/2024[facility] Immunizations Immunization DateImmunizationNotesCare XvpeisbkUiqahuor09-81-4673zdakc papilloma virus vaccine, quadrivalentCameron Ditty Other [facility] Payers DatePayer CategoryPayerPolicy [id number] [facility] [id number] BCBS [id number] 2022-[facility] [phone] [facility] [id number] [place] [address] [id number]4[id number] [id number] 2.16.840.1.803007.3.579.2.718 [id number] 2.16.840.1.941073.3.579.2.84268-60-5168Xkmeaks0279258 2.16.840.1.814612.3.579.2.81057-75-4625Xtaqnbv3487211 2.16.840.1.944914.3.579.2.59498-10-8808Alxkvqp3977921 2.16.840.1.006332.3.579.2.58742-76-6158Awggotz9259499 2.16.840.1.865414.3.579.2.78077-75-1199Fndedru3527227 2.16.840.1.801215.3.579.2.91655-20-0211Pinxkju0600563 2.16.840.1.636068.3.579.2.23346-44-2207Rwvxrqx8727097 2.16.840.1.994099.3.579.2.25686-29-1229Hqmabwz8701423 2.16.840.1.593363.3.579.2.01335-51-4035Hqlefbr6153128 2.16.840.1.996818.3.579.2.94317-07-6810Bnsitsw5882154 2.16.840.1.963508.3.579.2.65827-35-4131Clglbiy0998085 2.16.840.1.100811.3.579.2.42614-00-4578Cdtmdlu2357986 2.16840.1.225604.3.579.2.05645-27-7510Lkdhjph3181664 2.16840.1.739649.3.579.2.79513-64-0354Rvzdgjn3854526 2.16840.1.412682.3.579.2.05088-77-7020Hzjqrvm1610445 2.16840.1.794044.3.579.2.60846-46-3324Znvydeu9817443 2.0.1.826003.3.579.2.943505-90-2600Dojkxac5569431 2..1.508689.3.579.2.943610-38-4112Jljyttz1726019 2..1.293575.3.579.2.396502-16-3339Hugaedg2242165 2.0.1.394058.3.579.2.442922-00-0944Htqnhqm9721861 2..1.583395.3.579.2.997892-93-0202Qzolahz1394632 2..1.477621.3.579.2.260396-69-2877Iopblai2477324 2.0.1.634411.3.579.2.151708-63-0886Krzisyx1279079 2.0.1.536235.3.579.2.937530-14-6401Wesswwy0018324 2.840.1.799741.3.579.2.290112-56-0191Pewuwtn6775741 2.0.1.066803.3.579.2.053226-06-9863Ymnlkwt9358339 2.16.840.1.095831.3.579.2.472536-24-9216Bnrdbns5757337 2.16.840.1.233927.3.579.2.919463-08-7289Eoprmeb1993934 2.16.840.1.920216.3.579.2.994590-86-8462Rmdvaaf9344091 2.160.1.066490.3.579.2.779867-95-8728Vcxd-abf29-29-8070Rpzpwxu537309603 2.0.4.125165.83257719-04-0651Idlsvzo695751640978 2..9.556106.0950-01-1959 YjixlwhP2FUP186034085-90-5081Gxcvcvd020768111324Povemdo3896410 2.0.1.005296.3.579.2.743QhnnbycR4862103680 d0o42cc2-sg4t-1v41-n15z-40977240uvzmVcmvjwp14064302 2.0.1.235202.3.579.2.531 Social History DateTypeDetailFacilityUnknown if ever smokedAkron [employer] Other Start: 03-27-2023 End: 88-60-3163Tbs Assigned At [facility] [employer] Other Start: 02-22-2021 End: 37-99-7147Vgcjumc smoking status NHISNever smoked tobaccoNOMS Healthcare Start: 88-11-5737Laiwais use and exposureSmokeless tobacco non-userNOMS HealthcareStart: 12-17-2023 End: 68-58-9345Scnaayrph beverage intakeLifetime non-drinker (finding)[facility] HealthcareStart: 03-27-2023 End: 43-50-8535Axqlvlw of Social functionNOMS HealthcareStart: 10-27-2023 PregnancyNOMS HealthcareStart: 65-22-0130Uux assigned at birthNot on fileFitzgibbon HospitalStart: 07-15-2024 End: 16-45-1568IznRooych (finding)[facility] Hospitaltart: 83-60-4797Oum Assigned At BirthFeWinter Haven HospitalNEGATED: Highlighted [facility] Clinical Notes 03-08-2022 to 11-17-2024 Note Date & [id number] Evaluation note* Diagnosis Onset Date Resolution Status Admit Date Anxiety acuteAugust 2024 9:26amEasy bruisingacuteAugust 2024 9:26amHair thinningacuteAugust 2024 9:26amEasy bruisingacuteOctober 2024 10:56amIron deficiency anemiaacuteOctober 2024 10:56amRight upper quadrant painacuteOctober 2024 10:56am [facility] Work Phone: 1(859) 671-884606-04-2025 Evaluation note* Diagnosis Onset Date Resolution Status Admit Date Chronic GERD acuteJune 2024 2:10pmAnxietyacuteAugust 2024 9:26amEasy bruisingacute [place] 2024 9:26amHair thinningacuteAugust 2024 9:26am [facility] Work Phone: 1(391) 824-432603-31-2025 History of Present illness Narrative* Peri Peterson [...] 09/13/2022 Low back pain 09/13/2022 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 Exam conducted with a lpc present. Vitals: Estimated body mass index is [...] of: Asif Bhatt DO documented in this encounterFitzgibbon [id number] History of Present illness Narrative* Vicky Leyva, GAY - 06/07/2024 2:40 PM EST Reason for [...] infection 09/13/2022 Adjustment disorder with depressed mood ([facility]/HCC) 09/13/2022 Allergic rhinitis 09/13/2022 Anxiety 09/13/2022 Arthralgia of multiple joints 09/13/2022 Dysmenorrhea 09/13/2022 Family history of thyroid disease 09/13/2022 Hematochezia 09/13/2022 Low back pain 09/13/2022 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[facility]/HCC) 09/13/2022 Subcutaneous nodule 09/13/2022 Tinea pedis 09/13/2022 25 weeks gestation of 04/05/2024 Second trimester 04/05/2024 Resolved Ambulatory Problems Diagnosis Date Noted No Resolved Ambulatory Problems Past Medical History: Diagnosis Date Depression (CMS/HCC) HISTORY PAST MEDICAL HISTORY SOCIAL HISTORY Past Medical History: Diagnosis Date Anxiety Depression ([facility]) Social History Tobacco Use Smoking status: Never [...] nursing note reviewed. Exam conducted with a lpc present. Vitals: Estimated body mass index is [...] of: Asif Bhatt DO documented in this encounterFitzgibbon [id number] History of Present illness Narrative* Vicky Leyva [...] infection 09/13/2022 Adjustment disorder with depressed mood ([facility]) 09/13/2022 Allergic rhinitis 09/13/2022 Anxiety 09/13/2022 Arthralgia [...] of: Asif Bhatt DO documented in this encounterFitzgibbon [id number] History of Present illness Narrative* JOSIAH Schilling [...] infection 09/13/2022 Adjustment disorder with depressed mood ([facility]/HCC) 09/13/2022 Allergic rhinitis 09/13/2022 Anxiety 09/13/2022 Arthralgia of multiple joints 09/13/2022 Dysmenorrhea 09/13/2022 Family history of thyroid disease 09/13/2022 Hematochezia 09/13/2022 Low back pain 09/13/2022 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[facility]/HCC) 09/13/2022 Subcutaneous nodule 09/13/2022 Tinea pedis 09/13/2022 25 weeks gestation of 04/05/2024 Second trimester 04/05/2024 Resolved Ambulatory Problems Diagnosis Date Noted No Resolved Ambulatory Problems Past Medical History: Diagnosis Date Depression (CMS/HCC) HISTORY PAST MEDICAL HISTORY SOCIAL HISTORY Past Medical History: Diagnosis Date Anxiety Depression ([facility]) Social History Tobacco Use Smoking status: Never [...] behalf of: JOSIAH Schilling documented in this encounterFitzgibbon [id number] History of Present illness Narrative* Carmen Foster, APPLICATIONS DEVELOPER - 04/27/2024 11:20 AM EST Reason for [...] infection 09/13/2022 Adjustment disorder with depressed mood ([facility]CC) 09/13/2022 Allergic rhinitis 09/13/2022 Anxiety 09/13/2022 Arthralgia of multiple joints 09/13/2022 Dysmenorrhea 09/13/2022 Family history of thyroid disease 09/13/2022 Hematochezia 09/13/2022 Low back pain 09/13/2022 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[facility]/HCC) 09/13/2022 Subcutaneous nodule 09/13/2022 Tinea pedis 09/13/2022 25 weeks gestation of 04/05/2024 Second trimester 04/05/2024 Resolved Ambulatory Problems Diagnosis Date Noted No Resolved Ambulatory Problems Past Medical History: Diagnosis Date Depression (CMS/HCC) HISTORY PAST MEDICAL HISTORY SOCIAL HISTORY Past Medical History: Diagnosis Date Anxiety Depression ([facility]) Social History Tobacco Use Smoking status: Never [...] nursing note reviewed. Exam conducted with a lpc present. Vitals: Estimated body mass index is [...] of: Asif Bhatt DO documented in this encounterNOCarondelet [id number] Telephone encounter Note* Telephone Encounter - Alana [...] do not know, but my phone numbers [phone], thank you, bye. I called pt to let her know that I would talk to Dr. Bhatt and see what he recommends. [facility] [id number] Miscellaneous Notes* Telephone Encounter - Alana Mcclendon [...] do not know, but my phone numbers [phone], thank you, conye. I called pt to let her know that I would talk to Dr. Bhatt and see what he recommends. 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[facility]) 09/13/2022 Subcutaneous nodule 09/13/2022 Tinea pedis 09/13/2022 Resolved Ambulatory Problems Diagnosis Date Noted No Resolved Ambulatory Problems Past Medical History: Diagnosis Date Depression ([facility]) HISTORY PAST MEDICAL HISTORY SOCIAL HISTORY Past Medical History: Diagnosis Date Anxiety [place] Social History Tobacco Use Smoking status: Never [...] behalf of: JOSIAH Schilling documented in this encounterFitzgibbon [id number] History of Present illness Narrative* Vicky Leyva [...] infection 09/13/2022 Adjustment disorder with depressed mood ([facility]) 09/13/2022 Allergic rhinitis 09/13/2022 Anxiety 09/13/2022 Arthralgia of multiple joints 09/13/2022 Dysmenorrhea 09/13/2022 Family history of thyroid disease 09/13/2022 Hematochezia 09/13/2022 Low back pain 09/13/2022 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 Exam conducted with a lpc present. Vitals: Estimated body mass index is [...] of: Asif Bhatt DO documented in this encounterFitzgibbon [id number] History of Present illness Narrative* Leah Raman [...] infection 09/13/2022 Adjustment disorder with depressed mood ([facility]CC) 09/13/2022 Allergic rhinitis 09/13/2022 Anxiety 09/13/2022 Arthralgia of multiple joints 09/13/2022 Dysmenorrhea 09/13/2022 Family history of thyroid disease 09/13/2022 Hematochezia 09/13/2022 Low back pain 09/13/2022 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[facility]CC) 09/13/2022 Subcutaneous nodule 09/13/2022 Tinea pedis 09/13/2022 Resolved Ambulatory Problems Diagnosis Date Noted No Resolved Ambulatory Problems Past Medical History: Diagnosis Date Depression ([facility]) HISTORY PAST MEDICAL HISTORY SOCIAL HISTORY Past Medical History: Diagnosis Date Anxiety Depression ([facility]) Social History Tobacco Use Smoking status: Never [...] nursing note reviewed. Exam conducted with a lpc present. 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 Exam conducted with a lpc present. Vitals: Estimated body mass index is [...] or undercooked meat, and stay away from [facility]. Patient hasbeen consulted regarding any further do's and don'ts of . Patient voiced understanding andall questions and concerns were answered. Orders Placed This Encounter Procedures Urine dip Follow Up: Patient is to return in 4 weeks for routine OB appointment. 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 Advised to have both and unity [...] by: Leah Raman MA [facility]* Encounter Date Diagnosis Assessment Notes Treatment Notes Treatment Clinical Notes Mar, GERD (gastroesophageal reflux di sease) (ICD-10 - K21.9) Patient reports that she is doing well on pantoprazole 40 mg daily and will continue therapy Mar,onstipation (ICD-10 - K59.00)Patient reports that she has intermittent constipation Patient reports that she is Patient is advised to take an OTC fiber and will call office if she has no improvement [employer] Other 10-20-2023 Evaluation note* Encounter Date Diagnosis Assessment Notes Treatment Notes Treatment Clinical Notes Jan, Epigastric burning sensation (IC D-10 - R10.13) [employer] Other 12-02-2022 Evaluation note* Encounter Date Diagnosis Assessment Notes Treatment Notes Treatment Clinical Notes Mar, Nausea (ICD-10 - R11.0) Mar,Epigastric burning sensation (ICD-10 - R10.13) Mar,Lower abdominal pain (ICD-10 - R10.30) Mar,loating (ICD-10 - R14.0) Mar,Functional dyspepsia (ICD-10 - K30) Mar,GERD (gastroesophageal reflux disease) (ICD-10 - K21.9)CONTINUE PANTOPRAZOLE 40 MG DAILY CONTINUE LEVSIN NEEDED RTO 1 YR [employer] Other Evaluation note* Diagnosis First trimester state, [...] this encounter [facility]Evaluation noteNo assessment information availableTrihealth [facility] Work Phone: Evaluation note* Diagnosis Onset Date Resolution Status Admit Date Chronic GERD acuteJune 2024 2:10pm [facility] Work Phone: History general Narrative - Reported* Type Description Date Medical History scoliosis Medical Historyhx of monoSurgical HistoryWisdom teeth x4 Vinyl[facility]int [facility] [employer] Other Histpuc general Narrative - Reported* Type Description Date Medical History scoliosis Medical Historyhx of monoSurgical HistoryWisdom teeth [id number] HistoryC section [facility] [employer] Other Hospital Discharge instructionsAmbulatory Orders* Referral to Hematology Time Frame: 01/25/25, Location: None [facility] Work Phone: Reason for referral (narrative)No reason for referral information availableOhiohealth [facility] City [facility] Work Phone: Summary Purpose Family History Relationship Condition Age at Onset Recorded Date/T darrius grandparent Malignant neoplasm of breast Unknown motherColitisUnknown Advance Directives Advance Directive Response Recorded Date/ [...] upper quadrant pain January 25, 2025 10:56am Chief Complaint Admit Date 6 month follow [...] FOR VISIT (unrecogniz ed section and content) ReasonCommentsRoutine VisitReasonCommentsAmenorrheaReasonCommentss/p c- section INFORMATION SOURCE (unrecogn ized section and content) DATE CREATED AUTHOR 07/24/2022 [facility] DATE CREATED AUTHOR AUTHOR'S ORGANIZ ATION 08/08/2022 [facility] DATE CREATED AUTHOR AUTHOR'S ORGANIZ ATION 07/06/2024 [facility] DATE CREATED AUTHOR AUTHOR'S ORGANIZ ATION 08/05/2024 [facility] Care Teams (unrecognized sec tion and content) Team Status: Active Member Role Status Dates Britt Harris APRN PRODUCTION STAGE MANAGER-C Primary Care Provider Active Start: June 21, 2024 JOSIAH Schilling-CAttending ProviderActiveStart: June 21, 2024 Team Status: Active Member Role Status Dates Britt Harris APRN PRODUCTION STAGE MANAGER-C Primary Care Provider Active Start: June 29, 2024 Asifaugusto Bhatt , DOAttending ProviderActiveStart: June 29, 2024 Team Status: Active Member Role Status Dates Britt Harris APRN PRODUCTION STAGE MANAGER-C Primary Care Provider Active Start: June 30, 2024 Asif Nova , DOAttending ProviderActiveStart: June 30, 2024 Team Status: Active Member Role Status Dates Britt Harris APRN PRODUCTION STAGE MANAGER-C Primary Care Provider Active Start: July 01, 2024 Asif Nova , DOAttending ProviderActiveStart: July 01, 2024 Team Status: Active Member Role Status Dates Britt Harris APRN PRODUCTION STAGE MANAGER-C Primary Care Provider Active Start: July 14, 2024 Jennifer Moe DOAttending ProviderActiveStart: July 14, 2024 Team Status: Inactive Member Role Status Dates Jennifer Moe , DO Attending Provider Active Start: July 14, 2024 End: July 14, 2024 Team Status: Active Member Role Status Dates Britt Harris APRN PRODUCTION STAGE MANAGER-C Primary Care Provider Active Start: July 14, 2024 Jeannette Domingo CMAAttending ProviderActiveStart: July 14, 2024 Team Status: Active Member Role Status Dates Britt Harris APRN PRODUCTION STAGE MANAGER-C Primary Care Provider Active Team Status: Inactive Member Role Status Dates Britt Harris APRN PRODUCTION STAGE MANAGER-C Primary Care Provider Active Start: September 08, 2024 End: September 08Dale Kam ProviderActiveStart: September 08, 2024 End: September 08, 2024 Team Status: Inactive Member Role Status Dates Britt Harris APRN PRODUCTION STAGE MANAGER-C Primary Care Provider Active Start: November 17, 2024 End: November 17, 2024Britt Harris APRN PRODUCTION STAGE MANAGER-CAttending ProviderActive Start: November 17, 2024 End: November 17, 2024 Team Status: Active Member Role/Relationship Status Dates Britt Harris APRN PRODUCTION STAGE MANAGER-C Primary Care Provider Active Team Status: Inactive Member Role/Relationship Status Dates Britt Harris APRN PRODUCTION STAGE MANAGER-C Primary Care Provider Active Start: November 17, 2024 End: November 17, 2024Britt Harris APRN PRODUCTION STAGE MANAGER-CAttending ProviderActive Start: November 17, 2024 End: November 17, 2024 Team Status: Active Member Role/Relationship Status Dates Britt Harris APRN PRODUCTION STAGE MANAGER-C Primary Care Provider Active Start: November 19, 2024 Britt Harris APRN PRODUCTION STAGE MANAGER-CAttending ProviderActiveStart: November 19, 2024 Team Status: Active Member Role/Relationship Status Dates Britt Harris APRN PRODUCTION STAGE MANAGER-C Primary Care Provider Active Start: December 062024 Tom Mccoy ProviderActiveStart: December 17, 2024 Team Status: Inactive Member Role/Relationship Status Dates Britt Harris APRN PRODUCTION STAGE MANAGER-C Primary Care Provider Active Start: January End: January 25, 2025Britt Harris APRN PRODUCTION STAGE MANAGER-CAttending ProviderActive Start: January 25, 2025 End: January 25, 2025 Goals (unrecognized section and content) Goals may [...] BE BASED ON THE PRIMARY CLINICAL RECORDS. [facility]. provides no warranty or guarantee of the accuracy or completeness of information in this document.
--- OUTSIDE RECORDS SUMMARY | 2025-01-29 07:48 | XMS_ITS | Patient Health Record ---
Author Organization [facility] [place] Address [address] [place] [address] Care Team Providers Care Machine Chain Maker Name Role Phone None, Unknown or Primary Care Provider Unavailab le Allergies Allergen (clinical drug ingredient) Drug/Non Drug Allergy documented on EMR Reaction Allergy Type Onset Date Status pcn (uncoded)rashAllergyActiveseasonal allergies (uncoded)UnknownAllergyActive Reason For Referral No Information Medications Medication SIG (Take, Route, Frequency, Duration) Notes Start Date End Date Status Sulfamethoxazole-Trimethoprim 200-40 MG/5ML 5 ml Orally BID 11/04/2017Not-TakingZofran 8 MG1 tablet Orally Twice a day; Duration: 5 days 11/13/2017Not-TakingZithromax Z-Fredrick 250 MG2 tablets on the first day, then 1 tablet daily for 4 days Orally Once a day; Duration: 5 day(s)11/13/2017 Not-TakingClindamycin Phosphate 1 %1 application to affected area Externally Once a day09/08/2017ActiveFexofenadine HCl 180 MG1 tablet as needed Orally Once a day; Duration: 30 day(s)09/29/2017ActiveLexapro 10 MG1 tablet Orally Once a day; Duration: 30ActiveBactrim DS 800-160 MG1 tablet Orally Daily09/08/2017 Not-Taking Immunizations Vaccine Route Administration Date Status Comme nts Tdap (Adacel) Unknown 09/08/2014 Administered Social History Tobacco Use: Social History Observation Description Date Details (start date - stop date) Never Smoker NA - NA Tobacco Use/Smoking Question Answer Notes Patient is a nonsmoker Alcohol Screen (Audit-C) Question Answer Notes Did you have a drink containing alcohol in the p ast year? No Hpuemi3DaooryvhsrtdkmSbkimhhh Problems Problem Type SNOMED Code ICD Code Onset Dates Problem Status W/U Status Risk Notes Problem Obesity due to exces s calories (946165977) Other obesity due to excess calories (E66.09) ActiveconfirmedProblemGeneralized anxiety disorder (87107429)CONY (generalized anxiety disorder) (F41.1)ActiveconfirmedProblemChronic fatigue syndrome (04502095)Chronic fatigue (R53.82)ActiveconfirmedProblemBody mass index 30+ - obesity (362096609)Body mass index (BMI) of 31.0-31.9 in adult (Z68.31)Active confirmedProblemDepression (273760344)Other depression (F32.89)Activeconfirmed ProblemPremenstrual tension syndrome (86238562)PMDD (premenstrual dysphoric disorder) (F32.81)Activeconfirmed Plan Of Treatment Next Appt Details Provider Name:Kaylee Lora , 02/08/2025 09:30:00 AM, [address] [place], [address], Insurance Providers Payer Name Payer Address Payer Phone Subscriber Number Group Number Insured Name Patient Relationship to Insured Coverage Start Date Coverage End Date [employer] ACCESS PPO PLUS LOCAL PLAN [address] [place] [address] [id number] Viky Shay - patient is the insured Medical (General) History Medical History History ICD Code acne scoliosisSurgical History Surgery Date(Month/Year) wisdom teeth 2013 Hospitalization History Reason Date(Month/Year) [facility] 11/11/17
== END 2025-01-29 07:46 | disposition home or self-care (01) ==
LOC: US 07:45
PROVIDERS: PCP Nurse Practitioner Family; Visit Provider Nurse Practitioner Family
DX: R10.11 Right upper quadrant pain (principal)
CPT/HCPCS: 76705

== ENCOUNTER 2025-02-13 15:49 | Emergency (ER) | payer BC, SELFPAY ==
--- OUTSIDE RECORDS SUMMARY | 2025-02-08 04:30 | XMS_ITS ---
Author Organization [facility] in [place] Address [address] [place] [address] Care Team Providers Care Integrated Circuit Layout Designer Name Role Phone None, Unknown or Primary Care Provider Unavailab Kaylee Cifuentes Unavailable [phone] REASON FOR VISIT MD New PT Hem Encounters Encounter Location Date Provider Diagnosis [facility] [address] [place] [address] 02/08/2025 Kaylee Lora Plan Of Treatment No Information Progress Notes * Neno ADAMSmaria e JDOB: (29 yo F)Acc No.[id number]:02/08/2025 UNLOCKED PROGRESS NOTE Progress Notes Patient: Will FERNÁNDEZ :?Kaylee Lora M.D.:1995???Age:29 Y ???Sex:FemaleDate:02/08/2025Phone:[phone]:GLENN CELIS [id number]:Unknown or None Subjective: * Chief Complaints: * 1 . New PT Hem. * Medical History: Objective: * Vitals: Assessment: Plan: * Treatment: * * Electronic signature of Kaylee Lora MD, [id number] on 02/13/2025 at 04:17 PM ESTSign off status: PendingVisit Status:?PEN (Pending) * Provider: Natalya Lora M.D. Date: 04/10/2024 Generated for Printing/Faxing/eTransmitting on:?02/13/2025 04:17 PM EST
[2025-02-13 15:55] VITALS: BP 99/67; PULSE 69; TEMP 36.4; O2SAT 99; BMI 30.1
--- NOTE | 2025-02-13 16:12 | XR_ITS ---
[address] [address] Patient Name: CARLOS ADAMS MRN: [id number] date: 1995 Sex: F Assigned Patient Location: ER Current Patient Location: ED.MAIN Accession/Order Number: [id number] Exam Date: 02/13/2025 16:38 Report Date: 02/13/2025 17:09 At the request of: SHERRY CONKLIN DO Procedure: XR chest 2V XR chest 2V 02/13/2025 4:51 PM SIGNS AND SYMPTOMS: Chest pain PROTOCOL: Frontal and lateral graphs of the chest COMPARISON: 07/14/2024 FINDINGS: The trachea is midline. The heart and mediastinal structures are within normal limits. The lung parenchyma is clear. The bony thorax is intact. XR/XR chest 2V IMPRESSION: No acute cardiopulmonary pathology. Impression dictated by: Morgan Salter M.D. 02/13/2025 5:09 PM Dictation Location: [email or web address] Electronically authenticated by: [id number] Y Date: 02/13/2025 17:09
--- NOTE | 2025-02-13 16:13 | ECG_ITS ---
[facility] Test Date: 2025-02-13 Pat Name: CARLOS ADAMS Department: Room: - Gender: Female Tile Erector: : 1995 Requested By: [id number] Order Number: [id number] Reading MD: CRYSTAL TALBERT M.D. Measurements Intervals [place] Rate: 62 P: 65 MO: 180 QRS: 65 QRSD: 78 T: 61 QT: 400 QTc: 405 Interpretive Statements 1100 Sinus rhythm 9110 normal ECG Compared to ECG 07/14/2024 02:09:20 Sinus arrhythmia no longer present Sinus bradycardia no longer present Right-axis deviation no longer present Electronically Signed On 02-13-2025 16:47:22 EST by CRYSTAL TALBERT M.D.
--- OUTSIDE RECORDS SUMMARY | 2025-02-13 16:17 | XMS_ITS | Clinical Summary ---
Author Organization [facility] Healthcare Address [address] [place] [address] Care Team Providers Care Resource Conservation Specialist Name Role Phone Unavailable Primary Care Provider Unavailabl e Allergies Active AllergyReactionsCriticalityNoted WsvzKqxwvreoOxcfpaehv86/30/2023 FjwscoyepznOfxzf75/30/1956PvecmvipusiUaqaXwd99/30/2023 Medications MedicationSigDispense QuantityRefillsLast FilledStart DateEnd DateStatus pantoprazole (ProtoNix) 40 MG EC tablet Take 40 mg by mouth in the morning. Take before meals. Do not crush, chew, or split..Active citalopram (CeleXA) 20 MG tablet Indications:AnxietyTake 1 tablet (20 mg) by mouth Daily 30 tablet 110506Active Active Problems ProblemNoted DateDiagnosed Date25 weeks gestation of ([facility]) 04/05/2024Second trimester ([facility])4Acid lxjioc7109/13/2022 Acne09/13/2022cquired emcgaflig75/09/2023cute upper respiratory infection 09/13/2022djustment disorder with depressed mood09/13/2022llergic rhinitis 09/13/20220399Qbdzhtg49/09/2023rthralgia of multiple ztedjl2609/13/2022ysmenorrhea 09/13/2022Family history of thyroid qsxdrnb7409/13/20227302Kvuzagcazzkc46/09/2023Low back pain09/13/2022Opportunistic mtvwsrx6909/13/2022Subcutaneous lmcsbl6809/13/2022 Tinea pedis09/13/2022 Encounters DateTypeDepartmentCare RyytCkmpkdvunfn36/12/2025Clinisync Result Encounter [facility] External Department Unsolicited Asif Bhatt, 12/15/2024Telephone [facility] [address] [place] [address] [place] [address] Danelle AlanaGAY from Last 3 Months Family History Medical HistoryRelationNameCommentsMental illnessMotherMelanomaNeg HxRelation NameStatusCommentsFatherAliveMotherAlive Social History Tobacco UseTypesPacks/DayYears UsedDateSmoking Tobacco: NeverSmokeless Tobacco: Never Tobacco Cessation:Counseling Given: Not Answered Alcohol UseStandard Drinks/WeekCommentsNever0 (1 standard drink = 0.6 oz pure alcohol)CommentsNoSex and Gender InformationValueDate RecordedSex Assigned at BirthNot on fileLegal GnbWlsvwj94/15/2023 7:14 PM EDTGender Identity Not on fileSexual OrientationNot on file Last Filed Vital Signs Vital SignReadingTime TakenCommentsBlood Srzlzyna937/78007/05/2024 3:29 PM EDT Krezz58455/21/2023 10:31 AM ESTpt c/o ausepaqFtqnnlmzegf83.7 ??C (98 ??F) 03/27/2023 10:31 AM ESTRespiratory Rate--Oxygen Sckvcyvemn11%03/27/2023 10:31 AM ESTInhaled Oxygen Concentration--Vtbmox68.2 kg (187 lb 12.8 oz)07/05/2024 3:29 PM LGIHvfnwq050.7 cm (5' 8 )12/25/2022 10:53 AM EDTBody Mass Index28.55 12/25/2022 10:53 AM EDT Plan of Treatment Not on file Procedures Procedure NamePriorityDate/TimeAssociated DiagnosisCommentsTRANSFERRINRoutine 12/17/2024 10:01 AM EDT [facility] CXXLXWSIWrqkkoa37/12/2025 10:01 AM EDT ALL CBC WITH AUTO NYCOZthuybs92/12/2025 10:01 AM EDT from Last 3 Months Results * TRANSFERRIN (12/17/2024 10:01 AM EDT)ComponentValueRef RangeTest Method Analysis TimePerformed AtPathologist GmevfmrqyXBUSCKPHTIO537613 - 364 mg/dLTBH Comment: Performed at: ??CB - [facility] [address] ??[id number] Supervisor [employer]: Jose Alejandro Matthews PhD, Phone: ??[phone] Specimen (Source)Anatomical Location / LateralityCollection Method / Volume Collection TimeReceived Time12/17/2024 10:01 AM EDT12/17/2024 10:11 AM EDT Narrative [facility] - 12/18/2024 9:09 AM EDT Authorizing ProviderResult TypeResult StatusCorey Nova DOLAB BLOOD ORDERABLES Final ResultPerforming OrganizationAddressCity/State/ZIP CodePhone Number [facility] * [facility] FERRITIN (12/17/2024 10:01 AM EDT)ComponentValueRef RangeTest Method Analysis TimePerformed AtPathologist XpnzwjaieCUUBLDEC52.08.0 - 252.0 ng/mLTBH Specimen (Source)Anatomical Location / LateralityCollection Method / Volume Collection TimeReceived Time12/17/2024 10:01 AM EDT12/17/2024 10:11 AM EDT Narrative [facility] - 12/17/2024 1:08 PM EDT Authorizing ProviderResult TypeResult StatusCorey Nova DOCLINISYNCFinal Result Performing OrganizationAddressCity/State/ZIP CodePhone Number [facility] * ALL CBC WITH AUTO DIFF (12/17/2024 10:01 AM EDT)ComponentValueRef RangeTest MethodAnalysis TimePerformed AtPathologist SignatureTBH WBC5.64.0 - 11.0 10 3/uLTBHTBH RBC4.574.20 - 5.40 10 6/uLTBHTBH HGB12.812.0 - 16.0 g/dLTBHTBH HCT 39.336.0 - 48.0 %TBHTBH MCV86.081.0 - 99.0 fLTBHTBH MCH28.026.7 - 34.0 pgTBH TBH MCHC32.629.9 - 35.2 g/dLTBHTBH RDW13.111.0 - 15.0 %TBHTBH QMK134259 - 450 10 3/uLTBHTBH MPV10.49.5 - 13.5 [...] DOCLINISYNCFinal Result Performing OrganizationAddressCity/State/ZIP CodePhone Number [facility] from Last 3 Months Insurance
--- OUTSIDE RECORDS SUMMARY | 2025-02-13 16:17 | XMS_ITS | Encounter Summary ---
Author Organization [facility] Address [address] [place] [place] [address] Care Team Providers Care Med Asst Name Role Phone Unavailable Primary Care Provider Unavailabl e Encounter Details DateTypeDepartmentCare Team (Latest Contact Info)Fainadhnfdj24/26/2024Clinisync Result Encounter [facility] External Department Unsolicited Eddie Bahtt, DO [address] [facility] [address] [place] [place], [place] [address] Social History Tobacco UseTypesPacks/DayYears UsedDateSmoking Tobacco: NeverSmokeless Tobacco: NeverAlcohol UseStandard Drinks/WeekCommentsNever0 (1 standard drink = 0.6 oz pure alcohol)CommentsYesSex and Gender InformationValueDate RecordedSex Assigned at BirthNot on fileLegal RwaXqucsd12/15/2023 7:14 PM EDTGender Identity Not on fileSexual OrientationNot on filedocumented as of this encounter Plan of Treatment Not on file documented as of this encounter Procedures Procedure NamePriorityDate/TimeAssociated DiagnosisCommentsUS OB ANATOMY 03/02/2024 6:27 AM EST documented in this encounter Results * US OB ANATOMY (03/02/2024 6:27 AM EST)Anatomical RegionLateralityModalityOther Specimen (Source)Anatomical Location / LateralityCollection Method / Volume Collection TimeReceived Time03/02/2024 6:27 AM EST Narrative 03/02/2024 6:29 AM EST [facility] ?[address] ? [place] [address] ? Ultrasound Report ? Signed ? Patient: ANGIE,ALLESSSHEREERIA J ?MR#: [id number] ?? : 1995 ?Acct:[id number] ?? Age/Sex: 28 / F ?ADM Date: 11/25/24 ?? Loc: [facility] ? Attending Dr: Eddie Bhatt D.O. ? Ordering Physician: Eddie Bhatt D.O. ?? Date of Service: 03/01/24 ?? Procedure(s): US OB anatomy ?? Accession Number(s): [id number] ? cc: Eddie Bhatt D.O.; BRAULIO FUENTES ? [facility] ? [address] [facility] ? [place] [address] ? Patient Name: ?? WILL ADAMS ? MRN: [facility]:[id number] ? date: 1995 ?Sex: F ?? Assigned Patient Location: [facility] ?? Current Patient Location: ? Accession/Order Number: [id number] ?? Exam Date: 03/01/2024 ??13:45 ?Report Date: 03/02/2024 ??06:27 ? At the request of: ?? EDDIE ??NOVA ? Procedure: ??US OB anatomy ? EXAMINATION: US OB anatomy, US OB cervical length ? HISTORY: ANATOMY ? COMPARISON: No relevant comparison available. ? TECHNIQUE: Transabdominal sonographic examination was performed for ?? obstetrical ?? and evaluation. ? FINDINGS: ? Number: 1 ?? Heart Rate: 136 bpm ?? Amniotic Fluid Volume: Subjectively normal ?? Placental Location: ANTERIOR with lower margin 7.3 cm from os. ?? Cervix Length: 4.43 cm ; closed. ? ANATOMY: Normal Structures -cerebellum, choroid plexus, cisterna magna, ?? lateral ?? cerebral ventricles, orbits, midline falx, hard palate, four-chamber heart, ?? RVOT, LVOT, stomach, kidneys, bladder, umbilical cord insertion into abdomen, ?? three-vessel cord, cervical spine, thoracic spine, lumbar spine, sacral spine, ? right upper extremity, left upper extremity, right lower extremity, left lower ? extremity. ? SUBOPTIMALLY SEEN: None ?? ABNORMALITIES: None ? BIOMETRY: ?? BPD: 4.85 cm; 20 weeks 5 days; 85.30 % ?? HC: 17.74 cm; 20 weeks 2 days; 66.20 % ?? AC: 15.32 cm; 20 weeks 4 days; 71.50 % ?? FL: 3.72 cm; 21 weeks 6 days; 96.30 % ?? EFW:366.45 g; 97 % ?? FL/AC: 24.28 ?? FL/BPD: 76.70 ?? HC/AC: 1.16 ? GESTATIONAL AGE: ?? Age by EDC: 19 weeks 5 days ?? Age by current US: 20 weeks 6 days ?? ROLANDO by current US: 2024-07-13 ?? ROLANDO by EDC: 2024-07-21 ? US/US OB anatomy ?? IMPRESSION: ? 1. Single live intrauterine with growth detailed above. ? Electronically authenticated by: TREVOR ??CAPO ?? Date: 03/02/2024 ??06:27 ? Dictated By: ?Trevor Guillen M.D. ? Signed By: ?03/02/24628 ? DD/ 0627 ? TD/TT: ? Wire Photo Operator News: Procedure Note Radiology, Radiologist, MD - 03/02/2024 [place] [address] Ultrasound Report Signed Patient: WILL ADAMS R#: [id number] : 1995Acct:[id number] Age/Sex: 28 FADM Date: 03/01/24 Loc: [facility] Attending Dr: Eddie Bhatt D.O. Ordering Physician: Eddie Bhatt D.O. Date of Service: 03/01/24 Procedure(s): US OB anatomy Accession Number(s): [id number] cc: Eddie Bhatt D.O.; BRAULIO FUENTES [place] [id number] Patient Name: WILL ADAMS MRN: [id number] date: 1995 Sex: F Assigned Patient Location: [facility] Current Patient Location: Accession/Order Number: [id number] Exam Date: 03/01/2024 13:45 Report Date: 03/02/2024 [...] Guillen M.D. Signed By:03/02/24628 DD/ 6 TD/TT: Wire Photo Operator News: Authorizing ProviderResult TypeResult StatusCorey Nova DOCLINISYNC IMAGINGFinal Result documented in this encounter Visit Diagnoses Not on filedocumented in this encounter
--- OUTSIDE RECORDS SUMMARY | 2025-02-13 16:17 | XMS_ITS | Patient Health Record ---
Author Organization [facility] Address [address] [place] [address] Care Team Providers Care Long Wall Shear Operator Name Role Phone None, Unknown or Primary Care Provider Unavailab Kaylee Cifuentes Unavailable [phone] Allergies Allergen (clinical drug ingredient) Drug/Non Drug [...] alcohol in the p ast year? No Hfkpra6DjxjyftcphqtcvWvjonqyq Problems Problem Type SNOMED Code ICD Code Onset Dates Problem Status W/U Status Risk Notes Problem Obesity due to exces s calories (868268730) Other obesity due to excess calories (E66.09) ActiveconfirmedProblemGeneralized anxiety disorder (24965292)CONY (generalized anxiety disorder) (F41.1)ActiveconfirmedProblemChronic fatigue syndrome (94560878)Chronic fatigue (R53.82)ActiveconfirmedProblemBody mass index 30+ - obesity (722322492)Body mass index (BMI) of 31.0-31.9 in adult (Z68.31)Active confirmedProblemDepression (329413218)Other depression (F32.89)Activeconfirmed ProblemPremenstrual tension syndrome (79048501)PMDD (premenstrual dysphoric disorder) (F32.81)Activeconfirmed Encounters Encounter Location Date Provider Diagnosis [facility] [address] [place] [address] 02/08/2025 Kaylee Guido Plan Of Treatment No Information Insurance Providers Payer Name Payer Address Payer Phone Subscriber Number Group Number Insured Name Patient Relationship to Insured Coverage Start Date Coverage End Date [employer]M ACCESS PPO PLUS LOCAL PLAN [address] [place] [address] [id number] Viky Shay - patient is the insured Medical (General) History Medical History History ICD Code acne scoliosisSurgical History Surgery Date(Month/Year) wisdom teeth 2014 Hospitalization History Reason Date(Month/Year) [facility] for pain 11/11/17
--- OUTSIDE RECORDS SUMMARY | 2025-02-13 16:17 | XMS_ITS | Encounter Summary ---
Author Organization [facility] Address [address] [place] [address] Care Team Providers Care Process Chemist Name Role Phone Unavailable Primary Care Provider Unavailabl e Encounter Details DateTypeDepartmentCare Team (Latest Contact Info)Amedypvqfol52/26/2024Clinisync Result Encounter [facility] External Department Unsolicited Eddie Bhatt, DO [address] [facility] [address] [place], [place] [address] Social History Tobacco UseTypesPacks/DayYears UsedDateSmoking Tobacco: NeverSmokeless Tobacco: NeverAlcohol UseStandard Drinks/WeekCommentsNever0 (1 standard drink = 0.6 oz pure alcohol)CommentsYesSex and Gender InformationValueDate RecordedSex Assigned at BirthNot on fileLegal BseVnojfo90/15/2023 7:14 PM EDTGender Identity Not on fileSexual OrientationNot on filedocumented as of this encounter Plan of Treatment Not on file documented as of this encounter Procedures Procedure NamePriorityDate/TimeAssociated DiagnosisCommentsUS OB CERVICAL LENGTH 03/02/2024 6:27 AM EST documented in this encounter Results * US OB CERVICAL LENGTH (03/02/2024 6:27 AM EST)Anatomical RegionLaterality ModalityOtherSpecimen (Source)Anatomical Location / LateralityCollection Method / VolumeCollection TimeReceived Time03/02/2024 6:27 AM EST Narrative 03/02/2024 6:29 AM EST [facility] ?[address] ? [place] [address] ? Ultrasound Report ? Signed ? Patient: ANGIE,GABINORIA J ?MR#: [id number] ?? : 1995 ?Acct:[id number] ?? Age/Sex: 28 / F ?ADM Date: 11/25/24 ?? Loc: [facility] ? Attending Dr: Eddie Bhatt D.O. ? Ordering Physician: Eddie Bhatt D.O. ?? Date of Service: 03/01/24 ?? Procedure(s): US OB cervical length ?? Accession Number(s): [id number] ? cc: Eddie Bhatt D.O.; BRAULIO FUENTES ? [facility] ? [address] ? [place] [address] ? Patient Name: ?? WILL ADAMS ? MRN: [facility]:[id number] ? date: 1995 ?Sex: F ?? Assigned Patient Location: [facility] ?? Current Patient Location: ? Accession/Order Number: [id number] ?? Exam Date: 03/01/2024 ??13:45 ?Report Date: 03/02/2024 ??06:27 ? At the request of: ?? EDDIE ??NOVA ? Procedure: ??US OB cervical length ? EXAMINATION: US OB anatomy, US OB [...] ROLANDO by EDC: 2024-07-21 ? US/US OB cervical length ?? IMPRESSION: ? 1. Single live intrauterine with growth detailed above. ? Electronically authenticated by: TREVOR ??CAPO ?? Date: 03/02/2024 ??06:27 ? Dictated By: ?Trevor Guillen M.D. ? Signed By: ?03/02/24628 ? DD/ 0627 ? TD/TT: ? Assistant Production Editor: Procedure Note Radiology, Radiologist, MD - 03/02/2024 [place] [address] Ultrasound Report Signed Patient: WILL ADAMS R#: [id number] : 1995Acct:[id number] Age/Sex: 28 FADM Date: 03/01/24 Loc: [facility] Attending Dr: Eddie Bhatt D.O. Ordering Physician: Eddie Bhatt D.O. Date of Service: 03/01/24 Procedure(s): US OB cervical length Accession Number(s): [id number] cc: Eddie Bhatt D.O.; BRAULIO FUENTES [address] [address] Patient Name: WILL ADAMS MRN: [id number] date: 1995 Sex: F Assigned Patient Location: [facility] Current Patient Location: Accession/Order Number: [id number] Exam Date: 03/01/2024 13:45 Report Date: 03/02/2024 [...] Guillen M.D. Signed By:03/02/24628 DD/ 6 TD/TT: Assistant Production Editor: Authorizing ProviderResult TypeResult StatusCorey Nova DOCLINISYNC IMAGINGFinal Result documented in this encounter Visit Diagnoses Not on filedocumented in this encounter
--- OUTSIDE RECORDS SUMMARY | 2025-02-13 16:17 | XMS_ITS | Encounter Summary ---
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 Name Role Phone Unavailable Primary Care Provider Unavailabl e Encounter Details DateTypeDepartmentCare Team (Latest Contact Info)Jrrwfpmotpw64/06/2024Clinisync Result Encounter [facility] External Department Unsolicited Eddie Bhatt, DO [address] [facility] [address] [place], [place] [address] Social History Tobacco UseTypesPacks/DayYears UsedDateSmoking Tobacco: NeverSmokeless Tobacco: NeverAlcohol UseStandard Drinks/WeekCommentsNever0 (1 standard drink = 0.6 oz pure alcohol)CommentsYesSex and Gender InformationValueDate RecordedSex Assigned at BirthNot on fileLegal IkhMvobqm33/15/2023 7:14 PM EDTGender Identity Not on fileSexual OrientationNot on filedocumented as of this encounter Plan of Treatment Not on file documented as of this encounter Procedures Procedure NamePriorityDate/TimeAssociated DiagnosisCommentsUS OB TRANSVAGINAL 12/12/2023 11:37 AM EDT documented in this encounter Results * US OB TRANSVAGINAL (12/12/2023 11:37 AM EDT)Anatomical RegionLaterality ModalityOtherSpecimen (Source)Anatomical Location / LateralityCollection Method / VolumeCollection TimeReceived Time12/12/2023 11:37 AM EDT Narrative 12/12/2023 11:39 AM EDT [facility] ?[address] ? [place] [address] ? Ultrasound Report ? Signed ? Patient: ANGIE,ALLESSSHEREERIA J ?MR#: [id number] ?? : 1995 ?Acct:[id number] ?? Age/Sex: 28 / F ?ADM Date: 09//24 ?? Loc: [facility] ? Attending Dr: Eddie Bhatt D.O. ? Ordering Physician: Eddie Bhatt D.O. ?? Date of Service: 12/12/23 ?? Procedure(s): US OB transvaginal ?? Accession Number(s): [id number] ? cc: Eddie Bhatt D.O.; Physician,Non-Staff M.D. ? [facility] ? [address] ? [place] [address] ? Patient Name: ?? WILL Amaya ANGIE ? MRN: [facility]:[id number] ? date: 1995 ?Sex: F ?? Assigned Patient Location: [facility] ?? Current Patient Location: [facility] ?? Accession/Order Number: [id number] ?? Exam Date: 12/12/2023 ??08:34 ?Report Date: 12/12/2023 ??11:37 ? At the request of: ?? EDDIE ??NOVA ? Procedure: ??US OB transvaginal ? EXAMINATION: US OB transvaginal ? HISTORY: MISSED MENSES ? COMPARISON: No relevant comparison available. ? FINDINGS: ? GESTATIONAL SAC: Present and normal appearing. ?? YOLK SAC: Present and normal appearing. ?? POLE: Present and normal appearing. ?? CARDIAC: Present. ? UTERUS: Normal size and appearance. ?? OVARIES: Right: Normal. Left: Normal. ?? CERVIX: 3.6 cm in length and closed. ?? CUL-DE-SAC: Normal. ?? OTHER: None. ? AGE BY LMP: 8 weeks 4 days ?? ROLANDO BY LMP: 07/19/2024 ?? AGE BY US CRL: 8 weeks 4 days ?? ROLANDO BY US CRL: 07/19/2024 ? US/US OB transvaginal ?? IMPRESSION: ? 1. Single live intrauterine . ? Electronically authenticated by: TREVOR ??CAPO ?? Date: 12/12/2023 ??11:37 ? Dictated By: ?Trevor Guillen M.D. ? Signed By: ?12/12/23 1139 ? DD/ 1137 ? TD/TT: ? Claims Configuration Analyst: Procedure Note Radiology, Radiologist, MD - 12/12/2023 [place] [address] Ultrasound Report Signed Patient: WILL ADAMS R#: [id number] : 1995Acct:[id number] Age/Sex: 28 / FADM Date: 12/12/23 Loc: [facility] Attending Dr: Eddie Bhatt D.O. Ordering Physician: Eddie Bhatt D.O. Date of Service: 12/12/23 Procedure(s): US OB transvaginal Accession Number(s): [id number] cc: Eddie Bhatt D.O.; Physician,Non-Staff [place] [address] Patient Name: WILL ADAMS MRN: [id number] date: 1995 Sex: F Assigned Patient Location: [facility] Current Patient Location: [facility] Accession/Order Number: [id number] Exam Date: 12/12/2023 08:34 Report Date: 12/12/2023 [...] M.D. Signed By:12/12/23 1139 DD/ 1137 TD/TT: Claims Configuration Analyst: Authorizing ProviderResult TypeResult StatusCorey Nova DOCLINISYNC IMAGINGFinal Result documented in this encounter Visit Diagnoses Not on filedocumented in this encounter
--- OUTSIDE RECORDS SUMMARY | 2025-02-13 16:17 | XMS_ITS | CCD ---
Author Organization [facility] Care Team Providers Care Karate Instructor Name Role Phone Ben Rose Unavailable Mikael LIGHTING SPECIALIST-C, Angeles A Admitting Unavailable Mikael LIGHTING SPECIALIST-C, Angeles A Attending Unavailable Mikael LIGHTING SPECIALIST-C, Angeles A Primary Care Unavailable Mikael LIGHTING SPECIALIST-C, Angeles A Attending Unavailable Mikael LIGHTING SPECIALIST-C, Angeles A Primary Care Unavailable NOVA [...] Unavailable ONVA ., DR MORGAN Consulting Unavailable NOVA ., [...] Unavailable Marker , Jennifer Wilcox Attending Provider [phone] MarkerJennifer Attending Unavailable Marker, Jennifer Wilcox Admitting Unavailable Britt Harris APRN Primary Care Provider Ben Rose MD Attending Provider Britt Harris APRN Attending Provider [phone] SaritaacheBritt jennings APRN Primary Care Provider Asif Bhatt DO Attending Provider Allergies Allergy ClassificationReported Allergen(s)Allergy TypeDate of OnsetReaction(s) Facility (3 sources)Penicillin GDrug [facility]ergyUnknoB[facility] [place] Other (1 source)busPIRone; Translations: [buspirone hcl][facility] Rep[facility] (1 source)Coconut extract; Translations: [coconut]Drug [facility] Repository (20 sources)Penicillins; Translations: [penicillins]Propensity to adverse reactions to drug (disorder)14-82-4311[facility] Repository (1 source)AmoxicillinDrug [facility]ergy[facility] Rep[facility] (1 source)PenicillinDrug [facility]ergyMer[facility] Repository (20 sources)busPIRoneDrug Ewzobpu51-41-3099[facility] Work Phone: (20 sources)MinocyclineDrug Yqtgifa11-47-3725ZrvpdNTSO Healthcare Medications Current Medications MedicationDrug Class(es)DatesSig (Normalized)Sig (Original)azithromycin 250 mg oral tablet (20 sources)Macrolide AntimicrobialStart: 03-27-2023 End: 40-31-2817tmssnjidwizm (Zithromax Z-Fredrick) 250 MG tablet Indications: COVID- 19 Take as directed 6 tablet 03/27/2023 05/11/2024 DiscontinuedCetirizine (2 sources)Histamine-1 Receptor AntagonistZyrTEC Allergy Activecitalopram 20 mg oral tablet (20 sources)Serotonin Reuptake InhibitorStart: 05-24-2024 End: 82-72-1660kiqh 1 tablet by mouth at bedtimecitalopram (CeleXA) 10 MG tablet Indications: Anxiety Take 1 tablet (10 mg) by mouth at bedtime 30 tablet 11 05/24/2024 07/05/2024 DiscontinuedStart: 06-11-2023 End: 83-85-5909ogza 1 tablet by mouth once dailyCitalopram 20 mg tablet Discontinued 20 MG PO Daily August 06, 2023 12:00am January 30, 2024 9:06am esomeprazole 40 mg delayed release oral capsule (20 sources)Proton Pump InhibitorStart: 56-63-8453Deibrfdanbbq Magnesium 40 mg capsule,delayed release(DR/EC) Active 40 MG PO Twice daily 60 30 11 September 08, 2024 12:00am Take 1 capsule orally 30 minutes before morning meal and 30 minutes before evening meal. Complies with drug therapyStart: 04-15-2024 End: 23-54-4479Ztxhuuphgltr Magnesium 40 mg capsule,delayed release(DR/EC) Discontinued 40 MG PO Daily 30 30 August 12, 2024 2:14pm November 17, 2024 9:34am Take 1 capsule orally 30 minutes before morning meal.Start: 02-02-2024 End: 54-86-3832mhic 1 capsule by mouth once dailyEsomeprazole Magnesium 40 mg capsule,delayed release(DR/EC) Discontinued 40 MG PO Daily 30 30 February 02, 2024 12:00am March 25, 2024 2:17pmStart: 10-29-2023 End: 71-18-6496dxts 1 capsule by mouth once dailyEsomeprazole Magnesium 40 mg capsule,delayed release(DR/EC) Discontinued 40 MG PO Daily 30 30 October 29, 2023 12:00am January 30, 2024 9:06amhyoscyamine sulfate 0.125 mg sublingual tablet (2 sources)Start: 80-22-3602iowj 1 tablet under the tongue four times daily as neededHyoscyamine Sulfate 0.125 MG 1 tablet under the tongue and allow to dissolve as needed Sublingual FOUR TIMES DAILY NEEDED for 30 days PRN Nov, Activeloratadine 10 mg oral tablet (5 sources)Start: 19-87-8509ioes 1 tablet by mouth once dailyLoratadine (Claritin) 10 mg tablet Active 10 MG PO Daily August 05, 2023 12:00am Complies with drug therapytake 1 tablet by mouth every twenty-four hoursClaritin 10 MG 1 tablet Orally Once a day Activemeclizine hydrochloride 25 mg oral tablet (8 sources)AntiemeticStart: 01-30-2024 End: 56-71-2869lokm 1 tablet by mouth three times daily as needed for dizziness Meclizine 25 mg tablet Active 25 MG PO Three times daily as needed for dizziness 30 0 January 30, 2024 9:25am Vertigo Dizziness and giddiness Complies with drug therapymethylPREDNISolone (20 sources)CorticosteroidStart: 03-27-2023 End: 91-03-9415ujenqpQDBKNFZfhmcy (Medrol Dospak) 4 MG tablets Indications: COVID-19 As directed 21 tablet 03/27/2023 05/11/2024 DiscontinuedStart: 58-03-2897gkusczYUELYFXywzpo (Medrol Dospak) 4 MG tablets Indications: COVID-19 As directed 21 tablet 03/27/2023 ActiveMultivitamin With Minerals (Multiple Vitamin-Minerals) tablet (1 source)Start: 63-64-2820tglq 1 tablet by mouth once dailyMultivitamin With Minerals (Multiple Vitamin-Minerals) tablet Active 1 TAB PO Daily January 25, 2025 12:00am Complies with drug therapynitrofurantoin, macrocrystals 25 mg / nitrofurantoin, monohydrate 75 mg oral capsule (3 sources)Nitrofuran AntibacterialStart: 12-12-2023 End: 79-34-5711cbon 1 capsule by mouth in the morningnitrofurantoin, macrocrystal-monohydrate, (Macrobid) 100 MG capsule Indications: UTI symptoms Take 1 capsule (100 mg) by mouth in the morning and 1 capsule (100 mg) before bedtime. Do all this for 7 days. 14 capsule 12/12/2023 12/19/2023 Active Tygfiv99-Texp Fum-Folic Ac-Om3 (One Daily ) 28-800-440 mg-mcg-mg combo pack (2 sources)Start: 16-05-7239Jqwwvd00-Iron Fum-Folic Ac-Om3 (One Daily ) 28-800-440 mg-mcg-mg combo pack Active PKG PO January 30, 2024 12:00am Probiotic (3 sources)Probiotic EVERY OTHER MONTH Activepromethazine hydrochloride 12.5 mg oral tablet (20 sources)PhenothiazineStart: 11-24-2023 End: 00-28-8802ziov 1 tablet by mouth every six hours [...] release oral tablet (20 sources)AminoketoneStart: 04-12-2024 End: 67-76-2028uysp 1 tablet by mouth twice dailyBupropion Hcl 150 mg tablet extended release 24 hr Discontinued MG PO Twice daily April 121:42am September 08, 2024 2:15pmStart: 03-25-2024 End: 10-55-9296vhkc 1 tablet by mouth every twenty-four hoursBupropion Hcl 150 mg tablet extended release 24 hr Discontinued MG PO March 25, 2024 1:00am April 12, 2024 11:42amStart: 03-25-2024 End: 11-34-1586kfop 1 tablet by mouth every twenty-four hoursBupropion Hcl 150 mg tablet extended release 24 hr Discontinued MG PO March 25, 2024 1:00am April 12, 2024 11:42amStart: 03-15-2024 End: 83-97-4502nfnh 1 tablet by mouth every twelve hours in the morningbuPROPion SR (Wellbutrin SR) 150 MG 12 hr tablet Indications: Anxiety Take 1 tablet (150 mg) by mouth in the morning and 1 tablet (150 mg) before bedtime. Do not crush, chew, or split.. 180 tablet 1 03/15/2024 07/05/2024 DiscontinuedStart: 02-18-2024 End: 73-27-4756nlyr 1 tablet by mouth once dailybuPROPion XL (Wellbutrin XL) 150 MG 24 hr tablet Indications: Anxiety, generalized (CMS/HCC) Take 1tablet (150 mg) by mouth Daily Do not crush, chew, or split. 30 tablet 11 02/18/2024 02/17/2025 ActivebusPIRone hydrochloride 5 mg oral tablet (2 sources)Start: 11-17-2024 End: 70-02-2681piqx 1 tablet by mouth twice dailyBuspirone 5 mg tablet Discontinued 5 MG PO Twice daily 60 30 0 November 17, 2024 12:00am January 25, 2025 11:01am Anxiety Anxiety disorder, unspecifieddocusate sodium 100 mg oral capsule (20 sources)Start: 01-07-2024 End: 22-30-0823eyuy 1 capsule by mouth twice daily as needed for constipation docusate sodium (Colace) 100 MG capsule Indications: Constipation during in first trimester Take 1 capsule (100 mg) by mouth 2 (two) times a day as needed for constipation 60 capsule 5 01/07/2024 06/07/2024 Discontinued hydrOXYzine hydrochloride 10 mg oral tablet (6 sources)AntihistamineStart: 06-07-2024 End: 85-17-8050fpjv 1 tablet by mouth every six hours as needed for anxiety and anxietyhydrOXYzine HCl (Atarax) 10 MG tablet Indications: Anxiety Take 1 tablet (10 mg) by mouth every 6 (six) hours if needed for itching for up to 30 doses 30 tablet 06/07/2024 07/05/2024 DiscontinuedLactobacillus Combination No.4 (Probiotic) 3 billion cell Capsule (4 sources)Start: 02-22-2021 End: 76-15-1810atgr 3 capsules by mouth once dailyLactobacillus Combination No.4 (Probiotic) 3 billion cell Capsule Discontinued 3000 MMU CELLS PO Daily February 22, 2021 1:00am January 30, 2024 9:09ammetoclopramide 10 mg oral tablet (20 sources)Dopamine-2 Receptor AntagonistStart: 04-14-2024 End: 70-31-2872tmcrqviqqblydl (Reglan) 10 MG tablet Indications: Heartburn during in second trimester Take 1 tablet (10 mg) by mouth in the morning and 1 tablet (10 mg) at noon and 1 tablet (10 mg) in theevening. Take before meals. Take 1 tablet by mouth 30 minutes prior to meals 3 times daily as needed for nausea.. 90 tablet 2 05/05/2024 07/05/2024 DiscontinuedStart: 12-11-2023 End: 78-54-6775Xvnxpoyxvpaehx Hcl 10 mg tablet Discontinued 10 MG PO as needed September 08, 2024 2:15pm January 11:02amMisc. Devices (Medela Double Breast Pump) misc (20 sources)Start: 11-15-2022 End: 83-45-2076Rewo. Devices (Medela Double Breast Pump) [facility] [place]: Mother currently breast-feeding 1 Device if needed (Use for based on desired schedule). 1 each 11/15/2022 04/27/2024 Discontinued (Other)Start: 90-63-0969Mzsb. Devices (Medela Double Breast Pump) [facility] [place]ications: Mother currently breast-feeding 1 Device if needed (Use for based on desired schedule). 1 each 11/15/2022 Activeomeprazole 40 mg delayed release oral capsule (20 sources)Proton Pump InhibitorStart: 03-25-2024 End: 72-17-8587pugf 1 capsule by mouth once dailyOmeprazole 40 mg capsule,delayed release(DR/EC) Discontinued 40 MG PO Daily 30 March 1:00am August 12, 2024 2:13pmStart: 02-02-2024 End: 61-83-3280Mvtibwjsys 20 mg capsule,delayed release(DR/EC) Discontinued 20 MG PO March 25, 2024 1:00am April 12, 2024 11:41amStart: 01-30-2024 End: 27-65-3260zvbz 1 capsule by mouth once dailyOmeprazole 40 mg capsule,delayed release(DR/EC) Discontinued 40 MG PO Daily January 30, 2024 12:00am February 02, 2024 10:05amStart: 08-28-2023 End: 45-19-3436xupi 1 capsule by mouth once dailyOmeprazole 40 mg capsule,delayed release(DR/EC) Discontinued 40 MG PO Daily 30 30 August 28, 2023 12:00am October 29, 2023 1:39pm 30 minutes prior to eatingOmeprazole 20 mg capsule,delayed release(DR/EC) (2 sources)Start: 03-25-2024 End: 00-12-0592Qkxxzjoysr 20 mg capsule,delayed release(DR/EC) Discontinued 20 MG PO March 25, 2024 1:00am April 12, 2024 11:41amondansetron 4 mg disintegrating oral tablet (20 sources)Serotonin-3 Receptor AntagonistStart: 04-19-2024 End: 30-02-3678qcgq 1 tablet by mouth every eight hours as needed for nausea ondansetron ODT (Zofran-ODT) 4 MG disintegrating tablet Take 4 mg by mouth every 8 (eight) hours ifneeded for nausea 04/19/2024 07/05/2024 DiscontinuedStart: 01-26-2024 End: 28-03-6026lbcd 1 tablet by mouth every six hours for nauseaondansetron ODT (Zofran-ODT) 4 MG disintegrating tablet Indications: Nausea and vomiting during Take 1 tablet (4 mg) by mouth every 6 (six) hours if needed for nausea or vomiting 30 tablet 11 01/26/2024 02/25/2024 ExpiredStart: 11-17-2023 End: 71-48-0077zgui 1 tablet by mouth every six hours for nauseaondansetron ODT (Zofran-ODT) 4 MG disintegrating tablet Indications: Nausea and vomiting in Take 1 tablet (4 mg) by mouth every 6 (six) hours if needed for nausea or vomiting 30 tablet 3 11/17/2023 12/17/2023 Activepantoprazole 40 mg delayed release oral tablet (20 sources)Proton Pump InhibitorStart: 04-19-2024 End: 27-96-4968Dfqywaotpkyb (Protonix) 40 mg tablet,delayed release (DR/EC) Discontinued 40 MG PO Daily 30 06 03April 19, 2024 1:00am August 12, 2024 2:13pm Take 1 tablet orally 30 minutes before morning meal.Start: 02-28-2021 End: 70-82-5933qfkq 1 tablet by mouth once dailyPantoprazole 40 mg tablet,delayed release (DR/EC) Discontinued 40 MG PO Daily August 05, 2023 12:00am August 05, 2023 11:18amPrenatal 75-Iron Wve-Prapd-Ij7 (One Daily ) 28-800-440 mg-mcg-mg combo pack (2 sources)Start: 01-30-2024 End: 96-58-7468Dsswaapm 75-Iron Zst-Nqbus-Bs0 (One Daily ) 28-800-440 mg-mcg-mg combo pack Discontinued PKG PO January 30, 2024 12:00am January 25, 2025 11:02amStart: 02-50-1756Rjmefupo 75-Iron Gcx-Krxct-Pn9 (One Daily ) 28-800-440 mg-mcg-mg combo pack Active PKG PO January 30, 2024 12:00am Complies with drug therapyVitamin D (4 sources)Start: 08-06-2023 End: 45-37-9116rrlkzce d Discontinued PO August 06, 2023 12:00am January 30, 2024 9:09amWomens Multi (4 sources)Start: 08-06-2023 End: 42-85-8312Jvqmmn Multi Discontinued PO August 06, 2023 12:00am January 30, 2024 9:09am Problems Active Problems Problem ClassificationProblemDateDocumented DateEpisodic/ChronicAbdominal pain (9 sources)Epigastric pain; Translations: [Lower abdominal pain, unspecified] EpisodicComment on above:Problem List clean-up per request of Phys. EHR Cmte Adjustment disorders (20 sources)Adjustment disorder with depressed mood; Translations: [Adjustment disorder with depressed mood]Onset: 496537-26-4424SlmktakKryxmgl disorders (20 sources)Anxiety; Translations: [Anxiety disorder, unspecified]Onset: 998786-32-6534OzeydefQjoulemkfkr and hemorrhagic disorders (8 sources)Easy bruising; Translations: [Spontaneous ecchymoses]08-06-2023 EpisodicConditions associated with dizziness or vertigo (11 sources)Dizziness and giddiness; Translations: [Dizziness]Onset: 04-26-2022 EpisodicDeficiency and other anemia (3 sources)Iron deficiency anemia; Translations: [Iron deficiency anemia, unspecified]EpisodicDeficiency and other anemia (2 sources)Deficiency and other anemiaEsophageal disorders (20 sources)Gastroesophageal reflux disease; Translations: [Gastro-esophageal reflux disease without esophagitis]Onset: 22-81-7140GhwceflFnftzdz on above: Problem List clean-up per request of Phys. EHR CmteGastritis and duodenitis (7 sources)Gastritis; Translations: [Gastritis, unspecified, without bleeding] 02-21-9978PcnrnjdnFmozthrr; including migraine (3 sources)Tension-type headache; Translations: [Tension-type headache, unspecified, not intractable]ChronicHemorrhage during ; abruptio placenta; placenta previa (1 source)Low lying placenta NOS or without hemorrhage, second trimester; Translations: [LOW LYING PL NOS W/OHEMORR 2ND TRI]Onset: 49-14-5005Xeasxvyj Immunizations and screening for infectious disease (4 sources)Encounter for screening for infections with a predominantly sexual mode of transmission; Translations: [Encounter for screening for human papillomavirus (HPV)]Onset: 772050-24-4536TvpyutaaDrrjfdw and fatigue (4 sources)Fatigue; Translations: [Other fatigue]04-75-2199KbwbrpkpXtjxyqhav disorders (20 sources)Irregular menstruation, unspecified; Translations: [Dysmenorrhea, unspecified]Onset: 97-88-3560SspralrGceqtm and vomiting (1 source)NauseaEpisodicNonspecific chest pain (4 sources)Atypical chest pain; Translations: [Other chest pain]04-12-2024 EpisodicNutritional deficiencies (4 sources)Vitamin D deficiency; Translations: [Vitamin D deficiency, unspecified]97-09-2336XusclexOqhsm acquired deformities (4 sources)Scoliosis, unspecified; Translations: [SCOLIOSIS UNSPECIFIED]Onset: 25-98-1439ZazzskwQewil acquired deformities (20 sources)Acquired scoliosis; Translations: [Scoliosis, unspecified]Onset: 961556-00-5577DsfbeqsUftsr complications of (1 source)Other specified related conditions, second trimester; Translations: [OTH SPEC PREG RELATED COND 2ND TRI]Onset: 89-50-0272WceryqswTwbvl complications of (2 sources)Vomiting of , unspecified; Translations: [Unspecified vomiting of , unspecified as to episode of care or not applicable] 64-66-9062AueylybuCsgkv complications of (2 sources)Diseases of the digestive system complicating , first trimester; Translations: [Other current conditions classifiable elsewhere of mother, antepartum condition or complication]98-23-7584YspynyriWdany complications of (2 sources)Alpha-fetoprotein level - finding; Translations: [Abnormal hematological finding on screening of mother]23-67-6231KflfncwrVvzmt complications of (2 sources) size does not accord with dates; Translations: [Uterine size- date discrepancy, unspecified trimester]90-06-1959SetrvltjBwsjt disorders of stomach and duodenum (3 sources)Nonulcer dyspepsia; Translations: [Functional dyspepsia]EpisodicOther disorders of stomach and duodenum (1 source)Functional dyspepsiaEpisodicOther disorders of stomach and duodenum (4 sources)Disorder of function of stomach; Translations: [Disease of stomach and duodenum, unspecified]77-56-6422WumolpeaWajmweo on above:Problem List clean- up per request of Phys. EHR CmteOther female genital disorders (4 sources)Other specified noninflammatory disorders of vagina; Translations: [OTH SPEC NONINFLAMMATORY D/O VAGINA]Onset: 60-79-2351YsejnxgtJlkmo gastrointestinal disorders (1 source)Abdominal distension (gaseous)EpisodicOther gastrointestinal disorders (5 sources)Constipation; Translations: [Constipation, unspecified]03-25-2024 EpisodicOther gastrointestinal disorders (1 source)Constipation, unspecifiedEpisodicOther gastrointestinal disorders (4 sources)Diarrhea; Translations: [Diarrhea, unspecified]48-95-6007Akhtdonq Comment on above:Problem List clean-up per request of Phys. EHR CmteOther screening for suspected conditions (not mental disorders or infectious disease) (20 sources)Encounter for screening for diabetes mellitus; Translations: [Encounter for screening, unspecified]Onset: 67-17-1992DyqpygpcBsqut skin disorders (4 sources)Loss of hair; Translations: [Nonscarring hair loss, unspecified] 06-35-1654EzavjcpbUznof upper respiratory disease (20 sources)Allergic rhinitis; Translations: [Allergic rhinitis, unspecified] Onset: 382215-59-3322HvbskgmQedwzfsc codes; unclassified (1 source)21 weeks gestation of ; Translations: [21 WEEKS GESTATION OF ]Onset: 29-92-0517LxqjwejnGdumtxan codes; unclassified (1 source)16 weeks gestation of ; Translations: [16 WEEKS GESTATION OF ]Onset: 27-64-7607VmxverwyDvbnwcgs codes; unclassified (2 sources)Gestation period, 12 weeks; Translations: [12 weeks gestation of ]11-34-9501FmqtodyhNnoosqbu codes; unclassified (2 sources)Gestation period, 17 weeks; Translations: [17 weeks gestation of ]04-30-8504DddmidpaAnusranx codes; unclassified (2 sources)Gestation period, 21 weeks; Translations: [21 weeks gestation of ]47-42-7910FoqmcmnvBagboxpc codes; unclassified (2 sources)Gestation period, 28 weeks; Translations: [28 weeks gestation of ]72-81-3140QybukjosYfdidsuu codes; unclassified (2 sources)Gestation period, 30 weeks; Translations: [30 weeks gestation of ]57-93-4223UjklgjpaPqkibbbj codes; unclassified (2 sources)Gestation period, 32 weeks; Translations: [32 weeks gestation of ]07-93-9972DemkhjwnBcnepies codes; unclassified (2 sources)Gestation period, 34 weeks; Translations: [34 weeks gestation of ]96-81-1322DrmizttgJiuvbwty codes; unclassified (4 sources)Gestation period, 26 weeks; Translations: [26 weeks gestation of ]22-75-5908MsxtwemaWfjkwni (1 source)Syncope and collapse; Translations: [SYNCOPE AND COLLAPSE]Onset: 31-92-2215PukqqmlbMoooednwktle (1 source)LOW BACK PAIN, UNSPECIFIED; Translations: [LOW BACK PAIN, UNSPECIFIED] Onset: 11-12-2021 Past or Other Problems Problem ClassificationProblemDateDocumented DateEpisodic/ChronicGastrointestinal hemorrhage (20 sources)Blood-tinged feces; Translations: [Melena]Onset: 09-13-2022 90-97-0894HmpftcwlYatohgu (20 sources)Opportunistic mycosis; Translations: [Other specified mycoses]Onset: 006393-62-8007KrncvfbgDicat connective tissue disease (1 source)Pain in right leg; Translations: [PAIN IN RIGHT LEG]Onset: 11-12-2021 EpisodicOther connective tissue disease (1 source)Abnormal posture; Translations: [ABNORMAL POSTURE]Onset: 11-15-2021 EpisodicOther non-traumatic joint disorders (20 sources)Multiple joint pain; Translations: [Pain in unspecified joint]Onset: 313736-25-9284XsulypwqBjwbt and delivery including normal (20 sources)Encounter for supervision of normal , unspecified, unspecified trimester; Translations: [Encounter for supervision of normal first , first trimester]Onset: 46-21-3846NwaxfmdiRwxny skin disorders (20 sources)Acne; Translations: [Acne, unspecified]Onset: EpisodicOther skin disorders (20 sources)Subcutaneous nodule; Translations: [Localized swelling, mass and lump, unspecified]Onset: 525966-20-9213MrzzbeyvSpfhh upper respiratory infections (20 sources)Acute upper respiratory infection; Translations: [Acute upper respiratory infection, unspecified]Onset: 800896-09-8068LgpsuslmXxlnyoq cyst (1 source)Other ovarian cyst, right side; Translations: [OTHER OVARIAN CYST RIGHT SIDE]Onset: 27-53-1698DdqixbwxXfvpskmr codes; unclassified (1 source)9 weeks gestation of ; Translations: [9 WEEKS GESTATION OF ]Onset: 76-07-0825AhedlggqUqalahdh codes; unclassified (20 sources)FH: Thyroid disorder; Translations: [Family history of other endocrine, nutritional and metabolic diseases]Onset: EpisodicResidual codes; unclassified (20 sources)Gestation period, 25 weeks; Translations: [25 weeks gestation of ]Onset: 416513-55-7740FxhcirphPskioqxyrjy; intervertebral disc disorders; other back problems (20 sources)Low back pain; Translations: [Low back pain]Onset: 09-13-2022 77-72-2491Wsuyeejs Results Test NameValueInterpretationReference RangeFacilityALL CBC WITH AUTO DIFFon 19-34-9569QPGPFMXFS ABSOLUTE WITW3QMFP HealthcareBasophils/100 WBC (Bld)0.5 %0.2 - 2.0 %[facility] HealthcareEosinophils/100 WBC (Bld)2 %0.9 - 7.0 %[facility] Erythrocyte distribution width (RBC) [Ratio]13.1 %11.0 - 15.0 %[facility] Hematocrit (Bld) [Volume fraction]39.3 %36.0 - 48.0 %[facility] HospitalHemoglobin (Bld) [Mass/Vol]12.8 g/dL12.0 - 16.0 g/dLFitzgibbon HospitalIMMATURE GRANULOCYTES ABS AUTO0.01NOParkland Health CenterImmature granulocytes/100 WBC (Bld)0.2 %0.0 - 0.5 % [facility] HospitalLYMPHOCYTES ABSOLUTE AUTO1.9NOParkland Health CenterLymphocytes/100 WBC (Bld)33.7 %20.5 - 60.0 %[facility]onH (RBC) [Entitic mass]28 pg26.7 - 34.0 pgFitzgibbon HospitalMCHC (RBC) [Mass/Vol]32.6 g/dL29.9 - 35.2 g/dLFitzgibbon Hospital MCV (RBC) [Entitic vol]86 fL81.0 - 99.0 fLFitzgibbon HospitalMONOCYTES ABSOLUTE AUTO 0.4NOParkland Health CenterMonocytes/100 WBC (Bld)6.7 %1.7 - 12.0 %[facility] NEUTROPHILS ABSOLUTE AUTO3.2[facility] CenterNeutrophils/100 WBC (Bld)56.9 %43.0 - 75.0 %[facility] HospitalPlatelet mean volume (Bld) [Entitic vol]10.4 fL9.5 - 13.5 fLFitzgibbon HospitalTB EO #0.1[facility] CenterTB [id number] [facility] RBC4.57 [facility] WBC5.6NOParkland Health CenterCLINISYNCNOMS HealthcareBasophils Auto (Bld) [#/Vol]Ordered By: Asif Bhatt on 77-37-6066Usvvqfkyc (Bld) [#/Vol]0.0 10 3/uL0.0-0.1FDayton VA Medical CenterBasophils/100 WBC Auto (Bld)Ordered By: Asif Bhatt on 60-51-3561Umzxzuzjq/100 WBC (Bld)0.5 %0.2-2.0[facility] PrebleEosinophils/100 WBC Auto (Bld)Ordered By: Asif Bhatt on 26-67-3639Gveabvtgatn/100 WBC (Bld)2.0 %0.9-7.0[facility] Erythrocyte distribution width Auto (RBC) [Ratio]Ordered By: Asif Bhatt on 95-58-3334Qwieukfkmea distribution width (RBC) [Ratio]13.1 %11.0-15.0[facility] PrebleHematocrit Auto (Bld) [Volume fraction]Ordered By: Asif Bhatt on 81-05-7296Kcvyzoedmg (Bld) [Volume fraction]39.3 %36.0-48.0[facility] PrebleHemoglobin [Mass/volume] in BloodOrdered By: Asif Bhatt on 39-08-8906Dodwmgefsv (Bld) [Mass/Vol]12.8 g/dL12.0-16.0[facility]bleLaboratory - Chemistry and Chemistry - challengeOrdered By: Asif Bhatt on 96-68-5180Kkjyykak [Mass/Vol]41.0 ng/mL8.0-252.0[facility] PrebleTransferrin [Mass/Vol]321 mg/wD429-495BmcrwudagKettering Health PrebleComment on above:Performed at: [facility] [address] [id number] Director: Jose Alejandro Matthews PhD, Phone: [phone] Laboratory - Hematology and Cell countsOrdered By: Asif Bhatt on 12-17-2024 Immature granulocytes/100 WBC (Bld)0.2 %0.0-0.5FDayton [facility] Center Leukocytes [#/volume] corrected for nucleated erythrocytes in Blood by Automated counOrdered By: Asif Bhatt on 86-82-9605CFJ corrected for nucl RBC Auto (Bld) [#/Vol]5.6 10 3/uL4.0-11.0[facility] PrebleLymphocytes Auto (Bld) [#/Vol]Ordered By: Asif Bhatt on 34-91-4833Usexhcobzzj (Bld) [#/Vol]1.9 10 3/uL1.2-3.8[facility] PrebleLymphocytes/100 WBC Auto (Bld) Ordered By: Asif Bhatt on 22-00-2490Xnzvhcychvw/100 WBC (Bld)33.7 %20.5-60.0 [facility] PrebleMCH Auto (RBC) [Entitic mass]Ordered By: Asif Bhatt on 68-53-0545KBK (RBC) [Entitic mass]28.0 pg26.7-34.0[facility] PrebleMCHC Auto (RBC) [Mass/Vol]Ordered By: Asif Bhatt on 12-17-2024 MCHC (RBC) [Mass/Vol]32.6 g/dL29.9-35.2FDayton VA Medical CenterMCV Auto (RBC) [Entitic vol]Ordered By: Asif Bhatt on 45-46-0071HLV (RBC) [Entitic vol] 86.0 fL81.0-99.0[facility] PrebleMonocytes Auto (Bld) [#/Vol] Ordered By: Asif Bhatt on 61-98-7585Keuwetuko (Bld) [#/Vol]0.4 10 3/uL0.3-0.8 [facility]bleMonocytes/100 WBC Auto (Bld)Ordered By: Asif Bhatt on 90-47-8081Qsuzqejez/100 WBC (Bld)6.7 %1.7-12.0[facility] PrebleNeutrophils Auto (Bld) [#/Vol]Ordered By: Asif Bhatt on 04-55-3921Aagnfwbekxp (Bld) [#/Vol]3.2 10 3/uL1.4-6.5FDayton VA Medical CenterNeutrophils/100 WBC Auto (Bld)Ordered By: Asif Bhatt on 12-17-2024 Neutrophils/100 WBC (Bld)56.9 %43.0-75.0[facility]bleNo Panel InformationOrdered By: Asif Bhatt on 69-05-1115Cfscdnbjhxj # (Auto)0.1 10 3/uL0.0-0.7FDayton VA Medical CenterImmature Granulocyte # (Auto)0.01 10 3/uL0.00-0.03[facility] PreblePlatelet mean volume Auto (Bld) [Entitic vol]Ordered By: Asif Bhatt on 44-21-4727Ntlhfeam mean volume (Bld) [Entitic vol]10.4 fL9.5-13.5FDayton VA Medical CenterPlatelets Auto (Bld) [#/Vol]Ordered By: Asif Bhatt on 87-75-7434Rhgcbantc (Bld) [#/Vol]225 10 3/dS022-188FfkwdsmjkKettering Health PrebleRBC Auto (Bld) [#/Vol]Ordered By: Asif Bhatt on 20-51-0926BRX (Bld) [#/Vol]4.57 10 6/uL4.20-5.40[facility] PrebleIron binding capacity [Mass/volume] in Serum or Plasma Ordered By: Britt Harris on 00-79-8959Rquz binding capacity [Mass/Vol] 395.0 ug/dL250.0-450.0[facility] PrebleIron saturation [Mass Fraction] in Serum or PlasmaOrdered By: Britt Harris on 78-39-4698Anin saturation [Mass fraction]17.2 %[facility]bleLaboratory - Chemistry and Chemistry - challengeOrdered By: Britt Hraris on 11-19-2024 Iron [Mass/Vol]68.0 ug/dL50.0-170.0[facility] PrebleTSH Qn1.283 m[IU]/L0.358-3.740[facility] PrebleBasophils Auto (Bld) [#/Vol] on 40-52-8241Mpuclrqno (Bld) [#/Vol]Automated basophil count0.0-0.1FDayton VA Medical CenterBasophils/100 WBC Auto (Bld)on 42-38-0351Phtbaxbat/100 WBC (Bld)Automated basophil %0.2-2.0[facility] Eosinophils/100 WBC Auto (Bld)on 10-65-6060Wjscstlhhct/100 WBC (Bld)Automated eosinophil %0.9-7.0[facility]bleErythrocyte distribution width Auto (RBC) [Ratio]on 14-60-0493Ncbfldvuhfy distribution width (RBC) [Ratio]Erythrocyte distribution width [Ratio] by Automated klzlzZjji71.0-15.0 [facility] PrebleEstimated glomerular filtration rate (GFR) non- Americanon 46-70-8314STO/1.73 sq M.predicted among non-blacks MDRD (S/P/Bld) [Vol rate/Area]Estimated glomerular filtration rate (GFR) non->=60 mL/min/1.73m 2FDayton VA Medical CenterFibrin D-dimer [Presence] in Platelet poor plasma by Latex agglutinationon 80-32-8722Erwpso D- dimer LA Ql (PPP)Fibrin D-dimer [Presence] in Platelet poor plasma by Latex agglutinationCritically high<=0.59[facility] PrebleComment on above:RESULTS CALLED TO WILFRID MEDINA RN [...] stress, and generalizedhospitalization. Globulin Calc (S) [Mass/Vol]on 02-34-7730Epzdznzj (S) [Mass/Vol]Serum globulin measurement by calculation (mass/volume)[facility] Hematocrit Auto (Bld) [Volume fraction]on 46-81-9741Ycpdbrrwer (Bld) [Volume fraction]Hematocrit [Volume Fraction] of Blood by Automated tnkxoEov15.0-48.0 [facility]bleHemoglobin [Mass/volume] in Bloodon 07-14-2024 Hemoglobin (Bld) [Mass/Vol]Hemoglobin [Mass/volume] in XpuvfXbm61.0-16.0 [facility]bleLaboratory - Chemistry and Chemistry - challengeon 92-08-9700Oxcxxlu [Mass/Vol]2.9 g/dLLow3.4-5.0[facility]bleALP [Catalytic activity/Vol]69 U/B06-091ZvlrnwsurKettering Health PrebleALT [Catalytic activity/Vol]16 U/H89-65LzszwdnjpKettering Health Preble AST [Catalytic activity/Vol]14 U/CNbn23-49IvaurlznwKettering Health Preble Bilirubin [Mass/Vol]0.5 mg/dL0.2-1.0[facility]bleCalcium [Mass/Vol]8.4 mg/dLLow8.5-10.1FDayton VA Medical CenterChloride [Moles/Vol]105 mmol/Q60-414EbinzfpxcKettering Health PrebleCO2 [Moles/Vol]26.8 mmol/L21.0-32.0[facility]bleCreatinine [Mass/Vol]0.56 mg/dL 0.55-1.02[facility] PrebleGFR/1.73 sq M.predicted MDRD (S/P/Bld) [Vol rate/Area]mL/min/{1.73_m2}>=60 mL/min/1.73m 2FDayton VA Medical CenterGlucose [Mass/Vol]98 mg/wN45-295NcishexhwKettering Health PrebleLactate [Moles/Vol]0.9 mmol/L0.4-2.0[facility]blePotassium [Moles/Vol]3.9 mmol/L3.5-5.1FDayton VA Medical CenterProtein [Mass/Vol] 6.2 g/dLLow6.4-8.2FClermont County Hospitalodium [Moles/Vol]140 mmol/L 136-145[facility]bleUrea nitrogen [Mass/Vol]9.0 mg/dL 7.0-18.0[facility] PrebleUrea nitrogen/Creatinine [Mass ratio] 16.1 mg/mgKettering Health PrebleLaboratory - Hematology and Cell countson 41-73-2559Aglwmuet granulocytes/100 WBC (Bld)0.3 %0.0-0.5FDayton VA Medical CenterLeukocytes [#/volume] corrected for nucleated erythrocytes in Blood by Automated counon 31-57-4611JLE corrected for nucl RBC Auto (Bld) [#/Vol]Leukocytes [#/volume] corrected for nucleated erythrocytes in Blood by Automated coun4.0-11.0[facility]bleLymphocytes Auto (Bld) [#/Vol]on 83-32-7480Bkoxlabibsh (Bld) [#/Vol]Lymphocytes [#/volume] in Blood by Automated count1.2-3.8[facility]bleLymphocytes/100 WBC Auto (Bld)on 07-03-5669Aedgkzyufxc/100 WBC (Bld)Lymphocytes/100 leukocytes in Blood by Automated count20.5-60.0[facility] HamiltonH Auto (RBC) [Entitic mass]on 57-85-6550ZML (RBC) [Entitic mass]MCH [Entitic mass] by Automated xudlgUrv34.7-34.0[facility] PrebleMCHC Auto (RBC) [Mass/Vol]on 66-12-9937VZAT (RBC) [Mass/Vol]MCHC [Mass/volume] by Automated count29.9-35.2FDayton VA Medical CenterMCV Auto (RBC) [Entitic vol]on 16-42-9645MEM (RBC) [Entitic vol]MCV [Entitic volume] by Automated countLow 81.0-99.0[facility]bleMonocytes Auto (Bld) [#/Vol]on 20-21-6054Miwuuddgv (Bld) [#/Vol]Automated blood monocyte count0.3-0.8[facility]bleMonocytes/100 WBC Auto (Bld)on 58-14-5999Deofbxpad/100 WBC (Bld)Automated monocyte %1.7-12.0[facility] Neutrophils Auto (Bld) [#/Vol]on 27-85-6972Cbybrcxmcje (Bld) [#/Vol]Neutrophils [#/volume] in Blood by Automated count1.4-6.5FDay[facility] Center Neutrophils/100 WBC Auto (Bld)on 49-60-6607Xpvbolegmiz/100 WBC (Bld)Automated neutrophil %43.0-75.0[facility]bleNo Panel Informationon 69-45-0554Bsbqoycbmkj # (Auto)0.1 10 3/uL0.0-0.7FDayton VA Medical CenterImmature Granulocyte # (Auto)0.02 10 3/uL0.00-0.03[facility] PrebleTroponin I High Sensitivity<4.0 pg/mLLow4.0-51.3FDayton VA Medical CenterComment on above:CUT-OFF POINTS HAVE BEEN ESTABLISHED BASED [...] INFORMATION.Platelet mean volume Auto (Bld) [Entitic vol]on 23-67-1607Afkmuykm mean volume (Bld) [Entitic vol] Platelet mean volume [Entitic volume] in Blood by Automated count9.5-13.5 [facility]blePlatelets Auto (Bld) [#/Vol]on 07-14-2024 Platelets (Bld) [#/Vol]Platelets [#/volume] in Blood by Automated moico034-842 [facility] PrebleRBC Auto (Bld) [#/Vol]on 74-88-1228VYL (Bld) [#/Vol]Erythrocytes [#/volume] in Blood by Automated count4.20-5.40[facility] Centererum or plasma albumin/globulin mass ratioon 07-14-2024 Albumin/Globulin [Mass ratio]Serum or plasma albumin/globulin mass ratio [facility] Centererum or plasma anion gap determinationon 05-72-5556Ebaws gap [Moles/Vol]Serum or plasma anion gap determinationKettering Health PrebleUrine Cultureon 55-38-3928Ujbfwebd identified Cx Nom (U) 25,000 colonies/ml mixed bacterial skin contaminants 2 Days PERFORMED BY: [place] [address] PATHOLOGIST [employer] INTERMEDIARY STEVE RICK M.D.NormalThe Unc Medical Center Physician GroupComment on above: Performed By: #### CU[facility] #### [place] [address] USAUrine cultureOrdered By: Jennifer Marker on 07-14-2024 Bacteria identified Cx Nom (U)Urine cultureKettering Health Preble Urinalysis macro (dipstick) panel (U)on 86-87-2651Cvoxqcuyt, UANegativeNegative - 4(70) +++ mg/dLNOMS HealthcareBlood, UAPositiveNegative [...] (Bld) [#/Vol]on 07-01-2024 Basophils (Bld) [#/Vol]Automated basophil count0.0-0.1FDayton VA Medical CenterBasophils/100 WBC Auto (Bld)on 09-59-0536Hfhduojun/100 WBC (Bld)Automated basophil %0.2-2.0[facility]bleEosinophils/100 WBC Auto (Bld)on 30-79-7462Yvqolkmgyub/100 WBC (Bld)Automated eosinophil %Low0.9-7.0 [facility]bleErythrocyte distribution width Auto (RBC) [Ratio]on 54-19-8662Xvahnugveya distribution width (RBC) [Ratio]Erythrocyte distribution width [Ratio] by Automated count11.0-15.0[facility]bleHematocrit Auto (Bld) [Volume fraction]on 65-11-3200Nrssgahhvq (Bld) [Volume fraction]Hematocrit [Volume Fraction] of Blood by Automated countLow 36.0-48.0[facility]bleHemoglobin [Mass/volume] in Bloodon 99-72-8590Fckccuaguw (Bld) [Mass/Vol]Hemoglobin [Mass/volume] in BloodLow 12.0-16.0[facility]bleLaboratory - Hematology and Cell countson 81-58-7077Ouxugcxk granulocytes/100 WBC (Bld)0.4 %0.0-0.5FDayton VA Medical CenterLeukocytes [#/volume] corrected for nucleated erythrocytes in Blood by Automated counon 79-75-2795MIF corrected for nucl RBC Auto (Bld) [#/Vol]Leukocytes [#/volume] corrected for nucleated erythrocytes in Blood by Automated coun4.0-11.0[facility]bleLymphocytes Auto (Bld) [#/Vol]on 06-49-0640Yzhhihnsphu (Bld) [#/Vol]Lymphocytes [#/volume] in Blood by Automated count1.2-3.8[facility]bleLymphocytes/100 WBC Auto (Bld)on 64-62-9368Plerigxxrpw/100 WBC (Bld)Lymphocytes/100 leukocytes in Blood by Automated count20.5-60.0[facility] PrebleMCH Auto (RBC) [Entitic mass]on 77-27-0944ATP (RBC) [Entitic mass]MCH [Entitic mass] by Automated qinbuVti11.7-34.0[facility] PrebleMCHC Auto (RBC) [Mass/Vol]on 02-51-1597FTQF (RBC) [Mass/Vol]MCHC [Mass/volume] by Automated count29.9-35.2FDayton VA Medical CenterMCV Auto (RBC) [Entitic vol]on 18-20-9213TEP (RBC) [Entitic vol]MCV [Entitic volume] by Automated countLow 81.0-99.0[facility]bleMonocytes Auto (Bld) [#/Vol]on 56-70-7056Ueuokwwuo (Bld) [#/Vol]Automated blood monocyte count0.3-0.8[facility]bleMonocytes/100 WBC Auto (Bld)on 74-09-7556Shzoqaanx/100 WBC (Bld)Automated monocyte %1.7-12.0[facility] Neutrophils Auto (Bld) [#/Vol]on 25-15-0243Hzbtaupwoqg (Bld) [#/Vol]Neutrophils [#/volume] in Blood by Automated count1.4-6.5FD[facility] Center Neutrophils/100 WBC Auto (Bld)on 66-83-0165Lzubkwmgxvr/100 WBC (Bld)Automated neutrophil %43.0-75.0[facility]bleNo Panel Informationon 30-93-4041Dizkcjaowkd # (Auto)0.1 10 3/uL0.0-0.7FDayton VA Medical CenterImmature Granulocyte # (Auto)0.04 10 3/uLHigh0.00-0.03[facility] PreblePlatelet mean volume Auto (Bld) [Entitic vol]on 91-56-5107Fwczsarx mean volume (Bld) [Entitic vol]Platelet mean volume [Entitic volume] in Blood by Automated count9.5-13.5FDayton VA Medical CenterPlatelets Auto (Bld) [#/Vol]on 08-84-6078Hzhpkklrj (Bld) [#/Vol]Platelets [#/volume] in Blood by Automated -797HcwjzpglxKettering Health PrebleRBC Auto (Bld) [#/Vol]on 15-31-2478ZHP (Bld) [#/Vol]Erythrocytes [#/volume] in Blood by Automated count Low4.20-5.40[facility] PrebleBasophils Auto (Bld) [#/Vol]on 62-23-6717Ytudgiuwd (Bld) [#/Vol]Automated basophil count0.0-0.1FDayton VA Medical CenterBasophils/100 WBC Auto (Bld)on 53-12-5766Rogtuntax/100 WBC (Bld)Automated basophil %0.2-2.0[facility] Eosinophils/100 WBC Auto (Bld)on 11-33-9678Sahdqozneul/100 WBC (Bld)Automated eosinophil %Low0.9-7.0[facility] PrebleErythrocyte distribution width Auto (RBC) [Ratio]on 14-18-8253Hsvvahfqccn distribution width (RBC) [Ratio]Erythrocyte distribution width [Ratio] by Automated count11.0-15.0 [facility]bleHematocrit Auto (Bld) [Volume fraction]on 58-05-1720Qgiopnozmt (Bld) [Volume fraction]Hematocrit [Volume Fraction] of Blood by Automated fitkaMtv46.0-48.0[facility]bleHemoglobin [Mass/volume] in Bloodon 32-12-4933Lmnttdhujq (Bld) [Mass/Vol]Hemoglobin [Mass/volume] in LguenYcl12.0-16.0[facility]bleLaboratory - Hematology and Cell countson 32-78-9038Clpfgbyx granulocytes/100 WBC (Bld)0.5 % 0.0-0.5FDayton VA Medical CenterLeukocytes [#/volume] corrected for nucleated erythrocytes in Blood by Automated counon 84-82-1389WIY corrected for nucl RBC Auto (Bld) [#/Vol]Leukocytes [#/volume] corrected for nucleated erythrocytes in Blood by Automated coun4.0-11.0[facility] Lymphocytes Auto (Bld) [#/Vol]on 95-83-3438Gdaqtoiascm (Bld) [#/Vol]Lymphocytes [#/volume] in Blood by Automated count1.2-3.8[facility] Lymphocytes/100 WBC Auto (Bld)on 66-90-2640Adbztlrcodg/100 WBC (Bld) Lymphocytes/100 leukocytes in Blood by Automated count20.5-60.0[facility] HamiltonH Auto (RBC) [Entitic mass]on 90-58-0957GVQ (RBC) [Entitic mass]MCH [Entitic mass] by Automated ynzgpQmb81.7-34.0[facility] PrebleMCHC Auto (RBC) [Mass/Vol]on 90-49-0208ABLY (RBC) [Mass/Vol]MCHC [Mass/volume] by Automated count29.9-35.2FDayton VA Medical CenterMCV Auto (RBC) [Entitic vol]on 98-21-1886PKY (RBC) [Entitic vol] MCV [Entitic volume] by Automated hpdhuPnw43.0-99.0[facility] PrebleMonocytes Auto (Bld) [#/Vol]on 17-92-1859Jimjascwy (Bld) [#/Vol]Automated blood monocyte countHigh0.3-0.8[facility]bleMonocytes/100 WBC Auto (Bld)on 83-22-6766Dqanvquoe/100 WBC (Bld)Automated monocyte %1.7-12.0 [facility] PrebleNeutrophils Auto (Bld) [#/Vol]on 06-30-2024 Neutrophils (Bld) [#/Vol]Neutrophils [#/volume] in Blood by Automated countHigh 1.4-6.5FDayton VA Medical CenterNeutrophils/100 WBC Auto (Bld)on 48-80-0178Gkeepjdvdmr/100 WBC (Bld)Automated neutrophil %43.0-75.0[facility]bleNo Panel Informationon 55-74-1068Vndmzusvtcc # (Auto)0.0 10 3/uL0.0-0.7FDayton VA Medical CenterImmature Granulocyte # (Auto)0.05 10 3/uLHigh0.00-0.03[facility] PreblePlatelet mean volume Auto (Bld) [Entitic vol]on 53-74-6564Ejcvjqkf mean volume (Bld) [Entitic vol]Platelet mean volume [Entitic volume] in Blood by Automated count9.5-13.5FDayton VA Medical CenterPlatelets Auto (Bld) [#/Vol]on 05-53-9427Pgfsgfyzp (Bld) [#/Vol]Platelets [#/volume] in Blood by Automated aexau366-497BsmcgfoitKettering Health PrebleRBC Auto (Bld) [#/Vol]on 05-87-8166WQL (Bld) [#/Vol]Erythrocytes [#/volume] in Blood by Automated countLow4.20-5.40[facility] PrebleBasophils Auto (Bld) [#/Vol]on 60-85-4250Mdhnijqet (Bld) [#/Vol]Automated basophil count0.0-0.1FDayton VA Medical CenterBasophils/100 WBC Auto (Bld)on 68-58-2813Rwbrmczpu/100 WBC (Bld)Automated basophil %Low0.2-2.0[facility] PrebleBuprenorphine [Presence] in Urineon 06-29-2024 Buprenorphine Ql (U)Buprenorphine [Presence] in UrineNEGTriHealth Good Samaritan HospitalComment on above:DRUG CLASS TEST SYSTEM CUT-OFF CONCENTRATIONS ARE ASFOLLOWS:AMP (Amphetamine): 500 ng/mLBAR (Barbiturates): 200 ng/mLBZO (Benzodiazepines): 150 ng/mLBUP (Buprenorphine): 10 ng/mLCOC (Cocaine): 150 ng/ mLmAMP (Methamphetamine): 500 ng/mLMTD (Methadone): 200 ng/mLOPI (Opiates): 100 ng/mLOXY (Oxycodone): 100 ng/mLPCP (Phencyclidine): 25 ng/mLTHC (Cannabinoids): 50 ng/mLTCA (Trycyclic Antidepressants): 300 ng/mLEosinophils/100 WBC Auto (Bld) on 51-75-6927Lyvyxhuvavf/100 WBC (Bld)Automated eosinophil %Low0.9-7.0[facility] PrebleErythrocyte distribution width Auto (RBC) [Ratio]on 96-01-6323Ixaaitzhfut distribution width (RBC) [Ratio]Erythrocyte distribution width [Ratio] by Automated count11.0-15.0[facility] Hematocrit Auto (Bld) [Volume fraction]on 08-60-5563Nxocvylcdy (Bld) [Volume fraction]Hematocrit [Volume Fraction] of Blood by Automated vflcmHum63.0-48.0 [facility] PrebleHemoglobin [Mass/volume] in Bloodon 06-29-2024 Hemoglobin (Bld) [Mass/Vol]Hemoglobin [Mass/volume] in NfzfpApu59.0-16.0 [facility]bleLaboratory - Drug toxicologyon 06-29-2024 Amphetamines Ql (U)NegativeNEGATIVEKettering Health [facility]ble Benzodiazepines Ql (U)NegativeNEGATIVEKettering Health PrebleCocaine Ql (U)NegativeNEGTriHealth Good Samaritan HospitalOpiates Ql (U)Negative NEGATIVEKettering Health PreblePhencyclidine Ql (U)NegativeNEGATIVE [facility]bleLaboratory - Hematology and Cell countson 77-14-7382Kbkmevwo granulocytes/100 WBC (Bld)0.3 %0.0-0.5FDayton VA Medical CenterLaboratory - Urinalysison 23-42-8084Csfkq Ql (Urine sed)NONE SEEN NONE SEENKettering Health PrebleLeukocytes [#/volume] corrected for nucleated erythrocytes in Blood by Automated counon 71-79-2389ATX corrected for nucl RBC Auto (Bld) [#/Vol]Leukocytes [#/volume] corrected for nucleated erythrocytes in Blood by Automated coun4.0-11.0[facility] Lymphocytes Auto (Bld) [#/Vol]on 94-48-0203Znrfrgljutp (Bld) [#/Vol]Lymphocytes [#/volume] in Blood by Automated countLow1.2-3.8[facility] PrebleLymphocytes/100 WBC Auto (Bld)on 26-44-0889Bxqygmlcwxc/100 WBC (Bld) Lymphocytes/100 leukocytes in Blood by Automated gzfgvKqg77.5-60.0[facility] PrebleMCH Auto (RBC) [Entitic mass]on 15-30-4188RLJ (RBC) [Entitic mass]MCH [Entitic mass] by Automated pwjgcXzk94.7-34.0[facility] PrebleMCHC Auto (RBC) [Mass/Vol]on 35-95-9707NPNQ (RBC) [Mass/Vol]MCHC [Mass/volume] by Automated count29.9-35.2FDayton VA Medical CenterMCV Auto (RBC) [Entitic vol]on 53-55-8684BKI (RBC) [Entitic vol] MCV [Entitic volume] by Automated rtkbpAsc55.0-99.0[facility] PrebleMethadone [Presence] in Urine by Screen methodon 59-38-7232Xotvpnduk Screen Ql (U)Methadone [Presence] in Urine by Screen methodNEGATIVEKettering Health PrebleMonocytes Auto (Bld) [#/Vol]on 91-41-5367Mrqpicmtk (Bld) [#/Vol]Automated blood monocyte count0.3-0.8[facility] Monocytes/100 WBC Auto (Bld)on 81-42-0988Vxcgroijo/100 WBC (Bld)Automated monocyte %1.7-12.0[facility] PrebleNeutrophils Auto (Bld) [#/Vol]on 98-10-5789Dnsgvbveqjz (Bld) [#/Vol]Neutrophils [#/volume] in Blood by Automated countHigh1.4-6.5FDayton VA Medical CenterNeutrophils/100 WBC Auto (Bld)on 74-51-1846Byppofapuvl/100 WBC (Bld)Automated neutrophil %High 43.0-75.0[facility]bleNo Panel Informationon 06-29-2024 Eosinophils # (Auto)0.0 10 3/uL0.0-0.7FDayton VA Medical CenterImmature Granulocyte # (Auto)0.03 10 3/uL0.00-0.03[facility] PrebleUrine BacteriaNONE SEEN #/HPFNONE [facility] HospitalUrine Barbiturates ScreenNegativeNEGATIVEKettering Health PrebleUrine Culture ReflexedNOKettering Health PrebleUrine Marijuana (THC) Screen NegativeNEGATIVEKettering Health PrebleUrine Methamphetamines Screen NegativeNEGATIVEKettering Health PrebleUrine Other CastsNONE SEEN #/LPFNONE [facility] HospitalUrine Other CrystalsNone Seen #/HPFNone [facility] HealthUrine RBC0-2 #/HPF0-2FDayton VA Medical CenterUrine Squamous Epithelial CellsRARE #/LPFNONE/RARE [facility] PrebleUrine Transitional Epithelial CellsRARE #/LPF AbnormalNONE [facility] HospitalUrine WBC0-2 #/HPFAbnormalNONE [facility] HospitalPlatelet mean volume Auto (Bld) [Entitic vol]on 41-19-1410Yosyzeyp mean volume (Bld) [Entitic vol]Platelet mean volume [Entitic volume] in Blood by Automated count9.5-13.5FDayton VA Medical CenterPlatelets Auto (Bld) [#/Vol]on 91-15-9794Nylvqjdjt (Bld) [#/Vol]Platelets [#/volume] in Blood by Automated qhuce948-649CmuthlztiKettering Health Preble RBC Auto (Bld) [#/Vol]on 11-86-7937ACS (Bld) [#/Vol]Erythrocytes [#/volume] in Blood by Automated countLow4.20-5.40[facility] PrebleTBH UA (CLEAN/CATCH) DIRECTOR OF USER EXPERIENCE/MICRO IF IND.on 35-73-7133ZQVQORHNQ URINENegativeNEGATIVENOMS HealthcareBLOOD URINENegativeNEGATIVENOMS HealthcareClarity (U)CLEARCLEARNOMS HealthcareColor (U)LT. YELLOWYELLOWNOCA HealthcareGLUCOSE URINE UANegative NEGATIVE mg/dLNOMS HealthcareInterpretation and review of laboratory results AbnormalNOMS HealthcareKetones Ql (U)40 mg/dLAbnormalNEGATIVENOCA Healthcare Leukocyte esterase Test strip Ql (U)NegativeNEGATIVENOMS HealthcareNITRITE URINE NegativeNEGATIVENOMS HealthcarepH (U)6.0 [pH]5.0 - 9.0NOMS HealthcarePROTEIN URINENegativeNEG/TRACE mg/dLNOMS HealthcareSPECIFIC GRAVITY URINE1.0151.005 - 1.025NOCA HealthcareURINE MICROSCOPIC INDICATEDYESNOCA HealthcareUROBILINOGEN URINE0.2 EU/dL0.2 - 1.0 EU/dLNOCA HealthcareCLINISYNCNOMS HealthcareUrine tricyclic antidepressant measurementon 79-34-0821Zcrsnkqma antidepressants (U) [Mass/Vol]Urine tricyclic antidepressant measurementNEGATIVEKettering Health PrebleoxyCODONE+oxyMORphone [Presence] in Urine by Screen methodon 84-81-8058eosVMKCTU+oxyMORphone Screen Ql (U)oxyCODONE+oxyMORphone [Presence] in Urine by Screen methodNEGATIVEKettering Health PrebleALL MISCELLANEOUS TESTon 40-41-8349NYWGEHGOWXZBF TESTCOMMENT.NOMS HealthcareComment on above:Test Ordered: [id number] Strep Gp B Culture+Rflx Strep Gp B Culture+Rflx Positive [A ] CB Reference Range: Negative Centers for Disease Control and Prevention (CDC) and [employer] Congress of Obstetricians and Gynecologists (ACOG) guidelines [...] at high risk for anaphylaxis. Performed at: [employer] [id number] Compliance Examiner: Jose Alejandro Matthews PhD, Phone: [phone] GROUP B STREP [id number] CULTURE, GROUP B STREP WITH SUSCEPTIBILITY [facility] Panel Informationon [id number] Test COMMENT.[facility]tering Health PrebleComment on above:Test Ordered: [id number] Strep Gp B Culture+RflxStrep Gp B Culture+Rflx [...] women at high risk for anaphylaxis.Performed at: CB - [facility] [id number] [place], [place] [id number] Director: Jose Alejandro Matthews PhD, Phone: [phone] macro (dipstick) panel (U)on 47-99-7617Tknnusdho, UANegativeNegative - 4(70) +++ mg/dLNOMS HealthcareBlood, UANegativeNegative [...] HealthcareNOMS HealthcareUS OB FOLLOW UP TRANSABDOMINAL APPROACHon 16-64-8511ON OB FOLLOW UP TRANSABDOMINAL APPROACHFINDINGS: No prior [...] Delivery: 07/19/24 Gestational Age as of 05/11/2024: [id number] macro (dipstick) panel (U)on 45-76-2182Eggzlmlbj, UANegativeNegative - 4(70) +++ mg/dLNOMS HealthcareBlood, UAPositiveNegative [...] - 9NOMS HealthcareProtein, UANegativeNegative - 2000(20) ++++ mg/dLNOCA HealthcareSpec Grav, UA1.021 - 1.03NOCA Healthcare Urobilinogen, UA0.20.2 - 12 mg/dLNOMadison Medical Center HealthcareUrinalysis macro (dipstick) panel (U)on 30-09-6571Kmugrgzmb, UANegativeNegative - 4(70) +++ mg/dL NOMS HealthcareBlood, UANegativeNegative - 50 Daniel/mcLJORD[facility] HealthcareClarity, UA ClearNOCA HealthcareColor, UAYellowNOCA HealthcareGlucose, UANegativeNegative - 1999(110) ++++ mg/dLJORDAN VALLEY MEDICAL [facility]ENTER HealthcareInterpretation and review of laboratory resultsAbnormEncompass Health Rehabilitation Hospital of ErieKetones, UANegativeNegative - 160(16) ++++ mg/dL NOM HealthcareLeukocytes, UATraceNegative - 500+++ [facility] Nitrite, UANegativeNegative - PositiveNOCA HealthcarepH, UA75 - 9[facility] Protein, UANegativeNegative - 1999(20) ++++ mg/dLNOCA HealthcareSpec Grav, UA 1.011 - 1.03NOCA HealthcareUrobilinogen, UA0.20.2 - 12 mg/dLCrossroads Regional Medical Center HealthcareALL CBC WITH AUTO DIFFon 00-76-1756YUCFKSMZJ ABSOLUTE JWFX1HNOB HealthcareBasophils/100 WBC (Bld)0.5 %0.2 - 2.0 %[facility]OMMercy Hospital St. LouisEosinophils/100 WBC (Bld)0.5 %Low0.9 - 7.0 %[facility]gib[facility] HospitalErythrocyte distribution width (RBC) [Ratio]12.9 %11.0 - 15.0 %NOM HealthcareHematocrit (Bld) [Volume fraction]33.7 %Low36.0 - 48.0 %[facility] HospitalHemoglobin (Bld) [Mass/Vol]10.8 g/dLLow12.0 - 16.0 g/dLFitzgibbon HospitalIMMATURE GRANULOCYTES ABS AUTO0.04HighNOCA Healthcare Immature granulocytes/100 WBC (Bld)0.6 %High0.0 - 0.5 %[facility] Interpretation and review of laboratory resultsAbnormalNOMS Healthcare LYMPHOCYTES ABSOLUTE AUTO1.3NOCA HealthcareLymphocytes/100 WBC (Bld)20.2 %Low 20.5 - 60.0 %[facility] (RBC) [Entitic mass]26.9 pg26.7 - 34.0 pgFulton Medical Center- FultonHC (RBC) [Mass/Vol]32 g/dL29.9 - 35.2 g/dLFulton Medical Center- FultonV (RBC) [Entitic vol]83.8 fL81.0 - 99.0 fLJORDAN [facility] HealthcareMONOCYTES ABSOLUTE AUTO0.5NOCA HealthcareMonocytes/100 WBC (Bld)8.6 %1.7 - 12.0 %[facility] HealthcareNEUTROPHILS ABSOLUTE AUTO4.4NOCA HealthcareNeutrophils/100 WBC (Bld)69.6 %43.0 - 75.0 %[facility] HospitalPlatelet mean volume (Bld) [Entitic vol]10.3 fL9.5 - 13.5 fLFitzgibbon HospitalTBH EO #0NOMS [facility] CenterTB YUB364RFHRChristian Hospital RBC4.02LowOzarks Community Hospital WBC6.3NOCA HealthcareCLINISYNCNOMS HealthcareUrinalysis macro (dipstick) panel (U)on 33-77-2921Zxmygputl, UANegativeNegative - 4(70) +++ mg/dL NOM HealthcareBlood, UANegativeNegative - 50 Daniel/mcLNOMS HealthcareClarity, UA ClearNOMS HealthcareColor, UAYellowNOMS HealthcareGlucose, UANegativeNegative - 2000(110) ++++ mg/dLNOCA HealthcareInterpretation and review of laboratory resultsNormalNOCA HealthcareKetones, UANegativeNegative - 160(16) ++++ mg/dLNOCA HealthcareLeukocytes, UANegativeNegative - 500+++ Gavin/mcLNOMS HealthcareNitrite, UANegativeNegative - PositiveNOMS HealthcarepH, UA5.55 - 9N[facility]S Healthcare Protein, UANegativeNegative - 2000(20) ++++ mg/dLNOMS HealthcareSpec Grav, UA 1.0251 - 1.03NOMS HealthcareUrobilinogen, UA0.20.2 - 12 mg/dLFitzgibbon HospitalNOCA HealthcareNo Panel InformationOrdered By: Radiologist Radiology on 03-02-2024 [facility] Healthcare Work Phone: No Panel Informationon 57-91-8634Qxzvsoejn Study observation (narrative)JUN HealthcareUS OB ANATOMYon 85-74-6656Jzt[address] [address] Ultrasound Report Signed Patient: CARLOS ADAMS MR#: [id number] : 1995 Acct:[id number] Age/Sex: 28 / F ADM Date: 03/01/24 Loc: [facility] Attending Dr: Asif Bhatt D.O. Ordering Physician: Asif Bhatt D.O. Date of Service: 03/01/24 Procedure(s): US OB anatomy Accession Number(s): [id number] cc: Asif Bhatt D.O.; BRITT HARRIS [address] [address] Patient Name: CARLOS ADAMS MRN: [id number] date: 1995 Sex: F Assigned Patient Location: [facility] Current Patient Location: Accession/Order Number: [id number] Exam Date: 03/01/2024 13:45 Report Date: 03/02/2024 06:27 At the request of: ASIF BHATT Procedure: US OB anatomy EXAMINATION: US [...] with growth detailed above. Electronically authenticated by: ABRIL SCANLON Date: 03/02/2024 06:27 Dictated By: Abril Scanlon M.D. Signed By: 03/02/24628 DD/ 6 TD/TT: Subsorter:TBHRadiology, Radiologist, MD - 03/02/2024 [place] [address] Ultrasound Report Signed Patient: CARLOS ADAMS MR#: [id number] : 1995 Acct:[id number] Age/Sex: 28 / F ADM Date: 03/01/24 Loc: [facility] Attending Dr: Asif Bhatt D.O. Ordering Physician: Asif Bhatt D.O. Date of Service: 03/01/24 Procedure(s): US OB anatomy Accession Number(s): [id number] cc: Asif Bhatt D.O.; BRITT HARRIS [place] [id number] Patient Name: CARLOS ADAMS MRN: [id number] date: 1995 Sex: F Assigned Patient Location: [facility] Current Patient Location: Accession/Order Number: [id number] Exam Date: 03/01/2024 13:45 Report Date: 03/02/2024 06:27 At the request of: ASIF BHATT Procedure: US OB anatomy EXAMINATION: US [...] with growth detailed above. Electronically authenticated by: ABRIL SCANLON Date: 03/02/2024 06:27 Dictated By: Abril Scanlon M.D. Signed By: 03/02/24628 DD/ 6 TD/TT: Subsorter: JUN Abernathy OB CERVICAL LENGTHon 29-97-1364Frv[address] [address] Ultrasound Report Signed Patient: CARLOS ADAMS MR#: [id number] : 1995 Acct:[id number] Age/Sex: 28 / F ADM Date: 03/01/24 Loc: [facility] Attending Dr: Asif Bhatt D.O. Ordering Physician: Asif Bhatt D.O. Date of Service: 03/01/24 Procedure(s): US OB cervical length Accession Number(s): [id number] cc: Asif Bhatt D.O.; BRITT HARRIS [place] [id number] Patient Name: CARLOS ADAMS MRN: [facility]:[id number] date: 1995 Sex: F Assigned Patient Location: [facility] Current Patient Location: Accession/Order Number: [id number] Exam Date: 03/01/2024 13:45 Report Date: 03/02/2024 06:27 At the request of: ASIF BHATT Procedure: US OB cervical length EXAMINATION: [...] with growth detailed above. Electronically authenticated by: ABRIL SCANLON Date: 03/02/2024 06:27 Dictated By: Abril Scanlon M.D. Signed By: 03/02/24628 DD/ 6 TD/TT: Subsorter:TBHRadiology, Radiologist, - 03/02/2024 [place] [address] Ultrasound Report Signed Patient: CARLOS ADAMS MR#: [id number] : 1995 Acct:[id number] Age/Sex: 28 / F ADM Date: 03/01/24 Loc: [facility] Attending Dr: Asif Bhatt D.O. Ordering Physician: Asif Bhatt D.O. Date of Service: 03/01/24 Procedure(s): US OB cervical length Accession Number(s): [id number] cc: Asif Bhatt D.O.; BRITT HARRIS [place] [id number] Patient Name: CARLOS ADAMS MRN: [id number] date: 1995 Sex: F Assigned Patient Location: [facility] Current Patient Location: Accession/Order Number: [id number] Exam Date: 03/01/2024 13:45 Report Date: 03/02/2024 06:27 At the request of: ASIF BHATT Procedure: US OB cervical length EXAMINATION: [...] with growth detailed above. Electronically authenticated by: ABRIL SCANLON Date: 03/02/2024 06:27 Dictated By: Abril Scanlon M.D. Signed By: 03/02/24628 DD/ 6 TD/TT: Subsorter: JUN Ramirez, SERUM, OPEN SPINA BIFIDAon 12-56-3908LKC MOM0.72.[facility] HealthcareAFP VALUE27.2 ng/mL.[facility] HealthcareCOMMENT:Comment.[facility] Comment on above:Tiffanie Petersen, Ph.D., [facility] Director References: Available Upon Request. Multiples Of Median Cutoffs For AFP Elevations Patrick 2.5 Black 2.8 IDD 2.0 Twins 4.5 Abbreviation Definitions IDD - Insulin Dep Diabetes OSBR - Open Spina Bifida Risk For further inquiries contact [email or web address] [facility] at [phone]. This test was developed and its performance characteristics determined by [employer]. It has not been cleared or approved by the Food and Drug Administration. Performed at: [facility] [address] [facility], [place], [place] [id number] Compliance Examiner: Tor Real [facility], Phone: [phone] GEST. AGE ON COLLECTION DATE18.3. weeksNOCA HealthcareGESTAT. AGE BASED ONLMP. [facility] HospitalComment on above:Recalculations are not recommended when gestational dating by LMP and ultrasound are within 10 days. INSULIN DEP DIABETESNo.[facility] HealthcareINTERPRETATIONComment.[facility] Comment on above:Interpretation: Screen Negative [...] Customer Services to discuss available options. The [employer] recommends amniocentesis be offered to women age 35 and older. MATERNAL AGE AT EDD27.7. yrNOCA HealthcareMULTIPLE GESTATIONNo.[facility] OSBR RISK 1 [id number].[facility] HealthcareRACECaucasian.[facility] HospitalRESULTSReport. [facility] HospitalTEST RESULTS:Negative.[facility] HospitalAuvhacqetyXSZSYN550. lbsNOCA HealthcarePREGNANCY N N LMP [id number] 0 17 N 1 Y 198 N N N N N White/ CLINISYNCNOCA HealthcareRECURRENT VAGINITIS (HTRX)on 77-97-1733NADXFMNTD VAGINAE 0NOMS HealthcareATOPOBIUM VAGINAENot detectedNOMS HealthcareBVAB 2,3 (BACTERIAL VAGINOSIS ASSOCIATED BACTERIA 2, 3); MOBILUNCUS [id number] HealthcareBVAB 2,3 (BACTERIAL VAGINOSIS ASSOCIATED BACTERIA 2, 3); MOBILUNCUS SPPNot detectedNOMS HealthcareCANDIDA ALBICANS, PARAPSILOSIS, KLAAKMONVZ2NUVB HealthcareCANDIDA ALBICANS, PARAPSILOSIS, TROPICALISNot detectedNOMS HealthcareCANDIDA GLABRATA0 NOMS HealthcareCANDIDA GLABRATANot detectedNOMS HealthcareCANDIDA OSYTSW8BOGL HealthcareCANDIDA KRUSEINot detectedNOMS HealthcareCHLAMYDIA XLYPPIUIYEF1ULWN HealthcareCHLAMYDIA TRACHOMATISNot detectedNOMS HealthcareGARDNERELLA VAGINALIS0 NOMS HealthcareGARDNERELLA VAGINALISNot detectedNOMS HealthcareMEGASPHAERA (TYPES 1, 2)0NOMS HealthcareMEGASPHAERA (TYPES 1, 2)Not detectedNOMS Healthcare MYCOPLASMA TIKDJPXZAE0PPZF HealthcareMYCOPLASMA GENITALIUMNot detectedNOCA HealthcareNEISSERIA ZHTUOJQGJQK0PGZO HealthcareNEISSERIA GONORRHOEAENot detected NOMS HealthcareTRICHOMONAS NTHMFNCDA0WEQW HealthcareTRICHOMONAS VAGINALISNot detectedNOMS HealthcareNOMS HealthcareUrinalysis macro (dipstick) panel (U)on 03-33-1826Fovjduhop, UANegativeNegative - 4(70) +++ mg/dLNOCA HealthcareBlood, UANegativeNegative - 50 Daniel/mcLNOCA HealthcareClarity, UAClearNOCA Healthcare Color, UAYellowNOCA HealthcareGlucose, UANegativeNegative - 2000(110) ++++ mg/dL [facility] HealthcareInterpretation and review of laboratory resultsNormalNOCA HealthcareKetones, UANegativeNegative - 160(16) ++++ mg/dLJORDAN VALLEY MEDICAL [facility]ENTER Healthcare Leukocytes, UANegativeNegative - 500+++ Gavin/mcLNOCA HealthcareNitrite, UA NegativeNegative - PositiveNOCA HealthcarepH, UA5.55 - 9NOCA HealthcareProtein, UANegativeNegative - 2000(20) ++++ mg/dLNOCA HealthcareSpec Grav, UA1.021 - 1.03 NOMS HealthcareUrobilinogen, UA0.20.2 - 12 mg/dLNOParkland Health CenterNOCA Healthcare ALL CBC WITH AUTO DIFFon 18-10-2262UZQIRYQUG ABSOLUTE AUTO0.0NOCA Healthcare Basophils/100 WBC (Bld)0.1 %Low0.2 - 2.0 %NOMS HealthcareEosinophils/100 WBC (Bld)1.0 %0.9 - 7.0 %NOMS HealthcareErythrocyte distribution width (RBC) [Ratio] 13.2 %11.0 - 15.0 %NOMS HealthcareHematocrit (Bld) [Volume fraction]36.4 %36.0 - 48.0 %NOM HealthcareHemoglobin (Bld) [Mass/Vol]11.9 g/dLLow12.0 - 16.0 g/dLNOCA HealthcareIMMATURE GRANULOCYTES ABS AUTO0.01NOCA HealthcareImmature granulocytes/100 WBC (Bld)0.1 %0.0 - 0.5 %NOM HealthcareInterpretation and review of laboratory resultsAbnormEncompass Health Rehabilitation Hospital of ErieLYMPHOCYTES ABSOLUTE AUTO1.5 [facility] HospitalLymphocytes/100 WBC (Bld)22.8 %20.5 - 60.0 %[facility] (RBC) [Entitic mass]28.1 pg26.7 - 34.0 pgFulton Medical Center- FultonHC (RBC) [Mass/Vol] 32.7 g/dL29.9 - 35.2 g/dLFulton Medical Center- FultonV (RBC) [Entitic vol]86.1 fL81.0 - 99.0 fLFitzgibbon HospitalMONOCYTES ABSOLUTE AUTO0.4NOParkland Health CenterMonocytes/100 WBC (Bld)6.0 %1.7 - 12.0 %[facility] HospitalNEUTROPHILS ABSOLUTE AUTO4.7[facility] Neutrophils/100 WBC (Bld)70.0 %43.0 - 75.0 %F[facility] HospitalPlatelet mean volume (Bld) [Entitic vol]10.7 fL9.5 - 13.5 fLFitzgibbon HospitalTB EO #0.1NOMS Healthcare TBH KRQ305SJHKParkland Health CenterTB RBC4.23NOParkland Health CenterTB WBC6.7[facility] CLINISYNCFitzgibbon HospitalUrinalysis macro (dipstick) panel (U)on 01-07-2024 Bilirubin, UANegativeNegative - 4(70) +++ mg/dLNOCA HealthcareBlood, UANegative Negative - 50 Daniel/mcLNOCA HealthcareClarity, UAClearNOCA HealthcareColor, UA YellowNOCA HealthcareGlucose, UANegativeNegative - 1999(110) ++++ mg/dLJORD[facility]LEY [facility] HealthcareInterpretation and review of laboratory resultsNormEncompass Health Rehabilitation Hospital of Erie Ketones, UANegativeNegative - 160(16) ++++ mg/dLJORDAN VALLEY [facility] HealthcareLeukocytes, UA NegativeNegative - 500+++ Gavin/mcLNOCA HealthcareNitrite, UANegativeNegative - PositiveNOCA HealthcarepH, UA6.55 - 9NOMS HealthcareProtein, UANegativeNegative - 2000(20) ++++ mg/dLJORDAN VALLEY [facility] HealthcareSpec Grav, UA1.0201 - 1.03NOCA Healthcare Urobilinogen, UA1.00.2 - 12 mg/dLNOMS HealthcareNOMS HealthcareALL CBC WITH AUTO DIFFon 52-47-3079MHNJSBAYB ABSOLUTE AUTO0.0NOParkland Health CenterBasophils/100 WBC (Bld)0.3 %0.2 - 2.0 %[facility] HospitalEosinophils/100 WBC (Bld)0.9 %0.9 - 7.0 % [facility] HospitalErythrocyte distribution width (RBC) [Ratio]13.0 %11.0 - 15.0 % [facility] HospitalHematocrit (Bld) [Volume fraction]39.1 %36.0 - 48.0 %F[facility] HospitalHemoglobin (Bld) [Mass/Vol]12.8 g/dL12.0 - 16.0 g/dLFitzgibbon Hospital IMMATURE GRANULOCYTES ABS AUTO0.02F[facility] HospitalImmature granulocytes/100 WBC (Bld)0.3 %0.0 - 0.5 %[facility] HospitalInterpretation and review of laboratory resultsAbnormalFitzgibbon HospitalLYMPHOCYTES ABSOLUTE AUTO1.6NOParkland Health Center Lymphocytes/100 WBC (Bld)20.4 %Low20.5 - 60.0 %[facility]ultonH (RBC) [Entitic mass]27.8 pg26.7 - 34.0 pgFulton Medical Center- FultonHC (RBC) [Mass/Vol]32.7 g/dL29.9 - 35.2 g/dLFulton Medical Center- FultonV (RBC) [Entitic vol]84.8 fL81.0 - 99.0 fLFitzgibbon HospitalMONOCYTES ABSOLUTE AUTO0.6NOParkland Health CenterMonocytes/100 WBC (Bld)7.1 % 1.7 - 12.0 %[facility] HospitalNEUTROPHILS ABSOLUTE AUTO5.5[facility] Neutrophils/100 WBC (Bld)71.0 %43.0 - 75.0 %F[facility] HospitalPlatelet mean volume (Bld) [Entitic vol]10.2 fL9.5 - 13.5 fLFitzgibbon HospitalTB EO #0.1NOMS [facility] TB KRH321PJGGChristian Hospital RBC4.61NOChristian Hospital WBC7.7NOParkland Health Center CLINISYNCFitzgibbon HospitalUrinalysis macro (dipstick) panel (U)on 12-17-2023 Bilirubin, UANegativeNegative - 4(70) +++ mg/dLNOMS HealthcareBlood, UANegative Negative - 50 Daniel/mcLNOMS HealthcareClarity, UAClearNOMS HealthcareColor, UA YellowNOMS HealthcareGlucose, UANegativeNegative - 2000(110) ++++ mg/dLNOMS HealthcareInterpretation and review of laboratory resultsAbnormalNOMS Healthcare Ketones, UAPositiveNegative - 160(16) ++++ mg/dLNOMS HealthcareComment on above: 15Leukocytes, UANegativeNegative - 500+++ Gavin/mcLNOMS HealthcareNitrite, UA NegativeNegative - PositiveNOMS HealthcarepH, UA6.55 - 9NOMS HealthcareProtein, UANegativeNegative - 2000(20) ++++ mg/dLNOMS HealthcareSpec Grav, UA1.0301 - 1.03NOMS HealthcareUrobilinogen, UA1.00.2 - 12 mg/dLNOMS HealthcareNOMS HealthcareHCG ( test) Ql (U)on 47-21-8354Uxdgpqukgerzze and review of laboratory resultsAbnormalNOMS HealthcarePreg Test, UrPositiveNOMS Healthcare NOMS HealthcareUS OB TRANSVAGINALon 44-43-6418V[place] [address] Ultrasound Report Signed Patient: CARLOS ADAMS MR#: [id number] : 1995 Acct:[id number] Age/Sex: 28 / F ADM Date: 12/12/23 Loc: [facility] Attending Dr: Asif Bhatt D.O. Ordering Physician: Asif Bhatt D.O. Date of Service: 12/12/23 Procedure(s): US OB transvaginal Accession Number(s): [id number] cc: Asif Bhatt D.O.; Physician,Non-Staff MBrenda The [address] [address] Patient Name: CARLOS ADAMS MRN: [id number] date: 1995 Sex: F Assigned Patient Location: [facility] Current Patient Location: [facility] Accession/Order Number: [id number] Exam Date: 12/12/2023 08:34 Report Date: 12/12/2023 11:37 At the request of: ASIF BHATT Procedure: US OB transvaginal EXAMINATION: US [...] Single live intrauterine . Electronically authenticated by: ABRIL SCANLON Date: 12/12/2023 11:37 Dictated By: Abril Scanlon M.D. Signed By: 12/12/23 1139 DD/ 1137 TD/TT: Subsorter:TBHRadiology, Radiologist, MD - 12/12/2023 [place] [address] Ultrasound Report Signed Patient: CARLOS ADAMS MR#: [id number] : 1995 Acct:[id number] Age/Sex: 28 / F ADM Date: 12/12/23 Loc: [facility] Attending Dr: Asif Bhatt D.O. Ordering Physician: Asif Bhatt D.O. Date of Service: 12/12/23 Procedure(s): US OB transvaginal Accession Number(s): [id number] cc: Asif Bhatt D.O.; Physician,Non-Staff Talia The [address] [address] Patient Name: CARLOS ADAMS MRN: [id number] date: 1995 Sex: F Assigned Patient Location: [facility] Current Patient Location: [facility] Accession/Order Number: [id number] Exam Date: 12/12/2023 08:34 Report Date: 12/12/2023 11:37 At the request of: ASIF BHATT Procedure: US OB transvaginal EXAMINATION: US [...] Single live intrauterine . Electronically authenticated by: ABRIL SCANLON Date: 12/12/2023 11:37 Dictated By: Abril Scanlon M.D. Signed By: 12/12/23 1139 DD/ 1137 TD/TT: Subsorter: [facility] HealthcareRadiology Study observation (narrative)F[facility] HospitalUS OB TRANSVAGINALOrdered By: Radiologist Radiology on 89-51-2107FEHP Healthcare Work Phone: Urinalysis macro (dipstick) panel (U)on 12-12-2023 Bilirubin, UAPositiveNegative - 4(70) +++ mg/dLNOMS HealthcareComment on above: smallBlood, UANegativeNegative - 50 Daniel/mcLNOMS HealthcareClarity, UAClearNOMS HealthcareColor, UAYellowNOMS HealthcareGlucose, UANegativeNegative - 2000(110) ++++ mg/dLNOMS HealthcareInterpretation and review of laboratory resultsAbnormal NOM HealthcareKetones, UAPositiveNegative - 160(16) ++++ mg/dLNOMS Healthcare Comment on above:traceLeukocytes, UANegativeNegative - 500+++ Gavin/mcLNOMS HealthcareNitrite, UANegativeNegative - PositiveNOMS HealthcarepH, UA6.05 - 9 NOMS HealthcareProtein, UAPositiveNegative - 1999(20) ++++ mg/dLFitzgibbon Hospital Comment on above:30Spec Grav, UA1.0301 - 1.03NOCA HealthcareUrobilinogen, UA0.2 0.2 - 12 mg/dLNOParkland Health CenterNOCA HealthcareCytology Cervical or vaginal smear or scraping studyon 47-19-1785QQZL HealthcareCBC AUTO DIFFon 64-74-0100QRIU #0.0 103/ulNormal0.0-0.1The [facility] ToledoComment on above:Performed By: #### CBC #### [facility] [address] [address] [address] Jerry SamuelBasophils/100 WBC (Bld)0.3 %Normal0.2-2.0[facility] Comment on above:Performed By: #### CBC #### [facility] [address] [address] [address] Jerry Landry #0.1 103/ulNormal0.0-0.7The [facility] ToledoComment on above: Performed By: #### CBC #### [facility] [address] [address] [address] Jerry Gonzalesosinophils/100 WBC (Bld)1.4 %Normal0.9-7.0[facility] Comment on above:Performed By: #### CBC #### [facility] [address] [address] [address] Jerry Gonzalesrythrocyte distribution width (RBC) [Ratio]13.2 %Ejbzty07.0-15.[address] [facility] HospitalComment on above:Performed By: #### CBC #### [facility] [address] [address] [address] Jerry SamuelHematocrit (Bld) [Volume fraction]33.9 %Critically low36.0-48.[address] [facility] HospitalComment on above:Performed By: #### CBC #### [facility] [address] [address] [address] Jerry SamuelHemoglobin (Bld) [Mass/Vol]11.3 g/dLCritically low12.0-16.0The [facility] ToledoComment on above:Performed By: #### CBC #### [facility] [address] [place] [address] Dr. Jerry Luu #0.04 10e3/ulCritically high0.00-0.03The [facility] Comment on above:Performed By: #### CBC #### [facility] [address] [place] [address] Dr. Jerry Luu %0.6 %Critically high0.0-0.5The [facility] ToledoComment on above:Performed By: #### CBC #### [facility] [address] [place] [address] Dr. Jerry Loyd #1.9 103/ulNormal1.2-3.8The [facility] ToledoComment on above:Performed By: #### CBC #### [facility] [address] [place] [address] Dr. Jerry Darnellhocytes/100 WBC (Bld)30.2 %Ggcegv36.5-60.0The [facility] ToledoComment on above:Performed By: #### CBC #### [facility] [address] [place] [address] Dr. Jerry Hodgson DIFF REQNONormalThe [facility] ToledoComment on above: Performed By: #### CBC #### [facility] [address] [place] [address] Dr. Jerry Aggarwal (RBC) [Entitic mass]29.9 wzQzegrv49.7-34.0The [facility] ToledoComment on above:Performed By: #### CBC #### [facility] [address] [place] [address] Dr. Jerry Aggarwal (RBC) [Mass/Vol]33.3 g/jHWrxkgh53.9-35.2The [facility] ToledoComment on above:Performed By: #### CBC #### [facility] [address] [place] [address] Dr. Jerry Aggarwal (RBC) [Entitic vol]89.7 uYBvskef18.0-99.0The [facility] ToledoComment on above:Performed By: #### CBC #### [facility] [address] [place] [address] Dr. Jerry Antony #0.5 103/ulNormal0.3-0.8The [facility] ToledoComment on above:Performed By: #### CBC #### [facility] [address] [place] [address] Dr. Jerry Maysocytes/100 WBC (Bld)7.2 %Normal1.7-12.0The [facility] Comment on above:Performed By: #### CBC #### [facility] [address] [place] [address] Dr. Jerry Story #3.8 103/ulNormal1.4-6.5The [facility] ToledoComment on above:Performed By: #### CBC #### [facility] [address] [place] [address] Dr. Jerry Robertsutrophils/100 WBC (Bld)60.3 %Eqinie04.0-75.0The [facility] ToledoComment on above:Performed By: #### CBC #### [facility] [address] [place] [address] Dr. Jerry Granados mean volume (Bld) [Entitic vol]9.8 fLNormal9.5-13.5The [facility] ToledoComment on above:Performed By: #### CBC #### [facility] [address] [place] [address] Dr. Jerry JaramilloT188 103/zyXawcyy847-475Arj [facility] ToledoComment on above: Performed By: #### CBC #### [facility] [address] [place] [address] Dr. Jerry RojasC3.78 106/ulCritically low4.20-5.40The [facility] ToledoComment on above:Performed By: #### CBC #### [facility] [address] [place] [address] Dr. Jerry SamuelWBC6.2 103/ulNormal4.0-11.0The [facility] ToledoComment on above: Performed By: #### CBC #### [facility] [address] [address] [address] Jerry SamuelGLUCOSE - 1HRon 24-05-0694Tlpsmbs [Mass/Vol]100 mg/oSQxwfhs90-163 The [facility] ToledoComment on above:Performed By: #### NBOX #### [facility] [address] [address] [address] Jerry SamuelUS PREG ANATOMY SINGLEon 10-04-7440LJ PREG ANATOMY SINGLE EXAMINATION: US PREG ANATOMY [...] Electronically authenticated by: ABRIL SCANLON Date: 2022-07-02 13:[address] [place] [address] MATERNAL FOR SPINA BIFIDAon 67-83-6470QIA MoM0.87Magruder HospitalComment on above:Performed By: #### RPRQ #### [facility] [address] [place] [address] Dr. Jerry Telles Value39.6 ng/mLNKeenan Private HospitalComment on above: Performed By: #### RPRQ #### [facility] [address] [place] [address] Dr. Jerry Telles, Serum for Spina BifidaReportMagruder Hospital Comment on above:Performed By: #### RPRQ #### [facility] [address] [address] [address] Jerry JackWood County HospitalComment on above:Result Comment: Tiffanie Petersen, Ph.D., [facility] Director . References: Available Upon Request. . Multiples Of Median Cutoffs For AFP Elevations Patrick 2.5 Black 2.8 IDD 2.0 Twins 4.5 Abbreviation Definitions IDD - Insulin Dep Diabetes OSBR - Open Spina Bifida Risk . For further inquiries contact [email or web address] at [phone]. . This test was developed and its performance characteristics determined by [employer]. It has not been cleared or approved by the Food and Drug Administration.Performed By: #### RPRQ #### [facility] [address] [place] [address] Dr. Jerry Ball Age Collection Date18.9 weeksMagruder Hospital Comment on above:Performed By: #### RPRQ #### [facility] [address] [place] [address] Dr. Jerry Ballat, Age Based onUltrasoundMagruder HospitalComment on above:Result Comment: 09.0 on 04/04/2022 Recalculations are not recommended when gestational dating by LMP and ultrasound are within 10 days.Performed By: #### RPRQ #### [facility] [address] [place] [address] Dr. Jerry SamuelInsulin Dep DiabetesNoNKeenan Private HospitalComment on above:Performed By: #### RPRQ #### [facility] [address] [place] [address] Dr. Jerry SamuelInterpretationCommentBucyrus Community Hospital on above: Result Comment: Interpretation: Screen Negative [...] Customer Services to discuss available options. [employer] recommends amniocentesis be offered to women age 35 and older.Performed By: #### RPRQ #### [facility] [address] [place] [address] Dr. Jerry SamuelMaternajose f Age at EDD[age] yrMagruder HospitalCommckenzie memorial hospital on above:Performed By: #### RPRQ #### [facility] [address] [place] [address] Dr. Jerry Xiongltiplmatilda GestationNoNKeenan Private HospitalCommckenzie memorial hospital on above: Performed By: #### RPRQ #### [facility] [address] [place] [address] Dr. Jerry SamuelOSBR Risk 1 [id number] Community Hospital on above: Performed By: #### RPRQ #### [facility] [address] [place] [address] Dr. Jerry SamuelPDShante.NormalMercy Health St. Charles HospitalCommckenzie memorial hospital on above:Performed By: #### RPRQ #### [facility] [address] [place] [address] Dr. Jerry VailCaucasianNKeenan Private HospitalCommckenzie memorial hospital on above: Performed By: #### RPRQ #### [facility] [address] [place] [address] Dr. Jerry Eli Results:NegativeBucyrus Community Hospital on above: Performed By: #### RPRQ #### [facility] [address] [address] [address] Jerry SamuelCHLAMYDIA/GONOCOCCUS ELINOR (SWAB/URINE/PAPon [id number] trachomatis, NAANegativeNormalNegativeMercy Health St. Charles HospitalComment on above: Performed By: #### RPRQ #### [facility] [address] [place] [address] Dr. Jerry SamuelNeisseria gonorrhoeae, NAANegativeNormalNegativeThe [facility] ToledoComment on above:Performed By: #### RPRQ #### [facility] [address] [place] [address] Dr. Jerry SamuelVAGINITIS/VAGINOSIS DNA PROBEon [id number] speciesNegative NormalNegativeThe [facility]edoCommckenzie memorial hospital on above:Performed By: #### VAGINT #### [facility] [address] [place] [address] Dr. Jerry SamuelGardnerella vaginalisNegativermalNegOhio State Health System Comment on above:Performed By: #### VAGINT #### [facility] [address] [place] [address] Dr. Jerry SamuelTrichomonas vaginalisNegativeEllis Fischel Cancer CenteralNegativeMercy Health St. Charles Hospital Comment on above:Performed By: #### VAGINT #### [facility] [address] [place] [address] Dr. Jerry MaloneC AUTO DIFFon [id number] #0.0 103/ulNormal0.0-0.1The [facility]edoComment on above:Performed By: #### CBC #### [facility] [address] [place] [address] Dr. Jerry Tylersophils/100 WBC (Bld)0.1 %Critically low0.2-2.0The [facility]edoComment on above:Performed By: #### CBC #### [facility] [address] [place] [address] Dr. Edwards ChangEO #0.0 103/ulNormal0.0-0.7The Jordana HospitalComment on above: Performed By: #### CBC #### [facility] [address] [place] [address] Dr. Jerry Gonzalesosinophils/100 WBC (Bld)0.4 %Critically low0.9-7.0The [facility]edoComment on above:Performed By: #### CBC #### [facility] [address] [place] [address] Dr. Jerry Gonzalesrythrocyte distribution width (RBC) [Ratio]12.6 %Qziiia28.0-15.[address] Charles HospitalComment on above:Performed By: #### CBC #### [facility] [address] [place] [address] Dr. Jerry SamuelHematocrit (Bld) [Volume fraction]34.0 %Critically low36.0-48.[address] Charles HospitalComment on above:Performed By: #### CBC #### [facility] [address] [place] [address] Dr. Jerry SamuelHemoglobin (Bld) [Mass/Vol]11.6 g/dLCritically low12.0-16.0The [facility]edoComment on above:Performed By: #### CBC #### [facility] [address] [place] [address] Dr. Jerry Luu #0.03 10e3/ulNormal0.00-0.03The [facility]edoComment on above:Performed By: #### CBC #### [facility] [address] [place] [address] Dr. Jerry Luu %0.4 %Normal0.0-0.5The [facility]edoComment on above: Performed By: #### CBC #### [facility] [address] [place] [address] Dr. Jerry Loyd #1.1 103/ulCritically low1.2-3.8The [facility] on above:Performed By: #### CBC #### [facility] [address] [place] [address] Dr. Jerry Burgosmphocytes/100 WBC (Bld)16.5 %Critically low20.5-60.0The [facility] ToledoComment on above:Performed By: #### CBC #### [facility] [address] [place] [address] Dr. Jerry Hodgson DIFF REQNONormalThe [facility]edoComment on above: Performed By: #### CBC #### [facility] [address] [place] [address] Dr. Jerry Aggarwal (RBC) [Entitic mass]29.1 hpTpuijr08.7-34.0The [facility] ToledoComment on above:Performed By: #### CBC #### [facility] [address] [place] [address] Dr. Jerry Aggarwal (RBC) [Mass/Vol]34.1 g/fPAredcd13.9-35.2The [facility] ToledoComment on above:Performed By: #### CBC #### [facility] [address] [place] [address] Dr. Jerry Chicas (RBC) [Entitic vol]85.2 oRJqrzkq95.0-99.0The [facility] ToledoComment on above:Performed By: #### CBC #### [facility] [address] [place] [address] Dr. Jerry Antony #0.4 103/ulNormal0.3-0.8The [facility]edoComment on above:Performed By: #### CBC #### [facility] [address] [place] [address] Dr. Jerry Maysocytes/100 WBC (Bld)6.0 %Normal1.7-12.0The [facility] Comment on above:Performed By: #### CBC #### [facility] [address] [place] [address] Dr. Jerry Story #5.1 103/ulNormal1.4-6.5The [facility]edoComment on above:Performed By: #### CBC #### [facility] [address] [place] [address] Dr. Jerry Richardophils/100 WBC (Bld)76.6 %Critically high43.0-75.0The [facility] Memorial Hospitalment on above:Performed By: #### CBC #### [facility] [address] [place] [address] Dr. Jerry Granados mean volume (Bld) [Entitic vol]10.5 fLNormal9.5-13.5The [facility]edoComment on above:Performed By: #### CBC #### [facility] [address] [place] [address] Dr. Jerry SamuelPLT207 103/vqLrtsld871-432Xml [facility]edoCommckenzie memorial hospital on above: Performed By: #### CBC #### [facility] [address] [place] [address] Dr. Jerry SamuelRBC3.99 106/ulCritically low4.20-5.40The [facility] on above:Performed By: #### CBC #### [facility] [address] [place] [address] Dr. Jerry SamuelWBC6.7 103/ulNormal4.0-11.0The [facility]edoCommckenzie memorial hospital on above: Performed By: #### CBC #### [facility] [address] [place] [address] Dr. Jerry Montgomery URINE PROFILEon 37-30-4049Xpmhorbpc Ql (U)NegativeNormal NEGATIVEThe [facility]edoCommckenzie memorial hospital on above:Performed By: #### ERUR #### [facility] [address] [place] [address] Dr. Jerry Maxwell (U)CLEARNormalCLEARThe [facility]edoComment on above: Performed By: #### ERUR #### [facility] [address] [place] [address] Dr. Jerry Vizcaino (U)LT. YELLOWNormalYELLOWMercy Health St. Charles HospitalComment on above:Performed By: #### ERUR #### [facility] [address] [place] [address] Dr. Jerry Vogt micrscopic examination will be performed if indicated. NormalThe [facility] HospitalComment on above:Performed By: #### ERUR #### [facility] [address] [place] [address] Dr. Jerry SamuelGlucose Ql (U)NegativeNormalNEGATIVEMercy Health St. Charles HospitalComment on above:Performed By: #### ERUR #### [facility] [address] [place] [address] Dr. Jerry SamuelHemoglobin Ql (U)NegativeNormalNEGATIVEMercy Health St. Charles Hospital Comment on above:Performed By: #### ERUR #### [facility] [address] [place] [address] Dr. Jerry SamuelKetones Ql (U)NegativeNormalNEGATIVEMercy Health St. Charles HospitalComment on above:Performed By: #### ERUR #### [facility] [address] [place] [address] Dr. Jerry SamuelLEUKOCYTESNegativeNormalNEGATIVEMercy Health St. Charles HospitalComment on above:Performed By: #### ERUR #### [facility] [address] [place] [address] Dr. Jerry SamuelNitrite Ql (U)NegativeNormalNEGATIVEMercy Health St. Charles HospitalComment on above:Performed By: #### ERUR #### [facility] [address] [place] [address] Dr. Jerry SamuelpH (U)6.5 [pH]Normal5-9[facility] Charles HospitalComment on above: Performed By: #### ERUR #### [facility] [address] [place] [address] Dr. Jerry SamuelSPEC GRAVITY<=1.772Bawqvnql2.005-<=1.025[facility] Comment on above:Performed By: #### ERUR #### [facility] [address] [place] [address] Dr. Jerry SamuelUA PROTEINNegativeNormalNEGATIVE/ TRACEMercy Health St. Charles Hospital Comment on above:Performed By: #### ERUR #### [facility] [address] [place] [address] Dr. Jerry Kerr MICRO INDNOT INDICATEDNormalThe [facility] ToledoComment on above:Performed By: #### ERUR #### [facility] [address] [place] [address] Dr. Jerry Cruzbilinogen Qn (U)0.2 {Charlette'U}/dLNormal0.2 - 1.0The [facility] ToledoComment on above:Performed By: #### ERUR #### [facility] [address] [place] [address] Dr. Jerry SamuelPROF 14(COMP METB)on [id number] [Mass/Vol]3.4 g/dLNormal 3.4-5.0The [facility]edoComment on above:Performed By: #### RPRQ #### [facility] [address] [place] [address] Dr. Jerry SamuelAlbumin/Globulin [Mass ratio]1.0 {ratio}NormalThe [facility]edoComment on above:Performed By: #### RPRQ #### [facility] [address] [place] [address] Dr. Jerry AbdiP [Catalytic activity/Vol]33 U/LCritically uja72-866Oxq [facility]Commckenzie memorial hospital on above:Performed By: #### RPRQ #### [facility] [address] [place] [address] Dr. Jerry Albert [Catalytic activity/Vol]16 U/JYzkbar85-60Icy [facility]edoComment on above:Performed By: #### RPRQ #### [facility] [address] [place] [address] Dr. Jerry Orozco gap [Moles/Vol]8.5 mmol/LNormalThe [facility]edoComment on above:Performed By: #### RPRQ #### [facility] [address] [place] [address] Dr. Jerry Cervantes [Catalytic activity/Vol]12 U/LCritically rir02-75All [facility]edoComment on above:Performed By: #### RPRQ #### [facility] [address] [address] [address] Jerry SamuelBilirubin [Mass/Vol]0.3 mg/dLNormal0.2-1.0The [facility] Comment on above:Performed By: #### RPRQ #### [facility] [address] [place] [address] Dr. Jerry SamuelCalcium [Mass/Vol]9.2 mg/dLNormal8.5-10.1The [facility] Comment on above:Performed By: #### RPRQ #### [facility] [address] [place] [address] Dr. Jerry SamuelChloride [Moles/Vol]105 mmol/USwrnir93-519Fdw [facility] Comment on above:Performed By: #### RPRQ #### [facility] [address] [place] [address] Dr. Jerry SamuelCO2 [Moles/Vol]25.0 mmol/DSespqu46.0-32.0The [facility] Comment on above:Performed By: #### RPRQ #### [facility] [address] [place] [address] Dr. Jerry SamuelCreatinine [Mass/Vol]0.40 mg/dLCritically low0.55-1.02The [facility]edoComment on above:Performed By: #### RPRQ #### [facility] [address] [place] [address] Dr. Jerry GonzalesGFR-AF SYRIAN>60Normal>=60The [facility]edoComment on above:Performed By: #### RPRQ #### [facility] [address] [place] [address] Dr. Jerry GonzalesGFR-NON AF SYRIAN>60Normal>=60The [facility]edoComment on above:Performed By: #### RPRQ #### [facility] [address] [place] [address] Dr. Jerry SamuelGlobulin (S) [Mass/Vol]3.5 g/dLNormalThe [facility]edoComment on above:Performed By: #### RPRQ #### [facility] [address] [address] [address] Jerry SamuelGlucose [Mass/Vol]94 mg/qRSeqkth46-773Cah [facility] Comment on above:Performed By: #### RPRQ #### [facility] [address] [place] [address] Dr. Jerry SamuelPotassium [Moles/Vol]3.5 mmol/LNormal3.5-5.1The [facility] Comment on above:Performed By: #### RPRQ #### [facility] [address] [place] [address] Dr. Jerry SamuelProtein [Mass/Vol]6.9 g/dLNormal6.4-8.2The [facility] Comment on above:Performed By: #### RPRQ #### [facility] [address] [place] [address] Dr. Jerry SamuelSodium [Moles/Vol]135 mmol/LCritically nsh061-059Ykd [facility]edoComment on above:Performed By: #### RPRQ #### [facility] [address] [place] [address] Dr. Jerry SamuelUrea nitrogen [Mass/Vol]6.0 mg/dLCritically low7.0-18.0The [facility]edoComment on above:Performed By: #### RPRQ #### [facility] [address] [place] [address] Dr. Jerry SamuelUrea nitrogen/Creatinine [Mass ratio]15.0 mg/mgNormalThe [facility]edoComment on above:Performed By: #### RPRQ #### [facility] [address] [place] [address] Dr. Jerry Bloom BOX TEST PT SEND OUTon [id number] TO REF LAB05/02/2022 NormalThe [facility]edoComment on above:Performed By: #### NBOX #### [facility] [address] [place] [address] Dr. Jerry Carter B SURFACE ANTIGEN SCREENon [id number] ScreenNegative NormalNegativeThe [facility] on above:Performed By: #### NBOX #### [facility] [address] [place] [address] Dr. Jerry SamuelHEPATITIS C VIRUS AB W/ REFLEX QUANTon [id number] AB<0.1Normal 0.0-0.9The [facility] on above:Performed By: #### HCVPCRR #### [facility] [address] [place] [address] Dr. Jerry SamuelInterpretation:CommentNormalThe [facility] on above:Result Comment: Negative Not infected with HCV, unless recent infection is suspected or other evidence exists to indicate HCV infection.Performed By: #### HCVPCRR #### [address] [address] [address] Jerry SamuelHIV 1 AND 2 WITH REFLEXon [id number] Screen 4th Generation wRfxNon-ReactiveNormalNon ReactiveThe [facility] on above:Result Comment: HIV Negative HIV-1/HIV-2 antibodies and HIV-1 p24 antigen were NOT detected. There is no laboratory evidence of HIV infection.Performed By: #### RPRQ #### [address] [address] [address] Jerry SamuelRPR QUANTon [id number] Plasma Reagin, QuantNon-Reactive NormalNonRea<1:1The [facility] on above:Result Comment: Please Note: This test does not meet current guidelines for screening and diagnosis of syphilis. This test is intended for following treatment response in patients being treated for syphilis infection. To screen for syphilis infection, a reflex cascade that includes both RPR and a treponema-specific assay should be utilized, such as Treponema pallidum (Syphilis) Screening [place] ([id number]) or Rapid Plasma Reagin (RPR) Test With Reflex to Quantitative RPR and Confirmatory Treponema pallidum Antibodies (773483).Performed By: #### RPRQ #### [address] [address] [address] Jerry SamuelRUBELLA AB IGGon 52-11-2073Yvavybf Antibodies, IgG1.97 index NormalImmune >0.99The [facility]edoComment on above:Result Comment: Non- immune <0.90 Equivocal 0.90 - 0.99 Immune >0.99Performed By: #### RUBIGG #### [facility] [address] [place] [address] Dr. Jerry Miller AUTO DIFFon [id number] #0.0 103/ulNormal0.0-0.1The [facility]edoComment on above:Performed By: #### RPRQ #### [facility] [address] [place] [address] Dr. Jerry SamuelBasophils/100 WBC (Bld)0.3 %Normal0.2-2.0[facility] Comment on above:Performed By: #### RPRQ #### [facility] [address] [place] [address] Dr. Jerry Landry #0.1 103/ulNormal0.0-0.7The [facility]edoComment on above: Performed By: #### RPRQ #### [facility] [address] [place] [address] Dr. Jerry Gonzalesosinophils/100 WBC (Bld)0.7 %Critically low0.9-7.0The [facility] Hospitalment on above:Performed By: #### RPRQ #### [facility] [address] [place] [address] Dr. Jerry Gonzalesrythrocyte distribution width (RBC) [Ratio]12.3 %Fhsugf01.0-15.[address] [facility] HospitalComment on above:Performed By: #### RPRQ #### [facility] [address] [place] [address] Dr. Jerry SamuelHematocrit (Bld) [Volume fraction]35.1 %Critically low36.0-48.[address] [facility] HospitalComment on above:Performed By: #### RPRQ #### [facility] [address] [place] [address] Dr. Jerry SamuelHemoglobin (Bld) [Mass/Vol]11.8 g/dLCritically low12.0-16.0The [facility]edoComment on above:Performed By: #### RPRQ #### [facility] [address] [place] [address] Dr. Jerry Luu #0.02 10e3/ulNormal0.00-0.03The [facility]edoComment on above:Performed By: #### RPRQ #### [facility] [address] [place] [address] Dr. Jerry Luu %0.3 %Normal0.0-0.5The [facility]edoComment on above: Performed By: #### RPRQ #### [facility] [address] [place] [address] Dr. Jerry Loyd #2.0 103/ulNormal1.2-3.8The [facility]edoComment on above:Performed By: #### RPRQ #### [facility] [address] [place] [address] Dr. Jerry Darnellhocytes/100 WBC (Bld)26.7 %Otudrf81.5-60.0The [facility]edoComment on above:Performed By: #### RPRQ #### [facility] [address] [place] [address] Dr. Jerry AldanaUAL DIFF REQNONormalThe [facility]edoComment on above: Performed By: #### RPRQ #### [facility] [address] [place] [address] Dr. Jerry Gentile (RBC) [Entitic mass]29.0 rnRjbabh41.7-34.0The [facility]edoComment on above:Performed By: #### RPRQ #### [facility] [address] [place] [address] Dr. Jerry Gonzalez (RBC) [Mass/Vol]33.6 g/qRPxxcjx30.9-35.2The [facility]edoComment on above:Performed By: #### RPRQ #### [facility] [address] [place], [place] [id number] Dr. Jerry AggarwalV (RBC) [Entitic vol]86.2 vPDtyrgo96.0-99.0The [facility]edoComment on above:Performed By: #### RPRQ #### [facility] [address] [place] [address] Dr. Jerry Antony #0.5 103/ulNormal0.3-0.8The [facility]edoComment on above:Performed By: #### RPRQ #### [facility] [address] [place] [address] Dr. Jerry Maysocytes/100 WBC (Bld)6.7 %Normal1.7-12.0The [facility] Comment on above:Performed By: #### RPRQ #### [facility] [address] [place] [address] Dr. Jerry Story #4.9 103/ulNormal1.4-6.5The [facility]edoComment on above:Performed By: #### RPRQ #### [facility] [address] [place] [address] Dr. Jerry Robertsutrophils/100 WBC (Bld)65.3 %Cduccv50.0-75.0The [facility]edoComment on above:Performed By: #### RPRQ #### [facility] [address] [place] [address] Dr. Jerry Mendozalet mean volume (Bld) [Entitic vol]10.0 fLNormal9.5-13.5The [facility] ToledoComment on above:Performed By: #### RPRQ #### [facility] [address] [place] [address] Dr. Jerry SamuelPLT218 103/toBotyex884-418Qhh [facility]edoComment on above: Performed By: #### RPRQ #### [facility] [address] [place] [address] Dr. Jerry SamuelRBC4.07 106/ulCritically low4.20-5.40The [facility]edoComment on above:Performed By: #### RPRQ #### [facility] [address] [place] [address] Dr. Jerry SamuelWBC7.5 103/ulNormal4.0-11.0The [facility] Hospitalment on above: Performed By: #### RPRQ #### [facility] [address] [place] [address] Dr. Jerry SamuelCULTURE URINEon [id number] URINECulture Observations: NO GROWTH.NormalThe [facility] ToledoComment on above:Performed By: #### NBOX #### [facility] [address] [place] [address] Dr. Jerry SamuelGLYCOHEMOGLOBIN A1Con [id number] RECOMMENDATIONSEE BELOWNormal The [facility]edoCommckenzie memorial hospital on above:Result Comment: ADA RECOMMENDED LIMIT 4.0 - 6.0 ADA THERAPEUTIC TARGET < 7.0 ACTION SUGGESTED > 7.0Performed By: #### NBOX #### [facility] [address] [place] [address] Dr. Jerry SamuelGlucose [Mass/Vol]97 mg/dLNoBlanchard Valley Health System Bluffton HospitalCommckenzie memorial hospital on above:Performed By: #### NBOX #### [facility] [address] [place] [address] Dr. Jerry SamuelHbA1c (Bld) [Mass fraction]5.0 %Normal4.5-6.2The [facility] Hospitalment on above:Performed By: #### NBOX #### [facility] [address] [place] [address] Dr. Jerry SamuelTYPE AND SCREENon [id number] AND SCREENNegativeNormOhioHealthCommckenzie memorial hospital on above:Performed By: #### NBOX #### [facility] [address] [place] [address] Dr. Jerry SamuelUS PREG TVon [id number] PREG TVEXAMINATION: US PREG TV HISTORY: Missed [...] Electronically authenticated by: EDITH WILLIS Date: 2022-04-04 16:13Magruder HospitalPREG QUANT HCGon [id number] mIU/mLNKeenan Private HospitalComment on above:Performed By: #### RPRQ #### [facility] [address] [place] [address] Dr. Jerry Gaming [facility] SCOTTSDALELINCOLN [facility] Medical CenterComment on above: Result Comment: 5-50 0.2-1 WEEK 50-500 1-2 WEEKS 100-5,000 2-3 WEEKS 500-10,000 3-4 WEEKS 1,000-50,000 4-5 WEEKS 10,000-100,000 5-6 WEEKS 15,000-200,000 6-8 WEEKS 10,000-100,000 2-3 MONTHSPerformed By: #### RPRQ #### [address] [address] Dr[address] Jerry Gannon QUANT HCGon [id number] YJTPT986 mIU/mLNKeenan Private HospitalComment on above:Performed By: #### RPRQ #### [facility] [address] [place] [address] Dr. Jerry BELL [facility] CenterCommckenzie memorial hospital on above: Result Comment: 5-50 0.2-1 WEEK 50-500 1-2 WEEKS 100-5,000 2-3 WEEKS 500-10,000 3-4 WEEKS 1,000-50,000 4-5 WEEKS 10,000-100,000 5-6 WEEKS 15,000-200,000 6-8 WEEKS 10,000-100,000 2-3 MONTHSPerformed By: #### RPRQ #### [facility] [address] [place], [place] [id number] Dr. Jerry Perkins OG PANEL 2: 21 to 29on 02-21-2022..NormalAkron [facility] on above:Performed By: #### RPRQ #### [facility] [address] [place] [address] Dr. Jerry Tovar Gdln ACOG Dejjgaw48-67WuvbraYfrUniversity Hospitals [facility]hu[facility] on above:Performed By: #### RPRQ #### [facility] [address] [place] [address] Dr. Jerry SamuelDIAGNOSIS:CommentBucyrus [facility]: Result Comment: NEGATIVE FOR INTRAEPITHELIAL LESION OR MALIGNANCY. SPECIMEN REPROCESSED FOR INTERPRETATION.Performed By: #### RPRQ #### [facility] [address] [place] [address] Dr. Jerry SamuelMethodology:CommentBucyrus Community Hospital on above: Result Comment: This liquid based ThinPrep(R) pap test was screened with the use of an image guided system.Performed By: #### RPRQ #### [facility] [address] [place] [address] Dr. Jerry SamuelNote:CommentBucyrus Community Hospital on above:Result Comment: The Pap smear is a screening test designed to aid in the detection of premalignant and malignant conditions of the uterine cervix. It is not a diagnostic procedure and should not be used as the sole means of detecting cervical cancer. Both false-positive and false-negative reports do occur. .Performed By: #### RPRQ #### [facility] [address] [place] [address] Dr. Jerry SamuelPerformed by:CommentBucyrus Community Hospital on above: Result Comment: Ger Roman Garbage Collection Supervisor (ASCP)Performed By: #### RPRQ #### [facility] [address] [place] [address] Dr. Jerry SamuelReflex Criteria:CommentBucyrus Community Hospital on above:Result Comment: The HPV DNA reflex criteria were not met with this specimen result therefore, no HPV testing was performed. .Performed By: #### RPRQ #### [facility] [address] [place] [address] Dr. Jerry Nogueiraimeloretta adequacy:CommentNoBlanchard Valley Health System Bluffton HospitalComment on above:Result Comment: Satisfactory for evaluation. Endocervical and/or squamous metaplastic cells (endocervical component) are present.Performed By: #### RPRQ #### [facility] [address] [place] [address] Dr. Jerry SamuelUS PELVIS AND TRANSVAGon 75-78-8614SS PELVIS AND TRANSVAG EXAMINATION: US PELVIS AND [...] Electronically authenticated by: EDITH WILLIS Date: 2022-02-13 14:34[facility] AUTO DIFFon [id number] #0.0 103/ulNormal0.0-0.1The [facility] ToledoComment on above:Performed By: #### CBC #### [facility] [address] [place] [address] Dr. Jerry SamuelBasophils/100 WBC (Bld)0.6 %Normal0.2-2.0The [facility] Comment on above:Performed By: #### CBC #### [facility] [address] [place] [address] Dr. Jerry Landry #0.1 103/ulNormal0.0-0.7The [facility] ToledoComment on above: Performed By: #### CBC #### [facility] [address] [address] [address] Jerry Gonzalesosinophils/100 WBC (Bld)1.2 %Normal0.9-7.0The [facility] on above:Performed By: #### CBC #### [facility] [address] [place] [address] Dr. Jerry Gonzalesrythrocyte distribution width (RBC) [Ratio]11.9 %Gjdsuc29.0-15.0 The [facility]edoComment on above:Performed By: #### CBC #### [facility] [address] [place] [address] Dr. Jerry SamuelHematocrit (Bld) [Volume fraction]39.1 %Xvkjux78.0-48.0The [facility] ToledoComment on above:Performed By: #### CBC #### [facility] [address] [place] [address] Dr. Jerry SamuelHemoglobin (Bld) [Mass/Vol]13.0 g/sTOvhxwd63.0-16.0The [facility] Hospital[facility] on above:Performed By: #### CBC #### [facility] [address] [place] [address] Dr. Jerry Luu #0.01 10e3/ulNormal0.00-0.03The [facility] Hospitalment on above:Performed By: #### CBC #### [facility] [address] [place] [address] Dr. Jerry Luu %0.2 %Normal0.0-0.5The [facility] Hospitalment on above: Performed By: #### CBC #### [facility] [address] [place] [address] Dr. Jerry DarnellH #2.4 103/ulNormal1.2-3.8The [facility] ToledoComment on above:Performed By: #### CBC #### [facility] [address] [place] [address] Dr. Jerry Burgosmphocytes/100 WBC (Bld)37.7 %Hopvoz63.5-60.0The [facility] HospitalComment on above:Performed By: #### CBC #### [facility] [address] [address] [address] Jerry Hodgson DIFF REQNONormalThe [facility] ToledoComment on above: Performed By: #### CBC #### [facility] [address] [place] [address] Dr. Jerry Aggarwal (RBC) [Entitic mass]29.2 dwAwwpgf73.7-34.0The [facility] HospitalComment on above:Performed By: #### CBC #### [facility] [address] [place] [address] Dr. Jerry Aggarwal (RBC) [Mass/Vol]33.2 g/jJVcrrxx14.9-35.2The [facility] ToledoComment on above:Performed By: #### CBC #### [facility] [address] [place] [address] Dr. Jerry Aggarwal (RBC) [Entitic vol]87.9 pJQkxlqn65.0-99.0The [facility] ToledoComment on above:Performed By: #### CBC #### [facility] [address] [place] [address] Dr. Jerry Antony #0.4 103/ulNormal0.3-0.8The [facility] ToledoComment on above:Performed By: #### CBC #### [facility] [address] [place] [address] Dr. Jerry Maysocytes/100 WBC (Bld)5.9 %Normal1.7-12.0The [facility] Comment on above:Performed By: #### CBC #### [facility] [address] [place] [address] Dr. Jerry Story #3.5 103/ulNormal1.4-6.5The [facility] ToledoComment on above:Performed By: #### CBC #### [facility] [address] [place] [address] Dr. Jerry Robertsutrophils/100 WBC (Bld)54.4 %Alamvz48.0-75.0The [facility]ordana HospitalComment on above:Performed By: #### CBC #### [facility] [address] [place] [address] Dr. Jerry SamuelPlatelet mean volume (Bld) [Entitic vol]9.9 fLNormal9.5-13.5The [facility] ToledoComment on above:Performed By: #### CBC #### [facility] [address] [place] [address] Dr. Jerry SamuelPLT229 103/ckPxelmc954-140Ilr [facility]Commck[facility] on above: Performed By: #### CBC #### [facility] [address] [place] [address] Dr. Jerry SamuelRBC4.45 106/ulNormal4.20-5.40The [facility]edoCommckenzie [facility] on above:Performed By: #### CBC #### [facility] [address] [place] [address] Dr. Jerry SamuelWBC6.5 103/ulNormal4.0-11.0[facility] HospitalCommckenzie memorial hospital on above: Performed By: #### CBC #### [facility] [address] [place] [address] Dr. Jerry SamuelFRLINCOLN T4on 15-15-9473Azrv T4 [Mass/Vol]0.99 ng/dLNormal0.76-1.46 The [facility]edoCommckenzie memorial [facility] on above:Performed By: #### RPRQ #### [facility] [address] [place] [address] Dr. Jerry SamuelGLYCOHEMOGLOBIN A1Con 62-38-6281VET RECOMMENDATIONSEE BELOWNormal The [facility]edoCommckenzie memorial hospital on above:Result Comment: ADA RECOMMENDED LIMIT 4.0 - 6.0 ADA THERAPEUTIC TARGET < 7.0 ACTION SUGGESTED > 7.0Performed By: #### RPRQ #### [facility] [address] [place] [address] Dr. Jerry SamuelGlucose [Mass/Vol]103 mg/dLNormalThe [facility] ToledoComment on above:Performed By: #### RPRQ #### [facility] [address] [place] [address] Dr. Jerry SamuelHbA1c (Bld) [Mass fraction]5.2 %Normal4.5-6.2The [facility] Hospitalment on above:Performed By: #### RPRQ #### [facility] [address] [place] [address] Dr. Jerry HansonIMEcatherine 52-64-2600IZE Coag (PPP) [Relative time]1.00 {INR} NormalThe [facility] ToledoComment on above:Performed By: #### NBOX #### [facility] [address] [place] [address] Dr. Jerry Joseph [facility] CenterCommck[facility] memorial hospital on above:Result Comment: DESIRED INR: 2.0 - 3.0 CONDITIONS NOT LISTED BELOW 2.5 - 3.5 FOR PROSTHETIC HEART VALVE REPLACEMENT 2.5 - 3.5 RECURRENT THROMBOSIS Performed By: #### NBOX #### [facility] [address] [place] [address] Dr. Jerry SamuelPT Coag (PPP) [Time]10.8 sNormal9.0-11.6The [facility] Comment on above:Performed By: #### NBOX #### [facility] [address] [place] [address] Dr. Jerry Agustin 54-93-2837bPBB Coag (Bld) [Time]27.8 hNseojk69.3-36.2[facility] HospitalCommckenzie memorial hospital on above:Performed By: #### NBOX #### [facility] [address] [place] [address] Dr. Jerry Villa 47-07-5862GDH9.741 uIU/mLNormal0.358-3.740The [facility] on above:Performed By: #### TSH #### [facility] [address] [place] [address] Dr. Jerry Garcia Recordson 66-07-1861Sakhlkm Records [id number]#1.00[facility] Outside Recordson 53-14-3715Bvrfqpw Records [id number]#1.00[facility] Vital Signs Date TimeVital SignValuePerforming SgxgtjmnaRqycvimf23-49-4347 10:57-0400Body evytqc421.47 cmBritt Harris LOCKS INSPECTOR Work Phone: 1(160)[address]10-21-2025 10:57-0400 Body mass index (BMI) [Ratio]29.2 kg/i5Ztkszgipgayle Harris LOCKS INSPECTOR Work Phone: 1(393)[address] [place], [place] 9812610-21-2025 10:57-0400 Body gpoklmtyyey97 [degF]Britt Harris APRN Work Phone: 1(701)[address] [place], [place] 9812610-21-2025 10:57-0400 Body dajzoh89.92 kgLenshantellmichael Kimberly LOCKS INSPECTOR Work Phone: 1(126)[address] [place], [place] 9812610-21-2025 10:57-0400 Diastolic blood wenjydkq09 mm[Hg]Britt Harris LOCKS INSPECTOR Work Phone: 1(752)[address] [place], [place] 9812610-21-2025 10:57-0400 Heart rate90 /minLengayle Harris LOCKS INSPECTOR Work Phone: 1(616)[address] [place], [place] 9812610-21-2025 10:57-0400 SaO2% (BldA) [Mass fraction]98 %Britt Harris LOCKS INSPECTOR Work Phone: 1(510)[facility] [place], [place] 4798210-21-2025 10:57-0400 Systolic blood vwyaqvdm788 mm[Hg]Britt Harris LOCKS INSPECTOR Work Phone: 1(758)[address] [place], [place] 9812608-13-2025 09:29-0400 Body ahvddj996.47 cmLengayle Harris LOCKS INSPECTOR Work Phone: 1(848)[address]08-13-2025 09:29-0400 Body mass index (BMI) [Ratio]28 kg/y6XnuvjjrvBritt Harris LOCKS INSPECTOR Work Phone: [facility]08-13-2025 09:29-0400 Body gvsdumpoqmy20.6 [degF]Britt Harris LOCKS INSPECTOR Work Phone: [facility]08-13-2025 09:29-0400 Body shxkte04.74 kgBritt Harris LOCKS INSPECTOR Work Phone: 1([phone]08-13-2025 09:29-0400 Diastolic blood ioliqwsx83 mm[Hg]Britt Harris LOCKS INSPECTOR Work Phone: 1(512)434-[address] [place], [place] 4798208-13-2025 09:290400 Heart rate91 /minBritt Harris LOCKS INSPECTOR Work Phone: 1(783)452-[address] [place], [place] 4798208-13-2025 09:29-0400 SaO2% (BldA) [Mass fraction]97 %Britt Harris LOCKS INSPECTOR Work Phone: 1([phone]08-13-2025 09:29-0400 Systolic blood ampcxdui703 mm[Hg]Britt Harris LOCKS INSPECTOR Work Phone: 1(687)207-89[facility]06-04-2025 14:13-0400 Body luocnd971.47 cmMelissa Marker DO Work Phone: 8(450)396-[address] [place], [place] 9858706-04-2025 14:13-0400 Body mass index (BMI) [Ratio]28.5 kg/r0Oodmlck Marker DO Work Phone: 1(870)113-[address] [place], [place] 9858706-04-2025 14:13-0400 Body .11 kgMelissa Marker DO Work Phone: 1(174)818-[address] [place], [place] 9858706-04-2025 14:13-0400 Diastolic blood tcgkpouz63 mm[Hg]Jennifer Marker DO Work Phone: 3(280)642-[address] [place], [place] 9858706-04-2025 14:13-0400 Heart rate71 /minMelissa Marker DO Work Phone: [facility]06-04-2025 14:13-0400 Systolic blood mm[Hg]Jennifer Marker DO Work Phone: [facility]03-31-2025 15:29-0400 Body mass index (BMI) [Ratio]28.55 kg/z3Kbutr Nova DO Work Phone: 1(147)408-[address] [place], [place] [address]Iisbgnlgng05-64-3321 15:29-0400Body .19 kgCorey Nova DO Work Phone: 1(744)760-[address] [place], [place] [address]Uvozcvsgzw75-11-8465 15:29-0400Diastolic blood duwpdclr18 mm[Hg]Asif Nova DO Work Phone: 1(870)869-[address] [place], [place] [address]Syhjpoetoe15-14-2977 15:29-0400Systolic blood fauhruec662 mm[Hg]Asif Nova DO Work Phone: 1(624)532-[address] [place], [place] [address]Rkuzhkthaa41-05-0614 15:03-0500Body mass index (BMI) [Ratio]28.86 kg/o7Fljbz Nova DO Work Phone: 1(829)853-[address] [place], [place] [address]Pjghljpabd56-08-3884 15:03-0500Body fpxofw25.09 kgCorey Nova DO Work Phone: 1(950)892-[facility] HospitalKdfatmmabe54-16-6403 15:03-0500Diastolic blood ceyviplp49 mm[Hg]Asif Nova DO Work Phone: 1(706)861-[address] [place], [place] [address]Vygclevpiz27-67-7007 15:03-0500Systolic blood slmobgxm693 mm[Hg]Asif Nova DO Work Phone: 1(391)269-[address] [place], [place] [address]Dasrqypiaz64-78-0618 14:28-0500Body mass index (BMI) [Ratio]29.32 kg/m3Vlmqu Nova DO Work Phone: 1(444)530-[address] [place], [place] [address]Ihzglkpozz64-47-7171 14:28-0500Body gzpyoq32.45 kgCorey Nova DO Work Phone: 1(058)554-[address] [place], [place] [address]Uisyvobenx26-75-2138 14:28-0500Diastolic blood mvgpmomv06 mm[Hg]Asif Nova DO Work Phone: 1(754)253-[facility] HospitalTgxotcitfv41-91-3176 14:28-0500Systolic blood ugfhhggx367 mm[Hg]Asif Nova DO Work Phone: 1(901)525-[facility] MountainFitzgib[facility] HospitalCxawyfkgbu50-67-8140 13:15-0500Body mass index (BMI) [Ratio]29.19 kg/m2Amy Eliceo PA Work Phone: 1(531)034-[address] [place], [place] [address]Rphvoaqhkq97-66-5541 13:15-0500Body .09 kgAmy Eliceo PA Work Phone: 1(035)345-[facility] HospitalDmvsmselex18-18-4236 13:15-0500Diastolic blood olmfyflw54 mm[Hg]Kirsty Eliceo PA Work Phone: 1(178)913-[facility] HospitalBnpapjfqov20-94-5185 13:15-0500Systolic blood segfnnrj055 mm[Hg]Kirsty Fenton PA Work Phone: 1(218)142-[address] [place], [place] [address]Lasnqvarcy56-77-9588 12:18-0500Body mass index (BMI) [Ratio]29.8 kg/t4Zgmmw Nova DO Work Phone: 1(297)933-[address] [place], [place] [address]Cgagsretri64-98-2405 12:18-0500Body wglrqi13.91 kgCorey Nova DO Work Phone: 1(447)792-[facility] HospitalTlxldzulrw31-00-5066 12:18-0500Diastolic blood txivzzhb55 mm[Hg]Asif Nova DO Work Phone: 1(225)428-[address] [place], [place] [address]Prlgcmwsev37-29-5272 12:18-0500Systolic blood kurtojec829 mm[Hg]Asif Nova DO Work Phone: 1(175)999-[address] [place], [place] [address]Twznvcirvf22-02-4754 13:24-0500Body mass index (BMI) [Ratio]30.38 kg/m2Amy Eliceo PA Work Phone: 1(465)672-[address] [place], [place] [address]Razzbiradh87-49-4859 13:24-0500Body yhaqtp55.63 kgAmy Eliceo PA Work Phone: 1(618)922-[facility] HospitalPuwuycbqvc56-21-5207 13:24-0500Diastolic blood saedmlbj47 mm[Hg]Kirsty RAHMAN Work Phone: 1(555)825-[address] [place], [place] [address]Ntmckodmxx07-42-1381 13:24-0500Systolic blood mmkhlroc038 mm[Hg]Kirsty RAHMAN Work Phone: 1(024)[facility] [place], [place] [address]Uqmpfzheyo20-61-6391 16:52-0500Body mass index (BMI) [Ratio]30.62 kg/j1Jhqsa Nova DO Work Phone: 1(155)[facility] [place], [place] [address]Jjtvpvqcwe37-39-5814 16:52-0500Body sixrgo14.35 kgCorey Nova DO Work Phone: 1(817)[facility] [place], [place] [address]Eyrpobuxit76-59-9714 16:52-0500Diastolic blood ghxdrxam13 mm[Hg]Asif Nova DO Work Phone: 1(455)[facility] [place], [place] [address]Gobykihdrr93-96-9842 16:52-0500Systolic blood nddpkayt520 mm[Hg]Asif Nova DO Work Phone: 1(618)[facility] [place], [place] [address]Xjkuocumny58-60-2688 16:03-0500Body mass index (BMI) [Ratio]30.11 kg/y2Qyixu Nova DO Work Phone: 1(019)[facility] [place], [place] [address]Epviejhjyh70-97-5823 16:03-0500Body sjlyaw44.81 kgCorey Nova DO Work Phone: 1(360)[facility] [place], [place] [address]Ckzgcsvznm46-43-9868 16:03-0500Diastolic blood yybtqqud15 mm[Hg]Asif Nova DO Work Phone: 1(161)[facility] [place], [place] [address]Nbyhxouvdp55-63-0741 16:03-0500Systolic blood ytoiqgee041 mm[Hg]Asif Nova DO Work Phone: 1(369)[address] [place], [place] 3957410-02-2024 15:50-0400Body mass index (BMI) [Ratio]29.97 kg/c7Ajgjh Nova DO Work Phone: 1(199)[facility] [place], [place] [address]Zksxlclirw51-87-1569 15:50-0400Body acaebt45.41 kgCorey Nova DO Work Phone: 1(021)[facility] [place], [place] [address]Stkuasvlsm58-95-3933 15:50-0400Diastolic blood wmoxjdxg52 mm[Hg]Asif Nova DO Work Phone: [facility] HospitalFoaradiarq50-67-2868 15:50-0400Systolic blood lxyxdjeq363 mm[Hg]Asif Nova DO Work Phone: [facility] HospitalBlswwljmwn49-52-4014 11:17-0400Body mass index (BMI) [Ratio]30.33 kg/m2Kirsty Fenton JOSIAH Work Phone: [facility] HospitalEtrujlohwv69-23-3060 11:17-0400Body mkwirm99.49 kgKirsty Fenton JOSIAH Work Phone: [facility] HospitalMwgdnpabqy24-82-9401 11:17-0400Diastolic blood bntuynum21 mm[Hg]Kirsty Silverjasbir RAHMAN Work Phone: [facility] HospitalKwezojdiup38-11-9234 11:17-0400Systolic blood lvxvkohk258 mm[Hg]Kirsty Silverjasbir RAHMAN Work Phone: [facility] HospitalXpueljbyyl34-17-7012 09:34-0400Body mass index (BMI) [Ratio]30.41 kg/m2[facility]09-06-2024 09:34-0400Body awpaju31.72 kgSouthPo[facility]09-06-2024 09:34-0400Diastolic blood nqcnbwme05 mm[Hg][facility]09-06-2024 09:34-0400Systolic blood rpdgpklo082 mm[Hg][facility]12-20-2023 13:45-0500Body height 164.47 cmCameron Ditty Other [employer] Other 12-20-2023 13:45-0500Body mass index (BMI) [Ratio]29.6 kg/b6Dglowir Elinortty Other [employer] Other 12-20-2023 13:45-0500Body brjzya97.06 kgCameroloretta ElinorEmotive Other [employer] Other 12-20-2023 13:45-0500Diastolic blood jvfjyxbv79 mm[Hg] Ben Ditty Other [employer] Other 12-20-2023 13:45-0500Systolic blood quzhtpnb289 mm[Hg] Ben Ditty Other [employer] Other 03-10-2023 17:07-0500Body yiacvh89.8336 kgDR ASIF BHATT .The [facility]edoComment on above:Performed By: #### RPRQ #### [facility] [address] [place] [address] Dr. Jerry Samuel12-02-2022 11:15-0500Body jnbizi904.47 cmCameron Ditty Other [facility] [employer] Other 12-02-2022 11:15-0500Body mass index (BMI) [Ratio] 29.01 kg/i4Llfjhcm Ditty Other [employer] Other 12-02-2022 11:15-0500Body sqejqe86.47 kgCameron Ditty Other [employer] Other 12-02-2022 11:15-0500Diastolic blood pvahhrek32 mm[Hg] Ben Ditty Other [employer] Other 12-02-2022 11:15-0500Systolic blood xsdwgajc275 mm[Hg] Ben Ditty Other [employer] Other Encounters Encounter DateEncounter TypeCare ProviderFacilityStart: 01-25-2025 End: 53-51-3308jxlnnmljdcZnspdaom Rohrbacher LOCKS INSPECTOR [facility] Phone: [facility] 01-25-2025 End: 47-11-7225Nutgaun encounter procedureBritt Harris LOCKS INSPECTOR [facility] Work Phone: Start: 12-17-2024 End: 74-22-4041Kgzavsupy Result EncounterCorey Nova DO Work Phone: noms External Department UnsolicitedStart: 12-17-2024 End: 94-31-7092Zcsecatyi Result EncounterCorey Nova DO Work Phone: noms External Department UnsolicitedStart: 12-17-2024 Non-patient / Non-visitCorey [facility] Work Phone: Start: 67-92-4380Ise-patient / Non-visitBritt Harris LOCKS INSPECTOR [facility] Work Phone: Start: 11-17-2024 End: 95-67-5549xhjpbhnvxnQqowtajl Rohrbacher LOCKS INSPECTOR Work Phone: [facility] Work Phone: Start: 11-17-2024 End: 25-73-5493Xasyczx encounter procedureBritt Harris APRN [facility] Work Phone: Start: 09-08-2024 End: 23-62-2748clhlcyplzoPuxuymy Marker DO Work Phone: [facility] Work Phone: Start: 09-08-2024 End: 86-85-7628Kdqbjpt encounter procedureMelissa Marker DO Work Phone: [facility] Work Phone: Start: 43-76-9323Zcl-patient / Non-visitMelissa Marker DO Work Phone: [facility] Work Phone: Start: 07-14-2024 End: 30-59-2286cpgdokjenkZoeqggs [facility] Work Phone: Start: 07-14-2024 End: 40-81-9417Yqmzroch ReferredMelissa Marker DO Work Phone: [facility] HospStart: 26-37-7484Alb-patient / Non-visitMelissa Marker DO Work Phone: [facility] Work Phone: Start: 07-05-2024 End: 30-65-3238uqkiofjbcvVIWXY FAZIONot AvailableStart: 07-05-2024 End: 10-84-1726Tpbhqd follow up visit related to original pxCorey Nova DO Work Phone: [facility] BCP OBComment on above:S/P ; AnxietyStart: 92-24-5926Tvj-patient / Non-visitMelissa Marker DO Work Phone: [facility] Work Phone: Start: 82-13-0121Gbh-patient / Non-visitMelissa Marker DO Work Phone: [facility] Work Phone: Start: 06-29-2024 End: 57-81-0517Qmsxzvfhg Result EncounterCorey Nova DO Work Phone: n[facility] External Department UnsolicitedStart: 06-29-2024 End: 37-12-7327Ntfwjixmn Result EncounterCorey Nova DO Work Phone: n[facility] External Department UnsolicitedStart: 06-29-2024 Non-patient / Non-visitMelissa Marker DO Work Phone: [facility] Work Phone: Start: 06-28-2024 End: 27-89-1398vtjyhdyfscGEASW FAZIONot AvailableStart: 05-83-5618Wyx-patient / Non-visitMelissa Marker DO Work Phone: [facility] Work Phone: Start: 06-21-2024 End: 78-24-3470Zokpchvbl Result EncounterAmy Eliceo RAHMAN Work Phone: [facility] External Department UnsolicitedStart: 06-21-2024 End: 74-04-5714Btshqpqmb Result EncounterAmy Eliceo RAHMAN Work Phone: noMS External Department UnsolicitedStart: 06-21-2024 End: 58-55-3334rcsnutqrxqNKJ ELICEONot AvailableStart: 06-07-2024 End: 84-78-1154izgunegkpzUONNX FAZIONot AvailableStart: 06-07-2024 End: 61-28-2505Cpydumaq flow sheetCorey Nova DO Work Phone: [facility] BCP OBComment on above:34 weeks gestation of ; Third trimester ; AnxietyStart: 06-07-2024 End: 55-60-3043Fszyyr flowsheetCorey Nova DO Work Phone: [facility] BCP OBStart: 06-07-2024 End: 66-30-9353Xzhgyl flowsheetCorey Nova DO Work Phone: [facility] BCP OBStart: 05-24-2024 End: 01-39-7119Xwzrnldg flow sheetCorey Nova DO Work Phone: [facility] BCP OBComment on above:32 weeks gestation of ; Third trimester ; AnxietyStart: 05-24-2024 End: 47-98-6826azdnqtnyvsIADXK FAZIONot AvailableStart: 05-11-2024 End: 13-52-8607Zdoqwf Chris RAHMAN Work Phone: [facility] BCP OBStart: 05-11-2024 End: 99-95-7268Xakfuc Chris RAHMAN Work Phone: [facility] BCP OBStart: 05-11-2024 End: 17-42-4508aaarhxbaivQZT Abigail AvailableStart: 05-11-2024 End: 13-68-9899Jalvgwac flow sheetKirsty RAHMAN Work Phone: [facility] BCP OBComment on above: size inconsistent with dates (Primary Dx); 30 weeks gestation of ; Third trimester pregnancyStart: 04-27-2024 End: 85-08-3100Nswkrd flowsheetCorey Nova DO Work Phone: [facility] BCP OBStart: 04-27-2024 End: 00-03-3891Wxrqsp flowsheetCorey Nova DO Work Phone: [facility] BCP OBStart: 04-27-2024 End: 97-08-8057jqipmlzgxqOAORZ FAZIONot AvailableStart: 04-27-2024 End: 77-22-8944Oriybayu flow sheetCorey Nova DO Work Phone: [facility] BCP OBComment on above:Second trimester ; 28 weeks gestation of pregnancyStart: 04-15-2024 End: 98-32-4504Iquuekbzp encounterAlana Mcclendon GENERAL MERCHANDISE SALESPERSON Work Phone: [facility] BCP OBStart: 04-10-2024 End: 78-51-7369Ithzrifrb Result EncounterKirsty RAHMAN Work Phone: [facility] External Department UnsolicitedStart: 04-10-2024 End: 04-25-2375Jhxnnpggv Result EncounterKirsty RAHMAN Work Phone: [facility] External Department UnsolicitedStart: 04-05-2024 End: 94-35-7400Ccmhyq Chris RAHMAN Work Phone: [facility] BCP OBStart: 04-05-2024 End: 84-85-6120Gyscae Chris RAHMAN Work Phone: [facility] BCP OBStart: 04-05-2024 End: 98-48-8889Scfymlth flow sheetAmy Eliceo PA Work Phone: NOMY BCP OBComment on above:25 weeks gestation of ; Second trimester ; Diabetes mellitus screeningStart: 04-05-2024 End: 28-20-1456gernghaebcOFS RAMEYNot AvailableStart: 03-08-2024 End: 80-97-9709faxyizivdtPOBUL FAZIONot AvailableStart: 03-08-2024 End: 97-56-1878Oszubwvc flow sheetCorey Nova DO Work Phone: [facility]S BCP OBComment on above:Second trimester ; 21 weeks gestation of pregnancyStart: 03-08-2024 End: 42-44-0034Asktuq flowsheetCorey Nova DO Work Phone: [facility] BCP OBStart: 03-08-2024 End: 97-04-5380Mfwgbl flowsheetCorey Nova DO Work Phone: NOQF BCP OBStart: 03-02-2024 End: 92-79-2693Lnkyhbdls Result EncounterCorey Nova DO Work Phone: noMS External Department UnsolicitedStart: 03-02-2024 End: 34-62-3470Yrrxdjrur Result EncounterCorey Nova DO Work Phone: [facility] External Department UnsolicitedStart: 02-18-2024 End: 85-46-3279Wqvpzmjdl Result EncounterCorey Nova DO Work Phone: noms External Department UnsolicitedStart: 02-18-2024 End: 22-17-8981Iuqsrqcpy Result EncounterCorey Nova DO Work Phone: noms External Department UnsolicitedStart: 02-09-2024 End: 06-77-7410Klkmmgn encounter procedureCorey Nova DO Work Phone: [facility]S HealthcareStart: 02-09-2024 End: 30-75-5272Hpfgcubt flow sheetCorey Nova DO Work Phone: noms BCP OBComment on above:Second trimester ; 17 weeks gestation of ; Well woman exam with routine gynecological exam; Exposure to STD; MSAFP (maternal serum alpha-fetoprotein) decreased; Screening, , for anatomic surveyStart: 02-09-2024 End: 19-22-4063hicaeejfcpOXAHZ FAZIONot AvailableStart: 02-09-2024 End: 42-00-1457Dvgtrn flowsheetCorey Nova DO Work Phone: noms BCP OBStart: 02-09-2024 End: 22-77-3588Gtguxw flowsheetCorey Nova DO Work Phone: noms BCP OBStart: 02-09-2024 End: 96-91-1698Obdmmlha Result EncounterAmy Eliceo PA Work Phone: noms External Department UnsolicitedStart: 01-08-2024 End: 52-10-4046Psisjcqrh Result EncounterCorey Nova DO Work Phone: noms External Department UnsolicitedStart: 01-08-2024 End: 13-82-0124Alpmchutf Result EncounterCorey Nova DO Work Phone: noms External Department UnsolicitedStart: 01-07-2024 End: 87-76-1990Jgnqeqot flow sheetCorey Nova DO Work Phone: noms [facility] OBComment on above:First trimester ; 12 weeks gestation of ; Nausea and vomiting during ; Dizziness; Constipation during in first trimesterStart: 01-07-2024 End: 00-35-1659kwqumkkpqoXTHYU FAZIONot AvailableStart: 01-07-2024 End: 58-35-6815Xcmyoe flowsheetCorey Nova DO Work Phone: noms BCP OBStart: 01-07-2024 End: 62-19-2567Fvcxsg flowsheetCorey Nova DO Work Phone: noms BCP OBStart: 12-22-2023 End: 48-88-5823Zppbpxgaf Result EncounterCorey Nova DO Work Phone: noms External Department UnsolicitedStart: 12-22-2023 End: 28-17-2020Wjkcesmfm Result EncounterCorey Nova DO Work Phone: noms External Department UnsolicitedStart: 12-17-2023 End: 86-27-2060Yizemf flowsheetKirsty RAHMAN Work Phone: noms BCP OBStart: 12-17-2023 End: 74-56-7876Ysskti flowsheetKirsty Fenton PA Work Phone: [facility] BCP OBStart: 12-17-2023 End: 03-47-7086Uqqjpyhr flow sheetKirsty Fenton PA Work Phone: noms BCP OBComment on above:First trimester Start: 12-17-2023 End: 65-51-3246hswjvihzzuHPJ ELICEONot AvailableStart: 12-12-2023 End: 26-94-4601Xqkajwnse Result EncounterCorey Nova DO Work Phone: noms External Department UnsolicitedStart: 12-12-2023 End: 36-65-2772Ojzhptrrx Result EncounterCorey Nova DO Work Phone: noms External Department UnsolicitedStart: 12-12-2023 End: 94-10-7595fyisjyaqkgPeof Bcp Ob Nova NurseNOMS BCP OBComment on above:GA: 4x3oVqbwc: 07-36-6224Nkbeyal encounter statusMelissa Marker DO Work Phone: [facility]art: 03-26-2023 End: 96-44-9781vbhsdkldqkZdolpzg [employer]itty Other [employer] Other Start: 91-89-2665Vdkagtg encounter procedureCameron DittyFPG GastroenterologyStart: 01-24-2023 End: 13-24-3510eokbxvxyueTlvrkbl Ditty Other [employer] Other Start: 96-90-9726Sjzgbuhgz encounterCameron DittyFPG GastroenterologyStart: 07-25-2022 End: 07-16-6870vxvrbyysnhQN ASIF NOVA .Facility:C5Zntvm: 07-02-2022 End: 09-27-2185qnaojzxgvbSB ASIF NOVA .Facility:C4Rnlhv: 06-12-2022 End: 16-91-1656totwidlwitTM ASIF NOVA .Facility:Q0Ibpma: 06-04-2022 End: 89-09-4222uyszkckainAO ASIF NOVA .Facility:F6Qaqml: 05-26-2022 End: 08-30-0097mbuxdelzmnWJZHUV TIN .Facility:J0Morgz: 05-02-2022 End: 17-66-4807ibshhjkyulZI ASIF NOVA .Facility:W0Jirrb: 04-19-2022 End: 55-29-9361fpikezdndrZWQ ELICEO .Facility:Y6Gpwhk: 04-04-2022 End: 62-52-2320lornkgbttaME ASIF NOVA .Facility:L7Rhmgu: 04-04-2022 End: 09-13-1387djvznfcqxtNGOS EBERTFacility:P3Jdzsa: 03-08-2022 End: 50-70-2571ellqmckvwgKostieq Ditty Other [employer] Other Start: 11-89-7687Tcbybhj encounter procedureCameron DittyFPG GastroenterologyStart: 03-07-2022 End: 45-41-1231cevvdwxsjxST ASIF NOVA .Facility:Q7Hbpex: 03-05-2022 End: 82-82-9185drzwtmhhunZPBG EBERTFacility:X6Sdgjs: 02-13-2022 End: 33-04-1793plncogiaygIWRL EBERTFacility:K9Girgx: 02-12-2022 End: 94-73-7450cfkrwbiyvfGXAE EBERTFacility:A3Hheea: 02-12-2022 End: 40-18-4021sqmirnitclGLXE EBERTFacility:S5Piysj: 11-12-2021 End: 65-76-5232uqhpxsbhvvRCXK EBERTFacility:T0Vnvpy: 11-06-2021 End: 82-67-0337czlsjfntftNlbx A Mikael LIGHTING SPECIALIST-CFacility:[facility]Start: 11-05-2021 End: 93-62-2930jnhnhiizjhPxpv A Mikael LIGHTING SPECIALIST-CFacility:[facility] Procedures DateProcedureProcedure DetailPerforming ClinicianStart: 53-42-2794ICT CBC WITH AUTO DIFFCorey Nova DO Work Phone: Start: 25-47-0076Tojqi cultureMelissa Marker DO Work Phone: start: 89-97-0921Qaqrd dip stick/tablet rgnt non-auto w/o micrscpCorey Nova DO Work Phone: Start: 22-21-7175SGZ UA (CLEAN/CATCH) DIRECTOR OF USER EXPERIENCE/MICRO IF IND.Asif Nova DO Work Phone: Start: 41-81-0178MNB MISCELLANEOUS TESTKirsty RAHMAN Work Phone: Start: 78-36-2377Caybv dip stick/tablet rgnt non-auto w/o micrscpCorey Nova DO Work Phone: Start: 58-12-1650Fmurh dip stick/tablet rgnt non-auto w/o micrscpCorey Nova DO Work Phone: Start: 16-38-2294Anugu dip stick/tablet rgnt non-auto w/o micrscpAmy Eliceo RAHMAN Work Phone: Start: 59-11-9577Zpgbr dip stick/tablet rgnt non-auto w/o micrscpCorey Nova DO Work Phone: Start: 16-76-2339VBS CBC WITH AUTO DIFFKirsty RAHMAN Work Phone: Start: 96-99-1351Hqoau dip stick/tablet rgnt non-auto w/o micrscpCorey Nova DO Work Phone: Start: 30-80-0362KV OB ANATOMYCorey Nova DO Work Phone: Start: 53-15-6054LB OB CERVICAL LENGTHCorey Nova DO Work Phone: Start: 08-82-2499EZS, SERUM, OPEN SPINA BIFIDACorey Nova DO Work Phone: Start: 42-41-6116Hknii dip stick/tablet rgnt non-auto w/o micrscpCorey Nova DO Work Phone: Start: 74-40-7231TDBMQPWLD VAGINITIS (HTRX)Kirsty RAHMAN Work Phone: Start: 12-14-3858NHO CBC WITH AUTO DIFFCorey Nova DO Work Phone: Start: 44-16-6490Xlsew dip stick/tablet rgnt non-auto w/o micrscpCorey Nova DO Work Phone: Start: 98-18-3587CVL CBC WITH AUTO DIFFCorey Nova DO Work Phone: Start: 54-57-6137Zgydm dip stick/tablet rgnt non-auto w/o micrscpAmy Eliceo RAHMAN Work Phone: Start: 18-30-0930MZ OB TRANSVAGINALCorey Nova DO Work Phone: Start: 28-60-9758Lnojb dip stick/tablet rgnt non-auto w/o micrscpCorey Nova DO Work Phone: Start: 67-85-9578Greu cerv/vag auto thin layer prep mnl screenCorey Nova DO Work Phone: H/O: sectionS/P C-sectionCorey Nova DO Work Phone: Plan of Treatment DateCare ActivityDetailAuthorStart: 08-09-2024 End: 04-78-3033eogpdhoaja29/05/2025 2:30 PM EDT Visit [facility] [address] [facility] [place] [address] Kirsty Fenton PA [address] [place] [address] [facility] BCP OBStart: 82-43-7385Oupqoncr identified in Urine by CultureUrine Culture [facility]ertart: 02-30-0973Wkvmq cultureUniversity Hospitals TriPoint Medical Centertart: 07-05-2024 End: 06-01-4346Pjfmztp encounter gtpjinkoq44/31/2025 3:00 PM EDT Routine [facility] [address] [facility] [place] [address] Asif Bhatt, [address] [place] [address] [place] [address] [facility] BCP OBStart: 06-21-2024 End: 82-86-2029Hgfkcne encounter vttimfxaz53/17/2025 1:50 PM EDT Routine [facility] [address] [place] [address] Kirsty Fenton PA [address] [place] [address] [facility] BCP OBStart: 06-07-2024 End: 06-68-6682Cjrrobq encounter gxgqdaqsh99/03/2025 2:40 PM EST Routine [facility] [address] [facility] [place] [address] Asif Bhatt, DO [address] [place] [address] [facility] BCP OBStart: 05-24-2024 End: 06-17-0992Kwhingm encounter gwfcvtoxo03/17/2025 2:40 PM EST Routine [facility] [address] [place] [phone] Asif Bhatt, DO [address] [place] [address] [facility] BCP OBStart: 05-24-2024 End: 06-59-0349Cxwsektdtrcs / ancillary services godwqntucr84/17/2025 2:00 PM EST Ancillary Procedure [facility] [address] [place] [phone] [facility] BCP OBStart: 05-11-2024 End: 88-36-3220OE for pregnancyUS OB follow up transabdominal approach Imaging Routine size inconsistent with dates Expected: 05/11/2024, Expires: 05/11/2025[facility] Work Phone: comment on above:Expected: 05/11/2024, Expires: 05/11/2025Start: 05-11-2024 End: 51-73-8456Jsrbnjh encounter kjozghkis95/04/2025 1:00 PM EST Routine [facility] [address] [place] [address] Asif Bhatt, DO [address] [facility] [place] [address] [facility] BCP OBStart: 04-27-2024 End: 57-69-0108Uxuxgap encounter vuhbolcxn16/21/2025 11:20 AM EST Routine [facility] [address] [place] [address] Asif Bhatt, DO [address] [place] [address] [place] [address] [facility] BCP OBStart: 04-05-2024 End: 70-73-0973WRR panel - Blood by Automated countCBC Lab Routine 25 weeks gestation of Second trimester Diabetes mellitus screening Expected: 04/05/2024 (Approximate), Expires: 04/05/2025[facility] Work Phone: comment on above:Expected: 04/05/2024 (Approximate), Expires: 04/05/2025Start: 04-05-2024 End: 50-74-2399Lpvhttsrges of glucose 1 hour after glucose challenge for glucose tolerance testGlucose tolerance, 1 hour Lab Routine 25 weeks gestation of Second trimester Diabetes mellitus screening Expected: 04/05/2024 (Approximate), Expires: 04/05/2025N[facility]S HealthcareComment on above: Expected: 04/05/2024 (Approximate), Expires: 04/05/2025Start: 04-05-2024 End: 24-49-7568Cllmtcv encounter procedureNOSUTTER [facility] OBComment on above:Arrived Start: 03-10-2024 End: 43-44-3046Wsnlz fetoprotein, maternalAlpha fetoprotein, maternal Lab Routine MSAFP (maternal serum alpha-fetoprotein) decreased Expected: 03/10/2024 (Approximate), Expires: 03/10/2024N[facility]S HealthcareComment on above:Expected: 03/10/2024 (Approximate), Expires: 03/10/2024Start: 03-08-2024 End: 71-36-1141Ztctwnh encounter /02/2024 3:50 PM EST Routine [facility] [address] [place] [phone] Asif Bhatt DO [address] [place], [place] [phone] [facility] BCP OBStart: 03-01-2024 End: 73-14-1950Ijxuadipelcr / ancillary services nnelkggyqy10/25/2024 1:30 PM EST Ancillary Procedure [facility] [address] [address] [address] [facility] BCP OBStart: 02-09-2024 End: 20-19-4790Baswdcw encounter procedureNOSUTTER LAK[facility]IDE [facility] OBComment on above:Arrived Start: 02-09-2024 End: 36-99-7795CE for pregnancyUS OB ANATOMY SINGLE W US OB CERVICAL LENGTH Imaging Routine Screening, , for anatomic survey Expected: 02/09/2024 (Approximate), Expires: 02/08/2025N[facility]S HealthcareComment on above: Expected: 02/09/2024 (Approximate), Expires: 02/08/2025Start: 01-07-2024 End: 03-14-3073Wgrgqsg encounter procedureNOSUTTER LAK[facility]IDE [facility] OBComment on above:Arrived Start: 12-17-2023 End: 46-82-5700Wsdzaqc encounter nxaxkamhz34/11/2024 11:00 AM EDT Office Visit [facility] [address] [place] [phone] Kirsty Fenton PA [address] [place] [address] ArrivedNOSUTTER LAKESIDE [facility] OBComment on above:ArrivedStart: 12-12-2023 End: 51-34-7833ZWG/RhABO/Rh Lab Routine Missed menses Expected: 12/12/2023 (Approximate), Expires: 12/11/2024[facility] HealthcareComment on above:Expected: 12/12/2023 (Approximate), Expires: 12/11/2024Start: 12-12-2023 End: 59-97-8791Wlcye type and Indirect antibody screen panel - BloodType and screen Lab Routine Missed menses Expected: 12/12/2023 (Approximate), Expires: 12/11/2024[facility] Work Phone: comment on above:Expected: 12/12/2023 (Approximate), Expires: 12/11/2024Start: 12-12-2023 End: 02-41-7264GG Pelvis transvaginalUS OB transvaginal Imaging Routine Missed menses Expected: 12/12/2023 (Approximate), Expires: 12/11/2024[facility] Healthcare Comment on above:Expected: 12/12/2023 (Approximate), Expires: 12/11/2024acteria identified in Urine by CultureUrine culture Microbiology Routine Missed menses Ordered: 12/12/2023[facility] HealthcareComment on above:Ordered: 4CBC W Auto Differential panel - BloodCBC and differential Lab Routine Nausea and vomiting during Dizziness Ordered: 01/07/2024[facility] Work Phone: Comment on above:Ordered: 01/07/2024BC W Auto Differential panel - BloodCBC and differential Lab Routine Missed menses Ordered: 12/12/2023[facility] HealthcareComment on above:Ordered: 12/12/2023HLAMYDIA TRACHOMATIS (GENITO/STI)CHLAMYDIA TRACHOMATIS (GENITO/STI) Lab Routine Exposure to STD Ordered: 02/09/2024[facility] HealthcareComment on above:Ordered: 02/09/2024 Hemoglobin A1c/Hemoglobin.total in BloodHemoglobin A1c Lab Routine Missed menses Ordered: 12/12/2023[facility] HealthcareComment on above:Ordered: 12/12/2023Hepatitis B virus surface Ag [Presence] in Serum or Plasma by ImmunoassayHepatitis B surface antigen Lab Routine Missed menses Ordered: 12/12/2023[facility] Healthcare Comment on above:Ordered: 12/12/2023Hepatitis C virus Ab [Presence] in Serum or Plasma by ImmunoassayHepatitis C antibody Lab Routine Missed menses Ordered: 12/12/2023[facility] HealthcareComment on above:Ordered: 12/12/2023HIV-1/HIV-2 antigen/antibody combination immunoassayHIV-1 and HIV-2 antibodies Lab Routine Missed menses Ordered: 12/12/2023[facility] HealthcareComment on above:Ordered: 12/12/2023Neisseria gonorrhoeae DNA [Presence] in Unspecified specimen by ELINOR with probe detectionNeisseria gonorrhea DNA probe, direct Lab Routine Exposure to STD Ordered: 02/09/2024[facility] HealthcareComment on above:Ordered: 02/09/2024 Reagin Ab [Presence] in Serum by RPRRPR Lab Routine Missed menses Ordered: 12/12/2023[facility] HealthcareComment on above:Ordered: 12/12/2023ubella antibody, IgGRubella antibody, IgG Lab Routine Missed menses Ordered: 12/12/2023[facility] HealthcareComment on above:Ordered: 12/12/2023SURESWAB(R) ADVANCED VAGINITIS PLUS, TMASURESWAB(R) ADVANCED VAGINITIS PLUS, TMA Pathology and Cytology Routine Exposure to STD Ordered: 02/09/2024[facility] Healthcare Work Phone: comment on above:Ordered: 02/09/2024[facility] Immunizations Immunization DateImmunizationNotesCare SztgnyryXfbpolwv09-30-1626xjiue papilloma virus vaccine, quadrivalentCameron Elinorvitaliy Other [facility] Payers DatePayer CategoryPayerPolicy [id number] Cross Blue Shield [id number] BCBS [id number] 2022-Present [phone] [address] [place] [address] [id number] [id number] 2..1.662677.3.579.2.718 [id number] 2..1.067035.3.579.2.37362-00-5325Xiamoys9462438 2..1.397396.3.579.2.49094-44-8194Uybswky7290519 2..1.572541.3.579.2.53860-03-2598Oekvyjk0820054 2..1.073436.3.579.2.63862-55-6013Zcsuqvw9512605 2.0.1.457258.3.579.2.84594-93-4260Hjwrzfs4625229 2..1.811632.3.579.2.03112-73-3379Whavamp3170101 2.0.1.362632.3.579.2.76326-66-6506Pghhqvk7068499 2.16.840.1.159544.3.579.2.82067-34-0351Foumacy7076254 2.16840.1.556213.3.579.2.05849-07-7767Usxplbw4115414 2.16840.1.458104.3.579.2.32564-18-1103Bgmdlhg1810319 2.16840.1.585281.3.579.2.13422-86-3946Kodloiw9598385 2.16840.1.054061.3.579.2.25574-76-5993Znfcqgk6366187 2.16840.1.942223.3.579.2.72760-38-8634Wliovuo1017884 2.16840.1.368732.3.579.2.75748-91-1943Sztsoxb4699563 2.16840.1.315298.3.579.2.12380-75-6871Vxytecb5591216 2.16840.1.374222.3.579.2.90090-75-5618Wctopos2016297 2.16840.1.008112.3.579.2.893859-70-8838Mshgkbc4061981 2.16840.1.898014.3.579.2.938062-65-1784Vodezda9863178 2.16840.1.970423.3.579.2.244279-49-5255Qilnqla2385247 2.16840.1.911040.3.579.2.710116-34-7904Orqlzkf2631423 2.16840.1.480728.3.579.2.050207-21-1564Olwwdit5148435 2.16840.1.185054.3.579.2.745327-64-8362Pxllqqz6289512 2.0.1.769206.3.579.2.467220-23-2243Usqefai2555248 2.0.1.390237.3.579.2.173456-36-8822Vcvwbab4160285 2.0.1.230326.3.579.2.741313-94-1343Aeaqedo0024826 2.0.1.357385.3.579.2.212032-52-2739Chytrby1346844 2.0.1.917260.3.579.2.103953-46-4502Vyrlqrs0211340 2.0.1.632074.3.579.2.852323-12-6002Mgstggk4673360 2..1.428910.3.579.2.271078-63-7015Dcbqcys9398070 2..1.662685.3.579.2.612129-60-4059Mcdl-ljt97-74-4470Usuqljh393659692 2..7.004162.34379931-37-2852Spdgvop715624414056 2..4.448502.4014-01-1959 OmycevpC1PZO930809873-32-5660Ywemmjp034909116045Qukdnax7121515 2..1.988082.3.579.2.555HwnrvtnZ5920007056 w1c30po3-tu6z-4n94-f67x-78891568rcskHhuxnal97233536 2..1.960129.3.579.2.531 Social History DateTypeDetailFacilityUnknown if ever smokedNoOhanae Other Start: 03-27-2023 End: 05-07-4857Mpr Assigned At BirthOhanae Other Start: 02-22-2021 End: 77-76-6896Pcyagpm smoking status NHISNever smoked tobaccoNOMS Healthcare Start: 12-55-1387Dwwwarn use and exposureSmokeless tobacco non-userNOMS HealthcareStart: 12-17-2023 End: 85-13-9987Cvpofpadb beverage intakeLifetime non-drinker (finding)[facility] HealthcareStart: 03-27-2023 End: 22-81-1619Excxkve of Social functionNOMS HealthcareStart: 10-27-2023 PregnancyNOMS HealthcareStart: 87-75-4418Oxa assigned at birthNot on fileNOCA HealthcareStart: 07-15-2024 End: 87-28-7274WfgPaqayy (finding)[facility] Centertart: 94-72-9913Uvh Assigned At [facility] Campustart: 48-40-7895WntFphdlyCYGW HealthcareNEGATED: Highlighted rowOhio State [facility] Clinical Notes 03-08-2022 to 11-17-2024 Note Date & LbuaGotsIrmmutqx95-58-6937 Evaluation note* Diagnosis Onset Date Resolution Status Admit Date Anxiety acuteAugust 2024 9:26amEasy bruisingacuteAugust 2024 9:26amHair thinningacuteAugust 2024 9:26amEasy bruisingacuteOctober 2024 10:56amIron deficiency anemiaacuteOctober 2024 10:56amRight upper quadrant painacuteOctober 2024 10:56am [facility] Work Phone: 1(792) 371-734206-04-2025 Evaluation note* Diagnosis Onset Date Resolution Status Admit Date Chronic GERD acuteJune 2024 2:10pmAnxietyacuteAugust 2024 9:26amEasy bruisingacute Magnet 2024 9:26amHair thinningacuteAugust 2024 9:26am [facility] Work Phone: 1(126) 373-693903-31-2025 History of Present illness Narrative* Peri Peterson, MATHEW - 07/05/2024 3:00 PM EDT Reason for Appointment: Patient ID: Carlos Adams is a 28 y.o. 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 Exam conducted with a human resources benefits specialist present. Vitals: Estimated body mass index is [...] Asif Bhatt DO documented in this encounterFitzgibbon HospitalWuoozeleqh97-25-5681 History of Present illness Narrative* Vicky Leyva LPN - 06/07/2024 2:40 PM EST Reason for Appointment: Patient ID: Carlos Adams is a 28 y.o. 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 Exam conducted with a human resources benefits specialist present. Vitals: Estimated body mass index is [...] Asif Bhatt DO documented in this encounterFitzgibbon [id number] History of Present illness Narrative* Vicky Leyva LPN - 05/24/2024 2:40 PM EST Reason for Appointment: Patient ID: Carlos Adams is a 28 y.o. 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/13/2022 Subcutaneous nodule 09/13/2022 Tinea pedis 09/13/2022 25 weeks gestation of 04/05/2024 Second trimester 04/05/2024 Resolved Ambulatory Problems Diagnosis Date Noted No Resolved Ambulatory Problems Past Medical History: Diagnosis Date Depression ([facility]) HISTORY PAST MEDICAL HISTORY SOCIAL HISTORY Past Medical History: Diagnosis Date Anxiety Depression ([facility]) Social History Tobacco Use Smoking [...] Asif Bhatt DO documented in this encounterFitzgibbon [id number] History of Present illness Narrative* JOSIAH Schilling - 05/11/2024 1:00 PM EST Reason for Appointment: Patient ID: Carlos Adams is a 28 y.o. female who presents [...] of: JOSIAH Schilling documented in this encounterFitzgibbon [id number] History of Present illness Narrative* Carmen Foster, GAY - 04/27/2024 11:20 AM EST Reason for Appointment: Patient ID: Carlos Adams is a 28 y.o. female who presents [...] infection 09/13/2022 Adjustment disorder with depressed mood ([facility]) 09/13/2022 Allergic rhinitis 09/13/2022 Anxiety [...] nursing note reviewed. Exam conducted with a human resources benefits specialist present. Vitals: Estimated body mass index is [...] Asif Bhatt DO documented in this encounterFitzgibbon [id number] Telephone encounter Note* Telephone Encounter - Alana Mcclendon LPN - 04/15/2024 4:43 PM EST Madhuri, my name is Carlos Adams. My birthday is 1995 and I was [...] do not know, but my phone numbers [phone], thank you, aurelio. I called pt to let her know that I would talk to Dr. Bhatt and see what he recommends. [facility] [id number] Miscellaneous Notes* Telephone Encounter - Alana Mcclendon LPN - 04/15/2024 4:43 PM EST Hello, my name is Carlos Adams. My birthday is 1995 and I was [...] do not know, but my phone numbers [phone], thank you, aurelio. I called pt to let her know that I would talk to Dr. Bhatt and see what he recommends. [facility] documented in this encounterFitzgibbon [id number] History of Present illness Narrative* JOSIAH Schilling - 04/05/2024 1:10 PM EST Reason for Appointment: Patient ID: Carlos Adams is a 28 y.o. 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/13/2022 Subcutaneous nodule 09/13/2022 Tinea pedis 09/13/2022 Resolved Ambulatory Problems Diagnosis Date Noted No Resolved Ambulatory Problems Past Medical History: Diagnosis Date Depression ([facility] [place]) HISTORY PAST MEDICAL HISTORY SOCIAL HISTORY Past Medical History: Diagnosis Date Anxiety Depression ([facility]) Social History Tobacco Use Smoking [...] of: JOSIAH Schilling documented in this encounterFitzgibbon [id number] History of Present illness Narrative* Vicky Leyva LPN - 03/08/2024 3:50 PM EST Reason for Appointment: Patient ID: Carlos Adams is a 28 y.o. 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 Exam conducted with a human resources benefits specialist present. Vitals: Estimated body mass index is [...] Asif Bhatt DO documented in this encounterFitzgibbon [id number] History of Present illness Narrative* Leah Raman MA - 02/09/2024 3:10 PM EST Reason for Appointment: Patient ID: Carlos Adams is a 28 y.o. 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 Exam conducted with a human resources benefits specialist present. Vitals: Estimated body mass index is [...] Vicky Leyva LPN on behalf of: Kirsty Briscoeally signed by Vicky Leyva LPN at 02/10/2024 10:30 AM EST documented in this encounterFitzgibbon [id number] History of Present illness Narrative* Carmen Foster LPN - 01/07/2024 3:10 PM EDT Reason for Appointment: Patient ID: Carlos Adams is a 28 y.o. 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 Exam conducted with a human resources benefits specialist present. Vitals: Estimated body mass index is [...] or undercooked meat, and stay away from [facility]. Patient hasbeen consulted regarding any further do's and don'ts of . Patient voiced understanding andall questions and concerns were answered. Orders Placed This Encounter Procedures Urine dip Follow Up: Patient is to return in 4 weeks for routine OB appointment. Documented by Carmen Foster LPN on behalf of: Kirsty Fenton PA-C documented in this encounterFitzgibbon [id number] History of Present illness Narrative* JOSIAH Schilling - 12/17/2023 11:00 AM EDT Reason for Appointment: Patient ID: Carlos Adams is a 28 y.o. female who presents [...] of: JOSIAH Schilling documented in this encounterFitzgibbon [id number] History of Present illness Narrative* Leah Raman MA - 12/12/2023 9:00 AM EDT Reason for Appointment: Patient ID: Carlos Adams is a 28 y.o. 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 Advised to have both and unity [...] by: Leah Raman MA documented in this encounterFitzgibbon [id number] Evaluation note* Encounter Date Diagnosis Assessment Notes [...] call office if she has no improvement [employer] Other 10-20-2023 Evaluation note* Encounter Date Diagnosis Assessment Notes Treatment Notes Treatment Clinical Notes Jan, Epigastric burning sensation (IC D-10 - R10.13) [employer] [facility] Other 12-02-2022 Evaluation note* Encounter Date Diagnosis Assessment Notes Treatment Notes Treatment Clinical Notes Mar, Nausea (ICD-10 - R11.0) Mar,Epigastric burning sensation (ICD-10 - R10.13) Mar,Lower abdominal pain (ICD-10 - R10.30) Mar,loating (ICD-10 - R14.0) Mar,Functional dyspepsia (ICD-10 - K30) Mar,GERD (gastroesophageal reflux disease) (ICD-10 - K21.9)CONTINUE PANTOPRAZOLE 40 MG DAILY CONTINUE LEVSIN NEEDED RTO 1 YR [employer] Other Evaluation note* Diagnosis First trimester state, [...] this encounter [facility]Evaluation noteNo assessment information availableDay[facility] Work Phone: Evaluation note* Diagnosis Onset Date Resolution Status Admit Date Chronic GERD acuteJune 2024 2:10pm [facility] Work Phone: History general Narrative - Reported* Type Description Date Medical History scoliosis Medical Historyhx of monoSurgical HistoryWisdom teeth x4 [facility] Other History general Narrative - Reported* Type Description Date Medical History scoliosis Medical Historyhx of monoSurgical HistoryWisdom teeth [id number] HistoryC section [facility] Other Hospital Discharge instructionsAmbulatory Orders* Referral to Hematology Time Frame: 01/25/25, Location: None Selected [facility] Work Phone: Reason for referral (narrative)No reason for referral information availableWilson Health Work Phone: Summary Purpose Family History [...] section and content) DATE CREATED AUTHOR 07/24/2022 [facility] DATE CREATED AUTHOR AUTHOR'S ORGANIZ ATION 08/08/[address] [facility] DATE CREATED AUTHOR AUTHOR'S ORGANIZ ATION 07/06/2024 [facility] DATE CREATED AUTHOR AUTHOR'S ORGANIZ ATION 08/05/2024 [facility] Care Teams (unrecognized sec tion and content) Team Status: Active Member Role Status Dates Britt Harris APRN LIGHTING SPECIALIST-C Primary Care Provider Active Start: June 21, 2024 [facility]illing[facility] ProviderActiveStart: June 21, 2024 Team Status: Active Member Role Status Dates Britt Harris APRN LIGHTING SPECIALIST-C Primary Care Provider Active Start: June 29, 2024 Tom Mccoy ProviderActiveStart: June 29, 2024 Team Status: Active Member Role Status Dates Britt Harris APRN LIGHTING SPECIALIST-C Primary Care Provider Active Start: June 30, 2024 Tom Mccoy ProviderActiveStart: June 30, 2024 Team Status: Active Member Role Status Dates Britt Harris APRN LIGHTING SPECIALIST-C Primary Care Provider Active Start: July 01, 2024 Tom Mccoy ProviderActiveStart: July 01, 2024 Team Status: Active Member Role Status Dates Britt Harris LOCKS INSPECTOR LIGHTING SPECIALIST-C Primary Care Provider Active Start: July 14, 2024 Jennifer Moe , DOAttending ProviderActiveStart: July 14, 2024 Team Status: Inactive Member Role Status Dates Jennifer Moe , DO Attending Provider Active Start: July 14, 2024 End: July 14, 2024 Team Status: Active Member Role Status Dates Britt Harris LOCKS INSPECTOR LIGHTING SPECIALIST-C Primary Care Provider Active Start: July 14, 2024 Jeannette Domingo CMAAttending ProviderActiveStart: July 14, 2024 Team Status: Active Member Role Status Dates Britt Steinachecarola LOCKS INSPECTOR LIGHTING SPECIALIST-C Primary Care Provider Active Team Status: Inactive Member Role Status Dates Britt Steinacher , LOCKS INSPECTOR LIGHTING SPECIALIST-C Primary Care Provider Active Start: September 08, 2024 End: September 08leticia Rose MDAttending ProviderActiveStart: September 08, 2024 End: September 08, 2024 Team Status: Inactive Member Role Status Dates Britt Steinacher LOCKS INSPECTOR LIGHTING SPECIALIST-C Primary Care Provider Active Start: November 17, 2024 End: November 17, 2024Britt Gordonrbacher , LOCKS INSPECTOR LIGHTING SPECIALIST-CAttending ProviderActive Start: November 17, 2024 End: November 17, 2024 Team Status: Active Member Role/Relationship Status Dates Britt Steinacher LOCKS INSPECTOR LIGHTING SPECIALIST-C Primary Care Provider Active Team Status: Inactive Member Role/Relationship Status Dates Britt Steinacher LOCKS INSPECTOR LIGHTING SPECIALIST-C Primary Care Provider Active Start: November 17, 2024 End: November 17, 2024Britt Gordonrbacher , LOCKS INSPECTOR LIGHTING SPECIALIST-CAttending ProviderActive Start: November 17, 2024 End: November 17, 2024 Team Status: Active Member Role/Relationship Status Dates Britt Steinacher LOCKS INSPECTOR LIGHTING SPECIALIST-C Primary Care Provider Active Start: November 19, 2024 Britt Steinacher , LOCKS INSPECTOR LIGHTING SPECIALIST-CAttending ProviderActiveStart: November 19, 2024 Team Status: Active Member Role/Relationship Status Dates Britt Steinacher , LOCKS INSPECTOR LIGHTING SPECIALIST-C Primary Care Provider Active Start: December 062024 Tom Mccoy ProviderActiveStart: December 17, 2024 Team Status: Inactive Member Role/Relationship Status Dates Britt Harris APRN LIGHTING SPECIALIST-C Primary Care Provider Active Start: January End: January 25, 2025Britt Harris APRN LIGHTING SPECIALIST-CAttending ProviderActive Start: January 25, 2025 End: January [...] BE BASED ON THE PRIMARY CLINICAL RECORDS. [employer] provides no warranty or guarantee of the accuracy or completeness of information in this document.
[2025-02-13 16:49] LABS: Hematocrit 38.5 % (36.0-48.0); Hemoglobin 12.5 g/dL (12.0-16.0); Immature Granulocytes Abs Auto 0.01 10^3/uL (0.00-0.03); Immature Granulocytes Pct Auto 0.2 % (0.0-0.5); Lymphocytes Absolute Auto 1.9 10^3/uL (1.2-3.8); Mean Corpuscular HGB Conc 32.5 g/dL (29.9-35.2); Mean Corpuscular Hemoglobin 28.1 pg (26.7-34.0); Mean Corpuscular Volume 86.5 fL (81.0-99.0); Platelet Count 224 10^3/uL (150-450); Red Blood Count 4.45 10^6/uL (4.20-5.40); White Blood Count 4.5 10^3/uL (4.0-11.0)
[2025-02-13 17:05] LABS: Anion Gap 14.9; Blood Urea Nitrogen 15.0 mg/dL (7.0-18.0); Calcium 8.8 mg/dL (8.5-10.1); Carbon Dioxide 25.8 mmol/L (21.0-32.0); Chloride 105 mmol/L (98-107); Estimated GFR (African America >60 (>=60 mL/min/1.73m^2); Estimated GFR (Non-African Ame >60 (>=60 mL/min/1.73m^2); Glucose 96 mg/dL (74-106); Potassium 3.7 mmol/L (3.5-5.1); Sodium 142 mmol/L (136-145)
--- NOTE | 2025-02-14 07:30 | ED.GENADUL1 ---
HPI HPI - General Adult General Chief complaint: Recheck/Abnormal Lab/Rx Stated complaint: Anemia Symptoms Time Seen by Provider: 02/13/25 15:54 Source: patient Mode of arrival: walk-in History of Present Illness HPI narrative: Patient is a 29-year-old female presenting to the emergency department for evaluation of chest pain. Patient states she has a history of iron deficiency anemia after she had a large amount of bleeding in June. She is on daily oral iron supplementation, and is scheduled to get her first IV iron infusion in a few days. She presents today because has been having intermittent episodes of left-sided chest pain, lightheadedness, nausea, and shortness of breath over the last 24 hours. She denies currently being , the first day of her menstrual cycle today. She denies history of DVT/PE, no hemoptysis, no leg swelling, no recent immobilizations or surgical procedures. She denies fevers, chills, or URI symptoms. She is otherwise healthy with no chronic medical conditions. She is not on OCPs. Related Data Home Medications ?Medication ?Instructions ?Recorded ?Confirmed citalopram 20 mg tablet (Celexa) 10 mg PO DAILY 10/11/22 02/13/25 Previous Rx's ?Medication ?Instructions ?Recorded meclizine 25 mg tablet 25 mg PO QID PRN dizziness #20 tabs 11/13/23 Allergies Allergy/AdvReac Type Severity Reaction Status Date / Time Penicillins AdvReac Intermediate rash Verified 02/13/25 16:01 Opioid HPI Opioid Management Most Recent Opioid Data: Last Pain Scale 5 07/02/24, 16:57 Ur Phencyclidine Scrn, (NEGATIVE) Negative 06/29/24, 03:15 Review of Systems ROS Status of ROS 10 or more systems reviewed and unremarkable except as noted in history and below [facility] Medical History (Updated 02/13/25 @ 17:01 by Zbigniew Lange DO) Blood transfusion without reported diagnosis ?Z51.89 - Encounter for other specified aftercare (ICD-10) Delayed hemorrhage ?O72.2 - Delayed and secondary hemorrhage (ICD-10) delivery delivered ?O82 - Encounter for delivery without indication (ICD-10) Gastritis ?K29.70 - Gastritis, unspecified, without bleeding (ICD-10) Depression ?F32.A - Depression, unspecified (ICD-10) Anxiety ?F41.9 - Anxiety disorder, unspecified (ICD-10) Surgical History (Updated 06/29/24 @ 05:40 by Ania Briseno) H/O wisdom tooth extraction ?K08.409 - Partial loss of teeth, unspecified cause, unspecified class (ICD-10) Family History (Updated 06/29/24 @ 05:43 by Ania Briseno) Grandmother Family history of cancer Family history of diabetes mellitus Grandfather Family history of myocardial infarction Family history of hypertension Other Family history of stroke Social History (Updated 11/08/22 @ 05:14 by Ivan Silverman) Within the past year, how often did you have a drink containing alcohol: never Within the past year, how often did you have six or more drinks on one occasion: never Score interpretation: A score less than 3 is consistent with normal alcohol consumption. Smoking status: Never smoker Non-prescribed substance use: denies use Highest level of school completed/degree received: Associate degree: academic program Are you now , , , , never or living with a partner: In a typical week, how many times do you talk on the telephone with family, friends, or neighbors: 3 or more times per week How often do you get together with friends or relatives: twice per week How often do you attend holiness or jain services: 4 or more times per year Do you belong to any clubs or organizations such as holiness groups unions, fraternal or athletic groups, or school groups: no Total score: 3 Score interpretation: A score of greater than or equal to 2 indicates the lowest level of social isolation. Little interest or pleasure in doing things: not at all Feeling down, depressed, or hopeless: not at all Feel stressed/tense/nervous/anxious/difficulty sleeping: only a little Do you think of yourself as: straight/heterosexual Gender Identity: female Exam Narrative Exam Narrative: CONSTITUTIONAL: Well-appearing, answering questions and following commands appropriately SKIN: Was warm and dry, no pallor. No rashes on the chest wall. EYES: No conjunctival pallor. EARS, NOSE, THROAT: Moist oral mucosa. No JVD. RESPIRATORY: Clear to auscultation bilaterally, no wheezes, crackles, or stridor, no use of accessory muscles CARDIOVASCULAR: Normal rate and regular rhythm. There is no S3, S4, murmur, rub GASTROINTESTINAL: Abdomen was soft, non-tender, and non-distended. There is no guarding or rebound tenderness MUSCULOSKELETAL: No lower extremity edema. NEUROLOGIC: Patient is awake and alert. Ambulates with a steady gait. Facies were symmetrical. Constitutional Vital Signs, click to edit/add: Last Vital Signs Temp 97.6 F 02/13/25 15:55 Pulse 69 02/13/25 15:55 Resp 15 02/13/25 15:55 BP 99/67 02/13/25 15:55 Pulse Ox 99 02/13/25 15:55 O2 Del Method Room Air 02/13/25 15:55 Course Vital Signs Vital signs: Vital Signs Temperature 97.6 F 02/13/25 15:55 Pulse Rate 69 02/13/25 15:55 Respiratory Rate 15 02/13/25 15:55 Blood Pressure 99/67 02/13/25 15:55 Pulse Oximetry 99 02/13/25 15:55 Oxygen Delivery Method Room Air 02/13/25 15:55 Temperature 97.6 F 02/13/25 15:55 Pulse Rate 69 02/13/25 15:55 Respiratory Rate 15 02/13/25 15:55 Blood Pressure 99/67 02/13/25 15:55 Pulse Oximetry 99 02/13/25 15:55 Oxygen Delivery Method Room Air 02/13/25 15:55 Medical Decision Making MDM Narrative Medical decision making narrative: Patient is a 29-year-old female presenting to the emergency department with intermittent episodes of chest pain and lightheadedness. Patient reports she has a history of iron deficiency anemia, scheduled to get her first IV iron infusion in the next few days, but is concerned that the anemia may be causing her symptoms. Her vital signs on arrival are within normal limits. She is afebrile and hemodynamically stable. Overall, the patient appears well and does not look pale/anemic. She has an unremarkable physical examination. Differential diagnosis includes symptomatic anemia, pneumonia, and less likely ACS or arrhythmia given her age/lack of risk factors. I did consider PE, however she is not on OCPs and using the PERC criteria, this can be ruled out. IV was established and laboratory studies were obtained. Chest x-ray independently reviewed/interpreted by myself demonstrated no acute cardiopulmonary process. Laboratory studies were unremarkable. No significant electrolyte or metabolic derangement. No evidence of acute kidney injury. No anemia, leukocytosis, or thrombocytopenia. She does not have a microcytic anemia to suggest severe iron deficiency. Troponin nonelevated. 12 Lead EKG: Normal sinus rhythm at a rate of 62. Normal axis. No ST segment elevations. QRS, MN, and QTc interval within normal limits. Final impression: normal sinus rhythm without evidence of acute myocardial ischemia On reevaluation, patient feels well and is asymptomatic. She is able to ambulate without symptoms of chest pain or presyncope. I do believe the patient is stable for discharge. They were instructed to follow up with her outpatient physicians as previously scheduled. Return precautions were given including any new or worsening symptoms. Patient understands and agrees to the plan. FINAL IMPRESSION: #Acute atypical chest pain #History of iron deficiency anemia DISPOSITION: Discharged home CONDITION: Good Lab Data Lab results reviewed: Yes I reviewed the patient's lab results Labs: Lab Results 02/13/25 Range/Units 16:35 WBC 4.5 (4.0-11.0) 10^3/uL RBC 4.45 (4.20-5.40) 10^6/uL Hgb 12.5 (12.0-16.0) g/dL Hct 38.5 (36.0-48.0) % MCV 86.5 (81.0-99.0) fL MCH 28.1 (26.7-34.0) pg MCHC 32.5 (29.9-35.2) g/dL RDW 12.8 (11.0-15.0) % Plt Count 224 (150-450) 10^3/uL MPV 9.7 (9.5-13.5) fL Neut % (Auto) 43.0 (43.0-75.0) % Lymph % (Auto) 43.6 (20.5-60.0) % [place] % (Auto) 10.8 (1.7-12.0) % Eos % (Auto) 2.0 (0.9-7.0) % Baso % (Auto) 0.4 (0.2-2.0) % Neut # (Auto) 1.9 (1.4-6.5) 10^3/uL Lymph # (Auto) 1.9 (1.2-3.8) 10^3/uL [place] # (Auto) 0.5 (0.3-0.8) 10^3/uL Eos # (Auto) 0.1 (0.0-0.7) 10^3/uL Baso # (Auto) 0.0 (0.0-0.1) 10^3/uL Abs Immat Gran (auto) 0.01 (0.00-0.03) 10^3/uL Imm/Tot Granulo (auto) 0.2 (0.0-0.5) % Sodium 142 (136-145) mmol/L Potassium 3.7 (3.5-5.1) mmol/L Chloride 105 (98-107) mmol/L Carbon Dioxide 25.8 (21.0-32.0) mmol/L Anion Gap 14.9 BUN 15.0 (7.0-18.0) mg/dL Creatinine 0.57 (0.55-1.02) mg/dL Est GFR ( Amer) >60 (>=60 mL/min/1.73m^2) Est GFR (Non-Af Amer) >60 (>=60 mL/min/1.73m^2) BUN/Creatinine Ratio 26.3 Glucose 96 (74-106) mg/dL Calcium 8.8 (8.5-10.1) mg/dL Troponin I High Sens <4.0 L (4.0-51.3) pg/mL Imaging Data Chest x-ray: Attestation: I personally reviewed and interpreted this imaging study as follows: Radiologist's impression: ITS Impressions Chest X-Ray 02/13/25 16:12 IMPRESSION: No acute cardiopulmonary pathology. Impression dictated by: Morgan Salter M.D. 02/13/2025 5:09 PM Dictation Location: [place] [address] Electronically authenticated by: [id number] Y Date: 02/13/2025 17:09 ECG Data Attestation: I personally reviewed and interpreted this ECG as follows: Discharge Plan Discharge Chief Complaint: Recheck/Abnormal Lab/Rx Clinical Impression: Chest pain Patient Disposition: Home, Self-Care Time of Disposition Decision: 17:01 Condition: Good Mode of Transportation: Private Vehicle Prescriptions / Home Meds: No Action citalopram [Celexa] 20 mg tablet 10 mg PO DAILY meclizine 25 mg tablet 25 mg PO QID PRN (Reason: dizziness) Qty: 20 0RF Print Language: Turkmen Instructions: Chest Pain (ED) Referrals: BRAULIO FUENTES [Primary Care Provider, Unknown] - 1 week Discharge Date/Time: 02/13/25 17:14
== END 2025-02-13 17:14 | disposition home or self-care (01) ==
PROVIDERS: Emergency Provider Student in an Organized Health Care Education/Training Program; PCP Nurse Practitioner Family
DX: R07.89 Other chest pain (principal); D64.9 Anemia, unspecified; R42 Dizziness and giddiness; R11.0 Nausea; R06.02 Shortness of breath
CPT/HCPCS: 36415; 71046; 80048; 84484; 85025; 93005; 99284; 99285

== ENCOUNTER 2025-02-21 14:27 | Outpatient (RCR) | payer BC, SELFPAY ==
[2025-02-08 11:31] LABS: Hematocrit 38.5 % (36.0-48.0); Hemoglobin 12.6 g/dL (12.0-16.0); Immature Granulocytes Abs Auto 0.00 10^3/uL (0.00-0.03); Immature Granulocytes Pct Auto 0.0 % (0.0-0.5); Lymphocytes Absolute Auto 1.6 10^3/uL (1.2-3.8); Mean Corpuscular HGB Conc 32.7 g/dL (29.9-35.2); Mean Corpuscular Hemoglobin 28.8 pg (26.7-34.0); Mean Corpuscular Volume 87.9 fL (81.0-99.0); Platelet Count 223 10^3/uL (150-450); Red Blood Count 4.38 10^6/uL (4.20-5.40); White Blood Count 4.0 10^3/uL (4.0-11.0)
[2025-02-08 12:12] LABS: Iron 28.0 ug/dL (50.0-170.0); Percent Iron Saturation 7.5 %; Total Iron Binding Capacity 371.0 ug/dL (250.0-450.0)
[2025-02-08 12:37] LABS: Ferritin 48.0 ng/mL (8.0-252.0); Folate 28.20 ng/mL (8.60-58.90)
[2025-02-09 04:09] LABS: Vitamin B12 467 pg/mL (232-1245)
[2025-02-14 14:15] VITALS: BP 104/65; PULSE 80; TEMP 36.7; O2SAT 98
[2025-02-21 14:35] VITALS: BP 108/69; PULSE 76; TEMP 36.6; O2SAT 98
== END 2025-03-06 23:59 | disposition home or self-care (01) ==
LOC: HEMC 14:27
PROVIDERS: PCP Nurse Practitioner Family; Visit Provider Internal Medicine Hematology & Oncology
DX: D50.9 Iron deficiency anemia, unspecified (principal); R23.3 Spontaneous ecchymoses; K90.9 Intestinal malabsorption, unspecified
CPT/HCPCS: 36415; 82306; 82607; 82728; 82746; 83540; 83550; 85025; 85245; 85246; 96365; G0463; Q0138

== ENCOUNTER 2025-03-23 10:33 | Outpatient (OUT) | payer BC, SELFPAY ==
--- OUTSIDE RECORDS SUMMARY | 2025-02-08 04:30 | XMS_ITS ---
Author Organization [facility] in [place] Address [address] [place] [address] Care Team Providers Care Circulating Process Inspector Name Role Phone None, Unknown or Primary Care Provider Unavailab Kaylee Shah Unavailable [phone] REASON FOR VISIT New PT Hem Encounters Encounter Location Date Provider Diagnosis [facility] [address] [place] [address] 02/08/2025 Kaylee Henry Plan Of Treatment No Information Progress Notes * Kari ADAMSrosemariecynthia JDOB: (29 yo F)Acc No.[id number]:02/08/2025 UNLOCKED PROGRESS NOTE Progress Notes Patient: Will FERNÁNDEZ :?Kaylee Lora M.D.:1995???Age:29 Y ???Sex:FemaleDate:02/08/2025Phone:[phone]:GLENN CELIS [id number]:Unknown or None Subjective: * Chief Complaints: * 1 . MD New PT Hem. * Medical History: Objective: * Vitals: Assessment: Plan: * Treatment: * * Electronic signature of Kaylee Henry MD, [id number] on 03/23/2025 at 08:45 AM ESTSign off status: PendingVisit Status:?PEN (Pending) * Provider: Cynthia Lora M.D. Date: 04/10/2024 Generated for Printing/Faxing/eTransmitting on:?03/23/2025 08:45 AM EST
--- OUTSIDE RECORDS SUMMARY | 2025-03-23 09:20 | XMS_ITS | Encounter Summary ---
Author Organization [facility] Address [address] [place] [address] Care Team Providers Care Print Controller Name Role Phone Britt Harris NP Primary Care Provider [phone] [phone] Reason for Visit * ReasonCommentsNew PatientPatient is here today to establish care with Cardiology for chest pain, POTSPOTSPer patient checking for POTSChest Pain DizzinessDizziness/lightheaded. Since . Patient was seen in ER a month ago for lightheadedness and chest painAnemiaIron infusion done, per patient bruising, fatigue, hair loss have resolved. Patient was advised to i ncrease sodium Encounter Details DateTypeDepartmentCare Team (Latest Contact Info)Yrtmvysvecb96/17/2025 9:20 AM ESTOffice Visit [facility] [address] [place] [address] Casey Mcgovern MD [address] [address] Chronic fatigue (Primary Dx); Orthostatic dizziness; Precordial pain Social History Tobacco UseTypesPacks/DayYears UsedDateSmoking Tobacco: NeverSmokeless Tobacco: Never Tobacco Cessation:Counseling Given: Not Answered CommentsUnknownSex and Gender InformationValueDate RecordedSex Assigned at FgkbfDwzvit72/03/2025 2:49 PM ESTLegal SrgUfuers35/29/2022 11:41 PM EDTGender YxvikfzfZgnvta81/03/2025 2:49 PM ESTSexual OrientationHeterosexual or Straight 03/09/2025 2:49 PM ESTdocumented as of this encounter Last Filed Vital Signs Vital SignReadingTime TakenCommentsBlood Ufkyronv447/6803/23/2025 9:31 AM EST Jmfwv036303/23/2025 9:31 AM ESTTemperature--Respiratory Rate--Oxygen Zsukdjdmih09% 03/23/2025 9:31 AM ESTInhaled Oxygen Concentration--Lfmpyg60 kg (183 lb) 03/23/2025 9:12 AM CYCLsawfy959 cm (5' 3 )03/23/2025 9:12 AM ESTBody Mass Index 32.42105/24/2024 9:12 AM ESTdocumented in this encounter Progress Notes * Casey Mcgovern MD - 03/23/2025 9:20 AM EST Subjective Patient ID: Will Shay is a 29 y.o. female who presents for New Patient (Patient is here today to establish care with Cardiology for chest pain, POTS), POTS (Per patient checking for POTS),Chest Pain, Dizziness (Dizziness/lightheaded. Since . Patient was seen in ER a month ago for lightheadedness and chest pain), and Anemia (Iron infusion done, per patient bruising, fatigue, hair loss have resolved. Patient was advised to increase sodium). Rough and Has had lightheadedness since the . Medicine (meclizine) for vertigo didn't help with lightheadedness. Lightheadedness occurs with bending over and picking up things (like toys), most of the time with bending over Has to sit down and can induce nausea Like dizziness Had low iron, got iron infusions, didn't help with dizziness Never symptoms recumbent With really sick, lost 30 lbs With , spinal didn't work with C section then had leak and needed a blood patch No chest pain with or after childbirth Chest Pain Associated symptoms include dizziness and shortness of breath. Pertinent negatives for past medical history include no seizures. Dizziness Associated symptoms include chest pain. Anemia Review of Systems Respiratory: Positive for chest tightness and shortness of breath. Negative for wheezing. Cardiovascular: Positive for chest pain. Gastrointestinal: Negative for blood in stool. Genitourinary: Negative for hematuria. Neurological: Positive for dizziness. Negative for seizures and syncope. Psychiatric/Behavioral: The patient is nervous/anxious. Objective Visit Vitals BP 102/68 (BP Location: Right arm, Patient Position: Standing) Pulse 78 Physical Exam Constitutional: Appearance: Normal appearance. She is normal weight. HENT: Head: Normocephalic and atraumatic. Cardiovascular: Rate and Rhythm: Normal rate and regular rhythm. Pulses: Normal pulses. Heart sounds: Normal heart sounds. Pulmonary: Effort: Pulmonary effort is normal. Breath sounds: Normal breath sounds. Abdominal: Palpations: Abdomen is soft. Skin: General: Skin is warm and dry. Neurological: Mental Status: She is alert and oriented to person, place, and time. Psychiatric: Mood and Affect: Mood normal. Behavior: Behavior normal. Thought Content: Thought content normal. Judgment: Judgment normal. Comments: Appears fatigued Assessment/Plan Mrs. Shay has clear orthostatic dizziness without a confirmed change in vital signs with change from lying to standing. This could be chronic fatigue (recent surgery, 2 small children) or the onset of POTS/NCS. With chest pain post , spontaneous dissection seems possible as is peripartum cardiomyopathy. Plan routine stress, echo for LVEF and tilt table study. Pending results will start flurinef 0.1 mgdaily to see if symptoms improve. Will also obtain random morning cortisol level to assess for [place]'s Diagnosis Plan 1. Chronic fatigue 2. Orthostatic dizziness 3. Precordial pain No orders of the defined types were placed in this encounter. No results found for this or any previous visit (from the past 36 hours). No follow-ups on file. documented in this encounter Plan of Treatment DateTypeDepartmentCare Team (Latest Contact Info)Dtltdejbunl04/27/2026 9:00 AM ESTOffice Visit [facility] [address] [place] [address] Casey Mcgovern MD [address] [place] [phone] documented as of this encounter Visit Diagnoses Diagnosis Chronic fatigue- Primary Other malaise and fatigue Orthostatic dizziness Precordial pain documented in this encounter Care Teams Team MemberRelationshipSpecialtyStart DateEnd Date Britt Harris NP [address] [place] [address] PCP - GeneralFamily Awukuxtu18/3/25documented as of this encounter
--- OUTSIDE RECORDS SUMMARY | 2025-03-23 10:37 | XMS_ITS | Encounter Summary ---
Author Organization [facility] Address [address] [place] [address] Care Team Providers Care Press Tender Long Goods Name Role Phone Britt Harris NP Primary Care Provider [phone] [phone] Reason for Referral * Imaging (Routine) - Pending ReviewSpecialtyDiagnoses / ProceduresReferred By ContactReferred To ContactCardiology Diagnoses Other chest pain Orthostatic dizziness Procedures Transthoracic echo (TTE) complete Casey Mcgovern MD [address] [place] [address] Phone: tel: fax: Referral IDStatusReasonStart DateExpiration DateVisits RequestedVisits [id number] Review Perform Procedure * Cardiac Stress Testing (Routine) - Pending ReviewSpecialtyDiagnoses / ProceduresReferred By ContactReferred To ContactCardiology Diagnoses Orthostatic dizziness Procedures Tilt table Casey Mcgovern MD [address] [place] [address] Phone: tel: fax: Referral IDStatusReasonStart DateExpiration DateVisits RequestedVisits [id number] Encounter Details DateTypeDepartmentCare Team (Latest Contact Info)Fqeuqhrodxv63/17/2025Orders Only [facility] [address] [place] [phone] Aneta Lyman MA Other chest pain (Primary Dx); Orthostatic dizziness; Fatigue, unspecified type Social History Tobacco UseTypesPacks/DayYears UsedDateSmoking Tobacco: NeverSmokeless Tobacco: NeverCommentsUnknownSex and Gender InformationValueDate RecordedSex Assigned at HdrolXkielq70/03/2025 2:49 PM ESTLegal FgfCowhar34/29/2022 11:41 PM EDTGender WagazlrlKeaiwx07/03/2025 2:49 PM ESTSexual OrientationHeterosexual or Waqlmqnj45/03/2025 2:49 PM ESTdocumented as of this encounter Plan of Treatment DateTypeDepartmentCare Team (Latest Contact Info)Zsufaulwiht20/27/2026 9:00 AM ESTOffice Visit [facility] [address] [place] [address] Casey Mcgovern MD [address] [place] [phone] NameTypePriorityAssociated DiagnosesOrder ScheduleCortisolLabRoutine Fatigue, unspecified type Expected: 03/23/2025 (Approximate), Expires: 03/23/2026Routine Stress (Treadmill Only)Cardiac ServicesRoutine Other chest pain Expected: 03/23/2025 (Approximate), Expires: 03/23/2027Tilt tableCardiac ServicesRoutine Orthostatic dizziness Expected: 03/23/2025 (Approximate), Expires: 03/23/2027Transthoracic echo (TTE) completeEchocardiographyRoutine Other chest pain Orthostatic dizziness Expected: 03/23/2025 (Approximate), Expires: 03/23/2027documented as of this encounter Visit Diagnoses Diagnosis Other chest pain- Primary Orthostatic dizziness Fatigue, unspecified type documented in this encounter Care Teams Team MemberRelationshipSpecialtyStart DateEnd Date Britt Harris NP [address] [place] [address] PCP - GeneralFamily Qnztgcon35/3/25documented as of this encounter
--- OUTSIDE RECORDS SUMMARY | 2025-03-23 10:37 | XMS_ITS | Patient Health Record ---
Author Organization [facility] [place] Address [address] [place] [address] Care Team Providers Care Workforce Management Manager Name Role Phone None, Unknown or Primary Care Provider Unavailab Kaylee Shah Unavailable [phone] Allergies Allergen (clinical drug ingredient) Drug/Non Drug [...] alcohol in the p ast year? No Mettaq7FwfkwcjwsgcmzrJrotlcpl Problems Problem Type SNOMED Code ICD Code Onset Dates Problem Status W/U Status Risk Notes Problem Obesity due to exces s calories (625308131) Other obesity due to excess calories (E66.09) ActiveconfirmedProblemGeneralized anxiety disorder (41372064)CONY (generalized anxiety disorder) (F41.1)ActiveconfirmedProblemChronic fatigue syndrome (77511829)Chronic fatigue (R53.82)ActiveconfirmedProblemBody mass index 30+ - obesity (929262127)Body mass index (BMI) of 31.0-31.9 in adult (Z68.31)Active confirmedProblemDepression (092460558)Other depression (F32.89)Activeconfirmed ProblemPremenstrual tension syndrome (64524066)PMDD (premenstrual dysphoric disorder) (F32.81)Activeconfirmed Encounters Encounter Location Date Provider Diagnosis [facility] [address] [place] [address] 02/08/2025 Kaylee Elaine Plan Of Treatment No Information Insurance Providers Payer Name Payer Address Payer Phone Subscriber Number Group Number Insured Name Patient Relationship to Insured Coverage Start Date Coverage End Date AN[employer]M ACCESS PPO PLUS LOCAL PLAN [address] [place] [address] [id number] Viky Shay - patient is the insured Medical (General) History Medical History History ICD Code acne scoliosisSurgical History Surgery Date(Month/Year) wisdom teeth 2013 Hospitalization History Reason Date(Month/Year) [facility] 11/11/17
--- OUTSIDE RECORDS SUMMARY | 2025-03-23 10:37 | XMS_ITS | Clinical Summary ---
Author Organization [facility] Address [address] [place] [address] Care Team Providers Care Athletic Monitor Name Role Phone Britt Harris NP Primary Care Provider Allergies Active AllergyReactionsCriticalityNoted AfygDjnepizlQizqiscfx28/30/2023 OrmqigfhpczPhlpz58/30/2690ZgjbxzzwiuqNwqiGpm43/30/2023 Medications MedicationSigDispense QuantityRefillsLast FilledStart DateEnd DateStatus pantoprazole (ProtoNix) 40 MG EC tablet Take 40 mg by mouth in the morning. Take before meals. Do not crush, chew, or split..Active citalopram (CeleXA) 20 MG tablet Indications:AnxietyTake 1 tablet (20 mg) by mouth Daily 30 tablet 110506Active Active Problems ProblemNoted DateDiagnosed Date25 weeks gestation of ([facility]) 04/05/2024Second trimester ([facility])4Acid jssdey9309/13/2022 Acne09/13/2022cquired /09/2023cute upper respiratory infection 09/13/2022djustment disorder with depressed mood09/13/2022llergic rhinitis 09/13/20225394Usblwuj13/09/2023rthralgia of multiple oaltke7409/13/2022ysmenorrhea 09/13/2022Family history of thyroid xxufyju5609/13/20225511Zzfiyrmjzgas50/09/2023Low back pain09/13/2022Opportunistic urckdpl7309/13/2022Subcutaneous cfgybn1309/13/2022 Tinea pedis09/13/2022 Family History Medical HistoryRelationNameCommentsMental illnessMotherMelanomaNeg HxRelation NameStatusCommentsFatherAliveMotherAlive Social History Tobacco UseTypesPacks/DayYears UsedDateSmoking Tobacco: NeverSmokeless Tobacco: Never Tobacco Cessation:Counseling Given: Not Answered Alcohol UseStandard Drinks/WeekCommentsNever0 (1 standard drink = 0.6 oz pure alcohol)CommentsNoSex and Gender InformationValueDate RecordedSex Assigned at BirthNot on fileLegal GslVsltqa67/15/2023 7:14 PM EDTGender Identity Not on fileSexual OrientationNot on file Last Filed Vital Signs Vital SignReadingTime TakenCommentsBlood Jbgujevh903/78007/05/2024 3:29 PM EDT Tbffe07354/21/2023 10:31 AM ESTpt c/o hfsfjjeFjnwdnftpwe73.7 ??C (98 ??F) 03/27/2023 10:31 AM ESTRespiratory Rate--Oxygen Hlxzxhyojk91%03/27/2023 10:31 AM ESTInhaled Oxygen Concentration--Quqrnl58.2 kg (187 lb 12.8 oz)07/05/2024 3:29 PM KXAFoqilf725.7 cm (5' 8 )12/25/2022 10:53 AM EDTBody Mass Index28.55 12/25/2022 10:53 AM EDT Plan of Treatment DateTypeDepartmentCare Team (Latest Contact Info)Zyoifcmqlkr05/18/2026 1:00 PM ESTClinical Support [facility] [address] [facility] [address] [place] [phone] Molly Gupta, [facility] [address] [place] [address] 05/31/2025 1:10 PM ESTOffice Visit [facility] [address] [facility] [address] [place] [phone] Sarina Shelton MD [address] [facility] [address] [place] [address] Insurance Care Teams Team MemberRelationshipSpecialtyStart DateEnd Date Britt Harris NP [facility] [facility] [place] [address] PCP - GeneralFascly Iotwzvht62/21/25
--- OUTSIDE RECORDS SUMMARY | 2025-03-23 10:37 | XMS_ITS | Clinical Summary ---
Author Organization [facility] Address [address] [place] [address] Care Team Providers Care Concreting Supervisor Name Role Phone Britt Harris NP Primary Care Provider [phone] Allergies Active AllergyReactionsCriticalityNoted SndqApnpzjrfKhbjhgzihXyzhzum81/30/2023 GnrksudGcguuwk47/17/0237XrsmiskGgqtxmn38/17/8474HbpntshelhjMucur75/30/2023 LxogqbobcfxBalxGze37/07/2018 Medications MedicationSigDispense QuantityRefillsLast FilledStart DateEnd DateStatus meclizine (Antivert) 25 mg tablet Take 25 mg by mouth if needed in the morning, at noon, and at bedtime.01/30/2024 Active esomeprazole (NexIUM) [address] capsule Take 40 mg by mouth before breakfast. Do not open capsule.Active fludrocortisone (Florinef) 0.1 mg tablet Indications:Chronic fatigue,Orthostatic dizzinessTake 1 tablet (0.1 mg) by mouth in the morning. 30 tablet 111516Active Active Problems ProblemNoted DateDiagnosed DateAbdominal pain03/22/2025 Overview (03/22/2025): Problem List clean-up per request of Phys. EHR Cmte Atypical chest pain03/22/20252314Qiduyxzxakzg73/16/3391Qiwyzmhg72/16/2025 Overview (03/22/2025): Problem List clean-up per request of Phys. EHR Cmte Easy tfmbjusm82/16/8759Iqrcwdy36/16/2025Hair eqehlgim54/16/2025Iron deficiency pvjauj5403/22/2025Irregular awctzw8103/22/2025Dyspepsia and disorder of function of rssozlk6803/22/2025 Overview (03/22/2025): Problem List clean-up per request of Phys. EHR Cmte Right upper quadrant pain03/22/20253161Rpdxgis34/16/2025Vitamin D deficiency 03/22/2025Wellness uofifyketbn56/16/202525 weeks gestation of 04/05/2024Acne09/13/2022cquired jpghiiqmc85/09/2023cute upper respiratory peulxurof62/09/2023djustment disorder with depressed mood09/13/2022llergic civvaxxx84/09/0206Ucznrbc59/09/2023rthralgia of multiple ierywy6309/13/2022 Nshtnelyvanx16/09/2023Family history of thyroid ablbygr2809/13/2022Hematochezia 09/13/2022Low back pain09/13/2022Opportunistic kezwutd2309/13/2022Subcutaneous zylcrc3909/13/2022Tinea pedis09/13/2022 Encounters DateTypeDepartmentCare FtlbDyfedomqlct40/17/2025 9:20 AM ESTOffice Visit [facility] [address] [place] [address] Casey Mcgovern MD Chronic fatigue (Primary Dx); Orthostatic dizziness; Precordial pain03/23/2025Orders Only [facility] [address] [place] [address] Aneta Lyman MA Other chest pain (Primary Dx); Orthostatic dizziness; Fatigue, unspecified typefrom Last 3 Months Family History RelationNameStatusCommentsBrotherAliveFatherAliveMotherAliveSisterAlive Social History Tobacco UseTypesPacks/DayYears UsedDateSmoking Tobacco: NeverSmokeless Tobacco: Never Tobacco Cessation:Counseling Given: Not Answered CommentsUnknownSex and Gender InformationValueDate RecordedSex Assigned at TqsymKrwxqn61/03/2025 2:49 PM ESTLegal ImuKfqfeg43/29/2022 11:41 PM EDTGender LbmrmecmDcadrk88/03/2025 2:49 PM ESTSexual OrientationHeterosexual or Straight 03/09/2025 2:49 PM EST Last Filed Vital Signs Vital SignReadingTime TakenCommentsBlood Qgczxtkk211/6803/23/2025 9:31 AM EST Zcsyc046303/23/2025 9:31 AM ESTTemperature--Respiratory Rate--Oxygen Xxvwrickgf51% 03/23/2025 9:31 AM ESTInhaled Oxygen Concentration--Sxtxjw13 kg (183 lb) 03/23/2025 9:12 AM MMRVpufyx737 cm (5' 3 )03/23/2025 9:12 AM ESTBody Mass Index 32.42105/24/2024 9:12 AM EST Plan of Treatment DateTypeDepartmentCare Team (Latest Contact Info)Rvsjmltbmdp13/27/2026 9:00 AM ESTOffice Visit [facility] [address] [place] [address] Casey Mcgovern MD [address] [place] [phone] Health MaintenanceDue DateLast DoneCommentsDepression Evinbivzw72/26/2009 Varicella Vaccines (1 of 2 - 13+ 2-dose series)2009HPV Vaccines (2 - 3- dose series)/07/2014Pap Smear2017Adult Lrdljza9410/30/2018COVID- 19 Vaccine ( - season)2024Influenza Vaccine (#1)2024Zoster Vaccines (1 of 2)2046HIB VaccinesAged OutNo longer eligible based on patient's age to complete this topicIPV VaccinesAged OutNo longer eligible based on patient's age to complete this topicMeningococcal B VaccineAged OutNo longer eligible based on patient's age to complete this topicMeningococcal VaccineAged OutNo longer eligible based on patient's age to complete this topicPneumococcal Vaccine: Pediatrics (0 to 5 Years) and At-Risk Patients (6 to 64 Years)Aged Out No longer eligible based on patient's age to complete this topicRotavirus VaccinesAged OutNo longer eligible based on patient's age to complete this topic Insurance Care Teams Team MemberRelationshipSpecialtyStart DateEnd Date Britt Harris NP [address] [place] [address] PCP - GeneralFamily Acwawjvf69/3/25
== END 2025-03-23 10:34 | disposition home or self-care (01) ==
LOC: LAB 10:34
PROVIDERS: PCP Nurse Practitioner Family; Visit Provider Internal Medicine Cardiovascular Disease
DX: R53.83 Other fatigue (principal)
CPT/HCPCS: 36415; 82533

== ENCOUNTER 2025-03-23 10:37 | Outpatient (OUT) | payer BC, SELFPAY ==
[2025-03-23 11:02] LABS: Hematocrit 38.4 % (36.0-48.0); Hemoglobin 12.5 g/dL (12.0-16.0); Immature Granulocytes Abs Auto 0.01 10^3/uL (0.00-0.03); Immature Granulocytes Pct Auto 0.2 % (0.0-0.5); Lymphocytes Absolute Auto 1.7 10^3/uL (1.2-3.8); Mean Corpuscular HGB Conc 32.6 g/dL (29.9-35.2); Mean Corpuscular Hemoglobin 29.1 pg (26.7-34.0); Mean Corpuscular Volume 89.3 fL (81.0-99.0); Platelet Count 215 10^3/uL (150-450); Red Blood Count 4.30 10^6/uL (4.20-5.40); White Blood Count 5.7 10^3/uL (4.0-11.0)
[2025-03-23 12:23] LABS: Iron 112.0 ug/dL (50.0-170.0); Percent Iron Saturation 37.3 %; Total Iron Binding Capacity 300.0 ug/dL (250.0-450.0)
[2025-03-23 12:37] LABS: Ferritin 334.0 ng/mL (8.0-252.0)
== END 2025-03-23 10:38 | disposition home or self-care (01) ==
LOC: LAB 10:38
PROVIDERS: PCP Nurse Practitioner Family; Visit Provider Internal Medicine Hematology & Oncology
DX: R23.3 Spontaneous ecchymoses (principal); D50.9 Iron deficiency anemia, unspecified; K90.9 Intestinal malabsorption, unspecified; R53.83 Other fatigue
CPT/HCPCS: 36415; 82533; 82728; 83540; 83550; 85025

== ENCOUNTER 2025-04-01 09:37 | Outpatient (OUT) | payer BC, SELFPAY ==
--- OUTSIDE RECORDS SUMMARY | 2025-02-08 04:30 | XMS_ITS ---
Author Organization [facility] in [place] Address [address] [place] [address] Care Team Providers Care Content Assistant Name Role Phone None, Unknown or Primary Care Provider Unavailab Kaylee Shah Unavailable [phone] REASON FOR VISIT New PT Hem Encounters Encounter Location Date Provider Diagnosis [facility] [address] [place] [address] 02/08/2025 Kaylee Henry Plan Of Treatment No Information Progress Notes * Kari ADAMSrosemariecynthia JDOB: (29 yo F)Acc No.[id number]:02/08/2025 UNLOCKED PROGRESS NOTE Progress Notes Patient: Will FERNÁNDEZ :?Kaylee Lora M.D.:1995???Age:29 Y ???Sex:FemaleDate:02/08/2025Phone:[phone]:GLENN CELIS [id number]:Unknown or None Subjective: * Chief Complaints: * 1 . MD New PT Hem. * Medical History: Objective: * Vitals: Assessment: Plan: * Treatment: * * Electronic signature of Kaylee Henry MD, [id number] on 04/01/2025 at 09:41 AM ESTSign off status: PendingVisit Status:?PEN (Pending) * Provider: Cynthia Lora M.D. Date: 04/10/2024 Generated for Printing/Faxing/eTransmitting on:?04/01/2025 09:41 AM EST
--- OUTSIDE RECORDS SUMMARY | 2025-03-23 09:20 | XMS_ITS | Encounter Summary ---
Author Organization [facility] Address [address] [place] [address] Care Team Providers Care Teletype Mechanic Name Role Phone Britt Harris NP Primary Care Provider [phone] Reason for Visit * ReasonCommentsNew PatientPatient is here today to establish care with Cardiology for chest pain, POTSPOTSPer patient checking for POTSChest Pain DizzinessDizziness/lightheaded. Since . Patient was seen in ER a month ago for lightheadedness and chest painAnemiaIron infusion done, per patient bruising, fatigue, hair loss have resolved. Patient was advised to i ncrease sodium Encounter Details DateTypeDepartmentCare Team (Latest Contact Info)Bmxvhzhqqvx96/17/2025 9:20 AM ESTOffice Visit [facility] [address] [place] [address] Casey Mcgovern MD [address] [place] [address] Chronic fatigue (Primary Dx); Orthostatic dizziness; Precordial pain Social History Tobacco UseTypesPacks/DayYears UsedDateSmoking Tobacco: NeverSmokeless Tobacco: Never Tobacco Cessation:Counseling Given: Not Answered CommentsUnknownSex and Gender InformationValueDate RecordedSex Assigned at YjdibHmqahi23/03/2025 2:49 PM ESTLegal PwnWmpcug40/29/2022 11:41 PM EDTGender IkijpxmrAqvaxe51/03/2025 2:49 PM ESTSexual OrientationHeterosexual or Straight 03/09/2025 2:49 PM ESTdocumented as of this encounter Last Filed Vital Signs Vital SignReadingTime TakenCommentsBlood Hirunpcx826/6803/23/2025 9:31 AM EST Qwvzi707103/23/2025 9:31 AM ESTTemperature--Respiratory Rate--Oxygen Laryngmudj61% 03/23/2025 9:31 AM ESTInhaled Oxygen Concentration--Wfexbd27 kg (183 lb) 03/23/2025 9:12 AM VIRBwjnba105 cm (5' 3 )03/23/2025 9:12 AM ESTBody [...] random morning cortisol level to assess for [place]'s Diagnosis Plan 1. Chronic fatigue 2. Orthostatic dizziness 3. Precordial pain No orders of the defined types were placed in this encounter. No results found for this or any previous visit (from the past 36 hours). No follow-ups on file. documented in this encounter Plan of Treatment DateTypeDepartmentCare Team (Latest Contact Info)Ntvqlzbeagn28/27/2026 9:00 AM ESTOffice Visit [facility] [address] [place] [address] Casey Mcgovern MD [address] [place] [phone] documented as of this encounter Visit Diagnoses Diagnosis Chronic fatigue- Primary Other malaise and fatigue Orthostatic dizziness Precordial pain documented in this encounter Care Teams Team MemberRelationshipSpecialtyStart DateEnd Date Britt Harris NP [address] [place] [address] PCP - GeneralFamily Jestdpdp09/3/25documented as of this encounter
--- OUTSIDE RECORDS SUMMARY | 2025-04-01 09:41 | XMS_ITS | Clinical Summary ---
Author Organization [facility] Address [address] [place] [address] Care Team Providers Care Photo Stylist Name Role Phone Britt Harris NP Primary Care Provider Allergies Active AllergyReactionsCriticalityNoted DsuaWbfopwrqRixhzctav19/30/2023 AhxmgqaowevFrsbi90/30/2172CmpflbbxncdRxakYtq52/30/2023 Medications MedicationSigDispense QuantityRefillsLast FilledStart DateEnd DateStatus pantoprazole (ProtoNix) 40 MG EC tablet Take 40 mg by mouth in the morning. Take before meals. Do not crush, chew, or split..Active citalopram (CeleXA) 20 MG tablet Indications:AnxietyTake 1 tablet (20 mg) by mouth Daily 30 tablet 110506Active Active Problems ProblemNoted DateDiagnosed Date25 weeks gestation of ([facility]) 04/05/2024Second trimester ([facility])4Acid ccfayy5009/13/2022 Acne09/13/2022cquired zteoeagvf08/09/2023cute upper respiratory infection 09/13/2022djustment disorder with depressed mood09/13/2022llergic rhinitis 09/13/20224600Avkqeuj35/09/2023rthralgia of multiple lnuahp1609/13/2022ysmenorrhea 09/13/2022Family history of thyroid scwvdej5509/13/20224907Bdgcbpvacgxv24/09/2023Low back pain09/13/2022Opportunistic wkkfeze0509/13/2022Subcutaneous lpgstf0109/13/2022 Tinea pedis09/13/2022 Family History Medical HistoryRelationNameCommentsMental illnessMotherMelanomaNeg HxRelation NameStatusCommentsFatherAliveMotherAlive Social History Tobacco UseTypesPacks/DayYears UsedDateSmoking Tobacco: NeverSmokeless Tobacco: Never Tobacco Cessation:Counseling Given: Not Answered Alcohol UseStandard Drinks/WeekCommentsNever0 (1 standard drink = 0.6 oz pure alcohol)CommentsNoSex and Gender InformationValueDate RecordedSex Assigned at BirthNot on fileLegal QxqOcniph42/15/2023 7:14 PM EDTGender Identity Not on fileSexual OrientationNot on file Last Filed Vital Signs Vital SignReadingTime TakenCommentsBlood Horfwddl028/78007/05/2024 3:29 PM EDT Wfyjh72199/21/2023 10:31 AM ESTpt c/o kcyugccOmgnsraxwdd67.7 ??C (98 ??F) 03/27/2023 10:31 AM ESTRespiratory Rate--Oxygen Xxpehdgkam23%03/27/2023 10:31 AM ESTInhaled Oxygen Concentration--Tetmtw41.2 kg (187 lb 12.8 oz)07/05/2024 3:29 PM KVSJqwaxz303.7 cm (5' 8 )12/25/2022 10:53 AM EDTBody Mass Index28.55 12/25/2022 10:53 AM EDT Plan of Treatment DateTypeDepartmentCare Team (Latest Contact Info)Bwiqcavxcjx58/18/2026 1:00 PM ESTClinical Support [facility] [address] [facility] [address] [place] [phone] Molly Gupta, [facility] [address] [place] [address] 05/31/2025 1:10 PM ESTOffice Visit [facility] [address] [facility] [address] [place] [phone] Sarina Shelton MD [address] [facility] [address] [place] [address] Insurance Care Teams Team MemberRelationshipSpecialtyStart DateEnd Date Britt Harris NP [facility] [facility] [place] [address] PCP - GeneralFanmly Bnxoisvq69/21/25
--- OUTSIDE RECORDS SUMMARY | 2025-04-01 09:41 | XMS_ITS | Patient Health Record ---
Author Organization [facility] [place] Address [address] [place] [address] Care Team Providers Care Cryptologic Linguist Name Role Phone None, Unknown or Primary Care Provider Unavailab Kaylee Shah Unavailable [phone] Allergies Allergen (clinical drug ingredient) Drug/Non Drug [...] alcohol in the p ast year? No Mmawdn8DyuxlwrhhktfcqXwphrwry Problems Problem Type SNOMED Code ICD Code Onset Dates Problem Status W/U Status Risk Notes Problem Obesity due to exces s calories (149815674) Other obesity due to excess calories (E66.09) ActiveconfirmedProblemGeneralized anxiety disorder (99923535)CONY (generalized anxiety disorder) (F41.1)ActiveconfirmedProblemChronic fatigue syndrome (69006409)Chronic fatigue (R53.82)ActiveconfirmedProblemBody mass index 30+ - obesity (444995361)Body mass index (BMI) of 31.0-31.9 in adult (Z68.31)Active confirmedProblemDepression (228566243)Other depression (F32.89)Activeconfirmed ProblemPremenstrual tension syndrome (50923152)PMDD (premenstrual dysphoric disorder) (F32.81)Activeconfirmed Encounters Encounter Location Date Provider Diagnosis [facility] [address] [place] [address] 02/08/2025 Kaylee Elaine Plan Of Treatment No Information Insurance Providers Payer Name Payer Address Payer Phone Subscriber Number Group Number Insured Name Patient Relationship to Insured Coverage Start Date Coverage End Date [employer] ACCESS PPO PLUS LOCAL PLAN [address] [place] [address] [id number] Viky Shay - patient is the insured Medical (General) History Medical History History ICD Code acne scoliosisSurgical History Surgery Date(Month/Year) wisdom teeth 2013 Hospitalization History Reason Date(Month/Year) [facility] 11/11/17
--- OUTSIDE RECORDS SUMMARY | 2025-04-01 09:41 | XMS_ITS | Encounter Summary ---
Author Organization [facility] Address [address] [place] [address] Care Team Providers Care Furnace Attendant Name Role Phone Britt Harris NP Primary Care Provider [phone] Reason for Referral * Imaging (Routine) - Pending ReviewSpecialtyDiagnoses / ProceduresReferred By ContactReferred To ContactCardiology Diagnoses Other chest pain Orthostatic dizziness Procedures Transthoracic echo (TTE) complete Casey Mcgovern MD [address] [place] [address] Phone: tel: fax: Referral IDStatusReasonStart DateExpiration DateVisits RequestedVisits [id number] Review Perform Procedure * Cardiac Stress Testing (Routine) - Pending ReviewSpecialtyDiagnoses / ProceduresReferred By ContactReferred To ContactCardiology Diagnoses Orthostatic dizziness Procedures Tilt table Casey Mcgovern MD [address] [place] [address] Phone: tel: fax: Referral IDStatusReasonStart DateExpiration DateVisits RequestedVisits [id number] Encounter Details DateTypeDepartmentCare Team (Latest Contact Info)Mizvvojxxza95/17/2025Orders Only [facility] [address] [place] [phone] Aneta Lyman MA Other chest pain (Primary Dx); Orthostatic dizziness; Fatigue, unspecified type Social History Tobacco UseTypesPacks/DayYears UsedDateSmoking Tobacco: NeverSmokeless Tobacco: NeverCommentsUnknownSex and Gender InformationValueDate RecordedSex Assigned at VyikuKkvtxu39/03/2025 2:49 PM ESTLegal BqiEahlgh76/29/2022 11:41 PM EDTGender JhjsptlzKehghm99/03/2025 2:49 PM ESTSexual OrientationHeterosexual or Igmwhsny46/03/2025 2:49 PM ESTdocumented as of this encounter Plan of Treatment DateTypeDepartmentCare Team (Latest Contact Info)Gtencmoigtp04/27/2026 9:00 AM ESTOffice Visit [facility] [address] [place] [address] Casey Mcgovern MD [address] [place] [phone] NameTypePriorityAssociated DiagnosesOrder ScheduleCortisolLabRoutine Fatigue, unspecified type Expected: [...] MemberRelationshipSpecialtyStart DateEnd Date Britt Harris NP [address] [place] [address] PCP - GeneralFamily Liiiffry75/3/25documented as of this encounter
--- OUTSIDE RECORDS SUMMARY | 2025-04-01 09:41 | XMS_ITS | Clinical Summary ---
Author Organization [facility] Address [address] [place] [address] Care Team Providers Care Meat Clerk Name Role Phone Britt Harris NP Primary Care Provider [phone] Allergies Active AllergyReactionsCriticalityNoted VmcsRjkrbwuuNjkezpbnmSaeaftm17/30/2023 JsuscrlBuitbhg38/17/2533PjjikfbCgdtyhv12/17/4485RaqthgtluzfPbxze55/30/2023 TuogxysmezbHbcvTqh75/07/2018 Medications MedicationSigDispense QuantityRefillsLast FilledStart DateEnd DateStatus meclizine [...] request of Phys. EHR Cmte Atypical chest pain03/22/20250086Qwjqvfpvxqle93/16/0541Tnuffdrh51/16/2025 Overview (03/22/2025): Problem List clean-up per request of Phys. EHR Cmte Easy nhdvrdyf03/16/8174Kyokryj98/16/2025Hair uvllepxv57/16/2025Iron deficiency ooeyyc9403/22/2025Irregular dcwdht7103/22/2025Dyspepsia and disorder of function of vtywsut6703/22/2025 Overview (03/22/2025): Problem List clean-up per request of Phys. EHR Cmte Right upper quadrant pain03/22/20257472Hxjbeoq19/16/2025Vitamin D deficiency 03/22/2025Wellness pnkufhfvgbw47/16/202525 weeks gestation of 04/05/2024Acne09/13/2022cquired cluqclbyi48/09/2023cute upper respiratory guzwaqshd18/09/2023djustment disorder with depressed mood09/13/2022llergic vylkdgmd41/09/3225Maalmvf26/09/2023rthralgia of multiple yzkkfw1709/13/2022 Rrnstczicqcr52/09/2023Family history of thyroid krnneyf4109/13/2022Hematochezia 09/13/2022Low back pain09/13/2022Opportunistic mtqtrot6909/13/2022Subcutaneous krekas1609/13/2022Tinea pedis09/13/2022 Encounters DateTypeDepartmentCare KmmbHowwqrdccaq90/17/2025 9:20 AM ESTOffice Visit [facility] [address] [place] [address] Casey Mcgovern MD Chronic fatigue (Primary Dx); Orthostatic dizziness; Precordial pain03/23/2025Orders Only [facility] [address] [place] [address] Aneta Lyman MA Other chest pain (Primary Dx); Orthostatic dizziness; Fatigue, unspecified typefrom Last 3 Months Family History RelationNameStatusCommentsBrotherAliveFatherAliveMotherAliveSisterAlive Social History Tobacco UseTypesPacks/DayYears UsedDateSmoking Tobacco: NeverSmokeless Tobacco: Never Tobacco Cessation:Counseling Given: Not Answered CommentsUnknownSex and Gender InformationValueDate RecordedSex Assigned at HjlbtHlbebu92/03/2025 2:49 PM ESTLegal EvmTchloo43/29/2022 11:41 PM EDTGender EttyvtqyLakyvq20/03/2025 2:49 PM ESTSexual OrientationHeterosexual or Straight 03/09/2025 2:49 PM EST Last Filed Vital Signs Vital SignReadingTime TakenCommentsBlood Rqorqxwi653/6803/23/2025 9:31 AM EST Oxjrk625603/23/2025 9:31 AM ESTTemperature--Respiratory Rate--Oxygen Lwurceitax28% 03/23/2025 9:31 AM ESTInhaled Oxygen Concentration--Wkawqr05 kg (183 lb) 03/23/2025 9:12 AM REEUmosvt960 cm (5' 3 )03/23/2025 9:12 AM ESTBody Mass Index 32.42105/24/2024 9:12 AM EST Plan of Treatment DateTypeDepartmentCare Team (Latest Contact Info)Wttdzbbjrwg78/27/2026 9:00 AM ESTOffice Visit [facility] [address] [place] [address] Casey Mcgovern MD [address] [place] [phone] Health MaintenanceDue DateLast DoneCommentsDepression Zigledrdf69/26/2009 Varicella Vaccines (1 of 2 - 13+ 2-dose series)2009HPV Vaccines (2 - 3- dose series)/07/2014Pap Smear2017Adult Ewfdden6510/30/2018COVID- 19 Vaccine ( - season)2024Influenza Vaccine (#1)2024Zoster [...] MemberRelationshipSpecialtyStart DateEnd Date Britt Harris NP [address] [place] [address] PCP - GeneralFamily Umzcuddm76/3/25
--- NOTE | 2025-04-01 10:00 | CA_ITS ---
Patient Name: CARLOS ADAMS MR#: [id number] : 1995 Exam Date: 04/01/2025 Ordering Doctor: ISAAC BARRETO ECHOCARDIOGRAM REPORT PROCEDURE: CA ECHO DOPPLER COMPLETE INDICATIONS: Chest pain, dizziness COMPARISON: None. DESCRIPTION: COMPLETE ECHOCARDIOGRAM Real-time transthoracic echocardiography with 2D, M-mode, spectral and color flow Doppler performed. QUALITY: Technical quality was good. LEFT VENTRICLE: Normal chamber size. Normal left ventricular wall thickness. Estimated left ventricular ejection fraction is 55-60%. LV EF: Normal left ventricular ejection fraction, (>55%). DIASTOLIC: Normal diastolic function. ATRIAL SEPTUM: Visually appears intact. LEFT ATRIUM: Normal chamber size. RIGHT ATRIUM: Normal chamber size. RIGHT VENTRICLE: Normal chamber size. Normal right ventricular systolic function. TRICUSPID VALVE: Normal mobility and thickness. No stenosis with trivial regurgitation. No evidence of pulmonary hypertension. RVSP 20 mmHg MITRAL VALVE: Normal mobility and thickness. No evidence of mitral valve stenosis. There is no mitral annular calcification. No mitral regurgitation. AORTIC VALVE: Normal trileaflet appearance. No visible sclerosis. Normal leaflet mobility. No evidence of aortic valve stenosis. No aortic regurgitation. AORTIC ROOT: Normal diameter and appearance, measuring 3.4 cm. Ascending aorta is normal in size, measuring 3.0 cm. PULMONIC VALVE: Normal thickness and mobility. No stenosis. No regurgitation. PERICARDIUM: No evidence of pericardial effusion. IVC: Collapses with inspiration. PLEURA: CONCLUSION: 1. Normal ventricular size and systolic function. Estimated LVEF is 55-60%. 2. Normal diastolic function. 3. No significant valvular dysfunction. 4. Normal right-sided pressures. Adult Echocardiography Procedure Report Left Ventricle LVEDD (3.7 - 5.6 cm): 4.65 cm LVESD (2.2 - 4.0 cm): 3.27 cm LVIVS thickness (0.6 - 1.2 cm): 0.73 cm LVPW thickness (0.5 - 1.0 cm): 1.06 cm e': 0.14 m/s E - e': 4.83 LVOT Max Gradient: 2.30 mm[Hg] LVOT Area (cm2): 0.76 m/s Peak Velocity (LVOT): 0.76 m/s Mean Velocity (LVOT): 0.50 m/s LVOT Diameter 2.31 cm Left Ventricular Ejection Fraction: 55-60 % Left Atrium LA Volume Index (2D A2C): 20.95 ml/m2 Left Atrium Systolic Dimension: 2.71 cm Mitral Valve MV E to A Ratio: 1.35 Mitral Valve A-Wave Peak Velocity: 0.50 m/s Mitral Valve E-Wave Peak Velocity: 0.67 m/s Right Ventricle Aorta AO Root Diam: 3.35 cm Ascending Ao Diam: 2.99 cm Aortic Valve AoV Area (Peak Evaristo): 3.01 cm2, 3.01 cm2 AoV Area (VTI): 2.92 cm2, 2.92 cm2 Peak Velocity(Antegrade Flow): 1.06 m/s Peak Gradient(Antegrade Flow): 4.49 mm[Hg] Mean Velocity(Antegrade Flow): 0.64 m/s Mean Gradient(Antegrade Flow): 1.99 mm[Hg] Velocity Time Integral: 23.40 cm Tricuspid Valve Peak Velocity (Regurgitant Flow): 2.04 m/s Pulmonic Valve Mean Gradient: 1.72 mm[Hg] Mean Velocity: 0.60 m/s Peak Velocity: 0.94 m/s Peak Gradient: 3.56 mm[Hg] Right Atrium Right Atrium Systolic Pressure: 30.16 ml, 30.16 ml Dictated by: Rubio Varela M.D. on 04/02/2025 at 15:03 Approved by: Rubio Varela M.D. on 04/02/2025 at 15:05
--- NOTE | 2025-04-01 11:22 | PC.NURSE ---
Nursing Note Cardiac Stress Test Reviewed: Medication, allergies and patient history reviewed. Stress Test: [ x]? Patient tolerated stress test well. [ ]? Patient unable to tolerate walking on treadmill. Switched to Lexiscan stress test. [x ]? No chest pain noted per patient [ ]? Chest pain that resolved prior to leaving stress lab. [ x]? No dyspnea noted. [ ]? Dyspnea that resolved prior to leaving stress lab. [x ]? Patient left stress lab asymptomatic and hemodynamically stable. [ ]? Patient taken to the Emergency Room due to non-resolving symptoms following stress test. [ x]? Patient achieved target heart rate. [ ]? Patient unable to achieve target heart rate. [ ]? Aminophylline administered as reversal agent to Lexiscan (Regadenoson). [ ]? Nitro administered. Nursing Comments:Patient c/o mild lightheadedness that subsided before leaving the stress lab.
== END 2025-04-01 09:38 | disposition home or self-care (01) ==
LOC: CARD 09:37
PROVIDERS: PCP Nurse Practitioner Family; Visit Provider Internal Medicine Cardiovascular Disease
DX: R07.89 Other chest pain (principal); R42 Dizziness and giddiness
CPT/HCPCS: 93017; 93306